=== PATIENT | male | born 1950 | race Caucasian/White ===

== ENCOUNTER → 2016-11-07 | Outpatient (CLI) | payer MEDICARE ==
[2016-11-07 10:52] LABS: Basophils # (A) 0.1 k/uL (0-0.2); Basophils % (A) 1 %; CH 29.2; CHCM 32.5; Eosinophils # (A) 0.1 k/uL (0-0.7); Eosinophils % (A) 2 %; HDW 2.43; HGB 15.1 gm/dL (13.0-17.5); Luc # (Auto) 0.11; Luc % (Auto) 2; Lymphocytes % (A) 15 %; MCH 28.4 pg (25.0-35.0); MCHC 31.5 g/dL (31.0-37.0); MCV 90.2 fL (80.0-100.0); Mean Platelet Volume 6.8; Monocytes # (A) 0.4 k/uL (0-1.0); Monocytes % (A) 6 %; Neutrophils # (A) 4.9 k/uL (1.3-7.7); Neutrophils % (A) 75 %; RBC 5.32 m/uL (4.30-5.90); RDW 13.5 % (11.5-15.5); WBC 6.6 k/uL (3.8-10.6); WBC (Perox) 7.06
[2016-11-07 12:11] LABS: ALT 22 U/L (21-72); AST 13 U/L (17-59); Alkaline Phosphatase 113 U/L (38-126); Anion Gap 7 mmol/L; Blood Urea Nitrogen 14 mg/dL (9-20); Calcium 9.1 mg/dL (8.4-10.2); Carbon Dioxide 30 mmol/L (22-30); Chloride 107 mmol/L (98-107); Cholesterol 197 mg/dL (<200); Glucose 104 mg/dL (74-99); HDL Cholesterol 28 mg/dL (40-60); Non-African American GFR(MDRD) >60 (>60 ml/min/1.73 sqM); Potassium 4.3 mmol/L (3.5-5.1); Sodium 144 mmol/L (137-145); Total Bilirubin 0.5 mg/dL (0.2-1.3); Total Protein 6.1 g/dL (6.3-8.2); Triglycerides 176 mg/dL (<150)
[2016-11-07 12:39] LABS: Prostate Specific Antigen 1.22 ng/mL (0.00-4.00)
[2016-11-07 12:56] LABS: Vitamin B12 291 pg/mL
[2016-11-07 14:04] LABS: Hemoglobin A1C 5.7 % (4.2-6.1)
== END | disposition home or self-care (01) ==
LOC: LABWHC1 10:03
PROVIDERS: ATTEND Family Medicine
DX: E53.8 Deficiency of other specified B group vitamins (principal); N40.0 Benign prostatic hyperplasia without lower urinary tract symptoms; E78.5 Hyperlipidemia, unspecified; J44.9 Chronic obstructive pulmonary disease, unspecified; R73.01 Impaired fasting glucose
CPT/HCPCS: 36415; 80053; 80061; 82607; 82785; 83036; 84153; 84439; 84443; 85025

== ENCOUNTER → 2017-01-07 | Outpatient (CLI) | payer MEDICARE ==
--- NOTE | 2017-01-07 22:57 | CT ---
EXAMINATION TYPE: CT chest wo con DATE OF EXAM: 01/07/2017 7:15 PM COMPARISON: Prior chest CT April 11, 2016 HISTORY: Shortness of breath, chest pain and cough x [address] DLP: 368.60 mGycm. Automated Exposure Control for Dose Reduction was Utilized. TECHNIQUE: CT scan of the thorax is performed without IV contrast. FINDINGS: LUNGS: Advanced emphysematous change in lung apices and upper lungs is redemonstrated. There is some linear scarring or atelectasis towards the lingula on axial image 41 with additional linear scarring or atelectasis in the right lower lobe posterior aspect. No pleural effusion or pneumothorax is prese nt bilaterally. No concerning new parenchymal nodule or mass is identified. MEDIASTINUM: Lack of IV contrast is noted to limit evaluation for mediastinal and especially hilar ad enopathy. There are no definitive greater than 1 cm hilar or mediastinal lymph nodes. No cardiomega ly or pericardial effusion is seen. Coronary artery calcification is present. OTHER: Spurring and disc space narrowing L1-L2 level is noted. IMPRESSION: Advanced emphysematous change in the upper lungs with some mild linear atelectasis or sca rring in the lower lungs, no suspicious acute pulmonary process is seen.
== END | disposition home or self-care (01) ==
LOC: RADCTMAIN 18:56
PROVIDERS: ATTEND Family Medicine
DX: J67.9 Hypersensitivity pneumonitis due to unspecified organic dust (principal)
CPT/HCPCS: 71250

== ENCOUNTER → 2017-07-12 | Outpatient (CLI) | payer MEDICARE ==
[2017-07-12 11:32] LABS: Blood Urea Nitrogen 16 mg/dL (9-20); Non-African American GFR(MDRD) >60 (>60 ml/min/1.73 sqM)
== END | disposition home or self-care (01) ==
LOC: LABWHC1 10:41
PROVIDERS: ATTEND Physical Medicine & Rehabilitation
DX: M48.06 Spinal stenosis, lumbar region (principal); M77.11 Lateral epicondylitis, right elbow; M41.26 Other idiopathic scoliosis, lumbar region; M51.17 Intervertebral disc disorders with radiculopathy, lumbosacral region; M47.27 Other spondylosis with radiculopathy, lumbosacral region; Z79.01 Long term (current) use of anticoagulants
CPT/HCPCS: 36415; 82565; 84520

== ENCOUNTER → 2017-07-26 | Outpatient (CLI) | payer MEDICARE ==
--- NOTE | 2017-07-26 12:52 | FL ---
EXAMINATION TYPE: FL small bowel follow through DATE OF EXAM: 07/26/2017 COMPARISON: NONE HISTORY: Diarrhea for about 6 months TECHNIQUE: Overhead radiographs fluoroscopic spot imaging was performed. Real-time observation was pe rformed. FINDINGS: Pca view: Preliminary abdominal film was obtained and felt to be noncontributory. Follow-through: Following the oral administration of contrast multiple overhead radiographs were obta ined. Portion of the stomach visualized on this examination is unremarkable. Note is made of a small soft reducing sliding type hiatal hernia with minimal reflux. Tiny diverticulum may be on the fundus of the body visualized on the right lateral overhead radiograph. Small bowel follow-through: Transit time to the colon is 2 hours. There is a 5.4 cm diverticulum with in the distal third portion of the duodenum. Fluoroscopic spot imaging is performed over the terminal ileum. Terminal ileum appears somewhat narro wed and has some nodular appearance. Clinical correlation is recommended for Crohn's disease. Ileal a nd jejunal fold pattern appears normal. Real-time observation was performed. These loops of bowel trang ear freely mobile. IMPRESSION: 1. There is some nodularity within the terminal ileum. Correlate for Crohn's disease. 2. Transit time of 2 hours through the small bowel.
== END | disposition home or self-care (01) ==
LOC: RADFLMAIN 08:51
DX: K63.89 Other specified diseases of intestine (principal); R19.7 Diarrhea, unspecified
CPT/HCPCS: 74250

== ENCOUNTER → 2017-09-06 | Outpatient (CLI) | payer MEDICARE ==
--- NOTE | 2017-09-06 16:49 | US ---
EXAMINATION TYPE: US abdomen complete DATE OF EXAM: 09/06/2017 COMPARISON: CLINICAL HISTORY: R14.0 Abd distension. Gassy, unable to burp, NPO EXAM MEASUREMENTS: Liver Length: 18.0 cm Gallbladder Wall: 0.2 cm CHD: 0.5 cm Spleen: 10.6 cm Right Kidney: 12.0 x 5.7 x 4.6 cm Left Kidney: 10.9 x 4.4 x 5.1 cm Pancreas: Obscured by bowel gas Liver: Upper limits in size. Heterogeneous. Two echogenic lesions seen, nonvascular. 1- right lobe = 1.6 x 1.3 x 1.6 cm. 2- Left lobe = 2.4 x 1.8 x 1.9 cm. Gallbladder: wnl Evidence for sonographic Odell's sign: neg CHD: wnl Spleen: wnl Right Kidney: wnl Left Kidney: Cortex appears lobular Upper IVC: wnl Abd Aorta: Portions obscured by overlying bowel gas IMPRESSION: 1. Hyperechoic lesions within the liver most likely on the basis of hemangiomas. This could be confir med with CT abdomen with contrast or MRI. 2. Remainder of the abdomen ultrasound is unremarkable.
== END | disposition home or self-care (01) ==
LOC: RADUSWWP 06:57
PROVIDERS: ATTEND Internal Medicine Gastroenterology
DX: K76.9 Liver disease, unspecified (principal)
CPT/HCPCS: 76700

== ENCOUNTER → 2017-11-18 | Outpatient (CLI) | payer MEDICARE ==
[2017-11-18 11:55] LABS: Basophils % (A) 0 %; Eosinophils # (A) 0.1 k/uL (0-0.7); Eosinophils % (A) 1 %; HCT 49.6 % (39.0-53.0); HGB 15.6 gm/dL (13.0-17.5); Lymphocytes # (A) 1.5 k/uL (1.0-4.8); Lymphocytes % (A) 17 %; MCH 29.1 pg (25.0-35.0); MCHC 31.5 g/dL (31.0-37.0); MCV 92.5 fL (80.0-100.0); Mean Platelet Volume 6.9; Monocytes # (A) 0.5 k/uL (0-1.0); Monocytes % (A) 5 %; Neutrophils # (A) 6.7 k/uL (1.3-7.7); Neutrophils % (A) 76 %; Platelet Count 334 k/uL (150-450); RBC 5.36 m/uL (4.30-5.90); RDW 14.7 % (11.5-15.5); WBC 8.9 k/uL (3.8-10.6)
[2017-11-18 12:10] LABS: ALT 28 U/L (21-72); AST 14 U/L (17-59); Albumin 3.7 g/dL (3.5-5.0); Alkaline Phosphatase 99 U/L (38-126); Anion Gap 8 mmol/L; Blood Urea Nitrogen 25 mg/dL (9-20); Calcium 9.3 mg/dL (8.4-10.2); Carbon Dioxide 30 mmol/L (22-30); Chloride 105 mmol/L (98-107); Cholesterol 199 mg/dL (<200); Glucose 106 mg/dL (74-99); HDL Cholesterol 25 mg/dL (40-60); LDL Cholesterol,Calculated 141 mg/dL (0-99); Sodium 143 mmol/L (137-145); Total Bilirubin 0.6 mg/dL (0.2-1.3); Total Protein 6.5 g/dL (6.3-8.2); Triglycerides 165 mg/dL (<150)
[2017-11-18 12:40] LABS: Prostate Specific Antigen 0.95 ng/mL (0.00-4.00)
== END | disposition home or self-care (01) ==
LOC: LABWHC1 11:34
PROVIDERS: ATTEND Nurse Practitioner Acute Care
DX: Z00.00 Encounter for general adult medical examination without abnormal findings (principal); N40.0 Benign prostatic hyperplasia without lower urinary tract symptoms; E78.5 Hyperlipidemia, unspecified; E55.9 Vitamin D deficiency, unspecified
CPT/HCPCS: 36415; 80053; 80061; 82306; 84153; 84439; 84443; 85025

== ENCOUNTER → 2018-04-17 | Outpatient (CLI) | payer MEDICARE ==
[2018-04-17 07:26] LABS: Basophils % (A) 0 %; Eosinophils # (A) 0.1 k/uL (0-0.7); Eosinophils % (A) 2 %; HCT 43.4 % (39.0-53.0); HGB 14.4 gm/dL (13.0-17.5); Lymphocytes # (A) 1.7 k/uL (1.0-4.8); Lymphocytes % (A) 23 %; MCH 29.4 pg (25.0-35.0); MCHC 33.1 g/dL (31.0-37.0); MCV 88.8 fL (80.0-100.0); Mean Platelet Volume 6.5; Monocytes # (A) 0.6 k/uL (0-1.0); Monocytes % (A) 8 %; Neutrophils # (A) 4.8 k/uL (1.3-7.7); Neutrophils % (A) 64 %; Platelet Count 227 k/uL (150-450); RBC 4.89 m/uL (4.30-5.90); RDW 13.8 % (11.5-15.5); WBC 7.4 k/uL (3.8-10.6)
[2018-04-17 11:43] LABS: Albumin 3.3 g/dL (3.5-5.0); Calcium 8.9 mg/dL (8.4-10.2); Total Bilirubin 0.2 mg/dL (0.2-1.3); Total Protein 5.7 g/dL (6.3-8.2)
[2018-04-17 11:59] LABS: T4, Free (Free Thyroxine) 0.92 ng/dL (0.78-2.19)
[2018-04-17 12:13] LABS: Prostate Specific Antigen 0.68 ng/mL (0.00-4.00)
== END | disposition home or self-care (01) ==
LOC: LABWHC1 06:34
PROVIDERS: ATTEND Family Medicine
DX: E78.5 Hyperlipidemia, unspecified (principal); F41.9 Anxiety disorder, unspecified; I10 Essential (primary) hypertension; R97.20 Elevated prostate specific antigen [PSA]
CPT/HCPCS: 36415; 80053; 80061; 82550; 82607; 84153; 84439; 84443; 85025

== ENCOUNTER → 2018-06-13 | Outpatient (CLI) | payer MEDICARE ==
[2018-06-13 19:11] LABS: Hemoglobin A1C 6.2 % (4.0-6.0)
== END | disposition home or self-care (01) ==
LOC: LABWHC1 11:16
PROVIDERS: ATTEND Family Medicine
DX: R73.09 Other abnormal glucose (principal)
CPT/HCPCS: 36415; 83036

== ENCOUNTER → 2019-05-13 | Outpatient (CLI) | payer MEDICARE ==
--- NOTE | 2019-05-13 16:17 | US ---
EXAMINATION TYPE: US venous doppler duplex LE BI DATE OF EXAM: 05/13/2019 11:24 AM COMPARISON: NONE CLINICAL HISTORY: R79.1 ABN COAGULATION PROFILE. Elevated ddimer. No hx of blood clots. Not on bloo d thinners. SIDE PERFORMED: Bilateral TECHNIQUE: The lower extremity deep venous system is examined utilizing real time linear array sonog blake with graded compression, doppler sonography and color-flow sonography. VESSELS IMAGED: External Iliac Vein (EIV) Common Femoral Vein Deep Femoral Vein Greater Saphenous Vein * Femoral Vein Popliteal Vein Small Saphenous Vein * Proximal Calf Veins (* superficial vessels) Right Leg: Negative for DVT Left Leg: Negative for DVT IMPRESSION: 1. Bilateral lower extremity ultrasound negative for deep venous thrombosis.
== END | disposition home or self-care (01) ==
LOC: RADUSWWP 10:58
PROVIDERS: ATTEND Family Medicine
DX: R79.1 Abnormal coagulation profile (principal)
CPT/HCPCS: 93970

== ENCOUNTER 2019-06-12 14:54 | Inpatient (IN) | payer MEDICARE ==
[2019-06-12] MEDS ORDERED: HEPARIN SODIUM,PORCINE 10,000 UNIT/ML 1 ML VIAL IV ONE (15:03)
[2019-06-12] MEDS ORDERED: HEPARIN SODIUM,PORCINE 5,000 UNIT/ML 1 ML VIAL IV PRN (15:03)
[2019-06-12] MEDS ORDERED: NITROGLYCERIN SL TABS 0.4 MG TAB SUBLINGUAL PRN (15:03)
[2019-06-12] MEDS ORDERED: SODIUM CHLORIDE 0.9% 1,000 ML IV STA (15:03)
[2019-06-12] MEDS ORDERED: ASPIRIN 81 MG PO STA (15:14)
--- NOTE | 2019-06-12 15:22 | ED ---
SOB HPI - General Chief Complaint: Shortness of Breath Stated Complaint: Abnormal CT results Source: patient, RN notes reviewed, old records reviewed Mode of arrival: ambulatory Limitations: no limitations - History of Present Illness Initial Comments: This is a 68-year-old male the ER for evaluation. Patient has history of COPD coming in with what he fell is pneumonia but was sent to CT by primary care for evaluation. Patient does have positive pneumonia also has positive PE. Patient denies any pain currently. No recent travel history no sick contacts no prior history of PE. No fevers cough or congestion. MD Complaint: shortness of breath, chest pain -: days(s) Radiation: back Severity: mild Severity scale (1-10): 2 Quality: aching Consistency: constant Improves With: oxygen Worsens With: exertion, movement Known History Of: COPD Associated Symptoms: chest pain, pain with inspiration, cough Treatments Prior to Arrival: none - Related Data Home Medications Medication Instructions Recorded Confirmed Finasteride [Proscar] 5 mg PO DAILY 10/21/14 06/12/19 Gabapentin [Neurontin] 600 mg PO QA 10/21/14 06/12/19 HYDROcodone/APAP 7.5-325MG [[place] 1 tab PO Q12HR PRN 10/21/14 06/12/19 7.5-325] Lansoprazole 30 mg PO DAILY 10/21/14 06/12/19 Tamsulosin HCl [Flomax] 0.4 mg PO BID 10/21/14 06/12/19 ALPRAZolam [Xanax] 0.25 mg PO HS 04/08/16 06/12/19 Albuterol Inhaler [Ventolin Hfa 2 puff INHALATION RT-Q6H PRN 04/08/16 06/12/19 Inhaler] Losartan/Hydrochlorothiazide 1 tab PO DAILY 04/08/16 06/12/19 [Losartan-Hctz 100-25 mg Tab] Gabapentin 1,200 mg PO HS 04/09/16 06/12/19 traZODone HCL 75 mg PO 04/09/16 06/12/19 ARIPiprazole [Abilify] 5 mg PO DAILY 06/12/19 06/12/19 Albuterol Nebulized [Ventolin 2.5 mg INHALATION RT-Q6H PRN 06/12/19 06/12/19 Nebulized] Furosemide [Lasix] 40 mg PO DAILY 06/12/19 06/12/19 Previous Rx's Medication Instructions Recorded Butalb/APAP/Caff 50-325-40Mg 1 tab PO Q4H PRN #30 tablet 04/14/16 [Fioricet 50-325-40] Allergies Allergy/AdvReac Type Severity Reaction Status Date / Time No Known Allergies Allergy Verified 06/12/19 15:16 Review of Systems ROS Statement: Those systems with pertinent positive or pertinent negative responses have been documented in the HPI. ROS Other: All systems not noted in ROS Statement are negative. Past Medical History Past Medical History: COPD, CVA/TIA, GERD/Reflux, Hyperlipidemia, Hypertension, Osteoarthritis (OA), Prostate Disorder Additional Past Medical History / Comment(s): back pain; restless leg syndrome; stroke about two years ago, TIA, hard of hearing swish and the right side, colonic polyps, diverticulosis. History of Any Multi-Drug Resistant Organisms: None Reported Past Surgical History: Hernia Repair, Orthopedic Surgery Additional Past Surgical History / Comment(s): sinus surgery, colonoscopy and EGD this year that showed a colonic polyps and diverticulosis. Past Anesthesia/Blood Transfusion Reactions: No Reported Reaction Past Psychological History: No Psychological Hx Reported Smoking Status: Former smoker Past Alcohol Use History: None Reported, Occasional Past Drug Use History: None Reported - Past Family History Father History Unknown: Yes Family Medical History: No Reported History, Unable to Obtain (Patient is adopted and does not know much about his family) Mother History Unknown: Yes General Exam Limitations: no limitations General appearance: alert, in no apparent distress Head exam: Present: atraumatic, normocephalic, normal inspection Eye exam: Present: normal appearance, PERRL, EOMI. Absent: scleral icterus, conjunctival injection, periorbital swelling ENT exam: Present: normal exam, mucous membranes moist Neck exam: Present: normal inspection. Absent: tenderness, meningismus, lymp hadenopathy Respiratory exam: Present: normal lung sounds bilaterally. Absent: respiratory distress, wheezes, rales, rhonchi, stridor Cardiovascular Exam: Present: regular rate, normal rhythm, normal heart sounds. Absent: systolic murmur, diastolic murmur, rubs, gallop, clicks GI/Abdominal exam: Present: soft, normal bowel sounds. Absent: distended, tenderness, guarding, rebound, rigid Extremities exam: Present: normal inspection, full ROM, normal capillary refill. Absent: tenderness, pedal edema, joint swelling, calf tenderness Back exam: Present: normal inspection Neurological exam: Present: alert, oriented X3, CN II-XII intact Psychiatric exam: Present: normal affect, normal mood Skin exam: Present: warm, dry, intact, normal color. Absent: rash Course Vital Signs 06/12/19 14:56 Temperature 97.4 F L Pulse Rate 87 Respiratory 18 Rate Blood Pressure 124/79 O2 Sat by Pulse 91 L Oximetry - Reevaluation(s) Reevaluation #1: 06/12/19 15:20 Medical record is reviewed as well as outpatient computed tomography scan Reevaluation #2: 06/12/19 15:[address] Giordano regarding symptoms Reevaluation #3: 06/12/19 16:15 Patient spoke with at length made aware of symptoms Medical Decision Making - Medical Decision Making 18 male the ER for evaluation sent in from outpatient CAT scan for evaluation of PE patient does have positive PE with possible underlying pneumonia - EKG Data -: EKG Interpreted by Me (EKG shows sinus tachycardia rate 103, ID 134, QRS 76, QTc 420) - Radiology Data Radiology results: report reviewed (CT is positive for PE and pneumonia), image reviewed Critical Care Time Critical Care Time: Yes Total Critical Care Time: 31 Disposition Clinical Impression: Acute exacerbation of chronic obstructive airways disease, Acute pulmonary embolism, Community acquired pneumonia Disposition: ADMITTED IP TO THIS HOSP Condition: Serious Is patient prescribed a controlled substance at d/c from ED?: No
[2019-06-12] MEDS ORDERED: AZITHROMYCIN 500 MG in SODIUM CHLORIDE 0.9% 250 ML IVPB STA (16:16)
[2019-06-12] MEDS ORDERED: ALBUTEROL NEBULIZED 2.5 MG/3 ML INHALATION PRN (16:16)
[2019-06-12] MEDS ORDERED: PNEUMONIA PROTOCOL UTILIZED 1 EACH MISC PO PRN (16:16)
[2019-06-12] MEDS ORDERED: IPRATROPIUM-ALBUTEROL 3 ML NEB INHALATION STA (16:16)
[2019-06-12 16:26] LABS: Basophils % (A) 0 %; Eosinophils # (A) 0.1 k/uL (0-0.7); Eosinophils % (A) 2 %; HCT 46.3 % (39.0-53.0); Lymphocytes # (A) 0.6 k/uL (1.0-4.8); Lymphocytes % (A) 7 %; MCH 29.2 pg (25.0-35.0); MCHC 32.5 g/dL (31.0-37.0); MCV 89.8 fL (80.0-100.0); Mean Platelet Volume 6.4; Monocytes # (A) 0.2 k/uL (0-1.0); Monocytes % (A) 2 %; Neutrophils # (A) 8.1 k/uL (1.3-7.7); Neutrophils % (A) 89 %; Platelet Count 246 k/uL (150-450); RBC 5.16 m/uL (4.30-5.90); RDW 13.4 % (11.5-15.5)
[2019-06-12] MEDS: HEPARIN SOD,PORK IN 0.45% NACL 25,000 UNIT in 0.45% NACL 1 250ML.BAG IV SCH (16:31)
[2019-06-12 16:34] LABS: ALT 9 U/L (21-72); AST 13 U/L (17-59); African American GFR (CKD) >90 (>60 ml/min/1.73 sqM); Albumin 3.5 g/dL (3.5-5.0); Alkaline Phosphatase 101 U/L (38-126); Anion Gap 6 mmol/L; Blood Urea Nitrogen 25 mg/dL (9-20); Calcium 8.7 mg/dL (8.4-10.2); Carbon Dioxide 26 mmol/L (22-30); Chloride 107 mmol/L (98-107); Glucose 146 mg/dL (74-99); Non-African American GFR(CKD) 88 (>60 ml/min/1.73 sqM); Potassium 4.2 mmol/L (3.5-5.1); Sodium 139 mmol/L (137-145); Total Bilirubin 0.3 mg/dL (0.2-1.3); Total Protein 6.3 g/dL (6.3-8.2)
[2019-06-12 16:48] LABS: D-Dimer 1.33 mg/L FEU (<0.60); INR 0.9 (<1.2); Partial Thromboplastin Time 22.6 sec (22.0-30.0); Prothrombin Time 9.6 sec (9.0-12.0)
[2019-06-12] MEDS ORDERED: methylPREDNISolone SOD SUCCI 125 MG/2 ML VIAL IV STA (17:12)
[2019-06-12 18:11] VITALS: BMI 55.3
[2019-06-12] MEDS: SODIUM CHLORIDE 0.9% 1,000 ML IV SCH (18:23)
--- NOTE | 2019-06-12 18:47 | P.CNPUL ---
History of Present Illness Consult date: 06/12/19 Reason for consult: pneumonia, pulmonary embolism History of present illness: This 68-year-old male patient known to me due to his advanced COPD with also previous history of pneumothorax back in 2016 requiring a Thoravent insertion. The patient came in thinking that he may be having a pneumonia as the patient was having increased shortness of breath. A CT angiogram was done in the emergency department and the patient was found to have a right lower lobe segmental and subsegmental pulmonary artery embolism. There is also concern of a pneumonia involving in the medial segment of the right lower lobe. The patient was started on a, which Rocephin and Zithromax. The patient was started on IV heparin. The white cell count is at 9.0. The rest of the blood work and electrodes are all within normal limits. The patient has had no fever and pulse oxing 94% liter of oxygen nasal cannula. Review of Systems Constitutional Constitutional: no fever, no night sweats, no significant weight gain, no significant weight loss, exercise intolerance Eyes Eyes: no dry eyes, no vision change, no irritation ENMT Ears: no difficulty hearing, no ear pain Nose: no frequent nosebleeds, no nose problems, no sinus problems Mouth/Throat: no sore throat, no bleeding gums, no snoring, no dry mouth, no mouth ulcers, no oral abnormalities, no teeth problems Cardiovascular Cardiovascular: no chest pain, no arm pain on exertion, no shortness of breath when lying down, no palpitations, no known heart murmur, shortness of breath when walking Respiratory Respiratory: no cough, no wheezing, no coughing up blood, no sleep apnea, shortness of breath Gastrointestinal Gastrointestinal: no abdominal pain, no nausea, no vomiting, no constipation, normal appetite, no diarrhea, not vomiting blood, no dyspepsia, no GERD Genitourinary Genitourinary: no incontinence, no difficulty urinating, no hematuria, no increased frequency Musculoskeletal Musculoskeletal: no muscle aches, no muscle weakness, no arthralgias/joint pain, no back pain, no swelling in the extremities Integumentary Skin: no abnormal mole, no jaundice, no rashes, no laceration Neurologic Neurologic: no loss of consciousness, no weakness, no numbness, no seizures, no dizziness, no migraines, no headaches, no tremor Psychiatric Psych: no depression, no sleep disturbances, feeling safe in a relationship, no alcohol abuse, no anxiety, no hallucinations, no suicidal thoughts Endocrine Endocrine: fatigue Hematologic/Lymphatic Hematologic/Lymphatic no swollen glands, no bruising, no excessive bleeding Allergic/Immunologic Allergy/Immunologic: no runny nose, no sinus pressure, no itching, no hives, no frequent sneezing Past Medical History Past Medical History: COPD, CVA/TIA, GERD/Reflux, Hyperlipidemia, Hypertension, Osteoarthritis (OA), Prostate Disorder Additional Past Medical History / Comment(s): Previous history of a pneumothorax requiring a Thoravent insertion back in 2016, COPD back pain; restless leg syndrome; stroke about two years ago, TIA, hard of hearing right side, colonic polyps, diverticulosis. History of Any Multi-Drug Resistant Organisms: None Reported Past Surgical History: Hernia Repair, Orthopedic Surgery Additional Past Surgical History / Comment(s): sinus surgery, colonoscopy and EGD this year that showed a colonic polyps and diverticulosis. Past Anesthesia/Blood Transfusion Reactions: No Reported Reaction Past Psychological History: No Psychological Hx Reported Smoking Status: Former smoker ([id number] smoking history) Past Alcohol Use History: None Reported, Occasional Past Drug Use History: None Reported - Past Family History Father History Unknown: Yes Family Medical History: No Reported History, Unable to Obtain (Patient is adopted and does not know much about his family) Mother History Unknown: Yes Medications and Allergies Home Medications Medication Instructions Recorded Confirmed Type Finasteride [Proscar] 5 mg PO DAILY 10/21/14 06/12/19 History Gabapentin [Neurontin] 600 mg PO QAM 10/21/14 06/12/19 History HYDROcodone/APAP 7.5-325MG [[place] 1 tab PO Q12HR PRN 10/21/14 06/12/19 History 7.5-325] Lansoprazole 30 mg PO DAILY 10/21/14 06/12/19 History Tamsulosin HCl [Flomax] 0.4 mg PO BID 10/21/14 06/12/19 History ALPRAZolam [Xanax] 0.25 mg PO HS 04/08/16 06/12/19 History Albuterol Inhaler [Ventolin Hfa 2 puff INHALATION RT-Q6H PRN 04/08/16 06/12/19 History Inhaler] Losartan/Hydrochlorothiazide 1 tab PO DAILY 04/08/16 06/12/19 History [Losartan-Hctz 100-25 mg Tab] Gabapentin 1,200 mg PO HS 04/09/16 06/12/19 History traZODone HCL 75 mg PO HS 04/09/16 06/12/19 History Butalb/APAP/Caff 50-325-40Mg 1 tab PO Q4H PRN #30 tablet 04/14/16 06/12/19 Rx [Fioricet 50-325-40] ARIPiprazole [Abilify] 5 mg PO DAILY 06/12/19 06/12/19 History Albuterol Nebulized [Ventolin 2.5 mg INHALATION RT-Q6H PRN 06/12/19 06/12/19 History Nebulized] Furosemide [Lasix] 40 mg PO DAILY 06/12/19 06/12/19 History Allergies Allergy/AdvReac Type Severity Reaction Status Date / Time No Known Allergies Allergy Verified 06/12/19 15:16 Physical Exam Vitals: Vital Signs Temp Pulse Resp BP Pulse Ox 06/12/19 16:25 83 16 134/86 94 L 06/12/19 14:56 97.4 F L 87 18 124/79 91 L Intake and Output 06/12/19 06/12/19 06/12/19 06:59 14:59 22:59 Other: Weight 81.647 kg General Appearance no diaphoresis, no respiratory distress, speech not interrupted by breaths, no dyspnea, no pallor, not cachectic, well nourished, appears well Head exam was generally normal. There was no scleral icterus or corneal arcus. Mucous membranes were moist. HEENT no pursed lip breathing, no jugular venous distention, no mucous membrane cyanosis, no perioral cyanosis, mallampati classification: class 1 Chest no barrel chest, no retractions, no sternocleidomastoid muscle contractions, no supraclavicular retractions, no intercostal retractions, no decreased air movement, no rhonchi, no hyperinflation, prolonged expiratory wheezing, decreased air movement Heart no right ventricular heave, no distant heart sounds, no s3 gallop GI bowel sounds: hyperactive (borborygmi), bowel sounds: diminished or absent Extremities no cyanosis, no clubbing, no edema, my normal extremities Neurologic no decreased mental status, no somnolence, no confusion Examination of the skin revealed no evidence of significant rashes, suspicious appearing nevi or other concerning lesions. Results - Laboratory Findings CBC and BMP: 06/12/19 16:13 06/12/19 16:13 Abnormal lab findings: Abnormal Labs 06/12/19 06/12/19 16:13 16:13 Neutrophils # 8.1 H Lymphocytes # 0.6 L BUN 25 H Glucose 146 H AST 13 L ALT 9 L - Diagnostic Findings CT scan - chest: image reviewed Assessment and Plan Plan: 1 right lower lobe pneumonia medial basilar segment of the right lower lobe. Doubt malignancy 2 questionable pulmonary embolism involving segmental and subsegmental branches of the right lower lobe pulmonary artery 3 advanced COPD with bullous changes involving the upper lobes with an FEV1 of 64% of predicted 4 previous history of right-sided pneumothorax requiring a Thoravent insertion and subsequent removal 5 hypertension 6 hyperlipidemia 7 BPH 8 TIA/stroke approximately 2 years ago 9 diverticulosis and history of colonic polyps Plan Obtain Doppler of the lower extremities. Obtain d-dimer is. Continued IV heparin. Continue antibiotic coverage. We'll continue to follow.
[2019-06-12] MEDS: IPRATROPIUM-ALBUTEROL 3 ML NEB INHALATION SCH (19:25)
[2019-06-12] MEDS ORDERED: traZODone HCL 50 MG TAB PO SCH (22:30)
[2019-06-12] MEDS ORDERED: LOSARTAN-HCTZ 50-12.5 MG 1 EACH TAB PO SCH (22:30)
[2019-06-12] MEDS: HYDROcodone/APAP 7.5-325MG 1 EACH TAB PO PRN (22:45)
[2019-06-12] MEDS: TAMSULOSIN 0.4 MG CAP.ER.24H PO SCH (22:45)
[2019-06-12] MEDS: ALPRAZolam 0.25 MG TAB PO SCH (22:46)
[2019-06-12] MEDS: FINASTERIDE 5 MG TAB PO SCH (22:49)
[2019-06-13] MEDS: methylPREDNISolone SOD SUCCI 125 MG/2 ML VIAL IV SCH ×5 (00:25→23:31)
[2019-06-13] MEDS: GABAPENTIN 400 MG CAP PO SCH ×2 (00:25→21:16)
[2019-06-13] MEDS: BUTALB/APAP/CAFF 50-325-40MG TAB PO PRN (04:18)
[2019-06-13 06:22] LABS: Glucose,Whole Blood 168 mg/dL (75-99)
[2019-06-13] MEDS: INSULIN ASPART (NovoLOG) 100 UNIT/ML VIAL SQ SCH ×4 (06:23→21:15)
[2019-06-13 06:40] LABS: Basophils % (A) 0 %; Eosinophils # (A) 0.1 k/uL (0-0.7); Eosinophils % (A) 1 %; HCT 45.9 % (39.0-53.0); HGB 15.1 gm/dL (13.0-17.5); Lymphocytes # (A) 0.9 k/uL (1.0-4.8); Lymphocytes % (A) 5 %; MCH 29.5 pg (25.0-35.0); MCHC 32.9 g/dL (31.0-37.0); MCV 89.4 fL (80.0-100.0); Mean Platelet Volume 6.7; Monocytes # (A) 0.2 k/uL (0-1.0); Monocytes % (A) 1 %; Neutrophils # (A) 16.4 k/uL (1.3-7.7); Neutrophils % (A) 93 %; Platelet Count 256 k/uL (150-450); RBC 5.13 m/uL (4.30-5.90); WBC 17.6 k/uL (3.8-10.6)
[2019-06-13 06:44] LABS: INR 0.9 (<1.2); Partial Thromboplastin Time 49.4 sec (22.0-30.0); Prothrombin Time 10.2 sec (9.0-12.0)
[2019-06-13 07:01] LABS: African American GFR (CKD) >90 (>60 ml/min/1.73 sqM); Anion Gap 6 mmol/L; Blood Urea Nitrogen 23 mg/dL (9-20); Calcium 9.2 mg/dL (8.4-10.2); Carbon Dioxide 25 mmol/L (22-30); Chloride 109 mmol/L (98-107); Cholesterol 229 mg/dL (<200); Glucose 178 mg/dL (74-99); HDL Cholesterol 35 mg/dL (40-60); LDL Cholesterol,Calculated 169 mg/dL (0-99); Non-African American GFR(CKD) >90 (>60 ml/min/1.73 sqM); Sodium 140 mmol/L (137-145); Triglycerides 124 mg/dL (<150)
--- NOTE | 2019-06-13 07:09 | XR ---
EXAMINATION TYPE: XR chest 2V DATE OF EXAM: 06/13/2019 HISTORY: pneumonia. REFERENCE: Previous study dated 04/14/2016. FINDINGS: Lung volumes are prominent. There is bullous change present in the right lung. There is bib asilar atelectasis. The heart is not enlarged. There is chronic blunting of the right CP angle. IMPRESSION: 1. COPD WITH BULLOUS CHANGE IN THE RIGHT LUNG. 2. BIBASILAR ATELECTASIS.
[2019-06-13] MEDS: IPRATROPIUM-ALBUTEROL 3 ML NEB INHALATION SCH ×4 (07:58→19:19)
[2019-06-13] MEDS: TAMSULOSIN 0.4 MG CAP.ER.24H PO SCH ×2 (08:16→21:16)
[2019-06-13] MEDS: ARIPiprazole 5 MG TAB PO SCH ×2 (08:16→10:00)
[2019-06-13] MEDS: FUROSEMIDE 40 MG TAB PO SCH (08:16)
[2019-06-13] MEDS: ASPIRIN 325 MG TAB PO SCH (08:16)
[2019-06-13] MEDS: GABAPENTIN 300 MG CAP PO SCH (08:16)
[2019-06-13] MEDS: HYDROcodone/APAP 7.5-325MG 1 EACH TAB PO PRN (08:17)
[2019-06-13] MEDS: HEPARIN SOD,PORK IN 0.45% NACL 25,000 UNIT in 0.45% NACL 1 250ML.BAG IV SCH (08:20)
[2019-06-13] MEDS ORDERED: FINASTERIDE 5 MG TAB PO SCH (09:00)
--- NOTE | 2019-06-13 09:27 | US ---
EXAMINATION TYPE: US venous doppler duplex LE DATE OF EXAM: 06/13/2019 8:30 AM COMPARISON: Previous study dated 05/13/2019. CLINICAL HISTORY: PE. No swelling or h/o dvt, leg always hurt, possible PE SIDE PERFORMED: Bilateral TECHNIQUE: The lower extremity deep venous system is examined utilizing real time linear array sonog blake with graded compression, doppler sonography and color-flow sonography. VESSELS IMAGED: External Iliac Vein (EIV) Common Femoral Vein Deep Femoral Vein Greater Saphenous Vein * Femoral Vein Popliteal Vein Small Saphenous Vein * Proximal Calf Veins (* superficial vessels) Right Leg: Appears negative for DVT Left Leg: Appears negative for DVT, filling defect noted at left CFV valve No popliteal fossa lesion is seen. IMPRESSION: THIS EXAMINATION IS NEGATIVE FOR DVT IN BOTH LEGS.
--- NOTE | 2019-06-13 11:17 | P.HPIM ---
History of Present Illness H&P Date: 06/13/19 Chief Complaint: Shortness of breath This is 68 years old male who presented to the emergency department with worsening shortness breath. Patient is home oxygen dependent was diagnosed with portal bullous emphysema long time ago and has been followed by pulmonary outpatient who noticed worsening shortness of breath so slowly and gradually patient was having fatigue and weakness and productive cough for yellow sputum and decided to come into the emergency department where computed tomography scan was done and showed possible pulmonary embolism and right lower lobe pneumonia. Patient was started on antibiotics, heparin drip and placed on the medical floor for further evaluation. Patient is denying tobacco alcohol or drug abuse stated that he is at least 50% improved since yesterday. Patient tried all the conservative management at home with breathing treatment R increasing oxygen without improvement in his shortness breath and decided to come into the emergen cy department. Patient stated that he's compliment with his medication and doctors follow-up Review of Systems All 14 systems reviewed and negative except as above Past Medical History Past Medical History: COPD, CVA/TIA, GERD/Reflux, Hyperlipidemia, Hypertension, Osteoarthritis (OA), Prostate Disorder Additional Past Medical History / Comment(s): Previous history of a pneumothorax requiring a Thoravent insertion back in 2016, COPD back pain; restless leg syndrome; stroke about two years ago, TIA, hard of hearing right side, colonic polyps, diverticulosis. History of Any Multi-Drug Resistant Organisms: None Reported Past Surgical History: Hernia Repair, Orthopedic Surgery Additional Past Surgical History / Comment(s): sinus surgery, colonoscopy and EGD this year that showed a colonic polyps and diverticulosis. Past Anesthesia/Blood Transfusion Reactions: No Reported Reaction Past Psychological History: No Psychological Hx Reported Smoking Status: Former smoker (94-pzqb-pore smoking history) Past Alcohol Use History: None Reported, Occasional Past Drug Use History: None Reported - Past Family History Father History Unknown: Yes Family Medical History: No Reported History, Unable to Obtain (Patient is adopt ed and does not know much about his family) Mother History Unknown: Yes Medications and Allergies Home Medications Medication Instructions Recorded Confirmed Type Finasteride [Proscar] 5 mg PO DAILY 10/21/14 06/12/19 History Gabapentin [Neurontin] 600 mg PO QAM 10/21/14 06/12/19 History HYDROcodone/APAP 7.5-325MG [Wyckoff 1 tab PO Q12HR PRN 10/21/14 06/12/19 History 7.5-325] Lansoprazole 30 mg PO DAILY 10/21/14 06/12/19 History Tamsulosin HCl [Flomax] 0.4 mg PO BID 10/21/14 06/12/19 History ALPRAZolam [Xanax] 0.25 mg PO HS 04/08/16 06/12/19 History Albuterol Inhaler [Ventolin Hfa 2 puff INHALATION RT-Q6H PRN 04/08/16 06/12/19 History Inhaler] Losartan/Hydrochlorothiazide 1 tab PO DAILY 04/08/16 06/12/19 History [Losartan-Hctz 100-25 mg Tab] Gabapentin 1,200 mg PO HS 04/09/16 06/12/19 History traZODone HCL 75 mg PO HS 04/09/16 06/12/19 History Butalb/APAP/Caff 50-325-40Mg 1 tab PO Q4H PRN #30 tablet 04/14/16 06/12/19 Rx [Fioricet 50-325-40] ARIPiprazole [Abilify] 5 mg PO DAILY 06/12/19 06/12/19 History Albuterol Nebulized [Ventolin 2.5 mg INHALATION RT-Q6H PRN 06/12/19 06/12/19 History Nebulized] Furosemide [Lasix] 40 mg PO DAILY 06/12/19 06/12/19 History Allergies Allergy/AdvReac Type Severity Reaction Status Date / Time No Known Allergies Allergy Verified 06/12/19 15:16 Physical Exam Vitals: Vital Signs Temp Pulse Pulse Resp BP BP Pulse Ox 06/13/19 08:13 100 06/13/19 08:00 97.5 F L 100 102 H 18 142/96 90 L 06/13/19 04:00 97.9 F 101 H 18 129/86 06/13/19 00:00 97.9 F 105 H 18 148/100 06/12/19 20:00 97.9 F 106 H 18 162/107 06/12/19 19:33 96 06/12/19 19:27 95 06/12/19 16:34 97.6 F 82 18 131/94 06/12/19 16:25 83 16 134/86 94 L 06/12/19 14:56 97.4 F L 87 18 124/79 91 L Intake and Output 06/12/19 06/13/19 06/13/19 22:59 06:59 14:59 Intake Total 240 472.442 Output Total 950 240 Balance 240 -950 232.442 Intake: Intake, IV Titration 232.442 Amount Heparin Sod,Pork in 0.45% 232.442 NaCl 25,000 unit In 0.45 % NaCl 1 250ml.bag @ 18 UNITS/KG/HR 14.696 mls/hr IV .Q17H1M [facility] Rx#: [id number] Oral 240 240 Output: Urine 950 240 Other: Voiding Method Urinal Toilet Urinal # Voids 2 Weight 83 kg Gen.: in stated age, no acute distress Heart: Normal S1-S2 Lungs: Diminished bilaterally with decreased air entry Abdomen: Soft, no tenderness, positive bowel sounds in all 4 quadrant no guarding or rebound Skin: No new rash Psych: Alert and oriented 3 Neuro: No focal deficit Results CBC & Chem 7: 06/13/19 06:19 06/13/19 06:19 Labs: Abnormal Lab Results - Last 24 Hours (Table) 06/12/19 06/12/19 06/12/19 Range/Units 16:13 16:13 16:13 WBC (3.8-10.6) k/uL Neutrophils # 8.1 H (1.3-7.7) k/uL Lymphocytes # 0.6 L (1.0-4.8) k/uL APTT (22.0-30.0) sec D-Dimer 1.33 H (<0.60) mg/L FEU Chloride (98-107) mmol/L BUN 25 H (9-20) mg/dL Glucose 146 H (74-99) mg/dL POC Glucose (mg/dL) (75-99) mg/dL AST 13 L (17-59) U/L ALT 9 L (21-72) U/L Cholesterol (<200) mg/dL LDL Cholesterol, Calc (0-99) mg/dL HDL Cholesterol (40-60) mg/dL 06/12/19 06/13/19 06/13/19 Range/Units 21:20 06:19 06:19 WBC 17.6 H (3.8-10.6) k/uL Neutrophils # 16.4 H (1.3-7.7) k/uL Lymphocytes # 0.9 L (1.0-4.8) k/uL APTT 60.3 H 49.4 H (22.0-30.0) sec D-Dimer (<0.60) mg/L FEU Chloride (98-107) mmol/L BUN (9-20) mg/dL Glucose (74-99) mg/dL POC Glucose (mg/dL) (75-99) mg/dL AST (17-59) U/L ALT (21-72) U/L Cholesterol (<200) mg/dL LDL Cholesterol, Calc (0-99) mg/dL HDL Cholesterol (40-60) mg/dL 06/13/19 06/13/19 Range/Units 06:19 06:21 WBC (3.8-10.6) k/uL Neutrophils # (1.3-7.7) k/uL Lymphocytes # (1.0-4.8) k/uL APTT (22.0-30.0) sec D-Dimer (<0.60) mg/L FEU Chloride 109 H (98-107) mmol/L BUN 23 H (9-20) mg/dL Glucose 178 H (74-99) mg/dL POC Glucose (mg/dL) 168 H (75-99) mg/dL AST (17-59) U/L ALT (21-72) U/L Cholesterol 229 H (<200) mg/dL LDL Cholesterol, Calc 169 H (0-99) mg/dL HDL Cholesterol 35 L (40-60) mg/dL Thrombosis Risk Factor Assmnt - Choose All That Apply Any of the Below Risk Factors Present?: Yes Each Factor Represents 1 point: Abnormal pulmonary function (COPD) Each Risk Factor Represents 2 Points: Age 61-74 years Thrombosis Risk Factor Assessment Total Risk Factor Score: 3 Thrombosis Risk Factor Assessment Level: Moderate Risk Assessment and Plan Assessment: 1. Acute pulmonary embolism area 2. Community-acquired pneumonia. 3. Leukocytosis. 4. Acute on chronic respiratory failure with hypoxia he had 5. Hypertension. 6. Hyperlipidemia. 7. Benign prostatic hypertrophy. 8. Advanced COPD. Plan discussed with the pulmonary and patient at the bedside where we would like to continue with IV antibiotics for 24 hours if patient's continued to improve in the morning we can switch him to Levaquin and consider discharging based on clinical progress. Patient is hemodynamically stable without hypoxia tolerating heparin drip that I would like to continue for 24 hours consider switching patient's to liquids 5 mg twice daily recommended by pulmonary without bolus to be done outpatient and followed in the office. Patient understood risk and benefit from current treatment and specially from blood thinner and he is agreeable to the current treatment plan. We'll resume his home medication with holding parameters. Continue aggressive pulmonary hygiene. Would continue with supplemental oxygen. We'll consider discharge based on clinical progress
[2019-06-13 12:10] LABS: Glucose,Whole Blood 160 mg/dL (75-99)
--- NOTE | 2019-06-13 12:22 | P.PN ---
Subjective Progress Note Date: 06/13/19 This 68-year-old male patient known to me due to his advanced COPD with also previous history of pneumothorax back in 2016 requiring a Thoravent insertion. The patient came in thinking that he may be having a pneumonia as the patient was having increased shortness of breath. A CT angiogram was done in the emergency department and the patient was found to have a right lower lobe segmental and subsegmental pulmonary artery embolism. There is also concern of a pneumonia involving in the medial segment of the right lower lobe. The patient was started on a, which Rocephin and Zithromax. The patient was started on IV heparin. The white cell count is at 9.0. The rest of the blood work and electrodes are all within normal limits. The patient has had no fever and pulse oxing 94% liter of oxygen nasal cannula. On 06/13/2019 clinically the patient is feeling better. Is less short of breath is on IV heparin. He is also on antibiotics. He is being treated for questionable pulmonary embolism and limited right lower lobe pneumonia. Doppler of the lower extremities was negative. D-dimer was slightly elevated. No chest pain. No fever. No chills. White cell count is up to 17. Objective - Vital Signs Vital signs: Vital Signs Temp 97.4 F L 06/13/19 11:50 Pulse 96 06/13/19 12:20 Resp 20 06/13/19 11:50 BP 144/98 06/13/19 11:50 Pulse Ox 90 L 06/13/19 11:50 Intake & Output 06/12/19 06/13/19 06/13/19 18:59 06:59 18:59 Intake Total 240 472.442 Output Total 950 240 Balance -710 232.442 Weight 81.647 kg 83 kg Intake: Intake, IV Titration 232.442 Amount Heparin Sod,Pork in 0.45% 232.442 NaCl 25,000 unit In 0.45 % NaCl 1 250ml.bag @ 18 UNITS/KG/HR 14.696 mls/hr IV .Q17H1M [facility] Rx#: [id number] Oral 240 240 Output: Urine 950 240 Other: Voiding Method Urinal Toilet Urinal # Voids 2 - Exam General Appearance no diaphoresis, no respiratory distress, speech not interrupted by breaths, no dyspnea, no pallor, not cachectic, well nourished, appears well Head exam was generally normal. There was no scleral icterus or corneal arcus. Mucous membranes were moist. HEENT no pursed lip breathing, no jugular venous distention, no mucous membrane cyanosis, no perioral cyanosis, mallampati classification: class 1 Chest no barrel chest, no retractions, no sternocleidomastoid muscle contractions, no supraclavicular retractions, no intercostal retractions, no decreased air movement, no rhonchi, no hyperinflation, prolonged expiratory wheezing, decreased air movement Heart no right ventricular heave, no distant heart sounds, no s3 gallop GI bowel sounds: hyperactive (borborygmi), bowel sounds: diminished or absent Extremities no cyanosis, no clubbing, no edema, my normal extremities Neurologic no decreased mental status, no somnolence, no confusion Examination of the skin revealed no evidence of significant rashes, suspicious appearing nevi or other concerning lesions. - Labs CBC & Chem 7: 06/13/19 06:06/13/19:19 Labs: Abnormal Lab Results - Last 24 Hours (Table) 06/12/19 06/12/19 06/12/19 Range/Units 16:13 16:13 16:13 WBC (3.8-10.6) k/uL Neutrophils # 8.1 H (1.3-7.7) k/uL Lymphocytes # 0.6 L (1.0-4.8) k/uL APTT (22.0-30.0) sec D-Dimer 1.33 H (<0.60) mg/L FEU Chloride (98-107) mmol/L BUN 25 H (9-20) mg/dL Glucose 146 H (74-99) mg/dL POC Glucose (mg/dL) (75-99) mg/dL AST 13 L (17-59) U/L ALT 9 L (21-72) U/L Cholesterol (<200) mg/dL LDL Cholesterol, Calc (0-99) mg/dL HDL Cholesterol (40-60) mg/dL 06/12/19 06/13/19 06/13/19 Range/Units 21:20 06:19 06:19 WBC 17.6 H (3.8-10.6) k/uL Neutrophils # 16.4 H (1.3-7.7) k/uL Lymphocytes # 0.9 L (1.0-4.8) k/uL APTT 60.3 H 49.4 H (22.0-30.0) sec D-Dimer (<0.60) mg/L FEU Chloride (98-107) mmol/L BUN (9-20) mg/dL Glucose (74-99) mg/dL POC Glucose (mg/dL) (75-99) mg/dL AST (17-59) U/L ALT (21-72) U/L Cholesterol (<200) mg/dL LDL Cholesterol, Calc (0-99) mg/dL HDL Cholesterol (40-60) mg/dL 06/13/19 06/13/19 06/13/19 Range/Units 06:19 06:21 11:47 WBC (3.8-10.6) k/uL Neutrophils # (1.3-7.7) k/uL Lymphocytes # (1.0-4.8) k/uL APTT (22.0-30.0) sec D-Dimer (<0.60) mg/L FEU Chloride 109 H (98-107) mmol/L BUN 23 H (9-20) mg/dL Glucose 178 H (74-99) mg/dL POC Glucose (mg/dL) 168 H 160 H (75-99) mg/dL AST (17-59) U/L ALT (21-72) U/L Cholesterol 229 H (<200) mg/dL LDL Cholesterol, Calc 169 H (0-99) mg/dL HDL Cholesterol 35 L (40-60) mg/dL Assessment and Plan Plan: 1 right lower lobe pneumonia medial basilar segment of the right lower lobe. Doubt malignancy 2 questionable pulmonary embolism involving segmental and subsegmental branches of the right lower lobe pulmonary artery 3 advanced COPD with bullous changes involving the upper lobes with an FEV1 of 64% of predicted 4 previous history of right-sided pneumothorax requiring a Thoravent insertion and subsequent removal 5 hypertension 6 hyperlipidemia 7 BPH 8 TIA/stroke approximately 2 years ago 9 diverticulosis and history of colonic polyps Plan We'll treat this patient with a short course of antibiotic ventilation with Eliquis for the next 3 months. Antibiotics will be continued IV for another 24 hours. Doppler of the lower extremities negative. Clinically improving. C ontinue bronchodilators. We'll start tapering steroids and switch him to oral antibiotics in a.m. We'll continue to follow.
[2019-06-13] MEDS ORDERED: HYDROcodone/APAP 7.5-325MG 1 EACH TAB PO PRN (12:29)
[2019-06-13] MEDS: HYDROcodone/APAP 5-325MG 1 EACH TAB PO PRN ×2 (13:22→21:16)
--- NOTE | 2019-06-13 14:13 | ECHOF ---
Referral Reason:pul embolism MEASUREMENTS -------- HEIGHT: 180.3 cm WEIGHT: 82.6 kg BP: IVSd: 1.1 cm (0.6 - 1.1) LVIDd: 4.3 cm (3.9 - 5.3) LVPWd: 1.3 cm (0.6 - 1.1) IVSs: 1.8 cm LVIDs: 2.5 cm LVPWs: 1.7 cm RVIDd: 3.2 cm (< 3.3) LAESV Index (A-L): 12.15 ml/m Ao Diam: 3.2 cm (2.0 - 3.7) LA Diam: 3.8 cm (2.7 - 3.8) AV Cusp: 2.2 cm (1.5 - 2.6) EPSS: 0.5 cm MV E Tay: 0.56 m/s MV DecT: 128 ms MV A Tay: 1.09 m/s MV E/A Ratio: 0.51 RAP: 5.00 mmHg RVSP: 26.52 mmHg MV EF SLOPE: 79.41 mm/s (70 - 150) MV EXCURSION: 17.70 mm (> 18.000) FINDINGS -------- Sinus rhythm. This was a technically good study. The left ventricular size is normal. There is mild concentric left ventricular hypertrophy. Overa ll left ventricular systolic function is normal with, an EF between 55 - 60 %. The right ventricle is normal in size. The left atrial size is normal. The right atrial size is normal. Interatrial and interventricular septum intact. The aortic valve is trileaflet and appears structurally normal. The mitral valve is normal. There is trace mitral regurgitation. Trace tricuspid regurgitation present. Right ventricular systolic pressure is normal at < 35 mmHg. There is no pulmonic regurgitation present. The aortic root size is normal. IVC Not well visulized. There is no pericardial effusion. CONCLUSIONS -------- 1. Sinus rhythm. 2. This was a technically good study. 3. The left ventricular size is normal. 4. There is mild concentric left ventricular hypertrophy. 5. Overall left ventricular systolic function is normal with, an EF between 55 - 60 %. 6. The right ventricle is normal in size. 7. The left atrial size is normal. 8. The right atrial size is normal. 9. Interatrial and interventricular septum intact. 10. The aortic valve is trileaflet and appears structurally normal. 11. The mitral valve is normal. 12. There is trace mitral regurgitation. 13. Trace tricuspid regurgitation present. 14. Right ventricular systolic pressure is normal at < 35 mmHg. 15. There is no pulmonic regurgitation present. 16. The aortic root size is normal. 17. IVC Not well visulized. 18. There is no pericardial effusion. MATHEMATICS TEACHER: Tere Paiz RDCS
--- NOTE | 2019-06-13 15:51 | P.CRDCN ---
History of Present Illness Consult date: 06/13/19 Reason for Consult (text): Pulmonary emboli History of present illness: The patient is a 68-year-old male with past medical history of COPD, CVA, GERD, hyperlipidemia, and hypertension, who presented to the hospital with worsening shortness of breath. He states over the past week shortness of breath had worsened with productive cough. Computed tomography scan showed possible pulmonary emboli and right lower lobe pneumonia. He was started on antibiotics and heparin drip. Doppler of lower extremities was negative for DVT. D-dimer was slightly elevated and his white count continues to rise. On exam today he states he is significantly improved. He continues to have mild shortness of breath. He denies any chest pain, chest pressure, palpitations, dizziness, or vertigo. PAST MEDICAL HISTORY: Bullous emphysema with home oxygen, CVA, GERD, hyperlipidemia, and hypertension REVIEW OF SYSTEMS: No fever or chills. No cough or expectoration. No diaphoresis. Patient denies headache, dizziness, blurred vision, double vision. Patient denies any stomach discomfort. No nausea, vomiting. No hematochezia. No hematemesis. Denies any black stools or blood in his stools. Denies dysuria or hematuria. No muscle weakness or numbness. PHYSICAL EXAMINATION: This is a []-year-old [] in no apparent distress at the time of my examination. HEENT: Head is atraumatic, normocephalic. Pupils are equal, round. Sclerae anict santos. Conjunctivae are clear. Mucous membranes of the mouth are moist. Neck is supple. There is no jugular venous distention. No carotid bruit is heard. CHEST EXAMINATION: Right lower lobe diminished. No chest wall tenderness is noted on palpation or with deep breathing. HEART EXAMINATION: Heart regular rate and rhythm. S1, S2 heard. No murmurs, gallops or rub. ABDOMEN: Soft, nontender. Bowel sounds are heard. No organomegaly noted. EXTREMITIES: 2+ peripheral pulses with no evidence of peripheral edema and no calf tenderness noted. NEUROLOGIC EXAMINATION: Patient is awake, alert and oriented x3. EKG shows sinus rhythm with a heart rate of 103 Echocardiogram shows normal LV function without significant valvular abnormalities LABORATORY DATA: WBC 17.6, hemoglobin 15.1, hematocrit 45.9, platelet 256, d-dimer 1.33, sodium 140, potassium 4.0, BUN 23, creatinine 0.72, triglycerides 124, LDL 169 FINAL ASSESSMENT AND PLAN: #1 shortness of breath, possible pulmonary emboli, management per pulmonology #2 hypertension, well controlled #3 dyslipidemia, currently noncompliant with statin PLAN: Continue current medication regimen. Patient states he will resume his statin medication. Pulmonary emboli management per pulmonology recommendations. No further recommendations from the cardiac standpoint. Past Medical History Past Medical History: COPD, CVA/TIA, GERD/Reflux, Hyperlipidemia, Hypertension, Osteoarthritis (OA), Prostate Disorder Additional Past Medical History / Comment(s): Previous history of a pneumothorax requiring a Thoravent insertion back in 2016, COPD back pain; restless leg syndrome; stroke about two years ago, TIA, hard of hearing right side, colonic polyps, diverticulosis. History of Any Multi-Drug Resistant Organisms: None Reported Past Surgical History: Hernia Repair, Orthopedic Surgery Additional Past Surgical History / Comment(s): sinus surgery, colonoscopy and EGD this year that showed a colonic polyps and diverticulosis. Past Anesthesia/Blood Transfusion Reactions: No Reported Reaction Past Psychological History: No Psychological Hx Reported Smoking Status: Former smoker ([id number] smoking history) Past Alcohol Use History: None Reported, Occasional Past Drug Use History: None Reported - Past Family History Father History Unknown: Yes Family Medical History: No Reported History, Unable to Obtain (Patient is adopted and does not know much about his family) Mother History Unknown: Yes Medications and Allergies Home Medications Medication Instructions Recorded Confirmed Type Finasteride [Proscar] 5 mg PO DAILY 10/21/14 06/12/19 History Gabapentin [Neurontin] 600 mg PO QAM 10/21/14 06/12/19 History HYDROcodone/APAP 7.5-325MG [[place] 1 tab PO Q12HR PRN 10/21/14 06/12/19 History 7.5-325] Lansoprazole 30 mg PO DAILY 10/21/14 06/12/19 History Tamsulosin HCl [Flomax] 0.4 mg PO BID 10/21/14 06/12/19 History ALPRAZolam [Xanax] 0.25 mg PO HS 04/08/16 06/12/19 History Albuterol Inhaler [Ventolin Hfa 2 puff INHALATION RT-Q6H PRN 04/08/16 06/12/19 History Inhaler] Losartan/Hydrochlorothiazide 1 tab PO DAILY 04/08/16 06/12/19 History [Losartan-Hctz 100-25 mg Tab] Gabapentin 1,200 mg PO HS 04/09/16 06/12/19 History traZODone HCL 75 mg PO HS 04/09/16 06/12/19 History Butalb/APAP/Caff 50-325-40Mg 1 tab PO Q4H PRN #30 tablet 04/14/16 06/12/19 Rx [Fioricet 50-325-40] ARIPiprazole [Abilify] 5 mg PO DAILY 06/12/19 06/12/19 History Albuterol Nebulized [Ventolin 2.5 mg INHALATION RT-Q6H PRN 06/12/19 06/12/19 History Nebulized] Furosemide [Lasix] 40 mg PO DAILY 06/12/19 06/12/19 History Allergies Allergy/AdvReac Type Severity Reaction Status Date / Time No Known Allergies Allergy Verified 06/12/19 15:16 Physical Exam Vitals: Vital Signs Temp Pulse Pulse Resp BP BP Pulse Ox 06/13/19 15:38 90 06/13/19 15:31 92 L 06/13/19 15:29 92 06/13/19 12:20 96 06/13/19 12:11 96 06/13/19 11:50 97.4 F L 99 20 144/98 90 L 06/13/19 08:13 100 06/13/19 08:00 97.5 F L 100 102 H 18 142/96 90 L 06/13/19 04:00 97.9 F 101 H 18 129/86 06/13/19 00:00 97.9 F 105 H 18 148/100 06/12/19 20:00 97.9 F 106 H 18 162/107 06/12/19 19:33 96 06/12/19 19:27 95 06/12/19 16:34 97.6 F 82 18 131/94 06/12/19 16:25 83 16 134/86 94 L Intake and Output 06/13/19 06/13/19 06/13/19 06:59 14:59 22:59 Intake Total 472.442 Output Total 950 240 Balance -950 232.442 Intake: Intake, IV Titration 232.442 Amount Heparin Sod,Pork in 0.45% 232.442 NaCl 25,000 unit In 0.45 % NaCl 1 250ml.bag @ 18 UNITS/KG/HR 14.696 mls/hr IV .Q17H1M [facility] Rx#: [id number] Oral 240 Output: Urine 950 240 Other: Voiding Method Toilet Urinal # Voids 2 Weight 83 kg Results 06/13/19 06:06/13/19 06: Cardiac Enzymes 06/12/19 06/12/19 06/12/19 Range/Units 16:13 16: 21: AST 13 L (17-59) U/L Troponin I <0.012 <0.012 (0.000-0.034) ng/mL Coagulation 06/12/19 06/12/19 06/13/19 Range/Units 16: 21:20 06: PT 9.6 10.2 (9.0-12.0) sec APTT 22.6 60.3 H 49.4 H (22.0-30.0) sec Lipids 06/13/19 Range/Units 06: Triglycerides 124 (<150) mg/dL Cholesterol 229 H (<200) mg/dL HDL Cholesterol 35 L (40-60) mg/dL CBC 06/12/19 06/13/19 Range/Units 16:13 : WBC 9.0 17.6 H (3.8-10.6) k/uL RBC 5.16 5.13 (4.30-5.90) m/uL Hgb 15.0 15.1 (13.0-17.5) gm/dL Hct 46.3 45.9 (39.0-53.0) % Plt Count 246 256 (150-450) k/uL Comprehensive Metabolic Panel 06/12/19 06/13/19 Range/Units 16:13 06:19 Sodium 139 140 (137-145) mmol/L Potassium 4.2 4.0 (3.5-5.1) mmol/L Chloride 107 109 H (98-107) mmol/L Carbon Dioxide 26 25 (22-30) mmol/L BUN 25 H 23 H (9-20) mg/dL Creatinine 0.86 0.72 (0.66-1.25) mg/dL Glucose 146 H 178 H (74-99) mg/dL Calcium 8.7 9.2 (8.4-10.2) mg/dL AST 13 L (17-59) U/L ALT 9 L (21-72) U/L Alkaline Phosphatase 101 (38-126) U/L Total Protein 6.3 (6.3-8.2) g/dL Albumin 3.5 (3.5-5.0) g/dL Current Medications Generic Name Dose Route Start Last Admin Trade Name Freq PRN Reason Stop Dose Admin Acetaminophen/Butalbital/Caffeine 1 each 06/12/19 22:28 06/13/19 04:18 Fioricet 50-325-40 PO 1 each Q4H PRN Administration pain Hydrocodone Bitart/Acetaminophen 1 each 06/13/19 13:10 06/13/19 13:22 [place] 5-325 PO 1 each TID PRN Administration Pain Albuterol Sulfate 2.5 mg 06/12/19 16:16 Ventolin Nebulized INHALATION RT-Q4H PRN Shortness Of Breath Or Wheezing Albuterol/Ipratropium 3 ml 06/12/19 20:00 06/13/19 15:41 Duoneb 0.5 Mg-3 Mg/3 Ml Soln INHALATION 3 ml RT-QID [facility] Administration Alprazolam 0.25 mg 06/12/19 22:30 06/12/19 22:46 Xanax PO 0.25 mg HS [facility] Administration Aripiprazole 5 mg 06/13/19 09:00 06/13/19 10:00 Abilify PO Not Given DAILY [facility] Aspirin 325 mg 06/13/19 09:00 06/13/19 08:16 Aspirin PO 325 mg DAILY [facility] Administration Azithromycin 500 mg 06/13/19 17:00 Zithromax PO DAILY@1700 [facility] Finasteride 5 mg 06/12/19 22:45 06/12/19 22:49 Proscar PO 5 mg HS [facility] Administration Furosemide 40 mg 06/13/19 09:00 06/13/19 08:16 Lasix PO 40 mg DAILY [facility] Administration Gabapentin 1,200 mg 06/12/19 22:30 06/13/19 00:25 Neurontin PO 1,200 mg HS [facility] Administration Gabapentin 600 mg 06/13/19 09:00 06/13/19 08:16 Neurontin PO 600 mg QAM [facility] Administration Heparin Sodium (Porcine) 0 unit 06/12/19 15:03 Heparin IV PER PROTOCOL PRN Low PTT Protocol Heparin Sodium/Sodium Chloride 250 mls @ 14.696 mls/hr 06/12/19 15:15 06/13/19 08:20 25,000 unit/ Sodium Chloride IV 18 units/kg/hr .Q17H1M [facility] 14.696 mls/hr Administration Protocol 18 UNITS/KG/HR Sodium Chloride 1,000 mls @ 20 mls/hr 06/12/19 15:15 06/12/19 18:23 Saline 0.9% IV Not Given .Q24H [facility] Ceftriaxone Sodium 1 gm/ 50 mls @ 100 mls/hr 06/13/19 09:00 06/13/19 08:16 Sodium Chloride IVPB 06/16/19 09:01 100 mls/hr Q24HR [facility] Administration Insulin Aspart 0 unit 06/13/19 07:30 06/13/19 12:06 Novolog SQ 3 unit ACHS [facility] Administration Protocol Methylprednisolone Sodium Succinate 60 mg 06/13/19 00:00 06/13/19 12:05 Solu-Medrol IV 60 mg Q6HR [facility] Administration Miscellaneous Information 1 each 06/12/19 16:16 Pneumonia Protocol Utilized PO ONCE PRN Per Protocol Nitroglycerin 0.4 mg 06/12/19 15:03 Nitrostat SUBLINGUAL Q5M PRN Chest Pain Tamsulosin HCl 0.4 mg 06/12/19 22:30 06/13/19 08:16 Flomax PO 0.4 mg BID [facility] Administration Trazodone HCl 150 mg 06/13/19 21:00 Desyrel PO HS [facility] Intake and Output 06/13/19 06/13/19 06/13/19 06:59 14:59 22:59 Intake Total 472.442 Output Total 950 240 Balance -950 232.442 Intake: Intake, IV Titration 232.442 Amount Heparin Sod,Pork in 0.45% 232.442 NaCl 25,000 unit In 0.45 % NaCl 1 250ml.bag @ 18 UNITS/KG/HR 14.696 mls/hr IV .Q17H1M [facility] Rx#: [id number] Oral 240 Output: Urine 950 240 Other: Voiding Method Toilet Urinal # Voids 2 Weight 83 kg 06/13/19 06:19 06/13/19 06:19
[2019-06-13 17:02] LABS: Glucose,Whole Blood 163 mg/dL (75-99)
[2019-06-13] MEDS: AZITHROMYCIN 500 MG TAB PO SCH (17:09)
[2019-06-13] MEDS: SODIUM CHLORIDE 0.9% 1,000 ML IV SCH (17:10)
[2019-06-13 20:42] LABS: Glucose,Whole Blood 219 mg/dL (75-99)
[2019-06-13] MEDS: FINASTERIDE 5 MG TAB PO SCH (21:16)
[2019-06-13] MEDS: traZODone HCL 50 MG TAB PO SCH (21:16)
[2019-06-13] MEDS: ALPRAZolam 0.25 MG TAB PO SCH (21:16)
[2019-06-14] MEDS: HEPARIN SOD,PORK IN 0.45% NACL 25,000 UNIT in 0.45% NACL 1 250ML.BAG IV SCH (06:14)
[2019-06-14] MEDS: methylPREDNISolone SOD SUCCI 125 MG/2 ML VIAL IV SCH (06:14)
[2019-06-14 06:26] LABS: Basophils % (A) 0 %; Eosinophils % (A) 0 %; HCT 44.2 % (39.0-53.0); HGB 14.3 gm/dL (13.0-17.5); Lymphocytes # (A) 0.9 k/uL (1.0-4.8); Lymphocytes % (A) 4 %; MCH 28.6 pg (25.0-35.0); MCHC 32.4 g/dL (31.0-37.0); MCV 88.3 fL (80.0-100.0); Mean Platelet Volume 6.6; Monocytes # (A) 0.5 k/uL (0-1.0); Monocytes % (A) 2 %; Neutrophils % (A) 94 %; Platelet Count 262 k/uL (150-450); RBC 5.01 m/uL (4.30-5.90); RDW 14.4 % (11.5-15.5); WBC 24.6 k/uL (3.8-10.6)
[2019-06-14 06:32] LABS: Glucose,Whole Blood 171 mg/dL (75-99)
[2019-06-14 06:33] LABS: Prothrombin Time 10.4 sec (9.0-12.0)
[2019-06-14 06:34] LABS: Partial Thromboplastin Time 47.7 sec (22.0-30.0)
[2019-06-14] MEDS: INSULIN ASPART (NovoLOG) 100 UNIT/ML VIAL SQ SCH ×4 (06:40→20:41)
[2019-06-14] MEDS: IPRATROPIUM-ALBUTEROL 3 ML NEB INHALATION SCH ×4 (07:40→20:05)
[2019-06-14] MEDS: ASPIRIN 325 MG TAB PO SCH (08:04)
[2019-06-14] MEDS: TAMSULOSIN 0.4 MG CAP.ER.24H PO SCH ×2 (08:04→20:40)
[2019-06-14] MEDS: FUROSEMIDE 40 MG TAB PO SCH (08:04)
[2019-06-14] MEDS: ARIPiprazole 5 MG TAB PO SCH (08:04)
[2019-06-14] MEDS: GABAPENTIN 300 MG CAP PO SCH (08:04)
[2019-06-14] MEDS: HYDROcodone/APAP 5-325MG 1 EACH TAB PO PRN ×2 (08:05→13:15)
[2019-06-14] MEDS: APIXABAN 5 MG TAB PO SCH ×2 (10:47→20:41)
--- NOTE | 2019-06-14 11:18 | P.PN ---
Subjective Progress Note Date: 06/14/19 Principal diagnosis: Pulmonary emboli The patient is a 68-year-old male with past medical history of COPD, CVA, GERD, hyperlipidemia, and hypertension, who presented to the hospital with worsening shortness of breath. He states over the past week shortness of breath had worsened with productive cough. Computed tomography scan showed possible pulmonary emboli and right lower lobe pneumonia. He was started on antibiotics and heparin drip. Doppler of lower extremities was negative for DVT. D-dimer was slightly elevated and his white count continues to rise. 06/13/19 On exam today he states he is significantly improved. He continues to have mild shortness of breath. He denies any chest pain, chest pressure, palpitations, dizziness, or vertigo. 06/14/19 he states he continues to do well today. He denies any shortness of breath or chest discomfort. GENERAL: Well-appearing, well-nourished and in no acute distress. NECK: Supple without JVD or thyromegaly. LUNGS: Breath sounds diminished, however improved from yesterday. Respiration equal and unlabored. No wheezes, rales or rhonchi. HEART: Regular rate and rhythm without murmurs, rubs or gallops. S1 and S2 heard. EXTREMITIES: Normal range of motion, no edema. No clubbing or cyanosis. Liliana pheral pulses intact and strong. EKG shows sinus rhythm with a heart rate of 103 Telemetry monitoring overnight unremarkable Echocardiogram shows normal LV function without significant valvular abno rmalities FINAL ASSESSMENT AND PLAN: #1 shortness of breath, possible pulmonary emboli, management per pulmonology #2 hypertension, well controlled #3 dyslipidemia, currently noncompliant with statin PLAN: Continue current medication regimen. No further recommendations from the cardiac standpoint. Objective - Vital Signs Vital signs: Vital Signs Temp 97.6 F 06/14/19 08:00 Pulse 94 06/14/19 08:00 Resp 18 06/14/19 08:00 BP 132/81 06/14/19 08:00 Pulse Ox 90 L 06/14/19 08:00 Intake & Output 06/13/19 06/14/19 06/14/19 18:59 06:59 18:59 Intake Total 712.442 350 582 Output Total 240 Balance 472.442 350 582 Weight 83 kg Intake: IV 100 Sodium Chloride 0.9% 1, 100 000 ml @ 20 mls/hr IV . Q24H [facility] Rx#:[id number] Intake, IV Titration 232.442 250 210 Amount Heparin Sod,Pork in 0.45% 232.442 250 NaCl 25,000 unit In 0.45 % NaCl 1 250ml.bag @ 18 UNITS/KG/HR 14.696 mls/hr IV .Q17H1M [facility] Rx#: [id number] Sodium Chloride 0.9% 1, 160 000 ml @ 20 mls/hr IV . Q24H [facility] Rx#:[id number] cefTRIAXone 1 gm In 50 Sodium Chloride 0.9% 50 ml @ 100 mls/hr IVPB Q24HR [facility] Rx#:[id number] Oral 480 372 Output: Urine 240 Other: Voiding Method Toilet Toilet Urinal Urinal # Voids 1 1 - Labs CBC & Chem 7: 06/14/19 06:04 06/13/19 06:19 Labs: Abnormal Lab Results - Last 24 Hours (Table) 06/13/19 06/13/19 06/13/19 Range/Units 11:47 17:00 20:40 WBC (3.8-10.6) k/uL Neutrophils # (1.3-7.7) k/uL Lymphocytes # (1.0-4.8) k/uL APTT (22.0-30.0) sec POC Glucose (mg/dL) 160 H 163 H 219 H (75-99) mg/dL 06/14/19 06/14/19 06/14/19 Range/Units 06:04 06:04 06:31 WBC 24.6 H (3.8-10.6) k/uL Neutrophils # 23.0 H (1.3-7.7) k/uL Lymphocytes # 0.9 L (1.0-4.8) k/uL APTT 47.7 H (22.0-30.0) sec POC Glucose (mg/dL) 171 H (75-99) mg/dL Microbiology - Last 24 Hours (Table) 06/12/19 16:50 Blood Culture - Preliminary Blood No Growth after 24 hours
--- NOTE | 2019-06-14 11:45 | P.PN ---
Subjective Progress Note Date: 06/14/19 Principal diagnosis: Pneumonia and pulmonary embolism Patient continued to be hemodynamically stable no major events reported by nursing staff patient feels at least 50% improved since yesterday. No fever or chills. No chest pain or shortness breath. Objective - Vital Signs Vital signs: Vital Signs Temp 97.6 F 06/14/19 08:00 Pulse 94 06/14/19 08:00 Resp 18 06/14/19 08:00 BP 132/81 06/14/19 08:00 Pulse Ox 90 L 06/14/19 08:00 Intake & Output 06/13/19 06/14/19 06/14/19 18:59 06:59 18:59 Intake Total 712.442 350 582 Output Total 240 Balance 472.442 350 582 Weight 83 kg Intake: IV 100 Sodium Chloride 0.9% 1, 100 000 ml @ 20 mls/hr IV . Q24H [facility] Rx#:[id number] Intake, IV Titration 232.442 250 210 Amount Heparin Sod,Pork in 0.45% 232.442 250 NaCl 25,000 unit In 0.45 % NaCl 1 250ml.bag @ 18 UNITS/KG/HR 14.696 mls/hr IV .Q17H1M [facility] Rx#: [id number] Sodium Chloride 0.9% 1, 160 000 ml @ 20 mls/hr IV . Q24H [facility] Rx#:[id number] cefTRIAXone 1 gm In 50 Sodium Chloride 0.9% 50 ml @ 100 mls/hr IVPB Q24HR [facility] Rx#:[id number] Oral 480 372 Output: Urine 240 Other: Voiding Method Toilet Toilet Urinal Urinal # Voids 1 1 - Exam Gen.: in stated age, no acute distress Heart: Normal S1-S2 Lungs: Diminished bilaterally Abdomen: Soft, no tenderness, positive bowel sounds in all 4 quadrant no guarding or rebound Skin: No new rash Psych: Alert and oriented 3 Neuro: No focal deficit - Labs CBC & Chem 7: 06/14/19 06:04 06/13/19 06:19 Labs: Abnormal Lab Results - Last 24 Hours (Table) 06/13/19 06/13/19 06/13/19 Range/Units 11:47 17:00 20:40 WBC (3.8-10.6) k/uL Neutrophils # (1.3-7.7) k/uL Lymphocytes # (1.0-4.8) k/uL APTT (22.0-30.0) sec POC Glucose (mg/dL) 160 H 163 H 219 H (75-99) mg/dL 06/14/19 06/14/19 06/14/19 Range/Units 06:04 06:04 06:31 WBC 24.6 H (3.8-10.6) k/uL Neutrophils # 23.0 H (1.3-7.7) k/uL Lymphocytes # 0.9 L (1.0-4.8) k/uL APTT 47.7 H (22.0-30.0) sec POC Glucose (mg/dL) 171 H (75-99) mg/dL Microbiology - Last 24 Hours (Table) 06/12/19 16:50 Blood Culture - Preliminary Blood No Growth after 24 hours Assessment and Plan Assessment: 1. Acute pulmonary embolism 2. Community-acquired pneumonia. 3. Leukocytosis. Worsening likely related to steroids 4. Acute on chronic respiratory failure with hypoxia he had 5. Hypertension. 6. Hyperlipidemia. 7. Benign prostatic hypertrophy. 8. Advanced COPD with mild exacerbation Patient is clinically improved, I discussed with pulmonary to decrease steroid dose, and tinea aggressive pulmonary hygiene, wean off oxygen as tolerated, continue antibiotics intravenously and consider switching to oral antibiotics in the morning if patient is continued to improve, plan to discharge patient's on liquids 5 mg twice daily for 3 month to be followed by pulmonary outpatient for his newly diagnosed pulmonary embolism. Patient may benefit from therapy computed tomography scan of the chest in 6 weeks outpatient with pulmonology to ensure resolution of current pneumonia and other finding on the CAT scan. Plan is discussed with patient and director of physical education and we'll follow-up on patient's vital signs closely and repeat his blood work in the morning
[2019-06-14 11:51] LABS: Glucose,Whole Blood 116 mg/dL (75-99)
--- NOTE | 2019-06-14 13:07 | P.PN ---
Subjective Progress Note Date: 06/14/19 This 68-year-old male patient known to me due to his advanced COPD with also previous history of pneumothorax back in 2016 requiring a Thoravent insertion. The patient came in thinking that he may be having a pneumonia as the patient was having increased shortness of breath. A CT angiogram was done in the emergency department and the patient was found to have a right lower lobe segmental and subsegmental pulmonary artery embolism. There is also concern of a pneumonia involving in the medial segment of the right lower lobe. The patient was started on a, which Rocephin and Zithromax. The patient was started on IV heparin. The white cell count is at 9.0. The rest of the blood work and electrodes are all within normal limits. The patient has had no fever and pulse oxing 94% liter of oxygen nasal cannula. On 06/13/2019 clinically the patient is feeling better. Is less short of breath is on IV heparin. He is also on antibiotics. He is being treated for questionable pulmonary embolism and limited right lower lobe pneumonia. Doppler of the lower extremities was negative. D-dimer was slightly elevated. No chest pain. No fever. No chills. White cell count is up to 17. On 06/14/2019, clinically the patient is improved. Nevertheless he developed some leukocytosis and this can be potentially steroid-induced. The patient IV Solu-Medrol. The patient on Rocephin and Zithromax combination. The patient is on IV heparin and this will be transitioned to Eliquis 5 mg by mouth twice a day maintenance dose. Overall concern for pulmonary embolism is low. I would also discontinue the IV Solu-Medrol. He is afebrile. No significant sputum production. He is ambulating. Objective - Vital Signs Vital signs: Vital Signs Temp 97.6 F 06/14/19 08:00 Pulse 97 06/14/19 12:08 Resp 18 06/14/19 08:00 BP 132/81 06/14/19 08:00 Pulse Ox 90 L 06/14/19 08:00 Intake & Output 06/13/19 06/14/19 06/14/19 18:59 06:59 18:59 Intake Total 712.442 350 582 Output Total 240 Balance 472.442 350 582 Weight 83 kg Intake: IV 100 Sodium Chloride 0.9% 1, 100 000 ml @ 20 mls/hr IV . Q24H [facility] Rx#:[id number] Intake, IV Titration 232.442 250 210 Amount Heparin Sod,Pork in 0.45% 232.442 250 NaCl 25,000 unit In 0.45 % NaCl 1 250ml.bag @ 18 UNITS/KG/HR 14.696 mls/hr IV .Q17H1M [facility] Rx#: [id number] Sodium Chloride 0.9% 1, 160 000 ml @ 20 mls/hr IV . Q24H [facility] Rx#:[id number] cefTRIAXone 1 gm In 50 Sodium Chloride 0.9% 50 ml @ 100 mls/hr IVPB Q24HR [facility] Rx#:[id number] Oral 480 372 Output: Urine 240 Other: Voiding Method Toilet Toilet Urinal Urinal # Voids 1 1 - Exam General Appearance no diaphoresis, no respiratory distress, speech not interrupted by breaths, no dyspnea, no pallor, not cachectic, well nourished, appears well Head exam was generally normal. There was no scleral icterus or corneal arcus. Mucous membranes were moist. HEENT no pursed lip breathing, no jugular venous distention, no mucous membrane cyanosis, no perioral cyanosis, mallampati classification: class 1 Chest no barrel chest, no retractions, no sternocleidomastoid muscle contractions, no supraclavicular retractions, no intercostal retractions, no decreased air movement, no rhonchi, no hyperinflation, prolonged expiratory wheezing, decreased air movement Heart no right ventricular heave, no distant heart sounds, no s3 gallop GI bowel sounds: hyperactive (borborygmi), bowel sounds: diminished or absent Extremities no cyanosis, no clubbing, no edema, my normal extremities Neurologic no decreased mental status, no somnolence, no confusion Examination of the skin revealed no evidence of significant rashes, suspicious appearing nevi or other concerning lesions. - Labs CBC & Chem 7: 06/14/19 06:04 06/13/19 06:19 Labs: Abnormal Lab Results - Last 24 Hours (Table) 06/13/19 06/13/19 06/14/19 Range/Units 17:00 20:40 06:04 WBC 24.6 H (3.8-10.6) k/uL Neutrophils # 23.0 H (1.3-7.7) k/uL Lymphocytes # 0.9 L (1.0-4.8) k/uL APTT (22.0-30.0) sec POC Glucose (mg/dL) 163 H 219 H (75-99) mg/dL 06/14/19 06/14/19 06/14/19 Range/Units 06:04 06:31 11:49 WBC (3.8-10.6) k/uL Neutrophils # (1.3-7.7) k/uL Lymphocytes # (1.0-4.8) k/uL APTT 47.7 H (22.0-30.0) sec POC Glucose (mg/dL) 171 H 116 H (75-99) mg/dL Microbiology - Last 24 Hours (Table) 06/12/19 16:50 Blood Culture - Preliminary Blood No Growth after 24 hours Assessment and Plan Plan: 1 right lower lobe pneumonia medial basilar segment of the right lower lobe. Doubt malignancy, and the patient is currently being treated with antibiotics and accommodation Rocephin and Zithromax. Clinically improved. White cell count is higher probably steroid effect. 2 questionable pulmonary embolism involving segmental and subsegmental branches of the right lower lobe pulmonary artery 3 advanced COPD with bullous changes involving the upper lobes with an FEV1 of 64% of predicted 4 previous history of right-sided pneumothorax requiring a Thoravent insertion and subsequent removal 5 hypertension 6 hyperlipidemia 7 BPH 8 TIA/stroke approximately 2 years ago 9 diverticulosis and history of colonic polyps 10 acute leukocytosis, likely steroid related Plan We'll treat this patient with a short course of antibiotic ventilation with Eliquis for the next 3 months. Antibiotics will be continued IV for another 24 hours. Doppler of the lower extremities negative. Clinically improving. Continue bronchodilators. is continued IV Solu-Medrol and put the patient prednisone burst taper starting with 30 mg. Monitor white cell count. Possible discharge in the next 24 hours. we'll continue to follow.
[2019-06-14] MEDS: PANTOPRAZOLE 40 MG TABLET PO SCH (13:37)
[2019-06-14] MEDS: SODIUM CHLORIDE 0.9% 1,000 ML IV SCH (14:16)
[2019-06-14 16:57] LABS: Glucose,Whole Blood 165 mg/dL (75-99)
[2019-06-14] MEDS: AZITHROMYCIN 500 MG TAB PO SCH (17:24)
[2019-06-14] MEDS: BUTALB/APAP/CAFF 50-325-40MG TAB PO PRN (17:25)
[2019-06-14 20:17] LABS: Glucose,Whole Blood 157 mg/dL (75-99)
[2019-06-14] MEDS: traZODone HCL 50 MG TAB PO SCH (20:40)
[2019-06-14] MEDS: ALPRAZolam 0.25 MG TAB PO SCH (20:41)
[2019-06-14] MEDS: GABAPENTIN 400 MG CAP PO SCH (20:41)
[2019-06-14] MEDS: FINASTERIDE 5 MG TAB PO SCH (20:41)
[2019-06-15] MEDS: PANTOPRAZOLE 40 MG TABLET PO SCH (06:02)
[2019-06-15 06:22] LABS: Glucose,Whole Blood 116 mg/dL (75-99)
[2019-06-15] MEDS: INSULIN ASPART (NovoLOG) 100 UNIT/ML VIAL SQ SCH ×2 (06:58→15:22)
[2019-06-15 07:19] LABS: Basophils % (A) 0 %; Eosinophils % (A) 0 %; HCT 43.4 % (39.0-53.0); HGB 14.1 gm/dL (13.0-17.5); Lymphocytes # (A) 1.2 k/uL (1.0-4.8); Lymphocytes % (A) 7 %; MCHC 32.5 g/dL (31.0-37.0); MCV 89.2 fL (80.0-100.0); Mean Platelet Volume 6.6; Monocytes # (A) 0.9 k/uL (0-1.0); Monocytes % (A) 6 %; Neutrophils # (A) 13.7 k/uL (1.3-7.7); Neutrophils % (A) 86 %; Platelet Count 268 k/uL (150-450); RBC 4.86 m/uL (4.30-5.90)
[2019-06-15 07:27] LABS: Prothrombin Time 10.4 sec (9.0-12.0)
[2019-06-15] MEDS: IPRATROPIUM-ALBUTEROL 3 ML NEB INHALATION SCH ×2 (08:05→11:21)
[2019-06-15] MEDS: ASPIRIN 325 MG TAB PO SCH (08:57)
[2019-06-15] MEDS: APIXABAN 5 MG TAB PO SCH (08:58)
[2019-06-15] MEDS: GABAPENTIN 300 MG CAP PO SCH (08:58)
[2019-06-15] MEDS: TAMSULOSIN 0.4 MG CAP.ER.24H PO SCH (08:58)
[2019-06-15] MEDS: ARIPiprazole 5 MG TAB PO SCH (08:58)
[2019-06-15] MEDS: FUROSEMIDE 40 MG TAB PO SCH (08:58)
[2019-06-15] MEDS ORDERED: predniSONE 10 MG TAB PO SCH (09:00)
[2019-06-15] MEDS ORDERED: LOSARTAN 50 MG TAB PO SCH (09:00)
[2019-06-15 10:14] VITALS: RESP 16
[2019-06-15] MEDS ORDERED: ATORVASTATIN 40 MG TAB PO SCH (10:45)
--- NOTE | 2019-06-15 11:09 | PN ---
PROGRESS NOTE Mr. Duong is a 68-year-old male who presented with symptoms of progressive dyspnea and cough. He had a possible pulmonary embolism. He has been seen in the past by Dr. Erasmo Ochoa. He is feeling well this morning. His breathing has been stable. He denies any dizziness or palpitation. He denies any nausea. He continues to have cough, although nonproductive. He was diagnosed with right lower lobe pneumonia. He has a history of chronic obstructive lung disease, but no history of obstructive coronary artery disease. He had an echocardiogram that revealed a preserved left ventricular size and systolic function. He continues to be at this time on Eliquis 5 mg twice a day, aspirin once a day, furosemide 40 mg daily. PHYSICAL EXAMINATION: Blood pressure in the 130s to 140s with the heart rate in the 80s. LUNGS: Clear. No wheezes. HEART: Regular rate and rhythm. S1, S2. No S3. No rub. ABDOMEN: Soft, nontender. EXTREMITIES: No edema. His cholesterol 229, LDL of 169. IMPRESSION: 1. Pneumonia, being treated. 2. Possible pulmonary embolism, anticoagulation initiated. 3. Hypertension. 4. Hyperlipidemia. 5. History of chronic obstructive lung disease. 6. History of cerebrovascular accident. RECOMMENDATION: I will recommend to initiate treatment with a statin. I will re-initiate the treatment with his ARB. Continue the rest of his medical regimen. Increase his level of activity. I would expect he should be able to be discharged home soon and follow up as an outpatient with Dr. Erasmo Ochoa. MMODL / KANCHANN: [id number] /
[2019-06-15 11:43] LABS: Glucose,Whole Blood 122 mg/dL (75-99)
--- NOTE | 2019-06-15 13:19 | P.PN ---
Subjective Progress Note Date: 06/15/19 Principal diagnosis: Right lower lobe pneumonia, at the medial basilar segment of the right lower lobe, questionable pulmonary embolism This 68-year-old male patient known to me due to his advanced COPD with also previous history of pneumothorax back in 2016 requiring a Thoravent insertion. The patient came in thinking that he may be having a pneumonia as the patient was having increased shortness of breath. A CT angiogram was done in the emergency department and the patient was found to have a right lower lobe segmental and subsegmental pulmonary artery embolism. There is also concern of a pneumonia involving in the medial segment of the right lower lobe. The patien t was started on a, which Rocephin and Zithromax. The patient was started on IV heparin. The white cell count is at 9.0. The rest of the blood work and electrodes are all within normal limits. The patient has had no fever and pulse oxing 94% liter of oxygen nasal cannula. On 06/13/2019 clinically the patient is feeling better. Is less short of breath is on IV heparin. He is also on antibiotics. He is being treated for questionable pulmonary embolism and limited right lower lobe pneumonia. Doppler of the lower extremities was negative. D-dimer was slightly elevated. No chest pain. No fever. No chills. White cell count is up to 17. On 06/14/2019, clinically the patient is improved. Nevertheless he developed some leukocytosis and this can be potentially steroid-induced. The patient IV Solu-Medrol. The patient on Rocephin and Zithromax combination. The patient is on IV heparin and this will be transitioned to Eliquis 5 mg by mouth twice a day maintenance dose. Overall concern for pulmonary embolism is low. I would also discontinue the IV Solu-Medrol. He is afebrile. No significant sputum production. He is ambulating. On 06/15/2019 patient seen in follow-up, on selective care unit. Awake and alert, in no acute distress, currently on 2 L of oxygen his pulse ox is 93%, no fever or chills, hemodynamically patient is stable, lung sounds are clear. Blood culture showed no growth at the 48 hour irvin. Patient is on Omnicef and Zithromax, and Eliquis has been started for anticoagulation for possibility of a pulmonary embolism. No acute complaints this morning, he is feeling well his breathing is stable, no complaints of chest pain, no dizziness or palpitations, still has a nonproductive cough. Vital signs are stable, no fever or chills. No wheezing, no rhonchi. He is on breathing treatments and oral prednisone Objective - Vital Signs Vital signs: Vital Signs Temp 97.4 F L 06/15/19 08:00 Pulse 80 06/15/19 11:32 Resp 16 06/15/19 08:00 BP 131/78 06/15/19 08:00 Pulse Ox 93 L 06/15/19 08:07 Intake & Output 06/14/19 06/15/19 06/15/19 18:59 06:59 18:59 Intake Total 1248 200 444 Balance 1248 200 444 Weight 83 kg Intake: Intake, IV Titration 210 Amount Sodium Chloride 0.9% 1, 160 000 ml @ 20 mls/hr IV . Q24H NELDA Rx#:[id number] cefTRIAXone 1 gm In 50 Sodium Chloride 0.9% 50 ml @ 100 mls/hr IVPB Q24HR NELDA Rx#:[id number] Oral 1038 200 444 Other: Voiding Method Toilet Toilet Urinal Urinal # Voids 3 1 2 - Exam GENERAL EXAM: Alert, pleasant, 68-year-old tall white male comfortable in no apparent distress. HEAD: Normocephalic/atraumatic. EYES: Normal reaction of pupils, equal size. Conjunctiva pink, sclera white. NOSE: Clear with pink turbinates. THROAT: No erythema or exudates. NECK: No masses, no JVD, no thyroid enlargement, no adenopathy. CHEST: No chest wall deformity. Symmetrical expansion. LUNGS: Equal air entry with no crackles, wheeze, rhonchi or dullness. CVS: Regular rate and rhythm, normal S1 and S2, no gallops, no murmurs, no rubs ABDOMEN: Soft, nontender. No hepatosplenomegaly, normal bowel sounds, no guarding or rigidity. EXTREMITIES: No clubbing, no edema, no cyanosis, 2+ pulses and upper and lower extremities. MUSCULOSKELETAL: Muscle strength and tone normal. SPINE: No scoliosis or deformity SKIN: No rashes CENTRAL NERVOUS SYSTEM: Alert and oriented -3. No focal deficits, tone is n ormal in all 4 extremities. PSYCHIATRIC: Alert and oriented -3. Appropriate affect. Intact judgment and insight. - Labs CBC & Chem 7: 06/15/19 06:37 06/13/19 06:19 Labs: Abnormal Lab Results - Last 24 Hours (Table) 06/14/19 06/14/19 06/15/19 Range/Units 16:54 20:15 06:21 WBC (3.8-10.6) k/uL Neutrophils # (1.3-7.7) k/uL POC Glucose (mg/dL) 165 H 157 H 116 H (75-99) mg/dL 06/15/19 06/15/19 Range/Units 06:37 11:41 WBC 16.0 H (3.8-10.6) k/uL Neutrophils # 13.7 H (1.3-7.7) k/uL POC Glucose (mg/dL) 122 H (75-99) mg/dL Microbiology - Last 24 Hours (Table) 06/12/19 16:50 Blood Culture - Preliminary Blood No Growth after 48 hours Assessment and Plan Plan: Assessment: 1 right lower lobe pneumonia medial basilar segment of the right lower lobe. Doubt malignancy, and the patient is currently being treated with antibiotics and accommodation Rocephin and Zithromax. Clinically improved. White cell count is higher probably steroid effect. 2 questionable pulmonary embolism involving segmental and subsegmental branches of the right lower lobe pulmonary artery 3 advanced COPD with bullous changes involving the upper lobes with an FEV1 of 64% of predicted 4 previous history of right-sided pneumothorax requiring a Thoravent insertion and subsequent removal 5 hypertension 6 hyperlipidemia 7 BPH 8 TIA/stroke approximately 2 years ago 9 diverticulosis and history of colonic polyps 10 acute leukocytosis, likely steroid related Plan: From pulmonary perspective patient is stable, no acute events overnight, though has the occasional nonproductive cough, but no worsening dyspnea, no fever or chills, no complaint of chest pain, no significant cough or congestion. Has bee n started on Eliquis for possibility of pulmonary embolus. He is on empiric antibiotics, oral prednisone and breathing treatments, echocardiogram results have been noted. Lower extremity Dopplers are negative. Patient is tolerating ambulation, weaning FiO2. Patient is being considered for discharge home today, and a stable for discharge home today from pulmonary perspective. He will need follow-up with Dr. Rascon in the office in 7-10 days I performed a history & physical examination of the patient and discussed their management with my nurse practitioner, Teetee Mathew. I reviewed the nurse practitioner's note and agree with the documented findings and plan of care. Lung sounds are positive for clear breath sounds. The findings and the impression was discussed with the patient. I attest to the documentation by the nurse practitioner. Time with Patient: Less than 30
[2019-06-15] MEDS: HYDROcodone/APAP 5-325MG 1 EACH TAB PO PRN (13:22)
[2019-06-15 13:48] VITALS: BP 135/78; PULSE 94; TEMP 97.5
[2019-06-15] MEDS ORDERED: CEFDINIR 300 MG CAP PO SCH (21:00)
[2019-06-16] MEDS ORDERED: ASPIRIN 81 MG PO SCH (09:00)
--- NOTE | 2019-06-16 15:51 | P.DS ---
Providers Date of admission: 06/12/19 16:45 Expected date of discharge: 06/15/19 Attending physician: Dyana Giordano Consults: 06/12/19 15:03 Consult Physician Routine Consulting Provider: Maximo Rascon Consult Reason/Comments: PE Do you want consulting provider notified?: Yes Consult Physician Urgent Consulting Provider: Judith Gresham Consult Reason/Comments: PE Do you want consulting provider notified?: Yes Primary care physician: Dyana Giordano Hospital Course: This is 68 years old male who presented to the emergency department with worsening shortness breath. Patient is home oxygen dependent was diagnosed with portal bullous emphysema long time ago and has been followed by pulmonary outpatient who noticed worsening shortness of breath so slowly and gradually p atient was having fatigue and weakness and productive cough for yellow sputum and decided to come into the emergency department where computed tomography scan was done and showed possible pulmonary embolism and right lower lobe pneumonia. Patient was started on antibiotics, heparin drip and placed on the medical floor for further evaluation. Patient is denying tobacco alcohol or drug abuse stated that he is at least 50% improved since yesterday. Patient tried all the conservative management at home with breathing treatment R increasing oxygen without improvement in his shortness breath and decided to come into the emergency department. Patient stated that he's compliment with his medication and doctors follow-up 06/15: Patient states his breathing is stable. His pulse ox E 93% on 2 L. He denies any cough, chest pain. Blood culture no growth at 48 hours. Patient has been on Omnicef and Zithromax. Dr. Rascon is started patient on eliquis 5 mg twice daily on lower dose as home embolism has not been completely ruled in and he will plan to follow with the patient in the office for further evaluation. The patient will be discharged home on antibiotics, prednisone tapering dose. Patient has been seen by cardiology with recommendations for statin, resume losartan and plan for follow-up with Dr. LEDY Ochoa. Patient also relates that he has not been taking Abilify as Dr. Giordano is planning to transition him to Lexapro. A prescription for Lexapro will be provided. The patient is anxious to be discharged home. Patient will be discharged home today in stable condition. Discharge diagnoses: 1. Possible acute pulmonary embolism has not been entirely ruled out 2. Right lower lobe pneumonia. 3. Leukocytosis. Worsening likely related to steroids 4. Acute hypoxic respiratory failure 5. Hypertension. 6. Hyperlipidemia. 7. Benign prostatic hypertrophy. 8. Advanced COPD with mild exacerbation Discharge plan: Home Impression and plan of care have been directed as dictated by the signing physician. Cierra Lazo nurse practitioner acting as scribe for signing physician. Patient Condition at Discharge: Good Plan - Discharge Summary Discharge Rx Participant: Yes New Discharge Prescriptions: New Aspirin 81 mg PO DAILY chew Losartan [Cozaar] 50 mg PO DAILY #30 tab Apixaban [Eliquis] 5 mg PO BID #60 tab Escitalopram [Lexapro] 5 mg PO DAILY #30 tablet Atorvastatin [Lipitor] 40 mg PO DAILY #30 tab Cefdinir [Omnicef] 300 mg PO BID #14 cap predniSONE 0 mg PO DIRECTED #30 tab Azithromycin [Zithromax] 500 mg PO DAILY@1700 #7 tab Continue HYDROcodone/APAP 7.5-325MG [[place] 7.5-325] 1 tab PO Q12HR PRN PRN Reason: Pain Lansoprazole 30 mg PO DAILY Gabapentin [Neurontin] 600 mg PO QAM Finasteride [Proscar] 5 mg PO DAILY Tamsulosin HCl [Flomax] 0.4 mg PO BID Albuterol Inhaler [Ventolin Hfa Inhaler] 2 puff INHALATION RT-Q6H PRN PRN Reason: Shortness Of Breath ALPRAZolam [Xanax] 0.25 mg PO HS traZODone HCL 75 mg PO HS Gabapentin 1,200 mg PO HS Butalb/APAP/Caff 50-325-40Mg [Fioricet 50-325-40] 1 tab PO Q4H PRN #30 tablet PRN Reason: pain Furosemide [Lasix] 40 mg PO DAILY Albuterol Nebulized [Ventolin Nebulized] 2.5 mg INHALATION RT-Q6H PRN PRN Reason: Shortness Of Breath Discontinued Losartan/Hydrochlorothiazide [Losartan-Hctz 100-25 mg Tab] 1 tab PO DAILY ARIPiprazole [Abilify] 5 mg PO DAILY Discharge Medication List Finasteride [Proscar] 5 mg PO DAILY 10/21/14 [History] Gabapentin [Neurontin] 600 mg PO QAM 10/21/14 [History] HYDROcodone/APAP 7.5-325MG [[place] 7.5-325] 1 tab PO Q12HR PRN 10/21/14 [History] Lansoprazole 30 mg PO DAILY 10/21/14 [History] Tamsulosin HCl [Flomax] 0.4 mg PO BID 10/21/14 [History] ALPRAZolam [Xanax] 0.25 mg PO HS 04/08/16 [History] Albuterol Inhaler [Ventolin Hfa Inhaler] 2 puff INHALATION RT-Q6H PRN 04/08/16 [History] Gabapentin 1,200 mg PO HS 04/09/16 [History] traZODone HCL 75 mg PO HS 04/09/16 [History] Butalb/APAP/Caff 50-325-40Mg [Fioricet 50-325-40] 1 tab PO Q4H PRN #30 tablet 04/14/16 [Rx] Albuterol Nebulized [Ventolin Nebulized] 2.5 mg INHALATION RT-Q6H PRN 06/12/19 [History] Furosemide [Lasix] 40 mg PO DAILY 06/12/19 [History] Apixaban [Eliquis] 5 mg PO BID #60 tab 06/15/19 [Rx] Aspirin 81 mg PO DAILY chew 06/15/19 [Rx] Atorvastatin [Lipitor] 40 mg PO DAILY #30 tab 06/15/19 [Rx] Azithromycin [Zithromax] 500 mg PO DAILY@1700 #7 tab 06/15/19 [Rx] Cefdinir [Omnicef] 300 mg PO BID #14 cap 06/15/19 [Rx] Escitalopram [Lexapro] 5 mg PO DAILY #30 tablet 06/15/19 [Rx] Losartan [Cozaar] 50 mg PO DAILY #30 tab 06/15/19 [Rx] predniSONE 0 mg PO DIRECTED #30 tab 06/15/19 [Rx] Follow up Appointment(s)/Referral(s): Dolores Ochoa MD [STAFF PHYSICIAN] - 07/09/19 8:45 am Dyana Giordano MD [Primary Care Provider] - 1-2 days (Appointment already made for tomorrow 06/16/2019) Maximo Rascon MD [STAFF PHYSICIAN] - 06/17/19 3:45 pm Discharge Disposition: HOME SELF-CARE
== END 2019-06-15 15:27 | disposition home or self-care (01) | DRG 175 ==
LOC: EC 14:54 → 3SCARD 15:39 → OBSVTOIN 16:45 → 3SCARD 16:49
PROVIDERS: ADMIT Family Medicine; ATTEND Family Medicine
DX: I26.99 Other pulmonary embolism without acute cor pulmonale (principal); J18.9 Pneumonia, unspecified organism; J96.21 Acute and chronic respiratory failure with hypoxia; J44.0 Chronic obstructive pulmonary disease with (acute) lower respiratory infection; J44.1 Chronic obstructive pulmonary disease with (acute) exacerbation; D72.829 Elevated white blood cell count, unspecified; T38.0X5A Adverse effect of glucocorticoids and synthetic analogues, initial encounter; K57.90 Diverticulosis of intestine, part unspecified, without perforation or abscess without bleeding; K21.9 Gastro-esophageal reflux disease without esophagitis; I10 Essential (primary) hypertension; E78.5 Hyperlipidemia, unspecified; M54.9 Dorsalgia, unspecified; N40.0 Benign prostatic hyperplasia without lower urinary tract symptoms; H91.91 Unspecified hearing loss, right ear; G25.81 Restless legs syndrome; M19.90 Unspecified osteoarthritis, unspecified site; Z99.81 Dependence on supplemental oxygen; Z91.14 Patient's other noncompliance with medication regimen; Z79.899 Other long term (current) drug therapy; Z79.51 Long term (current) use of inhaled steroids; Z86.73 Personal history of transient ischemic attack (TIA), and cerebral infarction without residual deficits; Z86.010 Personal history of colon polyps; Z87.891 Personal history of nicotine dependence; Z98.890 Other specified postprocedural states; Z79.01 Long term (current) use of anticoagulants
CPT/HCPCS: 36415; 71046; 71275; 80048; 80053; 80061; 82565; 83690; 83735; 83880; 84484; 84520; 85025; 85379; 85610; 85730; 87040; 93005; 93306; 93970; 94640; 94760; 96365; 96376; 99214; 99291

== ENCOUNTER → 2019-06-12 | Outpatient (CLI) | payer MEDICARE ==
[2019-06-12 13:49] LABS: African American GFR (CKD) >90 (>60 ml/min/1.73 sqM); Blood Urea Nitrogen 26 mg/dL (9-20)
--- NOTE | 2019-06-12 14:50 | CT ---
EXAMINATION TYPE: CT angio chest DATE OF EXAM: 06/12/2019 2:21 PM COMPARISON: 09/10/2018 CT of the chest without contrast HISTORY: Shortness of breath. CT DLP: 527 mGycm Automated exposure control for dose reduction was used. CONTRAST: CTA scan of the thorax is performed with IV Contrast, patient injected with 75ml mL of Isovue 370, pu lmonary embolism protocol. . FINDINGS: LUNGS: Extensive emphysematous changes are seen throughout the lungs with large bolus emphysematous c hange in the right upper lobe. Medial right lower lobe consolidation with medial right costophrenic a ngle and hemidiaphragm. There are air-fluid levels seen within the distal right mainstem bronchus ext ending into the anterior and posterior medial right lower lobe segmental and subsegmental bronchi. MEDIASTINUM: Adjacent to the findings above, there is a filling defect seen within the posterior medi al left lower lobe subsegmental branch on axial images 99-102. Otherwise, there is satisfactory enhan cement of the pulmonary artery and its branches, there is no CT evidence for pulmonary embolism. The re are no greater than 1 cm hilar or mediastinal lymph nodes. No pericardial effusion is seen. OTHER: No additional significant abnormality is seen. IMPRESSION: POSTERIOR MEDIAL RIGHT LOWER LOBE SEGMENTAL AND SUBSEGMENTAL PULMONARY EMBOLUS. FINDINGS SUGGESTIVE OF RIGHT LOWER LOBE ASPIRATION PNEUMONIA. SMALL PULMONARY MASS IN THE MEDIAL RIGH T LOWER LOBE IS NOT EXCLUDED. FOLLOW-UP CONSOLIDATION UNTIL RESOLUTION. THESE FINDINGS WERE DISCUSSED WITH DR. DELUCA BY DR. KAMARA AT 1440 5:00 PM ON 06/12/2019.
== END | disposition home or self-care (01) ==
LOC: RADCTMAIN 13:06
PROVIDERS: ATTEND Family Medicine
DX: I26.99 Other pulmonary embolism without acute cor pulmonale (principal)
CPT/HCPCS: 82565; 84520; 71275; 36415; Q9967

== ENCOUNTER 2019-07-08 12:34 | Emergency (ER) | payer MEDICARE ==
[2019-07-08 12:52] VITALS: TEMP 98.2
--- NOTE | 2019-07-08 13:33 | ED ---
SOB HPI - General Chief Complaint: Shortness of Breath Stated Complaint: SOB, Swelling Time Seen by Provider: 07/08/19 13:13 Source: patient, RN notes reviewed, old records reviewed Mode of arrival: wheelchair Limitations: no limitations - History of Present Illness Initial Comments: This is a 69-year-old male to ER for evaluation patient presents today for evaluation regarding bilateral lower extremity edema. Significant edema. Patient recently taken off Lasix as well as recent on long plane flight and [place]. Patient has history of recent PE was placed on anticoagulation, [place]. But at the same time was taken off of his Lasix. The patient states he's had increasing weight gain occasional shortness breath nothing significant currently. No chest pain. No other changes in medications no fever cough or congestion MD Complaint: shortness of breath -: days(s) Severity: moderate Severity scale (1-10): 6 (Swelling of lower extremities) Consistency: constant Improves With: rest, other (Placing legs up and there) Worsens With: exertion Known History Of: congestive heart failure Context: medication noncompliance (Patient recently taken off of Lasix) Associated Symptoms: denies other symptoms - Related Data Home Medications Medication Instructions Recorded Confirmed Finasteride [Proscar] 5 mg PO DAILY 10/21/14 07/08/19 Gabapentin [Neurontin] 600 mg PO QAM 10/21/14 07/08/19 HYDROcodone/APAP 7.5-325MG [[place] 1 tab PO TID 10/21/14 07/08/19 7.5-325] Lansoprazole 30 mg PO DAILY 10/21/14 07/08/19 Tamsulosin HCl [Flomax] 0.4 mg PO BID 10/21/14 07/08/19 ALPRAZolam [Xanax] 0.25 mg PO HS 04/08/16 07/08/19 Albuterol Inhaler [Ventolin Hfa 2 puff INHALATION RT-Q6H PRN 04/08/16 07/08/19 Inhaler] Gabapentin 1,200 mg PO HS 04/09/16 07/08/19 traZODone HCL 75 mg PO HS 04/09/16 07/08/19 Albuterol Nebulized [Ventolin 2.5 mg INHALATION RT-Q6H PRN 06/12/19 07/08/19 Nebulized] Previous Rx's Medication Instructions Recorded Butalb/APAP/Caff 50-325-40Mg 1 tab PO Q4H PRN #30 tablet 04/14/16 [Fioricet 50-325-40] Apixaban [Eliquis] 5 mg PO BID #60 tab 06/15/19 Aspirin 81 mg PO DAILY chew 06/15/19 Atorvastatin [Lipitor] 40 mg PO DAILY #30 tab 06/15/19 Escitalopram [Lexapro] 5 mg PO DAILY #30 tablet 06/15/19 Losartan [Cozaar] 50 mg PO DAILY #30 tab 06/15/19 Furosemide [Lasix] 40 mg PO DAILY #10 tab 07/08/19 Allergies Allergy/AdvReac Type Severity Reaction Status Date / Time No Known Allergies Allergy Verified 07/08/19 13:05 Review of Systems ROS Statement: Those systems with pertinent positive or pertinent negative responses have been documented in the HPI. ROS Other: All systems not noted in ROS Statement are negative. Past Medical History Past Medical History: COPD, CVA/TIA, GERD/Reflux, Hyperlipidemia, Hypertension, Osteoarthritis (OA), Prostate Disorder Additional Past Medical History / Comment(s): Previous history of a pneumothorax requiring a Thoravent insertion back in 2016, COPD back pain; restless leg syndrome; stroke about two years ago, TIA, hard of hearing right side, colonic polyps, diverticulosis. History of Any Multi-Drug Resistant Organisms: None Reported Past Surgical History: Hernia Repair, Orthopedic Surgery Additional Past Surgical History / Comment(s): sinus surgery, colonoscopy and EGD this year that showed a colonic polyps and diverticulosis. Past Anesthesia/Blood Transfusion Reactions: No Reported Reaction Past Psychological History: No Psychological Hx Reported Smoking Status: Former smoker Past Alcohol Use History: None Reported, Occasional Past Drug Use History: None Reported - Past Family History Father History Unknown: Yes Family Medical History: No Reported History, Unable to Obtain (Patient is adopted and does not know much about his family) Mother History Unknown: Yes General Exam Limitations: no limitations General appearance: alert, in no apparent distress Head exam: Present: atraumatic, normocephalic, normal inspection Eye exam: Present: normal appearance, PERRL, EOMI. Absent: scleral icterus, conjunctival injection, periorbital swelling ENT exam: Present: normal exam, mucous membranes moist Neck exam: Present: normal inspection. Absent: tenderness, meningismus, lymphadenopathy Respiratory exam: Present: normal lung sounds bilaterally. Absent: respiratory distress, wheezes, rales, rhonchi, stridor Cardiovascular Exam: Present: regular rate, normal rhythm, normal heart sounds. Absent: systolic murmur, diastolic murmur, rubs, gallop, clicks GI/Abdominal exam: Present: soft, normal bowel sounds. Absent: distended, tenderness, guarding, rebound, rigid Extremities exam: Present: normal inspection, full ROM, normal capillary refill, pedal edema, calf tenderness (Bilateral lower extremity edema, 2+ pitting). Absent: tenderness, joint swelling Back exam: Present: normal inspection Neurological exam: Present: alert, oriented X3, CN II-XII intact Psychiatric exam: Present: normal affect, normal mood Skin exam: Present: warm, dry, intact, normal color. Absent: rash Course Vital Signs 07/08/19 12:48 Temperature 98.2 F Pulse Rate 84 Respiratory 18 Rate Blood Pressure 111/80 O2 Sat by Pulse 94 L Oximetry - Reevaluation(s) Reevaluation #1: 07/08/19 14:12 Medical record and prior hospitalization or reviewed Reevaluation #2: 07/08/19 14:12 states patient is of about 30 pounds from his baseline 07/08/19 14:12 states he also follow up with primary care encouraged to come to admit patient to emergency room Reevaluation #3: 07/08/19 15:06 Patient without significant complaint Medical Decision Making - Medical Decision Making 69-year-old male the ER for evaluation. Patient does say for evaluation regards to lower extremity edema. No significant shortness of breath. Patient replace back on his Lasix and follow-up with primary care later this week - Lab Data Result diagrams: 07/08/19 13:25 07/08/19 13:25 Lab Results 07/08/19 07/08/19 07/08/19 Range/Units 13:25 13:25 13:25 WBC 8.2 (3.8-10.6) k/uL RBC 4.62 (4.30-5.90) m/uL Hgb 13.6 (13.0-17.5) gm/dL Hct 41.3 (39.0-53.0) % MCV 89.4 (80.0-100.0) fL MCH 29.3 (25.0-35.0) pg MCHC 32.8 (31.0-37.0) g/dL RDW 14.2 (11.5-15.5) % Plt Count 197 (150-450) k/uL Neutrophils % 68 % Lymphocytes % 19 % Monocytes % 6 % Eosinophils % 3 % Basophils % 2 % Neutrophils # 5.6 (1.3-7.7) k/uL Lymphocytes # 1.6 (1.0-4.8) k/uL Monocytes # 0.5 (0-1.0) k/uL Eosinophils # 0.2 (0-0.7) k/uL Basophils # 0.1 (0-0.2) k/uL Sodium 139 (137-145) mmol/L Potassium 3.9 (3.5-5.1) mmol/L Chloride 103 (98-107) mmol/L Carbon Dioxide 32 H (22-30) mmol/L Anion Gap 4 mmol/L BUN 16 (9-20) mg/dL Creatinine 0.86 (0.66-1.25) mg/dL Est GFR (CKD-EPI)AfAm >90 (>60 ml/min/1.73 sqM) Est GFR (CKD-EPI)NonAf 87 (>60 ml/min/1.73 sqM) Glucose 98 (74-99) mg/dL Calcium 8.3 L (8.4-10.2) mg/dL Magnesium 2.0 (1.6-2.3) mg/dL Total Bilirubin 0.5 (0.2-1.3) mg/dL AST 17 (17-59) U/L ALT 23 (21-72) U/L Alkaline Phosphatase 84 (38-126) U/L Creatine Kinase 75 (55-170) U/L Troponin I (0.000-0.034) ng/mL NT-Pro-B Natriuret Pep 53 pg/mL Total Protein 5.3 L (6.3-8.2) g/dL Albumin 3.0 L (3.5-5.0) g/dL 07/08/19 Range/Units 13:25 WBC (3.8-10.6) k/uL RBC (4.30-5.90) m/uL Hgb (13.0-17.5) gm/dL Hct (39.0-53.0) % MCV (80.0-100.0) fL MCH (25.0-35.0) pg MCHC (31.0-37.0) g/dL RDW (11.5-15.5) % Plt Count (150-450) k/uL Neutrophils % % Lymphocytes % % Monocytes % % Eosinophils % % Basophils % % Neutrophils # (1.3-7.7) k/uL Lymphocytes # (1.0-4.8) k/uL Monocytes # (0-1.0) k/uL Eosinophils # (0-0.7) k/uL Basophils # (0-0.2) k/uL Sodium (137-145) mmol/L Potassium (3.5-5.1) mmol/L Chloride (98-107) mmol/L Carbon Dioxide (22-30) mmol/L Anion Gap mmol/L BUN (9-20) mg/dL Creatinine (0.66-1.25) mg/dL Est GFR (CKD-EPI)AfAm (>60 ml/min/1.73 sqM) Est GFR (CKD-EPI)NonAf (>60 ml/min/1.73 sqM) Glucose (74-99) mg/dL Calcium (8.4-10.2) mg/dL Magnesium (1.6-2.3) mg/dL Total Bilirubin (0.2-1.3) mg/dL AST (17-59) U/L ALT (21-72) U/L Alkaline Phosphatase (38-126) U/L Creatine Kinase (55-170) U/L Troponin I <0.012 (0.000-0.034) ng/mL NT-Pro-B Natriuret Pep pg/mL Total Protein (6.3-8.2) g/dL Albumin (3.5-5.0) g/dL - EKG Data -: EKG Interpreted by Me (EKG shows sinus rhythm rate of 77, GA 180, QRS 72, QTc 441) - Radiology Data Radiology results: report reviewed (Chest x-rays negative for acute disease), image reviewed Disposition Clinical Impression: Bilateral leg edema Disposition: HOME SELF-CARE Condition: Good Instructions (If sedation given, give patient instructions): Leg Edema (ED) Prescriptions: Furosemide [Lasix] 40 mg PO DAILY #10 tab Is patient prescribed a controlled substance at d/c from ED?: No Referrals: Dyana Giordano MD [Primary Care Provider] - 1-2 days
[2019-07-08] MEDS ORDERED: FUROSEMIDE 10 MG/ML 4 ML VIAL IV STA (13:44)
[2019-07-08 14:02] LABS: Basophils # (A) 0.1 k/uL (0-0.2); Basophils % (A) 2 %; Eosinophils # (A) 0.2 k/uL (0-0.7); Eosinophils % (A) 3 %; HCT 41.3 % (39.0-53.0); HGB 13.6 gm/dL (13.0-17.5); Lymphocytes # (A) 1.6 k/uL (1.0-4.8); Lymphocytes % (A) 19 %; MCH 29.3 pg (25.0-35.0); MCHC 32.8 g/dL (31.0-37.0); MCV 89.4 fL (80.0-100.0); Mean Platelet Volume 6.9; Monocytes # (A) 0.5 k/uL (0-1.0); Monocytes % (A) 6 %; Neutrophils # (A) 5.6 k/uL (1.3-7.7); Neutrophils % (A) 68 %; Platelet Count 197 k/uL (150-450); RBC 4.62 m/uL (4.30-5.90); RDW 14.2 % (11.5-15.5); WBC 8.2 k/uL (3.8-10.6)
[2019-07-08 14:42] LABS: ALT 23 U/L (21-72); AST 17 U/L (17-59); African American GFR (CKD) >90 (>60 ml/min/1.73 sqM); Alkaline Phosphatase 84 U/L (38-126); Anion Gap 4 mmol/L; Blood Urea Nitrogen 16 mg/dL (9-20); Calcium 8.3 mg/dL (8.4-10.2); Carbon Dioxide 32 mmol/L (22-30); Chloride 103 mmol/L (98-107); Creatine Kinase 75 U/L (55-170); Glucose 98 mg/dL (74-99); Potassium 3.9 mmol/L (3.5-5.1); Sodium 139 mmol/L (137-145); Total Bilirubin 0.5 mg/dL (0.2-1.3); Total Protein 5.3 g/dL (6.3-8.2)
--- NOTE | 2019-07-08 14:47 | XR ---
EXAMINATION TYPE: XR chest 2V DATE OF EXAM: 07/08/2019 COMPARISON: 06/13/2019 HISTORY: Shortness of breath and edema TECHNIQUE: Frontal and lateral views of the chest are obtained. FINDINGS: Emphysematous changes are seen of the lungs with bullous emphysematous change of the right upper lobe. New right midlung linear opacity is seen. Stable left basilar atelectasis. Small hiatal hernia. Eventration of the right hemidiaphragm. Cardia mediastinal silhouette is stable. No acute oss eous pathology. IMPRESSION: Extensive bullous emphysematous changes of the right upper lobe. New right midlung opaci ty appears linear and is favored to represent atelectasis although pneumonia is possible in the appro priate clinical setting.
[2019-07-08] MEDS ORDERED: BUTALB/APAP/CAFF 50-325-40MG TAB PO STA (15:08)
[2019-07-08 15:14] VITALS: BP 120/94; PULSE 88; RESP 16
== END 2019-07-08 15:21 | disposition home or self-care (01) ==
LOC: EC 12:34
DX: R60.0 Localized edema (principal); I11.0 Hypertensive heart disease with heart failure; I50.9 Heart failure, unspecified; J44.9 Chronic obstructive pulmonary disease, unspecified; K21.9 Gastro-esophageal reflux disease without esophagitis; N42.9 Disorder of prostate, unspecified; M19.90 Unspecified osteoarthritis, unspecified site; Z79.01 Long term (current) use of anticoagulants; Z79.899 Other long term (current) drug therapy; Z79.51 Long term (current) use of inhaled steroids; Z86.711 Personal history of pulmonary embolism; Z87.891 Personal history of nicotine dependence; Z86.73 Personal history of transient ischemic attack (TIA), and cerebral infarction without residual deficits; Z53.9 Procedure and treatment not carried out, unspecified reason
CPT/HCPCS: 36415; 93005; 83880; 80053; 82550; 83735; 84484; 85025; 71046; 99285; 96374; J1940

== ENCOUNTER 2019-07-13 11:32 | Inpatient (IN) | payer MEDICARE ==
[2019-07-13] MEDS ORDERED: IPRATROPIUM-ALBUTEROL 3 ML NEB INHALATION PRN (12:50)
[2019-07-13] MEDS ORDERED: BUTALB/APAP/CAFF 50-325-40MG TAB PO PRN (12:53)
[2019-07-13 13:14] LABS: HGB 14.2 gm/dL (13.0-17.5); MCH 29.7 pg (25.0-35.0); MCHC 33.1 g/dL (31.0-37.0); MCV 89.5 fL (80.0-100.0); Platelet Count 172 k/uL (150-450); RDW 14.1 % (11.5-15.5); WBC 5.3 k/uL (3.8-10.6)
[2019-07-13 13:30] LABS: ALT 33 U/L (21-72); AST 25 U/L (17-59); African American GFR (CKD) >90 (>60 ml/min/1.73 sqM); Albumin 3.3 g/dL (3.5-5.0); Alkaline Phosphatase 80 U/L (38-126); Anion Gap 6 mmol/L; Blood Urea Nitrogen 11 mg/dL (9-20); Calcium 8.4 mg/dL (8.4-10.2); Carbon Dioxide 32 mmol/L (22-30); Chloride 101 mmol/L (98-107); Glucose 93 mg/dL (74-99); Potassium 4.2 mmol/L (3.5-5.1); Sodium 139 mmol/L (137-145); Total Bilirubin 0.4 mg/dL (0.2-1.3)
[2019-07-13] MEDS: methylPREDNISolone SOD SUCCI 125 MG/2 ML VIAL IV SCH ×2 (13:59→18:21)
[2019-07-13] MEDS: ACETAMINOPHEN TAB 325 MG TAB PO PRN (14:01)
[2019-07-13] MEDS: SODIUM CHLORIDE 0.9% 1,000 ML IV SCH (14:03)
[2019-07-13 14:13] LABS: Glucose,Whole Blood 86 mg/dL (75-99)
--- NOTE | 2019-07-13 16:06 | XR ---
EXAMINATION TYPE: XR chest 2V DATE OF EXAM: 07/13/2019 COMPARISON: 07/08/2019 HISTORY: 69-year-old male COPD exacerbation TECHNIQUE: Frontal and lateral views FINDINGS: Heart normal size. Upper lung lucencies. Patchy bibasilar densities, increased at the right base and improved at the right mid to lower lung. No pleural effusion. IMPRESSION: COPD with bullous emphysema. Patchy bibasilar areas of atelectasis versus infiltrates, particularly o n the right.
[2019-07-13 17:19] LABS: Glucose,Whole Blood 149 mg/dL (75-99)
[2019-07-13] MEDS: IPRATROPIUM-ALBUTEROL 3 ML NEB INHALATION SCH ×2 (17:23→22:10)
[2019-07-13] MEDS: INSULIN ASPART (NovoLOG) 100 UNIT/ML VIAL SQ SCH ×2 (17:55→20:55)
--- NOTE | 2019-07-13 18:26 | P.HPIM ---
History of Present Illness H&P Date: 07/14/19 Chief Complaint: Shortness of breath wheezing This is a 68-year-old pleasant gentleman known to my practice, recently admitted with pulmonary emboli, has long-standing bullous emphysema, follows with Dr. Gastelum. She also has prior TIA, GERD hyperlipidemia, hypertension, ost eoarthritis. He presents to the clinic for follow-up today, and was seen in the emergency room approximately one week ago for shortness of last July 08 2019, for which chest x-ray shows atelectasis against pneumonia, and was prescribed Lasix for discharge. He presents with increasing shortness of breath, increasing purulent cough, and low-grade fever. Patient came back from a recent trip on a cruise him a no sick contacts. He currently is on anticoagulation for pulmonary emboli, diagnosed 06/12/2019, he now has O2 at nighttime 2-3 L nasal cannula, none during the day, and nebulized treatments has gotten him no relief. He was directly admitted, for suspected purulent bronchitis, pneumonitis, COPD exacerbation Review of Systems Constitutional: Reports as per HPI, Reports chills, Denies anorexia, Denies chronic headaches, Denies chronic pain, Denies daytime sleepiness, Denies fatigue, Denies fever, Denies lethargy, Denies malaise, Denies night sweats, Denies poor appetite, Denies sweats, Denies weakness, Denies weight gain, Denies weight loss Ears, nose, mouth and throat: Reports as per HPI, Denies ant. neck pain, Denies bleeding gums, Denies dental pain, Denies dysphagia, Denies epistaxis, Denies headache, Denies hoarseness, Denies mouth pain, Denies nasal congestion, Denies nasal discharge, Denies neck fullness/pressure, Denies neck lump, Denies nose pain, Denies odynophagia, Denies post-nasal drip, Denies sinus pain, Denies sinus pressure, Denies swelling in mouth, Denies swelling in throat, Denies sore throat, Denies vertigo, Denies voice changes Cardiovascular: Reports as per HPI, Denies chest pain, Denies claudication, Denies decreased exercise tolerance, Denies dyspnea on exertion, Denies edema, Denies high blood pressure, Denies irregular heart beat, Denies leg edema, Denies lightheadedness, Denies orthopnea, Denies palpitations, Denies paroxysmal nocturnal dyspnea, Denies phlebitis, Denies rapid heart beat, Denies shortness of breath, Denies syncope Respiratory: Reports as per HPI, Reports cough, Reports cough with sputum, Reports dyspnea, Reports home oxygen, Reports respiratory infections, Reports wheezing, Denies congestion, Denies excessive sputum, Denies hemoptysis, Denies pain, Denies pain on inspiration, Denies pleurisy, Denies sleep apnea, Denies snoring Gastrointestinal: Reports as per HPI, Denies abdominal pain, Denies belching, Denies bloating, Denies BRBPR, Denies change in bowel habits, Denies coffee ground emesis, Denies constipation, Denies diarrhea, Denies dyspepsia, Denies early satiety, Denies excessive gas, Denies heartburn, Denies hematemesis, Denies hematochezia, Denies indigestion, Denies jaundice, Denies lactose intolerance, Denies loss of appetite, Denies melena, Denies nausea, Denies vomiting Genitourinary: Reports as per HPI, Denies decreased libido, Denies difficulties fathering child, Denies discharge, Denies dysuria, Denies erectile dysfunction, Denies flank pain, Denies genital pain, Denies genital sores, Denies hematuria, Denies impotence, Denies incontinence, Denies kidney stones, Denies nocturia, Denies polyuria, Denies testicular lump, Denies testicular pain, Denies urinary frequency, Denies urinary hesitancy, Denies urinary retention Musculoskeletal: Reports as per HPI Integumentary: Reports as per HPI, Denies acne, Denies boils, Denies brittle nails, Denies change in hair/nails, Denies color changes, Denies darkening of skin, Denies depigmentation, Denies dryness, Denies foot/leg ulcers, Denies growths, Denies hirsutism, Denies lesions, Denies onychomycosis, Denies pru ritus, Denies rash, Denies sores, Denies striae, Denies unusual bruising, Denies wounds Neurological: Reports as per HPI, Denies aphasia, Denies ataxia, Denies balance difficulties, Denies burning pain, Denies change in mentation, Denies change in smell/taste, Denies change in speech, Denies confusion, Denies convulsions, Denies double vision, Denies gait dysfunction, Denies head injury, Denies headaches, Denies hearing difficulties, Denies lack of coordination, Denies loss of vision, Denies memory loss, Denies migraines, Denies motor disturbance, Denies numbness, Denies paralysis, Denies paresthesias, Denies seizures, Denies sensory deficit, Denies spasticity, Denies syncope, Denies tic, Denies tingling, Denies transient paralysis, Denies tremors, Denies vertigo, Denies weakness, Denies visual changes Psychiatric: Reports as per HPI, Reports insomnia, Denies anhedonia, Denies anxiety, Denies anxiety attacks, Denies change in appetite, Denies change in libido, Denies change in sleep habits, Denies confusion, Denies depression, Denies difficulty concentrating, Denies disorientation, Denies hallucinations, Denies hopelessness, Denies irritability, Denies memory loss, Denies mood swings, Denies paranoia, Denies sadness/tearfulness, Denies sleep disturbances, Denies suicidal ideation Endocrine: Reports as per HPI, Denies cold intolerance, Denies deepening of the voice, Denies excessive sweating, Denies excessive thirst, Denies fatigue, Denies flushing, Denies heat intolerance, Denies high blood sugars, Denies increase in ring/shoe/hat size, Denies low blood sugars, Denies nocturia, Denies palpitations, Denies polydipsia, Denies polyphagia, Denies polyuria, Denies proptosis, Denies recent glucocorticoid use, Denies thyroid mass, Denies weight change Hematologic/Lymphatic: Reports as per HPI Allergic/Immunologic: Reports as per HPI Past Medical History Past Medical History: COPD, CVA/TIA, GERD/Reflux, Hyperlipidemia, Hypertension, Osteoarthritis (OA), Pneumonia, Prostate Disorder, Respiratory Disorder Additional Past Medical History / Comment(s): Pt recently admitted to [facility] on with possible pulmonary embolism/R lower lobe pneumonia/acute hypoxic failure.portal bollous emphysema. Other hx: Recent fluid retention for which pt takes lasix, previous history of a pneumothorax requiring a Thoravent insertion back in 2016, home oxygen at 2L/NC prn, "borderline" diabetes, low back pain with bilateral sciatica; restless leg syndrome; migraines, TIA about two years ago, BPH, hard of hearing bilaterally, benign colonic polyps, diverticulosis. History of Any Multi-Drug Resistant Organisms: None Reported Past Surgical History: Hernia Repair, Orthopedic Surgery, Tonsillectomy Additional Past Surgical History / Comment(s): Septoplasty/ESSS, EGD, colonoscopy with benign polyp, R inguinal hernia, umbilical hernia, pain clinic procedures for back pain, atilio fundloplication Past Anesthesia/Blood Transfusion Reactions: No Reported Reaction Smoking Status: Former smoker - Past Family History Father History Unknown: Yes Family Medical History: No Reported History, Unable to Obtain (Patient is adopted and does not know much about his family) Additional Family Medical History / Comment(s): Pt was adopted. Mother History Unknown: Yes Additional Family Medical History / Comment(s): Pt was adopted. Medications and Allergies Home Medications Medication Instructions Recorded Confirmed Type Finasteride [Proscar] 5 mg PO HS 10/21/14 07/13/19 History Gabapentin [Neurontin] 600 mg PO QAM 10/21/14 07/13/19 History HYDROcodone/APAP 7.5-325MG [[place] 1 tab PO TID 10/21/14 07/13/19 History 7.5-325] Lansoprazole 30 mg PO DAILY 10/21/14 07/13/19 History Tamsulosin HCl [Flomax] 0.4 mg PO BID 10/21/14 07/13/19 History Albuterol Inhaler [Ventolin Hfa 2 puff INHALATION RT-Q6H PRN 04/08/16 07/13/19 History Inhaler] Gabapentin 1,200 mg PO HS 04/09/16 07/13/19 History traZODone HCL 150 mg PO HS 04/09/16 07/13/19 History Butalb/APAP/Caff 50-325-40Mg 1 tab PO Q4H PRN #30 tablet 04/14/16 07/13/19 Rx [Fioricet 50-325-40] Albuterol Nebulized [Ventolin 2.5 mg INHALATION RT-QID PRN 06/12/19 07/13/19 History Nebulized] Apixaban [Eliquis] 5 mg PO BID #60 tab 06/15/19 07/13/19 Rx Aspirin 81 mg PO DAILY chew 06/15/19 07/13/19 Rx Atorvastatin [Lipitor] 40 mg PO DAILY #30 tab 06/15/19 07/13/19 Rx Escitalopram [Lexapro] 5 mg PO DAILY #30 tablet 06/15/19 07/13/19 Rx Losartan [Cozaar] 50 mg PO DAILY #30 tab 06/15/19 07/13/19 Rx Furosemide [Lasix] 40 mg PO DAILY #10 tab 07/08/19 07/13/19 Rx ALPRAZolam [Xanax] 0.5 mg PO HS 07/13/19 07/13/19 History Allergies Allergy/AdvReac Type Severity Reaction Status Date / Time No Known Allergies Allergy Verified 07/13/19 13:24 Physical Exam Vitals: Vital Signs Temp Pulse Pulse Pulse Resp BP Pulse Ox 07/13/19 17:35 82 07/13/19 17:23 80 07/13/19 16:00 81 18 07/13/19 15:00 98.1 F 106 H 18 120/68 96 07/13/19 14:36 18 07/13/19 12:15 98.0 F 81 15 119/66 91 L Intake and Output 07/13/19 07/13/19 07/13/19 06:59 14:59 22:59 Intake Total 325 Balance 325 Intake: Intake, IV Titration 75 Amount Sodium Chloride 0.9% 1, 75 000 ml @ 75 mls/hr IV . [id number] [facility] Rx#:[id number] Oral 250 Other: Weight 85.275 kg - Constitutional General appearance: cooperative, mild distress - EENT Eyes: anicteric sclerae, EOMI, dentition normal, normal appearance ENT: NA/AT, normal oropharynx - Neck Neck: normal ROM - Respiratory Respiratory: bilateral: CTA, negative: diminished, dullness, rales - Cardiovascular Rhythm: regular Heart sounds: normal: S1, S2 Abnormal Heart Sounds: no systolic murmur, no diastolic murmur, no rub, no S3 Gallop, no S4 Gallop, no click, no other - Gastrointestinal General gastrointestinal: normal bowel sounds, soft - Integumentary Integumentary: normal, normal turgor - Neurologic Neurologic: CNII-XII intact - Musculoskeletal Musculoskeletal: gait normal - Psychiatric Psychiatric: A&O x's 3, appropriate affect, intact judgment & insight Results CBC & Chem 7: 07/13/19 13:02 07/13/19 13:02 Labs: Abnormal Lab Results - Last 24 Hours (Table) 07/13/19 07/13/19 Range/Units 13:02 17:18 Carbon Dioxide 32 H (22-30) mmol/L POC Glucose (mg/dL) 149 H (75-99) mg/dL Total Protein 6.0 L (6.3-8.2) g/dL Albumin 3.3 L (3.5-5.0) g/dL Laboratory Results WBC 5.3 k/uL (3.8-10.6) 07/13/19 13:02 RBC 4.80 m/uL (4.30-5.90) 07/13/19 13:02 Hgb 14.2 gm/dL (13.0-17.5) 07/13/19 13:02 Hct 43.0 % (39.0-53.0) 07/13/19 13:02 MCV 89.5 fL (80.0-100.0) 07/13/19 13:02 MCH 29.7 pg (25.0-35.0) 07/13/19 13:02 MCHC 33.1 g/dL (31.0-37.0) 07/13/19 13:02 RDW 14.1 % (11.5-15.5) 07/13/19 13:02 Plt Count 172 k/uL (150-450) 07/13/19 13:02 Sodium 139 mmol/L (137-145) 07/13/19 13:02 Potassium 4.2 mmol/L (3.5-5.1) 07/13/19 13:02 Chloride 101 mmol/L (98-107) 07/13/19 13:02 Carbon Dioxide 32 mmol/L (22-30) H 07/13/19 13:02 Anion Gap 6 mmol/L 07/13/19 13:02 BUN 11 mg/dL (9-20) 07/13/19 13:02 Creatinine 0.97 mg/dL (0.66-1.25) 07/13/19 13:02 Est GFR (CKD-EPI)AfAm >90 (>60 ml/min/1.73 sqM) 07/13/19 13:02 Est GFR (CKD-EPI)NonAf 79 (>60 ml/min/1.73 sqM) 07/13/19 13:02 Glucose 93 mg/dL (74-99) 07/13/19 13:02 POC Glucose (mg/dL) 149 mg/dL (75-99) H 07/13/19 17:18 POC Glu [employer] 07/13/19 17:18 Calcium 8.4 mg/dL (8.4-10.2) 07/13/19 13:02 Total Bilirubin 0.4 mg/dL (0.2-1.3) 07/13/19 13:02 AST 25 U/L (17-59) 07/13/19 13:02 ALT 33 U/L (21-72) 07/13/19 13:02 Alkaline Phosphatase 80 U/L (38-126) 07/13/19 13:02 Total Protein 6.0 g/dL (6.3-8.2) L 07/13/19 13:02 Albumin 3.3 g/dL (3.5-5.0) L 07/13/19 13:02 Thrombosis Risk Factor Assmnt - DVT/VTE Prophylaxis DVT/VTE Prophylaxis: Pharmacologic Prophylaxis ordered - Choose All That Apply Any of the Below Risk Factors Present?: Yes Each Factor Represents 1 point: Abnormal pulmonary function (COPD), Obesity (BMI >25), Serious lung disease incl. pneumonia (< 1month) Other Risk Factors: Yes Each Risk Factor Represents 2 Points: Age 61-74 years Each Risk Factor Represents 3 Points: History of DVT/PE Other congenital or acquired thrombophilia - If yes, enter type in comment: No Thrombosis Risk Factor Assessment Total Risk Factor Score: 8 Thrombosis Risk Factor Assessment Level: High Risk Assessment and Plan Plan: 1. COPD exacerbation, patient to be started started on IV Solu-Medrol, nebulized albuterol Atrovent, budesonide consult with Dr. Rascon/ dr Gastelum chest x-ray, sputum cultures Pro-calcitonin level to be done, gram-negative pneumonia suspected can't rule out facility acquired pneumonia, Zosyn to be started 2. Recent pulmonary embolism patient to continue on eliquis for 6 month treatment till November 2019 3 Acute on chronic respiratory failure with hypoxia provide O2 continuous, home O2 requirements are at nighttime 2-3 L 4. Hypertension. Lasix 40 mg daily, Cozaar 50 mg daily aspirin 81 mg daily 5. Hyperlipidemia. Lipitor 40 mg daily 6 Benign prostatic hypertrophy. Proscar 5 mg at bedtime Flomax 0.4 mg twice a day no changes made 7. Chronic pain on gabapentin [place] 7.5-25 8. Anxiety disorder, with history of PTSD, with insomnia stable on trazodone 150 mg at bedtime Xanax 0.5 mg at bedtime GI prophylaxis DVT prophylaxis
[2019-07-13] MEDS: HYDROcodone/APAP 7.5-325MG 1 EACH TAB PO PRN (19:20)
[2019-07-13] MEDS: PIPERACILLIN-TAZOBACTAM 3.375 GM in SODIUM CHLORIDE 0.9% 100 ML IVPB SCH (19:55)
[2019-07-13] MEDS: TAMSULOSIN 0.4 MG CAP.ER.24H PO SCH (19:56)
[2019-07-13] MEDS: APIXABAN 5 MG TAB PO SCH (19:56)
[2019-07-13] MEDS: FAMOTIDINE 20 MG TAB PO SCH (19:56)
[2019-07-13] MEDS: traZODone HCL 50 MG TAB PO SCH (19:56)
[2019-07-13] MEDS: GABAPENTIN 400 MG CAP PO SCH (19:56)
[2019-07-13] MEDS: ALPRAZolam 0.5 MG TAB PO SCH (19:56)
[2019-07-13] MEDS: FINASTERIDE 5 MG TAB PO SCH (19:57)
[2019-07-13 20:54] LABS: Glucose,Whole Blood 250 mg/dL (75-99)
[2019-07-13] MEDS: BUDESONIDE 1 MG/2 ML NEBU INHALATION SCH (22:10)
[2019-07-14] MEDS: methylPREDNISolone SOD SUCCI 125 MG/2 ML VIAL IV SCH ×5 (00:28→23:19)
[2019-07-14] MEDS: PIPERACILLIN-TAZOBACTAM 3.375 GM in SODIUM CHLORIDE 0.9% 100 ML IVPB SCH ×4 (00:28→23:19)
[2019-07-14] MEDS: SODIUM CHLORIDE 0.9% 1,000 ML IV SCH (04:06)
[2019-07-14 07:13] LABS: Glucose,Whole Blood 145 mg/dL (75-99)
[2019-07-14 07:45] LABS: Basophils % (A) 0 %; Eosinophils % (A) 0 %; HCT 42.9 % (39.0-53.0); Lymphocytes # (A) 0.6 k/uL (1.0-4.8); Lymphocytes % (A) 9 %; MCH 28.7 pg (25.0-35.0); MCHC 32.6 g/dL (31.0-37.0); MCV 88.1 fL (80.0-100.0); Mean Platelet Volume 6.2; Monocytes # (A) 0.2 k/uL (0-1.0); Monocytes % (A) 4 %; Neutrophils # (A) 5.6 k/uL (1.3-7.7); Neutrophils % (A) 87 %; Platelet Count 186 k/uL (150-450); RBC 4.87 m/uL (4.30-5.90); RDW 13.8 % (11.5-15.5); WBC 6.4 k/uL (3.8-10.6)
[2019-07-14 07:46] LABS: ALT 28 U/L (21-72); AST 16 U/L (17-59); African American GFR (CKD) >90 (>60 ml/min/1.73 sqM); Albumin 3.3 g/dL (3.5-5.0); Alkaline Phosphatase 81 U/L (38-126); Anion Gap 7 mmol/L; Blood Urea Nitrogen 14 mg/dL (9-20); Calcium 8.7 mg/dL (8.4-10.2); Carbon Dioxide 28 mmol/L (22-30); Chloride 105 mmol/L (98-107); Glucose 153 mg/dL (74-99); Sodium 140 mmol/L (137-145); Total Bilirubin 0.4 mg/dL (0.2-1.3)
[2019-07-14] MEDS: IPRATROPIUM-ALBUTEROL 3 ML NEB INHALATION SCH ×4 (07:50→21:31)
[2019-07-14] MEDS: BUDESONIDE 1 MG/2 ML NEBU INHALATION SCH ×2 (07:50→21:31)
[2019-07-14] MEDS: INSULIN ASPART (NovoLOG) 100 UNIT/ML VIAL SQ SCH ×4 (08:35→22:02)
[2019-07-14] MEDS: FAMOTIDINE 20 MG TAB PO SCH ×2 (08:36→22:00)
[2019-07-14] MEDS: ATORVASTATIN 40 MG TAB PO SCH (08:36)
[2019-07-14] MEDS: ASPIRIN 81 MG PO SCH (08:36)
[2019-07-14] MEDS: TAMSULOSIN 0.4 MG CAP.ER.24H PO SCH ×2 (08:36→22:02)
[2019-07-14] MEDS: ESCITALOPRAM 5 MG TAB PO SCH (08:36)
[2019-07-14] MEDS: APIXABAN 5 MG TAB PO SCH ×2 (08:36→22:00)
[2019-07-14] MEDS: FUROSEMIDE 40 MG TAB PO SCH (08:36)
[2019-07-14] MEDS: GABAPENTIN 300 MG CAP PO SCH (08:37)
[2019-07-14] MEDS: LOSARTAN 50 MG TAB PO SCH (08:37)
[2019-07-14] MEDS: PANTOPRAZOLE 40 MG TABLET PO SCH (08:37)
[2019-07-14] MEDS: HYDROcodone/APAP 7.5-325MG 1 EACH TAB PO PRN ×2 (08:41→17:33)
[2019-07-14 13:28] LABS: Glucose,Whole Blood 130 mg/dL (75-99)
--- NOTE | 2019-07-14 14:06 | P.PN ---
Subjective Progress Note Date: 07/14/19 This is a 69-year-old male patient of Dr. Giordano, recently admitted with pulmonary emboli, has long-standing bullous emphysema, follows with Dr. Gastelum. He also has past mental history of TIA, GERD hyperlipidemia, hypertension, osteoarthritis. He presents to the clinic for follow-up today, and was seen in the emergency room approximately one week ago for shortness of breath July 08 2019, for which chest x-ray shows atelectasis against pneumonia, and was prescribed Lasix for discharge. He presents with increasing shortness of breath, increasing purulent cough, and low-grade fever. Patient came back from a recent trip on a cruise him a no sick contacts. He currently is on anticoagulation for pulmonary emboli, diagnosed 06/12/2019, he now has O2 at nighttime 2-3 L nasal cannula, none during the day, and nebulized treatments has gotten him no relief. He was directly admitted, for suspected purulent bronchitis, pneumonitis, COPD exacerbation 07/14: Patient has been afebrile, heart rate 70 to 80s, blood pressure 127/66, pulse ox 93-95% on 2 L nasal cannula. CBC is unremarkable, electrolytes and renal function within normal limits, liver function tests within normal limits. Blood sugars running between 145 and 250. Albumin 3.3. Sputum culture is in progress. Pro-calcitonin is pending. Chest x-ray reveals COPD with bullous emphysema. Patchy bibasilar areas of atelectasis versus infiltrates particularly on the right. Dr. Villagomez has ordered CAT scan of the chest. Reviewed echocardiogram with the patient from last admission. Patient states his breathing is better today. He slept well last night. He continues to have cough. He denies having a bowel movement. Objective - Vital Signs Vital signs: Vital Signs Temp 97.5 F L 07/14/19 05:00 Pulse 80 07/14/19 08:05 Resp 18 07/14/19 07:50 BP 127/66 07/14/19 05:00 Pulse Ox 93 L 07/14/19 07:58 Intake & Output 07/13/19 07/14/19 07/14/19 18:59 06:59 18:59 Intake Total 325 1295 Balance 325 1295 Weight 85.275 kg Intake: Intake, IV Titration 75 575 Amount Piperacillin-Tazobactam 3 200 .375 gm In Sodium Chloride 0.9% 100 ml @ 25 mls/hr IVPB Q8HR [facility] Rx# :[id number] Sodium Chloride 0.9% 1, 75 375 000 ml @ 75 mls/hr IV . [id number] [facility] Rx#:[id number] Oral 250 720 Other: # Voids 1 - Exam Review Of Systems: Constitutional: No fever, no chills, no night sweats. No weight change. No weakness, fatigue or lethargy. No daytime sleepiness. EENT: No headache. No blurred vision or double vision, no loss of vision. no dizziness. No nasal drainage or congestion. No epistaxis. No sore throat. Lungs: Reports shortness of breath, reports cough, no sputum production. Reports wheezing. Cardiovascular: No chest pain, no lower extremity edema. No palpitations. No paroxysmal nocturnal dyspnea. No orthopnea. No lightheadedness or dizziness. No syncopal episodes. Abdominal: No abdominal pain. No nausea, vomiting. No diarrhea. No constipation. No bloody or tarry stools. Genitourinary: No dysuria, increased frequency, urgency. No urinary retention. Musculoskeletal: No myalgias. No muscle weakness, no gait dysfunction, no frequent falls. No back pain. No neck pain. Integumentary: No wounds, no lesions. No rash or pruritus. No unusual bruising. No change in hair or nails. Neurologic: No aphasia. No facial droop. No change in mentation. No head injury. No headache. No paralysis. No paresthesia. Psychiatric: No depression. No anxiety. No mood swings. Endocrine: No abnormal blood sugars. No weight change. No excessive sweating or thirst. No cold intolerance. - Constitutional General appearance: cooperative, no distress - EENT Eyes: anicteric sclerae, EOMI, dentition normal, normal appearance ENT: NA/AT, normal oropharynx - Neck Neck: normal ROM - Respiratory Respiratory: bilateral: mild expiratory wheeze, diminished, negative: dullness, rales - Cardiovascular Rhythm: regular Heart sounds: normal: S1, S2 Abnormal Heart Sounds: no systolic murmur, no diastolic murmur, no rub, no S3 Gallop, no S4 Gallop, no click, no other - Gastrointestinal General gastrointestinal: normal bowel sounds, soft - Integumentary Integumentary: normal, normal turgor - Neurologic Neurologic: CNII-XII intact - Musculoskeletal Musculoskeletal: gait normal - Psychiatric Psychiatric: A&O x's 3, appropriate affect, intact judgment & insight - Labs CBC & Chem 7: 07/14/19 07:08 07/14/19 07:08 Labs: Abnormal Lab Results - Last 24 Hours (Table) 07/13/19 07/13/19 07/13/19 Range/Units 13:02 17:18 20:53 Lymphocytes # (1.0-4.8) k/uL Carbon Dioxide 32 H (22-30) mmol/L Glucose (74-99) mg/dL POC Glucose (mg/dL) 149 H 250 H (75-99) mg/dL AST (17-59) U/L Total Protein 6.0 L (6.3-8.2) g/dL Albumin 3.3 L (3.5-5.0) g/dL 07/14/19 07/14/19 07/14/19 Range/Units 07:00 07:08 07:08 Lymphocytes # 0.6 L (1.0-4.8) k/uL Carbon Dioxide (22-30) mmol/L Glucose 153 H (74-99) mg/dL POC Glucose (mg/dL) 145 H (75-99) mg/dL AST 16 L (17-59) U/L Total Protein 6.0 L (6.3-8.2) g/dL Albumin 3.3 L (3.5-5.0) g/dL Microbiology - Last 24 Hours (Table) 07/13/19 22:30 Gram Stain - Preliminary Sputum Assessment and Plan Plan: 1. COPD exacerbation, patient to be started started on IV Solu-Medrol, nebulized albuterol Atrovent, budesonide. Pulmonary consult appreciated. Chest x-ray as above. Sputum culture, pro-calcitonin and process. gram-negative pneumonia suspected can't rule out facility acquired pneumonia, Zosyn to be started--will review with pulmonary medicine. CAT scan ordered. 2. Recent pulmonary embolism patient to continue on eliquis for 6 month toro tment till November 2019 3. Acute on chronic hypoxic respiratory failure with hypoxia provide O2 continuous, home O2 requirements are at nighttime 2-3 L 4. Hypertension. Lasix 40 mg daily, Cozaar 50 mg daily aspirin 81 mg daily 5. Hyperlipidemia. Lipitor 40 mg daily 6 Benign prostatic hypertrophy. Proscar 5 mg at bedtime Flomax 0.4 mg twice a day no changes made 7. Chronic pain on gabapentin [place] 7.5-25 8. Generalized anxiety disorder, with history of PTSD, with insomnia stable on trazodone 150 mg at bedtime Xanax 0.5 mg at bedtime GI prophylaxis. Pepcid. DVT prophylaxis. Eliquis. Discharge plan: Home Impression and plan of care have been directed as dictated by the signing physician. Cierra Lazo nurse practitioner acting as scribe for signing physician.
--- NOTE | 2019-07-14 15:44 | CT ---
EXAMINATION TYPE: CT chest angio for PE DATE OF EXAM: 07/14/2019 COMPARISON: 06/12/2019 HISTORY: 69-year-old male SOB TECHNIQUE: Contiguous axial scanning of the chest performed with IV Contrast, patient injected with 1 00 mL of Isovue 370. Coronal/sagittal MIP reconstructions performed. CT DLP: 363.60 mGycm Automated exposure control for dose reduction was used. FINDINGS: Heart normal size without pericardial effusion. No flattening of the interventricular septum or reflu x of contrast into the hepatic veins. Scattered mild coronary vessel calcifications. Aorta normal caliber with mild discogenic changes of the arch with conventional large vessel branchin g anatomy. Large caliber to the main right and left pulmonary arteries at 2.9 and 2.6 cm, respectively, suggesti ng underlying pulmonary arterial hypertension. Previously seen medial right lower lobe segmental and subsegmental branch emboli have cleared. No new pulmonary embolus seen. Stable scattered fluid in the pericardial recesses. No axillary or mediastinal lymphadenopathy by CT size criteria. However, there are right hilar and br onchial lymph nodes measuring up to 1.1 and 1.3 cm, respectively. Scattered endobronchial opacification within the right lower lobe with improvement in aeration within the medial right base as compared to prior exam. Continued volume loss and consolidation within the right middle lobe. Advanced bullous emphysema in the right greater than left upper lungs. Visualized upper abdomen shows a small to moderate-sized hiatal hernia. Bones: No osseous destructive process. IMPRESSION: 1. NO EVIDENCE FOR PULMONARY EMBOLUS. THE PREVIOUSLY SEEN SEGMENTAL AND SUBSEGMENTAL MEDIAL RIGHT LOW ER LOBE BRANCH EMBOLI HAVE RESOLVED. 2. THERE HAS ALSO BEEN IMPROVEMENT IN AERATION AT THE MEDIAL RIGHT BASE BUT WITH PERSISTENT PROMINENT ENDOBRONCHIAL OPACIFICATION, SUSPECTED MUCOUS PLUGGING OR INFLAMMATORY DEBRIS. 3. RIGHT HILAR AND BRONCHIAL LYMPH NODES MEASURING UP TO 1.3 CM ARE PROBABLY REACTIVE. ONE TO [address] MON[address] FOLLOW-UP CT RECOMMENDED TO ENSURE STABILITY/RESOLUTION AND EXCLUDE UNDERLYING NEOPLASM. 4. STABLE VOLUME LOSS AND CONSOLIDATION RIGHT MIDDLE LOBE. THIS MAY REPRESENT AN AREA OF PNEUMONIA. T HIS SHOULD ALSO BE REASSESSED ON THE FOLLOW-UP AFTER TREATMENT. 5. MODERATE TO ADVANCED BULLOUS EMPHYSEMA WITH PULMONARY CHILL HYPERTENSION. 6. SMALL TO MODERATE SIZE HIATAL HERNIA.
[2019-07-14 17:13] LABS: Glucose,Whole Blood 262 mg/dL (75-99)
[2019-07-14 20:22] LABS: Glucose,Whole Blood 199 mg/dL (75-99)
--- NOTE | 2019-07-14 20:33 | CONS ---
CONSULTATION DATE OF CONSULTATION: Consultation dated July 14, 2019 REASON FOR CONSULTATION: COPD exacerbation, pulmonary embolism, and possible lung mass. This is a 69-year-old gentleman who was recently in the hospital. He was in here about a month ago and saw my partner, Dr. Rascon. His primary doctor is Dr. Giordano. Anyway, the patient apparently was not feeling well. He was very short of breath. He had lower extremity edema. He was coughing and wheezing. He had chest tightness and chest congestion. He saw Dr. Giordano and Dr. Giordano sent him over to the hospital to be admitted. The patient appears not to have stopped in the emergency room. He is feeling better today. He states his breathing is improved. He is still congested. Still wheezing. When my partner Dr. Rascon saw him a month ago, the question was that he had a pulmonary embolism. A CT angiogram was positive for PE in the right lower lobe pulmonary artery. In addition, the radiologist could not exclude a mass. Dr. Rascon recommended blood thinners for at least 3 months and a followup CT scan in 3 months. The patient is nervous about this "possible mass" and would like a CT angiogram reordered. We went ahead and did that. His chest x-ray does not look too dissimilar from his previous x-rays. There is some basilar atelectasis. On today's x- ray, the basilar atelectasis seems to be more right-sided than left. He is feeling better. As I mentioned, the edema has really improved dramatically. HOME MEDICATIONS: Include trazodone, Flomax, Cozaar, lansoprazole, Priddy, Neurontin, Lasix, Proscar, Lexapro, Fioricet, Lipitor, aspirin, Eliquis, albuterol updrafts, albuterol inhaler, and Xanax. ALLERGIES: No known drug allergies. MEDICAL HISTORY: Pulmonary embolism, COPD, hyperlipidemia, BPH, hypertension, gastroesophageal reflux disease, among other things. SURGICAL HISTORY: Primarily remote. FAMILY HISTORY: Noncontributory. Family members especially mother and father do not have any major medical problems. The rest of the family history is unremarkable. OCCUPATION HISTORY: Unremarkable. The patient is currently retired. REVIEW OF SYSTEMS: CONSTITUTIONAL: Negative. NEUROLOGICAL: Negative. HEENT negative. CARDIOVASCULAR negative. PULMONARY: Shortness of breath, cough wheezing, chest congestion, chest tightness and occasional phlegm production. GI negative. negative. RHEUMATOLOGIC negative. IMMUNOLOGIC negative. ENDOCRINOLOGIC negative. DERMATOLOGIC negative. PHYSICAL EXAMINATION: VITAL SIGNS: Vital signs are reviewed. Temperature 97.5. Heart rate 78. Respiratory rate 18, blood pressure 128/82. Mean 97. Room-air saturation 90%. 2 L saturation 95%. GENERAL: Patient appears in no acute distress. HEENT examination is grossly unremarkable. Mucous membranes are moist. No oral lesions. Nasal O2 noted. NECK: Supple. Full range of motion. No adenopathy or thyromegaly. Neck veins are flat. CARDIOVASCULAR examination reveals regular rhythm and rate. S1, S2 normal. No S3, S4, or murmur. LUNGS: A few scattered inspiratory and expiratory rhonchi and wheezes. There is slight prolongation on forced maneuver. Adventitious lung sounds are more prominent on forced maneuver. No crackles. Breath sounds equal bilaterally. ABDOMEN: Soft. Bowel sounds are heard. EXTREMITIES are intact. No edema whatsoever. No cyanosis or clubbing. SKIN: Without rash. NEUROLOGIC examination is brief but nonfocal. LABS: Reviewed. White count 6.4, hemoglobin 14, hematocrit 42.9, platelet count 186,000. Sodium 140, potassium 4, chloride 105. CO2 28. Anion gap is 7, BUN and creatinine were 14 and 0.69. Albumin 3.3, total protein 6. Microbiologic studies are pending or negative thus far. X-RAY: Chest x-ray shows some bibasilar atelectasis and/or infiltrate. I do not see a distinct mass. Going back, his previous x-rays have shown some basilar atelectasis both the right and left at various times. Repeat CT angiogram is ordered. The prior CT angiogram did show a right lower lobe pulmonary embolism. ASSESSMENT: 1. Chronic obstructive pulmonary disease exacerbation complicated by purulent tracheobronchitis and/or bronchopneumonia, though I doubt tiarra pneumonia. 2. Possible mass right lower lobe. 3. Recent diagnosis of pulmonary embolism, currently on a factor XA inhibitor. 4. History of hyperlipidemia. 5. History of chronic obstructive pulmonary disease. 6. Multiple other medical problems and comorbidities as listed above. PLAN: The patient is on antibiotics and updrafts. No additional recommendations are made. We will continue to follow. Will await the results of repeat CT scan. I did explain to the patient that the CT scan being done so early still may show the clot in the right lower lobe pulmonary artery. He understands. We will make sure he is being treated properly for COPD exacerbation, and make sure he has follow up with Dr. Rascon in the future. No additional recommendations are made. MMBRENDA / KANCHANN: [id number] / MTDD
[2019-07-14] MEDS: FORMOTEROL FUMARATE 20 MCG/2 ML NEBU INHALATION SCH (21:31)
[2019-07-14] MEDS: ALPRAZolam 0.5 MG TAB PO SCH (22:01)
[2019-07-14] MEDS: GABAPENTIN 400 MG CAP PO SCH (22:01)
[2019-07-14] MEDS: traZODone HCL 50 MG TAB PO SCH (22:02)
[2019-07-14] MEDS: FINASTERIDE 5 MG TAB PO SCH (22:02)
[2019-07-15] MEDS: ACETAMINOPHEN TAB 325 MG TAB PO PRN ×2 (05:23→21:39)
[2019-07-15] MEDS: methylPREDNISolone SOD SUCCI 125 MG/2 ML VIAL IV SCH ×2 (05:24→13:26)
[2019-07-15 07:26] LABS: Glucose,Whole Blood 222 mg/dL (75-99)
[2019-07-15] MEDS: FORMOTEROL FUMARATE 20 MCG/2 ML NEBU INHALATION SCH ×2 (07:38→19:39)
[2019-07-15] MEDS: IPRATROPIUM-ALBUTEROL 3 ML NEB INHALATION SCH ×4 (07:38→19:38)
[2019-07-15] MEDS: BUDESONIDE 1 MG/2 ML NEBU INHALATION SCH ×2 (07:38→19:39)
[2019-07-15] MEDS: HYDROcodone/APAP 7.5-325MG 1 EACH TAB PO PRN ×2 (08:57→19:17)
[2019-07-15] MEDS: APIXABAN 5 MG TAB PO SCH ×2 (08:57→21:30)
[2019-07-15] MEDS: GABAPENTIN 300 MG CAP PO SCH (08:58)
[2019-07-15] MEDS: ASPIRIN 81 MG PO SCH (08:58)
[2019-07-15] MEDS: FAMOTIDINE 20 MG TAB PO SCH ×2 (08:58→21:30)
[2019-07-15] MEDS: FUROSEMIDE 40 MG TAB PO SCH (08:58)
[2019-07-15] MEDS: TAMSULOSIN 0.4 MG CAP.ER.24H PO SCH ×2 (08:58→21:30)
[2019-07-15] MEDS: LOSARTAN 50 MG TAB PO SCH (08:58)
[2019-07-15] MEDS: PANTOPRAZOLE 40 MG TABLET PO SCH (08:58)
[2019-07-15] MEDS: ATORVASTATIN 40 MG TAB PO SCH (08:58)
[2019-07-15] MEDS: ESCITALOPRAM 5 MG TAB PO SCH (09:00)
[2019-07-15] MEDS: PIPERACILLIN-TAZOBACTAM 3.375 GM in SODIUM CHLORIDE 0.9% 100 ML IVPB SCH ×3 (09:02→23:51)
[2019-07-15] MEDS: INSULIN ASPART (NovoLOG) 100 UNIT/ML VIAL SQ SCH ×4 (09:02→21:31)
[2019-07-15 11:37] LABS: Glucose,Whole Blood 150 mg/dL (75-99)
[2019-07-15] MEDS: TRIAMCINOLONE 0.1% CREAM 80 GM TUBE TOPICAL SCH ×2 (13:56→21:42)
--- NOTE | 2019-07-15 13:58 | P.PN ---
Subjective Progress Note Date: 07/15/19 Principal diagnosis: COPD exacerbation. The patient is seen today 07/15/2018 in follow-up on the regular medical floor. He is awake and alert in no acute distress. Up ambulating in his room. He did have a CT angiogram repeated yesterday which revealed no evidence of pulmonary embolus with previous segmental and subsegmental right lower lobe branch emboli resolved. There is also been improvement in aeration of the medial right base but persistent prominent endobronchial opacification, suspect mucous plugging or inflammatory debris. There is right hilar bronchial lymph nodes measuring up to 1.3 cm suspected of being reactive. Stable volume loss and consolidation in the right middle lobe. Moderate to advanced bullous emphysema with pulmonary hypertension. Small to moderate hiatal hernia. Sputum reveals no growth thus far. He remains on Zosyn, IV Solu-Medrol, DuoNeb inhalations, Perforomist and Pulmicort inhalations. Anti coagulated with Eliquis. Objective - Vital Signs Vital signs: Vital Signs Temp 97.9 F 07/15/19 13:50 Pulse 95 07/15/19 13:50 Resp 20 07/15/19 13:50 BP 130/87 07/15/19 13:50 Pulse Ox 90 L 07/15/19 13:50 Intake & Output 07/14/19 07/15/19 07/15/19 18:59 06:59 18:59 Intake Total 930 Balance 930 Intake: Intake, IV Titration 100 Amount Piperacillin-Tazobactam 3 100 .375 gm In Sodium Chloride 0.9% 100 ml @ 25 mls/hr IVPB Q8HR [facility] [place] Rx# :[id number] Oral 830 Other: Voiding Method Toilet Toilet # Voids 2 2 - Exam GENERAL EXAM: Alert, pleasant 69-year-old gentleman, active, comfortable in no apparent distress. On room air. HEAD: Normocephalic. EYES: Normal reaction of pupils, equal size. NOSE: Clear with pink turbinates. THROAT: No erythema or exudates. NECK: No masses, no JVD. CHEST: No chest wall deformity. LUNGS: Equal air entry with bilateral end expiratory wheeze, scattered rhonchi in the right lung. CVS: S1 and S2 normal with no audible murmur, regular rhythm. ABDOMEN: No hepatosplenomegaly, normal bowel sounds, no guarding or rigidity. SPINE: No scoliosis or deformity SKIN: No rashes CENTRAL NERVOUS SYSTEM: No focal deficits, tone is normal in all 4 extremities. EXTREMITIES: There is no peripheral edema. No clubbing, no cyanosis. Peripheral pulses are intact. - Labs CBC & Chem 7: 07/14/19 07:08 07/14/19 07:08 Labs: Abnormal Lab Results - Last 24 Hours (Table) 07/14/19 07/14/19 07/14/19 Range/Units 07:08 17:01 20:20 POC Glucose (mg/dL) 262 H 199 H (75-99) mg/dL Procalcitonin 0.11 H (0.02-0.09) ng/mL 07/15/19 07/15/19 Range/Units 07:25 11:36 POC Glucose (mg/dL) 222 H 150 H (75-99) mg/dL Procalcitonin (0.02-0.09) ng/mL Assessment and Plan Assessment: Impression: #1 Acute exacerbation of chronic obstructive pulmonary disease, complicated by purulent tracheobronchitis versus bronchopneumonia. #2 Possible mass in the right lower lobe. #3 Recent diagnosis of pulmonary embolism in the right lower lobe, follow-up CT angiogram yesterday revealed no evidence of PE. Anticoagulated with Eliquis. #4 Hyperlipidemia. #5 Benign prostatic hyperplasia. #6 Gastroesophageal reflux disease. Plan: The patient was seen and evaluated by Dr. Villagomez. CAT scan results were discussed with the patient. We'll continue the current treatment plan. Probable discharge in the a.m. I, the cosigning physician, performed a history & physical examination of the patient. Lungs sounds bilateral end expiratory wheeze, scattered rhonchi in the right . Maintaining good O2 saturations in the 90s on room air. I discussed the assessment and plan of care with my nurse practitioner, Autumn Kim. I attest to the above note as dictated by her.
--- NOTE | 2019-07-15 14:18 | P.PN ---
Subjective Progress Note Date: 07/15/19 This is a 69-year-old male patient of Dr. Giordano, recently admitted with pulmonary emboli, has long-standing bullous emphysema, follows with Dr. Gastelum. He also has past mental history of TIA, GERD hyperlipidemia, hypertension, osteoarthritis. He presents to the clinic for follow-up today, and was seen in the emergency room approximately one week ago for shortness of breath July 08 2019, for which chest x-ray shows atelectasis against pneumonia, and was prescribed Lasix for discharge. He presents with increasing shortness of breath, increasing purulent cough, and low-grade fever. Patient came back from a recent trip on a cruise him a no sick contacts. He currently is on anticoagulation for pulmonary emboli, diagnosed 06/12/2019, he now has O2 at nighttime 2-3 L nasal cannula, none during the day, and nebulized treatments has gotten him no relief. He was directly admitted, for suspected purulent bronchitis, pneumonitis, COPD exacerbation 07/14: Patient has been afebrile, heart rate 70 to 80s, blood pressure 127/66, pulse ox 93-95% on 2 L nasal cannula. CBC is unremarkable, electrolytes and renal function within normal limits, liver function tests within normal limits. Blood sugars running between 145 and 250. Albumin 3.3. Sputum culture is in progress. Pro-calcitonin is pending. Chest x-ray reveals COPD with bullous emphysema. Patchy bibasilar areas of atelectasis versus infiltrates particularly on the right. Dr. Villagomez has ordered CAT scan of the chest. Reviewed echocardiogram with the patient from last admission. Patient states his breathing is better today. He slept well last night. He continues to have cough. He denies having a bowel movement. 07/15: CTA of the chest showed no evidence of pulmonary embolism. The previously seen segmental and subsegmental medial right lower lobe branch emboli have resolved. Improvement in aeration at the medial right base but with persistent prominent endobronchial opacities occasional, suspected mucus plugging or inflammatory debris. Right hilar and bronchial lymph nodes measuring up to 1.3 cm probably reactive. Stable volume loss and consolidation right middle lobe. This may represent area of pneumonia. Moderate to advanced was emphysema with pulmonary hypertension. Small to moderate sized hiatal hernia. Patient states that his breathing is much improved from yesterday. He continues to have a cou gh that is more productive today. He does continue to have a cough. Telemetry will be discontinued as patient has been in a normal sinus rhythm. He is complaining of a rash to the dorsal left foot and hydrocortisone cream ordered. Discuss results of CAT scan with the patient and plan to complete his 6 month course of anticoagulation. And follow-up CAT scan to reassess bronchial lymph nodes. Patient states he did have a bowel movement. Anticipate discharge home tomorrow. Solu-Medrol will be decreased to 40 mg every 8 hours. Objective - Vital Signs Vital signs: Vital Signs Temp 97.9 F 07/15/19 13:50 Pulse 95 07/15/19 13:50 Resp 20 07/15/19 13:50 BP 130/87 07/15/19 13:50 Pulse Ox 90 L 07/15/19 13:50 Intake & Output 07/14/19 07/15/19 07/15/19 18:59 06:59 18:59 Intake Total 930 Balance 930 Intake: Intake, IV Titration 100 Amount Piperacillin-Tazobactam 3 100 .375 gm In Sodium Chloride 0.9% 100 ml @ 25 mls/hr IVPB Q8HR [facility] Rx# :[id number] Oral 830 Other: Voiding Method Toilet Toilet # Voids 2 2 - Exam Review Of Systems: Constitutional: No fever, no chills, no night sweats. No weight change. No weakness, fatigue or lethargy. No daytime sleepiness. EENT: No headache. No blurred vision or double vision, no loss of vision. no dizziness. No nasal drainage or congestion. No epistaxis. No sore throat. Lungs: Reports shortness of breath, reports cough, reports sputum production. Reports wheezing. Cardiovascular: No chest pain, no lower extremity edema. No palpitations. No paroxysmal nocturnal dyspnea. No orthopnea. No lightheadedness or dizziness. No syncopal episodes. Abdominal: No abdominal pain. No nausea, vomiting. No diarrhea. No constip ation. No bloody or tarry stools. Genitourinary: No dysuria, increased frequency, urgency. No urinary retention. Musculoskeletal: No myalgias. No muscle weakness, no gait dysfunction, no frequent falls. No back pain. No neck pain. Integumentary: No wounds, no lesions. No rash or pruritus. No unusual bruising. No change in hair or nails. Neurologic: No aphasia. No facial droop. No change in mentation. No head injury. No headache. No paralysis. No paresthesia. Psychiatric: No depression. No anxiety. No mood swings. Endocrine: No abnormal blood sugars. No weight change. No excessive sweating or thirst. No cold intolerance. - Constitutional General appearance: cooperative, no distress - EENT Eyes: anicteric sclerae, EOMI, dentition normal, normal appearance ENT: NA/AT, normal oropharynx - Neck Neck: normal ROM - Respiratory Respiratory: bilateral: mild expiratory wheeze, few scattered rhonchi, diminished, negative: dullness, rales - Cardiovascular Rhythm: regular Heart sounds: normal: S1, S2 Abnormal Heart Sounds: no systolic murmur, no diastolic murmur, no rub, no S3 Gallop, no S4 Gallop, no click, no other - Gastrointestinal General gastrointestinal: normal bowel sounds, soft - Integumentary Integumentary: normal, normal turgor - Neurologic Neurologic: CNII-XII intact - Musculoskeletal Musculoskeletal: gait normal - Psychiatric Psychiatric: A&O x's 3, appropriate affect, intact judgment & insight - Labs CBC & Chem 7: 07/14/19 07:08 07/14/19 07:08 Labs: Abnormal Lab Results - Last 24 Hours (Table) 07/14/19 07/14/19 07/14/19 Range/Units 07:08 17:01 20:20 POC Glucose (mg/dL) 262 H 199 H (75-99) mg/dL Procalcitonin 0.11 H (0.02-0.09) ng/mL 07/15/19 07/15/19 Range/Units 07:25 11:36 POC Glucose (mg/dL) 222 H 150 H (75-99) mg/dL Procalcitonin (0.02-0.09) ng/mL Assessment and Plan Plan: 1. COPD exacerbation and gram-negative pneumonia right middle lobe. We'll reconsult appreciated. IV Solu-Medrol decreased to 40 mg every 8 hours. Continue DuoNeb treatments, budesonide, perform a list. CAT scan results as above. Continue Zosyn., 2. Recent pulmonary embolism patient to continue on eliquis for 6 month treatment till November 2019 3. Acute on chronic hypoxic respiratory failure with hypoxia provide O2 continuous, home O2 requirements are at nighttime 2-3 L 4. Hypertension. Lasix 40 mg daily, Cozaar 50 mg daily aspirin 81 mg daily 5. Hyperlipidemia. Lipitor 40 mg daily 6 Benign prostatic hypertrophy. Proscar 5 mg at bedtime Flomax 0.4 mg twice a day no changes made 7. Chronic pain on gabapentin Sawyer 7.5-25 8. Generalized anxiety disorder, with history of PTSD, with insomnia stable on trazodone 150 mg at bedtime Xanax 0.5 mg at bedtime GI prophylaxis. Pepcid. DVT prophylaxis. Eliquis. Discharge plan: Home on Impression and plan of care have been directed as dictated by the signing physician. Cierra Lazo nurse practitioner acting as scribe for signing physician.
[2019-07-15] MEDS: methylPREDNISolone SOD SUCCI 40 MG/ML 1 ML VIAL IV SCH ×2 (16:23→23:58)
[2019-07-15 17:39] LABS: Glucose,Whole Blood 146 mg/dL (75-99)
[2019-07-15 20:29] LABS: Glucose,Whole Blood 193 mg/dL (75-99)
[2019-07-15] MEDS: traZODone HCL 50 MG TAB PO SCH (21:29)
[2019-07-15] MEDS: FINASTERIDE 5 MG TAB PO SCH (21:30)
[2019-07-15] MEDS: GABAPENTIN 400 MG CAP PO SCH (21:30)
[2019-07-15] MEDS: ALPRAZolam 0.5 MG TAB PO SCH (21:30)
[2019-07-16 05:44] VITALS: BP 158/84; RESP 16; TEMP 97.8
[2019-07-16 07:47] LABS: Glucose,Whole Blood 162 mg/dL (75-99)
[2019-07-16] MEDS: INSULIN ASPART (NovoLOG) 100 UNIT/ML VIAL SQ SCH (08:10)
[2019-07-16] MEDS: PANTOPRAZOLE 40 MG TABLET PO SCH (08:10)
[2019-07-16] MEDS: PIPERACILLIN-TAZOBACTAM 3.375 GM in SODIUM CHLORIDE 0.9% 100 ML IVPB SCH (08:10)
[2019-07-16] MEDS: ASPIRIN 81 MG PO SCH (08:10)
[2019-07-16] MEDS: methylPREDNISolone SOD SUCCI 40 MG/ML 1 ML VIAL IV SCH (08:10)
[2019-07-16] MEDS: APIXABAN 5 MG TAB PO SCH (08:10)
[2019-07-16] MEDS: ATORVASTATIN 40 MG TAB PO SCH (08:11)
[2019-07-16] MEDS: FAMOTIDINE 20 MG TAB PO SCH (08:11)
[2019-07-16] MEDS: HYDROcodone/APAP 7.5-325MG 1 EACH TAB PO PRN (08:11)
[2019-07-16] MEDS: ESCITALOPRAM 5 MG TAB PO SCH (08:11)
[2019-07-16] MEDS: TAMSULOSIN 0.4 MG CAP.ER.24H PO SCH (08:12)
[2019-07-16] MEDS: LOSARTAN 50 MG TAB PO SCH (08:12)
[2019-07-16] MEDS: FUROSEMIDE 40 MG TAB PO SCH (08:12)
[2019-07-16] MEDS: GABAPENTIN 300 MG CAP PO SCH (08:12)
[2019-07-16] MEDS: TRIAMCINOLONE 0.1% CREAM 80 GM TUBE TOPICAL SCH (08:13)
[2019-07-16] MEDS: BUDESONIDE 1 MG/2 ML NEBU INHALATION SCH (08:26)
[2019-07-16] MEDS: FORMOTEROL FUMARATE 20 MCG/2 ML NEBU INHALATION SCH (08:26)
[2019-07-16] MEDS: IPRATROPIUM-ALBUTEROL 3 ML NEB INHALATION SCH ×2 (08:26→11:55)
--- NOTE | 2019-07-16 11:47 | P.DS ---
Providers Date of admission: 07/13/19 11:48 Expected date of discharge: 07/16/19 Attending physician: Dyana Giordano Consults: 07/13/19 12:53 Consult Physician Routine Consulting Provider: Willy Villagomez Reason/Comments: COPD exac Do you want consulting provider notified?: Yes Placement Type Exists?: Yes Primary care physician: Dyana Giordano Hospital Course: This is a 69-year-old male patient of Dr. Giordano, recently admitted with pulmonary emboli, has long-standing bullous emphysema, follows with Dr. Gastelum. He also has past mental history of TIA, GERD hyperlipidemia, hypertension, osteoarthritis. He presents to the clinic for follow-up today, and was seen in the emergency room approximately one week ago for shortness of breath July 08 2019, for which chest x-ray shows atelectasis against pneumonia, and was prescribed Lasix for discharge. He presents with increasing shortness of breath, increasing purulent cough, and low-grade fever. Patient came back from a recent trip on a cruise him a no sick contacts. He currently is on anticoagulation for pulmonary emboli, diagnosed 06/12/2019, he now has O2 at nighttime 2-3 L nasal cannula, none during the day, and nebulized treatments has gotten him no relief. He was directly admitted, for suspected purulent bronchitis, pneumonitis, COPD exacerbation 07/14: Patient has been afebrile, heart rate 70 to 80s, blood pressure 127/66, pulse ox 93-95% on 2 L nasal cannula. CBC is unremarkable, electrolytes and renal function within normal limits, liver function tests within normal limits. Blood sugars running between 145 and 250. Albumin 3.3. Sputum culture is in progress. Pro-calcitonin is pending. Chest x-ray reveals COPD with bullous emphysema. Patchy bibasilar areas of atelectasis versus infiltrates particularly on the right. Dr. Villagomez has ordered CAT scan of the chest. Reviewed echocardiogram with the patient from last admission. Patient states his breathing is better today. He slept well last night. He continues to have cough. He denies having a bowel movement. 07/15: CTA of the chest showed no evidence of pulmonary embolism. The previously seen segmental and subsegmental medial right lower lobe branch emboli have resolved. Improvement in aeration at the medial right base but with persistent prominent endobronchial opacities occasional, suspected mucus plugging or inf lammatory debris. Right hilar and bronchial lymph nodes measuring up to 1.3 cm probably reactive. Stable volume loss and consolidation right middle lobe. This may represent area of pneumonia. Moderate to advanced was emphysema with pulmonary hypertension. Small to moderate sized hiatal hernia. Patient states that his breathing is much improved from yesterday. He continues to have a cough that is more productive today. He does continue to have a cough. Telemetry will be discontinued as patient has been in a normal sinus rhythm. He is complaining of a rash to the dorsal left foot and hydrocortisone cream ordered. Discuss results of CAT scan with the patient and plan to complete his 6 month course of anticoagulation. And follow-up CAT scan to reassess bronchial lymph nodes. Patient states he did have a bowel movement. Anticipate discharge home tomorrow. Solu-Medrol will be decreased to 40 mg every 8 hours. 07/16: Patient has been afebrile, heart rate in the 70s, blood pressure 158/84, pulse ox 90-92% on 2 L nasal cannula. Sputum culture is positive for Haemophilus influenza. The patient will be prescribed azithromycin for home and has been instructed to hold Lexapro while taking antibiotic. Patient will be discharged home on a prednisone taper. Patient states that his breathing continues to improve daily. He is come instructed to continue a steroid cream. All questions have been answered. Patient will be discharged home in stable condition. Discharge diagnoses: 1. COPD exacerbation and gram-negative pneumonia right middle lobe. 2. Recent pulmonary embolism patient to continue on eliquis for 6 month treatment till November 2019 3. Acute on chronic hypoxic respiratory failure 4. Hypertension. 5. Hyperlipidemia. 6 Benign prostatic hypertrophy. 7. Chronic pain 8. Generalized anxiety disorder, with history of PTSD, with insomnia Discharge plan: Home on Impression and plan of care have been directed as dictated by the signing physician. Cierra Lazo nurse practitioner acting as scribe for signing physician. Patient Condition at Discharge: Good Plan - Discharge Summary Discharge Rx Participant: No New Discharge Prescriptions: New Triamcinolone 0.1% Cream [Kenalog 0.1% Cream] 1 applic TOPICAL BID #0 applic Azithromycin [Zithromax Tri-Damaso] 500 mg PO DAILY 7 Days #7 tab Continue HYDROcodone/APAP 7.5-325MG [[place] 7.5-325] 1 tab PO TID Lansoprazole 30 mg PO DAILY Gabapentin [Neurontin] 600 mg PO QAM Finasteride [Proscar] 5 mg PO HS Tamsulosin HCl [Flomax] 0.4 mg PO BID Albuterol Inhaler [Ventolin Hfa Inhaler] 2 puff INHALATION RT-Q6H PRN PRN Reason: Shortness Of Breath traZODone HCL 150 mg PO HS Gabapentin 1,200 mg PO HS Butalb/APAP/Caff 50-325-40Mg [Fioricet 50-325-40] 1 tab PO Q4H PRN #30 tablet PRN Reason: pain Albuterol Nebulized [Ventolin Nebulized] 2.5 mg INHALATION RT-QID PRN PRN Reason: Shortness Of Breath Aspirin 81 mg PO DAILY chew Losartan [Cozaar] 50 mg PO DAILY #30 tab Apixaban [Eliquis] 5 mg PO BID #60 tab Escitalopram [Lexapro] 5 mg PO DAILY #30 tablet Atorvastatin [Lipitor] 40 mg PO DAILY #30 tab Furosemide [Lasix] 40 mg PO DAILY #10 tab ALPRAZolam [Xanax] 0.5 mg PO HS Discharge Medication List Finasteride [Proscar] 5 mg PO HS 10/21/14 [History] Gabapentin [Neurontin] 600 mg PO QAM 10/21/14 [History] HYDROcodone/APAP 7.5-325MG [[place] 7.5-325] 1 tab PO TID 10/21/14 [History] Lansoprazole 30 mg PO DAILY 10/21/14 [History] Tamsulosin HCl [Flomax] 0.4 mg PO BID 10/21/14 [History] Albuterol Inhaler [Ventolin Hfa Inhaler] 2 puff INHALATION RT-Q6H PRN 04/08/16 [History] Gabapentin 1,200 mg PO HS 04/09/16 [History] traZODone HCL 150 mg PO HS 04/09/16 [History] Butalb/APAP/Caff 50-325-40Mg [Fioricet 50-325-40] 1 tab PO Q4H PRN #30 tablet 04/14/16 [Rx] Albuterol Nebulized [Ventolin Nebulized] 2.5 mg INHALATION RT-QID PRN 06/12/19 [History] Apixaban [Eliquis] 5 mg PO BID #60 tab 06/15/19 [Rx] Aspirin 81 mg PO DAILY chew 06/15/19 [Rx] Atorvastatin [Lipitor] 40 mg PO DAILY #30 tab 06/15/19 [Rx] Escitalopram [Lexapro] 5 mg PO DAILY #30 tablet 06/15/19 [Rx] Losartan [Cozaar] 50 mg PO DAILY #30 tab 06/15/19 [Rx] Furosemide [Lasix] 40 mg PO DAILY #10 tab 07/08/19 [Rx] ALPRAZolam [Xanax] 0.5 mg PO HS 07/13/19 [History] Azithromycin [Zithromax Tri-Damaso] 500 mg PO DAILY 7 Days #7 tab 07/16/19 [Rx] Triamcinolone 0.1% Cream [Kenalog 0.1% Cream] 1 applic TOPICAL BID #0 applic 07/16/19 [Rx] Follow up Appointment(s)/Referral(s): Dyana Giordano MD [Primary Care Provider] - 1 Week Maximo Rascon MD [STAFF PHYSICIAN] - 1 Week Activity/Diet/Wound Care/Special Instructions: Hold Lexapro while taking Azithromycin. Discharge Disposition: HOME SELF-CARE
[2019-07-16 12:00] VITALS: PULSE 76
--- NOTE | 2019-07-16 14:01 | P.PN ---
Subjective Progress Note Date: 07/16/19 Principal diagnosis: COPD exacerbation. The patient is seen today 07/15/2018 in follow-up on the regular medical floor. He is awake and alert in no acute distress. Up ambulating in his room. He did have a CT angiogram repeated yesterday which revealed no evidence of pulmonary embolus with previous segmental and subsegmental right lower lobe branch emboli resolved. There is also been improvement in aeration of the medial right base but persistent prominent endobronchial opacification, suspect mucous plugging or inflammatory debris. There is right hilar bronchial lymph nodes measuring up to 1.3 cm suspected of being reactive. Stable volume loss and consolidation in the right middle lobe. Moderate to advanced bullous emphysema with pulmonary hypertension. Small to moderate hiatal hernia. Sputum reveals no growth thus far. He remains on Zosyn, IV Solu-Medrol, DuoNeb inhalations, Perforomist and Pulmicort inhalations. Anti coagulated with Eliquis. Patient is seen today 07/16/2019 in follow-up on the regular medical floor. He remains awake and alert in no acute distress. Up ambulating in the hallway with "any worsening shortness of breath, cough or congestion. Continue O2 saturations in the 90s on 2 L/m per nasal cannula. He is afebrile. Hemodynamic stable. Sputum culture positive for Haemophilus influenzae. He is currently on Zosyn. Objective - Vital Signs Vital signs: Vital Signs Temp 97.8 F 07/16/19 05:00 Pulse 76 07/16/19 12:05 Resp 16 07/16/19 05:00 BP 158/84 07/16/19 05:00 Pulse Ox 90 L 07/16/19 05:00 Intake & Output 07/15/19 07/16/19 07/16/19 18:59 06:59 18:59 Intake Total 360 1030 Balance 360 1030 Intake: Intake, IV Titration 200 Amount Piperacillin-Tazobactam 3 200 .375 gm In Sodium Chloride 0.9% 100 ml @ 25 mls/hr IVPB Q8HR [facility] Rx# :[id number] Oral 360 830 Other: Voiding Method Toilet Toilet # Voids 2 1 - Exam GENERAL EXAM: Alert, pleasant 69-year-old gentleman, active, comfortable in no apparent distress. On 2 L/m per nasal cannula. HEAD: Normocephalic. EYES: Normal reaction of pupils, equal size. NOSE: Clear with pink turbinates. THROAT: No erythema or exudates. NECK: No masses, no JVD. CHEST: No chest wall deformity. LUNGS: Equal air entry with bilateral end expiratory wheeze, scattered rhonchi in the right lung. CVS: S1 and S2 normal with no audible murmur, regular rhythm. ABDOMEN: No hepatosplenomegaly, normal bowel sounds, no guarding or rigidity. SPINE: No scoliosis or deformity SKIN: No rashes CENTRAL NERVOUS SYSTEM: No focal deficits, tone is normal in all 4 extremities. EXTREMITIES: There is no peripheral edema. No clubbing, no cyanosis. Peripheral pulses are intact. - Labs CBC & Chem 7: 07/14/19 07:08 07/14/19 07:08 Labs: Abnormal Lab Results - Last 24 Hours (Table) 07/15/19 07/15/19 07/16/19 Range/Units 17:27 20:27 07:39 POC Glucose (mg/dL) 146 H 193 H 162 H (75-99) mg/dL Microbiology - Last 24 Hours (Table) 07/13/19 22:30 Gram Stain - Final Sputum Sputum Culture - Final Haemophilus influenzae Assessment and Plan Assessment: Impression: #1 Acute exacerbation of chronic obstructive pulmonary disease, complicated by Haemophilus influenzae #2 Possible mass in the right lower lobe. #3 Recent diagnosis of pulmonary embolism in the right lower lobe, follow-up CT angiogram yesterday revealed no evidence of PE. Anticoagulated with Eliquis. #4 Hyperlipidemia. #5 Benign prostatic hyperplasia. #6 Gastroesophageal reflux disease. Plan: The patient was seen and evaluated by Dr. Villagomez. He is cleared for discharge from the pulmonary standpoint. He'll complete course of antibiotics in the form of azithromycin. Continue his home pulmonary medications. Follow-up in our office in 1-2 weeks' time. He is encouraged to call sooner with any recurrence of symptoms or other questions or concerns. I, the cosigning physician, performed a history & physical examination of the patient. Lungs sounds bilateral end expiratory wheeze, scattered rhonchi in the right . Maintaining good O2 saturations in the 90s on 2 L/m per nasal cannula. I discussed the assessment and plan of care with my nurse practitioner, Autumn Kim. I attest to the above note as dictated by her.
--- NOTE | 2019-07-20 03:21 | CDI ---
Documentation Clarification Form Date: 07/20/19 From: Darrin Ochoa Phone: call [phone] Admit Date: 07/13/2019 11:48:00 AM Patient Name: Deandre Duong Visit Number: [id number] Discharge Date: 07/16/2019 12:45:00 PM ATTENTION: The Clinical Documentation Specialists (CDI) and [facility] Coding Staff appreciate your assistance in clarifying documentation. Please respond to the clarification below the line at the bottom and electronically sign. The CDI & [facility] Coding staff will review the response and follow-up if needed. Please note: Queries are made part of the Legal Health Record. If you have any questions, please contact the author of this message via ITS. Dr. Derik Chau, Pneumonia was documented as Gram-Negative pneumonia in discharge diagnosis but sputum culture positive for Haemophilus influenza. History/Risk Factors: Pulmonary embolism, pulmonary mass. Clinical Indicators: WBC/Left shift: 5.3k X-ray:COPD with bullous emphysema.Patchy bibasilar areas of atelectasis versus infiltrates, particularly on the right. Treatment: Antibiotics Vital signs: Antibiotics Azithromycin, Sputum culture : positive for hemophilus influenza. In your professional opinion, can you please clarify Pneumonia due to ? Gram- Negative Haemophilus influenza Both(gram-negative and haemophilus influenza) Other, please specify Unable to determine __Haemophilus Influenza pneumonia. ___ MTDD
== END 2019-07-16 12:45 | disposition home or self-care (01) | DRG 193 ==
LOC: 3NMEDONC 11:48
PROVIDERS: ADMIT Family Medicine; ATTEND Family Medicine
DX: J14 Pneumonia due to Hemophilus influenzae (principal); J96.21 Acute and chronic respiratory failure with hypoxia; I26.99 Other pulmonary embolism without acute cor pulmonale; J44.0 Chronic obstructive pulmonary disease with (acute) lower respiratory infection; J44.1 Chronic obstructive pulmonary disease with (acute) exacerbation; I10 Essential (primary) hypertension; E78.5 Hyperlipidemia, unspecified; F41.1 Generalized anxiety disorder; F43.10 Post-traumatic stress disorder, unspecified; G25.81 Restless legs syndrome; G89.29 Other chronic pain; H91.93 Unspecified hearing loss, bilateral; I27.20 Pulmonary hypertension, unspecified; K21.9 Gastro-esophageal reflux disease without esophagitis; K44.9 Diaphragmatic hernia without obstruction or gangrene; N40.0 Benign prostatic hyperplasia without lower urinary tract symptoms; G47.00 Insomnia, unspecified; Z79.01 Long term (current) use of anticoagulants; Z79.82 Long term (current) use of aspirin; Z79.899 Other long term (current) drug therapy; Z86.010 Personal history of colon polyps; Z86.711 Personal history of pulmonary embolism; Z86.73 Personal history of transient ischemic attack (TIA), and cerebral infarction without residual deficits; Z87.891 Personal history of nicotine dependence; Z87.01 Personal history of pneumonia (recurrent); Z90.89 Acquired absence of other organs
CPT/HCPCS: 71046; 71275; 80053; 84145; 85025; 85027; 87070; 87205; 94640; 94760

== ENCOUNTER → 2019-08-06 | Outpatient (CLI) | payer MEDICARE ==
[2019-08-06 12:05] LABS: HCT 42.1 % (39.0-53.0); HGB 13.4 gm/dL (13.0-17.5); MCH 29.7 pg (25.0-35.0); MCHC 31.9 g/dL (31.0-37.0); Mean Platelet Volume 5.6; Platelet Count 208 k/uL (150-450); RBC 4.53 m/uL (4.30-5.90); WBC 8.1 k/uL (3.8-10.6)
[2019-08-06 17:47] LABS: African American GFR (CKD) 87.4 (60.0-200.0); Anion Gap 7.2 mmol/L (4.00-12.00); Calcium 8.4 mg/dL (8.7-10.3); Carbon Dioxide 32.8 mmol/L (21.6-31.8)
== END | disposition home or self-care (01) ==
LOC: LABWHC1 10:50
PROVIDERS: ATTEND Internal Medicine Interventional Cardiology
DX: R60.0 Localized edema (principal)
CPT/HCPCS: 36415; 80048; 85027

== ENCOUNTER → 2019-08-12 | Outpatient (CLI) | payer MEDICARE ==
--- NOTE | 2019-08-13 07:51 | XR ---
EXAMINATION TYPE: XR chest 2V DATE OF EXAM: 08/12/2019 COMPARISON: 07/13/2019 HISTORY: Cough, congestion, shortness of breath. Recent pneumonia. TECHNIQUE: Frontal and lateral views of the chest are obtained. FINDINGS: There is somewhat improved aeration of the lateral right lung base however new patchy opac ity in the right midlung and lingula are seen. Lung apices are well aerated. Cardia mediastinal silho uette is within normal limits. Pulmonary hyperinflation and flattening of the diaphragms of underlyin g COPD. No acute osseous pathology. IMPRESSION: Shifting airspace disease with improved right basilar airspace disease but new right mid lung and lingular opacities. Given the findings on the prior CT atelectasis secondary to endobronchia l mucous plugging is a possibility. New areas of multifocal pneumonia are possible in the appropriate clinical setting.
== END | disposition home or self-care (01) ==
LOC: RADXRMAIN 16:57
PROVIDERS: ATTEND Family Medicine
DX: J98.4 Other disorders of lung (principal)
CPT/HCPCS: 71046

== ENCOUNTER 2019-09-03 16:05 | Emergency (ER) | payer MEDICARE ==
[2019-09-03 16:30] VITALS: PULSE 89
[2019-09-03] MEDS ORDERED: SODIUM CHLORIDE 0.9% 1,000 ML IV STA (17:02)
--- NOTE | 2019-09-03 17:02 | ED ---
URI HPI - General Chief Complaint: Upper Respiratory Infection Stated Complaint: Coughing up blood Time Seen by Provider: 09/03/19 16:38 Source: patient, RN notes reviewed, old records reviewed Mode of arrival: ambulatory Limitations: no limitations - History of Present Illness Initial Comments: This is a 69-year-old male the ER for evaluation. Patient resents today for evaluation regards to hemoptysis coughing up blood. Patient is on blood thinners secondary to recent history of PE. Multiple vault of pneumonia the last few months. Patient was seen by his primary care and sent to ER for evaluation. Per patient they were suggesting computed tomography scan to look for progression of PE or any worsening of symptoms or recurrence of pneumonia. Patient denying any shortness of breath or fevers. No chest pain currently. - Related Data Home Medications Medication Instructions Recorded Confirmed Finasteride [Proscar] 5 mg PO HS 10/21/14 08/26/19 Gabapentin [Neurontin] 600 mg PO QAM 10/21/14 08/26/19 Albuterol Inhaler [Ventolin Hfa 2 puff INHALATION RT-Q6H PRN 04/08/16 08/26/19 Inhaler] Gabapentin 1,200 mg PO HS 04/09/16 08/26/19 traZODone HCL 150 mg PO HS 04/09/16 08/26/19 Albuterol Nebulized [Ventolin 2.5 mg INHALATION RT-QID PRN 06/12/19 08/26/19 Nebulized] ALPRAZolam [Xanax] 0.5 mg PO HS 07/13/19 08/26/19 metFORMIN HCL [Glucophage] 500 mg PO BID 08/26/19 08/26/19 Previous Rx's Medication Instructions Recorded Butalb/APAP/Caff 50-325-40Mg 1 tab PO Q4H PRN #30 tablet 04/14/16 [Fioricet 50-325-40] Apixaban [Eliquis] 5 mg PO BID #60 tab 06/15/19 Aspirin 81 mg PO DAILY chew 06/15/19 Atorvastatin [Lipitor] 40 mg PO DAILY #30 tab 06/15/19 Escitalopram [Lexapro] 5 mg PO DAILY #30 tablet 06/15/19 Furosemide [Lasix] 40 mg PO DAILY #10 tab 07/08/19 Allergies Allergy/AdvReac Type Severity Reaction Status Date / Time No Known Allergies Allergy Verified 09/03/19 16:30 Review of Systems ROS Statement: Those systems with pertinent positive or pertinent negative responses have been documented in the HPI. ROS Other: All systems not noted in ROS Statement are negative. Past Medical History Past Medical History: COPD, CVA/TIA, Diabetes Mellitus, GERD/Reflux, Hyperlipidemia, Hypertension, Osteoarthritis (OA), Pneumonia, Prostate Disorder, Respiratory Disorder Additional Past Medical History / Comment(s): Pt recently admitted to [facility] on 06/12/19 with possible pulmonary embolism/R lower lobe pneumonia/acute hypoxic failure.portal bollous emphysema. Other hx: Recent fluid retention for which pt takes lasix, previous history of a pneumothorax requiring a Thoravent insertion back in 2016, home oxygen at 2L/NC prn, "borderline" diabetes, low back pain with bilateral sciatica; restless leg syndrome; migraines, TIA about two years ago, BPH, hard of hearing bilaterally, benign colonic polyps, diverticulosis. New onset diabetes 08/11/19 History of Any Multi-Drug Resistant Organisms: None Reported Past Surgical History: Hernia Repair, Orthopedic Surgery, Tonsillectomy Additional Past Surgical History / Comment(s): Septoplasty/ESSS, EGD, colonoscopy with benign polyp, R inguinal hernia, umbilical hernia, pain clinic procedures for back pain, atilio fundloplication Past Anesthesia/Blood Transfusion Reactions: No Reported Reaction Past Psychological History: No Psychological Hx Reported Smoking Status: Former smoker Past Alcohol Use History: None Reported Past Drug Use History: None Reported - Past Family History Father History Unknown: Yes Family Medical History: No Reported History, Unable to Obtain Additional Family Medical History / Comment(s): Pt was adopted. Mother History Unknown: Yes Additional Family Medical History / Comment(s): Pt was adopted. General Exam Limitations: no limitations Course Vital Signs 09/03/19 09/03/19 16:27 18:46 Temperature 98.3 F 97.1 F L Pulse Rate 89 89 Respiratory 20 18 Rate Blood Pressure 126/72 126/96 O2 Sat by Pulse 94 L 95 Oximetry - Reevaluation(s) Reevaluation #1: 09/03/19 18:53 Medical records reviewed as well as prior computed tomography scan Reevaluation #2: 09/03/19 18:53 Patient's results are discussed with patient he has no complaints Medical Decision Making - Medical Decision Making 69 male with no hemoptysis here in the ER. Patient is no distress and can be discharged home - Lab Data Result diagrams: 09/03/19 16:45 09/03/19 16:45 Lab Results 09/03/19 09/03/19 09/03/19 Range/Units 16:45 16:45 16:45 WBC 8.4 (3.8-10.6) k/uL RBC 4.99 (4.30-5.90) m/uL Hgb 14.9 (13.0-17.5) gm/dL Hct 45.9 (39.0-53.0) % MCV 92.1 (80.0-100.0) fL MCH 29.8 (25.0-35.0) pg MCHC 32.4 (31.0-37.0) g/dL RDW 14.4 (11.5-15.5) % Plt Count 212 (150-450) k/uL Neutrophils % 71 % Lymphocytes % 15 % Monocytes % 8 % Eosinophils % 2 % Basophils % 1 % Neutrophils # 6.0 (1.3-7.7) k/uL Lymphocytes # 1.3 (1.0-4.8) k/uL Monocytes # 0.6 (0-1.0) k/uL Eosinophils # 0.2 (0-0.7) k/uL Basophils # 0.1 (0-0.2) k/uL PT (9.0-12.0) sec INR (<1.2) APTT (22.0-30.0) sec Sodium 138 (137-145) mmol/L Potassium 4.3 (3.5-5.1) mmol/L Chloride 104 (98-107) mmol/L Carbon Dioxide 27 (22-30) mmol/L Anion Gap 7 mmol/L BUN 17 (9-20) mg/dL Creatinine 0.85 (0.66-1.25) mg/dL Est GFR (CKD-EPI)AfAm >90 (>60 ml/min/1.73 sqM) Est GFR (CKD-EPI)NonAf 88 (>60 ml/min/1.73 sqM) Glucose 99 (74-99) mg/dL Calcium 9.0 (8.4-10.2) mg/dL Magnesium 1.9 (1.6-2.3) mg/dL Total Bilirubin 0.3 (0.2-1.3) mg/dL AST 19 (17-59) U/L ALT 22 (21-72) U/L Alkaline Phosphatase 79 (38-126) U/L Creatine Kinase 59 (55-170) U/L Troponin I (0.000-0.034) ng/mL NT-Pro-B Natriuret Pep 39 pg/mL Total Protein 6.2 L (6.3-8.2) g/dL Albumin 3.6 (3.5-5.0) g/dL 09/03/19 09/03/19 Range/Units 16:45 16:45 WBC (3.8-10.6) k/uL RBC (4.30-5.90) m/uL Hgb (13.0-17.5) gm/dL Hct (39.0-53.0) % MCV (80.0-100.0) fL MCH (25.0-35.0) pg MCHC (31.0-37.0) g/dL RDW (11.5-15.5) % Plt Count (150-450) k/uL Neutrophils % % Lymphocytes % % Monocytes % % Eosinophils % % Basophils % % Neutrophils # (1.3-7.7) k/uL Lymphocytes # (1.0-4.8) k/uL Monocytes # (0-1.0) k/uL Eosinophils # (0-0.7) k/uL Basophils # (0-0.2) k/uL PT 9.4 (9.0-12.0) sec INR 0.9 (<1.2) APTT 24.8 (22.0-30.0) sec Sodium (137-145) mmol/L Potassium (3.5-5.1) mmol/L Chloride (98-107) mmol/L Carbon Dioxide (22-30) mmol/L Anion Gap mmol/L BUN (9-20) mg/dL Creatinine (0.66-1.25) mg/dL Est GFR (CKD-EPI)AfAm (>60 ml/min/1.73 sqM) Est GFR (CKD-EPI)NonAf (>60 ml/min/1.73 sqM) Glucose (74-99) mg/dL Calcium (8.4-10.2) mg/dL Magnesium (1.6-2.3) mg/dL Total Bilirubin (0.2-1.3) mg/dL AST (17-59) U/L ALT (21-72) U/L Alkaline Phosphatase (38-126) U/L Creatine Kinase (55-170) U/L Troponin I <0.012 (0.000-0.034) ng/mL NT-Pro-B Natriuret Pep pg/mL Total Protein (6.3-8.2) g/dL Albumin (3.5-5.0) g/dL - EKG Data -: EKG Interpreted by Me (EKG shows sinus rhythm rate of 89, FL 190, QRS 86, QTc 447) Disposition Clinical Impression: Hemoptysis Disposition: HOME SELF-CARE Condition: Good Instructions (If sedation given, give patient instructions): Hemoptysis (ED) Is patient prescribed a controlled substance at d/c from ED?: No Referrals: Dyana Giordano MD [Primary Care Provider] - 1-2 days
[2019-09-03 17:15] LABS: Basophils # (A) 0.1 k/uL (0-0.2); Basophils % (A) 1 %; Eosinophils # (A) 0.2 k/uL (0-0.7); Eosinophils % (A) 2 %; HCT 45.9 % (39.0-53.0); HGB 14.9 gm/dL (13.0-17.5); Lymphocytes # (A) 1.3 k/uL (1.0-4.8); Lymphocytes % (A) 15 %; MCH 29.8 pg (25.0-35.0); MCHC 32.4 g/dL (31.0-37.0); MCV 92.1 fL (80.0-100.0); Mean Platelet Volume 5.8; Monocytes # (A) 0.6 k/uL (0-1.0); Monocytes % (A) 8 %; Neutrophils % (A) 71 %; Platelet Count 212 k/uL (150-450); RBC 4.99 m/uL (4.30-5.90); RDW 14.4 % (11.5-15.5); WBC 8.4 k/uL (3.8-10.6)
[2019-09-03 17:23] LABS: ALT 22 U/L (21-72); AST 19 U/L (17-59); African American GFR (CKD) >90 (>60 ml/min/1.73 sqM); Albumin 3.6 g/dL (3.5-5.0); Alkaline Phosphatase 79 U/L (38-126); Anion Gap 7 mmol/L; Blood Urea Nitrogen 17 mg/dL (9-20); Carbon Dioxide 27 mmol/L (22-30); Chloride 104 mmol/L (98-107); Creatine Kinase 59 U/L (55-170); Glucose 99 mg/dL (74-99); INR 0.9 (<1.2); Magnesium 1.9 mg/dL (1.6-2.3); Partial Thromboplastin Time 24.8 sec (22.0-30.0); Potassium 4.3 mmol/L (3.5-5.1); Prothrombin Time 9.4 sec (9.0-12.0); Sodium 138 mmol/L (137-145); Total Bilirubin 0.3 mg/dL (0.2-1.3); Total Protein 6.2 g/dL (6.3-8.2)
--- NOTE | 2019-09-03 18:30 | CT ---
EXAMINATION TYPE: CT angio chest DATE OF EXAM: 09/03/2019 6:15 PM COMPARISON: 07/14/2019 HISTORY: Hemoptysis today. CT DLP: 510.7 mGycm Automated exposure control for dose reduction was used. CONTRAST: CTA scan of the thorax is performed with IV Contrast, patient injected with 100 mL of Isovue 370, pul monary embolism protocol. . There are 3-D post processed images. FINDINGS: There is severe bullous emphysema with very large air-filled spaces in the upper lung astudillo. I see n o pneumothorax. There is no mediastinal adenopathy. Thoracic aorta is intact without evidence of aneu rysm or dissection. I see no filling defects in the pulmonary arteries. There are no hilar masses. Th ere are a few bronchial lymph nodes that measure up to 1 cm. There is some airspace linear infiltrate and atelectasis right lower lobe with rounded consolidation at the right posterior lung base that me asures 2 cm. There are no hilar masses. The bony thorax is intact. IMPRESSION: NO EVIDENCE OF PULMONARY EMBOLISM. SEVERE BULLOUS EMPHYSEMA UNCHANGED. COARSE INFILTRATE AND ATELECTA SIS IN THE RIGHT LOWER LOBE OVERALL NOT SIGNIFICANTLY DIFFERENT THAN LAST EXAM.
--- NOTE | 2019-09-03 18:39 | XR ---
EXAMINATION TYPE: XR chest 2V DATE OF EXAM: 09/03/2019 COMPARISON: 08/25/2019 HISTORY: Coughing blood TECHNIQUE: Frontal and lateral views of the chest are obtained. FINDINGS: there is some patchy atelectasis in the mid and lower lung astudillo. There is emphysematous change in t he right upper lobe. Heart size is normal. There is no pleural effusion. There is some mild scarring in the left lower lobe at the lung base. Bony thorax is intact. IMPRESSION: Pulmonary emphysema. There is bilateral scarring and atelectasis not significantly different than las t exam.
[2019-09-03 18:46] VITALS: BP 126/96; RESP 18; TEMP 97.1
== END 2019-09-03 18:57 | disposition home or self-care (01) ==
LOC: EC 16:05
DX: R04.2 Hemoptysis (principal); N40.0 Benign prostatic hyperplasia without lower urinary tract symptoms; J44.9 Chronic obstructive pulmonary disease, unspecified; E11.9 Type 2 diabetes mellitus without complications; M19.90 Unspecified osteoarthritis, unspecified site; Z79.01 Long term (current) use of anticoagulants; Z79.82 Long term (current) use of aspirin; Z79.51 Long term (current) use of inhaled steroids; Z79.84 Long term (current) use of oral hypoglycemic drugs; Z86.73 Personal history of transient ischemic attack (TIA), and cerebral infarction without residual deficits; Z86.711 Personal history of pulmonary embolism; Z87.891 Personal history of nicotine dependence
CPT/HCPCS: 36415; 93005; 83880; 80053; 82550; 83735; 84484; 85025; 85610; 85730; 71046; 71275; 99284; 96360; Q9967

== ENCOUNTER → 2019-11-09 | Outpatient (CLI) | payer MEDICARE ==
[2019-11-10 11:55] LABS: Immunoglobulin M 89.2 mg/dL (40.0-280.0)
== END | disposition home or self-care (01) ==
LOC: LABWHC1 17:27
PROVIDERS: ATTEND Family Medicine
DX: J18.9 Pneumonia, unspecified organism (principal); J40 Bronchitis, not specified as acute or chronic
CPT/HCPCS: 36415; 82784

== ENCOUNTER → 2019-11-18 | Outpatient (CLI) | payer MEDICARE ==
--- NOTE | 2019-11-18 12:08 | FL ---
EXAMINATION TYPE: FL barium swallow w video DATE OF EXAM: 11/18/2019 MODIFIED SWALLOW / DEGLUTITION STUDY CLINICAL HISTORY: Dysphagia. TECHNIQUE: Deglutition study is performed utilizing thin liquid barium, honey and nectar thick liqui d barium, barium thick applesauce, and barium coated cracker. Total of 57 seconds fluoroscopic time u tilized. 0 spot images to the PACS. COMPARISON: Upper GI study February 29, 2012. FINDINGS: The oral and pharyngeal phases show satisfactory initiation and propagation with all modali ties tested. Satisfactory mastication is seen with solid modalities tested. There is no evidence of penetration or aspiration with any modality tested. No significant pharyngeal residue was appreciate d. Incidental slight grade 1 spondylolisthesis C4 on C5. IMPRESSION: No penetration or aspiration observed. Please refer to speech therapist notes for furthe r details if necessary.
== END | disposition home or self-care (01) ==
LOC: RADFLMAIN 11:36
PROVIDERS: ATTEND Internal Medicine Pulmonary Disease
DX: J18.9 Pneumonia, unspecified organism (principal)
CPT/HCPCS: 74230

== ENCOUNTER → 2019-12-03 | Outpatient (CLI) | payer MEDICARE ==
[2019-12-03 08:18] LABS: African American GFR (CKD) >90 (>60 ml/min/1.73 sqM); Blood Urea Nitrogen 18 mg/dL (9-20); Non-African American GFR(CKD) 83 (>60 ml/min/1.73 sqM)
--- NOTE | 2019-12-03 11:27 | CT ---
EXAMINATION TYPE: CT chest w con DATE OF EXAM: 12/03/2019 COMPARISON: Prior CT chest 09/03/2019 HISTORY: recurrent pneumonia CT DLP: 468.1 mGycm Automated exposure control for dose reduction was used. CONTRAST: CT scan of the chest is performed with IV Contrast, patient injected with 100 mL of Isovue 300. FINDINGS: There is a small hiatal hernia. LUNGS: There is extensive emphysematous change within the lungs, apical bullous change is noted. Subs egmental basilar atelectatic change is again seen, there is some associated bronchial wall thickening along the right hemidiaphragm, right lower lobe MEDIASTINUM: There are no greater than 1 cm hilar or mediastinal lymph nodes. No pericardial effusi on is seen. Coronary artery calcifications are present. AORTA: No additional significant abnormality is seen. OTHER: Low dense nodular density associated with the right adrenal gland subcentimeter in size in st able. Lobular contour to the left kidney is again seen, there may be scarring with areas of cortical thinning. Diverticular changes associated with the colon. Focus of low density is present at the ante rior margin of the inferior aspect of the left lobe of the liver with some associated calcifications similar to prior exam measuring 3.5 cm x 3 and is indeterminate. Focus on axial image #55 within the left lobe shows low attenuation within the left lobe liver and measures 3.8 cm IMPRESSION: Emphysema, correlate for bronchitis. Probable basilar scarring or atelectasis. Indetermi dylan liver masses, liver MRI may be of benefit. Small hiatal hernia. Coronary artery disease. Additio nal findings above.
== END | disposition home or self-care (01) ==
LOC: RADCTMAIN 07:35
PROVIDERS: ATTEND Family Medicine
DX: J43.9 Emphysema, unspecified (principal); I25.10 Atherosclerotic heart disease of native coronary artery without angina pectoris; R93.89 Abnormal findings on diagnostic imaging of other specified body structures
CPT/HCPCS: 82565; 84520; 71260; Q9967

== ENCOUNTER → 2019-12-16 | Outpatient (CLI) | payer MEDICARE ==
--- NOTE | 2019-12-17 05:12 | MR ---
EXAMINATION TYPE: MR abdomen wo/w con DATE OF EXAM: 12/16/2019 COMPARISON: None HISTORY: Liver disease CONTRAST: Standard multiplanar, multisequence MRI departmental protocol utilizing 9 mL intravenous Gadavist hanane olinium contrast. Heart size is fairly normal. There is no sign of pericardial effusion. There is probably some atelect asis at the lung bases. Gallbladder appears normal. There is 2.5 cm irregular cyst in the left lobe of the liver. There is 2 cm cyst posterior right lobe of the liver. The bile ducts are not dilated. Spleen is intact. Stomach is intact. There is 1 cm cyst lateral right lower liver. Pancreas has normal contour. Pancreatic duct is not dilated. There is no evidence of pancreatic mass. There is no adrenal mass. Kidneys show no hydronephrosis. There is irregular cortical thinning latera l left kidney. There is no evidence of retroperitoneal adenopathy. There is normal enhancement of the portal venous system. Abdominal aorta is intact. There is no pathologic enhancement. Lumbar spine is intact. There is no sign of ascites. There is no sign of a bowel obstruction. IMPRESSION: Multiple simple hepatic cysts. No dilated ducts. No evidence of pancreatic mass. Cortical thinning in the left kidney consistent with scarring and chronic pyelonephritis. This appear s unchanged compared to CT scan of 02/16/2016.
== END | disposition home or self-care (01) ==
LOC: RADMRIMAIN 17:44
PROVIDERS: ATTEND Internal Medicine Critical Care Medicine
DX: K76.89 Other specified diseases of liver (principal)
CPT/HCPCS: 74183; A9585

== ENCOUNTER → 2019-12-17 | Day surgery (SDC) | payer MEDICARE ==
[2019-12-15 15:55] VITALS: BMI 25.7
[~2019-12-17] MED LIST: ALPRAZolam 0.25 MG TAB PO PRN; ALPRAZolam 0.5 MG TAB PO PRN; ASPIRIN 325 MG TAB PO ONE; LIDOCAINE 1% INJ 10MG/ML (20 ML MDV) ONE; NITROGLYCERIN SL TABS 0.4 MG TAB SUBLINGUAL PRN; SODIUM CHLORIDE 0.9% 1,000 ML in EMPTY BAG 1 BAG IV ONE
[2019-12-17 07:04] LABS: Glucose,Whole Blood 106 mg/dL (75-99)
[2019-12-17 07:07] VITALS: BP 133/85; PULSE 100; RESP 6; TEMP 98.2
[2019-12-17 07:10] LABS: Basophils % (A) 0 %; Eosinophils # (A) 0.1 k/uL (0-0.7); Eosinophils % (A) 1 %; HCT 46.2 % (39.0-53.0); HGB 14.8 gm/dL (13.0-17.5); Lymphocytes # (A) 0.5 k/uL (1.0-4.8); Lymphocytes % (A) 6 %; MCH 28.5 pg (25.0-35.0); MCHC 32.2 g/dL (31.0-37.0); MCV 88.6 fL (80.0-100.0); Mean Platelet Volume 6.5; Monocytes # (A) 0.5 k/uL (0-1.0); Monocytes % (A) 5 %; Neutrophils # (A) 8.4 k/uL (1.3-7.7); Neutrophils % (A) 87 %; Platelet Count 245 k/uL (150-450); RBC 5.21 m/uL (4.30-5.90); RDW 13.7 % (11.5-15.5); WBC 9.6 k/uL (3.8-10.6)
[2019-12-17 07:21] LABS: African American GFR (CKD) >90 (>60 ml/min/1.73 sqM); Anion Gap 5 mmol/L; Blood Urea Nitrogen 19 mg/dL (9-20); Calcium 8.6 mg/dL (8.4-10.2); Carbon Dioxide 27 mmol/L (22-30); Chloride 104 mmol/L (98-107); Glucose 110 mg/dL (74-99); Non-African American GFR(CKD) 87 (>60 ml/min/1.73 sqM); Potassium 4.1 mmol/L (3.5-5.1); Sodium 136 mmol/L (137-145)
== END ==
LOC: CATHCVL 06:03
PROVIDERS: ATTEND Internal Medicine Interventional Cardiology
DX: R06.02 Shortness of breath (principal); Z53.29 Procedure and treatment not carried out because of patient's decision for other reasons
CPT/HCPCS: 80048; 85025

== ENCOUNTER 2019-12-30 09:13 | Day surgery (SDC) | payer MEDICARE ==
[2019-12-29 12:57] VITALS: BMI 25.7
[~2019-12-30 09:13] MED LIST changes: -ASPIRIN 325 MG TAB PO ONE; +ASPIRIN 325 MG TAB PO STA; +ATORVASTATIN 80 MG TAB PO STA; -LIDOCAINE 1% INJ 10MG/ML (20 ML MDV) ONE
[2019-12-30 09:37] LABS: Glucose,Whole Blood 111 mg/dL (75-99)
[2019-12-30] MEDS ORDERED: LIDOCAINE 1% INJ 10MG/ML (20 ML MDV) ONE (10:29)
[2019-12-30] MEDS ORDERED: MIDAZOLAM 2 MG/2 ML VIAL IV ONE (10:43)
[2019-12-30] MEDS: MIDAZOLAM 2 MG/2 ML VIAL IV ONE ×3 (10:43→11:29)
[2019-12-30] MEDS ORDERED: LIDOCAINE 1% INJ 10MG/ML (20 ML MDV) SQ ONE (10:46)
[2019-12-30] MEDS ORDERED: BIVALIRUDIN BOLUS 250 MG/50 ML IV ONE (11:05)
[2019-12-30] MEDS ORDERED: BIVALIRUDIN 250 MG in SODIUM CHLORIDE 0.9% 50 ML IV ONE (11:06)
[2019-12-30] MEDS ORDERED: IOPAMIDOL-370 100ML BTL INJ ONE ×3 (11:15→12:07)
[2019-12-30] MEDS ORDERED: HYDROmorphone 1 MG/ML 1 ML SYRINGE ONE ×2 (11:16→12:32)
[2019-12-30] MEDS: HYDROmorphone 1 MG/ML 1 ML SYRINGE IVP ONE ×3 (11:18→12:54)
[2019-12-30] MEDS: NITROGLYCERIN 1000MCG/10ML SYRINGE INTRACORON ONE ×3 (11:20→12:02)
[2019-12-30] MEDS ORDERED: TICAGRELOR 90 MG TAB ONE (11:48)
[2019-12-30] MEDS ORDERED: TICAGRELOR 90 MG TAB PO ONE (11:50)
[2019-12-30] MEDS ORDERED: ALBUTEROL NEBULIZED 2.5 MG/3 ML INHALATION PRN (12:19)
[2019-12-30] MEDS ORDERED: MAG HYDROX/AL HYDROX/SIMETH 30 ML CUP PO PRN (12:21)
[2019-12-30] MEDS ORDERED: RX INFO: IV CONTRAST WAS GIVEN 1 EACH MISC MISCELLANE PRN (12:21)
[2019-12-30] MEDS ORDERED: ATROPINE SULFATE 0.1 MG/ML 10ML SYRINGE IV PRN (12:21)
[2019-12-30] MEDS ORDERED: ONDANSETRON 4 MG/2 ML VIAL ONE (12:34)
[2019-12-30] MEDS ORDERED: HYDROmorphone 0.5 MG/0.5 ML SYRINGE IVP STA (12:53)
[2019-12-30] MEDS ORDERED: ONDANSETRON 4 MG/2 ML VIAL IVP STA (12:53)
--- NOTE | 2019-12-30 13:06 | CC ---
CARDIAC CATHETERIZATION REPORT CARDIAC CATH AND PCI REPORT: DATE OF SERVICE: 12/30/2019. PROCEDURE: 1. Left heart catheterization and coronary angiography. 2. PTCA and stenting of a nondominant mid circumflex coronary artery with a drug- eluting stent. 3. PTCA and stenting of a totally occluded proximal dominant RCA with 2 drug-eluting stents. PERFORMED BY: Dr. Erasmo Ochoa. Moderate conscious sedation time was 86 minutes. Patient was administered Versed, Dilaudid. Oxygen saturation, hemodynamics and EKG were monitored closely. CLINICAL INFORMATION: Mr. Duong is a 69-year-old gentleman with a past history of smoking, severe COPD, bolus emphysema who was scheduled for elective surgery for his excision of bullae at [facility]. However, because of exertional shortness of breath and chest tightness, I recommended coronary angiography prior to the elective procedure. Risks, benefits, options and rationale were explained in great detail to the patient and . PROCEDURE NOTE: Under local anesthesia and strict aseptic precautions, a 6-St Helenian introducer was placed in the right femoral artery. Using standard Shannan catheters I performed coronary angiography and the same right Shannan catheter was used to check LV pressures but LV gram was not performed. Following this, I proceeded to perform PCI of circumflex and RCA. The following the procedure, I used a Perclose device to secure hemostasis and patient was sent to the room in a stable condition. CARDIAC CATHETERIZATION FINDINGS: The left ventricular end-diastolic pressure was 12 mmHg without any gradient across aortic valve. CORONARY ANGIOGRAPHY FINDINGS: RIGHT CORONARY ARTERY: This vessel is totally occluded in the proximal portion after a conus branch and there are bridging collaterals and distally it again reconstitutes through bridging collaterals and gives off a PDA and PLV. PLV is larger. PDA is smaller. Both of them have diffuse disease. Just before bifurcation, there is a 40% to 45% narrowing of the RCA. However, the RCA is totally occluded at the proximal portion with bridging collaterals and a conus branch is free of significant disease. RCA is dominant. LEFT MAIN CORONARY ARTERY: Short patent disease-free vessel that immediately bifurcates into LAD and circumflex. LEFT ANTERIOR DESCENDING CORONARY ARTERY: Fair caliber vessel extends along the anterior wall. In the midportion, there is a 40% narrowing and this is a large LAD that curves over the apex to supply the inferoapical portion of left ventricle and also opacifies the distal branches of RCA. LEFT POSTERIOR CIRCUMFLEX CORONARY ARTERY: Technically a nondominant vessel, gives off a single large obtuse marginal that runs laterally. In the midportion, there is an eccentric 80% stenosis and distally bifurcates into 2 additional branches supplies a fair amount of myocardium. The continuation of the circumflex in the AV groove before the obtuse marginal branch has minor diffuse disease. LEFT VENTRICULOGRAM: Left ventriculogram was not performed. FINAL IMPRESSION: This patient has a right dominant system, totally occluded RCA with bridging collaterals and collaterals coming from the LAD as well. Left main is free of significant disease. LAD has a 30% to 35% mid lesion. Circumflex has an 80% obtuse marginal lesion. Left ventricular end-diastolic pressure is about 12 mmHg without any gradient across the aortic valve. RECOMMENDATIONS: I recommended PCI of circumflex and also RCA and proceeded to perform this in the same setting. PCI PROCEDURE DETAILS: A standard left Shannan guide catheter was used to cannulate the left coronary artery and a run-through wire was used to cross the lesion. A 2.5 caliber Trek balloon was used to pre-dilate the lesion. I then deployed a 15 mm long 3.0 caliber Xience stent in the mid circumflex. The patient had chest pain and inferior ST elevation. Excellent angiographic result was achieved without complication. Subsequently I turned my attention to the right coronary artery. I used a standard right Shannan guide catheter to cannulate the right coronary artery. Using a SuperCross straight catheter with a Whisper wire that was a straight long Whisper wire, I was able to cross the total occlusion and the wire was kept distally. A 2.0 caliber 15 mm NC Trek balloon was used to pre-dilate the lesion. I then used a 20 mm long 2.5 caliber NC Trek balloon and predilatation was performed. At the proximal end of the lesion, there was a small flap noted. I then deployed 2 stents of 2.5 caliber and these were the Xience stents. Distal was a 28 mm and proximal a 23 mm stent. Excellent angiographic result was achieved. Distal to the stented segment just before bifurcation, there is an eccentric 40% to 45% narrowing which I did not perform intervention on. The branches of the RCA had diffuse disease. However, excellent angiographic result without complication was achieved. Results were discussed with the patient and his . The patient received Brilinta 180 mg. He also received Angiomax bolus and infusion as per protocol. Excellent angiographic result was achieved and patient was sent to the room in stable condition. Results were discussed with the patient and his . I expect he will be discharged tomorrow on dual antiplatelet therapy. His elective lung surgery has to wait for a minimum of 6 months. This was explained to the patient and . MICHELLE / AVINASH: [id number] /
[2019-12-30 14:08] LABS: Glucose,Whole Blood 149 mg/dL (75-99)
[2019-12-30] MEDS: LOSARTAN 50 MG TAB PO SCH (14:30)
[2019-12-30] MEDS: SODIUM CHLORIDE 0.9% 1,000 ML IV SCH (14:35)
[2019-12-30 17:03] LABS: Glucose,Whole Blood 98 mg/dL (75-99)
[2019-12-30] MEDS: HYDROcodone/APAP 5-325MG 1 EACH TAB PO SCH ×2 (17:05→22:42)
[2019-12-30] MEDS: PANTOPRAZOLE 40 MG TABLET PO SCH (17:05)
[2019-12-30] MEDS: METOPROLOL TARTRATE 12.5 MG TAB PO SCH (20:28)
[2019-12-30] MEDS: TICAGRELOR 90 MG TAB PO SCH (20:28)
[2019-12-30 20:34] LABS: Glucose,Whole Blood 175 mg/dL (75-99)
[2019-12-30] MEDS ORDERED: FINASTERIDE 5 MG TAB PO SCH (21:00)
[2019-12-30] MEDS ORDERED: GABAPENTIN 400 MG CAP PO SCH (21:00)
[2019-12-30] MEDS ORDERED: ATORVASTATIN 80 MG TAB PO SCH (21:00)
[2019-12-30] MEDS ORDERED: traZODone HCL 50 MG TAB PO SCH (21:00)
[2019-12-30] MEDS: SYMBICORT 160-4.5 MCG INHALER INHALATION SCH (22:19)
[2019-12-30] MEDS: IPRATROPIUM 0.5 MG/2.5 ML NEBU INHALATION SCH ×3 (22:19→22:25)
[2019-12-31] MEDS: SODIUM CHLORIDE 0.9% 1,000 ML IV SCH
[2019-12-31 06:00] LABS: Glucose,Whole Blood 93 mg/dL (75-99)
[2019-12-31] MEDS: PANTOPRAZOLE 40 MG TABLET PO SCH (06:33)
[2019-12-31 06:49] LABS: Basophils % (A) 0 %; Eosinophils # (A) 0.1 k/uL (0-0.7); Eosinophils % (A) 1 %; HCT 40.1 % (39.0-53.0); HGB 12.6 gm/dL (13.0-17.5); Lymphocytes # (A) 1.7 k/uL (1.0-4.8); Lymphocytes % (A) 19 %; MCH 28.5 pg (25.0-35.0); MCHC 31.5 g/dL (31.0-37.0); MCV 90.6 fL (80.0-100.0); Mean Platelet Volume 6.6; Monocytes # (A) 0.6 k/uL (0-1.0); Monocytes % (A) 6 %; Neutrophils # (A) 6.4 k/uL (1.3-7.7); Neutrophils % (A) 72 %; Platelet Count 244 k/uL (150-450); RBC 4.43 m/uL (4.30-5.90); RDW 14.3 % (11.5-15.5); WBC 8.8 k/uL (3.8-10.6)
[2019-12-31 07:08] LABS: African American GFR (CKD) >90 (>60 ml/min/1.73 sqM); Anion Gap 4 mmol/L; Blood Urea Nitrogen 18 mg/dL (9-20); Calcium 8.3 mg/dL (8.4-10.2); Carbon Dioxide 25 mmol/L (22-30); Chloride 110 mmol/L (98-107); Glucose 91 mg/dL (74-99); Non-African American GFR(CKD) >90 (>60 ml/min/1.73 sqM); Potassium 4.3 mmol/L (3.5-5.1); Sodium 139 mmol/L (137-145)
[2019-12-31] MEDS: TICAGRELOR 90 MG TAB PO SCH (08:48)
[2019-12-31] MEDS: METOPROLOL TARTRATE 12.5 MG TAB PO SCH (08:48)
[2019-12-31] MEDS: HYDROcodone/APAP 5-325MG 1 EACH TAB PO SCH (08:48)
[2019-12-31] MEDS: LOSARTAN 50 MG TAB PO SCH (08:49)
[2019-12-31] MEDS: IPRATROPIUM 0.5 MG/2.5 ML NEBU INHALATION SCH ×2 (08:57→12:05)
[2019-12-31] MEDS: SYMBICORT 160-4.5 MCG INHALER INHALATION SCH (08:58)
[2019-12-31] MEDS ORDERED: ESCITALOPRAM 5 MG TAB PO SCH (09:00)
[2019-12-31] MEDS ORDERED: FUROSEMIDE 20 MG TAB PO SCH (09:00)
[2019-12-31] MEDS ORDERED: GABAPENTIN 300 MG CAP PO SCH (09:00)
[2019-12-31] MEDS ORDERED: LOSARTAN 50 MG TAB PO SCH (09:00)
[2019-12-31] MEDS ORDERED: ASPIRIN 81 MG PO SCH (09:00)
--- NOTE | 2019-12-31 09:53 | DS ---
DISCHARGE SUMMARY DATE OF ADMISSION: 12/30/2019 DATE OF DISCHARGE: 12/31/2019 DIAGNOSES: 1. Unstable angina. 2. Type 2 diabetes. 3. Hypertension. 4. 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 Mr. Duong was brought in for elective cardiac cath given his symptoms of exertional chest tightness and shortness of breath prior to elective lung surgery. Cath revealed a total occlusion of dominant RCA and 80% lesion in the mid circumflex. These were addressed with the drug-eluting stents. Both vessels were stented. Excellent angiographic result was achieved. Postprocedure course was uneventful. His right groin is clean and dry with a good pulse. His EKG and labs are unremarkable. Vitals are stable, 120/80, pulse rate is 70 per minute. S1, S2 heard normally. Lungs reveal diminished air entry. Abdomen and lower extremity exam unchanged. Right groin is clean and dry with a good pulse. Discharge instructions regarding activity, diet and medications were given. Patient will be on aspirin, Brilinta, losartan, metformin will be resumed after another 24 hours. He will be on 80 mg of atorvastatin. He will be on 12.5 mg b.i.d. of metoprolol. All discharge instructions regarding activity, diet and medications were given and I will see him in the office in one week. MMODL / IJN: [id number] /
[2019-12-31 11:23] VITALS: BP 130/62; PULSE 82; RESP 14; TEMP 98.6
--- NOTE | 2019-12-31 11:24 | ECHOF ---
Referral Reason:LVEF MEASUREMENTS -------- HEIGHT: 180.3 cm WEIGHT: 83.9 kg BP: 120/79 RVIDd: 2.6 cm (< 3.3) IVSd: 1.2 cm (0.6 - 1.1) LVIDd: 4.1 cm (3.9 - 5.3) LVPWd: 1.4 cm (0.6 - 1.1) IVSs: 1.3 cm LVIDs: 2.7 cm LVPWs: 1.5 cm LAESV Index (A-L): 21.59 ml/m Ao Diam: 3.0 cm (2.0 - 3.7) AV Cusp: 2.1 cm (1.5 - 2.6) LA Diam: 3.7 cm (2.7 - 3.8) MV EXCURSION: 14.577 mm (> 18.000) MV EF SLOPE: 86 mm/s (70 - 150) EPSS: 0.5 cm MV E Tay: 0.74 m/s MV DecT: 186 ms MV A Tay: 0.93 m/s MV E/A Ratio: 0.79 RAP: 5.00 mmHg RVSP: 20.60 mmHg TAPSE: 22.13 mm FINDINGS -------- Sinus rhythm. This was a technically good study. The left ventricular size is normal. There is mild concentric left ventricular hypertrophy. Overa ll left ventricular systolic function is low-normal with, an EF between 50 - 55 %. The diastolic fi lling pattern is normal for the age of the patient 10.05. The right ventricle is normal in size. The right ventricular systolic function is normal. The left atrial size is normal. Normal LA size by volume 22+/-6 ml/m2. The right atrial size is normal. The aortic valve is trileaflet and appears structurally normal. Trace amount of aortic regurgitatio n. The mitral valve is normal. There is trace mitral regurgitation. The tricuspid valve appears structurally normal. Trace tricuspid regurgitation present. Right benito tricular systolic pressure is normal at < 35 mmHg. There is no pulmonic regurgitation present. The aortic root size is normal. Normal inferior vena cava with normal inspiratory collapse consistent with estimated right atrial pre ssure of 5 mmHg. There is no pericardial effusion. CONCLUSIONS -------- 1. Sinus rhythm. 2. This was a technically good study. 3. The left ventricular size is normal. 4. There is mild concentric left ventricular hypertrophy. 5. Overall left ventricular systolic function is low-normal with, an EF between 50 - 55 %. 6. The diastolic filling pattern is normal for the age of the patient 10.05 7. The right ventricle is normal in size. 8. The right ventricular systolic function is normal. 9. The left atrial size is normal. 10. Normal LA size by volume 22+/-6 ml/m2. 11. The right atrial size is normal. 12. The aortic valve is trileaflet and appears structurally normal. 13. Trace amount of aortic regurgitation. 14. The mitral valve is normal. 15. There is trace mitral regurgitation. 16. The tricuspid valve appears structurally normal. 17. Trace tricuspid regurgitation present. 18. Right ventricular systolic pressure is normal at < 35 mmHg. 19. There is no pulmonic regurgitation present. 20. The aortic root size is normal. 21. Normal inferior vena cava with normal inspiratory collapse consistent with estimated right atrial pressure of 5 mmHg. 22. There is no pericardial effusion. PLC TECHNICIAN: Tere Paiz RDCS
== END 2019-12-31 12:17 | disposition home or self-care (01) ==
LOC: CATHCVL 09:13 → 3SCARD 13:55 → CATHCVL 12-31 12:17
PROVIDERS: ATTEND Internal Medicine Interventional Cardiology
DX: I25.110 Atherosclerotic heart disease of native coronary artery with unstable angina pectoris (principal); I10 Essential (primary) hypertension; Z87.891 Personal history of nicotine dependence; J43.8 Other emphysema; E78.5 Hyperlipidemia, unspecified; E78.00 Pure hypercholesterolemia, unspecified; Z86.73 Personal history of transient ischemic attack (TIA), and cerebral infarction without residual deficits; Z87.09 Personal history of other diseases of the respiratory system; Z77.098 Contact with and (suspected) exposure to other hazardous, chiefly nonmedicinal, chemicals; Z79.51 Long term (current) use of inhaled steroids; Z79.899 Other long term (current) drug therapy
CPT/HCPCS: 94640 ×4; 93306; 93458; 80048; 85025; C9600; C9607; C1769 ×5; C1887 ×2; C1725 ×3; C1894; C1760; C1874; S0138; J2250; J2405; J2001; J1170; J0583; Q9967

== ENCOUNTER 2020-01-11 13:20 | Inpatient (IN) | payer MEDICARE ==
[2020-01-11] MEDS ORDERED: NITROGLYCERIN OINT 1 INCH/GM PACKET TOPICAL STA (13:35)
[2020-01-11] MEDS ORDERED: SODIUM CHLORIDE 0.9% 500 ML 500 ML IV STA (13:35)
[2020-01-11 14:00] LABS: Basophils % (A) 0 %; Eosinophils # (A) 0.3 k/uL (0-0.7); Eosinophils % (A) 2 %; Lymphocytes # (A) 1.4 k/uL (1.0-4.8); Lymphocytes % (A) 11 %; MCH 28.4 pg (25.0-35.0); MCHC 31.9 g/dL (31.0-37.0); MCV 89.3 fL (80.0-100.0); Mean Platelet Volume 6.4; Monocytes # (A) 0.7 k/uL (0-1.0); Monocytes % (A) 6 %; Neutrophils # (A) 10.2 k/uL (1.3-7.7); Neutrophils % (A) 79 %; Platelet Count 312 k/uL (150-450); RBC 4.93 m/uL (4.30-5.90); RDW 13.9 % (11.5-15.5); WBC 12.9 k/uL (3.8-10.6)
--- NOTE | 2020-01-11 14:07 | XR ---
EXAMINATION TYPE: XR chest 2V DATE OF EXAM: 01/11/2020 COMPARISON: 09/03/2019 HISTORY: Chest pain and low blood pressure TECHNIQUE: Frontal and lateral views of the chest are obtained. FINDINGS: Resolved right midlung atelectasis with new linear right basilar probable atelectasis. Per sistent minimal left basilar linear probable subsegmental atelectasis. Bullous emphysematous changes of the right upper lobe. Enlarged cardiac mediastinal silhouette, slightly more pronounced than the p rior. IMPRESSION: 1. Resolved right midlung atelectasis with new linear probable right basilar atelectasis and stable p robable left subsegmental atelectasis. 2. Bullous emphysematous changes of the right upper lobe. 3. Enlarged cardiomediastinal silhouette, slightly more pronounced than the prior of 09/13/2019.
[2020-01-11 14:10] LABS: INR 0.9 (<1.2); Partial Thromboplastin Time 22.1 sec (22.0-30.0); Prothrombin Time 9.7 sec (9.0-12.0)
[2020-01-11] MEDS ORDERED: MORPHINE SULFATE 4 MG/ML SYRINGE IVP STA (14:16)
[2020-01-11 14:17] LABS: ALT 10 U/L (4-49); AST 18 U/L (17-59); African American GFR (CKD) >90 (>60 ml/min/1.73 sqM); Albumin 3.1 g/dL (3.5-5.0); Alkaline Phosphatase 73 U/L (38-126); Anion Gap 6 mmol/L; Blood Urea Nitrogen 20 mg/dL (9-20); Calcium 8.3 mg/dL (8.4-10.2); Carbon Dioxide 26 mmol/L (22-30); Chloride 105 mmol/L (98-107); Creatine Kinase 26 U/L (55-170); Glucose 114 mg/dL (74-99); Magnesium 1.8 mg/dL (1.6-2.3); Non-African American GFR(CKD) >90 (>60 ml/min/1.73 sqM); Potassium 4.3 mmol/L (3.5-5.1); Sodium 137 mmol/L (137-145); Total Bilirubin 0.4 mg/dL (0.2-1.3); Total Protein 5.7 g/dL (6.3-8.2)
--- NOTE | 2020-01-11 14:28 | ED ---
Chest Pain HPI - General Chief Complaint: Chest Pain Stated Complaint: chest pain Time Seen by Provider: 01/11/20 13:22 Source: patient, family, EMS, RN notes reviewed, old records reviewed Mode of arrival: EMS Limitations: no limitations - History of Present Illness Initial Comments: This is a 69-year-old male with a history of recent cardiac stenting and PTCA and stenting of the nondominant mid circumflex coronary artery also PT and stenting of a totally occluded proximal dominant RCA and 12/29/21 presents with the onset of chest pain that started about 1 hour prior to arrival midsternal radiating down his left arm he states it was very severe she states it was 8- 9/10 in severity currently 5-6/10 he did get nitroglycerin in the ambulance he did have a drop his blood pressure. No fevers chills and some shortness of breath some sweats with it. The initial catheterization was secondary to findings of coronary artery disease which were asymptomatic prior to a scheduled lung reduction surgery. MD Complaint: chest pain - Related Data Home Medications Medication Instructions Recorded Confirmed Finasteride [Proscar] 5 mg PO HS 10/21/14 01/11/20 Gabapentin [Neurontin] 600 mg PO QAM 10/21/14 01/11/20 Gabapentin 1,200 mg PO HS 04/09/16 01/11/20 traZODone HCL 150 mg PO HS 04/09/16 01/11/20 Albuterol Nebulized [Ventolin 2.5 mg INHALATION RT-QID PRN 06/12/19 01/11/20 Nebulized] ALPRAZolam [Xanax] 0.5 mg PO HS 07/13/19 01/11/20 Budesonide-Formot 160-4.5 Mcg 2 puff INHALATION RT-BID 12/29/19 01/11/20 [Symbicort 160-4.5 Mcg Inhaler] HYDROcodone/APAP 5-325MG [[place] 2 tab PO TID 12/29/19 01/11/20 5-325] Omeprazole Magnesium [PriLOSEC OTC] 20 mg PO BID 12/29/19 01/11/20 Tiotropium 18 Mcg/Puff [Spiriva] 1 puff INHALATION RT-BID 12/29/19 01/11/20 Previous Rx's Medication Instructions Recorded Escitalopram [Lexapro] 5 mg PO DAILY #30 tablet 08/19/19 Aspirin 81 mg PO DAILY #90 chew 12/31/19 Atorvastatin [Lipitor] 80 mg PO HS #90 tab 12/31/19 Furosemide [Lasix] 20 mg PO DAILY #90 tab 12/31/19 Losartan [Cozaar] 50 mg PO DAILY #90 tab 12/31/19 Metoprolol Tartrate [Lopressor] 12.5 mg PO BID #90 tab 12/31/19 Nitroglycerin Sl Tabs [Nitrostat] 0.4 mg SUBLINGUAL Q5M PRN #25 tab 12/31/19 Ticagrelor [Brilinta] 90 mg PO BID #60 tab 12/31/19 metFORMIN HCL [Glucophage] 500 mg PO BID #0 12/31/19 Allergies Allergy/AdvReac Type Severity Reaction Status Date / Time No Known Allergies Allergy Verified 01/11/20 14:36 Review of Systems ROS Statement: Those systems with pertinent positive or pertinent negative responses have been documented in the HPI. ROS Other: All systems not noted in ROS Statement are negative. EKG Findings - EKG Results: EKG: interpreted by CHICA KILLIAN (EKG is compared with that of 12/30/19 2 changes), sinus rhythm, normal axis, normal QRS, normal ST/T, no acute changes Past Medical History Past Medical History: COPD, CVA/TIA, Diabetes Mellitus, GERD/Reflux, Hearing Disorder / Deafness, Hyperlipidemia, Osteoarthritis (OA), Pneumonia, Prostate Disorder, Pulmonary Embolus (PE), Respiratory Disorder Additional Past Medical History / Comment(s): pulmonary embolism/R lower lobe pneumonia/acute hypoxic failure. Portal bollous emphysema. Other hx: fluid retention f, previous history of a pneumothorax requiring a Thoravent insertion back in 2016, home oxygen at 2L/NC prn, diabetes, low back pain with bilateral sciatica; restless leg syndrome; migraines, TIA , BPH, hard of hearing bilaterally, , diverticulosis. New onset diabetes 08/11/19 History of Any Multi-Drug Resistant Organisms: None Reported Past Surgical History: Hernia Repair, Orthopedic Surgery, Tonsillectomy Additional Past Surgical History / Comment(s): Septoplasty/ESSS, EGD, colonoscopy with benign polyp, R inguinal hernia, umbilical hernia, pain clinic procedures for back pain, atilio fundloplication. Past Anesthesia/Blood Transfusion Reactions: No Reported Reaction Past Psychological History: No Psychological Hx Reported Smoking Status: Former smoker Past Alcohol Use History: None Reported Past Drug Use History: None Reported - Past Family History Father History Unknown: Yes Family Medical History: No Reported History, Unable to Obtain Additional Family Medical History / Comment(s): Pt was adopted. Mother History Unknown: Yes Additional Family Medical History / Comment(s): Pt was adopted. General Exam - General Exam Comments Initial Comments: This is a well-developed well-nourished awake alert oriented 3 male Limitations: no limitations General appearance: alert, anxious, in distress Head exam: Present: atraumatic, normocephalic, normal inspection Eye exam: Present: normal appearance, PERRL, EOMI. Absent: scleral icterus, conjunctival injection, periorbital swelling ENT exam: Present: normal exam, mucous membranes moist Neck exam: Present: normal inspection, full ROM, other (No stridor JVD or bruits). Absent: tenderness, meningismus, lymphadenopathy Respiratory exam: Present: normal lung sounds bilaterally. Absent: respiratory distress, wheezes, rales, rhonchi, stridor Cardiovascular Exam: Present: regular rate, normal rhythm, normal heart sounds. Absent: systolic murmur, diastolic murmur, rubs, gallop, clicks GI/Abdominal exam: Present: soft, normal bowel sounds. Absent: distended, tenderness, guarding, rebound, rigid Extremities exam: Present: normal inspection, full ROM, normal capillary refill. Absent: tenderness, pedal edema, joint swelling, calf tenderness Back exam: Present: normal inspection Neurological exam: Present: alert, oriented X3, CN II-XII intact Psychiatric exam: Present: normal affect, normal mood Skin exam: Present: warm, dry, intact, normal color. Absent: rash Course Vital Signs 01/11/20 01/11/20 13:24 15:36 Temperature 97.8 F Pulse Rate 74 74 Respiratory 18 18 Rate Blood Pressure 117/78 104/66 O2 Sat by Pulse 96 96 Oximetry - Reevaluation(s) Reevaluation #1: 01/11/20 15:45 I did reevaluate patient several occasions he still persists in having chest pain which did improve after some IV medication. Initial EKG was negative for acute findings initial troponin was within normal limits. Reevaluation #2: 01/11/20 15:45 I did discuss case with Dr. Rodgers initially and Dr. Ochoa was informed. Patient be admitted for inpatient evaluation. Reevaluation #3: 01/11/20 15:45 Patient does have evidence of a right lower lobe pulmonary embolism and did discuss this with the radiologist. Chest Pain MDM - MDM I did review the imaging and report x-ray was unremarkable for acute findings CT however did show evidence of right lower lobe pulmonary emboli did discuss case Dr. Alexander. I had previously discuss case with Dr. Rashid Critical Care Time Critical Care Time: Yes Critical Care Time: 35 minutes critical care time which includes initial presentation with history physical labs x-rays multiple reevaluation the patient is discussed with patient family regarding the findings review of old charting available discussion with the admitting physician as well as cardiology. Admission orders documentation of the above Disposition Clinical Impression: Pulmonary embolism, Chest pain, Unstable angina pectoris Disposition: ADMITTED IP TO THIS HOSP Condition: Fair Referrals: Dyana Giordano MD [Primary Care Provider] - 1-2 days
[2020-01-11] MEDS ORDERED: HEPARIN SODIUM,PORCINE 5,000 UNIT/ML 1 ML VIAL IV ONE (14:31)
[2020-01-11] MEDS ORDERED: HEPARIN SODIUM,PORCINE 5,000 UNIT/ML 1 ML VIAL IV PRN ×2 (14:31→16:44)
[2020-01-11] MEDS ORDERED: HEPARIN SOD,PORK IN 0.45% NACL 25,000 UNIT in 0.45% NACL 1 250ML.BAG IV SCH (14:45)
--- NOTE | 2020-01-11 15:47 | CT ---
EXAMINATION TYPE: CT angio chest DATE OF EXAM: 01/11/2020 COMPARISON: NONE HISTORY: Post OP 2 weeks cardiac stent placement. Left sided arm and chest pain with shortness of br eath. CT DLP: 524.3 mGycm. Automated Exposure Control for Dose Reduction was Utilized. CONTRAST: CTA scan of the thorax is performed with IV Contrast, patient injected with 100 mL of Isovue 370, pul monary embolism protocol. MIP Images are created on CT scanner and reviewed. FINDINGS: LUNGS: Marked bullous emphysematous changes of the lung apices as seen on the prior with extensive em physematous changes throughout the remainder the lungs. New right middle lobe and bibasilar linear at electasis. Extensive motion artifact of the lungs limits evaluation for subcentimeter pulmonary nodul e. MEDIASTINUM: Filling defects are seen to the segmental and subsegmental pulmonary arteries to the rig ht lower lobe beginning on axial image 96 through images 104. No left-sided pulmonary artery filling defects are seen. The main pulmonary artery is upper limits of normal size measuring 2.9 cm. Mild cor onary artery calcifications. History of recently placed RCA cardiac stent. Right ventricular to left ventricular ratio is abnormal. No reflux of contrast into the inferior vena cava or hepatic veins. Th ere are no greater than 1 cm hilar or mediastinal lymph nodes. No cardiomegaly or pericardial effus ion is seen. OTHER: Small hiatal hernia seen. There are 2 masslike areas of hypoattenuation in the left hepatic lo be the first on image 121 measuring 3.2 cm and the second on image 131 measuring 1.0 cm. There is als o lobular contour and exophytic mass of the inferior hepatic margin anteriorly on image 153 measuring 3.0 cm. Lobulated contour is seen of the left kidney that may represent prior scarring. Small Bochda lek hernia seen. Median sternotomy wires are present. Minimal degenerative change of the spine. IMPRESSION: 1. Acute segmental and subsegmental pulmonary emboli to the right lower lobe. Equivocal findings of r ight heart strain as there is an abnormal right ventricular to left ventricular ratio and upper limit s of normal size of the main pulmonary artery however clot burden is small and there is no reflux of contrast into the inferior vena cava and hepatic veins. Findings communicated with the ordering ER ph ysician Dr. Remy at 1540 on 01/11/2020. 2. Multiple indeterminate hepatic lesions again enhanced liver MRI is recommended on a nonemergent ba sis for further characterization. 3. Extensive emphysematous changes of the lungs and multifocal atelectasis. 4. Small hiatal hernia.
[2020-01-11] MEDS ORDERED: NITROGLYCERIN SL TABS 0.4 MG TAB SUBLINGUAL PRN (15:48)
[2020-01-11] MEDS: SODIUM CHLORIDE 0.9% 1,000 ML IV SCH (16:30)
[2020-01-11 17:12] LABS: Glucose,Whole Blood 127 mg/dL (75-99)
[2020-01-11] MEDS: HEPARIN SOD,PORK IN 0.45% NACL 25,000 UNIT in 0.45% NACL 1 250ML.BAG IV SCH ×2 (17:55→22:27)
[2020-01-11] MEDS: INSULIN ASPART (NovoLOG) 100 UNIT/ML VIAL SQ SCH ×2 (17:56→22:26)
[2020-01-11] MEDS: NITROGLYCERIN OINT 1 INCH/GM PACKET TOPICAL SCH (17:57)
[2020-01-11] MEDS: HYDROcodone/APAP 5-325MG 1 EACH TAB PO SCH (17:58)
[2020-01-11] MEDS: METOPROLOL TARTRATE 12.5 MG TAB PO SCH (20:24)
[2020-01-11] MEDS: ATORVASTATIN 80 MG TAB PO SCH (20:24)
[2020-01-11] MEDS: traZODone HCL 50 MG TAB PO SCH (20:25)
[2020-01-11] MEDS: PANTOPRAZOLE 40 MG TABLET PO SCH (20:25)
[2020-01-11] MEDS: GABAPENTIN 400 MG CAP PO SCH (20:26)
[2020-01-11] MEDS: SYMBICORT 160-4.5 MCG INHALER INHALATION SCH (20:36)
[2020-01-11 20:46] LABS: Glucose,Whole Blood 141 mg/dL (75-99)
[2020-01-11] MEDS ORDERED: ALPRAZolam 0.5 MG TAB PO SCH (21:00)
[2020-01-11] MEDS ORDERED: FINASTERIDE 5 MG TAB PO SCH (21:00)
[2020-01-11] MEDS: TICAGRELOR 90 MG TAB PO SCH (22:26)
[2020-01-12 05:33] LABS: Basophils % (A) 0 %; Eosinophils # (A) 0.4 k/uL (0-0.7); Eosinophils % (A) 4 %; HCT 39.7 % (39.0-53.0); HGB 12.6 gm/dL (13.0-17.5); Hypochromasia Slight; Lymphocytes # (A) 1.7 k/uL (1.0-4.8); Lymphocytes % (A) 19 %; MCH 28.3 pg (25.0-35.0); MCHC 31.7 g/dL (31.0-37.0); MCV 89.1 fL (80.0-100.0); Mean Platelet Volume 7.2; Monocytes # (A) 0.5 k/uL (0-1.0); Monocytes % (A) 5 %; Neutrophils # (A) 6.4 k/uL (1.3-7.7); Neutrophils % (A) 70 %; Platelet Count 310 k/uL (150-450); RBC 4.45 m/uL (4.30-5.90); WBC 9.1 k/uL (3.8-10.6)
[2020-01-12 06:11] LABS: Cholesterol 106 mg/dL (<200); HDL Cholesterol 24 mg/dL (40-60); LDL Cholesterol,Calculated 54 mg/dL (0-99); Triglycerides 141 mg/dL (<150)
[2020-01-12] MEDS: NITROGLYCERIN OINT 1 INCH/GM PACKET TOPICAL SCH ×3 (06:12→13:11)
[2020-01-12 06:18] LABS: Glucose,Whole Blood 115 mg/dL (75-99)
[2020-01-12 06:45] LABS: HCT 39.8 % (39.0-53.0); HGB 12.6 gm/dL (13.0-17.5); MCH 28.4 pg (25.0-35.0); MCHC 31.7 g/dL (31.0-37.0); MCV 89.7 fL (80.0-100.0); Mean Platelet Volume 6.6; Platelet Count 297 k/uL (150-450); RBC 4.44 m/uL (4.30-5.90); WBC 11.1 k/uL (3.8-10.6)
[2020-01-12] MEDS: HYDROcodone/APAP 5-325MG 1 EACH TAB PO SCH ×3 (07:00→17:01)
[2020-01-12 07:31] LABS: African American GFR (CKD) >90 (>60 ml/min/1.73 sqM); Anion Gap 3 mmol/L; Blood Urea Nitrogen 19 mg/dL (9-20); Calcium 8.2 mg/dL (8.4-10.2); Carbon Dioxide 27 mmol/L (22-30); Chloride 108 mmol/L (98-107); Glucose 105 mg/dL (74-99); Non-African American GFR(CKD) >90 (>60 ml/min/1.73 sqM); Potassium 3.9 mmol/L (3.5-5.1); Sodium 138 mmol/L (137-145)
[2020-01-12] MEDS: SYMBICORT 160-4.5 MCG INHALER INHALATION SCH ×2 (08:21→19:28)
[2020-01-12] MEDS: IPRATROPIUM 0.5 MG/2.5 ML NEBU INHALATION SCH ×4 (08:23→19:33)
[2020-01-12] MEDS: INSULIN ASPART (NovoLOG) 100 UNIT/ML VIAL SQ SCH ×4 (08:34→21:06)
[2020-01-12] MEDS ORDERED: LOSARTAN 50 MG TAB PO SCH (09:00)
[2020-01-12] MEDS ORDERED: ASPIRIN 325 MG TAB PO SCH (09:00)
[2020-01-12] MEDS: FUROSEMIDE 20 MG TAB PO SCH (09:19)
[2020-01-12] MEDS: ESCITALOPRAM 5 MG TAB PO SCH (09:19)
[2020-01-12] MEDS: TICAGRELOR 90 MG TAB PO SCH (09:20)
[2020-01-12] MEDS: GABAPENTIN 300 MG CAP PO SCH (09:21)
[2020-01-12] MEDS: METOPROLOL TARTRATE 12.5 MG TAB PO SCH ×2 (09:21→21:04)
[2020-01-12] MEDS: ASPIRIN 81 MG PO SCH (09:21)
[2020-01-12] MEDS: PANTOPRAZOLE 40 MG TABLET PO SCH ×2 (09:21→21:04)
[2020-01-12] MEDS ORDERED: ASPIRIN 325 MG TAB PO STA (09:29)
[2020-01-12] MEDS ORDERED: ATORVASTATIN 80 MG TAB PO STA (09:29)
[2020-01-12] MEDS ORDERED: NITROGLYCERIN SL TABS 0.4 MG TAB SUBLINGUAL PRN ×2 (09:29→12:14)
[2020-01-12] MEDS ORDERED: SODIUM CHLORIDE 0.9% 1,000 ML in EMPTY BAG 1 BAG IV ONE (09:29)
[2020-01-12] MEDS ORDERED: ALPRAZolam 0.5 MG TAB PO PRN (09:29)
--- NOTE | 2020-01-12 09:47 | ECHOF ---
Referral Reason:Chest pain MEASUREMENTS -------- HEIGHT: 180.3 cm WEIGHT: 81.7 kg BP: 117/78 RVIDd: 5.1 cm (< 3.3) IVSd: 1.5 cm (0.6 - 1.1) LVIDd: 4.6 cm (3.9 - 5.3) LVPWd: 1.6 cm (0.6 - 1.1) IVSs: 1.9 cm LVIDs: 2.5 cm LVPWs: 2.0 cm FINDINGS -------- Sinus rhythm. Limited Study There is moderate concentric left ventricular hypertrophy. Overall left ventricular systolic functi on is low-normal with, an EF between 50 - 55 %. The right ventricle is moderate to severely enlarged. There is no pericardial effusion. CONCLUSIONS -------- 1. Sinus rhythm. 2. Limited Study 3. There is moderate concentric left ventricular hypertrophy. 4. Overall left ventricular systolic function is low-normal with, an EF between 50 - 55 %. 5. The right ventricle is moderate to severely enlarged. 6. There is no pericardial effusion. AUTOMATION AND CONTROLS MANAGER: Tonie Crandall, [facility]
[2020-01-12] MEDS: TAMSULOSIN 0.4 MG CAP.ER.24H PO SCH ×2 (10:00→21:05)
[2020-01-12] MEDS: MORPHINE SULFATE 2 MG/ML SYRINGE IVP PRN ×3 (10:00→21:05)
--- NOTE | 2020-01-12 10:33 | CONS ---
CONSULTATION Mr Duong is a 69-year-old gentleman who is seen for cardiac evaluation. This patient's medical records reviewed. This patient has advanced COPD and emphysema and patient was supposed to have a lung reduction surgery. In the preop evaluation, patient had abnormal stress test, underwent cardiac catheterization and patient underwent stent to the mid circumflex artery as well as a totally occluded proximal dominant RCA. Patient was doing well. He presented yesterday with a sudden onset of pain on the retrosternal and the left side with radiating to the inside of the left arm. He was slightly short of breath, but did not have any nausea, vomiting, or sweating. His shortness of breath was unchanged as compared to his baseline. In the emergency room patient was evaluated. He had a mild elevation in the D-dimer. CT scan was done which showed a possible pulmonary embolism, but that was noticed on the right side. The patient's initial troponin was normal, but subsequent troponin is 2.5 and this morning the troponin is 4.5. At present, he has been having occasional mild discomfort. HOME MEDICATIONS: Include Neurontin, gabapentin, trazodone, Xanax, Symbicort, hydrocodone, omeprazole and Spiriva, Lexapro 5 mg daily, baby aspirin once a day, Lasix twice a day, Lasix once a day, Cozaar 50 mg daily, Lopressor 12.5 mg b.i.d. and Lipitor 80 mg daily, Brilinta 90 mg b.i.d., and metformin 500 mg b.i.d. PHYSICAL EXAMINATION: At present reveals a 69-year-old gentleman who does not appear to be in any acute distress. The patient's initial oxygen saturation was 96%. Patient was afebrile, heart rate was 74, blood pressure was 104/66 mmHg. At present, patient is comfortable without any significant chest pain or respiratory distress. Blood pressure is 110/80 mmHg. First and second heart sounds are normal. Lungs are clinically clear to auscultation and percussion. Abdomen is negative extremities there is no evidence of any leg edemas. Patient's EKG shows normal sinus rhythm without any acute ischemic changes. Maximum troponin of 4.06 is noted. EKG is normal. Echocardiogram does not show any significant wall motion abnormality. FINAL IMPRESSION: This patient presented with a left-sided chest discomfort with status post history of recent stent placement. The patient has the patient has a patient's troponin maximum troponin is 0.4 0.06 and his noted non ST-segment elevation myocardial infarction cannot be entirely excluded. The patient does have evidence of pulmonary embolism, but the pulmonary embolism was on the right side. I discussed with the patient as well as Dr. Erasmo Ochoa in view of the abnormal troponin and the symptoms on the patient's of pulmonary embolism, he is being on the right side. We will the patient is advised to undergo repeat cardiac catheterization to rule out any significant subacute thrombosis of the in the recent stent placement. MMODL / IJN: [id number] /
[2020-01-12] MEDS ORDERED: SODIUM CHLORIDE 0.9% 1,000 ML IV ONE (10:54)
[2020-01-12] MEDS ORDERED: LIDOCAINE 1% INJ 10MG/ML (20 ML MDV) ONE (10:55)
[2020-01-12] MEDS ORDERED: LIDOCAINE 1% INJ 10MG/ML (20 ML MDV) SQ ONE (11:10)
[2020-01-12] MEDS: MIDAZOLAM 2 MG/2 ML VIAL IVP ONE ×2 (11:11→11:21)
--- NOTE | 2020-01-12 11:12 | P.CNPUL ---
History of Present Illness Consult date: 01/12/20 Reason for consult: chest pain, COPD, pulmonary embolism Chief complaint: Left upper chest pain and left arm pain History of present illness: 69-year-old male patient who follows with Dr. Rascon in the pulmona ry clinic for history of chronic bullous emphysema, COPD stage III, with chronic hypoxemic respiratory failure, history of right-sided pneumothorax requiring Thoravent placement, and previous history of right lower lobe segmental and subsegmental branch emboli, and patient completed a course of Eliquis. Patient has advanced bullous emphysema with upper lobe predominance, right greater than left, and multiple exacerbations of COPD. Outpatient PFT showed FEV1 of 1.87 L or 56% of predicted, FVC of 3.72 L or 82% of predicted with total lung capacity of 409%, and RV/TLC of 136%, and moderately severe diffusion abnormality with DLVA of 56% of predicted. He has chronic bullous changes within the lungs with apical predominance and some limited amount of scarring in the lung bases, there was bronchial wall thickening no mediastinal lymphadenopathy. There was a liver lesion noted and MRI of the liver was suggested by the radiologist. Patient was referred to Dr. Calzada at the [facility] for lung reduction surgery and required preop cardiac clearance. 2 weeks ago patient had a heart ca theterization with PTCA and stenting of a totally occluded proximal dominant RCA with 2 drug-eluting stents and a stenting of a nondominant mid circumflex coronary artery. Patient was discharged home on Brilinta and aspirin. On the 01/11/2020 patient presents to the emergency department with complaints of left upper chest pain, with radiation to his left arm. Patient denies any worsening dyspnea, he is chronically dyspneic on regular basis. Describes the pain as severe, 9 out of 10, with relief after nitroglycerin. No fevers, no chills, no cough, no hemoptysis, no diaphoresis. Have a blood pressure drop after nitroglycerin was administered and an ambulance. Recovered, initially EKG was negative for acute findings and initial troponin was within normal limits, d- dimer was elevated at the 1.79, and CTA chest was obtained showing acute segmental and subsegmental pulmonary emboli in the right lower lobe with abnormal right ventricular to left ventricular ratio and upper limits of normal size of the main pulmonary artery. Echocardiogram showed EF of 50-55%, moderate to severely enlarged right ventricle, and patient has been started on high intensity heparin infusion. Troponins were 0.241, 2.570, and 4.060, this morning patient seen on selective care unit, still having left upper chest discomfort 3 out of 10, but no shortness of breath, he is on oxygen intermittently, he was able to get up and take a shower, he is getting ready to be taken down for heart catheterization today. Review of Systems All systems: negative Constitutional: Denies chills, Denies fever Eyes: denies blurred vision, denies pain Ears, nose, mouth and throat: Denies headache, Denies sore throat Cardiovascular: Reports chest pain, Denies shortness of breath Respiratory: Denies cough Gastrointestinal: Denies abdominal pain, Denies diarrhea, Denies nausea, Denies vomiting Musculoskeletal: Denies myalgias Integumentary: Denies pruritus, Denies rash Neurological: Denies numbness, Denies weakness Psychiatric: Denies anxiety, Denies depression Endocrine: Denies fatigue, Denies weight change Past Medical History Past Medical History: COPD, CVA/TIA, Diabetes Mellitus, GERD/Reflux, Hearing Disorder / Deafness, Hyperlipidemia, Osteoarthritis (OA), Pneumonia, Prostate Disorder, Pulmonary Embolus (PE), Respiratory Disorder Additional Past Medical History / Comment(s): pulmonary embolism/R lower lobe pneumonia/acute hypoxic failure. Portal bollous emphysema. Other hx: fluid retention f, previous history of a pneumothorax requiring a Thoravent insertion back in 2015, home oxygen at 2L/NC prn, diabetes, low back pain with bilateral sciatica; restless leg syndrome; migraines, TIA , BPH, hard of hearing juan carlos aterally, , diverticulosis. New onset diabetes 08/11/19 History of Any Multi-Drug Resistant Organisms: None Reported Past Surgical History: Heart Catheterization With Stent, Hernia Repair, Orthopedic Surgery, Tonsillectomy Additional Past Surgical History / Comment(s): Septoplasty/ESSS, EGD, colonoscopy with benign polyp, R inguinal hernia, umbilical hernia, pain clinic procedures for back pain, atilio fundloplication. Past Anesthesia/Blood Transfusion Reactions: No Reported Reaction Date of Last Stent Placement:: \2019 Past Psychological History: No Psychological Hx Reported Additional Psychological History / Comment(s): Pt resides with his spouse. He uses no assistive device. He drives. He has a nebulizer and home oxygen. Currently does not use his oxygen. Smoking Status: Former smoker Past Alcohol Use History: None Reported Additional Past Alcohol Use History / Comment(s): Pt started smoking in 1967 and quit in 2007. Past Drug Use History: None Reported - Past Family History Father History Unknown: Yes Family Medical History: No Reported History, Unable to Obtain Additional Family Medical History / Comment(s): Pt was adopted. Mother History Unknown: Yes Additional Family Medical History / Comment(s): Pt was adopted. Medications and Allergies Home Medications Medication Instructions Recorded Confirmed Type Finasteride [Proscar] 5 mg PO HS 10/21/14 01/11/20 History Gabapentin [Neurontin] 600 mg PO QAM 10/21/14 01/11/20 History Gabapentin 1,200 mg PO HS 04/09/16 01/11/20 History traZODone HCL 150 mg PO HS 04/09/16 01/11/20 History Albuterol Nebulized [Ventolin 2.5 mg INHALATION RT-QID PRN 06/12/19 01/11/20 History Nebulized] Escitalopram [Lexapro] 5 mg PO DAILY #30 tablet 06/15/19 01/11/20 Rx ALPRAZolam [Xanax] 0.5 mg PO HS 07/13/19 01/11/20 History Budesonide-Formot 160-4.5 Mcg 2 puff INHALATION RT-BID 12/29/19 01/11/20 History [Symbicort 160-4.5 Mcg Inhaler] HYDROcodone/APAP 5-325MG [[place] 2 tab PO TID 12/29/19 01/11/20 History 5-325] Omeprazole Magnesium [PriLOSEC OTC] 20 mg PO BID 12/29/19 01/11/20 History Tiotropium 18 Mcg/Puff [Spiriva] 1 puff INHALATION RT-BID 12/29/19 01/11/20 History Aspirin 81 mg PO DAILY #90 chew 12/31/19 01/11/20 Rx Atorvastatin [Lipitor] 80 mg PO HS #90 tab 12/31/19 01/11/20 Rx Furosemide [Lasix] 20 mg PO DAILY #90 tab 12/31/19 01/11/20 Rx Losartan [Cozaar] 50 mg PO DAILY #90 tab 12/31/19 01/11/20 Rx Metoprolol Tartrate [Lopressor] 12.5 mg PO BID #90 tab 12/31/19 01/11/20 Rx Nitroglycerin Sl Tabs [Nitrostat] 0.4 mg SUBLINGUAL Q5M PRN #25 tab 12/31/19 01/11/20 Rx Ticagrelor [Brilinta] 90 mg PO BID #60 tab 12/31/19 01/11/20 Rx metFORMIN HCL [Glucophage] 500 mg PO BID #0 12/31/19 01/11/20 Rx Tamsulosin HCl [Flomax] 0.4 mg PO BID 01/12/20 01/12/20 History Allergies Allergy/AdvReac Type Severity Reaction Status Date / Time No Known Allergies Allergy Verified 01/11/20 14:36 Physical Exam Vitals: Vital Signs Temp Pulse Pulse Resp BP BP Pulse Ox 01/12/20 04:00 97.8 F 66 18 92/56 93 L 01/12/20 00:00 97.7 F 75 18 76/47 91 L 01/11/20 20:00 97.7 F 83 18 111/65 96 01/11/20 17:11 98.2 F 75 16 81/55 95 01/11/20 16:30 82 18 91/63 96 01/11/20 15:36 74 18 104/66 96 01/11/20 13:24 97.8 F 74 18 117/78 96 Intake and Output 01/11/20 01/12/20 01/12/20 22:59 06:59 14:59 Intake Total 240 800 Balance 240 800 Intake: Oral 240 800 Other: Voiding Method Toilet Weight 81.647 kg 83.5 kg GENERAL EXAM: Alert, pleasant, 69-year-old white male, on room air, comfortable in no apparent distress. HEAD: Normocephalic/atraumatic. EYES: Normal reaction of pupils, equal size. Conjunctiva pink, sclera white. NOSE: Clear with pink turbinates. THROAT: No erythema or exudates. NECK: No masses, no JVD, no thyroid enlargement, no adenopathy. CHEST: No chest wall deformity. Symmetrical expansion. LUNGS: Equal air entry with no crackles, wheeze, rhonchi or dullness. CVS: Regular rate and rhythm, normal S1 and S2, no gallops, no murmurs, no rubs ABDOMEN: Soft, nontender. No hepatosplenomegaly, normal bowel sounds, no guarding or rigidity. EXTREMITIES: No clubbing, no edema, no cyanosis, 2+ pulses and upper and lower extremities. MUSCULOSKELETAL: Muscle strength and tone normal. SPINE: No scoliosis or deformity SKIN: No rashes CENTRAL NERVOUS SYSTEM: Alert and oriented -3. No focal deficits, tone is normal in all 4 extremities. PSYCHIATRIC: Alert and oriented -3. Appropriate affect. Intact judgment and insight. Results - Laboratory Findings CBC and BMP: 01/12/20 06:12 01/12/20 06:12 PT/INR, D-dimer PT 9.7 sec (9.0-12.0) 01/11/20 13:36 INR 0.9 (<1.2) 01/11/20 13:36 D-Dimer 1.79 mg/L FEU (<0.60) H 01/11/20 13:36 Abnormal lab findings: Abnormal Labs 01/11/20 01/11/20 01/11/20 13:36 13:36 13:36 WBC 12.9 H Hgb Neutrophils # 10.2 H APTT D-Dimer 1.79 H Chloride Glucose 114 H POC Glucose (mg/dL) Calcium 8.3 L Creatine Kinase 26 L Troponin I Total Protein 5.7 L Albumin 3.1 L HDL Cholesterol 01/11/20 01/11/20 01/11/20 17:10 18:28 20:45 WBC Hgb Neutrophils # APTT D-Dimer Chloride Glucose POC Glucose (mg/dL) 127 H 141 H Calcium Creatine Kinase Troponin I 0.241 H* Total Protein Albumin HDL Cholesterol 01/11/20 01/12/20 01/12/20 21:12 01:50 05:21 WBC Hgb 12.6 L Neutrophils # APTT 31.1 H D-Dimer Chloride Glucose POC Glucose (mg/dL) Calcium Creatine Kinase Troponin I 2.570 H* Total Protein Albumin HDL Cholesterol 01/12/20 01/12/20 01/12/20 05:21 05:21 06:12 WBC 11.1 H Hgb 12.6 L Neutrophils # APTT 61.6 H D-Dimer Chloride Glucose POC Glucose (mg/dL) Calcium Creatine Kinase Troponin I Total Protein Albumin HDL Cholesterol 24 L 01/12/20 01/12/20 01/12/20 06:12 06:12 06:17 WBC Hgb Neutrophils # APTT D-Dimer Chloride 108 H Glucose 105 H POC Glucose (mg/dL) 115 H Calcium 8.2 L Creatine Kinase Troponin I 4.060 H* Total Protein Albumin HDL Cholesterol - Diagnostic Findings Chest x-ray: report reviewed, image reviewed CT scan - chest: report reviewed, image reviewed Additional studies: Echocardiogram reviewed, EKG reviewed Assessment and Plan Plan: Assessment: #1. Acute chest pain in the left chest, with left arm radiation, rule out acute coronary syndrome #2. Right lower lobe segmental and subsegmental pulmonary emboli, acute. With echocardiogram showing moderate to severe enlargement of the right ventricle suggesting right ventricular strain. There was a positive troponin leak of 0.241, 2.570, and 4.060 #3. Recent PTCA and stenting of the circumflex and RCA 2 weeks ago, patient was on Brilinta and Aspirin #4. Advanced bullous emphysema, severe COPD, stage III, with FEV1 of 58% of predicted and patient was referred for lung reduction surgery at [facility] #5. Chronic hypoxic respiratory failure, wears oxygen as needed at home #6. Former smoker, carries a [id number] smoking history, currently in remission #7. Chronic scarring at the lung bases as seen on the CT of the chest #8. Previous history of pulmonary emboli in segmental and subsegmental branches of the right lower lobe and June 2019, and patient completed a course of Eliquis #9. Previous history of right pneumothorax in 2016 requiring Thoravent inser tion #10. Multiple COPD exacerbations #11. Hypertension #12. Hyperlipidemia #13. Osteoarthritis #14. History of CVA #15. Liver hemangiomas Plan: Continue high-intensity IV heparin, hemodynamically patient is stable, he still has some residual left upper chest discomfort, troponin peaked at 4.06, and patient is going for a heart catheterization today. His breathing seems to be stable, no worsening dyspnea, no cough or congestion. No pleuritic discomfort, no hemoptysis, CTA chest echocardiogram were reviewed. Continue to follow and make further recommendations, in view of recurrence of pulmonary emboli patient will need lifelong anticoagulation, and his lung reduction surgery has been postponed until at least June 2020 I performed a history & physical examination of the patient and discussed their management with my nurse practitioner, Teetee Mathew. I reviewed the nurse practitioner's note and agree with the documented findings and plan of care. Lung sounds are positive for diminished breath sounds. The findings and the impression was discussed with the patient. I attest to the documentation by the nurse practitioner. Time with Patient: Greater than 30
[2020-01-12] MEDS ORDERED: HYDROmorphone 1 MG/ML 1 ML SYRINGE ONE (11:13)
[2020-01-12] MEDS ORDERED: HYDROmorphone 1 MG/ML 1 ML SYRINGE IVP ONE (11:17)
[2020-01-12] MEDS ORDERED: BIVALIRUDIN BOLUS 250 MG/50 ML IV ONE (11:29)
[2020-01-12] MEDS ORDERED: BIVALIRUDIN 250 MG in SODIUM CHLORIDE 0.9% 50 ML IV ONE (11:30)
[2020-01-12] MEDS: NITROGLYCERIN 1000MCG/10ML SYRINGE INTRACORON ONE ×2 (11:43→11:57)
[2020-01-12] MEDS ORDERED: IOPAMIDOL-370 100ML BTL INJ ONE (11:43)
[2020-01-12] MEDS ORDERED: CLOPIDOGREL 75 MG TAB ONE (11:44)
[2020-01-12] MEDS ORDERED: CLOPIDOGREL 75 MG TAB PO ONE (11:48)
[2020-01-12] MEDS ORDERED: IOPAMIDOL-370 100ML BTL PO ONE (12:07)
[2020-01-12] MEDS ORDERED: SODIUM CHLORIDE 0.9% 500 ML 500 ML IV ONE (12:08)
[2020-01-12] MEDS ORDERED: ZOLPIDEM 5 MG TAB PO PRN (12:14)
[2020-01-12] MEDS ORDERED: MAG HYDROX/AL HYDROX/SIMETH 30 ML CUP PO PRN (12:14)
[2020-01-12] MEDS ORDERED: RX INFO: IV CONTRAST WAS GIVEN 1 EACH MISC MISCELLANE PRN (12:14)
[2020-01-12] MEDS ORDERED: ATROPINE SULFATE 0.1 MG/ML 10ML SYRINGE IV PRN (12:14)
[2020-01-12] MEDS: SODIUM CHLORIDE 0.9% 1,000 ML IV SCH ×3 (12:47→17:19)
[2020-01-12 12:50] LABS: Glucose,Whole Blood 105 mg/dL (75-99)
[2020-01-12] MEDS: APIXABAN 5 MG TAB PO SCH ×2 (12:55→21:05)
[2020-01-12 13:20] VITALS: BMI 25.7
--- NOTE | 2020-01-12 13:50 | P.HPIM ---
History of Present Illness H&P Date: 01/12/20 This is a 69-year-old male patient of Abiodun Matthews and when necessary he with past history of chronic bullous emphysema, COPD stage III, chronic hypoxic respiratory failure, right sided pneumothorax requiring Thora vent placement, history of large right lower lobe segmental and subsegmental branch emboli diagnosed last summer. Patient was on eliquis for several months but did not complete a full course. It was indeterminate whether this was truly a PE. Patient states he is scheduled for a lung reduction surgery at [facility] and required cardiac clearance. He underwent a heart catheterization, PTCA and stenting with Dr. LEDY Ochoa of a totally occluded proximal dominant RCA with 2 drug-eluting stents and a stenting of a nondominant mid circumflex coronary artery. Patient was started on Noel diet at that time. Patient states that as of yesterday he developed shortness of breath which she normally has some shortness of breath with this is more severe. He also had some pain in his left arm on the inside and left-sided chest pain. By the time he came to the ER the pain never went away with medication. He took one nitroglycerin at home and one by EMS had a drop in his blood pressure. Nitropaste was applied in the ER but this was later removed due to low blood pressure. Patient states he was a little lightheaded, no dizziness. He denies any abdominal pain, no nausea or vomiting, no blood or tarry stools. His EKG was negative for acute findings, troponin negative, d-dimer 1.79, CT of the chest showed acute segmental and subsegmental pulmonary emboli in the right lower lobe with abnormal right ventricular to left ventricular ray showing upper limits of normal size of the main pulmonary artery. Echocardiogram showed EF of 50-55%, moderate to severely enlarged right ventricle. Troponins were 0.241, 2.570, and 4.060 and patient started on heparin drip. Consults in place with cardiology and pulmonary medicine. Review of Systems Constitutional: Denies chills, Denies fatigue, Denies fever, Denies lethargy, Denies malaise, Denies poor appetite, Denies weight loss Eyes: denies blurred vision, denies pain Ears, nose, mouth and throat: Denies dysphagia, Denies nasal congestion, Denies nasal discharge, Denies sore throat, Denies vertigo Cardiovascular: Reports chest pain, Reports dyspnea on exertion, Reports lightheadedness, Reports shortness of breath, Denies palpitations, Denies syncope Respiratory: Reports dyspnea, Denies cough, Denies excessive sputum, Denies hemoptysis Gastrointestinal: Denies abdominal pain, Denies BRBPR, Denies coffee ground emesis, Denies diarrhea, Denies hematemesis, Denies hematochezia, Denies loss of appetite, Denies melena, Denies nausea, Denies vomiting Genitourinary: Denies dysuria, Denies urinary retention Musculoskeletal: Denies frequent falls, Denies gait dysfunction, Denies muscle weakness, Denies myalgias Integumentary: Denies pruritus, Denies rash, Denies wounds Neurological: Denies numbness, Denies weakness Psychiatric: Denies anxiety, Denies depression Endocrine: Denies fatigue, Denies weight change Past Medical History Past Medical History: COPD, CVA/TIA, Diabetes Mellitus, GERD/Reflux, Hearing Disorder / Deafness, Hyperlipidemia, Osteoarthritis (OA), Pneumonia, Prostate Disorder, Pulmonary Embolus (PE), Respiratory Disorder Additional Past Medical History / Comment(s): pulmonary embolism/R lower lobe pneumonia/acute hypoxic failure. Portal bollous emphysema. Other hx: fluid retention f, previous history of a pneumothorax requiring a Thoravent insertion back in 2015, home oxygen at 2L/NC prn, diabetes, low back pain with bilateral sciatica; restless leg syndrome; migraines, TIA , BPH, hard of hearing bilaterally, , diverticulosis. New onset diabetes 08/11/19 History of Any Multi-Drug Resistant Organisms: None Reported Past Surgical History: Heart Catheterization With Stent, Hernia Repair, Orthopedic Surgery, Tonsillectomy Additional Past Surgical History / Comment(s): Septoplasty/ESSS, EGD, colonosc opy with benign polyp, R inguinal hernia, umbilical hernia, pain clinic procedures for back pain, atilio fundloplication. Past Anesthesia/Blood Transfusion Reactions: No Reported Reaction Date of Last Stent Placement:: Past Psychological History: No Psychological Hx Reported Additional Psychological History / Comment(s): Pt resides with his spouse. He uses no assistive device. He drives. He has a nebulizer and home oxygen. Currently does not use his oxygen. Smoking Status: Former smoker Past Alcohol Use History: None Reported Additional Past Alcohol Use History / Comment(s): Pt started smoking in 1967 1-1 -1/2 packs per day and quit in 2007. Past Drug Use History: None Reported - Past Family History Father History Unknown: Yes Family Medical History: No Reported History, Unable to Obtain Additional Family Medical History / Comment(s): Pt was adopted. Mother History Unknown: Yes Additional Family Medical History / Comment(s): Pt was adopted. Daughter(s) Additional Family Medical History / Comment(s): Children do not have any major medical problems. No history of blood clots. Medications and Allergies Home Medications Medication Instructions Recorded Confirmed Type Finasteride [Proscar] 5 mg PO HS 10/21/14 01/11/20 History Gabapentin [Neurontin] 600 mg PO QAM 10/21/14 01/11/20 History Gabapentin 1,200 mg PO HS 04/09/16 01/11/20 History traZODone HCL 150 mg PO HS 04/09/16 01/11/20 History Albuterol Nebulized [Ventolin 2.5 mg INHALATION RT-QID PRN 06/12/19 01/11/20 History Nebulized] Escitalopram [Lexapro] 5 mg PO DAILY #30 tablet 06/15/19 01/11/20 Rx ALPRAZolam [Xanax] 0.5 mg PO HS 07/13/19 01/11/20 History Budesonide-Formot 160-4.5 Mcg 2 puff INHALATION RT-BID 12/29/19 01/11/20 History [Symbicort 160-4.5 Mcg Inhaler] HYDROcodone/APAP 5-325MG [Ethel 2 tab PO TID 12/29/19 01/11/20 History 5-325] Omeprazole Magnesium [PriLOSEC OTC] 20 mg PO BID 12/29/19 01/11/20 History Tiotropium 18 Mcg/Puff [Spiriva] 1 puff INHALATION RT-BID 12/29/19 01/11/20 History Aspirin 81 mg PO DAILY #90 chew 12/31/19 01/11/20 Rx Atorvastatin [Lipitor] 80 mg PO HS #90 tab 12/31/19 01/11/20 Rx Furosemide [Lasix] 20 mg PO DAILY #90 tab 12/31/19 01/11/20 Rx Losartan [Cozaar] 50 mg PO DAILY #90 tab 12/31/19 01/11/20 Rx Metoprolol Tartrate [Lopressor] 12.5 mg PO BID #90 tab 12/31/19 01/11/20 Rx Nitroglycerin Sl Tabs [Nitrostat] 0.4 mg SUBLINGUAL Q5M PRN #25 tab 12/31/19 01/11/20 Rx Ticagrelor [Brilinta] 90 mg PO BID #60 tab 12/31/19 01/11/20 Rx metFORMIN HCL [Glucophage] 500 mg PO BID #0 12/31/19 01/11/20 Rx Tamsulosin HCl [Flomax] 0.4 mg PO BID 01/12/20 01/12/20 History Allergies Allergy/AdvReac Type Severity Reaction Status Date / Time No Known Allergies Allergy Verified 01/11/20 14:36 Physical Exam Vitals: Vital Signs Temp Pulse Pulse Resp BP BP Pulse Ox 01/12/20 04:00 97.8 F 66 18 92/56 93 L 01/12/20 00:00 97.7 F 75 18 76/47 91 L 01/11/20 20:00 97.7 F 83 18 111/65 96 01/11/20 17:11 98.2 F 75 16 81/55 95 01/11/20 16:30 82 18 91/63 96 01/11/20 15:36 74 18 104/66 96 01/11/20 13:24 97.8 F 74 18 117/78 96 Intake and Output 01/11/20 01/12/20 01/12/20 22:59 06:59 14:59 Intake Total 240 800 Balance 240 800 Intake: Oral 240 800 Other: Voiding Method Toilet Weight 81.647 kg 83.5 kg Gen: This is a 69-year-old male. Patient is resting in bed and appears to be comfortable and in no acute distress. No respiratory distress is noted. HEENT: Head is atraumatic, normocephalic. Pupils equal, round. Sclerae is anicteric. NECK: Supple. No JVD. No lymphadenopathy. No thyromegaly. LUNGS: Few expiratory wheezes, diminished. No intercostal retractions. HEART: Regular rate and rhythm. no murmur. ABDOMEN: Soft. Bowel sounds are present. No masses. No tenderness. EXTREMITIES: No pedal edema. No calf tenderness. Dorsalis pedis +2 bilat erally. NEUROLOGICAL: Patient is awake, alert and oriented x3. Cranial nerves 2 through 12 are grossly intact. Results CBC & Chem 7: 01/12/20 06:12 01/12/20 06:12 Labs: Abnormal Lab Results - Last 24 Hours (Table) 01/11/20 01/11/20 01/11/20 Range/Units 13:36 13:36 13:36 WBC 12.9 H (3.8-10.6) k/uL Hgb (13.0-17.5) gm/dL Neutrophils # 10.2 H (1.3-7.7) k/uL APTT (22.0-30.0) sec D-Dimer 1.79 H (<0.60) mg/L FEU Chloride (98-107) mmol/L Glucose 114 H (74-99) mg/dL POC Glucose (mg/dL) (75-99) mg/dL Calcium 8.3 L (8.4-10.2) mg/dL Creatine Kinase 26 L (55-170) U/L Troponin I (0.000-0.034) ng/mL Total Protein 5.7 L (6.3-8.2) g/dL Albumin 3.1 L (3.5-5.0) g/dL HDL Cholesterol (40-60) mg/dL 01/11/20 01/11/20 01/11/20 Range/Units 17:10 18:28 20:45 WBC (3.8-10.6) k/uL Hgb (13.0-17.5) gm/dL Neutrophils # (1.3-7.7) k/uL APTT (22.0-30.0) sec D-Dimer (<0.60) mg/L FEU Chloride (98-107) mmol/L Glucose (74-99) mg/dL POC Glucose (mg/dL) 127 H 141 H (75-99) mg/dL Calcium (8.4-10.2) mg/dL Creatine Kinase (55-170) U/L Troponin I 0.241 H* (0.000-0.034) ng/mL Total Protein (6.3-8.2) g/dL Albumin (3.5-5.0) g/dL HDL Cholesterol (40-60) mg/dL 01/11/20 01/12/20 01/12/20 Range/Units 21:12 01:50 05:21 WBC (3.8-10.6) k/uL Hgb 12.6 L (13.0-17.5) gm/dL Neutrophils # (1.3-7.7) k/uL APTT 31.1 H (22.0-30.0) sec D-Dimer (<0.60) mg/L FEU Chloride (98-107) mmol/L Glucose (74-99) mg/dL POC Glucose (mg/dL) (75-99) mg/dL Calcium (8.4-10.2) mg/dL Creatine Kinase (55-170) U/L Troponin I 2.570 H* (0.000-0.034) ng/mL Total Protein (6.3-8.2) g/dL Albumin (3.5-5.0) g/dL HDL Cholesterol (40-60) mg/dL 01/12/20 01/12/20 01/12/20 Range/Units 05:21 05:21 06:12 WBC 11.1 H (3.8-10.6) k/uL Hgb 12.6 L (13.0-17.5) gm/dL Neutrophils # (1.3-7.7) k/uL APTT 61.6 H (22.0-30.0) sec D-Dimer (<0.60) mg/L FEU Chloride (98-107) mmol/L Glucose (74-99) mg/dL POC Glucose (mg/dL) (75-99) mg/dL Calcium (8.4-10.2) mg/dL Creatine Kinase (55-170) U/L Troponin I (0.000-0.034) ng/mL Total Protein (6.3-8.2) g/dL Albumin (3.5-5.0) g/dL HDL Cholesterol 24 L (40-60) mg/dL 01/12/20 01/12/20 01/12/20 Range/Units 06:12 06:12 06:17 WBC (3.8-10.6) k/uL Hgb (13.0-17.5) gm/dL Neutrophils # (1.3-7.7) k/uL APTT (22.0-30.0) sec D-Dimer (<0.60) mg/L FEU Chloride 108 H (98-107) mmol/L Glucose 105 H (74-99) mg/dL POC Glucose (mg/dL) 115 H (75-99) mg/dL Calcium 8.2 L (8.4-10.2) mg/dL Creatine Kinase (55-170) U/L Troponin I 4.060 H* (0.000-0.034) ng/mL Total Protein (6.3-8.2) g/dL Albumin (3.5-5.0) g/dL HDL Cholesterol (40-60) mg/dL Thrombosis Risk Factor Assmnt - DVT/VTE Prophylaxis DVT/VTE Prophylaxis: Pharmacologic Prophylaxis ordered - Choose All That Apply Each Risk Factor Represents 2 Points: Age 61-74 years Thrombosis Risk Factor Assessment Total Risk Factor Score: 2 Thrombosis Risk Factor Assessment Level: Low Risk Assessment and Plan Plan: 1. Pulmonary embolism. Requested radiology review new CAT scan with those performed in May and June 2019. Patient had previous treatment for possible pulmonary embolism for approximately 3 months. This pulmonary embolism was questionable between Dr. Rascon and Dr. LEDY Ochoa. He was taken off anticoagulation by Dr. LEDY Ochoa at approximately 3 months. 2. Non-ST elevated myocardial infarction. Cardiology consult, heparin drip. Continue aspirin 81 mg daily, atorvastatin 80 mg at bedtime, Plavix 75 mg daily. Cardiology consult requested. 3. Chronic bullous emphysema, COPD stage III. 4. Chronic hypoxic respiratory failure. Continue oxygen therapy. 5. Diabetes mellitus type 2. Continue to hold metformin 500 mg twice daily, NovoLog scale before meals and at bedtime, check hemoglobin A1c. 6. Hyperlipidemia. Continue Lipitor. 7. Benign prostatic hypertrophy. Continue Proscar and Flomax. 8. Diabetic neuropathy. Continue gabapentin 600 mg twice daily. 9. Hypertension. Continue losartan 50 mg daily, Lopressor. 10. Gastroesophageal reflux disease. Continue omeprazole. 11. DVT prophylaxis. Heparin drip. Patient will be admitted to the hospital for a minimum of 2 night stay. Discharge plan: Return home Impression and plan of care have been directed as dictated by the signing physician. Cierra Lazo nurse practitioner acting as scribe for signing physician.
--- NOTE | 2020-01-12 15:15 | PTCA ---
PERCUTANEOUSTRANS CORORONARY ANGIOGRAPHY DATE OF SERVICE: 01/12/2020 PROCEDURE: 1. Coronary angiography. 2. PTCA and stenting of a totally occluded proximal RCA probably in-stent thrombosis. Previous PCI was performed on 12/30/2019. A drug-eluting stent was deployed and the rest of the vessel dilated. PERFORMED BY: Dr. Erasmo Ochoa. Moderate conscious sedation time was 51 minutes. CLINICAL INFORMATION: Mr. Deandre Duong is a 69-year-old gentleman with a significant COPD, bullous emphysema, who also has a history of prior pulmonary embolism. On 12/30/2019, he underwent a cardiac cath followed by a stenting of a more than 80% stenosis, circumflex marginal and a total occlusion of RCA was stented with 2.5 caliber 28 mm distally and 23 mm proximal drug-eluting stents. The patient came into the hospital with chest pain, had mild troponin elevation and also had a positive CT angiogram for pulmonary embolism. He was treated with heparin and because of a rising troponin, I recommended coronary angiography after due discussion with the patient and his . Risks, benefits, options, rationale were explained. PROCEDURE NOTE: Under local anesthesia and strict aseptic precautions, a 6-Vietnamese introducer was placed in the right femoral artery. Using standard Shannan catheters, I performed coronary angiography and noted that there was a total occlusion of the RCA which is a probably in-stent thrombosis off a recent PCI and proceeded to perform intervention in the same setting. LV gram was not performed and LV pressures were not checked. 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 This probably represents an in-stent thrombosis with total occlusion in the proximal portion. Very limited flow is noted distally and there are some collaterals from the left system. LEFT MAIN CORONARY ARTERY: Short patent disease-free vessel that bifurcates into LAD and circumflex. LEFT ANTERIOR DESCENDING CORONARY ARTERY: Fair caliber vessel extends along the anterior wall, gives off septal and diagonal branches. Mid LAD has about a 40% narrowing. It runs all the way to the apex, curves over the apex to supply the inferoapical portion of left ventricle. LEFT POSTERIOR CIRCUMFLEX CORONARY ARTERY: Nondominant vessel gives off a large circumflex that was stented 2 weeks ago and the stented segment is widely patent with good flow. No other significant disease in the circumflex system. FINAL IMPRESSION: This patient has total occlusion of the RCA at the site of previous stenting. This was a [employer] SALES [employer]ER stenting performed on 12/30/2019 and now it is totally occluded with limited antegrade flow. Left system is unchanged with 40% mid LAD disease and widely patent circumflex marginal that was also stented on 12/30/2019. RECOMMENDATIONS: I recommended PCI of RCA and proceeded to perform this in the same setting. Moderate conscious sedation time was 51 minutes. Patient was administered Versed. Oxygen saturation and EKG were monitored closely. PCI PROCEDURE DETAILS: I used a standard right Shannan guide catheter to cannulate the right coronary artery. A combination of a Super cross straight catheter and a J-tip 300 cm whisper wire, I crossed the lesion wire was kept distally. A 3.0 caliber 30 mm Trek balloon was used to dilate the total occlusion. Significant improvement was noted. After the initial dilatation, I noted that at the site of total occlusion, there was still some haziness and also a flap was still evident. This may have been the culprit. I went ahead and deployed an 18 mm long 3.0 caliber Xience stent at 12 atmospheres. There still seemed to be an area of haziness in the distal half of the stent. I used a 3.0 caliber NC Trek balloon of 20 mm length and gave a high-pressure inflation. With this, the vessel improved remarkably. There was excellent angiographic appearance and flow noted. Distally before bifurcation, there is about a 40% narrowing and this was not addressed. After taking the wire out, I obtained final angiograms in multiple projections and noted that the stented area was widely patent with good flow. I then took the sheath out and deployed an Angio-Seal to secure good hemostasis. The patient received Angiomax bolus and infusion throughout the procedure. Since he has a pulmonary embolism. I am going to place him on a combination of Plavix and Eliquis. He will be on Eliquis 5 mg b.i.d. and Plavix 600 mg was given here and I will place on 75 mg daily from tomorrow. The patient was sent to the room in stable condition. Results were discussed with the patient and family. Excellent angiographic result was achieved. Importance of dual antiplatelet therapy was emphasized and also explained to them about the bleeding risk as well. I expect patient to be discharged the next 48 hours. MMODL / IJN: [id number] /
[2020-01-12 16:50] LABS: Glucose,Whole Blood 81 mg/dL (75-99)
[2020-01-12 20:23] LABS: Glucose,Whole Blood 132 mg/dL (75-99)
[2020-01-12] MEDS: GABAPENTIN 400 MG CAP PO SCH (21:04)
[2020-01-12] MEDS: traZODone HCL 50 MG TAB PO SCH (21:04)
[2020-01-12] MEDS: ATORVASTATIN 80 MG TAB PO SCH (21:04)
[2020-01-12] MEDS: ALPRAZolam 0.25 MG TAB PO PRN (21:04)
[2020-01-13 06:26] LABS: Basophils % (A) 0 %; Eosinophils # (A) 0.4 k/uL (0-0.7); Eosinophils % (A) 4 %; HCT 39.9 % (39.0-53.0); HGB 12.6 gm/dL (13.0-17.5); Hypochromasia Slight; Lymphocytes # (A) 1.4 k/uL (1.0-4.8); Lymphocytes % (A) 15 %; MCH 28.2 pg (25.0-35.0); MCHC 31.5 g/dL (31.0-37.0); MCV 89.6 fL (80.0-100.0); Mean Platelet Volume 6.5; Monocytes # (A) 0.5 k/uL (0-1.0); Monocytes % (A) 6 %; Neutrophils # (A) 6.4 k/uL (1.3-7.7); Neutrophils % (A) 73 %; Platelet Count 313 k/uL (150-450); RBC 4.46 m/uL (4.30-5.90); WBC 8.8 k/uL (3.8-10.6)
[2020-01-13 06:26] LABS: Glucose,Whole Blood 112 mg/dL (75-99)
[2020-01-13] MEDS: HYDROcodone/APAP 5-325MG 1 EACH TAB PO SCH ×4 (06:41→21:13)
[2020-01-13 06:49] LABS: African American GFR (CKD) >90 (>60 ml/min/1.73 sqM); Anion Gap 4 mmol/L; Blood Urea Nitrogen 13 mg/dL (9-20); Calcium 8.3 mg/dL (8.4-10.2); Carbon Dioxide 27 mmol/L (22-30); Chloride 107 mmol/L (98-107); Glucose 110 mg/dL (74-99); Non-African American GFR(CKD) >90 (>60 ml/min/1.73 sqM); Potassium 4.2 mmol/L (3.5-5.1); Sodium 138 mmol/L (137-145)
[2020-01-13] MEDS: SYMBICORT 160-4.5 MCG INHALER INHALATION SCH ×2 (08:32→20:01)
[2020-01-13] MEDS: IPRATROPIUM 0.5 MG/2.5 ML NEBU INHALATION SCH ×4 (08:49→20:04)
[2020-01-13] MEDS: METOPROLOL TARTRATE 12.5 MG TAB PO SCH ×2 (09:26→21:01)
[2020-01-13] MEDS: ASPIRIN 81 MG PO SCH (09:26)
[2020-01-13] MEDS: TAMSULOSIN 0.4 MG CAP.ER.24H PO SCH ×2 (09:26→21:02)
[2020-01-13] MEDS: CLOPIDOGREL 75 MG TAB PO SCH (09:26)
[2020-01-13] MEDS: FUROSEMIDE 20 MG TAB PO SCH (09:27)
[2020-01-13] MEDS: GABAPENTIN 300 MG CAP PO SCH (09:27)
[2020-01-13] MEDS: APIXABAN 5 MG TAB PO SCH ×2 (09:27→21:02)
[2020-01-13] MEDS: PANTOPRAZOLE 40 MG TABLET PO SCH ×2 (09:27→21:02)
[2020-01-13] MEDS: INSULIN ASPART (NovoLOG) 100 UNIT/ML VIAL SQ SCH ×3 (09:27→22:03)
[2020-01-13] MEDS: ESCITALOPRAM 5 MG TAB PO SCH (09:28)
--- NOTE | 2020-01-13 09:44 | P.PN ---
Subjective Progress Note Date: 01/13/20 69-year-old male patient who follows with Dr. Rascon in the pulmonary clinic for history of chronic bullous emphysema, COPD stage III, with chronic hypoxemic respiratory failure, history of right-sided pneumothorax requiring Thoravent placement, and previous history of right lower lobe segmenta l and subsegmental branch emboli, and patient completed a course of Eliquis. Patient has advanced bullous emphysema with upper lobe predominance, right greater than left, and multiple exacerbations of COPD. Outpatient PFT showed FEV1 of 1.87 L or 56% of predicted, FVC of 3.72 L or 82% of predicted with total lung capacity of 409%, and RV/TLC of 136%, and moderately severe diffusion abnormality with DLVA of 56% of predicted. He has chronic bullous changes within the lungs with apical predominance and some limited amount of scarring in the lung bases, there was bronchial wall thickening no mediastinal lymphadenopathy. There was a liver lesion noted and MRI of the liver was suggested by the radiologist. Patient was referred to Dr. Calzada at the [facility] for lung reduction surgery and required preop cardiac clearance. 2 weeks ago patient had a heart catheterization with PTCA and stenting of a totally occluded proximal dominant RCA with 2 drug-eluting stents and a stenting of a nondominant mid circumflex coronary artery. Patient was discharged home on Brilinta and aspirin. On the 01/11/2020 patient presents to the emergency department with complaints of left upper chest pain, with radiation to his left arm. Patient denies any worsening dyspnea, he is chronically dyspneic on regular basis. Describes the pain as severe, 9 out of 10, with relief after nitroglycerin. No fevers, no chills, no cough, no hemoptysis, no diaphoresis. Have a blood pressure drop after nitroglycerin was administered and an ambulance. Recovered, initially EKG was negative for acute findings and initial troponin was within normal limits, d-dimer was elevated at the 1.79, and CTA chest was obtained showing acute segmental and subsegmental pulmonary emboli in the right lower lobe with abnormal right ventricular to left ventricular ratio and upper limits of normal size of the main pulmonary artery. Echocardiogram showed EF of 50-55%, moderate to severely enlarged right ventricle, and patient has been started on high intensity heparin infusion. Troponins were 0.241, 2.570, and 4.060, this morning patient seen on selective care unit, still having left upper chest discomfort 3 out of 10, but no shortness of breath, he is on oxygen intermittently, he was able to get up and take a shower, he is getting ready to be taken down for heart catheterization today. On 01/13/2020 patient seen in follow-up on selective care unit, he status post heart catheterization and PTCA and stenting of a totally occluded proximal RCA with probable in-stent thrombosis. Patient is currently on combination of Plavix and aspirin for dual antiplatelet therapy, and he has been transitioned to oral Eliquis for acute pulmonary emboli. Hemodynamically stable, no complaints of chest pain, no worsening shortness of breath, room air pulse ox 93%, no fever or chills, lung sounds are clear, no rhonchi, no wheezing, today's labs have been reviewed showing white blood cell count of 8.8, hemoglobin of 12 .6, electrolytes and renal profile were unremarkable. Objective - Vital Signs Vital signs: Vital Signs Temp 97.9 F 01/13/20 04:00 Pulse 84 01/13/20 04:00 Resp 18 01/13/20 04:00 BP 116/76 01/13/20 04:00 Pulse Ox 93 L 01/13/20 04:00 Intake & Output 01/12/20 01/13/20 01/13/20 18:59 06:59 18:59 Intake Total 3165 Output Total 1450 450 Balance 1715 -450 Weight 83.5 kg 84.1 kg Intake: IV 1040 Sodium Chloride 0.9% 1, 450 000 ml In Empty Bag 1 bag @ 1 ML/KG/HR 83.5 mls/hr IV .[id number] ONE Rx#: [id number] Oral 2125 Output: Urine 1450 450 Straight 1000 Other: Voiding Method Toilet Toilet # Voids 2 2 - Exam GENERAL EXAM: Alert, pleasant, 69-year-old white male, on room air, comfortable in no apparent distress. HEAD: Normocephalic/atraumatic. EYES: Normal reaction of pupils, equal size. Conjunctiva pink, sclera white. NOSE: Clear with pink turbinates. THROAT: No erythema or exudates. NECK: No masses, no JVD, no thyroid enlargement, no adenopathy. CHEST: No chest wall deformity. Symmetrical expansion. LUNGS: Equal air entry with no crackles, wheeze, rhonchi or dullness. CVS: Regular rate and rhythm, normal S1 and S2, no gallops, no murmurs, no rubs ABDOMEN: Soft, nontender. No hepatosplenomegaly, normal bowel sounds, no guarding or rigidity. EXTREMITIES: No clubbing, no edema, no cyanosis, 2+ pulses and upper and lower extremities. MUSCULOSKELETAL: Muscle strength and tone normal. SPINE: No scoliosis or deformity SKIN: No rashes CENTRAL NERVOUS SYSTEM: Alert and oriented -3. No focal deficits, tone is normal in all 4 extremities. PSYCHIATRIC: Alert and oriented -3. Appropriate affect. Intact judgment and insight. - Labs CBC & Chem 7: 01/13/20 05:35 01/13/20 05:35 Labs: Abnormal Lab Results - Last 24 Hours (Table) 01/12/20 01/12/20 01/13/20 Range/Units 12:48 20:22 05:35 Hgb 12.6 L (13.0-17.5) gm/dL Glucose (74-99) mg/dL POC Glucose (mg/dL) 105 H 132 H (75-99) mg/dL Calcium (8.4-10.2) mg/dL 01/13/20 01/13/20 Range/Units 05:35 06:24 Hgb (13.0-17.5) gm/dL Glucose 110 H (74-99) mg/dL POC Glucose (mg/dL) 112 H (75-99) mg/dL Calcium 8.3 L (8.4-10.2) mg/dL Assessment and Plan Plan: Assessment: #1. Acute chest pain in the left chest, with left arm radiation, positive troponins, patient is status post PTCA and stenting of in-stent thrombosis of right coronary artery #2. Right lower lobe segmental and subsegmental pulmonary emboli, acute. With echocardiogram showing moderate to severe enlargement of the right ventricle suggesting right ventricular strain. There was a positive troponin leak of 0.241, 2.570, and 4.060 #3. Recent PTCA and stenting of the circumflex and RCA 2 weeks ago, patient was on Brilinta and Aspirin #4. Advanced bullous emphysema, severe COPD, stage III, with FEV1 of 58% of predicted and patient was referred for lung reduction surgery at [facility] #5. Chronic hypoxic respiratory failure, wears oxygen as needed at home #6. Former smoker, carries a [id number] smoking history, currently in remission #7. Chronic scarring at the lung bases as seen on the CT of the chest #8. Previous history of pulmonary emboli in segmental and subsegmental branches of the right lower lobe and June 2019, and patient completed a course of Eliquis #9. Previous history of right pneumothorax in 2016 requiring Thoravent insertion #10. Multiple COPD exacerbations #11. Hypertension #12. Hyperlipidemia #13. Osteoarthritis #14. History of CVA #15. Liver hemangiomas Plan: Hemodynamically patient stable, no complex of chest pain, no pleuritic discomfort, no shortness of breath, patient is on room air, vital signs are stable, patient underwent PTCA and stenting of in-stent thrombosis of right c oronary artery yesterday on 01/12/2020. He has been transitioned to oral Eliquis, no acute events overnight, from pulmonary perspective patient came considered for discharge home once he is cleared by cardiology I performed a history & physical examination of the patient and discussed their management with my nurse practitioner, Teetee Mathew. I reviewed the nurse practitioner's note and agree with the documented findings and plan of care. Lung sounds are positive for diminished breath sounds. The findings and the impression was discussed with the patient. I attest to the documentation by the nurse practitioner. Time with Patient: Less than 30
[2020-01-13 11:42] LABS: Glucose,Whole Blood 125 mg/dL (75-99)
--- NOTE | 2020-01-13 12:55 | P.PN ---
Subjective Progress Note Date: 01/13/20 This is a 69-year-old gentleman who has advanced COPD and emphysema and was supposed to have a lung reduction surgery, in the preoperative evaluation, patient was found to have an abnormal stress test and underwent a cardiac catheterization, underwent stenting of the mid circumflex as well as a totally occluded proximal dominant right coronary artery and overall was doing well. He presented to the hospital on this admission with symptoms of chest discomfort on the left side of his chest radiating to his arm with some mild associated shortness of breath. In the emergency room the patient had been seen and evaluated, he had mild elevation in d-dimer and for this reason a CAT scan was performed which revealed a possible pulmonary embolism that was noticed to be on the right side. Patient also had significant abnormality in troponin and for this reason was recommended to be taken back to the cardiac catheterization lab. Patient underwent PTCA and stenting of a totally occluded proximal RCA, p robably in-stent thrombosis. Patient was seen and examined this morning and is feeling quite well, he denies any chest discomfort and is breathing is stable, right groin is soft with no evidence of any hematoma. Blood pressure this morning 116/76 with a heart rate of 80, 93% on room air. White blood cell count 8.8, hemoglobin 12.6, platelet count 313. Sodium 138, potassium 4.2, BUN 13 and creatinine 0.7. Objective - Vital Signs Vital signs: Vital Signs Temp 97.9 F 01/13/20 04:00 Pulse 84 01/13/20 04:00 Resp 18 01/13/20 04:00 BP 116/76 01/13/20 04:00 Pulse Ox 93 L 01/13/20 04:00 Intake & Output 01/12/20 01/13/20 01/13/20 18:59 06:59 18:59 Intake Total 3165 240 Output Total 1450 450 Balance 1715 -450 240 Weight 83.5 kg 84.1 kg Intake: IV 1040 Sodium Chloride 0.9% 1, 450 000 ml In Empty Bag 1 bag @ 1 ML/KG/HR 83.5 mls/hr IV .[id number] ONE Rx#: [id number] Oral 2125 240 Output: Urine 1450 450 Straight 1000 Other: Voiding Method Toilet Toilet # Voids 2 2 - Exam GENERAL EXAM: Alert, pleasant, 69-year-old white male, on room air, comfortable in no apparent distress. HEAD: Normocephalic/atraumatic. EYES: Normal reaction of pupils, equal size. Conjunctiva pink, sclera white. NOSE: Clear with pink turbinates. THROAT: No erythema or exudates. NECK: No masses, no JVD, no thyroid enlargement, no adenopathy. CHEST: No chest wall deformity. Symmetrical expansion. LUNGS: Equal air entry with no crackles, wheeze, rhonchi or dullness. CVS: Regular rate and rhythm, normal S1 and S2, no gallops, no murmurs, no rubs ABDOMEN: Soft, nontender. No hepatosplenomegaly, normal bowel sounds, no guarding or rigidity. EXTREMITIES: No clubbing, no edema, no cyanosis, 2+ pulses and upper and lower extremities. Right groin soft, no evidence of any hematoma. MUSCULOSKELETAL: Muscle strength and tone normal. SPINE: No scoliosis or deformity SKIN: No rashes CENTRAL NERVOUS SYSTEM: Alert and oriented -3. No focal deficits, tone is normal in all 4 extremities. PSYCHIATRIC: Alert and oriented -3. Appropriate affect. Intact judgment and insight. - Labs CBC & Chem 7: 01/13/20 05:35 01/13/20 05:35 Labs: Abnormal Lab Results - Last 24 Hours (Table) 01/12/20 01/12/20 01/13/20 Range/Units 12:48 20:22 05:35 Hgb 12.6 L (13.0-17.5) gm/dL Glucose (74-99) mg/dL POC Glucose (mg/dL) 105 H 132 H (75-99) mg/dL Calcium (8.4-10.2) mg/dL 01/13/20 01/13/20 01/13/20 Range/Units 05:35 06:24 11:39 Hgb (13.0-17.5) gm/dL Glucose 110 H (74-99) mg/dL POC Glucose (mg/dL) 112 H 125 H (75-99) mg/dL Calcium 8.3 L (8.4-10.2) mg/dL Assessment and Plan Plan: Assessment and plan: #1. Acute coronary syndrome, status post angioplasty and stenting of a totally occluded proximal RCA, likely secondary to in-stent thrombosis #2. Right lower lobe segmental and subsegmental pulmonary emboli, acute. #3. Recent PTCA and stenting of the circumflex and RCA 2 weeks ago, patient was on Brilinta and Aspirin #4. Advanced bullous emphysema, severe COPD #5. Chronic hypoxic respiratory failure, wears oxygen as needed at home #6. Former smoker, carries a [id number] smoking history, currently in remission #7. Chronic scarring at the lung bases as seen on the CT of the chest #8. Previous history of pulmonary emboli in segmental and subsegmental branches of the right lower lobe and June 2019, and patient completed a course of Eliquis #9. Previous history of right pneumothorax in 2016 requiring Thoravent insertion #10. Multiple COPD exacerbations #11. Hypertension #12. Hyperlipidemia #13. Osteoarthritis #14. History of CVA #15. Liver hemangiomas Plan From cardiology's perspective, we will continue the patient on Eliquis 5 mg one tablet by mouth twice a day, aspirin 81 mg daily, and Plavix 75 mg daily, after 2 weeks the aspirin will be discontinued and patient will be continued on Eliquis and Plavix. Plan for discharge home in 24 hours. DNP note has been reviewed, I agree with a documented findings and plan of care. Patient was seen and examined.
--- NOTE | 2020-01-13 12:55 | P.PN ---
Subjective Progress Note Date: 01/13/20 This is a 69-year-old male patient of Abiodun Matthews and when necessary he with past history of chronic bullous emphysema, COPD stage III, chronic hypoxic respiratory failure, right sided pneumothorax requiring Thora vent placement, history of large right lower lobe segmental and subsegmental branch emboli diagnosed last summer. Patient was on eliquis for several months but did not complete a full course. It was indeterminate whether this was truly a PE. Patient states he is scheduled for a lung reduction surgery at [facility] and required cardiac clearance. He underwent a heart catheterization, PTCA and stenting with Dr. LEDY Ochoa of a totally occluded proximal dominant RCA with 2 drug-eluting stents and a stenting of a nondominant mid circumflex coronary artery. Patient was started on [place] diet at that time. Patient states that as of yesterday he developed shortness of breath which she normally has some shortness of breath with this is more severe. He also had some pain in his left arm on the inside and left-sided chest pain. By the time he came to the ER the pain never went away with medication. He took one nitroglycerin at home and one by EMS had a drop in his blood pressure. Nitropaste was applied in the ER but this was later removed due to low blood pressure. Patient states he was a little lightheaded, no dizziness. He denies any abdominal pain, no nausea or vomiting, no blood or tarry stools. His EKG was negative for acute findings, troponin negative, d-dimer 1.79, CT of the chest showed acute segmental and subsegmental pulmonary emboli in the right lower lobe with abnormal right ventricular to left ventricular ray showing upper limits of normal size of the main pulmonary artery. Echocardiogram showed EF of 50-55%, moderate to severely enlarged right ventricle. Troponins were 0.241, 2.570, and 4.060 and patient started on heparin drip. Consults in place with cardiology and pulmonary medicine. 01/12: Yesterday, patient underwent heart catheterization and PTCA and stenting of a totally occluded proximal RCA probable in-stent thrombosis. Patient states he is pain-free today. He denies any shortness of breath. Patient has been afebrile, pulse ox 93% on room air, blood pressure 116/76, heart rate 84. CBC is unremarkable, electrolytes and renal function normal, blood sugars running between 110 and 132. Anticipate possible discharge tomorrow. Objective - Vital Signs Vital signs: Vital Signs Temp 97.9 F 01/13/20 04:00 Pulse 84 01/13/20 04:00 Resp 18 01/13/20 04:00 BP 116/76 01/13/20 04:00 Pulse Ox 93 L 01/13/20 04:00 Intake & Output 01/12/20 01/13/20 01/13/20 18:59 06:59 18:59 Intake Total 3165 240 Output Total 1450 450 Balance 1715 -450 240 Weight 83.5 kg 84.1 kg Intake: IV 1040 Sodium Chloride 0.9% 1, 450 000 ml In Empty Bag 1 bag @ 1 ML/KG/HR 83.5 mls/hr IV .[id number] ONE Rx#: [id number] Oral 2125 240 Output: Urine 1450 450 Straight 1000 Other: Voiding Method Toilet Toilet # Voids 2 2 - Exam Review of Systems Constitutional: Denies chills, Denies fatigue, Denies fever, Denies lethargy, Denies malaise, Denies poor appetite, Denies weight loss Eyes: denies blurred vision, denies pain Ears, nose, mouth and throat: Denies dysphagia, Denies nasal congestion, Denies nasal discharge, Denies sore throat, Denies vertigo Cardiovascular: Denies chest pain, denies dyspnea on exertion, denies lightheadedness, denies shortness of breath, Denies palpitations, Denies syncope Respiratory: denies dyspnea, Denies cough, Denies excessive sputum, Denies hemoptysis Gastrointestinal: Denies abdominal pain, Denies BRBPR, Denies coffee ground emesis, Denies diarrhea, Denies hematemesis, Denies hematochezia, Denies loss of appetite, Denies melena, Denies nausea, Denies vomiting Genitourinary: Denies dysuria, Denies urinary retention Musculoskeletal: Denies frequent falls, Denies gait dysfunction, Denies muscle weakness, Denies myalgias Integumentary: Denies pruritus, Denies rash, Denies wounds Neurological: Denies numbness, Denies weakness Psychiatric: Denies anxiety, Denies depression Endocrine: Denies fatigue, Denies weight change Physical examination Gen: This is a 69-year-old male. Patient is resting on the edge of e bed and ambulating in his room. He appears to be comfortable and in no acute distress. No respiratory distress is noted. HEENT: Head is atraumatic, normocephalic. Pupils equal, round. Sclerae is a nicteric. NECK: Supple. No JVD. No lymphadenopathy. No thyromegaly. LUNGS: Few expiratory wheezes, diminished. No intercostal retractions. HEART: Regular rate and rhythm. no murmur. ABDOMEN: Soft. Bowel sounds are present. No masses. No tenderness. EXTREMITIES: No pedal edema. No calf tenderness. Dorsalis pedis +2 bilaterally. NEUROLOGICAL: Patient is awake, alert and oriented x3. Cranial nerves 2 through 12 are grossly intact. - Labs CBC & Chem 7: 01/13/20 05:35 01/13/20 05:35 Labs: Abnormal Lab Results - Last 24 Hours (Table) 01/12/20 01/12/20 01/13/20 Range/Units 12:48 20:22 05:35 Hgb 12.6 L (13.0-17.5) gm/dL Glucose (74-99) mg/dL POC Glucose (mg/dL) 105 H 132 H (75-99) mg/dL Calcium (8.4-10.2) mg/dL 01/13/20 01/13/20 Range/Units 05:35 06:24 Hgb (13.0-17.5) gm/dL Glucose 110 H (74-99) mg/dL POC Glucose (mg/dL) 112 H (75-99) mg/dL Calcium 8.3 L (8.4-10.2) mg/dL Assessment and Plan Plan: 1. Pulmonary embolism. Requested radiology review new CAT scan with those performed in May and June 2019. Patient had previous treatment for possible pulmonary embolism for approximately 3 months. This pulmonary embolism was questionable between Dr. Rascon and Dr. LEDY Ochoa. He was taken off anticoagulation by Dr. LEDY Ochoa at approximately 3 months. Continue eliquis 5 mg twice daily 2. Non-ST elevated myocardial infarction status post heart cath and PTCA. Cardiology consult appreciated. Continue aspirin 81 mg daily, atorvastatin 80 mg at bedtime, Plavix 75 mg daily, Lopressor 25 mg twice daily. 3. Chronic bullous emphysema, COPD stage III. 4. Chronic hypoxic respiratory failure. Continue oxygen therapy. 5. Diabetes mellitus type 2. Continue to hold metformin 500 mg twice daily, NovoLog scale before meals and at bedtime, check hemoglobin A1c. 6. Hyperlipidemia. Continue Lipitor. 7. Benign prostatic hypertrophy. Continue Proscar and Flomax. 8. Diabetic neuropathy. Continue gabapentin 600 mg twice daily. 9. Hypertension. Continue losartan 50 mg daily, Lopressor. 10. Gastroesophageal reflux disease. Continue omeprazole. 11. DVT prophylaxis. Eliquis. Discharge plan: Return home Impression and plan of care have been directed as dictated by the signing physician. Cierra Lazo nurse practitioner acting as scribe for signing physician.
[2020-01-13 16:53] LABS: Glucose,Whole Blood 123 mg/dL (75-99)
[2020-01-13] MEDS: ATORVASTATIN 80 MG TAB PO SCH (21:02)
[2020-01-13] MEDS: GABAPENTIN 400 MG CAP PO SCH (21:02)
[2020-01-13] MEDS: traZODone HCL 50 MG TAB PO SCH (21:02)
[2020-01-13] MEDS: ALPRAZolam 0.25 MG TAB PO PRN (21:16)
[2020-01-13 21:44] LABS: Glucose,Whole Blood 112 mg/dL (75-99)
[2020-01-14] MEDS: MORPHINE SULFATE 2 MG/ML SYRINGE IVP PRN (06:11)
[2020-01-14 06:37] LABS: Glucose,Whole Blood 126 mg/dL (75-99)
[2020-01-14] MEDS: INSULIN ASPART (NovoLOG) 100 UNIT/ML VIAL SQ SCH (06:46)
[2020-01-14] MEDS: SODIUM CHLORIDE 0.9% 1,000 ML IV SCH (07:11)
[2020-01-14 07:44] LABS: Basophils % (A) 1 %; Eosinophils # (A) 0.3 k/uL (0-0.7); Eosinophils % (A) 4 %; HGB 12.4 gm/dL (13.0-17.5); Lymphocytes # (A) 1.3 k/uL (1.0-4.8); Lymphocytes % (A) 17 %; MCH 27.9 pg (25.0-35.0); MCHC 30.9 g/dL (31.0-37.0); MCV 90.2 fL (80.0-100.0); Mean Platelet Volume 6.6; Monocytes # (A) 0.6 k/uL (0-1.0); Monocytes % (A) 8 %; Neutrophils # (A) 5.4 k/uL (1.3-7.7); Neutrophils % (A) 69 %; Platelet Count 285 k/uL (150-450); RBC 4.44 m/uL (4.30-5.90); RDW 14.1 % (11.5-15.5); WBC 7.8 k/uL (3.8-10.6)
[2020-01-14] MEDS: SYMBICORT 160-4.5 MCG INHALER INHALATION SCH (07:48)
[2020-01-14] MEDS: IPRATROPIUM 0.5 MG/2.5 ML NEBU INHALATION SCH ×2 (07:49→11:31)
[2020-01-14] MEDS: HYDROcodone/APAP 5-325MG 1 EACH TAB PO SCH (08:19)
[2020-01-14] MEDS: FUROSEMIDE 20 MG TAB PO SCH (08:19)
[2020-01-14] MEDS: CLOPIDOGREL 75 MG TAB PO SCH (08:19)
[2020-01-14] MEDS: GABAPENTIN 300 MG CAP PO SCH (08:19)
[2020-01-14] MEDS: METOPROLOL TARTRATE 12.5 MG TAB PO SCH (08:19)
[2020-01-14] MEDS: PANTOPRAZOLE 40 MG TABLET PO SCH (08:19)
[2020-01-14] MEDS: TAMSULOSIN 0.4 MG CAP.ER.24H PO SCH (08:19)
[2020-01-14] MEDS: ASPIRIN 81 MG PO SCH (08:19)
[2020-01-14] MEDS: APIXABAN 5 MG TAB PO SCH (08:20)
[2020-01-14 08:24] VITALS: PULSE 71; RESP 16; TEMP 97.9
--- NOTE | 2020-01-14 11:29 | P.PN ---
Subjective Progress Note Date: 01/14/20 This is a 69-year-old gentleman who has advanced COPD and emphysema and was supposed to have a lung reduction surgery, in the preoperative evaluation, patient was found to have an abnormal stress test and underwent a cardiac catheterization, underwent stenting of the mid circumflex as well as a totally occluded proximal dominant right coronary artery and overall was doing well. He presented to the hospital on this admission with symptoms of chest discomfort on the left side of his chest radiating to his arm with some mild associated shortness of breath. In the emergency room the patient had been seen and evaluated, he had mild elevation in d-dimer and for this reason a CAT scan was performed which revealed a possible pulmonary embolism that was noticed to be on the right side. Patient also had significant abnormality in troponin and for this reason was recommended to be taken back to the cardiac catheterization lab. Patient underwent PTCA and stenting of a totally occluded proximal RCA, p robably in-stent thrombosis. Patient was seen and examined this morning and is feeling quite well, he denies any chest discomfort and is breathing is stable, right groin is soft with no evidence of any hematoma. Blood pressure this morning 116/76 with a heart rate of 80, 93% on room air. White blood cell count 8.8, hemoglobin 12.6, platelet count 313. Sodium 138, potassium 4.2, BUN 13 and creatinine 0.7. 01/14/2020 Patient seen and examined this morning, doing well, denies any chest pain or difficulty in breathing. Hemodynamically stable. Objective - Vital Signs Vital signs: Vital Signs Temp 97.9 F 01/14/20 08:00 Pulse 71 01/14/20 08:00 Resp 16 01/14/20 08:00 BP 132/79 01/14/20 08:00 Pulse Ox 92 L 01/14/20 08:00 Intake & Output 01/13/20 01/14/20 01/14/20 18:59 06:59 18:59 Intake Total 1200 1020 480 Output Total 375 Balance 1200 645 480 Weight 81.5 kg Intake: Oral 1200 1020 480 Output: Urine 375 Other: Voiding Method Toilet Toilet # Voids 2 - Exam GENERAL EXAM: Alert, pleasant, 69-year-old white male, on room air, comfortable in no apparent distress. HEAD: Normocephalic/atraumatic. EYES: Normal reaction of pupils, equal size. Conjunctiva pink, sclera white. NOSE: Clear with pink turbinates. THROAT: No erythema or exudates. NECK: No masses, no JVD, no thyroid enlargement, no adenopathy. CHEST: No chest wall deformity. Symmetrical expansion. LUNGS: Equal air entry with no crackles, wheeze, rhonchi or dullness. CVS: Regular rate and rhythm, normal S1 and S2, no gallops, no murmurs, no rubs ABDOMEN: Soft, nontender. No hepatosplenomegaly, normal bowel sounds, no guarding or rigidity. EXTREMITIES: No clubbing, no edema, no cyanosis, 2+ pulses and upper and lower extremities. Right groin soft, no evidence of any hematoma. MUSCULOSKELETAL: Muscle strength and tone normal. SPINE: No scoliosis or deformity SKIN: No rashes CENTRAL NERVOUS SYSTEM: Alert and oriented -3. No focal deficits, tone is normal in all 4 extremities. PSYCHIATRIC: Alert and oriented -3. Appropriate affect. Intact judgment and insight. - Labs CBC & Chem 7: 01/14/20 06:32 01/13/20 05:35 Labs: Abnormal Lab Results - Last 24 Hours (Table) 01/13/20 01/13/20 01/13/20 Range/Units 11:39 16:28 21:43 Hgb (13.0-17.5) gm/dL MCHC (31.0-37.0) g/dL POC Glucose (mg/dL) 125 H 123 H 112 H (75-99) mg/dL 01/14/20 01/14/20 Range/Units 06:32 06:36 Hgb 12.4 L (13.0-17.5) gm/dL MCHC 30.9 L (31.0-37.0) g/dL POC Glucose (mg/dL) 126 H (75-99) mg/dL Assessment and Plan Plan: Assessment and plan: #1. Acute coronary syndrome, status post angioplasty and stenting of a totally occluded proximal RCA, likely secondary to in-stent thrombosis #2. Right lower lobe segmental and subsegmental pulmonary emboli, acute. #3. Recent PTCA and stenting of the circumflex and RCA 2 weeks ago, patient was on Brilinta and Aspirin #4. Advanced bullous emphysema, severe COPD #5. Chronic hypoxic respiratory failure, wears oxygen as needed at home #6. Former smoker, carries a [id number] smoking history, currently in remission #7. Chronic scarring at the lung bases as seen on the CT of the chest #8. Previous history of pulmonary emboli in segmental and subsegmental branches of the right lower lobe and June 2019, and patient completed a course of Eliquis #9. Previous history of right pneumothorax in 2016 requiring Thoravent insertion #10. Multiple COPD exacerbations #11. Hypertension #12. Hyperlipidemia #13. Osteoarthritis #14. History of CVA #15. Liver hemangiomas Plan From cardiology's perspective, we will continue the patient on Eliquis 5 mg one tablet by mouth twice a day, aspirin 81 mg daily, and Plavix 75 mg daily, after 2 weeks the aspirin will be discontinued and patient will be continued on Eliquis and Plavix. He may be able to be discharged home from our perspective, follow-up appointment in the office post discharge. DNP note has been reviewed, I agree with a documented findings and plan of care. Patient was seen and examined.
--- NOTE | 2020-01-14 12:04 | P.DS ---
Providers Date of admission: 01/12/20 11:26 Expected date of discharge: 01/14/20 Attending physician: Kenny Rashid MD Consults: 01/11/20 15:48 Consult Physician Urgent Consulting Provider: Dolores Ochoa Consult Reason/Comments: Chest pain Do you want consulting provider notified?: Already Contacted 01/11/20 16:40 Consult Physician Urgent Consulting Provider: Maximo Rascon Consult Reason/Comments: Pulmonary embolism Do you want consulting provider notified?: Yes 01/12/20 12:14 Consult Physician Routine Consulting Provider: [facility] Consult Reason/Comments: Post Interventional patient Do you want consulting provider notified?: Already Contacted Primary care physician: [facility] Course: This is a 69-year-old male patient of Abiodun Matthews and when necessary he with past history of chronic bullous emphysema, COPD stage III, chronic hypoxic respiratory failure, right sided pneumothorax requiring Thora vent placement, history of large right lower lobe segmental and subsegmental branch emboli diagnosed last summer. Patient was on eliquis for several months but did not complete a full course. It was indeterminate whether this was truly a PE. Patient states he is scheduled for a lung reduction surgery at [facility] and required cardiac clearance. He underwent a heart catheterization, PTCA and stenting with Dr. LEDY Ochoa of a totally occluded proximal dominant RCA with 2 drug-eluting stents and a stenting of a nondominant mid circumflex coronary artery. Patient was started on [place] diet at that time. Patient states that as of yesterday he developed shortness of breath which she normally has some shortness of breath with this is more severe. He also had some pain in his left arm on the inside and left-sided chest pain. By the time he came to the ER the pain never went away with medication. He took one nitroglycerin at home and one by EMS had a drop in his blood pressure. Nitropaste was applied in the ER but this was later removed due to low blood pressure. Patient states he was a little lightheaded, no dizziness. He denies any abdominal pain, no nausea or vomiting, no blood or tarry stools. His EKG was negative for acute findings, troponin negative, d-dimer 1.79, CT of the chest showed acute segmental and subsegmental pulmonary emboli in the right lower lobe with abnormal right ventricular to left ventricular ray showing upper limits of normal size of the main pulmonary artery. Echocardiogram showed EF of 50-55%, moderate to severely enlarged right ventricle. Troponins were 0.241, 2.570, and 4.060 and patient started on heparin drip. Consults in place with cardiology and pulmonary medicine. 01/12: Yesterday, patient underwent heart catheterization and PTCA and stenting of a totally occluded proximal RCA probable in-stent thrombosis. Patient states he is pain-free today. He denies any shortness of breath. Patient has been afebrile, pulse ox 93% on room air, blood pressure 116/76, heart rate 84. CBC is unremarkable, electrolytes and renal function normal, blood sugars running between 110 and 132. Anticipate possible discharge tomorrow. 01/13: Patient denies having any chest pain, shortness of breath, lightheadedness or dizziness. He has been ambulatory without any difficulties. Cardiology has evaluated the patient cleared him for discharge with recommendations for triple therapy with eliquis, baby aspirin for 2 weeks and Plavix. Patient will be discharged home today in stable condition. Discharge diagnoses: 1. Pulmonary embolism. 2. Non-ST elevated myocardial infarction status post heart cath and PTCA. 3. Chronic bullous emphysema, COPD stage III. 4. Chronic hypoxic respiratory failure. 5. Diabetes mellitus type 2. 6. Hyperlipidemia. 7. Benign prostatic hypertrophy. 8. Diabetic neuropathy. 9. Hypertension. 10. Gastroesophageal reflux disease. Discharge plan: Return home Impression and plan of care have been directed as dictated by the signing physician. Cierra Lazo nurse practitioner acting as scribe for signing physician. Patient Condition at Discharge: Good Plan - Discharge Summary Discharge Rx Participant: No New Discharge Prescriptions: New Apixaban [Eliquis] 5 mg PO BID #60 tab Clopidogrel [Plavix] 75 mg PO DAILY #30 tab Continue Gabapentin [Neurontin] 600 mg PO QAM Finasteride [Proscar] 5 mg PO HS traZODone HCL 150 mg PO HS Gabapentin 1,200 mg PO HS Albuterol Nebulized [Ventolin Nebulized] 2.5 mg INHALATION RT-QID PRN PRN Reason: Shortness Of Breath Escitalopram [Lexapro] 5 mg PO DAILY #30 tablet ALPRAZolam [Xanax] 0.5 mg PO HS Tiotropium 18 Mcg/Puff [Spiriva] 1 puff INHALATION RT-BID Budesonide-Formot 160-4.5 Mcg [Symbicort 160-4.5 Mcg Inhaler] 2 puff INHALATION RT-BID Omeprazole Magnesium [PriLOSEC OTC] 20 mg PO BID HYDROcodone/APAP 5-325MG [Seward 5-325] 2 tab PO TID Furosemide [Lasix] 20 mg PO DAILY #90 tab Atorvastatin [Lipitor] 80 mg PO HS #90 tab Metoprolol Tartrate [Lopressor] 12.5 mg PO BID #90 tab Nitroglycerin Sl Tabs [Nitrostat] 0.4 mg SUBLINGUAL Q5M PRN #25 tab PRN Reason: Chest Pain Tamsulosin HCl [Flomax] 0.4 mg PO BID Aspirin 81 mg PO DAILY #90 chew metFORMIN HCL [Glucophage] 500 mg PO BID #0 Discontinued Ticagrelor [Brilinta] 90 mg PO BID #60 tab Losartan [Cozaar] 50 mg PO DAILY #90 tab Discharge Medication List Finasteride [Proscar] 5 mg PO HS 10/21/14 [History] Gabapentin [Neurontin] 600 mg PO QAM 10/21/14 [History] Gabapentin 1,200 mg PO HS 04/09/16 [History] traZODone HCL 150 mg PO HS 04/09/16 [History] Albuterol Nebulized [Ventolin Nebulized] 2.5 mg INHALATION RT-QID PRN 06/12/19 [History] Escitalopram [Lexapro] 5 mg PO DAILY #30 tablet 06/15/19 [Rx] ALPRAZolam [Xanax] 0.5 mg PO HS 07/13/19 [History] Budesonide-Formot 160-4.5 Mcg [Symbicort 160-4.5 Mcg Inhaler] 2 puff INHALATION RT-BID 12/29/19 [History] HYDROcodone/APAP 5-325MG [Seward 5-325] 2 tab PO TID 12/29/19 [History] Omeprazole Magnesium [PriLOSEC OTC] 20 mg PO BID 12/29/19 [History] Tiotropium 18 Mcg/Puff [Spiriva] 1 puff INHALATION RT-BID 12/29/19 [History] Atorvastatin [Lipitor] 80 mg PO HS #90 tab 03/05/20 [Rx] Furosemide [Lasix] 20 mg PO DAILY #90 tab 12/31/19 [Rx] Metoprolol Tartrate [Lopressor] 12.5 mg PO BID #90 tab 12/31/19 [Rx] Nitroglycerin Sl Tabs [Nitrostat] 0.4 mg SUBLINGUAL Q5M PRN #25 tab 12/31/19 [Rx] Tamsulosin HCl [Flomax] 0.4 mg PO BID 01/12/20 [History] Apixaban [Eliquis] 5 mg PO BID #60 tab 01/14/20 [Rx] Aspirin 81 mg PO DAILY #90 chew 01/14/20 [Rx] Clopidogrel [Plavix] 75 mg PO DAILY #30 tab 01/14/20 [Rx] metFORMIN HCL [Glucophage] 500 mg PO BID #0 01/14/20 [Rx] Follow up Appointment(s)/Referral(s): Dolores Ochoa MD [STAFF PHYSICIAN] - 01/19/20 2:15 pm Rehab [facility],Cardiac [NON-STAFF] - (After discharge, you will follow-up with your military science teacher. Once you have obtained a prescription for cardiac rehab, please call [phone] to set up an evaluation.) Dyana Giordano MD [Primary Care Provider] - 1 Week (Office will call with a follow up appointment. ) Maximo Rascon MD [STAFF PHYSICIAN] - 01/22/20 2:15 pm Patient Instructions/Handouts: *Surgery [facility] - After Heart Catheterization - [employer] Instructions, Pulmonary Embolism (DC), Heart Healthy Diet (DC), Safe Use of Anticoagulants (DC) Activity/Diet/Wound Care/Special Instructions: Tiajuliokev copay is $45 CARDIAC CATH 1. Support your puncture site by applying firm, steady pressure whenever you cough, laugh, sneeze or bear down to have a bowel movement (2-day restriction). 2. Watch for any excessive bruising, active bleeding, a firm knot forming under your skin, extreme tenderness and signs of infection (redness, swelling, fever). 3. Shower daily, do not soak puncture in a tub bath, jacuzzi, pool, morataya etc. for 1 week. This is to prevent risk of infection. 4. Drink plenty of fluids the day of and day after your procedure to flush contrast dye out of your kidneys. 5. Take all medications as directed. Never stop any new medication without your physicians OK. 6. No driving for 2 days after procedure. 7. 10- pound weight lifting restriction for 1 week. 8. Low sodium/low fat diet. 9. Activity limited until follow up appointment with your military science teacher. In case of any problems, please call [facility] [place] @ [phone]. Discharge Disposition: HOME SELF-CARE
[2020-01-14 12:15] LABS: Glucose,Whole Blood 133 mg/dL (75-99)
--- NOTE | 2020-01-14 13:57 | CDI ---
Documentation Clarification Form Date: 01/14/2020 01:17:13 PM From: Diane Tyler RN CCDS Admit Date: 01/12/2020 11:26:00 AM Patient Name: Deandre Duong Visit Number: [id number] Discharge Date: 01/14/2020 01:15:00 PM ATTENTION: The Clinical Documentation Specialists (CDI) and [facility] Coding Staff appreciate your assistance in clarifying documentation. Please respond to the clarification below the line at the bottom and electronically sign. The CDI & [facility] Coding staff will review the response and follow-up if needed. Please note: Queries are made part of the Legal Health Record. If you have any questions, please contact the author of this message via ITS. Dr. Clark Gastelum, With echocardiogram showing moderate to severe enlargement of the right ventricle suggesting right ventricular strain. Is documented in the pulmonary Consult and in Progress note 01/12 History/Risk Factors: 69-year-old male presents to the ED via EMS with chest pain midsternal that radiates down his left arm for an hour prior to arrival. Medical History recent cardiac stenting and PTCA, Pulmonary Embolus right lower lobe May and June 2019, HTN and CHF Clinical Indicators: Labs: 331/6 D dimer 1.79, Troponin <0.012, 0.241, 2.570, 4.060 Echo results: 01/10 There is moderate concentric left ventricular hypertrophy. Overall left ventricular systolic function is low normal with, an EF between 50-55% The right ventricle is moderate to severely enlarged. There is no pericardial effusion CTA 01/10 Acute segmental and subsegmental pulmonary emboli to the right lower lobe. Equivocal findings of right heart strain as there is an abnormal right ventricular to left ventricular ratio and upper limits of normal size of the main pulmonary artery however clot burden is small and there is no reflux of contrast into the inferior vena cava and hepatic veins. Treatment: 01/10 Heparin Ivpb d/c 01/10, PTCA and stenting of proximal RCA of in stent thrombosis, 01/11 Plavix po daily, Lasix po daily Clinical significance of diagnostic testing and treatment CANNOT be assumed or coded without physician documentation of significance if any. Please clarify moderate to severe enlargement of the right ventricle suggesting right ventricular strain. Acute Cor pulmonale due to please specify Other, please specify Unable to determine (Last Revision: July 2017) MTDD
[2020-01-14 14:05] VITALS: BP 113/82
--- NOTE | 2020-01-15 09:28 | CDI ---
Documentation Clarification Form Date: 01/14/2020 01:17:13 PM From: Diane Tyler RN CCDS Admit Date: 01/12/2020 11:26:00 AM Patient Name: Deandre Duong Visit Number: [id number] Discharge Date: 01/14/2020 01:15:00 PM ATTENTION: The Clinical Documentation Specialists (CDI) and [facility] Coding Staff appreciate your assistance in clarifying documentation. Please respond to the clarification below the line at the bottom and electronically sign. The CDI & [facility] Coding staff will review the response and follow-up if needed. Please note: Queries are made part of the Legal Health Record. If you have any questions, please contact the author of this message via ITS. Dr. Clark Gastelum, With echocardiogram showing moderate to severe enlargement of the right ventricle suggesting right ventricular strain. Is documented in the pulmonary Consult and in Progress note 01/12 History/Risk Factors: 69-year-old male presents to the ED via EMS with chest pain midsternal that radiates down his left arm for an hour prior to arrival. Medical History recent cardiac stenting and PTCA, Pulmonary Embolus right lower lobe May and June 2019, HTN and CHF Clinical Indicators: Labs: 331/6 D dimer 1.79, Troponin <0.012, 0.241, 2.570, 4.060 Echo results: 01/10 There is moderate concentric left ventricular hypertrophy. Overall left ventricular systolic function is low normal with, an EF between 50-55% The right ventricle is moderate to severely enlarged. There is no pericardial effusion CTA 01/10 Acute segmental and subsegmental pulmonary emboli to the right lower lobe. Equivocal findings of right heart strain as there is an abnormal right ventricular to left ventricular ratio and upper limits of normal size of the main pulmonary artery however clot burden is small and there is no reflux of contrast into the inferior vena cava and hepatic veins. Treatment: 01/10 Heparin Ivpb d/c 01/10, PTCA and stenting of proximal RCA of in stent thrombosis, 01/11 Plavix po daily, Lasix po daily Clinical significance of diagnostic testing and treatment CANNOT be assumed or coded without physician documentation of significance if any. Please clarify moderate to severe enlargement of the right ventricle suggesting right ventricular strain. Acute Cor pulmonale due to please specify Other, please specify Unable to determine (Last Revision: July 2017) MTDD
--- NOTE | 2020-01-18 12:28 | CDI ---
Documentation Clarification Form Date: 01/18/20 From: Jessica Park Phone: If you have a question about this query, please contact Pretty Weber, [place] at [phone] between 8am and 5pm. Admit Date: 01/12/20 Discharge Date:01/14/20 Patient Name: Deandre Duong Visit Number: [id number] ATTENTION: The Clinical Documentation Specialists (CDI) and [facility] Coding Staff appreciate your assistance in clarifying documentation. Please respond to the clarification below the line at the bottom and electronically sign. The CDI & [facility] Coding staff will review the response and follow-up if needed. Please note: Queries are made part of the Legal Health Record. If you have any questions, please contact the author of this message via ITS. Dear Dr. Rashid Conflicting documentation has been found in the medical record: Cardiology documented acute coronary syndrome likely secondary to in-stent thrombosis. Documentation of non-ST elevated myocardial infarction is in your 01/12 progress note, H&P and discharge summary. History/Risk Factors: CAD, previous stent placement Clinical Indicators: Chest pain midsternal radiating down his left arm, some shortness of breath, sweats Troponin: <0.012, 0.241, 2.570, 4.060 EKG: EKG was negative for acute findings Angiography: Total occlusion of the RCA at the site of the previous stenting Treatment: Xience stent at the site of the total occlusion In your opinion, what is the most clinically appropriate diagnosis for this patient? Acute coronary syndrome NSTEMI Type II IA Other explanation of clinical findings Unable to determine (no explanation for clinical findings) ACS MTDD
== END 2020-01-14 13:15 | disposition home or self-care (01) | DRG 246 ==
LOC: EC 13:20 → 3SCARD 16:00 → OBSVTOIN 01-12 11:26
PROVIDERS: ADMIT Internal Medicine; ATTEND Internal Medicine
PROC: B2111ZZ Fluoroscopy of Multiple Coronary Arteries using Low Osmolar Contrast (ICD-10-PCS; principal; 2020-01-12 10:50)
PROC: 027034Z Dilation of Coronary Artery, One Artery with Drug-eluting Intraluminal Device, Percutaneous Approach (ICD-10-PCS; principal; 2020-01-12 10:50)
DX: I24.9 Acute ischemic heart disease, unspecified (principal); I26.09 Other pulmonary embolism with acute cor pulmonale; J96.11 Chronic respiratory failure with hypoxia; T82.867A Thrombosis due to cardiac prosthetic devices, implants and grafts, initial encounter; E11.40 Type 2 diabetes mellitus with diabetic neuropathy, unspecified; I27.20 Pulmonary hypertension, unspecified; I95.9 Hypotension, unspecified; D18.03 Hemangioma of intra-abdominal structures; E78.5 Hyperlipidemia, unspecified; G25.81 Restless legs syndrome; H91.93 Unspecified hearing loss, bilateral; I10 Essential (primary) hypertension; I25.10 Atherosclerotic heart disease of native coronary artery without angina pectoris; J43.9 Emphysema, unspecified; K21.9 Gastro-esophageal reflux disease without esophagitis; M19.90 Unspecified osteoarthritis, unspecified site; N40.0 Benign prostatic hyperplasia without lower urinary tract symptoms; G43.909 Migraine, unspecified, not intractable, without status migrainosus; K57.90 Diverticulosis of intestine, part unspecified, without perforation or abscess without bleeding; M54.41 Lumbago with sciatica, right side; M54.42 Lumbago with sciatica, left side; Z79.02 Long term (current) use of antithrombotics/antiplatelets; Z79.51 Long term (current) use of inhaled steroids; Z79.82 Long term (current) use of aspirin; Z79.84 Long term (current) use of oral hypoglycemic drugs; Z79.899 Other long term (current) drug therapy; Z86.711 Personal history of pulmonary embolism; Z86.73 Personal history of transient ischemic attack (TIA), and cerebral infarction without residual deficits; Z87.891 Personal history of nicotine dependence; Z87.01 Personal history of pneumonia (recurrent); Z99.81 Dependence on supplemental oxygen; Y84.0 Cardiac catheterization as the cause of abnormal reaction of the patient, or of later complication, without mention of misadventure at the time of the procedure; Y71.2 Prosthetic and other implants, materials and accessory cardiovascular devices associated with adverse incidents
CPT/HCPCS: 36415; 71046; 71275; 80048; 80053; 80061; 82550; 83690; 83735; 83880; 84484; 85025; 85027; 85379; 85610; 85730; 93005; 93308; 93454; 94640; 96361; 96365; 96375; 96376; 99291

== ENCOUNTER 2020-02-09 04:44 | Inpatient (IN) | payer MEDICARE ==
[2020-02-09] MEDS ORDERED: IPRATROPIUM-ALBUTEROL 3 ML NEB INHALATION STA (05:03)
--- NOTE | 2020-02-09 05:06 | ED ---
Chest Pain HPI <Allan Alanis - Last Filed: 02/09/20 07:44> - General Source: patient, EMS, RN notes reviewed, old records reviewed Mode of arrival: EMS Limitations: no limitations - History of Present Illness MD Complaint: chest pain -: days(s) Onset: during rest Pain Location: substernal, left chest Pain Radiation: none Severity: mild Severity scale (1-10): 4 Quality: tightness, heaviness Consistency: constant Improves With: nothing Worsens With: nothing Context: recent illness Anginal Symptoms: nausea Other Symptoms: cough Treatments Prior to Arrival: none <Dewey Romeo - Last Filed: 02/12/20 04:24> - General Chief Complaint: Chest Pain Stated Complaint: Chest pain, ANNETTA Time Seen by Provider: 02/09/20 05:02 - History of Present Illness Initial Comments: This is a 69-year-old male with complex recent medical history and surgeries coming in for evaluation of shortness of breath and chest pain left-sided chest pain. Nausea no vomiting no fevers. He shouldn't does have recent history of stent placement and treatment for pneumonia. Patient denying again current fevers, no chills. No recent travel history or sick contacts that he knows of otherwise but did have recent prolonged hospitalization (Dewey Romeo) - Related Data Home Medications Medication Instructions Recorded Confirmed Finasteride [Proscar] 5 mg PO HS 10/21/14 02/09/20 Gabapentin [Neurontin] 600 mg PO QAM 10/21/14 02/09/20 Gabapentin 1,200 mg PO HS 04/09/16 02/09/20 traZODone HCL 150 mg PO HS 04/09/16 02/09/20 Albuterol Nebulized [Ventolin 2.5 mg INHALATION RT-QID PRN 06/12/19 02/09/20 Nebulized] ALPRAZolam [Xanax] 0.5 mg PO HS 07/13/19 02/09/20 Budesonide-Formot 160-4.5 Mcg 2 puff INHALATION RT-BID 12/29/19 02/09/20 [Symbicort 160-4.5 Mcg Inhaler] HYDROcodone/APAP 5-325MG [[place] 1 tab PO TID 12/29/19 02/09/20 5-325] Omeprazole Magnesium [PriLOSEC OTC] 20 mg PO BID 12/29/19 02/09/20 Tiotropium 18 Mcg/Puff [Spiriva] 1 puff INHALATION RT-BID 12/29/19 02/09/20 Tamsulosin HCl [Flomax] 0.4 mg PO BID 01/12/20 02/09/20 Escitalopram Oxalate [Lexapro] 10 mg PO DAILY 02/09/20 02/09/20 Previous Rx's Medication Instructions Recorded Atorvastatin [Lipitor] 80 mg PO HS #90 tab 12/31/19 Furosemide [Lasix] 20 mg PO DAILY #90 tab 12/31/19 Metoprolol Tartrate [Lopressor] 12.5 mg PO BID #90 tab 12/31/19 Nitroglycerin Sl Tabs [Nitrostat] 0.4 mg SUBLINGUAL Q5M PRN #25 tab 12/31/19 Apixaban [Eliquis] 5 mg PO BID #60 tab 01/14/20 Clopidogrel [Plavix] 75 mg PO DAILY #30 tab 01/14/20 metFORMIN HCL [Glucophage] 500 mg PO BID #0 01/14/20 Allergies Allergy/AdvReac Type Severity Reaction Status Date / Time No Known Allergies Allergy Verified 02/09/20 08:14 Review of Systems ROS Other: All systems not noted in ROS Statement are negative. <Allan Alanis - Last Filed: 02/09/20 07:44> ROS Other: All systems not noted in ROS Statement are negative. <Dewey Romeo - Last Filed: 02/12/20 04:24> ROS Statement: Those systems with pertinent positive or pertinent negative responses have been documented in the HPI. EKG Findings - EKG Comments: EKG Findings:: EKG shows sinus tach 115 SC 176 QRS 86 QTc 442 <Dewye Romeo - Last Filed: 02/12/20 04:24> Past Medical History Past Medical History: COPD, CVA/TIA, Diabetes Mellitus, GERD/Reflux, Hearing Disorder / Deafness, Hyperlipidemia, Osteoarthritis (OA), Pneumonia, Prostate Disorder, Pulmonary Embolus (PE), Respiratory Disorder Additional Past Medical History / Comment(s): pulmonary embolism/R lower lobe pneumonia/acute hypoxic failure. Portal bollous emphysema. Other hx: fluid retention f, previous history of a pneumothorax requiring a Thoravent insertion back in 2016, home oxygen at 2L/NC prn, diabetes, low back pain with bilateral sciatica; restless leg syndrome; migraines, TIA , BPH, hard of hearing bilaterally, , diverticulosis. New onset diabetes 08/11/19 History of Any Multi-Drug Resistant Organisms: None Reported Past Surgical History: Heart Catheterization With Stent, Hernia Repair, Orthopedic Surgery, Tonsillectomy Additional Past Surgical History / Comment(s): Septoplasty/ESSS, EGD, colonoscopy with benign polyp, R inguinal hernia, umbilical hernia, pain clinic procedures for back pain, atilio fundloplication. Past Anesthesia/Blood Transfusion Reactions: No Reported Reaction Date of Last Stent Placement:: Past Psychological History: No Psychological Hx Reported Smoking Status: Former smoker Past Alcohol Use History: None Reported Past Drug Use History: None Reported - Past Family History Father History Unknown: Yes Family Medical History: No Reported History, Unable to Obtain Additional Family Medical History / Comment(s): Pt was adopted. Mother History Unknown: Yes Additional Family Medical History / Comment(s): Pt was adopted. Daughter(s) Additional Family Medical History / Comment(s): Children do not have any major medical problems. No history of blood clots. <Dewey Romeo - Last Filed: 02/12/20 04:24> General Exam Limitations: no limitations General appearance: alert, in no apparent distress Head exam: Present: atraumatic, normocephalic, normal inspection Eye exam: Present: normal appearance, PERRL, EOMI. Absent: scleral icterus, conjunctival injection, periorbital swelling ENT exam: Present: normal exam, mucous membranes moist Neck exam: Present: normal inspection. Absent: tenderness, meningismus, lymphadenopathy Respiratory exam: Present: respiratory distress, wheezes, decreased breath sounds, prolonged expiratory. Absent: rales, rhonchi, stridor Cardiovascular Exam: Present: normal rhythm, tachycardia, normal heart sounds. Absent: systolic murmur, diastolic murmur, rubs, gallop, clicks GI/Abdominal exam: Present: soft, normal bowel sounds. Absent: distended, tenderness, guarding, rebound, rigid Extremities exam: Present: normal inspection, full ROM, normal capillary refill. Absent: tenderness, pedal edema, joint swelling, calf tenderness Back exam: Present: normal inspection Neurological exam: Present: alert, oriented X3, CN II-XII intact Psychiatric exam: Present: normal affect, normal mood Skin exam: Present: warm, dry, intact, normal color. Absent: rash <Dewey Romeo - Last Filed: 02/12/20 04:24> Course <Allan Alanis - Last Filed: 02/09/20 07:44> <Dewey Romeo - Last Filed: 02/12/20 04:24> Vital Signs 02/09/20 02/09/20 02/09/20 04:46 05:20 05:33 Temperature 97.4 F L Pulse Rate 117 H 104 H 104 H Respiratory 20 Rate Blood Pressure 131/99 O2 Sat by Pulse 93 L Oximetry 02/09/20 02/09/20 02/09/20 05:37 06:00 06:30 Temperature 97.8 F Pulse Rate 112 H 109 H 111 H Respiratory 20 19 20 Rate Blood Pressure 138/97 138/97 117/89 O2 Sat by Pulse 91 L 90 L 92 L Oximetry 02/09/20 07:43 Temperature Pulse Rate 98 Respiratory 18 Rate Blood Pressure 129/84 O2 Sat by Pulse 94 L Oximetry - Reevaluation(s) Reevaluation #1: 02/09/20 07:44 Patient significant family improved following chest tube placement. Chest x-ray reviewed with significant improvement of pneumothorax. (Allan Alanis) 02/09/20 06:18 medical record and prior ED visit and Inpatient hospitilization is reviewed Patient symptoms are improved (Dewey Romeo) Procedures - Chest Tube Insertion Consent Obtained: verbal consent Side of Procedure: left Indication: Pneumothorax Placed on monitor/pulse oximetry: Yes Site Prep: Chloroprep Local Anesthesia: Lidocaine 1% Insertion Site: 5th Intercostal Space, Midaxillary Scalpel: #10 Open into Pleural Space Using: Trocar Tube Size (Spanish): 28 Returns: Air Sutured in Place: Yes Type of Suture: Nylon Attached to Suction: Yes Type of Suction: Pleuravac Patient Tolerated Procedure: well, no complications <Allan Alanis - Last Filed: 02/09/20 07:44> Chest Pain MDM <Dewey Romeo - Last Filed: 02/12/20 04:24> - MDM 69 male DF for evaluation patient with shortness of breath coming in with left- sided pneumothorax severe chest tube is placed symptoms are improved (Dewey Romeo) Critical Care Time Critical Care Time: Yes Total Critical Care Time: 31 <Dewey Romeo - Last Filed: 02/12/20 04:24> Disposition <Allan Alanis - Last Filed: 02/09/20 07:44> Is patient prescribed a controlled substance at d/c from ED?: No <Dewey Romeo - Last Filed: 02/12/20 04:24> Clinical Impression: Chest pain, Acute exacerbation of chronic obstructive airways disease, Pneumothorax, left, Tension pneumothorax Disposition: ADMITTED IP TO THIS HOSP Condition: Fair
[2020-02-09 05:14] LABS: Basophils % (A) 0 %; Eosinophils # (A) 0.1 k/uL (0-0.7); Eosinophils % (A) 1 %; HCT 42.9 % (39.0-53.0); HGB 13.5 gm/dL (13.0-17.5); Hypochromasia Slight; Lymphocytes # (A) 1.1 k/uL (1.0-4.8); Lymphocytes % (A) 7 %; MCH 28.2 pg (25.0-35.0); MCHC 31.5 g/dL (31.0-37.0); MCV 89.4 fL (80.0-100.0); Mean Platelet Volume 6.7; Monocytes # (A) 0.8 k/uL (0-1.0); Monocytes % (A) 5 %; Neutrophils # (A) 13.4 k/uL (1.3-7.7); Neutrophils % (A) 85 %; Platelet Count 298 k/uL (150-450); RDW 14.3 % (11.5-15.5); WBC 15.8 k/uL (3.8-10.6)
[2020-02-09 05:22] LABS: ALT 12 U/L (4-49); AST 14 U/L (17-59); African American GFR (CKD) >90 (>60 ml/min/1.73 sqM); Albumin 3.6 g/dL (3.5-5.0); Alkaline Phosphatase 126 U/L (38-126); Anion Gap 5 mmol/L; Blood Urea Nitrogen 19 mg/dL (9-20); Calcium 9.3 mg/dL (8.4-10.2); Carbon Dioxide 26 mmol/L (22-30); Chloride 109 mmol/L (98-107); Creatine Kinase 33 U/L (55-170); Glucose 96 mg/dL (74-99); Non-African American GFR(CKD) >90 (>60 ml/min/1.73 sqM); Potassium 3.8 mmol/L (3.5-5.1); Sodium 140 mmol/L (137-145); Total Bilirubin 0.2 mg/dL (0.2-1.3); Total Protein 6.3 g/dL (6.3-8.2)
[2020-02-09 05:31] LABS: INR 0.9 (<1.2)
[2020-02-09 05:32] LABS: Partial Thromboplastin Time 21.9 sec (22.0-30.0); Prothrombin Time 9.5 sec (9.0-12.0)
[2020-02-09 05:46] LABS: Creatine Kinase MB 0.7 ng/mL (0.0-2.4); Troponin I <0.012 ng/mL (0.000-0.034)
[2020-02-09] MEDS ORDERED: MORPHINE SULFATE 4 MG/ML SYRINGE IVP STA (06:16)
[2020-02-09] MEDS ORDERED: NITROGLYCERIN SL TABS 0.4 MG TAB SUBLINGUAL PRN ×2 (06:19→08:35)
[2020-02-09] MEDS: SODIUM CHLORIDE 0.9% 1,000 ML IV SCH ×2 (06:29→17:59)
[2020-02-09] MEDS ORDERED: LIDOCAINE 1%-EPI 1:100,000 20 ML VIAL SQ STA (07:00)
--- NOTE | 2020-02-09 07:02 | XR ---
EXAMINATION TYPE: XR chest 2V DATE OF EXAM: 02/09/2020 COMPARISON: 01/11/2020 HISTORY: Chest pain TECHNIQUE: 2 views FINDINGS: There is a large left side pneumothorax. Trachea is shifted slightly to the right side. The re is significant atelectasis in the left lung. The right lung shows some patchy infiltrate in the mi d and lower lung field. There is emphysema in the right upper lobe. There is no heart failure. Heart size is normal. IMPRESSION: There is left side large pneumothorax with mild tension. Emphysema. This was discussed wi Dr. Romeo at 7:00 AM.
[2020-02-09] MEDS ORDERED: LORazepam 2 MG/ML INJ IV STA (07:12)
[2020-02-09] MEDS ORDERED: HYDROmorphone 1 MG/ML 1 ML SYRINGE IVP PRN (07:13)
[2020-02-09] MEDS ORDERED: LIDOCAINE 1% INJ 10MG/ML (20 ML MDV) SQ ONE (07:48)
[2020-02-09] MEDS ORDERED: HYDROmorphone 1 MG/ML 1 ML SYRINGE IVP STA (07:49)
--- NOTE | 2020-02-09 07:51 | XR ---
EXAMINATION TYPE: XR chest 1V portable DATE OF EXAM: 02/09/2020 COMPARISON: 02/09/2020 HISTORY: Pneumothorax follow-up TECHNIQUE: Single frontal view of the chest is obtained. FINDINGS: Chest tube is seen and there is improved aeration with approximately 20% residual thorax. Soft tissue emphysema and lower lobe subsegmental consolidation are noted. Large bulla and emphysemat ous changes involving the right upper lobe stable. IMPRESSION: 1. Improving left-sided pneumothorax with chest tube placement estimated at 20%. 2. Lower lobe infiltrate 3. COPD
[2020-02-09] MEDS ORDERED: ALBUTEROL NEBULIZED 2.5 MG/3 ML INHALATION PRN (08:35)
[2020-02-09] MEDS ORDERED: APIXABAN 5 MG TAB PO SCH (09:00)
[2020-02-09] MEDS ORDERED: CLOPIDOGREL 75 MG TAB PO SCH (09:00)
[2020-02-09] MEDS ORDERED: METOPROLOL TARTRATE 12.5 MG TAB PO SCH ×2 (09:00)
[2020-02-09] MEDS: HYDROcodone/APAP 5-325MG 1 EACH TAB PO SCH ×3 (09:24→22:55)
[2020-02-09] MEDS: FUROSEMIDE 20 MG TAB PO SCH (09:24)
[2020-02-09] MEDS: GABAPENTIN 300 MG CAP PO SCH (09:24)
[2020-02-09] MEDS: APIXABAN 5 MG TAB PO SCH ×2 (09:24→20:38)
[2020-02-09] MEDS: ESCITALOPRAM 10 MG TAB PO SCH (09:25)
[2020-02-09] MEDS: TAMSULOSIN 0.4 MG CAP.ER.24H PO SCH ×2 (09:25→20:39)
[2020-02-09] MEDS: CLOPIDOGREL 75 MG TAB PO SCH (09:25)
[2020-02-09] MEDS: PANTOPRAZOLE 40 MG TABLET PO SCH ×2 (09:27→17:58)
[2020-02-09] MEDS: MORPHINE SULFATE 4 MG/ML SYRINGE IVP PRN ×3 (10:11→20:39)
--- NOTE | 2020-02-09 10:35 | CONS ---
CONSULTATION This is a 69-year-old gentleman who has been admitted to the hospital because of shortness of breath and discomfort in his left chest. He was found to have a spontaneous pneumothorax and now has a chest tube. He has history of smoking, COPD, bullous emphysema for which he was considering surgery in the past. He also has CAD with a chronic total occlusion of RCA that was stented twice recently and also a circumflex PCI. He does not have chest pain. His EKG and troponins are unremarkable. He has a chest tube in. He is more comfortable, but does have pain at the site of chest tube insertion. PAST MEDICAL HISTORY: 1. CAD with stenting of RCA that was initially performed on 12/30/19. He also had a circumflex stenting performed. Subsequently on 01/12/2020, he came back with occlusion of RCA which was restented with a larger stent. 2. Past history of smoking and emphysema. 3. Hypertension. 4. Paroxysmal atrial fibrillation, maintaining sinus rhythm. PHYSICAL EXAMINATION: On examination, blood pressure is 130/70, pulse rate is 110, sinus tachycardia with pain in the chest tube site. HEENT: Unremarkable. Fundus was not examined. Neck is supple. JVD 1 cm. No carotid bruit. S1, S2 heard normally. No significant murmurs. Lungs reveal diminished air entry left side. Right side normal breath sounds. Abdomen and lower extremity exam is unchanged. Central nervous system grossly no focal deficits. EKG revealed sinus tachycardia. No acute changes. IMPRESSION: 1. Spontaneous left pneumothorax, status post chest tube. 2. Coronary artery disease with 2 vessel PCI in the past. 3. Paroxysmal atrial fibrillation. 4. Chronic obstructive pulmonary disease with past history of smoking. RECOMMENDATIONS: I am recommending that we resume Eliquis and Plavix. Continue his other medications as before. Increase beta yoselyn to 25 mg Lopressor b.i.d. Based on clinical course, I will make further recommendations. MMODL / IJN: [id number] /
[2020-02-09 11:47] LABS: Glucose,Whole Blood 126 mg/dL (75-99)
[2020-02-09] MEDS: IPRATROPIUM-ALBUTEROL 3 ML NEB INHALATION SCH ×4 (11:51→19:00)
--- NOTE | 2020-02-09 11:59 | CONS ---
CONSULTATION PULMONARY/CRITICAL CARE CONSULTATION: DATE OF CONSULTATION: February 09, 2020 REASON FOR CONSULTATION: Left pneumothorax. This is a 69-year-old patient who typically sees my partner in the office. That is Dr. Rascon. He apparently was scheduled to have a lung volume reduction surgery done by Dr. Hou at [facility] in the near future. The patient complains of chest pain and shortness of breath. It came on suddenly when he was sleeping. He thought he was having a heart attack. He does have a history of underlying cardiac disease. For that reason, he went to the emergency room where he was evaluated on chest x-ray, was found to have a complete collapse of the left lung. A chest tube was placed by the ER physician. Currently, he has got a left chest tube in place. There is a leak. The patient should be seen by Cardiothoracic Surgery for management of the chest tube. HOME MEDICATIONS: His home medications are reviewed. He is on Proscar, Neurontin, trazodone, albuterol updrafts, Xanax, Symbicort, [place], Prilosec, Spiriva, Flomax, Lexapro, Lipitor, Lasix, Lopressor, nitroglycerin tablets, Eliquis, aspirin, Plavix, and metformin. ALLERGIES: Allergies are denied. MEDICAL HISTORY: His medical history includes moderately severe to severe COPD. He has bullous disease in both lungs, which is why he is being evaluated for lung volume reduction surgery at [facility]. In addition, he suffers from CVA, diabetes mellitus, GERD, deafness, hyperlipidemia, DJD, pneumonia, pulmonary embolism, CAD, and chronic hypoxemic respiratory failure. The patient has also had a previous right-sided pneumothorax treated with a Thoravent back in 2016. He does suffer from BPH as well as diverticular disease. He also suffers from chronic back pain. As mentioned, the patient does have a history of underlying coronary disease and has had stent placements done. In addition to a stent placement, he has had hernia repair, multiple orthopedic procedures, tonsillectomy, EGD, colonoscopy, and procedures for his chronic back pain. He also had a Thomas fundoplication done laparoscopically. SOCIAL HISTORY: Positive for previous heavy tobacco use. Does not smoke currently. Denies any alcohol or illicit drug use. FAMILY HISTORY: Family history is unremarkable. The patient was adopted. Mother history is also unknown as he was adopted. No other important history noted. REVIEW OF SYSTEMS: CONSTITUTIONAL: Negative. NEUROLOGIC: Negative. HEENT: Negative. CARDIOVASCULAR: Left-sided chest pain. PULMONARY: Shortness of breath. GI: Negative. : Negative. RHEUMATOLOGIC: Negative. IMMUNOLOGIC: Negative. ENDOCRINOLOGIC: Negative. DERMATOLOGIC: Negative. PHYSICAL EXAMINATION: VITAL SIGNS: Current vital signs are reviewed. His temperature is 97.8, heart rate 98, respiratory rate 18, blood pressure 129/84, mean 99 and 3 L saturation 94%. GENERAL: Appears in no acute distress. HEENT: Examination is grossly unremarkable. Nasal O2 noted. NECK: Supple. Full range of motion. No adenopathy or thyromegaly. Neck veins are flat. CARDIOVASCULAR: Examination reveals regular rhythm and rate. Heart rate about 90 beats per minute. S1, S2 normal. There is no murmur. LUNGS: Reveal diminished breath sounds throughout. A few scattered mild rhonchi noted. Some mild expiratory wheezes are appreciated. No crackles. Left chest tube is noted. ABDOMEN: Soft. Bowel sounds are heard. EXTREMITIES: Are intact. No cyanosis, clubbing, or edema. SKIN: Without rash. NEUROLOGIC: Examination is brief but nonfocal. Chest x-ray shows initially a completely collapsed left lung and re-expansion of the left lung, status post chest tube placement. LABS: Labs are reviewed. White count 15.8. Hemoglobin, hematocrit and platelet count all normal. PT, INR and PTT normal. Sodium 140, potassium 3.8, chloride 109, CO2 of 26. Anion gap is 5. BUN and creatinine were 19 and 0.75. AST 14. CK 33. The rest of the comprehensive metabolic profile is normal. Microbiology is currently pending. MEDICATIONS: Medications are reviewed. ASSESSMENT: 1. Spontaneous left-sided pneumothorax, status post chest tube placement. 2. Ongoing air leak secondary to pneumothorax. 3. Bullous emphysema. 4. Mildly severe to severe chronic obstructive pulmonary disease. 5. Anticipated lung volume reduction surgery at [facility]. 6. History of cerebrovascular accident. 7. Diabetes mellitus. 8. Coronary artery disease with stent placement. 9. Gastroesophageal reflux disease. 10.Deafness. 11.Hyperlipidemia. 12.Degenerative joint disease. 13.Chronic back pain. 14.Benign prostatic hypertrophy. 15.History of pulmonary embolism. 16.History of diverticular disease. 17.Restless legs syndrome. 18.Migraine cephalgia. 19.Multiple other medical problems and comorbidities. PLAN: The patient is doing okay. He does have a leak. We should have Cardiothoracic see him just in case he has a persistent leak. The patient was to have a lung volume reduction surgery done at [facility] by Dr. Hou. That is obviously on hold now. We will continue to follow. Prognosis is guarded. Medications are reviewed. MMODL / IJN: [id number] /
[2020-02-09] MEDS: LEVOFLOXACIN 750 MG TAB PO SCH (12:49)
[2020-02-09] MEDS: KETOROLAC 30 MG/ML 1 ML VIAL IVP SCH ×3 (12:49→22:55)
[2020-02-09] MEDS: INSULIN ASPART (NovoLOG) 100 UNIT/ML VIAL SQ SCH ×3 (12:50→20:47)
[2020-02-09] MEDS ORDERED: METOPROLOL TARTRATE 12.5 MG TAB PO STA (12:51)
--- NOTE | 2020-02-09 12:53 | P.HPIM ---
History of Present Illness H&P Date: 02/09/20 This is a 69-year-old male patient of Abiodun Matthews and LEDY Ochoa with past history of chronic bullous emphysema, COPD stage III, chronic hypoxic respiratory failure, right sided pneumothorax requiring Thora vent placement, history of large right lower lobe segmental and subsegmental branch emboli diagnosed last summer. He is scheduled for a lung volume reduction surgery at [facility] in the near future. Patient was recently hospitalized in December for pulmonary embolism right side along with non-ST elevated myocardial infarction status post heart catheterization and PTCA and stenting of a totally occluded proximal RCA probable in-stent thrombosis. Patient was discharged at that time on eliquis, Plavix and aspirin. He states he has been doing well until this morning he woke up approximately 2 AM with chest pain similar to that when he had a blood clot in his stent in December. He took aspirin and [place] without any relief and then called an ambulance. He was also complaining of shortness of breath at the time and pain in his left shoulder and neck. Patient came into [facility] emergency center for evaluation. Pulse ox 93% on room air, afebrile, heart rate 117, blood pressure 131/99. Initial chest x-ray revealed large left-sided pneumothorax with mild tension. Emphysema. Patient underwent left-sided chest tube insertion and repeat chest x- ray revealed improving left-sided pneumothorax with chest tube placement estimated at 20%. Lower lobe infiltrate. COPD. Patient was admitted to the cardiac stepdown unit and consult in place with pulmonary medicine and cardiology. Review of Systems Constitutional: Denies chills, Denies fatigue, Denies fever, Denies lethargy, Denies malaise, Denies poor appetite, Denies weight loss Eyes: denies blurred vision, denies pain Ears, nose, mouth and throat: Denies dysphagia, Denies nasal congestion, Denies nasal discharge, Denies sore throat, Denies vertigo Cardiovascular: Reports chest pain, Reports dyspnea on exertion, Reports lightheadedness, Reports shortness of breath, Denies palpitations, Denies syncope Respiratory: Reports dyspnea, Denies cough, Denies excessive sputum, Denies hemoptysis Gastrointestinal: Denies abdominal pain, Denies BRBPR, Denies coffee ground emesis, Denies diarrhea, Denies hematemesis, Denies hematochezia, Denies loss of appetite, Denies melena, Denies nausea, Denies vomiting Genitourinary: Denies dysuria, Denies urinary retention Musculoskeletal: Denies frequent falls, Denies gait dysfunction, Denies muscle weakness, Denies myalgias Integumentary: Denies pruritus, Denies rash, Denies wounds Neurological: Denies numbness, Denies weakness Psychiatric: Denies anxiety, Denies depression Endocrine: Denies fatigue, Denies weight change Past Medical History Past Medical History: COPD, CVA/TIA, Diabetes Mellitus, GERD/Reflux, Hearing Disorder / Deafness, Hyperlipidemia, Osteoarthritis (OA), Pneumonia, Prostate Disorder, Pulmonary Embolus (PE), Respiratory Disorder Additional Past Medical History / Comment(s): pulmonary embolism/R lower lobe pneumonia/acute hypoxic failure. Portal bollous emphysema. Other hx: fluid retention f, previous history of a pneumothorax requiring a Thoravent insertion back in 2015, home oxygen at 2L/NC prn, diabetes, low back pain with bilateral sciatica; restless leg syndrome; migraines, TIA , BPH, hard of hearing bilaterally, , diverticulosis. New onset diabetes 08/11/19 History of Any Multi-Drug Resistant Organisms: None Reported Past Surgical History: Heart Catheterization With Stent, Hernia Repair, Orthopedic Surgery, Tonsillectomy Additional Past Surgical History / Comment(s): Septoplasty/ESSS, EGD, colonoscopy with benign polyp, R inguinal hernia, umbilical hernia, pain clinic procedures for back pain, atilio fundloplication. Past Anesthesia/Blood Transfusion Reactions: No Reported Reaction Date of Last Stent Placement:: Past Psychological History: No Psychological Hx Reported Smoking Status: Former smoker Past Alcohol Use History: None Reported Additional Past Alcohol Use History / Comment(s): Pt started smoking in 1967 1-1-1/2 packs per day and quit in 2007. Past Drug Use History: None Reported - Past Family History Father History Unknown: Yes Family Medical History: No Reported History, Unable to Obtain Additional Family Medical History / Comment(s): Pt was adopted. Mother History Unknown: Yes Additional Family Medical History / Comment(s): Pt was adopted. Daughter(s) Additional Family Medical History / Comment(s): Children do not have any major medical problems. No history of blood clots. Medications and Allergies Home Medications Medication Instructions Recorded Confirmed Type Finasteride [Proscar] 5 mg PO HS 10/21/14 02/09/20 History Gabapentin [Neurontin] 600 mg PO QAM 10/21/14 02/09/20 History Gabapentin 1,200 mg PO HS 04/09/16 02/09/20 History traZODone HCL 150 mg PO HS 04/09/16 02/09/20 History Albuterol Nebulized [Ventolin 2.5 mg INHALATION RT-QID PRN 06/12/19 02/09/20 History Nebulized] ALPRAZolam [Xanax] 0.5 mg PO HS 07/13/19 02/09/20 History Budesonide-Formot 160-4.5 Mcg 2 puff INHALATION RT-BID 12/29/19 02/09/20 History [Symbicort 160-4.5 Mcg Inhaler] HYDROcodone/APAP 5-325MG [[place] 1 tab PO TID 12/29/19 02/09/20 History 5-325] Omeprazole Magnesium [PriLOSEC OTC] 20 mg PO BID 12/29/19 02/09/20 History Tiotropium 18 Mcg/Puff [Spiriva] 1 puff INHALATION RT-BID 12/29/19 02/09/20 History Atorvastatin [Lipitor] 80 mg PO HS #90 tab 12/31/19 02/09/20 Rx Furosemide [Lasix] 20 mg PO DAILY #90 tab 12/31/19 02/09/20 Rx Metoprolol Tartrate [Lopressor] 12.5 mg PO BID #90 tab 12/31/19 02/09/20 Rx Nitroglycerin Sl Tabs [Nitrostat] 0.4 mg SUBLINGUAL Q5M PRN #25 tab 12/31/19 02/09/20 Rx Tamsulosin HCl [Flomax] 0.4 mg PO BID 01/12/20 02/09/20 History Apixaban [Eliquis] 5 mg PO BID #60 tab 01/14/20 02/09/20 Rx Clopidogrel [Plavix] 75 mg PO DAILY #30 tab 01/14/20 02/09/20 Rx metFORMIN HCL [Glucophage] 500 mg PO BID #0 01/14/20 02/09/20 Rx Escitalopram Oxalate [Lexapro] 10 mg PO DAILY 02/09/20 02/09/20 History Allergies Allergy/AdvReac Type Severity Reaction Status Date / Time No Known Allergies Allergy Verified 02/09/20 08:14 Physical Exam Vitals: Vital Signs Temp Pulse Resp BP Pulse Ox 02/09/20 07:43 98 18 129/84 94 L 02/09/20 06:30 97.8 F 111 H 20 117/89 92 L 02/09/20 06:00 109 H 19 138/97 90 L 02/09/20 05:37 112 H 20 138/97 91 L 02/09/20 05:33 104 H 02/09/20 05:20 104 H 02/09/20 04:46 97.4 F L 117 H 20 131/99 93 L Intake and Output 02/08/20 02/09/20 02/09/20 22:59 06:59 14:59 Other: Weight 79.379 kg Gen: This is a 69-year-old male. Patient is resting in bed and appears to be comfortable and in no acute distress. No respiratory distress is noted. HEENT: Head is atraumatic, normocephalic. Pupils equal, round. Sclerae is anicteric. NECK: Supple. No JVD. No lymphadenopathy. No thyromegaly. LUNGS: Few expiratory wheezes, diminished. No intercostal retractions. HEART: Regular rate and rhythm. no murmur. ABDOMEN: Soft. Bowel sounds are present. No masses. No tenderness. EXTREMITIES: No pedal edema. No calf tenderness. Dorsalis pedis +2 bilaterally. NEUROLOGICAL: Patient is awake, alert and oriented x3. Cranial nerves 2 through 12 are grossly intact. Results CBC & Chem 7: 02/09/20 04:56 02/09/20 04:56 Labs: Abnormal Lab Results - Last 24 Hours (Table) 02/09/20 02/09/20 02/09/20 Range/Units 04:56 04:56 04:56 WBC 15.8 H (3.8-10.6) k/uL Neutrophils # 13.4 H (1.3-7.7) k/uL APTT 21.9 L (22.0-30.0) sec Chloride 109 H (98-107) mmol/L AST 14 L (17-59) U/L Creatine Kinase 33 L (55-170) U/L Thrombosis Risk Factor Assmnt - DVT/VTE Prophylaxis DVT/VTE Prophylaxis: Pharmacologic Prophylaxis ordered Assessment and Plan Plan: 1. Spontaneous left-sided pneumothorax status post chest tube placement with air leak. Patient admitted to the cardiac stepdown unit. Consults with cardiology and pulmonary medicine appreciated. Consult added for cardiothoracic surgery. 2. History of Pulmonary embolism. Continue eliquis. 3. Recent hospitalization for non-ST elevated myocardial infarction status post stenting of a totally occluded RCA possibly secondary to in-stent thrombosis and previous mid circumflex stenting. Cardiology consult appreciated. Continue eliquis 5 mg twice daily, Plavix 75 mg daily, Lopressor increased to 25 mg twice daily. Continue atorvastatin 80 mg at bedtime. 3. Chronic bullous emphysema, COPD stage III. 4. Chronic hypoxic respiratory failure. Continue oxygen therapy. 5. Diabetes mellitus type 2. Continue to hold metformin 500 mg twice daily, NovoLog scale before meals and at bedtime. 6. Hyperlipidemia. Continue Lipitor. 7. Benign prostatic hypertrophy. Continue Proscar and Flomax. 8. Diabetic neuropathy. Continue gabapentin 600 mg in the morning and 1200 at bedtime. 9. Hypertension. Continue Lopressor. 10. Gastroesophageal reflux disease. Continue Protonix. 11. DVT prophylaxis. Eliquis. Patient will be admitted to the hospital for a minimum of 2 night stay. Discharge plan: Return home Impression and plan of care have been directed as dictated by the signing physician. Cierra Lazo nurse practitioner acting as scribe for signing physician.
[2020-02-09 17:31] LABS: Glucose,Whole Blood 107 mg/dL (75-99)
[2020-02-09] MEDS: SYMBICORT 160-4.5 MCG INHALER INHALATION SCH (19:00)
[2020-02-09] MEDS: ATORVASTATIN 80 MG TAB PO SCH (20:38)
[2020-02-09] MEDS: GABAPENTIN 400 MG CAP PO SCH (20:38)
[2020-02-09] MEDS: ALPRAZolam 0.5 MG TAB PO SCH (20:38)
[2020-02-09] MEDS: FINASTERIDE 5 MG TAB PO SCH (20:38)
[2020-02-09] MEDS: traZODone HCL 50 MG TAB PO SCH (20:39)
[2020-02-09] MEDS: METOPROLOL TARTRATE 25 MG TAB PO SCH (20:39)
[2020-02-09 20:41] LABS: Glucose,Whole Blood 113 mg/dL (75-99)
[2020-02-10] MEDS: MORPHINE SULFATE 4 MG/ML SYRINGE IVP PRN ×4 (01:43→20:58)
[2020-02-10] MEDS: SODIUM CHLORIDE 0.9% 1,000 ML IV SCH ×3 (01:47→21:34)
[2020-02-10 06:14] LABS: Glucose,Whole Blood 96 mg/dL (75-99)
[2020-02-10 06:19] LABS: Cholesterol 87 mg/dL (<200); HDL Cholesterol 25 mg/dL (40-60); LDL Cholesterol,Calculated 31 mg/dL (0-99); Triglycerides 155 mg/dL (<150)
[2020-02-10] MEDS: INSULIN ASPART (NovoLOG) 100 UNIT/ML VIAL SQ SCH ×4 (06:30→22:37)
[2020-02-10] MEDS: PANTOPRAZOLE 40 MG TABLET PO SCH ×2 (06:44→17:40)
[2020-02-10] MEDS: KETOROLAC 30 MG/ML 1 ML VIAL IVP SCH (06:45)
[2020-02-10] MEDS: SYMBICORT 160-4.5 MCG INHALER INHALATION SCH ×2 (07:38→19:05)
[2020-02-10] MEDS: IPRATROPIUM-ALBUTEROL 3 ML NEB INHALATION SCH ×4 (07:38→19:05)
[2020-02-10] MEDS: LEVOFLOXACIN 750 MG TAB PO SCH (08:57)
[2020-02-10] MEDS: CLOPIDOGREL 75 MG TAB PO SCH (08:57)
[2020-02-10] MEDS: HYDROcodone/APAP 5-325MG 1 EACH TAB PO SCH ×3 (08:57→22:35)
[2020-02-10] MEDS: METOPROLOL TARTRATE 25 MG TAB PO SCH ×2 (08:58→22:34)
[2020-02-10] MEDS: GABAPENTIN 300 MG CAP PO SCH (08:58)
[2020-02-10] MEDS: ESCITALOPRAM 10 MG TAB PO SCH (08:58)
[2020-02-10] MEDS: FUROSEMIDE 20 MG TAB PO SCH (08:58)
[2020-02-10] MEDS: TAMSULOSIN 0.4 MG CAP.ER.24H PO SCH ×2 (08:58→22:37)
[2020-02-10] MEDS: APIXABAN 5 MG TAB PO SCH ×2 (08:58→22:36)
[2020-02-10] MEDS ORDERED: ASPIRIN 325 MG TAB PO SCH (09:00)
--- NOTE | 2020-02-10 11:07 | P.PN ---
Subjective Progress Note Date: 02/10/20 This is a 69-year-old male patient of Abiodun Matthews and LEDY Ochoa with past history of chronic bullous emphysema, COPD stage III, chronic hypoxic respiratory failure, right sided pneumothorax requiring Thora vent placement, history of large right lower lobe segmental and subsegmental branch emboli diagnosed last summer. He is scheduled for a lung volume reduction surgery at [facility] in the near future. Patient was recently hospitalized in December for pulmonary embolism right side along with non-ST elevated myocardial infarction status post heart catheterization and PTCA and stenting of a totally occluded proximal RCA probable in-stent thrombosis. Patient was discharged at that time on eliquis, Plavix and aspirin. He states he has been doing well until this morning he woke up approximately 2 AM with chest pain similar to that when he had a blood clot in his stent in December. He took aspirin and [place] without any relief and then called an ambulance. He was also complaining of shortness of breath at the time and pain in his left shoulder and neck. Patient came into [facility] emergency center for evaluation. Pulse ox 93% on room air, afebrile, heart rate 117, blood pressure 131/99. Initial chest x-ray revealed large left-sided pneumothorax with mild tension. Emphysema. Patient underwent left-sided chest tube insertion and repeat chest x- ray revealed improving left-sided pneumothorax with chest tube placement estimated at 20%. Lower lobe infiltrate. COPD. Patient was admitted to the cardiac stepdown unit and consult in place with [facility] medicine and cardiology. 02/09: Pulse ox is 92% on 3 L, patient's been afebrile, heart rate 80s to 90s, blood pressure 104/57. family preservation officer is sinus rhythm. Blood sugars are running between 96 and 113, triglycerides 155, cholesterol 87, LDL 31, HDL 25. Patient found to have no air leak today. No cardiothoracic surgery consult was placed. Possible removal of chest tube tomorrow. Anticipate possible discharge by Saturday. Objective - Vital Signs Vital signs: Vital Signs Temp 97.9 F 02/10/20 04:00 Pulse 92 02/10/20 07:51 Resp 16 02/10/20 04:00 BP 104/57 02/10/20 04:00 Pulse Ox 92 L 02/10/20 04:00 Intake & Output 02/09/20 02/10/20 02/10/20 18:59 06:59 18:59 Intake Total 1110 1930 Output Total 168 Balance 1110 1762 Weight 79.379 kg 82.9 kg Intake: IV 20 Invasive Line 1 20 Intake, IV Titration 750 1300 Amount Sodium Chloride 0.9% 1, 750 1300 000 ml @ 100 mls/hr IV . Q10H [facility] Rx#:[id number] Oral 360 610 Output: Chest Tube Drainage 168 Chest Tube Left Lateral 168 Chest Other: Voiding Method Toilet # Voids 1 1 # Bowel Movements 0 - Exam Review of Systems Constitutional: Denies chills, Denies fatigue, Denies fever, Denies lethargy, Denies malaise, Denies poor appetite, Denies weight loss Ears, nose, mouth and throat: Denies dysphagia, Denies nasal congestion, Denies nasal discharge, Denies sore throat, Denies vertigo Cardiovascular: Reports chest pain, Reports dyspnea on exertion, Reports lightheadedness, Reports shortness of breath, Denies palpitations, Denies syncope Respiratory: Reports dyspnea, Denies cough, Denies excessive sputum, Denies hemoptysis Gastrointestinal: Denies abdominal pain, Denies BRBPR, Denies coffee ground emesis, Denies diarrhea, Denies hematemesis, Denies hematochezia, Denies loss of appetite, Denies melena, Denies nausea, Denies vomiting Genitourinary: Denies dysuria, Denies urinary retention Musculoskeletal: Denies frequent falls, Denies gait dysfunction, Denies muscle weakness, Denies myalgias Integumentary: Denies pruritus, Denies rash, Denies wounds Neurological: Denies numbness, Denies weakness Psychiatric: Denies anxiety, Denies depression Endocrine: Denies fatigue, Denies weight change Physical examination Gen: This is a 69-year-old male. Patient is resting in bed and appears to be comfortable and in no acute distress. No respiratory distress is noted. HEENT: Head is atraumatic, normocephalic. Pupils equal, round. Sclerae is anicteric. NECK: Supple. No JVD. No lymphadenopathy. No thyromegaly. LUNGS: Few expiratory wheezes, diminished. No intercostal retractions. Left- sided chest tube in place. HEART: Regular rate and rhythm. no murmur. ABDOMEN: Soft. Bowel sounds are present. No masses. No tenderness. EXTREMITIES: No pedal edema. No calf tenderness. Dorsalis pedis +2 bilaterally. NEUROLOGICAL: Patient is awake, alert and oriented x3. Cranial nerves 2 through 12 are grossly intact. - Labs CBC & Chem 7: 02/09/20 04:56 02/09/20 04:56 Labs: Abnormal Lab Results - Last 24 Hours (Table) 02/09/20 02/09/20 02/09/20 Range/Units 11:34 17:30 20:40 POC Glucose (mg/dL) 126 H 107 H 113 H (75-99) mg/dL Triglycerides (<150) mg/dL HDL Cholesterol (40-60) mg/dL 02/10/20 Range/Units 04:42 POC Glucose (mg/dL) (75-99) mg/dL Triglycerides 155 H (<150) mg/dL HDL Cholesterol 25 L (40-60) mg/dL Assessment and Plan Plan: 1. Spontaneous left-sided pneumothorax status post chest tube placement with air leak-resolved. Patient admitted to the cardiac stepdown unit. Consults with cardiology and pulmonary medicine appreciated. 2. History of Pulmonary embolism. Continue eliquis. 3. Recent hospitalization for non-ST elevated myocardial infarction status post stenting of a totally occluded RCA possibly secondary to in-stent thrombosis and previous mid circumflex stenting. Cardiology consult appreciated. Continue eliquis 5 mg twice daily, Plavix 75 mg daily, Lopressor increased to 25 mg twice daily. Continue atorvastatin 80 mg at bedtime. 3. Chronic bullous emphysema, COPD stage III. 4. Chronic hypoxic respiratory failure. Continue oxygen therapy. 5. Diabetes mellitus type 2. Continue to hold metformin 500 mg twice daily, NovoLog scale before meals and at bedtime. 6. Hyperlipidemia. Continue Lipitor. 7. Benign prostatic hypertrophy. Continue Proscar and Flomax. 8. Diabetic neuropathy. Continue gabapentin 600 mg in the morning and 1200 at bedtime. 9. Hypertension. Continue Lopressor. 10. Gastroesophageal reflux disease. Continue Protonix. 11. DVT prophylaxis. Eliquis. Discharge plan: Return home on Saturday most likely. Impression and plan of care have been directed as dictated by the signing physician. Cierra Lazo nurse practitioner acting as scribe for signing physician.
[2020-02-10] MEDS ORDERED: HYDROCORTISONE 1% CREAM 30 GM TUBE TOPICAL PRN (11:28)
[2020-02-10] MEDS ORDERED: diphenhydrAMINE 25 MG CAP PO PRN (11:29)
[2020-02-10] MEDS: HYDROcodone/APAP 5-325MG 1 EACH TAB PO PRN ×2 (11:30→16:25)
[2020-02-10 11:34] LABS: Glucose,Whole Blood 99 mg/dL (75-99)
--- NOTE | 2020-02-10 12:56 | PN ---
PROGRESS NOTE This is a gentleman with CAD, multivessel PCI, came in with a spontaneous pneumothorax, has a chest tube, doing well. No angina. EKG looks good. His heart rate has come down nicely. His pain is less. Vitals are stable, no JVD. S1, S2 heard normally. Diminished breath sounds on the left side. Abdomen and lower extremity exam unchanged. He has CAD. Advised to continue dual antiplatelet therapy. He is stable from a cardiac standpoint. We will see him as needed. MMODL / IJN: [id number] /
--- NOTE | 2020-02-10 14:38 | P.PN ---
Subjective Progress Note Date: 02/10/20 Principal diagnosis: This is a 69-year-old patient who typically sees Dr. Rascon in the office. He is scheduled to have a lung volume reduction surgery done by Dr. Hou at [facility] in the near future. He complained of chest pain and shortness of breath which came on suddenly when sleeping. He thought he was having a heart attack as he does have underlying cardiac disease. For that reason he came to [facility] emergency room for evaluation and treatment. On chest x-ray he was found to have a complete collapse of the left lung. A chest tube was placed by the ER physicians with almost complete reexpansion of the lung. Left chest tube remains in place with positive air leak. The patient was admitted with consultation placed to Dr. Villagomez for hypoxia and Dr. Gresham for chest pain. The patient was seen and examined today 02/10/2020 on the cardiac stepdown unit with Dr. Villagomez. He is sitting up in bed and appears comfortable. Denies significant pain or increased shortness of breath. Currently on 3 L nasal cannula with oxygen saturation 93%. Remains afebrile. Hemodynamically stable. Lipid profile drawn with elevated triglycerides, otherwise no new labs or chest x-rays completed today. Left pleural chest tube remains in place to continuous wall suction, no air leak present with minimal drainage. No new concerns. Objective - Vital Signs Vital signs: Vital Signs Temp 98.6 F 02/10/20 11:42 Pulse 80 02/10/20 11:42 Resp 18 02/10/20 11:42 BP 105/52 02/10/20 11:42 Pulse Ox 93 L 02/10/20 11:42 Intake & Output 02/09/20 02/10/20 02/10/20 18:59 06:59 18:59 Intake Total 1110 1930 240 Output Total 168 Balance 1110 1762 240 Weight 79.379 kg 82.9 kg Intake: IV 20 Invasive Line 1 20 Intake, IV Titration 750 1300 Amount Sodium Chloride 0.9% 1, 750 1300 000 ml @ 100 mls/hr IV . Q10H [facility] Rx#:[id number] Oral 360 610 240 Output: Chest Tube Drainage 168 Chest Tube Left Lateral 168 Chest Other: Voiding Method Toilet Toilet # Voids 1 1 1 # Bowel Movements 0 - Constitutional Constitutional Comment(s): Sitting up in bed, appears comfortable General appearance: Present: cooperative, no acute distress - Respiratory Details: Lungs sounds diminished bilaterally, left greater than right, few scattered rhonchi present. Respirations even, nonlabored. Currently on 3 L nasal cannula with oxygen saturation 93%. Left pleural chest tube present continuous wall suction, 170 mL serosanguineous drainage since chest tube placement, no air leak present. - Cardiovascular Details: S1, S2 present. Regular rate and rhythm, sinus rhythm on telemetry. Palpable peripheral pulses bilaterally. No edema present. No calf pain or tenderness noted. - Gastrointestinal Gastrointestinal Comment(s): Abdomen soft, nontender, nondistended. No organomegaly. Active bowel sounds present 4 quadrants. Tolerating diet. - Integumentary Integumentary Comment(s): Skin is warm and dry - Neurologic Neurologic: Present: CNII-XII intact - Musculoskeletal Musculoskeletal: Present: gait normal, strength equal bilaterally - Psychiatric Psychiatric: Present: A&O x's 3, appropriate affect, intact judgment & insight - Allied health notes Allied health notes reviewed: nursing - Labs CBC & Chem 7: 02/09/20 04:56 02/09/20 04:56 Labs: Abnormal Lab Results - Last 24 Hours (Table) 02/09/20 02/09/20 02/10/20 Range/Units 17:30 20:40 04:42 POC Glucose (mg/dL) 107 H 113 H (75-99) mg/dL Triglycerides 155 H (<150) mg/dL HDL Cholesterol 25 L (40-60) mg/dL Assessment and Plan Assessment: 1. Spontaneous left-sided pneumothorax, status post chest tube placement 2. Ongoing air leak secondary to pneumothorax 3. Bullous emphysema 4. Mildly severe to severe chronic obstructive pulmonary disease 5. Anticipated lung volume reduction surgery at [facility] 6. History of cerebrovascular accident 7. Diabetes mellitus 8. Coronary artery disease with stent placement 9. Hyperlipidemia 10. Chronic back pain 11. History of pulmonary embolism 12. Multiple other medical problems and comorbidities Plan: Chest tube placed to waterseal. If no air leak tomorrow and resolution of pneumothorax will discontinue left pleural chest tube Wean O2 as tolerated Continue DuoNeb didierrafts, Symbicort Repeat chest x-ray the morning Increase activity, ambulate as tolerated Medical management of other comorbidities per primary care service, cardiology We'll continue to monitor while hospitalized I, the cosigning physician, performed a history & physical examination of the patient. Lungs sounds are diminished bilaterally, left greater than right with a few scattered rhonchi present. Maintaining good O2 saturations in the 90s on 3 L nasal cannula. I discussed the assessment and plan of care with my nurse practitioner, Tere Teixeira. I attest to the above note as dictated by her. Time with Patient: Greater than 30
[2020-02-10 15:24] VITALS: BMI 25.4
[2020-02-10 16:38] LABS: Glucose,Whole Blood 143 mg/dL (75-99)
[2020-02-10 20:44] LABS: Glucose,Whole Blood 126 mg/dL (75-99)
[2020-02-10] MEDS: traZODone HCL 50 MG TAB PO SCH (22:34)
[2020-02-10] MEDS: ALPRAZolam 0.5 MG TAB PO SCH (22:34)
[2020-02-10] MEDS: ATORVASTATIN 80 MG TAB PO SCH (22:35)
[2020-02-10] MEDS: GABAPENTIN 400 MG CAP PO SCH (22:35)
[2020-02-10] MEDS: FINASTERIDE 5 MG TAB PO SCH (22:35)
[2020-02-11] MEDS: MORPHINE SULFATE 4 MG/ML SYRINGE IVP PRN ×4 (01:14→20:10)
[2020-02-11] MEDS: HYDROcodone/APAP 5-325MG 1 EACH TAB PO SCH ×2 (05:09→16:39)
[2020-02-11 06:03] LABS: Glucose,Whole Blood 102 mg/dL (75-99)
[2020-02-11] MEDS: PANTOPRAZOLE 40 MG TABLET PO SCH ×2 (07:07→16:46)
--- NOTE | 2020-02-11 07:29 | XR ---
EXAMINATION TYPE: XR chest 1V portable DATE OF EXAM: 02/11/2020 HISTORY: Shortness of breath. COMPARISON: None. TECHNIQUE: Single view of the chest is submitted. FINDINGS: Left-sided chest tube redemonstrated and is now visualized over the periphery of the left lung. Thora x has improved with tiny left apical component. Increasing subcutaneous emphysema along the left ches t wall. Basilar infiltrates left greater than right are redemonstrated. The heart is stable. Hilar and mediastinal structures are within normal limits. Degenerative changes are seen of the dorsal spine. IMPRESSION: 1. Left-sided chest tube redemonstrated and is now visualized over the periphery of the left lung. T horax has improved with tiny left apical component.
[2020-02-11] MEDS: IPRATROPIUM-ALBUTEROL 3 ML NEB INHALATION SCH ×4 (08:36→20:44)
[2020-02-11] MEDS: SYMBICORT 160-4.5 MCG INHALER INHALATION SCH ×2 (08:36→20:44)
[2020-02-11] MEDS: INSULIN ASPART (NovoLOG) 100 UNIT/ML VIAL SQ SCH (09:06)
[2020-02-11] MEDS: SODIUM CHLORIDE 0.9% 1,000 ML IV SCH (09:27)
[2020-02-11] MEDS: GABAPENTIN 300 MG CAP PO SCH (09:35)
[2020-02-11] MEDS: TAMSULOSIN 0.4 MG CAP.ER.24H PO SCH ×2 (09:35→20:09)
[2020-02-11] MEDS: FUROSEMIDE 20 MG TAB PO SCH (09:35)
[2020-02-11] MEDS: METOPROLOL TARTRATE 25 MG TAB PO SCH ×2 (09:35→20:09)
[2020-02-11] MEDS: LEVOFLOXACIN 750 MG TAB PO SCH (09:35)
[2020-02-11] MEDS: CLOPIDOGREL 75 MG TAB PO SCH (09:35)
[2020-02-11] MEDS: APIXABAN 5 MG TAB PO SCH ×2 (09:35→20:09)
[2020-02-11] MEDS: ESCITALOPRAM 10 MG TAB PO SCH (09:35)
--- NOTE | 2020-02-11 11:13 | P.PN ---
Subjective Progress Note Date: 02/11/20 Principal diagnosis: This is a 69-year-old patient who typically sees Dr. Rascon in the office. He is scheduled to have a lung volume reduction surgery done by Dr. Hou at [facility] in the near future. He complained of chest pain and shortness of breath which came on suddenly when sleeping. He thought he was having a heart attack as he does have underlying cardiac disease. For that reason he came to [facility] emergency room for evaluation and treatment. On chest x-ray he was found to have a complete collapse of the left lung. A chest tube was placed by the ER physicians with almost complete reexpansion of the lung. Left chest tube remains in place with positive air leak. The patient was admitted with consultation placed to Dr. Villagomez for hypoxia and Dr. Gresham for chest pain. The patient was seen and examined today 02/10/2020 on the cardiac stepdown unit with Dr. Villagomez. He is sitting up in bed and appears comfortable. Denies significant pain or increased shortness of breath. Currently on 3 L nasal cannula with oxygen saturation 93%. Remains afebrile. Hemodynamically stable. Lipid profile drawn with elevated triglycerides, otherwise no new labs or chest x-rays completed today. Left pleural chest tube remains in place to continuous wall suction, no air leak present with minimal drainage. No new concerns. The patient was seen and examined today 02/11/2020 and the cardiac stepdown unit with Dr. Villagomez. He is sitting up in the bed and appears comfortable, denies any significant pain or increased shortness of breath. Currently on 2 L nasal cannula with oxygen saturation 92%. Remains afebrile, hemodynamically stable. Chest x-ray reviewed, excellent reexpansion of the left lung with tiny left apical pneumothorax versus bulla present. Left pleural chest tube remains to waterseal, no air leak present. No new concerns. Objective - Vital Signs Vital signs: Vital Signs Temp 98.8 F 02/11/20 07:50 Pulse 80 02/11/20 08:46 Resp 20 02/11/20 07:50 BP 124/77 02/11/20 07:50 Pulse Ox 92 L 02/11/20 07:50 Intake & Output 02/10/20 02/11/20 02/11/20 18:59 06:59 18:59 Intake Total 240 477 890 Output Total 0 Balance 240 477 890 Weight 82.9 kg 84.1 kg Intake: IV 800 Sodium Chloride 0.9% 1, 800 000 ml @ 100 mls/hr IV . Q10H [facility] Rx#:[id number] Oral 240 477 90 Output: Chest Tube Drainage 0 Chest Tube Left Lateral 0 Chest Other: Voiding Method Toilet Toilet # Voids 1 1 # Bowel Movements 0 - Constitutional Constitutional Comment(s): Sitting up in bed, appears comfortable General appearance: Present: cooperative, no acute distress - Respiratory Details: Lungs sounds diminished bilaterally, left greater than right. Respirations even, nonlabored. Currently on 2 L nasal cannula with oxygen saturation 92%. Left pleural chest tube present continuous wall suction, minimal drainage, no air leak present. - Cardiovascular Details: S1, S2 present. Regular rate and rhythm, sinus rhythm on telemetry. Palpable peripheral pulses bilaterally. No edema present. No calf pain or tenderness noted. - Gastrointestinal Gastrointestinal Comment(s): Abdomen soft, nontender, nondistended. No organomegaly. Active bowel sounds present 4 quadrants. Tolerating diet. - Integumentary Integumentary Comment(s): Skin is warm and dry - Neurologic Neurologic: Present: CNII-XII intact - Musculoskeletal Musculoskeletal: Present: gait normal, strength equal bilaterally - Psychiatric Psychiatric: Present: A&O x's 3, appropriate affect, intact judgment & insight - Allied health notes Allied health notes reviewed: nursing - Labs CBC & Chem 7: 02/09/20 04:56 02/09/20 04:56 Labs: Abnormal Lab Results - Last 24 Hours (Table) 02/10/20 02/10/20 02/11/20 Range/Units 16:36 20:42 06:02 POC Glucose (mg/dL) 143 H 126 H 102 H (75-99) mg/dL - Imaging and Cardiology Chest x-ray: report reviewed, image reviewed Assessment and Plan Assessment: 1. Spontaneous left-sided pneumothorax, status post chest tube placement 2. Ongoing air leak secondary to pneumothorax, currently resolved 3. Bullous emphysema 4. Mildly severe to severe chronic obstructive pulmonary disease 5. Anticipated lung volume reduction surgery at [facility] 6. History of cerebrovascular accident 7. Diabetes mellitus 8. Coronary artery disease with stent placement 9. Hyperlipidemia 10. Chronic back pain 11. History of pulmonary embolism 12. Multiple other medical problems and comorbidities Plan: Left pleural chest tube discontinued without incident. Patient tolerated well. Will repeat chest x-ray in the morning Wean O2 as tolerated Continue DuoNeb updrafts, Symbicort Increase activity, ambulate as tolerated Medical management of other comorbidities per primary care service, cardiology If repeat chest x-ray is stable, may discharged home from pulmonology standpoint. Discharge instructions regarding care of chest tube insertion site/dressings placed on discharge plan I, the cosigning physician, performed a history & physical examination of the patient. Lungs sounds are diminished bilaterally, left greater than right. Maintaining good O2 saturations in the 90s on 2 L nasal cannula. I discussed the assessment and plan of care with my nurse practitioner, Tere Teixeira. I attest to the above note as dictated by her. Time with Patient: Greater than 30
--- NOTE | 2020-02-11 13:11 | P.PN ---
Subjective Progress Note Date: 02/11/20 This is a 69-year-old male patient of Abiodun Matthews and LEDY Ochoa with past history of chronic bullous emphysema, COPD stage III, chronic hypoxic respiratory failure, right sided pneumothorax requiring Thora vent placement, history of large right lower lobe segmental and subsegmental branch emboli diagnosed last summer. He is scheduled for a lung volume reduction surgery at [facility] in the near future. Patient was recently hospitalized in December for pulmonary embolism right side along with non-ST elevated myocardial infarction status post heart catheterization and PTCA and stenting of a totally occluded proximal RCA probable in-stent thrombosis. Patient was discharged at that time on eliquis, Plavix and aspirin. He states he has been doing well until this morning he woke up approximately 2 AM with chest pain similar to that when he had a blood clot in his stent in December. He took aspirin and [place] without any relief and then called an ambulance. He was also complaining of shortness of breath at the time and pain in his left shoulder and neck. Patient came into [facility] emergency center for evaluation. Pulse ox 93% on room air, afebrile, heart rate 117, blood pressure 131/99. Initial chest x-ray revealed large left-sided pneumothorax with mild tension. Emphysema. Patient underwent left-sided chest tube insertion and repeat chest x- ray revealed improving left-sided pneumothorax with chest tube placement estimated at 20%. Lower lobe infiltrate. COPD. Patient was admitted to the cardiac stepdown unit and consult in place with [facility] medicine and cardiology. 02/09: Pulse ox is 92% on 3 L, patient's been afebrile, heart rate 80s to 90s, blood pressure 104/57. 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 Blood sugars are running between 96 and 113, triglycerides 155, cholesterol 87, LDL 31, HDL 25. Patient found to have no air leak today. No cardiothoracic surgery consult was placed. Possible removal of chest tube tomorrow. Anticipate possible discharge by Saturday. 02/10: Yesterday, adjustments were made to his pain medications to decrease use the morphine or Dilaudid. The patient has had ongoing difficulties with pain co ntrol. Fortunately, chest tube has been removed this morning which should help his pain control significantly. Patient is afebrile, heart rate 86, blood pressure 124/77, pulse ox 92% on 2 L nasal cannula. Blood sugars running in the low 100s 102-143. Repeat chest x-ray reveals left-sided chest tube redemonstrated is now visualized over the periphery of the left lung. Thorax has improved with tiny left apical component. IV fluids discontinued. Repeat chest x-ray in the morning. Anticipate discharge home tomorrow. Objective - Vital Signs Vital signs: Vital Signs Temp 98.8 F 02/11/20 07:50 Pulse 80 02/11/20 08:46 Resp 20 02/11/20 07:50 BP 124/77 02/11/20 07:50 Pulse Ox 92 L 02/11/20 07:50 Intake & Output 02/10/20 02/11/20 02/11/20 18:59 06:59 18:59 Intake Total 240 477 890 Output Total 0 Balance 240 477 890 Weight 82.9 kg 84.1 kg Intake: IV 800 Sodium Chloride 0.9% 1, 800 000 ml @ 100 mls/hr IV . Q10H [facility] Rx#:[id number] Oral 240 477 90 Output: Chest Tube Drainage 0 Chest Tube Left Lateral 0 Chest Other: Voiding Method Toilet Toilet # Voids 1 1 # Bowel Movements 0 - Exam Review of Systems Constitutional: Denies chills, Denies fatigue, Denies fever, Denies lethargy, Denies malaise, Denies poor appetite, Denies weight loss Ears, nose, mouth and throat: Denies dysphagia, Denies nasal congestion, Denies nasal discharge, Denies sore throat, Denies vertigo Cardiovascular: Denies chest pain, Reports dyspnea on exertion, Reports lightheadedness, Reports shortness of breath, Denies palpitations, Denies syncope Respiratory: Denies dyspnea, Denies cough, Denies excessive sputum, Denies hemoptysis Gastrointestinal: Denies abdominal pain, Denies BRBPR, Denies coffee ground emesis, Denies diarrhea, Denies hematemesis, Denies hematochezia, Denies loss of appetite, Denies melena, Denies nausea, Denies vomiting Genitourinary: Denies dysuria, Denies urinary retention Musculoskeletal: Denies frequent falls, Denies gait dysfunction, Denies muscle weakness, Denies myalgias Integumentary: Denies pruritus, Denies rash, Denies wounds Neurological: Denies numbness, Denies weakness Psychiatric: Denies anxiety, Denies depression Endocrine: Denies fatigue, Denies weight change Physical examination Gen: This is a 69-year-old male. Patient is resting in bed and appears to be comfortable and in no acute distress. No respiratory distress is noted. HEENT: Head is atraumatic, normocephalic. Pupils equal, round. Sclerae is an icteric. NECK: Supple. No JVD. No lymphadenopathy. No thyromegaly. LUNGS: Few expiratory wheezes, diminished. No intercostal retractions. Left- sided chest tube removed. HEART: Regular rate and rhythm. no murmur. ABDOMEN: Soft. Bowel sounds are present. No masses. No tenderness. EXTREMITIES: No pedal edema. No calf tenderness. Dorsalis pedis +2 bilaterally. NEUROLOGICAL: Patient is awake, alert and oriented x3. Cranial nerves 2 through 12 are grossly intact. - Labs CBC & Chem 7: 02/09/20 04:56 02/09/20 04:56 Labs: Abnormal Lab Results - Last 24 Hours (Table) 02/10/20 02/10/20 02/11/20 Range/Units 16:36 20:42 06:02 POC Glucose (mg/dL) 143 H 126 H 102 H (75-99) mg/dL Assessment and Plan Plan: 1. Spontaneous left-sided pneumothorax status post chest tube placement and removal. Patient admitted to the cardiac stepdown unit. Consults with cardiology and pulmonary medicine appreciated. 2. History of Pulmonary embolism. Continue eliquis. 3. Recent hospitalization for non-ST elevated myocardial infarction status post stenting of a totally occluded RCA possibly secondary to in-stent thrombosis and previous mid circumflex stenting. Cardiology consult appreciated. Continue eliquis 5 mg twice daily, Plavix 75 mg daily, Lopressor increased to 25 mg twice daily. Continue atorvastatin 80 mg at bedtime. 3. Chronic bullous emphysema, COPD stage III. 4. Chronic hypoxic respiratory failure. Continue oxygen therapy. 5. Diabetes mellitus type 2. Resume metformin 500 mg twice daily. 6. Hyperlipidemia. Continue Lipitor. 7. Benign prostatic hypertrophy. Continue Proscar and Flomax. 8. Diabetic neuropathy. Continue gabapentin 600 mg in the morning and 1200 at bedtime. 9. Hypertension. Continue Lopressor. 10. Gastroesophageal reflux disease. Continue Protonix. 11. DVT prophylaxis. Eliquis. Discharge plan: Return home on Saturday most likely. Impression and plan of care have been directed as dictated by the signing physician. Cierra Lazo nurse practitioner acting as scribe for signing physician.
[2020-02-11] MEDS: FINASTERIDE 5 MG TAB PO SCH (20:09)
[2020-02-11] MEDS: GABAPENTIN 400 MG CAP PO SCH (20:09)
[2020-02-11] MEDS: ALPRAZolam 0.5 MG TAB PO SCH (20:09)
[2020-02-11] MEDS: ATORVASTATIN 80 MG TAB PO SCH (20:09)
[2020-02-11] MEDS: traZODone HCL 50 MG TAB PO SCH (20:09)
[2020-02-11] MEDS: metFORMIN 500 MG TAB PO SCH (20:13)
[2020-02-11 20:40] LABS: Glucose,Whole Blood 97 mg/dL (75-99)
[2020-02-11] MEDS: HYDROcodone/APAP 5-325MG 1 EACH TAB PO PRN (22:28)
[2020-02-12] MEDS: HYDROcodone/APAP 5-325MG 1 EACH TAB PO SCH ×2 (01:50→09:47)
[2020-02-12] MEDS: MORPHINE SULFATE 4 MG/ML SYRINGE IVP PRN (05:59)
[2020-02-12] MEDS: PANTOPRAZOLE 40 MG TABLET PO SCH (05:59)
[2020-02-12 06:06] LABS: Glucose,Whole Blood 101 mg/dL (75-99)
[2020-02-12] MEDS: IPRATROPIUM-ALBUTEROL 3 ML NEB INHALATION SCH ×2 (07:56→11:03)
[2020-02-12] MEDS: SYMBICORT 160-4.5 MCG INHALER INHALATION SCH (07:56)
--- NOTE | 2020-02-12 08:46 | XR ---
EXAMINATION TYPE: XR chest 2V DATE OF EXAM: 02/12/2020 COMPARISON: Prior chest x-ray 02/11/2020 HISTORY: Pneumothorax, chest tube removal TECHNIQUE: Frontal and lateral views of the chest are obtained. FINDINGS: There is been interval removal of the left-sided chest tube. Subcutaneous emphysema persis ts. Minimal left apical pneumothorax is again noted. Pleural parenchymal changes are unchanged, persi stent apical bullous emphysematous changes are present. Heart size is stable. There are overlying car diac leads. IMPRESSION: No evident complication status post chest tube removal.
[2020-02-12 08:56] VITALS: RESP 16
[2020-02-12] MEDS: GABAPENTIN 300 MG CAP PO SCH (09:47)
[2020-02-12] MEDS: TAMSULOSIN 0.4 MG CAP.ER.24H PO SCH (09:47)
[2020-02-12] MEDS: APIXABAN 5 MG TAB PO SCH (09:48)
[2020-02-12] MEDS: METOPROLOL TARTRATE 25 MG TAB PO SCH (09:48)
[2020-02-12] MEDS: FUROSEMIDE 20 MG TAB PO SCH (09:48)
[2020-02-12] MEDS: LEVOFLOXACIN 750 MG TAB PO SCH (09:48)
[2020-02-12] MEDS: CLOPIDOGREL 75 MG TAB PO SCH (09:48)
[2020-02-12] MEDS: metFORMIN 500 MG TAB PO SCH (09:48)
[2020-02-12] MEDS: ESCITALOPRAM 10 MG TAB PO SCH (09:48)
--- NOTE | 2020-02-12 11:40 | P.PN ---
Subjective Progress Note Date: 02/12/20 Principal diagnosis: This is a 69-year-old patient who typically sees Dr. Rascon in the office. He is scheduled to have a lung volume reduction surgery done by Dr. Hou at [facility] in the near future. He complained of chest pain and shortness of breath which came on suddenly when sleeping. He thought he was having a heart attack as he does have underlying cardiac disease. For that reason he came to [facility] emergency room for evaluation and treatment. On chest x-ray he was found to have a complete collapse of the left lung. A chest tube was placed by the ER physicians with almost complete reexpansion of the lung. Left chest tube remains in place with positive air leak. The patient was admitted with consultation placed to Dr. Villagomez for hypoxia and Dr. Gresham for chest pain. The patient was seen and examined today 02/10/2020 on the cardiac stepdown unit with Dr. Villagomez. He is sitting up in bed and appears comfortable. Denies significant pain or increased shortness of breath. Currently on 3 L nasal cannula with oxygen saturation 93%. Remains afebrile. Hemodynamically stable. Lipid profile drawn with elevated triglycerides, otherwise no new labs or chest x-rays completed today. Left pleural chest tube remains in place to continuous wall suction, no air leak present with minimal drainage. No new concerns. The patient was seen and examined today 02/11/2020 and the cardiac stepdown unit with Dr. Villagomez. He is sitting up in the bed and appears comfortable, denies any significant pain or increased shortness of breath. Currently on 2 L nasal cannula with oxygen saturation 92%. Remains afebrile, hemodynamically stable. Chest x-ray reviewed, excellent reexpansion of the left lung with tiny left apical pneumothorax versus bulla present. Left pleural chest tube remains to waterseal, no air leak present. No new concerns. The patient was seen and examined today 02/12/2020 on the cardiac stepdown unit with Dr. Villagomez. He denies significant shortness of breath, does complain of some generalized pain to the left chest wall where his chest tube was. Chest tube was discontinued yesterday without incident. He is currently on 3 L nasal cannula with oxygen saturation 91%. Remains afebrile, hemodynamically stable. Chest x-ray from this morning reviewed, minimal left apical pneumothorax demonstrated, stable. No new labs this morning. Remains on DuoNeb updrafts, Symbicort. No new concerns. Objective - Vital Signs Vital signs: Vital Signs Temp 98.3 F 02/12/20 08:00 Pulse 72 02/12/20 11:10 Resp 16 02/12/20 08:00 BP 113/63 02/12/20 08:00 Pulse Ox 91 L 02/12/20 08:00 Intake & Output 02/11/20 02/12/20 02/12/20 18:59 06:59 18:59 Intake Total 1130 540 Output Total 0 Balance 1130 540 Weight 82 kg Intake: IV 800 Sodium Chloride 0.9% 1, 800 000 ml @ 100 mls/hr IV . Q10H [facility] Rx#:[id number] Oral 330 540 Output: Chest Tube Drainage 0 Chest Tube Left Lateral 0 Chest Other: Voiding Method Toilet Toilet Toilet # Voids 1 2 1 - Constitutional Constitutional Comment(s): Sitting up in bed in no acute distress, appears very comfortable. General appearance: Present: cooperative, no acute distress - Respiratory Details: Lungs sounds diminished bilaterally, left greater than right. Respirations even, nonlabored. Currently on 2 L nasal cannula with oxygen saturation 91%. - Cardiovascular Details: S1, S2 present. Regular rate and rhythm, sinus rhythm on telemetry. Palpable peripheral pulses bilaterally. No edema present. No calf pain or tenderness noted. - Gastrointestinal Gastrointestinal Comment(s): Abdomen soft, nontender, nondistended. No organomegaly. Active bowel sounds present 4 quadrants. Tolerating diet. - Integumentary Integumentary Comment(s): Skin is warm and dry. Left chest wall chest tube site covered with dry intact dressing. - Neurologic Neurologic: Present: CNII-XII intact - Musculoskeletal Musculoskeletal: Present: gait normal, strength equal bilaterally - Psychiatric Psychiatric: Present: A&O x's 3, appropriate affect, intact judgment & insight - Allied health notes Allied health notes reviewed: nursing - Labs CBC & Chem 7: 02/09/20 04:56 02/09/20 04:56 Labs: Abnormal Lab Results - Last 24 Hours (Table) 02/12/20 Range/Units 06:05 POC Glucose (mg/dL) 101 H (75-99) mg/dL - Imaging and Cardiology Chest x-ray: report reviewed, image reviewed Assessment and Plan Assessment: 1. Spontaneous left-sided pneumothorax, status post chest tube placement. Chest tube removed 02/11/2020 2. Ongoing air leak secondary to pneumothorax, currently resolved 3. Bullous emphysema 4. Mildly severe to severe chronic obstructive pulmonary disease 5. Anticipated lung volume reduction surgery at [facility] 6. History of cerebrovascular accident 7. Diabetes mellitus 8. Coronary artery disease with stent placement 9. Hyperlipidemia 10. Chronic back pain 11. History of pulmonary embolism 12. Multiple other medical problems and comorbidities Plan: Repeat chest x-ray reviewed, stable Wean O2 as tolerated Continue DuoNeb updrafts, Symbicort Recommend discontinuing IV narcotics Increase activity, ambulate as tolerated Medical management of other comorbidities per primary care service, cardiology May discharged home from pulmonology standpoint. Discharge instructions regarding care of chest tube insertion site/dressings placed on discharge plan I, the cosigning physician, performed a history & physical examination of the patient. Lungs sounds are diminished bilaterally, left greater than right. Maintaining good O2 saturations in the 90s on 3 L nasal cannula. I discussed the assessment and plan of care with my nurse practitioner, Tere Teixeira. I attest to the above note as dictated by her. Time with Patient: Greater than 30
[2020-02-12 11:51] VITALS: BP 97/66; PULSE 80; TEMP 98.2
[2020-02-12] MEDS: HYDROcodone/APAP 5-325MG 1 EACH TAB PO PRN (11:53)
[2020-02-12 12:00] LABS: Glucose,Whole Blood 101 mg/dL (75-99)
--- NOTE | 2020-02-12 12:02 | P.DS ---
Providers Date of admission: 02/09/20 06:19 Expected date of discharge: 02/12/20 Attending physician: Kevin Dennison Consults: 02/09/20 06:19 Consult Physician Routine Consulting Provider: Willy Villagomez Consult Reason/Comments: hypoxia Do you want consulting provider notified?: Yes Consult Physician Urgent Consulting Provider: Judith Gresham Consult Reason/Comments: cp Do you want consulting provider notified?: Yes Primary care physician: Dyana Giordano [facility] Course: This is a 69-year-old male patient of Abiodun Matthews and LEDY Ochoa with past history of chronic bullous emphysema, COPD stage III, chronic hypoxic respiratory failure, right sided pneumothorax requiring Thora vent placement, history of large right lower lobe segmental and subsegmental branch emboli diagnosed last summer. He is scheduled for a lung volume reduction surgery at [facility] in the near future. Patient was recently hospitalized in December for pulmonary embolism right side along with non-ST elevated myocardial infarction status post heart catheterization and PTCA and stenting of a totally occluded proximal RCA probable in-stent thrombosis. Patient was discharged at that time on eliquis, Plavix and aspirin. He states he has been doing well until this morning he woke up approximately 2 AM with chest pain similar to that when he had a blood clot in his stent in December. He took aspirin and [place] without any relief and then called an ambulance. He was also complaining of shortness of breath at the time and pain in his left shoulder and neck. Patient came into [facility] emergency center for evaluation. Pulse ox 93% on room air, afebrile, heart rate 117, blood pressure 131/99. Initial chest x-ray revealed large left-sided pneumothorax with mild tension. Emphysema. Patient underwent left-sided chest tube insertion and repeat chest x- ray revealed improving left-sided pneumothorax with chest tube placement estimated at 20%. Lower lobe infiltrate. COPD. Patient was admitted to the cardiac stepdown unit and consult in place with pulmonary medicine and cardiology. 02/09: Pulse ox is 92% on 3 L, patient's been afebrile, heart rate 80s to 90s, blood pressure 104/57. playground monitor is sinus rhythm. Blood sugars are running between 96 and 113, triglycerides 155, cholesterol 87, LDL 31, HDL 25. Patient found to have no air leak today. No cardiothoracic surgery consult was placed. Possible removal of chest tube tomorrow. Anticipate possible discharge by Saturday. 02/10: Yesterday, adjustments were made to his pain medications to decrease use the morphine or Dilaudid. The patient has had ongoing difficulties with pain control. Fortunately, chest tube has been removed this morning which should help his pain control significantly. Patient is afebrile, heart rate 86, blood pressure 124/77, pulse ox 92% on 2 L nasal cannula. Blood sugars running in the low 100s 102-143. Repeat chest x-ray reveals left-sided chest tube redemonstrated is now visualized over the periphery of the left lung. Thorax has improved with tiny left apical component. IV fluids discontinued. Repeat chest x-ray in the morning. Anticipate discharge home tomorrow. 02/11: Patient has been afebrile, heart rate 76, blood pressure 107/65, pulse ox 97% on 2 L nasal cannula. Blood sugars are running between 97 and 126. Repeat chest x-ray reveals no consultations status post chest tube removal. There is minimal left apical pneumothorax. Patient has been seen bipolar medicine cleared for discharge. Patient is complaining of pain in his hips and legs possibly related to statin. Patient to discuss with Dr. LEDY Ochoa regarding reducing statin dose. Patient will be discharged home today in stable condition. Discharge diagnoses: 1. Spontaneous left-sided pneumothorax status post chest tube placement and removal. 2. History of Pulmonary embolism. 3. Recent hospitalization for non-ST elevated myocardial infarction status post stenting of a totally occluded RCA possibly secondary to in-stent thrombosis and previous mid circumflex stenting. 3. Chronic bullous emphysema, COPD stage III. 4. Chronic hypoxic respiratory failure. 5. Diabetes mellitus type 2. 6. Hyperlipidemia. 7. Benign prostatic hypertrophy. 8. Diabetic neuropathy. 9. Hypertension. Discharge plan: home Impression and plan of care have been directed as dictated by the signing physician. Cierra Lazo nurse practitioner acting as scribe for signing physician. Patient Condition at Discharge: Good Plan - Discharge Summary Discharge Rx Participant: No New Discharge Prescriptions: Continue Gabapentin [Neurontin] 600 mg PO QAM Finasteride [Proscar] 5 mg PO HS traZODone HCL 150 mg PO HS Gabapentin 1,200 mg PO HS Albuterol Nebulized [Ventolin Nebulized] 2.5 mg INHALATION RT-QID PRN PRN Reason: Shortness Of Breath ALPRAZolam [Xanax] 0.5 mg PO HS Tiotropium 18 Mcg/Puff [Spiriva] 1 puff INHALATION RT-BID Budesonide-Formot 160-4.5 Mcg [Symbicort 160-4.5 Mcg Inhaler] 2 puff INHALATION RT-BID Omeprazole Magnesium [PriLOSEC OTC] 20 mg PO BID HYDROcodone/APAP 5-325MG [[place] 5-325] 1 tab PO TID Furosemide [Lasix] 20 mg PO DAILY #90 tab Atorvastatin [Lipitor] 80 mg PO HS #90 tab Metoprolol Tartrate [Lopressor] 12.5 mg PO BID #90 tab Nitroglycerin Sl Tabs [Nitrostat] 0.4 mg SUBLINGUAL Q5M PRN #25 tab PRN Reason: Chest Pain Tamsulosin HCl [Flomax] 0.4 mg PO BID Apixaban [Eliquis] 5 mg PO BID #60 tab Clopidogrel [Plavix] 75 mg PO DAILY #30 tab metFORMIN HCL [Glucophage] 500 mg PO BID #0 Escitalopram Oxalate [Lexapro] 10 mg PO DAILY Discharge Medication List Finasteride [Proscar] 5 mg PO HS 10/21/14 [History] Gabapentin [Neurontin] 600 mg PO QAM 10/21/14 [History] Gabapentin 1,200 mg PO HS 04/09/16 [History] traZODone HCL 150 mg PO HS 04/09/16 [History] Albuterol Nebulized [Ventolin Nebulized] 2.5 mg INHALATION RT-QID PRN 06/12/19 [History] ALPRAZolam [Xanax] 0.5 mg PO HS 07/13/19 [History] Budesonide-Formot 160-4.5 Mcg [Symbicort 160-4.5 Mcg Inhaler] 2 puff INHALATION RT-BID 12/29/19 [History] HYDROcodone/APAP 5-325MG [[place] 5-325] 1 tab PO TID 12/29/19 [History] Omeprazole Magnesium [PriLOSEC OTC] 20 mg PO BID 12/29/19 [History] Tiotropium 18 Mcg/Puff [Spiriva] 1 puff INHALATION RT-BID 12/29/19 [History] Atorvastatin [Lipitor] 80 mg PO HS #90 tab 12/31/19 [Rx] Furosemide [Lasix] 20 mg PO DAILY #90 tab 12/31/19 [Rx] Metoprolol Tartrate [Lopressor] 12.5 mg PO BID #90 tab 12/31/19 [Rx] Nitroglycerin Sl Tabs [Nitrostat] 0.4 mg SUBLINGUAL Q5M PRN #25 tab 12/31/19 [Rx] Tamsulosin HCl [Flomax] 0.4 mg PO BID 01/12/20 [History] Apixaban [Eliquis] 5 mg PO BID #60 tab 01/14/20 [Rx] Clopidogrel [Plavix] 75 mg PO DAILY #30 tab 01/14/20 [Rx] metFORMIN HCL [Glucophage] 500 mg PO BID #0 01/14/20 [Rx] Escitalopram Oxalate [Lexapro] 10 mg PO DAILY 02/09/20 [History] Follow up Appointment(s)/Referral(s): Dyana Giordano MD [Primary Care Provider] - 1 Week Maximo Rascon MD [STAFF PHYSICIAN] - 1 Week Activity/Diet/Wound Care/Special Instructions: DISCHARGE INSTRUCTIONS: 1. No driving for 2 weeks, or until physician gives their ok. 2. No lifting, pushing, or pulling more than 10 pounds for 2 weeks. The physician will advise of any restriction changes. 3. Continue pain control per as needed orders. Alternate acetaminophen (Tylenol) and ibuprofen (Motrin/Advil) for pain. 4. Continue with incentive spirometry and splinting until otherwise directed by the physician. 5. Leave chest tube dressing for 48 hours. After that, remove all dressings and shower daily. 6. Routine incision care. No powders, lotions, ointments on incisions. Discharge Disposition: HOME SELF-CARE
--- NOTE | 2020-02-15 14:31 | CDI ---
Documentation Clarification Form Date: 02/15/20 From: Jessica Park Phone: If you have a question about this query, please contact Pretty Weber, [employer] at [phone] between 8am and 5pm. Admit Date: 02/09/20 Discharge Date:02/12/20 Patient Name: Deandre Duong Visit Number: [id number] ATTENTION: The Clinical Documentation Specialists (CDI) and [facility] Coding Staff appreciate your assistance in clarifying documentation. Please respond to the clarification below the line at the bottom and electronically sign. The CDI & [facility] Coding staff will review the response and follow-up if needed. Please note: Queries are made part of the Legal Health Record. If you have any questions, please contact the author of this message via ITS. Dear Dr. Dennison Patient was recently hospitalized in December for non-ST elevated myocardial infarction status post heart catheterization and PTCA and stenting of totally occluded proximal RCA probable in-stent stenosis is documented in the H&P, discharge summary and Michela's 02/09 - 02/10 progress notes. Patient admitted with pneumothorax Patient History/Risk Factors: CAD, hypertension, Emphysema, a-fib Clinical Indicators: Shortness of breath and left-sided chest pain Troponin: <0.012, <0.012 EKG Results: Sinus tachycardia Treatment: Chest tube In order to capture the severity of condition and necessary documentation specificity, please clarify: Age of infarction if known XX Acute VA (within the last 4 weeks) Old VA (VA more than 4 weeks old) Specific date if known: Unable to determine MTDD
== END 2020-02-12 15:15 | disposition home or self-care (01) | DRG 199 ==
LOC: EC 04:44 → 3SCARD 06:19
PROVIDERS: ADMIT Internal Medicine Geriatric Medicine; ATTEND Internal Medicine Geriatric Medicine
PROC: 0W9B30Z Drainage of Left Pleural Cavity with Drainage Device, Percutaneous Approach (ICD-10-PCS; principal; 2020-02-09)
DX: J93.0 Spontaneous tension pneumothorax (principal); I21.4 Non-ST elevation (NSTEMI) myocardial infarction; J96.11 Chronic respiratory failure with hypoxia; J93.82 Other air leak; E11.40 Type 2 diabetes mellitus with diabetic neuropathy, unspecified; E78.5 Hyperlipidemia, unspecified; G25.81 Restless legs syndrome; G43.909 Migraine, unspecified, not intractable, without status migrainosus; G89.29 Other chronic pain; H91.93 Unspecified hearing loss, bilateral; I10 Essential (primary) hypertension; I25.10 Atherosclerotic heart disease of native coronary artery without angina pectoris; I48.0 Paroxysmal atrial fibrillation; J43.9 Emphysema, unspecified; K21.9 Gastro-esophageal reflux disease without esophagitis; M19.90 Unspecified osteoarthritis, unspecified site; N40.0 Benign prostatic hyperplasia without lower urinary tract symptoms; K57.90 Diverticulosis of intestine, part unspecified, without perforation or abscess without bleeding; M54.41 Lumbago with sciatica, right side; M54.42 Lumbago with sciatica, left side; M25.551 Pain in right hip; M25.552 Pain in left hip; M79.605 Pain in left leg; M79.604 Pain in right leg; T50.995A Adverse effect of other drugs, medicaments and biological substances, initial encounter; Z79.01 Long term (current) use of anticoagulants; Z79.02 Long term (current) use of antithrombotics/antiplatelets; Z79.51 Long term (current) use of inhaled steroids; Z79.84 Long term (current) use of oral hypoglycemic drugs; Z79.899 Other long term (current) drug therapy; Z86.711 Personal history of pulmonary embolism; Z86.73 Personal history of transient ischemic attack (TIA), and cerebral infarction without residual deficits; Z87.891 Personal history of nicotine dependence; Z95.5 Presence of coronary angioplasty implant and graft; Z87.01 Personal history of pneumonia (recurrent)
CPT/HCPCS: 31500; 36415; 71045; 71046; 80053; 80061; 82550; 82553; 83690; 83735; 83880; 84484; 85025; 85610; 85730; 93005; 94640; 96374; 96375; 96376; 99291

== ENCOUNTER → 2020-02-22 | Outpatient (CLI) | payer MEDICARE ==
--- NOTE | 2020-02-22 10:38 | XR ---
EXAMINATION TYPE: XR chest 2V DATE OF EXAM: 02/22/2020 COMPARISON: 02/12/2020 HISTORY: Recent left-sided pneumothorax. History of emphysema. TECHNIQUE: Frontal and lateral views of the chest are obtained. FINDINGS: There is improvement of the previously seen trace apical left pneumothorax. Bullous emphys ematous changes are seen of the lung apices. Slightly worsening linear right basilar airspace disease is likely on the basis of atelectasis with more confluent left basilar airspace disease obscuring th e left heart border. No sizable pleural effusion. Stable cardiomediastinal silhouette. No acute osseo us pathology. IMPRESSION: 1. Improving left apical pneumothorax, trace. 2. Worsening bibasilar airspace disease, possibly atelectasis.
== END | disposition home or self-care (01) ==
LOC: RADXRMAIN 09:55
PROVIDERS: ATTEND Family Medicine
DX: J98.4 Other disorders of lung (principal); J93.9 Pneumothorax, unspecified
CPT/HCPCS: 71046

== ENCOUNTER → 2020-02-24 | Outpatient (CLI) | payer MEDICARE ==
--- NOTE | 2020-02-24 12:03 | XR ---
EXAMINATION TYPE: XR chest 2V DATE OF EXAM: 02/24/2020 COMPARISON: 02/22/2020 INDICATION: Previous spontaneous pneumothorax TECHNIQUE: Frontal and lateral views of the chest are obtained. FINDINGS: The heart size is normal. The pulmonary vasculature is normal. Emphysematous changes are present especially noted in the right upper lung field. Increased lung irvin ings are in the left lung base and lingula and along the right diaphragm. These findings appear stabl e. Attention is paid to the left apex. No pneumothorax is evident this time.. IMPRESSION: 1. No pneumothorax is evident. 2. COPD. 3. Lingular, left basilar, and right lower lobe infiltrates. Correlate for atelectasis and pneumonia. Consider atypical pneumonia within the differential. Findings are similar to 02/22/2020.
== END | disposition home or self-care (01) ==
LOC: RADXRMAIN 11:36
PROVIDERS: ATTEND Family Medicine
DX: J44.9 Chronic obstructive pulmonary disease, unspecified (principal); R91.8 Other nonspecific abnormal finding of lung field
CPT/HCPCS: 71046

== ENCOUNTER 2020-03-24 12:06 | Inpatient (IN) | payer MEDICARE ==
--- NOTE | 2020-03-24 12:48 | ED ---
General Adult HPI - General Chief complaint: Shortness of Breath Stated complaint: Pneumothorax Time Seen by Provider: 03/24/20 12:21 Source: patient, RN notes reviewed, old records reviewed Mode of arrival: ambulatory Limitations: no limitations - History of Present Illness Initial comments: 69-year-old male presenting with right-sided chest pain. Patient had developed chest pain yesterday evening, he had an x-ray performed by his primary care physician earlier today and was noted to have a pneumothorax on the right. He has a history of recurrent pneumothorax on both the right and the left status post multiple chest tubes. He has severe emphysema and follows regularly with pulmonology. He denies central chest pain. He reports mild cough. No abdominal pain nausea or vomiting. No fever. - Related Data Home Medications Medication Instructions Recorded Confirmed Finasteride [Proscar] 5 mg PO HS 10/21/14 02/09/20 Gabapentin [Neurontin] 600 mg PO QAM 10/21/14 02/09/20 Gabapentin 1,200 mg PO HS 04/09/16 02/09/20 traZODone HCL 150 mg PO HS 04/09/16 02/09/20 Albuterol Nebulized [Ventolin 2.5 mg INHALATION RT-QID PRN 06/12/19 02/09/20 Nebulized] ALPRAZolam [Xanax] 0.5 mg PO HS 07/13/19 02/09/20 Budesonide-Formot 160-4.5 Mcg 2 puff INHALATION RT-BID 12/29/19 02/09/20 [Symbicort 160-4.5 Mcg Inhaler] HYDROcodone/APAP 5-325MG [[place] 1 tab PO TID 12/29/19 02/09/20 5-325] Omeprazole Magnesium [PriLOSEC OTC] 20 mg PO BID 12/29/19 02/09/20 Tiotropium 18 Mcg/Puff [Spiriva] 1 puff INHALATION RT-BID 12/29/19 02/09/20 Tamsulosin HCl [Flomax] 0.4 mg PO BID 01/12/20 02/09/20 Escitalopram Oxalate [Lexapro] 10 mg PO DAILY 02/09/20 02/09/20 Previous Rx's Medication Instructions Recorded Atorvastatin [Lipitor] 80 mg PO HS #90 tab 12/31/19 Furosemide [Lasix] 20 mg PO DAILY #90 tab 12/31/19 Metoprolol Tartrate [Lopressor] 12.5 mg PO BID #90 tab 12/31/19 Nitroglycerin Sl Tabs [Nitrostat] 0.4 mg SUBLINGUAL Q5M PRN #25 tab 12/31/19 Apixaban [Eliquis] 5 mg PO BID #60 tab 01/14/20 Clopidogrel [Plavix] 75 mg PO DAILY #30 tab 01/14/20 metFORMIN HCL [Glucophage] 500 mg PO BID #0 01/14/20 Allergies Allergy/AdvReac Type Severity Reaction Status Date / Time No Known Allergies Allergy Verified 03/24/20 12:24 Review of Systems ROS Statement: Those systems with pertinent positive or pertinent negative responses have been documented in the HPI. ROS Other: All systems not noted in ROS Statement are negative. Past Medical History Past Medical History: COPD, CVA/TIA, Diabetes Mellitus, GERD/Reflux, Hearing Disorder / Deafness, Hyperlipidemia, Myocardial Infarction (IN), Osteoarthritis (OA), Pneumonia, Prostate Disorder, Pulmonary Embolus (PE), Respiratory Disorder Additional Past Medical History / Comment(s): pulmonary embolism/R lower lobe pneumonia/acute hypoxic failure. Portal bollous emphysema. diabetes, low back pain with bilateral sciatica; restless leg syndrome; migraines, TIA , BPH, hard of hearing bilaterally, , diverticulosis. New onset diabetes 08/11/19, multiple pneumothorax History of Any Multi-Drug Resistant Organisms: None Reported Past Surgical History: Heart Catheterization With Stent, Hernia Repair, Orthopedic Surgery, Tonsillectomy Additional Past Surgical History / Comment(s): Septoplasty/ESSS, EGD, colonoscopy with benign polyp, R inguinal hernia, umbilical hernia, pain clinic procedures for back pain, atilio fundloplication. Past Anesthesia/Blood Transfusion Reactions: No Reported Reaction Date of Last Stent Placement:: Past Psychological History: No Psychological Hx Reported Smoking Status: Former smoker Past Alcohol Use History: None Reported Past Drug Use History: None Reported - Past Family History Father History Unknown: Yes Family Medical History: No Reported History, Unable to Obtain Additional Family Medical History / Comment(s): Pt was adopted. Mother History Unknown: Yes Additional Family Medical History / Comment(s): Pt was adopted. Daughter(s) Additional Family Medical History / Comment(s): Children do not have any major medical problems. No history of blood clots. General Exam Limitations: no limitations General appearance: alert, in no apparent distress Head exam: Present: atraumatic, normocephalic Eye exam: Present: normal appearance, PERRL ENT exam: Present: normal exam Neck exam: Present: normal inspection. Absent: tenderness, meningismus Respiratory exam: Present: normal lung sounds bilaterally. Absent: respiratory distress, wheezes Cardiovascular Exam: Present: regular rate, normal rhythm GI/Abdominal exam: Present: soft. Absent: distended, tenderness, guarding Extremities exam: Present: normal inspection, full ROM. Absent: pedal edema Neurological exam: Present: alert, oriented X3, CN II-XII intact. Absent: motor sensory deficit Psychiatric exam: Present: normal affect, normal mood Course Vital Signs 03/24/20 03/24/20 12:20 12:58 Temperature 98.6 F Pulse Rate 87 Respiratory 18 16 Rate Blood Pressure 109/71 O2 Sat by Pulse 91 L Oximetry - Reevaluation(s) Reevaluation #1: 03/24/[address] Villagomez, he is familiar with this patient, recommends conservative treatment with supplemental oxygen, no chest tube at this time. EKG Findings - EKG Comments: EKG Findings:: EKG: Normal sinus rhythm, rate of 74, NM interval 182, QRS duration 86, QTC 446, no ST segment elevation. Medical Decision Making - Medical Decision Making 69-year-old male with recurrent pneumothorax presenting with pneumothorax on outpatient x-ray. X-rays reviewed, there is a 10-15% pneumothorax on the right. Patient's symptoms have been present for close to 24 hours. I did discuss case with pulmonology Dr. Villagomez was familiar with this patient. At this time we will hold off on chest tube, conservative measures including supple no oxygen and repeat chest x-ray. Patient is agreeable with plan, no respiratory distress, very comfortable. Admitted to internal medicine with pulmonology on consult. Laboratory testing has been performed, these results are pending. Disposition Clinical Impression: Pneumothorax, right Disposition: ADMITTED IP TO THIS [facility] Condition: Stable Is patient prescribed a controlled substance at d/c from ED?: No Referrals: Dyana Giordano MD [Primary Care Provider] - 1-2 days Decision to Admit Reason: Admit from EC Decision Date: 03/24/20 Decision Time: 13:25
[2020-03-24 13:00] VITALS: RESP 16
[2020-03-24] MEDS ORDERED: NALOXONE 0.4 MG/ML 1 ML VIAL IV PRN (13:20)
[2020-03-24] MEDS ORDERED: ACETAMINOPHEN TAB 325 MG TAB PO PRN (13:20)
[2020-03-24 13:25] LABS: Partial Thromboplastin Time 26.2 sec (22.0-30.0)
[2020-03-24 13:34] LABS: ALT 14 U/L (4-49); AST 25 U/L (17-59); African American GFR (CKD) >90 (>60 ml/min/1.73 sqM); Albumin 3.4 g/dL (3.5-5.0); Alkaline Phosphatase 103 U/L (38-126); Anion Gap 5 mmol/L; Blood Urea Nitrogen 17 mg/dL (9-20); Calcium 8.7 mg/dL (8.4-10.2); Carbon Dioxide 28 mmol/L (22-30); Chloride 103 mmol/L (98-107); Glucose 102 mg/dL (74-99); Non-African American GFR(CKD) 89 (>60 ml/min/1.73 sqM); Potassium 4.6 mmol/L (3.5-5.1); Sodium 136 mmol/L (137-145); Total Bilirubin 0.5 mg/dL (0.2-1.3); Total Protein 6.3 g/dL (6.3-8.2)
[2020-03-24 13:41] LABS: Basophils # (A) 0.1 k/uL (0-0.2); Basophils % (A) 1 %; Eosinophils # (A) 0.1 k/uL (0-0.7); Eosinophils % (A) 1 %; HCT 41.3 % (39.0-53.0); HGB 12.7 gm/dL (13.0-17.5); Hypochromasia Moderate; Lymphocytes % (A) 10 %; MCH 26.3 pg (25.0-35.0); MCHC 30.7 g/dL (31.0-37.0); MCV 85.7 fL (80.0-100.0); Mean Platelet Volume 7.2; Monocytes # (A) 0.8 k/uL (0-1.0); Monocytes % (A) 8 %; Neutrophils # (A) 7.9 k/uL (1.3-7.7); Neutrophils % (A) 79 %; Platelet Count 265 k/uL (150-450); RBC 4.82 m/uL (4.30-5.90); RDW 13.7 % (11.5-15.5)
[2020-03-24] MEDS: HYDROmorphone 0.5 MG/0.5 ML SYRINGE IVP PRN ×4 (14:02→23:49)
[2020-03-24 22:21] LABS: Glucose,Whole Blood 119 mg/dL (75-99)
--- NOTE | 2020-03-24 23:15 | P.HPIM ---
History of Present Illness H&P Date: 03/24/20 Chief Complaint: Severe right-sided chest pain, spontaneous pneumothorax, ad vanced COPD, rec 69-year-old male one of Dr. Silverman's patient who was the hospital last in January for another pneumothorax patient is known to have advanced COPD with multiple bullous on the surface part of the lung with multiple recurrent pneumothorax patient is scheduled at [facility] to go for partial lung reduction part of the improvement for his COPD and to reduce the are of pneumothorax. Patient presented to the emergency department at [facility] today because he developed to have right-sided chest pain since yesterday become severely worse and ended up having worsening hypoxia and worsening symptoms with mild cough and worsening wheezes. Was seen and evaluated chest x-ray of his pulmonary doctor today showed right sided pneumothorax with suspicion of the left side as well anayeli wright ended up coming to the emergency department and his pneumothorax was less than 15% decided not to do chest tube was evaluated by pulmonary and decided to keep him in the hospital repeat chest x-ray if pneumothorax become larger would require chest tube. Since he left the hospital last time no change no rehospitalization his appointment at [facility] was delay because of the COVID 19. Review of Systems CONSTITUTIONAL: Well-developed no acute respiratory distress. EYES: No icterus sclerae, no conjunctivitis. EARS, NOSE, MOUTH, THROAT, and FACE: No sore throat, lymphadenopathy, carotid bruits or deformity. RESPIRATORY: Severe shortness of breath with chest pain cough and wheezes. CARDIOVASCULAR: Positive PND orthopnea and palpitation GASTROINTESTINAL: No Abd pain, Nausea or vomiting, no Diarrhea or constipation, No GI Bleed, no distention or masses. GENITOURINARY: Negative for Hematuria or UTI, no kidney stones. INTEGUMENT/BREAST: Negative for any muscular injury with mild osteoarthritis.. HEMATOLOGIC/LYMPHATIC: Negative for bleed or purpura. MUSCULOSKELTAL: Negative for Myalgia or arthralgia. NEURLOGICAL: No LOC, Sz or syncope, blurred vision dizziness or abnormality.. BEHAVIORAL/PSYCH: Negative. ENDOCRINE: Negative. Past Medical History Past Medical History: COPD, CVA/TIA, Diabetes Mellitus, GERD/Reflux, Hearing Disorder / Deafness, Hyperlipidemia, Myocardial Infarction (HI), Osteoarthritis (OA), Pneumonia, Prostate Disorder, Pulmonary Embolus (PE), Respiratory Disorder Additional Past Medical History / Comment(s): pulmonary embolism/R lower lobe pneumonia/acute hypoxic failure. Portal bollous emphysema. diabetes, low back pain with bilateral sciatica; restless leg syndrome; migraines, TIA , BPH, hard of hearing bilaterally, , diverticulosis. New onset diabetes 08/11/19, multiple pneumothorax Last Myocardial Infarction Date:: 12/30/2019 History of Any Multi-Drug Resistant Organisms: None Reported Past Surgical History: Heart Catheterization With Stent, Hernia Repair, Orthope dic Surgery, Tonsillectomy Additional Past Surgical History / Comment(s): Septoplasty/ESSS, EGD, colonoscopy with benign polyp, R inguinal hernia, umbilical hernia, pain clinic procedures for back pain, atilio fundloplication. Past Anesthesia/Blood Transfusion Reactions: No Reported Reaction Date of Last Stent Placement:: Smoking Status: Former smoker - Past Family History Father History Unknown: Yes Family Medical History: No Reported History, Unable to Obtain Additional Family Medical History / Comment(s): Pt was adopted. Mother History Unknown: Yes Additional Family Medical History / Comment(s): Pt was adopted. Daughter(s) Additional Family Medical History / Comment(s): Children do not have any major medical problems. No history of blood clots. Medications and Allergies Home Medications Medication Instructions Recorded Confirmed Type Finasteride [Proscar] 5 mg PO HS 10/21/14 03/24/20 History Gabapentin [Neurontin] 600 mg PO QAM 10/21/14 03/24/20 History Gabapentin 1,200 mg PO HS 04/09/16 03/24/20 History traZODone HCL 150 mg PO HS 04/09/16 03/24/20 History Albuterol Nebulized [Ventolin 2.5 mg INHALATION RT-QID PRN 06/12/19 03/24/20 History Nebulized] ALPRAZolam [Xanax] 0.5 mg PO HS 07/13/19 03/24/20 History Budesonide-Formot 160-4.5 Mcg 2 puff INHALATION RT-BID 12/29/19 03/24/20 History [Symbicort 160-4.5 Mcg Inhaler] HYDROcodone/APAP 5-325MG [Haskell 1 tab PO TID 12/29/19 03/24/20 History 5-325] Omeprazole Magnesium [PriLOSEC OTC] 20 mg PO BID 12/29/19 03/24/20 History Tiotropium 18 Mcg/Puff [Spiriva] 1 puff INHALATION RT-BID 12/29/19 02/09/20 History Nitroglycerin Sl Tabs [Nitrostat] 0.4 mg SUBLINGUAL Q5M PRN #25 tab 12/31/19 03/24/20 Rx Tamsulosin HCl [Flomax] 0.4 mg PO BID 01/12/20 03/24/20 History Apixaban [Eliquis] 5 mg PO BID #60 tab 01/14/20 03/24/20 Rx Clopidogrel [Plavix] 75 mg PO DAILY #30 tab 01/14/20 03/24/20 Rx Escitalopram Oxalate [Lexapro] 10 mg PO DAILY 02/09/20 03/24/20 History Butalbital/Acetaminophen 1 PO QID PRN 03/24/20 History [Butalbital/Acetaminophen 50-300 Tab] Cyclobenzaprine [Flexeril] 10 mg PO HS 03/24/20 03/24/20 History Furosemide [Lasix] 40 mg PO DAILY 03/24/20 03/24/20 History Metoprolol Tartrate [Lopressor] 25 mg PO BID 03/24/20 03/24/20 History Pravastatin Sodium 80 mg PO HS 03/24/20 03/24/20 History Verapamil [Isoptin] 40 mg PO DAILY 03/24/20 03/24/20 History metFORMIN HCL [Glucophage] 500 mg PO DAILY 03/24/20 03/24/20 History Allergies Allergy/AdvReac Type Severity Reaction Status Date / Time No Known Allergies Allergy Verified 03/24/20 12:24 Physical Exam Vitals: Vital Signs Temp Pulse Resp BP Pulse Ox 03/24/20 18:44 98.6 F 80 16 110/68 97 03/24/20 17:00 80 16 110/78 93 L 03/24/20 16:30 76 19 108/65 96 03/24/20 16:00 73 23 106/61 99 03/24/20 15:30 71 13 111/87 97 03/24/20 15:00 64 14 126/79 98 03/24/20 14:30 80 31 H 114/79 95 03/24/20 14:00 75 12 117/83 97 03/24/20 13:59 80 16 117/83 98 03/24/20 13:30 70 18 116/80 99 03/24/20 13:00 73 10 L 126/84 92 L 03/24/20 12:58 16 03/24/20 12:30 30 H 03/24/20 12:29 79 25 H 03/24/20 12:20 98.6 F 87 18 109/71 91 L Intake and Output 03/24/20 03/24/20 03/25/20 14:59 22:59 06:59 Other: # Voids 0 Weight 81.647 kg 81.647 kg General Appearance: Alert, cooperative, no distress, appears stated age. Neck HEENT: Supple, no lymphadenopathy, no thyroid enlargement, no carotid bruits. Lungs: Decreased breath sound bilaterally with worsening of the right side left side with fine rhonchi positive mild expiratory wheezes with slight decrease air exchange. Chest Wall: Decrease expansion with deep inspiration positive tenderness and no deformity was found on exam, no costochondral pain or discomfort. Heart: Irregular rate and rhythm, S1, S2 positive is 3 positive JVD. Back: Symmetric, no curvature, ROM normal, no CVA tenderness. Abdomen: Soft, non-tender, bowel sounds active all four quadrants, no masses, no organomegaly. Extremities: Extremities normal, atraumatic, no cyanosis or edema. Pulses: 2+ and symmetric. Skin: Skin color, texture, tugor normal, no rashes or lesions. Neurologic: Alert oriented x3 cranial nerves II through XII intact, no motor deficit, no abnormal balance or gait. Results CBC & Chem 7: 03/24/20 12:49 03/24/20 12:49 Labs: Abnormal Lab Results - Last 24 Hours (Table) 03/24/20 03/24/20 03/24/20 Range/Units 12:49 12:49 22:19 Hgb 12.7 L (13.0-17.5) gm/dL MCHC 30.7 L (31.0-37.0) g/dL Neutrophils # 7.9 H (1.3-7.7) k/uL Sodium 136 L (137-145) mmol/L Glucose 102 H (74-99) mg/dL POC Glucose (mg/dL) 119 H (75-99) mg/dL Albumin 3.4 L (3.5-5.0) g/dL Thrombosis Risk Factor Assmnt - DVT/VTE Prophylaxis DVT/VTE Prophylaxis: Pharmacologic Prophylaxis ordered, Mechanical Prophylaxis ordered - Choose All That Apply Any of the Below Risk Factors Present?: Yes Each Factor Represents 1 point: Abnormal pulmonary function (COPD), Obesity (BMI >25), Serious lung disease incl. pneumonia (< 1month) Other Risk Factors: Yes Each Risk Factor Represents 2 Points: Age 61-74 years Each Risk Factor Represents 3 Points: History of DVT/PE Other congenital or acquired thrombophilia - If yes, enter type in comment: No Thrombosis Risk Factor Assessment Total Risk Factor Score: 8 Thrombosis Risk Factor Assessment Level: High Risk Assessment and Plan Assessment: 1 recurrent spontaneous pneumothorax: Secondary to advanced COPD and advance bullous on the lung. Patient was admitted to the hospital will consult pulmonary if worsening pneumothorax patient will have chest tube. 2 severe chest pain: Because by the pneumothorax no cardiac complaint here. 3 advanced COPD: Patient to be continue on oxygen, continue budesonide spit leave a and DuoNeb. 4 Chronic bullous emphysema with advance COPD: Patient is scheduled to go for partial resection and reduction. 5 type 2 diabetes: Continue NovoLog with sliding scales coverage hold off on metformin. 6 BPH: Continue patient on Proscar and Flomax watch for any urinary retention. 7 advance chronic diabetic neuropathy: Remain on gabapentin 6 in the milligram in the morning and 1200 at night. 8 hypertension: Continue Lopressor. 9 Recent history of PE: Remain on anticoagulation and tolerate medication very well so far. 10 recent history of non-ST myocardial infarction: Patient seen cardiology still on Plavix Lopressor and atorvastatin. No chest pain or recurrent angina. 11 DVT prophylaxis: Still on Eliquis twice a day. 12 GI prophylaxis: Patient will be on pantoprazole. CODE STATUS: DO NOT RESUSCITATE. Admit patient to inpatient for more than 2 night stay.
[2020-03-24] MEDS ORDERED: ALBUTEROL NEBULIZED 2.5 MG/3 ML INHALATION PRN (23:17)
[2020-03-24] MEDS ORDERED: NITROGLYCERIN SL TABS 0.4 MG TAB SUBLINGUAL PRN (23:17)
[2020-03-24] MEDS ORDERED: GABAPENTIN 400 MG CAP PO SCH (23:30)
[2020-03-24] MEDS ORDERED: BUTALBITAL PO PRN (23:45)
[2020-03-24] MEDS ORDERED: traZODone HCL 50 MG TAB PO SCH (23:45)
[2020-03-24] MEDS ORDERED: ACETAMINOPHEN PO PRN (23:45)
[2020-03-24] MEDS: TAMSULOSIN 0.4 MG CAP.ER.24H PO SCH (23:48)
[2020-03-25] MEDS: HYDROmorphone 0.5 MG/0.5 ML SYRINGE IVP PRN ×3 (03:51→12:40)
[2020-03-25 07:10] LABS: Glucose,Whole Blood 117 mg/dL (75-99)
[2020-03-25] MEDS ORDERED: SYMBICORT 160-4.5 MCG INHALER INHALATION SCH (08:00)
--- NOTE | 2020-03-25 08:21 | XR ---
EXAMINATION TYPE: XR chest 2V DATE OF EXAM: 03/25/2020 COMPARISON: 03/24/2020 HISTORY: 69-year-old male follow-up pneumothorax TECHNIQUE: Frontal and lateral views FINDINGS: Heart is normal size. Aorta and pulmonary vasculature within normal limits. There may be some underly ing bullous change in the right upper lobe. Patchy bibasilar opacities slightly increased on the righ t. Trace right apical pneumothorax measuring 9 mm versus 1.6 cm, previously. IMPRESSION: 1. Trace right apical pneumothorax measuring 9 mm versus 1.6 cm, previously. 2. Some possible underlying bullous change at the right upper lobe. 3. Increasing patchy atelectasis or infiltrate at the right base.
[2020-03-25] MEDS: IPRATROPIUM 0.5 MG/2.5 ML NEBU INHALATION SCH ×3 (08:41→16:22)
[2020-03-25] MEDS ORDERED: APIXABAN 5 MG TAB PO SCH (09:00)
[2020-03-25] MEDS ORDERED: VERAPAMIL 40 MG TAB PO SCH (09:00)
[2020-03-25] MEDS ORDERED: FUROSEMIDE 40 MG TAB PO SCH (09:00)
[2020-03-25] MEDS ORDERED: metFORMIN 500 MG TAB PO SCH (09:00)
[2020-03-25] MEDS ORDERED: TAMSULOSIN 0.4 MG CAP.ER.24H PO SCH (09:00)
[2020-03-25] MEDS ORDERED: ESCITALOPRAM 10 MG TAB PO SCH (09:00)
[2020-03-25] MEDS ORDERED: HYDROcodone/APAP 5-325MG 1 EACH TAB PO SCH (09:00)
[2020-03-25] MEDS ORDERED: METOPROLOL TARTRATE 25 MG TAB PO SCH (09:00)
[2020-03-25] MEDS ORDERED: CLOPIDOGREL 75 MG TAB PO SCH (09:00)
[2020-03-25] MEDS ORDERED: PANTOPRAZOLE 40 MG TABLET PO SCH (09:00)
[2020-03-25] MEDS ORDERED: GABAPENTIN 300 MG CAP PO SCH (09:00)
[2020-03-25] MEDS: TAMSULOSIN 0.4 MG CAP.ER.24H PO SCH (09:09)
--- NOTE | 2020-03-25 11:24 | P.PN ---
Subjective Progress Note Date: 03/25/20 69-year-old male one of Dr. Giordano's patient who was the hospital last in January for another pneumothorax patient is known to have advanced COPD with multiple bullous on the surface part of the lung with multiple recurrent pneumothorax patient is scheduled at [facility] to go for partial lung reduction part of the improvement for his COPD and to reduce the are of pneumothorax. Patient presented to the emergency department at [facility] today because he developed to have right-sided chest pain since yesterday become severely worse and ended up having worsening hypoxia and worsening symptoms with mild cough and worsening wheezes. Was seen and evaluated chest x-ray of his pulmonary doctor today showed right sided pneumothorax with suspicion of the left side as well patient ended up coming to the emergency department and his pneumothorax was less than 15% decided not to do chest tube was evaluated by pulmonary and decided to keep him in the hospital repeat chest x-ray if pneumothorax become larger would require chest tube. Since he left the hospital last time no change no rehospitalization his appointment at [facility] was delay because of the COVID 19. 03/25: Patient is seen today in follow-up on the [facility] floor. He states he is feeling good and breathing seems to be stable at the time. Repeat chest x-ray reveals trace right apical pneumothorax measuring 9 mm versus 1.[address] Villagomez is on consult. Pulse ox at that had a 95% on nonrebreather at 15 L but patient has removed oxygen during evaluation. His respiratory status appears to be stable. He has been afebrile, heart rate 88 blood pressure 100/64. front desk monitor is sinus rhythm. Objective - Vital Signs Vital signs: Vital Signs Temp 98.1 F 03/25/20 04:54 Pulse 86 03/25/20 04:54 Resp 16 03/25/20 04:54 BP 100/64 03/25/20 04:54 Pulse Ox 95 03/25/20 04:54 Intake & Output 03/24/20 03/25/20 03/25/20 18:59 06:59 18:59 Weight 81.647 kg 81.647 kg Other: Voiding Method Toilet # Voids 2 - Exam Review of Systems CONSTITUTIONAL: Well-developed no acute respiratory distress. Denies fever, denies chills. EYES: No icterus sclerae, no conjunctivitis. EARS, NOSE, MOUTH, THROAT, and FACE: No sore throat, lymphadenopathy, carotid bruits or deformity. RESPIRATORY: Severe shortness of breath with chest pain cough and wheezes. CARDIOVASCULAR: Positive PND orthopnea and palpitation GASTROINTESTINAL: No Abd pain, Nausea or vomiting, no Diarrhea or constipation, No GI Bleed, no distention or masses. GENITOURINARY: Negative for Hematuria or UTI, no kidney stones. INTEGUMENT/BREAST: Negative for any muscular injury with mild osteoarthritis.. HEMATOLOGIC/LYMPHATIC: Negative for bleed or purpura. MUSCULOSKELTAL: Negative for Myalgia or arthralgia. NEURLOGICAL: No LOC, Sz or syncope, blurred vision dizziness or abnormality.. BEHAVIORAL/PSYCH: Negative. ENDOCRINE: Negative. Physical examination General Appearance: Alert, cooperative, no distress, appears stated age. Neck HEENT: Supple, no lymphadenopathy, no thyroid enlargement, no carotid bruits. Lungs: Decreased breath sound bilaterally, no accessory muscle usage. Chest Wall: Decrease expansion with deep inspiration positive tenderness and no deformity was found on exam, no costochondral pain or discomfort. Heart: Irregular rate and rhythm, S1, S2 positive is 3 positive JVD. Back: Symmetric, no curvature, ROM normal, no CVA tenderness. Abdomen: Soft, non-tender, bowel sounds active all four quadrants, no masses, no organomegaly. Extremities: Extremities normal, atraumatic, no cyanosis or edema. Pulses: 2+ and symmetric. Skin: Skin color, texture, tugor normal, no rashes or lesions. Neurologic: Alert oriented x3 cranial nerves II through XII intact, no motor deficit, no abnormal balance or gait. - Labs CBC & Chem 7: 03/24/20 12:49 03/24/20 12:49 Labs: Abnormal Lab Results - Last 24 Hours (Table) 03/24/20 03/24/20 03/24/20 Range/Units 12:49 12:49 22:19 Hgb 12.7 L (13.0-17.5) gm/dL MCHC 30.7 L (31.0-37.0) g/dL Neutrophils # 7.9 H (1.3-7.7) k/uL Sodium 136 L (137-145) mmol/L Glucose 102 H (74-99) mg/dL POC Glucose (mg/dL) 119 H (75-99) mg/dL Albumin 3.4 L (3.5-5.0) g/dL 03/25/20 Range/Units 06:55 Hgb (13.0-17.5) gm/dL MCHC (31.0-37.0) g/dL Neutrophils # (1.3-7.7) k/uL Sodium (137-145) mmol/L Glucose (74-99) mg/dL POC Glucose (mg/dL) 117 H (75-99) mg/dL Albumin (3.5-5.0) g/dL Assessment and Plan Plan: 1 recurrent spontaneous pneumothorax: Secondary to advanced COPD and advance bullous on the lung. Patient was admitted to the hospital will consult pulmonary if worsening pneumothorax. 2 severe chest pain: Because by the pneumothorax no cardiac complaint here. 3 advanced COPD: Patient to be continue on oxygen, continue budesonide spit leave a and DuoNeb. 4 Chronic bullous emphysema with advance COPD: Patient is scheduled to go for partial resection and reduction. 5 type 2 diabetes: Continue NovoLog with sliding scales coverage hold off on metformin. 6 BPH: Continue patient on Proscar and Flomax watch for any urinary retention. 7 advance chronic diabetic neuropathy: Remain on gabapentin 600 milligram in the morning and 1200 at night. 8 hypertension: Continue Lopressor. 9 Recent history of PE: Remain on anticoagulation and tolerate medication very well so far. 10 recent history of non-ST myocardial infarction: Patient seen cardiology still on Plavix Lopressor and atorvastatin. No chest pain or recurrent angina. 11 DVT prophylaxis: Still on Eliquis twice a day. 12 GI prophylaxis: Patient will be on pantoprazole. CODE STATUS: DO NOT RESUSCITATE. Discharge plan: Home Impression and plan of care have been directed as dictated by the signing physician. Cierra Lazo nurse practitioner acting as scribe for signing physician.
[2020-03-25 11:41] LABS: Glucose,Whole Blood 104 mg/dL (75-99)
[2020-03-25 11:52] VITALS: BP 123/78; TEMP 97.3
[2020-03-25 12:23] VITALS: PULSE 84
[2020-03-25] MEDS ORDERED: INSULIN ASPART (NovoLOG) 100 UNIT/ML VIAL SQ SCH (12:30)
--- NOTE | 2020-03-25 13:49 | P.DS ---
Providers Date of admission: 03/24/20 13:20 Expected date of discharge: 03/25/20 Attending physician: Kevin Dennison Consults: 03/24/20 13:21 Consult Physician Urgent Consulting Provider: Willy Villagomez Reason/Comments: Pneumothorax Do you want consulting provider notified?: Already Contacted Primary care physician: Dyana Giordano [facility] Course: 69-year-old male one of Dr. Giordano's patient who was the hospital last in January for another pneumothorax patient is known to have advanced COPD with multiple bullous on the surface part of the lung with multiple recurrent pneumothorax patient is scheduled at [facility] to go for partial lung reduction part of the improvement for his COPD and to reduce the are of pneumothorax. Patient presented to the emergency department at [facility] today because he developed to have right-sided chest pain since yesterday become severely worse and ended up having worsening hypoxia and worsening symptoms with mild cough and worsening wheezes. Was seen and evaluated chest x-ray of his pulmonary doctor today showed right sided pneumothorax with suspicion of the left side as well patient ended up coming to the emergency department and his pneumothorax was less than 15% decided not to do chest tube was evaluated by pulmonary and decided to keep him in the hospital repeat chest x-ray if pneumothorax become larger would require chest tube. Since he left the hospital last time no change no rehospitalization his appointment at [facility] was delay because of the COVID 19. 03/25: Patient is seen today in follow-up on the [facility] floor. He states he is feeling good and breathing seems to be stable at the time. Repeat chest x-ray reveals trace right apical pneumothorax measuring 9 mm versus 1.[address] Villagomez is on consult. Pulse ox at that had a 95% on nonrebreather at 15 L but patient has removed oxygen during evaluation. His respiratory status appears to be stable. He has been afebrile, heart rate 88 blood pressure 100/64. naturopath is sinus rhythm. Patient has been evaluated by Dr. Villagomez and cleared for discharge home. Plan is for repeat chest x-ray as an outpatient on Saturday. Discharge diagnoses: 1 recurrent spontaneous pneumothorax: Secondary to advanced COPD and advance bullous on the lung. 2 severe chest pain: Because by the pneumothorax 3 advanced COPD 4 Chronic bullous emphysema with advance COPD 5 type 2 diabetes 6 BPH 7 advance chronic diabetic neuropathy 8 hypertension 9 Recent history of PE 10 recent history of non-ST myocardial infarction Discharge plan: Home Impression and plan of care have been directed as dictated by the signing physician. Cierra Lazo nurse practitioner acting as scribe for signing physician. Patient Condition at Discharge: Stable Plan - Discharge Summary Discharge Rx Participant: No New Discharge Prescriptions: Continue Gabapentin [Neurontin] 600 mg PO QAM Finasteride [Proscar] 5 mg PO HS traZODone HCL 150 mg PO HS Gabapentin 1,200 mg PO HS Albuterol Nebulized [Ventolin Nebulized] 2.5 mg INHALATION RT-QID PRN PRN Reason: Shortness Of Breath ALPRAZolam [Xanax] 0.5 mg PO HS Tiotropium 18 Mcg/Puff [Spiriva] 1 puff INHALATION RT-BID Budesonide-Formot 160-4.5 Mcg [Symbicort 160-4.5 Mcg Inhaler] 2 puff INHALATION RT-BID Omeprazole Magnesium [PriLOSEC OTC] 20 mg PO BID HYDROcodone/APAP 5-325MG [Kanorado 5-325] 1 tab PO TID Nitroglycerin Sl Tabs [Nitrostat] 0.4 mg SUBLINGUAL Q5M PRN #25 tab PRN Reason: Chest Pain Tamsulosin HCl [Flomax] 0.4 mg PO BID Apixaban [Eliquis] 5 mg PO BID #60 tab Clopidogrel [Plavix] 75 mg PO DAILY #30 tab Escitalopram Oxalate [Lexapro] 10 mg PO DAILY Pravastatin Sodium 80 mg PO HS Verapamil [Isoptin] 40 mg PO DAILY Cyclobenzaprine [Flexeril] 10 mg PO HS Furosemide [Lasix] 40 mg PO DAILY Metoprolol Tartrate [Lopressor] 25 mg PO BID metFORMIN HCL [Glucophage] 500 mg PO DAILY Butalbital/Acetaminophen [Butalbital/Acetaminophen 50-300 Tab] 1 PO QID PRN PRN Reason: Headache Discharge Medication List Finasteride [Proscar] 5 mg PO HS 10/21/14 [History] Gabapentin [Neurontin] 600 mg PO QAM 10/21/14 [History] Gabapentin 1,200 mg PO HS 04/09/16 [History] traZODone HCL 150 mg PO HS 04/09/16 [History] Albuterol Nebulized [Ventolin Nebulized] 2.5 mg INHALATION RT-QID PRN 06/12/19 [History] ALPRAZolam [Xanax] 0.5 mg PO HS 07/13/19 [History] Budesonide-Formot 160-4.5 Mcg [Symbicort 160-4.5 Mcg Inhaler] 2 puff INHALATION RT-BID 12/29/19 [History] HYDROcodone/APAP 5-325MG [Kanorado 5-325] 1 tab PO TID 12/29/19 [History] Omeprazole Magnesium [PriLOSEC OTC] 20 mg PO BID 12/29/19 [History] Tiotropium 18 Mcg/Puff [Spiriva] 1 puff INHALATION RT-BID 12/29/19 [History] Nitroglycerin Sl Tabs [Nitrostat] 0.4 mg SUBLINGUAL Q5M PRN #25 tab 12/31/19 [Rx] Tamsulosin HCl [Flomax] 0.4 mg PO BID 01/12/20 [History] Apixaban [Eliquis] 5 mg PO BID #60 tab 01/14/20 [Rx] Clopidogrel [Plavix] 75 mg PO DAILY #30 tab 01/14/20 [Rx] Escitalopram Oxalate [Lexapro] 10 mg PO DAILY 02/09/20 [History] Butalbital/Acetaminophen [Butalbital/Acetaminophen 50-300 Tab] 1 PO QID PRN 03/24/20 [History] Cyclobenzaprine [Flexeril] 10 mg PO HS 03/24/20 [History] Furosemide [Lasix] 40 mg PO DAILY 03/24/20 [History] Metoprolol Tartrate [Lopressor] 25 mg PO BID 03/24/20 [History] Pravastatin Sodium 80 mg PO HS 03/24/20 [History] Verapamil [Isoptin] 40 mg PO DAILY 03/24/20 [History] metFORMIN HCL [Glucophage] 500 mg PO DAILY 03/24/20 [History] Follow up Appointment(s)/Referral(s): Dyana Giordano MD [Primary Care Provider] - 1 Week Discharge Disposition: HOME SELF-CARE
--- NOTE | 2020-03-25 16:26 | CONS ---
CONSULTATION PULMONARY/CRITICAL CARE CONSULTATION: DATE OF SERVICE: 03/25/2020 This is a 69-year-old male, well known to our service. He comes into the emergency room on March 24 complaining of shortness of breath. There he saw Dr. Mckeon. He apparently presented with right-sided chest pain and shortness of breath. It began the night before. He apparently had a chest x-ray done by his primary care provider and pneumothorax was noted. He was sent to the emergency room. The patient has a previous history of recurrent pneumothoraces both on the right and left lung. He has had multiple devices placed, including chest tubes and Thoravents. He is apparently scheduled to have a lung volume reduction procedure in the near future. Anyway, I was called by the ER physician. His pneumothorax was relatively small, maybe 10% or 15%. The patient was completely asymptomatic by the time he got to the emergency room. Today he is feeling completely back to normal. The pneumothorax has decreased in size from yesterday to today, according to the radiologist looked at the x-rays. Again, the patient is feeling well, not having any major complaints other than some baseline shortness of breath, which is his usual complaint. He was placed on oxygen therapy overnight. He denies any fever or chills. There is no chest pain or chest discomfort. There is no nausea, vomiting or diarrhea. There are no abdominal complaints. His home medications are reviewed. He is on Proscar, Neurontin, trazodone, albuterol updrafts, Xanax, Symbicort, [place], omeprazole, Spiriva, Flomax and Lexapro. Other medications include Lipitor, Lasix, metoprolol, sublingual nitroglycerin, Eliquis, Plavix and metformin. ALLERGIES: DENIED. MEDICAL HISTORY: Medical history includes COPD, recurrent pneumothoraces, status post chest tube placement, CVA, diabetes mellitus, GERD, deafness, hyperlipidemia, myocardial infarction, osteoarthritis, pneumonia, BPH, pulmonary embolism and chronic hypoxemic respiratory failure. In addition, the patient suffers from chronic low back pain and sciatic neuralgia as well as restless legs syndrome, migraine cephalgia and diverticular disease. SURGICAL HISTORY: His surgical history includes heart catheterization with stent, hernia repair, septoplasty, EGD, colonoscopy, right inguinal hernia repair, umbilical hernia repair, pain shots for chronic back pain, Thomas fundoplication, and multiple chest tube placements for pneumothorax. SOCIAL HISTORY: Positive for previous tobacco use. Denies any alcohol or illicit drug use. FAMILY HISTORY: Not known. He was adopted. Mother's history is not known, either. He does have a couple of daughters, neither of which have any health issues. REVIEW OF SYSTEMS: CONSTITUTIONAL: Negative. NEUROLOGIC: Negative. HEENT: Negative. CARDIOVASCULAR: Chest pain. PULMONARY: Shortness of breath. GI: Negative. : Negative. RHEUMATOLOGIC: Negative. IMMUNOLOGIC: Negative. ENDOCRINOLOGIC: Negative. DERMATOLOGIC: Negative. PHYSICAL EXAMINATION: VITAL SIGNS: Current vital signs are reviewed. Temperature is 97.3, heart rate 80, respiratory rate 16, blood pressure 123/78, mean 93. Saturations are 96% on a non- rebreather. He usually uses 2 L at home. GENERAL APPEARANCE: Appears in no acute distress. There is no conversational dyspnea. There is no audible wheezing or use of accessory muscles. HEENT: Examination is grossly unremarkable. At the time of the evaluation, the patient had the non-rebreather mask hanging basically around his neck. NECK: Supple. Full range of motion. No adenopathy. Neck veins are flat. CARDIOVASCULAR: Examination reveals regular rhythm and rate. S1, S2 normal. No S3, S4 or murmur. Heart sounds are distant. LUNGS: Lungs reveal a few scattered expiratory wheezes and rhonchi. Breath sounds are diminished throughout. Slight prolongation on forced maneuver. ABDOMEN: Soft. Bowel sounds are heard. EXTREMITIES: Intact. No cyanosis, clubbing or edema. SKIN: Without rash. NEUROLOGIC: Neurologic examination is brief but nonfocal. LABS: Reviewed. White count 10, hemoglobin 12.7, hematocrit 41.3, platelet count 265,000. PT, INR, PTT normal. Sodium 136, potassium 4.6, chloride 103, CO2 28. Anion gap is 5. BUN and creatinine were 17 and 0.81. Albumin 3.4. Microbiology is negative. Chest x-rays from March 24 and March 25 are compared. On the March 25 chest x-ray, the pneumothorax is much smaller, only measuring about 9 mm versus 1.6 cm previously. Bullous changes are noted in both upper lobes. Medications are reviewed. Everything seems to be appropriate. ASSESSMENT: 1. Recurrent pneumothoraces in both lungs, right and left. Currently, the patient's right-sided pneumothorax is relatively small and currently he is asymptomatic. I thought he could be discharged home and he will have a chest x-ray in my office on Saturday. 2. Previous history of tobacco use with a history of bullous emphysema. 3. Cerebrovascular accident. 4. Diabetes mellitus. 5. Gastroesophageal reflux disease. 6. Deafness. 7. Hyperlipidemia. 8. Previous myocardial infarction. 9. Osteoarthritis. 10.Pneumonia. 11.Benign prostatic hypertrophy. 12.Pulmonary embolism. 13.Chronic hypoxemic respiratory failure. 14.Multiple other medical problems and comorbidities. PLAN: The patient has apparently been scheduled for a lung volume reduction procedure at [facility]. Apparently that was scheduled initially for early December and was canceled with the COVID-19 pandemic. The patient needs to get back on the schedule for that. From my perspective, the patient could go home. He does have his usual breathing medications at home and oxygen. I did tell him to wear his oxygen 24/. That will help the pneumothorax improve. He will stop in the office on Saturday if he is doing well and get a follow-up chest x-ray. Should his shortness of breath or chest pain get worse, on either side of the chest, he needs to come back into the hospital immediately. I did pass on this information to the nurse. MMDIONL / KANCHANN: [id number] /
[2020-03-25] MEDS ORDERED: FINASTERIDE 5 MG TAB PO SCH (21:00)
[2020-03-25] MEDS ORDERED: ALPRAZolam 0.5 MG TAB PO SCH (21:00)
[2020-03-25] MEDS ORDERED: GABAPENTIN 400 MG CAP PO SCH (21:00)
[2020-03-25] MEDS ORDERED: traZODone HCL 50 MG TAB PO SCH (21:00)
[2020-03-25] MEDS ORDERED: CYCLOBENZAPRINE 10 MG TAB PO SCH (21:00)
[2020-03-25] MEDS ORDERED: PRAVASTATIN SODIUM 80 MG TAB PO SCH (21:00)
== END 2020-03-25 16:43 | disposition home or self-care (01) | DRG 200 ==
LOC: EC 12:06 → 4SSUR 13:20 → 5NMEDONC 18:26
PROVIDERS: ADMIT Internal Medicine Geriatric Medicine; ATTEND Internal Medicine Geriatric Medicine
DX: J93.83 Other pneumothorax (principal); J96.11 Chronic respiratory failure with hypoxia; J43.9 Emphysema, unspecified; Z87.891 Personal history of nicotine dependence; Z86.73 Personal history of transient ischemic attack (TIA), and cerebral infarction without residual deficits; K21.9 Gastro-esophageal reflux disease without esophagitis; M19.90 Unspecified osteoarthritis, unspecified site; N40.0 Benign prostatic hyperplasia without lower urinary tract symptoms; Z66 Do not resuscitate; Z79.01 Long term (current) use of anticoagulants; Z79.02 Long term (current) use of antithrombotics/antiplatelets; Z79.51 Long term (current) use of inhaled steroids; Z79.84 Long term (current) use of oral hypoglycemic drugs; Z79.899 Other long term (current) drug therapy; Z86.711 Personal history of pulmonary embolism; E11.40 Type 2 diabetes mellitus with diabetic neuropathy, unspecified; E78.5 Hyperlipidemia, unspecified; G25.81 Restless legs syndrome; H91.93 Unspecified hearing loss, bilateral; I10 Essential (primary) hypertension; I25.2 Old myocardial infarction; G43.909 Migraine, unspecified, not intractable, without status migrainosus; G89.29 Other chronic pain; M54.30 Sciatica, unspecified side
CPT/HCPCS: 36415; 71046; 80053; 85025; 85610; 85730; 93005; 94640

== ENCOUNTER → 2020-03-24 | Outpatient (CLI) | payer MEDICARE ==
--- NOTE | 2020-03-24 11:49 | XR ---
EXAMINATION TYPE: XR chest 2V DATE OF EXAM: 03/24/2020 COMPARISON: 02/24/20 HISTORY: Right-sided lung pain. TECHNIQUE: Frontal and lateral views of the chest are obtained. FINDINGS: Right apical pneumothorax seen with maximum pleural separation at the right lung apex valentino uring 1.6 cm. Volume estimated to be 10-15%. The cardiac silhouette size is within normal limits. No current mediastinal shift. Chronic pleural-parenchymal scarring is seen multifocally with bullous em physematous changes of the right lung. The osseous structures are grossly intact. IMPRESSION: 1. Right apical pneumothorax with volume estimated to be 10-15%. No current mediastinal shift. Findin gs discussed with nurse Itzel at the ordering physician's office by Dr. Alexander at 11:45 AM on 03/24/20. 2. Bullous emphysematous changes on the right with multifocal pleural parenchymal scarring. A [place] level critical message alert has been initiated for Dyana Giordano MD via the [employer] Critical Results System on 03/24/2020 11:47 AM. This message alert has been sent to Dyana Giordano MD via the preferences provided by the clinician for the receipt of Radiology Critical Findings. Mess age ID [id number].
== END | disposition home or self-care (01) ==
LOC: RADXRMAIN 11:18
PROVIDERS: ATTEND Family Medicine
DX: J93.9 Pneumothorax, unspecified (principal); J43.9 Emphysema, unspecified
CPT/HCPCS: 71046

== ENCOUNTER → 2020-03-30 | Outpatient (CLI) | payer MEDICARE ==
--- NOTE | 2020-03-31 15:27 | ECHOF ---
Referral Reason:Pulm ebollism w accute cor pulmonale I26.09 MEASUREMENTS -------- HEIGHT: 180.3 cm WEIGHT: 83.9 kg BP: IVSd: 1.1 cm (0.6 - 1.1) LVIDd: 4.4 cm (3.9 - 5.3) LVPWd: 1.4 cm (0.6 - 1.1) IVSs: 1.9 cm LVIDs: 2.6 cm LVPWs: 1.9 cm RVIDd: 3.1 cm (< 3.3) LAESV Index (A-L): 27.21 ml/m Ao Diam: 2.7 cm (2.0 - 3.7) LA Diam: 3.7 cm (2.7 - 3.8) AV Cusp: 1.8 cm (1.5 - 2.6) EPSS: 0.5 cm MV E Tay: 0.71 m/s MV DecT: 309 ms MV A Tay: 0.89 m/s MV E/A Ratio: 0.79 RAP: 5.00 mmHg RVSP: 30.60 mmHg MV EF SLOPE: 113.62 mm/s (70 - 150) MV EXCURSION: 21.91 mm (> 18.000) TAPSE: 23.93 mm FINDINGS -------- Sinus rhythm. This was a technically good study. The left ventricular size is normal. There is mild concentric left ventricular hypertrophy. Overa ll left ventricular systolic function is normal with, an EF between 55 - 60 %. Normal LAP Grade 1 D iastolic Dysfunction The right ventricle is normal in size. The left atrial size is normal. Normal LA size by volume 22+/-6 ml/m2. The right atrial size is normal. Interatrial and interventricular septum intact. The aortic valve is trileaflet and appears structurally normal. Trace amount of aortic regurgitatio n. The mitral valve is normal. Mild mitral regurgitation is present. The tricuspid valve appears structurally normal. Mild tricuspid regurgitation present. Right vent ricular systolic pressure is normal at < 35 mmHg. There is no pulmonic regurgitation present. The aortic root size is normal. Normal inferior vena cava with normal inspiratory collapse consistent with estimated right atrial pre ssure of 5 mmHg. There is no pericardial effusion. CONCLUSIONS -------- 1. Sinus rhythm. 2. This was a technically good study. 3. The left ventricular size is normal. 4. There is mild concentric left ventricular hypertrophy. 5. Overall left ventricular systolic function is normal with, an EF between 55 - 60 %. 6. Normal LAP Grade 1 Diastolic Dysfunction 7. The right ventricle is normal in size. 8. The left atrial size is normal. 9. Normal LA size by volume 22+/-6 ml/m2. 10. The right atrial size is normal. 11. Interatrial and interventricular septum intact. 12. The aortic valve is trileaflet and appears structurally normal. 13. Trace amount of aortic regurgitation. 14. The mitral valve is normal. 15. Mild mitral regurgitation is present. 16. The tricuspid valve appears structurally normal. 17. Mild tricuspid regurgitation present. 18. Right ventricular systolic pressure is normal at < 35 mmHg. 19. There is no pulmonic regurgitation present. 20. The aortic root size is normal. 21. Normal inferior vena cava with normal inspiratory collapse consistent with estimated right atrial pressure of 5 mmHg. 22. There is no pericardial effusion. WIRE PULLER: Tere Paiz RDCS
== END | disposition home or self-care (01) ==
LOC: RADECHMAIN 14:25
PROVIDERS: ATTEND Family Medicine
DX: I08.1 Rheumatic disorders of both mitral and tricuspid valves (principal); I50.30 Unspecified diastolic (congestive) heart failure
CPT/HCPCS: 93306

== ENCOUNTER → 2020-04-27 | Outpatient (CLI) | payer MEDICARE ==
[~2020-04-27] MED LIST changes: -ALPRAZolam 0.25 MG TAB PO PRN; -ALPRAZolam 0.5 MG TAB PO PRN; -ASPIRIN 325 MG TAB PO STA; -ATORVASTATIN 80 MG TAB PO STA; +COSYNTROPIN 0.25 MG VIAL IVP NR; -NITROGLYCERIN SL TABS 0.4 MG TAB SUBLINGUAL PRN; -SODIUM CHLORIDE 0.9% 1,000 ML in EMPTY BAG 1 BAG IV ONE; +SODIUM CHLORIDE 0.9% 500 ML 500 ML in EMPTY BAG 1 BAG IV PRN
[2020-04-27 07:53] VITALS: BP 115/78; PULSE 73; RESP 16; TEMP 98
== END | disposition home or self-care (01) ==
LOC: PROCWHC3 07:28
PROVIDERS: ATTEND Family Medicine
DX: E27.1 Primary adrenocortical insufficiency (principal)
CPT/HCPCS: 82533; 82024; 96374; J0834

== ENCOUNTER → 2020-05-04 | Outpatient (CLI) | payer MEDICARE ==
[2020-05-04 15:37] LABS: Basophils # (A) 0.1 k/uL (0-0.2); Basophils % (A) 1 %; Eosinophils # (A) 0.6 k/uL (0-0.7); Eosinophils % (A) 6 %; HCT 38.7 % (39.0-53.0); HGB 11.8 gm/dL (13.0-17.5); Hypochromasia Marked; Lymphocytes # (A) 1.3 k/uL (1.0-4.8); Lymphocytes % (A) 14 %; MCHC 30.4 g/dL (31.0-37.0); MCV 82.1 fL (80.0-100.0); Mean Platelet Volume 6.6; Monocytes # (A) 0.6 k/uL (0-1.0); Monocytes % (A) 6 %; Neutrophils # (A) 6.5 k/uL (1.3-7.7); Neutrophils % (A) 71 %; Platelet Count 272 k/uL (150-450); RBC 4.71 m/uL (4.30-5.90); RDW 14.3 % (11.5-15.5); WBC 9.2 k/uL (3.8-10.6)
[2020-05-04 22:55] LABS: INR <0.90 (0.90-1.11); Partial Thromboplastin Time 26.2 sec (24.7-29.9); Prothrombin Time <9.9 sec (9.9-11.9)
[2020-05-04 23:52] LABS: African American GFR (CKD) 77.9 (60.0-200.0); Albumin 3.4 g/dL (3.80-4.90); Albumin/Globulin Ratio 1.7 (1.60-3.17); Anion Gap 5.3 mmol/L (4.00-12.00); BUN/Creat Ratio 13.64 Ratio (12.00-20.00); Calcium 8.7 mg/dL (8.7-10.3); Carbon Dioxide 27.7 mmol/L (21.6-31.8); Non-African American GFR(CKD) 67.2 (60.0-200.0); Potassium 4.5 mmol/L (3.5-5.5); Total Bilirubin 0.1 mg/dL (0.2-1.2); Total Protein 5.4 g/dL (6.2-8.2)
== END | disposition home or self-care (01) ==
LOC: LABWHC1 13:03
PROVIDERS: ATTEND Thoracic Surgery (Cardiothoracic Vascular Surgery)
DX: J43.9 Emphysema, unspecified (principal)
CPT/HCPCS: 36415; 80053; 85025; 85610; 85730

== ENCOUNTER → 2020-12-05 | Outpatient (CLI) | payer MEDICARE ==
[2020-12-05 20:26] LABS: Basophils # (A) 0.06 X 10*3/uL (0.00-0.10); Basophils % (A) 0.6 %; Eosinophils # (A) 0.12 X 10*3/uL (0.04-0.35); Eosinophils % (A) 1.1 %; Lymphocytes # (A) 1.74 X 10*3/uL (0.90-5.00); Lymphocytes % (A) 16.6 %; MCH 22.7 pg (27.0-32.0); MCHC 29.3 g/dL (32.0-37.0); MCV 77.5 fL (80.0-97.0); Mean Platelet Volume 10.5 fL (9.5-12.2); Monocytes # (A) 0.76 X 10*3/uL (0.20-1.00); Monocytes % (A) 7.3 %; Neutrophils # (A) 7.73 X 10*3/uL (1.80-7.70); Neutrophils % (A) 73.8 %; Platelet Count 317 X 10*3/uL (140-440); RBC 5.29 X 10*6/uL (4.40-5.60); RDW 18.5 % (11.5-14.5); WBC 10.47 X 10*3/uL (4.50-10.00)
[2020-12-05 21:46] LABS: Erythrocyte Sedimentation Rate 6 mm/Hr (0-20)
[2020-12-05 21:50] LABS: Hemoglobin A1C 7.1 % (4.0-6.0)
[2020-12-05 22:06] LABS: ALT 24 U/L (10-49); AST 20 U/L (14-35); African American GFR (CKD) 86.8 (60.0-200.0); Albumin/Globulin Ratio 2.11 (1.60-3.17); Alkaline Phosphatase 113 U/L (41-126); C Reactive Protein <0.4 mg/dL (0.0-0.8); Calcium 9.1 mg/dL (8.7-10.3); Carbon Dioxide 26.7 mmol/L (21.6-31.8); Chloride 106 mmol/L (96-109); Creatine Kinase 40 U/L (35-257); Globulin 1.9 g/dL (1.6-3.3); Glucose 122 mg/dL (70-110); Non-African American GFR(CKD) 74.9 (60.0-200.0); Potassium 4.5 mmol/L (3.5-5.5); Sodium 140 mmol/L (135-145); Total Bilirubin 0.3 mg/dL (0.2-1.2); Total Protein 5.9 g/dL (6.2-8.2)
== END | disposition home or self-care (01) ==
LOC: LABWHC1 13:38
PROVIDERS: ATTEND Family Medicine
DX: E11.65 Type 2 diabetes mellitus with hyperglycemia (principal); K58.0 Irritable bowel syndrome with diarrhea; R19.7 Diarrhea, unspecified
CPT/HCPCS: 36415; 80053; 82550; 83036; 84439; 84443; 85025; 85652; 86140; 87045; 87046; 87324; 87328; 87329; 87338

== ENCOUNTER → 2021-02-24 | Outpatient (CLI) | payer MEDICARE ==
[2021-02-24 23:37] LABS: Basophils # (A) 0.06 X 10*3/uL (0.00-0.10); Basophils % (A) 0.6 %; Eosinophils # (A) 0.27 X 10*3/uL (0.04-0.35); Eosinophils % (A) 2.7 %; HCT 41.6 % (39.6-50.0); HGB 12.1 g/dL (13.0-17.0); Lymphocytes # (A) 1.24 X 10*3/uL (0.90-5.00); Lymphocytes % (A) 12.3 %; MCH 23.4 pg (27.0-32.0); MCHC 29.1 g/dL (32.0-37.0); MCV 80.3 fL (80.0-97.0); Mean Platelet Volume 10.3 fL (9.5-12.2); Neutrophils # (A) 7.76 X 10*3/uL (1.80-7.70); Platelet Count 327 X 10*3/uL (140-440); RBC 5.18 X 10*6/uL (4.40-5.60); WBC 10.07 X 10*3/uL (4.50-10.00)
[2021-02-25 00:32] LABS: Hemoglobin A1C 6.9 % (4.0-6.0)
[2021-02-25 02:36] LABS: T4, Free (Free Thyroxine) 0.9 ng/dL (0.80-1.80)
[2021-02-25 02:40] LABS: % Iron Saturation 6.24 (15.00-50.00); African American GFR (CKD) 103.4 (60.0-200.0); Albumin 3.8 g/dL (3.80-4.90); Albumin/Globulin Ratio 1.9 (1.60-3.17); Anion Gap 6.2 mmol/L (4.00-12.00); BUN/Creat Ratio 18.75 Ratio (12.00-20.00); Calcium 8.8 mg/dL (8.7-10.3); Carbon Dioxide 26.8 mmol/L (21.6-31.8); Chol/HDL Ratio 3.77; Magnesium 1.7 mg/dL (1.5-2.4); Non-African American GFR(CKD) 89.2 (60.0-200.0); Total Bilirubin 0.4 mg/dL (0.2-1.2); Total Protein 5.8 g/dL (6.2-8.2)
== END | disposition home or self-care (01) ==
LOC: LABWHC1 11:04
PROVIDERS: ATTEND Family Medicine
DX: E11.65 Type 2 diabetes mellitus with hyperglycemia (principal); I10 Essential (primary) hypertension; E27.40 Unspecified adrenocortical insufficiency; E78.5 Hyperlipidemia, unspecified; D64.9 Anemia, unspecified
CPT/HCPCS: 36415; 80053; 80061; 82306; 82550; 82607; 83036; 83540; 83550; 83735; 84439; 84443; 85025

== ENCOUNTER → 2021-06-12 | Outpatient (CLI) | payer MEDICARE ==
[2021-06-12 14:33] LABS: Basophils # (A) 0.04 X 10*3/uL (0.00-0.10); Basophils % (A) 0.7 %; Eosinophils # (A) 0.22 X 10*3/uL (0.04-0.35); Eosinophils % (A) 3.6 %; HCT 42.2 % (39.6-50.0); HGB 13.2 g/dL (13.0-17.0); Lymphocytes # (A) 1.35 X 10*3/uL (0.90-5.00); Lymphocytes % (A) 22.1 %; MCH 27.5 pg (27.0-32.0); MCHC 31.3 g/dL (32.0-37.0); MCV 87.9 fL (80.0-97.0); Mean Platelet Volume 9.6 fL (9.5-12.2); Monocytes # (A) 0.53 X 10*3/uL (0.20-1.00); Monocytes % (A) 8.7 %; Neutrophils # (A) 3.95 X 10*3/uL (1.80-7.70); Neutrophils % (A) 64.6 %; Platelet Count 299 X 10*3/uL (140-440); RDW 18.6 % (11.5-14.5); WBC 6.11 X 10*3/uL (4.50-10.00)
[2021-06-12 14:49] LABS: African American GFR (CKD) 103.4 (60.0-200.0); Albumin 3.5 g/dL (3.80-4.90); Albumin/Globulin Ratio 1.67 (1.60-3.17); Anion Gap 6.4 mmol/L (4.00-12.00); Calcium 8.6 mg/dL (8.7-10.3); Carbon Dioxide 26.6 mmol/L (21.6-31.8); Chol/HDL Ratio 6.11; Globulin 2.1 g/dL (1.6-3.3); LDL Cholesterol,Calculated 106.6 mg/dL (0.0-131.0); Non-African American GFR(CKD) 89.2 (60.0-200.0); Total Bilirubin 0.2 mg/dL (0.2-1.2); Total Protein 5.6 g/dL (6.2-8.2); VLDL Calculation 36.4 mg/dL (5.00-40.00)
[2021-06-12 14:50] LABS: % Iron Saturation 10.41 (15.00-50.00)
[2021-06-12 14:58] LABS: T4, Free (Free Thyroxine) 1.1 ng/dL (0.80-1.80)
[2021-06-12 17:07] LABS: Hemoglobin A1C 6.4 % (4.0-6.0)
== END | disposition home or self-care (01) ==
LOC: LABWHC1 08:40
PROVIDERS: ATTEND Internal Medicine
DX: E11.65 Type 2 diabetes mellitus with hyperglycemia (principal); E27.40 Unspecified adrenocortical insufficiency; E78.5 Hyperlipidemia, unspecified; D64.9 Anemia, unspecified; M54.30 Sciatica, unspecified side
CPT/HCPCS: 36415; 80053; 80061; 82024; 82533; 82550; 82607; 83036; 83540; 83550; 84439; 84443; 85025

== ENCOUNTER → 2021-10-06 | Outpatient (CLI) | payer MEDICARE ==
--- NOTE | 2021-10-06 16:10 | BD ---
EXAMINATION TYPE: Axial Bone Density DATE OF EXAM: 10/06/2021 COMPARISON: NONE CLINICAL HISTORY: Height: 68.5 IN Weight: 194 LBS FRAX RISK QUESTIONS: Family History (Parent hip fracture): UNKNOWN Glucocorticoids (More than 3mos): CORTISOL 30MG/DAY (Ex: prednisone, prednisolone, methylprednisolone, dexamethasone, and hydrocortisone). RISK FACTORS HISTORY OF: Family History of Osteoporosis: UNKNOWN Active: YES Adrenal Insufficiency: YES MEDICATIONS: Prednisone or other steroids: CORTISOL 30/MG PER DAY FOR 6 MONTHS Additional Medications: CALCIUM, VIT D, CORTISOL 30 MG/DAY,DIABETES MEDS, FLOMAX, FINASTERIDE, NEURON TIN, NORCO, TRAZODONE, LANSOPRAZOLE, XANAX, ELIQUIS, PLAVIX, FLEXERIL,HYDROCORTISONE, EXAM MEASUREMENTS: Bone mineral densitometry was performed using the EGT System. Bone mineral density as measured about the Lumbar spine is: ----- L1-L4(G/cm2): 1.197 T Score Values are as follows: ----- L2: -0.6 ----- L3: -0.4 ----- L4: 0.9 ----- L1-L4: 0.1 Bone mineral density BASELINE Bone mineral density about the R hip (g/cm2): 0.960 Bone mineral density about the L hip (g/cm2): 0.926 T Score values are as follows: -----R Neck: -0.6 -----L Neck: -0.8 -----R Total: 0.7 -----L Total: 0.9 Bone mineral density BASELINE IMPRESSION: Normal (Values between +1 and -1 indicate normal bone mass). Consider repeating this study in 5 year s or sooner if there is some new clinical indication. NOTE: T-SCORE=SD OF THE YOUNG ADULT MEAN.
== END | disposition home or self-care (01) ==
LOC: RADBDWWP 13:19
PROVIDERS: ATTEND Family Medicine
DX: M89.9 Disorder of bone, unspecified (principal)
CPT/HCPCS: 77080

== ENCOUNTER 2021-10-25 11:28 | Inpatient (IN) | payer MEDICARE ==
[2021-10-25] MEDS ORDERED: SODIUM CHLORIDE 0.9% 1,000 ML IV STA (12:34)
[2021-10-25] MEDS ORDERED: ACETAMINOPHEN TAB 500 MG TAB PO STA (12:34)
[2021-10-25] MEDS ORDERED: KETOROLAC 30 MG/ML 1 ML VIAL IVP STA (12:34)
--- NOTE | 2021-10-25 12:41 | ED ---
General Adult HPI - General Chief complaint: Urogenital Stated complaint: UTI Time Seen by Provider: 10/25/21 12:03 Source: patient Mode of arrival: ambulatory Limitations: no limitations - History of Present Illness Initial comments: Dictation was produced using MOG dictation software. please excuse any grammatical, word or spelling errors. Chief Complaint: 71-year-old male sent in from urology office for concerns of prostatitis. History of Present Illness: Patient 71-year-old male for the past 7 days he has been having symptoms of fevers, chills, constipation and dysuria. He was at his urologists office being evaluated and sent to the emergency department for concerns of infected prostate versus septic UTI. Patient states that last week he went in for a routine appointment with the urologist. He had his prostate evaluated rectally. Since then patient has been having these symptoms. He also complains of mild shortness of breath and fever. Her bowel movement over 5 days. States that he does have trouble urinating as well. Patient is vaccinated for COVID-19. He also got his boosters. No obvious sick contacts. The ROS documented in this emergency department record has been reviewed and confirmed by me. Those systems with pertinent positive or negative responses have been documented in the HPI. All other systems are other negative and/or noncontributory. PHYSICAL EXAM: General Impression: Alert and oriented x3, not in acute distress HEENT: Normocephalic atraumatic, extra-ocular movements intact, pupils equal and reactive to light bilaterally, mucous membranes moist. Cardiovascular: Heart regular rate and rhythm Chest: Able to complete full sentences, no retractions, no tachypnea Abdomen: abdomen soft, mild diffuse tenderness, mild tympany to percussion, non- distended, no organomegaly Musculoskeletal: Pulses present and equal in all extremities, no peripheral edema Motor: no focal deficits noted Neurological: CN II-XII grossly intact, no focal motor or sensory deficits noted Skin: Intact with no visualized rashes Psych: Normal affect and mood ED course: 71-year-old male sent in by urologist for concerns of prosthetic infection. Vital signs upon arrival shows temperature 100.6, heart rate of 123, 88% on room air Laboratory evaluation obtained. CBC unremarkable. Metabolic panel is negative. Urinalysis shows 10 white blood cells. Coronal virus is negative. Chest x-ray shows patchy perihilar infiltrates concerning for COVID-19. Computed tomography scan of the abdomen shows no acute processes. Patient reevaluated at the bedside so hypoxic requiring oxygen therapy. There is concern of bacterial pneumonia versus COVID-19. Patient given Decadron started on antibiotics. Patient case discussed Dr. Rashid who is willing to patient's care. Pulmonology on consult. EKG interpretation: Ventricular rate 101, sinus tachycardia,. Interval 174, QRS 82, QTC 425. No ID prolongation, no QTC prolongation, no ST or T-wave changes noted. Overall, this EKG is unremarkable - Related Data Home Medications Medication Instructions Recorded Confirmed Finasteride [Proscar] 5 mg PO HS 10/21/14 04/27/20 Gabapentin [Neurontin] 600 mg PO QAM 10/21/14 04/27/20 Gabapentin 1,200 mg PO HS 04/09/16 04/27/20 traZODone HCL 150 mg PO HS 04/09/16 04/27/20 Albuterol Nebulized [Ventolin 2.5 mg INHALATION RT-QID PRN 06/12/19 04/27/20 Nebulized] Budesonide-Formot 160-4.5 Mcg 2 puff INHALATION RT-BID 12/29/19 04/27/20 [Symbicort 160-4.5 Mcg Inhaler] HYDROcodone/APAP 5-325MG [Palmer 1 tab PO TID PRN 12/29/19 04/27/20 5-325] Omeprazole Magnesium [PriLOSEC OTC] 20 mg PO BID 12/29/19 04/27/20 Tiotropium 18 Mcg/Puff [Spiriva] 1 puff INHALATION RT-BID 12/29/19 04/27/20 Tamsulosin HCl [Flomax] 0.4 mg PO BID 01/12/20 04/27/20 Butalbital/Acetaminophen 1 tab PO Q4H PRN 03/24/20 04/27/20 [Butalbital/Acetaminophen 50-300 Tab] Cyclobenzaprine [Flexeril] 10 mg PO HS 03/24/20 04/27/20 Furosemide [Lasix] 40 mg PO DAILY 03/24/20 04/27/20 Metoprolol Tartrate [Lopressor] 25 mg PO BID 03/24/20 04/27/20 Pravastatin Sodium 80 mg PO HS 03/24/20 04/27/20 Verapamil [Isoptin] 40 mg PO DAILY 03/24/20 04/27/20 metFORMIN HCL [Glucophage] 500 mg PO DAILY 03/24/20 04/27/20 ALPRAZolam [Xanax] 1 mg PO DAILY PRN 03/25/20 04/27/20 Escitalopram [Lexapro] 20 mg PO DAILY 03/25/20 04/27/20 Previous Rx's Medication Instructions Recorded Nitroglycerin Sl Tabs [Nitrostat] 0.4 mg SUBLINGUAL Q5M PRN #25 tab 12/31/19 Apixaban [Eliquis] 5 mg PO BID #60 tab 01/14/20 Clopidogrel [Plavix] 75 mg PO DAILY #30 tab 01/14/20 Allergies Allergy/AdvReac Type Severity Reaction Status Date / Time No Known Allergies Allergy Verified 10/25/21 11:37 Review of Systems ROS Statement: Those systems with pertinent positive or pertinent negative responses have been documented in the HPI. ROS Other: All systems not noted in ROS Statement are negative. Past Medical History Past Medical History: COPD, CVA/TIA, Diabetes Mellitus, GERD/Reflux, Hearing Disorder / Deafness, Hyperlipidemia, Myocardial Infarction ([place]), Osteoarthritis (OA), Pneumonia, Prostate Disorder, Pulmonary Embolus (PE), Respiratory Disorder Additional Past Medical History / Comment(s): pulmonary embolism/R lower lobe pneumonia/acute hypoxic failure. Portal bollous emphysema. diabetes, low back pain with bilateral sciatica; restless leg syndrome; migraines, TIA , BPH, hard of hearing bilaterally, , diverticulosis. New onset diabetes 08/11/19, multiple pneumothorax Last Myocardial Infarction Date:: 12/30/2019 History of Any Multi-Drug Resistant Organisms: None Reported Past Surgical History: Heart Catheterization With Stent, Hernia Repair, Orthopedic Surgery, Tonsillectomy Additional Past Surgical History / Comment(s): Septoplasty/ESSS, EGD, colonoscopy with benign polyp, R inguinal hernia, umbilical hernia, pain clinic procedures for back pain, atilio fundloplication. Past Anesthesia/Blood Transfusion Reactions: No Reported Reaction Date of Last Stent Placement:: Past Psychological History: PTSD Smoking Status: Never smoker Past Alcohol Use History: None Reported Past Drug Use History: None Reported - Past Family History Father History Unknown: Yes Family Medical History: No Reported History, Unable to Obtain Additional Family Medical History / Comment(s): Pt was adopted. Mother History Unknown: Yes Additional Family Medical History / Comment(s): Pt was adopted. Daughter(s) Additional Family Medical History / Comment(s): Children do not have any major medical problems. No history of blood clots. General Exam Limitations: no limitations Course Vital Signs 10/25/21 10/25/21 11:37 13:23 Temperature 100.6 F H Pulse Rate 123 H 98 Respiratory 18 18 Rate Blood Pressure 121/82 119/77 O2 Sat by Pulse 88 L 91 L Oximetry Medical Decision Making - Lab Data Result diagrams: 10/25/21 14:31 10/25/21 12:42 Lab Results 10/25/21 10/25/21 10/25/21 Range/Units 12:42 12:42 12:42 WBC (3.8-10.6) k/uL RBC OPERATIONS FORESTER Hgb OPERATIONS FORESTER Hct OPERATIONS FORESTER MCV OPERATIONS FORESTER MCH OPERATIONS FORESTER MCHC OPERATIONS FORESTER RDW OPERATIONS FORESTER Plt Count OPERATIONS FORESTER MPV OPERATIONS FORESTER Neutrophils % OPERATIONS FORESTER Lymphocytes % OPERATIONS FORESTER Monocytes % OPERATIONS FORESTER Eosinophils % OPERATIONS FORESTER Basophils % OPERATIONS FORESTER Neutrophils # OPERATIONS FORESTER Lymphocytes # OPERATIONS FORESTER Monocytes # OPERATIONS FORESTER Eosinophils # OPERATIONS FORESTER Basophils # OPERATIONS FORESTER Hypochromasia OPERATIONS FORESTER Sodium 135 L (137-145) mmol/L Potassium 4.0 (3.5-5.1) mmol/L Chloride 105 (98-107) mmol/L Carbon Dioxide 22 (22-30) mmol/L Anion Gap 8 mmol/L BUN 11 (9-20) mg/dL Creatinine 0.98 (0.66-1.25) mg/dL Est GFR (CKD-EPI)AfAm 89 (>60 ml/min/1.73 sqM) Est GFR (CKD-EPI)NonAf 77 (>60 ml/min/1.73 sqM) Glucose 128 H (74-99) mg/dL Plasma Lactic Acid Leon (0.7-2.0) mmol/L Calcium 8.5 (8.4-10.2) mg/dL Urine Color Yellow Urine Appearance Clear (Clear) Urine pH 7.0 (5.0-8.0) Ur Specific [place] 1.027 (1.001-1.035) Urine Protein Trace H (Negative) Urine Glucose (UA) Negative (Negative) Urine Ketones Negative (Negative) Urine Blood Negative (Negative) Urine Nitrite Negative (Negative) Urine Bilirubin Negative (Negative) Urine Urobilinogen 6.0 (<2.0) mg/dL Ur Leukocyte Esterase Small H (Negative) Urine RBC 4 (0-5) /hpf Urine WBC 10 H (0-5) /hpf Urine Mucus Rare H (None) /hpf Coronavirus (PCR) (Not Detectd) 10/25/21 10/25/21 10/25/21 Range/Units 12:42 13:38 14:31 WBC 8.7 (3.8-10.6) k/uL RBC 4.40 Hgb 13.3 Hct 40.9 MCV 93.0 MCH 30.3 MCHC 32.5 RDW 13.8 Plt Count 149 L MPV 7.0 Neutrophils % 80 Lymphocytes % 11 Monocytes % 5 Eosinophils % 1 Basophils % 0 Neutrophils # 7.0 Lymphocytes # 0.9 L Monocytes # 0.5 Eosinophils # 0.1 Basophils # 0.0 Hypochromasia Sodium (137-145) mmol/L Potassium (3.5-5.1) mmol/L Chloride (98-107) mmol/L Carbon Dioxide (22-30) mmol/L Anion Gap mmol/L BUN (9-20) mg/dL Creatinine (0.66-1.25) mg/dL Est GFR (CKD-EPI)AfAm (>60 ml/min/1.73 sqM) Est GFR (CKD-EPI)NonAf (>60 ml/min/1.73 sqM) Glucose (74-99) mg/dL Plasma Lactic Acid Leon 0.9 (0.7-2.0) mmol/L Calcium (8.4-10.2) mg/dL Urine Color Urine Appearance (Clear) Urine pH (5.0-8.0) Ur Specific [place] (1.001-1.035) Urine Protein (Negative) Urine Glucose (UA) (Negative) Urine Ketones (Negative) Urine Blood (Negative) Urine Nitrite (Negative) Urine Bilirubin (Negative) Urine Urobilinogen (<2.0) mg/dL Ur Leukocyte Esterase (Negative) Urine RBC (0-5) /hpf Urine WBC (0-5) /hpf Urine Mucus (None) /hpf Coronavirus (PCR) Not Detected (Not Detectd) Critical Care Time Critical Care Time: Yes Total Critical Care Time: 33 Disposition Clinical Impression: Hypoxia Disposition: ADMITTED IP TO THIS HOSP Condition: Fair Referrals: Giuliana,Dyana, MD [Primary Care Provider] - 1-2 days
[2021-10-25 13:12] LABS: Calcium 8.5 mg/dL (8.4-10.2)
[2021-10-25] MEDS ORDERED: ONDANSETRON 4 MG/2 ML VIAL IVP STA (13:17)
--- NOTE | 2021-10-25 13:31 | XR ---
EXAMINATION TYPE: XR chest 1V portable DATE OF EXAM: 10/25/2021 HISTORY: Shortness of breath. COMPARISON: 03/25/2020 TECHNIQUE: Single view of the chest is submitted. FINDINGS: Demonstrated are scattered senescent parenchymal change. Patchy perihilar and basilar infiltrates noted suspicious for Covid 19 pneumonia. The heart is stable . Hilar and mediastinal structures are within normal limits. Degenerative changes are seen of the dorsal spine. IMPRESSION: 1. Patchy perihilar and basilar infiltrates noted suspicious for Covid 19 pneumonia.
--- NOTE | 2021-10-25 13:32 | XR ---
EXAMINATION TYPE: XR abdomen 1V DATE OF EXAM: 10/25/2021 COMPARISON: NONE HISTORY: Pain TECHNIQUE: Single supine KUB image of the abdomen is obtained FINDINGS: Small bowel demonstrates no evidence for dilatation or air fluid levels. Gas and fecal material is seen in non-distended colon. No convincing evidence for pneumoperitoneum. No unusual calcifications. The lung bases are clear. The osseous structures are intact. IMPRESSION: 1. Overall nonobstructive bowel gas pattern. Mild fecal stasis noted.
[2021-10-25 13:48] LABS: Appearance,Urine Clear (Clear); Bilirubin,Urine Negative (Negative); Blood,Urine Negative (Negative); Color,Urine Yellow; Glucose,Urine (UA) Negative (Negative); Ketones,Urine Negative (Negative); Leukocyte Esterase,Urine Small (Negative); Mucus,Urine Rare /hpf; Nitrite,Urine Negative (Negative); Protein,Urine Trace (Negative); RBC,Urine 4 /hpf (0-5); Specific Gravity,Urine 1.027 (1.001-1.035); WBC,Urine 10 /hpf (0-5)
[2021-10-25 14:41] LABS: Basophils % (A) 0 %; Eosinophils # (A) 0.1 k/uL (0-0.7); Eosinophils % (A) 1 %; HCT 40.9 % (39.0-53.0); HGB 13.3 gm/dL (13.0-17.5); Lymphocytes # (A) 0.9 k/uL (1.0-4.8); Lymphocytes % (A) 11 %; MCH 30.3 pg (25.0-35.0); MCHC 32.5 g/dL (31.0-37.0); Monocytes # (A) 0.5 k/uL (0-1.0); Monocytes % (A) 5 %; Neutrophils % (A) 80 %; Platelet Count 149 k/uL (150-450); RDW 13.8 % (11.5-15.5); WBC 8.7 k/uL (3.8-10.6)
--- NOTE | 2021-10-25 14:58 | CT ---
EXAMINATION TYPE: CT abdomen pelvis w con DATE OF EXAM: 10/25/2021 COMPARISON: 02/16/2016 HISTORY: Anemia, abdominal pain. CT DLP: 1398.8 mGycm CONTRAST: CT scan of the abdomen and pelvis is performed without Oral Contrast and with IV Contrast, patient in jected with 100 mL of Isovue 300. FINDINGS: LUNG BASES-: Basilar infiltrates noted correlate for pneumonia. Small sliding-type hernia. LIVER/GB: No calcified gallstones. Small hypoattenuating lesions within the left hepatic lobe measu ring 1.3 cm and 1.2 cm respectively may reflect cysts. Ultrasound correlation is advised. Biliary martha e is of normal caliber. PANCREAS: No inflammation. No distinct mass. SPLEEN: No splenic enlargement. No lesion seen. ADRENALS: No nodule. No thickening. KIDNEYS/BLADDER: Remote parenchymal insults left kidney. No hydronephrosis. No nephrolithiasis. No distinct renal mass. Urinary bladder grossly unremarkable. BOWEL: Normal appendix. Normal bowel caliber. No inflammation. GENITAL ORGANS: No gross abnormality. LYMPH NODES: No greater than 1cm abdominal or pelvic lymph nodes are appreciated. AORTA: No significant abnormality. OSSEOUS STRUCTURES: No significant abnormality is seen. OTHER: No significant additional abnormality is seen. IMPRESSION: 1. No acute process to account for the patient's symptoms.
[2021-10-25] MEDS ORDERED: DEXAMETHASONE SOD PHOSPHATE 10 MG/ML 1 ML VIAL IV STA (15:01)
[2021-10-25] MEDS ORDERED: LEVOFLOXACIN 750MG-D5W PMX 750 MG in DEXTROSE/WATER 1 150ML.BAG IVPB STA (15:33)
[2021-10-25] MEDS ORDERED: HYDROmorphone 0.5 MG/0.5 ML SYRINGE IVP STA (15:43)
[2021-10-25] MEDS ORDERED: NALOXONE 0.4 MG/ML 1 ML VIAL IV PRN (15:47)
[2021-10-25] MEDS ORDERED: ACETAMINOPHEN TAB 325 MG TAB PO PRN (15:47)
[2021-10-25] MEDS: SODIUM CHLORIDE 0.9% 1,000 ML IV SCH (18:34)
[2021-10-26] MEDS: traZODone HCL 50 MG TAB PO SCH ×2 (01:15→20:34)
[2021-10-26] MEDS: ALPRAZolam 1 MG TAB PO PRN (01:16)
[2021-10-26] MEDS: GABAPENTIN 400 MG CAP PO SCH (01:16)
[2021-10-26] MEDS: TAMSULOSIN 0.4 MG CAP.ER.24H PO SCH ×3 (01:16→20:34)
[2021-10-26] MEDS: HYDROcodone/APAP 7.5-325MG 1 EACH TAB PO PRN ×2 (01:16→20:39)
[2021-10-26] MEDS: PANTOPRAZOLE 40 MG TABLET PO SCH ×3 (01:16→20:34)
[2021-10-26] MEDS: ATORVASTATIN 40 MG TAB PO SCH ×2 (01:16→20:34)
[2021-10-26] MEDS: APIXABAN 5 MG TAB PO SCH ×3 (01:18→20:34)
--- NOTE | 2021-10-26 02:12 | P.HPIM ---
History of Present Illness H&P Date: 10/25/21 Chief Complaint: Difficulty urinating 71-year-old male with advanced COPD, recurrent pneumothorax, coronary artery disease, diabetes mellitus Patient has been having difficulty urinating for about 20 weeks now. He described dysuria, hesitancy requiring 2 bear down to be able to urinate, urinary retention. This has been going on for 1 week he is known to have BPH he had prostate exam about a week ago and he is planning on having TURP next year, however his symptoms started worsening over the past couple days associated with fevers chills and lower abdominal pain for which his urologist recommended that he comes for evaluation. He denies any hematuria denies any nausea vomiting denies any chest pain or trouble breathing Upon presentation to the ED he was found to be hypoxic on room air. Patient admits to using supplemental oxygen as needed at home when he feels short of breath he had multiple pneumothoraxes in the past with advanced COPD he had surgically removed the upper portions of bilateral lungs and he normally notices that his oxygen with dip to the high 80s however rebounds quickly back to the mid 90s without intervention and he rarely uses his home oxygen Patient tested negative for Covid, chest x-rays showed some nonspecific infiltrates CT of the abdomen was negative Initial vital signs in the ED showed tachycardia hypoxemia on room air and mild fever Review of Systems Pertinent positives as noted in HPI. All other systems were reviewed and are negative Past Medical History Past Medical History: COPD, CVA/TIA, Diabetes Mellitus, GERD/Reflux, Hearing Disorder / Deafness, Hyperlipidemia, Myocardial Infarction (NH), Osteoarthritis (OA), Pneumonia, Prostate Disorder, Pulmonary Embolus (PE), Respiratory Disorder Additional Past Medical History / Comment(s): pulmonary embolism/R lower lobe pneumonia/acute hypoxic failure. Portal bollous emphysema. diabetes, low back pain with bilateral sciatica; restless leg syndrome; migraines, TIA , BPH, hard of hearing bilaterally, , diverticulosis. New onset diabetes 08/11/19, multiple pneumothorax Last Myocardial Infarction Date:: 12/30/2019 History of Any Multi-Drug Resistant Organisms: None Reported Past Surgical History: Heart Catheterization With Stent, Hernia Repair, Orthopedic Surgery, Tonsillectomy Additional Past Surgical History / Comment(s): Septoplasty/ESSS, EGD, colonos copy with benign polyp, R inguinal hernia, umbilical hernia, pain clinic procedures for back pain, atilio fundloplication. Past Anesthesia/Blood Transfusion Reactions: No Reported Reaction Date of Last Stent Placement:: Past Psychological History: PTSD Additional Psychological History / Comment(s): Pt resides with his spouse. He uses no assistive device. He drives. He has a nebulizer and home oxygen as needed. Smoking Status: Never smoker Past Alcohol Use History: None Reported Additional Past Alcohol Use History / Comment(s): Pt started smoking in 1967 1-1-1/2 packs per day and quit in 1999 Past Drug Use History: None Reported - Past Family History Father History Unknown: Yes Family Medical History: No Reported History, Unable to Obtain Additional Family Medical History / Comment(s): Pt was adopted. Mother History Unknown: Yes Additional Family Medical History / Comment(s): Pt was adopted. Daughter(s) Additional Family Medical History / Comment(s): Children do not have any major medical problems. No history of blood clots. Medications and Allergies Home Medications Medication Instructions Recorded Confirmed Type Finasteride [Proscar] 5 mg PO HS 10/21/14 10/25/21 History Gabapentin [Neurontin] 600 mg PO DAILY 10/21/14 10/25/21 History Gabapentin 1,200 mg PO HS 04/09/16 10/25/21 History traZODone HCL 150 mg PO HS 04/09/16 10/25/21 History Omeprazole Magnesium [PriLOSEC OTC] 20 mg PO HS 12/29/19 10/25/21 History Tamsulosin HCl [Flomax] 0.4 mg PO BID 01/12/20 10/25/21 History Apixaban [Eliquis] 5 mg PO BID #60 tab 01/14/20 10/25/21 Rx Clopidogrel [Plavix] 75 mg PO DAILY #30 tab 01/14/20 10/25/21 Rx Butalbital/Acetaminophen 1 tab PO Q4H PRN 03/24/20 10/25/21 History [Butalbital/Acetaminophen 50-300 Tab] ALPRAZolam [Xanax] 1 mg PO HS PRN 03/25/20 10/25/21 History Albuterol Sulfate [Ventolin HFA] 2 puff INHALATION RT-HS 10/25/21 10/25/21 History Amoxicillin 500 mg PO Q8H 10/25/21 10/25/21 History Atorvastatin [Lipitor] 40 mg PO HS 10/25/21 10/25/21 History Ciprofloxacin HCl [Cipro] 250 mg PO BID 10/25/21 10/25/21 History Fluticasone/Umeclidin/Vilanter 1 puff INHALATION RT-DAILY 10/25/21 10/25/21 History [Trelegy Ellipta 100-62.5-25] HYDROcodone/APAP 7.5-325MG [[place] 1 tab PO Q4H PRN 10/25/21 10/25/21 History 7.5-325] Hydrocortisone 20 mg PO DAILY 10/25/21 10/25/21 History Lansoprazole [Prevacid] 30 mg PO DAILY 10/25/21 10/25/21 History Allergies Allergy/AdvReac Type Severity Reaction Status Date / Time No Known Allergies Allergy Verified 10/25/21 17:34 Physical Exam Vitals: Vital Signs Temp Pulse Pulse Resp BP BP Pulse Ox 10/25/21 23:38 97.6 F 66 16 148/98 94 L 10/25/21 22:29 81 16 141/95 93 L 10/25/21 20:00 66 16 127/91 97 10/25/21 17:00 98.1 F 90 18 126/78 95 10/25/21 13:23 98 18 119/77 91 L 10/25/21 11:37 100.6 F H 123 H 18 121/82 88 L Intake and Output 10/25/21 10/25/21 10/26/21 14:59 22:59 06:59 Other: Voiding Method Toilet Weight 90.718 kg 90.718 kg Constitutional: No acute distress, conversant, pleasant Eyes: Anicteric sclerae, moist conjunctiva, Pupils equal round reactive to light ENMT: NC/AT Oropharynx clear, no erythema, or exudates Neck: Supple, FROM, no masses, or JVD No carotid bruits No thyromegaly Lungs: Good breath sounds bilaterally, scattered and expiratory rhonchi Clear to percussion Normal respiratory effort, no accessory muscle use Cardiovascular: Heart regular in rate and rhythm, No murmurs, gallops, or rubs No peripheral edema Abdominal: Soft Nontender, no guarding, rebound or rigidity Abdomen moving with respiration Normoactive bowel sounds No hepatomegaly, No splenomegaly No palpable mass No abdominal wall hernia noted Skin: Normal temperature, tone, texture, turgor No induration No subcutaneous nodules No rash, lesions No ulcers Extremities: No digital cyanosis No clubbing Pedal pulses intact and symmetrical Radial pulses intact and symmetrical No calf tenderness Psychiatric: Alert and oriented to person, place and time Appropriate affect fair judgement Neuro Muscles Strength 5/5 in all 4 extremities Sensation to light touch grossly present throughout Cranial nerves II-XII grossly intact No focal sensory deficits Lymphatics: no palpable cervical or supraclavicular , or inguinal lymph nodes Results CBC & Chem 7: 10/25/21 14:31 10/25/21 12:42 Labs: Abnormal Lab Results - Last 24 Hours (Table) 10/25/21 10/25/21 10/25/21 Range/Units 12:42 12:42 14:31 Plt Count 149 L (150-450) k/uL Lymphocytes # 0.9 L (1.0-4.8) k/uL D-Dimer (<0.60) mg/L FEU Sodium 135 L (137-145) mmol/L Glucose 128 H (74-99) mg/dL Urine Protein Trace H (Negative) Ur Leukocyte Esterase Small H (Negative) Urine WBC 10 H (0-5) /hpf Urine Mucus Rare H (None) /hpf 10/25/21 Range/Units 15:02 Plt Count (150-450) k/uL Lymphocytes # (1.0-4.8) k/uL D-Dimer 1.25 H (<0.60) mg/L FEU Sodium (137-145) mmol/L Glucose (74-99) mg/dL Urine Protein (Negative) Ur Leukocyte Esterase (Negative) Urine WBC (0-5) /hpf Urine Mucus (None) /hpf Thrombosis Risk Factor Assmnt - Choose All That Apply Any of the Below Risk Factors Present?: Yes Each Factor Represents 1 point: Acute NH Other Risk Factors: Yes Each Risk Factor Represents 2 Points: Age 61-74 years Thrombosis Risk Factor Assessment Total Risk Factor Score: 3 Thrombosis Risk Factor Assessment Level: Moderate Risk Assessment and Plan Assessment: Sepsis with possible underlying prostatitis History of severe advanced BPH Plan Patient started on levofloxacin Urology consult Monitor urine output Continue with home meds finasteride and Flomax Urinalysis unremarkable IV fluid hydration with normal saline Acute on chronic hypoxic respiratory failure This has resolved spontaneously currently patient on room air with oxygen sats in the mid 90s Supplemental oxygen as needed Advanced COPD, resume home inhalers Incidental finding of elevated d-dimer Patient has history of blood clots venous thromboembolism and PE Continue with Eliquis twice a day Consider CTA of the chest if patient becomes significantly hypoxic Chronic conditions CAD status post stents resume home meds Diabetes mellitus hold oral hypoglycemic agents, insulin sliding scale DVT prophylaxis patient on Eliquis twice a day Patient is full code Anticipated length of stay less than 2 midnights
[2021-10-26 07:19] LABS: Glucose,Whole Blood 199 mg/dL (75-99)
[2021-10-26] MEDS ORDERED: INSULIN ASPART (NovoLOG) 100 UNIT/ML VIAL SQ SCH (07:30)
[2021-10-26] MEDS: INSULIN ASPART (NovoLOG) 100 UNIT/ML VIAL SQ SCH ×4 (07:31→22:23)
[2021-10-26] MEDS: GABAPENTIN 300 MG CAP PO SCH (07:32)
[2021-10-26] MEDS: CLOPIDOGREL 75 MG TAB PO SCH (07:32)
[2021-10-26] MEDS: HYDROCORTISONE 10 MG TAB PO SCH (07:32)
[2021-10-26] MEDS: SYMBICORT 80-4.5 MCG INHALER INHALATION SCH ×2 (10:47→21:29)
[2021-10-26] MEDS: IPRATROPIUM 0.5 MG/2.5 ML NEBU INHALATION SCH ×4 (10:48→21:29)
--- NOTE | 2021-10-26 11:45 | P.PN ---
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 Patient presented to the emergency department with a chief complaint of urinary retention and dysuria. Patient reports he has been undergoing difficulties with urination for approximately 5-6 months and undergoing her of urologist outpatient with plans for surgical intervention in October. Patient reports he last underwent a prostate examination by urologist one week ago and shortly after began experiencing fever, chills, suprapubic pain and dysuria. Patient reports he was started on antibiotic ciprofloxacin by his urologist and received no improvement. Patient reports he called his urologist and was instructed to come to the emergency department due to concerns of prostatitis. In the emergency department patient underwent full evaluation. CBC was unremarkable with the exception of thrombocytopenia with platelet count of 149. BMP unremarkable. Urinalysis negative for blood, protein, or infection. D-dimer elevated at 1.25. Patient underwent evaluation chest x-ray revealing patchy perihilar and basilar infiltrates noted. CT abdomen and pelvis with IV contrast revealing basilar infiltrates noted correlating with pneumonia and a small sliding-type hernia abdominal and pelvic CT negative for acute process. CT PE to be completed secondary to elevated d-dimer. EKG showing sinus tachycardia at 101 bpm with no noted T-wave or ST abnormalities. Covid PCR negative, influenza a and B PCR negative, and RSV negative. Patient currently denies respiratory complaints Physical exam: Vital signs reviewed and stable. General: Nontoxic, no distress and appears stated age. Derm: Skin warm and dry, normal coloration for ethnicity. Head: Atraumatic, normocephalic and symmetric. Eyes: EOMs intact, no lid lag, and anicteric sclera Mouth: no lip lesions, mucus membranes moist Cardiovascular: regular rate and rhythm with normal S1S2, no murmur, positive posterior tibial pulses bilaterally, and cap refill < 2 seconds. Lungs: Respirations even, regular, and unlabored on room air. Lungs with diffuse expiratory wheezes and no rhonchi, rales, or crackles. Abdominal: soft, nontender to palpation, no guarding, no appreciable organomegaly Ext: ROM intact. No gross muscle atrophy, no edema, no contractures Neuro: Speech clear, face symmetrical and CN II-XII grossly intact with no noted focal neuro deficits Psych: Alert and oriented to person, place, time, and situation. Appropriate and pleasant affect. Assessment and Plan of Care: Dysuria, fever, chills, and abdominal pain concerns for prostatitis History of advanced BPH -Continue Levaquin -Urology consulted, appreciate further recommendations -Bladder management, monitor for postvoid residuals -Continue finasteride and Flomax -Gentle hydration with IV fluids. Acute on chronic hypoxic respiratory failure in patient with advanced COPD home oxygen dependent, resolved -Chest x-ray revealing patchy perihilar and basilar infiltrates noted -Covid, influenza, and RSV negative -Continue oxygenation use as needed to maintain SpO2 equal to or greater than 92%. Currently on room air. -Patient on Levaquin secondary to concerns of prostatitis Elevated d-dimer -Patient on Eliquis twice daily -CT PE was ordered to be completed this morning [id number] diabetes mellitus -Hold oral hypoglycemic medication, the patient on glycemic protocol with NovoLog sliding scale. CODE STATUS: Full code DVT prophylaxis: Eliquis Discussed with: Patient and RN Anticipated discharge date: Clinical course to determine Anticipated discharge place: Home A total of 40 minutes was spent on the care of this complex patient more than 50% of the time was spent in counseling and care coordination. Objective - Vital Signs Vital signs: Vital Signs Temp 97.5 F L 10/26/21 08:00 Pulse 75 10/26/21 08:00 Resp 18 10/26/21 08:55 BP 126/86 10/26/21 08:00 Pulse Ox 91 L 10/26/21 08:00 Intake & Output 10/25/21 10/26/21 10/26/21 18:59 06:59 18:59 Weight 90.718 kg Other: Voiding Method Toilet Toilet Toilet - Labs CBC & Chem 7: 10/25/21 14:31 10/25/21 12:42 Labs: Abnormal Lab Results - Last 24 Hours (Table) 10/25/21 10/25/21 10/25/21 Range/Units 12:42 12:42 14:31 Plt Count 149 L (150-450) k/uL Lymphocytes # 0.9 L (1.0-4.8) k/uL D-Dimer (<0.60) mg/L FEU Sodium 135 L (137-145) mmol/L Glucose 128 H (74-99) mg/dL POC Glucose (mg/dL) (75-99) mg/dL Urine Protein Trace H (Negative) Ur Leukocyte Esterase Small H (Negative) Urine WBC 10 H (0-5) /hpf Urine Mucus Rare H (None) /hpf 10/25/21 10/26/21 Range/Units 15:02 07:18 Plt Count (150-450) k/uL Lymphocytes # (1.0-4.8) k/uL D-Dimer 1.25 H (<0.60) mg/L FEU Sodium (137-145) mmol/L Glucose (74-99) mg/dL POC Glucose (mg/dL) 199 H (75-99) mg/dL Urine Protein (Negative) Ur Leukocyte Esterase (Negative) Urine WBC (0-5) /hpf Urine Mucus (None) /hpf <Miya Qureshi A - Last Filed: 10/26/21 20:45> Subjective Sterling Valentin NP rendered care for this patient independently, reviewed the findings and plan as documented in the note above. Objective - Vital Signs Vital signs: Vital Signs Temp 97.7 F 10/26/21 14:00 Pulse 80 10/26/21 17:15 Resp 17 10/26/21 14:00 BP 128/81 10/26/21 14:00 Pulse Ox 94 L 10/26/21 14:00 Intake & Output 10/26/21 10/26/21 10/27/21 06:59 18:59 06:59 Other: Voiding Method Toilet Toilet # Voids 8 - Labs CBC & Chem 7: 10/25/21 14:31 10/25/21 12:42 Labs: Abnormal Lab Results - Last 24 Hours (Table) 10/26/21 10/26/21 10/26/21 Range/Units 07:18 12:12 16:39 POC Glucose (mg/dL) 199 H 187 H 219 H (75-99) mg/dL Microbiology - Last 24 Hours (Table) 10/25/21 12:45 Blood Culture - Preliminary Blood No Growth after 24 hours 10/25/21 12:30 Blood Culture - Preliminary Blood No Growth after 24 hours
[2021-10-26] MEDS ORDERED: RX INFO: IV CONTRAST WAS GIVEN 1 EACH MISC MISCELLANE PRN (12:03)
[2021-10-26 12:16] LABS: Glucose,Whole Blood 187 mg/dL (75-99)
--- NOTE | 2021-10-26 14:40 | P.GSCN ---
History of Present Illness Consult date: 10/26/21 History of present illness: 71-year-old male admitted to the hospital with fever possible prostatitis. He indicated for the past week he's been having difficulty urinating, complaining of hesitancy and dysuria. He does have history of UTIs and prostatitis in the past. Patient started taking Cipro at home, but did not notice any symptoms improvement with that. Urine analysis on presentation was not consistent with an infection. On presentation patient was febrile in the 100.6, and tachycardic at 123. He underwent a CT abdomen and pelvis that showed no abnormality within the bladder or prostate. He does have a long history of BPH, currently on Flomax and Proscar, he follows up with Dr. Osuna This morning on evaluation he indicated he's noticed significant symptoms improvement since starting IV Levaquin Review of Systems - Constitutional Reports chills, Reports fatigue - EENT Ears, nose, mouth and throat: Denies dysphagia - Cardiovascular Denies chest pain, Denies shortness of breath - Respiratory Reports cough, Reports dyspnea - Gastrointestinal Reports as per HPI - Genitourinary Reports dysuria, Denies hematuria - Integumentary Denies rash, Denies unusual bruising - Neurological Denies headaches, Denies syncope Past Medical History Past Medical History: COPD, CVA/TIA, Diabetes Mellitus, GERD/Reflux, Hearing Disorder / Deafness, Hyperlipidemia, Myocardial Infarction (PR), Osteoarthritis (OA), Pneumonia, Prostate Disorder, Pulmonary Embolus (PE), Respiratory Disorder Additional Past Medical History / Comment(s): pulmonary embolism/R lower lobe pneumonia/acute hypoxic failure. Portal bollous emphysema. diabetes, low back pain with bilateral sciatica; restless leg syndrome; migraines, TIA , BPH, hard of hearing bilaterally, , diverticulosis. New onset diabetes 08/11/19, multiple pneumothorax Last Myocardial Infarction Date:: 12/30/2019 History of Any Multi-Drug Resistant Organisms: None Reported Past Surgical History: Heart Catheterization With Stent, Hernia Repair, Orthopedic Surgery, Tonsillectomy Additional Past Surgical History / Comment(s): Septoplasty/ESSS, EGD, colonoscopy with benign polyp, R inguinal hernia, umbilical hernia, pain clinic procedures for back pain, atilio fundloplication. Past Anesthesia/Blood Transfusion Reactions: No Reported Reaction Date of Last Stent Placement:: Past Psychological History: PTSD Additional Psychological History / Comment(s): Pt resides with his spouse. He uses no assistive device. He drives. He has a nebulizer and home oxygen as needed. Smoking Status: Never smoker Past Alcohol Use History: None Reported Additional Past Alcohol Use History / Comment(s): Pt started smoking in 1967 1-1-1/2 packs per day and quit in 1999 Past Drug Use History: None Reported - Past Family History Father History Unknown: Yes Family Medical History: No Reported History, Unable to Obtain Additional Family Medical History / Comment(s): Pt was adopted. Mother History Unknown: Yes Additional Family Medical History / Comment(s): Pt was adopted. Daughter(s) Additional Family Medical History / Comment(s): Children do not have any major medical problems. No history of blood clots. Medications and Allergies Home Medications Medication Instructions Recorded Confirmed Type RX: Finasteride [Proscar] 5 mg PO HS 10/21/14 10/25/21 History RX: Gabapentin [Neurontin] 600 mg PO DAILY 10/21/14 10/25/21 History RX: Gabapentin 1,200 mg PO HS 04/09/16 10/25/21 History RX: traZODone HCL 150 mg PO HS 04/09/16 10/25/21 History RX: Omeprazole Magnesium [PriLOSEC 20 mg PO HS 12/29/19 10/25/21 History OTC] RX: Tamsulosin HCl [Flomax] 0.4 mg PO BID 01/12/20 10/25/21 History RX: Apixaban [Eliquis] 5 mg PO BID #60 tab 01/14/20 10/25/21 Rx RX: Clopidogrel [Plavix] 75 mg PO DAILY #30 tab 01/14/20 10/25/21 Rx RX: Butalbital/Acetaminophen 1 tab PO Q4H PRN 03/24/20 10/25/21 History [Butalbital/Acetaminophen 50-300 Tab] ALPRAZolam [Xanax] 1 mg PO HS PRN 03/25/20 10/25/21 History Albuterol Sulfate [Ventolin HFA] 2 puff INHALATION RT-HS 10/25/21 10/25/21 History Atorvastatin [Lipitor] 40 mg PO HS 10/25/21 10/25/21 History Ciprofloxacin HCl [Cipro] 250 mg PO BID 10/25/21 10/25/21 History Fluticasone/Umeclidin/Vilanter 1 puff INHALATION RT-DAILY 10/25/21 10/25/21 History [Trelegy Ellipta 100-62.5-25] HYDROcodone/APAP 7.5-325MG [[place] 1 tab PO Q4H PRN 10/25/21 10/25/21 History 7.5-325] Lansoprazole [Prevacid] 30 mg PO DAILY 10/25/21 10/25/21 History RX: Amoxicillin 500 mg PO Q8H 10/25/21 10/25/21 History RX: Hydrocortisone 20 mg PO DAILY 10/25/21 10/25/21 History Allergies Allergy/AdvReac Type Severity Reaction Status Date / Time No Known Allergies Allergy Verified 10/25/21 17:34 Surgical - Exam Vital Signs Temp Pulse Resp BP Pulse Ox 100.6 F H 123 H 18 121/82 88 L 10/25/21 11:37 10/25/21 11:37 10/25/21 11:37 10/25/21 11:37 10/25/21 11:37 - General no distress, no pain - Eyes normal ocular movement, no pale - ENT normal nares, normal mucosa - Respiratory normal expansion, normal respiratory effort - Abdomen Abdomen: soft, non tender - Psychiatric oriented to time, oriented to person, oriented to place Results - Labs 10/25/21 14:31 10/25/21 12:42 Abnormal Lab Results - Last 24 Hours (Table) 10/25/21 10/25/21 10/26/21 Range/Units 14:31 15:02 07:18 Plt Count 149 L (150-450) k/uL Lymphocytes # 0.9 L (1.0-4.8) k/uL D-Dimer 1.25 H (<0.60) mg/L FEU POC Glucose (mg/dL) 199 H (75-99) mg/dL 10/26/21 Range/Units 12:12 Plt Count (150-450) k/uL Lymphocytes # (1.0-4.8) k/uL D-Dimer (<0.60) mg/L FEU POC Glucose (mg/dL) 187 H (75-99) mg/dL - Imaging CT scan - pelvis: image reviewed (No abnormality within the prostate or bladder) Assessment and Plan Assessment: 71-year-old male noted to the hospital for possible prostatitis. Patient was febrile and tachycardic on presentation. Significant symptoms improvement following [address] showed no evidence of prostatic abscess or any bladder or prostate pathology. Urinalysis is not completely consistent with prostatitis, but of note he was on Cipro at home. At this time recommend belen nuing the Levaquin, if patient remains afebrile tomorrow then can be discharged home on PO Levaquin
[2021-10-26] MEDS: LEVOFLOXACIN 750MG-D5W PMX 750 MG in DEXTROSE/WATER 1 150ML.BAG IVPB SCH (15:09)
[2021-10-26 16:41] LABS: Glucose,Whole Blood 219 mg/dL (75-99)
--- NOTE | 2021-10-26 17:51 | P.CNPUL ---
History of Present Illness Consult date: 10/26/21 Reason for consult: dyspnea, cough History of present illness: 71-year-old male patient is very well-known to me. The patient COPD, bullous emphysema with a previous bullectomy that was performed at [facility] due to recurrent pneumothoraces. The patient is also known to have previous history of CVA/TIA, CAD with insertion of coronary stent, diabetes mellitus, impaired hearing, hyperlipidemia, previous history of pulmonary embolism and BPH. He came into the hospital for questionable prostatitis. He had fever and he was having difficulties with urination. He was complaining of hesitancy and dysuria. He does have history of UTIs in the past and prostatitis in the past. He was started on ciprofloxacin at home. His symptoms did not improve. He had a UA on presentation that was not consistent with infection. He had a fever of 100.6 and he was also tachycardic. CAT scan of the abdomen and pelvis showed no acute abnormalities. Chest x-ray showed patchy bilateral pulmonary infiltrates and the patient was started on Levaquin. Based on that, I was suspicious for underlying pneumonia and I proceeded with a CAT scan of the chest which confirmed presence of bilateral consolidation consistent with pneumonia. Note that his COVID 19 testing was negative and the patient was vaccinated for COVID 19 3. He is not producing much sputum at this point in time. On his blood work, has a white cell count of 8.7 with a hemoglobin of 13.3, his d-dimer is at 1.25, his influenza A and B screen was negative and RSV was also negative. UA is negative for infection and blood cultures of been sent and the results of the pending for now. Lactic acid level is at 0.9. The patient is in room air oxygen. He has a congested cough. Unable to bring up much of sputum. Review of Systems CONSTITUTIONAL: Well-developed no acute respiratory distress. EYES: No icterus sclerae, no conjunctivitis. EARS, NOSE, MOUTH, THROAT, and FACE: No sore throat, lymphadenopathy, carotid bruits or deformity. RESPIRATORY: Severe shortness of breath with chest pain cough and wheezes. CARDIOVASCULAR: Positive PND orthopnea and palpitation GASTROINTESTINAL: No Abd pain, Nausea or vomiting, no Diarrhea or constipation, No GI Bleed, no distention or masses. GENITOURINARY: Negative for Hematuria or UTI, no kidney stones. The patient has been having difficulty with urination INTEGUMENT/BREAST: Negative for any muscular injury with mild osteoarthritis.. HEMATOLOGIC/LYMPHATIC: Negative for bleed or purpura. MUSCULOSKELTAL: Negative for Myalgia or arthralgia. NEURLOGICAL: No LOC, Sz or syncope, blurred vision dizziness or abnormality.. BEHAVIORAL/PSYCH: Negative. ENDOCRINE: Negative. Past Medical History Past Medical History: COPD, CVA/TIA, Diabetes Mellitus, GERD/Reflux, Hearing Disorder / Deafness, Hyperlipidemia, Myocardial Infarction ([place]), Osteoarthritis (OA), Pneumonia, Prostate Disorder, Pulmonary Embolus ([place]), Respiratory Disorder Additional Past Medical History / Comment(s): pulmonary embolism/R lower lobe pneumonia/acute hypoxic failure. Portal bollous emphysema. diabetes, low back pain with bilateral sciatica; restless leg syndrome; migraines, TIA , BPH, hard of hearing bilaterally, , diverticulosis. New onset diabetes 08/11/19, multiple pneumothorax Last Myocardial Infarction Date:: 12/30/2019 History of Any Multi-Drug Resistant Organisms: None Reported Past Surgical History: Heart Catheterization With Stent, Hernia Repair, Orthopedic Surgery, Tonsillectomy Additional Past Surgical History / Comment(s): Septoplasty/ESSS, EGD, colonoscopy with benign polyp, R inguinal hernia, umbilical hernia, pain clinic procedures for back pain, atilio fundloplication. Past Anesthesia/Blood Transfusion Reactions: No Reported Reaction Date of Last Stent Placement:: Past Psychological History: PTSD Additional Psychological History / Comment(s): Pt resides with his spouse. He uses no assistive device. He drives. He has a nebulizer and home oxygen as needed. Smoking Status: Never smoker Past Alcohol Use History: None Reported Additional Past Alcohol Use History / Comment(s): Pt started smoking in 1967 1-1-1/2 packs per day and quit in 1999 Past Drug Use History: None Reported - Past Family History Father History Unknown: Yes Family Medical History: No Reported History, Unable to Obtain Additional Family Medical History / Comment(s): Pt was adopted. Mother History Unknown: Yes Additional Family Medical History / Comment(s): Pt was adopted. Daughter(s) Additional Family Medical History / Comment(s): Children do not have any major medical problems. No history of blood clots. Medications and Allergies Home Medications Medication Instructions Recorded Confirmed Type Finasteride [Proscar] 5 mg PO HS 10/21/14 10/25/21 History Gabapentin [Neurontin] 600 mg PO DAILY 10/21/14 10/25/21 History Gabapentin 1,200 mg PO HS 04/09/16 10/25/21 History traZODone HCL 150 mg PO HS 04/09/16 10/25/21 History Omeprazole Magnesium [PriLOSEC OTC] 20 mg PO HS 12/29/19 10/25/21 History Tamsulosin HCl [Flomax] 0.4 mg PO BID 01/12/20 10/25/21 History Apixaban [Eliquis] 5 mg PO BID #60 tab 01/14/20 10/25/21 Rx Clopidogrel [Plavix] 75 mg PO DAILY #30 tab 01/14/20 10/25/21 Rx Butalbital/Acetaminophen 1 tab PO Q4H PRN 03/24/20 10/25/21 History [Butalbital/Acetaminophen 50-300 Tab] ALPRAZolam [Xanax] 1 mg PO HS PRN 03/25/20 10/25/21 History Albuterol Sulfate [Ventolin HFA] 2 puff INHALATION RT-HS 10/25/21 10/25/21 History Amoxicillin 500 mg PO Q8H 10/25/21 10/25/21 History Atorvastatin [Lipitor] 40 mg PO HS 10/25/21 10/25/21 History Ciprofloxacin HCl [Cipro] 250 mg PO BID 10/25/21 10/25/21 History Fluticasone/Umeclidin/Vilanter 1 puff INHALATION RT-DAILY 10/25/21 10/25/21 History [Trelegy Ellipta 100-62.5-25] HYDROcodone/APAP 7.5-325MG [[place] 1 tab PO Q4H PRN 10/25/21 10/25/21 History 7.5-325] Hydrocortisone 20 mg PO DAILY 10/25/21 10/25/21 History Lansoprazole [Prevacid] 30 mg PO DAILY 10/25/21 10/25/21 History Allergies Allergy/AdvReac Type Severity Reaction Status Date / Time No Known Allergies Allergy Verified 10/25/21 17:34 Physical Exam Vitals: Vital Signs Temp Pulse Pulse Resp BP BP Pulse Ox 10/26/21 17:15 80 10/26/21 17:04 74 10/26/21 14:00 97.7 F 75 17 128/81 94 L 10/26/21 08:55 18 10/26/21 08:00 97.5 F L 75 18 126/86 91 L 10/25/21 23:41 66 16 10/25/21 23:38 97.6 F 66 16 148/98 94 L 10/25/21 22:29 81 16 141/95 93 L 10/25/21 20:00 66 16 127/91 97 Intake and Output 10/26/21 10/26/21 10/26/21 06:59 14:59 22:59 Other: Voiding Method Toilet Toilet General Appearance: Alert, cooperative, no distress, appears stated age. The breathing is nonlabored and the patient is currently on room in oxygen Neck HEENT: Supple, no lymphadenopathy, no thyroid enlargement, no carotid bruits. Lungs: Decreased breath sound bilaterally with worsening of the right side left side with fine rhonchi positive mild expiratory wheezes with slight decrease air exchange. Chest Wall: Decrease expansion with deep inspiration positive tenderness and no deformity was found on exam, no costochondral pain or discomfort. Heart: Irregular rate and rhythm, S1, S2 positive is 3 positive JVD. Back: Symmetric, no curvature, ROM normal, no CVA tenderness. Abdomen: Soft, non-tender, bowel sounds active all four quadrants, no masses, no organomegaly. Extremities: Extremities normal, atraumatic, no cyanosis or edema. Pulses: 2+ and symmetric. Skin: Skin color, texture, tugor normal, no rashes or lesions. Neurologic: Alert oriented x3 cranial nerves II through XII intact, no motor deficit, no abnormal balance or gait. Results - Laboratory Findings CBC and BMP: 10/25/21 14:31 10/25/21 12:42 PT/INR, D-dimer D-Dimer 1.25 mg/L FEU (<0.60) H 10/25/21 15:02 Abnormal lab findings: Abnormal Labs 10/25/21 10/25/21 10/25/21 12:42 12:42 14:31 Plt Count 149 L Lymphocytes # 0.9 L D-Dimer Sodium 135 L Glucose 128 H POC Glucose (mg/dL) Urine Protein Trace H Ur Leukocyte Esterase Small H Urine WBC 10 H Urine Mucus Rare H 10/25/21 10/26/21 10/26/21 15:02 07:18 12:12 Plt Count Lymphocytes # D-Dimer 1.25 H Sodium Glucose POC Glucose (mg/dL) 199 H 187 H Urine Protein Ur Leukocyte Esterase Urine WBC Urine Mucus 10/26/21 16:39 Plt Count Lymphocytes # D-Dimer Sodium Glucose POC Glucose (mg/dL) 219 H Urine Protein Ur Leukocyte Esterase Urine WBC Urine Mucus - Diagnostic Findings Chest x-ray: image reviewed CT scan - chest: image reviewed Assessment and Plan Plan: 1 bilateral pneumonia, likely bacterial rods and bilateral. The patient has some patchy consolidation bilaterally in the perihilar area more consistent with bacterial pneumonia. Currently on Levaquin. Note that the COVID 19 testing was negative and the patient has been vaccinated for COVID 19 3 including a booster shot. 2 COPD exacerbation secondary to above currently on bronchodilators. The patient limited on Trelegy Ellipta an outpatient basis in addition to albuterol nebulized treatments when necessary. 3 history of recurrent point is pneumothoraces and the patient undergone previous bullectomy 4 history of bullous emphysema 5 diabetes mellitus type 2 6 BPH 7 chronic diabetic neuropathy 8 hypertension 9 previous history of pulmonary embolism 10 coronary artery disease with previous non-STEMI and the patient has a coronary stent in place Plan Obtain blood cultures Obtain pro-calcitonin level Continue Levaquin for now Continue long-term and to coagulation with Eliquis 5 mg by mouth twice a day Past the patient to bring in his own Trelegy Ellipta from home. This can be is in the hospital. Meanwhile, the patient is receiving prednisone about treatments 4 times a day [id number] determination with ipratropium nebulized treatments Resume all medications Neurology consultation regarding his BPH We'll continue to follow
[2021-10-26] MEDS: SODIUM CHLORIDE 0.9% 1,000 ML IV SCH (18:48)
[2021-10-26] MEDS: FINASTERIDE 5 MG TAB PO SCH (20:34)
[2021-10-26] MEDS ORDERED: GABAPENTIN 400 MG CAP PO SCH (21:00)
[2021-10-26 21:04] LABS: Glucose,Whole Blood 219 mg/dL (75-99)
[2021-10-26] MEDS: ALBUTEROL NEBULIZED 2.5 MG/3 ML INHALATION SCH (21:29)
--- NOTE | 2021-10-26 22:53 | CT ---
EXAMINATION TYPE: CT chest w con DATE OF EXAM: 10/26/2021 COMPARISON: 01/11/2020 HISTORY: Hypoxic respiratory failure CT DLP: 495.5 mGycm Automated exposure control for dose reduction was used. CONTRAST: Performed with IV Contrast, patient injected with 100 mL of Isovue 300. Images obtained from the thoracic inlet to the diaphragm without IV contrast. There is bullous pulmonary emphysema. There is patchy reticular and nodular infiltrate in the left up per lobe and to a lesser extent the anterior aspect of the right upper lobe. There is no mediastinal adenopathy. Thoracic aorta is atheromatous. There is no evidence of filling defect in the pulmonary a rteries. There is small hiatal hernia. There is no pleural effusion. The lower lobes are fairly clear. There is some minimal reticular densi ty at the right posterior lung base. The thoracic spine is intact. Sternum is intact. Upper abdominal soft tissues are intact. IMPRESSION: Bullous pulmonary emphysema. Bilateral upper lobe pulmonary infiltrates are increased compared to old exam. This is likely inflammatory. There is clearing of the atelectasis to a large extent at the yeimy g bases compared to old exam.
[2021-10-27 07:51] LABS: Glucose,Whole Blood 132 mg/dL (75-99)
--- NOTE | 2021-10-27 08:04 | US ---
EXAMINATION TYPE: US liver DATE OF EXAM: 10/27/2021 COMPARISON: 09/06/2017 CLINICAL HISTORY: 71-year-old male liver lesions TECHNIQUE: Multiple sonographic images of the right upper quadrant are obtained. FINDINGS: EXAM MEASUREMENTS: Liver Length: 17.6 cm Gallbladder Wall: 0.3 cm CBD: 0.6 cm Right Kidney: 11.5 x 6.0 x 5.0 cm Pancreas: Obscured by bowel gas Liver: Slightly increased echogenicity. 2 echogenic lesions noted measuring 2.7 x 2.4 x 2.3 cm and th e left lobe and 2.7 x 2.5 x 2.1 cm in the inferior mid liver. This is in comparison to 2.4 and 1.6 cm , respectively, on the patient's 2017 exam. Gallbladder: wnl Evidence for sonographic Odell's sign: no CBD: wnl Right Kidney: no evidence of hydronephrosis IMPRESSION: 1. Borderline size liver (17.6 cm). Suspect mild fatty infiltration of the liver. 2. Echogenic lesions within the liver measuring 2.7 cm each (versus 2.4 and 1.6 cm back on the 2017 e xam). Enlarging hemangiomas are suspected. A benign etiology is favored given the indolent behavior. Recommend 6 month follow-up ultrasound to reassess. 2. No gallstones or biliary ductal dilatation.
--- NOTE | 2021-10-27 08:06 | P.PN ---
Subjective Progress Note Date: 10/27/21 No acute overnight events, has been afebrile, indicated that his dysuria is completely resolved at this time. No voiding issues Objective - Vital Signs Vital signs: Vital Signs Temp 97.8 F 10/27/21 06:00 Pulse 59 L 10/27/21 06:00 Resp 18 10/27/21 06:00 BP 118/81 10/27/21 06:00 Pulse Ox 95 10/27/21 06:00 Intake & Output 10/26/21 10/27/21 10/27/21 18:59 06:59 18:59 Other: Voiding Method Toilet Toilet # Voids 8 3 # Bowel Movements 0 - Constitutional General appearance: Present: no acute distress - Gastrointestinal General gastrointestinal: Present: soft. Absent: distended - Labs CBC & Chem 7: 10/25/21 14:31 10/25/21 12:42 Labs: Abnormal Lab Results - Last 24 Hours (Table) 10/26/21 10/26/21 10/26/21 Range/Units 12:12 12:13 16:39 POC Glucose (mg/dL) 187 H 219 H (75-99) mg/dL Procalcitonin 4.10 H (0.02-0.09) ng/mL 10/26/21 10/27/21 Range/Units 20:47 07:49 POC Glucose (mg/dL) 219 H 132 H (75-99) mg/dL Procalcitonin (0.02-0.09) ng/mL Microbiology - Last 24 Hours (Table) 10/25/21 12:45 Blood Culture - Preliminary Blood No Growth after 24 hours 10/25/21 12:30 Blood Culture - Preliminary Blood No Growth after 24 hours Assessment and Plan Assessment: 71-year-old male noted to the hospital for possible prostatitis. Patient was febrile and tachycardic on presentation. Significant symptoms improvement following [address] showed no evidence of prostatic abscess or any bladder or prostate pathology. Urinalysis is not completely consistent with prostatitis, but of note he was on Cipro at home. Patient afebrile overnight, urinary symptoms completely resolved -Okay for discharge from urology standpoint, we'll need 14 days of Levaquin -Can follow-up as an outpatient with Dr. Osuna in 2 weeks
[2021-10-27] MEDS: INSULIN ASPART (NovoLOG) 100 UNIT/ML VIAL SQ SCH ×4 (08:15→21:39)
[2021-10-27] MEDS: SYMBICORT 80-4.5 MCG INHALER INHALATION SCH ×2 (08:58→21:18)
[2021-10-27] MEDS: IPRATROPIUM 0.5 MG/2.5 ML NEBU INHALATION SCH ×5 (08:58→21:17)
[2021-10-27] MEDS: APIXABAN 5 MG TAB PO SCH ×2 (09:22→21:39)
[2021-10-27] MEDS: CLOPIDOGREL 75 MG TAB PO SCH (09:22)
[2021-10-27] MEDS: TAMSULOSIN 0.4 MG CAP.ER.24H PO SCH ×2 (09:22→21:39)
[2021-10-27] MEDS: PANTOPRAZOLE 40 MG TABLET PO SCH ×2 (09:22→21:38)
[2021-10-27] MEDS: HYDROCORTISONE 10 MG TAB PO SCH (09:22)
[2021-10-27] MEDS: HYDROcodone/APAP 7.5-325MG 1 EACH TAB PO PRN ×2 (09:36→21:38)
[2021-10-27] MEDS: GABAPENTIN 300 MG CAP PO SCH (09:37)
[2021-10-27 12:10] LABS: Glucose,Whole Blood 166 mg/dL (75-99)
--- NOTE | 2021-10-27 13:41 | P.DS ---
Providers Date of admission: 10/25/21 15:50 Expected date of discharge: 10/27/21 Attending physician: Kenny Rashid MD Consults: 10/25/21 15:49 Consult Physician Routine Consulting Provider: Clark Gastelum Consult Reason/Comments: hypoxic respiratory failure Do you want consulting provider notified?: Yes 10/26/21 02:14 Consult Physician Routine Consulting Provider: Chirs Osuna Consult Reason/Comments: BPH, urinary changes Do you want consulting provider notified?: Yes, Notify in am Primary care physician: Dyana Giordano Hospital Course: Discharge Diagnosis: Dysuria, fever, chills, and abdominal pain concerns for prostatitis History of advanced BPH Acute on chronic hypoxic respiratory failure in patient with bullous emphysema home oxygen dependent Elevated d-dimer [id number] diabetes mellitus -Hold oral hypoglycemic medication, the patient on glycemic protocol with NovoLog sliding scale. 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 Patient presented to the emergency department with a chief complaint of urinary retention and dysuria. Patient reports he has been undergoing difficulties with urination for approximately 5-6 months and undergoing her of urologist outpatient with plans for surgical intervention in October. Patient reports he last underwent a prostate examination by urologist one week ago and shortly after began experiencing fever, chills, suprapubic pain and dysuria. Patient reports he was started on antibiotic ciprofloxacin by his urologist and received no improvement. Patient reports he called his urologist and was instructed to come to the emergency department due to concerns of prostatitis. In the emergency department patient underwent full evaluation. CBC was unremarkable with the exception of thrombocytopenia with platelet count of 149. BMP unremarkable. Urinalysis negative for blood, protein, or infection. D-dimer elevated at 1.25. Patient underwent evaluation chest x-ray revealing patchy perihilar and basilar infiltrates noted. CT abdomen and pelvis with IV contrast revealing basilar infiltrates noted correlating with pneumonia and a small sliding-type hernia abdominal and pelvic CT negative for acute process. CT PE negative for pulmonary embolism revealing bullous emphysema with bilateral upper lobe consolidation concerning for possible pneumonia. EKG showing sinus tachycardia at 101 bpm with no noted T-wave or ST abnormalities. Covid PCR negative, influenza a and B PCR negative, and RSV negative. Liver ultrasound revealing mild fatty infiltration of the liver within the liver measuring 2.7 cm each slightly enlarged from previous exam in 2017, enlarging benign hemangiomas are suspected. Physical exam: Vital signs reviewed and stable. General: Nontoxic, no distress and appears stated age. Derm: Skin warm and dry, normal coloration for ethnicity. Head: Atraumatic, normocephalic and symmetric. Eyes: EOMs intact, no lid lag, and anicteric sclera Mouth: no lip lesions, mucus membranes moist Cardiovascular: regular rate and rhythm with normal S1S2, no murmur, positive posterior tibial pulses bilaterally, and cap refill < 2 seconds. Lungs: Respirations even, regular, and unlabored on room air. Lungs with diffuse expiratory wheezes and no rhonchi, rales, or crackles. Abdominal: soft, nontender to palpation, no guarding, no appreciable organomegaly Ext: ROM intact. No gross muscle atrophy, no edema, no contractures Neuro: Speech clear, face symmetrical and CN II-XII grossly intact with no noted focal neuro deficits Psych: Alert and oriented to person, place, time, and situation. Appropriate and pleasant affect. A total of 45 minutes of time were spent preparing this complex discharge summary. Patient Condition at Discharge: Fair Plan - Discharge Summary Discharge Rx Participant: No New Discharge Prescriptions: New Levofloxacin [Levaquin] 750 mg PO DAILY 13 Days #13 tab Continue Gabapentin [Neurontin] 600 mg PO DAILY Finasteride [Proscar] 5 mg PO HS traZODone HCL 150 mg PO HS Gabapentin 1,200 mg PO HS Omeprazole Magnesium [PriLOSEC OTC] 20 mg PO HS Tamsulosin HCl [Flomax] 0.4 mg PO BID Apixaban [Eliquis] 5 mg PO BID #60 tab Clopidogrel [Plavix] 75 mg PO DAILY #30 tab Butalbital/Acetaminophen [Butalbital/Acetaminophen 50-300 Tab] 1 tab PO Q4H PRN PRN Reason: Headache ALPRAZolam [Xanax] 1 mg PO HS PRN PRN Reason: Anxiety Fluticasone/Umeclidin/Vilanter [Trelegy Ellipta 100-62.5-25] 1 puff INHALATION RT-DAILY HYDROcodone/APAP 7.5-325MG [[place] 7.5-325] 1 tab PO Q4H PRN PRN Reason: Pain Albuterol Sulfate [Ventolin HFA] 2 puff INHALATION RT-HS Hydrocortisone 20 mg PO DAILY Atorvastatin [Lipitor] 40 mg PO HS Lansoprazole [Prevacid] 30 mg PO DAILY Discontinued Ciprofloxacin HCl [Cipro] 250 mg PO BID Amoxicillin 500 mg PO Q8H Discharge Medication List Finasteride [Proscar] 5 mg PO HS 10/21/14 [History] Gabapentin [Neurontin] 600 mg PO DAILY 10/21/14 [History] Gabapentin 1,200 mg PO HS 04/09/16 [History] traZODone HCL 150 mg PO HS 04/09/16 [History] Omeprazole Magnesium [PriLOSEC OTC] 20 mg PO HS 12/29/19 [History] Tamsulosin HCl [Flomax] 0.4 mg PO BID 01/12/20 [History] Apixaban [Eliquis] 5 mg PO BID #60 tab 01/14/20 [Rx] Clopidogrel [Plavix] 75 mg PO DAILY #30 tab 01/14/20 [Rx] Butalbital/Acetaminophen [Butalbital/Acetaminophen 50-300 Tab] 1 tab PO Q4H PRN 03/24/20 [History] ALPRAZolam [Xanax] 1 mg PO HS PRN 03/25/20 [History] Albuterol Sulfate [Ventolin HFA] 2 puff INHALATION RT-HS 10/25/21 [History] Atorvastatin [Lipitor] 40 mg PO HS 10/25/21 [History] Fluticasone/Umeclidin/Vilanter [Trelegy Ellipta 100-62.5-25] 1 puff INHALATION RT-DAILY 10/25/21 [History] HYDROcodone/APAP 7.5-325MG [[place] 7.5-325] 1 tab PO Q4H PRN 10/25/21 [History] Hydrocortisone 20 mg PO DAILY 10/25/21 [History] Lansoprazole [Prevacid] 30 mg PO DAILY 10/25/21 [History] Levofloxacin [Levaquin] 750 mg PO DAILY 13 Days #13 tab 10/27/21 [Rx] Follow up Appointment(s)/Referral(s): Dyana Giordano MD [Primary Care Provider] - 1-2 days Chris Osuna MD [STAFF PHYSICIAN] - 2 Weeks Activity/Diet/Wound Care/Special Instructions: Activity: As tolerated. Take breaks as needed. Diet: Heart healthy and carb consistent diet. Avoid salts, or foods with hidden salts such as canned or boxed foods and frozen dinners. Extra salt makes your heart work harder and traps the fluid in your body for longer. Special Instructions: Take all of your medications as directed and remember to keep all of your doctor's appointments and follow-up as needed. Thank you for allowing us to participate in your care, it was truly a pleasure having you for our patient!!! Wishing you a truly blessed, happy, and healthy New Year!!! Discharge Disposition: HOME SELF-CARE
[2021-10-27] MEDS: LEVOFLOXACIN 750MG-D5W PMX 750 MG in DEXTROSE/WATER 1 150ML.BAG IVPB SCH (14:58)
[2021-10-27] MEDS: SODIUM CHLORIDE 0.9% 1,000 ML IV SCH (14:59)
--- NOTE | 2021-10-27 15:04 | P.PN ---
Subjective Progress Note Date: 10/27/21 71-year-old male patient is very well-known to me. The patient COPD, bullous emphysema with a previous bullectomy that was performed at [facility] due to recurrent pneumothoraces. The patient is also known to have previous history of CVA/TIA, CAD with insertion of coronary stent, diabetes mellitus, impaired hearing, hyperlipidemia, previous history of pulmonary embolism and BPH. He came into the hospital for questionable prostatitis. He had fever and he was having difficulties with urination. He was complaining of hesitancy and dysuria. He does have history of UTIs in the past and prostatitis in the past. He was started on ciprofloxacin at home. His symptoms did not improve. He had a UA on presentation that was not consistent with infection. He had a fever of 100.6 and he was also tachycardic. CAT scan of the abdomen and pelvis showed no acute abnormalities. Chest x-ray showed patchy bilateral pulmonary infiltrates and the patient was started on Levaquin. Based on that, I was suspicious for underlying pneumonia and I proceeded with a CAT scan of the chest which confi rmed presence of bilateral consolidation consistent with pneumonia. Note that his COVID 19 testing was negative and the patient was vaccinated for COVID 19 3. He is not producing much sputum at this point in time. On his blood work, has a white cell count of 8.7 with a hemoglobin of 13.3, his d-dimer is at 1.25, his influenza A and B screen was negative and RSV was also negative. UA is negative for infection and blood cultures of been sent and the results of the pending for now. Lactic acid level is at 0.9. The patient is in room air oxygen. He has a congested cough. Unable to bring up much of sputum. On today's evaluation of 10/27/2021, seeing the patient for follow-up. He belen nues to have some cough and congestion and the CAT scan of the chest was completed yesterday and showed evidence of bilateral consolidation consistent with pneumonia and the patient is currently on Levaquin. No new labs available from today. The patient's COVID 19 testing is negative. Influenza A and B and RSV were all negative. His pro-calcitonin level was at 4.1 consistent with bacterial pneumonia. Note that his urine cultures were negative and the patient was cleared from the prostatitis and UTI standpoint. He is able to urinate. Blood cultures been negative. Objective - Vital Signs Vital signs: Vital Signs Temp 97.7 F 10/27/21 10:23 Pulse 62 10/27/21 10:23 Resp 16 10/27/21 10:23 BP 161/96 10/27/21 10:23 Pulse Ox 91 L 10/27/21 10:23 Intake & Output 10/26/21 10/27/21 10/27/21 18:59 06:59 18:59 Intake Total 200 Balance 200 Intake: Oral 200 Other: Voiding Method Toilet Toilet Toilet # Voids 8 3 # Bowel Movements 0 - Exam General Appearance: Alert, cooperative, no distress, appears stated age. The breathing is nonlabored and the patient is currently on room in oxygen Neck HEENT: Supple, no lymphadenopathy, no thyroid enlargement, no carotid bruits. Lungs: Decreased breath sound bilaterally with worsening of the right side left side with fine rhonchi positive mild expiratory wheezes with slight decrease air exchange. Chest Wall: Decrease expansion with deep inspiration positive tenderness and no deformity was found on exam, no costochondral pain or discomfort. Heart: Irregular rate and rhythm, S1, S2 positive is 3 positive JVD. Back: Symmetric, no curvature, ROM normal, no CVA tenderness. Abdomen: Soft, non-tender, bowel sounds active all four quadrants, no masses, no organomegaly. Extremities: Extremities normal, atraumatic, no cyanosis or edema. Pulses: 2+ and symmetric. Skin: Skin color, texture, tugor normal, no rashes or lesions. Neurologic: Alert oriented x3 cranial nerves II through XII intact, no motor deficit, no abnormal balance or gait. - Labs CBC & Chem 7: 10/25/21 14:31 10/25/21 12:42 Labs: Abnormal Lab Results - Last 24 Hours (Table) 10/26/21 10/26/21 10/26/21 Range/Units 12:13 16:39 20:47 POC Glucose (mg/dL) 219 H 219 H (75-99) mg/dL Procalcitonin 4.10 H (0.02-0.09) ng/mL 10/27/21 10/27/21 Range/Units 07:49 12:07 POC Glucose (mg/dL) 132 H 166 H (75-99) mg/dL Procalcitonin (0.02-0.09) ng/mL Microbiology - Last 24 Hours (Table) 10/25/21 12:45 Blood Culture - Preliminary Blood No Growth after 48 hours 10/25/21 12:30 Blood Culture - Preliminary Blood No Growth after 48 hours Assessment and Plan Plan: 1 bilateral pneumonia, likely bacterial rods and bilateral. The patient has some patchy consolidation bilaterally in the perihilar area more consistent with bacterial pneumonia. Currently on Levaquin. Note that the COVID 19 testing was negative and the patient has been vaccinated for COVID 19 3 including a booster shot. For now, the patient is a bacterial pneumonia. Pro-calcitonin level is elevated. The patient is doing well. The patient on room air oxygen. 2 COPD exacerbation secondary to above currently on bronchodilators. The patient limited on Trelegy Ellipta an outpatient basis in addition to albuterol nebulized treatments when necessary. 3 history of recurrent point is pneumothoraces and the patient undergone previous bullectomy 4 history of bullous emphysema 5 diabetes mellitus type 2 6 BPH 7 chronic diabetic neuropathy 8 hypertension 9 previous history of pulmonary embolism 10 coronary artery disease with previous non-STEMI and the patient has a coronary stent in place Plan Obtain blood cultures, results are negative for now Obtain pro-calcitonin level, levels are elevated consistent with bacterial pneumonia Continue Levaquin for now and the patient is responding to the treatment Continue long-term and to coagulation with Eliquis 5 mg by mouth twice a day Past the patient to bring in his own Trelegy Ellipta from home. This can be is in the hospital. Meanwhile, the patient is receiving prednisone about toro tments 4 times a day [id number] determination with ipratropium nebulized treatments Resume all medications Urology input is appreciated We'll continue to follownow, possible discharge in the next 24 hours. Repeat chest x-ray in a.m.
[2021-10-27 17:03] LABS: Glucose,Whole Blood 159 mg/dL (75-99)
--- NOTE | 2021-10-27 18:36 | P.PN ---
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 Patient presented to the emergency department with a chief complaint of urinary retention and dysuria. Patient reports he has been undergoing difficulties with urination for approximately 5-6 months and undergoing her of urologist outpatient with plans for surgical intervention in October. Patient reports he last underwent a prostate examination by urologist one week ago and shortly after began experiencing fever, chills, suprapubic pain and dysuria. Patient reports he was started on antibiotic ciprofloxacin by his urologist and received no improvement. Patient reports he called his urologist and was instructed to come to the emergency department due to concerns of prostatitis. In the emergency department patient underwent full evaluation. CBC was unremarkable with the exception of thrombocytopenia with platelet count of 149. BMP unremarkable. Urinalysis negative for blood, protein, or infection. D-dimer elevated at 1.25. Patient underwent evaluation chest x-ray revealing patchy perihilar and basilar infiltrates noted. CT abdomen and pelvis with IV contrast revealing basilar infiltrates noted correlating with pneumonia and a small sliding-type hernia abdominal and pelvic CT negative for acute process revealing small hypotension awaiting recommendations within the left hepatic lobe. CT PE negative for p ulmonary emboli revealing bullous pulmonary emphysema with bilateral upper lobe pulmonary infiltrates concerning for inflammatory process.. EKG showing sinus tachycardia at 101 bpm with no noted T-wave or ST abnormalities. Covid PCR negative, influenza a and B PCR negative, and RSV negative. Liver ultrasound revealing echogenic lesions within the liver measuring 2.7 cm slightly enlarged from previous examination in 2017 suspect enlarging hemangioma, likely benign. Patient has been seen and evaluated by urology recommending discharge home on 14 day course of Levaquin and to follow up in their office in 2 weeks. Pulmonology recommending patient be monitored again overnight for repeat x-ray tomorrow morning. Physical exam: Patient seen and evaluated at the bedside this morning. He reports feeling well and denies having any complaints or concerns at this time reports urinary retent ion and dysuria have improved. Patient continues to deny having increased shortness of breath or cough at this time. Vital signs reviewed and stable. General: Nontoxic, no distress and appears stated age. Derm: Skin warm and dry, normal coloration for ethnicity. Head: Atraumatic, normocephalic and symmetric. Eyes: EOMs intact, no lid lag, and anicteric sclera Mouth: no lip lesions, mucus membranes moist Cardiovascular: regular rate and rhythm with normal S1S2, no murmur, positive posterior tibial pulses bilaterally, and cap refill < 2 seconds. Lungs: Respirations even, regular, and unlabored on room air. Lungs with diffuse expiratory wheezes and no rhonchi, rales, or crackles. Abdominal: soft, nontender to palpation, no guarding, no appreciable organomegaly Ext: ROM intact. No gross muscle atrophy, no edema, no contractures Neuro: Speech clear, face symmetrical and CN II-XII grossly intact with no noted focal neuro deficits Psych: Alert and oriented to person, place, time, and situation. Appropriate and pleasant affect. Assessment and Plan of Care: Dysuria, fever, chills, and abdominal pain concerns for prostatitis History of advanced BPH -Continue Levaquin -Urology consulted, recommending discharge home on 14 day course of Levaquin and to follow up in their office in 2 weeks -Bladder management, monitor for postvoid residuals -Continue finasteride and Flomax -Received hydration with IV fluids Acute on chronic hypoxic respiratory failure in patient with advanced COPD and bullous emphysema home oxygen dependent -Chest x-ray revealing patchy perihilar and basilar infiltrates noted -Covid, influenza, and RSV negative -Continue oxygenation use as needed to maintain SpO2 equal to or greater than 92%. Currently on room air. -Patient currently on Levaquin -CT PE negative for pulmonary emboli revealing bullous pulmonary emphysema with bilateral upper lobe pulmonary infiltrates concerning for inflammatory process. -Pulmonology following, recommending monitoring overnight with repeat chest x- ray tomorrow morning. Elevated d-dimer -Patient on Eliquis twice daily -CT PE negative for pulmonary emboli revealing bullous pulmonary emphysema with bilateral upper lobe pulmonary infiltrates concerning for inflammatory process [id number]-[id number] diabetes mellitus -Hold oral hypoglycemic medication, the patient on glycemic protocol with NovoLog sliding scale. CODE STATUS: Full code DVT prophylaxis: Eliquis Discussed with: Patient and RN Anticipated discharge date: Tomorrow morning Anticipated discharge place: Home A total of 40 minutes was spent on the care of this complex patient more than 50% of the time was spent in counseling and care coordination. Objective - Vital Signs Vital signs: Vital Signs Temp 98.3 F 10/27/21 17:38 Pulse 63 10/27/21 17:38 Resp 16 10/27/21 17:38 BP 151/94 10/27/21 17:38 Pulse Ox 91 L 10/27/21 17:38 Intake & Output 10/26/21 10/27/21 10/27/21 18:59 06:59 18:59 Intake Total 400 Balance 400 Intake: Oral 400 Other: Voiding Method Toilet Toilet Toilet # Voids 8 3 2 # Bowel Movements 0 0 - Labs CBC & Chem 7: 10/25/21 14:31 10/25/21 12:42 Labs: Abnormal Lab Results - Last 24 Hours (Table) 10/26/21 10/26/21 10/27/21 Range/Units 12:13 20:47 07:49 POC Glucose (mg/dL) 219 H 132 H (75-99) mg/dL Procalcitonin 4.10 H (0.02-0.09) ng/mL 10/27/21 10/27/21 Range/Units 12:07 16:59 POC Glucose (mg/dL) 166 H 159 H (75-99) mg/dL Procalcitonin (0.02-0.09) ng/mL Microbiology - Last 24 Hours (Table) 10/25/21 12:45 Blood Culture - Preliminary Blood No Growth after 48 hours 10/25/21 12:30 Blood Culture - Preliminary Blood No Growth after 48 hours <Miya Qureshi - Last Filed: 10/27/21 20:20> Subjective Patient seen and examined independently. Patient was also seen by Sterling Valentin NP and case was discussed. I am in agreement with subjective, physical exam, assessment and plan as written above and amended below. Seen with present. Denies any pain. His urination is significantly better. States his breathing as well. Has no other complaints currently. Wants to go home in the morning. General: non toxic, no distress, appears at stated age Derm: warm, dry Head: atraumatic, normocephalic, symmetric Eyes: EOMI, no lid lag, anicteric sclera Mouth: no lip lesion, mucus membranes moist Cardiovascular: S1S2 reg, no murmur, positive posterior tibial pulse bilateral, Lungs: Coarse breath sounds bilateral, no rhonchi, no rales , no accessory muscle use Psych: Alert, oriented, appropriate affect Objective - Vital Signs Vital signs: Vital Signs Temp 98.3 F 10/27/21 17:38 Pulse 63 10/27/21 17:38 Resp 16 10/27/21 17:38 BP 151/94 10/27/21 17:38 Pulse Ox 91 L 10/27/21 17:38 Intake & Output 10/27/21 10/27/21 10/28/21 06:59 18:59 06:59 Intake Total 400 Balance 400 Intake: Oral 400 Other: Voiding Method Toilet Toilet # Voids 3 2 # Bowel Movements 0 0 - Labs CBC & Chem 7: 10/25/21 14:31 10/25/21 12:42 Labs: Abnormal Lab Results - Last 24 Hours (Table) 10/26/21 10/26/21 10/27/21 Range/Units 12:13 20:47 07:49 POC Glucose (mg/dL) 219 H 132 H (75-99) mg/dL Procalcitonin 4.10 H (0.02-0.09) ng/mL 10/27/21 10/27/21 Range/Units 12:07 16:59 POC Glucose (mg/dL) 166 H 159 H (75-99) mg/dL Procalcitonin (0.02-0.09) ng/mL Microbiology - Last 24 Hours (Table) 10/25/21 12:45 Blood Culture - Preliminary Blood No Growth after 48 hours 10/25/21 12:30 Blood Culture - Preliminary Blood No Growth after 48 hours
[2021-10-27 20:50] LABS: Glucose,Whole Blood 133 mg/dL (75-99)
[2021-10-27 21:05] VITALS: RESP 15
[2021-10-27] MEDS: ALBUTEROL NEBULIZED 2.5 MG/3 ML INHALATION SCH (21:17)
[2021-10-27] MEDS: GABAPENTIN 400 MG CAP PO SCH (21:37)
[2021-10-27] MEDS: ATORVASTATIN 40 MG TAB PO SCH (21:38)
[2021-10-27] MEDS: FINASTERIDE 5 MG TAB PO SCH (21:39)
[2021-10-27] MEDS: traZODone HCL 50 MG TAB PO SCH (21:39)
[2021-10-27] MEDS: ALPRAZolam 1 MG TAB PO PRN (21:43)
--- NOTE | 2021-10-28 07:14 | XR ---
EXAMINATION TYPE: XR chest 1V DATE OF EXAM: 10/28/2021 6:53 AM COMPARISON:Chest radiograph from 10/25/2021, CT 10/26/2021 CLINICAL INDICATION:Male, 71 years old with history of Follow-up pneumonia; TECHNIQUE: Frontal view of the chest. FINDINGS: Lungs/Pleura: Persistent airspace opacities predominantly within the lower lungs. Lucencies within th e upper lungs consistent with prior CT of bullous emphysema. Pulmonary vascularity: Unremarkable. Heart/mediastinum: Cardiomediastinal silhouette is unremarkable. Musculoskeletal: No acute osseous pathology. IMPRESSION: Persistent basilar airspace opacities superimposed on bullous emphysema.
[2021-10-28 07:17] LABS: Glucose,Whole Blood 124 mg/dL (75-99)
[2021-10-28] MEDS: INSULIN ASPART (NovoLOG) 100 UNIT/ML VIAL SQ SCH (07:49)
[2021-10-28] MEDS: HYDROCORTISONE 10 MG TAB PO SCH (07:55)
[2021-10-28] MEDS: PANTOPRAZOLE 40 MG TABLET PO SCH (07:55)
[2021-10-28] MEDS: APIXABAN 5 MG TAB PO SCH (07:55)
[2021-10-28] MEDS: GABAPENTIN 300 MG CAP PO SCH (07:55)
[2021-10-28] MEDS: CLOPIDOGREL 75 MG TAB PO SCH (07:56)
[2021-10-28] MEDS: HYDROcodone/APAP 7.5-325MG 1 EACH TAB PO PRN (07:58)
[2021-10-28] MEDS: TAMSULOSIN 0.4 MG CAP.ER.24H PO SCH (08:01)
[2021-10-28] MEDS: SYMBICORT 80-4.5 MCG INHALER INHALATION SCH (08:14)
[2021-10-28] MEDS: IPRATROPIUM 0.5 MG/2.5 ML NEBU INHALATION SCH (08:14)
--- NOTE | 2021-10-28 10:23 | P.DS ---
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 Currently on room air. -Patient currently on Levaquin -CT PE negative for pulmonary emboli revealing bullous pulmonary emphysema with bilateral upper lobe pulmonary infiltrates concerning for inflammatory process. -Pulmonology following, recommending monitoring overnight with repeat chest x- ray tomorrow morning. Elevated d-dimer -Patient on Eliquis twice daily -CT PE negative for pulmonary emboli revealing bullous pulmonary emphysema with bilateral upper lobe pulmonary infiltrates concerning for inflammatory process Dsx-Tqojlko-[id number] diabetes mellitus -Hold oral hypoglycemic medication, the patient on glycemic protocol with NovoLog sliding scale. 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 Patient presented to the emergency department with a chief complaint of urinary retention and dysuria. Patient reports he has been undergoing difficulties with urination for approximately 5-6 months and undergoing her of urologist outpatient with plans for surgical intervention in October. Patient reports he last underwent a prostate examination by urologist one week ago and shortly after began experiencing fever, chills, suprapubic pain and dysuria. Patient reports he was started on antibiotic ciprofloxacin by his urologist and received no improvement. Patient reports he called his urologist and was instructed to come to the emergency department due to concerns of prostatitis. In the emergency department patient underwent full evaluation. CBC was unremarkable with the exception of thrombocytopenia with platelet count of 149. BMP unremarkable. Urinalysis negative for blood, protein, or infection. D-dimer elevated at 1.25. Patient underwent evaluation chest x-ray revealing patchy perihilar and basilar infiltrates noted. CT abdomen and pelvis with IV contrast revealing basilar infiltrates noted correlating with pneumonia and a small sliding-type hernia abdominal and pelvic CT negative for acute process revealing small hypotension awaiting recommendations within the left hepatic lobe. CT PE negative for pulmonary emboli revealing bullous pulmonary emphysema with bilateral upper lobe pulmonary infiltrates concerning for inflammatory process.. EKG showing sinus tachycardia at 101 bpm with no noted T-wave or ST abnormalities. Covid PCR ne gative, influenza a and B PCR negative, and RSV negative. Liver ultrasound revealing echogenic lesions within the liver measuring 2.7 cm slightly enlarged from previous examination in 2017 suspect enlarging hemangioma, likely benign. Patient has been seen and evaluated by urology recommending discharge home on 14 day course of Levaquin and to follow up in their office in 2 weeks. Pulmonology also in agreement with a total of 14 day course of Levaquin for treatment of pneumonia. Repeat chest x-ray revealing persistent basilar airspace opacities superimposed on bullous emphysema. Patient's condition is stable for discharge at this time. Patient being discharged home on remaining 14 days of antibiotic therapy with Levaquin. Patient to follow-up with PCP in the next 2-3 days, pulmonology in two weeks and with urology in 2 weeks. Physical exam: Vital signs reviewed and stable. General: Nontoxic, no distress and appears stated age. Derm: Skin warm and dry, normal coloration for ethnicity. Head: Atraumatic, normocephalic and symmetric. Eyes: EOMs intact, no lid lag, and anicteric sclera Mouth: no lip lesions, mucus membranes moist Cardiovascular: regular rate and rhythm with normal S1S2, no murmur, positive posterior tibial pulses bilaterally, and cap refill < 2 seconds. Lungs: Respirations even, regular, and unlabored on room air. Lungs with diffuse expiratory wheezes and no rhonchi, rales, or crackles. Abdominal: soft, nontender to palpation, no guarding, no appreciable organomegaly Ext: ROM intact. No gross muscle atrophy, no edema, no contractures Neuro: Speech clear, face symmetrical and CN II-XII grossly intact with no noted focal neuro deficits Psych: Alert and oriented to person, place, time, and situation. Appropriate and pleasant affect. A total of 45 minutes of time were spent preparing this complex discharge summary. Patient Condition at Discharge: Stable Plan - Discharge Summary Discharge Rx Participant: No New Discharge Prescriptions: New Levofloxacin [Levaquin] 750 mg PO DAILY 13 Days #13 tab Nystatin [Nystatin Oral Susp] 6 ml PO QID 10 Days #240 ml Continue Gabapentin [Neurontin] 600 mg PO DAILY Finasteride [Proscar] 5 mg PO HS traZODone HCL 150 mg PO HS Gabapentin 1,200 mg PO HS Omeprazole Magnesium [PriLOSEC OTC] 20 mg PO HS Tamsulosin HCl [Flomax] 0.4 mg PO BID Apixaban [Eliquis] 5 mg PO BID #60 tab Clopidogrel [Plavix] 75 mg PO DAILY #30 tab Butalbital/Acetaminophen [Butalbital/Acetaminophen 50-300 Tab] 1 tab PO Q4H PRN PRN Reason: Headache ALPRAZolam [Xanax] 1 mg PO HS PRN PRN Reason: Anxiety Fluticasone/Umeclidin/Vilanter [Trelegy Ellipta 100-62.5-25] 1 puff INHALATION RT-DAILY HYDROcodone/APAP 7.5-325MG [Drift 7.5-325] 1 tab PO Q4H PRN PRN Reason: Pain Albuterol Sulfate [Ventolin HFA] 2 puff INHALATION RT-HS Hydrocortisone 20 mg PO DAILY Atorvastatin [Lipitor] 40 mg PO HS Lansoprazole [Prevacid] 30 mg PO DAILY Discontinued Ciprofloxacin HCl [Cipro] 250 mg PO BID Amoxicillin 500 mg PO Q8H Discharge Medication List Finasteride [Proscar] 5 mg PO HS 10/21/14 [History] Gabapentin [Neurontin] 600 mg PO DAILY 10/21/14 [History] Gabapentin 1,200 mg PO HS 04/09/16 [History] traZODone HCL 150 mg PO HS 04/09/16 [History] Omeprazole Magnesium [PriLOSEC OTC] 20 mg PO HS 12/29/19 [History] Tamsulosin HCl [Flomax] 0.4 mg PO BID 01/12/20 [History] Apixaban [Eliquis] 5 mg PO BID #60 tab 01/14/20 [Rx] Clopidogrel [Plavix] 75 mg PO DAILY #30 tab 01/14/20 [Rx] Butalbital/Acetaminophen [Butalbital/Acetaminophen 50-300 Tab] 1 tab PO Q4H PRN 03/24/20 [History] ALPRAZolam [Xanax] 1 mg PO HS PRN 03/25/20 [History] Albuterol Sulfate [Ventolin HFA] 2 puff INHALATION RT-HS 10/25/21 [History] Atorvastatin [Lipitor] 40 mg PO HS 10/25/21 [History] Fluticasone/Umeclidin/Vilanter [Trelegy Ellipta 100-62.5-25] 1 puff INHALATION RT-DAILY 10/25/21 [History] HYDROcodone/APAP 7.5-325MG [Drift 7.5-325] 1 tab PO Q4H PRN 10/25/21 [History] Hydrocortisone 20 mg PO DAILY 10/25/21 [History] Lansoprazole [Prevacid] 30 mg PO DAILY 10/25/21 [History] Levofloxacin [Levaquin] 750 mg PO DAILY 13 Days #13 tab 10/27/21 [Rx] Nystatin [Nystatin Oral Susp] 6 ml PO QID 10 Days #240 ml 10/28/21 [Rx] Follow up Appointment(s)/Referral(s): Dyana Giordano MD [Primary Care Provider] - 1-2 days (office closed at time of discharge. Please call to schedule appointment) Chris Osuna MD [STAFF PHYSICIAN] - 2 Weeks (office closed at time of discharge. Please call to schedule appointment ) Whitney Velarde MD [STAFF PHYSICIAN] - 1 Week (office closed at time of discharge. Please call to schedule appointment) Maximo Rascon MD [STAFF PHYSICIAN] - 1 Week (office closed at time of discharge Please call to schedule appointment ) Activity/Diet/Wound Care/Special Instructions: Activity: As tolerated. Take breaks as needed. Diet: Heart healthy and carb consistent diet. Avoid salts, or foods with hidden salts such as canned or boxed foods and frozen dinners. Extra salt makes your heart work harder and traps the fluid in your body for longer. Special Instructions: Take all of your medications as directed and remember to keep all of your doctor's appointments and follow-up as needed. As we discussed a liver ultrasound revealed what is believed to be an enlarging benign hemangioma, slightly enlarged from previous exam you had completed in 2017. It is recommended that you continue to follow up with repeat ultrasound in 6 months, this can be done through your primary care provider, Dr. Grace or with GI specialist, Dr. Velarde. Wishing you a truly blessed, happy, and healthy New Year!!! Thank you for allowing us to participate in your care, it was truly a pleasure having you for our patient!!! Discharge Disposition: HOME SELF-CARE <Narayan,Albina - Last Filed: 10/28/21 13:41> Providers Date of admission: 10/25/21 15:50 Attending physician: Kenny Rashid MD Consults: 10/25/21 15:49 Consult Physician Routine Consulting Provider: Clark Gastelum Consult Reason/Comments: hypoxic respiratory failure Do you want consulting provider notified?: Yes 10/26/21 02:14 Consult Physician Routine Consulting Provider: Chris Osuna Consult Reason/Comments: BPH, urinary changes Do you want consulting provider notified?: Yes, Notify in am Primary care physician: Dyana Giordano Hospital Course: Patient was also seen by Sterling Valentin NP and case was discussed. I am in agreement with discharge diagnosis, hospital course, as written above and amended below.
[2021-10-28 10:56] VITALS: BP 131/76; PULSE 67; TEMP 97.8
--- NOTE | 2021-10-28 12:30 | P.PN ---
Subjective Progress Note Date: 10/28/21 71-year-old male patient is very well-known to me. The patient COPD, bullous emphysema with a previous bullectomy that was performed at [facility] due to recurrent pneumothoraces. The patient is also known to have previous history of CVA/TIA, CAD with insertion of coronary stent, diabetes mellitus, impaired hearing, hyperlipidemia, previous history of pulmonary embolism and BPH. He came into the hospital for questionable prostatitis. He had fever and he was having difficulties with urination. He was complaining of hesitancy and dysuria. He does have history of UTIs in the past and prostatitis in the past. He was started on ciprofloxacin at home. His symptoms did not improve. He had a UA on presentation that was not consistent with infection. He had a fever of 100.6 and he was also tachycardic. CAT scan of the abdomen and pelvis showed no acute abnormalities. Chest x-ray showed patchy bilateral pulmonary infiltrates and the patient was started on Levaquin. Based on that, I was suspicious for underlying pneumonia and I proceeded with a CAT scan of the chest which confi rmed presence of bilateral consolidation consistent with pneumonia. Note that his COVID 19 testing was negative and the patient was vaccinated for COVID 19 3. He is not producing much sputum at this point in time. On his blood work, has a white cell count of 8.7 with a hemoglobin of 13.3, his d-dimer is at 1.25, his influenza A and B screen was negative and RSV was also negative. UA is negative for infection and blood cultures of been sent and the results of the pending for now. Lactic acid level is at 0.9. The patient is in room air oxygen. He has a congested cough. Unable to bring up much of sputum. On today's evaluation of 10/27/2021, seeing the patient for follow-up. He belen nues to have some cough and congestion and the CAT scan of the chest was completed yesterday and showed evidence of bilateral consolidation consistent with pneumonia and the patient is currently on Levaquin. No new labs available from today. The patient's COVID 19 testing is negative. Influenza A and B and RSV were all negative. His pro-calcitonin level was at 4.1 consistent with bacterial pneumonia. Note that his urine cultures were negative and the patient was cleared from the prostatitis and UTI standpoint. He is able to urinate. Blood cultures been negative. 10/28/2021, the patient is doing well. No specific complaints. Patient remains on Levaquin. There is minimal cough sputum production and there is no significant rest of the cyst at this point in time.. In fact his symptoms improved significantly. Noted the patient was given Levaquin. He is focused on level was at 4.1. He was also offered bronchodilators. He was offered steroids. His blood sugar today is up 124. Zonegran oxygen. No evidence of any underlying UTI. Objective - Vital Signs Vital signs: Vital Signs Temp 97.8 F 10/28/21 10:55 Pulse 67 10/28/21 10:55 Resp 15 10/28/21 10:55 BP 131/76 10/28/21 10:55 Pulse Ox 91 L 10/28/21 10:55 Intake & Output 10/27/21 10/28/21 10/28/21 18:59 06:59 18:59 Intake Total 400 500 Balance 400 500 Intake: Oral 400 500 Other: Voiding Method Toilet Toilet Toilet # Voids 2 2 # Bowel Movements 0 - Exam General Appearance: Alert, cooperative, no distress, appears stated age. The breathing is nonlabored and the patient is currently on room in oxygen Neck HEENT: Supple, no lymphadenopathy, no thyroid enlargement, no carotid bruits. Lungs: Decreased breath sound bilaterally with worsening of the right side left side with fine rhonchi positive mild expiratory wheezes with slight decrease air exchange. Chest Wall: Decrease expansion with deep inspiration positive tenderness and no deformity was found on exam, no costochondral pain or discomfort. Heart: Irregular rate and rhythm, S1, S2 positive is 3 positive JVD. Back: Symmetric, no curvature, ROM normal, no CVA tenderness. Abdomen: Soft, non-tender, bowel sounds active all four quadrants, no masses, no organomegaly. Extremities: Extremities normal, atraumatic, no cyanosis or edema. Pulses: 2+ and symmetric. Skin: Skin color, texture, tugor normal, no rashes or lesions. Neurologic: Alert oriented x3 cranial nerves II through XII intact, no motor deficit, no abnormal balance or gait. - Labs CBC & Chem 7: 10/25/21 14:31 10/25/21 12:42 Labs: Abnormal Lab Results - Last 24 Hours (Table) 12/31/21 12/31/21 01/01/22 Range/Units 16:59 20:45 07:15 POC Glucose (mg/dL) 159 H 133 H 124 H (75-99) mg/dL Microbiology - Last 24 Hours (Table) 10/25/21 12:45 Blood Culture - Preliminary Blood No Growth after 48 hours 10/25/21 12:30 Blood Culture - Preliminary Blood No Growth after 48 hours Assessment and Plan Plan: 1 bilateral pneumonia, likely bacterial rods and bilateral. The patient has some patchy consolidation bilaterally in the perihilar area more consistent with bacterial pneumonia. Currently on Levaquin. Note that the COVID 19 testing was negative and the patient has been vaccinated for COVID 19 3 including a booster shot. For now, the patient is a bacterial pneumonia. Pro-calcitonin level is elevated. The patient is doing well. The patient on room air oxygen. 2 COPD exacerbation secondary to above currently on bronchodilators. The patient limited on Trelegy Ellipta an outpatient basis in addition to albuterol nebulized treatments when necessary. 3 history of recurrent point is pneumothoraces and the patient undergone previous bullectomy 4 history of bullous emphysema 5 diabetes mellitus type 2 6 BPH 7 chronic diabetic neuropathy 8 hypertension 9 previous history of pulmonary embolism 10 coronary artery disease with previous non-STEMI and the patient has a coronary stent in place Plan Repeat chest x-ray shows stable or improved pulmonary filtrates Discharge the patient home on a course of Levaquin for the next 10 days Outpatient follow-up in 2 weeks time for repeat chest x-ray Continue Trelegy Ellipta an outpatient basis regarding his COPD Prednisone about treatments as needed on outpatient basis Therefore the chest from a pulmonary standpoint
[2021-10-28 13:33] LABS: HCT 44.3 % (39.6-50.0); HGB 13.9 g/dL (13.0-17.0); MCH 28.6 pg (27.0-32.0); MCHC 31.4 g/dL (32.0-37.0); MCV 91.2 fL (80.0-97.0); Mean Platelet Volume 9.1 fL (9.5-12.2); Platelet Count 212 X 10*3/uL (140-440); RBC 4.86 X 10*6/uL (4.40-5.60); RDW 14.5 % (11.5-14.5)
[2021-10-28 14:19] LABS: African American GFR (CKD) 86.2 (60.0-200.0); Albumin 3.1 g/dL (3.8-4.9); Albumin/Globulin Ratio 1.48 (1.60-3.17); Anion Gap 13.3 mmol/L (10.00-18.00); BUN/Creat Ratio 15.2 Ratio (12.00-20.00); Blood Urea Nitrogen 15.2 mg/dL (9.0-27.0); Calcium 8.6 mg/dL (8.7-10.3); Carbon Dioxide 21.7 mmol/L (20.0-27.5); Globulin 2.1 g/dL (1.6-3.3); Non-African American GFR(CKD) 74.3 (60.0-200.0); Potassium 3.6 mmol/L (3.5-5.5); Total Bilirubin 0.4 mg/dL (0.30-1.20); Total Protein 5.2 g/dL (6.2-8.2)
[2021-10-28] MEDS ORDERED: LEVOFLOXACIN 750 MG TAB PO SCH (15:00)
--- NOTE | 2021-11-01 12:14 | CDI ---
Documentation Clarification Form Date: 11/01/2021 11:59:00 AM From: Yadira Ybarra Admit Date: 10/25/2021 03:50:00 PM Patient Name: Deandre Duong Visit Number: [id number] Discharge Date: 10/28/2021 11:36:00 AM ATTENTION: The Clinical Documentation Specialists (CDI) and [facility] Coding Staff appreciate your assistance in clarifying documentation. Please respond to the clarification below the line at the bottom and electronically sign. The CDI & [facility] Coding staff will review the response and follow-up if needed. Please note: Queries are made part of the Legal Health Record. If you have any questions, please contact the author of this message via ITS. Dr. Lebron Rodriguez Per H and P assessment "Sepsis with possible underlying prostatitis." Documentation of sepsis not carried through chart. Per surgical consult patient was febrile and tachycardic on presentation. Please clarify if patient had sepsis or was it ruled out. History/Risk Factors: Prostatitis, pneumonia, emphysema, Acute hypoxic respiratory failure Clinical Indicators: WBC: 11.1 Vitals signs: 97.6 F, 103 bpm, 120/84, 99 RA down to 81% on RA Treatment: Levaquin Antibiotics: Levaquin with improvement of symtoms In your professional opinion, please clarify if these findings signify one of the following conditions: [ ] Sepsis POA [ ] Sepsis, Not POA [ ] Sepsis ruled out [ ] Other, please specify [ ] Unable to determine SIRS Criteria: 2 or more of the following may indicate SIRS -Temperature < 96.8F (36C) or > 101.0F (38.3C) -Heart Rate > 90 bpm -Respiratory Rate > 20 breaths/min or PaCO2 < 32 mmHg -White Blood Cell Count > 12,000 or < 4,000 cells/mm3 or > 10% bands unable to determine this question will be better answered by the provider who carried on the care until discharge Sterling GUNN
--- NOTE | 2021-11-07 11:29 | CDI ---
Documentation Clarification Form Date: 11/07/2021 11:16:00 AM From: Yadira Mcleod Admit Date: 10/25/2021 03:50:00 PM Patient Name: Deandre Duong Visit Number: [id number] Discharge Date: 10/28/2021 11:36:00 AM ATTENTION: The Clinical Documentation Specialists (CDI) and [facility] Coding Staff appreciate your assistance in clarifying documentation. Please respond to the clarification below the line at the bottom and electronically sign. The CDI & [facility] Coding staff will review the response and follow-up if needed. Please note: Queries are made part of the Legal Health Record. If you have any questions, please contact the author of this message via ITS. Dr. Albian Narayan Per H and P assessment "Sepsis with possible underlying prostatitis." Documentation of sepsis not carried through chart. Per surgical consult patient was febrile and tachycardic on presentation. Please clarify if patient had sepsis or was it ruled out. History/Risk Factors: Prostatitis, pneumonia, emphysema, Acute hypoxic respiratory failure Clinical Indicators: WBC: 11.1 Vitals signs: 97.6 F, 103 bpm, 120/84, 99 RA down to 81% on RA Treatment: Levaquin Antibiotics: Levaquin with improvement of symtoms In your professional opinion, please clarify if these findings signify one of the following conditions: [ ] Sepsis POA [ ] Sepsis, Not POA [ ] Sepsis ruled out [X ] Other, please specify __Did not meet sepsis criteria [ ] Unable to determine SIRS Criteria: 2 or more of the following may indicate SIRS -Temperature < 96.8F (36C) or > 101.0F (38.3C) -Heart Rate > 90 bpm -Respiratory Rate > 20 breaths/min or PaCO2 < 32 mmHg -White Blood Cell Count > 12,000 or < 4,000 cells/mm3 or > 10% bands MTDD
== END 2021-10-28 11:36 | disposition home or self-care (01) | DRG 727 ==
LOC: EC 11:28 → 4SSUR 15:50
PROVIDERS: ADMIT Internal Medicine; ATTEND Internal Medicine
DX: N41.9 Inflammatory disease of prostate, unspecified (principal); J15.9 Unspecified bacterial pneumonia; J96.21 Acute and chronic respiratory failure with hypoxia; D69.6 Thrombocytopenia, unspecified; E11.9 Type 2 diabetes mellitus without complications; E78.5 Hyperlipidemia, unspecified; F43.10 Post-traumatic stress disorder, unspecified; G25.81 Restless legs syndrome; H91.93 Unspecified hearing loss, bilateral; I25.10 Atherosclerotic heart disease of native coronary artery without angina pectoris; R79.1 Abnormal coagulation profile; I25.2 Old myocardial infarction; J43.9 Emphysema, unspecified; Z87.09 Personal history of other diseases of the respiratory system; N40.1 Benign prostatic hyperplasia with lower urinary tract symptoms; M54.31 Sciatica, right side; R33.8 Other retention of urine; R39.11 Hesitancy of micturition; G43.909 Migraine, unspecified, not intractable, without status migrainosus; Z99.81 Dependence on supplemental oxygen; M54.32 Sciatica, left side; Z20.822 Contact with and (suspected) exposure to COVID-19; Z79.01 Long term (current) use of anticoagulants; Z79.02 Long term (current) use of antithrombotics/antiplatelets; Z79.51 Long term (current) use of inhaled steroids; Z79.84 Long term (current) use of oral hypoglycemic drugs; Z79.899 Other long term (current) drug therapy; Z86.711 Personal history of pulmonary embolism; Z86.718 Personal history of other venous thrombosis and embolism; Z86.73 Personal history of transient ischemic attack (TIA), and cerebral infarction without residual deficits; Z87.440 Personal history of urinary (tract) infections; Z87.891 Personal history of nicotine dependence; Z95.5 Presence of coronary angioplasty implant and graft; Z97.4 Presence of external hearing-aid; Z98.890 Other specified postprocedural states; Z90.89 Acquired absence of other organs
CPT/HCPCS: 36415; 51798; 71045; 71260; 74018; 74177; 76705; 80048; 80053; 81001; 83605; 84145; 85025; 85027; 85379; 87040; 87502; 87634; 87635; 93005; 94640; 96361; 96365; 96366; 96375; 99285

== ENCOUNTER → 2021-12-26 | Outpatient (CLI) | payer MEDICARE ==
--- NOTE | 2021-12-27 07:50 | XR ---
EXAMINATION TYPE: XR chest 2V DATE OF EXAM: 12/26/2021 COMPARISON: 11/03/2021 HISTORY: Shortness of breath TECHNIQUE: Frontal and lateral views of the chest are obtained. FINDINGS: Scattered senescent parenchymal changes noted. Hyperinflation compatible with COPD. No evidence for infiltrate. No evidence for atelectasis. Heart size is stable. Mediastinal structures are stable and grossly unremarkable. No evidence for hilar prominence. Degenerative changes dorsal spine. IMPRESSION: 1. No evidence for acute pulmonary disease.
== END | disposition home or self-care (01) ==
LOC: RADXRMAIN 16:16
PROVIDERS: ATTEND Family Medicine
DX: J18.9 Pneumonia, unspecified organism (principal)
CPT/HCPCS: 71046

== ENCOUNTER 2022-02-23 09:52 | Day surgery (SDC) | payer MEDICARE ==
[2022-02-22 11:47] VITALS: BMI 27.9
[~2022-02-23 09:52] MED LIST changes: -COSYNTROPIN 0.25 MG VIAL IVP NR; +LACTATED RINGERS 1,000 ML IV SCH; -SODIUM CHLORIDE 0.9% 500 ML 500 ML in EMPTY BAG 1 BAG IV PRN
[2022-02-23 10:41] VITALS: TEMP 97.8
[2022-02-23 10:44] LABS: Glucose,Whole Blood 110 mg/dL (75-99)
[2022-02-23] MEDS ORDERED: LACTATED RINGERS 1,000 ML IV ONE (10:44)
[2022-02-23] MEDS ORDERED: HYDROCORTISONE SUCCINATE 100 MG/2 ML VIAL IVP ONE (10:46)
[2022-02-23] MEDS ORDERED: PROPOFOL 10 MG/ML 20 ML VIAL IV ONE (11:11)
--- NOTE | 2022-02-23 11:37 | P.PCN ---
Date of Procedure: 02/23/22 Procedure(s) Performed: BRIEF HISTORY: Patient is a 71-year-old pleasant male scheduled for an elective colonoscopy as a part of evaluation of prior history of colon polyps. Last colonoscopy was 5 years ago. PROCEDURE PERFORMED: Colonoscopy with biopsy and snare polypectomy. PREOPERATIVE DIAGNOSIS: history of colon polyps. IV sedation per Anesthesia. PROCEDURE: After informed consent was obtained, the patient, was brought into the endoscopy unit. IV sedation was administered by Anesthesia under continuous monitoring. Digital rectal examination was normal. Initially the Olympus CF-160 flexible video colonoscope was then inserted in the rectum, gradually advanced into the cecum without any difficulty. Careful examination was performed as the scope was gradually being withdrawn. Ileocecal valve and the appendiceal orifice were visualized and appeared normal. Prep was excellent. Mucosa of the cecum,3 mm polyp that was removed by cold biopsy. In the transverse colon there was a 5 mm and 7 mm 2 polyps removed by snare polypectomy. Rest of the ascending colon, transverse colon, descending colon, sigmoid colon, and rectum appeared normal.scattered sigmoid diverticulosis. Retroflexion was performed in the rectum and small internal hemorrhoids were seen. The patient tolerated the proc edure well. IMPRESSION: 3 mm cecal polyp status post cold biopsy 5 mm 2 and 7 mm transverse colon polyp status post polypectomy Scattered sigmoid diverticulosis Small internal hemorrhoids RECOMMENDATIONS: Findings of this examination were discussed with the patient as well as his family. He was advised to follow with the biopsy results if the biopsy reveals adenoma, he can have a repeat colonoscopy in 3 years..
[2022-02-23 11:43] VITALS: RESP 16
[2022-02-23 11:58] VITALS: BP 133/77; PULSE 61
== END 2022-02-23 12:40 | disposition home or self-care (01) ==
LOC: ORWHC2ENDO 09:52
PROVIDERS: ATTEND Internal Medicine Gastroenterology
DX: Z12.11 Encounter for screening for malignant neoplasm of colon (principal); D12.3 Benign neoplasm of transverse colon; K63.5 Polyp of colon; Z86.010 Personal history of colon polyps; K57.30 Diverticulosis of large intestine without perforation or abscess without bleeding; K64.8 Other hemorrhoids; I25.10 Atherosclerotic heart disease of native coronary artery without angina pectoris; I25.2 Old myocardial infarction; Z95.5 Presence of coronary angioplasty implant and graft; J44.9 Chronic obstructive pulmonary disease, unspecified; Z86.711 Personal history of pulmonary embolism; N40.0 Benign prostatic hyperplasia without lower urinary tract symptoms; E27.40 Unspecified adrenocortical insufficiency; Z86.73 Personal history of transient ischemic attack (TIA), and cerebral infarction without residual deficits; K21.9 Gastro-esophageal reflux disease without esophagitis; Z79.899 Other long term (current) drug therapy; Z79.01 Long term (current) use of anticoagulants; Z79.02 Long term (current) use of antithrombotics/antiplatelets; Z79.891 Long term (current) use of opiate analgesic
CPT/HCPCS: 88305; 45380; 45385; J1720; J2704

== ENCOUNTER → 2022-03-28 | Outpatient (CLI) | payer MEDICARE ==
[2022-03-28 18:16] LABS: Basophils # (A) 0.05 X 10*3/uL (0.00-0.10); Basophils % (A) 0.4 %; Eosinophils # (A) 0.08 X 10*3/uL (0.04-0.35); Eosinophils % (A) 0.7 %; HGB 15.7 g/dL (13.0-17.0); Immature Grans, Automated 1.1 %; Lymphocytes # (A) 1.18 X 10*3/uL (0.90-5.00); Lymphocytes % (A) 10.1 %; MCV 90.4 fL (80.0-97.0); Mean Platelet Volume 8.9 fL (9.5-12.2); Monocytes # (A) 0.63 X 10*3/uL (0.20-1.00); Monocytes % (A) 5.4 %; NRBC Per 100 WBC 0 /100 WBCS (0.0-0.0); Neutrophils # (A) 9.58 X 10*3/uL (1.80-7.70); Neutrophils % (A) 82.3 %; Platelet Count 239 X 10*3/uL (140-440); RBC 5.42 X 10*6/uL (4.40-5.60); RDW 14.4 % (11.5-14.5); WBC 11.65 X 10*3/uL (4.50-10.00)
[2022-03-28 18:19] LABS: % Iron Saturation 29.88 (15.00-50.00); ALT 19 U/L (10-49); AST 14 U/L (14-35); African American GFR (CKD) 76.8 (60.0-200.0); Albumin 3.9 g/dL (3.8-4.9); Albumin/Globulin Ratio 1.44 (1.60-3.17); Alkaline Phosphatase 83 U/L (41-126); BUN/Creat Ratio 19.09 Ratio (12.00-20.00); Calcium 9.1 mg/dL (8.7-10.3); Carbon Dioxide 25.2 mmol/L (20.0-27.5); Chloride 104 mmol/L (96-109); Chol/HDL Ratio 6.16 Ratio; Creatine Kinase 78 U/L (35-257); Globulin 2.7 g/dL (1.6-3.3); Glucose 183 mg/dL (70-110); Iron 110 ug/dL (65-175); LDL Cholesterol,Calculated 145.8 mg/dL (0.0-131.0); Magnesium 2.2 mg/dL (1.5-2.4); Non-African American GFR(CKD) 66.2 (60.0-200.0); Potassium 3.9 mmol/L (3.5-5.5); Sodium 140 mmol/L (135-145); Total Iron Binding Capacity 368 ug/dL (228-460); Total Protein 6.6 g/dL (6.2-8.2)
[2022-03-28 18:28] LABS: Lipase 17 U/L (14-60)
== END | disposition home or self-care (01) ==
LOC: LABWHC1 10:44
PROVIDERS: ATTEND Family Medicine
DX: Z01.812 Encounter for preprocedural laboratory examination (principal); E11.65 Type 2 diabetes mellitus with hyperglycemia; E61.1 Iron deficiency; E27.40 Unspecified adrenocortical insufficiency; J44.9 Chronic obstructive pulmonary disease, unspecified; G25.81 Restless legs syndrome; E55.9 Vitamin D deficiency, unspecified; E53.9 Vitamin B deficiency, unspecified; N40.1 Benign prostatic hyperplasia with lower urinary tract symptoms
CPT/HCPCS: 36415; 80053; 80061; 82533; 82550; 82607; 83036; 83540; 83550; 83690; 83735; 84153; 85025

== ENCOUNTER 2022-04-19 13:35 | Inpatient (IN) | payer MEDICARE ==
--- NOTE | 2022-04-19 19:02 | ED ---
SOB HPI - General Chief Complaint: Shortness of Breath Stated Complaint: pneumonia Time Seen by Provider: 04/19/22 19:00 Source: patient, RN notes reviewed Mode of arrival: ambulatory Limitations: no limitations - History of Present Illness Initial Comments: This is a pleasant 71-year-old male with a history of COPD, emphysema, diabetes, pulmonary embolism, cardiovascular disease, recent prostate surgery current pneumonia. He presents to the emergency department today complaining of ongoing fatigue, cough, minimal hemoptysis, and some chills. No known fever. Patient went to 10 days of [facility] and then saw his filenet admin the day before yesterday and was started on Augmentin. He was instructed to go to the ER if his symptoms had not improved after 2 days of Augmentin. Patient does take anticoagulant medication for previous pulmonary embolism. Patient has had multiple pneumothoraces in the past. History of adrenal insufficiency. No headache, no changes in vision or hearing, no sore throat or difficulty with speech, no neck pain, no chest pain, no abdominal pain, no nausea or vomiting, no changes in urination or bowel movements, no numbness or tingling, no extremity pain, no skin rashes or lesions. Patient states the cough is productive. Note that the patient took her home COVID-19 test which was negative. Patient received his second booster about one month ago. - Related Data Home Medications Medication Instructions Recorded Confirmed Finasteride [Proscar] 5 mg PO HS 10/21/14 02/22/22 Gabapentin [Neurontin] 600 mg PO DAILY 10/21/14 02/22/22 Gabapentin 1,200 mg PO HS 04/09/16 02/22/22 traZODone HCL 150 mg PO HS 04/09/16 02/22/22 Omeprazole Magnesium [PriLOSEC OTC] 20 mg PO BID 12/29/19 02/22/22 Tamsulosin HCl [Flomax] 0.4 mg PO BID 01/12/20 02/22/22 Butalbital/Acetaminophen 1 tab PO Q4H PRN 03/24/20 02/22/22 [Butalbital/Acetaminophen 50-300 Tab] ALPRAZolam [Xanax] 1 mg PO HS PRN 03/25/20 02/22/22 Albuterol Sulfate [Ventolin HFA] 2 puff INHALATION DIRECTED PRN 10/25/21 02/22/22 Atorvastatin [Lipitor] 40 mg PO HS 10/25/21 02/22/22 Fluticasone/Umeclidin/Vilanter 1 puff INHALATION RT-DAILY 10/25/21 02/22/22 [Trelegy Ellipta 100-62.5-25] HYDROcodone/APAP 7.5-325MG [[place] 1 tab PO TID PRN 10/25/21 02/22/22 7.5-325] Hydrocortisone 30 mg PO DAILY 10/25/21 02/22/22 Lansoprazole [Prevacid] 30 mg PO DAILY 10/25/21 02/22/22 Previous Rx's Medication Instructions Recorded Apixaban [Eliquis] 5 mg PO BID #60 tab 01/14/20 Clopidogrel [Plavix] 75 mg PO DAILY #30 tab 01/14/20 Allergies Allergy/AdvReac Type Severity Reaction Status Date / Time No Known Allergies Allergy Verified 04/19/22 14:09 Review of Systems ROS Statement: Those systems with pertinent positive or pertinent negative responses have been documented in the HPI. ROS Other: All systems not noted in ROS Statement are negative. Past Medical History Past Medical History: COPD, CVA/TIA, Diabetes Mellitus, GERD/Reflux, Hearing Disorder / Deafness, Hyperlipidemia, Myocardial Infarction (SD), Musculoskeletal Disorder, Osteoarthritis (OA), Pneumonia, Prostate Disorder, Pulmonary Embolus (PE), Respiratory Disorder Additional Past Medical History / Comment(s): PE/RLL pneumonia/acute hypoxic failure. Portal bollous emphysema. low back pain, bilat sciatica; RLS; migraines, TIA , BPH, hearing aids, , diverticulosis. onset diabetes 08/11/19, multiple pneumothorax, O2 @2-4L [place] prn. Adrenal insufficiency Last Myocardial Infarction Date:: 12/30/2019 History of Any Multi-Drug Resistant Organisms: None Reported Past Surgical History: Heart Catheterization With Stent, Hernia Repair, Orthopedic Surgery, Prostate Surgery, Tonsillectomy Additional Past Surgical History / Comment(s): Septoplasty/ESSS, EGD, colonoscopy with benign polyp, R inguinal hernia, umbilical hernia, pain clinic procedures, atilio fundloplication. upper bilat lung lobes removed 05/2021. Past Anesthesia/Blood Transfusion Reactions: No Reported Reaction Additional Past Anesthesia/Blood Transfusion Reaction / Comment(s): no known family hx Date of Last Stent Placement:: Past Psychological History: PTSD Smoking Status: Former smoker Past Alcohol Use History: None Reported Past Drug Use History: None Reported - Past Family History Father History Unknown: Yes Family Medical History: No Reported History, Unable to Obtain Additional Family Medical History / Comment(s): Pt was adopted. Mother History Unknown: Yes Additional Family Medical History / Comment(s): Pt was adopted. Daughter(s) Additional Family Medical History / Comment(s): Children do not have any major medical problems. No history of blood clots. General Exam - General Exam Comments Initial Comments: Nontoxic appearing male in minimal distress. Vital signs reviewed. SpO2 is 93% on room air. No significant tachypnea. Adequate peripheral perfusion. Capillary refill less than 2 seconds Limitations: no limitations General appearance: alert, in no apparent distress, in distress (Mild) Head exam: Present: atraumatic, normocephalic, normal inspection Eye exam: Present: normal appearance, PERRL, EOMI. Absent: scleral icterus, co njunctival injection, periorbital swelling ENT exam: Present: normal exam, normal oropharynx, mucous membranes dry, mucous membranes moist, normal external ear exam Neck exam: Present: normal inspection, full ROM. Absent: tenderness, meningismus, lymphadenopathy Respiratory exam: Present: wheezes, rhonchi, prolonged expiratory. Absent: respiratory distress, rales, stridor, chest wall tenderness, accessory muscle use, decreased breath sounds Cardiovascular Exam: Present: regular rate, normal rhythm, normal heart sounds. Absent: systolic murmur, diastolic murmur, rubs, gallop, clicks GI/Abdominal exam: Present: soft, normal bowel sounds. Absent: distended, tenderness, guarding, rebound, rigid Extremities exam: Present: normal inspection, full ROM, normal capillary refill. Absent: tenderness, pedal edema, joint swelling, calf tenderness Back exam: Present: normal inspection Neurological exam: Present: alert, oriented X3, CN II-XII intact Psychiatric exam: Present: normal affect, normal mood Skin exam: Present: warm, dry, intact, normal color. Absent: rash Course Vital Signs 04/19/22 04/19/22 04/19/22 14:03 20:05 20:15 Temperature 97.7 F Pulse Rate 84 65 67 Respiratory 18 Rate Blood Pressure 157/74 O2 Sat by Pulse 93 L Oximetry 04/19/22 21:04 Temperature Pulse Rate 75 Respiratory 18 Rate Blood Pressure 167/99 O2 Sat by Pulse 93 L Oximetry - Reevaluation(s) Reevaluation #1: 04/19/22 21:13 Medical record is reviewed Symptoms are improved here in the emergency department Patient is informed of results and questions answered Patient in no distress Medical Decision Making - Medical Decision Making Outpatient treatment failure on multiple antibiotics including 10 days of Levaquin and 2 days of Augmentin. Given the patient's history, likely will require admission. We'll add on COVID-19 testing and influenza testing. There is a possibility of atypical pneumonia or fungal pneumonia given the patient's history. Patient has had previous lung surgery from multiple bouts of pneumonia with emphysema. His unlikely to be cardiac in nature given the presentation. Patient's already anticoagulated, this unlikely to be vascular in origin. - Lab Data Result diagrams: 04/19/22 19:36 Lab Results 04/19/22 04/19/22 04/19/22 Range/Units 19:36 19:36 19:36 WBC 11.4 H (3.8-10.6) k/uL RBC 4.99 (4.30-5.90) m/uL Hgb 14.8 (13.0-17.5) gm/dL Hct 46.4 (39.0-53.0) % MCV 93.1 (80.0-100.0) fL MCH 29.6 (25.0-35.0) pg MCHC 31.8 (31.0-37.0) g/dL RDW 13.9 (11.5-15.5) % Plt Count 317 (150-450) k/uL MPV 6.6 Neutrophils % 91 % Lymphocytes % 5 % Monocytes % 4 % Eosinophils % 0 % Basophils % 0 % Neutrophils # 10.3 H (1.3-7.7) k/uL Lymphocytes # 0.6 L (1.0-4.8) k/uL Monocytes # 0.4 (0-1.0) k/uL Eosinophils # 0.0 (0-0.7) k/uL Basophils # 0.0 (0-0.2) k/uL Hypochromasia Slight PT 9.5 (9.0-12.0) sec INR 0.8 (<1.2) APTT 24.6 (22.0-30.0) sec Plasma Lactic Acid Leon 1.4 (0.7-2.0) mmol/L Troponin I (0.000-0.034) ng/mL NT-Pro-B Natriuret Pep pg/mL Coronavirus (PCR) (Not Detectd) Influenza Type A RNA (Not Detectd) Influenza Type B (PCR) (Not Detectd) 04/19/22 04/19/22 04/19/22 Range/Units 19:36 19:36 19:36 WBC (3.8-10.6) k/uL RBC (4.30-5.90) m/uL Hgb (13.0-17.5) gm/dL Hct (39.0-53.0) % MCV (80.0-100.0) fL MCH (25.0-35.0) pg MCHC (31.0-37.0) g/dL RDW (11.5-15.5) % Plt Count (150-450) k/uL MPV Neutrophils % % Lymphocytes % % Monocytes % % Eosinophils % % Basophils % % Neutrophils # (1.3-7.7) k/uL Lymphocytes # (1.0-4.8) k/uL Monocytes # (0-1.0) k/uL Eosinophils # (0-0.7) k/uL Basophils # (0-0.2) k/uL Hypochromasia PT (9.0-12.0) sec INR (<1.2) APTT (22.0-30.0) sec Plasma Lactic Acid Leon (0.7-2.0) mmol/L Troponin I <0.012 (0.000-0.034) ng/mL NT-Pro-B Natriuret Pep 100 pg/mL Coronavirus (PCR) (Not Detectd) Influenza Type A RNA Not Detected (Not Detectd) Influenza Type B (PCR) Not Detected (Not Detectd) 04/19/22 Range/Units 19:36 WBC (3.8-10.6) k/uL RBC (4.30-5.90) m/uL Hgb (13.0-17.5) gm/dL Hct (39.0-53.0) % MCV (80.0-100.0) fL MCH (25.0-35.0) pg MCHC (31.0-37.0) g/dL RDW (11.5-15.5) % Plt Count (150-450) k/uL MPV Neutrophils % % Lymphocytes % % Monocytes % % Eosinophils % % Basophils % % Neutrophils # (1.3-7.7) k/uL Lymphocytes # (1.0-4.8) k/uL Monocytes # (0-1.0) k/uL Eosinophils # (0-0.7) k/uL Basophils # (0-0.2) k/uL Hypochromasia PT (9.0-12.0) sec INR (<1.2) APTT (22.0-30.0) sec Plasma Lactic Acid Leon (0.7-2.0) mmol/L Troponin I (0.000-0.034) ng/mL NT-Pro-B Natriuret Pep pg/mL Coronavirus (PCR) Not Detected (Not Detectd) Influenza Type A RNA (Not Detectd) Influenza Type B (PCR) (Not Detectd) - Radiology Data Radiology results: report reviewed, image reviewed (Patient's chest x-ray shows evidence of worsening infiltrate or chronic changes in the bilateral lower lung astudillo. I did compare this to previous study from 11/14/2021. Changes also seen on lateral view. Consistent with bilateral lower lobe pneumonia) Disposition Clinical Impression: Pneumonia, Hypoxemia Disposition: ADMITTED IP TO THIS [facility] Condition: Fair Referrals: Maximo Rascon MD [Primary Care Provider] - 1-2 days Time of Disposition: 21:13 Decision to Admit Reason: Admit from EC Decision Time: 21:13
[2022-04-19] MEDS ORDERED: PNEUMONIA PROTOCOL UTILIZED 1 EACH MISC PO PRN (19:10)
[2022-04-19] MEDS ORDERED: IPRATROPIUM-ALBUTEROL 3 ML NEB INHALATION STA (19:11)
[2022-04-19 19:57] LABS: Basophils % (A) 0 %; Eosinophils % (A) 0 %; HCT 46.4 % (39.0-53.0); HGB 14.8 gm/dL (13.0-17.5); Hypochromasia Slight; Lymphocytes # (A) 0.6 k/uL (1.0-4.8); Lymphocytes % (A) 5 %; MCH 29.6 pg (25.0-35.0); MCHC 31.8 g/dL (31.0-37.0); MCV 93.1 fL (80.0-100.0); Mean Platelet Volume 6.6; Monocytes # (A) 0.4 k/uL (0-1.0); Monocytes % (A) 4 %; Neutrophils # (A) 10.3 k/uL (1.3-7.7); Neutrophils % (A) 91 %; Platelet Count 317 k/uL (150-450); RBC 4.99 m/uL (4.30-5.90); RDW 13.9 % (11.5-15.5); WBC 11.4 k/uL (3.8-10.6)
[2022-04-19 20:09] LABS: INR 0.8 (<1.2); Partial Thromboplastin Time 24.6 sec (22.0-30.0); Prothrombin Time 9.5 sec (9.0-12.0)
--- NOTE | 2022-04-19 20:59 | XR ---
EXAMINATION TYPE: XR chest 2V DATE OF EXAM: 04/19/2022 8:32 PM COMPARISON: Chest radiographs from 12/26/2021 TECHNIQUE: XR chest 2V Frontal and lateral views of the chest. CLINICAL INDICATION:Male, 71 years old with history of difficulty breathing; Right FINDINGS: Lungs/Pleura: Similar basilar streaky atelectasis/scarring changes. There is no evidence of pleural effusion, focal consolidation, or pneumothorax. Pulmonary vascularity: Unremarkable. Heart/mediastinum: Cardiomediastinal silhouette is unremarkable. Musculoskeletal: No acute osseous pathology. IMPRESSION: Chronic changes without acute pulmonary process. No significant change from prior.
[2022-04-19] MEDS ORDERED: ALBUTEROL NEBULIZED 2.5 MG/3 ML INHALATION PRN ×2 (21:43)
[2022-04-19] MEDS ORDERED: IPRATROPIUM-ALBUTEROL 3 ML NEB INHALATION PRN (21:43)
[2022-04-19 23:34] LABS: ALT 17 U/L (4-49); AST 17 U/L (17-59); African American GFR (CKD) >90 (>60 ml/min/1.73 sqM); Albumin 3.8 g/dL (3.5-5.0); Alkaline Phosphatase 86 U/L (38-126); Anion Gap 6 mmol/L; Blood Urea Nitrogen 15 mg/dL (9-20); Calcium 8.9 mg/dL (8.4-10.2); Carbon Dioxide 26 mmol/L (22-30); Chloride 104 mmol/L (98-107); Glucose 211 mg/dL (74-99); Magnesium 2.3 mg/dL (1.6-2.3); Non-African American GFR(CKD) >90 (>60 ml/min/1.73 sqM); Potassium 4.2 mmol/L (3.5-5.1); Sodium 136 mmol/L (137-145); Total Bilirubin 0.3 mg/dL (0.2-1.3); Total Protein 6.6 g/dL (6.3-8.2)
[2022-04-20] MEDS: SODIUM CHLORIDE 0.9% 1,000 ML IV SCH (00:44)
[2022-04-20] MEDS: HYDROcodone/APAP 7.5-325MG 1 EACH TAB PO PRN ×3 (00:46→20:43)
[2022-04-20] MEDS: ALPRAZolam 1 MG TAB PO PRN ×2 (00:46→20:43)
[2022-04-20 02:35] LABS: Glucose,Whole Blood 147 mg/dL (70-110)
[2022-04-20 07:14] LABS: Glucose,Whole Blood 128 mg/dL (70-110)
[2022-04-20] MEDS: INSULIN ASPART (NovoLOG) 100 UNIT/ML VIAL SQ SCH ×4 (07:17→20:43)
[2022-04-20] MEDS ORDERED: NON FORMULARY DRUG (Fluticasone/Umeclidin/Vilanter [Trelegy Ellipta 100-62.5-25] 1 EACH Ea INHALATION SCH (08:00)
[2022-04-20] MEDS ORDERED: AZITHROMYCIN 500 MG TAB PO SCH ×2 (09:00→21:00)
[2022-04-20] MEDS: methylPREDNISolone SOD SUCCI 125 MG/2 ML VIAL IV SCH ×2 (09:16→18:28)
[2022-04-20] MEDS: PIPERACILLIN-TAZOBACTAM 3.375 GM in SODIUM CHLORIDE 0.9% 100 ML IVPB SCH ×2 (09:17→15:54)
[2022-04-20] MEDS: GABAPENTIN 300 MG CAP PO SCH (09:20)
[2022-04-20] MEDS: APIXABAN 5 MG TAB PO SCH ×2 (09:20→20:43)
--- NOTE | 2022-04-20 11:37 | P.HPIM ---
History of Present Illness This is a pleasant 71 years old male with past medical history of COPD, CVA/TIA, Diabetes Mellitus, GERD/Reflux, Hearing Disorder / Deafness, Hyperlipidemia, Osteoarthritis (OA),Pulmonary Embolus,, Portal bollous emphysema. low back pain, bilat sciatica; RLS; migraines, TIA , BPH, diverticulosis. multiple pneumothorax, O2 @2-4L NC prn. Adrenal insufficiency Patient states that he start follow-up with Dr. Crowley in about 10 days ago when he had shortness of breath and coughing with little phlegm, he was diagnosed with right lower lobe pneumonia and was treated with Levaquin however after few days he was still complaining of from symptoms and when he went to see Dr. Andrew and again he start him on Augmentin with resection of this fails to come to emergency room He denies chest pain No diarrhea or vomiting. No urinary complaints. No headache or dizziness. He denies smoking, alcohol or illicit drugs On admission patient is afebrile. Rest of Vitas looks stable Patient is saturating 90% at room air at 96% on 2 L oxygen via nasal cannula. He has mild leukocytosis of 11.4, INR, BMP and liver enzymes were unremarkable. Troponin is negative. gordillo varus not detected Chest x-ray: At changes without acute process. In the emergency room patient was started on ceftriaxone and Zithromax Review of Systems Review of systems CONSTITUTIONAL: No fever, no malaise, no fatigue. HEENT: No recent visual problems or hearing problems. Denied any sore throat. CARDIOVASCULAR: No orthopnea, PND, no palpitations, no syncope. PULMONARY: No chest wall tenderness, no hemoptysis. GASTROINTESTINAL: No diarrhea, no nausea, no vomiting, no abdominal pain. Normoactive bowel sounds. NEUROLOGICAL: No headaches, no weakness, no numbness. HEMATOLOGICAL: Denies any bleeding or petechiae. GENITOURINARY: Denies any burning micturition, frequency, or urgency. MUSCULOSKELETAL/RHEUMATOLOGICAL: Denies any joint pain, swelling, or any muscle pain. ENDOCRINE: Denies any polyuria or polydipsia. Past Medical History Past Medical History: COPD, CVA/TIA, Diabetes Mellitus, GERD/Reflux, Hearing Disorder / Deafness, Hyperlipidemia, Myocardial Infarction (CO), Musculoskeletal Disorder, Osteoarthritis (OA), Pneumonia, Prostate Disorder, Pulmonary Embolus (PE), Respiratory Disorder Additional Past Medical History / Comment(s): PE/RLL pneumonia/acute hypoxic failure. Portal bollous emphysema. low back pain, bilat sciatica; RLS; migraines, TIA , BPH, hearing aids, , diverticulosis. onset diabetes 08/11/19, multiple pneumothorax, O2 @2-4L [place] prn. Adrenal insufficiency Last Myocardial Infarction Date:: 12/30/2019 History of Any Multi-Drug Resistant Organisms: None Reported Past Surgical History: Heart Catheterization With Stent, Hernia Repair, O rthopedic Surgery, Prostate Surgery, Tonsillectomy Additional Past Surgical History / Comment(s): Septoplasty/ESSS, EGD, colonoscopy with benign polyp, R inguinal hernia, umbilical hernia, pain clinic procedures, atilio fundloplication. upper bilat lung lobes removed 05/2021, prostate surgery 3 weeks ago. Past Anesthesia/Blood Transfusion Reactions: No Reported Reaction Additional Past Anesthesia/Blood Transfusion Reaction / Comment(s): no known family hx Date of Last Stent Placement:: Past Psychological History: PTSD Additional Psychological History / Comment(s): Pt resides with his spouse. He uses no assistive device. He drives. He has a nebulizer and home oxygen as needed. Smoking Status: Former smoker Past Alcohol Use History: None Reported Additional Past Alcohol Use History / Comment(s): Pt started smoking in 1967, 1-1-1/2 packs per day, quit in 1999 Past Drug Use History: None Reported - Past Family History Father History Unknown: Yes Family Medical History: No Reported History, Unable to Obtain Additional Family Medical History / Comment(s): Pt was adopted. Mother History Unknown: Yes Additional Family Medical History / Comment(s): Pt was adopted. Daughter(s) Additional Family Medical History / Comment(s): Children do not have any major medical problems. No history of blood clots. Medications and Allergies Home Medications Medication Instructions Recorded Confirmed Type Gabapentin [Neurontin] 600 mg PO DAILY 10/21/14 04/19/22 History Gabapentin 1,200 mg PO HS 04/09/16 04/19/22 History traZODone HCL 150 mg PO HS 04/09/16 04/19/22 History Tamsulosin HCl [Flomax] 0.4 mg PO BID 01/12/20 04/19/22 History Apixaban [Eliquis] 5 mg PO BID #60 tab 01/14/20 04/19/22 Rx Butalbital/Acetaminophen 1 tab PO Q4H PRN 03/24/20 04/19/22 History [Butalbital/Acetaminophen 50-300 Tab] ALPRAZolam [Xanax] 1 mg PO HS PRN 03/25/20 04/19/22 History Albuterol Sulfate [Ventolin HFA] 2 puff INHALATION RT-Q6H PRN 10/25/21 04/19/22 History Atorvastatin [Lipitor] 40 mg PO HS 10/25/21 04/19/22 History Fluticasone/Umeclidin/Vilanter 1 puff INHALATION RT-DAILY 10/25/21 04/19/22 History [Trelegy Ellipta 100-62.5-25] HYDROcodone/APAP 7.5-325MG [[place] 1 tab PO TID PRN 10/25/21 04/19/22 History 7.5-325] Hydrocortisone 5 mg PO DAILY 10/25/21 04/19/22 History Amoxic-Pot Clav 875-125Mg 1 tab PO BID 04/19/22 04/19/22 History [Augmentin 875-125] Clopidogrel [Plavix] 75 mg PO HS 04/19/22 04/19/22 History Hydrocortisone [Cortef] 20 mg PO DAILY 04/19/22 04/19/22 History predniSONE See Taper PO DIRECTED 04/19/22 04/19/22 History methocarbamoL [Robaxin-750] 750 mg PO BID PRN 04/20/22 04/20/22 History Allergies Allergy/AdvReac Type Severity Reaction Status Date / Time No Known Allergies Allergy Verified 04/19/22 22:34 Physical Exam Vitals: Vital Signs Temp Pulse Pulse Resp BP BP Pulse Ox 04/20/22 04:55 97.8 F 58 L 18 126/92 94 L 04/20/22 00:29 18 96 04/19/22 23:30 97.7 F 80 18 163/93 90 L 04/19/22 21:04 75 18 167/99 93 L 04/19/22 20:15 67 04/19/22 20:05 65 04/19/22 14:03 97.7 F 84 18 157/74 93 L Intake and Output 06/04/20/22 04/20/22 22:59 06:59 14:59 Intake Total 240 Balance 240 Intake: Oral 240 Other: # Voids 2 Weight 88.451 kg GENERAL: The patient is alert and oriented x3, not in any acute distress. Well developed, well nourished. HEENT: Pupils are round and equally reacting to light. EOMI. No scleral icterus. No conjunctival pallor. Normocephalic, atraumatic. No pharyngeal erythema. No thyromegaly. CARDIOVASCULAR: S1 and S2 present. No murmurs, rubs, or gallops. PULMONARY: Chest is clear to auscultation, no wheezing or crackles. ABDOMEN: Soft, nontender, nondistended, normoactive bowel sounds. No palpable organomegaly. MUSCULOSKELETAL: No joint swelling or deformity. EXTREMITIES: No cyanosis, clubbing, or pedal edema. NEUROLOGICAL: Gross neurological examination did not reveal any focal deficits. SKIN: No rashes. no petechiae. Results CBC & Chem 7: 04/19/22 19:36 04/19/22 19:36 Labs: Abnormal Lab Results - Last 24 Hours (Table) 04/19/22 04/19/22 04/20/22 Range/Units 19:36 19:36 02:30 WBC 11.4 H (3.8-10.6) k/uL Neutrophils # 10.3 H (1.3-7.7) k/uL Lymphocytes # 0.6 L (1.0-4.8) k/uL Sodium 136 L (137-145) mmol/L Glucose 211 H (74-99) mg/dL POC Glucose (mg/dL) 147 H (70-110) mg/dL C-Reactive Protein 4.0 H (<1.0) mg/dL Thrombosis Risk Factor Assmnt - Choose All That Apply Any of the Below Risk Factors Present?: Yes Each Factor Represents 1 point: Serious lung disease incl. pneumonia (< 1month) Each Risk Factor Represents 2 Points: Age 61-74 years Each Risk Factor Represents 3 Points: History of DVT/PE Thrombosis Risk Factor Assessment Total Risk Factor Score: 6 Thrombosis Risk Factor Assessment Level: High Risk Assessment and Plan Assessment: Acute tracheobronchitis COPD with acute exacerbation Diabetes mellitus History of GERD Hearing difficulty Hyperlipidemia History of osteoarthritis History of pulmonary embolism, on Eliquis History of multiple pneumothorax and history of bullous emphysema Chronic low back pain History of BPH History of diverticulosis Plan: This is a pleasant 71 years old male who presents because of acute COPD exacerbation and respiratory infection Continue with Zithromax and ceftriaxone Continue with the bronchodilator Labs and medication were reviewed.. Continue same treatment. Continue with symptomatic treatment. Resume home medication. Monitor lytes and vitals. DVT and GI prophylaxis. Further recommendations as per clinical course of the patient DVT prophylaxis: Eliquis GI Prophylaxis: Pepcid PT/OT: Pending Prognosis is guarded
[2022-04-20] MEDS: IPRATROPIUM-ALBUTEROL 3 ML NEB INHALATION SCH ×4 (11:39→19:39)
[2022-04-20] MEDS: BUDESONIDE 1 MG/2 ML NEBU INHALATION SCH ×2 (11:39→19:39)
[2022-04-20] MEDS: FORMOTEROL FUMARATE 20 MCG/2 ML NEBU INHALATION SCH ×2 (11:39→19:39)
[2022-04-20 11:52] LABS: Glucose,Whole Blood 168 mg/dL (70-110)
--- NOTE | 2022-04-20 12:15 | P.CNPUL ---
History of Present Illness Consult date: 04/20/22 Requesting physician: Mak Ferrera Reason for consult: dyspnea, COPD Chief complaint: Shortness of breath, cough, congestion History of present illness: This is a 71-year-old male patient with a known history of chronic obstructive airway disease maintained on Trelegy and albuterol, chronic bullous emphysema, adrenal cortical hypofunction, previous left-sided pneumothorax, pulmonary embolism, myocardial infarction, gastric esophageal reflux disease, BPH. He appeared recently been having issues with increasing shortness of breath cough congestion phlegm production. He was initially treated with Levaquin over a week ago without much improvement. He was subsequently given Augmentin for some right lower lobe consolidation. He again had no significant improvement within 48 hours and was referred to the emergency room where he presented yesterday. He is seen today in consultation. He is awake and alert in no acute distress. Sitting up in a chair at the bedside. He has a congested cough. He has some weakness. Previous fever and chills. Currently he is afebrile. Maintaining O2 saturations in the 90s on room air. Hemodynamically stable. Chest x-ray revealed chronic changes but no acute pulmonary process. White count 11.4. Hemoglobin 14.8. Sodium 136. Potassium 4.2. BUN 15. Creatinine 0.77. Pro- calcitonin 0.02. He is continued on bronchodilators, IV Solu-Medrol, empiric antibiotics in the form of Zosyn. Anticoagulated with Eliquis. Review of Systems REVIEW OF SYSTEMS: CONSTITUTIONAL: Denies any recent significant weight loss or weight gain. EYES: Denies change in vision. EARS, NOSE, MOUTH, THROAT: Denies headaches, denies sore throat. CARDIOVASCULAR: Denies chest pain, palpitations or syncopal episodes. RESPIRATORY: Positive for shortness of breath, cough, congestion no hemoptysis. GASTROINTESTINAL: Denies change in appetite, denies abdominal pain GENITOURINARY: Denies hematuria, denies infections. MUSKULOSKELETAL: Denies pain, denies swelling. INTEGUMENTARY: Denies rash, denies eczema. NEUROLOGICAL: Denies recent memory loss, no recent seizure activity. PSYCHIATRIC: Denies anxiety, denies depression. HEMATOLOGIC/LYMPHATIC: Denies anemia, denies enlarged lymph nodes. Past Medical History Past Medical History: COPD, CVA/TIA, Diabetes Mellitus, GERD/Reflux, Hearing Disorder / Deafness, Hyperlipidemia, Myocardial Infarction ([place]), Musculoskeletal Disorder, Osteoarthritis (OA), Pneumonia, Prostate Disorder, Pulmonary Embolus (PE), Respiratory Disorder Additional Past Medical History / Comment(s): PE/RLL pneumonia/acute hypoxic failure. Portal bollous emphysema. low back pain, bilat sciatica; RLS; migraines, TIA , BPH, hearing aids, , diverticulosis. onset diabetes 08/11/19, multiple pneumothorax, O2 @2-4L [place] prn. Adrenal insufficiency Last Myocardial Infarction Date:: 12/30/2019 History of Any Multi-Drug Resistant Organisms: None Reported Past Surgical History: Heart Catheterization With Stent, Hernia Repair, Orthopedic Surgery, Prostate Surgery, Tonsillectomy Additional Past Surgical History / Comment(s): Septoplasty/ESSS, EGD, co lonoscopy with benign polyp, R inguinal hernia, umbilical hernia, pain clinic procedures, atilio fundloplication. upper bilat lung lobes removed 05/2021, prostate surgery 3 weeks ago. Past Anesthesia/Blood Transfusion Reactions: No Reported Reaction Additional Past Anesthesia/Blood Transfusion Reaction / Comment(s): no known family hx Date of Last Stent Placement:: Past Psychological History: PTSD Additional Psychological History / Comment(s): Pt resides with his spouse. He uses no assistive device. He drives. He has a nebulizer and home oxygen as needed. Smoking Status: Former smoker Past Alcohol Use History: None Reported Additional Past Alcohol Use History / Comment(s): Pt started smoking in 1967, 1-1-1/2 packs per day, quit in 1999 Past Drug Use History: None Reported - Past Family History Father History Unknown: Yes Family Medical History: No Reported History, Unable to Obtain Additional Family Medical History / Comment(s): Pt was adopted. Mother History Unknown: Yes Additional Family Medical History / Comment(s): Pt was adopted. Daughter(s) Additional Family Medical History / Comment(s): Children do not have any major medical problems. No history of blood clots. Medications and Allergies Home Medications Medication Instructions Recorded Confirmed Type Gabapentin [Neurontin] 600 mg PO DAILY 10/21/14 04/19/22 History Gabapentin 1,200 mg PO HS 04/09/16 04/19/22 History traZODone HCL 150 mg PO HS 04/09/16 04/19/22 History Tamsulosin HCl [Flomax] 0.4 mg PO BID 01/12/20 04/19/22 History Apixaban [Eliquis] 5 mg PO BID #60 tab 01/14/20 04/19/22 Rx Butalbital/Acetaminophen 1 tab PO Q4H PRN 03/24/20 04/19/22 History [Butalbital/Acetaminophen 50-300 Tab] ALPRAZolam [Xanax] 1 mg PO HS PRN 03/25/20 04/19/22 History Albuterol Sulfate [Ventolin HFA] 2 puff INHALATION RT-Q6H PRN 10/25/21 04/19/22 History Atorvastatin [Lipitor] 40 mg PO HS 10/25/21 04/19/22 History Fluticasone/Umeclidin/Vilanter 1 puff INHALATION RT-DAILY 10/25/21 04/19/22 History [Trelegy Ellipta 100-62.5-25] HYDROcodone/APAP 7.5-325MG [[place] 1 tab PO TID PRN 10/25/21 04/19/22 History 7.5-325] Hydrocortisone 5 mg PO DAILY 10/25/21 04/19/22 History Amoxic-Pot Clav 875-125Mg 1 tab PO BID 04/19/22 04/19/22 History [Augmentin 875-125] Clopidogrel [Plavix] 75 mg PO HS 04/19/22 04/19/22 History Hydrocortisone [Cortef] 20 mg PO DAILY 04/19/22 04/19/22 History predniSONE See Taper PO DIRECTED 04/19/22 04/19/22 History methocarbamoL [Robaxin-750] 750 mg PO BID PRN 04/20/22 04/20/22 History Allergies Allergy/AdvReac Type Severity Reaction Status Date / Time No Known Allergies Allergy Verified 04/19/22 22:34 Physical Exam Vitals: Vital Signs Temp Pulse Pulse Resp BP BP Pulse Ox 04/20/22 11:55 71 04/20/22 11:44 64 04/20/22 04:55 97.8 F 58 L 18 126/92 94 L 04/20/22 00:29 18 96 04/19/22 23:30 97.7 F 80 18 163/93 90 L 04/19/22 21:04 75 18 167/99 93 L 04/19/22 20:15 67 04/19/22 20:05 65 04/19/22 14:03 97.7 F 84 18 157/74 93 L Intake and Output 04/19/22 04/20/22 04/20/22 22:59 06:59 14:59 Intake Total 240 Balance 240 Intake: Oral 240 Other: # Voids 2 Weight 88.451 kg GENERAL EXAM: Alert, NAD 1-year-old male patient, on room air, comfortable in no apparent distress. HEAD: Normocephalic. EYES: Normal reaction of pupils, equal size. NOSE: Clear with pink turbinates. THROAT: No erythema or exudates. NECK: No masses, no JVD. CHEST: No chest wall deformity. LUNGS: Equal air entry with bilateral scattered rhonchi, diminished. CVS: S1 and S2 normal with no audible murmur, regular rhythm. ABDOMEN: No hepatosplenomegaly, normal bowel sounds, no guarding or rigidity. SPINE: No scoliosis or deformity SKIN: No rashes CENTRAL NERVOUS SYSTEM: No focal deficits, tone is normal in all 4 extremities. EXTREMITIES: There is no peripheral edema. No clubbing, no cyanosis. Peripheral pulses are intact. Results - Laboratory Findings CBC and BMP: 04/19/22 19:36 04/19/22 19:36 PT/INR, D-dimer PT 9.5 sec (9.0-12.0) 04/19/22 19:36 INR 0.8 (<1.2) 04/19/22 19:36 Abnormal lab findings: Abnormal Labs 04/19/22 04/19/22 04/20/22 19:36 19:36 02:30 WBC 11.4 H Neutrophils # 10.3 H Lymphocytes # 0.6 L Sodium 136 L Glucose 211 H POC Glucose (mg/dL) 147 H C-Reactive Protein 4.0 H 04/20/22 04/20/22 07:12 11:50 WBC Neutrophils # Lymphocytes # Sodium Glucose POC Glucose (mg/dL) 128 H 168 H C-Reactive Protein - Diagnostic Findings Chest x-ray: image reviewed Assessment and Plan Assessment: Acute exacerbation of chronic obstructive pulmonary disease, complicated by purulent tracheobronchitis. No clear evidence of pneumonia. Pro-calcitonin 0.02. Failed outpatient therapy. History of pulmonary embolism, anticoagulated with Eliquis Previous history of left-sided pneumothorax, Chronic bullous emphysema Coronary artery disease with previous myocardial infarction and stenting to the RCA Adrenal cortical hypofunction Benign prostatic hyperplasia Plan: The patient was seen and evaluated Chest x-ray, medications and labs reviewed Add Solu medrol 60 mg every 6 hours Add Pulmicort and Perforomist inhalations twice a day Continue DuoNeb inhalations Continue Zosyn We'll continue to follow and make further recommendations based on his clinical status I have personally seen and examined the patient, performed the documentation and the assessment and plan as written. Number of minutes spent on the visit: 20.
--- NOTE | 2022-04-20 12:21 | CDI ---
Documentation Clarification Form Date: 04/20/2022 12:02:42 PM From: Diane Tyler RN CCDS Admit Date: 04/19/2022 09:23:00 PM Patient Name: Deandre Duong Visit Number: [id number] Discharge Date: ATTENTION: The Clinical Documentation Specialists (CDI) and [facility] Staff appreciate your assistance in clarifying documentation. Please respond to the clarification below the line at the bottom and electronically sign. The CDI & [facility] staff will review the response and follow-up if needed. Please note: Queries are made part of the Legal Health Record. If you have any questions, please contact the author of this message via ITS. Dr. Mak Ferrera Pneumonia is documented ED note, 04/20, but is not noted in subsequent documentation. Clarification is requested. History/Risk Factors: 71-year-old male presents to the ED with ongoing fatigue, cough and hemoptysis. Recent diagnosis of right lower lobe pneumonia treated with Augmentin was told to come to ED if symptoms did not improve. Medical History: COPD and Portal bullous emphysema. 04/20, H&P. Clinical Indicators: VSS B/P 157/74; HR 84; Temperature 97.7 F Tympanic; RR 18; SpO2 93% room air CXR: 04/19 Similar basilar streaky atelectasis/scarring changes Treatment: 04/19 Ceftriaxone 2gm IVPB x 1; 04/19 Albuterol/ipratropium 0.5mg- 3mg/3ml Inhalation x 1; 04/20 current Zosyn 3.375mg IVPB Q8HR; 04/20 Solumedrol 60mg IV Q6HR; 04/20 current Perforomist 20mcg Inhalation BID; 04/20 - current Albuterol/Ipratropium 0.5mg-3mg/3ml Inhalation QID Please clarify if the [insert diagnosis] is: [ ] Pneumonia confirmed, remains under treatment [ ] Pneumonia confirmed, resolved [ ] Pneumonia ruled out [ ] Other condition, please specify [ ] Unable to determine (Template Last Revised: December 2020) unlikely pneumonia with negative chest xray MTDD
[2022-04-20 17:44] LABS: Glucose,Whole Blood 278 mg/dL (70-110)
[2022-04-20 20:34] LABS: Glucose,Whole Blood 245 mg/dL (70-110)
[2022-04-20] MEDS: GABAPENTIN 400 MG CAP PO SCH (20:43)
[2022-04-21] MEDS: SODIUM CHLORIDE 0.9% 1,000 ML IV SCH ×2 (00:38→23:39)
[2022-04-21] MEDS: PIPERACILLIN-TAZOBACTAM 3.375 GM in SODIUM CHLORIDE 0.9% 100 ML IVPB SCH ×3 (00:52→17:25)
[2022-04-21] MEDS: methylPREDNISolone SOD SUCCI 125 MG/2 ML VIAL IV SCH ×4 (00:52→18:20)
[2022-04-21 02:04] LABS: Glucose,Whole Blood 249 mg/dL (70-110)
[2022-04-21 07:23] LABS: Glucose,Whole Blood 223 mg/dL (70-110)
[2022-04-21] MEDS: APIXABAN 5 MG TAB PO SCH ×2 (07:33→20:48)
[2022-04-21] MEDS: GABAPENTIN 300 MG CAP PO SCH (07:33)
[2022-04-21] MEDS: INSULIN ASPART (NovoLOG) 100 UNIT/ML VIAL SQ SCH ×4 (07:34→20:48)
[2022-04-21] MEDS: HYDROcodone/APAP 7.5-325MG 1 EACH TAB PO PRN ×2 (07:39→20:49)
[2022-04-21] MEDS: FORMOTEROL FUMARATE 20 MCG/2 ML NEBU INHALATION SCH ×2 (07:43→19:37)
[2022-04-21] MEDS: BUDESONIDE 1 MG/2 ML NEBU INHALATION SCH ×2 (07:44→19:37)
[2022-04-21] MEDS: IPRATROPIUM-ALBUTEROL 3 ML NEB INHALATION SCH ×4 (07:44→19:37)
[2022-04-21 12:02] LABS: Glucose,Whole Blood 310 mg/dL (70-110)
--- NOTE | 2022-04-21 12:35 | P.PN ---
Subjective Progress Note Date: 04/21/22 This is a 71-year-old male patient with a known history of chronic obstructive airway disease maintained on Trelegy and albuterol, chronic bullous emphysema, adrenal cortical hypofunction, previous left-sided pneumothorax, pulmonary embolism, myocardial infarction, gastric esophageal reflux disease, BPH. He appeared recently been having issues with increasing shortness of breath cough congestion phlegm production. He was initially treated with Levaquin over a week ago without much improvement. He was subsequently given Augmentin for some right lower lobe consolidation. He again had no significant improvement within 48 hours and was referred to the emergency room where he presented yesterday. He is seen today in consultation. He is awake and alert in no acute distress. Sitting up in a chair at the bedside. He has a congested cough. He has some weakness. Previous fever and chills. Currently he is afebrile. Maintaining O2 saturations in the 90s on room air. Hemodynamically stable. Chest x-ray revealed chronic changes but no acute pulmonary process. White count 11.4. Hemoglobin 14.8. Sodium 136. Potassium 4.2. BUN 15. Creatinine 0.77. Pro- calcitonin 0.02. He is continued on bronchodilators, IV Solu-Medrol, empiric antibiotics in the form of Zosyn. Anticoagulated with Eliquis. The patient is seen today 04/21/2022 in follow-up on the regular medical floor. He is currently sitting in the bedside. Awake and alert in no acute distress. Breathing better easier today compared to yesterday. Not quite back to his baseline. He is maintaining good O2 saturations in the 90s on 2 L/m per nasal cannula. He's been afebrile. Hemodynamically stable. Blood cultures reveal no growth. Sputum culture pending. Blood sugar 310. He is continued on DuoNeb inhalations, Pulmicort and Perforomist inhalations, IV Solu-Medrol. Empiric antibiotics in the form of Zosyn. Anticoagulated with Eliquis. Objective - Vital Signs Vital signs: Vital Signs Temp 97.9 F 04/21/22 05:00 Pulse 86 04/21/22 11:21 Resp 16 04/21/22 05:00 BP 145/93 04/21/22 05:00 Pulse Ox 93 L 04/21/22 07:46 FiO2 Intake & Output 04/20/22 04/21/22 04/21/22 18:59 06:59 18:59 Intake Total 880 Balance 880 Intake: Oral 880 Other: Voiding Method Toilet # Voids 4 2 - Exam GENERAL EXAM: Alert, pleasant 71-year-old male patient, on 2 L nasal cannula, comfortable in no apparent distress. HEAD: Normocephalic. EYES: Normal reaction of pupils, equal size. NOSE: Clear with pink turbinates. THROAT: No erythema or exudates. NECK: No masses, no JVD. CHEST: No chest wall deformity. LUNGS: Equal air entry with bilateral scattered wheeze, diminished. CVS: S1 and S2 normal with no audible murmur, regular rhythm. ABDOMEN: No hepatosplenomegaly, normal bowel sounds, no guarding or rigidity. SPINE: No scoliosis or deformity SKIN: No rashes CENTRAL NERVOUS SYSTEM: No focal deficits, tone is normal in all 4 extremities. EXTREMITIES: There is no peripheral edema. No clubbing, no cyanosis. Peripheral pulses are intact. - Labs CBC & Chem 7: 04/19/22 19:36 04/19/22 19:36 Labs: Abnormal Lab Results - Last 24 Hours (Table) 04/20/22 04/20/22 04/21/22 Range/Units 17:42 20:32 02:01 POC Glucose (mg/dL) 278 H 245 H 249 H (70-110) mg/dL 04/21/22 04/21/22 Range/Units 07:21 11:59 POC Glucose (mg/dL) 223 H 310 H (70-110) mg/dL Microbiology - Last 24 Hours (Table) 04/19/22 15:35 Gram Stain - Preliminary Sputum Sputum Culture - Preliminary 04/19/22 19:36 Blood Culture - Preliminary Blood No Growth after 24 hours 04/19/22 19:36 Blood Culture - Preliminary Blood No Growth after 24 hours Assessment and Plan Assessment: Acute exacerbation of chronic obstructive pulmonary disease, complicated by purulent tracheobronchitis. No clear evidence of pneumonia. Pro-calcitonin 0.02. Failed outpatient therapy. History of pulmonary embolism, anticoagulated with Eliquis Previous history of left-sided pneumothorax, Chronic bullous emphysema Coronary artery disease with previous myocardial infarction and stenting to the RCA Adrenal cortical hypofunction Benign prostatic hyperplasia Plan: The patient was seen and evaluated Medications reviewed Continue the current treatment plan Probable discharge in a.m. We'll continue to follow I have personally seen and examined the patient, performed the documentation and the assessment and plan as written. Number of minutes spent on the visit: 10.
[2022-04-21] MEDS ORDERED: methocarbamoL 500 MG TAB PO PRN (12:38)
[2022-04-21] MEDS: metFORMIN 500 MG TAB PO SCH (12:45)
[2022-04-21] MEDS: PANTOPRAZOLE 40 MG TABLET PO SCH (17:26)
[2022-04-21 17:40] LABS: Glucose,Whole Blood 261 mg/dL (70-110)
[2022-04-21 20:37] LABS: Glucose,Whole Blood 273 mg/dL (70-110)
[2022-04-21] MEDS: traZODone HCL 50 MG TAB PO SCH (20:48)
[2022-04-21] MEDS: GABAPENTIN 400 MG CAP PO SCH (20:48)
[2022-04-21] MEDS: ALPRAZolam 1 MG TAB PO PRN (20:49)
--- NOTE | 2022-04-21 23:32 | P.PN ---
Subjective This is a pleasant 71 years old male with past medical history of COPD, CVA/TIA, Diabetes Mellitus, GERD/Reflux, Hearing Disorder / Deafness, Hyperlipidemia, Osteoarthritis (OA),Pulmonary Embolus,, Portal bollous emphysema. low back pain, bilat sciatica; RLS; migraines, TIA , BPH, diverticulosis. multiple pneumothorax, O2 @2-4L [place] prn. Adrenal insufficiency Patient states that he start follow-up with Dr. Crowley in about 10 days ago when he had shortness of breath and coughing with little phlegm, he was diagnosed with right lower lobe pneumonia and was treated with Levaquin however after few days he was still complaining of from symptoms and when he went to see Dr. Andrew and again he start him on Augmentin with resection of this fails to come to emergency room He denies chest pain No diarrhea or vomiting. No urinary complaints. No headache or dizziness. He denies smoking, alcohol or illicit drugs On admission patient is afebrile. Rest of Vitas looks stable Patient is saturating 90% at room air at 96% on 2 L oxygen via nasal cannula. He has mild leukocytosis of 11.4, INR, BMP and liver enzymes were unremarkable. Troponin is negative. gordillo varus not detected Chest x-ray: At changes without acute process. In the emergency room patient was started on ceftriaxone and Zithromax 04/21/2022 Patient today feels better, he was seen walking in the hallway and talking to staff and joking with them. No significant dyspnea at rest or exertion. No significant coughing or chest pain. We resumed his home medications. He remains on Zosyn and Solu-Medrol Possible discharge in 24-48 hours if he keeps improving Objective - Vital Signs Vital signs: Vital Signs Temp 98.5 F 04/21/22 12:35 Pulse 96 04/21/22 12:35 Resp 18 04/21/22 12:35 BP 150/81 04/21/22 12:35 Pulse Ox 92 L 04/21/22 12:35 FiO2 Intake & Output 04/20/22 04/21/22 04/21/22 18:59 06:59 18:59 Intake Total 880 Balance 880 Intake: Oral 880 Other: Voiding Method Toilet # Voids 4 2 - Labs CBC & Chem 7: 04/19/22 19:36 04/19/22 19:36 Labs: Abnormal Lab Results - Last 24 Hours (Table) 04/20/22 04/20/22 04/21/22 Range/Units 17:42 20:32 02:01 POC Glucose (mg/dL) 278 H 245 H 249 H (70-110) mg/dL 04/21/22 04/21/22 Range/Units 07:21 11:59 POC Glucose (mg/dL) 223 H 310 H (70-110) mg/dL Microbiology - Last 24 Hours (Table) 04/19/22 15:35 Gram Stain - Preliminary Sputum Sputum Culture - Preliminary 04/19/22 19:36 Blood Culture - Preliminary Blood No Growth after 24 hours 04/19/22 19:36 Blood Culture - Preliminary Blood No Growth after 24 hours Assessment and Plan Assessment: Acute tracheobronchitis COPD with acute exacerbation Diabetes mellitus History of GERD Hearing difficulty Hyperlipidemia History of osteoarthritis History of pulmonary embolism, on Eliquis History of multiple pneumothorax and history of bullous emphysema Chronic low back pain History of BPH History of diverticulosis Plan: This is a pleasant 71 years old male who presents because of acute COPD exacerbation and respiratory infection Continue with Zithromax and ceftriaxone Continue with the bronchodilator Labs and medication were reviewed.. Continue same treatment. Continue with symptomatic treatment. Resume home medication. Monitor lytes and vitals. DVT and GI prophylaxis. Further recommendations as per clinical course of the patient DVT prophylaxis: Eliquis GI Prophylaxis: Pepcid PT/OT: Pending Prognosis is guarded
[2022-04-22] MEDS: methylPREDNISolone SOD SUCCI 125 MG/2 ML VIAL IV SCH ×2 (00:04→05:23)
[2022-04-22] MEDS: PIPERACILLIN-TAZOBACTAM 3.375 GM in SODIUM CHLORIDE 0.9% 100 ML IVPB SCH ×2 (00:06→07:24)
[2022-04-22 02:03] LABS: Glucose,Whole Blood 273 mg/dL (70-110)
[2022-04-22 07:22] LABS: Glucose,Whole Blood 301 mg/dL (70-110)
[2022-04-22] MEDS: PANTOPRAZOLE 40 MG TABLET PO SCH ×2 (07:23→16:58)
[2022-04-22] MEDS: APIXABAN 5 MG TAB PO SCH ×2 (07:23→20:40)
[2022-04-22] MEDS: GABAPENTIN 300 MG CAP PO SCH (07:23)
[2022-04-22] MEDS: BUDESONIDE 1 MG/2 ML NEBU INHALATION SCH ×2 (07:24→19:34)
[2022-04-22] MEDS: FORMOTEROL FUMARATE 20 MCG/2 ML NEBU INHALATION SCH ×2 (07:24→19:34)
[2022-04-22] MEDS: IPRATROPIUM-ALBUTEROL 3 ML NEB INHALATION SCH ×4 (07:24→19:34)
[2022-04-22] MEDS: metFORMIN 500 MG TAB PO SCH (07:24)
[2022-04-22] MEDS: INSULIN ASPART (NovoLOG) 100 UNIT/ML VIAL SQ SCH ×4 (07:27→20:41)
[2022-04-22] MEDS: CEFDINIR 300 MG CAP PO SCH ×2 (10:49→20:41)
[2022-04-22] MEDS: predniSONE 20 MG TAB PO SCH (10:50)
--- NOTE | 2022-04-22 11:07 | P.PN ---
Subjective Progress Note Date: 04/22/22 This is a 71-year-old male patient with a known history of chronic obstructive airway disease maintained on Trelegy and albuterol, chronic bullous emphysema, adrenal cortical hypofunction, previous left-sided pneumothorax, pulmonary embolism, myocardial infarction, gastric esophageal reflux disease, BPH. He appeared recently been having issues with increasing shortness of breath cough congestion phlegm production. He was initially treated with Levaquin over a week ago without much improvement. He was subsequently given Augmentin for some right lower lobe consolidation. He again had no significant improvement within 48 hours and was referred to the emergency room where he presented yesterday. He is seen today in consultation. He is awake and alert in no acute distress. Sitting up in a chair at the bedside. He has a congested cough. He has some weakness. Previous fever and chills. Currently he is afebrile. Maintaining O2 saturations in the 90s on room air. Hemodynamically stable. Chest x-ray revealed chronic changes but no acute pulmonary process. White count 11.4. Hemoglobin 14.8. Sodium 136. Potassium 4.2. BUN 15. Creatinine 0.77. Pro- calcitonin 0.02. He is continued on bronchodilators, IV Solu-Medrol, empiric antibiotics in the form of Zosyn. Anticoagulated with Eliquis. The patient is seen today 04/21/2022 in follow-up on the regular medical floor. He is currently sitting in the bedside. Awake and alert in no acute distress. Breathing better easier today compared to yesterday. Not quite back to his baseline. He is maintaining good O2 saturations in the 90s on 2 L/m per nasal cannula. He's been afebrile. Hemodynamically stable. Blood cultures reveal no growth. Sputum culture pending. Blood sugar 310. He is continued on DuoNeb inhalations, Pulmicort and Perforomist inhalations, IV Solu-Medrol. Empiric antibiotics in the form of Zosyn. Anticoagulated with Eliquis. Patient is seen today 04/22/2022 in follow-up. He is currently resting comfortably in bed. No acute distress. Maintaining O2 saturations in the 90s on 2 L/m per nasal cannula. The cultures reveal no growth. Sputum culture revealed no growth. Calcitonin was 0.02. Blood glucose 301. He is continued on DuoNeb inhalations, Pulmicort and Perforomist inhalations, IV Solu-Medrol. Antibiotics in the form of Zosyn. Anticoagulated with Eliquis. Objective - Vital Signs Vital signs: Vital Signs Temp 97.1 F L 04/22/22 04:36 Pulse 92 04/22/22 07:46 Resp 16 04/22/22 04:36 BP 149/91 04/22/22 04:36 Pulse Ox 90 L 04/22/22 07:27 FiO2 Intake & Output 04/21/22 04/22/22 04/22/22 18:59 06:59 18:59 Intake Total 200 340 Balance 200 340 Intake: Intake, IV Titration 200 340 Amount Piperacillin-Tazobactam 3 200 100 .375 gm In Sodium Chloride 0.9% 100 ml @ 25 mls/hr IVPB Q8HR [facility] Rx# :[id number] Sodium Chloride 0.9% 1, 240 000 ml @ 20 mls/hr IV . Q24H [facility] Rx#:[id number] Other: Voiding Method Toilet - Exam GENERAL EXAM: 71-year-old male patient, sitting comfortably in bed, on 2 L nasal cannula, no apparent distress. HEAD: Normocephalic. EYES: Normal reaction of pupils, equal size. NOSE: Clear with pink turbinates. THROAT: No erythema or exudates. NECK: No masses, no JVD. CHEST: No chest wall deformity. LUNGS: Equal air entry with bilateral scattered wheeze, diminished. CVS: S1 and S2 normal with no audible murmur, regular rhythm. ABDOMEN: No hepatosplenomegaly, normal bowel sounds, no guarding or rigidity. SPINE: No scoliosis or deformity SKIN: No rashes CENTRAL NERVOUS SYSTEM: No focal deficits, tone is normal in all 4 extremities. EXTREMITIES: There is no peripheral edema. No clubbing, no cyanosis. Peripheral pulses are intact. - Labs CBC & Chem 7: 04/19/22 19:36 04/19/22 19:36 Labs: Abnormal Lab Results - Last 24 Hours (Table) 04/21/22 04/21/22 04/21/22 Range/Units 11:59 17:38 20:35 POC Glucose (mg/dL) 310 H 261 H 273 H (70-110) mg/dL 06/26/22 06/26/22 Range/Units 02:02 07:21 POC Glucose (mg/dL) 273 H 301 H (70-110) mg/dL Microbiology - Last 24 Hours (Table) 04/19/22 15:35 Gram Stain - Final Sputum Sputum Culture - Final 04/19/22 19:36 Blood Culture - Preliminary Blood No Growth after 48 hours 04/19/22 19:36 Blood Culture - Preliminary Blood No Growth after 48 hours Assessment and Plan Assessment: Acute exacerbation of chronic obstructive pulmonary disease, complicated by purulent tracheobronchitis. No clear evidence of pneumonia. Pro-calcitonin 0.02. Failed outpatient therapy. History of pulmonary embolism, anticoagulated with Eliquis Previous history of left-sided pneumothorax, Chronic bullous emphysema Coronary artery disease with previous myocardial infarction and stenting to the RCA Adrenal cortical hypofunction Benign prostatic hyperplasia Plan: The patient was seen and evaluated Medications reviewed Discontinue IV Solu-Medrol Initiate prednisone taper starting at 40 mg daily for 4 days Discontinue Zosyn Complete a course of antibiotics in the form of Omnicef Cleared for discharge from the pulmonary standpoint Follow up with Dr. Rascon in 1 week I have personally seen and examined the patient, performed the documentation and the assessment and plan as written. Number of minutes spent on the visit: 10.
[2022-04-22 11:29] LABS: Glucose,Whole Blood 302 mg/dL (70-110)
[2022-04-22 17:30] LABS: Glucose,Whole Blood 251 mg/dL (70-110)
[2022-04-22] MEDS: FLUCONAZOLE 100 MG TAB PO SCH (19:07)
[2022-04-22 20:30] LABS: Glucose,Whole Blood 281 mg/dL (70-110)
[2022-04-22] MEDS: HYDROcodone/APAP 7.5-325MG 1 EACH TAB PO PRN (20:41)
[2022-04-22] MEDS: GABAPENTIN 400 MG CAP PO SCH (20:41)
[2022-04-22] MEDS: traZODone HCL 50 MG TAB PO SCH (20:41)
[2022-04-22] MEDS: SODIUM CHLORIDE 0.9% 1,000 ML IV SCH (20:41)
[2022-04-22] MEDS: ALPRAZolam 1 MG TAB PO PRN (20:41)
--- NOTE | 2022-04-23 00:33 | P.PN ---
Subjective This is a pleasant 71 years old male with past medical history of COPD, CVA/TIA, Diabetes Mellitus, GERD/Reflux, Hearing Disorder / Deafness, Hyperlipidemia, Osteoarthritis (OA),Pulmonary Embolus,, Portal bollous emphysema. low back pain, bilat sciatica; RLS; migraines, TIA , BPH, diverticulosis. multiple pneumothorax, O2 @2-4L NC prn. Adrenal insufficiency Patient states that he start follow-up with Dr. Crowley in about 10 days ago when he had shortness of breath and coughing with little phlegm, he was diagnosed with right lower lobe pneumonia and was treated with Levaquin however after few days he was still complaining of from symptoms and when he went to see Dr. Andrew and again he start him on Augmentin with resection of this fails to come to emergency room He denies chest pain No diarrhea or vomiting. No urinary complaints. No headache or dizziness. He denies smoking, alcohol or illicit drugs On admission patient is afebrile. Rest of Vitas looks stable Patient is saturating 90% at room air at 96% on 2 L oxygen via nasal cannula. He has mild leukocytosis of 11.4, INR, BMP and liver enzymes were unremarkable. Troponin is negative. gordillo varus not detected Chest x-ray: At changes without acute process. In the emergency room patient was started on ceftriaxone and Zithromax 04/21/2022 Patient today feels better, he was seen walking in the hallway and talking to staff and joking with them. No significant dyspnea at rest or exertion. No significant coughing or chest pain. We resumed his home medications. He remains on Zosyn and Solu-Medrol Possible discharge in 24-48 hours if he keeps improving 04/22/2022 Patient still shortness of breath, and still has wheezing. His sugar is elevated that he was started on metformin he states that his PCP Dr. Giordano has stopped on metformin several months ago, however we started while he is on IV steroids. Patient continue with Eliquis, Plavix, steroids and antibiotic Objective - Vital Signs Vital signs: Vital Signs Temp 97.7 F 04/22/22 13:26 Pulse 93 04/22/22 15:48 Resp 16 04/22/22 15:48 BP 133/70 04/22/22 13:26 Pulse Ox 94 L 04/22/22 13:26 FiO2 Intake & Output 04/22/22 04/22/22 04/23/22 06:59 18:59 06:59 Intake Total 340 100 Balance 340 100 Intake: Intake, IV Titration 340 100 Amount Piperacillin-Tazobactam 3 100 100 .375 gm In Sodium Chloride 0.9% 100 ml @ 25 mls/hr IVPB Q8HR [facility] Rx# :[id number] Sodium Chloride 0.9% 1, 240 000 ml @ 20 mls/hr IV . Q24H [facility] Rx#:[id number] Other: Voiding Method Toilet - Exam GENERAL: The patient is alert and oriented x3, not in any acute distress. Well developed, well nourished. HEENT: Pupils are round and equally reacting to light. EOMI. No scleral icterus. No conjunctival pallor. Normocephalic, atraumatic. No pharyngeal erythema. No thyromegaly. CARDIOVASCULAR: S1 and S2 present. No murmurs, rubs, or gallops. -PULMONARY: Chest is clear to auscultation, still has wheezing ABDOMEN: Soft, nontender, nondistended, normoactive bowel sounds. No palpable organomegaly. MUSCULOSKELETAL: No joint swelling or deformity. EXTREMITIES: No cyanosis, clubbing, or pedal edema. NEUROLOGICAL: Gross neurological examination did not reveal any focal deficits. SKIN: No rashes. no petechiae. - Labs CBC & Chem 7: 04/19/22 19:36 04/19/22 19:36 Labs: Abnormal Lab Results - Last 24 Hours (Table) 04/21/22 04/22/22 04/22/22 Range/Units 20:35 02:02 07:21 POC Glucose (mg/dL) 273 H 273 H 301 H (70-110) mg/dL 04/22/22 04/22/22 Range/Units 11:28 17:24 POC Glucose (mg/dL) 302 H 251 H (70-110) mg/dL Microbiology - Last 24 Hours (Table) 04/19/22 15:35 Gram Stain - Final Sputum Sputum Culture - Final 04/19/22 19:36 Blood Culture - Preliminary Blood No Growth after 48 hours 04/19/22 19:36 Blood Culture - Preliminary Blood No Growth after 48 hours Assessment and Plan Assessment: Acute tracheobronchitis COPD with acute exacerbation Diabetes mellitus History of GERD Hearing difficulty Hyperlipidemia History of osteoarthritis History of pulmonary embolism, on Eliquis History of multiple pneumothorax and history of bullous emphysema Chronic low back pain History of BPH History of diverticulosis Plan: This is a pleasant 71 years old male who presents because of acute COPD exacerbation and respiratory infection Continue with Zithromax and ceftriaxone Continue with the bronchodilator Labs and medication were reviewed.. Continue same treatment. Continue with s ymptomatic treatment. Resume home medication. Monitor lytes and vitals. DVT and GI prophylaxis. Further recommendations as per clinical course of the patient DVT prophylaxis: Eliquis GI Prophylaxis: Pepcid PT/OT: Pending Prognosis is guarded
[2022-04-23 01:41] LABS: Glucose,Whole Blood 229 mg/dL (70-110)
[2022-04-23 07:10] LABS: Glucose,Whole Blood 167 mg/dL (70-110)
[2022-04-23] MEDS: BUDESONIDE 1 MG/2 ML NEBU INHALATION SCH ×2 (07:20→20:36)
[2022-04-23] MEDS: IPRATROPIUM-ALBUTEROL 3 ML NEB INHALATION SCH ×4 (07:20→20:36)
[2022-04-23] MEDS: FORMOTEROL FUMARATE 20 MCG/2 ML NEBU INHALATION SCH ×2 (07:20→20:36)
--- NOTE | 2022-04-23 07:57 | XR ---
EXAMINATION TYPE: XR chest 2V DATE OF EXAM: 04/23/2022 COMPARISON: 04/19/2022 INDICATION: Pneumonia TECHNIQUE: Frontal and lateral views of the chest are obtained. FINDINGS: The heart size is normal. The pulmonary vasculature is normal. There is an increase in infiltrate along the right base. Correlate for atelectasis and pneumonia. Fin dings have worsened over the interval.. IMPRESSION: 1. Worsening infiltrate along the right base. Correlate for atelectasis and pneumonia.
[2022-04-23] MEDS: PANTOPRAZOLE 40 MG TABLET PO SCH ×2 (08:52→17:36)
[2022-04-23] MEDS: INSULIN ASPART (NovoLOG) 100 UNIT/ML VIAL SQ SCH ×4 (08:52→21:21)
[2022-04-23] MEDS: GABAPENTIN 300 MG CAP PO SCH (08:52)
[2022-04-23] MEDS: APIXABAN 5 MG TAB PO SCH ×2 (08:52→21:21)
[2022-04-23] MEDS: FLUCONAZOLE 100 MG TAB PO SCH (08:52)
[2022-04-23] MEDS: CEFDINIR 300 MG CAP PO SCH ×2 (08:53→21:21)
[2022-04-23] MEDS: predniSONE 20 MG TAB PO SCH (08:53)
[2022-04-23] MEDS: metFORMIN 500 MG TAB PO SCH (08:53)
[2022-04-23 09:22] LABS: Basophils # (A) 0.03 X 10*3/uL (0.00-0.10); Basophils % (A) 0.2 %; Eosinophils # (A) 0 X 10*3/uL (0.04-0.35); Eosinophils % (A) 0 %; HCT 42.8 % (39.6-50.0); HGB 13.4 g/dL (13.0-17.0); Immature Grans, Automated 1.7 %; Lymphocytes # (A) 1.14 X 10*3/uL (0.90-5.00); Lymphocytes % (A) 6.9 %; MCH 28.3 pg (27.0-32.0); MCHC 31.3 g/dL (32.0-37.0); MCV 90.3 fL (80.0-97.0); Mean Platelet Volume 8.9 fL (9.5-12.2); Monocytes # (A) 1.07 X 10*3/uL (0.20-1.00); Monocytes % (A) 6.4 %; NRBC Per 100 WBC 0 /100 WBCS (0.0-0.0); Neutrophils # (A) 14.06 X 10*3/uL (1.80-7.70); Neutrophils % (A) 84.8 %; Platelet Count 255 X 10*3/uL (140-440); RBC 4.74 X 10*6/uL (4.40-5.60); RDW 14.4 % (11.5-14.5); WBC 16.59 X 10*3/uL (4.50-10.00)
[2022-04-23 09:29] LABS: African American GFR (CKD) 86.2 (60.0-200.0); Anion Gap 10.2 mmol/L (10.00-18.00); BUN/Creat Ratio 22.3 Ratio (12.00-20.00); Blood Urea Nitrogen 22.3 mg/dL (9.0-27.0); Calcium 9.2 mg/dL (8.7-10.3); Carbon Dioxide 24.8 mmol/L (20.0-27.5); Non-African American GFR(CKD) 74.3 (60.0-200.0); Potassium 3.9 mmol/L (3.5-5.5)
[2022-04-23 11:53] LABS: Glucose,Whole Blood 279 mg/dL (70-110)
[2022-04-23] MEDS ORDERED: RX INFO: IV CONTRAST WAS GIVEN 1 EACH MISC MISCELLANE PRN (12:49)
--- NOTE | 2022-04-23 16:02 | P.PN ---
Subjective Progress Note Date: 04/23/22 This is a 71-year-old male patient with a known history of chronic obstructive airway disease maintained on Trelegy and albuterol, chronic bullous emphysema, adrenal cortical hypofunction, previous left-sided pneumothorax, pulmonary embolism, myocardial infarction, gastric esophageal reflux disease, BPH. He appeared recently been having issues with increasing shortness of breath cough congestion phlegm production. He was initially treated with Levaquin over a week ago without much improvement. He was subsequently given Augmentin for some right lower lobe consolidation. He again had no significant improvement within 48 hours and was referred to the emergency room where he presented yesterday. He is seen today in consultation. He is awake and alert in no acute distress. Sitting up in a chair at the bedside. He has a congested cough. He has some weakness. Previous fever and chills. Currently he is afebrile. Maintaining O2 saturations in the 90s on room air. Hemodynamically stable. Chest x-ray revealed chronic changes but no acute pulmonary process. White count 11.4. Hemoglobin 14.8. Sodium 136. Potassium 4.2. BUN 15. Creatinine 0.77. Pro- calcitonin 0.02. He is continued on bronchodilators, IV Solu-Medrol, empiric antibiotics in the form of Zosyn. Anticoagulated with Eliquis. The patient is seen today 04/21/2022 in follow-up on the regular medical floor. He is currently sitting in the bedside. Awake and alert in no acute distress. Breathing better easier today compared to yesterday. Not quite back to his baseline. He is maintaining good O2 saturations in the 90s on 2 L/m per nasal cannula. He's been afebrile. Hemodynamically stable. Blood cultures reveal no growth. Sputum culture pending. Blood sugar 310. He is continued on DuoNeb inhalations, Pulmicort and Perforomist inhalations, IV Solu-Medrol. Empiric antibiotics in the form of Zosyn. Anticoagulated with Eliquis. Patient is seen today 04/22/2022 in follow-up. He is currently resting comfortably in bed. No acute distress. Maintaining O2 saturations in the 90s on 2 L/m per nasal cannula. The cultures reveal no growth. Sputum culture revealed no growth. Calcitonin was 0.02. Blood glucose 301. He is continued on DuoNeb inhalations, Pulmicort and Perforomist inhalations, IV Solu-Medrol. Antibiotics in the form of Zosyn. Anticoagulated with Eliquis. 04/23/2022, I'm seeing the patient for a follow-up. The patient was Hospital as because of ongoing respiratory distress and abnormal findings on lung bases bilaterally. During this current admission, the patient was started on IV Zosyn. The pro-calcitonin level came back low. Furthermore, I proceeded with a CAT scan of the chest this morning and the patient was found to have some atelectatic change the lung bases. No airspace disease. The patient has obvious hallucinations edema is noted on the CAT scan of the chest. The patient otherwise is doing well. No specific complaints. He is ambulating. He is on room air oxygen.the white cell count is at 16.5 with hemoglobin 13.4. Creatinine is at 1.0. Sodium is at 139. Objective - Vital Signs Vital signs: Vital Signs Temp 97.4 F L 04/23/22 11:17 Pulse 73 04/23/22 15:57 Resp 16 04/23/22 11:17 BP 145/87 04/23/22 11:17 Pulse Ox 93 L 04/23/22 11:17 FiO2 21 04/22/22 19:34 Intake & Output 04/22/22 04/23/22 04/23/22 18:59 06:59 18:59 Intake Total 100 Balance 100 Intake: Intake, IV Titration 100 Amount Piperacillin-Tazobactam 3 100 .375 gm In Sodium Chloride 0.9% 100 ml @ 25 mls/hr IVPB Q8HR [facility] Rx# :[id number] Other: Voiding Method Toilet Toilet # Voids 3 - Exam GENERAL EXAM: 71-year-old male patient, sitting comfortably in bed, on room air oxygen HEAD: Normocephalic. EYES: Normal reaction of pupils, equal size. NOSE: Clear with pink turbinates. THROAT: No erythema or exudates. NECK: No masses, no JVD. CHEST: No chest wall deformity. LUNGS: Equal air entry with bilateral scattered wheeze, diminished. CVS: S1 and S2 normal with no audible murmur, regular rhythm. ABDOMEN: No hepatosplenomegaly, normal bowel sounds, no guarding or rigidity. SPINE: No scoliosis or deformity SKIN: No rashes CENTRAL NERVOUS SYSTEM: No focal deficits, tone is normal in all 4 extremities. EXTREMITIES: There is no peripheral edema. No clubbing, no cyanosis. Peripheral pulses are intact. - Labs CBC & Chem 7: 04/23/22 05:50 04/23/22 05:50 Labs: Abnormal Lab Results - Last 24 Hours (Table) 04/22/22 04/22/22 04/23/22 Range/Units 17:24 20:28 01:39 WBC (4.50-10.00) X 10*3/uL MCHC (32.0-37.0) g/dL MPV (9.5-12.2) fL Immature Gran # (0.00-0.04) X 10*3/uL Neutrophils # (1.80-7.70) X 10*3/uL Monocytes # (0.20-1.00) X 10*3/uL Eosinophils # (0.04-0.35) X 10*3/uL BUN/Creatinine Ratio (12.00-20.00) Ratio Glucose (70-110) mg/dL POC Glucose (mg/dL) 251 H 281 H 229 H (70-110) mg/dL 04/23/22 04/23/22 04/23/22 Range/Units 05:50 05:50 07:00 WBC 16.59 H (4.50-10.00) X 10*3/uL MCHC 31.3 L (32.0-37.0) g/dL MPV 8.9 L (9.5-12.2) fL Immature Gran # 0.29 H (0.00-0.04) X 10*3/uL Neutrophils # 14.06 H (1.80-7.70) X 10*3/uL Monocytes # 1.07 H (0.20-1.00) X 10*3/uL Eosinophils # 0 L (0.04-0.35) X 10*3/uL BUN/Creatinine Ratio 22.30 H (12.00-20.00) Ratio Glucose 197 H (70-110) mg/dL POC Glucose (mg/dL) 167 H (70-110) mg/dL 04/23/22 Range/Units 11:52 WBC (4.50-10.00) X 10*3/uL MCHC (32.0-37.0) g/dL MPV (9.5-12.2) fL Immature Gran # (0.00-0.04) X 10*3/uL Neutrophils # (1.80-7.70) X 10*3/uL Monocytes # (0.20-1.00) X 10*3/uL Eosinophils # (0.04-0.35) X 10*3/uL BUN/Creatinine Ratio (12.00-20.00) Ratio Glucose (70-110) mg/dL POC Glucose (mg/dL) 279 H (70-110) mg/dL Microbiology - Last 24 Hours (Table) 04/19/22 19:36 Blood Culture - Preliminary Blood No Growth after 72 hours 04/19/22 19:36 Blood Culture - Preliminary Blood No Growth after 72 hours Assessment and Plan Plan: Acute exacerbation of chronic obstructive pulmonary disease, complicated by p urulent tracheobronchitis. No clear evidence of pneumonia. Pro-calcitonin 0.02. Failed outpatient therapy.the patient had a follow-up CAT scan of the chest today that showed some atelectatic changes in lung bases. No other acute abnormality is are seen. He has obvious emphysematous changes bilaterally with some bullous transformation. History of pulmonary embolism, anticoagulated with Eliquis Previous history of left-sided pneumothorax, Chronic bullous emphysema Coronary artery disease with previous myocardial infarction and stenting to the RCA Adrenal cortical hypofunction Benign prostatic hyperplasia Plan: the patient can be discharged home on prednisone taper starting at 40 mg daily for 4 days Complete a course of antibiotics in the form of Omnicef Cleared for discharge from the pulmonary standpoint continue Trelegy Ellipta at home regarding maintenance Follow up in the office. Reassured on the results of the CAT scan of the chest.
[2022-04-23 16:58] LABS: Glucose,Whole Blood 257 mg/dL (70-110)
--- NOTE | 2022-04-23 19:17 | CT ---
EXAMINATION TYPE: CT chest w con DATE OF EXAM: 04/23/2022 COMPARISON: 10/26/2021 HISTORY: persistant pneumonia CT DLP: 680 mGycm Automated exposure control for dose reduction was used. CONTRAST: Performed with IV Contrast, patient injected with 100 mL of Isovue 300. Images obtained from the thoracic inlet to the diaphragm with IV contrast. There is bullous pulmonary emphysema. Heart size is normal. No pericardial effusion. There is small h iatal hernia. No pleural effusion. There is some mild reticular interstitial density in the right mid dle lobe. There is no mediastinal adenopathy. There are no hilar masses. No pneumothorax. Thoracic aorta is intact. No aneurysm or dissection. The thoracic spine is intact. No compression fracture. Sternum is intact. No evidence of rib fracture . The upper abdominal soft tissues are intact. There is some cortical thinning lateral left kidney th at could be scarring and chronic pyelonephritis. IMPRESSION: Bullous pulmonary emphysema similar to old exam. Right middle lobe scarring and atelectasis slightly increased compared to old exam. There is significant clearing of the bilateral lower lobe pulmonary i nfiltrates and atelectasis compared to old exam. No suspicious pulmonary mass.
[2022-04-23 19:45] LABS: Glucose,Whole Blood 256 mg/dL (70-110)
[2022-04-23 20:36] VITALS: BP 143/77; PULSE 69; RESP 18; TEMP 97.8
[2022-04-23] MEDS: traZODone HCL 50 MG TAB PO SCH (21:21)
[2022-04-23] MEDS: GABAPENTIN 400 MG CAP PO SCH (21:22)
[2022-04-23] MEDS: SODIUM CHLORIDE 0.9% 1,000 ML IV SCH (23:14)
== END 2022-04-24 | disposition home or self-care (01) | DRG 191 ==
LOC: EC 13:35 → 5NMEDONC 21:23
PROVIDERS: ADMIT Internal Medicine; ATTEND Internal Medicine
DX: J43.9 Emphysema, unspecified (principal); E27.40 Unspecified adrenocortical insufficiency; J20.9 Acute bronchitis, unspecified; E11.9 Type 2 diabetes mellitus without complications; Z20.822 Contact with and (suspected) exposure to COVID-19; K21.9 Gastro-esophageal reflux disease without esophagitis; H91.90 Unspecified hearing loss, unspecified ear; E78.5 Hyperlipidemia, unspecified; G43.909 Migraine, unspecified, not intractable, without status migrainosus; G25.81 Restless legs syndrome; I25.10 Atherosclerotic heart disease of native coronary artery without angina pectoris; N40.0 Benign prostatic hyperplasia without lower urinary tract symptoms; K57.90 Diverticulosis of intestine, part unspecified, without perforation or abscess without bleeding; G89.29 Other chronic pain; M54.42 Lumbago with sciatica, left side; M54.41 Lumbago with sciatica, right side; I25.2 Old myocardial infarction; F43.10 Post-traumatic stress disorder, unspecified; M19.90 Unspecified osteoarthritis, unspecified site; Z79.01 Long term (current) use of anticoagulants; Z79.51 Long term (current) use of inhaled steroids; Z79.02 Long term (current) use of antithrombotics/antiplatelets; Z79.52 Long term (current) use of systemic steroids; Z79.899 Other long term (current) drug therapy; Z87.01 Personal history of pneumonia (recurrent); Z86.73 Personal history of transient ischemic attack (TIA), and cerebral infarction without residual deficits; Z86.711 Personal history of pulmonary embolism; Z95.5 Presence of coronary angioplasty implant and graft; Z87.19 Personal history of other diseases of the digestive system; Z86.010 Personal history of colon polyps; Z90.89 Acquired absence of other organs; Z87.891 Personal history of nicotine dependence; Z98.890 Other specified postprocedural states
CPT/HCPCS: 36415; 71046; 71260; 80048; 80053; 83605; 83735; 83880; 84145; 84484; 85025; 85610; 85730; 86140; 87040; 87070; 87205; 87502; 87635; 93005; 94640; 94760; 96365; 99285

== ENCOUNTER → 2022-05-01 | Outpatient (CLI) | payer MEDICARE ==
--- NOTE | 2022-05-01 19:05 | XR ---
EXAMINATION TYPE: XR chest 2V DATE OF EXAM: 05/01/2022 COMPARISON: Chest x-ray and CT chest April 23, 2022 HISTORY: History of recent pneumonia with cough and congestion. TECHNIQUE: Frontal and lateral views of the chest are obtained. FINDINGS: Background upper lungs chronic emphysematous change redemonstrated with persistent right b asilar opacity favoring scarring and/or atelectasis. Left lung remains clear. No pleural effusion or pneumothorax seen bilaterally. The cardiac silhouette size remains within normal limits. The osseo us structures are intact. IMPRESSION: Stable right basilar opacity favoring scarring and/or atelectasis. No new acute focal in filtrate seen.
== END | disposition home or self-care (01) ==
LOC: RADXRMAIN 16:06
PROVIDERS: ATTEND Nurse Practitioner Family
DX: R91.8 Other nonspecific abnormal finding of lung field (principal)
CPT/HCPCS: 71046

== ENCOUNTER → 2022-05-30 | Outpatient (CLI) | payer MEDICARE ==
--- NOTE | 2022-05-30 17:36 | NM ---
EXAMINATION TYPE: NM gastric emptying static DATE OF EXAM: 05/30/2022 COMPARISON: Correlation CT 04/23/2022 HISTORY: 71-year-old male J69.0, aspiration pneumonia Following administration of 2.1 mCi Tc 99m Sulfur Colloid with 4 ounces egg beaters, 2 pieces toast w /butter & jelly, 6 ounces water, projection images of the abdomen were obtained 10 minutes post inges tion. Patient Emptying Values 1 Hour 34 % (70-10%) 2 Hours 67 % (> 40%) 3 Hours 79 % (> 70%) 4 Hours 81 % (> 90%) Gastroesophagel reflux: There appears to be possible gastroesophageal reflux. T 1/2: 92 minutes (normal 60-105 minutes) IMPRESSION: 1. Normal gastric emptying up to 3 hours. However, at 4 hours, the percentage emptying slows down to 81% (normal> 90%). The T 1/2 value is normal and argues against gastroparesis. 2. There may be some faint gastroesophageal reflux. Correlate with patient's symptoms. We note possib le slipped Thomas fundoplication wrap on the patient's 04/23/2022 CT.
== END | disposition home or self-care (01) ==
LOC: RADNMMAIN 06:49
PROVIDERS: ATTEND Family Medicine
DX: J69.0 Pneumonitis due to inhalation of food and vomit (principal)
CPT/HCPCS: 78264; A9541

== ENCOUNTER 2022-06-01 06:58 | Day surgery (SDC) | payer MEDICARE ==
[2022-05-31 09:34] VITALS: BMI 26.5
[2022-06-01 07:47] VITALS: RESP 16; TEMP 98
[2022-06-01 07:51] LABS: Glucose,Whole Blood 156 mg/dL (70-110)
[2022-06-01] MEDS ORDERED: LIDOCAINE 2% INJ 20 MG/ML (2 ML VIAL) ONE (08:21)
[2022-06-01] MEDS ORDERED: PROPOFOL 10 MG/ML 20 ML VIAL IV ONE (08:21)
--- NOTE | 2022-06-01 08:35 | P.PCN ---
Date of Procedure: 06/01/22 Procedure(s) Performed: BRIEF HISTORY: Patient is a 68-year-old, pleasant, male scheduled for an upper endoscopy as a part of evaluation of GERD of several years duration. History of Thomas fundoplication more than 15 years ago. No help with [employer] As well as the past. Recently was started on Protonix 40 mg twice daily. Recently had a gastric empty scan that showed mild delay of gastric emptying at 4 hours. PROCEDURE PERFORMED: Esophagogastroduodenoscopy with biopsy. PREOPERATIVE DIAGNOSIS: Long-standing history of GERD. IV sedation per anesthesia. PROCEDURE: After informed consent was obtained, the patient was brought into the endoscopy unit. IV sedation was administered by Anesthesia under continuous monitoring. Initially the Olympus GIF-140 video endoscope was inserted into the mouth. Esophagus intubated without any difficulty. It was gradually advanced into the stomach and duodenum and carefully examined. The bulb and the second part of the duodenum appeared normal. The scope at this time was withdrawn to the stomach, adequately insufflated with air, and upon careful examination, mucosa of the antrum, had mild gastritis and biopsies were done from this area. The body, cardia and the fundus appeared normal. There was small amount of retained food noted in the stomach. The scope was then withdrawn into the esophagus. The GE junction was located at 36 cm from the incisors. There were 2 superficial erosions of the distal esophagus consistent with LA grade B reflux esophagitis. Rest of esophagus appeared normal and the patient tolerated the procedure well. IMPRESSION: 1. Small hiatal hernia. 2. LA grade B reflux esophagitis 3. Mild antral gastritis. 4. Small amount of retained food in the stomach RECOMMENDATIONS: The findings of this examination were discussed with the patient as well as his family. He was advised to continue with Protonix 40 mg twice daily and follow antireflux measures. Encourage small frequent meals. He will be seen in office in 3-4 weeks..
[2022-06-01 09:02] VITALS: BP 146/89; PULSE 66
== END 2022-06-01 09:27 | disposition home or self-care (01) ==
LOC: ORWHC2ENDO 06:58
PROVIDERS: ATTEND Internal Medicine Gastroenterology
DX: K21.00 Gastro-esophageal reflux disease with esophagitis, without bleeding (principal); K29.70 Gastritis, unspecified, without bleeding; K44.9 Diaphragmatic hernia without obstruction or gangrene; I25.10 Atherosclerotic heart disease of native coronary artery without angina pectoris; E11.69 Type 2 diabetes mellitus with other specified complication; E78.5 Hyperlipidemia, unspecified; I25.2 Old myocardial infarction; Z86.711 Personal history of pulmonary embolism; J43.9 Emphysema, unspecified; N40.0 Benign prostatic hyperplasia without lower urinary tract symptoms; Z86.73 Personal history of transient ischemic attack (TIA), and cerebral infarction without residual deficits; Z79.899 Other long term (current) drug therapy; Z79.01 Long term (current) use of anticoagulants; Z79.84 Long term (current) use of oral hypoglycemic drugs; Z79.51 Long term (current) use of inhaled steroids
CPT/HCPCS: 88305; 43239; J2704; J2001

== ENCOUNTER → 2022-07-20 | Outpatient (CLI) | payer MEDICARE ==
--- NOTE | 2022-07-20 13:09 | XR ---
EXAMINATION TYPE: XR chest 2V DATE OF EXAM: 07/20/2022 1:04 PM COMPARISON: Chest radiographs from 05/01/2022. TECHNIQUE: XR chest 2V Frontal and lateral views of the chest. CLINICAL INDICATION:Male, 72 years old with history of J18.9 pneumonia; FINDINGS: Lungs/Pleura: No pleural effusion or pneumothorax. Similar bibasilar airspace opacities. No new focal consolidation. Flattening of the hemidiaphragms with hyperaeration. Pulmonary vascularity: Unremarkable. Heart/mediastinum: Cardiomediastinal silhouette is unremarkable. Musculoskeletal: No acute osseous pathology. IMPRESSION: Stable bibasilar opacities favoring scarring and/or atelectasis. No new focal consolidation.
== END | disposition home or self-care (01) ==
LOC: RADXRMAIN 12:47
PROVIDERS: ATTEND Internal Medicine Geriatric Medicine
DX: R91.8 Other nonspecific abnormal finding of lung field (principal)
CPT/HCPCS: 71046

== ENCOUNTER → 2022-09-07 | Outpatient (CLI) | payer MEDICARE | END | disposition home or self-care (01) | LOC: LABWHC1 15:40 | PROVIDERS: ATTEND Internal Medicine Critical Care Medicine | DX: J44.1 Chronic obstructive pulmonary disease with (acute) exacerbation (principal) | CPT/HCPCS: 36415; 82787 ==

== ENCOUNTER 2022-09-16 23:40 | Observation (INO) | payer MEDICARE ==
[2022-09-17 00:12] LABS: Basophils # (A) 0.1 k/uL (0-0.2); Basophils % (A) 1 %; Eosinophils # (A) 0.2 k/uL (0-0.7); Eosinophils % (A) 1 %; HCT 40.9 % (39.0-53.0); HGB 13.2 gm/dL (13.0-17.5); Hypochromasia Slight; Lymphocytes % (A) 8 %; MCH 28.7 pg (25.0-35.0); MCHC 32.2 g/dL (31.0-37.0); Mean Platelet Volume 7.2; Monocytes # (A) 0.7 k/uL (0-1.0); Monocytes % (A) 6 %; Neutrophils # (A) 9.5 k/uL (1.3-7.7); Neutrophils % (A) 82 %; Platelet Count 263 k/uL (150-450); RDW 13.9 % (11.5-15.5); WBC 11.6 k/uL (3.8-10.6)
--- NOTE | 2022-09-17 00:21 | ED ---
General Adult HPI - General Stated complaint: chest pain Time Seen by Provider: 09/16/22 23:43 - History of Present Illness Initial comments: This is a 72-year-old male with a past medical history including diabetes, hypertension and previous coronary artery disease status post 2 stents presents emergency department for chest pain. The patient did state that he had chest pain that started around 2 PM this afternoon he did take 2 sublingual nitroglycerin tabs and his chest pain did improve. The patient did not come to the emergency department at this time. The patient did state that around 6 PM he had recurrence of the chest pain on the left side without radiation and took 2 more sublingual nitroglycerin tablets with relief of his chest pain. The patient did however state that a third episode of chest pain began this evening approximately 30 minutes prior to arrival and he did now [employer] [facility] for evaluation. The patient received 2 tablets of subungual nitroglycerin by EMS and stated the chest pain did improve. The patient did state that he has had burning in his chest for last 2 weeks but did not have any chest pain until today. The patient denied any nausea or vomiting as well as any diaphoresis with this chest pain. The patient however stated that he was concerned of the 3 episodes where he finally came to the emergency department. The patient was resting in bed comfortably without any further acute pain or distress. - Related Data Home Medications Medication Instructions Recorded Confirmed Gabapentin [Neurontin] 600 mg PO DAILY 10/21/14 05/31/22 Gabapentin 1,200 mg PO HS 04/09/16 05/31/22 traZODone HCL 150 mg PO HS 04/09/16 05/31/22 Butalbital/Acetaminophen 1 tab PO Q4H PRN 03/24/20 05/31/22 [Butalbital/Acetaminophen 50-300 Tab] ALPRAZolam [Xanax] 1 mg PO HS PRN 03/25/20 05/31/22 Albuterol Sulfate [Ventolin HFA] 2 puff INHALATION RT-Q6H PRN 10/25/21 06/01/22 Atorvastatin [Lipitor] 40 mg PO HS 10/25/21 05/31/22 Fluticasone/Umeclidin/Vilanter 1 puff INHALATION RT-DAILY 10/25/21 05/31/22 [Trelegy Ellipta 100-62.5-25] HYDROcodone/APAP 7.5-325MG [[place] 1 tab PO TID PRN 10/25/21 05/31/22 7.5-325] Clopidogrel [Plavix] 75 mg PO HS 04/19/22 05/31/22 Hydrocortisone [Cortef] 30 mg PO DAILY 04/19/22 05/31/22 methocarbamoL [Robaxin-750] 750 mg PO BID PRN 04/20/22 05/31/22 metFORMIN HCL [Glucophage] 500 mg PO QAM 05/31/22 05/31/22 Previous Rx's Medication Instructions Recorded Apixaban [Eliquis] 5 mg PO BID #60 tab 01/14/20 Allergies Allergy/AdvReac Type Severity Reaction Status Date / Time No Known Allergies Allergy Verified 09/17/22 00:14 Review of Systems ROS Statement: Those systems with pertinent positive or pertinent negative responses have been documented in the HPI. ROS Other: All systems not noted in ROS Statement are negative. Past Medical History Past Medical History: COPD, CVA/TIA, Diabetes Mellitus, GERD/Reflux, Hearing Disorder / Deafness, Hyperlipidemia, Myocardial Infarction ([place]), Musculoskeletal Disorder, Osteoarthritis (OA), Pneumonia, Prostate Disorder, Pulmonary Embolus ([place]), Respiratory Disorder Additional Past Medical History / Comment(s): PE/RLL pneumonia/acute hypoxic failure. Portal bollous emphysema. low back pain, bilat sciatica; RLS; migraines, TIA , BPH, hearing aids, , diverticulosis. onset diabetes 08/11/19, multiple pneumothorax, O2 @2-4L [place] prn. Adrenal insufficiency Last Myocardial Infarction Date:: 12/30/2019 History of Any Multi-Drug Resistant Organisms: None Reported Past Surgical History: Heart Catheterization With Stent, Hernia Repair, Orthopedic Surgery, Prostate Surgery, Tonsillectomy Additional Past Surgical History / Comment(s): Septoplasty/ESSS, EGD, colonoscop y with benign polyp, R inguinal hernia, umbilical hernia, pain clinic procedures, atilio fundloplication. upper bilat lung lobes removed 05/2021, prostate surgery 3 weeks ago. Past Anesthesia/Blood Transfusion Reactions: No Reported Reaction Additional Past Anesthesia/Blood Transfusion Reaction / Comment(s): no known family hx Date of Last Stent Placement:: Smoking Status: Former smoker - Past Family History Father History Unknown: Yes Family Medical History: No Reported History, Unable to Obtain Additional Family Medical History / Comment(s): Pt was adopted. Mother History Unknown: Yes Additional Family Medical History / Comment(s): Pt was adopted. Daughter(s) Additional Family Medical History / Comment(s): Children do not have any major medical problems. No history of blood clots. General Exam Limitations: no limitations General appearance: alert, in no apparent distress Head exam: Present: atraumatic, normocephalic Eye exam: Present: normal appearance, PERRL Pupils: Present: normal accommodation ENT exam: Present: normal exam, normal oropharynx, mucous membranes moist Neck exam: Present: normal inspection, full ROM Respiratory exam: Present: normal lung sounds bilaterally Cardiovascular Exam: Present: regular rate, normal rhythm, normal heart sounds GI/Abdominal exam: Present: soft, normal bowel sounds Extremities exam: Present: normal inspection, full ROM Back exam: Present: normal inspection, full ROM Neurological exam: Present: alert, oriented X3, CN II-XII intact Psychiatric exam: Present: normal affect, normal mood Skin exam: Present: warm, dry Course Vital Signs 09/17/22 00:14 Temperature 98.1 F Pulse Rate 68 Respiratory 15 Rate Blood Pressure 135/95 O2 Sat by Pulse 97 Oximetry EKG Findings - EKG Comments: EKG Findings:: An EKG was obtained and read by myself. EKG showed a rate of 69, OH interval of 182, QRS duration of 84 and QTC of 393. This EKG showed sinus bradycardia with no ST segment elevations or depressions noted. Medical Decision Making - Medical Decision Making The patient was seen and evaluated in the emergency department. Physical exam, the patient was resting in bed without any acute distress. Vital signs admission were stable and within normal limits. Due to the nature the patient's complaints, laboratory workup was obtained, chest x-ray was obtained as was an EKG. Left workup was largely within normal limits and chest x-ray was negative. The patient continued to remain stable however due to the patient's continued intermittent chest pain requiring multiple doses of nitroglycerin, in the setting of previous coronary artery disease with 2 stents, the patient did require observation to be seen and evaluated by cardiology in the morning. The patient was told of this plan and was agreeable. Cardiology will be placed on consult. His PCP, Dr. Giordano, was being covered by [facility] and [facility] was contacted and accepted the patient for observation. The patient will be placed in observation and will be followed up in the morning with cardiology for further workup and evaluation. The patient was agreeable to this and was placed observation in stable condition. - Lab Data Result diagrams: 09/16/22 23:49 09/16/22 23:49 Lab Results 09/16/22 09/16/22 09/16/22 Range/Units 23:49 23:49 23:49 WBC 11.6 H (3.8-10.6) k/uL RBC 4.60 (4.30-5.90) m/uL Hgb 13.2 (13.0-17.5) gm/dL Hct 40.9 (39.0-53.0) % MCV 89.0 (80.0-100.0) fL MCH 28.7 (25.0-35.0) pg MCHC 32.2 (31.0-37.0) g/dL RDW 13.9 (11.5-15.5) % Plt Count 263 (150-450) k/uL MPV 7.2 Neutrophils % 82 % Lymphocytes % 8 % Monocytes % 6 % Eosinophils % 1 % Basophils % 1 % Neutrophils # 9.5 H (1.3-7.7) k/uL Lymphocytes # 1.0 (1.0-4.8) k/uL Monocytes # 0.7 (0-1.0) k/uL Eosinophils # 0.2 (0-0.7) k/uL Basophils # 0.1 (0-0.2) k/uL Hypochromasia Slight Sodium 138 (137-145) mmol/L Potassium 4.0 (3.5-5.1) mmol/L Chloride 107 (98-107) mmol/L Carbon Dioxide 25 (22-30) mmol/L Anion Gap 6 mmol/L BUN 15 (9-20) mg/dL Creatinine 0.65 L (0.66-1.25) mg/dL Est GFR (CKD-EPI)AfAm >90 (>60 ml/min/1.73 sqM) Est GFR (CKD-EPI)NonAf >90 (>60 ml/min/1.73 sqM) Glucose 92 (74-99) mg/dL Calcium 8.3 L (8.4-10.2) mg/dL Magnesium 1.8 (1.6-2.3) mg/dL Total Bilirubin 0.1 L (0.2-1.3) mg/dL AST 13 L (17-59) U/L ALT 15 (4-49) U/L Alkaline Phosphatase 53 (38-126) U/L Troponin I 0.024 (0.000-0.034) ng/mL Total Protein 5.0 L (6.3-8.2) g/dL Albumin 2.9 L (3.5-5.0) g/dL Disposition Clinical Impression: Chest pain Disposition: ADMITTED IP TO THIS HOSP Condition: Stable Is patient prescribed a controlled substance at d/c from ED?: No Referrals: None,Stated [REFERRING] - 1-2 days Time of Disposition: 00:45 Decision Date: 09/17/22 Decision Time: 00:45
[2022-09-17 00:25] LABS: ALT 15 U/L (4-49); AST 13 U/L (17-59); African American GFR (CKD) >90 (>60 ml/min/1.73 sqM); Albumin 2.9 g/dL (3.5-5.0); Alkaline Phosphatase 53 U/L (38-126); Anion Gap 6 mmol/L; Blood Urea Nitrogen 15 mg/dL (9-20); Calcium 8.3 mg/dL (8.4-10.2); Carbon Dioxide 25 mmol/L (22-30); Chloride 107 mmol/L (98-107); Glucose 92 mg/dL (74-99); Magnesium 1.8 mg/dL (1.6-2.3); Non-African American GFR(CKD) >90 (>60 ml/min/1.73 sqM); Sodium 138 mmol/L (137-145); Total Bilirubin 0.1 mg/dL (0.2-1.3)
--- NOTE | 2022-09-17 00:32 | XR ---
EXAMINATION TYPE: XR chest 2V DATE OF EXAM: 09/17/2022 COMPARISON: 07/20/2022 HISTORY: Chest pain TECHNIQUE: 2 views FINDINGS: Heart is normal. There is some mild coarse density at the lung bases. There are no hilar ma sses. There are chest leads. Bony thorax is intact. IMPRESSION: There are some fibrotic changes and subsegmental atelectasis at the lung bases. No signif icant change compared to old exam. Normal heart.
[2022-09-17] MEDS ORDERED: NALOXONE 0.4 MG/ML 1 ML VIAL IV PRN (00:39)
[2022-09-17] MEDS ORDERED: ACETAMINOPHEN TAB 325 MG TAB PO STA (00:41)
[2022-09-17] MEDS ORDERED: IV FLUID CONTINUATION 950 ML IV ONE (07:39)
[2022-09-17] MEDS ORDERED: ATORVASTATIN 80 MG TAB PO STA (08:24)
[2022-09-17] MEDS ORDERED: ALPRAZolam 0.5 MG TAB PO PRN (08:24)
[2022-09-17] MEDS ORDERED: NITROGLYCERIN SL TABS 0.4 MG TAB SUBLINGUAL PRN (08:24)
[2022-09-17] MEDS ORDERED: ASPIRIN 325 MG TAB PO STA (08:24)
[2022-09-17] MEDS ORDERED: ALPRAZolam 0.25 MG TAB PO PRN (08:24)
[2022-09-17] MEDS ORDERED: HEPARIN SODIUM 1,000 UN/ML (10ML VL) IV ONE (08:25)
[2022-09-17] MEDS ORDERED: HEPARIN SODIUM 1,000 UN/ML (10ML VL) IV PRN (08:25)
[2022-09-17] MEDS ORDERED: HEPARIN SOD,PORK IN 0.45% NACL 25,000 UNIT in 0.45% NACL 1 250ML.BAG IV SCH (08:30)
[2022-09-17 09:12] LABS: Basophils # (A) 0.1 k/uL (0-0.2); Basophils % (A) 0 %; Eosinophils # (A) 0.3 k/uL (0-0.7); Eosinophils % (A) 2 %; HCT 43.6 % (39.0-53.0); HGB 13.9 gm/dL (13.0-17.5); Hypochromasia Moderate; Lymphocytes # (A) 2.5 k/uL (1.0-4.8); Lymphocytes % (A) 21 %; MCH 28.5 pg (25.0-35.0); MCHC 31.9 g/dL (31.0-37.0); MCV 89.3 fL (80.0-100.0); Mean Platelet Volume 7.3; Monocytes # (A) 0.6 k/uL (0-1.0); Monocytes % (A) 5 %; Neutrophils # (A) 8.2 k/uL (1.3-7.7); Neutrophils % (A) 69 %; Platelet Count 245 k/uL (150-450); RBC 4.88 m/uL (4.30-5.90); RDW 14.1 % (11.5-15.5); WBC 11.9 k/uL (3.8-10.6)
[2022-09-17] MEDS: SODIUM CHLORIDE 0.9% 1,000 ML in EMPTY BAG 1 BAG IV SCH ×2 (09:12→20:47)
[2022-09-17 09:22] LABS: INR 0.9 (<1.2); Partial Thromboplastin Time 22.7 sec (22.0-30.0); Prothrombin Time 10.4 sec (9.0-12.0)
[2022-09-17] MEDS: ASPIRIN 81 MG PO SCH (09:23)
--- NOTE | 2022-09-17 10:34 | P.CRDCN ---
History of Present Illness History of present illness: HISTORY OF PRESENT ILLNESS: This is a 72-year-old male with a past medical history significant for coronary artery disease with previous stenting, bullous emphysema with lung surgery, COPD, hypertension, and hyperlipidemia. Patient follows in the office with Dr. Ochoa. We have been asked to see the patient in consultation for chest pain. Patient examined at the bedside. Patient reports he began having chest pain yesterday. He describes the pain as a burning type sensation that he rated 10/10. He took 2 nitro and had resolution of his pain within a few minutes. Patient states his pain came back later on in the day and he took 2 more nitro which again helped relieve his pain. He states at night his pain increased and was on the left side of his chest and went into his armpit and left arm. He states that his symptoms feel similar to his previous stenting. He does report that he was on Eliquis for stent thrombosis in which Dr. Ochoa stopped his Eliquis his last office visit. * EKG reveals sinus bradycardia with no signs of acute ischemia * Chest xray there are some fibrotic changes and subsegmental atelectasis at the lung bases. No significant change compared to old exam. Normal heart. * Laboratory data: WBC 11.9. Hemoglobin 13.9. Platelet count 245. Sodium 138. Potassium 4.0. BUN 15. Creatinine 0.65. Magnesium 1.8. Troponin 2. * Current home cardiac medications include Lipitor 40 mg at night, Plavix 75 mg at night * Echocardiogram completed in April 2021 revealed ejection fraction 55%, mild to moderate tricuspid regurgitation * Cardiac catheterization history: December 2019. Patient presented with a non- STEMI. Underwent cardiac catheterization that revealed RCA was totally occluded probable in-stent thrombosis underwent repeat stenting with a larger drug-eluting stent. Circumflex marginal was widely patent. REVIEW OF SYSTEMS: At the time of my exam: CONSTITUTIONAL: Denies fever or chills. HEENT: Denies blurred vision, vision changes, or eye pain. Denies hemoptysis CARDIOVASCULAR: Denies chest pain. Denies orthopnea. Denies PND. Denies palpitations RESPIRATORY: Denies shortness of breath. GASTROINTESTINAL: Denies abdominal pain. Denies nausea or vomiting. HEMATOLOGIC: Denies bleeding disorders. GENITOURINARY: Denies any blood in urine. SKIN: Denies pruitis. Denies rash. PHYSICAL EXAM: VITAL SIGNS: Reviewed. GENERAL: Well-developed in no acute distress. HEENT: Head is normocephalic. Pupils are equal, round. Sclerae anicteric. Mucous membranes of the mouth are moist. Neck supple. No JVD or thyromegaly LUNGS: Respirations even and unlabored. Lungs essentially clear to auscultation bilaterally. HEART: Regular rate and rhythm. S1 and S2 heard. ABDOMEN: Soft. Nondistended. Nontender. EXTREMITIES: Normal range of motion. No clubbing or cyanosis. Peripheral pulses intact. No lower extremity edema NEUROLOGIC: Awake and alert. Oriented x 3. ASSESSMENT: Unstable angina Coronary artery disease with previous PCI History of stent thrombosis History of bullous emphysema with lung surgery COPD Hypertension Hyperlipidemia Former nicotine dependence PLAN: Resume home cardiac medications Add aspirin 81 mg daily Begin IV heparin Hold off on beta yoselyn at this time as patient has sinus bradycardia at [facility] Check lipid panel Patient to undergo cardiac catheterization today with Dr. Ochoa Further recommendations pending patient's course Nurse practitioner note has been reviewed by physician. Signing provider agrees with the documented findings, assessment, and plan of care. Past Medical History Past Medical History: COPD, CVA/TIA, Diabetes Mellitus, GERD/Reflux, Hearing Disorder / Deafness, Hyperlipidemia, Myocardial Infarction ([place]), Musculoskeletal Disorder, Osteoarthritis ([place]), Pneumonia, Prostate Disorder, Pulmonary Embolus ( [place]), Respiratory Disorder Additional Past Medical History / Comment(s): PE/RLL pneumonia/acute hypoxic failure. Portal bollous emphysema. low back pain, bilat sciatica; RLS; migraines, TIA , BPH, hearing aids, , diverticulosis. onset diabetes 08/11/19, multiple pneumothorax, O2 @2-4L [place] prn. Adrenal insufficiency Last Myocardial Infarction Date:: 12/30/2019 History of Any Multi-Drug Resistant Organisms: None Reported Past Surgical History: Heart Catheterization With Stent, Hernia Repair, Ort hopedic Surgery, Prostate Surgery, Tonsillectomy Additional Past Surgical History / Comment(s): Septoplasty/ESSS, EGD, colonoscopy with benign polyp, R inguinal hernia, umbilical hernia, pain clinic procedures, atilio fundloplication. upper bilat lung lobes removed 05/2021, p rostate surgery 3 weeks ago. Past Anesthesia/Blood Transfusion Reactions: No Reported Reaction Additional Past Anesthesia/Blood Transfusion Reaction / Comment(s): no known family hx Date of Last Stent Placement:: Smoking Status: Former smoker - Past Family History Father History Unknown: Yes Family Medical History: No Reported History, Unable to Obtain Additional Family Medical History / Comment(s): Pt was adopted. Mother History Unknown: Yes Additional Family Medical History / Comment(s): Pt was adopted. Daughter(s) Additional Family Medical History / Comment(s): Children do not have any major medical problems. No history of blood clots. Medications and Allergies Home Medications Medication Instructions Recorded Confirmed Type Gabapentin 1,200 mg PO HS 04/09/16 09/17/22 History traZODone HCL 150 mg PO HS 04/09/16 09/17/22 History ALPRAZolam [Xanax] 1 mg PO HS PRN 03/25/20 09/17/22 History Albuterol Sulfate [Ventolin HFA] 2 puff INHALATION RT-Q6H PRN 10/25/21 09/17/22 History Atorvastatin [Lipitor] 40 mg PO HS 10/25/21 09/17/22 History Fluticasone/Umeclidin/Vilanter 1 puff INHALATION RT-DAILY 10/25/21 09/17/22 History [Trelegy Ellipta 100-62.5-25] HYDROcodone/APAP 7.5-325MG [[place] 1 tab PO TID PRN 10/25/21 09/17/22 History 7.5-325] Clopidogrel [Plavix] 75 mg PO HS 04/19/22 09/17/22 History Hydrocortisone [Cortef] 30 mg PO DAILY 04/19/22 09/17/22 History methocarbamoL [Robaxin-750] 750 mg PO BID PRN 04/20/22 09/17/22 History metFORMIN HCL [Glucophage] 500 mg PO QAM 05/31/22 09/17/22 History Gabapentin 600 mg PO DAILY 09/17/22 09/17/22 History Pantoprazole Sodium [Protonix] 40 mg PO BID 09/17/22 09/17/22 History Allergies Allergy/AdvReac Type Severity Reaction Status Date / Time No Known Allergies Allergy Verified 09/17/22 07:11 Physical Exam Vitals: Vital Signs Temp Pulse Resp BP Pulse Ox 09/17/22 05:11 63 15 129/74 100 09/17/22 00:14 98.1 F 68 15 135/95 97 Intake and Output 09/16/22 09/17/22 09/17/22 22:59 06:59 14:59 Other: Weight 83.915 kg Results 09/17/22 08:53 09/16/22 23:49 Cardiac Enzymes 09/16/22 09/16/22 09/17/22 Range/Units 23:49 23:49 06:25 AST 13 L (17-59) U/L Troponin I 0.024 0.019 (0.000-0.034) ng/mL CBC 09/16/22 Range/Units 23:49 WBC 11.6 H (3.8-10.6) k/uL RBC 4.60 (4.30-5.90) m/uL Hgb 13.2 (13.0-17.5) gm/dL Hct 40.9 (39.0-53.0) % Plt Count 263 (150-450) k/uL Comprehensive Metabolic Panel 09/16/22 Range/Units 23:49 Sodium 138 (137-145) mmol/L Potassium 4.0 (3.5-5.1) mmol/L Chloride 107 (98-107) mmol/L Carbon Dioxide 25 (22-30) mmol/L BUN 15 (9-20) mg/dL Creatinine 0.65 L (0.66-1.25) mg/dL Glucose 92 (74-99) mg/dL Calcium 8.3 L (8.4-10.2) mg/dL AST 13 L (17-59) U/L ALT 15 (4-49) U/L Alkaline Phosphatase 53 (38-126) U/L Total Protein 5.0 L (6.3-8.2) g/dL Albumin 2.9 L (3.5-5.0) g/dL Current Medications Generic Name Dose Route Start Last Admin Trade Name Freq PRN Reason Stop Dose Admin Naloxone HCl 0.2 mg 09/17/22 00:39 Naloxone 0.4 Mg/Ml 1 Ml Vial IV Q2M PRN Opioid Reversal Intake and Output 09/16/22 09/17/22 09/17/22 22:59 06:59 14:59 Other: Weight 83.915 kg 09/16/22 23:49 09/16/22 23:49
[2022-09-17] MEDS: MIDAZOLAM 2 MG/2 ML VIAL IV ONE ×2 (10:53→10:55)
[2022-09-17] MEDS ORDERED: LIDOCAINE 1% INJ 10MG/ML (30 ML VIAL-PF) SQ ONE (10:55)
[2022-09-17] MEDS ORDERED: fentaNYL (PF) 50 MCG/ML 2 ML AMP ONE (10:58)
[2022-09-17] MEDS: fentaNYL (PF) 50 MCG/ML 2 ML AMP IV ONE ×2 (11:00→11:29)
[2022-09-17] MEDS ORDERED: HEPARIN SODIUM 1,000 UN/ML (10ML VL) ONE (11:11)
[2022-09-17] MEDS ORDERED: IOPAMIDOL-370 100ML BTL INJ ONE ×3 (11:20→11:42)
[2022-09-17] MEDS ORDERED: NITROGLYCERIN 1000MCG/10ML SYRINGE INTRACORON ONE (11:33)
[2022-09-17] MEDS ORDERED: TICAGRELOR 90 MG TAB ONE (11:43)
[2022-09-17] MEDS ORDERED: TICAGRELOR 90 MG TAB PO ONE (11:44)
[2022-09-17] MEDS ORDERED: RX INFO: IV CONTRAST WAS GIVEN 1 EACH MISC MISCELLANE PRN (11:59)
[2022-09-17] MEDS: LIDOCAINE 2% URO-JET JELLY 5 ML KIT ONE ×2 (12:09→12:14)
--- NOTE | 2022-09-17 13:17 | P.HPIM ---
History of Present Illness H&P Date: 09/17/22 Patient is a 72-year-old male with a past medical history including diabetes, hypertension and previous coronary artery disease status post 2 stents who presented to the ER for chest pain. Patient chest pain started around 2 PM yesterday afternoon while he was putting tarp over the hot tub, chest pain was central in location, burning in nature and was 10/10 intensity. Patient denies any radiation of this chest pain. Patient did take 2 sublingual nitroglycerin tabs and his chest pain did improve. Patient stated that around 6 PM he had recurrence of the chest pain on the left side without radiation and took 2 more sublingual nitroglycerin tablets with relief of his chest pain. The patient did however state that a third episode of chest pain began last evening forcing him to come to the hospital . Patient was worked up in the ER, all lab work was normal, troponin was normal. Patient was admitted to hospitalist service for evaluation of this chest pain. REVIEW OF SYSTEMS: CONSTITUTIONAL: No fever, no malaise, no fatigue. HEENT: No recent visual problems or hearing problems. Denied any sore throat. CARDIOVASCULAR: No orthopnea, PND, no palpitations, no syncope. PULMONARY: No shortness of breath, no cough, no hemoptysis. GASTROINTESTINAL: No diarrhea, no nausea, no vomiting, no abdominal pain. NEUROLOGICAL: No headaches, no weakness, no numbness. HEMATOLOGICAL: Denies any bleeding or petechiae. GENITOURINARY: Denies any burning micturition, frequency, or urgency. MUSCULOSKELETAL/RHEUMATOLOGICAL: Denies any joint pain, swelling, or any muscle pain. ENDOCRINE: Denies any polyuria or polydipsia. The rest of the 14-point review of systems is negative. PHYSICAL EXAMINATION: GENERAL: The patient is alert and oriented x3, not in any acute distress. Well developed, well nourished. HEENT: Pupils are round and equally reacting to light. EOMI. No scleral icterus. No conjunctival pallor. Normocephalic, atraumatic. No pharyngeal erythema. No thyromegaly. CARDIOVASCULAR: S1 and S2 present. No murmurs, rubs, or gallops. PULMONARY: Chest is clear to auscultation, no wheezing or crackles. ABDOMEN: Soft, nontender, nondistended, normoactive bowel sounds. No palpable organomegaly. MUSCULOSKELETAL: No joint swelling or deformity. EXTREMITIES: No cyanosis, clubbing, or pedal edema. NEUROLOGICAL: Gross neurological examination did not reveal any focal deficits. SKIN: No rashes. Assessment and plan Chest pain Unstable angina Coronary artery disease with previous PCI History of stent thrombosis History of bullous emphysema with lung surgery COPD Hypertension Hyperlipidemia Plan; Continue telemetry monitoring. Monitor electrolytes. Monitor renal functions. Patient started on IV heparin. Cardiology consulted, they plan to take the patient for cardiac cath D-dimer was elevated, will hold off CT angio chest at this time. CODE STATUS discussed with patient he wants to be full code DVT prophylaxis: Heparin Past Medical History Past Medical History: COPD, CVA/TIA, Diabetes Mellitus, GERD/Reflux, Hearing Disorder / Deafness, Hyperlipidemia, Myocardial Infarction ([place]), Musculoskeletal Disorder, Osteoarthritis (OA), Pneumonia, Prostate Disorder, Pulmonary Embolus ([place]), Respiratory Disorder Additional Past Medical History / Comment(s): PE/RLL pneumonia/acute hypoxic failure. Portal bollous emphysema. low back pain, bilat sciatica; RLS; migraines, TIA , BPH, hearing aids, , diverticulosis. onset diabetes 08/11/19, multiple pneumothorax, O2 @2-4L [place] prn. Adrenal insufficiency Last Myocardial Infarction Date:: 12/30/2019 History of Any Multi-Drug Resistant Organisms: None Reported Past Surgical History: Heart Catheterization With Stent, Hernia Repair, Orthopedic Surgery, Prostate Surgery, Tonsillectomy Additional Past Surgical History / Comment(s): Septoplasty/ESSS, EGD, colonoscopy with benign polyp, R inguinal hernia, umbilical hernia, pain clinic procedures, atilio fundloplication. upper bilat lung lobes removed 05/2021, prostate surgery 3 weeks ago. Past Anesthesia/Blood Transfusion Reactions: No Reported Reaction Additional Past Anesthesia/Blood Transfusion Reaction / Comment(s): no known family hx Date of Last Stent Placement:: Smoking Status: Former smoker - Past Family History Father History Unknown: Yes Family Medical History: No Reported History, Unable to Obtain Additional Family Medical History / Comment(s): Pt was adopted. Mother History Unknown: Yes Additional Family Medical History / Comment(s): Pt was adopted. Daughter(s) Additional Family Medical History / Comment(s): Children do not have any major medical problems. No history of blood clots. Medications and Allergies Home Medications Medication Instructions Recorded Confirmed Type Gabapentin 1,200 mg PO HS 04/09/16 09/17/22 History traZODone HCL 150 mg PO HS 04/09/16 09/17/22 History ALPRAZolam [Xanax] 1 mg PO HS PRN 03/25/20 09/17/22 History Albuterol Sulfate [Ventolin HFA] 2 puff INHALATION RT-Q6H PRN 10/25/21 09/17/22 History Atorvastatin [Lipitor] 40 mg PO HS 10/25/21 09/17/22 History Fluticasone/Umeclidin/Vilanter 1 puff INHALATION RT-DAILY 10/25/21 09/17/22 History [Trelegy Ellipta 100-62.5-25] HYDROcodone/APAP 7.5-325MG [[place] 1 tab PO TID PRN 10/25/21 09/17/22 History 7.5-325] Clopidogrel [Plavix] 75 mg PO HS 04/19/22 09/17/22 History Hydrocortisone [Cortef] 30 mg PO DAILY 04/19/22 09/17/22 History methocarbamoL [Robaxin-750] 750 mg PO BID PRN 04/20/22 09/17/22 History metFORMIN HCL [Glucophage] 500 mg PO QAM 05/31/22 09/17/22 History Gabapentin 600 mg PO DAILY 09/17/22 09/17/22 History Pantoprazole Sodium [Protonix] 40 mg PO BID 09/17/22 09/17/22 History Allergies Allergy/AdvReac Type Severity Reaction Status Date / Time No Known Allergies Allergy Verified 09/17/22 07:11 Physical Exam Vitals: Vital Signs Temp Pulse Pulse Resp BP BP Pulse Ox 09/17/22 07:00 98.2 F 57 L 22 150/89 94 L 09/17/22 05:11 63 15 129/74 100 09/17/22 00:14 98.1 F 68 15 135/95 97 Intake and Output 09/16/22 09/17/22 09/17/22 22:59 06:59 14:59 Intake Total 250 Output Total 850 Balance -600 Intake: IV 250 Output: Urine 850 Other: Weight 83.915 kg Results CBC & Chem 7: 09/17/22 08:53 11/20/22 23:49 Labs: Abnormal Lab Results - Last 24 Hours (Table) 09/16/22 09/16/22 09/17/22 Range/Units 23:49 23:49 08:53 WBC 11.6 H 11.9 H (3.8-10.6) k/uL Neutrophils # 9.5 H 8.2 H (1.3-7.7) k/uL D-Dimer (<0.60) mg/L FEU Creatinine 0.65 L (0.66-1.25) mg/dL Calcium 8.3 L (8.4-10.2) mg/dL Total Bilirubin 0.1 L (0.2-1.3) mg/dL AST 13 L (17-59) U/L Total Protein 5.0 L (6.3-8.2) g/dL Albumin 2.9 L (3.5-5.0) g/dL 09/17/22 Range/Units 08:53 WBC (3.8-10.6) k/uL Neutrophils # (1.3-7.7) k/uL D-Dimer 0.97 H (<0.60) mg/L FEU Creatinine (0.66-1.25) mg/dL Calcium (8.4-10.2) mg/dL Total Bilirubin (0.2-1.3) mg/dL AST (17-59) U/L Total Protein (6.3-8.2) g/dL Albumin (3.5-5.0) g/dL
--- NOTE | 2022-09-17 14:36 | CC ---
CARDIAC CATHETERIZATION REPORT DATE OF SERVICE: 09/17/2022. PROCEDURES PERFORMED: 1. Left heart catheterization and coronary angiography. 2. Percutaneous transluminal coronary angioplasty and stenting of mid left anterior descending with a drug-eluting stent. 3. Intravascular ultrasound of left anterior descending. PERFORMED BY: Dr. Erasmo Ochoa Moderate conscious sedation time was 55 minutes. The patient was administered Versed. Oxygen saturation, hemodynamics, and EKG were monitored closely. CLINICAL INFORMATION: Mr. Duong is a 72-year-old gentleman with a known history of CAD, multivessel PCI, hypertension, hyperlipidemia, and also bullous emphysema, status post bilateral bullous resection at [facility]. He has COPD, past history of smoking, hypertension, and hyperlipidemia. He also has a sick sinus syndrome, and I have not used beta- blockers. However, he has no symptoms of dizziness or lightheadedness. He came into the hospital with episode of chest pain raising the possibility of angina. Since his last visit, he stopped taking Eliquis, which was given to him for pulmonary embolism in 2019. He also stopped 5 days ago Plavix in preparation for some epidural injections that were to be scheduled in 48 hours from today. However, his anginal symptoms were of concern. Troponin was negative. Echo was pending. He was advised cardiac catheterization after due discussion regarding risks, benefits, and options. PROCEDURE NOTE: Under local anesthesia and strict aseptic precautions, a 6-Albanian introducer was placed in the right femoral artery. Using standard Shannan catheters, I performed coronary angiography, and a pigtail catheter was used to check LV pressure, but LV gram was not performed. Following the procedure, I performed PCI of LAD. I noted that RCA was totally occluded with a chronic total occlusion. Following the PCI, I performed intravascular ultrasound. The sheath was taken out, and Angio-Seal device was used to secure hemostasis, and he was sent to the room in a stable condition. Results were discussed with the patient and his . CARDIAC CATHETERIZATION FINDINGS: The left ventricular end-diastolic pressure was about 10 to 11 mmHg without any gradient across aortic valve. CORONARY ANGIOGRAPHY FINDINGS: RIGHT CORONARY ARTERY: Dominant vessel, totally occluded in the proximal portion within the previous stent and suggestive of a chronic total occlusion. Ipsilateral collateralization and reconstitution of the distal vessel with PDA and PLV filling up. Distal RCA has about a 50% lesion. There is a long gap suggestive of chronic total occlusion. This patient had the stenting of this vessel performed on December 29 and January 12, 2020. At both times, it was like a chronic total occlusion. LEFT MAIN CORONARY ARTERY: Short, patent, disease-free vessel that bifurcates into LAD and circumflex. LEFT ANTERIOR DESCENDING CORONARY ARTERY: Good-caliber vessel. In the midportion, there is a long area of disease, where focal narrowing of 95%. There are haziness and calcification, beyond which the caliber improves and the vessel runs all the way to the apex. This is a significant progression of disease compared to the cardiac catheterization from December 2019. Mid LAD lesion is long and has a focal 95% and other areas of 60% to 70%. Proximal to this area of disease, there is about a 30% narrowing in the LAD. LEFT POSTERIOR CIRCUMFLEX CORONARY ARTERY: This vessel is widely patent. The first obtuse marginal that was stented is widely patent with brisk flow. Continuation of circumflex in the AV groove has mild diffuse disease, but obtuse marginal is widely patent with good flow. Some branches of obtuse marginal have some disease, unchanged from 2019. Left ventriculogram was not performed. FINAL IMPRESSION: This patient has a right-dominant system, total occlusion of the right coronary artery, which is a chronic total occlusion within the stent in the proximal portion, later distal reconstitution noted with some ipsilateral collaterals. Left main is unremarkable. Circumflex is widely patent. First obtuse marginal stent is widely patent with good flow. Mid left anterior descending has a new 95% lesion, long area of disease with calcification. This is progression of disease. No gradient across aortic valve. Normal filling pressures. RECOMMENDATIONS: I recommended PCI of LAD and performed in the same setting. I suggested that we will work with a BUSINESS RELATIONSHIP MANAGER of RCA at a later date. PCI PROCEDURE DETAILS: I used a standard left Shannan guide catheter and a Runthrough wire. Lesion was crossed. Wire was kept distally. The patient received intravenous heparin. His ACT initially was 314. Repeat one was 249, and he received a total of about 6000 units of heparin. He also received 180 mg of Brilinta. He will be on dual-antiplatelet therapy Aspirin and Brilinta without interruption for 1 year. I used a Runthrough wire to cross the lesion. I used a 3.0-caliber, 15-mm NC Trek balloon and pre-dilated the lesion at 14 atmospheres. I then deployed a 15-mm long, 4.0-caliber Xience stent at 14 atmospheres. I performed IVUS, and IVUS revealed that the minimal luminal diameter was about 3.2 with remarkably good expansion and good apposition of the stent struts. The sheath was then taken out, and Angio-Seal device was used to secure hemostasis, and the patient was sent to the room in a stable condition. Results were discussed with the patient and family. Excellent angiographic result without complication was achieved. The patient will be discharged tomorrow, and I will bring him back for the BUSINESS RELATIONSHIP MANAGER intervention after due discussion in the office. Return office visit was made for September 25, at 02:45 p.m. MICHELLE / AVINASH: [id number] / LUIS A
[2022-09-17] MEDS ORDERED: methocarbamoL 750 MG TAB PO PRN (14:48)
[2022-09-17] MEDS ORDERED: ALBUTEROL NEBULIZED 2.5 MG/3 ML INHALATION PRN (14:48)
[2022-09-17] MEDS ORDERED: HYDROcodone/APAP 7.5-325MG 1 EACH TAB PO PRN (14:48)
[2022-09-17] MEDS ORDERED: ALPRAZolam 1 MG TAB PO PRN (14:48)
[2022-09-17] MEDS ORDERED: DEXTROSE 50% SYRINGE 50 ML IVP PRN ×2 (14:49)
[2022-09-17 16:09] LABS: Chol/HDL Ratio 3.93 Ratio; LDL Cholesterol,Calculated 79.7 mg/dL (0.0-131.0)
[2022-09-17] MEDS ORDERED: LOSARTAN 50 MG TAB PO STA (16:37)
--- NOTE | 2022-09-17 17:18 | CA ---
Transthoracic Echo Report Name: Deandre Duong Age: 72 Gender: M : 1950 Exam Date: 09/17/2022 15:57 Exam Location: [facility] Ht (in): 70 Wt (lb): 185 Ordering Physician: Shae Rubin Attending/Referring Phys: [id number], Caryn Case Fitter Jayla Odom, WHITNEY Procedure CPT: Indications: LV function Cardiac Hx: Technical Quality: Good Contrast 1: Total Dose (mL): Contrast 2: Total Dose (mL): MEASUREMENTS (Male / Female) Normal Values 2D ECHO LV Diastolic Diameter PLAX 4.7 cm 4.2 - 5.9 / 3.9 - 5.3 cm LV Systolic Diameter PLAX 3.1 cm IVS Diastolic Thickness 1.1 cm 0.6 - 1.0 / 0.6 - 0.9 cm LVPW Diastolic Thickness 1.2 cm 0.6 - 1.0 / 0.6 - 0.9 cm LV Relative Wall Thickness 0.5 RV Internal Dim ED PLAX 3.3 cm LA Systolic Diameter LX 4.0 cm 3.0 - 4.0 / 2.7 - 3.8 cm LA Volume 57.5 cm??? 18 - 58 / 22 - 52 cm??? M-MODE Aortic Root Diameter MM 3.6 cm MV E Point Septal Separation 0.5 cm AV Cusp Separation MM 2.2 cm DOPPLER AV Peak Velocity 190.3 cm/s AV Peak Gradient 14.5 mmHg MV Area PHT 3.1 cm??? Mitral E Point Velocity 78.4 cm/s Mitral A Point Velocity 105.7 cm/s Mitral E to A Ratio 0.7 MV Deceleration Time 244.5 ms MV E' Velocity 6.3 cm/s Mitral E to MV E' Ratio 12.5 FINDINGS Left Ventricle Left ventricular ejection fraction is estimated at 55-60 %. Left ventricular cavity size normal. Mildly increased septal wall thickness. Right Ventricle Mild right ventricular dilatation. Unable to estimate the right ventricular systolic pressure. Right Atrium Normal right atrial size. Left Atrium Mildly increased left atrial area. No evidence for an atrial septal defect. Mitral Valve Mitral valve thickened. Mitral annular calcification. Aortic Valve Trileaflet aortic valve. No aortic valve stenosis or regurgitation. Tricuspid Valve Structurally normal tricuspid valve. No tricuspid stenosis, regurgitation or prolapse. Pulmonic Valve Trace pulmonic regurgitation. Pericardium Normal pericardium. No pericardial effusion. Aorta Normal size aortic root and proximal ascending aorta. CONCLUSIONS Left ventricular ejection fraction 55-60% Mildly increased left ventricular wall thickness Mild mitral annular calcification No pericardial effusion Previewed by: Dr. Mario Collins DO (Electronically Signed) Final Date: 17 September 2022 17:17
[2022-09-17 17:54] LABS: Glucose,Whole Blood 113 mg/dL (70-110)
[2022-09-17] MEDS: INSULIN ASPART (NovoLOG) 100 UNIT/ML VIAL SQ SCH ×2 (17:55→20:16)
[2022-09-17] MEDS: PANTOPRAZOLE 40 MG TABLET PO SCH (20:15)
[2022-09-17 20:19] LABS: Glucose,Whole Blood 146 mg/dL (70-110)
[2022-09-17] MEDS ORDERED: traZODone HCL 50 MG TAB PO SCH (21:00)
[2022-09-17] MEDS ORDERED: ATORVASTATIN 40 MG TAB PO SCH (21:00)
[2022-09-17] MEDS ORDERED: GABAPENTIN 400 MG CAP PO SCH (21:00)
[2022-09-17] MEDS ORDERED: ATORVASTATIN 80 MG TAB PO SCH (21:00)
[2022-09-17] MEDS ORDERED: CLOPIDOGREL 75 MG TAB PO SCH (21:00)
[2022-09-18 06:22] LABS: Glucose,Whole Blood 97 mg/dL (70-110)
[2022-09-18] MEDS: INSULIN ASPART (NovoLOG) 100 UNIT/ML VIAL SQ SCH ×2 (06:23→12:58)
[2022-09-18] MEDS ORDERED: HEPARIN SODIUM,PORCINE 2,500 UNIT in SODIUM CHLORIDE 0.9% 250 ML IRRIGATION PRN (07:00)
[2022-09-18] MEDS ORDERED: HEPARIN SODIUM,PORCINE 10,000 UNIT in SODIUM CHLORIDE 0.9% 1,000 ML IRRIGATION PRN (07:00)
[2022-09-18 07:27] VITALS: BP 119/75; RESP 18; TEMP 97.5
[2022-09-18] MEDS ORDERED: NON FORMULARY DRUG (Fluticasone/Umeclidin/Vilanter [Trelegy Ellipta 100-62.5-25] 1 EACH Ea INHALATION SCH (08:00)
[2022-09-18] MEDS ORDERED: SYMBICORT 80-4.5 MCG INHALER INHALATION SCH (08:00)
[2022-09-18] MEDS: PANTOPRAZOLE 40 MG TABLET PO SCH (08:52)
[2022-09-18] MEDS: ASPIRIN 81 MG PO SCH (08:52)
[2022-09-18] MEDS ORDERED: GABAPENTIN 300 MG CAP PO SCH (09:00)
[2022-09-18] MEDS ORDERED: LOSARTAN 50 MG TAB PO SCH (09:00)
[2022-09-18] MEDS ORDERED: TICAGRELOR 90 MG TAB PO SCH (09:00)
[2022-09-18] MEDS ORDERED: METOPROLOL TARTRATE 12.5 MG TAB PO SCH (09:00)
[2022-09-18] MEDS ORDERED: HYDROCORTISONE 10 MG TAB PO SCH (09:00)
[2022-09-18] MEDS: IPRATROPIUM 0.5 MG/2.5 ML NEBU INHALATION SCH ×2 (09:20→12:42)
[2022-09-18 09:41] LABS: Basophils # (A) 0.06 X 10*3/uL (0.00-0.10); Basophils % (A) 0.5 %; Eosinophils # (A) 0.58 X 10*3/uL (0.04-0.35); HCT 40.9 % (39.6-50.0); HGB 12.8 g/dL (13.0-17.0); Lymphocytes # (A) 1.83 X 10*3/uL (0.90-5.00); Lymphocytes % (A) 15.7 %; MCH 27.9 pg (27.0-32.0); MCHC 31.3 g/dL (32.0-37.0); MCV 89.3 fL (80.0-97.0); Mean Platelet Volume 9.1 fL (9.5-12.2); Monocytes # (A) 0.94 X 10*3/uL (0.20-1.00); Monocytes % (A) 8.1 %; NRBC Per 100 WBC 0 /100 WBCS (0.0-0.0); Neutrophils # (A) 8.14 X 10*3/uL (1.80-7.70); Neutrophils % (A) 69.7 %; Platelet Count 240 X 10*3/uL (140-440); RBC 4.58 X 10*6/uL (4.40-5.60); RDW 14.8 % (11.5-14.5); WBC 11.67 X 10*3/uL (4.50-10.00)
[2022-09-18] MEDS: SODIUM CHLORIDE 0.9% 1,000 ML in EMPTY BAG 1 BAG IV SCH (10:07)
--- NOTE | 2022-09-18 10:08 | P.PN ---
Subjective HISTORY OF PRESENT ILLNESS: This is a 72-year-old male with a past medical history significant for coronary artery disease with previous stenting, bullous emphysema with lung surgery, COPD, hypertension, and hyperlipidemia. Patient follows in the office with Dr. Ochoa. We have been asked to see the patient in consultation for chest pain. Patient examined at the bedside. Patient reports he began having chest pain yesterday. He describes the pain as a burning type sensation that he rated 10/10. He took 2 nitro and had resolution of his pain within a few minutes. Patient states his pain came back later on in the day and he took 2 more nitro which again helped relieve his pain. He states at night his pain increased and was on the left side of his chest and went into his armpit and left arm. He states that his symptoms feel similar to his previous stenting. He does report that he was on Eliquis for stent thrombosis in which Dr. Ochoa stopped his Eliquis his last office visit. * EKG reveals sinus bradycardia with no signs of acute ischemia * Chest xray there are some fibrotic changes and subsegmental atelectasis at the lung bases. No significant change compared to old exam. Normal heart. * Laboratory data: WBC 11.9. Hemoglobin 13.9. Platelet count 245. Sodium 138. Potassium 4.0. BUN 15. Creatinine 0.65. Magnesium 1.8. Troponin 2. * Current home cardiac medications include Lipitor 40 mg at night, Plavix 75 mg at night * Echocardiogram completed in April 2021 revealed ejection fraction 55%, mild to moderate tricuspid regurgitation * Cardiac catheterization history: December 2019. Patient presented with a non- STEMI. Underwent cardiac catheterization that revealed RCA was totally occluded probable in-stent thrombosis underwent repeat stenting with a larger drug-eluting stent. Circumflex marginal was widely patent. 09/18/2022 Patient is status post cardiac catheterization. Patient underwent PCI of the LAD. Patient was also found to have a chronic total occlusion of the RCA. Patient examined this morning at the bedside. He denies chest pain or pressure. Denies shortness of breath. Vital signs are stable. Groin soft with no hematoma. PHYSICAL EXAM: VITAL SIGNS: Reviewed. GENERAL: Well-developed in no acute distress. HEENT: Head is normocephalic. Pupils are equal, round. Sclerae anicteric. Mucous membranes of the mouth are moist. Neck supple. No JVD or thyromegaly LUNGS: Respirations even and unlabored. Lungs essentially clear to auscultation bilaterally. HEART: Regular rate and rhythm. S1 and S2 heard. ABDOMEN: Soft. Nondistended. Nontender. EXTREMITIES: Normal range of motion. No clubbing or cyanosis. Peripheral pulses intact. No lower extremity edema NEUROLOGIC: Awake and alert. Oriented x 3. ASSESSMENT: Unstable angina, status post PCI of LAD Coronary artery disease with previous PCI of the RCA, status post PCI of the LAD Chronic total occlusion of RCA History of stent thrombosis History of bullous emphysema with lung surgery COPD Hypertension Hyperlipidemia Former nicotine dependence PLAN: Continue current cardiac medications Continue dual antiplatelet therapy with aspirin and brilinta Patient may be discharged home today from a cardiac standpoint Patient is to follow up on an outpatient basis with Dr. Ochoa Possible intervention of CNA PCT of RCA at a later date Further recommendations pending patient's course Nurse practitioner note has been reviewed by physician. Signing provider agrees with the documented findings, assessment, and plan of care. Objective - Vital Signs Vital signs: Vital Signs Temp 97.5 F L 09/18/22 07:00 Pulse 82 09/18/22 09:32 Resp 18 09/18/22 07:00 BP 119/75 09/18/22 07:00 Pulse Ox 91 L 09/18/22 09:22 FiO2 Intake & Output 09/17/22 09/18/22 09/18/22 18:59 06:59 18:59 Intake Total 754 300 240 Output Total 2100 600 Balance -1346 -300 240 Weight 83.915 kg Intake: IV 250 Intake, IV Titration 504 Amount Heparin Sod,Pork in 0.45% 504 NaCl 25,000 unit In 0.45 % NaCl 1 250ml.bag @ 11. 917 UNITS/KG/HR 10 mls/hr IV .Q24H NELDA Rx#: [id number] Oral 300 240 Output: Urine 850 600 Stool 1250 Other: Voiding Method Indwelling Catheter Indwelling Catheter # Voids 2 - Labs CBC & Chem 7: 09/18/22 05:34 09/16/22 23:49 Labs: Abnormal Lab Results - Last 24 Hours (Table) 09/17/22 09/17/22 09/17/22 Range/Units 08:53 14:25 17:52 WBC (4.50-10.00) X 10*3/uL Hgb (13.0-17.0) g/dL MCHC (32.0-37.0) g/dL RDW (11.5-14.5) % MPV (9.5-12.2) fL Immature Gran # (0.00-0.04) X 10*3/uL Neutrophils # (1.80-7.70) X 10*3/uL Eosinophils # (0.04-0.35) X 10*3/uL APTT 33.3 H (22.0-30.0) sec POC Glucose (mg/dL) 113 H (70-110) mg/dL Triglycerides 153.00 H (0.00-149.00) mg/dL HDL Cholesterol 37.70 L (40.00-60.00) mg/dL 09/17/22 09/18/22 Range/Units 20:11 05:34 WBC 11.67 H (4.50-10.00) X 10*3/uL Hgb 12.8 L (13.0-17.0) g/dL MCHC 31.3 L (32.0-37.0) g/dL RDW 14.8 H (11.5-14.5) % MPV 9.1 L (9.5-12.2) fL Immature Gran # 0.12 H (0.00-0.04) X 10*3/uL Neutrophils # 8.14 H (1.80-7.70) X 10*3/uL Eosinophils # 0.58 H (0.04-0.35) X 10*3/uL APTT (22.0-30.0) sec POC Glucose (mg/dL) 146 H (70-110) mg/dL Triglycerides (0.00-149.00) mg/dL HDL Cholesterol (40.00-60.00) mg/dL
[2022-09-18 10:17] LABS: Anion Gap 7.3 mmol/L (10.00-18.00); BUN/Creat Ratio 16.88 Ratio (12.00-20.00); Blood Urea Nitrogen 13.5 mg/dL (9.0-27.0); Calcium 8.2 mg/dL (8.7-10.3); Carbon Dioxide 27.7 mmol/L (20.0-27.5); Potassium 3.7 mmol/L (3.5-5.5)
[2022-09-18 10:43] LABS: INR 0.91 (0.90-1.11); Prothrombin Time 10.3 sec (9.9-11.9)
--- NOTE | 2022-09-18 11:03 | CT ---
EXAMINATION TYPE: CT chest angio for PE CT DLP: 415 mGycm, Automated exposure control for dose reduction was used. DATE OF EXAM: 09/18/2022 10:50 AM COMPARISON: CT chest 04/23/2022. CLINICAL INDICATION:Male, 72 years old with history of Chest pain; TECHNIQUE/CONTRAST: CTA scan of the thorax is performed with IV Contrast, patient injected with 79 mL of Isovue 370, pulm onary embolism protocol. MIP images are created and reviewed. FINDINGS: Pulmonary Artery: There is no evidence for a filling defect within the pulmonary vasculature to sugge st acute pulmonary embolism. The pulmonary artery is of normal size. Pulmonary valve identified. Lungs/Pleura: Marked bullous emphysematous changes are redemonstrated. Right middle lobe scarring and atelectasis similar. No hydronephrosis, focal consolidation, or pleural effusion. No pulmonary mass. Airway: Trace mucous debris demonstrated within the trachea. Heart: Heart is within normal limits for size.. No pericardial effusion. Coronary artery calcificatio ns and/or stents. Vasculature: No evidence of aortic aneurysm. Mild atherosclerotic calcification of the aorta and its branches. Mediastinum: No evidence of adenopathy. Musculoskeletal: No acute osseous abnormalities Soft Tissues: Unremarkable. Lower neck: No significant findings. Upper Abdomen: Small hiatal hernia. There is again cortical thinning of the lateral left kidney likel y related to relate to scarring. IMPRESSION: 1. No evidence of pulmonary embolism or acute thoracic process. 2. Similar appearance of marked bullous emphysematous changes. 3. Small hiatal hernia.
[2022-09-18 12:07] LABS: Glucose,Whole Blood 156 mg/dL (70-110)
[2022-09-18 12:53] VITALS: PULSE 68
--- NOTE | 2022-09-18 13:52 | P.DS ---
Providers Date of admission: 09/17/22 00:39 Expected date of discharge: 09/18/22 Attending physician: Dyana Giordano Consults: 09/17/22 00:39 Consult Physician Routine Consulting Provider: [facility] Consult Reason/Comments: Chest pain Do you want consulting provider notified?: Yes, Notify in am 09/18/22 10:22 Consult Physician Routine Consulting Provider: Willy Villagomez Consult Reason/Comments: chest pain , elevated d dimer, patient wants dr arora to see Do you want consulting provider notified?: Yes Primary care physician: Dyana Giordano Hospital Course: Discharge diagnoses; Chest pain Unstable angina Coronary artery disease with previous PCI History of stent thrombosis History of bullous emphysema with lung surgery COPD Hypertension Hyperlipidem Hospital course; Patient is a 72-year-old male with a past medical history including diabetes, hypertension and previous coronary artery disease status post 2 stents who presented to the ER for chest pain. Patient chest pain started around 2 PM yesterday afternoon while he was putting tarp over the hot tub, chest pain was central in location, burning in nature and was 10/10 intensity. Patient denies any radiation of this chest pain. Patient did take 2 sublingual nitroglycerin tabs and his chest pain did improve. Patient stated that around 6 PM he had recurrence of the chest pain on the left side without radiation and took 2 more sublingual nitroglycerin tablets with relief of his chest pain. The patient did however state that a third episode of chest pain began last evening forcing him to come to the hospital . Patient was worked up in the ER, all lab work was normal, troponin was normal. Patient was admitted to hospitalist service for evaluation of this chest pain. Cardiology evaluated the patient and recommended doing cardiac cath 09/18/2022 Patient is status post cardiac catheterization. Patient underwent PCI of the LAD. Patient was also found to have a chronic total occlusion of the RCA. Plan is for patient to follow up outpatient cardiology at which time they will decide about repeat cardiac cath for total occlusion of the RCA. Patient had CTA chest done is negative for PE. Patient cleared by cardiology for discharge PHYSICAL EXAMINATION: GENERAL: The patient is alert and oriented x3, not in any acute distress. Well developed, well nourished. HEENT: Pupils are round and equally reacting to light. EOMI. No scleral icterus. No conjunctival pallor. Normocephalic, atraumatic. No pharyngeal erythema. No thyromegaly. CARDIOVASCULAR: S1 and S2 present. No murmurs, rubs, or gallops. PULMONARY: Chest is clear to auscultation, no wheezing or crackles. ABDOMEN: Soft, nontender, nondistended, normoactive bowel sounds. No palpable organomegaly. MUSCULOSKELETAL: No joint swelling or deformity. EXTREMITIES: No cyanosis, clubbing, or pedal edema. NEUROLOGICAL: Gross neurological examination did not reveal any focal deficits. SKIN: No rashes. Patient Condition at Discharge: Stable Plan - Discharge Summary Discharge Rx Participant: No New Discharge Prescriptions: New Aspirin 81 mg PO DAILY #90 tab Losartan [Cozaar] 50 mg PO DAILY #90 tab Metoprolol Tartrate [Lopressor] 12.5 mg PO DAILY #90 tab Ticagrelor [Brilinta] 90 mg PO BID #60 tab Atorvastatin [Lipitor] 80 mg PO HS #90 tab Nitroglycerin Sl Tabs [Nitrostat] 0.4 mg SUBLINGUAL Q5M PRN #100 tab PRN Reason: Chest Pain Continue traZODone HCL 150 mg PO HS Gabapentin 1,200 mg PO HS ALPRAZolam [Xanax] 1 mg PO HS PRN PRN Reason: Anxiety Fluticasone/Umeclidin/Vilanter [Trelegy Ellipta 100-62.5-25] 1 puff INHALATION RT-DAILY HYDROcodone/APAP 7.5-325MG [[place] 7.5-325] 1 tab PO TID PRN PRN Reason: Pain methocarbamoL [Robaxin-750] 750 mg PO BID PRN PRN Reason: Pain Albuterol Sulfate [Ventolin HFA] 2 puff INHALATION RT-Q6H PRN PRN Reason: Shortness Of Breath Hydrocortisone [Cortef] 30 mg PO DAILY Gabapentin 600 mg PO DAILY Pantoprazole Sodium [Protonix] 40 mg PO BID Discontinued Clopidogrel [Plavix] 75 mg PO HS Atorvastatin [Lipitor] 40 mg PO HS No Action metFORMIN HCL [Glucophage] 500 mg PO QAM Discharge Medication List Gabapentin 1,200 mg PO HS 04/09/16 [History] traZODone HCL 150 mg PO HS 04/09/16 [History] ALPRAZolam [Xanax] 1 mg PO HS PRN 03/25/20 [History] Albuterol Sulfate [Ventolin HFA] 2 puff INHALATION RT-Q6H PRN 10/25/21 [History] Fluticasone/Umeclidin/Vilanter [Trelegy Ellipta 100-62.5-25] 1 puff INHALATION RT-DAILY 10/25/21 [History] HYDROcodone/APAP 7.5-325MG [[place] 7.5-325] 1 tab PO TID PRN 10/25/21 [History] Hydrocortisone [Cortef] 30 mg PO DAILY 04/19/22 [History] methocarbamoL [Robaxin-750] 750 mg PO BID PRN 04/20/22 [History] metFORMIN HCL [Glucophage] 500 mg PO QAM 05/31/22 [History] Gabapentin 600 mg PO DAILY 09/17/22 [History] Pantoprazole Sodium [Protonix] 40 mg PO BID 09/17/22 [History] Aspirin 81 mg PO DAILY #90 tab 09/18/22 [Rx] Atorvastatin [Lipitor] 80 mg PO HS #90 tab 09/18/22 [Rx] Losartan [Cozaar] 50 mg PO DAILY #90 tab 09/18/22 [Rx] Metoprolol Tartrate [Lopressor] 12.5 mg PO DAILY #90 tab 09/18/22 [Rx] Nitroglycerin Sl Tabs [Nitrostat] 0.4 mg SUBLINGUAL Q5M PRN #100 tab 09/18/22 [Rx] Ticagrelor [Brilinta] 90 mg PO BID #60 tab 09/18/22 [Rx] Follow up Appointment(s)/Referral(s): Dolores Ochoa MD [STAFF PHYSICIAN] - 09/25/22 2:45 pm None,Stated [REFERRING] - 1-2 days Activity/Diet/Wound Care/Special Instructions: Brilinta coupon given to patient for 30 day free supply. Subsequent refills will be approximately $137 through [facility]. Pamphlet also given to patient from medication prop attendant to inquire if he is eligible for any furthe r savings. Discharge Disposition: HOME SELF-CARE
--- NOTE | 2022-09-18 15:09 | P.CNPUL ---
History of Present Illness Consult date: 09/18/22 Requesting physician: Shane Rodas Reason for consult: COPD Chief complaint: Chest pain History of present illness: This is a 72-year-old male patient with a known history of chronic obstructive airway disease maintained on Trelegy and albuterol, chronic bullous emphysema, adrenal cortical hypofunction, previous left-sided pneumothorax, pulmonary embolism, myocardial infarction with 2 previous stents, gastric esophageal reflux disease, BPH. He had presented here to the emergency room early ye sterday morning with complaints of chest discomfort. He had taken 2 nitro glycerin sublingual which did improve the discomfort. The same discomfort recurred a second and then third time in which brought into the hospital. He was found to have unstable angina. Yesterday they did take him to the [facility] and he had undergone stenting to the mid LAD with a 95% lesion and the plan was for PCI/stenting of the RCA at a later date and the RCA was totally occluded as well as a chronic total occlusion of the stent in the proximal portion. Noted ipsilateral collaterals. Echocardiogram revealed preserved left ventricular systolic function with ejection fraction of 55-60%. White count 11.6. Hemo globin 12.8. Sodium 141. Potassium 3.7. BUN 13.5. Creatinine 0.8. D-dimer 0.97. Troponins negative. Total cholesterol 148. Triglycerides 153. LDL 80. HDL 30. He is in vision. On aspirin and Edwards along with statins and beta blockers. Continued his home COPD medications Trelegy and albuterol. He is seen today in consultation. He sitting up in bed. Awake and alert in no acute distress. No shortness of breath, cough or congestion. No chest pain. CT angiogram ruled out pulmonary embolism. Similar marketed bullous emphysematous changes noted. Small hiatal hernia. Review of Systems REVIEW OF SYSTEMS: CONSTITUTIONAL: Denies any recent significant weight loss or weight gain. EYES: Denies change in vision. EARS, NOSE, MOUTH, THROAT: Denies headaches, denies sore throat. CARDIOVASCULAR: Positive for chest pain, no palpitations or syncopal episodes. RESPIRATORY: Denies shortness of breath, cough, congestion or hemoptysis. GASTROINTESTINAL: Denies change in appetite, denies abdominal pain GENITOURINARY: Denies hematuria, denies infections. MUSKULOSKELETAL: Denies pain, denies swelling. INTEGUMENTARY: Denies rash, denies eczema. NEUROLOGICAL: Denies recent memory loss, no recent seizure activity. PSYCHIATRIC: Denies anxiety, denies depression. HEMATOLOGIC/LYMPHATIC: Denies anemia, denies enlarged lymph nodes. Past Medical History Past Medical History: COPD, CVA/TIA, Diabetes Mellitus, GERD/Reflux, Hearing Disorder / Deafness, Hyperlipidemia, Myocardial Infarction (MD), Musculoskeletal Disorder, Osteoarthritis (OA), Pneumonia, Prostate Disorder, Pulmonary Embolus (PE), Respiratory Disorder Additional Past Medical History / Comment(s): PE/RLL pneumonia/acute hypoxic failure. Portal bollous emphysema. low back pain, bilat sciatica; RLS; migraines, TIA , BPH, hearing aids, , diverticulosis. onset diabetes 08/11/19, multiple pneumothorax, O2 @2-4L [place] prn. Adrenal insufficiency Last Myocardial Infarction Date:: 12/30/2019 History of Any Multi-Drug Resistant Organisms: None Reported Past Surgical History: Heart Catheterization With Stent, Hernia Repair, Orthopedic Surgery, Prostate Surgery, Tonsillectomy Additional Past Surgical History / Comment(s): Septoplasty/ESSS, EGD, colonoscopy with benign polyp, R inguinal hernia, umbilical hernia, pain clinic procedures, atilio fundloplication. upper bilat lung lobes removed 05/2021, prostate surgery 3 weeks ago. Past Anesthesia/Blood Transfusion Reactions: No Reported Reaction Additional Past Anesthesia/Blood Transfusion Reaction / Comment(s): no known family hx Date of Last Stent Placement:: Past Psychological History: PTSD Additional Psychological History / Comment(s): Pt resides with his spouse. He uses no assistive device. He drives. He has a nebulizer and home oxygen as needed. Smoking Status: Former smoker Past Alcohol Use History: None Reported Additional Past Alcohol Use History / Comment(s): Pt started smoking in 1967, 1-1-1/2 packs per day, quit in 1999 Past Drug Use History: None Reported - Past Family History Father History Unknown: Yes Family Medical History: No Reported History, Unable to Obtain Additional Family Medical History / Comment(s): Pt was adopted. Mother History Unknown: Yes Additional Family Medical History / Comment(s): Pt was adopted. Daughter(s) Additional Family Medical History / Comment(s): Children do not have any major medical problems. No history of blood clots. Medications and Allergies Home Medications Medication Instructions Recorded Confirmed Type Gabapentin 1,200 mg PO HS 04/09/16 09/17/22 History traZODone HCL 150 mg PO HS 04/09/16 09/17/22 History ALPRAZolam [Xanax] 1 mg PO HS PRN 03/25/20 09/17/22 History Albuterol Sulfate [Ventolin HFA] 2 puff INHALATION RT-Q6H PRN 10/25/21 09/17/22 History Fluticasone/Umeclidin/Vilanter 1 puff INHALATION RT-DAILY 10/25/21 09/17/22 History [Trelegy Ellipta 100-62.5-25] HYDROcodone/APAP 7.5-325MG [Lorain 1 tab PO TID PRN 10/25/21 09/17/22 History 7.5-325] Hydrocortisone [Cortef] 30 mg PO DAILY 04/19/22 09/17/22 History methocarbamoL [Robaxin-750] 750 mg PO BID PRN 04/20/22 09/17/22 History metFORMIN HCL [Glucophage] 500 mg PO QAM 05/31/22 09/17/22 History Gabapentin 600 mg PO DAILY 09/17/22 09/17/22 History Pantoprazole Sodium [Protonix] 40 mg PO BID 09/17/22 09/17/22 History Aspirin 81 mg PO DAILY #90 tab 09/18/22 Rx Atorvastatin [Lipitor] 80 mg PO HS #90 tab 09/18/22 Rx Losartan [Cozaar] 50 mg PO DAILY #90 tab 09/18/22 Rx Metoprolol Tartrate [Lopressor] 12.5 mg PO DAILY #90 tab 09/18/22 Rx Nitroglycerin Sl Tabs [Nitrostat] 0.4 mg SUBLINGUAL Q5M PRN #100 tab 09/18/22 Rx Ticagrelor [Brilinta] 90 mg PO BID #60 tab 09/18/22 Rx Allergies Allergy/AdvReac Type Severity Reaction Status Date / Time No Known Allergies Allergy Verified 09/17/22 07:11 Physical Exam Vitals: Vital Signs Temp Pulse Pulse Resp BP Pulse Ox 09/18/22 12:52 68 09/18/22 12:42 76 09/18/22 09:32 82 09/18/22 09:22 77 91 L 09/18/22 07:00 97.5 F L 68 18 119/75 93 L 09/18/22 02:00 97.4 F L 52 L 16 97/64 91 L 09/17/22 19:43 97.6 F 75 16 129/86 94 L 09/17/22 16:25 82 16 154/93 94 L 09/17/22 15:25 94 16 155/76 Intake and Output 09/17/22 09/18/22 09/18/22 22:59 06:59 14:59 Intake Total 300 0 480 Output Total 1250 600 Balance -950 -600 480 Intake: Oral 300 0 480 Output: Urine 600 Stool 1250 Other: Voiding Method Indwelling Catheter Indwelling Catheter # Voids 2 GENERAL EXAM: Alert, pleasant 72-year-old male patient, on room air, comfortable in no apparent distress. HEAD: Normocephalic. EYES: Normal reaction of pupils, equal size. NOSE: Clear with pink turbinates. THROAT: No erythema or exudates. NECK: No masses, no JVD. CHEST: No chest wall deformity. LUNGS: Equal air entry with no crackles, wheeze, rhonchi or dullness. CVS: S1 and S2 normal with no audible murmur, regular rhythm. ABDOMEN: No hepatosplenomegaly, normal bowel sounds, no guarding or rigidity. SPINE: No scoliosis or deformity SKIN: No rashes CENTRAL NERVOUS SYSTEM: No focal deficits, tone is normal in all 4 extremities. EXTREMITIES: There is no peripheral edema. No clubbing, no cyanosis. Peripheral pulses are intact. Results - Laboratory Findings CBC and BMP: 09/18/22 05:34 09/18/22 05:34 PT/INR, D-dimer PT 10.3 sec (9.9-11.9) 09/18/22 05:34 INR 0.91 (0.90-1.11) 09/18/22 05:34 D-Dimer 0.97 mg/L FEU (<0.60) H 09/17/22 08:53 Abnormal lab findings: Abnormal Labs 09/16/22 09/16/22 09/17/22 23:49 23:49 08:53 WBC 11.6 H Hgb MCHC RDW MPV Immature Gran # Neutrophils # 9.5 H Eosinophils # APTT D-Dimer Carbon Dioxide Anion Gap Creatinine 0.65 L Glucose POC Glucose (mg/dL) Calcium 8.3 L Total Bilirubin 0.1 L AST 13 L Total Protein 5.0 L Albumin 2.9 L Triglycerides 153.00 H HDL Cholesterol 37.70 L 09/17/22 09/17/22 09/17/22 08:53 08:53 14:25 WBC 11.9 H Hgb MCHC RDW MPV Immature Gran # Neutrophils # 8.2 H Eosinophils # APTT 33.3 H D-Dimer 0.97 H Carbon Dioxide Anion Gap Creatinine Glucose POC Glucose (mg/dL) Calcium Total Bilirubin AST Total Protein Albumin Triglycerides HDL Cholesterol 09/17/22 09/17/22 09/18/22 17:52 20:11 05:34 WBC 11.67 H Hgb 12.8 L MCHC 31.3 L RDW 14.8 H MPV 9.1 L Immature Gran # 0.12 H Neutrophils # 8.14 H Eosinophils # 0.58 H APTT D-Dimer Carbon Dioxide Anion Gap Creatinine Glucose POC Glucose (mg/dL) 113 H 146 H Calcium Total Bilirubin AST Total Protein Albumin Triglycerides HDL Cholesterol 09/18/22 09/18/22 05:34 12:01 WBC Hgb MCHC RDW MPV Immature Gran # Neutrophils # Eosinophils # APTT D-Dimer Carbon Dioxide 27.7 H Anion Gap 7.30 L Creatinine Glucose 116 H POC Glucose (mg/dL) 156 H Calcium 8.2 L Total Bilirubin AST Total Protein Albumin Triglycerides HDL Cholesterol - Diagnostic Findings Chest x-ray: image reviewed CT scan - chest: image reviewed Assessment and Plan Assessment: Unstable angina patient with a known history of coronary disease and previous stenting to the RCA, obtuse marginal. Cardiac catheterization revealed a totally occluded right coronary artery with a chronic total occlusion within the stented the proximal portion with collateral circulation. Left main was unremarkable. Circumflex artery patent. First obtuse marginal stent widely patent good flow. Noted 95% lesion of the mid LAD. Stent placement on 09/17/2022. The plan is to return at a later date for stenting of the RCA. Pulmonary embolism ruled out by CTA. Prior history of coronary disease Chronic obstructive pulmonary disease and previous tobacco dependence History of pulmonary embolism, anticoagulated with Eliquis Previous history of left-sided pneumothorax, Chronic bullous emphysema Adrenal cortical hypofunction Benign prostatic hyperplasia Plan: The patient was seen and evaluated Chest x-ray, CAT scan, labs and medications reviewed Status post stenting to the LAD, plans for future stenting of the RCA Discharge from the pulmonary standpoint Continue his home pulmonary treatment Keep his appointment as scheduled I have personally seen and examined the patient, performed the documentation and the assessment and plan as written. Number of minutes spent on the visit: 10. This is a joint evaluation that is being done along with the nurse practitioner. The patient underwent successful stenting of the LAD and the patient is going to be brought back to the hospital a few weeks time to undergo stenting of the RCA. The patient is otherwise doing well. As part of further investigation, he underwent a CT angiogram that showed no evidence of any pulmonary embolism. No evidence of pneumonia. There is evidence of bullous emphysema and the patient has limited on Trelegy Ellipta and of his own about treatments [id number].. The patient will be cleared for discharge from the pulmonary standpoint.
== END 2022-09-18 14:29 | disposition home or self-care (01) ==
LOC: EC 23:40 → 6NMEDSUR 09-17 00:39
PROVIDERS: ADMIT Family Medicine; ATTEND Family Medicine
DX: R07.89 Other chest pain (principal); I25.110 Atherosclerotic heart disease of native coronary artery with unstable angina pectoris; I25.82 Chronic total occlusion of coronary artery; E11.9 Type 2 diabetes mellitus without complications; I10 Essential (primary) hypertension; K21.9 Gastro-esophageal reflux disease without esophagitis; E78.5 Hyperlipidemia, unspecified; I25.2 Old myocardial infarction; N40.0 Benign prostatic hyperplasia without lower urinary tract symptoms; E27.40 Unspecified adrenocortical insufficiency; R00.1 Bradycardia, unspecified; J98.11 Atelectasis; F43.10 Post-traumatic stress disorder, unspecified; I34.81 Nonrheumatic mitral (valve) annulus calcification; J43.8 Other emphysema; I70.0 Atherosclerosis of aorta; I37.1 Nonrheumatic pulmonary valve insufficiency; K44.9 Diaphragmatic hernia without obstruction or gangrene; Z95.5 Presence of coronary angioplasty implant and graft; Z79.899 Other long term (current) drug therapy; Z86.73 Personal history of transient ischemic attack (TIA), and cerebral infarction without residual deficits; Z79.84 Long term (current) use of oral hypoglycemic drugs; Z79.01 Long term (current) use of anticoagulants; Z87.891 Personal history of nicotine dependence; Z79.82 Long term (current) use of aspirin; Z79.02 Long term (current) use of antithrombotics/antiplatelets
CPT/HCPCS: 96374; 99285; 36415; 94640 ×2; 94760; 93005; 93306; 92978; 93458; 85379; 80061; 80053; 80048; 83735; 84484; 85025 ×2; 85610 ×2; 85730; 71046; 71275; G0378 ×2; C9600; C1769 ×4; C1760; C1887; C1894 ×2; C1753; C1874 ×2; J2250; J2001; J3010; J1644 ×3; Q9967 ×2

== ENCOUNTER → 2022-10-31 | Outpatient (CLI) | payer MEDICARE ==
[2022-10-31 19:24] LABS: African American GFR (CKD) 103.9 (60.0-200.0); Albumin 3.6 g/dL (3.8-4.9); Albumin/Globulin Ratio 1.81 (1.60-3.17); BUN/Creat Ratio 20.03 Ratio (12.00-20.00); Blood Urea Nitrogen 15.3 mg/dL (9.0-27.0); C Reactive Protein 0.8 mg/dL (0.00-0.80); Calcium 8.8 mg/dL (8.7-10.3); Non-African American GFR(CKD) 89.7 (60.0-200.0); Potassium 4.2 mmol/L (3.5-5.5); T4, Free (Free Thyroxine) 1.34 ng/dL (0.800-1.800); Total Bilirubin 0.4 mg/dL (0.30-1.20); Total Protein 5.6 g/dL (6.2-8.2)
[2022-10-31 20:17] LABS: Basophils # (A) 0.05 X 10*3/uL (0.00-0.10); Basophils % (A) 0.4 %; Eosinophils # (A) 0.03 X 10*3/uL (0.04-0.35); Eosinophils % (A) 0.2 %; HCT 41.6 % (39.6-50.0); HGB 13.1 g/dL (13.0-17.0); Immature Grans, Automated 0.6 %; Lymphocytes # (A) 0.87 X 10*3/uL (0.90-5.00); MCH 26.7 pg (27.0-32.0); MCHC 31.5 g/dL (32.0-37.0); MCV 84.7 fL (80.0-97.0); Mean Platelet Volume 8.6 fL (9.5-12.2); Monocytes # (A) 0.38 X 10*3/uL (0.20-1.00); Monocytes % (A) 3.1 %; NRBC Per 100 WBC 0 /100 WBCS (0.0-0.0); Neutrophils # (A) 10.98 X 10*3/uL (1.80-7.70); Neutrophils % (A) 88.7 %; Platelet Count 313 X 10*3/uL (140-440); RBC 4.91 X 10*6/uL (4.40-5.60); RDW 14.4 % (11.5-14.5); WBC 12.39 X 10*3/uL (4.50-10.00)
[2022-10-31 21:36] LABS: Erythrocyte Sedimentation Rate 24 mm/Hr (0-20)
== END | disposition home or self-care (01) ==
LOC: LABWHC1 11:32
PROVIDERS: ATTEND Family Medicine
DX: I25.119 Atherosclerotic heart disease of native coronary artery with unspecified angina pectoris (principal); G44.201 Tension-type headache, unspecified, intractable; E11.65 Type 2 diabetes mellitus with hyperglycemia; R97.20 Elevated prostate specific antigen [PSA]
CPT/HCPCS: 36415; 80053; 83036; 84153; 84439; 84443; 85025; 85652; 86140

== ENCOUNTER → 2023-01-01 | Outpatient (CLI) | payer MEDICARE | END | disposition home or self-care (01) | LOC: LABWHC1 14:27 | PROVIDERS: ATTEND Family Medicine | DX: Z53.9 Procedure and treatment not carried out, unspecified reason (principal) ==

== ENCOUNTER → 2023-03-06 | Outpatient (CLI) | payer MEDICARE ==
[2023-03-06 16:56] LABS: African American GFR (CKD) >90 (>60 ml/min/1.73 sqM); Blood Urea Nitrogen 12 mg/dL (9-20); Non-African American GFR(CKD) >90 (>60 ml/min/1.73 sqM)
--- NOTE | 2023-03-07 08:08 | CT ---
EXAMINATION TYPE: CT chest w con DATE OF EXAM: 03/06/2023 COMPARISON: 04/23/2022, 09/18/2022 HISTORY: recent pneumothorax. CT DLP: 408.40 mGycm, Automated exposure control for dose reduction was used. CONTRAST: Performed injected with 100 mL of Isovue 300. TECHNIQUE: Axial images were obtained at 5 mm thick sections. Reconstructed images are reviewed on MMIS computer in the coronal plane. FINDINGS: Portion of the thyroid visualized is normal. There is a very large left apical bulla. This is stable from comparison. This can cause the appearanc e of pneumothorax on chest x-ray. Large bulla are present within the right lung. There is an irregular density within the periphery of the mid to lower left lung field measuring 1.3 x 3.0 cm. Series 4 image 46. This is new. Correlate for mass. Differential diagnosis includes atelect asis and pneumonia. There is a 0.9 cm pretracheal lymph node. Additional smaller lymphadenopathy is present within the me diastinum. The Ascending aorta diameter at the level of the main pulmonary artery is 3.7 cm. The zeb n pulmonary artery diameter at the bifurcation is 3.1 cm. There is a small hiatal hernia present. Limited CT sections are obtained through the upper abdomen. Abdomen is essentially unremarkable. IMPRESSIONS: 1. Advanced emphysematous changes with a large left apical bulla. No current pneumothorax evident. 2. Irregular masslike density periphery of the left lung. Additional workup is recommended. Different ial should include neoplasm, pneumonia, atelectasis.
== END | disposition home or self-care (01) ==
LOC: RADCTMAIN 15:47
PROVIDERS: ATTEND Internal Medicine Critical Care Medicine
DX: J93.9 Pneumothorax, unspecified (principal); J43.9 Emphysema, unspecified; R91.8 Other nonspecific abnormal finding of lung field
CPT/HCPCS: 82565; 84520; 71260; 36415; Q9967

== ENCOUNTER 2023-05-17 03:28 | Inpatient (IN) | payer MEDICARE ==
[2023-05-17] MEDS ORDERED: ACETAMINOPHEN TAB 500 MG TAB PO STA (03:49)
[2023-05-17] MEDS ORDERED: SODIUM CHLORIDE 0.9% 1,000 ML IV STA (03:49)
--- NOTE | 2023-05-17 03:51 | ED ---
General Adult HPI - General Chief complaint: Urogenital Stated complaint: Possible UTI Time Seen by Provider: 05/17/23 03:36 Source: patient, EMS Mode of arrival: EMS Limitations: no limitations - History of Present Illness Initial comments: Dictation was produced using [employer] dictation software. please excuse any grammatical, word or spelling errors. 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 He states that her last one was a days he has developed fever and urinary symptoms. He's been admitted to the hospital for pneumonia and UTIs in the past. Denies any chest pain or shortness of breath. No abdominal pain. No nausea. Does report fever and chills and burning in urination. Denies any rash. No neck pain/stiffness or headache. Denies any testicular pain or penile pain The ROS documented in this emergency department record has been reviewed and confirmed by me. Those systems with pertinent positive or negative responses have been documented in the HPI. All other systems are other negative and/or noncontributory. - Related Data Home Medications Medication Instructions Recorded Confirmed Gabapentin 1,200 mg PO HS 04/09/16 09/17/22 traZODone HCL 150 mg PO HS 04/09/16 09/17/22 ALPRAZolam [Xanax] 1 mg PO HS PRN 03/25/20 09/17/22 Albuterol Sulfate [Ventolin HFA] 2 puff INHALATION RT-Q6H PRN 10/25/21 09/17/22 Fluticasone/Umeclidin/Vilanter 1 puff INHALATION RT-DAILY 10/25/21 09/17/22 [Trelegy Ellipta 100-62.5-25] HYDROcodone/APAP 7.5-325MG [[place] 1 tab PO TID PRN 10/25/21 09/17/22 7.5-325] Hydrocortisone [Cortef] 30 mg PO DAILY 04/19/22 09/17/22 methocarbamoL [Robaxin-750] 750 mg PO BID PRN 04/20/22 09/17/22 metFORMIN HCL [Glucophage] 500 mg PO QAM 05/31/22 09/17/22 Gabapentin 600 mg PO DAILY 09/17/22 09/17/22 Pantoprazole Sodium [Protonix] 40 mg PO BID 09/17/22 09/17/22 Previous Rx's Medication Instructions Recorded Aspirin 81 mg PO DAILY #90 tab 09/18/22 Atorvastatin [Lipitor] 80 mg PO HS #90 tab 09/18/22 Losartan [Cozaar] 50 mg PO DAILY #90 tab 09/18/22 Metoprolol Tartrate [Lopressor] 12.5 mg PO DAILY #90 tab 09/18/22 Nitroglycerin Sl Tabs [Nitrostat] 0.4 mg SUBLINGUAL Q5M PRN #100 tab 09/18/22 Ticagrelor [Brilinta] 90 mg PO BID #60 tab 09/18/22 Allergies Allergy/AdvReac Type Severity Reaction Status Date / Time No Known Allergies Allergy Verified 05/17/23 03:43 Review of Systems ROS Statement: Those systems with pertinent positive or pertinent negative responses have been documented in the HPI. ROS Other: All systems not noted in ROS Statement are negative. Past Medical History Past Medical History: COPD, CVA/TIA, Diabetes Mellitus, GERD/Reflux, Hearing Disorder / Deafness, Hyperlipidemia, Myocardial Infarction ([place]), Musculoskeletal Disorder, Osteoarthritis (OA), Pneumonia, Prostate Disorder, Pulmonary Embolus (PE), Respiratory Disorder Additional Past Medical History / Comment(s): PE/RLL pneumonia/acute hypoxic failure. Portal bollous emphysema. low back pain, bilat sciatica; RLS; migraines, TIA , BPH, hearing aids, , diverticulosis. onset diabetes 08/11/19, multiple pneumothorax, O2 @2-4L [place] prn. Adrenal insufficiency Last Myocardial Infarction Date:: 12/30/2019 History of Any Multi-Drug Resistant Organisms: None Reported Past Surgical History: Heart Catheterization With Stent, Hernia Repair, Orthopedic Surgery, Prostate Surgery, Tonsillectomy Additional Past Surgical History / Comment(s): Septoplasty/ESSS, EGD, colonoscopy with benign polyp, R inguinal hernia, umbilical hernia, pain clinic procedures, atilio fundloplication. upper bilat lung lobes removed 05/2021, prostate surgery 3 weeks ago. Past Anesthesia/Blood Transfusion Reactions: No Reported Reaction Additional Past Anesthesia/Blood Transfusion Reaction / Comment(s): no known family hx Date of Last Stent Placement:: Past Psychological History: PTSD Smoking Status: Former smoker Past Alcohol Use History: None Reported Past Drug Use History: None Reported - Past Family History Father History Unknown: Yes Family Medical History: No Reported History, Unable to Obtain Additional Family Medical History / Comment(s): Pt was adopted. Mother History Unknown: Yes Additional Family Medical History / Comment(s): Pt was adopted. Daughter(s) Additional Family Medical History / Comment(s): Children do not have any major medical problems. No history of blood clots. General Exam - General Exam Comments Initial Comments: PHYSICAL EXAM: General Impression: Alert and oriented x3, not in acute distress HEENT: Normocephalic atraumatic, extra-ocular movements intact, pupils equal and reactive to light bilaterally, mucous membranes moist. Cardiovascular: Heart regular rate and rhythm Chest: Able to complete full sentences, no retractions, no tachypnea Abdomen: abdomen soft, non-tender, non-distended, no organomegaly Musculoskeletal: Pulses present and equal in all extremities, no peripheral edema Motor: no focal deficits noted Neurological: CN II-XII grossly intact, no focal motor or sensory deficits noted Skin: Intact with no visualized rashes Psych: Normal affect and mood : No pain to the testicle, no perineal rash Limitations: no limitations Course Vital Signs 05/17/23 03:33 Temperature 100.1 F H Pulse Rate 118 H Respiratory 16 Rate Blood Pressure 119/76 O2 Sat by Pulse 94 L Oximetry EKG Findings - EKG Comments: EKG Findings:: My EKG interpretation: Ventricular rate 116, sinus tachycardia,. 175, QRS 88, QTC 46. No ID prolongation, no QTC prolongation, no ST or T-wave changes noted. Overall, this EKG is unremarkable Procedures - Sepsis Sepsis Focused Exam #1 Time Sepsis Criteria Met: 04:30 Sepsis Focused Exam Date: 05/17/23 Sepsis Focused Exam Time: 04:30 Sepsis Focused Exam Complete: Yes Vital Signs & RN Notes Reviewed: Yes Capillary Refill: < 2 Seconds: Fingers, Toes Peripheral Pulses: Normal: Radial (R), Radial (L), Posterior Tibialis (R), Posterior Tibialis (L), Dorsalis Pedis (R), Dorsalis Pedis (L) Skin Color: Normal for Patient Respiratory Exam: normal lung sounds Cardiovascular Exam: tachycardia Medical Decision Making - Medical Decision Making Was pt. sent in by a medical professional or institution ([facility], RETAIL LEADER, urgent care, hospital, or skilled nursing...) When possible be specific @ -No Did you speak to anyone other than the patient for history (EMS, parent, family, police, friend...)? What history was obtained from this source @ - states the patient had fever at home Did you review nursing and triage notes (agree or disagree)? Why? @ -I reviewed and agree with nursing and triage notes Were old charts reviewed (outside hosp., previous admission, EMS record, old EKG, old radiological studies, urgent care reports/EKG's, skilled nursing records)? Report findings @ -No old charts were reviewed Differential Diagnosis (chest pain, altered mental status, abdominal pain women, abdominal pain men, vaginal bleeding, musculoskeletal, weakness, fever, dyspnea, syncope, headache, dizziness, GI bleed, back pain, seizure, CVA, palpatations, mental health)? @ -Differential Fever: Pneumonia, viral URI, endocarditis, myocarditis, pericarditis, otitis, sinusitis, peritonsillar Abscess, retropharyngeal Abscess, epiglottitis, peritonitis, appendicitis, Aundrea cystitis, diverticulitis, hepatitis, colitis, UTI, PID, TOA, pyelonephritis, prostatitis, epididymitis, meningitis, encephalitis, pulmonary embolism, CVA, thyroid storm, pancreatitis, adrenal crisis, cavernous sinus thrombosis, this is not meant to be an all-inclusive list. EKG interpreted by me (3pts min.). @ -As above X-rays interpreted by me (1pt min.). @ -Atelectasis versus infiltrate to the bilateral inferior lung astudillo CT interpreted by me (1pt min.). @ -None done U/S interpreted by me (1pt. min.). @ -None done What testing was considered but not performed or refused? (CT, X-rays, U/S, labs)? Why? @ -None What meds were considered but not given or refused? Why? @ -None Did you discuss the management of the patient with other professionals (professionals i.e. [facility], RETAIL LEADER, lab, RT, psych nurse, social scientist, acting instructor, teacher, administrative hearing officer, nurse case management)? Give summary @ - discussed with Dr. Wagner for admission Was smoking cessation discussed for >3mins.? @ -No Was critical care preformed (if so, how long)? @ -yes 33 minutes Were there social determinants of health that impacted care today? How? (Homelessness, low income, unemployed, alcoholism, drug addiction, transportation, low edu. Level, literacy, decrease access to med. care, detention, rehab)? @ -No Was there de-escalation of care discussed even if they declined (Discuss DNR or withdrawal of care, Hospice)? DNR status @ -No What co-morbidities impacted this encounter? (DM, HTN, Smoking, COPD, CAD, Cancer, CVA, ARF, Chemo, Hep., AIDS, mental health diagnosis, sleep apnea, morbid obesity)? @ -None Was patient admitted / discharged? Hospital course, mention meds given and route, prescriptions, significant lab abnormalities, going to OR and other pertinent info. @ -2-year-old male presents to the ER for fever and UTI symptoms. Vital signs upon arrival shows temperature 100.1. Heart rate of 118. Rest of vitals within acceptable limits. White count of 18.0. Lactic acidosis 2.6. Urinalysis positive for urinary tract infection. Patient started antibiotics. Pending blood cultures. Clinical presentation consistent with sepsis secondary to UTI. Will be admitted with consultation to infectious disease Undiagnosed new problem with uncertain prognosis? @ -No Drug Therapy requiring intensive monitoring for toxicity (Heparin, Nitro, Insulin, Cardizem)? @ -No Were any procedures done? @ -No Diagnosis/symptom? Acute, or Chronic, or Acute on Chronic? Uncomplicated (without systemic symptoms) or Complicated (systemic symptoms)? @ -1. UTI sepsis Side effects of treatment? @ -No Exacerbation, Progression, or Severe Exacerbation? @ -No Poses a threat to life or bodily function? How? (Chest pain, [place], [place], pneumonia, PE, COPD, DKA, ARF, appy, cholecystitis, CVA, Diverticulitis, Homicidal, Suic idal, threat to staff... and all critical care pts) @ -yes - Lab Data Result diagrams: 05/17/23 03:52 05/17/23 03:52 Lab Results 05/17/23 05/17/23 05/17/23 Range/Units 03:30 03:38 03:52 WBC 18.0 H (3.8-10.6) k/uL RBC 5.05 (4.30-5.90) m/uL Hgb 13.9 (13.0-17.5) gm/dL Hct 41.8 (39.0-53.0) % MCV 82.8 (80.0-100.0) fL MCH 27.5 (25.0-35.0) pg MCHC 33.2 (31.0-37.0) g/dL RDW 14.4 (11.5-15.5) % Plt Count 255 (150-450) k/uL MPV 7.2 Neutrophils % 93 % Lymphocytes % 5 % Monocytes % 1 % Eosinophils % 0 % Basophils % 0 % Neutrophils # 16.8 H (1.3-7.7) k/uL Lymphocytes # 0.9 L (1.0-4.8) k/uL Monocytes # 0.3 (0-1.0) k/uL Eosinophils # 0.1 (0-0.7) k/uL Basophils # 0.0 (0-0.2) k/uL Hypochromasia Slight Sodium (137-145) mmol/L Potassium (3.5-5.1) mmol/L Chloride (98-107) mmol/L Carbon Dioxide (22-30) mmol/L Anion Gap mmol/L BUN (9-20) mg/dL Creatinine (0.66-1.25) mg/dL Est GFR (CKD-EPI)AfAm (>60 ml/min/1.73 sqM) Est GFR (CKD-EPI)NonAf (>60 ml/min/1.73 sqM) Glucose (74-99) mg/dL Plasma Lactic Acid Leon 2.6 H* (0.7-2.0) mmol/L Calcium (8.4-10.2) mg/dL Magnesium (1.6-2.3) mg/dL Total Bilirubin (0.2-1.3) mg/dL AST (17-59) U/L ALT (4-49) U/L Alkaline Phosphatase (38-126) U/L Total Protein (6.3-8.2) g/dL Albumin (3.5-5.0) g/dL Urine Color Yellow Urine Appearance Clear (Clear) Urine pH 7.0 (5.0-8.0) Ur Specific [place] 1.023 (1.001-1.035) Urine Protein Trace H (Negative) Urine Glucose (UA) Negative (Negative) Urine Ketones 1+ H (Negative) Urine Blood Negative (Negative) Urine Nitrite Negative (Negative) Urine Bilirubin Negative (Negative) Urine Urobilinogen <2.0 (<2.0) mg/dL Ur Leukocyte Esterase Large H (Negative) Urine RBC 2 (0-5) /hpf Urine WBC 106 H (0-5) /hpf Ur Squamous Epith Cells <1 (0-4) /hpf Urine Bacteria Rare H (None) /hpf Urine Mucus Rare H (None) /hpf 05/17/23 Range/Units 03:52 WBC (3.8-10.6) k/uL RBC (4.30-5.90) m/uL Hgb (13.0-17.5) gm/dL Hct (39.0-53.0) % MCV (80.0-100.0) fL MCH (25.0-35.0) pg MCHC (31.0-37.0) g/dL RDW (11.5-15.5) % Plt Count (150-450) k/uL MPV Neutrophils % % Lymphocytes % % Monocytes % % Eosinophils % % Basophils % % Neutrophils # (1.3-7.7) k/uL Lymphocytes # (1.0-4.8) k/uL Monocytes # (0-1.0) k/uL Eosinophils # (0-0.7) k/uL Basophils # (0-0.2) k/uL Hypochromasia Sodium 136 L (137-145) mmol/L Potassium 3.8 (3.5-5.1) mmol/L Chloride 104 (98-107) mmol/L Carbon Dioxide 24 (22-30) mmol/L Anion Gap 8 mmol/L BUN 24 H (9-20) mg/dL Creatinine 0.75 (0.66-1.25) mg/dL Est GFR (CKD-EPI)AfAm >90 (>60 ml/min/1.73 sqM) Est GFR (CKD-EPI)NonAf >90 (>60 ml/min/1.73 sqM) Glucose 163 H (74-99) mg/dL Plasma Lactic Acid Leon (0.7-2.0) mmol/L Calcium 9.3 (8.4-10.2) mg/dL Magnesium 1.3 L (1.6-2.3) mg/dL Total Bilirubin 1.1 (0.2-1.3) mg/dL AST 36 (17-59) U/L ALT 23 (4-49) U/L Alkaline Phosphatase 76 (38-126) U/L Total Protein 6.1 L (6.3-8.2) g/dL Albumin 3.4 L (3.5-5.0) g/dL Urine Color Urine Appearance (Clear) Urine pH (5.0-8.0) Ur Specific [place] (1.001-1.035) Urine Protein (Negative) Urine Glucose (UA) (Negative) Urine Ketones (Negative) Urine Blood (Negative) Urine Nitrite (Negative) Urine Bilirubin (Negative) Urine Urobilinogen (<2.0) mg/dL Ur Leukocyte Esterase (Negative) Urine RBC (0-5) /hpf Urine WBC (0-5) /hpf Ur Squamous Epith Cells (0-4) /hpf Urine Bacteria (None) /hpf Urine Mucus (None) /hpf Disposition Clinical Impression: Sepsis secondary to UTI Disposition: ADMITTED IP TO THIS HOSP Condition: Serious Referrals: Dyana Giordano MD [Primary Care Provider] - 1-2 days Decision Time: 04:51
[2023-05-17 04:05] LABS: Basophils % (A) 0 %; Eosinophils # (A) 0.1 k/uL (0-0.7); Eosinophils % (A) 0 %; HCT 41.8 % (39.0-53.0); HGB 13.9 gm/dL (13.0-17.5); Hypochromasia Slight; Lymphocytes # (A) 0.9 k/uL (1.0-4.8); Lymphocytes % (A) 5 %; MCH 27.5 pg (25.0-35.0); MCHC 33.2 g/dL (31.0-37.0); MCV 82.8 fL (80.0-100.0); Mean Platelet Volume 7.2; Monocytes # (A) 0.3 k/uL (0-1.0); Monocytes % (A) 1 %; Neutrophils # (A) 16.8 k/uL (1.3-7.7); Neutrophils % (A) 93 %; Platelet Count 255 k/uL (150-450); RBC 5.05 m/uL (4.30-5.90); RDW 14.4 % (11.5-15.5)
[2023-05-17 04:08] LABS: ALT 23 U/L (4-49); AST 36 U/L (17-59); African American GFR (CKD) >90 (>60 ml/min/1.73 sqM); Albumin 3.4 g/dL (3.5-5.0); Alkaline Phosphatase 76 U/L (38-126); Anion Gap 8 mmol/L; Blood Urea Nitrogen 24 mg/dL (9-20); Calcium 9.3 mg/dL (8.4-10.2); Carbon Dioxide 24 mmol/L (22-30); Chloride 104 mmol/L (98-107); Glucose 163 mg/dL (74-99); Magnesium 1.3 mg/dL (1.6-2.3); Non-African American GFR(CKD) >90 (>60 ml/min/1.73 sqM); Sodium 136 mmol/L (137-145); Total Bilirubin 1.1 mg/dL (0.2-1.3); Total Protein 6.1 g/dL (6.3-8.2)
[2023-05-17 04:13] LABS: Appearance,Urine Clear (Clear); Bacteria,Urine Rare /hpf; Bilirubin,Urine Negative (Negative); Blood,Urine Negative (Negative); Color,Urine Yellow; Glucose,Urine (UA) Negative (Negative); Ketones,Urine 1+ (Negative); Leukocyte Esterase,Urine Large (Negative); Mucus,Urine Rare /hpf; Nitrite,Urine Negative (Negative); Protein,Urine Trace (Negative); RBC,Urine 2 /hpf (0-5); Specific Gravity,Urine 1.023 (1.001-1.035); Squamous Epithelial Cell,Urine <1 /hpf (0-4); Urobilinogen,Urine <2.0 mg/dL (<2.0); WBC,Urine 106 /hpf (0-5)
[2023-05-17 04:17] LABS: Potassium 3.8 mmol/L (3.5-5.1)
[2023-05-17] MEDS ORDERED: SODIUM CHLORIDE 0.9% 2,400 ML IV STA (04:29)
[2023-05-17] MEDS ORDERED: ACETAMINOPHEN TAB 325 MG TAB PO PRN (04:47)
[2023-05-17] MEDS ORDERED: NALOXONE 0.4 MG/ML 1 ML VIAL IV PRN (04:47)
[2023-05-17] MEDS ORDERED: MAGNESIUM OXIDE 400 MG TAB PO STA (04:51)
[2023-05-17] MEDS: PIPERACILLIN-TAZOBACTAM 3.375 GM in SODIUM CHLORIDE 0.9% 100 ML IVPB SCH ×3 (05:53→23:04)
[2023-05-17] MEDS: SODIUM CHLORIDE 0.9% 1,000 ML IV SCH ×3 (05:54→23:38)
[2023-05-17 06:17] LABS: Glucose,Whole Blood 150 mg/dL (70-110)
--- NOTE | 2023-05-17 06:45 | XR ---
EXAMINATION TYPE: XR chest 1V portable DATE OF EXAM: 05/17/2023 HISTORY: Shortness of breath. COMPARISON: 09/17/2022 TECHNIQUE: Single view of the chest is submitted. FINDINGS: Demonstrated are scattered senescent parenchymal change. Basilar increased density may reflect developing pneumonia. Correlate clinically. The heart is stable. Hilar and mediastinal structures are within normal limits. Degenerative changes are seen of the dorsal spine. IMPRESSION: 1. Basilar increased density may reflect developing pneumonia. Correlate clinically.
--- NOTE | 2023-05-17 07:48 | P.HPIM ---
History of Present Illness This is a pleasant 72 years old male with multiple medical problems as below. Presents because of fever and chills and patient thinks he had UTI Patient has been complaining of from dysuria and urgency, axis is pending at the end of urination. He follow-up with urologist Dr. Osuna , last seen him about 2 months ago for regular follow-up. He denies chest pain dyspnea. No new GI or neurological complaints. He denies smoking alcohol or illicit drugs. On admission he had a fever of 100.1. Blood pressure 93/50 Patient has leukocytosis was 18,000, recent CBC, BMP, liver enzymes are unremarkable Urine analysis suspicious of infection EKG showed sinus tachycardia at 116 Chest x-ray: No acute process when I reviewed by myself Review of Systems Review of systems CONSTITUTIONAL: No fever, no malaise, no fatigue. HEENT: No recent visual problems or hearing problems. Denied any sore throat. CARDIOVASCULAR: No orthopnea, PND, no palpitations, no syncope. PULMONARY: No shortness of breath, no cough, no hemoptysis. GASTROINTESTINAL: No diarrhea, no nausea, no vomiting, no abdominal pain. Normoactive bowel sounds. NEUROLOGICAL: No headaches, no weakness, no numbness. HEMATOLOGICAL: Denies any bleeding or petechiae. -GENITOURINARY:as above MUSCULOSKELETAL/RHEUMATOLOGICAL: Denies any joint pain, swelling, or any muscle pain. ENDOCRINE: Denies any polyuria or polydipsia. Past Medical History Past Medical History: COPD, CVA/TIA, Diabetes Mellitus, GERD/Reflux, Hearing Disorder / Deafness, Hyperlipidemia, Myocardial Infarction ([place]), Musculoskeletal Disorder, Osteoarthritis ([place]), Pneumonia, Prostate Disorder, Pulmonary Embolus (PE), Respiratory Disorder Additional Past Medical History / Comment(s): PE/RLL pneumonia/acute hypoxic failure. Portal bollous emphysema. low back pain, bilat sciatica; RLS; migraines, TIA , BPH, hearing aids, , diverticulosis. onset diabetes 08/11/19, multiple pneumothorax, O2 @2-4L [place] prn. Adrenal insufficiency Last Myocardial Infarction Date:: 12/30/2019 History of Any Multi-Drug Resistant Organisms: None Reported Past Surgical History: Heart Catheterization With Stent, Hernia Repair, Orthopedic Surgery, Prostate Surgery, Tonsillectomy Additional Past Surgical History / Comment(s): Septoplasty/ESSS, EGD, colonoscopy with benign polyp, R inguinal hernia, umbilical hernia, pain clinic procedures, atilio fundloplication. upper bilat lung lobes removed 05/2021, prostate surgery 3 weeks ago. Past Anesthesia/Blood Transfusion Reactions: No Reported Reaction Additional Past Anesthesia/Blood Transfusion Reaction / Comment(s): no known family hx Date of Last Stent Placement:: \2019 Past Psychological History: PTSD Additional Psychological History / Comment(s): Pt resides with his spouse. He uses no assistive device. He drives. He has a nebulizer and home oxygen as needed. Smoking Status: Former smoker Past Alcohol Use History: None Reported Additional Past Alcohol Use History / Comment(s): Pt started smoking in 1967, 1-1-1/2 packs per day, quit in 1999 Past Drug Use History: None Reported - Past Family History Father History Unknown: Yes Family Medical History: No Reported History, Unable to Obtain Additional Family Medical History / Comment(s): Pt was adopted. Mother History Unknown: Yes Additional Family Medical History / Comment(s): Pt was adopted. Daughter(s) Additional Family Medical History / Comment(s): Children do not have any major medical problems. No history of blood clots. Medications and Allergies Home Medications Medication Instructions Recorded Confirmed Type Gabapentin 1,200 mg PO HS 04/09/16 09/17/22 History traZODone HCL 150 mg PO HS 04/09/16 09/17/22 History ALPRAZolam [Xanax] 1 mg PO HS PRN 03/25/20 09/17/22 History Albuterol Sulfate [Ventolin HFA] 2 puff INHALATION RT-Q6H PRN 10/25/21 09/17/22 History Fluticasone/Umeclidin/Vilanter 1 puff INHALATION RT-DAILY 10/25/21 09/17/22 History [Trelegy Ellipta 100-62.5-25] HYDROcodone/APAP 7.5-325MG [[place] 1 tab PO TID PRN 10/25/21 09/17/22 History 7.5-325] Hydrocortisone [Cortef] 30 mg PO DAILY 04/19/22 09/17/22 History methocarbamoL [Robaxin-750] 750 mg PO BID PRN 04/20/22 09/17/22 History metFORMIN HCL [Glucophage] 500 mg PO QAM 05/31/22 09/17/22 History Gabapentin 600 mg PO DAILY 09/17/22 09/17/22 History Pantoprazole Sodium [Protonix] 40 mg PO BID 09/17/22 09/17/22 History Aspirin 81 mg PO DAILY #90 tab 09/18/22 Rx Atorvastatin [Lipitor] 80 mg PO HS #90 tab 09/18/22 Rx Losartan [Cozaar] 50 mg PO DAILY #90 tab 09/18/22 Rx Metoprolol Tartrate [Lopressor] 12.5 mg PO DAILY #90 tab 09/18/22 Rx Nitroglycerin Sl Tabs [Nitrostat] 0.4 mg SUBLINGUAL Q5M PRN #100 tab 09/18/22 Rx Ticagrelor [Brilinta] 90 mg PO BID #60 tab 09/18/22 Rx Apixaban [Eliquis] 5 mg PO DAILY 05/17/23 History Allergies Allergy/AdvReac Type Severity Reaction Status Date / Time No Known Allergies Allergy Verified 05/17/23 03:43 Physical Exam Vitals: Vital Signs Temp Pulse Pulse Resp BP BP Pulse Ox 05/17/23 05:40 98.8 F 99 20 93/51 93 L 05/17/23 05:25 99.3 F 98 16 96/64 94 L 05/17/23 03:33 100.1 F H 118 H 16 119/76 94 L Intake and Output 05/16/23 05/16/23 05/17/23 14:59 22:59 06:59 Other: Weight 83.915 kg GENERAL: The patient is alert and oriented x3, not in any acute distress. Well developed, well nourished. HEENT: Pupils are round and equally reacting to light. EOMI. No scleral icterus. No conjunctival pallor. Normocephalic, atraumatic. No pharyngeal erythema. No thyromegaly. CARDIOVASCULAR: S1 and S2 present. No murmurs, rubs, or gallops. PULMONARY: Chest is clear to auscultation, no wheezing , no crackles. ABDOMEN: Soft, nontender, nondistended, normoactive bowel sounds. No palpable organomegaly. MUSCULOSKELETAL: No joint swelling or deformity. EXTREMITIES: No cyanosis, clubbing, or pedal edema. NEUROLOGICAL: Gross neurological examination did not reveal any focal deficits. SKIN: No rashes. no petechiae. Results CBC & Chem 7: 05/17/23 03:52 05/17/23 03:52 Labs: Abnormal Lab Results - Last 24 Hours (Table) 05/17/23 05/17/23 05/17/23 Range/Units 03:30 03:38 03:52 WBC 18.0 H (3.8-10.6) k/uL Neutrophils # 16.8 H (1.3-7.7) k/uL Lymphocytes # 0.9 L (1.0-4.8) k/uL Sodium (137-145) mmol/L BUN (9-20) mg/dL Glucose (74-99) mg/dL POC Glucose (mg/dL) (70-110) mg/dL Plasma Lactic Acid Leon 2.6 H* (0.7-2.0) mmol/L Magnesium (1.6-2.3) mg/dL Total Protein (6.3-8.2) g/dL Albumin (3.5-5.0) g/dL Urine Protein Trace H (Negative) Urine Ketones 1+ H (Negative) Ur Leukocyte Esterase Large H (Negative) Urine WBC 106 H (0-5) /hpf Urine Bacteria Rare H (None) /hpf Urine Mucus Rare H (None) /hpf 05/17/23 05/17/23 Range/Units 03:52 06:15 WBC (3.8-10.6) k/uL Neutrophils # (1.3-7.7) k/uL Lymphocytes # (1.0-4.8) k/uL Sodium 136 L (137-145) mmol/L BUN 24 H (9-20) mg/dL Glucose 163 H (74-99) mg/dL POC Glucose (mg/dL) 150 H (70-110) mg/dL Plasma Lactic Acid Leon (0.7-2.0) mmol/L Magnesium 1.3 L (1.6-2.3) mg/dL Total Protein 6.1 L (6.3-8.2) g/dL Albumin 3.4 L (3.5-5.0) g/dL Urine Protein (Negative) Urine Ketones (Negative) Ur Leukocyte Esterase (Negative) Urine WBC (0-5) /hpf Urine Bacteria (None) /hpf Urine Mucus (None) /hpf Thrombosis Risk Factor Assmnt - Choose All That Apply Any of the Below Risk Factors Present?: Yes Each Factor Represents 1 point: Abnormal pulmonary function (COPD), Medical pt on bed rest, Sepsis (< 1month) Each Risk Factor Represents 2 Points: Age 61-74 years Each Risk Factor Represents 3 Points: History of DVT/PE Thrombosis Risk Factor Assessment Total Risk Factor Score: 8 Thrombosis Risk Factor Assessment Level: High Risk Assessment and Plan Assessment: Acute coronary tract infection Sepsis with fever and leukocytosis Hypertension, currently patient hypotensive COPD, With no acute exacerbation history of CVA/TIA Hearing difficulty History of pulmonary embolism on anticoagulation at home Diabetes mellitus Hyperlipidemia History of osteoarthritis Plan: continue with ceftriaxone Follow-up urine culture Hold losartan and continue with aggressive hydration ID team consulted Labs and medication were reviewed.. Continue same treatment. Continue with symptomatic treatment. Resume home medication. Monitor lytes and vitals. DVT and GI prophylaxis. Further recommendations depends on the clinical course of the patient DVT prophylaxis: eliquis GI Prophylaxis: Pepcid PT/OT: Pending Prognosis is guarded
[2023-05-17] MEDS ORDERED: SODIUM CHLORIDE 0.9% 1,000 ML IV ONE (10:20)
[2023-05-17] MEDS: MIDODRINE 5 MG TAB PO SCH ×2 (10:36→16:43)
[2023-05-17 11:14] LABS: Glucose,Whole Blood 168 mg/dL (70-110)
[2023-05-17] MEDS ORDERED: SYMBICORT 80-4.5 MCG INHALER INHALATION PRN ×2 (11:45→15:46)
[2023-05-17] MEDS ORDERED: NITROGLYCERIN SL TABS 0.4 MG TAB SUBLINGUAL PRN (11:45)
[2023-05-17] MEDS ORDERED: APIXABAN 5 MG TAB PO SCH (12:30)
[2023-05-17] MEDS: HYDROCORTISONE 10 MG TAB PO SCH (12:33)
[2023-05-17] MEDS: APIXABAN 5 MG TAB PO SCH ×2 (12:33→19:58)
--- NOTE | 2023-05-17 15:01 | US ---
EXAMINATION TYPE: US kidneys/renal and bladder DATE OF EXAM: 05/17/2023 COMPARISON: NONE CLINICAL INDICATION: Male, 72 years old with history of uti and bacteremia; UTI EXAM MEASUREMENTS: Right Kidney: 12.1x6.4x5.2 cm Left Kidney: 10.6x5.8x5.4 cm Right Kidney: No hydronephrosis or masses seen, calcified vessels exhibit dirty posterior shadowing f rom renal sinus Left Kidney: No hydronephrosis or masses seen, junctional parenchymal defects Bladder: not very distended, pt. states need to use bathroom after scan Bilateral Jets seen: Not visualized due to poor distension and artifact from adjacent bowel movemen t There is no evidence for hydronephrosis at this point in time. No nephrolithiasis is seen. No gladys s are identified. The urinary bladder is anechoic. IMPRESSION: 1. Probable remote insults of the left kidney. Otherwise unremarkable study.
[2023-05-17] MEDS ORDERED: HYDROcodone/APAP 5-325MG 1 EACH TAB PO STA (15:06)
[2023-05-17] MEDS ORDERED: HYDROcodone/APAP 7.5-325MG 1 EACH TAB PO PRN ×2 (15:46→16:52)
[2023-05-17 16:17] LABS: Glucose,Whole Blood 221 mg/dL (70-110)
[2023-05-17] MEDS ORDERED: PANTOPRAZOLE 40 MG TABLET PO SCH (17:30)
[2023-05-17 19:50] LABS: Glucose,Whole Blood 170 mg/dL (70-110)
[2023-05-17] MEDS: metFORMIN 500 MG TAB PO SCH (19:58)
[2023-05-17] MEDS: GABAPENTIN 400 MG CAP PO SCH (19:58)
[2023-05-17] MEDS: ATORVASTATIN 40 MG TAB PO SCH (19:58)
[2023-05-17] MEDS: traZODone HCL 100 MG TAB PO PRN (20:54)
[2023-05-17] MEDS: ALPRAZolam 1 MG TAB PO PRN (20:54)
[2023-05-17] MEDS ORDERED: ALPRAZolam 1 MG TAB PO SCH (21:00)
[2023-05-17] MEDS ORDERED: GABAPENTIN 400 MG CAP PO SCH (21:00)
[2023-05-17] MEDS ORDERED: METOPROLOL TARTRATE 25 MG TAB PO SCH (21:00)
--- NOTE | 2023-05-17 22:27 | P.CONS ---
History of Present Illness - Reason for Consult Consult date: 05/17/23 UTI, sepsis Requesting physician: Que Hernández - Chief Complaint Chills and dysuria x few days - History of Present Illness Patient is a 72-year-old male with a past medical history significant for diabetes mellitus hypertension hyperlipidemia history of prostate disorder pneumonia and PE presenting to the hospital for evaluation of chills and he has complaining of dysuria and urgency symptom has been going on for about a day before presentation to the hospital has been complaining of more significant urination unable to empty his bladder completely with some burning some suprapubic discomfort more of a dull aching pain with 5-10 no radiation patient denies any flank pain did have some nausea but no vomiting patient denies having any chest pain complaining of some shortness of breath he also have a cough moderate intensity with more sputum production however he is unable to cough it up with the symptoms the patient was evaluated on presentation to the hospital patient did have a low-grade fever 100.1 F patient was tachycardic however not hypotensive mildly hypoxic requiring supplemental oxygen vital of 18,000 with a left shift creatinine was normal lactic acid was elevated liver enzymes are normal patient did have a positive UA cultures are pending patient did have a chest x-ray basilar increased density midflight developing pneumonia patient was started on Zosyn has been admitted to hospital infectious disease was consulted for further management of antibiotic therapy Review of Systems Positive point and negatives has been mentioned in the HPI, complete review of systems was performed and all other systems are negative Past Medical History Past Medical History: COPD, CVA/TIA, Diabetes Mellitus, GERD/Reflux, Hearing Disorder / Deafness, Hyperlipidemia, Myocardial Infarction ([place]), Musculoskeletal Disorder, Osteoarthritis (OA), Pneumonia, Prostate Disorder, Pulmonary Embolus (PE), Respiratory Disorder Additional Past Medical History / Comment(s): PE/RLL pneumonia/acute hypoxic failure. Portal bollous emphysema. low back pain, bilat sciatica; RLS; migraines, TIA , BPH, hearing aids, , diverticulosis. onset diabetes 08/11/19, multiple pneumothorax, O2 @2-4L [place] prn. Adrenal insufficiency Last Myocardial Infarction Date:: 12/30/2019 History of Any Multi-Drug Resistant Organisms: None Reported Past Surgical History: Heart Catheterization With Stent, Hernia Repair, Orthopedic Surgery, Prostate Surgery, Tonsillectomy Additional Past Surgical History / Comment(s): Septoplasty/ESSS, EGD, colonoscopy with benign polyp, R inguinal hernia, umbilical hernia, pain clinic procedures, atilio fundloplication. upper bilat lung lobes removed 05/2021, prostate surgery 3 weeks ago. Past Anesthesia/Blood Transfusion Reactions: No Reported Reaction Additional Past Anesthesia/Blood Transfusion Reaction / Comm: no known family hx Date of Last Stent Placement:: Past Psychological History: PTSD Additional Psychological History / Comment(s): Pt resides with his spouse. He uses no assistive device. He drives. He has a nebulizer and home oxygen as needed. Smoking Status: Former smoker Past Alcohol Use History: None Reported Additional Past Alcohol Use History / Comment(s): Pt started smoking in 1967, 1-1-1/2 packs per day, quit in 1999 Past Drug Use History: None Reported - Past Family History Father History Unknown: Yes Family Medical History: No Reported History, Unable to Obtain Additional Family Medical History / Comment(s): Pt was adopted. Mother History Unknown: Yes Additional Family Medical History / Comment(s): Pt was adopted. Daughter(s) Additional Family Medical History / Comment(s): Children do not have any major medical problems. No history of blood clots. Medications and Allergies Home Medications Medication Instructions Recorded Confirmed Type Gabapentin 1,200 mg PO HS 04/09/16 05/17/23 History ALPRAZolam [Xanax] 1 mg PO HS 03/25/20 05/17/23 History Fluticasone/Umeclidin/Vilanter 1 puff INHALATION RT-DAILY 10/25/21 05/17/23 History [Trelegy Ellipta 100-62.5-25] HYDROcodone/APAP 7.5-325MG [[place] 1 tab PO TID PRN 10/25/21 05/17/23 History 7.5-325] Hydrocortisone [Cortef] 30 mg PO DAILY 04/19/22 05/17/23 History Gabapentin 600 mg PO DAILY 09/17/22 05/17/23 History Pantoprazole Sodium [Protonix] 40 mg PO BID 09/17/22 05/17/23 History Losartan [Cozaar] 50 mg PO DAILY #90 tab 09/18/22 05/17/23 Rx Nitroglycerin Sl Tabs [Nitrostat] 0.4 mg SUBLINGUAL Q5M PRN #100 tab 09/18/22 05/17/23 Rx Apixaban [Eliquis] 5 mg PO DAILY 05/17/23 05/17/23 History Atorvastatin [Lipitor] 40 mg PO HS 05/17/23 05/17/23 History Budesonide/Formoterol Fumarate 2 puff INHALATION RT-BID PRN 05/17/23 05/17/23 History [Symbicort 80-4.5 Mcg Inhaler] Butalb/APAP/Caff 50-325-40Mg 1 tab PO Q4H PRN 05/17/23 05/17/23 History [Fioricet 50-325-40] Clopidogrel Bisulfate [Clopidogrel] 75 mg PO DAILY 05/17/23 05/17/23 History Empagliflozin [Jardiance] 10 mg PO DAILY 05/17/23 05/17/23 History Ezetimibe [Zetia] 10 mg PO DAILY 05/17/23 05/17/23 History Fluticasone Propion/Salmeterol 1 puff INHALATION RT-BID PRN 05/17/23 05/17/23 History [Wixela 250-50 Inhub] Metoprolol Tartrate [Lopressor] 25 mg PO BID 05/17/23 05/17/23 History metFORMIN HCL 1,000 mg PO BID 05/17/23 05/17/23 History rOPINIRole HCL [Requip] 0.5 mg PO BID 05/17/23 05/17/23 History traZODone HCL [Desyrel] 200 mg PO HS 05/17/23 05/17/23 History Allergies Allergy/AdvReac Type Severity Reaction Status Date / Time No Known Allergies Allergy Verified 05/17/23 08:02 Physical Exam Vitals: Vital Signs Temp Pulse Pulse Resp BP BP Pulse Ox 05/17/23 10:19 97.9 F 82/54 05/17/23 09:58 81/52 05/17/23 08:28 98.4 F 88 20 85/56 91 L 05/17/23 05:40 98.8 F 99 20 93/51 93 L 05/17/23 05:25 99.3 F 98 16 96/64 94 L 05/17/23 03:33 100.1 F H 118 H 16 119/76 94 L Intake and Output 05/16/23 05/17/23 05/17/23 22:59 06:59 14:59 Other: Voiding Method Toilet Urinal Weight 83.915 kg GENERAL DESCRIPTION: Elderly male lying in bed, no distress. No tachypnea or accessory muscle of respiration use. HEENT: Shows Pallor , no scleral icterus. Oral mucous membrane is dry. No pharyngeal erythema or thrush NECK: Trachea central, no thyromegaly. LUNGS: Unlabored breathing. Decreased breath sound at the base HEART: S1, S2, regular rate and rhythm. No loud murmur ABDOMEN: Soft, no tenderness , guarding or rigidity, no organomegaly EXTREMITIES: No edema of feet. SKIN: No rash, no masses palpable. NEUROLOGICAL: The patient is awake, alert, oriented x3, mood and affect normal. Results CBC & Chem 7: 05/21/23 09:05 05/21/23 09:05 Labs: Abnormal Lab Results - Last 24 Hours (Table) 05/17/23 05/17/23 05/17/23 Range/Units 03:30 03:38 03:52 WBC 18.0 H (3.8-10.6) k/uL Neutrophils # 16.8 H (1.3-7.7) k/uL Lymphocytes # 0.9 L (1.0-4.8) k/uL Sodium (137-145) mmol/L BUN (9-20) mg/dL Glucose (74-99) mg/dL POC Glucose (mg/dL) (70-110) mg/dL Plasma Lactic Acid Leon 2.6 H* (0.7-2.0) mmol/L Magnesium (1.6-2.3) mg/dL Total Protein (6.3-8.2) g/dL Albumin (3.5-5.0) g/dL Urine Protein Trace H (Negative) Urine Ketones 1+ H (Negative) Ur Leukocyte Esterase Large H (Negative) Urine WBC 106 H (0-5) /hpf Urine Bacteria Rare H (None) /hpf Urine Mucus Rare H (None) /hpf 05/17/23 05/17/23 05/17/23 Range/Units 03:52 06:15 11:12 WBC (3.8-10.6) k/uL Neutrophils # (1.3-7.7) k/uL Lymphocytes # (1.0-4.8) k/uL Sodium 136 L (137-145) mmol/L BUN 24 H (9-20) mg/dL Glucose 163 H (74-99) mg/dL POC Glucose (mg/dL) 150 H 168 H (70-110) mg/dL Plasma Lactic Acid Leon (0.7-2.0) mmol/L Magnesium 1.3 L (1.6-2.3) mg/dL Total Protein 6.1 L (6.3-8.2) g/dL Albumin 3.4 L (3.5-5.0) g/dL Urine Protein (Negative) Urine Ketones (Negative) Ur Leukocyte Esterase (Negative) Urine WBC (0-5) /hpf Urine Bacteria (None) /hpf Urine Mucus (None) /hpf Assessment and Plan (1) Sepsis secondary to UTI Current Visit: Yes Status: Acute Code(s): A41.9 - SEPSIS, UNSPECIFIED ORGANISM; N39.0 - URINARY TRACT INFECTION, SITE NOT SPECIFIED SNOMED Code(s): 437099855 Plan: 1patient presented to the hospital with sepsis in this patient who did have a fever tachycardia elevated white count patient did have predominantly urinary symptoms source is likely complicated UTI patient did have a history of possible urinary outflow obstruction from prostate enlargement, patient also have some respiratory symptoms with evidence of basilar infiltrate underlying pneumonia less likely but not entirely excluded 2-we will obtain ultrasound of the bladder and kidney admission evidence of any hydronephrosis, nursing staff to check postvoid residual if elevated may need urinary catheter 3-we will check a CRP procalcitonin 4-we will continue patient on Zosyn while waiting for the work-up to be completed Daughter at the bedside who is a RN all questions and concerns were answered We will follow on clinical condition and cultures to further adjust medication if needed Thank you for this consultation we will follow the patient along with you Dictation was produced using [employer] dictation software. please excuse any grammatical, word or spelling errors. Time with Patient: Greater than 30
[2023-05-17] MEDS: ACETAMINOPHEN TAB 325 MG TAB PO PRN (23:06)
[2023-05-18] MEDS: ACETAMINOPHEN TAB 325 MG TAB PO PRN (04:08)
[2023-05-18] MEDS ORDERED: IBUPROFEN 400 MG TAB PO STA (04:39)
[2023-05-18] MEDS ORDERED: VANCOMYCIN IV PER PHARMACY 1 EACH MISC MISCELLANE PRN (04:41)
[2023-05-18] MEDS: MEROPENEM 1 GM in SODIUM CHLORIDE 0.9% 100 ML IVPB SCH ×2 (05:03→13:12)
[2023-05-18] MEDS: SODIUM CHLORIDE 0.9% 1,000 ML IV SCH ×3 (05:33→20:49)
[2023-05-18 05:54] LABS: Glucose,Whole Blood 115 mg/dL (70-110)
[2023-05-18] MEDS: PANTOPRAZOLE 40 MG TABLET PO SCH ×3 (05:55→16:26)
[2023-05-18] MEDS ORDERED: VANCOMYCIN 1,500 MG in SODIUM CHLORIDE 0.9% 500 ML 500 ML IVPB ONE (06:00)
[2023-05-18] MEDS ORDERED: SYMBICORT 80-4.5 MCG INHALER INHALATION SCH (08:00)
[2023-05-18] MEDS ORDERED: IPRATROPIUM 0.5 MG/2.5 ML NEBU INHALATION SCH (08:00)
[2023-05-18 08:02] LABS: Basophils % (A) 0 %; Eosinophils # (A) 0.1 k/uL (0-0.7); Eosinophils % (A) 0 %; HCT 35.5 % (39.0-53.0); HGB 11.4 gm/dL (13.0-17.5); Hypochromasia Moderate; Lymphocytes # (A) 1.2 k/uL (1.0-4.8); Lymphocytes % (A) 7 %; MCHC 32.1 g/dL (31.0-37.0); MCV 84.3 fL (80.0-100.0); Monocytes # (A) 0.6 k/uL (0-1.0); Monocytes % (A) 3 %; Neutrophils # (A) 15.6 k/uL (1.3-7.7); Neutrophils % (A) 89 %; Platelet Count 169 k/uL (150-450); RBC 4.21 m/uL (4.30-5.90); RDW 14.6 % (11.5-15.5); WBC 17.5 k/uL (3.8-10.6)
[2023-05-18 08:15] LABS: ALT 16 U/L (4-49); AST 15 U/L (17-59); African American GFR (CKD) >90 (>60 ml/min/1.73 sqM); Albumin 2.1 g/dL (3.5-5.0); Alkaline Phosphatase 79 U/L (38-126); Anion Gap 2 mmol/L; Blood Urea Nitrogen 22 mg/dL (9-20); Carbon Dioxide 26 mmol/L (22-30); Chloride 112 mmol/L (98-107); Glucose 111 mg/dL (74-99); Non-African American GFR(CKD) 87 (>60 ml/min/1.73 sqM); Potassium 3.5 mmol/L (3.5-5.1); Sodium 140 mmol/L (137-145); Total Bilirubin 0.4 mg/dL (0.2-1.3); Total Protein 4.1 g/dL (6.3-8.2)
[2023-05-18] MEDS ORDERED: IPRATROPIUM-ALBUTEROL 3 ML NEB INHALATION PRN (08:48)
[2023-05-18 08:58] LABS: C Reactive Protein 21.6 mg/dL (<1.0)
[2023-05-18] MEDS ORDERED: GABAPENTIN 300 MG CAP PO SCH (09:00)
[2023-05-18] MEDS ORDERED: DAPAGLIFLOZIN PROPANEDIOL 5 MG TABLET PO SCH (09:00)
[2023-05-18] MEDS ORDERED: LOSARTAN 50 MG TAB PO SCH (09:00)
[2023-05-18] MEDS: metFORMIN 500 MG TAB PO SCH (09:55)
[2023-05-18] MEDS: GABAPENTIN 300 MG CAP PO SCH (09:55)
[2023-05-18] MEDS: CLOPIDOGREL 75 MG TAB PO SCH (09:55)
[2023-05-18] MEDS: EZETIMIBE 10 MG TAB PO SCH (09:55)
[2023-05-18] MEDS: APIXABAN 5 MG TAB PO SCH ×2 (09:56→20:23)
[2023-05-18] MEDS: HYDROCORTISONE 10 MG TAB PO SCH (09:59)
--- NOTE | 2023-05-18 11:22 | P.CNPUL ---
History of Present Illness Consult date: 05/18/23 Requesting physician: Mak E Sheet Reason for consult: COPD, other (UTI/sepsis) Chief complaint: difficulty urinating and burning sensation on urination. fever/ chills History of present illness: this is a 72-year-old white male with history of multiple medical problems including COPD, bullous emphysema, recurrent pneumothoraces in the past, history of pulmonary embolism, normally follows up with Dr. Rascon.patient came into the hospital yesterday with mostly one-day history of difficulty urinating, burning sensation on urination, suprapubic discomfort, but no flank pain, no nausea, no vomiting, patient was having intermittent episodes of chills and low- grade fever with a temp of 100.1. This was noted upon his initial presentation to the ER. Patient was also noted to be tachycardic, slightly hypoxic requiring supplemental O2, he had leukocytosis with left shift, and he had normal lactic acid, normal liver enzymes, urine cultures are pending, patient was admitted with the impression of urinary tract infection and sepsis. Patient did not require any pressors, he was given IV fluids, and he was also placed on antibiotics empirically for urinary tract infection/sepsis. Considering his pulmonary history, this consult was initiated. Patient had no cough, no wheezing, no shortness of breath, and no chest pain.chest x-ray on this admission showed mostly by basilaratelectasis, doubt pneumonia.although pneumonia is not entirely ruled out but clinically felt to be less likely. Review of Systems CONSTITUTIONAL: as noted in HPI HEENT: No recent visual problems or hearing problems. Denied any sore throat. CARDIOVASCULAR: negative. PULMONARY: No shortness of breath, no cough, no hemoptysis. GASTROINTESTINAL: negative. NEUROLOGICAL: No headaches, no weakness, no numbness. HEMATOLOGICAL: Denies any bleeding or petechiae. -GENITOURINARY:as noted in HPI MUSCULOSKELETAL/RHEUMATOLOGICAL: negative. ENDOCRINE: Denies any polyuria or polydipsia. Past Medical History Past Medical History: COPD, CVA/TIA, Diabetes Mellitus, GERD/Reflux, Hearing Disorder / Deafness, Hyperlipidemia, Myocardial Infarction ([place]), Musculoskeletal Disorder, Osteoarthritis (OA), Pneumonia, Prostate Disorder, Pulmonary Embolus (PE), Respiratory Disorder Additional Past Medical History / Comment(s): PE/RLL pneumonia/acute hypoxic failure. Portal bollous emphysema. low back pain, bilat sciatica; RLS; migraines, TIA , BPH, hearing aids, , diverticulosis. onset diabetes 08/11/19, multiple pneumothorax, O2 @2-4L [place] prn. Adrenal insufficiency Last Myocardial Infarction Date:: 12/30/2019 History of Any Multi-Drug Resistant Organisms: None Reported Past Surgical History: Heart Catheterization With Stent, Hernia Repair, Orthopedic Surgery, Prostate Surgery, Tonsillectomy Additional Past Surgical History / Comment(s): Septoplasty/ESSS, EGD, colonoscopy with benign polyp, R inguinal hernia, umbilical hernia, pain clinic procedures, atilio fundloplication. upper bilat lung lobes removed 05/2021, prostate surgery 3 weeks ago. Past Anesthesia/Blood Transfusion Reactions: No Reported Reaction Additional Past Anesthesia/Blood Transfusion Reaction / Comment(s): no known family hx Date of Last Stent Placement:: Past Psychological History: PTSD Additional Psychological History / Comment(s): Pt resides with his spouse. He uses no assistive device. He drives. He has a nebulizer and home oxygen as needed. Smoking Status: Former smoker Past Alcohol Use History: None Reported Additional Past Alcohol Use History / Comment(s): Pt started smoking in 1967, 1-1-1/2 packs per day, quit in 1999 Past Drug Use History: None Reported - Past Family History Father History Unknown: Yes Family Medical History: No Reported History, Unable to Obtain Additional Family Medical History / Comment(s): Pt was adopted. Mother History Unknown: Yes Additional Family Medical History / Comment(s): Pt was adopted. Daughter(s) Additional Family Medical History / Comment(s): Children do not have any major medical problems. No history of blood clots. Medications and Allergies Home Medications Medication Instructions Recorded Confirmed Type Gabapentin 1,200 mg PO HS 04/09/16 05/17/23 History ALPRAZolam [Xanax] 1 mg PO HS 03/25/20 05/17/23 History Fluticasone/Umeclidin/Vilanter 1 puff INHALATION RT-DAILY 10/25/21 05/17/23 History [Trelegy Ellipta 100-62.5-25] HYDROcodone/APAP 7.5-325MG [[place] 1 tab PO TID PRN 10/25/21 05/17/23 History 7.5-325] Hydrocortisone [Cortef] 30 mg PO DAILY 04/19/22 05/17/23 History Gabapentin 600 mg PO DAILY 09/17/22 05/17/23 History Pantoprazole Sodium [Protonix] 40 mg PO BID 09/17/22 05/17/23 History Losartan [Cozaar] 50 mg PO DAILY #90 tab 09/18/22 05/17/23 Rx Nitroglycerin Sl Tabs [Nitrostat] 0.4 mg SUBLINGUAL Q5M PRN #100 tab 09/18/22 05/17/23 Rx Apixaban [Eliquis] 5 mg PO DAILY 05/17/23 05/17/23 History Atorvastatin [Lipitor] 40 mg PO HS 05/17/23 05/17/23 History Budesonide/Formoterol Fumarate 2 puff INHALATION RT-BID PRN 05/17/23 05/17/23 History [Symbicort 80-4.5 Mcg Inhaler] Butalb/APAP/Caff 50-325-40Mg 1 tab PO Q4H PRN 05/17/23 05/17/23 History [Fioricet 50-325-40] Clopidogrel Bisulfate [Clopidogrel] 75 mg PO DAILY 05/17/23 05/17/23 History Empagliflozin [Jardiance] 10 mg PO DAILY 05/17/23 05/17/23 History Ezetimibe [Zetia] 10 mg PO DAILY 05/17/23 05/17/23 History Fluticasone Propion/Salmeterol 1 puff INHALATION RT-BID PRN 05/17/23 05/17/23 History [Wixela 250-50 Inhub] Metoprolol Tartrate [Lopressor] 25 mg PO BID 05/17/23 05/17/23 History metFORMIN HCL 1,000 mg PO BID 05/17/23 05/17/23 History rOPINIRole HCL [Requip] 0.5 mg PO BID 05/17/23 05/17/23 History traZODone HCL [Desyrel] 200 mg PO HS 05/17/23 05/17/23 History Allergies Allergy/AdvReac Type Severity Reaction Status Date / Time No Known Allergies Allergy Verified 05/17/23 08:02 Physical Exam Vitals: Vital Signs Temp Pulse Resp BP Pulse Ox 05/18/23 08:00 98.1 F 76 16 98/62 91 L 05/18/23 06:03 98.8 F 05/18/23 04:07 101.7 F H 05/18/23 03:15 101 F H 97 22 103/63 91 L 05/18/23 00:11 100.4 F H 05/17/23 23:00 100.2 F H 91 20 138/81 90 L 05/17/23 19:37 98.1 F 78 18 100/66 100 05/17/23 16:39 99.0 F 70 20 107/65 95 05/17/23 15:07 85 20 100/63 94 L 05/17/23 14:23 90 05/17/23 12:13 99.4 F 104/74 05/17/23 11:53 122/77 05/17/23 11:44 127/67 05/17/23 11:36 99.0 F 90 22 123/80 97 05/17/23 11:11 98.7 F 92 24 100/63 93 L 05/17/23 11:08 24 87 L Intake and Output 05/17/23 05/18/23 05/18/23 22:59 06:59 14:59 Intake Total 180 Output Total 200 600 Balance -20 -600 Intake: Oral 180 Output: Urine 200 600 Other: Voiding Method Toilet Toilet Urinal Urinal Physical Exam: Revealed 72-year-old white male in no distress.on room air, O2 saturations 91%. Head: Atraumatic, normocephalic. HEENT:[Neck is supple.] [No neck masses.] [No thyromegaly.] [No JVD.] Chest: [diminished breath sound bilaterally no rhonchi or wheezes Cardiac Exam: [Normal S1 and S2, no S3 gallop, no murmur.] Abdomen: [Soft, nontender, no megaly, no rebound, no guarding, normal bowel sounds.] Extremities: [No clubbing, no edema, no cyanosis.] Neurological Exam: [No focal neurologic deficit.]alert oriented 3. Psychiatric: Normal mood, affect and angela mental status examination. skin: No rashes Results - Laboratory Findings CBC and BMP: 05/18/23 07:25 05/18/23 07:25 Abnormal lab findings: Abnormal Labs 05/17/23 05/17/23 05/17/23 03:30 03:38 03:52 WBC 18.0 H RBC Hgb Hct Neutrophils # 16.8 H Lymphocytes # 0.9 L Sodium Chloride BUN Glucose POC Glucose (mg/dL) Plasma Lactic Acid Leon 2.6 H* Calcium Magnesium AST C-Reactive Protein Total Protein Albumin Urine Protein Trace H Urine Ketones 1+ H Ur Leukocyte Esterase Large H Urine WBC 106 H Urine Bacteria Rare H Urine Mucus Rare H 05/17/23 05/17/23 05/17/23 03:52 06:15 11:12 WBC RBC Hgb Hct Neutrophils # Lymphocytes # Sodium 136 L Chloride BUN 24 H Glucose 163 H POC Glucose (mg/dL) 150 H 168 H Plasma Lactic Acid Leon Calcium Magnesium 1.3 L AST C-Reactive Protein Total Protein 6.1 L Albumin 3.4 L Urine Protein Urine Ketones Ur Leukocyte Esterase Urine WBC Urine Bacteria Urine Mucus 05/17/23 05/17/23 05/18/23 16:15 19:48 05:52 WBC RBC Hgb Hct Neutrophils # Lymphocytes # Sodium Chloride BUN Glucose POC Glucose (mg/dL) 221 H 170 H 115 H Plasma Lactic Acid Leon Calcium Magnesium AST C-Reactive Protein Total Protein Albumin Urine Protein Urine Ketones Ur Leukocyte Esterase Urine WBC Urine Bacteria Urine Mucus 05/18/23 05/18/23 07:25 07:25 WBC 17.5 H RBC 4.21 L Hgb 11.4 L Hct 35.5 L Neutrophils # 15.6 H Lymphocytes # Sodium Chloride 112 H BUN 22 H Glucose 111 H POC Glucose (mg/dL) Plasma Lactic Acid Leon Calcium 7.0 L Magnesium AST 15 L C-Reactive Protein 21.6 H Total Protein 4.1 L Albumin 2.1 L Urine Protein Urine Ketones Ur Leukocyte Esterase Urine WBC Urine Bacteria Urine Mucus - Diagnostic Findings Chest x-ray: image reviewed (as noted in HPI) Assessment and Plan Assessment: impression: sepsis secondary to acute urinary tract infection Acute urinary tract infection, patient had previous history of urinary tract infection secondary to Enterococcus faecalis Severe COPD but stable at present. Remote history of pulmonary embolism History of CVA/TIA Degenerative joint disease History of volume reduction surgery for bullous emphysema Type 2 diabetes without complications Recommendation: Fully agree with the present treatment plan including his present antibiotics, patient is now empirically on vancomycin and Merrem Resume home meds including his bronchodilators. Continue IV fluids, and continue to monitor electrolytes and renal profile. Awaiting ulcers of urine and blood, and we'll adjust antibiotics accordingly. We will continue to follow Time with Patient: Greater than 30
[2023-05-18 11:36] LABS: Glucose,Whole Blood 178 mg/dL (70-110)
[2023-05-18] MEDS ORDERED: DEXTROSE 50% SYRINGE 50 ML IVP PRN ×2 (12:25)
--- NOTE | 2023-05-18 12:30 | P.PN ---
Subjective Progress Note Date: 05/18/23 I assumed care for this patient on 05/18/2023. Patient is a 72-year-old male with PMH of COPD, chronic respiratory failure, history of CVA, diabetes mellitus, chronic leg pain, adrenaline sufficiency, history of pulmonary embolus, hypertension, restless leg syndrome that presents to the ED for fever as high as 104 Fahrenheit, chills and difficulty urinating over the past 1 day. Patient underwent extensive evaluation in the ED. In the ED, he was noted to be febrile with T-max of 100.1 Fahrenheit, tachycardic with heart rate of 118, hypotensive with BP as low as 81/52 saturating 87 % on room air. CBC showed a leukocytosis of 18. CMP showed sodium of 136, BUN of 24, glucose 163, albumin of 3.4. Magnesium was 1.3. Lactic acid was 2.6. Urinalysis showed large leukocyte esterase. EKG showed sinus tachycardia. Chest x-ray showed basilar increased density. He was subsequently started on vancomycin and Zosyn and admitted for sepsis likely related to UTI. 05/18 Patient was seen and examined this morning with his at bedside. He reports considerable improvement in his symptoms. Overnight, he had a T-max of 101.7 Fahrenheit. Zosyn was discontinued and he was started on meropenem 1 g IV every 8 hours. This morning, CBC shows RBC count of 17.5 and hemoglobin of 11.4. CMP shows chloride of 112, BUN of 22, glucose of 111, calcium of 7, AST of 15, albumin of 2.1. CRP is 21.6. His blood culture and urine culture is positive for gram negatives bacilli. General: non toxic, no distress, appears at stated age Derm: warm, dry Head: atraumatic, normocephalic, symmetric Eyes: EOMI, no lid lag, anicteric sclera Cardiovascular: S1S2 reg, no murmur Lungs: Decreased breath sounds bilateral, no rhonchi, no rales , no accessory muscle use Abdominal: soft, nontender to palpation, no guarding, no appreciable organomegaly Ext: no gross muscle atrophy, no edema, no contractures Neuro: no focal neuro deficits Psych: Alert, oriented, appropriate affect Sepsis likely related to UTI: Gram-negative bacteremia Hypomagnesemia Chronic conditions: COPD, chronic respiratory failure, history of CVA, diabetes mellitus, chronic leg pain, adrenaline sufficiency, history of pulmonary embolus , hypertension, restless leg syndrome Based on my assessment of this patient, this patient meets a high complexity level of care. Patient has an acute diagnosis of sepsis related to UTI with gram-negative bacteremia that poses a threat to life or bodily function. Sepsis likely related to UTI: Discontinue Vancomycin IV discontinued and patient continued on Meropenem 1g IV Q8H. BCx 05/17 + for gram negative bacilli. UCx + gram negative bacilli. Telemetry monitoring. Continue NS at 130 cc/hr. Tylenol PRN for fever. Repeat BCx. Infectious disease on board. Gram-negative bacteremia: Management as above. Hypomagnesemia: Received Mag ox 400 mg PO in the ED. Repeat Mag level tomorrow morning. Resolved: Lactic acidosis Chronic conditions: COPD: Not in acute exacerbation. DuoNeb scheduled and as needed for SOB/wheezing. Chronic respiratory failure: Supplemental O2 as needed to maintain O2 saturation > 92%. History of CVA: Continue Lipitor 40 mg PO QHS, Plavix 75 mg PO QD, Zetia 10 mg PO QD. Diabetes mellitus: Insulin sliding scale. Accuchecks ACHS. Hypoglycemic precautions. Chronic leg pain: [place] 7.5 mg PO TID scheduled. Gabapentin 600 mg PO QD, 1200 mg PO QHS. Adrenaline sufficiency: Hydrocortisone 30 mg PO QD. History of pulmonary embolus: Eliquis 5 mg PO BID. Hypertension: Losartan and Metoprolol on hold. Restless leg syndrome: Ropinirole 0.5 mg PO BID. I have reviewed the following cost consultant notes: Pulmonology note reviewed. I have reviewed the results of the following tests: CBC, CMP, BCx, UCx, CRP ordered. I have ordered the following tests: CBC, BMP, Mag. I have discussed the care of this patient with the following independent historian: I have independently interpreted the following test below: I have discussed the management of this patient with the following physician: Objective - Vital Signs Vital signs: Vital Signs Temp 98.1 F 05/18/23 08:00 Pulse 76 05/18/23 08:00 Resp 16 05/18/23 08:00 BP 98/62 05/18/23 08:00 Pulse Ox 91 L 05/18/23 08:00 FiO2 Intake & Output 05/17/23 05/18/23 05/18/23 18:59 06:59 18:59 Intake Total 538 Output Total 200 700 Balance 338 -700 Intake: Oral 538 Output: Urine 200 700 Other: Voiding Method Toilet Toilet Toilet Urinal Urinal Urinal - Labs CBC & Chem 7: 05/18/23 07:25 05/18/23 07:25 Labs: Abnormal Lab Results - Last 24 Hours (Table) 05/17/23 05/17/23 05/18/23 Range/Units 16:15 19:48 05:52 WBC (3.8-10.6) k/uL RBC (4.30-5.90) m/uL Hgb (13.0-17.5) gm/dL Hct (39.0-53.0) % Neutrophils # (1.3-7.7) k/uL Chloride (98-107) mmol/L BUN (9-20) mg/dL Glucose (74-99) mg/dL POC Glucose (mg/dL) 221 H 170 H 115 H (70-110) mg/dL Calcium (8.4-10.2) mg/dL AST (17-59) U/L C-Reactive Protein (<1.0) mg/dL Total Protein (6.3-8.2) g/dL Albumin (3.5-5.0) g/dL 05/18/23 05/18/23 05/18/23 Range/Units 07:25 07:25 11:35 WBC 17.5 H (3.8-10.6) k/uL RBC 4.21 L (4.30-5.90) m/uL Hgb 11.4 L (13.0-17.5) gm/dL Hct 35.5 L (39.0-53.0) % Neutrophils # 15.6 H (1.3-7.7) k/uL Chloride 112 H (98-107) mmol/L BUN 22 H (9-20) mg/dL Glucose 111 H (74-99) mg/dL POC Glucose (mg/dL) 178 H (70-110) mg/dL Calcium 7.0 L (8.4-10.2) mg/dL AST 15 L (17-59) U/L C-Reactive Protein 21.6 H (<1.0) mg/dL Total Protein 4.1 L (6.3-8.2) g/dL Albumin 2.1 L (3.5-5.0) g/dL Microbiology - Last 24 Hours (Table) 05/17/23 03:30 Urine Culture - Preliminary Urine,Voided Gram Neg Bacilli 05/17/23 05:00 Blood Culture Gram Stain - Preliminary Blood Blood Culture - Preliminary Gram Neg Bacilli
[2023-05-18] MEDS: INSULIN ASPART (NovoLOG) 100 UNIT/ML VIAL SQ SCH ×3 (13:13→20:23)
--- NOTE | 2023-05-18 15:57 | P.PN ---
Subjective Progress Note Date: 05/18/23 Principal diagnosis: E. coli urinary tract infection and bacteremia Patient is a 72-year-old male with a past medical history significant for diabetes mellitus hypertension hyperlipidemia history of prostate disorder pneumonia and PE presenting to the hospital for evaluation of chills and he has complaining of dysuria and urgency , patient did have features of sepsis on admission positive UA concerning for UTI that subsequently came back positive ultrasound has been negative for any hydronephrosis. On today's evaluation that is 05/18/2023, patient did spike a fever earlier this morning of 101.7F the patient is afebrile since then, patient is breathing comfortably on room air denies any chest pain or shortness of occasional cough no nausea no vomiting no abdominal pain and urinary symptoms have improved Objective - Vital Signs Vital signs: Vital Signs Temp 98.2 F 05/18/23 12:00 Pulse 78 05/18/23 12:00 Resp 16 05/18/23 12:00 BP 102/61 05/18/23 12:00 Pulse Ox 94 L 05/18/23 12:00 FiO2 Intake & Output 05/17/23 05/18/23 05/18/23 18:59 06:59 18:59 Intake Total 538 Output Total 200 700 Balance 338 -700 Intake: Oral 538 Output: Urine 200 700 Other: Voiding Method Toilet Toilet Toilet Urinal Urinal Urinal - Exam GENERAL DESCRIPTION: An elderly male lying in bed in no distress RESPIRATORY SYSTEM: Unlabored breathing , decreased breath sounds at bases HEART: S1 S2 regular rate and rhythm , ABDOMEN: Soft , no tenderness EXTREMITIES: No edema feet - Labs CBC & Chem 7: 05/18/23 07:25 05/18/23 07:25 Labs: Abnormal Lab Results - Last 24 Hours (Table) 05/17/23 05/17/23 05/18/23 Range/Units 16:15 19:48 05:52 WBC (3.8-10.6) k/uL RBC (4.30-5.90) m/uL Hgb (13.0-17.5) gm/dL Hct (39.0-53.0) % Neutrophils # (1.3-7.7) k/uL Chloride (98-107) mmol/L BUN (9-20) mg/dL Glucose (74-99) mg/dL POC Glucose (mg/dL) 221 H 170 H 115 H (70-110) mg/dL Calcium (8.4-10.2) mg/dL AST (17-59) U/L C-Reactive Protein (<1.0) mg/dL Total Protein (6.3-8.2) g/dL Albumin (3.5-5.0) g/dL 05/18/23 05/18/23 05/18/23 Range/Units 07:25 07:25 11:35 WBC 17.5 H (3.8-10.6) k/uL RBC 4.21 L (4.30-5.90) m/uL Hgb 11.4 L (13.0-17.5) gm/dL Hct 35.5 L (39.0-53.0) % Neutrophils # 15.6 H (1.3-7.7) k/uL Chloride 112 H (98-107) mmol/L BUN 22 H (9-20) mg/dL Glucose 111 H (74-99) mg/dL POC Glucose (mg/dL) 178 H (70-110) mg/dL Calcium 7.0 L (8.4-10.2) mg/dL AST 15 L (17-59) U/L C-Reactive Protein 21.6 H (<1.0) mg/dL Total Protein 4.1 L (6.3-8.2) g/dL Albumin 2.1 L (3.5-5.0) g/dL Microbiology - Last 24 Hours (Table) 05/17/23 05:15 Blood Culture - Preliminary Blood 05/17/23 03:30 Urine Culture - Preliminary Urine,Voided Gram Neg Bacilli 05/17/23 05:00 Blood Culture Gram Stain - Preliminary Blood Blood Culture - Preliminary Gram Neg Bacilli Assessment and Plan (1) E coli bacteremia Current Visit: Yes Status: Acute Code(s): R78.81 - BACTEREMIA; B96.20 - UNSP ESCHERICHIA COLI THE CAUSE OF DISEASES CLASSD [facility] SNOMED Code(s): 5010 [id number] (2) Sepsis secondary to UTI Current Visit: Yes Status: Acute Code(s): A41.9 - SEPSIS, UNSPECIFIED ORGANISM; N39.0 - URINARY TRACT INFECTION, SITE NOT SPECIFIED SNOMED Code(s): 069638131 Plan: 1patient presented to the hospital with sepsis in this patient who did have a fever tachycardia elevated white count patient did have predominantly urinary symptoms source is likely complicated UTI patient did have a history of possible urinary outflow obstruction from prostate enlargement, patient also have some respiratory symptoms with evidence of basilar infiltrate underlying pneumonia less likely but not entirely excluded 2-patient did have ultrasound of the bladder and kidney that was negative for hydronephrosis, 3-patient did have a positive blood culture with an E. coli that is sensitive pathogen we will discontinue Merrem and start the patient Rocephin 2 g daily and monitor clinical course closely Dictation was produced using [place] dictation software. please excuse any grammatical, word or spelling errors. Time with Patient: Less than 30
[2023-05-18 16:10] LABS: Glucose,Whole Blood 178 mg/dL (70-110)
[2023-05-18] MEDS: HYDROcodone/APAP 7.5-325MG 1 EACH TAB PO SCH ×2 (16:26→20:23)
[2023-05-18] MEDS ORDERED: VANCOMYCIN 1,500 MG in SODIUM CHLORIDE 0.9% 500 ML 500 ML IVPB SCH (17:00)
[2023-05-18] MEDS ORDERED: VANCOMYCIN 1,250 MG in SODIUM CHLORIDE 0.9% 250 ML IVPB SCH (17:00)
[2023-05-18] MEDS: IPRATROPIUM-ALBUTEROL 3 ML NEB INHALATION SCH ×2 (19:46→20:24)
[2023-05-18 20:08] LABS: Glucose,Whole Blood 152 mg/dL (70-110)
[2023-05-18] MEDS: ALPRAZolam 1 MG TAB PO PRN (20:24)
[2023-05-18] MEDS: ATORVASTATIN 40 MG TAB PO SCH (20:24)
[2023-05-18] MEDS: traZODone HCL 100 MG TAB PO PRN (20:24)
[2023-05-18] MEDS: GABAPENTIN 400 MG CAP PO SCH (20:24)
[2023-05-19 06:00] LABS: Glucose,Whole Blood 134 mg/dL (70-110)
[2023-05-19] MEDS: INSULIN ASPART (NovoLOG) 100 UNIT/ML VIAL SQ SCH ×4 (06:05→21:00)
[2023-05-19] MEDS: SODIUM CHLORIDE 0.9% 1,000 ML IV SCH ×3 (06:23→14:18)
[2023-05-19] MEDS: PANTOPRAZOLE 40 MG TABLET PO SCH ×2 (06:23→19:29)
[2023-05-19] MEDS: HYDROcodone/APAP 7.5-325MG 1 EACH TAB PO SCH ×3 (06:24→20:58)
[2023-05-19] MEDS: IPRATROPIUM-ALBUTEROL 3 ML NEB INHALATION SCH ×5 (07:43→20:38)
[2023-05-19] MEDS: HYDROCORTISONE 10 MG TAB PO SCH (08:17)
[2023-05-19] MEDS: EZETIMIBE 10 MG TAB PO SCH (08:18)
[2023-05-19] MEDS: BUTALB/APAP/CAFF 50-325-40MG TAB PO PRN (08:18)
[2023-05-19] MEDS: GABAPENTIN 300 MG CAP PO SCH (08:18)
[2023-05-19] MEDS: APIXABAN 5 MG TAB PO SCH ×2 (08:18→21:00)
[2023-05-19] MEDS: CLOPIDOGREL 75 MG TAB PO SCH (08:19)
[2023-05-19] MEDS: MORPHINE SULFATE 2 MG/ML SYRINGE IVP PRN (11:03)
[2023-05-19 11:50] LABS: Glucose,Whole Blood 210 mg/dL (70-110)
--- NOTE | 2023-05-19 11:53 | P.PN ---
Subjective Progress Note Date: 05/19/23 Principal diagnosis: Acute urinary tract infection with sepsis and bacteremia this is a 72-year-old white male with history of multiple medical problems including COPD, bullous emphysema, recurrent pneumothoraces in the past, history of pulmonary embolism, normally follows up with Dr. Rascon.patient came into the hospital yesterday with mostly one-day history of difficulty urinating, burning sensation on urination, suprapubic discomfort, but no flank pain, no nausea, no vomiting, patient was having intermittent episodes of chills and low- grade fever with a temp of 100.1. This was noted upon his initial presentation to the ER. Patient was also noted to be tachycardic, slightly hypoxic requiring supplemental O2, he had leukocytosis with left shift, and he had normal lactic acid, normal liver enzymes, urine cultures are pending, patient was admitted with the impression of urinary tract infection and sepsis. Patient did not require any pressors, he was given IV fluids, and he was also placed on antibiotics empirically for urinary tract infection/sepsis. Considering his pulmonary history, this consult was initiated. Patient had no cough, no wheezing, no shortness of breath, and no chest pain.chest x-ray on this admission showed mostly by basilaratelectasis, doubt pneumonia.although pneumonia is not entirely ruled out but clinically felt to be less likely. Patient was reevaluated today on 05/19/23, continues to have intermittent fever and chills, remains on antibiotics as per infectious disease he is now on Rocephin and vancomycin his urine cultures are showing gram-negative bacilli his blood cultures are also showing gram-negative bacilli. Final identification and sensitivity is pending. Pulmonary status seems to be relatively stable no cough no wheezing no shortness of breath. WBC count is improving down to 17.5 hemoglobin is 11.4 electrolytes are normal renal profile is normal Objective - Vital Signs Vital signs: Vital Signs Temp 97.7 F 05/19/23 10:49 Pulse 85 05/19/23 11:31 Resp 18 05/19/23 10:49 BP 185/102 05/19/23 10:49 Pulse Ox 91 L 05/19/23 10:49 FiO2 Intake & Output 05/18/23 05/19/23 05/19/23 18:59 06:59 18:59 Intake Total 180 Balance 180 Intake: Oral 180 Other: Voiding Method Toilet Toilet Urinal Urinal - Exam Physical Exam: Revealed 72-year-old white male in no distress.on room air, O2 saturations 91%. Head: Atraumatic, normocephalic. HEENT:[Neck is supple.] [No neck masses.] [No thyromegaly.] [No JVD.] Chest: [diminished breath sound bilaterally no rhonchi or wheezes Cardiac Exam: [Normal S1 and S2, no S3 gallop, no murmur.] Abdomen: [Soft, nontender, no megaly, no rebound, no guarding, normal bowel sounds.] Extremities: [No clubbing, no edema, no cyanosis.] Neurological Exam: [No focal neurologic deficit.]alert oriented 3. Psychiatric: Normal mood, affect and angela mental status examination. skin: No rashes - Labs CBC & Chem 7: 05/18/23 07:25 05/18/23 07:25 Labs: Abnormal Lab Results - Last 24 Hours (Table) 05/18/23 05/18/23 05/18/23 Range/Units 07:26 16:09 20:06 POC Glucose (mg/dL) 178 H 152 H (70-110) mg/dL Procalcitonin 28.00 H (0.02-0.09) ng/mL 05/19/23 Range/Units 05:58 POC Glucose (mg/dL) 134 H (70-110) mg/dL Procalcitonin (0.02-0.09) ng/mL Microbiology - Last 24 Hours (Table) 05/17/23 05:15 Blood Culture - Preliminary Blood 05/17/23 03:30 Urine Culture - Preliminary Urine,Voided Gram Neg Bacilli 05/17/23 05:00 Blood Culture Gram Stain - Preliminary Blood Blood Culture - Preliminary Gram Neg Bacilli Assessment and Plan Assessment: impression: sepsis secondary to acute urinary tract infection, and bacteremia with gram- negative infection, final identification and sensitivities pending Acute urinary tract infection Severe COPD but stable at present. Remote history of pulmonary embolism History of CVA/TIA Degenerative joint disease History of volume reduction surgery for bullous emphysema Type 2 diabetes without complications Recommendation: Continue antibiotics as per infectious disease on the case. Continue home meds including his bronchodilators. Continue IV fluids, and continue to monitor electrolytes and renal profile. Awaiting final report on the cultures from the blood and urine We will continue to follow Time with Patient: Less than 30
--- NOTE | 2023-05-19 11:54 | P.PN ---
Subjective Progress Note Date: 05/19/23 I assumed care for this patient on 05/18/2023. Patient is a 72-year-old male with PMH of COPD, chronic respiratory failure, history of CVA, diabetes mellitus, chronic leg pain, adrenaline sufficiency, history of pulmonary embolus, hypertension, restless leg syndrome that presents to the ED for fever as high as 104 Fahrenheit, chills and difficulty urinating over the past 1 day. Patient underwent extensive evaluation in the ED. In the ED, he was noted to be febrile with T-max of 100.1 Fahrenheit, tachycardic with heart rate of 118, hypotensive with BP as low as 81/52 saturating 87 % on room air. CBC showed a leukocytosis of 18. CMP showed sodium of 136, BUN of 24, glucose 163, albumin of 3.4. Magnesium was 1.3. Lactic acid was 2.6. Urinalysis showed large leukocyte esterase. EKG showed sinus tachycardia. Chest x-ray showed basilar increased density. He was subsequently started on vancomycin and Zosyn and admitted for sepsis likely related to UTI. 05/18 Patient was seen and examined this morning with his at bedside. He reports considerable improvement in his symptoms. Overnight, he had a T-max of 101.7 Fahrenheit. Zosyn was discontinued and he was started on meropenem 1 g IV every 8 hours. This morning, CBC shows RBC count of 17.5 and hemoglobin of 11.4. CMP shows chloride of 112, BUN of 22, glucose of 111, calcium of 7, AST of 15, albumin of 2.1. CRP is 21.6. His blood culture and urine culture is positive for gram negatives bacilli. 05/19 Patient was seen and examined. He reports headache and pain in both of his legs, which is chronic in nature. Tmax 101.6F over the past 24H. BP elevated at 185/102, P 95, 91% on RA. Lab work is pending from today. General: non toxic, no distress, appears at stated age Derm: warm, dry Head: atraumatic, normocephalic, symmetric Eyes: EOMI, no lid lag, anicteric sclera Cardiovascular: S1S2 reg, no murmur Lungs: Decreased breath sounds bilateral, no rhonchi, no rales , no accessory muscle use Ext: no gross muscle atrophy, no edema, no contractures Neuro: no focal neuro deficits Psych: Alert, oriented, appropriate affect Sepsis likely related to UTI Gram-negative bacteremia Hypomagnesemia Chronic conditions: COPD, chronic respiratory failure, history of CVA, diabetes mellitus, chronic leg pain, adrenaline sufficiency, history of pulmonary embolus, hypertension, restless leg syndrome Based on my assessment of this patient, this patient meets a high complexity level of care. Patient has an acute diagnosis of sepsis related to UTI with gram-negative bacteremia that poses a threat to life or bodily function. Sepsis likely related to UTI: Started on Rocephin 2g IV QD for presumed E.coli bacteremia. BCx 05/17 + for gram negative bacilli. UCx + gram negative bacilli. Telemetry monitoring. Decrease NS to 75 cc/hr. Tylenol PRN for fever. Repeat BCx pending. Infectious disease on board. Gram-negative bacteremia: Management as above. Hypomagnesemia: Repeat Mag level pending. Resolved: Lactic acidosis Chronic conditions: COPD: Not in acute exacerbation. DuoNeb scheduled and as needed for SOB/wheezing . Chronic respiratory failure: Supplemental O2 as needed to maintain O2 saturation > 92%. History of CVA: Continue Lipitor 40 mg PO QHS, Plavix 75 mg PO QD, Zetia 10 mg PO QD. Diabetes mellitus: Insulin sliding scale. Accuchecks ACHS. Hypoglycemic precautions. Chronic leg pain: [place] 7.5 mg PO TID scheduled. Gabapentin 600 mg PO QD, 1200 mg PO QHS. Adrenaline sufficiency: Hydrocortisone 30 mg PO QD. History of pulmonary embolus: Eliquis 5 mg PO BID. Hypertension: Restart Losartan 50 mg PO QD and Metoprolol 25 mg PO BID since BP is on the high side today. Restless leg syndrome: Ropinirole 0.5 mg PO BID. I have reviewed the following school plant consultant notes: ID note reviewed. I have reviewed the results of the following tests: I have ordered the following tests: Pending: CBC, BMP, Mag. I have discussed the care of this patient with the following independent historian: I have independently interpreted the following test below: I have discussed the management of this patient with the following physician: Objective - Vital Signs Vital signs: Vital Signs Temp 97.7 F 05/19/23 10:49 Pulse 85 05/19/23 11:31 Resp 18 05/19/23 10:49 BP 185/102 05/19/23 10:49 Pulse Ox 91 L 05/19/23 10:49 FiO2 Intake & Output 05/18/23 05/19/23 05/19/23 18:59 06:59 18:59 Intake Total 180 Balance 180 Intake: Oral 180 Other: Voiding Method Toilet Toilet Urinal Urinal - Labs CBC & Chem 7: 05/18/23 07:25 05/18/23 07:25 Labs: Abnormal Lab Results - Last 24 Hours (Table) 05/18/23 05/18/23 05/18/23 Range/Units 07:26 16:09 20:06 POC Glucose (mg/dL) 178 H 152 H (70-110) mg/dL Procalcitonin 28.00 H (0.02-0.09) ng/mL 05/19/23 Range/Units 05:58 POC Glucose (mg/dL) 134 H (70-110) mg/dL Procalcitonin (0.02-0.09) ng/mL Microbiology - Last 24 Hours (Table) 05/17/23 05:15 Blood Culture - Preliminary Blood 05/17/23 03:30 Urine Culture - Preliminary Urine,Voided Gram Neg Bacilli 05/17/23 05:00 Blood Culture Gram Stain - Preliminary Blood Blood Culture - Preliminary Gram Neg Bacilli
[2023-05-19] MEDS: METOPROLOL TARTRATE 50 MG TAB PO SCH (12:25)
[2023-05-19] MEDS: LOSARTAN 25 MG TAB PO SCH ×2 (12:25→21:00)
[2023-05-19 13:39] LABS: HCT 37.1 % (39.0-53.0); HGB 11.4 gm/dL (13.0-17.5); Hypochromasia Marked; MCH 26.6 pg (25.0-35.0); MCHC 30.8 g/dL (31.0-37.0); MCV 86.3 fL (80.0-100.0); Mean Platelet Volume 7.6; Platelet Count 135 k/uL (150-450); RDW 14.6 % (11.5-15.5); WBC 6.2 k/uL (3.8-10.6)
[2023-05-19 13:43] LABS: African American GFR (CKD) >90 (>60 ml/min/1.73 sqM); Non-African American GFR(CKD) 89 (>60 ml/min/1.73 sqM)
[2023-05-19 13:44] LABS: African American GFR (CKD) >90 (>60 ml/min/1.73 sqM); Anion Gap 8 mmol/L; Blood Urea Nitrogen 13 mg/dL (9-20); Calcium 7.5 mg/dL (8.4-10.2); Carbon Dioxide 24 mmol/L (22-30); Chloride 108 mmol/L (98-107); Glucose 243 mg/dL (74-99); Magnesium 1.7 mg/dL (1.6-2.3); Non-African American GFR(CKD) 89 (>60 ml/min/1.73 sqM); Potassium 3.6 mmol/L (3.5-5.1); Sodium 140 mmol/L (137-145)
--- NOTE | 2023-05-19 16:07 | P.PN ---
Subjective Progress Note Date: 05/19/23 Principal diagnosis: E. coli urinary tract infection and bacteremia Patient is a 72-year-old male with a past medical history significant for diabetes mellitus hypertension hyperlipidemia history of prostate disorder pneumonia and PE presenting to the hospital for evaluation of chills and he has complaining of dysuria and urgency , patient did have features of sepsis on admission positive UA concerning for UTI that subsequently came back positive ultrasound has been negative for any hydronephrosis. On today's evaluation that is 05/19/2023, patient did spike a fever earlier this morning of 101.F the patient is afebrile since then, patient is breathing comfortably on room air, the patient denies any chest pain or shortness of breath he did have some cough bringing up some sputum and no hemoptysis patient denies any nausea no vomiting no abdominal pain or any urinary symptoms have improved Objective - Vital Signs Vital signs: Vital Signs Temp 97.5 F L 05/19/23 15:17 Pulse 96 05/19/23 15:17 Resp 16 05/19/23 15:17 BP 124/94 05/19/23 15:17 Pulse Ox 98 05/19/23 15:17 FiO2 Intake & Output 05/18/23 05/19/23 05/19/23 18:59 06:59 18:59 Intake Total 180 240 Balance 180 240 Intake: Oral 180 240 Other: Voiding Method Toilet Toilet Toilet Urinal Urinal Urinal - Exam GENERAL DESCRIPTION: An elderly male lying in bed in no distress RESPIRATORY SYSTEM: Unlabored breathing , decreased breath sounds at bases HEART: S1 S2 regular rate and rhythm , ABDOMEN: Soft , no tenderness EXTREMITIES: No edema feet - Labs CBC & Chem 7: 05/19/23 12:54 05/19/23 12:54 Labs: Abnormal Lab Results - Last 24 Hours (Table) 05/18/23 05/18/23 05/19/23 Range/Units 16:09 20:06 05:58 Hgb (13.0-17.5) gm/dL Hct (39.0-53.0) % MCHC (31.0-37.0) g/dL Plt Count (150-450) k/uL Chloride (98-107) mmol/L Glucose (74-99) mg/dL POC Glucose (mg/dL) 178 H 152 H 134 H (70-110) mg/dL Calcium (8.4-10.2) mg/dL 05/19/23 05/19/23 05/19/23 Range/Units 11:47 12:54 12:54 Hgb 11.4 L (13.0-17.5) gm/dL Hct 37.1 L (39.0-53.0) % MCHC 30.8 L (31.0-37.0) g/dL Plt Count 135 L (150-450) k/uL Chloride 108 H (98-107) mmol/L Glucose 243 H (74-99) mg/dL POC Glucose (mg/dL) 210 H (70-110) mg/dL Calcium 7.5 L (8.4-10.2) mg/dL Microbiology - Last 24 Hours (Table) 05/17/23 05:00 Blood Culture Gram Stain - Final Blood Blood Culture - Final Escherichia coli 05/17/23 03:30 Urine Culture - Final Urine,Voided Escherichia coli 05/17/23 05:15 Blood Culture - Preliminary Blood Assessment and Plan (1) E coli bacteremia Current Visit: Yes Status: Acute Code(s): R78.81 - BACTEREMIA; B96.20 - UNSP ESCHERICHIA COLI THE CAUSE OF DISEASES CLASSD [facility] SNOMED Code(s): 333621333048 (2) Sepsis secondary to UTI Current Visit: Yes Status: Acute Code(s): A41.9 - SEPSIS, UNSPECIFIED ORGANISM; N39.0 - URINARY TRACT INFECTION, SITE NOT SPECIFIED SNOMED Code(s): 519471553 Plan: 1patient presented to the hospital with sepsis in this patient who did have a fever tachycardia elevated white count patient did have predominantly urinary symptoms source is likely complicated UTI patient did have a history of possible urinary outflow obstruction from prostate enlargement, patient also have some respiratory symptoms with evidence of basilar infiltrate underlying pneumonia less likely but not entirely excluded 2-patient did have ultrasound of the bladder and kidney that was negative for hydronephrosis, 3-patient did have a positive blood culture with an E. coli that is sensitive pathogen, patient did spike a fever this morning which is sometimes, with pyelonephritis patient white count has normalized and has shown clinical improvement we will continue the patient Rocephin 2 g daily and monitor clinical course closely, questions Answered Dictation was produced using [employer] software. please excuse any grammatical, word or spelling errors. Time with Patient: Less than 30
[2023-05-19 16:25] LABS: Glucose,Whole Blood 226 mg/dL (70-110)
[2023-05-19 19:54] LABS: Glucose,Whole Blood 175 mg/dL (70-110)
[2023-05-19] MEDS: GABAPENTIN 400 MG CAP PO SCH (20:58)
[2023-05-19] MEDS: ALPRAZolam 1 MG TAB PO PRN (20:58)
[2023-05-19] MEDS: ATORVASTATIN 40 MG TAB PO SCH (21:00)
[2023-05-20] MEDS: MORPHINE SULFATE 2 MG/ML SYRINGE IVP PRN (03:29)
[2023-05-20] MEDS: ACETAMINOPHEN TAB 325 MG TAB PO PRN (05:42)
[2023-05-20 05:48] LABS: Glucose,Whole Blood 100 mg/dL (70-110)
[2023-05-20] MEDS: cloNIDine HCL 0.2 MG TAB PO PRN (05:50)
[2023-05-20] MEDS: INSULIN ASPART (NovoLOG) 100 UNIT/ML VIAL SQ SCH ×4 (06:00→20:24)
--- NOTE | 2023-05-20 06:37 | CT ---
EXAM: CT Head Without Intravenous Contrast CLINICAL HISTORY: ITS.REASON CT Reason: new severe headache, with uncontrolled BP TECHNIQUE: Axial computed tomography images of the head/brain without intravenous contrast. CTDI is 49.27 mGy and DLP is 1173.4 mGy-cm. This CT exam was performed using one or more of the following dose reduction techniques: automated exposure control, adjustment of the mA and/or kV according to patient size, and/or use of iterative reconstruction technique. COMPARISON: CT head on 10/21/2014 FINDINGS: Brain: No acute infarct or hemorrhage. No extra-axial fluid collection. No mass effect or midline shift. Ventricles and sulci: Normal. No ventriculomegaly or intraventricular hemorrhage. Bones: Normal. No bony lesion or acute fracture. Subcutaneous tissues: Normal. Sinuses: Mild mucosal thickening in the maxillary sinuses and polyps versus mucous retention cyst in the right maxillary sinus. Mild mucosal thickening in the sphenoid sinuses and ethmoid air cells and the frontal sinus. Mastoid air cells: Normal. Orbits: Grossly unremarkable. Other: Mild atherosclerotic changes in the intracranial vasculature. Motion artifact at the foramen magnum more probable than severe stenosis. IMPRESSION: No acute intracranial abnormality.
[2023-05-20] MEDS: PANTOPRAZOLE 40 MG TABLET PO SCH ×2 (06:38→17:14)
[2023-05-20] MEDS: IPRATROPIUM-ALBUTEROL 3 ML NEB INHALATION SCH ×4 (08:25→21:25)
[2023-05-20 08:35] LABS: African American GFR (CKD) >90 (>60 ml/min/1.73 sqM); Non-African American GFR(CKD) >90 (>60 ml/min/1.73 sqM)
[2023-05-20] MEDS: HYDROcodone/APAP 7.5-325MG 1 EACH TAB PO SCH ×3 (09:13→20:25)
[2023-05-20] MEDS: EZETIMIBE 10 MG TAB PO SCH (09:13)
[2023-05-20] MEDS: LOSARTAN 25 MG TAB PO SCH ×2 (09:14→20:27)
[2023-05-20] MEDS: GABAPENTIN 300 MG CAP PO SCH (09:14)
[2023-05-20] MEDS: APIXABAN 5 MG TAB PO SCH ×2 (09:14→20:27)
[2023-05-20] MEDS: HYDROCORTISONE 10 MG TAB PO SCH (09:15)
[2023-05-20] MEDS: CLOPIDOGREL 75 MG TAB PO SCH (09:17)
[2023-05-20] MEDS: METOPROLOL TARTRATE 50 MG TAB PO SCH (09:17)
--- NOTE | 2023-05-20 11:12 | P.PN ---
Subjective Progress Note Date: 05/20/23 Principal diagnosis: Sepsis. Acute urinary tract infection with sepsis and bacteremia this is a 72-year-old white male with history of multiple medical problems including COPD, bullous emphysema, recurrent pneumothoraces in the past, history of pulmonary embolism, normally follows up with Dr. Rascon.patient came into the hospital yesterday with mostly one-day history of difficulty urinating, burning sensation on urination, suprapubic discomfort, but no flank pain, no nausea, no vomiting, patient was having intermittent episodes of chills and low- grade fever with a temp of 100.1. This was noted upon his initial presentation to the ER. Patient was also noted to be tachycardic, slightly hypoxic requiring supplemental O2, he had leukocytosis with left shift, and he had normal lactic acid, normal liver enzymes, urine cultures are pending, patient was admitted with the impression of urinary tract infection and sepsis. Patient did not require any pressors, he was given IV fluids, and he was also placed on antibiotics empirically for urinary tract infection/sepsis. Considering his pulmonary history, this consult was initiated. Patient had no cough, no wheezing, no shortness of breath, and no chest pain.chest x-ray on this admission showed mostly by basilaratelectasis, doubt pneumonia.although pneumonia is not entirely ruled out but clinically felt to be less likely. Patient was reevaluated today on 05/19/23, continues to have intermittent fever and chills, remains on antibiotics as per infectious disease he is now on Rocephin and vancomycin his urine cultures are showing gram-negative bacilli his blood cultures are also showing gram-negative bacilli. Final identification and sensitivity is pending. Pulmonary status seems to be relatively stable no cough no wheezing no shortness of breath. WBC count is improving down to 17.5 hemoglobin is 11.4 electrolytes are normal renal profile is normal Progress note dated 05/20/2023. 72-year-old male admitted a few days ago, with suspected sepsis. The patient has evidence of Escherichia coli urinary tract infection, and Escherichia coli bacteremia. He remains on Rocephin. He's on room air. He's not receiving any IV fluids. He was sitting upright in bed. No new labs today other than a creatinine 0.68, down from 0.79. His glucose was 100. Objective - Vital Signs Vital signs: Vital Signs Temp 98.9 F 05/20/23 08:00 Pulse 70 05/20/23 08:00 Resp 16 05/20/23 08:00 BP 111/64 05/20/23 08:00 Pulse Ox 91 L 05/20/23 08:00 FiO2 Intake & Output 05/19/23 05/20/23 05/20/23 18:59 06:59 18:59 Intake Total 420 700 0 Balance 420 700 0 Intake: Intake, IV Titration 600 Amount Sodium Chloride 0.9% 1, 600 000 ml @ 75 mls/hr IV . [id number] [facility] Rx#:[id number] Oral 420 100 0 Other: Voiding Method Toilet Toilet Urinal Urinal # Voids 1 - Exam No acute distress, oriented 3. Currently on room air. Saturations are 96%. HEENT examination is grossly unremarkable. Neck supple. Full range of motion. No adenopathy thyromegaly or neck vein distention. Cardiovascular examination reveals regular rhythm rate. S1-S2 normal. No S3 or S4. No discernible murmur noted. Heart rate 70 bpm. Blood pressure is 111/64. Lungs reveal clear breath sounds. Breath sounds are equal bilaterally. No adventitious lung sounds including wheezes rhonchi or crackles. Abdomen soft bowel sounds are heard. No masses or tenderness. Extremities are intact. No cyanosis clubbing or edema. Skin is without rash or lesion. Neurologic examination is brief but nonfocal. - Labs CBC & Chem 7: 05/19/23 12:54 05/20/23 08:11 Labs: Abnormal Lab Results - Last 24 Hours (Table) 05/19/23 05/19/23 05/19/23 Range/Units 11:47 12:54 12:54 Hgb 11.4 L (13.0-17.5) gm/dL Hct 37.1 L (39.0-53.0) % MCHC 30.8 L (31.0-37.0) g/dL Plt Count 135 L (150-450) k/uL Chloride 108 H (98-107) mmol/L Glucose 243 H (74-99) mg/dL POC Glucose (mg/dL) 210 H (70-110) mg/dL Calcium 7.5 L (8.4-10.2) mg/dL 05/19/23 05/19/23 Range/Units 16:23 19:53 Hgb (13.0-17.5) gm/dL Hct (39.0-53.0) % MCHC (31.0-37.0) g/dL Plt Count (150-450) k/uL Chloride (98-107) mmol/L Glucose (74-99) mg/dL POC Glucose (mg/dL) 226 H 175 H (70-110) mg/dL Calcium (8.4-10.2) mg/dL Microbiology - Last 24 Hours (Table) 05/18/23 07:25 Blood Culture - Preliminary Blood 05/17/23 05:00 Blood Culture Gram Stain - Final Blood Blood Culture - Final Escherichia coli 05/17/23 03:30 Urine Culture - Final Urine,Voided Escherichia coli 05/17/23 05:15 Blood Culture - Preliminary Blood Assessment and Plan Assessment: Escherichia coli urinary tract infection as well as bacteremia. Severe COPD, which is currently stable. Remote history of pulmonary embolism. History of CVA. Degenerative joint disease. Status post volume reduction surgery, for bullous emphysema. Type 2 diabetes mellitus. Plan: Plan dated 05/20/2023. The patient appears to be doing relatively well. Apparently last night, he had elevated blood pressure with headache. A computed tomography scan of the brain was showing no acute abnormality. Clinically, his blood pressure is now stable. He continues on Rocephin for Escherichia coli urinary tract infection and bacteremia. The patient typically sees and will ask him to see him in consultation. Additional recommendations and suggestions are forthcoming. Prognosis is guarded. Time with Patient: Less than 30
[2023-05-20 11:27] LABS: Glucose,Whole Blood 179 mg/dL (70-110)
--- NOTE | 2023-05-20 13:06 | P.PN ---
Subjective Progress Note Date: 05/20/23 I assumed care for this patient on 05/18/2023. Patient is a 72-year-old male with PMH of COPD, chronic respiratory failure, history of CVA, diabetes mellitus, chronic leg pain, adrenaline sufficiency, history of pulmonary embolus, hypertension, restless leg syndrome that presents to the ED for fever as high as 104 Fahrenheit, chills and difficulty urinating over the past 1 day. Patient underwent extensive evaluation in the ED. In the ED, he was noted to be febrile with T-max of 100.1 Fahrenheit, tachycardic with heart rate of 118, hypotensive with BP as low as 81/52 saturating 87 % on room air. CBC showed a leukocytosis of 18. CMP showed sodium of 136, BUN of 24, glucose 163, albumin of 3.4. Magnesium was 1.3. Lactic acid was 2.6. Urinalysis showed large leukocyte esterase. EKG showed sinus tachycardia. Chest x-ray showed basilar increased density. He was subsequently started on vancomycin and Zosyn and admitted for sepsis likely related to UTI. 05/18 Patient was seen and examined this morning with his at bedside. He reports considerable improvement in his symptoms. Overnight, he had a T-max of 101.7 Fahrenheit. Zosyn was discontinued and he was started on meropenem 1 g IV every 8 hours. This morning, CBC shows RBC count of 17.5 and hemoglobin of 11.4. CMP shows chloride of 112, BUN of 22, glucose of 111, calcium of 7, AST of 15, albumin of 2.1. CRP is 21.6. His blood culture and urine culture is positive for gram negatives bacilli. 05/19 Patient was seen and examined. He reports headache and pain in both of his legs, which is chronic in nature. Tmax 101.6F over the past 24H. BP elevated at 185/102, P 95, 91% on RA. CBC showed Hg 11.4. BMP showed Cl 108, glucose 243, Ca 7.5. Mag 1.7. Procalcitonin 28. 05/20 Patient was seen and examined. A-team called overnight for elevated BP (222/115), fever of 103F and severe headache which has now resolved. He was gi benito clonidine 0.2 mg PO x 1. CT head showed no acute intracranial abnormalities. His SBP now is in the 160s. Renal function test within normal limits. BCx and UCx + E. coli. Currently on Rocephin 2g IV QD. General: non toxic, no distress, appears at stated age Derm: warm, dry Head: atraumatic, normocephalic, symmetric Eyes: EOMI, no lid lag, anicteric sclera Cardiovascular: S1S2 reg, no murmur Lungs: Decreased breath sounds bilateral, no rhonchi, no rales , no accessory muscle use Ext: no gross muscle atrophy, no edema, no contractures Neuro: no focal neuro deficits Psych: Alert, oriented, appropriate affect Sepsis likely related to UTI Gram-negative bacteremia Chronic conditions: COPD, chronic respiratory failure, history of CVA, diabetes mellitus, chronic leg pain, adrenaline sufficiency, history of pulmonary embolus, hypertension, restless leg syndrome Based on my assessment of this patient, this patient meets a high complexity level of care. Patient has an acute diagnosis of sepsis related to UTI with gram-negative bacteremia that poses a threat to life or bodily function. Sepsis likely related to UTI: Started on Rocephin 2g IV QD for presumed E.coli bacteremia. BCx 05/17 + for gram negative bacilli. UCx + gram negative bacilli. Telemetry monitoring. Decrease NS to 75 cc/hr. Tylenol PRN for fever. Repeat BCx pending. Infectious disease on board. Gram-negative bacteremia: Management as above. Resolved: Lactic acidosis, HypoMag Chronic conditions: COPD: Not in acute exacerbation. DuoNeb scheduled and as needed for SOB/wheezing. Chronic respiratory failure: Supplemental O2 as needed to maintain O2 saturation > 92%. History of CVA: Continue Lipitor 40 mg PO QHS, Plavix 75 mg PO QD, Zetia 10 mg PO QD. Diabetes mellitus: Insulin sliding scale. Accuchecks ACHS. Hypoglycemic precautions. Chronic leg pain: [place] 7.5 mg PO TID scheduled. Gabapentin 600 mg PO QD, 1200 mg PO QHS. Adrenaline sufficiency: Hydrocortisone 30 mg PO QD. History of pulmonary embolus: Eliquis 5 mg PO BID. Hypertension: Continue Losartan 50 mg PO QD and Metoprolol 25 mg PO BID. Clon idine 0.2 mg PO TID PRN for hypertension. Restless leg syndrome: Ropinirole 0.5 mg PO BID. I have reviewed the following toy consultant notes: Pulmonology note reviewed. I have reviewed the results of the following tests: Renal function, CT head, BCx, UCx, Mag level. I have ordered the following tests: I have discussed the care of this patient with the following independent historian: I have independently interpreted the following test below: I have discussed the management of this patient with the following physician: Objective - Vital Signs Vital signs: Vital Signs Temp 97.9 F 05/20/23 11:43 Pulse 64 05/20/23 11:43 Resp 16 05/20/23 11:43 BP 138/85 05/20/23 11:43 Pulse Ox 94 L 05/20/23 11:43 FiO2 Intake & Output 05/19/23 05/20/23 05/20/23 18:59 06:59 18:59 Intake Total 420 700 0 Balance 420 700 0 Intake: Intake, IV Titration 600 Amount Sodium Chloride 0.9% 1, 600 000 ml @ 75 mls/hr IV . [id number] [facility] Rx#:[id number] Oral 420 100 0 Other: Voiding Method Toilet Toilet Urinal Urinal # Voids 1 - Labs CBC & Chem 7: 05/19/23 12:54 05/20/23 08:11 Labs: Abnormal Lab Results - Last 24 Hours (Table) 05/19/23 05/19/23 05/19/23 Range/Units 12:54 12:54 16:23 Hgb 11.4 L (13.0-17.5) gm/dL Hct 37.1 L (39.0-53.0) % MCHC 30.8 L (31.0-37.0) g/dL Plt Count 135 L (150-450) k/uL Chloride 108 H (98-107) mmol/L Glucose 243 H (74-99) mg/dL POC Glucose (mg/dL) 226 H (70-110) mg/dL Calcium 7.5 L (8.4-10.2) mg/dL 05/19/23 05/20/23 Range/Units 19:53 11:25 Hgb (13.0-17.5) gm/dL Hct (39.0-53.0) % MCHC (31.0-37.0) g/dL Plt Count (150-450) k/uL Chloride (98-107) mmol/L Glucose (74-99) mg/dL POC Glucose (mg/dL) 175 H 179 H (70-110) mg/dL Calcium (8.4-10.2) mg/dL Microbiology - Last 24 Hours (Table) 05/18/23 07:25 Blood Culture - Preliminary Blood 05/17/23 05:00 Blood Culture Gram Stain - Final Blood Blood Culture - Final Escherichia coli 05/17/23 03:30 Urine Culture - Final Urine,Voided Escherichia coli 05/17/23 05:15 Blood Culture - Preliminary Blood
[2023-05-20] MEDS: IOPAMIDOL CONTRAST (ORAL USE) VIAL PO PRN ×2 (14:07→15:00)
[2023-05-20 16:52] LABS: Glucose,Whole Blood 167 mg/dL (70-110)
--- NOTE | 2023-05-20 16:59 | CT ---
EXAMINATION TYPE: CT abdomen pelvis w con CT DLP: 1443.4 mGycm, Automated exposure control for dose reduction was used. DATE OF EXAM: 05/20/2023 4:48 PM COMPARISON: CT CLINICAL INDICATION:Male, 72 years old with history of sepsis/uti; sepsis TECHNIQUE: Axial CT of the abdomen and pelvis. Sagittal and coronal reformats were created on a [employer] workstation. Contrast used:100 mL of Isovue 300 with IV Contrast, (none if empty) Oral contrast used: with Oral Contrast (none if empty) FINDINGS: LOWER CHEST: Fat-containing left Bochdalek hernia. Heart is mildly enlarged for size. Nodular like ch anges within the left lower lung measuring 15 x 10 mm. Dilation of the pulmonary artery up to 3.4 cm. Bullous emphysema changes partially visualized as seen on priors. Trace bilateral pleural effusions. ABDOMEN LIVER: Unremarkable GALLBLADDER AND BILE DUCTS: Decompressed grossly unremarkable. PANCREAS: Unremarkable. SPLEEN: Unremarkable. ADRENAL GLANDS: Unremarkable. KIDNEYS AND URETERS: No evidence of hydronephrosis or renal calculus. Multiple areas of cortical thin johana most pronounced on the left suggesting prior injury. PELVIS BLADDER: Grossly unremarkable. REPRODUCTIVE: Prostate is enlarged in size measuring 5.0 cm in transverse dimension. ABDOMEN & PELVIS STOMACH AND BOWEL: No evidence of bowel obstruction. Scattered colonic diverticula are present. PERITONEUM/RETROPERITONEUM: No evidence of pneumoperitoneum or free fluid. VASCULATURE: Infrarenal abdominal fusiform aortic aneurysm measuring up to 4.2 x 4.0 cm with mural th rombus. MUSCULOSKELETAL: No acute osseous abnormalities LYMPH NODES: No gross evidence for lymphadenopathy. SOFT TISSUE/ABDOMINAL WALL: Bilateral fat-containing inguinal hernias. IMPRESSION: 1. Urinary bladder is not definitively demonstrate wall thickening correlate with urinalysis for cys titis/urinary tract infection.. 2. Infrarenal abdominal fusiform aortic aneurysm measuring up to 4.2 x 4.0 cm with mural thrombus. 3. Pulmonary hypertension. 4. Moderate to severe Coronary atherosclerotic disease. 5. Small hiatal hernia. 6. Bullous emphysema partially visualized. 7. Trace bilateral pleural effusions. 8. Colonic diverticulosis. 9. Prostatomegaly correlate serum PSA. 10. Multiple areas of cortical thinning within left kidney compatible with remote injury.
[2023-05-20 20:02] LABS: Glucose,Whole Blood 178 mg/dL (70-110)
[2023-05-20] MEDS: ALPRAZolam 1 MG TAB PO PRN (20:25)
[2023-05-20] MEDS: traZODone HCL 100 MG TAB PO PRN (20:27)
[2023-05-20] MEDS: ATORVASTATIN 40 MG TAB PO SCH (20:27)
[2023-05-20] MEDS: GABAPENTIN 400 MG CAP PO SCH (20:27)
[2023-05-20] MEDS: BUTALB/APAP/CAFF 50-325-40MG TAB PO PRN (23:18)
[2023-05-21] LABS: Appearance,Urine Clear (Clear); Bilirubin,Urine Negative (Negative); Blood,Urine Negative (Negative); Color,Urine Light Yellow; Glucose,Urine (UA) Negative (Negative); Ketones,Urine Negative (Negative); Leukocyte Esterase,Urine Moderate (Negative); Mucus,Urine Rare /hpf; Nitrite,Urine Negative (Negative); PH, Urine 7.5 (5.0-8.0); Protein,Urine Negative (Negative); RBC,Urine 1 /hpf (0-5); Specific Gravity,Urine 1.011 (1.001-1.035); Urobilinogen,Urine <2.0 mg/dL (<2.0); WBC,Urine 3 /hpf (0-5)
[2023-05-21] MEDS: cloNIDine HCL 0.2 MG TAB PO PRN (00:59)
[2023-05-21 06:00] LABS: Glucose,Whole Blood 132 mg/dL (70-110)
[2023-05-21] MEDS: INSULIN ASPART (NovoLOG) 100 UNIT/ML VIAL SQ SCH ×4 (06:08→21:02)
[2023-05-21] MEDS: PANTOPRAZOLE 40 MG TABLET PO SCH ×2 (06:12→17:11)
--- NOTE | 2023-05-21 06:13 | P.GSCN ---
History of Present Illness Consult date: 05/20/23 Reason for Consult: UTI with Sepsis Requesting physician: Autumn Kim History of present illness: The patient is a 72-year-old white male with a long history of BPH. He was treated for an enterococcus UTI in May 2021. In September 2021, he was hospitalized with a fever presumed to be due to prostatitis. Blood cultures were negative at that time. Urinalysis was unremarkable, and urine cultures were not performed at that time. He had a pulmonary embolus to in May 2019, for which he takes anticoagulants. He underwent holmium laser ablation of the prostate in March 2022. He was last seen in the office in October 2022. Urinalysis at that time was negative, and he was verified to be emptying his bladder. However, he was experiencing voiding symptoms and flank pain and was empirically placed on Levaquin. His symptoms improved. He now presents with dysuria and fever. Urine and blood cultures have both shown E. coli. Review of Systems - Constitutional Reports chills, Reports fever - Genitourinary Reports dysuria, Denies hematuria Past Medical History Past Medical History: COPD, CVA/TIA, Diabetes Mellitus, GERD/Reflux, Hearing Disorder / Deafness, Hyperlipidemia, Myocardial Infarction ([place]), Musculoskeletal Disorder, Osteoarthritis (OA), Pneumonia, Prostate Disorder, Pulmonary Embolus (PE), Respiratory Disorder Additional Past Medical History / Comment(s): PE/RLL pneumonia/acute hypoxic failure. Portal bollous emphysema. low back pain, bilat sciatica; RLS; migraines, TIA , BPH, hearing aids, , diverticulosis. onset diabetes 08/11/19, multiple pneumothorax, O2 @2-4L [place] prn. Adrenal insufficiency Last Myocardial Infarction Date:: 12/30/2019 History of Any Multi-Drug Resistant Organisms: None Reported Past Surgical History: Heart Catheterization With Stent, Hernia Repair, Orthopedic Surgery, Prostate Surgery, Tonsillectomy Additional Past Surgical History / Comment(s): Septoplasty/ESSS, EGD, colonoscopy with benign polyp, R inguinal hernia, umbilical hernia, pain clinic procedures, atilio fundloplication. upper bilat lung lobes removed 05/2021, prostate surgery 3 weeks ago. Past Anesthesia/Blood Transfusion Reactions: No Reported Reaction Additional Past Anesthesia/Blood Transfusion Reaction / Comm: no known family hx Date of Last Stent Placement:: Past Psychological History: PTSD Additional Psychological History / Comment(s): Pt resides with his spouse. He uses no assistive device. He drives. He has a nebulizer and home oxygen as needed. Smoking Status: Former smoker Past Alcohol Use History: None Reported Additional Past Alcohol Use History / Comment(s): Pt started smoking in 1967, 1-1-1/2 packs per day, quit in 1999 Past Drug Use History: None Reported - Past Family History Father History Unknown: Yes Family Medical History: No Reported History, Unable to Obtain Additional Family Medical History / Comment(s): Pt was adopted. Mother History Unknown: Yes Additional Family Medical History / Comment(s): Pt was adopted. Daughter(s) Additional Family Medical History / Comment(s): Children do not have any major medical problems. No history of blood clots. Medications and Allergies Home Medications Medication Instructions Recorded Confirmed Type Gabapentin 1,200 mg PO HS 04/09/16 05/17/23 History ALPRAZolam [Xanax] 1 mg PO HS 03/25/20 05/17/23 History Fluticasone/Umeclidin/Vilanter 1 puff INHALATION RT-DAILY 10/25/21 05/17/23 Hi story [Trelegy Ellipta 100-62.5-25] HYDROcodone/APAP 7.5-325MG [[place] 1 tab PO TID PRN 10/25/21 05/17/23 History 7.5-325] Hydrocortisone [Cortef] 30 mg PO DAILY 04/19/22 05/17/23 History Gabapentin 600 mg PO DAILY 09/17/22 05/17/23 History Pantoprazole Sodium [Protonix] 40 mg PO BID 09/17/22 05/17/23 History Losartan [Cozaar] 50 mg PO DAILY #90 tab 09/18/22 05/17/23 Rx Nitroglycerin Sl Tabs [Nitrostat] 0.4 mg SUBLINGUAL Q5M PRN #100 tab 09/18/22 05/17/23 Rx Apixaban [Eliquis] 5 mg PO DAILY 05/17/23 05/17/23 History Atorvastatin [Lipitor] 40 mg PO HS 05/17/23 05/17/23 History Budesonide/Formoterol Fumarate 2 puff INHALATION RT-BID PRN 05/17/23 05/17/23 History [Symbicort 80-4.5 Mcg Inhaler] Butalb/APAP/Caff 50-325-40Mg 1 tab PO Q4H PRN 05/17/23 05/17/23 History [Fioricet 50-325-40] Clopidogrel Bisulfate [Clopidogrel] 75 mg PO DAILY 05/17/23 05/17/23 History Empagliflozin [Jardiance] 10 mg PO DAILY 05/17/23 05/17/23 History Ezetimibe [Zetia] 10 mg PO DAILY 05/17/23 05/17/23 History Fluticasone Propion/Salmeterol 1 puff INHALATION RT-BID PRN 05/17/23 05/17/23 History [[place] 250-50 Inhub] Metoprolol Tartrate [Lopressor] 25 mg PO BID 05/17/23 05/17/23 History metFORMIN HCL 1,000 mg PO BID 05/17/23 05/17/23 History rOPINIRole HCL [Requip] 0.5 mg PO BID 05/17/23 05/17/23 History traZODone HCL [Desyrel] 200 mg PO HS 05/17/23 05/17/23 History Allergies Allergy/AdvReac Type Severity Reaction Status Date / Time No Known Allergies Allergy Verified 05/17/23 08:02 Surgical - Exam Vital Signs Temp Pulse Resp BP Pulse Ox 100.1 F H 118 H 16 119/76 94 L 05/17/23 03:33 05/17/23 03:33 05/17/23 03:33 05/17/23 03:33 05/17/23 03:33 - General well developed, well nourished, no distress - Respiratory normal respiratory effort - Abdomen Abdomen: soft, non tender, no guarding, no rigid, no rebound - Genitourinary normal penis with no external lesions, testicles non-tender - Psychiatric oriented to time, oriented to person, oriented to place, speech is normal, memory intact Results - Labs 05/19/23 12:54 05/20/23 08:11 Abnormal Lab Results - Last 24 Hours (Table) 05/19/23 05/20/23 05/20/23 Range/Units 19:53 11:25 16:50 POC Glucose (mg/dL) 175 H 179 H 167 H (70-110) mg/dL Microbiology - Last 24 Hours (Table) 05/18/23 07:25 Blood Culture - Preliminary Blood 05/17/23 05:15 Blood Culture - Preliminary Blood 05/17/23 05:00 Blood Culture Gram Stain - Final Blood Blood Culture - Final Escherichia coli 05/17/23 03:30 Urine Culture - Final Urine,Voided Escherichia coli Diabetes panel 05/20/23 Range/Units 08:11 Creatinine 0.68 (0.66-1.25) mg/dL Pituitary panel 05/20/23 Range/Units 08:11 Creatinine 0.68 (0.66-1.25) mg/dL Adrenal panel 05/20/23 Range/Units 08:11 Creatinine 0.68 (0.66-1.25) mg/dL - Imaging CT scan - abdomen: report reviewed, image reviewed Assessment and Plan Assessment: Laboratory studies are consistent with a diagnosis of E. coli UTI with sepsis. Clinical picture is suggestive of acute prostatitis. CT Scan shows left renal scarring and prostatic enlargement. Postvoid residual of less than 100 mL is consistent with adequate bladder emptying. Plan: Continue ceftriaxone until the patient is afebrile and symptomatically improved. I would then suggest he be discharged home on culture appropriate antibiotics for 21 days. Time with Patient: Greater than 30
--- NOTE | 2023-05-21 07:14 | P.PN ---
Subjective Progress Note Date: 05/20/23 Principal diagnosis: E. coli urinary tract infection and bacteremia Patient is a 72-year-old male with a past medical history significant for diabetes mellitus hypertension hyperlipidemia history of prostate disorder pneumonia and PE presenting to the hospital for evaluation of chills and he has complaining of dysuria and urgency , patient did have features of sepsis on admission positive UA concerning for UTI that subsequently came back positive ultrasound has been negative for any hydronephrosis. On today's evaluation that is 05/20/2023, patient did spike a fever earlier this morning of 103.F the patient is afebrile since then, patient is breathing comfortably on room air, the patient denies any chest pain or shortness of breath , the patient did have a mild dry cough, patient denies any nausea no vomiting no abdominal pain or any urinary symptoms have improved Objective - Vital Signs Vital signs: Vital Signs Temp 98.9 F 05/20/23 08:00 Pulse 70 05/20/23 08:00 Resp 16 05/20/23 08:00 BP 111/64 05/20/23 08:00 Pulse Ox 91 L 05/20/23 08:00 FiO2 Intake & Output 05/19/23 05/20/23 05/20/23 18:59 06:59 18:59 Intake Total 420 700 0 Balance 420 700 0 Intake: Intake, IV Titration 600 Amount Sodium Chloride 0.9% 1, 600 000 ml @ 75 mls/hr IV . [id number] [facility] Rx#:[id number] Oral 420 100 0 Other: Voiding Method Toilet Toilet Urinal Urinal # Voids 1 - Exam GENERAL DESCRIPTION: An elderly male lying in bed in no distress RESPIRATORY SYSTEM: Unlabored breathing , decreased breath sounds at bases HEART: S1 S2 regular rate and rhythm , ABDOMEN: Soft , no tenderness EXTREMITIES: No edema feet - Labs CBC & Chem 7: 05/19/23 12:54 05/20/23 08:11 Labs: Abnormal Lab Results - Last 24 Hours (Table) 05/19/23 05/19/23 05/19/23 Range/Units 11:47 12:54 12:54 Hgb 11.4 L (13.0-17.5) gm/dL Hct 37.1 L (39.0-53.0) % MCHC 30.8 L (31.0-37.0) g/dL Plt Count 135 L (150-450) k/uL Chloride 108 H (98-107) mmol/L Glucose 243 H (74-99) mg/dL POC Glucose (mg/dL) 210 H (70-110) mg/dL Calcium 7.5 L (8.4-10.2) mg/dL 05/19/23 05/19/23 Range/Units 16:23 19:53 Hgb (13.0-17.5) gm/dL Hct (39.0-53.0) % MCHC (31.0-37.0) g/dL Plt Count (150-450) k/uL Chloride (98-107) mmol/L Glucose (74-99) mg/dL POC Glucose (mg/dL) 226 H 175 H (70-110) mg/dL Calcium (8.4-10.2) mg/dL Microbiology - Last 24 Hours (Table) 05/18/23 07:25 Blood Culture - Preliminary Blood 05/17/23 05:00 Blood Culture Gram Stain - Final Blood Blood Culture - Final Escherichia coli 05/17/23 03:30 Urine Culture - Final Urine,Voided Escherichia coli 05/17/23 05:15 Blood Culture - Preliminary Blood Assessment and Plan (1) E coli bacteremia Current Visit: Yes Status: Acute Code(s): R78.81 - BACTEREMIA; B96.20 - UNSP ESCHERICHIA COLI THE CAUSE OF DISEASES [facility]SD [facility] SNOMED Code(s): 259862077784 (2) Sepsis secondary to UTI Current Visit: Yes Status: Acute Code(s): A41.9 - SEPSIS, UNSPECIFIED ORGANISM; N39.0 - URINARY TRACT INFECTION, SITE NOT SPECIFIED SNOMED Code(s): 867462270 Plan: 1patient presented to the hospital with sepsis in this patient who did have a fever tachycardia elevated white count patient did have predominantly urinary symptoms source is likely complicated UTI patient did have a history of possible urinary outflow obstruction from prostate enlargement, patient also have some respiratory symptoms with evidence of basilar infiltrate underlying pneumonia less likely but not entirely excluded 2-patient did have ultrasound of the bladder and kidney that was negative for hydronephrosis, 3-patient did have a positive blood culture with an E. coli that is sensitive pathogen, however the patient is still spiking a fever yesterday slightly concerning the concern for possible abscess/prostatitis he will go ahead and check a CT of abdominal pelvis with contrast repeat a UA continue with the Rocephin also check influenza and gordillo PCR at the bedside. Multiple questions and concerns were answered Dictation was produced using [employer] dictation software. please excuse any grammatical, word or spelling errors. Time with Patient: Greater than 30
[2023-05-21] MEDS: IPRATROPIUM-ALBUTEROL 3 ML NEB INHALATION SCH ×4 (07:58→21:19)
[2023-05-21] MEDS: APIXABAN 5 MG TAB PO SCH ×2 (08:47→21:00)
[2023-05-21] MEDS: CLOPIDOGREL 75 MG TAB PO SCH (08:47)
[2023-05-21] MEDS: GABAPENTIN 300 MG CAP PO SCH (08:47)
[2023-05-21] MEDS: HYDROcodone/APAP 7.5-325MG 1 EACH TAB PO SCH ×3 (08:48→21:02)
[2023-05-21] MEDS: METOPROLOL TARTRATE 50 MG TAB PO SCH (08:48)
[2023-05-21] MEDS: EZETIMIBE 10 MG TAB PO SCH (08:48)
[2023-05-21] MEDS: HYDROCORTISONE 10 MG TAB PO SCH (08:48)
[2023-05-21] MEDS: LOSARTAN 25 MG TAB PO SCH ×2 (08:49→21:03)
--- NOTE | 2023-05-21 09:44 | P.PN ---
Subjective Progress Note Date: 05/21/23 Principal diagnosis: Sepsis. Acute urinary tract infection with sepsis and bacteremia this is a 72-year-old white male with history of multiple medical problems including COPD, bullous emphysema, recurrent pneumothoraces in the past, history of pulmonary embolism, normally follows up with Dr. Rascon.patient came into the hospital yesterday with mostly one-day history of difficulty urinating, burning sensation on urination, suprapubic discomfort, but no flank pain, no nausea, no vomiting, patient was having intermittent episodes of chills and low- grade fever with a temp of 100.1. This was noted upon his initial presentation to the ER. Patient was also noted to be tachycardic, slightly hypoxic requiring supplemental O2, he had leukocytosis with left shift, and he had normal lactic acid, normal liver enzymes, urine cultures are pending, patient was admitted with the impression of urinary tract infection and sepsis. Patient did not require any pressors, he was given IV fluids, and he was also placed on antibiotics empirically for urinary tract infection/sepsis. Considering his pulmonary history, this consult was initiated. Patient had no cough, no wheezing, no shortness of breath, and no chest pain.chest x-ray on this admission showed mostly by basilaratelectasis, doubt pneumonia.although pneumonia is not entirely ruled out but clinically felt to be less likely. Patient was reevaluated today on 05/19/23, continues to have intermittent fever and chills, remains on antibiotics as per infectious disease he is now on Rocephin and vancomycin his urine cultures are showing gram-negative bacilli his blood cultures are also showing gram-negative bacilli. Final identification and sensitivity is pending. Pulmonary status seems to be relatively stable no cough no wheezing no shortness of breath. WBC count is improving down to 17.5 hemoglobin is 11.4 electrolytes are normal renal profile is normal Progress note dated 05/20/2023. 72-year-old male admitted a few days ago, with suspected sepsis. The patient has evidence of Escherichia coli urinary tract infection, and Escherichia coli bacteremia. He remains on Rocephin. He's on room air. He's not receiving any IV fluids. He was sitting upright in bed. No new labs today other than a creatinine 0.68, down from 0.79. His glucose was 100. Progress note dated 05/21/2023. 72-year-old male seen today in room 365. He is being treated for E. coli bacteremia, and E. coli urinary tract infection. He remains on Rocephin. He is on room air. He's not requiring any IV fluids. No new labs today as yet, other than a glucose of 132. Objective - Vital Signs Vital signs: Vital Signs Temp 97.8 F 05/21/23 04:00 Pulse 67 05/21/23 04:00 Resp 18 05/21/23 04:00 BP 139/86 05/21/23 04:00 Pulse Ox 98 05/21/23 04:00 FiO2 Intake & Output 05/20/23 05/21/23 05/21/23 18:59 06:59 18:59 Intake Total 0 Output Total 2 Balance 0 -2 Intake: Oral 0 Output: Stool 2 Other: Voiding Method Toilet Urinal - Exam No acute distress, oriented 3. Currently on room air. Saturations are 98 %. HEENT examination is grossly unremarkable. Neck supple. Full range of motion. No adenopathy thyromegaly or neck vein distention. Cardiovascular examination reveals regular rhythm rate. S1-S2 normal. No S3 or S4. No discernible murmur noted. Heart rate 67 bpm. Blood pressure is 139/86. Lungs reveal clear breath sounds. Breath sounds are equal bilaterally. No adventitious lung sounds including wheezes rhonchi or crackles. Abdomen soft bowel sounds are heard. No masses or tenderness. Extremities are intact. No cyanosis clubbing or edema. Skin is without rash or lesion. Neurologic examination is brief but nonfocal. - Labs CBC & Chem 7: 05/19/23 12:54 05/20/23 08:11 Labs: Abnormal Lab Results - Last 24 Hours (Table) 05/20/23 05/20/23 05/20/23 Range/Units 11:25 16:50 19:48 POC Glucose (mg/dL) 179 H 167 H 178 H (70-110) mg/dL Ur Leukocyte Esterase (Negative) Urine Mucus (None) /hpf 05/20/23 05/21/23 Range/Units 23:28 05:59 POC Glucose (mg/dL) 132 H (70-110) mg/dL Ur Leukocyte Esterase Moderate H (Negative) Urine Mucus Rare H (None) /hpf Microbiology - Last 24 Hours (Table) 05/18/23 07:25 Blood Culture - Preliminary Blood 05/17/23 05:15 Blood Culture - Preliminary Blood Assessment and Plan Assessment: Escherichia coli urinary tract infection as well as bacteremia. Severe COPD, which is currently stable. Remote history of pulmonary embolism. History of CVA. Degenerative joint disease. Status post volume reduction surgery, for bullous emphysema. Type 2 diabetes mellitus. Plan: Plan dated 05/20/2023. The patient appears to be doing relatively well. Apparently last night, he had elevated blood pressure with headache. A computed tomography scan of the brain was showing no acute abnormality. Clinically, his blood pressure is now stable. He continues on Rocephin for Escherichia coli urinary tract infection and bacteremia. The patient typically sees and will ask him to see him in consultation. Additional recommendations and suggestions are forthcoming. Prognosis is guarded. Plan dated 05/21/2023. The patient appears to be doing well. He had an uneventful night. Vital signs are stable. He's currently on room air, and not receiving any IV fluids. He remains on Rocephin for his Escherichia coli urinary tract infection, and Escherichia coli bacteremia. He has been seen by Dr. Osuna in urology. Labs, x-rays, and medications are reviewed. The patient's prognosis remains guarded. We will continue to follow make recommendations along the way. Time with Patient: Less than 30
[2023-05-21] MEDS: MORPHINE SULFATE 2 MG/ML SYRINGE IVP PRN (10:17)
[2023-05-21 10:21] LABS: HCT 35.4 % (39.0-53.0); HGB 11.7 gm/dL (13.0-17.5); Hypochromasia Slight; MCH 27.4 pg (25.0-35.0); MCHC 33.1 g/dL (31.0-37.0); MCV 82.6 fL (80.0-100.0); Mean Platelet Volume 7.8; Platelet Count 205 k/uL (150-450); RBC 4.28 m/uL (4.30-5.90); RDW 14.6 % (11.5-15.5); WBC 7.8 k/uL (3.8-10.6)
[2023-05-21 10:24] LABS: ALT 31 U/L (4-49); AST 25 U/L (17-59); African American GFR (CKD) >90 (>60 ml/min/1.73 sqM); Albumin 2.6 g/dL (3.5-5.0); Alkaline Phosphatase 200 U/L (38-126); Anion Gap 6 mmol/L; Blood Urea Nitrogen 8 mg/dL (9-20); C Reactive Protein 5.3 mg/dL (<1.0); Carbon Dioxide 25 mmol/L (22-30); Chloride 106 mmol/L (98-107); Glucose 133 mg/dL (74-99); Non-African American GFR(CKD) >90 (>60 ml/min/1.73 sqM); Potassium 3.6 mmol/L (3.5-5.1); Sodium 137 mmol/L (137-145); Total Bilirubin 0.4 mg/dL (0.2-1.3); Total Protein 5.1 g/dL (6.3-8.2)
--- NOTE | 2023-05-21 10:53 | P.PN ---
Subjective Progress Note Date: 05/21/23 Hospital Course: 72-year-old male with PMH of COPD, chronic respiratory failure, history of CVA, diabetes mellitus, chronic leg pain, adrenaline sufficiency, history of pulmonary embolus, hypertension, restless leg syndrome that presents to the ED for fever as high as 104 Fahrenheit, chills and difficulty urinating. In the ED, he was noted to be febrile with T-max of 100.1 Fahrenheit, tachycardic with heart rate of 118, hypotensive with BP as low as 81/52 saturating 87 % on room air. CBC showed a leukocytosis of 18. CMP showed sodium of 136, BUN of 24, glucose 163, albumin of 3.4. Magnesium was 1.3. Lactic acid was 2.6. Urinalysis showed large leukocyte esterase. EKG showed sinus tachycardia. Chest x-ray showed basilar increased density. He was subsequently started on vancomycin and Zosyn and admitted for sepsis likely related to UTI. Vancomycin and Zosyn was discontinued, patient was started on meropenem. Blood cultures came back positive for E. coli. ID was consulted. Patient is now on Rocephin. Urology also consulted. Patient has also been intermittently hypertensive. Subjective: Patient seen and examined at bedside. No acute events overnight. Still has intermittent hypertension overnight, without any significant symptoms. Does have dysuria and increased urinary frequency still. Pertinent positives and negatives as discussed above, a complete review of systems was performed and all other systems are negative. Vitals Signs Reviewed. General: nontoxic, no distress, appears at stated age Derm: warm, dry Head: atraumatic, normocephalic, symmetric Eyes: EOMI, no lid lag, anicteric sclera Mouth: no lip lesion, mucus membranes moist Cardiovascular: S1S2 reg, no murmur Lungs: CTA bilateral, no rhonchi, no rales , no accessory muscle use Abdominal: soft, nontender to palpation, no guarding, no appreciable organomegaly Ext: no gross muscle atrophy, trace peripheral edema, no contractures Neuro: CN II-XI grossly intact, no focal neuro deficits Psych: Alert, oriented, appropriate affect Data Reviewed Today: Pertinent Labs: WBC 7.8, Hemoglobin 11.7, potassium 3.6, creatinine 0.7, blood sugars range between 132-178, CRP 5.3, urinalysis repeat shows moderate leukocyte esterase Assessment and Plan: Active: Acute bacterial prostatitis E. coli bacteremia Uncontrolled hypertension -Urology note reviewed, will likely need for long-term antibiotics for 21 days -Continue IV ceftriaxone -ID following -Pulmonology note reviewed, continue antibiotics -For hypertension, patient already on losartan, hydrochlorothiazide started Resolved: Sepsis, hypomagnesemia, lactic acidosis Chronic: COPD status post lung reduction surgery Chronic hypoxic respiratory failure History of CVA Diabetes mellitus Restless leg syndrome Acute renal insufficiency History of PE DVT ppx: Eliquis Code status: Full code Anticipated discharge place: Pending clinical course Anticipated discharge time: Pending clinical course Objective - Vital Signs Vital signs: Vital Signs Temp 98.7 F 05/21/23 08:00 Pulse 69 05/21/23 08:00 Resp 18 05/21/23 08:00 BP 163/90 05/21/23 08:00 Pulse Ox 92 L 05/21/23 08:00 FiO2 Intake & Output 05/20/23 05/21/23 05/21/23 18:59 06:59 18:59 Intake Total 0 Output Total 2 Balance 0 -2 Intake: Oral 0 Output: Stool 2 Other: Voiding Method Toilet Urinal - Labs CBC & Chem 7: 05/21/23 09:05 05/21/23 09:05 Labs: Abnormal Lab Results - Last 24 Hours (Table) 05/20/23 05/20/23 05/20/23 Range/Units 11:25 16:50 19:48 RBC (4.30-5.90) m/uL Hgb (13.0-17.5) gm/dL Hct (39.0-53.0) % BUN (9-20) mg/dL Glucose (74-99) mg/dL POC Glucose (mg/dL) 179 H 167 H 178 H (70-110) mg/dL Calcium (8.4-10.2) mg/dL Alkaline Phosphatase (38-126) U/L C-Reactive Protein (<1.0) mg/dL Total Protein (6.3-8.2) g/dL Albumin (3.5-5.0) g/dL Ur Leukocyte Esterase (Negative) Urine Mucus (None) /hpf 05/20/23 05/21/23 05/21/23 Range/Units 23:28 05:59 09:05 RBC 4.28 L (4.30-5.90) m/uL Hgb 11.7 L (13.0-17.5) gm/dL Hct 35.4 L (39.0-53.0) % BUN (9-20) mg/dL Glucose (74-99) mg/dL POC Glucose (mg/dL) 132 H (70-110) mg/dL Calcium (8.4-10.2) mg/dL Alkaline Phosphatase (38-126) U/L C-Reactive Protein (<1.0) mg/dL Total Protein (6.3-8.2) g/dL Albumin (3.5-5.0) g/dL Ur Leukocyte Esterase Moderate H (Negative) Urine Mucus Rare H (None) /hpf 05/21/23 Range/Units 09:05 RBC (4.30-5.90) m/uL Hgb (13.0-17.5) gm/dL Hct (39.0-53.0) % BUN 8 L (9-20) mg/dL Glucose 133 H (74-99) mg/dL POC Glucose (mg/dL) (70-110) mg/dL Calcium 8.0 L (8.4-10.2) mg/dL Alkaline Phosphatase 200 H (38-126) U/L C-Reactive Protein 5.3 H (<1.0) mg/dL Total Protein 5.1 L (6.3-8.2) g/dL Albumin 2.6 L (3.5-5.0) g/dL Ur Leukocyte Esterase (Negative) Urine Mucus (None) /hpf Microbiology - Last 24 Hours (Table) 05/18/23 07:25 Blood Culture - Preliminary Blood 05/17/23 05:15 Blood Culture - Preliminary Blood
[2023-05-21 11:29] LABS: Lymphocytes # (M) 1.17 k/uL (1.0-4.8); Monocytes # (M) 1.01 k/uL (0-1.0); Neutrophils # (M) 5.62 k/uL (1.3-7.7); Neutrophils % (M) 72 %; Nucleated Red Blood Cells 0 /100 WBC (0-0); Total Cells Counted 100
[2023-05-21 11:30] LABS: Poikilocytosis (M) Present
[2023-05-21 11:54] LABS: Glucose,Whole Blood 241 mg/dL (70-110)
--- NOTE | 2023-05-21 12:39 | P.PN ---
Subjective Progress Note Date: 05/21/23 Principal diagnosis: E. coli urinary tract infection and bacteremia Patient is a 72-year-old male with a past medical history significant for diabetes mellitus hypertension hyperlipidemia history of prostate disorder pneumonia and PE presenting to the hospital for evaluation of chills and he has complaining of dysuria and urgency , patient did have features of sepsis on admission positive UA concerning for UTI that subsequently came back positive ultrasound has been negative for any hydronephrosis. On today's evaluation that is 05/21/2023, patient is afebrile today, patient is breathing comfortably on room air, the patient denies any chest pain or shortness of breath , the patient did have a mild cough with minimal sputum production, patient denies any nausea no vomiting no abdominal pain or any urinary symptoms have improved, no new symptoms , Objective - Vital Signs Vital signs: Vital Signs Temp 98.7 F 05/21/23 08:00 Pulse 69 05/21/23 08:00 Resp 18 05/21/23 08:00 BP 163/90 05/21/23 08:00 Pulse Ox 92 L 05/21/23 08:00 FiO2 Intake & Output 05/20/23 05/21/23 05/21/23 18:59 06:59 18:59 Intake Total 0 240 Output Total 2 Balance 0 -2 240 Intake: Oral 0 240 Output: Stool 2 Other: Voiding Method Toilet Urinal - Exam GENERAL DESCRIPTION: An elderly male lying in bed in no distress RESPIRATORY SYSTEM: Unlabored breathing , decreased breath sounds at bases HEART: S1 S2 regular rate and rhythm , ABDOMEN: Soft , no tenderness EXTREMITIES: No edema feet - Labs CBC & Chem 7: 05/21/23 09:05 05/21/23 09:05 Labs: Abnormal Lab Results - Last 24 Hours (Table) 05/20/23 05/20/23 05/20/23 Range/Units 11:25 16:50 19:48 RBC (4.30-5.90) m/uL Hgb (13.0-17.5) gm/dL Hct (39.0-53.0) % BUN (9-20) mg/dL Glucose (74-99) mg/dL POC Glucose (mg/dL) 179 H 167 H 178 H (70-110) mg/dL Calcium (8.4-10.2) mg/dL Alkaline Phosphatase (38-126) U/L C-Reactive Protein (<1.0) mg/dL Total Protein (6.3-8.2) g/dL Albumin (3.5-5.0) g/dL Ur Leukocyte Esterase (Negative) Urine Mucus (None) /hpf 05/20/23 05/21/23 05/21/23 Range/Units 23:28 05:59 09:05 RBC 4.28 L (4.30-5.90) m/uL Hgb 11.7 L (13.0-17.5) gm/dL Hct 35.4 L (39.0-53.0) % BUN (9-20) mg/dL Glucose (74-99) mg/dL POC Glucose (mg/dL) 132 H (70-110) mg/dL Calcium (8.4-10.2) mg/dL Alkaline Phosphatase (38-126) U/L C-Reactive Protein (<1.0) mg/dL Total Protein (6.3-8.2) g/dL Albumin (3.5-5.0) g/dL Ur Leukocyte Esterase Moderate H (Negative) Urine Mucus Rare H (None) /hpf 05/21/23 Range/Units 09:05 RBC (4.30-5.90) m/uL Hgb (13.0-17.5) gm/dL Hct (39.0-53.0) % BUN 8 L (9-20) mg/dL Glucose 133 H (74-99) mg/dL POC Glucose (mg/dL) (70-110) mg/dL Calcium 8.0 L (8.4-10.2) mg/dL Alkaline Phosphatase 200 H (38-126) U/L C-Reactive Protein 5.3 H (<1.0) mg/dL Total Protein 5.1 L (6.3-8.2) g/dL Albumin 2.6 L (3.5-5.0) g/dL Ur Leukocyte Esterase (Negative) Urine Mucus (None) /hpf Microbiology - Last 24 Hours (Table) 05/18/23 07:25 Blood Culture - Preliminary Blood 05/17/23 05:15 Blood Culture - Preliminary Blood Assessment and Plan (1) E coli bacteremia Current Visit: Yes Status: Acute Code(s): R78.81 - BACTEREMIA; B96.20 - UNSP ESCHERICHIA COLI THE CAUSE OF DISEASES CLASSD [id number] SNOMED Code(s): 332252909310 (2) Sepsis secondary to UTI Current Visit: Yes Status: Acute Code(s): A41.9 - SEPSIS, UNSPECIFIED ORGA NISM; N39.0 - URINARY TRACT INFECTION, SITE NOT SPECIFIED SNOMED Code(s): 299648180 Plan: 1patient presented to the hospital with sepsis in this patient who did have a fever tachycardia elevated white count patient did have predominantly urinary symptoms source is likely complicated UTI patient did have a history of possible urinary outflow obstruction from prostate enlargement, patient also have some respiratory symptoms with evidence of basilar infiltrate underlying pneumonia less likely but not entirely excluded 2-patient did have ultrasound of the bladder and kidney that was negative for hydronephrosis, 3-patient did have a positive blood culture with an E. coli that is sensitive pathogen, repeat blood culture have been negative so for 4patient did have CT of abdominal pelvis yesterday did not show any evidence of abscess 5we will continue patient on Rocephin 2 g daily while inpatient finishing therapy with oral Cipro 3 weeks Family the bedside questions were answered Dictation was produced using [employer] dictation software. please excuse any grammatical, word or spelling errors. Time with Patient: Less than 30
[2023-05-21] MEDS: hydroCHLOROthiazide 25 MG TAB PO SCH (12:42)
[2023-05-21 16:39] LABS: Glucose,Whole Blood 203 mg/dL (70-110)
[2023-05-21 19:54] LABS: Glucose,Whole Blood 210 mg/dL (70-110)
[2023-05-21] MEDS: ATORVASTATIN 40 MG TAB PO SCH (21:00)
[2023-05-21] MEDS: GABAPENTIN 400 MG CAP PO SCH (21:01)
[2023-05-21] MEDS: traZODone HCL 100 MG TAB PO PRN (21:05)
[2023-05-21] MEDS: ALPRAZolam 1 MG TAB PO PRN (21:05)
[2023-05-22 06:21] LABS: Glucose,Whole Blood 150 mg/dL (70-110)
[2023-05-22] MEDS: INSULIN ASPART (NovoLOG) 100 UNIT/ML VIAL SQ SCH ×2 (06:23→12:06)
[2023-05-22] MEDS: PANTOPRAZOLE 40 MG TABLET PO SCH (06:26)
[2023-05-22] MEDS: APIXABAN 5 MG TAB PO SCH (08:52)
[2023-05-22] MEDS: hydroCHLOROthiazide 25 MG TAB PO SCH (08:52)
[2023-05-22] MEDS: HYDROCORTISONE 10 MG TAB PO SCH (08:52)
[2023-05-22] MEDS: GABAPENTIN 300 MG CAP PO SCH (08:53)
[2023-05-22] MEDS: EZETIMIBE 10 MG TAB PO SCH (08:54)
[2023-05-22] MEDS: METOPROLOL TARTRATE 50 MG TAB PO SCH (08:54)
[2023-05-22] MEDS: CLOPIDOGREL 75 MG TAB PO SCH (08:54)
[2023-05-22] MEDS: LOSARTAN 25 MG TAB PO SCH (08:54)
[2023-05-22] MEDS: HYDROcodone/APAP 7.5-325MG 1 EACH TAB PO SCH (08:54)
[2023-05-22] MEDS: IPRATROPIUM-ALBUTEROL 3 ML NEB INHALATION SCH ×2 (09:08→11:28)
[2023-05-22 11:06] VITALS: TEMP 98
--- NOTE | 2023-05-22 11:16 | P.DS ---
Providers Date of admission: 05/17/23 04:48 Expected date of discharge: 05/22/23 Attending physician: Katrin Rose MD Consults: 05/17/23 04:47 Consult Physician Routine Consulting Provider: Toni Hoffman Consult Reason/Comments: uti sepsis Do you want consulting provider notified?: Yes 05/17/23 16:49 Consult Physician Routine Consulting Provider: Clark Gastelum Consult Reason/Comments: Pna, SOB, extensive pulmonary history. Do you want consulting provider notified?: Yes 05/20/23 09:29 Consult Physician Routine Consulting Provider: Chris Osuna Consult Reason/Comments: UTI, known to pt. Do you want consulting provider notified?: Yes Primary care physician: Dyana Giordano Hospital Course: Discharge Diagnosis: Acute bacterial prostatitis E. coli bacteremia Uncontrolled hypertension COPD, not in exacerbation, status post lung reduction surgery Chronic hypoxic respiratory failure History of CVA Diabetes mellitus Restless leg syndrome Adrenal insufficiency History of PE Hospital Course: 72-year-old male with PMH of COPD, chronic respiratory failure, history of CVA, diabetes mellitus, chronic leg pain, adrenaline sufficiency, history of pulmonar y embolus, hypertension, restless leg syndrome that presents to the ED for fever as high as 104 Fahrenheit, chills and difficulty urinating. In the ED, he was noted to be febrile with T-max of 100.1 Fahrenheit, tachycardic with heart rate of 118, hypotensive with BP as low as 81/52 saturating 87 % on room air. CBC showed a leukocytosis of 18. CMP showed sodium of 136, BUN of 24, glucose 163, albumin of 3.4. Magnesium was 1.3. Lactic acid was 2.6. Urinalysis showed large leukocyte esterase. EKG showed sinus tachycardia. Chest x-ray showed basilar increased density. He was subsequently started on vancomycin and Zosyn and admitted for sepsis likely related to UTI. Vancomycin and Zosyn was discontinued, patient was started on meropenem. Blood cultures came back positive for E. coli. ID was consulted. Patient then transition to Rocephin. Urology also consulted. No acute interventions. Patient will likely have prostatitis. Patient discharged on oral ciprofloxacin for 21 days. Patient has also been intermittently hypertensive. Hydrochlorothiazide also added. Patient seen and examined at bedside. Vital signs reviewed and stable. General: nontoxic, no distress, appears at stated age Derm: warm, dry Head: atraumatic, normocephalic, symmetric Eyes: EOMI, no lid lag, anicteric sclera Mouth: no lip lesion, mucus membranes moist Cardiovascular: S1S2 reg, no murmur Lungs: CTA bilateral, no rhonchi, no rales , no accessory muscle use Abdominal: soft, nontender to palpation, no guarding, no appreciable organomegaly Ext: no gross muscle atrophy, no edema, no contractures Neuro: CN II-XI grossly intact, no focal neuro deficits Psych: Alert, oriented, appropriate affect A total of 33 minutes of time were spent preparing this complex discharge summary. Patient was discharged on 05/22/23 at 9:54. Patient Condition at Discharge: Stable Plan - Discharge Summary Discharge Rx Participant: No New Discharge Prescriptions: New hydroCHLOROthiazide [Hydrodiuril] 25 mg PO DAILY #30 tab Ciprofloxacin HCl [Cipro] 500 mg PO Q12HR 21 Days #42 tab Continue Gabapentin 1,200 mg PO HS ALPRAZolam [Xanax] 1 mg PO HS Fluticasone/Umeclidin/Vilanter [Trelegy Ellipta 100-62.5-25] 1 puff INHALATION RT-DAILY HYDROcodone/APAP 7.5-325MG [[place] 7.5-325] 1 tab PO TID PRN PRN Reason: Pain Losartan [Cozaar] 50 mg PO DAILY #90 tab Apixaban [Eliquis] 5 mg PO DAILY Ezetimibe [Zetia] 10 mg PO DAILY Atorvastatin [Lipitor] 40 mg PO HS traZODone HCL [Desyrel] 200 mg PO HS Butalb/APAP/Caff 50-325-40Mg [Fioricet 50-325-40] 1 tab PO Q4H PRN PRN Reason: Headache Hydrocortisone [Cortef] 30 mg PO DAILY Gabapentin 600 mg PO DAILY Pantoprazole Sodium [Protonix] 40 mg PO BID Nitroglycerin Sl Tabs [Nitrostat] 0.4 mg SUBLINGUAL Q5M PRN #100 tab PRN Reason: Chest Pain rOPINIRole HCL [Requip] 0.5 mg PO BID Clopidogrel Bisulfate [Clopidogrel] 75 mg PO DAILY Metoprolol Tartrate [Lopressor] 25 mg PO BID metFORMIN HCL 1,000 mg PO BID Empagliflozin [Jardiance] 10 mg PO DAILY Fluticasone Propion/Salmeterol [[place] 250-50 Inhub] 1 puff INHALATION RT-BID PRN PRN Reason: Shortness Of Breath Budesonide/Formoterol Fumarate [Symbicort 80-4.5 Mcg Inhaler] 2 puff INHALATION RT-BID PRN PRN Reason: Shortness Of Breath Discharge Medication List Gabapentin 1,200 mg PO HS 04/09/16 [History] ALPRAZolam [Xanax] 1 mg PO HS 03/25/20 [History] Fluticasone/Umeclidin/Vilanter [Trelegy Ellipta 100-62.5-25] 1 puff INHALATION RT-DAILY 10/25/21 [History] HYDROcodone/APAP 7.5-325MG [[place] 7.5-325] 1 tab PO TID PRN 10/25/21 [History] Hydrocortisone [Cortef] 30 mg PO DAILY 04/19/22 [History] Gabapentin 600 mg PO DAILY 09/17/22 [History] Pantoprazole Sodium [Protonix] 40 mg PO BID 09/17/22 [History] Losartan [Cozaar] 50 mg PO DAILY #90 tab 09/18/22 [Rx] Nitroglycerin Sl Tabs [Nitrostat] 0.4 mg SUBLINGUAL Q5M PRN #100 tab 09/18/22 [Rx] Apixaban [Eliquis] 5 mg PO DAILY 05/17/23 [History] Atorvastatin [Lipitor] 40 mg PO HS 05/17/23 [History] Budesonide/Formoterol Fumarate [Symbicort 80-4.5 Mcg Inhaler] 2 puff INHALATION RT-BID PRN 05/17/23 [History] Butalb/APAP/Caff 50-325-40Mg [Fioricet 50-325-40] 1 tab PO Q4H PRN 05/17/23 [History] Clopidogrel Bisulfate [Clopidogrel] 75 mg PO DAILY 05/17/23 [History] Empagliflozin [Jardiance] 10 mg PO DAILY 05/17/23 [History] Ezetimibe [Zetia] 10 mg PO DAILY 05/17/23 [History] Fluticasone Propion/Salmeterol [[place] 250-50 Inhub] 1 puff INHALATION RT-BID PRN 05/17/23 [History] Metoprolol Tartrate [Lopressor] 25 mg PO BID 05/17/23 [History] metFORMIN HCL 1,000 mg PO BID 05/17/23 [History] rOPINIRole HCL [Requip] 0.5 mg PO BID 05/17/23 [History] traZODone HCL [Desyrel] 200 mg PO HS 05/17/23 [History] Ciprofloxacin HCl [Cipro] 500 mg PO Q12HR 21 Days #42 tab 05/22/23 [Rx] hydroCHLOROthiazide [Hydrodiuril] 25 mg PO DAILY #30 tab 05/22/23 [Rx] Follow up Appointment(s)/Referral(s): Clark Gastelum MD [STAFF PHYSICIAN] - 1 Week Dyana Giordano MD [Primary Care Provider] - 1-2 days Chris Osuna MD [STAFF PHYSICIAN] - 2 Weeks Toni Hoffman MD [STAFF PHYSICIAN] - 1 Week Patient Instructions/Handouts: Prostatitis (DC), Bacteremia (DC) Activity/Diet/Wound Care/Special Instructions: Please see your PCP and urologist. Discharge Disposition: HOME SELF-CARE
[2023-05-22 11:57] LABS: Glucose,Whole Blood 223 mg/dL (70-110)
[2023-05-22 12:19] VITALS: BP 135/89; PULSE 54; RESP 18
--- NOTE | 2023-05-22 12:36 | P.PN ---
Subjective Progress Note Date: 05/22/23 Principal diagnosis: UTI with sepsis The patient states that his dysuria is finally improving. He remains afebrile. Objective - Vital Signs Vital signs: Vital Signs Temp 98.0 F 05/22/23 08:00 Pulse 54 L 05/22/23 12:00 Resp 18 05/22/23 12:00 BP 135/89 05/22/23 12:00 Pulse Ox 93 L 05/22/23 12:00 FiO2 Intake & Output 05/21/23 05/22/23 05/22/23 18:59 06:59 18:59 Intake Total 720 240 Balance 720 240 Intake: Oral 720 240 Other: Voiding Method Toilet Toilet Urinal Urinal # Voids 4 1 - Constitutional General appearance: Present: average body habitus, cooperative - Psychiatric Psychiatric: Present: A&O x's 3 - Labs CBC & Chem 7: 05/21/23 09:05 05/21/23 09:05 Labs: Abnormal Lab Results - Last 24 Hours (Table) 05/21/23 05/21/23 05/22/23 Range/Units 16:35 19:53 06:19 POC Glucose (mg/dL) 203 H 210 H 150 H (70-110) mg/dL 05/22/23 Range/Units 11:40 POC Glucose (mg/dL) 223 H (70-110) mg/dL Microbiology - Last 24 Hours (Table) 05/21/23 15:34 Gram Stain - Preliminary Sputum 05/18/23 07:25 Blood Culture - Preliminary Blood Assessment and Plan Assessment: Laboratory studies are consistent with a diagnosis of E. coli UTI with sepsis. Clinical picture is suggestive of acute prostatitis. He has responded well to IV antibiotic therapy. Plan: Agree with discharge home with a 21 day course of ciprofloxacin. He will follow up with me in the office in 2 weeks.
--- NOTE | 2023-05-22 14:28 | PN ---
PROGRESS NOTE DATE OF SERVICE: 05/22/2023 SUBJECTIVE: A 72-year-old male seen today in room 365. The patient is currently not requiring any supplemental oxygen or IV fluids. Clinically, he is feeling much better. He is being treated for Escherichia coli bacteremia and Escherichia coli urinary tract infection. He remains on Rocephin. No new laboratory data other than a glucose of 150. Blood and urine cultures from 05/17, were positive for Escherichia coli. PHYSICAL EXAMINATION: VITAL SIGNS: Current vital signs include temperature 98 degrees, heart rate 54, respiratory rate 16, blood pressure 135/89 with mean of 104 and room air saturation of 93%. Appears in no acute distress. HEENT: Grossly unremarkable. NECK: Supple. Full range of motion. No adenopathy. Neck veins are flat. CARDIOVASCULAR: Reveals regular rhythm and rate. S1, S2 normal. There is no S3, S4, or murmur. LUNGS: Reveal clear breath sounds. No wheezes, rhonchi, or crackles. Room air saturation 93%. ABDOMEN: Soft. Bowel sounds are heard. No masses or tenderness. EXTREMITIES: Intact. No cyanosis, clubbing, or edema. SKIN: Without rash. NEUROLOGIC: Examination is brief but nonfocal. ASSESSMENT: 1. Escherichia coli urinary tract infection as well as Escherichia coli bacteremia. 2. Severe chronic obstructive pulmonary disease, currently stable. 3. Remote history of pulmonary embolism. 4. History of cerebrovascular accident. 5. Degenerative joint disease. 6. Status post volume reduction surgery for bullous emphysema. 7. Type 2 diabetes mellitus. PLAN: The patient is doing well. He is on room air. He is not requiring any IV fluids. Vital signs are very stable. Labs, x-rays, and medications are all reviewed. Prognosis is thought to be generally good. He will follow up with 1 of my partners in the office. MMODL / IJN: [id number] /
== END 2023-05-22 12:40 | disposition home or self-care (01) | DRG 872 ==
LOC: EC 03:28 → 3SCARD 04:48
PROVIDERS: ADMIT Family Medicine; ATTEND Family Medicine
DX: A41.51 Sepsis due to Escherichia coli [E. coli] (principal); E87.20 Acidosis, unspecified; J96.11 Chronic respiratory failure with hypoxia; E27.40 Unspecified adrenocortical insufficiency; N39.0 Urinary tract infection, site not specified; N41.0 Acute prostatitis; I95.9 Hypotension, unspecified; E11.9 Type 2 diabetes mellitus without complications; J43.9 Emphysema, unspecified; Z20.822 Contact with and (suspected) exposure to COVID-19; I10 Essential (primary) hypertension; G25.81 Restless legs syndrome; E83.42 Hypomagnesemia; E78.5 Hyperlipidemia, unspecified; N40.0 Benign prostatic hyperplasia without lower urinary tract symptoms; F43.10 Post-traumatic stress disorder, unspecified; G89.29 Other chronic pain; M54.42 Lumbago with sciatica, left side; M54.41 Lumbago with sciatica, right side; K21.9 Gastro-esophageal reflux disease without esophagitis; G43.909 Migraine, unspecified, not intractable, without status migrainosus; K57.90 Diverticulosis of intestine, part unspecified, without perforation or abscess without bleeding; N28.9 Disorder of kidney and ureter, unspecified; M19.90 Unspecified osteoarthritis, unspecified site; I25.2 Old myocardial infarction; H91.90 Unspecified hearing loss, unspecified ear; Z99.81 Dependence on supplemental oxygen; Z79.01 Long term (current) use of anticoagulants; Z79.51 Long term (current) use of inhaled steroids; Z79.02 Long term (current) use of antithrombotics/antiplatelets; Z79.84 Long term (current) use of oral hypoglycemic drugs; Z79.899 Other long term (current) drug therapy; Z87.440 Personal history of urinary (tract) infections; Z87.891 Personal history of nicotine dependence; Z86.711 Personal history of pulmonary embolism; Z86.73 Personal history of transient ischemic attack (TIA), and cerebral infarction without residual deficits; Z95.5 Presence of coronary angioplasty implant and graft
CPT/HCPCS: 36415; 70450; 71045; 74177; 76770; 80048; 80053; 81001; 82565; 83605; 83735; 84145; 85025; 85027; 86140; 87040; 87070; 87077; 87086; 87186; 87205; 87502; 87635; 93005; 94640; 94760; 96360; 99291

== ENCOUNTER → 2023-06-15 | Outpatient (CLI) | payer MEDICARE ==
[2023-06-15 23:15] LABS: Basophils # (A) 0.07 X 10*3/uL (0.00-0.10); Basophils % (A) 0.6 %; Eosinophils # (A) 0.14 X 10*3/uL (0.04-0.35); Eosinophils % (A) 1.2 %; HCT 42.2 % (39.6-50.0); HGB 12.7 d/dL (13.0-17.0); Lymphocytes # (A) 1.21 X 10*3/uL (0.90-5.00); Lymphocytes % (A) 10.4 %; MCHC 30.1 d/dL (32.0-37.0); MCV 83.2 FL (80.0-97.0); Mean Platelet Volume 9.8 FL (9.5-12.2); Monocytes # (A) 0.66 X 10*3/uL (0.20-1.00); Monocytes % (A) 5.7 %; NRBC Per 100 WBC 0 X 10*3/uL (0.00-0.01); Neutrophils # (A) 9.52 X 10*3/uL (1.80-7.70); Neutrophils % (A) 81.4 %; Platelet Count 254 X 10*3/uL (140-440); RBC 5.07 X 10*6/uL (4.40-5.60); RDW 16.4 % (11.5-14.5); WBC 11.68 X 10*3/uL (4.50-10.00)
[2023-06-15 23:38] LABS: % Iron Saturation 8.27 (15.00-50.00); ALT 15 U/L (10-49); AST 15 U/L (14-35); Albumin 3.7 d/dL (3.8-4.9); Albumin/Globulin Ratio 1.95 Ratio (1.60-3.17); Alkaline Phosphatase 75 U/L (41-126); Blood Urea Nitrogen 16.6 mg/dL (9.0-27.0); Calcium 9.4 mg/dL (8.7-10.3); Chloride 109 mmol/L (96-109); Globulin 1.9 d/dL (1.6-3.3); Glucose 131 mg/dL (70-110); Iron 31 UG/DL (65-175); Potassium 4.2 mmol/L (3.5-5.5); Sodium 145 mmol/L (135-145); Total Bilirubin 0.3 mg/dL (0.3-1.2); Total Iron Binding Capacity 375 UG/DL (228-460); Total Protein 5.6 d/dL (6.2-8.2)
[2023-06-15 23:39] LABS: Ferritin 19.6 ng/mL (22.0-322.0); T4, Free (Free Thyroxine) 1.32 ng/dL (0.80-1.80)
== END | disposition home or self-care (01) ==
LOC: LABWHC1 11:19
PROVIDERS: ATTEND Internal Medicine
DX: E55.9 Vitamin D deficiency, unspecified (principal); E27.40 Unspecified adrenocortical insufficiency; N39.0 Urinary tract infection, site not specified; E11.65 Type 2 diabetes mellitus with hyperglycemia; N40.1 Benign prostatic hyperplasia with lower urinary tract symptoms; R53.82 Chronic fatigue, unspecified
CPT/HCPCS: 36415; 80053; 82306; 82607; 82728; 83036; 83540; 83550; 84153; 84439; 84443; 85025

== ENCOUNTER 2023-06-29 19:29 | Emergency (ER) | payer MEDICARE ==
[2023-06-29 19:33] VITALS: RESP 16; TEMP 99
[2023-06-29 20:05] LABS: Anisocytosis Slight; Basophils % (A) 0 %; Eosinophils # (A) 0.2 k/uL (0-0.7); Eosinophils % (A) 2 %; HCT 43.7 % (39.0-53.0); HGB 13.7 gm/dL (13.0-17.5); Hypochromasia Slight; Lymphocytes # (A) 1.8 k/uL (1.0-4.8); Lymphocytes % (A) 13 %; MCH 25.9 pg (25.0-35.0); MCHC 31.4 g/dL (31.0-37.0); MCV 82.5 fL (80.0-100.0); Mean Platelet Volume 7.1; Monocytes # (A) 0.6 k/uL (0-1.0); Monocytes % (A) 4 %; Neutrophils # (A) 11.5 k/uL (1.3-7.7); Neutrophils % (A) 80 %; Platelet Count 280 k/uL (150-450); RDW 17.1 % (11.5-15.5); WBC 14.3 k/uL (3.8-10.6)
[2023-06-29 20:14] LABS: INR 0.9 (<1.2); Partial Thromboplastin Time 22.9 sec (22.0-30.0); Prothrombin Time 9.6 sec (9.0-12.0)
[2023-06-29 20:16] VITALS: PULSE 68
[2023-06-29 20:19] LABS: ALT 16 U/L (4-49); AST 21 U/L (17-59); African American GFR (CKD) >90 (>60 ml/min/1.73 sqM); Albumin 3.7 g/dL (3.5-5.0); Alkaline Phosphatase 66 U/L (38-126); Anion Gap 7 mmol/L; Blood Urea Nitrogen 19 mg/dL (9-20); Calcium 9.1 mg/dL (8.4-10.2); Carbon Dioxide 24 mmol/L (22-30); Chloride 108 mmol/L (98-107); Glucose 87 mg/dL (74-99); Non-African American GFR(CKD) 88 (>60 ml/min/1.73 sqM); Potassium 4.2 mmol/L (3.5-5.1); Sodium 139 mmol/L (137-145); Total Bilirubin 0.4 mg/dL (0.2-1.3); Total Protein 6.6 g/dL (6.3-8.2)
[2023-06-29 20:21] LABS: Bacteria,Urine Rare /hpf
[2023-06-29 20:28] LABS: Appearance,Urine Bloody (Clear); Color,Urine Dark Red; WBC,Urine >182 /hpf (0-5)
[2023-06-29 20:29] LABS: RBC,Urine >182 /hpf (0-5)
--- NOTE | 2023-06-29 20:38 | ED ---
General Adult HPI - General Chief complaint: Urogenital Stated complaint: blood in urine Time Seen by Provider: 06/29/23 19:32 Source: patient Mode of arrival: EMS Limitations: no limitations - History of Present Illness Initial comments: This is 73-year-old male with a past medical history including previous cardiac stents currently on Eliquis and Plavix presents emergency department for hematuria via EMS. It was reported that the patient had an episode hematuria today without any acute pain and therefore called EMS to be evaluated. The ab ent did not have any difficulties with urination. The patient swiped did state that previously, the patient had severe sepsis from a UTI and therefore treated at risk having an infection not being looked at. The patient denied any trauma and denied any recent sexual intercourse. The patient was resting in bed comfortably without any acute distress or abdominal pain. The patient denied any lightheadedness or dizziness. - Related Data Home Medications Medication Instructions Recorded Confirmed Gabapentin 1,200 mg PO HS 04/09/16 05/17/23 ALPRAZolam [Xanax] 1 mg PO HS 03/25/20 05/17/23 Fluticasone/Umeclidin/Vilanter 1 puff INHALATION RT-DAILY 10/25/21 05/17/23 [Trelegy Ellipta 100-62.5-25] HYDROcodone/APAP 7.5-325MG [[place] 1 tab PO TID PRN 10/25/21 05/17/23 7.5-325] Hydrocortisone [Cortef] 30 mg PO DAILY 04/19/22 05/17/23 Gabapentin 600 mg PO DAILY 09/17/22 05/17/23 Pantoprazole Sodium [Protonix] 40 mg PO BID 09/17/22 05/17/23 Apixaban [Eliquis] 5 mg PO DAILY 05/17/23 05/17/23 Atorvastatin [Lipitor] 40 mg PO HS 05/17/23 05/17/23 Budesonide/Formoterol Fumarate 2 puff INHALATION RT-BID PRN 05/17/23 05/17/23 [Symbicort 80-4.5 Mcg Inhaler] Butalb/APAP/Caff 50-325-40Mg 1 tab PO Q4H PRN 05/17/23 05/17/23 [Fioricet 50-325-40] Clopidogrel Bisulfate [Clopidogrel] 75 mg PO DAILY 05/17/23 05/17/23 Empagliflozin [Jardiance] 10 mg PO DAILY 05/17/23 05/17/23 Ezetimibe [Zetia] 10 mg PO DAILY 05/17/23 05/17/23 Fluticasone Propion/Salmeterol 1 puff INHALATION RT-BID PRN 05/17/23 05/17/23 [[place] 250-50 Inhub] Metoprolol Tartrate [Lopressor] 25 mg PO BID 05/17/23 05/17/23 metFORMIN HCL 1,000 mg PO BID 05/17/23 05/17/23 rOPINIRole HCL [Requip] 0.5 mg PO BID 05/17/23 05/17/23 traZODone HCL [Desyrel] 200 mg PO HS 05/17/23 05/17/23 Previous Rx's Medication Instructions Recorded Losartan [Cozaar] 50 mg PO DAILY #90 tab 09/18/22 Nitroglycerin Sl Tabs [Nitrostat] 0.4 mg SUBLINGUAL Q5M PRN #100 tab 09/18/22 Ciprofloxacin HCl [Cipro] 500 mg PO Q12HR 21 Days #42 tab 05/22/23 hydroCHLOROthiazide [Hydrodiuril] 25 mg PO DAILY #30 tab 05/22/23 Allergies Allergy/AdvReac Type Severity Reaction Status Date / Time No Known Allergies Allergy Verified 05/17/23 08:02 Review of Systems ROS Statement: Those systems with pertinent positive or pertinent negative responses have been documented in the HPI. ROS Other: All systems not noted in ROS Statement are negative. Past Medical History Past Medical History: COPD, CVA/TIA, Diabetes Mellitus, GERD/Reflux, Hearing Disorder / Deafness, Hyperlipidemia, Myocardial Infarction (DE), Musculoskeletal Disorder, Osteoarthritis (OA), Pneumonia, Prostate Disorder, Pulmonary Embolus (PE), Respiratory Disorder Additional Past Medical History / Comment(s): PE/RLL pneumonia/acute hypoxic failure. Portal bollous emphysema. low back pain, bilat sciatica; RLS; migraines, TIA , BPH, hearing aids, , diverticulosis. onset diabetes 08/11/19, multiple pneumothorax, O2 @2-4L [place] prn. Adrenal insufficiency Last Myocardial Infarction Date:: 12/30/2019 History of Any Multi-Drug Resistant Organisms: None Reported Past Surgical History: Heart Catheterization With Stent, Hernia Repair, Orthopedic Surgery, Prostate Surgery, Tonsillectomy Additional Past Surgical History / Comment(s): Septoplasty/ESSS, EGD, colonoscopy with benign polyp, R inguinal hernia, umbilical hernia, pain clinic procedures, atilio fundloplication. upper bilat lung lobes removed 05/2021, prostate surgery 3 weeks ago. Past Anesthesia/Blood Transfusion Reactions: No Reported Reaction Additional Past Anesthesia/Blood Transfusion Reaction / Comment(s): no known family hx Date of Last Stent Placement:: Past Psychological History: PTSD Smoking Status: Former smoker Past Alcohol Use History: None Reported Past Drug Use History: None Reported - Past Family History Father History Unknown: Yes Family Medical History: No Reported History, Unable to Obtain Additional Family Medical History / Comment(s): Pt was adopted. Mother History Unknown: Yes Additional Family Medical History / Comment(s): Pt was adopted. Daughter(s) Additional Family Medical History / Comment(s): Children do not have any major medical problems. No history of blood clots. General Exam Limitations: no limitations General appearance: alert, in no apparent distress Head exam: Present: atraumatic, normocephalic, normal inspection Eye exam: Present: normal appearance, PERRL Pupils: Present: normal accommodation ENT exam: Present: normal exam, normal oropharynx, mucous membranes moist Neck exam: Present: normal inspection, full ROM Respiratory exam: Present: normal lung sounds bilaterally Cardiovascular Exam: Present: regular rate, normal rhythm, normal heart sounds GI/Abdominal exam: Present: soft, normal bowel sounds Extremities exam: Present: normal inspection, full ROM Back exam: Present: normal inspection, full ROM Neurological exam: Present: alert, oriented X3, CN II-XII intact Psychiatric exam: Present: normal affect, normal mood Skin exam: Present: warm, dry Course Vital Signs 06/29/23 06/29/23 19:30 20:15 Temperature 99 F Pulse Rate 87 68 Respiratory 16 16 Rate Blood Pressure 168/114 152/100 O2 Sat by Pulse 95 98 Oximetry Medical Decision Making - Medical Decision Making Was pt. sent in by a medical professional or institution (, PA, DIPPER MACHINE OPERATOR, urgent care, hospital, or residential...) When possible be specific @ -No Did you speak to anyone other than the patient for history (EMS, parent, family, police, friend...)? What history was obtained from this source @ -Yes, patient's is at the bedside and stated that the patient was acting at baseline without any acute distress noted. Did you review nursing and triage notes (agree or disagree)? Why? @ -I reviewed and agree with nursing and triage notes Were old charts reviewed (outside hosp., previous admission, EMS record, old EKG, old radiological studies, urgent care reports/EKG's, residential records)? Report findings @ -No old charts were reviewed Differential Diagnosis (chest pain, altered mental status, abdominal pain women, abdominal pain men, vaginal bleeding, weakness, fever, dyspnea, syncope, headache, dizziness, GI bleed, back pain, seizure, CVA, palpatations, mental health)? @ -Painless hematuria, UTI, sepsis EKG interpreted by me (3pts min.). @ -None X-rays interpreted by me (1pt min.). @ -None done CT interpreted by me (1pt min.). @ -None done U/S interpreted by me (1pt. min.). @ -None done What testing was considered but not performed or refused? (CT, X-rays, U/S, labs)? Why? @ -None What meds were considered but not given or refused? Why? @ -None Did you discuss the management of the patient with other professionals (professionals i.e. , PA, DIPPER MACHINE OPERATOR, lab, RT, psych nurse, social human services assistants, pipeline operator, teacher, retirement officer, pillowcase cleaner)? Give summary @ -No Was smoking cessation discussed for >3mins.? @ -No Was critical care preformed (if so, how long)? @ -No Were there social determinants of health that impacted care today? How? (Homel essness, low income, unemployed, alcoholism, drug addiction, transportation, low edu. Level, literacy, decrease access to med. care, fdc, rehab)? @ -No Was there de-escalation of care discussed even if they declined (Discuss DNR or withdrawal of care, Hospice)? DNR status @ -No What co-morbidities impacted this encounter? (DM, HTN, Smoking, COPD, CAD, Cancer, CVA, ARF, Chemo, Hep., AIDS, mental health diagnosis, sleep apnea, morbid obesity)? @ -Previous cardiac stents on Eliquis and Plavix Was patient admitted / discharged? Hospital course, mention meds given and route, prescriptions, significant lab abnormalities, going to OR and other pertinent info. @ -The patient was seen and evaluated emergency department. Physical exam, the patient was resting in bed without any acute distress. Vital signs admission were stable. Laboratory workup was obtained and was consistent with hematuria. There was also mild elevation of white blood cell count of 14 however there were no other signs of sepsis at this time. The patient denied of any dysuria or increased urinary frequency. The patient was otherwise resting in bed comfortably and due to the patient's painless hematuria could be discharged safely to follow-up with his urologist as an outpatient. The patient was told of this and was agreeable to this. All of his questions were answered appropriately. The patient was discharged home in stable condition with his . Undiagnosed new problem with uncertain prognosis? @ -No Drug Therapy requiring intensive monitoring for toxicity (Heparin, Nitro, Insulin, Cardizem)? @ -No Were any procedures done? @ -No Diagnosis/symptom? @ -Painless hematuria Acute, or Chronic, or Acute on Chronic? @ -Acute Uncomplicated (without systemic symptoms) or Complicated (systemic symptoms)? @ -Uncomplicated Side effects of treatment? @ -No Exacerbation, Progression, or Severe Exacerbation? @ -No Poses a threat to life or bodily function? How? (Chest pain, [place], DE, pneumonia, PE, COPD, DKA, ARF, appy, cholecystitis, CVA, Diverticulitis, Homicidal, Suicidal, threat to staff... and all critical care pts) @ -No - Lab Data Result diagrams: 06/29/23 19:54 06/29/23 19:54 Lab Results 06/29/23 06/29/23 06/29/23 Range/Units 19:54 19:54 19:54 WBC 14.3 H (3.8-10.6) k/uL RBC 5.30 (4.30-5.90) m/uL Hgb 13.7 (13.0-17.5) gm/dL Hct 43.7 (39.0-53.0) % MCV 82.5 (80.0-100.0) fL MCH 25.9 (25.0-35.0) pg MCHC 31.4 (31.0-37.0) g/dL RDW 17.1 H (11.5-15.5) % Plt Count 280 (150-450) k/uL MPV 7.1 Neutrophils % 80 % Lymphocytes % 13 % Monocytes % 4 % Eosinophils % 2 % Basophils % 0 % Neutrophils # 11.5 H (1.3-7.7) k/uL Lymphocytes # 1.8 (1.0-4.8) k/uL Monocytes # 0.6 (0-1.0) k/uL Eosinophils # 0.2 (0-0.7) k/uL Basophils # 0.0 (0-0.2) k/uL Hypochromasia Slight Anisocytosis Slight PT 9.6 (9.0-12.0) sec INR 0.9 (<1.2) APTT 22.9 (22.0-30.0) sec Sodium (137-145) mmol/L Potassium (3.5-5.1) mmol/L Chloride (98-107) mmol/L Carbon Dioxide (22-30) mmol/L Anion Gap mmol/L BUN (9-20) mg/dL Creatinine (0.66-1.25) mg/dL Est GFR (CKD-EPI)AfAm (>60 ml/min/1.73 sqM) Est GFR (CKD-EPI)NonAf (>60 ml/min/1.73 sqM) Glucose (74-99) mg/dL Calcium (8.4-10.2) mg/dL Total Bilirubin (0.2-1.3) mg/dL AST (17-59) U/L ALT (4-49) U/L Alkaline Phosphatase (38-126) U/L Total Protein (6.3-8.2) g/dL Albumin (3.5-5.0) g/dL Urine Color Dark Red Urine Appearance Bloody (Clear) Urine RBC >182 H (0-5) /hpf Urine WBC >182 H (0-5) /hpf Urine Bacteria Rare H (None) /hpf 06/29/23 Range/Units 19:54 WBC (3.8-10.6) k/uL RBC (4.30-5.90) m/uL Hgb (13.0-17.5) gm/dL Hct (39.0-53.0) % MCV (80.0-100.0) fL MCH (25.0-35.0) pg MCHC (31.0-37.0) g/dL RDW (11.5-15.5) % Plt Count (150-450) k/uL MPV Neutrophils % % Lymphocytes % % Monocytes % % Eosinophils % % Basophils % % Neutrophils # (1.3-7.7) k/uL Lymphocytes # (1.0-4.8) k/uL Monocytes # (0-1.0) k/uL Eosinophils # (0-0.7) k/uL Basophils # (0-0.2) k/uL Hypochromasia Anisocytosis PT (9.0-12.0) sec INR (<1.2) APTT (22.0-30.0) sec Sodium 139 (137-145) mmol/L Potassium 4.2 (3.5-5.1) mmol/L Chloride 108 H (98-107) mmol/L Carbon Dioxide 24 (22-30) mmol/L Anion Gap 7 mmol/L BUN 19 (9-20) mg/dL Creatinine 0.80 (0.66-1.25) mg/dL Est GFR (CKD-EPI)AfAm >90 (>60 ml/min/1.73 sqM) Est GFR (CKD-EPI)NonAf 88 (>60 ml/min/1.73 sqM) Glucose 87 (74-99) mg/dL Calcium 9.1 (8.4-10.2) mg/dL Total Bilirubin 0.4 (0.2-1.3) mg/dL AST 21 (17-59) U/L ALT 16 (4-49) U/L Alkaline Phosphatase 66 (38-126) U/L Total Protein 6.6 (6.3-8.2) g/dL Albumin 3.7 (3.5-5.0) g/dL Urine Color Urine Appearance (Clear) Urine RBC (0-5) /hpf Urine WBC (0-5) /hpf Urine Bacteria (None) /hpf Disposition Clinical Impression: Painless hematuria Disposition: HOME SELF-CARE Condition: Stable Instructions (If sedation given, give patient instructions): Hematuria (ED) Is patient prescribed a controlled substance at d/c from ED?: No Referrals: Dyana Giordano MD [Primary Care Provider] - 1-2 days Chris Osuna MD [STAFF PHYSICIAN] - 1-2 days Time of Disposition: 20:30
[2023-06-29 20:58] VITALS: BP 150/100
== END 2023-06-29 20:58 | disposition home or self-care (01) ==
LOC: EC 19:29
DX: R31.9 Hematuria, unspecified (principal); E11.9 Type 2 diabetes mellitus without complications; E78.5 Hyperlipidemia, unspecified; I25.2 Old myocardial infarction; J44.9 Chronic obstructive pulmonary disease, unspecified; K21.9 Gastro-esophageal reflux disease without esophagitis; Z86.73 Personal history of transient ischemic attack (TIA), and cerebral infarction without residual deficits; M19.90 Unspecified osteoarthritis, unspecified site; Z79.84 Long term (current) use of oral hypoglycemic drugs; Z79.01 Long term (current) use of anticoagulants; Z79.51 Long term (current) use of inhaled steroids; Z79.899 Other long term (current) drug therapy; Z87.891 Personal history of nicotine dependence
CPT/HCPCS: 36415; 80053; 81001; 85025; 85610; 85730; 87077; 87086; 87186; 99283

== ENCOUNTER 2023-07-02 20:39 | Emergency (ER) | payer MEDICARE ==
[2023-07-02 20:47] VITALS: RESP 18
--- NOTE | 2023-07-02 21:03 | ED ---
General Adult HPI - General Source: patient, RN notes reviewed Mode of arrival: ambulatory Limitations: no limitations <Carissa Sheth - Last Filed: 07/02/23 21:02> - History of Present Illness -: days(s) Location: pelvis Radiation: non-radiation Severity scale (1-10): 7 Quality: sharp Consistency: constant Improves with: none Worsens with: none Associated Symptoms: loss of appetite Treatments Prior to Arrival: none <Dewey Romeo - Last Filed: 07/08/23 23:29> - General Chief complaint: Urogenital Stated complaint: ABD Pain Time Seen by Provider: 07/02/23 21:02 - History of Present Illness Initial comments: 73-year-old male presents the emergency department the chief complaint of. Patient reports that recently had blood in his urine. He reports anticoagulant use. (Carissa Sheth) This is a 73-year-old male to the emergency department today for evaluation of abdominal tenderness flank pain dysuria with significant blood in his urine recent severe urinary tract infection with sepsis. Patient was also bacteremic at the time. Denies recent fevers. Patient again does have blood in the urine with difficulty decreased urination. Patient is uncircumcised (Dewey Romeo) - Related Data Home Medications Medication Instructions Recorded Confirmed Gabapentin 1,200 mg PO HS 04/09/16 05/17/23 ALPRAZolam [Xanax] 1 mg PO HS 03/25/20 05/17/23 Fluticasone/Umeclidin/Vilanter 1 puff INHALATION RT-DAILY 10/25/21 05/17/23 [Trelegy Ellipta 100-62.5-25] HYDROcodone/APAP 7.5-325MG [Pierre Part 1 tab PO TID PRN 10/25/21 05/17/23 7.5-325] Hydrocortisone [Cortef] 30 mg PO DAILY 04/19/22 05/17/23 Gabapentin 600 mg PO DAILY 09/17/22 05/17/23 Pantoprazole Sodium [Protonix] 40 mg PO BID 09/17/22 05/17/23 Apixaban [Eliquis] 5 mg PO DAILY 05/17/23 05/17/23 Atorvastatin [Lipitor] 40 mg PO HS 05/17/23 05/17/23 Budesonide/Formoterol Fumarate 2 puff INHALATION RT-BID PRN 05/17/23 05/17/23 [Symbicort 80-4.5 Mcg Inhaler] Butalb/APAP/Caff 50-325-40Mg 1 tab PO Q4H PRN 05/17/23 05/17/23 [Fioricet 50-325-40] Clopidogrel Bisulfate [Clopidogrel] 75 mg PO DAILY 05/17/23 05/17/23 Empagliflozin [Jardiance] 10 mg PO DAILY 05/17/23 05/17/23 Ezetimibe [Zetia] 10 mg PO DAILY 05/17/23 05/17/23 Fluticasone Propion/Salmeterol 1 puff INHALATION RT-BID PRN 05/17/23 05/17/23 [Wixela 250-50 Inhub] Metoprolol Tartrate [Lopressor] 25 mg PO BID 05/17/23 05/17/23 metFORMIN HCL 1,000 mg PO BID 05/17/23 05/17/23 rOPINIRole HCL [Requip] 0.5 mg PO BID 05/17/23 05/17/23 traZODone HCL [Desyrel] 200 mg PO HS 05/17/23 05/17/23 Previous Rx's Medication Instructions Recorded Losartan [Cozaar] 50 mg PO DAILY #90 tab 09/18/22 Nitroglycerin Sl Tabs [Nitrostat] 0.4 mg SUBLINGUAL Q5M PRN #100 tab 09/18/22 Ciprofloxacin HCl [Cipro] 500 mg PO Q12HR 21 Days #42 tab 05/22/23 hydroCHLOROthiazide [Hydrodiuril] 25 mg PO DAILY #30 tab 05/22/23 Amoxic-Pot Clav 875-125Mg 1 tab PO Q12HR #20 tablet 07/03/23 [Augmentin 875-125] Allergies Allergy/AdvReac Type Severity Reaction Status Date / Time No Known Allergies Allergy Verified 07/02/23 20:47 Review of Systems ROS Other: All systems not noted in ROS Statement are negative. <Carissa Sheth - Last Filed: 07/02/23 21:02> ROS Other: All systems not noted in ROS Statement are negative. <Dewey Romeo - Last Filed: 09/11/23 23:29> ROS Statement: Those systems with pertinent positive or pertinent negative responses have been documented in the HPI. Past Medical History Past Medical History: COPD, CVA/TIA, Diabetes Mellitus, GERD/Reflux, Hearing Disorder / Deafness, Hyperlipidemia, Myocardial Infarction ([place]), Musculoskeletal Disorder, Osteoarthritis (OA), Pneumonia, Prostate Disorder, Pulmonary Embolus (PE), Respiratory Disorder Additional Past Medical History / Comment(s): PE/RLL pneumonia/acute hypoxic failure. Portal bollous emphysema. low back pain, bilat sciatica; RLS; migraines, TIA , BPH, hearing aids, , diverticulosis. onset diabetes 08/11/19, multiple pneumothorax, O2 @2-4L [place] prn. Adrenal insufficiency Last Myocardial Infarction Date:: 12/30/2019 History of Any Multi-Drug Resistant Organisms: None Reported Past Surgical History: Heart Catheterization With Stent, Hernia Repair, Orthopedic Surgery, Prostate Surgery, Tonsillectomy Additional Past Surgical History / Comment(s): Septoplasty/ESSS, EGD, colonoscopy with benign polyp, R inguinal hernia, umbilical hernia, pain clinic procedures, atilio fundloplication. upper bilat lung lobes removed 05/2021, prostate surgery 3 weeks ago. Past Anesthesia/Blood Transfusion Reactions: No Reported Reaction Additional Past Anesthesia/Blood Transfusion Reaction / Comment(s): no known family hx Date of Last Stent Placement:: Past Psychological History: PTSD Smoking Status: Former smoker Past Alcohol Use History: None Reported Past Drug Use History: None Reported - Past Family History Father History Unknown: Yes Family Medical History: No Reported History, Unable to Obtain Additional Family Medical History / Comment(s): Pt was adopted. Mother History Unknown: Yes Additional Family Medical History / Comment(s): Pt was adopted. Daughter(s) Additional Family Medical History / Comment(s): Children do not have any major medical problems. No history of blood clots. <Carissa Sheth - Last Filed: 07/02/23 21:02> General Exam Limitations: no limitations <Carissa Sheth - Last Filed: 07/02/23 21:02> General appearance: alert, in no apparent distress, anxious Head exam: Present: atraumatic, normocephalic, normal inspection Eye exam: Present: normal appearance, PERRL, EOMI. Absent: scleral icterus, conjunctival injection, periorbital swelling ENT exam: Present: normal exam, mucous membranes moist Neck exam: Present: normal inspection. Absent: tenderness, meningismus, lymphadenopathy Respiratory exam: Present: normal lung sounds bilaterally. Absent: respiratory distress, wheezes, rales, rhonchi, stridor Cardiovascular Exam: Present: regular rate, normal rhythm, normal heart sounds. Absent: systolic murmur, diastolic murmur, rubs, gallop, clicks GI/Abdominal exam: Present: soft, normal bowel sounds. Absent: distended, tenderness, guarding, rebound, rigid Extremities exam: Present: normal inspection, full ROM, normal capillary refill. Absent: tenderness, pedal edema, joint swelling, calf tenderness Back exam: Present: normal inspection Neurological exam: Present: alert, oriented X3, CN II-XII intact Psychiatric exam: Present: normal affect, normal mood Skin exam: Present: warm, dry, intact, normal color. Absent: rash <Dewey Romeo - Last Filed: 07/08/23 23:29> - General Exam Comments Initial Comments: Visual Physical Exam Vital signs reviewed General: Well-appearing, nontoxic, no acute distress. Head: Normocephalic, atraumatic Eyes: PERRLA, EOMI ENT: Airway patent Chest: Nonlabored breathing Skin: No visual rash, normal skin tone Neuro: Alert and oriented 3 Musculoskeletal: No gross abnormalities I performed the quick note portion of this exam, verbal signature Carissa Sheth PA-C (Carissa Sheth) Course <Dewey Romeo - Last Filed: 07/08/23 23:29> Vital Signs 07/02/23 07/03/23 20:43 01:32 Temperature 98.8 F 97.6 F Pulse Rate 79 57 L Respiratory 18 18 Rate Blood Pressure 152/92 166/89 O2 Sat by Pulse 94 L 95 Oximetry - Reevaluation(s) Reevaluation #1: 07/03/23 00:38 Medical record is reviewed (Dewey Romeo) Reevaluation #2: 07/03/23 00:38 Patient symptoms are improved (Dewey Romeo) Reevaluation #3: 07/03/23 00:38 Patient informed results questions answered (Dewey Romeo) Reevaluation #4: 07/03/23 00:38 Was pt. sent in by a medical professional or institution ([facility], RUG RENOVATOR, urgent care, hospital, or senior living...) When possible be specific @ -no Did you speak to anyone other than the patient for history (EMS, parent, family, police, friend...)? What history was obtained from this source @ -no Did you review nursing and triage notes (agree or disagree)? Why? @ -agree Are old charts reviewed (outside hosp., previous admission, EMS record, old EKG, old radiological studies, urgent care reports/EKG's, senior living records)? Report findings @ -yes Differential Diagnosis (chest pain, altered mental status, abdominal pain women, abdominal pain men, vaginal bleeding, weakness, fever, dyspnea, syncope, headache, dizziness, GI bleed, back pain, seizure, CVA, palpatations, mental health, musculoskeletal)? @ -prior EKG interpreted by me (3pts min.). @ -no X-rays interpreted by me (1pt min.). @ -no CT interpreted by me (1pt min.). @ -yes U/S interpreted by me (1pt. min.). @ -no What testing was considered but not performed or refused? (CT, X-rays, U/S, labs)? Why? @ -none What meds were considered but not given or refused? Why? @ -none Did you discuss the management of the patient with other professionals (professionals i.e. [facility], RUG RENOVATOR, lab, RT, psych nurse, medical social consultant, emergency medcl emt, teacher, co founder and chief strategy officer, case management coordinator)? Give summary @ -no Was smoking cessation discussed for >3mins.? @ -no Was critical care preformed (if so, how long)? @ -no Were there social determinants of health that impacted care today? How? (Homelessness, low income, unemployed, alcoholism, drug addiction, transportation, low edu. Level, literacy, decrease access to med. care, fpc, rehab)? @ -none Was there de-escalation of care discussed even if they declined (Discuss DNR or withdrawal of care, Hospice)? DNR status @ -no What co-morbidities impacted this encounter? (DM, HTN, Smoking, COPD, CAD, Cancer, CVA, ARF, Chemo, Hep., AIDS, mental health diagnosis, sleep apnea, morbid obesity)? @ -none Was patient admitted / discharged? Hospital course, mention meds given and route, prescriptions, significant lab abnormalities, going to OR and other pertinent info. @ - 73 male who is uncircumcised presents to the emergency department for evaluation of significant abdominal pain with dysuria and hematuria. Patient does have urinary tract infection will be placed on antibiotics and can be disch arged home Discharge Undiagnosed new problem with uncertain prognosis? @ -no Drug Therapy requiring intensive monitoring for toxicity (Heparin, Nitro, Insulin, Cardizem)? @ -no Were any procedures done? @ -no Diagnosis/symptom? @ -UTI men, hematuria Acute, or Chronic, or Acute on Chronic? @ -Acute Uncomplicated (without systemic symptoms) or Complicated (systemic symptoms)? @ -Complicated Side effects of treatment? @ -no Exacerbation, Progression, or Severe Exacerbation? @ -exacerbation Poses a threat to life or bodily function? How? (Chest pain, [place], [place], pneumonia, PE, COPD, DKA, ARF, appy, cholecystitis, CVA, Diverticulitis, Homicidal, Suicidal, threat to staff... and all critical care pts) @ -no (Dewey Romeo) Reevaluation #5: 07/03/23 00:38 Differential Abdominal Pain Men: Appendicitis, cholecystitis, diverticulosis, ischemic bowel, pancreatitis, hepatitis, UTI, gastroenteritis, AAA, incarcerated hernia, bowel obstruction, constipation, inflammatory bowel, hepatitis, peptic ulcer disease, splenic infarction, perforated viscus, testicular torsion, this is not meant to be an all-inclusive list (Dewey Romeo) Medical Decision Making - Lab Data Result diagrams: 07/02/23 21:18 07/02/23 21:18 - Radiology Data Radiology results: report reviewed (CT abdomen and pelvis is positive for cystitis), image reviewed <Dewey Romeo - Last Filed: 07/08/23 23:29> - Medical Decision Making 73 male who is uncircumcised presents to the emergency department for evaluation of significant abdominal pain with dysuria and hematuria. Patient does have urinary tract infection will be placed on antibiotics and can be discharged home (Dewey Romeo) - Lab Data Lab Results 0907/02/23 07/02/23 Range/Units 21:18 21:18 21:18 WBC 13.5 H (3.8-10.6) k/uL RBC 5.65 (4.30-5.90) m/uL Hgb 14.7 (13.0-17.5) gm/dL Hct 47.4 (39.0-53.0) % MCV 84.0 (80.0-100.0) fL MCH 26.0 (25.0-35.0) pg MCHC 31.0 (31.0-37.0) g/dL RDW 17.3 H (11.5-15.5) % Plt Count 252 (150-450) k/uL MPV 7.6 Neutrophils % 81 % Lymphocytes % 12 % Monocytes % 5 % Eosinophils % 1 % Basophils % 0 % Neutrophils # 10.9 H (1.3-7.7) k/uL Lymphocytes # 1.6 (1.0-4.8) k/uL Monocytes # 0.7 (0-1.0) k/uL Eosinophils # 0.2 (0-0.7) k/uL Basophils # 0.0 (0-0.2) k/uL Hypochromasia Moderate Anisocytosis Slight PT 9.7 (9.0-12.0) sec INR 0.9 (<1.2) APTT 24.9 (22.0-30.0) sec Sodium (137-145) mmol/L Potassium (3.5-5.1) mmol/L Chloride (98-107) mmol/L Carbon Dioxide (22-30) mmol/L Anion Gap mmol/L BUN (9-20) mg/dL Creatinine (0.66-1.25) mg/dL Est GFR (CKD-EPI)AfAm (>60 ml/min/1.73 sqM) Est GFR (CKD-EPI)NonAf (>60 ml/min/1.73 sqM) Glucose (74-99) mg/dL Calcium (8.4-10.2) mg/dL Total Bilirubin (0.2-1.3) mg/dL AST (17-59) U/L ALT (4-49) U/L Alkaline Phosphatase (38-126) U/L Total Protein (6.3-8.2) g/dL Albumin (3.5-5.0) g/dL Urine Color Yellow Urine Appearance Turbid (Clear) Urine pH 5.5 (5.0-8.0) Ur Specific [place] 1.029 (1.001-1.035) Urine Protein 1+ H (Negative) Urine Glucose (UA) 4+ H (Negative) Urine Ketones Negative (Negative) Urine Blood Large H (Negative) Urine Nitrite Positive (Negative) Urine Bilirubin Negative (Negative) Urine Urobilinogen <2.0 (<2.0) mg/dL Ur Leukocyte Esterase Large H (Negative) Urine RBC >182 H (0-5) /hpf Urine WBC >182 H (0-5) /hpf Urine WBC Clumps Few H (None) /hpf Urine Mucus Rare H (None) /hpf 07/02/23 Range/Units 21:18 WBC (3.8-10.6) k/uL RBC (4.30-5.90) m/uL Hgb (13.0-17.5) gm/dL Hct (39.0-53.0) % MCV (80.0-100.0) fL MCH (25.0-35.0) pg MCHC (31.0-37.0) g/dL RDW (11.5-15.5) % Plt Count (150-450) k/uL MPV Neutrophils % % Lymphocytes % % Monocytes % % Eosinophils % % Basophils % % Neutrophils # (1.3-7.7) k/uL Lymphocytes # (1.0-4.8) k/uL Monocytes # (0-1.0) k/uL Eosinophils # (0-0.7) k/uL Basophils # (0-0.2) k/uL Hypochromasia Anisocytosis PT (9.0-12.0) sec INR (<1.2) APTT (22.0-30.0) sec Sodium 140 (137-145) mmol/L Potassium 3.5 (3.5-5.1) mmol/L Chloride 108 H (98-107) mmol/L Carbon Dioxide 26 (22-30) mmol/L Anion Gap 6 mmol/L BUN 15 (9-20) mg/dL Creatinine 0.89 (0.66-1.25) mg/dL Est GFR (CKD-EPI)AfAm >90 (>60 ml/min/1.73 sqM) Est GFR (CKD-EPI)NonAf 84 (>60 ml/min/1.73 sqM) Glucose 138 H (74-99) mg/dL Calcium 9.0 (8.4-10.2) mg/dL Total Bilirubin 0.6 (0.2-1.3) mg/dL AST 20 (17-59) U/L ALT 16 (4-49) U/L Alkaline Phosphatase 84 (38-126) U/L Total Protein 6.4 (6.3-8.2) g/dL Albumin 3.7 (3.5-5.0) g/dL Urine Color Urine Appearance (Clear) Urine pH (5.0-8.0) Ur Specific [place] (1.001-1.035) Urine Protein (Negative) Urine Glucose (UA) (Negative) Urine Ketones (Negative) Urine Blood (Negative) Urine Nitrite (Negative) Urine Bilirubin (Negative) Urine Urobilinogen (<2.0) mg/dL Ur Leukocyte Esterase (Negative) Urine RBC (0-5) /hpf Urine WBC (0-5) /hpf Urine WBC Clumps (None) /hpf Urine Mucus (None) /hpf Disposition <Carissa Sheth - Last Filed: 07/02/23 21:02> Is patient prescribed a controlled substance at d/c from ED?: No Time of Disposition: 00:40 <Dewey Romeo - Last Filed: 07/08/23 23:29> Clinical Impression: UTI (urinary tract infection), Dysuria, Hematuria, Abdominal pain Disposition: HOME SELF-CARE Condition: Good Instructions (If sedation given, give patient instructions): Urinary Tract Infection in Men (ED) Prescriptions: Amoxic-Pot Clav 875-125Mg [Augmentin 875-125] 1 tab PO Q12HR #20 tablet Referrals: Dyana Giordano MD [Primary Care Provider] - 1-2 days
[2023-07-02 21:36] LABS: Appearance,Urine Turbid (Clear); Bilirubin,Urine Negative (Negative); Blood,Urine Large (Negative); Color,Urine Yellow; Glucose,Urine (UA) 4+ (Negative); Ketones,Urine Negative (Negative); Leukocyte Esterase,Urine Large (Negative); Mucus,Urine Rare /hpf; Nitrite,Urine Positive (Negative); PH, Urine 5.5 (5.0-8.0); Protein,Urine 1+ (Negative); RBC,Urine >182 /hpf (0-5); Specific Gravity,Urine 1.029 (1.001-1.035); Urobilinogen,Urine <2.0 mg/dL (<2.0); WBC,Urine >182 /hpf (0-5)
[2023-07-02 21:42] LABS: ALT 16 U/L (4-49); AST 20 U/L (17-59); African American GFR (CKD) >90 (>60 ml/min/1.73 sqM); Albumin 3.7 g/dL (3.5-5.0); Alkaline Phosphatase 84 U/L (38-126); Anion Gap 6 mmol/L; Blood Urea Nitrogen 15 mg/dL (9-20); Carbon Dioxide 26 mmol/L (22-30); Chloride 108 mmol/L (98-107); Glucose 138 mg/dL (74-99); Non-African American GFR(CKD) 84 (>60 ml/min/1.73 sqM); Potassium 3.5 mmol/L (3.5-5.1); Sodium 140 mmol/L (137-145); Total Bilirubin 0.6 mg/dL (0.2-1.3); Total Protein 6.4 g/dL (6.3-8.2)
[2023-07-02 22:01] LABS: INR 0.9 (<1.2); Partial Thromboplastin Time 24.9 sec (22.0-30.0); Prothrombin Time 9.7 sec (9.0-12.0)
[2023-07-02 22:18] LABS: Anisocytosis Slight; Basophils % (A) 0 %; Eosinophils # (A) 0.2 k/uL (0-0.7); Eosinophils % (A) 1 %; HCT 47.4 % (39.0-53.0); HGB 14.7 gm/dL (13.0-17.5); Hypochromasia Moderate; Lymphocytes # (A) 1.6 k/uL (1.0-4.8); Lymphocytes % (A) 12 %; Mean Platelet Volume 7.6; Monocytes # (A) 0.7 k/uL (0-1.0); Monocytes % (A) 5 %; Neutrophils # (A) 10.9 k/uL (1.3-7.7); Neutrophils % (A) 81 %; Platelet Count 252 k/uL (150-450); RBC 5.65 m/uL (4.30-5.90); RDW 17.3 % (11.5-15.5); WBC 13.5 k/uL (3.8-10.6)
[2023-07-02] MEDS ORDERED: SODIUM CHLORIDE 0.9% 1,000 ML IV STA (22:46)
--- NOTE | 2023-07-02 23:17 | CT ---
EXAM: CT Abdomen and Pelvis With Intravenous Contrast CLINICAL HISTORY: ITS.REASON CT Reason: urinary frequency TECHNIQUE: Axial computed tomography images of the abdomen and pelvis with intravenous contrast. CTDI is 24.1 mGy and DLP is 1263.3 mGy-cm. This CT exam was performed using one or more of the following dose reduction techniques: automated exposure control, adjustment of the mA and/or kV according to patient size, and/or use of iterative reconstruction technique. COMPARISON: CT abdomen pelvis 05/20/2023 FINDINGS: ABDOMEN: Liver: Incompletely characterized low attenuation lesion within hepatic segment 2/3 measuring 3.4 x 2.2 cm. Gallbladder and bile ducts: Unremarkable. Pancreas: Unremarkable. Spleen: Unremarkable. Adrenals: Unremarkable. Kidneys and ureters: Cortical scarring in the left kidney. Right kidney is unremarkable. No obstructing stone or hydronephrosis. Stomach and bowel: Colonic diverticulosis without diverticulitis. PELVIS: Appendix: No findings to suggest acute appendicitis. Bladder: Mild mucosal thickening within the bladder as can be seen in the setting of cystitis or related to trabeculation from chronic outlet obstruction. Punctate 2 mm stone within the bladder. Reproductive: Prostate measures 5 cm. ABDOMEN and PELVIS: Intraperitoneal space: Unremarkable. No free air. No significant fluid collection. Bones/joints: No acute fracture. Soft tissues: Unremarkable. Vasculature: Abdominal aortic aneurysm measuring 4.3 x 3.7 cm, unchanged. Lymph nodes: Unremarkable. IMPRESSION: 1. Mild mucosal thickening within the bladder as can be seen in the setting of cystitis or related to trabeculation from chronic outlet obstruction. Punctate 2 mm stone within the bladder. 2. Prostatomegaly. 3. Abdominal aortic aneurysm measuring 4.3 x 3.7 cm, unchanged. 4. Colonic diverticulosis without diverticulitis. 5. Incompletely characterized low attenuation lesion within hepatic segment 2/3 measuring 3.4 x 2.2 cm. Could be definitively characterized by MRI.
[2023-07-03] MEDS ORDERED: AMOXIC-POT CLAV 875MG STARTER PACK 2 TAB BTL PO STA (00:33)
[2023-07-03 01:36] VITALS: BP 166/89; PULSE 57; TEMP 97.6
== END 2023-07-03 01:40 | disposition home or self-care (01) ==
LOC: EC 20:39
DX: N39.0 Urinary tract infection, site not specified (principal); B96.20 Unspecified Escherichia coli [E. coli] as the cause of diseases classified elsewhere; E11.9 Type 2 diabetes mellitus without complications; E78.5 Hyperlipidemia, unspecified; I25.2 Old myocardial infarction; K21.9 Gastro-esophageal reflux disease without esophagitis; J44.9 Chronic obstructive pulmonary disease, unspecified; M19.90 Unspecified osteoarthritis, unspecified site; Z86.73 Personal history of transient ischemic attack (TIA), and cerebral infarction without residual deficits; Z87.891 Personal history of nicotine dependence; Z79.51 Long term (current) use of inhaled steroids; Z79.02 Long term (current) use of antithrombotics/antiplatelets; Z79.84 Long term (current) use of oral hypoglycemic drugs; Z79.01 Long term (current) use of anticoagulants; Z79.899 Other long term (current) drug therapy
CPT/HCPCS: 99284; 96374; 36415; 80053; 85025; 85610; 85730; 81001; 87086; 87077; 87186; 74177; J0696; Q9967

== ENCOUNTER → 2023-07-16 | Outpatient (CLI) | payer MEDICARE ==
[2023-07-17 02:24] LABS: Basophils # (A) 0.02 X 10*3/uL (0.00-0.10); Basophils % (A) 0.1 %; Eosinophils # (A) 0 X 10*3/uL (0.04-0.35); Eosinophils % (A) 0 %; HGB 14.6 d/dL (13.0-17.0); Lymphocytes # (A) 0.94 X 10*3/uL (0.90-5.00); Lymphocytes % (A) 6.7 %; MCH 26.4 pg (27.0-32.0); MCHC 31.7 d/dL (32.0-37.0); MCV 83.2 FL (80.0-97.0); Mean Platelet Volume 9.6 FL (9.5-12.2); Monocytes % (A) 7.1 %; NRBC Per 100 WBC 0 X 10*3/uL (0.00-0.01); Neutrophils # (A) 11.96 X 10*3/uL (1.80-7.70); Neutrophils % (A) 85.4 %; Platelet Count 316 X 10*3/uL (140-440); RBC 5.53 X 10*6/uL (4.40-5.60); RDW 19.6 % (11.5-14.5); WBC 14.02 X 10*3/uL (4.50-10.00)
[2023-07-17 07:33] LABS: % Iron Saturation 17.74 (15.00-50.00); ALT 10 U/L (10-49); AST 13 U/L (14-35); Alkaline Phosphatase 63 U/L (41-126); BUN/Creat Ratio 20.88 Ratio (12.00-20.00); Blood Urea Nitrogen 16.7 mg/dL (9.0-27.0); Calcium 9.5 mg/dL (8.7-10.3); Carbon Dioxide 20.4 mmol/L (21.6-31.8); Chloride 108 mmol/L (96-109); Globulin 2.1 d/dL (1.6-3.3); Glucose 124 mg/dL (70-110); Iron 69 UG/DL (65-175); Potassium 4.4 mmol/L (3.5-5.5); Sodium 143 mmol/L (135-145); Total Bilirubin 0.3 mg/dL (0.3-1.2); Total Iron Binding Capacity 389 UG/DL (228-460); Total Protein 6.1 d/dL (6.2-8.2)
== END | disposition home or self-care (01) ==
LOC: LABWHC1 15:53
PROVIDERS: ATTEND Family Medicine
DX: K21.00 Gastro-esophageal reflux disease with esophagitis, without bleeding (principal); E11.65 Type 2 diabetes mellitus with hyperglycemia; D50.9 Iron deficiency anemia, unspecified; E27.40 Unspecified adrenocortical insufficiency; R91.8 Other nonspecific abnormal finding of lung field
CPT/HCPCS: 36415; 80053; 83036; 83540; 83550; 84443; 85025

== ENCOUNTER → 2023-08-28 | Outpatient (CLI) | payer MEDICARE ==
--- NOTE | 2023-08-28 15:32 | XR ---
EXAMINATION TYPE: XR chest 2V DATE OF EXAM: 08/28/2023 3:28 PM COMPARISON: Chest radiographs from 05/17/2023 TECHNIQUE: XR chest 2V Frontal and lateral views of the chest. CLINICAL INDICATION:Male, 73 years old with history of Z87.01 PERSONAL HISTORY OF PNEUMONIA; FINDINGS: Lungs/Pleura: There is no evidence of pleural effusion, focal consolidation, or pneumothorax. Resolu tion of previously seen bibasilar airspace opacities. Pulmonary vascularity: Unremarkable. Heart/mediastinum: Cardiomediastinal silhouette is unremarkable. Musculoskeletal: No acute osseous pathology. IMPRESSION: No acute cardiopulmonary disease/process. Resolution of previously seen bibasilar airspace opacities.
== END | disposition home or self-care (01) ==
LOC: RADXRMAIN 15:15
PROVIDERS: ATTEND Family Medicine
DX: Z87.01 Personal history of pneumonia (recurrent) (principal)
CPT/HCPCS: 71046

== ENCOUNTER → 2023-09-30 | Outpatient (CLI) | payer MEDICARE | END | disposition home or self-care (01) | LOC: LABWHC1 11:18 | PROVIDERS: ATTEND Urology | DX: R97.20 Elevated prostate specific antigen [PSA] (principal) | CPT/HCPCS: 36415; 84153 ==

== ENCOUNTER 2023-10-07 10:52 | Observation (INO) | payer MEDICARE ==
--- NOTE | 2023-10-07 11:12 | ED ---
General Adult HPI - General Source: patient, RN notes reviewed Mode of arrival: ambulatory Limitations: no limitations <Funmilayo Garsia - Last Filed: 10/07/23 11:13> <Dewey Yang - Last Filed: 10/07/23 16:04> - General Chief complaint: Weakness Stated complaint: Weakness Time Seen by Provider: 10/07/23 11:10 - History of Present Illness Initial comments: 73 year old male presents to the emergency department for chief complaint of weakness x2-3 days. Positive for Covid one week ago today. He was started on Paxlovid. He states that Saturday he noticed feeling lightheaded and "drunk." He notes that at that time he was stumbling while walking. He notes that this happened again today. Patient admits to upper respiratory symptoms. He note that he feels he is having more difficulty breathing than usual. (Funmilayo Garsia) This is a 73-year-old male who presents emergency Department with a chief complaint of being off balance especially with walking. Patient states she's also noted some slurred speech since Saturday and it's been intermittent in nature. Patient states she was diagnosed with Covid 9 days ago and was started on Paxlovid. Patient denies any chest pain or shortness of breath or difficulty breathing. Patient denies any individual extremity pain. Patient states he never feels like he is passing out just like he needs to hold on when he is walking. Patient states symptoms have gotten better and worse and currently they're little bit better at this time his speech is slow according to his but not slurred this time and he does still feel slightly off balance. (Dewey Yang) - Related Data Home Medications Medication Instructions Recorded Confirmed Gabapentin 1,200 mg PO HS 04/09/16 10/07/23 ALPRAZolam [Xanax] 1 mg PO HS 03/25/20 10/07/23 Fluticasone/Umeclidin/Vilanter 1 puff INHALATION RT-DAILY 10/25/21 10/07/23 [Trelegy Ellipta 100-62.5-25] HYDROcodone/APAP 7.5-325MG [[place] 1 tab PO TID PRN 10/25/21 10/07/23 7.5-325] Hydrocortisone [Cortef] 30 mg PO DAILY 04/19/22 10/07/23 Gabapentin 600 mg PO DAILY 09/17/22 10/07/23 Pantoprazole Sodium [Protonix] 40 mg PO BID 09/17/22 10/07/23 Apixaban [Eliquis] 5 mg PO DAILY 05/17/23 10/07/23 Atorvastatin [Lipitor] 40 mg PO HS 05/17/23 10/07/23 Budesonide/Formoterol Fumarate 2 puff INHALATION RT-BID PRN 05/17/23 10/07/23 [Symbicort 80-4.5 Mcg Inhaler] Butalb/APAP/Caff 50-325-40Mg 1 tab PO Q4H PRN 05/17/23 10/07/23 [Fioricet 50-325-40] Clopidogrel Bisulfate [Clopidogrel] 75 mg PO DAILY 05/17/23 10/07/23 Empagliflozin [Jardiance] 10 mg PO DAILY 05/17/23 10/07/23 Ezetimibe [Zetia] 10 mg PO DAILY 05/17/23 10/07/23 Fluticasone Propion/Salmeterol 1 puff INHALATION RT-BID PRN 05/17/23 10/07/23 [Wixela 250-50 Inhub] Metoprolol Tartrate [Lopressor] 25 mg PO BID 05/17/23 10/07/23 metFORMIN HCL 1,000 mg PO BID 05/17/23 10/07/23 rOPINIRole HCL [Requip] 0.5 mg PO BID 05/17/23 10/07/23 traZODone HCL [Desyrel] 200 mg PO HS 05/17/23 10/07/23 Previous Rx's Medication Instructions Recorded Losartan [Cozaar] 50 mg PO DAILY #90 tab 09/18/22 Allergies Allergy/AdvReac Type Severity Reaction Status Date / Time No Known Allergies Allergy Verified 10/07/23 15:36 Review of Systems ROS Other: All systems not noted in ROS Statement are negative. <Funmilayo Garsia - Last Filed: 10/07/23 11:13> ROS Other: All systems not noted in ROS Statement are negative. <Dewey Yang - Last Filed: 10/07/23 16:04> ROS Statement: Those systems with pertinent positive or pertinent negative responses have been documented in the HPI. Past Medical History Past Medical History: COPD, CVA/TIA, Diabetes Mellitus, GERD/Reflux, Hearing Disorder / Deafness, Hyperlipidemia, Myocardial Infarction (CA), Musculoskeletal Disorder, Osteoarthritis (OA), Pneumonia, Prostate Disorder, Pulmonary Embolus (PE), Respiratory Disorder Additional Past Medical History / Comment(s): PE/RLL pneumonia/acute hypoxic failure. Portal bollous emphysema. low back pain, bilat sciatica; RLS; migraines, TIA , BPH, hearing aids, , diverticulosis. onset diabetes 08/11/19, multiple pneumothorax, O2 @2-4L NC prn. Adrenal insufficiency Last Myocardial Infarction Date:: 12/30/2019 History of Any Multi-Drug Resistant Organisms: None Reported Past Surgical History: Heart Catheterization With Stent, Hernia Repair, Orthopedic Surgery, Prostate Surgery, Tonsillectomy Additional Past Surgical History / Comment(s): Septoplasty/ESSS, EGD, colonoscopy with benign polyp, R inguinal hernia, umbilical hernia, pain clinic procedures, atilio fundloplication. upper bilat lung lobes removed 05/2021, prostate surgery 3 weeks ago. Past Anesthesia/Blood Transfusion Reactions: No Reported Reaction Additional Past Anesthesia/Blood Transfusion Reaction / Comment(s): no known family hx Date of Last Stent Placement:: Past Psychological History: PTSD Smoking Status: Former smoker Past Alcohol Use History: None Reported Past Drug Use History: None Reported - Past Family History Father History Unknown: Yes Family Medical History: No Reported History, Unable to Obtain Additional Family Medical History / Comment(s): Pt was adopted. Mother History Unknown: Yes Additional Family Medical History / Comment(s): Pt was adopted. Daughter(s) Additional Family Medical History / Comment(s): Children do not have any major medical problems. No history of blood clots. <Funmilayo Garsia - Last Filed: 10/07/23 11:13> General Exam Limitations: no limitations <Funmilayo Garsia - Last Filed: 10/07/23 11:13> <Dewey Yang - Last Filed: 10/07/23 16:04> - General Exam Comments Initial Comments: Visual Physical Exam Vital signs reviewed General: Well-appearing, nontoxic, no acute distress. Head: Normocephalic, atraumatic Eyes: PERRLA, EOMI ENT: Airway patent Chest: Nonlabored breathing Skin: No visual rash, normal skin tone Neuro: Alert and oriented 3 Musculoskeletal: No gross abnormalities (Funmilayo Garsia) GENERAL: Patient is well-developed and well-nourished. Patient is nontoxic and well- hydrated and is in mild distress. ENT: Neck is soft and supple. No significant lymphadenopathy is noted. Oropharynx is clear. Moist mucous membranes. Neck has full range of motion without eliciting any pain. EYES: The sclera were anicteric and conjunctiva were pink and moist. Extraocular movements were intact and pupils were equal round and reactive to light. Eyelids were unremarkable. PULMONARY: Unlabored respirations. Good breath sounds bilaterally. No audible rales rhonchi or wheezing was noted. CARDIOVASCULAR: There is a regular rate and rhythm without any murmurs gallops or rubs. ABDOMEN: Soft and nontender with normal bowel sounds. SKIN: Skin is clear with no lesions or rashes and otherwise unremarkable. NEUROLOGIC: Patient is alert and oriented x3. Cranial nerves II through XII are grossly intact. Motor and sensory are also intact. Normal speech, volume and content. Symmetrical smile. Cerebellar testing finger to nose is normal bilaterally. Currently NIH is 0 MUSCULOSKELETAL: Normal extremities with adequate strength and full range of motion. LYMPHATICS: No significant lymphadenopathy is noted PSYCHIATRIC: Normal psychiatric evaluation. (Dewey Yang) Course Vital Signs 10/07/23 10/07/23 10:56 11:37 Temperature 98.1 F Pulse Rate 66 Respiratory 20 18 Rate Blood Pressure 152/97 O2 Sat by Pulse 99 Oximetry Medical Decision Making <Funmilayo Garsia - Last Filed: 10/07/23 11:13> - Lab Data Result diagrams: 10/07/23 11:02 10/07/23 11:02 <Dewey Yang - Last Filed: 10/07/23 16:04> - Medical Decision Making Quick note preformed by Funmilayo Garsia PA-C (Funmilayo Garsia) Was pt. sent in by a medical professional or institution ([facility], TECHNICAL SUPPORT SPECIALIST, urgent care, hospital, or half-way...) When possible be specific @ -No Did you speak to anyone other than the patient for history (EMS, parent, family, police, friend...)? What history was obtained from this source @ - gave most of the history Did you review nursing and triage notes (agree or disagree)? Why? @ -I reviewed and agree with nursing and triage notes Were old charts reviewed (outside hosp., previous admission, EMS record, old EKG, old radiological studies, urgent care reports/EKG's, half-way records)? Report findings @ -I reviewed prior chart for lab Differential Diagnosis (chest pain, altered mental status, abdominal pain women, abdominal pain men, vaginal bleeding, weakness, fever, dyspnea, syncope, headache, dizziness, GI bleed, back pain, seizure, CVA, palpatations, mental health, musculoskeletal)? @ -Differential CVA Ischemic stroke, hemorrhagic stroke, brain tumor, atypical migraine, Wernicke's encephalopathy, seizure, multiple sclerosis, meningitis, encephalitis, hypoglycemia, Guillain-Tyler, electrolytes disturbance, myasthenia gravis.... This is not meant to be an all-inclusive list EKG interpreted by me (3pts min.). @ -As above X-rays interpreted by me (1pt min.). @ -Chest x-ray shows no acute abnormality CT interpreted by me (1pt min.). @ -CT angiogram shows a left carotid stenosis. CT of the brain shows no acute abnormality U/S interpreted by me (1pt. min.). @ -None done What testing was considered but not performed or refused? (CT, X-rays, U/S, labs)? Why? @ -None What meds were considered but not given or refused? Why? @ -None Did you discuss the management of the patient with other professionals (professionals i.e. , PA, TECHNICAL SUPPORT SPECIALIST, lab, RT, psych nurse, social studies teacher, case investigator, teacher, labor relations officer, case investigator)? Give summary @ -Spoke with Dr. ibarra agreed to admit the patient admitted the patient wrote admitting orders Was smoking cessation discussed for >3mins.? @ -No Was critical care preformed (if so, how long)? @ -No Were there social determinants of health that impacted care today? How? (Homelessness, low income, unemployed, alcoholism, drug addiction, transportation, low edu. Level, literacy, decrease access to med. care, fdc, rehab)? @ -No Was there de-escalation of care discussed even if they declined (Discuss DNR or withdrawal of care, Hospice)? DNR status @ -No What co-morbidities impacted this encounter? (DM, HTN, Smoking, COPD, CAD, Cancer, CVA, ARF, Chemo, Hep., AIDS, mental health diagnosis, sleep apnea, morbid obesity)? @ -None Was patient admitted / discharged? Hospital course, mention meds given and route, prescriptions, significant lab abnormalities, going to OR and other pertinent info. @ -Patient's CT angiogram and CT of the brain shows no acute abnormality. Dr. kay will admit the patient I admitted the patient wrote admitting orders and consult the neurology Undiagnosed new problem with uncertain prognosis? @ -No Drug Therapy requiring intensive monitoring for toxicity (Heparin, Nitro, Insulin, Cardizem)? @ -No Were any procedures done? @ -No Diagnosis/symptom? @ -TIA Acute, or Chronic, or Acute on Chronic? @ -Acute Uncomplicated (without systemic symptoms) or Complicated (systemic symptoms)? @ -default Side effects of treatment? @ -No Exacerbation, Progression, or Severe Exacerbation? @ -No Poses a threat to life or bodily function? How? (Chest pain, USA, CA, pneumonia, PE, COPD, DKA, ARF, appy, cholecystitis, CVA, Diverticulitis, Homicidal, Suicidal, threat to staff... and all critical care pts) @ -Yes this can lead to CVA with permanent morbidity (Dewey Yang) - Lab Data Lab Results 10/07/23 10/07/23 10/07/23 Range/Units 11:02 11:02 11:02 WBC 13.6 H (3.8-10.6) k/uL RBC 5.37 (4.30-5.90) m/uL Hgb 15.4 (13.0-17.5) gm/dL Hct 47.4 (39.0-53.0) % MCV 88.3 (80.0-100.0) fL MCH 28.7 (25.0-35.0) pg MCHC 32.5 (31.0-37.0) g/dL RDW 15.8 H (11.5-15.5) % Plt Count 229 (150-450) k/uL MPV 6.8 Neutrophils % 87 % Lymphocytes % 6 % Monocytes % 5 % Eosinophils % 1 % Basophils % 0 % Neutrophils # 11.8 H (1.3-7.7) k/uL Lymphocytes # 0.8 L (1.0-4.8) k/uL Monocytes # 0.7 (0-1.0) k/uL Eosinophils # 0.1 (0-0.7) k/uL Basophils # 0.0 (0-0.2) k/uL PT 10.4 (10.0-12.5) sec INR 0.9 (<1.2) APTT 22.1 (22.0-30.0) sec Sodium 135 L (137-145) mmol/L Potassium 4.3 (3.5-5.1) mmol/L Chloride 104 (98-107) mmol/L Carbon Dioxide 24 (22-30) mmol/L Anion Gap 7 mmol/L BUN 34 H (9-20) mg/dL Creatinine 0.64 L (0.66-1.25) mg/dL Est GFR (CKD-EPI)AfAm >90 (>60 ml/min/1.73 sqM) Est GFR (CKD-EPI)NonAf >90 (>60 ml/min/1.73 sqM) Glucose 283 H (74-99) mg/dL Calcium 8.5 (8.4-10.2) mg/dL Magnesium 1.9 (1.6-2.3) mg/dL Total Bilirubin 0.5 (0.2-1.3) mg/dL AST 15 L (17-59) U/L ALT 18 (4-49) U/L Alkaline Phosphatase 75 (38-126) U/L Creatine Kinase (55-170) U/L Troponin I (0.000-0.034) ng/mL Total Protein 5.1 L (6.3-8.2) g/dL Albumin 2.7 L (3.5-5.0) g/dL Urine Color Urine Appearance (Clear) Urine pH (5.0-8.0) Ur Specific [place] (1.001-1.035) Urine Protein (Negative) Urine Glucose (UA) (Negative) Urine Ketones (Negative) Urine Blood (Negative) Urine Nitrite (Negative) Urine Bilirubin (Negative) Urine Urobilinogen (<2.0) mg/dL Ur Leukocyte Esterase (Negative) Urine RBC (0-5) /hpf Urine WBC (0-5) /hpf Hyaline Casts (0-2) /lpf Urine Mucus (None) /hpf 10/07/23 10/07/23 10/07/23 Range/Units 11:02 11:02 12:19 WBC (3.8-10.6) k/uL RBC (4.30-5.90) m/uL Hgb (13.0-17.5) gm/dL Hct (39.0-53.0) % MCV (80.0-100.0) fL MCH (25.0-35.0) pg MCHC (31.0-37.0) g/dL RDW (11.5-15.5) % Plt Count (150-450) k/uL MPV Neutrophils % % Lymphocytes % % Monocytes % % Eosinophils % % Basophils % % Neutrophils # (1.3-7.7) k/uL Lymphocytes # (1.0-4.8) k/uL Monocytes # (0-1.0) k/uL Eosinophils # (0-0.7) k/uL Basophils # (0-0.2) k/uL PT (10.0-12.5) sec INR (<1.2) APTT (22.0-30.0) sec Sodium (137-145) mmol/L Potassium (3.5-5.1) mmol/L Chloride (98-107) mmol/L Carbon Dioxide (22-30) mmol/L Anion Gap mmol/L BUN (9-20) mg/dL Creatinine (0.66-1.25) mg/dL Est GFR (CKD-EPI)AfAm (>60 ml/min/1.73 sqM) Est GFR (CKD-EPI)NonAf (>60 ml/min/1.73 sqM) Glucose (74-99) mg/dL Calcium (8.4-10.2) mg/dL Magnesium (1.6-2.3) mg/dL Total Bilirubin (0.2-1.3) mg/dL AST (17-59) U/L ALT (4-49) U/L Alkaline Phosphatase (38-126) U/L Creatine Kinase 28 L (55-170) U/L Troponin I <0.012 (0.000-0.034) ng/mL Total Protein (6.3-8.2) g/dL Albumin (3.5-5.0) g/dL Urine Color [place] Urine Appearance Clear (Clear) Urine pH 6.0 (5.0-8.0) Ur Specific [place] 1.020 (1.001-1.035) Urine Protein Trace H (Negative) Urine Glucose (UA) 2+ H (Negative) Urine Ketones Negative (Negative) Urine Blood Negative (Negative) Urine Nitrite Negative (Negative) Urine Bilirubin Negative (Negative) Urine Urobilinogen 0.2 (<2.0) mg/dL Ur Leukocyte Esterase Negative (Negative) Urine RBC 1 (0-5) /hpf Urine WBC 3 (0-5) /hpf Hyaline Casts 1 (0-2) /lpf Urine Mucus Rare H (None) /hpf Disposition <Funmilayo Garsia - Last Filed: 10/07/23 11:13> Time of Disposition: 16:04 <Dewey Yang - Last Filed: 10/07/23 16:04> Clinical Impression: TIA (transient ischemic attack) Disposition: ADMITTED IP TO THIS HOSP Referrals: Dyana Giordano MD [Primary Care Provider] - 1-2 days
[2023-10-07 11:18] LABS: Basophils % (A) 0 %; Eosinophils # (A) 0.1 k/uL (0-0.7); Eosinophils % (A) 1 %; HCT 47.4 % (39.0-53.0); HGB 15.4 gm/dL (13.0-17.5); Lymphocytes # (A) 0.8 k/uL (1.0-4.8); Lymphocytes % (A) 6 %; MCH 28.7 pg (25.0-35.0); MCHC 32.5 g/dL (31.0-37.0); MCV 88.3 fL (80.0-100.0); Mean Platelet Volume 6.8; Monocytes # (A) 0.7 k/uL (0-1.0); Monocytes % (A) 5 %; Neutrophils # (A) 11.8 k/uL (1.3-7.7); Neutrophils % (A) 87 %; Platelet Count 229 k/uL (150-450); RBC 5.37 m/uL (4.30-5.90); RDW 15.8 % (11.5-15.5); WBC 13.6 k/uL (3.8-10.6)
[2023-10-07 11:36] LABS: INR 0.9 (<1.2); Partial Thromboplastin Time 22.1 sec (22.0-30.0); Prothrombin Time 10.4 sec (10.0-12.5)
[2023-10-07 11:50] LABS: ALT 18 U/L (4-49); AST 15 U/L (17-59); African American GFR (CKD) >90 (>60 ml/min/1.73 sqM); Albumin 2.7 g/dL (3.5-5.0); Alkaline Phosphatase 75 U/L (38-126); Anion Gap 7 mmol/L; Blood Urea Nitrogen 34 mg/dL (9-20); Calcium 8.5 mg/dL (8.4-10.2); Carbon Dioxide 24 mmol/L (22-30); Chloride 104 mmol/L (98-107); Glucose 283 mg/dL (74-99); Magnesium 1.9 mg/dL (1.6-2.3); Non-African American GFR(CKD) >90 (>60 ml/min/1.73 sqM); Potassium 4.3 mmol/L (3.5-5.1); Sodium 135 mmol/L (137-145); Total Bilirubin 0.5 mg/dL (0.2-1.3); Total Protein 5.1 g/dL (6.3-8.2)
[2023-10-07 12:26] LABS: Appearance,Urine Clear (Clear); Color,Urine Orange
[2023-10-07 12:27] LABS: Bilirubin,Urine Negative (Negative); Blood,Urine Negative (Negative); Glucose,Urine (UA) 2+ (Negative); Ketones,Urine Negative (Negative); Leukocyte Esterase,Urine Negative (Negative); Nitrite,Urine Negative (Negative); Protein,Urine Trace (Negative); Urobilinogen,Urine 0.2 mg/dL (<2.0)
[2023-10-07 12:28] LABS: Hyaline Casts,Urine 1 /lpf (0-2); Mucus,Urine Rare /hpf; RBC,Urine 1 /hpf (0-5); WBC,Urine 3 /hpf (0-5)
--- NOTE | 2023-10-07 13:21 | CT ---
EXAMINATION TYPE: CT angio head neck DATE OF EXAM: 10/07/2023 HISTORY: Slurred speech, difficulty walking, Covid +. COMPARISON: None0 CT DLP: 540.7 mGycm. Automated Exposure Control for Dose Reduction was Utilized. TECHNIQUE: CTA scan of the neck is performed with IV Contrast, patient injected with 65 mL of Isovue 370, axial images are obtained, coronal and sagittal reformatted images are reviewed. Three-D recons tructed images are created on an independent workstation and reviewed. Source images are reviewed. FINDINGS: Carotid/Vascular Structures: There is a 3 vessel arch. Common carotid arteries bifurcate into internal and external carotid arteries without significant yash w limiting stenosis in the axial plane. However, the right internal carotid artery origin appears naun notic on the reconstructed sagittal plane images. This appears greater than 70% on this image. Calcif ication is present at the carotid bifurcations. Significant stenosis of the left internal carotid art ramez on axial or reconstructed images is not identified. Vertebral arteries are codominant. Internal carotid arteries and vertebral arteries are patent to the skull base. Cervical of Rig[place]: Vertebral basilar system appears normal. Posterior cerebral vasculature is unrema rkable. Internal carotid arteries bifurcate normally into A1 and M1 segments. A2 segments are normal. The anterior communicating artery is patent. The right posterior communicating artery is absent. The left posterior communicating artery is absent. IMPRESSION: 1. There appears to be a stenosis greater than 70% at the origin of the left internal carotid artery on the sagittal reconstructed images, not identified on the additional images or source views. 2. Carotid and neck vessels otherwise appear within normal limits. 3. Normal E[place]chs of [place] NASCET criteria was used in interpretation of this exam?
--- NOTE | 2023-10-07 13:30 | CT ---
EXAMINATION TYPE: CT brain wo con DATE OF EXAM: 10/07/2023 COMPARISON: 05/20/2023 INDICATION: Slurred speech, difficulty walking, Covid +. DLP: 1142.6 mGycm, Automated exposure control for dose reduction was used. CONTRAST: None CT of the brain is performed utilizing 3 mm thick sections through the posterior fossa and 3 mm thick sections through the remaining calvarium. Study is performed within 24 hours of arrival to the hosp ital. No abnormal hyperdensity is present to suggest an acute intracranial hemorrhage. No mass lesion is evident. No acute infarcts are evident. Ventricles and sulci are appropriate for the patient age. Paranasal sinuses and mastoid air cells within the [id number] are clear. IMPRESSION: 1. No acute intracranial process. Follow-up MRI can be performed as clinically indicated.
--- NOTE | 2023-10-07 15:23 | P.HPIM ---
History of Present Illness This is a pleasant 73 years old male with multiple medical problems including COPD, CVA/TIA, Diabetes Mellitus, GERD/Reflux, Hearing Disorder / Deafness, Hyperlipidemia, Osteoarthritis (OA), Pulmonary Embolus (PE),,Portal bollous e mphysema. low back pain, bilat sciatica; RLS; migraines, TIA , BPH, diverticulosis. o multiple pneumothorax, O2 @2-4L [place] prn. Adrenal insufficiency, coronary artery disease status post stenting, prostate surgery 32 weeks ago Patient presents because of slurred speech and balance problem when he walks like ataxia since last Saturday. This is much improved now but not completely resolved He had blurred vision all night yesterday but now his vision is back to normal. No headache or dizziness currently no weakness or numbness. He denies chest pain or dyspnea or coughing currently. No urinary complaints. No vomiting or diarrhea 3 weeks ago he had severe prostatitis and his been treated with his urologist Dr. Montaño with oral antibiotic of Cipro. He doesn't have urgency but he is complaining of from right flank pain which is mild about it/10 associated with mild CVA tenderness on the right side He denies smoking alcohol or illicit drugs Vitals stable Labs are unremarkable except for chronic leukocytosis, currently 13,000. Chest x-ray: Negative for acute process. CT of the brain: Negative for acute process CTA shows 70% stenosis of the left ICA Chest x-ray: Negative for acute process. Review of Systems Review of systems CONSTITUTIONAL: No fever, no malaise, no fatigue. HEENT: No recent visual problems or hearing problems. Denied any sore throat. CARDIOVASCULAR: No orthopnea, PND, no palpitations, no syncope. PULMONARY: No shortness of breath, no cough, no hemoptysis. GASTROINTESTINAL: No diarrhea, no nausea, no vomiting, no abdominal pain. Normoactive bowel sounds. NEUROLOGICAL: No headaches, no weakness, no numbness. HEMATOLOGICAL: Denies any bleeding or petechiae. GENITOURINARY: Denies any burning micturition, frequency, or urgency. MUSCULOSKELETAL/RHEUMATOLOGICAL: Denies any joint pain, swelling, or any muscle pain. ENDOCRINE: Denies any polyuria or polydipsia. Past Medical History Past Medical History: COPD, CVA/TIA, Diabetes Mellitus, GERD/Reflux, Hearing Disorder / Deafness, Hyperlipidemia, Myocardial Infarction ([place]), Musculoskeletal Disorder, Osteoarthritis (OA), Pneumonia, Prostate Disorder, Pulmonary Embolus (PE), Respiratory Disorder Additional Past Medical History / Comment(s): PE/RLL pneumonia/acute hypoxic failure. Portal bollous emphysema. low back pain, bilat sciatica; RLS; migraines, TIA , BPH, hearing aids, , diverticulosis. onset diabetes 08/11/19, multiple pneumothorax, O2 @2-4L [place] prn. Adrenal insufficiency Last Myocardial Infarction Date:: 12/30/2019 History of Any Multi-Drug Resistant Organisms: None Reported Past Surgical History: Heart Catheterization With Stent, Hernia Repair, Orthopedic Surgery, Prostate Surgery, Tonsillectomy Additional Past Surgical History / Comment(s): Septoplasty/ESSS, EGD, colonoscopy with benign polyp, R inguinal hernia, umbilical hernia, pain clinic procedures, atilio fundloplication. upper bilat lung lobes removed 05/2021, prostate surgery 3 weeks ago. Past Anesthesia/Blood Transfusion Reactions: No Reported Reaction Additional Past Anesthesia/Blood Transfusion Reaction / Comment(s): no known family hx Date of Last Stent Placement:: Past Psychological History: PTSD Smoking Status: Former smoker Past Alcohol Use History: None Reported Past Drug Use History: None Reported - Past Family History Father History Unknown: Yes Family Medical History: No Reported History, Unable to Obtain Additional Family Medical History / Comment(s): Pt was adopted. Mother History Unknown: Yes Additional Family Medical History / Comment(s): Pt was adopted. Daughter(s) Additional Family Medical History / Comment(s): Children do not have any major medical problems. No history of blood clots. Medications and Allergies Home Medications Medication Instructions Recorded Confirmed Type Gabapentin 1,200 mg PO HS 04/09/16 05/17/23 History ALPRAZolam [Xanax] 1 mg PO HS 03/25/20 05/17/23 History Fluticasone/Umeclidin/Vilanter 1 puff INHALATION RT-DAILY 10/25/21 05/17/23 History [Trelegy Ellipta 100-62.5-25] HYDROcodone/APAP 7.5-325MG [[place] 1 tab PO TID PRN 10/25/21 05/17/23 History 7.5-325] Hydrocortisone [Cortef] 30 mg PO DAILY 04/19/22 05/17/23 History Gabapentin 600 mg PO DAILY 09/17/22 05/17/23 History Pantoprazole Sodium [Protonix] 40 mg PO BID 09/17/22 05/17/23 History Losartan [Cozaar] 50 mg PO DAILY #90 tab 09/18/22 05/17/23 Rx Nitroglycerin Sl Tabs [Nitrostat] 0.4 mg SUBLINGUAL Q5M PRN #100 tab 09/18/22 05/17/23 Rx Apixaban [Eliquis] 5 mg PO DAILY 05/17/23 05/17/23 History Atorvastatin [Lipitor] 40 mg PO HS 05/17/23 05/17/23 History Budesonide/Formoterol Fumarate 2 puff INHALATION RT-BID PRN 05/17/23 05/17/23 History [Symbicort 80-4.5 Mcg Inhaler] Butalb/APAP/Caff 50-325-40Mg 1 tab PO Q4H PRN 05/17/23 05/17/23 History [Fioricet 50-325-40] Clopidogrel Bisulfate [Clopidogrel] 75 mg PO DAILY 05/17/23 05/17/23 History Empagliflozin [Jardiance] 10 mg PO DAILY 05/17/23 05/17/23 History Ezetimibe [Zetia] 10 mg PO DAILY 05/17/23 05/17/23 History Fluticasone Propion/Salmeterol 1 puff INHALATION RT-BID PRN 05/17/23 05/17/23 History [Wixela 250-50 Inhub] Metoprolol Tartrate [Lopressor] 25 mg PO BID 05/17/23 05/17/23 History metFORMIN HCL 1,000 mg PO BID 05/17/23 05/17/23 History rOPINIRole HCL [Requip] 0.5 mg PO BID 05/17/23 05/17/23 History traZODone HCL [Desyrel] 200 mg PO HS 05/17/23 05/17/23 History Ciprofloxacin HCl [Cipro] 500 mg PO Q12HR 21 Days #42 tab 05/22/23 Rx hydroCHLOROthiazide [Hydrodiuril] 25 mg PO DAILY #30 tab 05/22/23 Rx Amoxic-Pot Clav 875-125Mg 1 tab PO Q12HR #20 tablet 07/03/23 Rx [Augmentin 875-217] Allergies Allergy/AdvReac Type Severity Reaction Status Date / Time No Known Allergies Allergy Verified 10/07/23 13:37 Physical Exam Vitals: Vital Signs Temp Pulse Resp BP Pulse Ox 10/07/23 11:37 18 10/07/23 10:56 98.1 F 66 20 152/97 99 Intake and Output 10/07/23 10/07/23 10/07/23 06:59 14:59 22:59 Other: Weight 81.647 kg GENERAL: The patient is alert and oriented x3, not in any acute distress. Well developed, well nourished. HEENT: Pupils are round and equally reacting to light. EOMI. No scleral icterus. No conjunctival pallor. Normocephalic, atraumatic. No pharyngeal erythema. No thyromegaly. CARDIOVASCULAR: S1 and S2 present. No murmurs, rubs, or gallops. PULMONARY: Chest is clear to auscultation, no wheezing , no crackles. -ABDOMEN: Soft, nontender, nondistended, normoactive bowel sounds. No palpable organomegaly. Mild right CVA tenderness MUSCULOSKELETAL: No joint swelling or deformity. EXTREMITIES: No cyanosis, clubbing, or pedal edema. NEUROLOGICAL: Gross neurological examination did not reveal any focal deficits. SKIN: No rashes. no petechiae. Results CBC & Chem 7: 10/07/23 11:02 10/07/23 11:02 Labs: Abnormal Lab Results - Last 24 Hours (Table) 10/07/23 10/07/23 10/07/23 Range/Units 11:02 11:02 11:02 WBC 13.6 H (3.8-10.6) k/uL RDW 15.8 H (11.5-15.5) % Neutrophils # 11.8 H (1.3-7.7) k/uL Lymphocytes # 0.8 L (1.0-4.8) k/uL Sodium 135 L (137-145) mmol/L BUN 34 H (9-20) mg/dL Creatinine 0.64 L (0.66-1.25) mg/dL Glucose 283 H (74-99) mg/dL AST 15 L (17-59) U/L Creatine Kinase 28 L (55-170) U/L Total Protein 5.1 L (6.3-8.2) g/dL Albumin 2.7 L (3.5-5.0) g/dL Urine Protein (Negative) Urine Glucose (UA) (Negative) Urine Mucus (None) /hpf 10/07/23 Range/Units 12:19 WBC (3.8-10.6) k/uL RDW (11.5-15.5) % Neutrophils # (1.3-7.7) k/uL Lymphocytes # (1.0-4.8) k/uL Sodium (137-145) mmol/L BUN (9-20) mg/dL Creatinine (0.66-1.25) mg/dL Glucose (74-99) mg/dL AST (17-59) U/L Creatine Kinase (55-170) U/L Total Protein (6.3-8.2) g/dL Albumin (3.5-5.0) g/dL Urine Protein Trace H (Negative) Urine Glucose (UA) 2+ H (Negative) Urine Mucus Rare H (None) /hpf Assessment and Plan Assessment: Periods with slurred speech and dizziness rule out TIA/CVA Left internal carotid artery stenosis 70% Right flank pain in view of recent prostatitis about 3 weeks ago COPD with history of lung reduction surgery, his compliance analyst is Dr. Rascon. Currently is not an active issue Diabetes mellitus Hypertension Hyperlipidemia History of osteoarthritis Hypothyroidism Plan: Continue with antiplatelet therapy Neuro check Neurology was consulted Check renal ultrasound but gentle hydration Labs and medication were reviewed.. Continue same treatment. Continue with symptomatic treatment. Resume home medication. Monitor lytes and vitals. DVT and GI prophylaxis. Further recommendations depends on the clinical course of the patient DVT prophylaxis: Subcutaneous heparin GI Prophylaxis: Pepcid PT/OT: Pending Prognosis is guarded
[2023-10-07] MEDS ORDERED: DEXTROSE 50% SYRINGE 50 ML IVP PRN ×2 (15:24)
--- NOTE | 2023-10-07 15:27 | XR ---
EXAMINATION TYPE: XR chest 2V DATE OF EXAM: 10/07/2023 COMPARISON: 08/28/2023 HISTORY: 73-year-old male with cough and difficulty in breathing TECHNIQUE: PA and lateral views FINDINGS: Heart normal size. Aorta and pulmonary vasculature within normal limits. Hyperinflation. Patchy right basilar opacity. Vertically oriented linear density at the right perihilar region compatible with po stsurgical change. IMPRESSION: COPD with advanced emphysema. Patchy right basilar atelectasis versus infiltrate/pneumonia. Clinicall y correlate.
[2023-10-07] MEDS ORDERED: ASPIRIN 325 MG TAB PO STA (16:04)
--- NOTE | 2023-10-07 16:57 | US ---
EXAMINATION TYPE: US renals and bladder DATE OF EXAM: 10/07/2023 COMPARISON: NONE CLINICAL INDICATION: Male, 73 years old with history of Rt flank pain; right flank pain x 2 days EXAM MEASUREMENTS: Right Kidney: 11.4x6.3x5.0 cm Left Kidney: 11.7x5.5x5.3 cm Right Kidney: No hydronephrosis or masses seen Left Kidney: No hydronephrosis or masses seen, scarring again seen Bladder: wnl Bilateral Jets seen: Yes IMPRESSION: 1. No acute renal ultrasound abnormality.
[2023-10-07 17:13] LABS: Glucose,Whole Blood 285 mg/dL (70-110)
[2023-10-07] MEDS: INSULIN ASPART (NovoLOG) 100 UNIT/ML VIAL SQ SCH ×2 (17:14→21:57)
[2023-10-07] MEDS ORDERED: HYDROcodone/APAP 7.5-325MG 1 EACH TAB PO PRN (21:17)
[2023-10-07] MEDS ORDERED: BUTALB/APAP/CAFF 50-325-40MG TAB PO PRN (21:17)
[2023-10-07] MEDS ORDERED: SYMBICORT 80-4.5 MCG INHALER INHALATION PRN ×2 (21:17)
[2023-10-07 21:45] LABS: Glucose,Whole Blood 165 mg/dL (70-110)
[2023-10-07] MEDS: ATORVASTATIN 40 MG TAB PO SCH (21:54)
[2023-10-07] MEDS: ALPRAZolam 1 MG TAB PO SCH (21:54)
[2023-10-07] MEDS: PANTOPRAZOLE 40 MG TABLET PO SCH (21:54)
[2023-10-07] MEDS: GABAPENTIN 400 MG CAP PO SCH (21:54)
[2023-10-07] MEDS: METOPROLOL TARTRATE 25 MG TAB PO SCH (21:54)
[2023-10-07] MEDS: traZODone HCL 100 MG TAB PO SCH (21:55)
[2023-10-08 08:04] LABS: Glucose,Whole Blood 160 mg/dL (70-110)
[2023-10-08] MEDS: IPRATROPIUM 0.5 MG/2.5 ML NEBU INHALATION SCH ×4 (08:20→20:26)
[2023-10-08] MEDS: SYMBICORT 80-4.5 MCG INHALER INHALATION SCH ×2 (08:20→20:26)
[2023-10-08] MEDS: INSULIN ASPART (NovoLOG) 100 UNIT/ML VIAL SQ SCH ×4 (08:38→21:00)
[2023-10-08] MEDS: CLOPIDOGREL 75 MG TAB PO SCH (08:39)
[2023-10-08] MEDS: EZETIMIBE 10 MG TAB PO SCH (08:39)
[2023-10-08] MEDS: PANTOPRAZOLE 40 MG TABLET PO SCH ×2 (08:39→17:51)
[2023-10-08] MEDS: metFORMIN 500 MG TAB PO SCH ×2 (08:39→20:20)
[2023-10-08] MEDS: DAPAGLIFLOZIN PROPANEDIOL 5 MG TABLET PO SCH (08:39)
[2023-10-08] MEDS: GABAPENTIN 300 MG CAP PO SCH (08:40)
[2023-10-08] MEDS: METOPROLOL TARTRATE 25 MG TAB PO SCH ×2 (08:40→20:21)
[2023-10-08] MEDS: LOSARTAN 50 MG TAB PO SCH (08:40)
[2023-10-08] MEDS: HYDROCORTISONE 10 MG TAB PO SCH (08:41)
[2023-10-08] MEDS ORDERED: ASPIRIN 325 MG TAB PO SCH (09:00)
[2023-10-08 09:47] LABS: African American GFR (CKD) >90 (>60 ml/min/1.73 sqM); Anion Gap 5 mmol/L; Blood Urea Nitrogen 31 mg/dL (9-20); Calcium 8.9 mg/dL (8.4-10.2); Carbon Dioxide 31 mmol/L (22-30); Chloride 102 mmol/L (98-107); Glucose 172 mg/dL (74-99); Non-African American GFR(CKD) >90 (>60 ml/min/1.73 sqM); Potassium 4.1 mmol/L (3.5-5.1); Sodium 138 mmol/L (137-145)
[2023-10-08 11:05] LABS: Basophils # (A) 0.1 k/uL (0-0.2); Basophils % (A) 0 %; Eosinophils # (A) 0.1 k/uL (0-0.7); Eosinophils % (A) 1 %; HCT 50.3 % (39.0-53.0); HGB 16.4 gm/dL (13.0-17.5); Lymphocytes # (A) 1.9 k/uL (1.0-4.8); Lymphocytes % (A) 13 %; MCH 29.2 pg (25.0-35.0); MCHC 32.6 g/dL (31.0-37.0); MCV 89.6 fL (80.0-100.0); Mean Platelet Volume 7.5; Monocytes # (A) 0.8 k/uL (0-1.0); Monocytes % (A) 6 %; Neutrophils # (A) 11.6 k/uL (1.3-7.7); Neutrophils % (A) 79 %; Platelet Count 254 k/uL (150-450); RBC 5.61 m/uL (4.30-5.90); RDW 15.8 % (11.5-15.5); WBC 14.7 k/uL (3.8-10.6)
[2023-10-08 12:13] LABS: Glucose,Whole Blood 177 mg/dL (70-110)
--- NOTE | 2023-10-08 15:02 | P.CNNES ---
History of Present Illness Consult date: 10/08/23 Requesting physician: Mak Ferrera Reason for Consult: slurred speech and ataxia History of Present Illness: Patient is a 73-year-old right-handed male came to the hospital by ambulance yesterday at 10:52 AM for slurred speech, and gait imbalance. He shouldn't states that he suffered from Covid infection 2 weeks ago, in which he had mild runny nose, nasal stuffiness and his home covid test was positive. Patient was otherwise fine. About 3 days ago on 10/05/2023 in the evening he noticed that he was not able to speak, speech was slurred as if his tongue was thick, and he started walking like a drunk was staggering, bouncing off the wall to wall.` He could not walk straight, and felt no stability. Also noticed hiccups that night. His condition stayed like that on Saturday, but as symptoms persisted, he came to the hospital on Saturday which is yesterday. Patient states that his speech difficulty has completely resolved as of today, although he is still not back 100% normal regarding his balance. Patient says that in the ER he could not remember name of the current president. He denies any vertigo. Patient denies any numbness or tingling or focal weakness. No previous history of CVA, although he had a TIA 10 years ago with exactly similar symptoms. EMS flow sheet not available in the chart, vitals on arrival blood pressure 152/97, pulse rate 66 temperature 98.1. Blood test shows WBC 13.6 hemoglobin 15.4, platelets 229. PT/PTT is normal, sodium 135 potassium 4.3, normal renal and hepatic panel. CK is normal, troponin negative. UA negative. CT head revealed no acute intracranial process. I personally reviewed CT and agree with the findings. On my review, there is involvement of bilateral maxillary sinuses As well as some ethmoid air cells. Chest x-ray showed COPD with advanced emphysema. Patchy right basilar atelectasis versus infiltrate/pneumonia, correlate clinically. Ultrasound of the renal and bladder is normal. Home medications include gabapentin 600 mg a.m. and 1200 mg at bedtime, Xanax 1 mg at bedtime, [place] 7.5 one tablet 3 times a day when necessary, hydrocortisone 30 mg orally daily, Protonix, losartan, Eliquis 5 mg twice a day, Zetia 10 mg, Lipitor 40 mg, trazodone 200 mg at bedtime, Fioricet, ropinirole 0.5 mg twice a day, Plavix 75 mg, metoprolol, metformin, Jardiance. Patient takes gabapentin for restless legs syndrome. Patient has smoked 1 pack per day for 10 years, quit 50 years ago. Denies any alcohol use. He has COPD. He has diabetes for 3 years, also has hypertension. Patient has chronic low back pain. Also has migraines. He has 4 cardiac stents, but no pacemaker. Patient states that about 6 weeks ago he suffered from prostatitis as well for which she treated with ciprofloxacin. Review of Systems Constitutional: Denies chills, Denies fever Eyes: denies blurred vision, denies diplopia, denies pain Ears: bilateral: decreased hearing (aids), deny: ear discharge Ears, nose, mouth and throat: Reports headache, Denies sore throat Cardiovascular: Denies chest pain, Denies shortness of breath Respiratory: Reports cough, Reports excessive sputum Gastrointestinal: Denies abdominal pain, Denies diarrhea, Denies nausea, Denies vomiting Genitourinary: Denies incontinence, Denies urinary frequency Musculoskeletal: Reports low back pain, Denies myalgias, Denies neck pain Integumentary: Denies pruritus, Denies rash Neurological: Reports as per HPI Psychiatric: Denies anxiety, Denies depression Hematologic/Lymphatic: Reports easy bruising, Denies easy bleeding Past Medical History Past Medical History: COPD, CVA/TIA, Diabetes Mellitus, GERD/Reflux, Hearing Disorder / Deafness, Hyperlipidemia, Myocardial Infarction ([place]), Musculoskeletal Disorder, Osteoarthritis (OA), Pneumonia, Prostate Disorder, Pulmonary Embolus (PE), Respiratory Disorder Additional Past Medical History / Comment(s): PE/RLL pneumonia/acute hypoxic failure. Portal bollous emphysema. low back pain, bilat sciatica; RLS; migraines, TIA , BPH, hearing aids, , diverticulosis. onset diabetes 08/11/19, multiple pneumothorax, O2 @2-4L [place] prn. Adrenal insufficiency Last Myocardial Infarction Date:: 12/30/2019 History of Any Multi-Drug Resistant Organisms: None Reported Past Surgical History: Heart Catheterization With Stent, Hernia Repair, Orthopedic Surgery, Prostate Surgery, Tonsillectomy Additional Past Surgical History / Comment(s): Septoplasty/ESSS, EGD, colonoscopy with benign polyp, R inguinal hernia, umbilical hernia, pain clinic procedures, atilio fundloplication. upper bilat lung lobes removed 05/2021, prostate surgery 3 weeks ago. Past Anesthesia/Blood Transfusion Reactions: No Reported Reaction Additional Past Anesthesia/Blood Transfusion Reaction / Comment(s): no known family hx Date of Last Stent Placement:: Past Psychological History: PTSD Smoking Status: Former smoker Past Alcohol Use History: None Reported Past Drug Use History: None Reported - Past Family History Father History Unknown: Yes Family Medical History: No Reported History, Unable to Obtain Additional Family Medical History / Comment(s): Pt was adopted. Mother History Unknown: Yes Additional Family Medical History / Comment(s): Pt was adopted. Daughter(s) Additional Family Medical History / Comment(s): Children do not have any major medical problems. No history of blood clots. Medications and Allergies Home Medications Medication Instructions Recorded Confirmed Type Gabapentin 1,200 mg PO HS 04/09/16 10/07/23 History ALPRAZolam [Xanax] 1 mg PO HS 03/25/20 10/07/23 History Fluticasone/Umeclidin/Vilanter 1 puff INHALATION RT-DAILY 10/25/21 10/07/23 History [Trelegy Ellipta 100-62.5-25] HYDROcodone/APAP 7.5-325MG [[place] 1 tab PO TID PRN 10/25/21 10/07/23 History 7.5-325] Hydrocortisone [Cortef] 30 mg PO DAILY 04/19/22 10/07/23 History Gabapentin 600 mg PO DAILY 09/17/22 10/07/23 History Pantoprazole Sodium [Protonix] 40 mg PO BID 09/17/22 10/07/23 History Losartan [Cozaar] 50 mg PO DAILY #90 tab 09/18/22 10/07/23 Rx Apixaban [Eliquis] 5 mg PO DAILY 05/17/23 10/07/23 History Atorvastatin [Lipitor] 40 mg PO HS 05/17/23 10/07/23 History Budesonide/Formoterol Fumarate 2 puff INHALATION RT-BID PRN 05/17/23 10/07/23 History [Symbicort 80-4.5 Mcg Inhaler] Butalb/APAP/Caff 50-325-40Mg 1 tab PO Q4H PRN 05/17/23 10/07/23 History [Fioricet 50-325-40] Clopidogrel Bisulfate [Clopidogrel] 75 mg PO DAILY 05/17/23 10/07/23 History Empagliflozin [Jardiance] 10 mg PO DAILY 05/17/23 10/07/23 History Ezetimibe [Zetia] 10 mg PO DAILY 05/17/23 10/07/23 History Fluticasone Propion/Salmeterol 1 puff INHALATION RT-BID PRN 05/17/23 10/07/23 History [[place]ela 250-50 Inhub] Metoprolol Tartrate [Lopressor] 25 mg PO BID 05/17/23 10/07/23 History metFORMIN HCL 1,000 mg PO BID 05/17/23 10/07/23 History rOPINIRole HCL [Requip] 0.5 mg PO BID 05/17/23 10/07/23 History traZODone HCL [Desyrel] 200 mg PO HS 05/17/23 10/07/23 History Allergies Allergy/AdvReac Type Severity Reaction Status Date / Time No Known Allergies Allergy Verified 10/07/23 15:36 Physical Examination - Vital Signs Vital Signs: Vital Signs Temp Pulse Resp BP Pulse Ox 10/08/23 10:00 56 L 18 116/67 93 L 10/08/23 08:30 62 10/08/23 08:20 60 93 L 10/08/23 06:28 98.0 F 58 L 17 128/81 93 L 10/08/23 05:11 58 L 17 122/79 94 L 10/08/23 03:17 54 L 17 145/93 96 10/08/23 02:38 52 L 18 131/86 95 10/08/23 00:19 64 17 111/66 91 L 10/07/23 19:57 74 17 136/106 92 L 10/07/23 18:28 78 18 115/82 98 10/07/23 17:17 71 18 148/75 98 10/07/23 15:00 70 18 150/78 98 10/07/23 13:00 64 18 144/76 98 10/07/23 12:00 68 18 148/88 98 10/07/23 11:37 18 Patient is an elderly male, very pleasant, in no acute distress. Patient is alert awake oriented to time place and person. Speech and language functions are normal. Patient can name and repeat very well. No aphasia or dysarthria. Attention, concentration and fund of knowledge is adequate. On cranial nerve examination, pupils are equal, round and reacting to light, visual astudillo are full on confrontation, with no neglect on double simultaneous stimulation. Extraocular muscles are intact with no nystagmus. Face is symmetric, tongue protrudes to the midline. Palatal elevation and sensation normal, hearing and shoulder shrug normal, facial sensation normal. On muscle strength testing, there is no pronator drift and the strength is normal in arms and legs distally and proximally. Deep tendon reflexes are symmetric 1+ in the upper limbs, trace at the knees, absent ankles and plantars are downgoing bilaterally. Sensory to touch is equal with no neglect on double simultaneous stimulation. Cerebellar function showed no ataxia for [id number] testing. No dysdiado chokinesia. No ataxia for [id number] testing on either side. Tone and bulk of muscles normal. Gait deferred.. On general examination, there is no carotid bruit or murmur, S1-S2 audible. Chest is clear on consultation. Abdomen is soft nontender. No organomegaly, bowel sounds present. Peripheral pulses are present. No peripheral edema. Results - Laboratory Findings CBC and BMP: 10/08/23 08:05 10/08/23 08:05 Abnormal Lab Findings: Abnormal Labs 10/07/23 10/07/23 10/07/23 11:02 11:02 11:02 WBC 13.6 H RDW 15.8 H Neutrophils # 11.8 H Lymphocytes # 0.8 L Sodium 135 L Carbon Dioxide BUN 34 H Creatinine 0.64 L Glucose 283 H POC Glucose (mg/dL) AST 15 L Creatine Kinase 28 L Total Protein 5.1 L Albumin 2.7 L Urine Protein Urine Glucose (UA) Urine Mucus 10/07/23 10/07/23 10/07/23 12:19 17:12 21:43 WBC RDW Neutrophils # Lymphocytes # Sodium Carbon Dioxide BUN Creatinine Glucose POC Glucose (mg/dL) 285 H 165 H AST Creatine Kinase Total Protein Albumin Urine Protein Trace H Urine Glucose (UA) 2+ H Urine Mucus Rare H 10/08/23 10/08/23 10/08/23 08:00 08:05 08:05 WBC 14.7 H RDW 15.8 H Neutrophils # 11.6 H Lymphocytes # Sodium Carbon Dioxide 31 H BUN 31 H Creatinine Glucose 172 H POC Glucose (mg/dL) 160 H AST Creatine Kinase Total Protein Albumin Urine Protein Urine Glucose (UA) Urine Mucus Assessment and Plan Assessment: * Possible TIA/CVA, now symptoms completely resolved. Current NIH stroke scale is 0. Patient's symptoms consisted of slurred speech, and gait imbalance. * Recent Covid infection 2 weeks ago. This may have resulted in hypercoagulable state leading to TIA. * Rule out left ICA stenosis * Diabetes * Hyperlipidemia * CAD * History of pulmonary embolism * COPD * Chronic low back pain * Adrenal insufficiency * Recent history of prostatitis 6 weeks ago Plan: * Patient probably had a transient hypercoagulable state from recent Covid infection, resulting in TIA. Patient is already on Plavix 75 mg, Eliquis 5 mg twice a day, statins, and he is compliant with medications. * No indication for MRI, as his symptoms have mostly resolved, current NIH stroke scale was 0. It will not change the management. * 2-D echo with bubble study to rule out PFO * CTA head and neck showed: There appears to be a stenosis greater than 70% at the origin of the left ICA on the sagittal reconstructed images, not doug ntified on the additional images or sores use. Carotid and neck vessels otherwise appear within normal limits. Normal campo of [place]. * Carotid Doppler, rule out stenosis * If the carotid Doppler abnormal, we will consult vascular surgery. * Fasting a.m. lipid panel * Hemoglobin A1c * Optimize control of blood pressure * Covid testing. * Neuro checks every 4 hours * Telemetry monitoring rule out any arrhythmia * PT, OT, speech therapy * DVT prophylaxis: Resume Eliquis * Neurology will continue to follow. Thank you for the consult. Addendum: Carotid Doppler revealed intimal thickening and scattered vascular blocks without significant flow-limiting stenosis based on velocities. Antegrade flow in both vertebral arteries.
[2023-10-08 15:50] LABS: Chol/HDL Ratio 7.34 Ratio; HDL Cholesterol 26.3 mg/dL (40.00-60.00); VLDL Calculation 106.6 mg/dL (5.00-40.00)
[2023-10-08 17:09] LABS: Glucose,Whole Blood 147 mg/dL (70-110)
[2023-10-08] MEDS: APIXABAN 5 MG TAB PO SCH (17:51)
[2023-10-08] MEDS: traZODone HCL 100 MG TAB PO SCH (20:20)
[2023-10-08] MEDS: ALPRAZolam 1 MG TAB PO SCH (20:20)
[2023-10-08] MEDS: GABAPENTIN 400 MG CAP PO SCH (20:20)
[2023-10-08] MEDS: ATORVASTATIN 40 MG TAB PO SCH (20:20)
[2023-10-08 21:02] LABS: Glucose,Whole Blood 129 mg/dL (70-110)
--- NOTE | 2023-10-09 01:18 | P.PN ---
Subjective This is a pleasant 73 years old male with multiple medical problems including COPD, CVA/TIA, Diabetes Mellitus, GERD/Reflux, Hearing Disorder / Deafness, Hyperlipidemia, Osteoarthritis (OA), Pulmonary Embolus (PE),,Portal bollous emphysema. low back pain, bilat sciatica; RLS; migraines, TIA , BPH, diverticulosis. o multiple pneumothorax, O2 @2-4L [place] prn. Adrenal insufficiency, coronary artery disease status post stenting, prostate surgery 32 weeks ago Patient presents because of slurred speech and balance problem when he walks like ataxia since last Saturday. This is much improved now but not completely resolved He had blurred vision all night yesterday but now his vision is back to normal. No headache or dizziness currently no weakness or numbness. He denies chest pain or dyspnea or coughing currently. No urinary complaints. No vomiting or diarrhea 3 weeks ago he had severe prostatitis and his been treated with his urologist Dr Juana Montaño with oral antibiotic of Cipro. He doesn't have urgency but he is complaining of from right flank pain which is mild about it/10 associated with mild CVA tenderness on the right side He denies smoking alcohol or illicit drugs Vitals stable Labs are unremarkable except for chronic leukocytosis, currently 13,000. Chest x-ray: Negative for acute process. CT of the brain: Negative for acute process CTA shows 70% stenosis of the left ICA Chest x-ray: Negative for acute process. 10/08/2023 , No other new symptoms. No headache weakness or numbness or dizziness patient denies chest pain or dyspnea. Vitals are stable, vitals are stable as well, patient has chronic leukocytosis she can follow-up as an outpatient I discussed Case with neurology service, they recommended echocardiogram with bubble study and carotid Doppler which is pending Patient conference has been using Eliquis at home however he was taking it once daily, currently his Eliquis was resumed twice daily Objective - Vital Signs Vital signs: Vital Signs Temp 98.0 F 10/08/23 06:28 Pulse 63 10/08/23 12:15 Resp 18 10/08/23 10:00 BP 116/67 10/08/23 10:00 Pulse Ox 93 L 10/08/23 10:00 FiO2 Intake & Output 10/07/23 10/08/23 10/08/23 18:59 06:59 18:59 Weight 81.647 kg - Labs CBC & Chem 7: 10/08/23 08:05 10/08/23 08:05 Labs: Abnormal Lab Results - Last 24 Hours (Table) 10/07/23 10/07/23 10/07/23 Range/Units 11:02 17:12 21:43 WBC (3.8-10.6) k/uL RDW (11.5-15.5) % Neutrophils # (1.3-7.7) k/uL Carbon Dioxide (22-30) mmol/L BUN (9-20) mg/dL Glucose (74-99) mg/dL POC Glucose (mg/dL) 285 H 165 H (70-110) mg/dL Creatine Kinase 28 L (55-170) U/L 10/08/23 10/08/23 10/08/23 Range/Units 08:00 08:05 08:05 WBC 14.7 H (3.8-10.6) k/uL RDW 15.8 H (11.5-15.5) % Neutrophils # 11.6 H (1.3-7.7) k/uL Carbon Dioxide 31 H (22-30) mmol/L BUN 31 H (9-20) mg/dL Glucose 172 H (74-99) mg/dL POC Glucose (mg/dL) 160 H (70-110) mg/dL Creatine Kinase (55-170) U/L 10/08/23 Range/Units 12:11 WBC (3.8-10.6) k/uL RDW (11.5-15.5) % Neutrophils # (1.3-7.7) k/uL Carbon Dioxide (22-30) mmol/L BUN (9-20) mg/dL Glucose (74-99) mg/dL POC Glucose (mg/dL) 177 H (70-110) mg/dL Creatine Kinase (55-170) U/L Assessment and Plan Assessment: Periods with slurred speech and dizziness, possibleTIA Left internal carotid artery stenosis 70% Right flank pain in view of recent prostatitis about 3 weeks ago, patient was instructed to follow up outpatient COPD with history of lung reduction surgery, his advanced analytics associate is Dr. Rascon. Currently is not an active issue Diabetes mellitus Hypertension Hyperlipidemia History of osteoarthritis Hypothyroidism Plan: Continue with antiplatelet therapy with Plavix Resume Eliquis twice daily instead of once stayed the patient was taken at home Follow up echocardiogram with bubble study and carotid duplex Neurology was consulted Check renal ultrasound but gentle hydration Labs and medication were reviewed.. Continue same treatment. Continue with symptomatic treatment. Resume home medication. Monitor lytes and vitals. DVT and GI prophylaxis. Further recommendations depends on the clinical course of the patient DVT prophylaxis: Subcutaneous heparin GI Prophylaxis: Pepcid PT/OT: Pending Prognosis is guarded
[2023-10-09 05:51] LABS: Glucose,Whole Blood 168 mg/dL (70-110)
[2023-10-09] MEDS: PANTOPRAZOLE 40 MG TABLET PO SCH (05:58)
[2023-10-09] MEDS: SODIUM CHLORIDE 0.9% 1,000 ML IV SCH ×2 (05:58→15:34)
[2023-10-09] MEDS: INSULIN ASPART (NovoLOG) 100 UNIT/ML VIAL SQ SCH ×2 (05:58→13:42)
--- NOTE | 2023-10-09 07:44 | US ---
EXAMINATION TYPE: US carotid duplex BILAT DATE OF EXAM: 10/08/2023 COMPARISON: NONE CLINICAL INDICATION: Male, 73 years old with history of Tia; TECHNIQUE: Carotid duplex ultrasound examination. Indirect Doppler criteria was utilized. FINDINGS: EXAM MEASUREMENTS: RIGHT: Peak Systolic Velocity (PSV) cm/sec ----- Right CCA: 53.7 ----- Right ICA: 63.0 ----- Right ECA: 87.7 ICA/CCA ratio: 1.2 RIGHT: End Diastole cm/sec ----- Right CCA: 14.5 ----- Right ICA: 24.5 ----- Right ECA: 10.3 LEFT: Peak Systolic Velocity (PSV) cm/sec ----- Left CCA: 49.6 ----- Left ICA: 52.0 ----- Left ECA: 66.2 ICA/CCA ratio: 1.0 LEFT: End Diastole cm/sec ----- Left CCA: 14.9 ----- Left ICA: 20.1 ----- Left ECA: 7.2 VERTEBRALS (direction of flow): Right Vertebral: Antegrade Left Vertebral: Antegrade Rhythm: Normal No significant stenosis. Bilateral intimal thickening is evident. There are some small plaques presen t IMPRESSION: 1. Intimal thickening and scattered vascular plaques without significant flow-limiting stenosis based on velocities. Criteria for Assigning % of Stenosis / Diameter reduction (Estimation based on the indirect measurements of the internal carotid artery velocities (ICA PSV). 1. Normal (no stenosis)=ICA PSV < 125 cm/s: ratio < 2.0: ICA EDV<40 cm/s. 2. Less than 50% stenosis=ICA PSV < 125 cm/s: ratio < 2.0: ICA EDV<40 cm/s. 3. 50 to 69% stenosis=ICA PSV of 125 to 230 cm/s: ration 2.0 ? 4.0: ICA EDV 40-100 cm/s. 4. Greater than 70% stenosis to near occlusion= ICA PSV > 230 cm/s: ratio > 4.0: ICA EDV > 100 cm/s. 5. Near occlusion= ICA PSV velocities may be low or undetectable: variable ratio and ICA EDV. 6. Total occlusion=unable to detect flow.
[2023-10-09] MEDS: SYMBICORT 80-4.5 MCG INHALER INHALATION SCH (08:55)
[2023-10-09] MEDS: IPRATROPIUM 0.5 MG/2.5 ML NEBU INHALATION SCH ×3 (08:56→16:22)
[2023-10-09] MEDS: HYDROCORTISONE 10 MG TAB PO SCH (09:29)
[2023-10-09] MEDS: LOSARTAN 50 MG TAB PO SCH (09:29)
[2023-10-09] MEDS: DAPAGLIFLOZIN PROPANEDIOL 5 MG TABLET PO SCH (09:29)
[2023-10-09] MEDS: metFORMIN 500 MG TAB PO SCH (09:29)
[2023-10-09] MEDS: APIXABAN 5 MG TAB PO SCH (09:30)
[2023-10-09] MEDS: METOPROLOL TARTRATE 25 MG TAB PO SCH (09:30)
[2023-10-09] MEDS: CLOPIDOGREL 75 MG TAB PO SCH (09:30)
[2023-10-09] MEDS: EZETIMIBE 10 MG TAB PO SCH (09:30)
[2023-10-09] MEDS: GABAPENTIN 300 MG CAP PO SCH (09:30)
--- NOTE | 2023-10-09 10:23 | CA ---
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 Distillery Worker Chris Aparicio Procedure CPT: Indications: tia Cardiac Hx: Technical Quality: Good Contrast 1: Total Dose (mL): Contrast 2: Total Dose (mL): MEASUREMENTS (Male / Female) Normal Values 2D ECHO LV Diastolic Diameter PLAX 4.8 cm 4.2 - 5.9 / 3.9 - 5.3 cm LV Systolic Diameter PLAX 2.9 cm IVS Diastolic Thickness 1.0 cm 0.6 - 1.0 / 0.6 - 0.9 cm LVPW Diastolic Thickness 1.2 cm 0.6 - 1.0 / 0.6 - 0.9 cm LV Relative Wall Thickness 0.5 RV Internal Dim ED PLAX 3.3 cm LVOT Diameter 2.1 cm Aortic Root Diameter 3.1 cm LA Systolic Diameter LX 3.1 cm 3.0 - 4.0 / 2.7 - 3.8 cm LV Diastolic Volume MOD BP 55.9 cm??? 67 - 155 / 56 - 104 cm??? LV Systolic Volume MOD BP 25.3 cm??? 22 - 58 / 19 - 49 cm??? LV Ejection Fraction MOD BP 54.8 % >= 55 % LV Diastolic Volume MOD 4C 65.1 cm??? LV Systolic Volume MOD 4C 31.3 cm??? LV Ejection Fraction MOD 4C 52.0 % LV Diastolic Length 4C 7.9 cm LV Systolic Length 4C 6.4 cm LV Diastolic Volume MOD 2C 44.3 cm??? LV Systolic Volume MOD 2C 19.8 cm??? LV Ejection Fraction MOD 2C 55.3 % LV Diastolic Length 2C 7.3 cm LV Systolic Length 2C 6.1 cm LA Volume 55.3 cm??? 18 - 58 / 22 - 52 cm??? LA Volume Index 27.4 cm???/m??? 16 - 28 cm???/m??? Ascending Aorta Diameter 3.1 cm DOPPLER AV Peak Velocity 135.9 cm/s AV Peak Gradient 7.4 mmHg LVOT Peak Velocity 108.7 cm/s LVOT Peak Gradient 4.7 mmHg LVOT Velocity Time Integral 22.9 cm LVOT Stroke Volume 78.1 cm??? LVOT Stroke Volume Index 39.1 ml/m??? AV Area Cont Eq pk 2.7 cm??? MV Peak Velocity 103.7 cm/s MV Peak Gradient 4.3 mmHg MV Mean Velocity 52.0 cm/s MV Mean Gradient 1.3 mmHg MV Velocity Time Integral 43.4 cm MR Peak Velocity 206.1 cm/s MR Peak Gradient 17.0 mmHg Mitral E Point Velocity 60.0 cm/s Mitral A Point Velocity 95.6 cm/s Mitral E to A Ratio 0.6 MV Deceleration Time 399.8 ms TR Peak Velocity 258.6 cm/s TR Peak Gradient 26.7 mmHg Right Ventricular Systolic Press 31.7 mmHg FINDINGS Left Ventricle Normal LV size and wall thickness. Left ventricular ejection fraction is estimated at 55-60 %. Right Ventricle Normal right ventricular size. Right Atrium Normal right atrial size. Left Atrium Normal left atrial size. LA volume index= 28ml/m2 Mitral Valve Structurally normal mitral valve. Mild MV annulus calcification. Trace MR. Aortic Valve Trileaflet aortic valve. Mild AV sclerosis. No aortic regurgitation. No aortic stenosis. Tricuspid Valve Structurally normal tricuspid valve. Pulmonic Valve Structurally normal pulmonic valve. No pulmonic regurgitation. Pericardium No pericardial effusion Aorta Normal size aortic root and proximal ascending aorta. CONCLUSIONS Normal LV size and wall thickness. Left ventricular ejection fraction is estimated at 55-60 %. No obvious regional wall motion abnormality No significant chamber size abnormality No significant valvular dysfunction IVC collapsible and Small Size Previewed by: Dr David Muniz (Electronically Signed) Final Date: 09 October 2023 10:22
[2023-10-09 13:14] VITALS: PULSE 75
[2023-10-09 13:30] LABS: Glucose,Whole Blood 309 mg/dL (70-110)
--- NOTE | 2023-10-09 14:56 | P.GSCN ---
History of Present Illness Consult date: 10/09/23 Reason for Consult: TIA, right ICA stenosis, discordant findings Requesting physician: Steffi Mckenzie History of present illness: Assessment 73-year-old male who deemed the hospital by EMS 2 days ago for slurred speech and gait imbalance. Patient recently positive for coag infection diagnosed about 2 weeks ago with symptoms of nasal congestion. Apparently on Saturday evening patient had noticed he was not able to speak, speech was slurred and states when he started walking he was staggering and bouncing off [place]. The symptoms persisted through Saturday and he came to the emergency department on Saturday for evaluation. Patient and say both slurred speech speech and gait imbalance resolved yesterday. His past medical history includes coronary artery disease status post stenting, COPD, TIA, diabetes mellitus, GERD, deafness, hyperlipidemia, myocardial infarction, prostate disorder, pulmonary embolism on Eliis. Patient also artery on Plavix 75 mg and statin. Patient states his last TIA was several years ago and he is unclear of cause. States he has not had any recent carotid imaging. He follows with Dr. Ochoa from cardiology. The patient was worked up for stroke had a CT angiogram head and neck impression reports stenosis greater than 70% at the origin of the left internal carotid artery. Carotid and neck vessels otherwise appear normal and normal [place]. However in the body of the report of the CT a head and neck report right internal carotid artery origin appears stenotic on the reconstructed sagittal plane images. This appears greater than 70% on this image. He had a CT of the brain that showed no acute intracranial process. Neurology was consulted for TIA/CVA. They ordered a carotid duplex which reported intimal thickening and scattered vascular plaques without significant flow-limiting stenosis based on velocities. Vascular surgery was consulted for TIA with discordant findings on CTA and carotid duplex. The patient is currently sitting up in his bed. Speech is fluent. He answers questions appropriately. He is alert and oriented 3. He denies any focal deficits. Denies any shortness of breath, chest pain, abdominal pain, nausea, vomiting, fevers or chills. Denies any weakness in the upper or lower extremities. Review of Systems A 14 point review systems was completed all pertinent positives and negatives as stated in the HPI. Past Medical History Past Medical History: COPD, CVA/TIA, Diabetes Mellitus, GERD/Reflux, Hearing Disorder / Deafness, Hyperlipidemia, Myocardial Infarction ([place]), Musculoskeletal Disorder, Osteoarthritis (OA), Pneumonia, Prostate Disorder, Pulmonary Embolus (PE), Respiratory Disorder Additional Past Medical History / Comment(s): PE/RLL pneumonia/acute hypoxic failure. Portal bollous emphysema. low back pain, bilat sciatica; RLS; migraines, TIA , BPH, hearing aids, , diverticulosis. onset diabetes 08/11/19, multiple pneumothorax, O2 @2-4L [place] prn. Adrenal insufficiency Last Myocardial Infarction Date:: 12/30/2019 History of Any Multi-Drug Resistant Organisms: None Reported Past Surgical History: Heart Catheterization With Stent, Hernia Repair, Orthopedic Surgery, Prostate Surgery, Tonsillectomy Additional Past Surgical History / Comment(s): Septoplasty/ESSS, EGD, colonoscop y with benign polyp, R inguinal hernia, umbilical hernia, pain clinic procedures, atilio fundloplication. upper bilat lung lobes removed 05/2021, prostate surgery 3 weeks ago. Past Anesthesia/Blood Transfusion Reactions: No Reported Reaction Additional Past Anesthesia/Blood Transfusion Reaction / Comm: no known family hx Date of Last Stent Placement:: Past Psychological History: PTSD Smoking Status: Former smoker Past Alcohol Use History: None Reported Past Drug Use History: None Reported - Past Family History Father History Unknown: Yes Family Medical History: No Reported History, Unable to Obtain Additional Family Medical History / Comment(s): Pt was adopted. Mother History Unknown: Yes Additional Family Medical History / Comment(s): Pt was adopted. Daughter(s) Additional Family Medical History / Comment(s): Children do not have any major medical problems. No history of blood clots. Medications and Allergies Home Medications Medication Instructions Recorded Confirmed Type Gabapentin 1,200 mg PO HS 04/09/16 10/07/23 History ALPRAZolam [Xanax] 1 mg PO HS 03/25/20 10/07/23 History Fluticasone/Umeclidin/Vilanter 1 puff INHALATION RT-DAILY 10/25/21 10/07/23 History [Trelegy Ellipta 100-62.5-25] HYDROcodone/APAP 7.5-325MG [[place] 1 tab PO TID PRN 10/25/21 10/07/23 History 7.5-325] Hydrocortisone [Cortef] 30 mg PO DAILY 04/19/22 10/07/23 History Gabapentin 600 mg PO DAILY 09/17/22 10/07/23 History Pantoprazole Sodium [Protonix] 40 mg PO BID 09/17/22 10/07/23 History Losartan [Cozaar] 50 mg PO DAILY #90 tab 09/18/22 10/07/23 Rx Apixaban [Eliquis] 5 mg PO DAILY 05/17/23 10/07/23 History Atorvastatin [Lipitor] 40 mg PO HS 05/17/23 10/07/23 History Budesonide/Formoterol Fumarate 2 puff INHALATION RT-BID PRN 05/17/23 10/07/23 History [Symbicort 80-4.5 Mcg Inhaler] Butalb/APAP/Caff 50-325-40Mg 1 tab PO Q4H PRN 05/17/23 10/07/23 History [Fioricet 50-325-40] Clopidogrel Bisulfate [Clopidogrel] 75 mg PO DAILY 05/17/23 10/07/23 History Empagliflozin [Jardiance] 10 mg PO DAILY 05/17/23 10/07/23 History Ezetimibe [Zetia] 10 mg PO DAILY 05/17/23 10/07/23 History Fluticasone Propion/Salmeterol 1 puff INHALATION RT-BID PRN 05/17/23 10/07/23 History [[place] 250-50 [place]] Metoprolol Tartrate [Lopressor] 25 mg PO BID 05/17/23 10/07/23 History metFORMIN HCL 1,000 mg PO BID 05/17/23 10/07/23 History rOPINIRole HCL [Requip] 0.5 mg PO BID 05/17/23 10/07/23 History traZODone HCL [Desyrel] 200 mg PO HS 05/17/23 10/07/23 History Allergies Allergy/AdvReac Type Severity Reaction Status Date / Time No Known Allergies Allergy Verified 10/07/23 15:36 Surgical - Exam Vital Signs Temp Pulse Resp BP Pulse Ox 98.1 F 66 20 152/97 99 10/07/23 10:56 10/07/23 10:56 10/07/23 10:56 10/07/23 10:56 10/07/23 10:56 General appearance: The patient is alert, oriented, appears in no acute distress. HET: Head is normocephalic and atraumatic. Pupils are equal and reactive. Neck: Supple. No audible bruit. Heart: Regular. Lungs: Equal expansion, normal respiratory effort. Abdomen: Soft, nontender, nondistended. Extremities: Normal skin color and turgor. Palpable bilateral radial and DP pulses. Neurological: No focal deficits. Strength and sensation are grossly intact. Results - Labs 10/08/23 08:05 10/08/23 08:05 Abnormal Lab Results - Last 24 Hours (Table) 10/08/23 10/08/23 10/08/23 Range/Units 08:05 08:24 17:08 POC Glucose (mg/dL) 147 H (70-110) mg/dL Hemoglobin A1c 7.5 H (<=6.0) % Triglycerides 533.00 H (0.00-149.00) mg/dL VLDL Cholesterol, Calc 106.60 H (5.00-40.00) mg/dL HDL Cholesterol 26.30 L (40.00-60.00) mg/dL 10/08/23 10/09/23 Range/Units 21:00 05:50 POC Glucose (mg/dL) 129 H 168 H (70-110) mg/dL Hemoglobin A1c (<=6.0) % Triglycerides (0.00-149.00) mg/dL VLDL Cholesterol, Calc (5.00-40.00) mg/dL HDL Cholesterol (40.00-60.00) mg/dL Diabetes panel 10/08/23 10/08/23 Range/Units 08:05 08:24 Hemoglobin A1c 7.5 H (<=6.0) % Triglycerides 533.00 H (0.00-149.00) mg/dL HDL Cholesterol 26.30 L (40.00-60.00) mg/dL - Imaging Comments: Echocardiogram: Normal LV size and wall thickness. Left ventricular EF is estimated at 55-60% no obvious regional wall motion abnormality. No significant chamber size abnormality. No significant valvular dysfunction. IVC collapsible and small size. See HPI for carotid duplex and CT angiogram report Assessment and Plan Assessment: 1. Discordant findings on CT angiogram and carotid duplex 2. Possible TIA, presented with slurred speech and gait imbalance 3. Recent COVID-19 infection 4. Diabetes 5. Hyperlipidemia 6. Coronary artery disease 7. History of pulmonary embolism 8. COPD 9. Adrenal insufficiency Plan: 1. Agree with increasing statin, continue Plavix and Eliquis 2. CT angiogram head and neck report and impression conflicting. Radiology notified to add addendum 3. Patient is cleared from vascular surgery for discharge. Recommend outpatient follow-up in the next 2 weeks and will repeat carotid duplex in the office. 4. Further recommendations forthcoming per vascular surgeon. Thank you for this consultation. The impression and plan of care has been dictated as directed. I performed a history and examination of this patient, discussed the same with the dictator. I agree with the dictator's note ,documented as a scribe. Any additional findings or plans will be noted.
--- NOTE | 2023-10-09 15:12 | P.PN ---
Subjective Progress Note Date: 10/09/23 Patient was seen for a follow-up. Offers no new complaints. Feels gait is back to normal. Speech is back to normal. Objective - Vital Signs Vital signs: Vital Signs Temp 98.1 F 10/09/23 07:05 Pulse 75 10/09/23 13:08 Resp 15 10/09/23 07:05 BP 127/82 10/09/23 07:05 Pulse Ox 96 10/09/23 08:57 FiO2 Intake & Output 10/08/23 10/09/23 10/09/23 18:59 06:59 18:59 Intake Total 118 236 Balance 118 236 Weight 81.647 kg Intake: Oral 118 236 Other: # Voids 2 - Exam Nonfocal - Labs CBC & Chem 7: 10/08/23 08:05 10/08/23 08:05 Labs: Abnormal Lab Results - Last 24 Hours (Table) 10/08/23 10/08/23 10/08/23 Range/Units 08:05 08:24 17:08 POC Glucose (mg/dL) 147 H (70-110) mg/dL Hemoglobin A1c 7.5 H (<=6.0) % Triglycerides 533.00 H (0.00-149.00) mg/dL VLDL Cholesterol, Calc 106.60 H (5.00-40.00) mg/dL HDL Cholesterol 26.30 L (40.00-60.00) mg/dL 10/08/23 10/09/23 10/09/23 Range/Units 21:00 05:50 13:29 POC Glucose (mg/dL) 129 H 168 H 309 H (70-110) mg/dL Hemoglobin A1c (<=6.0) % Triglycerides (0.00-149.00) mg/dL VLDL Cholesterol, Calc (5.00-40.00) mg/dL HDL Cholesterol (40.00-60.00) mg/dL Assessment and Plan Assessment: * Possible TIA/CVA, now symptoms completely resolved. Current NIH stroke scale is 0. Patient's symptoms consisted of slurred speech, and gait imbalance. * Recent Covid infection 2 weeks ago. This may have resulted in hypercoagulable state leading to TIA. * Rule out right ICA stenosis * Diabetes * Hyperlipidemia * CAD * History of pulmonary embolism * COPD * Chronic low back pain * Adrenal insufficiency * Recent history of prostatitis 6 weeks ago Plan: * Patient probably had a transient hypercoagulable state from recent Covid infection, resulting in TIA. Patient is already on Plavix 75 mg, Eliquis 5 mg twice a day, statins, and he is compliant with medications. * No indication for MRI, as his symptoms have mostly resolved, current NIH stroke scale was 0. It will not change the management. * 2-D echo with bubble study revealed normal left-ventricular size and wall thickness, with EF 55-60%. No obvious regional wall motion abnormality. No significant valvular dysfunction. The left atrial size and right atrial size are normal. * CTA head and neck showed: (Addended report) There appears to be a stenosis greater than 70% at the origin of the right ICA on the sagittal reconstructed images, not identified on the additional images or source views. Carotid and neck vessels otherwise appear within normal limits. Normal [place]. * Carotid Doppler revealed intimal thickening and scattered atherosclerotic plaques without significant flow-limiting stenosis based on velocities. Antegrade flow in both vertebral arteries. * Vascular surgery input appreciated. They did not notice any significant stenosis bilateral ICA and felt it was the cuts of the CT. * Fasting a.m. lipid panel with cholesterol 193, LDL 104, HDL 26, triglycerides 533. We will increase Lipitor from 40 to 80 mg to target LDL < 70. * Hemoglobin A1c 7.5. Recommend optimize control of diabetes to target A1c < 7.0. * Optimize control of blood pressure * Covid testing came negative. * Okay to discharge on same medications including Plavix 75 mg and Eliquis 5 mg twice a day. * DVT prophylaxis: Resume Eliquis * Neurologically clear for discharge with the above recommendations.
[2023-10-09 15:28] VITALS: BP 107/69; RESP 16; TEMP 97.8
[2023-10-09] MEDS ORDERED: ATORVASTATIN 80 MG TAB PO SCH (21:00)
--- NOTE | 2023-10-15 16:07 | P.DS ---
Providers Date of admission: 10/07/23 16:04 Attending physician: Mak Ferrera MD Consults: 10/07/23 15:23 Consult Physician Routine Consulting Provider: Steffi Mckenzie Consult Reason/Comments: slurred speech and ataxia Do you want consulting provider notified?: Yes 10/09/23 12:19 Consult Physician Urgent Consulting Provider: Codie German Consult Reason/Comments: TIA, Right ICA stenosis, disordant finding on CTA and US Do you want consulting provider notified?: Yes Primary care physician: [facility] Hospital Course: Diagnoses Periods with slurred speech and dizziness, possible TIA Left internal carotid artery stenosis 70% Right flank pain in view of recent prostatitis about 3 weeks ago, and improved , patient was instructed to follow up outpatient COPD with history of lung reduction surgery, his application manager is Dr. Rascon. Currently is not an active issue Diabetes mellitus Hypertension Hyperlipidemia History of osteoarthritis Hypothyroidism Hospital course: This is a pleasant 73 years old male with multiple medical problems including COPD, CVA/TIA, Diabetes Mellitus, GERD/Reflux, Hearing Disorder / Deafness, Hyperlipidemia, Osteoarthritis (OA), Pulmonary Embolus (PE),,Portal bollous emphysema. low back pain, bilat sciatica; RLS; migraines, TIA , BPH, diverticulosis. o multiple pneumothorax, O2 @2-4L NC prn. Adrenal insufficiency, coronary artery disease status post stenting, prostate surgery 32 weeks ago Patient presents because of slurred speech and balance problem when he walks like ataxia since last Saturday. Patient symptoms improved. His abdomen is noted by neurologist in, but CTA shows 70% stenosis of the left internal carotid artery, is also been evaluated by vascular surgery and recommended conservative management with antiplatelet therapy and follow-up as an outpatient. Vascular surgery upon their evaluation, They did not notice any significant stenosis bilateral ICA and felt it was the cuts of the CT. Eventually patient was cleared for discharge by neurology service and to continue with home dose of Eliquis 5 mg and Plavix 75 mg, patient confirms to me he has this medication at home and he does not need referral, he does not need any other home medications prescription. Risks and benefits of these blood thinners are explained for the patient and he verbalized understanding and acceptance. Problems and management plan were discussed with the patient and he verbalized understanding and acceptance Patient was found stable and can be discharged home in guarded prognosis however he needs follow-up as an outpatient. Patient was instructed to follow up with PCP Dr. Giordano within one week and patient agrees Patient was instructed to follow-up with neurologist and Dr. Narvaez or Dr. Bliss were suggested for him to follow-up in 2 weeks and he agrees. Was instructed to follow up with vascular surgeon Dr. Chowdary in 2 weeks and he agrees. And also instructed to follow up with emt basic Dr. Arthur in 2 weeks for uncontrolled diabetes with hemoglobin A1c 7.5% Occluded to follow-up with Dr. Braun education teacher for his chronic leukocytosis in 2-3 weeks and he is agreeable as well Also patient told me he would follow up with his urologist as scheduled before as an outpatient. Physical exam Gen: patient is a AAOx3, no distress CVS: S1-S2, RRR, no murmur Lungs: B/L CTA, no wheezing Abdomen: soft, no distention, no tenderness, positive bowel sounds Extremity: no leg edema or induration Time spent more than 35 minutes Plan - Discharge Summary New Discharge Prescriptions: New Atorvastatin [Lipitor] 80 mg PO HS #30 tab ALPRAZolam [Xanax] 0.5 mg PO HS tab Continue Gabapentin 1,200 mg PO HS ALPRAZolam [Xanax] 1 mg PO HS Fluticasone/Umeclidin/Vilanter [Trelegy Ellipta 100-62.5-25] 1 puff INHALATION RT-DAILY Losartan [Cozaar] 50 mg PO DAILY #90 tab Apixaban [Eliquis] 5 mg PO DAILY Ezetimibe [Zetia] 10 mg PO DAILY traZODone HCL [Desyrel] 200 mg PO HS Butalb/APAP/Caff 50-325-40Mg [Fioricet 50-325-40] 1 tab PO Q4H PRN PRN Reason: Headache Hydrocortisone [Cortef] 30 mg PO DAILY Gabapentin 600 mg PO DAILY Pantoprazole Sodium [Protonix] 40 mg PO BID rOPINIRole HCL [Requip] 0.5 mg PO BID Clopidogrel Bisulfate [Clopidogrel] 75 mg PO DAILY Metoprolol Tartrate [Lopressor] 25 mg PO BID metFORMIN HCL 1,000 mg PO BID Empagliflozin [Jardiance] 10 mg PO DAILY Fluticasone Propion/Salmeterol [Wixela 250-50 Inhub] 1 puff INHALATION RT-BID PRN PRN Reason: Shortness Of Breath Budesonide/Formoterol Fumarate [Symbicort 80-4.5 Mcg Inhaler] 2 puff INHALATION RT-BID PRN PRN Reason: Shortness Of Breath Changed HYDROcodone/APAP 7.5-325MG [Layland 7.5-325] 1 tab PO BID #0 Discontinued Atorvastatin [Lipitor] 40 mg PO HS Discharge Medication List Gabapentin 1,200 mg PO HS 04/09/16 [History] ALPRAZolam [Xanax] 1 mg PO HS 03/25/20 [History] Fluticasone/Umeclidin/Vilanter [Trelegy Ellipta 100-62.5-25] 1 puff INHALATION RT-DAILY 10/25/21 [History] Hydrocortisone [Cortef] 30 mg PO DAILY 04/19/22 [History] Gabapentin 600 mg PO DAILY 09/17/22 [History] Pantoprazole Sodium [Protonix] 40 mg PO BID 09/17/22 [History] Losartan [Cozaar] 50 mg PO DAILY #90 tab 09/18/22 [Rx] Apixaban [Eliquis] 5 mg PO DAILY 05/17/23 [History] Budesonide/Formoterol Fumarate [Symbicort 80-4.5 Mcg Inhaler] 2 puff INHALATION RT-BID PRN 05/17/23 [History] Butalb/APAP/Caff 50-325-40Mg [Fioricet 50-325-40] 1 tab PO Q4H PRN 05/17/23 [History] Clopidogrel Bisulfate [Clopidogrel] 75 mg PO DAILY 05/17/23 [History] Empagliflozin [Jardiance] 10 mg PO DAILY 05/17/23 [History] Ezetimibe [Zetia] 10 mg PO DAILY 05/17/23 [History] Fluticasone Propion/Salmeterol [Wixela 250-50 Inhub] 1 puff INHALATION RT-BID PRN 05/17/23 [History] Metoprolol Tartrate [Lopressor] 25 mg PO BID 05/17/23 [History] metFORMIN HCL 1,000 mg PO BID 05/17/23 [History] rOPINIRole HCL [Requip] 0.5 mg PO BID 05/17/23 [History] traZODone HCL [Desyrel] 200 mg PO HS 05/17/23 [History] ALPRAZolam [Xanax] 0.5 mg PO HS tab 10/09/23 [Rx] Atorvastatin [Lipitor] 80 mg PO HS #30 tab 10/09/23 [Rx] HYDROcodone/APAP 7.5-325MG [Layland 7.5-325] 1 tab PO BID #0 10/09/23 [Rx] Follow up Appointment(s)/Referral(s): Gonzalez Degroot [STAFF PHYSICIAN] - 2 Weeks (chronic leukocytosis) Dyana Giordano MD [Primary Care Provider] - 1-2 days Nessa Bliss MD [REFERRING] - 2 Weeks (neurologist ) Joao Rashid MD [REFERRING] - 2 Weeks (Gate Supervisor we recommend to optamize your sugar control ) Codie German DO [STAFF PHYSICIAN] - 10/23/23 11:30 am (we recommend to repeat carotid doppler in the office) Quinton Narvaez MD [Medical Doctor] - 2 Weeks (neurologist ) Patient Instructions/Handouts: Transient Ischemic Attack (DC) Activity/Diet/Wound Care/Special Instructions: heat healthy low carbohydrate diet 1800 kcal per day activity is restricted till you see your doctor we recommend to check your glucose 4 times a day before each meal and at bed time , keep the results in a log book and bring it to your doctor upon your appointment date if your glucose is less than 70 or more than 400 then call 911 and come to emergency room Hemoglobin A1c 7.5. Recommend optimize control of diabetes to target A1c < 7.0. Discharge Disposition: HOME SELF-CARE
== END 2023-10-09 16:52 | disposition home or self-care (01) ==
LOC: EC 10:52 → 6NMEDSUR 16:04
PROVIDERS: ADMIT Internal Medicine; ATTEND Internal Medicine
DX: R47.81 Slurred speech (principal); R26.9 Unspecified abnormalities of gait and mobility; R42 Dizziness and giddiness; R10.9 Unspecified abdominal pain; I65.22 Occlusion and stenosis of left carotid artery; J44.9 Chronic obstructive pulmonary disease, unspecified; E11.9 Type 2 diabetes mellitus without complications; K21.9 Gastro-esophageal reflux disease without esophagitis; E78.5 Hyperlipidemia, unspecified; N40.0 Benign prostatic hyperplasia without lower urinary tract symptoms; E27.40 Unspecified adrenocortical insufficiency; I25.10 Atherosclerotic heart disease of native coronary artery without angina pectoris; G25.81 Restless legs syndrome; I10 Essential (primary) hypertension; G89.29 Other chronic pain; M54.50 Low back pain, unspecified; E03.9 Hypothyroidism, unspecified; M19.90 Unspecified osteoarthritis, unspecified site; I25.2 Old myocardial infarction; Z20.822 Contact with and (suspected) exposure to COVID-19; Z86.16 Personal history of COVID-19; Z86.711 Personal history of pulmonary embolism; Z86.73 Personal history of transient ischemic attack (TIA), and cerebral infarction without residual deficits; Z87.891 Personal history of nicotine dependence; Z95.5 Presence of coronary angioplasty implant and graft; Z79.01 Long term (current) use of anticoagulants; Z79.51 Long term (current) use of inhaled steroids; Z79.02 Long term (current) use of antithrombotics/antiplatelets; Z79.84 Long term (current) use of oral hypoglycemic drugs; Z79.899 Other long term (current) drug therapy
CPT/HCPCS: 96372 ×3; 99285; 51798; 36415; 94640 ×4; 94760 ×2; 93005; 93306; 97161; 92522; 80061; 80053; 80048; 82550; 83735; 84484; 85025 ×2; 85610; 85730; 81003; 83721; 83036; 87635; 71046; 76770; 93880; 70496; 70450; 70498; G0378 ×3; Q9967

== ENCOUNTER → 2023-11-14 | Outpatient (CLI) | payer MEDICARE ==
--- NOTE | 2023-11-14 23:35 | US ---
EXAMINATION TYPE: US arterial LE single level DATE OF EXAM: 11/14/2023 10:37 AM CLINICAL INDICATION: Male, 73 years old with history of I73.9 PAD; PAD History of: Smoker: Previous Hypertension: Yes Diabetic: Yes Hyperlipidemia: Yes TIA/CVA: Yes Previous Vascular Surgery: No CAD: No NV: No Vascular Ulcers: No Claudication: No Gangrene: No Doppler Waveforms: Right: Multiphasic Left: Multiphasic Ankle-Brachial Indices: Right: 1.20 Left: 1.18 Toe Brachial Indices: Right: 0.76 Left: 0.83 IMPRESSION: Ankle-brachial indices within normal limits. Toe brachial indices with moderate peripheral vascular disease.
== END | disposition home or self-care (01) ==
LOC: RADUSWWP 10:07
PROVIDERS: ATTEND Family Medicine
DX: I73.9 Peripheral vascular disease, unspecified (principal)
CPT/HCPCS: 93922

== ENCOUNTER → 2023-11-28 | Outpatient (CLI) | payer MEDICARE ==
[2023-11-28 18:16] LABS: Basophils # (A) 0.06 X 10*3/uL (0.00-0.10); Basophils % (A) 0.5 %; Eosinophils # (A) 0.03 X 10*3/uL (0.04-0.35); Eosinophils % (A) 0.3 %; HGB 15.1 g/dL (13.0-17.0); Lymphocytes # (A) 0.74 X 10*3/uL (0.90-5.00); Lymphocytes % (A) 6.2 %; MCH 28.9 pg (27.0-32.0); MCHC 31.5 g/dL (32.0-37.0); MCV 91.8 FL (80.0-97.0); Mean Platelet Volume 9.2 FL (9.5-12.2); Monocytes % (A) 3.3 %; NRBC Per 100 WBC 0 X 10*3/uL (0.00-0.01); Neutrophils # (A) 10.68 X 10*3/uL (1.80-7.70); Platelet Count 260 X 10*3/uL (140-440); RBC 5.23 X 10*6/uL (4.40-5.60); RDW 14.8 % (11.5-14.5); WBC 11.99 X 10*3/uL (4.50-10.00)
[2023-11-28 20:58] LABS: Microalbumin Creatinine Ratio <9 mg/g Cr (0-30)
[2023-11-29 02:59] LABS: % Iron Saturation 30.93 (15.00-50.00); ALT 14 U/L (10-49); AST 11 U/L (14-35); Albumin 3.8 g/dL (3.8-4.9); Alkaline Phosphatase 65 U/L (41-126); Blood Urea Nitrogen 18.4 mg/dL (9.0-27.0); Calcium 9.4 mg/dL (8.7-10.3); Carbon Dioxide 24.5 mmol/L (21.6-31.8); Chloride 107 mmol/L (96-109); Chol/HDL Ratio 3.03 Ratio; Globulin 1.9 g/dL (1.6-3.3); Glucose 129 mg/dL (70-110); Iron 103 UG/DL (65-175); LDL Cholesterol,Calculated 29.6 mg/dL (0.0-131.0); Potassium 4.8 mmol/L (3.5-5.5); Prostate Specific Antigen 7.66 ng/mL (0.000-6.500); Sodium 142 mmol/L (135-145); Total Bilirubin 0.3 mg/dL (0.3-1.2); Total Iron Binding Capacity 333 UG/DL (228-460); Total Protein 5.7 g/dL (6.2-8.2)
== END | disposition home or self-care (01) ==
LOC: LABWHC1 14:06
PROVIDERS: ATTEND Urology
DX: Z00.01 Encounter for general adult medical examination with abnormal findings (principal); I25.119 Atherosclerotic heart disease of native coronary artery with unspecified angina pectoris; E11.65 Type 2 diabetes mellitus with hyperglycemia; D50.9 Iron deficiency anemia, unspecified; E78.5 Hyperlipidemia, unspecified; R97.20 Elevated prostate specific antigen [PSA]
CPT/HCPCS: 36415; 80053; 80061; 82043; 82570; 83036; 83540; 83550; 84153; 84443; 85025; 86141

== ENCOUNTER 2024-01-23 08:47 | Inpatient (IN) | payer MEDICARE ==
[2024-01-23] MEDS ORDERED: VANCOMYCIN IV PER PHARMACY 1 EACH MISC MISCELLANE PRN (08:57)
[2024-01-23] MEDS: ACETAMINOPHEN TAB 500 MG TAB PO STA (09:21)
[2024-01-23] MEDS: ONDANSETRON 4 MG/2 ML VIAL IVP STA (09:21)
--- NOTE | 2024-01-23 09:22 | ED ---
General Adult HPI - General Chief complaint: Fever Stated complaint: fever Time Seen by Provider: 01/23/24 08:50 Source: patient, EMS, RN notes reviewed, old records reviewed Mode of arrival: EMS Limitations: no limitations - History of Present Illness Initial comments: Patient is a 73-year-old male who presents emergency department for fever, mild confusion. Patient states he began having a productive cough yesterday. Also noticed chills yesterday. Patient states he awoke, felt febrile, as well as unsteady due to the fever. Was a little confused this morning when he woke up but had severe chills. Was found to be febrile. Has a history of sepsis. Is not normally on oxygen but does have a history of COPD. Recently also had a prostate biopsy with urology. That was earlier this week. Denies any dysuria or hematuria. Endorses some nausea. Endorses cough. Denies diarrhea. Denies any dysuria. Denies any emesis but does have some mild nausea. Has no other acute complaints at this time. Has no abdominal pain. Denies chest pain. Presents for further evaluation. - Related Data Home Medications Medication Instructions Recorded Confirmed Gabapentin 1,200 mg PO HS 04/09/16 01/23/24 ALPRAZolam [Xanax] 1 mg PO HS 03/25/20 01/23/24 Fluticasone/Umeclidin/Vilanter 1 puff INHALATION RT-DAILY 10/25/21 01/23/24 [Trelegy Ellipta 100-62.5-25] Hydrocortisone [Cortef] 30 mg PO DAILY 04/19/22 01/23/24 Gabapentin 600 mg PO DAILY 09/17/22 01/23/24 Pantoprazole Sodium [Protonix] 40 mg PO BID 09/17/22 01/23/24 Apixaban [Eliquis] 5 mg PO DAILY 05/17/23 01/23/24 Budesonide/Formoterol Fumarate 2 puff INHALATION RT-BID PRN 05/17/23 01/23/24 [Symbicort 80-4.5 Mcg Inhaler] Butalb/APAP/Caff 50-325-40Mg 1 tab PO Q4H PRN 05/17/23 01/23/24 [Fioricet 50-325-40] Clopidogrel Bisulfate [Clopidogrel] 75 mg PO DAILY 05/17/23 01/23/24 Empagliflozin [Jardiance] 10 mg PO DAILY 05/17/23 01/23/24 Ezetimibe [Zetia] 10 mg PO DAILY 05/17/23 01/23/24 Fluticasone Propion/Salmeterol 1 puff INHALATION RT-BID PRN 05/17/23 01/23/24 [Wixela 250-50 Inhub] metFORMIN HCL 1,000 mg PO BID 05/17/23 01/23/24 rOPINIRole HCL [Requip] 0.5 mg PO BID 05/17/23 01/23/24 traZODone HCL [Desyrel] 200 mg PO HS 05/17/23 01/23/24 Albuterol Inhaler [Ventolin Hfa 2 puff INHALATION RT-Q4H PRN 01/23/24 01/23/24 Inhaler] Atorvastatin [Lipitor] 40 mg PO HS 01/23/24 01/23/24 Clotrimazole/Betameth Cream 1 applic TOPICAL BID PRN 01/23/24 01/23/24 [Lotrisone] Famotidine 40 mg PO HS 01/23/24 01/23/24 HYDROcodone/APAP 7.5-325MG [[place] 1 tab PO TID 01/23/24 01/23/24 7.5-325] Isosorbide Mononitrate ER [Imdur] 30 mg PO DAILY 01/23/24 01/23/24 Metoprolol Tartrate [Lopressor] 12.5 mg PO DAILY 01/23/24 01/23/24 Tamsulosin [Flomax] 0.4 mg PO HS 01/23/24 01/23/24 Previous Rx's Medication Instructions Recorded Losartan [Cozaar] 50 mg PO DAILY #90 tab 09/18/22 Allergies Allergy/AdvReac Type Severity Reaction Status Date / Time No Known Allergies Allergy Verified 01/23/24 09:11 Review of Systems ROS Statement: Those systems with pertinent positive or pertinent negative responses have been documented in the HPI. Review of Systems: CONST: Endorses fever EYES: Denies blurry vision ENT: Endorses nasal congestion, cough C/V: Denies Chest pain RESP: Denies shortness of breath GI: Denies abdominal pain : Denies dysuria SKIN: Denies rash. MSK: Denies joint pain. NEURO: Denies headache ROS Other: All systems not noted in ROS Statement are negative. Past Medical History Past Medical History: COPD, CVA/TIA, Diabetes Mellitus, GERD/Reflux, Hearing Di sorder / Deafness, Hyperlipidemia, Myocardial Infarction ([place]), Musculoskeletal Disorder, Osteoarthritis (OA), Pneumonia, Prostate Disorder, Pulmonary Embolus (PE), Respiratory Disorder Additional Past Medical History / Comment(s): PE/RLL pneumonia/acute hypoxic failure. Portal bollous emphysema. low back pain, bilat sciatica; RLS; migraines, TIA , BPH, hearing aids, , diverticulosis. onset diabetes 08/11/19, multiple pneumothorax, O2 @2-4L [place] prn. Adrenal insufficiency Last Myocardial Infarction Date:: 12/30/2019 History of Any Multi-Drug Resistant Organisms: None Reported Past Surgical History: Heart Catheterization With Stent, Hernia Repair, Orthopedic Surgery, Prostate Surgery, Tonsillectomy Additional Past Surgical History / Comment(s): Septoplasty/ESSS, EGD, colonoscopy with benign polyp, R inguinal hernia, umbilical hernia, pain clinic procedures, atilio fundloplication. upper bilat lung lobes removed 05/2021, prostate surgery 3 weeks ago. Prostate biopsy 01/20/24. Past Anesthesia/Blood Transfusion Reactions: No Reported Reaction Additional Past Anesthesia/Blood Transfusion Reaction / Comment(s): no known family hx Date of Last Stent Placement:: Past Psychological History: No Psychological Hx Reported, PTSD Smoking Status: Former smoker Past Alcohol Use History: None Reported Past Drug Use History: None Reported - Past Family History Father History Unknown: Yes Family Medical History: No Reported History, Unable to Obtain Additional Family Medical History / Comment(s): Pt was adopted. Mother History Unknown: Yes Additional Family Medical History / Comment(s): Pt was adopted. Daughter(s) Additional Family Medical History / Comment(s): Children do not have any major medical problems. No history of blood clots. General Exam - General Exam Comments Initial Comments: General: Appears in no acute distress. Febrile. HEAD: Normal with no signs of head trauma. EYES: PERRLA, EOMI, conjunctiva normal, no discharge. ENT: Hearing grossly intact, normal oropharynx. RESPIRATORY: Coarse breath sounds bilaterally with mild wheezing. Increased work of breathing. No significant hypoxia on 2 L nasal cannula however patient typically is not on any oxygen. C/V: Regular rhythm. S1 and S2 auscultated. No peripheral edema. Tachycardic. ABD: Abdomen is soft, nondistended. No tenderness to palpation. EXT: Normal range of motion, no obvious deformity SKIN: No rashes or lesions observed on exposed skin. NEURO: Alert and oriented x 4. Cranial nerves II-XII intact. No focal sensory or strength deficits. Limitations: no limitations Course Vital Signs 01/23/24 01/23/24 01/23/24 08:49 09:36 09:51 Temperature 100.6 F H Pulse Rate 118 H 106 H 97 Respiratory 20 22 18 Rate Blood Pressure 102/71 97/55 103/70 O2 Sat by Pulse 94 L 94 L 95 Oximetry 01/23/24 01/23/24 01/23/24 10:22 11:31 11:44 Temperature 99.2 F Pulse Rate 97 85 82 Respiratory 16 20 Rate Blood Pressure 103/71 95/59 O2 Sat by Pulse 97 98 96 Oximetry 01/23/24 01/23/24 11:56 13:03 Temperature 98.7 F Pulse Rate 89 84 Respiratory 16 Rate Blood Pressure 94/68 O2 Sat by Pulse 97 Oximetry Medical Decision Making - Medical Decision Making Was pt. sent in by a medical professional or institution (, PA, WOUND CARE RN, urgent care, hospital, or snf...) When possible be specific @ -No Did you speak to anyone other than the patient for history (EMS, parent, family, police, friend...)? What history was obtained from this source @ -Spoke with EMS who provided history of fever. Did you review nursing and triage notes (agree or disagree)? Why? @ -I reviewed and agree with nursing and triage notes Were old charts reviewed (outside hosp., previous admission, EMS record, old EKG, old radiological studies, urgent care reports/EKG's, snf records)? Report findings @ -Old charts reviewed Differential Diagnosis (chest pain, altered mental status, abdominal pain women, abdominal pain men, vaginal bleeding, weakness, fever, dyspnea, syncope, headache, dizziness, GI bleed, back pain, seizure, CVA, palpatations, mental health, musculoskeletal)? @ -Differential Fever: Pneumonia, viral URI, endocarditis, myocarditis, pericarditis, otitis, sinusitis, peritonsillar Abscess, retropharyngeal Abscess, epiglottitis, peritonitis, appendicitis, Aundrea cystitis, diverticulitis, hepatitis, colitis, UTI, PID, TOA, pyelonephritis, prostatitis, epididymitis, meningitis, encephalitis, pulmonary embolism, CVA, thyroid storm, pancreatitis, adrenal crisis, cavernous sinus thrombosis, this is not meant to be an all-inclusive list. EKG interpreted by me (3pts min.). @ -As above X-rays interpreted by me (1pt min.). @ -Chest x-ray reveals a left lower lobe pneumonia. CT interpreted by me (1pt min.). @ -None done U/S interpreted by me (1pt. min.). @ -None done What testing was considered but not performed or refused? (CT, X-rays, U/S, labs)? Why? @ -None What meds were considered but not given or refused? Why? @ -None Did you discuss the management of the patient with other professionals (professionals i.e. , PA, WOUND CARE RN, lab, RT, psych nurse, social media analyst, drug safety specialist, teacher, us customs and border officer, high risk case manager)? Give summary @ -Discussed with Dr. Dennison after the admission. Was in agreement the plan and requested that I consult infectious disease. Was smoking cessation discussed for >3mins.? @ -No Was critical care preformed (if so, how long)? @ -Yes, 36 minutes. Were there social determinants of health that impacted care today? How? (Homelessness, low income, unemployed, alcoholism, drug addiction, transportation, low edu. Level, literacy, decrease access to med. care, custodial, rehab)? @ -No Was there de-escalation of care discussed even if they declined (Discuss DNR or withdrawal of care, Hospice)? DNR status @ -No What co-morbidities impacted this encounter? (DM, HTN, Smoking, COPD, CAD, Cancer, CVA, ARF, Chemo, Hep., AIDS, mental health diagnosis, sleep apnea, m orbid obesity)? @ -None Was patient admitted / discharged? Hospital course, mention meds given and route, prescriptions, significant lab abnormalities, going to OR and other pertinent info. @ -Patient presents emergency department with febrile illness. Does meet sepsis criteria upon arrival at 0855 with elevated heart rate, increased work of breathing, as well as being hypoxic requiring oxygen. Patient is also febrile. Multiple SIRS criteria. Patient empirically started on 30 cc. EKG fluids with 2 L fluid bolus and started on maintenance fluids. Patient also started empiric antibiotics vancomycin and Zosyn. Will be given a breathing treatment as well as a dose of Zofran and Tylenol for his fever. Pressure is within acceptable limits. Seems to be upper respiratory source for his current infection but we will obtain broad workup. He did have a recent prostate biopsy but has no abdominal symptoms at this time. Will continue to monitor. Patient may require CT imaging which we discussed but first we will obtain the rest of the workup. EKG shows sinus tachycardia.Chest x-ray reveals pneumonia. Laboratory studies remarkable for leukocytosis of 21. Lactic acid within normal limits. Urinalysis does show white blood cells as well as red blood cells but no bacteria that is significant. Urine culture will be sent. I do not suspect that patient has an acute UTI but this is all likely secondary to his recent procedure. However he is being covered by his empiric antibiotics. On reevaluation, patient remains unchanged. Vital signs remained stable. Patient will be admitted to the hospital at this time. He was in agreement this plan. I spoke with Dr. Dennison who accepted the admission. Requested consult to Dr. Hoffman of infectious disease. Pulmonary consult also placed to Dr. Gastelum. Undiagnosed new problem with uncertain prognosis? @ -No Drug Therapy requiring intensive monitoring for toxicity (Heparin, Nitro, Insulin, Cardizem)? @ -No Were any procedures done? @ -No Diagnosis/symptom? @ -COPD, hypoxic respiratory failure, sepsis, pneumonia Acute, or Chronic, or Acute on Chronic? @ -Acute Uncomplicated (without systemic symptoms) or Complicated (systemic symptoms)? @ -Complicated Side effects of treatment? @ -None Exacerbation, Progression, or Severe Exacerbation] @ -No Poses a threat to life or bodily function? @ -Yes - Lab Data Result diagrams: 01/23/24 09:17 01/23/24 09:17 Lab Results 01/23/24 01/23/24 01/23/24 Range/Units 09:17 09:17 09:17 WBC 21.7 H (3.8-10.6) k/uL RBC 5.43 (4.30-5.90) m/uL Hgb 15.3 (13.0-17.5) gm/dL Hct 49.4 (39.0-53.0) % MCV 90.9 (80.0-100.0) fL MCH 28.2 (25.0-35.0) pg MCHC 31.0 (31.0-37.0) g/dL RDW 13.5 (11.5-15.5) % Plt Count 210 (150-450) k/uL MPV 7.0 Neutrophils % 94 % Lymphocytes % 3 % Monocytes % 2 % Eosinophils % 0 % Basophils % 0 % Neutrophils # 20.4 H (1.3-7.7) k/uL Lymphocytes # 0.7 L (1.0-4.8) k/uL Monocytes # 0.4 (0-1.0) k/uL Eosinophils # 0.1 (0-0.7) k/uL Basophils # 0.1 (0-0.2) k/uL PT 10.6 (10.0-12.5) sec INR 1.0 (<1.2) APTT 23.9 (22.0-30.0) sec Sodium (137-145) mmol/L Potassium (3.5-5.1) mmol/L Chloride (98-107) mmol/L Carbon Dioxide (22-30) mmol/L Anion Gap mmol/L BUN (9-20) mg/dL Creatinine (0.66-1.25) mg/dL Est GFR (CKD-EPI)AfAm (>60 ml/min/1.73 sqM) Est GFR (CKD-EPI)NonAf (>60 ml/min/1.73 sqM) Glucose (74-99) mg/dL Plasma Lactic Acid Elon (0.7-2.0) mmol/L Calcium (8.4-10.2) mg/dL Magnesium (1.6-2.3) mg/dL Total Bilirubin (0.2-1.3) mg/dL AST (17-59) U/L ALT (4-49) U/L Alkaline Phosphatase (38-126) U/L Total Protein (6.3-8.2) g/dL Albumin (3.5-5.0) g/dL Urine Color Yellow Urine Appearance Cloudy (Clear) Urine pH 6.0 (5.0-8.0) Ur Specific Walker 1.037 H (1.001-1.035) Urine Protein 1+ H (Negative) Urine Glucose (UA) 4+ H (Negative) Urine Ketones 1+ H (Negative) Urine Blood Moderate H (Negative) Urine Nitrite Negative (Negative) Urine Bilirubin Negative (Negative) Urine Urobilinogen 3.0 (<2.0) mg/dL Ur Leukocyte Esterase Moderate H (Negative) Urine RBC >182 H (0-5) /hpf Urine WBC 181 H (0-5) /hpf Ur Squamous Epith Cells <1 (0-4) /hpf Urine Bacteria Rare H (None) /hpf Urine Mucus Rare H (None) /hpf Influenza Type A (PCR) (Not Detectd) Influenza Type B (PCR) (Not Detectd) RSV (PCR) (Not Detectd) SARS-CoV-2 (PCR) (Not Detectd) 01/23/24 01/23/24 01/23/24 Range/Units 09:17 09:17 09:17 WBC (3.8-10.6) k/uL RBC (4.30-5.90) m/uL Hgb (13.0-17.5) gm/dL Hct (39.0-53.0) % MCV (80.0-100.0) fL MCH (25.0-35.0) pg MCHC (31.0-37.0) g/dL RDW (11.5-15.5) % Plt Count (150-450) k/uL MPV Neutrophils % % Lymphocytes % % Monocytes % % Eosinophils % % Basophils % % Neutrophils # (1.3-7.7) k/uL Lymphocytes # (1.0-4.8) k/uL Monocytes # (0-1.0) k/uL Eosinophils # (0-0.7) k/uL Basophils # (0-0.2) k/uL PT (10.0-12.5) sec INR (<1.2) APTT (22.0-30.0) sec Sodium 138 (137-145) mmol/L Potassium 3.5 (3.5-5.1) mmol/L Chloride 108 H (98-107) mmol/L Carbon Dioxide 24 (22-30) mmol/L Anion Gap 6 mmol/L BUN 19 (9-20) mg/dL Creatinine 0.90 (0.66-1.25) mg/dL Est GFR (CKD-EPI)AfAm >90 (>60 ml/min/1.73 sqM) Est GFR (CKD-EPI)NonAf 83 (>60 ml/min/1.73 sqM) Glucose 156 H (74-99) mg/dL Plasma Lactic Acid Leon 1.1 (0.7-2.0) mmol/L Calcium 8.3 L (8.4-10.2) mg/dL Magnesium 1.9 (1.6-2.3) mg/dL Total Bilirubin 1.3 (0.2-1.3) mg/dL AST 17 (17-59) U/L ALT 15 (4-49) U/L Alkaline Phosphatase 92 (38-126) U/L Total Protein 5.3 L (6.3-8.2) g/dL Albumin 2.9 L (3.5-5.0) g/dL Urine Color Urine Appearance (Clear) Urine pH (5.0-8.0) Ur Specific Walker (1.001-1.035) Urine Protein (Negative) Urine Glucose (UA) (Negative) Urine Ketones (Negative) Urine Blood (Negative) Urine Nitrite (Negative) Urine Bilirubin (Negative) Urine Urobilinogen (<2.0) mg/dL Ur Leukocyte Esterase (Negative) Urine RBC (0-5) /hpf Urine WBC (0-5) /hpf Ur Squamous Epith Cells (0-4) /hpf Urine Bacteria (None) /hpf Urine Mucus (None) /hpf Influenza Type A (PCR) Not Detected (Not Detectd) Influenza Type B (PCR) Not Detected (Not Detectd) RSV (PCR) Not Detected (Not Detectd) SARS-CoV-2 (PCR) Not Detected (Not Detectd) - EKG Data -: EKG Interpreted by Me EKG Comments: 12-lead Electrocardiogram Interpretation Note EKG was reviewed and interpreted by myself. 12-lead ECG performed at 0911 is interpreted by me as revealing sinus tachycardia at a rate of 120 beats per minute. Left axis deviation. TX interval is 173 ms, QRS duration is 87 ms, QTc is 400 ms.. There were no ST or T wave abnormalities to suggest myocardial ischemia or injury. R wave progression across the precordium was satisfactory. By my interpretation this EKG is non-diagnostic for acute ischemia. Critical Care Time Critical Care Time: Yes Total Critical Care Time: 36 Disposition Clinical Impression: Pneumonia, Sepsis, COPD (chronic obstructive pulmonary disease), Hypoxic respiratory failure Disposition: ADMITTED IP TO THIS HOSP Condition: Serious Time of Disposition: 11:31
[2024-01-23] MEDS: SODIUM CHLORIDE 0.9% 1,000 ML IV STA ×4 (09:23→11:27)
[2024-01-23] MEDS: PIPERACILLIN-TAZOBACTAM 3.375 GM in SODIUM CHLORIDE 0.9% 100 ML IVPB STA (09:33)
[2024-01-23 09:48] LABS: Basophils # (A) 0.1 k/uL (0-0.2); Basophils % (A) 0 %; Eosinophils # (A) 0.1 k/uL (0-0.7); Eosinophils % (A) 0 %; HCT 49.4 % (39.0-53.0); HGB 15.3 gm/dL (13.0-17.5); Lymphocytes # (A) 0.7 k/uL (1.0-4.8); Lymphocytes % (A) 3 %; MCH 28.2 pg (25.0-35.0); MCV 90.9 fL (80.0-100.0); Monocytes # (A) 0.4 k/uL (0-1.0); Monocytes % (A) 2 %; Neutrophils # (A) 20.4 k/uL (1.3-7.7); Neutrophils % (A) 94 %; Platelet Count 210 k/uL (150-450); RBC 5.43 m/uL (4.30-5.90); RDW 13.5 % (11.5-15.5); WBC 21.7 k/uL (3.8-10.6)
[2024-01-23 09:58] LABS: Partial Thromboplastin Time 23.9 sec (22.0-30.0); Prothrombin Time 10.6 sec (10.0-12.5)
[2024-01-23 10:05] LABS: Appearance,Urine Cloudy (Clear); Bacteria,Urine Rare /hpf; Bilirubin,Urine Negative (Negative); Blood,Urine Moderate (Negative); Color,Urine Yellow; Glucose,Urine (UA) 4+ (Negative); Ketones,Urine 1+ (Negative); Leukocyte Esterase,Urine Moderate (Negative); Mucus,Urine Rare /hpf; Nitrite,Urine Negative (Negative); Protein,Urine 1+ (Negative); RBC,Urine >182 /hpf (0-5); Specific Gravity,Urine 1.037 (1.001-1.035); Squamous Epithelial Cell,Urine <1 /hpf (0-4); WBC,Urine 181 /hpf (0-5)
[2024-01-23 10:10] LABS: ALT 15 U/L (4-49); AST 17 U/L (17-59); African American GFR (CKD) >90 (>60 ml/min/1.73 sqM); Albumin 2.9 g/dL (3.5-5.0); Alkaline Phosphatase 92 U/L (38-126); Anion Gap 6 mmol/L; Blood Urea Nitrogen 19 mg/dL (9-20); Calcium 8.3 mg/dL (8.4-10.2); Carbon Dioxide 24 mmol/L (22-30); Chloride 108 mmol/L (98-107); Glucose 156 mg/dL (74-99); Magnesium 1.9 mg/dL (1.6-2.3); Non-African American GFR(CKD) 83 (>60 ml/min/1.73 sqM); Potassium 3.5 mmol/L (3.5-5.1); Sodium 138 mmol/L (137-145); Total Bilirubin 1.3 mg/dL (0.2-1.3); Total Protein 5.3 g/dL (6.3-8.2)
--- NOTE | 2024-01-23 10:33 | XR ---
EXAMINATION TYPE: XR chest 2V DATE OF EXAM: 01/23/2024 COMPARISON: 10/07/2023 INDICATION: Weakness history of sepsis TECHNIQUE: Frontal and lateral views of the chest are obtained. FINDINGS: The heart size is normal. The pulmonary vasculature is normal. Minimal patchy infiltrate is at the left base. Prior right lung base infiltrate has resolved.. IMPRESSION: 1. Mild left lower lobe infiltrate. Correlate for subsegmental atelectasis or early pneumonia.
[2024-01-23] MEDS: VANCOMYCIN 1,500 MG in SODIUM CHLORIDE 0.9% 500 ML 500 ML IVPB ONE (11:29)
[2024-01-23] MEDS ORDERED: ONDANSETRON 4 MG/2 ML VIAL IVP PRN (11:32)
[2024-01-23] MEDS ORDERED: ACETAMINOPHEN TAB 325 MG TAB PO PRN (11:32)
[2024-01-23] MEDS ORDERED: NALOXONE 0.4 MG/ML 1 ML VIAL IV PRN (11:32)
[2024-01-23] MEDS: IPRATROPIUM-ALBUTEROL 3 ML NEB INHALATION STA (11:42)
[2024-01-23] MEDS: IPRATROPIUM-ALBUTEROL 3 ML NEB INHALATION SCH (11:43)
[2024-01-23] MEDS ORDERED: SYMBICORT 80-4.5 MCG INHALER INHALATION PRN (13:55)
[2024-01-23] MEDS ORDERED: NON FORMULARY DRUG (Fluticasone Propion/Salmeterol [Wixela 250-50 Inhub] 1 EACH Blst.W.Dev INHALATION PRN (13:55)
[2024-01-23] MEDS: HYDROcodone/APAP 7.5-325MG 1 EACH TAB PO PRN (15:29)
[2024-01-23] MEDS ORDERED: HYDROcodone/APAP 7.5-325MG 1 EACH TAB PO SCH (16:00)
[2024-01-23] MEDS: PIPERACILLIN-TAZOBACTAM 3.375 GM in SODIUM CHLORIDE 0.9% 100 ML IVPB SCH (16:47)
--- NOTE | 2024-01-23 17:17 | P.CNPUL ---
History of Present Illness Consult date: 01/23/24 Requesting physician: Kevin Dennison Reason for consult: pneumonia Chief complaint: Fever and cough History of present illness: This is a 73-year-old white male with history of multiple medical problems including COPD, bullous emphysema, recurrent pneumothoraces in the past, history of pulmonary embolism, normally sees Dr. Rascon on outpatient basis. On 01/21/2024, patient underwent multiple prostate biopsies which came back negative for malignancy. Today the patient came into the ER with 1 day history of fever, cough, cough is productive with yellow phlegm, chills, and according to him he was probably a bit confused this morning. At that time he was having severe chills. Patient had no symptoms related to his prostate biopsy, no dysuria frequency or urgency. Did feel a bit nauseated earlier today. But no vomiting. At any rate workup in the ER included a CBC which showed leukocytosis with WBC count of 21.7. Normal electrolytes, normal basic metabolic profile, urine however showed evidence of pyuria and hematuria. With leukocyte Estrace positive screening for influenza A B RSV and COVID-19 were all negative chest x- ray showed left lower lobe infiltrate,/atelectasis hence the patient was admitted and this consult was initiated. Saw the patient in the ER, patient did not seem to be in distress, he is on 2 L nasal cannula with O2 sats of 95%, hemodynamically stable, blood pressure 96/69 with a mean of 78., Heart rate of 72. He had a temp of 98.7 Review of Systems CONSTITUTIONAL: as noted in HPI, low-grade fever, feels generally weak. HEENT: No recent visual problems or hearing problems. Denied any sore throat. CARDIOVASCULAR: negative. PULMONARY: No shortness of breath, no cough, no hemoptysis. GASTROINTESTINAL: negative. Except for minimal nausea NEUROLOGICAL: No headaches, no weakness, no numbness. HEMATOLOGICAL: Denies any bleeding or petechiae. -GENITOURINARY: Recent prostate biopsies done on 01/20 MUSCULOSKELETAL/RHEUMATOLOGICAL: negative. ENDOCRINE: Denies any polyuria or polydipsia. Past Medical History Past Medical History: COPD, CVA/TIA, Diabetes Mellitus, GERD/Reflux, Hearing Disorder / Deafness, Hyperlipidemia, Myocardial Infarction ([place]), Musculoskeletal Disorder, Osteoarthritis (OA), Pneumonia, Prostate Disorder, Pulmonary Embolus (PE), Respiratory Disorder Additional Past Medical History / Comment(s): PE/RLL pneumonia/acute hypoxic failure. Portal bollous emphysema. low back pain, bilat sciatica; RLS; migraines, TIA , BPH, hearing aids, , diverticulosis. onset diabetes 08/11/19, multiple pneumothorax, O2 @2-4L [place] prn. Adrenal insufficiency Last Myocardial Infarction Date:: 12/30/2019 History of Any Multi-Drug Resistant Organisms: None Reported Past Surgical History: Heart Catheterization With Stent, Hernia Repair, Orthopedic Surgery, Prostate Surgery, Tonsillectomy Additional Past Surgical History / Comment(s): Septoplasty/ESSS, EGD, colonoscopy with benign polyp, R inguinal hernia, umbilical hernia, pain clinic procedures, atilio fundloplication. upper bilat lung lobes removed 05/2021, prostate surgery 3 weeks ago. Prostate biopsy 01/20/24. Past Anesthesia/Blood Transfusion Reactions: No Reported Reaction Additional Past Anesthesia/Blood Transfusion Reaction / Comment(s): no known family hx Date of Last Stent Placement:: Past Psychological History: No Psychological Hx Reported, PTSD Smoking Status: Former smoker Past Alcohol Use History: None Reported Past Drug Use History: None Reported - Past Family History Father History Unknown: Yes Family Medical History: No Reported History, Unable to Obtain Additional Family Medical History / Comment(s): Pt was adopted. Mother History Unknown: Yes Additional Family Medical History / Comment(s): Pt was adopted. Daughter(s) Additional Family Medical History / Comment(s): Children do not have any major medical problems. No history of blood clots. Medications and Allergies Home Medications Medication Instructions Recorded Confirmed Type Gabapentin 1,200 mg PO HS 04/09/16 01/23/24 History ALPRAZolam [Xanax] 1 mg PO HS 03/25/20 01/23/24 History Fluticasone/Umeclidin/Vilanter 1 puff INHALATION RT-DAILY 10/25/21 01/23/24 History [Trelegy Ellipta 100-62.5-25] Hydrocortisone [Cortef] 30 mg PO DAILY 04/19/22 01/23/24 History Gabapentin 600 mg PO DAILY 09/17/22 01/23/24 History Pantoprazole Sodium [Protonix] 40 mg PO BID 09/17/22 01/23/24 History Losartan [Cozaar] 50 mg PO DAILY #90 tab 09/18/22 01/23/24 Rx Apixaban [Eliquis] 5 mg PO DAILY 05/17/23 01/23/24 History Budesonide/Formoterol Fumarate 2 puff INHALATION RT-BID PRN 05/17/23 01/23/24 History [Symbicort 80-4.5 Mcg Inhaler] Butalb/APAP/Caff 50-325-40Mg 1 tab PO Q4H PRN 05/17/23 01/23/24 History [Fioricet 50-325-40] Clopidogrel Bisulfate [Clopidogrel] 75 mg PO DAILY 05/17/23 01/23/24 History Empagliflozin [Jardiance] 10 mg PO DAILY 05/17/23 01/23/24 History Ezetimibe [Zetia] 10 mg PO DAILY 05/17/23 01/23/24 History Fluticasone Propion/Salmeterol 1 puff INHALATION RT-BID PRN 05/17/23 01/23/24 History [Wixela 250-50 Inhub] metFORMIN HCL 1,000 mg PO BID 05/17/23 01/23/24 History rOPINIRole HCL [Requip] 0.5 mg PO BID 05/17/23 01/23/24 History traZODone HCL [Desyrel] 200 mg PO HS 05/17/23 01/23/24 History Albuterol Inhaler [Ventolin Hfa 2 puff INHALATION RT-Q4H PRN 01/23/24 01/23/24 History Inhaler] Atorvastatin [Lipitor] 40 mg PO HS 01/23/24 01/23/24 History Clotrimazole/Betameth Cream 1 applic TOPICAL BID PRN 01/23/24 01/23/24 History [Lotrisone] Famotidine 40 mg PO HS 01/23/24 01/23/24 History HYDROcodone/APAP 7.5-325MG [[place] 1 tab PO TID 01/23/24 01/23/24 History 7.5-325] Isosorbide Mononitrate ER [Imdur] 30 mg PO DAILY 01/23/24 01/23/24 History Metoprolol Tartrate [Lopressor] 12.5 mg PO DAILY 01/23/24 01/23/24 History Tamsulosin [Flomax] 0.4 mg PO HS 01/23/24 01/23/24 History Allergies Allergy/AdvReac Type Severity Reaction Status Date / Time No Known Allergies Allergy Verified 01/23/24 09:11 Physical Exam Vitals: Vital Signs Temp Pulse Resp BP Pulse Ox 01/23/24 16:50 72 18 96/69 95 01/23/24 16:38 68 01/23/24 16:25 62 01/23/24 15:22 98.0 F 66 16 93/56 94 L 01/23/24 13:03 98.7 F 84 16 94/68 97 01/23/24 11:56 89 01/23/24 11:44 82 96 01/23/24 11:31 85 20 95/59 98 01/23/24 10:22 99.2 F 97 16 103/71 97 01/23/24 09:51 97 18 103/70 95 01/23/24 09:36 106 H 22 97/55 94 L 01/23/24 08:49 100.6 F H 118 H 20 102/71 94 L Intake and Output 01/23/24 01/23/24 01/23/24 06:59 14:59 22:59 Other: Voiding Method Toilet Urinal Weight 83.915 kg Physical Exam: Revealed 73-year-old white male in no distress.on 2 L nasal cannula Head: Atraumatic, normocephalic. HEENT:[Neck is supple.] [No neck masses.] [No thyromegaly.] [No JVD.] Chest: [diminished breath sound bilaterally no rhonchi or wheezes Cardiac Exam: [Normal S1 and S2, no S3 gallop, no murmur.] Abdomen: [Soft, nontender, no megaly, no rebound, no guarding, normal bowel sounds.] Extremities: [No clubbing, no edema, no cyanosis.] Neurological Exam: [No focal neurologic deficit.]alert oriented 3. Psychiatric: Normal mood, affect and angela mental status examination. skin: No rashes Results - Laboratory Findings CBC and BMP: 01/23/24 09:17 01/23/24 09:17 PT/INR, D-dimer PT 10.6 sec (10.0-12.5) 01/23/24 09:17 INR 1.0 (<1.2) 01/23/24 09:17 Abnormal lab findings: Abnormal Labs 01/23/24 01/23/24 01/23/24 09:17 09:17 09:17 WBC 21.7 H Neutrophils # 20.4 H Lymphocytes # 0.7 L Chloride 108 H Glucose 156 H Calcium 8.3 L Total Protein 5.3 L Albumin 2.9 L Ur Specific [place] 1.037 H Urine Protein 1+ H Urine Glucose (UA) 4+ H Urine Ketones 1+ H Urine Blood Moderate H Ur Leukocyte Esterase Moderate H Urine RBC >182 H Urine WBC 181 H Urine Bacteria Rare H Urine Mucus Rare H - Diagnostic Findings Chest x-ray: image reviewed (Chest x-ray as noted in HPI, atelectasis, possible infiltrate in the left lower lobe) Assessment and Plan Assessment: Impression: Acute sepsis, sources could be urinary or pulmonary in nature I believe is more urinary in nature. Acute urinary tract infection Possible left lower lobe pneumonia Underlying COPD presently inactive Leukocytosis secondary to above Remote history of pulmonary embolism History of CVA/TIA History of recent prostate biopsies Degenerative joint disease History of bullous emphysema and previous volume reduction History of pneumothoraces Type 2 diabetes without complications Recommendations: Resume home meds Continue bronchodilators Continue antibiotics, patient is receiving cefepime empirically Check blood cultures urine cultures and sputum cultures Continue Symbicort Will continue to follow Time with Patient: Greater than 30
[2024-01-23 17:56] LABS: Glucose,Whole Blood 188 mg/dL (70-110)
--- NOTE | 2024-01-23 20:38 | P.HPIM ---
History of Present Illness H&P Date: 01/23/24 HISTORY OF PRESENT ILLNESS: 73-year-old male one of our office patient who is known to have history of COPD, recurrent pneumothorax, history of pulmonary embolism, history of hypertension, hyperlipidemia, previous history of myocardial infarction with atherosclerotic heart disease who also has recurrent pneumonia and respiratory failure in the past who apparently had seen urology with elevated PSA schedule and had prostate biopsy 48 hours earlier. Patient presented to the emergency department at [facility] today because of fever chills slight sputum production with slight increase lower abdominal discomfort with slight change in urine his symptoms become quite with severe combined between urinary tract and upper respiratory. Was seen and evaluated Laboratory value showed white blood cell of 21,700 with left shift, electrolyte with normal creatinine blood sugar was 156, urine was very positive with 1+ ketones, 1+ protein, 4+ sugar, moderate leukocyte with WBC and RBC. His RSV COVID and influenza were all negative. Chest x-ray shows mild left lower lobe infiltrate with sign of COPD. Culture was done and starting patient off Zosyn and vancomycin initially, updraft treatment along with Solu-Medrol consult pulmonary and infectious disease patient be admitted to the hospital for combination of left lower lobe pneumonia along with sepsis with urinary tract infection. REVIEW OF SYSTEMS: CONSTITUTIONAL: Well-developed no acute respiratory distress. EYES: No icterus sclerae, no conjunctivitis. EARS, NOSE, MOUTH, THROAT, and FACE: No sore throat, lymphadenopathy, carotid bruits or deformity. RESPIRATORY: Slight shortness of breath mild cough and wheezes. CARDIOVASCULAR: Positive PND orthopnea palpitation. GASTROINTESTINAL: No Abd pain, Nausea or vomiting, no Diarrhea or constipation, No GI Bleed, no distention or masses. GENITOURINARY: Post prostate biopsy with slight hematuria and slight discomfort. INTEGUMENT/BREAST: Negative for any muscular injury with mild osteoarthritis.. HEMATOLOGIC/LYMPHATIC: Negative for bleed or purpura. MUSCULOSKELTAL: Generalized muscle and joint pain. NEURLOGICAL: No LOC, Sz or syncope, blurred vision dizziness or abnormality.. BEHAVIORAL/PSYCH: Negative. ENDOCRINE: Negative. PHYSICAL EXAMINATION: General Appearance: Alert, cooperative, no distress, appears stated age. Neck HEENT: Supple, no lymphadenopathy, no thyroid enlargement, no carotid bruits. Lungs: Decreased breath sound in the bases only specially left side with mild rhonchi with minimal expiratory wheezes slight crackles and very limited area on the lower part of the lung. Chest Wall: Decreased expansion with deep inspiration no tenderness and no deformity was found on exam, no costochondral pain or discomfort. Heart: Regular rate and rhythm, S1, S2 normal mild tachycardia with systolic murmur. Abdomen: Slight lower abdominal region discomfort with no rebound or rigidity. Extremities: Extremities normal, atraumatic, no cyanosis or edema. Pulses: 2+ and symmetric. Skin: Skin color, texture, tugor normal, no rashes or lesions. Neurologic: Alert oriented x3 cranial nerves II through XII intact, no motor deficit, no abnormal balance or gait. ASSESSMENT AND PLAN: _Sepsis: Most likely source of urinary tract infection versus left lower lobe pneumonia, patient was getting vancomycin and Zosyn and was switched to cefepime after seeing pulmonary. Awaiting for culture and infectious disease consultation. _Possible left lower lobe pneumonia: With elevated white blood cell and finding on x-ray patient was switched to cefepime will continue Solu-Medrol along with updraft treatment. _UTI with sepsis: Most likely underlying is a biopsy in the rotation from but he had 2 days ago, UA is very positive patient will benefit from better coverage for urinary tract infection or sepsis with UTI. Will continue Flomax as well. _Recent prostate biopsy still waiting for the result but was probably an underlying problem with the leukocytosis and UTI at this point. _History of CVA: No residual at this point still on anticoagulation with Plavix along with better control of blood sugar, cholesterol and blood pressure. _COPD with mild exacerbation: Solu-Medrol along with Symbicort and albuterol/ipratropium will be done. _ Atherosclerotic heart disease: No chest pain or angina continue metoprolol, isosorbide mononitrate, losartan, Zetia along with Jardiance. Still on Plavix as well. _Anticoagulation: With previous history of pulmonary embolism, still on Eliquis 5 mg twice a day. _Hyperlipidemia: Continue combination of atorvastatin 40 mg a day along with Zetia 10 mg a day. _Severe neuropathy: Continue gabapentin total of 600 mg in the morning and 1200 mg at night. _Type 2 diabetes: He is to remain on metformin 1000 mg twice a day, Jardiance 10 mg daily will continue Accu-Chek with sliding scale coverage. _Hypertension: Remain on metoprolol titrate 12.5 mg daily along with losartan 50 mg a day. _Severe GERD/GI prophylaxis: Remain on pantoprazole 40 mg a day DVT prophylaxis: He is on Eliquis. CODE STATUS: Full code. Admit patient to the inpatient service for more than 2 night stay. Past Medical History Past Medical History: COPD, CVA/TIA, Diabetes Mellitus, GERD/Reflux, Hearing Disorder / Deafness, Hyperlipidemia, Myocardial Infarction ([place]), Musculoskeletal Disorder, Osteoarthritis (OA), Pneumonia, Prostate Disorder, Pulmonary Embolus (PE), Respiratory Disorder Additional Past Medical History / Comment(s): PE/RLL pneumonia/acute hypoxic failure. Portal bollous emphysema. low back pain, bilat sciatica; RLS; migraines, TIA , BPH, hearing aids, , diverticulosis. onset diabetes 08/11/19, multiple pneumothorax, O2 @2-4L [place] prn. Adrenal insufficiency Last Myocardial Infarction Date:: 12/30/2019 History of Any Multi-Drug Resistant Organisms: None Reported Past Surgical History: Heart Catheterization With Stent, Hernia Repair, Orthopedic Surgery, Prostate Surgery, Tonsillectomy Additional Past Surgical History / Comment(s): Septoplasty/ESSS, EGD, colonoscopy with benign polyp, R inguinal hernia, umbilical hernia, pain clinic procedures, atilio fundloplication. upper bilat lung lobes removed 05/2021, prostate surgery 3 weeks ago. Prostate biopsy 01/20/24. Past Anesthesia/Blood Transfusion Reactions: No Reported Reaction Additional Past Anesthesia/Blood Transfusion Reaction / Comment(s): no known family hx Date of Last Stent Placement:: Smoking Status: Former smoker - Past Family History Father History Unknown: Yes Family Medical History: No Reported History, Unable to Obtain Additional Family Medical History / Comment(s): Pt was adopted. Mother History Unknown: Yes Additional Family Medical History / Comment(s): Pt was adopted. Daughter(s) Additional Family Medical History / Comment(s): Children do not have any major medical problems. No history of blood clots. Medications and Allergies Home Medications Medication Instructions Recorded Confirmed Type Gabapentin 1,200 mg PO HS 04/09/16 01/23/24 History ALPRAZolam [Xanax] 1 mg PO HS 03/25/20 01/23/24 History Fluticasone/Umeclidin/Vilanter 1 puff INHALATION RT-DAILY 10/25/21 01/23/24 History [[place] Ellipta 100-62.5-25] Hydrocortisone [Cortef] 30 mg PO DAILY 04/19/22 01/23/24 History Gabapentin 600 mg PO DAILY 09/17/22 01/23/24 History Pantoprazole Sodium [Protonix] 40 mg PO BID 09/17/22 01/23/24 History Losartan [Cozaar] 50 mg PO DAILY #90 tab 09/18/22 01/23/24 Rx Apixaban [Eliquis] 5 mg PO DAILY 05/17/23 01/23/24 History Budesonide/Formoterol Fumarate 2 puff INHALATION RT-BID PRN 05/17/23 01/23/24 History [Symbicort 80-4.5 Mcg Inhaler] Butalb/APAP/Caff 50-325-40Mg 1 tab PO Q4H PRN 05/17/23 01/23/24 History [Fioricet 50-325-40] Clopidogrel Bisulfate [Clopidogrel] 75 mg PO DAILY 05/17/23 01/23/24 History Empagliflozin [Jardiance] 10 mg PO DAILY 05/17/23 01/23/24 History Ezetimibe [Zetia] 10 mg PO DAILY 05/17/23 01/23/24 History Fluticasone Propion/Salmeterol 1 puff INHALATION RT-BID PRN 05/17/23 01/23/24 History [Wixela 250-50 Inhub] metFORMIN HCL 1,000 mg PO BID 05/17/23 01/23/24 History rOPINIRole HCL [Requip] 0.5 mg PO BID 05/17/23 01/23/24 History traZODone HCL [Desyrel] 200 mg PO HS 05/17/23 01/23/24 History Albuterol Inhaler [Ventolin Hfa 2 puff INHALATION RT-Q4H PRN 01/23/24 01/23/24 History Inhaler] Atorvastatin [Lipitor] 40 mg PO HS 01/23/24 01/23/24 History Clotrimazole/Betameth Cream 1 applic TOPICAL BID PRN 01/23/24 01/23/24 History [Lotrisone] Famotidine 40 mg PO HS 01/23/24 01/23/24 History HYDROcodone/APAP 7.5-325MG [[place] 1 tab PO TID 01/23/24 01/23/24 History 7.5-325] Isosorbide Mononitrate ER [Imdur] 30 mg PO DAILY 01/23/24 01/23/24 History Metoprolol Tartrate [Lopressor] 12.5 mg PO DAILY 01/23/24 01/23/24 History Tamsulosin [Flomax] 0.4 mg PO HS 01/23/24 01/23/24 History Allergies Allergy/AdvReac Type Severity Reaction Status Date / Time No Known Allergies Allergy Verified 01/23/24 09:11 Physical Exam Vitals: Vital Signs Temp Pulse Resp BP Pulse Ox 01/23/24 17:23 97.9 F 75 18 118/60 94 L 01/23/24 16:50 72 18 96/69 95 01/23/24 16:38 68 01/23/24 16:25 62 01/23/24 15:22 98.0 F 66 16 93/56 94 L 01/23/24 13:03 98.7 F 84 16 94/68 97 01/23/24 11:56 89 01/23/24 11:44 82 96 01/23/24 11:31 85 20 95/59 98 01/23/24 10:22 99.2 F 97 16 103/71 97 01/23/24 09:51 97 18 103/70 95 01/23/24 09:36 106 H 22 97/55 94 L 01/23/24 08:49 100.6 F H 118 H 20 102/71 94 L Intake and Output 01/23/24 01/23/24 01/23/24 06:59 14:59 22:59 Other: Voiding Method Toilet Urinal Weight 83.915 kg 83.915 kg Results CBC & Chem 7: 01/23/24 09:17 01/23/24 09:17 Labs: Abnormal Lab Results - Last 24 Hours (Table) 01/23/24 01/23/24 01/23/24 Range/Units 09:17 09:17 09:17 WBC 21.7 H (3.8-10.6) k/uL Neutrophils # 20.4 H (1.3-7.7) k/uL Lymphocytes # 0.7 L (1.0-4.8) k/uL Chloride 108 H (98-107) mmol/L Glucose 156 H (74-99) mg/dL POC Glucose (mg/dL) (70-110) mg/dL Calcium 8.3 L (8.4-10.2) mg/dL Total Protein 5.3 L (6.3-8.2) g/dL Albumin 2.9 L (3.5-5.0) g/dL Ur Specific [place] 1.037 H (1.001-1.035) Urine Protein 1+ H (Negative) Urine Glucose (UA) 4+ H (Negative) Urine Ketones 1+ H (Negative) Urine Blood Moderate H (Negative) Ur Leukocyte Esterase Moderate H (Negative) Urine RBC >182 H (0-5) /hpf Urine WBC 181 H (0-5) /hpf Urine Bacteria Rare H (None) /hpf Urine Mucus Rare H (None) /hpf 01/23/24 Range/Units 17:54 WBC (3.8-10.6) k/uL Neutrophils # (1.3-7.7) k/uL Lymphocytes # (1.0-4.8) k/uL Chloride (98-107) mmol/L Glucose (74-99) mg/dL POC Glucose (mg/dL) 188 H (70-110) mg/dL Calcium (8.4-10.2) mg/dL Total Protein (6.3-8.2) g/dL Albumin (3.5-5.0) g/dL Ur Specific [place] (1.001-1.035) Urine Protein (Negative) Urine Glucose (UA) (Negative) Urine Ketones (Negative) Urine Blood (Negative) Ur Leukocyte Esterase (Negative) Urine RBC (0-5) /hpf Urine WBC (0-5) /hpf Urine Bacteria (None) /hpf Urine Mucus (None) /hpf Thrombosis Risk Factor Assmnt - Choose All That Apply Each Risk Factor Represents 2 Points: Age 61-74 years Thrombosis Risk Factor Assessment Total Risk Factor Score: 2 Thrombosis Risk Factor Assessment Level: Low Risk
[2024-01-23] MEDS ORDERED: methylPREDNISolone SOD SUCCI 40 MG/ML 1 ML VIAL IV SCH (21:00)
[2024-01-23] MEDS ORDERED: ALPRAZolam 1 MG TAB PO SCH (21:00)
--- NOTE | 2024-01-23 21:03 | P.CONS ---
History of Present Illness - Reason for Consult Consult date: 01/23/24 Pneumonia, sepsis Requesting physician: Jc Gonzalez - Chief Complaint Fever with rigors and chills x 1 day - History of Present Illness Patient is a 73-year-old male past medical history significant for diabetes mellitus reflux hyperlipidemia pneumonia COPD CVA TIA patient recently did have a prostate biopsy done in the outpatient setting on 01/20/2024, patient now presenting the hospital with fever rigors and chills that started last night patient also complaining of having some difficulty urination and burning noticed to have some blood in the urine which he thought was normal for postbiopsy and did have some deep pelvic pain mostly mild to moderate intensity without any radiation patient denies having any significant headache or URI symptoms no chest pain or shortness of breath did have minimal cough no sputum production no abdominal pain or any diarrhea with the symptoms the patient presented to hospital on arrival to the ER the patient did have a fever of 100.6 F patient was not tachycardic or hypotensive no significant hypoxemia currently on a 2 L nasal cannula oxygen patient did have white count 21.7 creatinine 0.90 liver enzymes are normal urine has been positive influenza RSV COVID testing was negative patient chest x-ray concerning for left lower lobe infiltrate patient was started on vancomycin and Zosyn infectious was consulted for further management of antibiotic therapy Review of Systems Positive point and negatives has been mentioned in the HPI, complete review of systems was performed and all other systems are negative Past Medical History Past Medical History: COPD, CVA/TIA, Diabetes Mellitus, GERD/Reflux, Hearing Disorder / Deafness, Hyperlipidemia, Myocardial Infarction (VT), Musculoskeletal Disorder, Osteoarthritis (OA), Pneumonia, Prostate Disorder, Pulmonary Embolus (PE), Respiratory Disorder Additional Past Medical History / Comment(s): PE/RLL pneumonia/acute hypoxic failure. Portal bollous emphysema. low back pain, bilat sciatica; RLS; migraines, TIA , BPH, hearing aids, , diverticulosis. onset diabetes 08/11/19, multiple pneumothorax, O2 @2-4L NC prn. Adrenal insufficiency Last Myocardial Infarction Date:: 12/30/2019 History of Any Multi-Drug Resistant Organisms: None Reported Past Surgical History: Heart Catheterization With Stent, Hernia Repair, Orthopedic Surgery, Prostate Surgery, Tonsillectomy Additional Past Surgical History / Comment(s): Septoplasty/ESSS, EGD, colonoscopy with benign polyp, R inguinal hernia, umbilical hernia, pain clinic procedures, atilio fundloplication. upper bilat lung lobes removed 05/2021, prostate surgery 3 weeks ago. Prostate biopsy 01/20/24. Past Anesthesia/Blood Transfusion Reactions: No Reported Reaction Additional Past Anesthesia/Blood Transfusion Reaction / Comm: no known family hx Date of Last Stent Placement:: \2019 Past Psychological History: No Psychological Hx Reported, PTSD Smoking Status: Former smoker Past Alcohol Use History: None Reported Past Drug Use History: None Reported - Past Family History Father History Unknown: Yes Family Medical History: No Reported History, Unable to Obtain Additional Family Medical History / Comment(s): Pt was adopted. Mother History Unknown: Yes Additional Family Medical History / Comment(s): Pt was adopted. Daughter(s) Additional Family Medical History / Comment(s): Children do not have any major medical problems. No history of blood clots. Medications and Allergies Home Medications Medication Instructions Recorded Confirmed Type Gabapentin 1,200 mg PO HS 04/09/16 01/23/24 History ALPRAZolam [Xanax] 1 mg PO HS 03/25/20 01/23/24 History Fluticasone/Umeclidin/Vilanter 1 puff INHALATION RT-DAILY 10/25/21 01/23/24 History [Trelegy Ellipta 100-62.5-25] Hydrocortisone [Cortef] 30 mg PO DAILY 04/19/22 01/23/24 History Gabapentin 600 mg PO DAILY 09/17/22 01/23/24 History Pantoprazole Sodium [Protonix] 40 mg PO BID 09/17/22 01/23/24 History Losartan [Cozaar] 50 mg PO DAILY #90 tab 09/18/22 01/23/24 Rx Apixaban [Eliquis] 5 mg PO DAILY 05/17/23 01/23/24 History Budesonide/Formoterol Fumarate 2 puff INHALATION RT-BID PRN 05/17/23 01/23/24 History [Symbicort 80-4.5 Mcg Inhaler] Butalb/APAP/Caff 50-325-40Mg 1 tab PO Q4H PRN 05/17/23 01/23/24 History [Fioricet 50-325-40] Clopidogrel Bisulfate [Clopidogrel] 75 mg PO DAILY 05/17/23 01/23/24 History Empagliflozin [Jardiance] 10 mg PO DAILY 05/17/23 01/23/24 History Ezetimibe [Zetia] 10 mg PO DAILY 05/17/23 01/23/24 History Fluticasone Propion/Salmeterol 1 puff INHALATION RT-BID PRN 05/17/23 01/23/24 History [Wixela 250-50 Inhub] metFORMIN HCL 1,000 mg PO BID 05/17/23 01/23/24 History rOPINIRole HCL [Requip] 0.5 mg PO BID 05/17/23 01/23/24 History traZODone HCL [Desyrel] 200 mg PO HS 05/17/23 01/23/24 History Albuterol Inhaler [Ventolin Hfa 2 puff INHALATION RT-Q4H PRN 01/23/24 01/23/24 History Inhaler] Atorvastatin [Lipitor] 40 mg PO HS 01/23/24 01/23/24 History Clotrimazole/Betameth Cream 1 applic TOPICAL BID PRN 01/23/24 01/23/24 History [Lotrisone] Famotidine 40 mg PO HS 01/23/24 01/23/24 History HYDROcodone/APAP 7.5-325MG [[place] 1 tab PO TID 01/23/24 01/23/24 History 7.5-325] Isosorbide Mononitrate ER [Imdur] 30 mg PO DAILY 01/23/24 01/23/24 History Metoprolol Tartrate [Lopressor] 12.5 mg PO DAILY 01/23/24 01/23/24 History Tamsulosin [Flomax] 0.4 mg PO HS 01/23/24 01/23/24 History Cefuroxime [Ceftin] 500 mg PO BID 7 Days #14 tab 01/26/24 Rx Allergies Allergy/AdvReac Type Severity Reaction Status Date / Time No Known Allergies Allergy Verified 01/23/24 09:11 Physical Exam Vitals: Vital Signs Temp Pulse Resp BP Pulse Ox 01/23/24 15:22 98.0 F 66 16 93/56 94 L 01/23/24 13:03 98.7 F 84 16 94/68 97 01/23/24 11:56 89 01/23/24 11:44 82 96 01/23/24 11:31 85 20 95/59 98 01/23/24 10:22 99.2 F 97 16 103/71 97 01/23/24 09:51 97 18 103/70 95 01/23/24 09:36 106 H 22 97/55 94 L 01/23/24 08:49 100.6 F H 118 H 20 102/71 94 L Intake and Output 01/23/24 01/23/24 01/23/24 06:59 14:59 22:59 Other: Voiding Method Toilet Urinal Weight 83.915 kg GENERAL DESCRIPTION: Elderly male lying in bed, no distress. No tachypnea or accessory muscle of respiration use. HEENT: Shows Pallor , no scleral icterus. Oral mucous membrane is dry. No pharyngeal erythema or thrush NECK: Trachea central, no thyromegaly. LUNGS: Unlabored breathing. Clear to auscultation, no wheeze or crackle. HEART: S1, S2, regular rate and rhythm. No loud murmur ABDOMEN: Soft, no tenderness , guarding or rigidity, no organomegaly EXTREMITIES: No edema of feet. SKIN: No rash, no masses palpable. NEUROLOGICAL: The patient is awake, alert, oriented x3, mood and affect normal. Results CBC & Chem 7: 01/25/24 06:17 01/25/24 06:17 Labs: Abnormal Lab Results - Last 24 Hours (Table) 01/23/24 01/23/24 01/23/24 Range/Units 09:17 09:17 09:17 WBC 21.7 H (3.8-10.6) k/uL Neutrophils # 20.4 H (1.3-7.7) k/uL Lymphocytes # 0.7 L (1.0-4.8) k/uL Chloride 108 H (98-107) mmol/L Glucose 156 H (74-99) mg/dL Calcium 8.3 L (8.4-10.2) mg/dL Total Protein 5.3 L (6.3-8.2) g/dL Albumin 2.9 L (3.5-5.0) g/dL Ur Specific [place] 1.037 H (1.001-1.035) Urine Protein 1+ H (Negative) Urine Glucose (UA) 4+ H (Negative) Urine Ketones 1+ H (Negative) Urine Blood Moderate H (Negative) Ur Leukocyte Esterase Moderate H (Negative) Urine RBC >182 H (0-5) /hpf Urine WBC 181 H (0-5) /hpf Urine Bacteria Rare H (None) /hpf Urine Mucus Rare H (None) /hpf Assessment and Plan (1) Sepsis secondary to UTI Status: Acute Code(s): A41.9 - SEPSIS, UNSPECIFIED ORGANISM; N39.0 - URINARY TRACT INFECTION, SITE NOT SPECIFIED SNOMED Code(s): 366844964 Plan: 1patient presented hospital with sepsis in this patient who did have a fever elevated white count source is likely UTI questionably prostatitis in this patient who recently did have a prostate biopsy and did have significant rigors and chills along with urinary symptoms patient did have very minimal respiratory symptoms clinic suspicious low for pneumonia 2-Discontinue vancomycin and Zosyn to decrease risk of nephrotoxicity 3-we will check a CRP procalcitonin and try to obtain a sputum for culture if possible 4-start the patient cefepime 2 g every 8 hours while waiting for the workup to be completed We will follow on clinical condition and cultures to further adjust medication if needed Thank you for this consultation we will follow the patient along with you Dictation was produced using [employer] dictation software. please excuse any grammatical, word or spelling errors. Time with Patient: Greater than 30
[2024-01-23] MEDS: metFORMIN 500 MG TAB PO SCH (21:48)
[2024-01-23] MEDS: PANTOPRAZOLE 40 MG TABLET PO SCH (21:48)
[2024-01-23] MEDS: traZODone HCL 100 MG TAB PO SCH (21:48)
[2024-01-23] MEDS: ATORVASTATIN 80 MG TAB PO SCH (21:49)
[2024-01-23] MEDS: FAMOTIDINE 20 MG TAB PO SCH (21:50)
[2024-01-23] MEDS: TAMSULOSIN 0.4 MG CAP.ER.24H PO SCH (21:50)
[2024-01-23] MEDS: GABAPENTIN 300 MG CAP PO SCH (21:51)
[2024-01-23] MEDS ORDERED: VANCOMYCIN 1,500 MG in SODIUM CHLORIDE 0.9% 500 ML 500 ML IVPB SCH (22:00)
[2024-01-24] MEDS: CEFEPIME 2 GM in SODIUM CHLORIDE 0.9% 100 ML IVPB SCH (02:58)
[2024-01-24 07:26] LABS: Glucose,Whole Blood 114 mg/dL (70-110)
[2024-01-24] MEDS ORDERED: SYMBICORT 80-4.5 MCG INHALER INHALATION SCH (08:00)
[2024-01-24] MEDS: IPRATROPIUM-ALBUTEROL 3 ML NEB INHALATION SCH (08:09)
[2024-01-24] MEDS: BUTALB/APAP/CAFF 50-325-40MG TAB PO PRN (10:35)
[2024-01-24] MEDS: GABAPENTIN 300 MG CAP PO SCH (10:36)
[2024-01-24] MEDS: clonazePAM 0.5 MG TAB PO SCH (10:36)
[2024-01-24] MEDS: METOPROLOL TARTRATE 25 MG TAB PO SCH (10:36)
[2024-01-24] MEDS: EZETIMIBE 10 MG TAB PO SCH (10:36)
[2024-01-24] MEDS: CLOPIDOGREL 75 MG TAB PO SCH (10:36)
[2024-01-24] MEDS: LOSARTAN 50 MG TAB PO SCH (10:37)
[2024-01-24] MEDS: HYDROCORTISONE 10 MG TAB PO SCH (10:37)
[2024-01-24] MEDS: APIXABAN 5 MG TAB PO SCH (10:37)
[2024-01-24] MEDS: ISOSORBIDE MONONITRATE ER 30 MG TAB.ER.24H PO SCH (10:37)
[2024-01-24] MEDS: DAPAGLIFLOZIN PROPANEDIOL 10 MG TABLET PO SCH (10:37)
[2024-01-24 11:43] LABS: Glucose,Whole Blood 104 mg/dL (70-110)
[2024-01-24 12:43] LABS: Basophils % (A) 0 %; Eosinophils % (A) 0 %; HCT 43.2 % (39.0-53.0); HGB 13.4 gm/dL (13.0-17.5); Hypochromasia Slight; Lymphocytes # (A) 0.6 k/uL (1.0-4.8); Lymphocytes % (A) 5 %; MCH 29.1 pg (25.0-35.0); MCV 93.8 fL (80.0-100.0); Mean Platelet Volume 7.9; Monocytes # (A) 0.4 k/uL (0-1.0); Monocytes % (A) 4 %; Neutrophils % (A) 90 %; Platelet Count 172 k/uL (150-450); RBC 4.61 m/uL (4.30-5.90); RDW 13.5 % (11.5-15.5); WBC 11.1 k/uL (3.8-10.6)
[2024-01-24 13:02] LABS: ALT 12 U/L (4-49); AST 16 U/L (17-59); African American GFR (CKD) >90 (>60 ml/min/1.73 sqM); Albumin 2.4 g/dL (3.5-5.0); Alkaline Phosphatase 77 U/L (38-126); Anion Gap 2 mmol/L; Blood Urea Nitrogen 20 mg/dL (9-20); Calcium 7.9 mg/dL (8.4-10.2); Carbon Dioxide 25 mmol/L (22-30); Chloride 108 mmol/L (98-107); Glucose 122 mg/dL (74-99); Non-African American GFR(CKD) >90 (>60 ml/min/1.73 sqM); Potassium 3.9 mmol/L (3.5-5.1); Sodium 135 mmol/L (137-145); Total Bilirubin 0.8 mg/dL (0.2-1.3); Total Protein 4.7 g/dL (6.3-8.2)
[2024-01-24 13:35] LABS: C Reactive Protein 16.8 mg/dL (<1.0)
--- NOTE | 2024-01-24 15:29 | P.PN ---
Subjective Progress Note Date: 01/24/24 Principal diagnosis: Reason for follow-up is fever likely urinary source Patient is a 73-year-old male past medical history significant for diabetes mellitus reflux hyperlipidemia pneumonia COPD CVA TIA patient recently did have a prostate biopsy done in the outpatient setting on 01/20/2024, presented to hospital with fever rigors and chills and did have some burning and blood in the urine. On today's evaluation that is 01/24/2024, patient did have resolution of his fever and is afebrile today, patient is breathing comfortably and is currently on room air, patient denies having any significant cough no chest pain shortness of breath, patient denies nausea vomiting or diarrhea and no abdominal pain. Patient white count is down to 11.1, creatinine 0.66 cultures currently pending Objective - Vital Signs Vital signs: Vital Signs Temp 97.8 F 01/24/24 12:00 Pulse 75 01/24/24 12:02 Resp 18 01/24/24 12:00 BP 91/58 01/24/24 12:00 Pulse Ox 91 L 01/24/24 12:00 FiO2 Intake & Output 01/23/24 01/24/24 01/24/24 18:59 06:59 18:59 Intake Total 358 Balance 358 Weight 83.915 kg Intake: Oral 358 Other: Voiding Method Toilet Toilet Toilet Urinal Urinal Urinal # Voids 1 - Exam GENERAL DESCRIPTION: An elderly male lying in bed in no distress RESPIRATORY SYSTEM: Unlabored breathing , decreased breath sounds at bases HEART: S1 S2 regular rate and rhythm , ABDOMEN: Soft , no tenderness EXTREMITIES: No edema feet - Labs CBC & Chem 7: 01/25/24 06:17 01/25/24 06:17 Labs: Abnormal Lab Results - Last 24 Hours (Table) 01/23/24 01/24/24 01/24/24 Range/Units 17:54 07:24 10:50 WBC 11.1 H (3.8-10.6) k/uL Neutrophils # 10.0 H (1.3-7.7) k/uL Lymphocytes # 0.6 L (1.0-4.8) k/uL POC Glucose (mg/dL) 188 H 114 H (70-110) mg/dL Assessment and Plan (1) Sepsis secondary to UTI Status: Acute Code(s): A41.9 - SEPSIS, UNSPECIFIED ORGANISM; N39.0 - URINARY TRACT INFECTION, SITE NOT SPECIFIED SNOMED Code(s): 248975496 Plan: 1patient presented hospital with sepsis in this patient who did have a fever elevated white count source is likely UTI questionably prostatitis in this patient who recently did have a prostate biopsy and did have significant rigors and chills along with urinary symptoms patient did have very minimal respiratory symptoms clinical suspicious low for pneumonia 2-patient to continue with cefepime 2 g every 8 hours while waiting for the cultures to be finalized Dictation was produced using [employer] dictation software. please excuse any grammatical, word or spelling errors. Time with Patient: Less than 30
--- NOTE | 2024-01-24 15:31 | P.PN ---
Subjective Progress Note Date: 01/24/24 Principal diagnosis: Acute sepsis, acute urinary tract infection, possible left lower lobe pneumonia This is a 73-year-old white male with history of multiple medical problems in cluding COPD, bullous emphysema, recurrent pneumothoraces in the past, history of pulmonary embolism, normally sees Dr. Rascon on outpatient basis. On 01/21/2024, patient underwent multiple prostate biopsies which came back negative for malignancy. Today the patient came into the ER with 1 day history of fever, cough, cough is productive with yellow phlegm, chills, and according to him he was probably a bit confused this morning. At that time he was having severe chills. Patient had no symptoms related to his prostate biopsy, no dysuria frequency or urgency. Did feel a bit nauseated earlier today. But no vomiting. At any rate workup in the ER included a CBC which showed leukocytosis with WBC count of 21.7. Normal electrolytes, normal basic metabolic profile, urine however showed evidence of pyuria and hematuria. With leukocyte Estrace positive screening for influenza A B RSV and COVID-19 were all negative chest x- ray showed left lower lobe infiltrate,/atelectasis hence the patient was admitted and this consult was initiated. Saw the patient in the ER, patient did not seem to be in distress, he is on 2 L nasal cannula with O2 sats of 95%, hemodynamically stable, blood pressure 96/69 with a mean of 78., Heart rate of 72. He had a temp of 98.7 Was reevaluated today on 01/24/2024, patient is doing much better, he has no active pulmonary symptoms no cough no wheezing no shortness of breath, denies any dysuria frequency urgency. Patient is on room air, O2 sat is 91% his temp is 97 8 pulse 75 blood pressure 91/58. Mean of 69 WBC count is down to 11.1 hemoglobin is 13.4 basic metabolic profile is normal his WBC count on admission was 21.7. Cultures so far are all nondiagnostic. His urinalysis is suspicious for urinary tract infection. Chest x-ray questioned a left lower lobe infiltrate however on physical examination he sounded quite clear specially over the left lower lobe. Objective - Vital Signs Vital signs: Vital Signs Temp 97.8 F 01/24/24 12:00 Pulse 75 01/24/24 12:02 Resp 18 01/24/24 12:00 BP 91/58 01/24/24 12:00 Pulse Ox 91 L 01/24/24 12:00 FiO2 Intake & Output 01/23/24 01/24/24 01/24/24 18:59 06:59 18:59 Intake Total 716 Balance 716 Weight 83.915 kg Intake: Oral 716 Other: Voiding Method Toilet Toilet Toilet Urinal Urinal Urinal # Voids 1 - Exam Physical Exam: Revealed 73-year-old white male in no distress.on 2 L nasal cannula Head: Atraumatic, normocephalic. HEENT:[Neck is supple.] [No neck masses.] [No thyromegaly.] [No JVD.] Chest: [diminished breath sound bilaterally no rhonchi or wheezes Cardiac Exam: [Normal S1 and S2, no S3 gallop, no murmur.] Abdomen: [Soft, nontender, no megaly, no rebound, no guarding, normal bowel sounds.] Extremities: [No clubbing, no edema, no cyanosis.] Neurological Exam: [No focal neurologic deficit.]alert oriented 3. Psychiatric: Normal mood, affect and angela mental status examination. skin: No rashes - Labs CBC & Chem 7: 01/24/24 10:50 01/24/24 10:50 Labs: Abnormal Lab Results - Last 24 Hours (Table) 01/23/24 01/24/24 01/24/24 Range/Units 17:54 07:24 10:50 WBC 11.1 H (3.8-10.6) k/uL Neutrophils # 10.0 H (1.3-7.7) k/uL Lymphocytes # 0.6 L (1.0-4.8) k/uL Sodium (137-145) mmol/L Chloride (98-107) mmol/L Glucose (74-99) mg/dL POC Glucose (mg/dL) 188 H 114 H (70-110) mg/dL Calcium (8.4-10.2) mg/dL AST (17-59) U/L C-Reactive Protein (<1.0) mg/dL Total Protein (6.3-8.2) g/dL Albumin (3.5-5.0) g/dL 03/29/24 Range/Units 10:50 WBC (3.8-10.6) k/uL Neutrophils # (1.3-7.7) k/uL Lymphocytes # (1.0-4.8) k/uL Sodium 135 L (137-145) mmol/L Chloride 108 H (98-107) mmol/L Glucose 122 H (74-99) mg/dL POC Glucose (mg/dL) (70-110) mg/dL Calcium 7.9 L (8.4-10.2) mg/dL AST 16 L (17-59) U/L C-Reactive Protein 16.8 H (<1.0) mg/dL Total Protein 4.7 L (6.3-8.2) g/dL Albumin 2.4 L (3.5-5.0) g/dL Assessment and Plan Assessment: Impression: Acute sepsis, sources could be urinary or pulmonary in nature I believe is more urinary in nature. Acute urinary tract infection Possible left lower lobe pneumonia Underlying COPD presently inactive Leukocytosis secondary to above Remote history of pulmonary embolism History of CVA/TIA History of recent prostate biopsies Degenerative joint disease History of bullous emphysema and previous volume reduction History of pneumothoraces Type 2 diabetes without complications Recommendations: Continue antibiotics/cefepime Continue bronchodilators Check blood cultures urine cultures and sputum cultures Will continue to follow Time with Patient: Less than 30
--- NOTE | 2024-01-24 16:30 | P.GSCN ---
History of Present Illness Consult date: 01/24/24 Reason for Consult: UTI, fever Requesting physician: Kevin Dennison History of present illness: The patient is a 73-year-old white male with a long history of BPH. He was treated for an Enterococcus UTI in May 2021. In September 2021, he was hospitalized with a fever presumed to be due to prostatitis. Blood cultures were negative at that time. Urinalysis was unremarkable, and urine cultures were not performed at that time. He had a pulmonary embolus to in May 2019, for which he takes anticoagulants. He underwent Holmium laser enucleation of the prostate in March 2022 but continues to experience obstructive voiding symptoms. Cystoscopy has shown an open posterior urethral channel, but he still has mild lateral lobe enlargement. He was hospitalized in April 2023. Urine and blood cultures both showed E. coli, and he was treated with a 6-week course of ciprofloxacin. Because his PSA level remains elevated, he underwent a prostate ultrasound with biopsies on January 21, 2024. His prostate volume was 40.3 cc, and biopsies showed no evidence of malignancy. On January 21, he began to experience fever, chills, and a cough. He presented to the ER yesterday and was noted to have leukocytosis. Urinalysis is suggestive of a UTI. He was admitted and is currently receiving cefepime. Review of Systems - Constitutional Reports chills, Reports fever - Genitourinary Denies dysuria, Denies hematuria Past Medical History Past Medical History: COPD, CVA/TIA, Diabetes Mellitus, GERD/Reflux, Hearing Disorder / Deafness, Hyperlipidemia, Myocardial Infarction (CO), Musculoskeletal Disorder, Osteoarthritis (OA), Pneumonia, Prostate Disorder, Pulmonary Embolus (PE), Respiratory Disorder Additional Past Medical History / Comment(s): PE/RLL pneumonia/acute hypoxic failure. Portal bollous emphysema. low back pain, bilat sciatica; RLS; migraines, TIA , BPH, hearing aids, , diverticulosis. onset diabetes 08/11/19, multiple pneumothorax, O2 @2-4L [place] prn. Adrenal insufficiency Last Myocardial Infarction Date:: 12/30/2019 History of Any Multi-Drug Resistant Organisms: None Reported Past Surgical History: Heart Catheterization With Stent, Hernia Repair, Orthopedic Surgery, Prostate Surgery, Tonsillectomy Additional Past Surgical History / Comment(s): Septoplasty/ESSS, EGD, colonoscopy with benign polyp, R inguinal hernia, umbilical hernia, pain clinic procedures, atilio fundloplication. upper bilat lung lobes removed 05/2021, prostate surgery 3 weeks ago. Prostate biopsy 01/20/24. Past Anesthesia/Blood Transfusion Reactions: No Reported Reaction Additional Past Anesthesia/Blood Transfusion Reaction / Comm: no known family hx Date of Last Stent Placement:: \2019 Past Psychological History: No Psychological Hx Reported, PTSD Smoking Status: Former smoker Past Alcohol Use History: None Reported Past Drug Use History: None Reported - Past Family History Father History Unknown: Yes Family Medical History: No Reported History, Unable to Obtain Additional Family Medical History / Comment(s): Pt was adopted. Mother History Unknown: Yes Additional Family Medical History / Comment(s): Pt was adopted. Daughter(s) Additional Family Medical History / Comment(s): Children do not have any major medical problems. No history of blood clots. Medications and Allergies Home Medications Medication Instructions Recorded Confirmed Type Gabapentin 1,200 mg PO HS 04/09/16 01/23/24 History ALPRAZolam [Xanax] 1 mg PO HS 03/25/20 01/23/24 History Fluticasone/Umeclidin/Vilanter 1 puff INHALATION RT-DAILY 10/25/21 01/23/24 History [Trelegy Ellipta 100-62.5-25] Hydrocortisone [Cortef] 30 mg PO DAILY 04/19/22 01/23/24 History Gabapentin 600 mg PO DAILY 09/17/22 01/23/24 History Pantoprazole Sodium [Protonix] 40 mg PO BID 09/17/22 01/23/24 History Losartan [Cozaar] 50 mg PO DAILY #90 tab 09/18/22 01/23/24 Rx Apixaban [Eliquis] 5 mg PO DAILY 05/17/23 01/23/24 History Budesonide/Formoterol Fumarate 2 puff INHALATION RT-BID PRN 05/17/23 01/23/24 History [Symbicort 80-4.5 Mcg Inhaler] Butalb/APAP/Caff 50-325-40Mg 1 tab PO Q4H PRN 05/17/23 01/23/24 History [Fioricet 50-325-40] Clopidogrel Bisulfate [Clopidogrel] 75 mg PO DAILY 05/17/23 01/23/24 History Empagliflozin [Jardiance] 10 mg PO DAILY 05/17/23 01/23/24 History Ezetimibe [Zetia] 10 mg PO DAILY 05/17/23 01/23/24 History Fluticasone Propion/Salmeterol 1 puff INHALATION RT-BID PRN 05/17/23 01/23/24 History [[place]ela 250-50 Inhub] metFORMIN HCL 1,000 mg PO BID 05/17/23 01/23/24 History rOPINIRole HCL [Requip] 0.5 mg PO BID 05/17/23 01/23/24 History traZODone HCL [Desyrel] 200 mg PO HS 05/17/23 01/23/24 History Albuterol Inhaler [Ventolin Hfa 2 puff INHALATION RT-Q4H PRN 01/23/24 01/23/24 History Inhaler] Atorvastatin [Lipitor] 40 mg PO HS 01/23/24 01/23/24 History Clotrimazole/Betameth Cream 1 applic TOPICAL BID PRN 01/23/24 01/23/24 History [Lotrisone] Famotidine 40 mg PO HS 01/23/24 01/23/24 History HYDROcodone/APAP 7.5-325MG [[place] 1 tab PO TID 01/23/24 01/23/24 History 7.5-325] Isosorbide Mononitrate ER [Imdur] 30 mg PO DAILY 01/23/24 01/23/24 History Metoprolol Tartrate [Lopressor] 12.5 mg PO DAILY 01/23/24 01/23/24 History Tamsulosin [Flomax] 0.4 mg PO HS 01/23/24 01/23/24 History Allergies Allergy/AdvReac Type Severity Reaction Status Date / Time No Known Allergies Allergy Verified 01/23/24 09:11 Surgical - Exam Vital Signs Temp Pulse Resp BP Pulse Ox 100.6 F H 118 H 20 102/71 94 L 01/23/24 08:49 01/23/24 08:49 01/23/24 08:49 01/23/24 08:49 01/23/24 08:49 - General well developed, well nourished, no distress - Respiratory normal respiratory effort - Abdomen Abdomen: soft, non tender, no guarding, no rigid, no rebound - Psychiatric oriented to time, oriented to person, oriented to place, speech is normal, memory intact Results - Labs 01/24/24 10:50 01/24/24 10:50 Abnormal Lab Results - Last 24 Hours (Table) 01/23/24 01/23/24 01/23/24 Range/Units 09:17 09:17 09:17 WBC 21.7 H (3.8-10.6) k/uL Neutrophils # 20.4 H (1.3-7.7) k/uL Lymphocytes # 0.7 L (1.0-4.8) k/uL Chloride 108 H (98-107) mmol/L Glucose 156 H (74-99) mg/dL POC Glucose (mg/dL) (70-110) mg/dL Calcium 8.3 L (8.4-10.2) mg/dL Total Protein 5.3 L (6.3-8.2) g/dL Albumin 2.9 L (3.5-5.0) g/dL Ur Specific [place] 1.037 H (1.001-1.035) Urine Protein 1+ H (Negative) Urine Glucose (UA) 4+ H (Negative) Urine Ketones 1+ H (Negative) Urine Blood Moderate H (Negative) Ur Leukocyte Esterase Moderate H (Negative) Urine RBC >182 H (0-5) /hpf Urine WBC 181 H (0-5) /hpf Urine Bacteria Rare H (None) /hpf Urine Mucus Rare H (None) /hpf 01/23/24 Range/Units 17:54 WBC (3.8-10.6) k/uL Neutrophils # (1.3-7.7) k/uL Lymphocytes # (1.0-4.8) k/uL Chloride (98-107) mmol/L Glucose (74-99) mg/dL POC Glucose (mg/dL) 188 H (70-110) mg/dL Calcium (8.4-10.2) mg/dL Total Protein (6.3-8.2) g/dL Albumin (3.5-5.0) g/dL Ur Specific [place] (1.001-1.035) Urine Protein (Negative) Urine Glucose (UA) (Negative) Urine Ketones (Negative) Urine Blood (Negative) Ur Leukocyte Esterase (Negative) Urine RBC (0-5) /hpf Urine WBC (0-5) /hpf Urine Bacteria (None) /hpf Urine Mucus (None) /hpf Diabetes panel 01/23/24 Range/Units 09:17 Sodium 138 (137-145) mmol/L Potassium 3.5 (3.5-5.1) mmol/L Chloride 108 H (98-107) mmol/L Carbon Dioxide 24 (22-30) mmol/L BUN 19 (9-20) mg/dL Creatinine 0.90 (0.66-1.25) mg/dL Glucose 156 H (74-99) mg/dL Calcium 8.3 L (8.4-10.2) mg/dL AST 17 (17-59) U/L ALT 15 (4-49) U/L Alkaline Phosphatase 92 (38-126) U/L Total Protein 5.3 L (6.3-8.2) g/dL Albumin 2.9 L (3.5-5.0) g/dL Calcium panel 01/23/24 Range/Units 09:17 Calcium 8.3 L (8.4-10.2) mg/dL Albumin 2.9 L (3.5-5.0) g/dL Pituitary panel 01/23/24 Range/Units 09:17 Sodium 138 (137-145) mmol/L Potassium 3.5 (3.5-5.1) mmol/L Chloride 108 H (98-107) mmol/L Carbon Dioxide 24 (22-30) mmol/L BUN 19 (9-20) mg/dL Creatinine 0.90 (0.66-1.25) mg/dL Glucose 156 H (74-99) mg/dL Calcium 8.3 L (8.4-10.2) mg/dL Adrenal panel 01/23/24 Range/Units 09:17 Sodium 138 (137-145) mmol/L Potassium 3.5 (3.5-5.1) mmol/L Chloride 108 H (98-107) mmol/L Carbon Dioxide 24 (22-30) mmol/L BUN 19 (9-20) mg/dL Creatinine 0.90 (0.66-1.25) mg/dL Glucose 156 H (74-99) mg/dL Calcium 8.3 L (8.4-10.2) mg/dL Total Bilirubin 1.3 (0.2-1.3) mg/dL AST 17 (17-59) U/L ALT 15 (4-49) U/L Alkaline Phosphatase 92 (38-126) U/L Total Protein 5.3 L (6.3-8.2) g/dL Albumin 2.9 L (3.5-5.0) g/dL Assessment and Plan (1) Sepsis secondary to UTI Current Visit: No Status: Acute Code(s): A41.9 - SEPSIS, UNSPECIFIED ORGANISM; N39.0 - URINARY TRACT INFECTION, SITE NOT SPECIFIED SNOMED Code(s): 287943464 Plan: The patient likely has sepsis secondary to recent transrectal ultrasound-guided prostate biopsies. Urine and blood cultures have been sent. He is hemodynamically stable. Would continue cefepime, pending culture results.
--- NOTE | 2024-01-25 07:09 | P.PN ---
Subjective Progress Note Date: 01/24/24 HISTORY OF PRESENT ILLNESS: 73-year-old male one of our office patient who is known to have history of COPD, recurrent pneumothorax, history of pulmonary embolism, history of hypertension, hyperlipidemia, previous history of myocardial infarction with atherosclerotic heart disease who also has recurrent pneumonia and respiratory failure in the past who apparently had seen urology with elevated PSA schedule and had prostate biopsy 48 hours earlier. Patient presented to the emergency department at [facility] today because of fever chills slight sputum production with slight increase lower abdominal discomfort with slight change in urine his symptoms become quite with severe combined between urinary tract and upper respiratory. Was seen and evaluated Laboratory value showed white blood cell of 21,700 with left shift, electrolyte with normal creatinine blood sugar was 156, urine was very positive with 1+ ketones, 1+ protein, 4+ sugar, moderate leukocyte with WBC and RBC. His RSV COVID and influenza were all negative. Chest x-ray shows mild left lower lobe infiltrate with sign of COPD. Culture was done and starting patient off Zosyn and vancomycin initially, updraft treatment along with Solu-Medrol consult pulmonary and infectious disease patient be admitted to the hospital for combination of left lower lobe pneumonia along with sepsis with urinary tract infection. 01/24/2024: Urology consultation was done today and as expected they believe it is more sepsis and UTI after recent transrectal ultrasound-guided prostate biopsy. Urine culture starkly positive for gram negative bacilli most likely will be E. coli. The meanwhile he has been cover with antibiotics. Also from pulmonary standpoint agree this is most likely urinary tract but the left lower lobe has slight consolidation on x-ray specially with patient history of COPD and bullous emphysema make this conclusion little bit difficult. Continue cefepime continue bronchodilator patient will be on antibiotic coverage for the UTI so we will cover the lungs as well as a precaution. REVIEW OF SYSTEMS: CONSTITUTIONAL: Well-developed no acute respiratory distress. EYES: No icterus sclerae, no conjunctivitis. EARS, NOSE, MOUTH, THROAT, and FACE: No sore throat, lymphadenopathy, carotid bruits or deformity. RESPIRATORY: Slight shortness of breath mild cough and wheezes. CARDIOVASCULAR: Positive PND orthopnea palpitation. GASTROINTESTINAL: No Abd pain, Nausea or vomiting, no Diarrhea or constipation, No GI Bleed, no distention or masses. GENITOURINARY: Post prostate biopsy with slight hematuria and slight discomfort. INTEGUMENT/BREAST: Negative for any muscular injury with mild osteoarthritis.. HEMATOLOGIC/LYMPHATIC: Negative for bleed or purpura. MUSCULOSKELTAL: Generalized muscle and joint pain. NEURLOGICAL: No LOC, Sz or syncope, blurred vision dizziness or abnormality.. BEHAVIORAL/PSYCH: Negative. ENDOCRINE: Negative. PHYSICAL EXAMINATION: General Appearance: Alert, cooperative, no distress, appears stated age. Neck HEENT: Supple, no lymphadenopathy, no thyroid enlargement, no carotid bruits. Lungs: Decreased breath sound in the bases only specially left side with mild rhonchi with minimal expiratory wheezes slight crackles and very limited area on the lower part of the lung. Chest Wall: Decreased expansion with deep inspiration no tenderness and no deformity was found on exam, no costochondral pain or discomfort. Heart: Regular rate and rhythm, S1, S2 normal mild tachycardia with systolic murmur. Abdomen: Slight lower abdominal region discomfort with no rebound or rigidity. Extremities: Extremities normal, atraumatic, no cyanosis or edema. Pulses: 2+ and symmetric. Skin: Skin color, texture, tugor normal, no rashes or lesions. Neurologic: Alert oriented x3 cranial nerves II through XII intact, no motor deficit, no abnormal balance or gait. ASSESSMENT AND PLAN: _Sepsis: Most likely source of urinary tract infection versus left lower lobe pneumonia, patient was getting vancomycin and Zosyn and was switched to cefepime after seeing pulmonary. Culture is more positive for urinary tract infection with gram-negative bacilli. _Possible left lower lobe pneumonia: With elevated white blood cell and finding on x-ray patient was switched to cefepime will continue Solu-Medrol along with updraft treatment. Patient has bullous emphysema make the conclusion with a consultation difficult to assume was not an infection so will be covered with antibiotic anyway. _UTI with sepsis: Most likely underlying is a biopsy in the rotation from but he had 2 days ago, UA is very positive patient will benefit from better coverage for urinary tract infection or sepsis with UTI. Will continue Flomax as well. _Recent prostate biopsy still waiting for the result but was probably an underlying problem with the leukocytosis and UTI at this point. _History of CVA: No residual at this point still on anticoagulation with Plavix along with better control of blood sugar, cholesterol and blood pressure. _COPD with mild exacerbation: Solu-Medrol along with Symbicort and albuterol/ipratropium will be done. _ Atherosclerotic heart disease: No chest pain or angina continue metoprolol, isosorbide mononitrate, losartan, Zetia along with Jardiance. Still on Plavix as well. _Anticoagulation: With previous history of pulmonary embolism, still on Eliquis 5 mg twice a day. _Hyperlipidemia: Continue combination of atorvastatin 40 mg a day along with Zetia 10 mg a day. _Severe neuropathy: Continue gabapentin total of 600 mg in the morning and 1200 mg at night. _Type 2 diabetes: He is to remain on metformin 1000 mg twice a day, Jardiance 10 mg daily will continue Accu-Chek with sliding scale coverage. _Hypertension: Remain on metoprolol titrate 12.5 mg daily along with losartan 50 mg a day. _Severe GERD/GI prophylaxis: Remain on pantoprazole 40 mg a day Prognosis: Fair. Discussion: Patient was seen urology agree this is sepsis with UTI, culture is positive for gram-negative bacilli patient was switched to cefepime which will cover both gram-negative pneumonia and urinary tract infection patient continues see pulmonary. For at least another 24 hours of IV antibiotic will be quite helpful white blood cells down to 11,000 kidney function still holding well we can maintain patient for another day of IV antibiotic till the culture is finalized may be infectious disease can help to switch antibiotic to oral at that point. Objective - Vital Signs Vital signs: Vital Signs Temp 97.8 F 01/23/24 20:00 Pulse 61 01/23/24 20:00 Resp 16 01/23/24 20:00 BP 123/67 01/23/24 20:00 Pulse Ox 94 L 01/23/24 20:00 FiO2 Intake & Output 01/23/24 01/23/24 01/24/24 06:59 18:59 06:59 Weight 83.915 kg Other: Voiding Method Toilet Urinal # Voids 1 - Labs CBC & Chem 7: 01/24/24 10:50 01/24/24 10:50 Labs: Abnormal Lab Results - Last 24 Hours (Table) 01/23/24 01/23/24 01/23/24 Range/Units 09:17 09:17 09:17 WBC 21.7 H (3.8-10.6) k/uL Neutrophils # 20.4 H (1.3-7.7) k/uL Lymphocytes # 0.7 L (1.0-4.8) k/uL Chloride 108 H (98-107) mmol/L Glucose 156 H (74-99) mg/dL POC Glucose (mg/dL) (70-110) mg/dL Calcium 8.3 L (8.4-10.2) mg/dL Total Protein 5.3 L (6.3-8.2) g/dL Albumin 2.9 L (3.5-5.0) g/dL Ur Specific [place] 1.037 H (1.001-1.035) Urine Protein 1+ H (Negative) Urine Glucose (UA) 4+ H (Negative) Urine Ketones 1+ H (Negative) Urine Blood Moderate H (Negative) Ur Leukocyte Esterase Moderate H (Negative) Urine RBC >182 H (0-5) /hpf Urine WBC 181 H (0-5) /hpf Urine Bacteria Rare H (None) /hpf Urine Mucus Rare H (None) /hpf 01/23/24 Range/Units 17:54 WBC (3.8-10.6) k/uL Neutrophils # (1.3-7.7) k/uL Lymphocytes # (1.0-4.8) k/uL Chloride (98-107) mmol/L Glucose (74-99) mg/dL POC Glucose (mg/dL) 188 H (70-110) mg/dL Calcium (8.4-10.2) mg/dL Total Protein (6.3-8.2) g/dL Albumin (3.5-5.0) g/dL Ur Specific [place] (1.001-1.035) Urine Protein (Negative) Urine Glucose (UA) (Negative) Urine Ketones (Negative) Urine Blood (Negative) Ur Leukocyte Esterase (Negative) Urine RBC (0-5) /hpf Urine WBC (0-5) /hpf Urine Bacteria (None) /hpf Urine Mucus (None) /hpf
[2024-01-25 09:23] LABS: HCT 37.6 % (39.6-50.0); HGB 12.1 g/dL (13.0-17.0); MCH 28.5 pg (27.0-32.0); MCHC 32.2 g/dL (32.0-37.0); MCV 88.7 FL (80.0-97.0); Mean Platelet Volume 9.4 FL (9.5-12.2); NRBC Per 100 WBC 0 X 10*3/uL (0.00-0.01); Platelet Count 173 X 10*3/uL (140-440); RBC 4.24 X 10*6/uL (4.40-5.60); RDW 14.3 % (11.5-14.5); WBC 9.53 X 10*3/uL (4.50-10.00)
[2024-01-25 09:43] LABS: ALT 11 U/L (10-49); AST 8 U/L (14-35); Albumin 2.7 g/dL (3.8-4.9); Albumin/Globulin Ratio 1.59 Ratio (1.60-3.17); Alkaline Phosphatase 64 U/L (41-126); BUN/Creat Ratio 27.43 Ratio (12.00-20.00); Blood Urea Nitrogen 19.2 mg/dL (9.0-27.0); Calcium 8.2 mg/dL (8.7-10.3); Carbon Dioxide 23.1 mmol/L (21.6-31.8); Chloride 111 mmol/L (96-109); Globulin 1.7 g/dL (1.6-3.3); Glucose 132 mg/dL (70-110); Potassium 4.1 mmol/L (3.5-5.5); Sodium 141 mmol/L (135-145); Total Bilirubin 0.3 mg/dL (0.3-1.2); Total Protein 4.4 g/dL (6.2-8.2)
--- NOTE | 2024-01-25 11:22 | P.PN ---
Subjective Progress Note Date: 01/25/24 HISTORY OF PRESENT ILLNESS: 73-year-old male one of our office patient who is known to have history of COPD, recurrent pneumothorax, history of pulmonary embolism, history of hypertension, hyperlipidemia, previous history of myocardial infarction with atherosclerotic heart disease who also has recurrent pneumonia and respiratory failure in the past who apparently had seen urology with elevated PSA schedule and had prostate biopsy 48 hours earlier. Patient presented to the emergency department at [facility] today because of fever chills slight sputum production with slight increase lower abdominal discomfort with slight change in urine his symptoms become quite with severe combined between urinary tract and upper respiratory. Was seen and evaluated Laboratory value showed white blood cell of 21,700 with left shift, electrolyte with normal creatinine blood sugar was 156, urine was very positive with 1+ ketones, 1+ protein, 4+ sugar, moderate leukocyte with WBC and RBC. His RSV COVID and influenza were all negative. Chest x-ray shows mild left lower lobe infiltrate with sign of COPD. Culture was done and starting patient off Zosyn and vancomycin initially, updraft treatment along with Solu-Medrol consult pulmonary and infectious disease patient be admitted to the hospital for combination of left lower lobe pneumonia along with sepsis with urinary tract infection. 01/24/2024: Urology consultation was done today and as expected they believe it is more sepsis and UTI after recent transrectal ultrasound-guided prostate biopsy. Urine culture starkly positive for gram negative bacilli most likely will be E. coli. The meanwhile he has been cover with antibiotics. Also from pulmonary standpoint agree this is most likely urinary tract but the left lower lobe has slight consolidation on x-ray specially with patient history of COPD and bullous emphysema make this conclusion little bit difficult. Continue cefepime continue bronchodilator patient will be on antibiotic coverage for the UTI so we will cover the lungs as well as a precaution. 01/25/2024: Urine culture is positive for gram-negative bacilli most likely E. coli, final culture is not done yet, patient still on cefepime at this point. He is feeling much better we will continue current management/sepsis/UTI. As for his lung infection and a possible pneumonia he is a lot better clinically we will continue the management with updraft [id number] along with supportive oxygen, The patient was seen urology today hopefully with final culture done by tomorrow should be able to let him go home tomorrow with oral antibiotics. REVIEW OF SYSTEMS: CONSTITUTIONAL: Well-developed no acute respiratory distress. EYES: No icterus sclerae, no conjunctivitis. EARS, NOSE, MOUTH, THROAT, and FACE: No sore throat, lymphadenopathy, carotid bruits or deformity. RESPIRATORY: Slight shortness of breath mild cough and wheezes. CARDIOVASCULAR: Positive PND orthopnea palpitation. GASTROINTESTINAL: No Abd pain, Nausea or vomiting, no Diarrhea or constipation, No GI Bleed, no distention or masses. GENITOURINARY: Post prostate biopsy with slight hematuria and slight discomfort. INTEGUMENT/BREAST: Negative for any muscular injury with mild osteoarthritis.. HEMATOLOGIC/LYMPHATIC: Negative for bleed or purpura. MUSCULOSKELTAL: Generalized muscle and joint pain. NEURLOGICAL: No LOC, Sz or syncope, blurred vision dizziness or abnormality.. BEHAVIORAL/PSYCH: Negative. ENDOCRINE: Negative. PHYSICAL EXAMINATION: General Appearance: Alert, cooperative, no distress, appears stated age. Neck HEENT: Supple, no lymphadenopathy, no thyroid enlargement, no carotid bruits. Lungs: Decreased breath sound in the bases only specially left side with mild rhonchi with minimal expiratory wheezes slight crackles and very limited area on the lower part of the lung. Chest Wall: Decreased expansion with deep inspiration no tenderness and no deformity was found on exam, no costochondral pain or discomfort. Heart: Regular rate and rhythm, S1, S2 normal mild tachycardia with systolic murmur. Abdomen: Slight lower abdominal region discomfort with no rebound or rigidity. Extremities: Extremities normal, atraumatic, no cyanosis or edema. Pulses: 2+ and symmetric. Skin: Skin color, texture, tugor normal, no rashes or lesions. Neurologic: Alert oriented x3 cranial nerves II through XII intact, no motor deficit, no abnormal balance or gait. ASSESSMENT AND PLAN: _Sepsis: Most likely source of urinary tract infection versus left lower lobe pneumonia, patient was getting vancomycin and Zosyn and was switched to cefepime after seeing pulmonary. Culture is more positive for urinary tract infection with gram-negative bacilli. Most likely E. coli we will switch antibiotics as advanced tomorrow to oral have him go home on it. _Possible left lower lobe pneumonia: With elevated white blood cell and finding on x-ray patient was switched to cefepime will continue Solu-Medrol along with updraft treatment. Patient has bullous emphysema make the conclusion with a consultation difficult to assume was not an infection so will be covered with antibiotic anyway. _UTI with sepsis: Most likely underlying is a biopsy in the rotation from but he had 2 days ago, UA is very positive patient will benefit from better coverage for urinary tract infection or sepsis with UTI. Will continue Flomax as well. Will be on antibiotic for at least another week. _Recent prostate biopsy still waiting for the result but was probably an underlying problem with the leukocytosis and UTI at this point. _History of CVA: No residual at this point still on anticoagulation with Plavix along with better control of blood sugar, cholesterol and blood pressure. _COPD with mild exacerbation: Solu-Medrol along with Symbicort and albuterol/ipratropium will be done. _ Atherosclerotic heart disease: No chest pain or angina continue metoprolol, isosorbide mononitrate, losartan, Zetia along with Jardiance. Still on Plavix as well. _Anticoagulation: With previous history of pulmonary embolism, still on Eliquis 5 mg twice a day. _Hyperlipidemia: Continue combination of atorvastatin 40 mg a day along with Zetia 10 mg a day. _Severe neuropathy: Continue gabapentin total of 600 mg in the morning and 1200 mg at night. _Type 2 diabetes: He is to remain on metformin 1000 mg twice a day, Jardiance 10 mg daily will continue Accu-Chek with sliding scale coverage. _Hypertension: Remain on metoprolol titrate 12.5 mg daily along with losartan 50 mg a day. _Severe GERD/GI prophylaxis: Remain on pantoprazole 40 mg a day Prognosis: Fair. Discussion: White blood cell is down to 9000, his final culture is not complete yet, will continue cefepime till the final culture is back to send him home on oral antibiotic as admitted tomorrow. Objective - Vital Signs Vital signs: Vital Signs Temp 98 F 01/25/24 02:00 Pulse 79 01/25/24 02:00 Resp 16 01/25/24 02:00 BP 127/75 01/25/24 02:00 Pulse Ox 94 L 01/25/24 02:00 FiO2 Intake & Output 01/24/24 01/25/24 01/25/24 18:59 06:59 18:59 Intake Total 716 Balance 716 Intake: Oral 716 Other: Voiding Method Toilet Toilet Urinal Urinal # Voids 1 3 - Labs CBC & Chem 7: 01/25/24 06:17 01/25/24 06:17 Labs: Abnormal Lab Results - Last 24 Hours (Table) 01/24/24 01/24/24 01/24/24 Range/Units 07:24 10:50 10:50 WBC 11.1 H (3.8-10.6) k/uL Neutrophils # 10.0 H (1.3-7.7) k/uL Lymphocytes # 0.6 L (1.0-4.8) k/uL Sodium (137-145) mmol/L Chloride (98-107) mmol/L Glucose (74-99) mg/dL POC Glucose (mg/dL) 114 H (70-110) mg/dL Calcium (8.4-10.2) mg/dL AST (17-59) U/L C-Reactive Protein (<1.0) mg/dL Total Protein (6.3-8.2) g/dL Albumin (3.5-5.0) g/dL Procalcitonin 11.00 H (0.02-0.09) ng/mL 01/24/24 Range/Units 10:50 WBC (3.8-10.6) k/uL Neutrophils # (1.3-7.7) k/uL Lymphocytes # (1.0-4.8) k/uL Sodium 135 L (137-145) mmol/L Chloride 108 H (98-107) mmol/L Glucose 122 H (74-99) mg/dL POC Glucose (mg/dL) (70-110) mg/dL Calcium 7.9 L (8.4-10.2) mg/dL AST 16 L (17-59) U/L C-Reactive Protein 16.8 H (<1.0) mg/dL Total Protein 4.7 L (6.3-8.2) g/dL Albumin 2.4 L (3.5-5.0) g/dL Procalcitonin (0.02-0.09) ng/mL Microbiology - Last 24 Hours (Table) 01/23/24 14:55 Urine Culture - Preliminary Urine,Clean Catch Gram Neg Bacilli 01/23/24 09:25 Blood Culture - Preliminary Blood 01/23/24 09:40 Blood Culture - Preliminary Blood
--- NOTE | 2024-01-25 11:56 | P.PN ---
Subjective Progress Note Date: 01/25/24 Principal diagnosis: Febrile UTI The patient is a 73-year-old white male who underwent transrectal ultrasound- guided biopsies of the prostate January 20, 2024. He was admitted with fever and chills, and appears to have a UTI. Urine culture shows gram-negative bacilli. He is currently receiving cefepime. He states that he is feeling better, and that his dysuria has almost resolved. He denies hematuria. Objective - Vital Signs Vital signs: Vital Signs Temp 98.2 F 01/25/24 07:44 Pulse 67 01/25/24 11:30 Resp 18 01/25/24 07:44 BP 148/77 01/25/24 07:44 Pulse Ox 93 L 01/25/24 07:44 FiO2 Intake & Output 01/24/24 01/25/24 01/25/24 18:59 06:59 18:59 Intake Total 716 Balance 716 Intake: Oral 716 Other: Voiding Method Toilet Toilet Toilet Urinal Urinal Urinal # Voids 1 3 - Constitutional General appearance: Present: average body habitus, no acute distress - Psychiatric Psychiatric: Present: A&O x's 3 - Labs CBC & Chem 7: 01/25/24 06:17 01/25/24 06:17 Labs: Abnormal Lab Results - Last 24 Hours (Table) 01/24/24 01/24/24 01/24/24 Range/Units 10:50 10:50 10:50 WBC 11.1 H (3.8-10.6) k/uL RBC (4.40-5.60) X 10*6/uL Hgb (13.0-17.0) g/dL Hct (39.6-50.0) % MPV (9.5-12.2) FL Neutrophils # 10.0 H (1.3-7.7) k/uL Lymphocytes # 0.6 L (1.0-4.8) k/uL Sodium 135 L (137-145) mmol/L Chloride 108 H (98-107) mmol/L BUN/Creatinine Ratio (12.00-20.00) Ratio Glucose 122 H (74-99) mg/dL Calcium 7.9 L (8.4-10.2) mg/dL AST 16 L (17-59) U/L C-Reactive Protein 16.8 H (<1.0) mg/dL Total Protein 4.7 L (6.3-8.2) g/dL Albumin 2.4 L (3.5-5.0) g/dL Albumin/Globulin Ratio (1.60-3.17) Ratio Procalcitonin 11.00 H (0.02-0.09) ng/mL 01/25/24 01/25/24 Range/Units 06:17 06:17 WBC (3.8-10.6) k/uL RBC 4.24 L (4.40-5.60) X 10*6/uL Hgb 12.1 L (13.0-17.0) g/dL Hct 37.6 L (39.6-50.0) % MPV 9.4 L (9.5-12.2) FL Neutrophils # (1.3-7.7) k/uL Lymphocytes # (1.0-4.8) k/uL Sodium (137-145) mmol/L Chloride 111 H (98-107) mmol/L BUN/Creatinine Ratio 27.43 H (12.00-20.00) Ratio Glucose 132 H (74-99) mg/dL Calcium 8.2 L (8.4-10.2) mg/dL AST 8 L (17-59) U/L C-Reactive Protein (<1.0) mg/dL Total Protein 4.4 L (6.3-8.2) g/dL Albumin 2.7 L (3.5-5.0) g/dL Albumin/Globulin Ratio 1.59 L (1.60-3.17) Ratio Procalcitonin (0.02-0.09) ng/mL Microbiology - Last 24 Hours (Table) 01/24/24 15:45 Gram Stain - Preliminary Sputum 01/23/24 14:55 Urine Culture - Preliminary Urine,Clean Catch Gram Neg Bacilli 01/23/24 09:25 Blood Culture - Preliminary Blood 01/23/24 09:40 Blood Culture - Preliminary Blood Assessment and Plan (1) Sepsis secondary to UTI Current Visit: No Status: Acute Code(s): A41.9 - SEPSIS, UNSPECIFIED ORGANISM; N39.0 - URINARY TRACT INFECTION, SITE NOT SPECIFIED SNOMED Code(s): 481637597 Plan: The patient likely has UTI/sepsis secondary to recent transrectal ultrasound- guided prostate biopsies. Preliminary urine culture shows gram-negative bacilli. He is feeling better and is afebrile. His WBC count has normalized. Anticipate discharge home tomorrow on culture-appropriate antibiotics.
--- NOTE | 2024-01-25 13:42 | P.PN ---
Subjective Progress Note Date: 01/25/24 This is a 73-year-old white male with history of multiple medical problems including COPD, bullous emphysema, recurrent pneumothoraces in the past, history of pulmonary embolism, normally sees Dr. Rascon on outpatient basis. On 01/21/2024, patient underwent multiple prostate biopsies which came back negative for malignancy. Today the patient came into the ER with 1 day history of fever, cough, cough is productive with yellow phlegm, chills, and according to him he was probably a bit confused this morning. At that time he was having severe chills. Patient had no symptoms related to his prostate biopsy, no dysuria frequency or urgency. Did feel a bit nauseated earlier today. But no vomiting. At any rate workup in the ER included a CBC which showed leukocytosis with WBC count of 21.7. Normal electrolytes, normal basic metabolic profile, urine however showed evidence of pyuria and hematuria. With leukocyte Estrace positive screening for influenza A B RSV and COVID-19 were all negative chest x- ray showed left lower lobe infiltrate,/atelectasis hence the patient was admitted and this consult was initiated. Saw the patient in the ER, patient did not seem to be in distress, he is on 2 L nasal cannula with O2 sats of 95%, hemodynamically stable, blood pressure 96/69 with a mean of 78., Heart rate of 72. He had a temp of 98.7 Was reevaluated today on 01/24/2024, patient is doing much better, he has no active pulmonary symptoms no cough no wheezing no shortness of breath, denies any dysuria frequency urgency. Patient is on room air, O2 sat is 91% his temp is 97 8 pulse 75 blood pressure 91/58. Mean of 69 WBC count is down to 11.1 hemoglobin is 13.4 basic metabolic profile is normal his WBC count on admission was 21.7. Cultures so far are all nondiagnostic. His urinalysis is suspicious for urinary tract infection. Chest x-ray questioned a left lower lobe infiltrate however on physical examination he sounded quite clear specially over the left lower lobe. The patient is seen today January 25, 2024 in follow-up on the regular medical floor. He is currently sitting up at the bedside. Awake and alert in no acute distress. Denies any worsening shortness of breath, cough or congestion. He is maintaining good O2 saturations in the 90s on room air. He is afebrile. Hemodynamically stable. Urine culture is positive for gram-negative bacilli. Blood and sputum cultures revealing no growth. White count 9.5. Hemoglobin 12.1. Platelets 173. Sodium 141. Potassium 4.1. Bicarb 23. BUN 19. Creatinine 0.7. Glucose 132. Procalcitonin was 11. He is continued on cefepime. Continued on bronchodilators. Anticoagulated with Eliquis. Objective - Vital Signs Vital signs: Vital Signs Temp 98.2 F 01/25/24 07:44 Pulse 67 01/25/24 11:30 Resp 18 01/25/24 07:44 BP 148/77 01/25/24 07:44 Pulse Ox 93 L 01/25/24 07:44 FiO2 Intake & Output 01/24/24 01/25/24 01/25/24 18:59 06:59 18:59 Intake Total 716 Balance 716 Intake: Oral 716 Other: Voiding Method Toilet Toilet Toilet Urinal Urinal Urinal # Voids 1 3 - Exam GENERAL EXAM: Alert, active, pleasant 73-year-old male, on room air, comfortable in no apparent distress. HEAD: Normocephalic. EYES: Normal reaction of pupils, equal size. NOSE: Clear with pink turbinates. THROAT: No erythema or exudates. NECK: No masses, no JVD. CHEST: No chest wall deformity. LUNGS: Equal air entry with no crackles, wheeze, rhonchi or dullness. Diminished. CVS: S1 and S2 normal with no audible murmur, regular rhythm. ABDOMEN: No hepatosplenomegaly, normal bowel sounds, no guarding or rigidity. SPINE: No scoliosis or deformity SKIN: No rashes CENTRAL NERVOUS SYSTEM: No focal deficits, tone is normal in all 4 extremities. EXTREMITIES: There is no peripheral edema. No clubbing, no cyanosis. Peripheral pulses are intact. - Labs CBC & Chem 7: 01/25/24 06:17 01/25/24 06:17 Labs: Abnormal Lab Results - Last 24 Hours (Table) 01/24/24 01/25/24 01/25/24 Range/Units 10:50 06:17 06:17 RBC 4.24 L (4.40-5.60) X 10*6/uL Hgb 12.1 L (13.0-17.0) g/dL Hct 37.6 L (39.6-50.0) % MPV 9.4 L (9.5-12.2) FL Chloride 111 H (96-109) mmol/L BUN/Creatinine Ratio 27.43 H (12.00-20.00) Ratio Glucose 132 H (70-110) mg/dL Calcium 8.2 L (8.7-10.3) mg/dL AST 8 L (14-35) U/L Total Protein 4.4 L (6.2-8.2) g/dL Albumin 2.7 L (3.8-4.9) g/dL Albumin/Globulin Ratio 1.59 L (1.60-3.17) Ratio Procalcitonin 11.00 H (0.02-0.09) ng/mL Microbiology - Last 24 Hours (Table) 01/24/24 15:45 Gram Stain - Preliminary Sputum Sputum Culture - Preliminary 01/23/24 14:55 Urine Culture - Preliminary Urine,Clean Catch Gram Neg Bacilli 01/23/24 09:25 Blood Culture - Preliminary Blood 01/23/24 09:40 Blood Culture - Preliminary Blood Assessment and Plan Assessment: Acute sepsis secondary to urinary tract infection with gram-negative bacilli Leukocytosis secondary to above History of recent prostate biopsies Underlying COPD presently inactive Remote history of pulmonary embolism History of CVA/TIA Degenerative joint disease History of bullous emphysema and previous volume reduction History of pneumothoraces Type 2 diabetes without complications Plan: The patient was seen and evaluated Urine positive for gram-negative bacilli Continue cefepime Continue bronchodilators Increase his activity as tolerated Urology and ID services following We will continue to follow I have personally seen and examined the patient, performed the documentation and the assessment and plan as written. Number of minutes spent on the visit: 10.
--- NOTE | 2024-01-25 16:57 | P.PN ---
Subjective Progress Note Date: 01/25/24 Principal diagnosis: Reason for follow-up is fever likely urinary source Patient is a 73-year-old male past medical history significant for diabetes mellitus reflux hyperlipidemia pneumonia COPD CVA TIA patient recently did have a prostate biopsy done in the outpatient setting on 01/20/2024, presented to hospital with fever rigors and chills and did have some burning and blood in the urine. On today's evaluation that is 01/25/2024,the patient denies any fever or any chills, patient is breathing comfortably on room air, the patient denies chest pain shortness of breath and no significant cough, patient denies abdominal pain, no nausea vomiting or diarrhea. The patient urinary symptoms have improved. Patient white count normalized to 9.53, creatinine 0.7 urine is growing gram- negative blood cultures pending Objective - Vital Signs Vital signs: Vital Signs Temp 97.6 F 01/25/24 12:31 Pulse 68 01/25/24 16:17 Resp 20 01/25/24 12:31 BP 110/73 01/25/24 12:31 Pulse Ox 95 01/25/24 12:31 FiO2 Intake & Output 01/24/24 01/25/24 01/25/24 18:59 06:59 18:59 Intake Total 716 Balance 716 Intake: Oral 716 Other: Voiding Method Toilet Toilet Toilet Urinal Urinal Urinal # Voids 1 3 - Exam GENERAL DESCRIPTION: An elderly male lying in bed in no distress RESPIRATORY SYSTEM: Unlabored breathing , decreased breath sounds at bases HEART: S1 S2 regular rate and rhythm , ABDOMEN: Soft , no tenderness EXTREMITIES: No edema feet - Labs CBC & Chem 7: 01/25/24 06:17 01/25/24 06:17 Labs: Abnormal Lab Results - Last 24 Hours (Table) 01/25/24 01/25/24 Range/Units 06:17 06:17 RBC 4.24 L (4.40-5.60) X 10*6/uL Hgb 12.1 L (13.0-17.0) g/dL Hct 37.6 L (39.6-50.0) % MPV 9.4 L (9.5-12.2) FL Chloride 111 H (96-109) mmol/L BUN/Creatinine Ratio 27.43 H (12.00-20.00) Ratio Glucose 132 H (70-110) mg/dL Calcium 8.2 L (8.7-10.3) mg/dL AST 8 L (14-35) U/L Total Protein 4.4 L (6.2-8.2) g/dL Albumin 2.7 L (3.8-4.9) g/dL Albumin/Globulin Ratio 1.59 L (1.60-3.17) Ratio Microbiology - Last 24 Hours (Table) 01/24/24 15:45 Gram Stain - Preliminary Sputum Sputum Culture - Preliminary 01/23/24 14:55 Urine Culture - Preliminary Urine,Clean Catch Gram Neg Bacilli 01/23/24 09:25 Blood Culture - Preliminary Blood 01/23/24 09:40 Blood Culture - Preliminary Blood Assessment and Plan (1) Sepsis secondary to UTI Current Visit: No Status: Acute Code(s): A41.9 - SEPSIS, UNSPECIFIED ORGANISM; N39.0 - URINARY TRACT INFECTION, SITE NOT SPECIFIED SNOMED Code(s): 647116364 Plan: 1patient presented hospital with sepsis in this patient who did have a fever elevated white count source is likely UTI questionably prostatitis in this patient who recently did have a prostate biopsy and did have significant rigors and chills along with urinary symptoms patient did have very minimal respiratory symptoms clinical suspicious low for pneumonia 2-patient did have resolution of his fever white count normalized urine is growing gram-negative with ID sensitivities pending, to continue with cefepime 2 g every 8 hours while waiting for the cultures to be finalized Dictation was produced using [employer] dictation software. please excuse any grammatical, word or spelling errors. Time with Patient: Less than 30
[2024-01-26 08:05] LABS: Glucose,Whole Blood 118 mg/dL (70-110)
[2024-01-26 12:22] LABS: Glucose,Whole Blood 125 mg/dL (70-110)
--- NOTE | 2024-01-26 12:52 | P.PN ---
Subjective Progress Note Date: 01/26/24 This is a 73-year-old white male with history of multiple medical problems including COPD, bullous emphysema, recurrent pneumothoraces in the past, history of pulmonary embolism, normally sees Dr. Rascon on outpatient basis. On 01/21/2024, patient underwent multiple prostate biopsies which came back negative for malignancy. Today the patient came into the ER with 1 day history of fever, cough, cough is productive with yellow phlegm, chills, and according to him he was probably a bit confused this morning. At that time he was having severe chills. Patient had no symptoms related to his prostate biopsy, no dysuria frequency or urgency. Did feel a bit nauseated earlier today. But no vomiting. At any rate workup in the ER included a CBC which showed leukocytosis with WBC count of 21.7. Normal electrolytes, normal basic metabolic profile, urine however showed evidence of pyuria and hematuria. With leukocyte Estrace positive screening for influenza A B RSV and COVID-19 were all negative chest x- ray showed left lower lobe infiltrate,/atelectasis hence the patient was admitted and this consult was initiated. Saw the patient in the ER, patient did not seem to be in distress, he is on 2 L nasal cannula with O2 sats of 95%, hemodynamically stable, blood pressure 96/69 with a mean of 78., Heart rate of 72. He had a temp of 98.7 Was reevaluated today on 01/24/2024, patient is doing much better, he has no active pulmonary symptoms no cough no wheezing no shortness of breath, denies any dysuria frequency urgency. Patient is on room air, O2 sat is 91% his temp is 97 8 pulse 75 blood pressure 91/58. Mean of 69 WBC count is down to 11.1 hemoglobin is 13.4 basic metabolic profile is normal his WBC count on admission was 21.7. Cultures so far are all nondiagnostic. His urinalysis is suspicious for urinary tract infection. Chest x-ray questioned a left lower lobe infiltrate however on physical examination he sounded quite clear specially over the left lower lobe. The patient is seen today January 25, 2024 in follow-up on the regular medical floor. He is currently sitting up at the bedside. Awake and alert in no acute distress. Denies any worsening shortness of breath, cough or congestion. He is maintaining good O2 saturations in the 90s on room air. He is afebrile. Hemodynamically stable. Urine culture is positive for gram-negative bacilli. Blood and sputum cultures revealing no growth. White count 9.5. Hemoglobin 12.1. Platelets 173. Sodium 141. Potassium 4.1. Bicarb 23. BUN 19. Creatinine 0.7. Glucose 132. Procalcitonin was 11. He is continued on cefepime. Continued on bronchodilators. Anticoagulated with Eliquis. The patient is seen today January 26, 2024 in follow-up on the regular medical floor. He is awake and alert in no acute distress. He is maintaining good O2 saturations in the 90s on room air. He denies any worsening shortness of breath, cough or congestion. Sputum culture revealed no growth. Blood culture revealed no growth. His urine culture did come back with a resistant E. coli. He is currently on cefepime. Remains on bronchodilators. Anticoagulated with Eliquis. Objective - Vital Signs Vital signs: Vital Signs Temp 98.0 F 01/26/24 07:23 Pulse 74 01/26/24 10:10 Resp 16 01/26/24 10:10 BP 155/92 01/26/24 07:23 Pulse Ox 94 L 01/26/24 07:23 FiO2 Intake & Output 01/25/24 01/26/24 01/26/24 18:59 06:59 18:59 Intake Total 700 Balance 700 Intake: Intake, IV Titration 100 Amount Cefepime 2 gm In Sodium 100 Chloride 0.9% 100 ml @ 25 mls/hr IVPB Q8HR [facility] Rx# :[id number] Oral 600 Other: Voiding Method Toilet Toilet Toilet Urinal Urinal # Voids 3 # Bowel Movements 1 - Exam GENERAL EXAM: Alert, 73-year-old male, on room air, in no apparent distress. HEAD: Normocephalic. EYES: Normal reaction of pupils, equal size. NOSE: Clear with pink turbinates. THROAT: No erythema or exudates. NECK: No masses, no JVD. CHEST: No chest wall deformity. LUNGS: Equal air entry with no crackles, wheeze, rhonchi or dullness. Diminished. CVS: S1 and S2 normal with no audible murmur, regular rhythm. ABDOMEN: No hepatosplenomegaly, normal bowel sounds, no guarding or rigidity. SPINE: No scoliosis or deformity SKIN: No rashes CENTRAL NERVOUS SYSTEM: No focal deficits, tone is normal in all 4 extremities. EXTREMITIES: There is no peripheral edema. No clubbing, no cyanosis. Peripheral pulses are intact. - Labs CBC & Chem 7: 01/25/24 06:17 01/25/24 06:17 Labs: Abnormal Lab Results - Last 24 Hours (Table) 01/26/24 01/26/24 Range/Units 08:04 12:20 POC Glucose (mg/dL) 118 H 125 H (70-110) mg/dL Microbiology - Last 24 Hours (Table) 01/24/24 15:45 Gram Stain - Final Sputum Sputum Culture - Final 01/23/24 14:55 Urine Culture - Final Urine,Clean Catch Escherichia coli 01/23/24 09:25 Blood Culture - Preliminary Blood 01/23/24 09:40 Blood Culture - Preliminary Blood Assessment and Plan Assessment: Acute sepsis secondary to urinary tract infection with resistant E. coli currently on cefepime Leukocytosis secondary to above History of recent prostate biopsies Underlying COPD presently inactive Remote history of pulmonary embolism History of CVA/TIA Degenerative joint disease History of bullous emphysema and previous volume reduction History of pneumothoraces Type 2 diabetes without complications Plan: The patient was seen and evaluated Labs and medications reviewed Urine positive for resistant E. coli Continue cefepime Continue bronchodilators Stable and on room air We will continue to follow I have personally seen and examined the patient, performed the documentation and the assessment and plan as written. Number of minutes spent on the visit: 10.
[2024-01-26 13:04] VITALS: BP 114/70; PULSE 60; RESP 20; TEMP 97.7
--- NOTE | 2024-01-26 13:17 | P.DS ---
Providers Date of admission: 01/23/24 11:30 Attending physician: Kevin Dennison Consults: 01/23/24 11:32 Consult Physician Routine Consulting Provider: Clark Gastelum Consult Reason/Comments: pneumonia, copd, sepsis, hypoxic resp failure Do you want consulting provider notified?: Yes 01/23/24 13:51 Consult Physician Routine Consulting Provider: Toni Hoffman Consult Reason/Comments: pneumonia, sepssi Do you want consulting provider notified?: Yes 01/23/24 18:47 Consult Physician Routine Consulting Provider: Chris Osuna Consult Reason/Comments: sepsis with UTI Do you want consulting provider notified?: Yes Primary care physician: [facility] Course: HISTORY OF PRESENT ILLNESS: 73-year-old male one of our office patient who is known to have history of COPD, recurrent pneumothorax, history of pulmonary embolism, history of hypertension, hyperlipidemia, previous history of myocardial infarction with atherosclerotic heart disease who also has recurrent pneumonia and respiratory failure in the past who apparently had seen urology with elevated PSA schedule and had prostate biopsy 48 hours earlier. Patient presented to the emergency department at [facility] today because of fever chills slight sputum production with slight increase lower abdominal discomfort with slight change in urine his symptoms become quite with severe combined between urinary tract and upper respiratory. Was seen and evaluated Laboratory value showed white blood cell of 21,700 with left shift, electrolyte with normal creatinine blood sugar was 156, urine was very positive with 1+ ketones, 1+ protein, 4+ sugar, moderate leukocyte with WBC and RBC. His RSV COVID and influenza were all negative. Chest x-ray shows mild left lower lobe infiltrate with sign of COPD. Culture was done and starting patient off Zosyn and vancomycin initially, updraft treatment along with Solu-Medrol consult pulmonary and infectious disease patient be admitted to the hospital for combination of left lower lobe pneumonia along with sepsis with urinary tract infection. 01/24/2024: Urology consultation was done today and as expected they believe it is more sepsis and UTI after recent transrectal ultrasound-guided prostate biopsy. Urine culture starkly positive for gram negative bacilli most likely will be E. coli. The meanwhile he has been cover with antibiotics. Also from pulmonary standpoint agree this is most likely urinary tract but the left lower lobe has slight consolidation on x-ray specially with patient history of COPD and bullous emphysema make this conclusion little bit difficult. Continue cefepime continue bronchodilator patient will be on antibiotic coverage for the UTI so we will cover the lungs as well as a precaution. 01/25/2024: Urine culture is positive for gram-negative bacilli most likely E. coli, final culture is not done yet, patient still on cefepime at this point. He is feeling much better we will continue current management/sepsis/UTI. As for his lung infection and a possible pneumonia he is a lot better clinically we will continue the management with updraft [id number] along with supportive oxygen, The patient was seen urology today hopefully with final culture done by tomorrow should be able to let him go home tomorrow with oral antibiotics. 01/26/2024: Patient was seen today feeling much better his final urine culture came back as E. coli switch him to Ceftin orally pulmonary nguyen he is doing much better saturation in the 90 on room air does not require any oxygen no shortness of breath cough or congestion. Agreed with 2 service with urology and pulmonary service to treat this as sepsis with urinary tract infection even patient had low-grade pneumonia will be part of the treatment. Patient be discharged home today on oral antibiotic and to be seen in the office in the next 3 to 5 days and will be seeing urology in the next few days. REVIEW OF SYSTEMS: CONSTITUTIONAL: Well-developed no acute respiratory distress. EYES: No icterus sclerae, no conjunctivitis. EARS, NOSE, MOUTH, THROAT, and FACE: No sore throat, lymphadenopathy, carotid bruits or deformity. RESPIRATORY: Slight shortness of breath mild cough and wheezes. CARDIOVASCULAR: Positive PND orthopnea palpitation. GASTROINTESTINAL: No Abd pain, Nausea or vomiting, no Diarrhea or constipation, No GI Bleed, no distention or masses. GENITOURINARY: Post prostate biopsy with slight hematuria and slight discomfort. INTEGUMENT/BREAST: Negative for any muscular injury with mild osteoarthritis.. HEMATOLOGIC/LYMPHATIC: Negative for bleed or purpura. MUSCULOSKELTAL: Generalized muscle and joint pain. NEURLOGICAL: No LOC, Sz or syncope, blurred vision dizziness or abnormality.. BEHAVIORAL/PSYCH: Negative. ENDOCRINE: Negative. PHYSICAL EXAMINATION: General Appearance: Alert, cooperative, no distress, appears stated age. Neck HEENT: Supple, no lymphadenopathy, no thyroid enlargement, no carotid bruits. Lungs: Decreased breath sound in the bases only specially left side with mild rhonchi with minimal expiratory wheezes slight crackles and very limited area on the lower part of the lung. Chest Wall: Decreased expansion with deep inspiration no tenderness and no deformity was found on exam, no costochondral pain or discomfort. Heart: Regular rate and rhythm, S1, S2 normal mild tachycardia with systolic murmur. Abdomen: Slight lower abdominal region discomfort with no rebound or rigidity. Extremities: Extremities normal, atraumatic, no cyanosis or edema. Pulses: 2+ and symmetric. Skin: Skin color, texture, tugor normal, no rashes or lesions. Neurologic: Alert oriented x3 cranial nerves II through XII intact, no motor deficit, no abnormal balance or gait. ASSESSMENT AND PLAN: _Sepsis: Most likely source of urinary tract infection versus left lower lobe pneumonia, patient was getting vancomycin and Zosyn and was switched to cefepime after seeing pulmonary. Culture is more positive for urinary tract infection with gram-negative bacilli. Most likely E. coli we will switch antibiotics as advanced tomorrow to oral have him go home on it. _Possible left lower lobe pneumonia: With elevated white blood cell and finding on x-ray patient was switched to cefepime will continue Solu-Medrol along with updraft treatment. Patient has bullous emphysema make the conclusion with a consultation difficult to assume was not an infection so will be covered with antibiotic anyway. _UTI with sepsis: Most likely underlying is a biopsy in the rotation from but he had 2 days ago, UA is very positive patient will benefit from better coverage for urinary tract infection or sepsis with UTI. Will continue Flomax as well. Will be on antibiotic for at least another week. _Recent prostate biopsy still waiting for the result but was probably an underlying problem with the leukocytosis and UTI at this point. _History of CVA: No residual at this point still on anticoagulation with Plavix along with better control of blood sugar, cholesterol and blood pressure. _COPD with mild exacerbation: Solu-Medrol along with Symbicort and albuterol/ipratropium will be done. _ Atherosclerotic heart disease: No chest pain or angina continue metoprolol, isosorbide mononitrate, losartan, Zetia along with Jardiance. Still on Plavix as well. _Anticoagulation: With previous history of pulmonary embolism, still on Eliquis 5 mg twice a day. _Hyperlipidemia: Continue combination of atorvastatin 40 mg a day along with Zet ia 10 mg a day. _Severe neuropathy: Continue gabapentin total of 600 mg in the morning and 1200 mg at night. _Type 2 diabetes: He is to remain on metformin 1000 mg twice a day, Jardiance 10 mg daily will continue Accu-Chek with sliding scale coverage. _Hypertension: Remain on metoprolol titrate 12.5 mg daily along with losartan 50 mg a day. _Severe GERD/GI prophylaxis: Remain on pantoprazole 40 mg a day Prognosis: Fair. Discussion: White blood cell is down to 9000, his final culture is not complete yet, will continue cefepime till the final culture is back to send him home on oral antibiotic as admitted tomorrow. Hospital course: Patient was admitted with sign of sepsis found to have urinary tract infection and left lower lobe pneumonia, was treated on aggressive managem ent with vancomycin and Zosyn initially was switched to cefepime after seeing infectious disease, his white blood cell initially was over 20,000 and ended up coming down to 9000. Advance management his UA and urine culture came back positive for E. coli as a final culture. Patient was stable his pulse ox initially was slightly red down but after the first day pulse oximetry on room air was above 90 percentile. Patient initially was started on Solu-Medrol with Symbicort did not require to stay on steroid systemic anymore after third day. Patient is very stable agreed with both urology and pulmonary to treat this as sepsis with urinary tract infection and finished rest of the course as an outpatient with antibiotic Ceftin 500 mg twice a day for total of 1 week. Patient be seen back in the office in 3 to 5 days and will be seeing urology within the next few days. Time spent on discharging patient was over 35 minutes. Patient Condition at Discharge: Serious Plan - Discharge Summary Discharge Rx Participant: No New Discharge Prescriptions: New Cefuroxime [Ceftin] 500 mg PO BID 7 Days #14 tab Continue Gabapentin 1,200 mg PO HS ALPRAZolam [Xanax] 1 mg PO HS Fluticasone/Umeclidin/Vilanter [Trelegy Ellipta 100-62.5-25] 1 puff INHALATION RT-DAILY Losartan [Cozaar] 50 mg PO DAILY #90 tab Apixaban [Eliquis] 5 mg PO DAILY Ezetimibe [Zetia] 10 mg PO DAILY traZODone HCL [Desyrel] 200 mg PO HS Butalb/APAP/Caff 50-325-40Mg [Fioricet 50-325-40] 1 tab PO Q4H PRN PRN Reason: Headache Tamsulosin [Flomax] 0.4 mg PO HS Isosorbide Mononitrate ER [Imdur] 30 mg PO DAILY Albuterol Inhaler [Ventolin Hfa Inhaler] 2 puff INHALATION RT-Q4H PRN PRN Reason: Shortness Of Breath Hydrocortisone [Cortef] 30 mg PO DAILY Gabapentin 600 mg PO DAILY Pantoprazole Sodium [Protonix] 40 mg PO BID rOPINIRole HCL [Requip] 0.5 mg PO BID Clopidogrel Bisulfate [Clopidogrel] 75 mg PO DAILY metFORMIN HCL 1,000 mg PO BID Empagliflozin [Jardiance] 10 mg PO DAILY Fluticasone Propion/Salmeterol [Wixela 250-50 Inhub] 1 puff INHALATION RT-BID PRN PRN Reason: Shortness Of Breath Budesonide/Formoterol Fumarate [Symbicort 80-4.5 Mcg Inhaler] 2 puff INHALATION RT-BID PRN PRN Reason: Shortness Of Breath Atorvastatin [Lipitor] 40 mg PO HS HYDROcodone/APAP 7.5-325MG [[place] 7.5-325] 1 tab PO TID Metoprolol Tartrate [Lopressor] 12.5 mg PO DAILY Famotidine 40 mg PO HS Clotrimazole/Betameth Cream [Lotrisone] 1 applic TOPICAL BID PRN PRN Reason: Rash Discharge Medication List Gabapentin 1,200 mg PO HS 04/09/16 [History] ALPRAZolam [Xanax] 1 mg PO HS 03/25/20 [History] Fluticasone/Umeclidin/Vilanter [Trelegy Ellipta 100-62.5-25] 1 puff INHALATION RT-DAILY 10/25/21 [History] Hydrocortisone [Cortef] 30 mg PO DAILY 04/19/22 [History] Gabapentin 600 mg PO DAILY 09/17/22 [History] Pantoprazole Sodium [Protonix] 40 mg PO BID 09/17/22 [History] Losartan [Cozaar] 50 mg PO DAILY #90 tab 09/18/22 [Rx] Apixaban [Eliquis] 5 mg PO DAILY 05/17/23 [History] Budesonide/Formoterol Fumarate [Symbicort 80-4.5 Mcg Inhaler] 2 puff INHALATION RT-BID PRN 05/17/23 [History] Butalb/APAP/Caff 50-325-40Mg [Fioricet 50-325-40] 1 tab PO Q4H PRN 05/17/23 [History] Clopidogrel Bisulfate [Clopidogrel] 75 mg PO DAILY 05/17/23 [History] Empagliflozin [Jardiance] 10 mg PO DAILY 05/17/23 [History] Ezetimibe [Zetia] 10 mg PO DAILY 05/17/23 [History] Fluticasone Propion/Salmeterol [Wixela 250-50 Inhub] 1 puff INHALATION RT-BID PRN 05/17/23 [History] metFORMIN HCL 1,000 mg PO BID 05/17/23 [History] rOPINIRole HCL [Requip] 0.5 mg PO BID 05/17/23 [History] traZODone HCL [Desyrel] 200 mg PO HS 05/17/23 [History] Albuterol Inhaler [Ventolin Hfa Inhaler] 2 puff INHALATION RT-Q4H PRN 01/23/24 [History] Atorvastatin [Lipitor] 40 mg PO HS 01/23/24 [History] Clotrimazole/Betameth Cream [Lotrisone] 1 applic TOPICAL BID PRN 01/23/24 [History] Famotidine 40 mg PO HS 01/23/24 [History] HYDROcodone/APAP 7.5-325MG [[place] 7.5-325] 1 tab PO TID 01/23/24 [History] Isosorbide Mononitrate ER [Imdur] 30 mg PO DAILY 01/23/24 [History] Metoprolol Tartrate [Lopressor] 12.5 mg PO DAILY 01/23/24 [History] Tamsulosin [Flomax] 0.4 mg PO HS 01/23/24 [History] Cefuroxime [Ceftin] 500 mg PO BID 7 Days #14 tab 01/26/24 [Rx] Follow up Appointment(s)/Referral(s): Dyana Giordano MD [Primary Care Provider] - 1-2 days (please call office saturday to schedule your appointment.) Chris Osuna MD [STAFF PHYSICIAN] - 1 Week Patient Instructions/Handouts: Prostatitis (DC), Urinary Tract Infection in Men (DC), COPD (Chronic Obstructive Pulmonary Disease) (DC) Discharge Disposition: HOME SELF-CARE
--- NOTE | 2024-01-26 15:03 | P.PN ---
Subjective Progress Note Date: 01/26/24 Principal diagnosis: Febrile UTI The patient is a 73-year-old white male who underwent transrectal ultrasound- guided biopsies of the prostate January 20, 2024. He was admitted with fever and chills, and appears to have a UTI. Urine culture shows E. coli. Blood cultures are negative to date. He is currently receiving cefepime. He states that he is feeling better, and that his dysuria has almost resolved. He denies hematuria. Objective - Vital Signs Vital signs: Vital Signs Temp 98.0 F 01/26/24 07:23 Pulse 67 01/26/24 07:23 Resp 16 01/26/24 07:23 BP 155/92 01/26/24 07:23 Pulse Ox 94 L 01/26/24 07:23 FiO2 Intake & Output 01/25/24 01/26/24 01/26/24 18:59 06:59 18:59 Intake Total 700 Balance 700 Intake: Intake, IV Titration 100 Amount Cefepime 2 gm In Sodium 100 Chloride 0.9% 100 ml @ 25 mls/hr IVPB Q8HR [facility] Rx# :[id number] Oral 600 Other: Voiding Method Toilet Toilet Urinal Urinal # Voids 3 # Bowel Movements 1 - Constitutional General appearance: Present: average body habitus, no acute distress - Psychiatric Psychiatric: Present: A&O x's 3 - Labs CBC & Chem 7: 01/25/24 06:17 01/25/24 06:17 Labs: Abnormal Lab Results - Last 24 Hours (Table) 01/25/24 01/25/24 Range/Units 06:17 06:17 RBC 4.24 L (4.40-5.60) X 10*6/uL Hgb 12.1 L (13.0-17.0) g/dL Hct 37.6 L (39.6-50.0) % MPV 9.4 L (9.5-12.2) FL Chloride 111 H (96-109) mmol/L BUN/Creatinine Ratio 27.43 H (12.00-20.00) Ratio Glucose 132 H (70-110) mg/dL Calcium 8.2 L (8.7-10.3) mg/dL AST 8 L (14-35) U/L Total Protein 4.4 L (6.2-8.2) g/dL Albumin 2.7 L (3.8-4.9) g/dL Albumin/Globulin Ratio 1.59 L (1.60-3.17) Ratio Microbiology - Last 24 Hours (Table) 01/23/24 14:55 Urine Culture - Final Urine,Clean Catch Escherichia coli 01/23/24 09:25 Blood Culture - Preliminary Blood 01/23/24 09:40 Blood Culture - Preliminary Blood 01/24/24 15:45 Gram Stain - Preliminary Sputum Sputum Culture - Preliminary Assessment and Plan (1) Sepsis secondary to UTI Status: Acute Code(s): A41.9 - SEPSIS, UNSPECIFIED ORGANISM; N39.0 - URINARY TRACT INFECTION, SITE NOT SPECIFIED SNOMED Code(s): 853090752 Plan: The patient has a UTI, likely secondary to recent transrectal ultrasound-guided prostate biopsies. Urine culture shows E. coli. He is feeling better and is afebrile. His WBC count has normalized. He is being discharged home on Ceftin and will follow-up with me in 1 to 2 weeks.
== END 2024-01-26 13:18 | disposition home or self-care (01) | DRG 862 ==
LOC: EC 08:47 → 3SCARD 11:30 → 5NMEDONC 01-24 16:20
PROVIDERS: ADMIT Internal Medicine Geriatric Medicine; ATTEND Internal Medicine Geriatric Medicine
DX: T81.44XA Sepsis following a procedure, initial encounter (principal); A41.51 Sepsis due to Escherichia coli [E. coli]; J18.9 Pneumonia, unspecified organism; J96.91 Respiratory failure, unspecified with hypoxia; N39.0 Urinary tract infection, site not specified; N13.8 Other obstructive and reflux uropathy; J44.1 Chronic obstructive pulmonary disease with (acute) exacerbation; J44.0 Chronic obstructive pulmonary disease with (acute) lower respiratory infection; J43.9 Emphysema, unspecified; N40.1 Benign prostatic hyperplasia with lower urinary tract symptoms; E78.5 Hyperlipidemia, unspecified; H91.90 Unspecified hearing loss, unspecified ear; M19.90 Unspecified osteoarthritis, unspecified site; K57.90 Diverticulosis of intestine, part unspecified, without perforation or abscess without bleeding; I25.10 Atherosclerotic heart disease of native coronary artery without angina pectoris; I10 Essential (primary) hypertension; G25.81 Restless legs syndrome; R31.9 Hematuria, unspecified; E11.40 Type 2 diabetes mellitus with diabetic neuropathy, unspecified; K21.9 Gastro-esophageal reflux disease without esophagitis; M54.42 Lumbago with sciatica, left side; M54.41 Lumbago with sciatica, right side; Z86.73 Personal history of transient ischemic attack (TIA), and cerebral infarction without residual deficits; Z11.52 Encounter for screening for COVID-19; Z87.440 Personal history of urinary (tract) infections; Z86.711 Personal history of pulmonary embolism; Z87.01 Personal history of pneumonia (recurrent); Z79.899 Other long term (current) drug therapy; Z79.84 Long term (current) use of oral hypoglycemic drugs; Z79.51 Long term (current) use of inhaled steroids; Z79.02 Long term (current) use of antithrombotics/antiplatelets; Z79.01 Long term (current) use of anticoagulants; I25.2 Old myocardial infarction; Z87.891 Personal history of nicotine dependence
CPT/HCPCS: 36415; 71046; 80053; 81001; 83605; 83735; 84145; 85025; 85027; 85610; 85730; 86140; 87040; 87070; 87077; 87086; 87186; 87205; 87636; 93005; 94640; 94760; 96361; 96365; 96366; 96367; 96375; 99291

== ENCOUNTER 2024-02-23 12:13 | Emergency (ER) | payer MEDICARE ==
--- NOTE | 2024-02-23 13:10 | ED ---
General Adult HPI - General Chief complaint: Urogenital Stated complaint: Urogenital Time Seen by Provider: 02/23/24 12:49 Source: patient, RN notes reviewed, old records reviewed Mode of arrival: ambulatory Limitations: no limitations - History of Present Illness Initial comments: Patient is a 73-year-old male with a past medical history remarkable for COPD, diabetes, hypertension, PEs, recurrent UTIs who presents to the emergency department symptoms that remind him of his recurrent UTIs. Has a history of being septic which is why presents for further evaluation at this time. Endorses lower back pain as well. No confusion. Low-grade fever. No nausea or vomiting or anterior abdominal pain. Denies chest pain or shortness of breath. Patient is on blood thinners chronically. Has no other acute complaints at this time. Presents for further evaluation. Primary complaint is dysuria, as well as increased frequency both of which are reminiscent of recurrent UTIs. Denies any cough, diarrhea, nausea or vomiting. - Related Data Home Medications Medication Instructions Recorded Confirmed Gabapentin 1,200 mg PO HS 04/09/16 01/23/24 ALPRAZolam [Xanax] 1 mg PO HS 03/25/20 01/23/24 Fluticasone/Umeclidin/Vilanter 1 puff INHALATION RT-DAILY 10/25/21 01/23/24 [Trelegy Ellipta 100-62.5-25] Hydrocortisone [Cortef] 30 mg PO DAILY 04/19/22 01/23/24 Gabapentin 600 mg PO DAILY 09/17/22 01/23/24 Pantoprazole Sodium [Protonix] 40 mg PO BID 09/17/22 01/23/24 Apixaban [Eliquis] 5 mg PO DAILY 05/17/23 01/23/24 Budesonide/Formoterol Fumarate 2 puff INHALATION RT-BID PRN 05/17/23 01/23/24 [Symbicort 80-4.5 Mcg Inhaler] Butalb/APAP/Caff 50-325-40Mg 1 tab PO Q4H PRN 05/17/23 01/23/24 [Fioricet 50-325-40] Clopidogrel Bisulfate [Clopidogrel] 75 mg PO DAILY 05/17/23 01/23/24 Empagliflozin [Jardiance] 10 mg PO DAILY 05/17/23 01/23/24 Ezetimibe [Zetia] 10 mg PO DAILY 05/17/23 01/23/24 Fluticasone Propion/Salmeterol 1 puff INHALATION RT-BID PRN 05/17/23 01/23/24 [Wixela 250-50 Inhub] metFORMIN HCL 1,000 mg PO BID 05/17/23 01/23/24 rOPINIRole HCL [Requip] 0.5 mg PO BID 05/17/23 01/23/24 traZODone HCL [Desyrel] 200 mg PO HS 05/17/23 01/23/24 Albuterol Inhaler [Ventolin Hfa 2 puff INHALATION RT-Q4H PRN 01/23/24 01/23/24 Inhaler] Atorvastatin [Lipitor] 40 mg PO HS 01/23/24 01/23/24 Clotrimazole/Betameth Cream 1 applic TOPICAL BID PRN 01/23/24 01/23/24 [Lotrisone] Famotidine 40 mg PO HS 01/23/24 01/23/24 HYDROcodone/APAP 7.5-325MG [[place] 1 tab PO TID 01/23/24 01/23/24 7.5-325] Isosorbide Mononitrate ER [Imdur] 30 mg PO DAILY 01/23/24 01/23/24 Metoprolol Tartrate [Lopressor] 12.5 mg PO DAILY 01/23/24 01/23/24 Tamsulosin [Flomax] 0.4 mg PO HS 01/23/24 01/23/24 Previous Rx's Medication Instructions Recorded Losartan [Cozaar] 50 mg PO DAILY #90 tab 09/18/22 Cefuroxime [Ceftin] 500 mg PO BID 7 Days #14 tab 01/26/24 Ciprofloxacin HCl [Cipro] 500 mg PO Q12HR 7 Days #14 tab 02/23/24 Allergies Allergy/AdvReac Type Severity Reaction Status Date / Time No Known Allergies Allergy Verified 02/23/24 12:35 Review of Systems ROS Statement: Those systems with pertinent positive or pertinent negative responses have been documented in the HPI. Review of Systems: CONST: Endorses low-grade fever EYES: Denies blurry vision ENT: Denies nasal congestion C/V: Denies Chest pain RESP: Denies shortness of breath GI: Denies abdominal pain : Endorses dysuria SKIN: Denies rash. MSK: Endorses mild lower back pain NEURO: Denies headache ROS Other: All systems not noted in ROS Statement are negative. Past Medical History Past Medical History: COPD, CVA/TIA, Diabetes Mellitus, GERD/Reflux, Hearing Disorder / Deafness, Hyperlipidemia, Myocardial Infarction (AL), Musculoskeletal Disorder, Osteoarthritis (OA), Pneumonia, Prostate Disorder, Pulmonary Embolus (PE), Respiratory Disorder Additional Past Medical History / Comment(s): PE/RLL pneumonia/acute hypoxic failure. Portal bollous emphysema. low back pain, bilat sciatica; RLS; migraines, TIA , BPH, hearing aids, , diverticulosis. onset diabetes 08/11/19, multiple pneumothorax, O2 @2-4L NC prn. Adrenal insufficiency Last Myocardial Infarction Date:: 12/30/2019 History of Any Multi-Drug Resistant Organisms: None Reported Past Surgical History: Heart Catheterization With Stent, Hernia Repair, Orthopedic Surgery, Prostate Surgery, Tonsillectomy Additional Past Surgical History / Comment(s): Septoplasty/ESSS, EGD, colonoscopy with benign polyp, R inguinal hernia, umbilical hernia, pain clinic procedures, atilio fundloplication. upper bilat lung lobes removed 05/2021, prostate surgery 3 weeks ago. Prostate biopsy 01/20/24. Past Anesthesia/Blood Transfusion Reactions: No Reported Reaction Additional Past Anesthesia/Blood Transfusion Reaction / Comment(s): no known family hx Date of Last Stent Placement:: Past Psychological History: No Psychological Hx Reported, PTSD Smoking Status: Former smoker Past Alcohol Use History: None Reported Past Drug Use History: None Reported - Past Family History Father History Unknown: Yes Family Medical History: No Reported History, Unable to Obtain Additional Family Medical History / Comment(s): Pt was adopted. Mother History Unknown: Yes Additional Family Medical History / Comment(s): Pt was adopted. Daughter(s) Additional Family Medical History / Comment(s): Children do not have any major medical problems. No history of blood clots. General Exam - General Exam Comments Initial Comments: General: Appears in no acute distress. Low-grade fever. HEAD: Normal with no signs of head trauma. EYES: PERRLA, EOMI, conjunctiva normal, no discharge. ENT: Hearing grossly intact, normal oropharynx. RESPIRATORY: Clear breath sounds bilaterally. No wheezes, rales, or rhonchi. C/V: Regular rate and rhythm. S1 and S2 auscultated ABD: Abd is soft, nontender, nondistended EXT: Normal range of motion, no obvious deformity. Mild paraspinal muscle tenderness palpation of the lower lumbar spine. No flank pain. SKIN: No rashes or lesions observed on exposed skin. NEURO: Alert and oriented x 4. Limitations: no limitations Course Vital Signs 02/23/24 02/23/24 12:32 15:11 Temperature 100.7 F H 98.4 F Pulse Rate 104 H 79 Respiratory 18 18 Rate Blood Pressure 113/79 95/59 O2 Sat by Pulse 92 L 94 L Oximetry Medical Decision Making - Medical Decision Making Was pt. sent in by a medical professional or institution (, [facility], [employer], urgent care, hospital, or senior care...) When possible be specific @ -No Did you speak to anyone other than the patient for history (EMS, parent, family, police, friend...)? What history was obtained from this source @ -No Did you review nursing and triage notes (agree or disagree)? Why? @ -I reviewed and agree with nursing and triage notes Were old charts reviewed (outside hosp., previous admission, EMS record, old E KG, old radiological studies, urgent care reports/EKG's, senior care records)? Report findings @ -Old charts reviewed Differential Diagnosis (chest pain, altered mental status, abdominal pain women, abdominal pain men, vaginal bleeding, weakness, fever, dyspnea, syncope, headache, dizziness, GI bleed, back pain, seizure, CVA, palpatations, mental health, musculoskeletal)? @ -UTI, electrolyte abnormality, pyelonephritis. This list is not all inclusive. EKG interpreted by me (3pts min.). @ -None done X-rays interpreted by me (1pt min.). @ -None done CT interpreted by me (1pt min.). @ -None done U/S interpreted by me (1pt. min.). @ -None done What testing was considered but not performed or refused? (CT, X-rays, U/S, labs)? Why? @ -None What meds were considered but not given or refused? Why? @ -None Did you discuss the management of the patient with other professionals (chano chavez i.e. Dr., PA, [employer], lab, RT, psych nurse, social worker psychiatric, procedures rn, teacher, court security officer, watch case polisher)? Give summary @ -No Was smoking cessation discussed for >3mins.? @ -No Was critical care preformed (if so, how long)? @ -No Were there social determinants of health that impacted care today? How? (Homelessness, low income, unemployed, alcoholism, drug addiction, transportation, low edu. Level, literacy, decrease access to med. care, long-term, rehab)? @ -No Was there de-escalation of care discussed even if they declined (Discuss DNR or withdrawal of care, Hospice)? DNR status @ -No What co-morbidities impacted this encounter? (DM, HTN, Smoking, COPD, CAD, Cancer, CVA, ARF, Chemo, Hep., AIDS, mental health diagnosis, sleep apnea, morbid obesity)? @ -History of recurrent UTIs Was patient admitted / discharged? Hospital course, mention meds given and route, prescriptions, significant lab abnormalities, going to OR and other pertinent info. @ -Patient presents febrile with urinary complaints. Has a history of recurrent UTIs. Likely is experiencing UTI. We will obtain basic labs, urinalysis. Postvoid residual as the patient states he is uncertain if he is urinating enough is patient is a 40 cc. I did update the patient regarding this. He will be symptomatically treat with IV fluids, Zofran, Toradol as well as 1 g of Tylenol for his fever. He was in agreement this plan. Vital signs are within acceptable limits. Laboratory studies remarkable for leukocytosis of 16. Lactic acid is within acceptable limits. Urinalysis positive for UTI. On reevaluation, patient is feeling improved. I did discuss the results with him. He has UTI. We both agree he does not require imaging at this time. Renal function is within acceptable limits. He will be discharged home on ciprofloxacin. Urine culture sent. He will also receive a dose of Rocephin prior to discharge. Patient was in agreement this plan. I will provide the patient with a prescription for ciprofloxacin. I instructed the patient to follow up with their PCP in the next 1-3 days.. I explained that the patient should return to the emergency department if they experience any worsening symptoms. Strict return precautions were discussed with the patient. The patient expressed understanding of these instructions. I answered all questions that the patient had. The patient was discharged home in fair condition with their prescriptions and follow up information. Undiagnosed new problem with uncertain prognosis? @ -No Drug Therapy requiring intensive monitoring for toxicity (Heparin, Nitro, Insulin, Cardizem)? @ -No Were any procedures done? @ -No Diagnosis/symptom? @ -UTI Acute, or Chronic, or Acute on Chronic? @ -Acute Uncomplicated (without systemic symptoms) or Complicated (systemic symptoms)? @ -Complicated Side effects of treatment? @ -None Exacerbation, Progression, or Severe Exacerbation] @ -No Poses a threat to life or bodily function? @ -Unlikely - Lab Data Result diagrams: 02/23/24 13:13 02/23/24 13:13 Lab Results 02/23/24 02/23/24 02/23/24 Range/Units 13:13 13:13 13:13 WBC 16.2 H (3.8-10.6) k/uL RBC 5.27 (4.30-5.90) m/uL Hgb 14.7 (13.0-17.5) gm/dL Hct 47.6 (39.0-53.0) % MCV 90.4 (80.0-100.0) fL MCH 28.0 (25.0-35.0) pg MCHC 31.0 (31.0-37.0) g/dL RDW 14.2 (11.5-15.5) % Plt Count 228 (150-450) k/uL MPV 6.6 Neutrophils % 88 % Lymphocytes % 5 % Monocytes % 5 % Eosinophils % 1 % Basophils % 0 % Neutrophils # 14.2 H (1.3-7.7) k/uL Lymphocytes # 0.8 L (1.0-4.8) k/uL Monocytes # 0.8 (0-1.0) k/uL Eosinophils # 0.1 (0-0.7) k/uL Basophils # 0.0 (0-0.2) k/uL Sodium 137 (137-145) mmol/L Potassium 4.1 (3.5-5.1) mmol/L Chloride 109 H (98-107) mmol/L Carbon Dioxide 26 (22-30) mmol/L Anion Gap 2 mmol/L BUN 22 H (9-20) mg/dL Creatinine 0.71 (0.66-1.25) mg/dL Est GFR (CKD-EPI)AfAm >90 (>60 ml/min/1.73 sqM) Est GFR (CKD-EPI)NonAf >90 (>60 ml/min/1.73 sqM) Glucose 166 H (74-99) mg/dL Plasma Lactic Acid Leon (0.7-2.0) mmol/L Calcium 8.8 (8.4-10.2) mg/dL Total Bilirubin 0.6 (0.2-1.3) mg/dL AST 22 (17-59) U/L ALT 17 (4-49) U/L Alkaline Phosphatase 71 (38-126) U/L Total Protein 5.9 L (6.3-8.2) g/dL Albumin 3.3 L (3.5-5.0) g/dL Urine Color Light Yellow Urine Appearance Cloudy (Clear) Urine pH 5.5 (5.0-8.0) Ur Specific [place] 1.037 H (1.001-1.035) Urine Protein Trace H (Negative) Urine Glucose (UA) 4+ H (Negative) Urine Ketones Negative (Negative) Urine Blood Small H (Negative) Urine Nitrite Negative (Negative) Urine Bilirubin Negative (Negative) Urine Urobilinogen <2.0 (<2.0) mg/dL Ur Leukocyte Esterase Large H (Negative) Urine RBC 17 H (0-5) /hpf Urine WBC >182 H (0-5) /hpf Urine Bacteria Many H (None) /hpf Urine Mucus Rare H (None) /hpf 02/23/24 Range/Units 13:13 WBC (3.8-10.6) k/uL RBC (4.30-5.90) m/uL Hgb (13.0-17.5) gm/dL Hct (39.0-53.0) % MCV (80.0-100.0) fL MCH (25.0-35.0) pg MCHC (31.0-37.0) g/dL RDW (11.5-15.5) % Plt Count (150-450) k/uL MPV Neutrophils % % Lymphocytes % % Monocytes % % Eosinophils % % Basophils % % Neutrophils # (1.3-7.7) k/uL Lymphocytes # (1.0-4.8) k/uL Monocytes # (0-1.0) k/uL Eosinophils # (0-0.7) k/uL Basophils # (0-0.2) k/uL Sodium (137-145) mmol/L Potassium (3.5-5.1) mmol/L Chloride (98-107) mmol/L Carbon Dioxide (22-30) mmol/L Anion Gap mmol/L BUN (9-20) mg/dL Creatinine (0.66-1.25) mg/dL Est GFR (CKD-EPI)AfAm (>60 ml/min/1.73 sqM) Est GFR (CKD-EPI)NonAf (>60 ml/min/1.73 sqM) Glucose (74-99) mg/dL Plasma Lactic Acid Leon 1.2 (0.7-2.0) mmol/L Calcium (8.4-10.2) mg/dL Total Bilirubin (0.2-1.3) mg/dL AST (17-59) U/L ALT (4-49) U/L Alkaline Phosphatase (38-126) U/L Total Protein (6.3-8.2) g/dL Albumin (3.5-5.0) g/dL Urine Color Urine Appearance (Clear) Urine pH (5.0-8.0) Ur Specific [place] (1.001-1.035) Urine Protein (Negative) Urine Glucose (UA) (Negative) Urine Ketones (Negative) Urine Blood (Negative) Urine Nitrite (Negative) Urine Bilirubin (Negative) Urine Urobilinogen (<2.0) mg/dL Ur Leukocyte Esterase (Negative) Urine RBC (0-5) /hpf Urine WBC (0-5) /hpf Urine Bacteria (None) /hpf Urine Mucus (None) /hpf Disposition Clinical Impression: UTI (urinary tract infection) Disposition: HOME SELF-CARE Condition: Fair Instructions (If sedation given, give patient instructions): Urinary Tract Infection in Men (ED) Prescriptions: Ciprofloxacin HCl [Cipro] 500 mg PO Q12HR 7 Days #14 tab Is patient prescribed a controlled substance at d/c from ED?: No Referrals: Dyana Giordano MD [Primary Care Provider] - 1-2 days Time of Disposition: 15:25
[2024-02-23 13:11] VITALS: RESP 18
[2024-02-23] MEDS: KETOROLAC 15 MG/ML 1 ML VIAL IVP STA (13:28)
[2024-02-23] MEDS: ACETAMINOPHEN TAB 500 MG TAB PO STA (13:28)
[2024-02-23] MEDS: ONDANSETRON 4 MG/2 ML VIAL IVP STA (13:28)
[2024-02-23] MEDS: SODIUM CHLORIDE 0.9% 1,000 ML IV STA (13:29)
[2024-02-23 13:32] LABS: Basophils % (A) 0 %; Eosinophils # (A) 0.1 k/uL (0-0.7); Eosinophils % (A) 1 %; HCT 47.6 % (39.0-53.0); HGB 14.7 gm/dL (13.0-17.5); Lymphocytes # (A) 0.8 k/uL (1.0-4.8); Lymphocytes % (A) 5 %; MCV 90.4 fL (80.0-100.0); Mean Platelet Volume 6.6; Monocytes # (A) 0.8 k/uL (0-1.0); Monocytes % (A) 5 %; Neutrophils # (A) 14.2 k/uL (1.3-7.7); Neutrophils % (A) 88 %; Platelet Count 228 k/uL (150-450); RBC 5.27 m/uL (4.30-5.90); RDW 14.2 % (11.5-15.5); WBC 16.2 k/uL (3.8-10.6)
[2024-02-23 13:37] LABS: Appearance,Urine Cloudy (Clear); Bacteria,Urine Many /hpf; Bilirubin,Urine Negative (Negative); Blood,Urine Small (Negative); Color,Urine Light Yellow; Glucose,Urine (UA) 4+ (Negative); Ketones,Urine Negative (Negative); Leukocyte Esterase,Urine Large (Negative); Mucus,Urine Rare /hpf; Nitrite,Urine Negative (Negative); PH, Urine 5.5 (5.0-8.0); Protein,Urine Trace (Negative); RBC,Urine 17 /hpf (0-5); Specific Gravity,Urine 1.037 (1.001-1.035); Urobilinogen,Urine <2.0 mg/dL (<2.0); WBC,Urine >182 /hpf (0-5)
[2024-02-23 13:46] LABS: ALT 17 U/L (4-49); AST 22 U/L (17-59); African American GFR (CKD) >90 (>60 ml/min/1.73 sqM); Albumin 3.3 g/dL (3.5-5.0); Alkaline Phosphatase 71 U/L (38-126); Anion Gap 2 mmol/L; Blood Urea Nitrogen 22 mg/dL (9-20); Calcium 8.8 mg/dL (8.4-10.2); Carbon Dioxide 26 mmol/L (22-30); Chloride 109 mmol/L (98-107); Glucose 166 mg/dL (74-99); Non-African American GFR(CKD) >90 (>60 ml/min/1.73 sqM); Sodium 137 mmol/L (137-145); Total Bilirubin 0.6 mg/dL (0.2-1.3); Total Protein 5.9 g/dL (6.3-8.2)
[2024-02-23 13:49] LABS: Potassium 4.1 mmol/L (3.5-5.1)
[2024-02-23] MEDS: cefTRIAXone IN SWFI 1,000 MG/10 ML SYRINGE IVP STA (14:36)
[2024-02-23] MEDS: CIPROFLOXACIN HCL 500 MG TAB PO STA (14:36)
[2024-02-23 15:17] VITALS: BP 95/59; PULSE 79; TEMP 98.4
== END 2024-02-23 15:49 | disposition home or self-care (01) ==
LOC: EC 12:13
DX: N39.0 Urinary tract infection, site not specified (principal); E11.9 Type 2 diabetes mellitus without complications; E78.5 Hyperlipidemia, unspecified; I10 Essential (primary) hypertension; Z79.84 Long term (current) use of oral hypoglycemic drugs; Z79.899 Other long term (current) drug therapy; Z86.73 Personal history of transient ischemic attack (TIA), and cerebral infarction without residual deficits; Z87.891 Personal history of nicotine dependence
CPT/HCPCS: 51798; 36415; 80053; 83605; 85025; 81001; 87086; 87077; 87186; 99284; 96374; 96375 ×2; 96361; J2405; J0696; J1885

== ENCOUNTER 2024-04-10 08:37 | Emergency (ER) | payer MEDICARE ==
[2024-04-10 09:49] LABS: Appearance,Urine Clear (Clear); Bilirubin,Urine Negative (Negative); Blood,Urine Negative (Negative); Color,Urine Light Yellow; Glucose,Urine (UA) 4+ (Negative); Ketones,Urine Negative (Negative); Leukocyte Esterase,Urine Trace (Negative); Nitrite,Urine Negative (Negative); PH, Urine 6.5 (5.0-8.0); Protein,Urine Trace (Negative); RBC,Urine 3 /hpf (0-5); Specific Gravity,Urine 1.035 (1.001-1.035); WBC,Urine 39 /hpf (0-5)
--- NOTE | 2024-04-10 10:18 | ED ---
Fever HPI - General Source: patient, RN notes reviewed Mode of arrival: ambulatory Limitations: no limitations <Neha Morocho - Last Filed: 04/10/24 10:17> - General Source: patient, RN notes reviewed, old records reviewed <Jc Gonzalez - Last Filed: 04/10/24 13:35> - General Chief Complaint: Fever Stated Complaint: ANNETTA, Weakness, Chills Time Seen by Provider: 04/10/24 10:17 - History of Present Illness Initial Comments: Quick [id number] male with history of COPD presenting with fever x 2 days with fatigue and weakness. He also reports he is having dysuria and urinary urgency worsening over the past day. (Neha Morocho) Patient is a 73-year-old male who presents emergency department complaining of fevers, dysuria. He may have a UTI. Has a history of going septic from UTIs. He has a history of pneumonectomy, COPD, diabetes, CAD. Typically has oxygen ranging between 91 and 92%, occasionally improved. Has noticed symptoms for few days. Denies any significant cough. Denies any nausea or vomiting or diarrhea. Presents for further evaluation at this time. Originally seen as a quick note. I evaluated the patient when he was placed in a room. (Jc Gonzalez) - Related Data Home Medications Medication Instructions Recorded Confirmed Gabapentin 1,200 mg PO HS 04/09/16 01/23/24 ALPRAZolam [Xanax] 1 mg PO HS 03/25/20 01/23/24 Fluticasone/Umeclidin/Vilanter 1 puff INHALATION RT-DAILY 10/25/21 01/23/24 [Trelegy Ellipta 100-62.5-25] Hydrocortisone [Cortef] 30 mg PO DAILY 04/19/22 01/23/24 Gabapentin 600 mg PO DAILY 09/17/22 01/23/24 Pantoprazole Sodium [Protonix] 40 mg PO BID 09/17/22 01/23/24 Apixaban [Eliquis] 5 mg PO DAILY 05/17/23 01/23/24 Budesonide/Formoterol Fumarate 2 puff INHALATION RT-BID PRN 05/17/23 01/23/24 [Symbicort 80-4.5 Mcg Inhaler] Butalb/APAP/Caff 50-325-40Mg 1 tab PO Q4H PRN 05/17/23 01/23/24 [Fioricet 50-325-40] Clopidogrel Bisulfate [Clopidogrel] 75 mg PO DAILY 05/17/23 01/23/24 Empagliflozin [Jardiance] 10 mg PO DAILY 05/17/23 01/23/24 Ezetimibe [Zetia] 10 mg PO DAILY 05/17/23 01/23/24 Fluticasone Propion/Salmeterol 1 puff INHALATION RT-BID PRN 05/17/23 01/23/24 [Wixela 250-50 Inhub] metFORMIN HCL 1,000 mg PO BID 05/17/23 01/23/24 rOPINIRole HCL [Requip] 0.5 mg PO BID 05/17/23 01/23/24 traZODone HCL [Desyrel] 200 mg PO HS 05/17/23 01/23/24 Albuterol Inhaler [Ventolin Hfa 2 puff INHALATION RT-Q4H PRN 01/23/24 01/23/24 Inhaler] Atorvastatin [Lipitor] 40 mg PO HS 01/23/24 01/23/24 Clotrimazole/Betameth Cream 1 applic TOPICAL BID PRN 01/23/24 01/23/24 [Lotrisone] Famotidine 40 mg PO HS 01/23/24 01/23/24 HYDROcodone/APAP 7.5-325MG [[place] 1 tab PO TID 01/23/24 01/23/24 7.5-325] Isosorbide Mononitrate ER [Imdur] 30 mg PO DAILY 01/23/24 01/23/24 Metoprolol Tartrate [Lopressor] 12.5 mg PO DAILY 01/23/24 01/23/24 Tamsulosin [Flomax] 0.4 mg PO HS 01/23/24 01/23/24 Previous Rx's Medication Instructions Recorded Losartan [Cozaar] 50 mg PO DAILY #90 tab 09/18/22 Cefuroxime [Ceftin] 500 mg PO BID 7 Days #14 tab 01/26/24 Ciprofloxacin HCl [Cipro] 500 mg PO Q12HR 7 Days #14 tab 02/23/24 Nitrofurantoin Monohyd/M-Cryst 100 mg PO Q12HR 7 Days #14 cap 04/10/24 [Macrobid] Allergies Allergy/AdvReac Type Severity Reaction Status Date / Time No Known Allergies Allergy Verified 04/10/24 09:11 Review of Systems ROS Other: All systems not noted in ROS Statement are negative. <Neha Morocho - Last Filed: 04/10/24 10:17> ROS Other: All systems not noted in ROS Statement are negative. <Jc Gonzalez - Last Filed: 04/10/24 13:35> ROS Statement: Those systems with pertinent positive or pertinent negative responses have been documented in the HPI. Review of Systems: CONST: Endorses fever EYES: Denies blurry vision ENT: Denies nasal congestion C/V: Denies Chest pain RESP: Denies shortness of breath GI: Denies abdominal pain : Endorses dysuria SKIN: Denies rash. MSK: Denies joint pain. NEURO: Denies headache (Jc Gonzalez) Past Medical History Past Medical History: COPD, CVA/TIA, Diabetes Mellitus, GERD/Reflux, Hearing Disorder / Deafness, Hyperlipidemia, Myocardial Infarction ([place]), Musculoskeletal Disorder, Osteoarthritis (OA), Pneumonia, Prostate Disorder, Pulmonary Embolus (PE), Respiratory Disorder Additional Past Medical History / Comment(s): PE/RLL pneumonia/acute hypoxic failure. Portal bollous emphysema. low back pain, bilat sciatica; RLS; migraines, TIA , BPH, hearing aids, , diverticulosis. onset diabetes 08/11/19, multiple pneumothorax, O2 @2-4L NC prn. Adrenal insufficiency Last Myocardial Infarction Date:: 12/30/2019 History of Any Multi-Drug Resistant Organisms: None Reported Past Surgical History: Heart Catheterization With Stent, Hernia Repair, Orthopedic Surgery, Prostate Surgery, Tonsillectomy Additional Past Surgical History / Comment(s): Septoplasty/ESSS, EGD, colonoscopy with benign polyp, R inguinal hernia, umbilical hernia, pain clinic procedures, atilio fundloplication. upper bilat lung lobes removed 05/2021, prostate surgery 3 weeks ago. Prostate biopsy 01/20/24. Past Anesthesia/Blood Transfusion Reactions: No Reported Reaction Additional Past Anesthesia/Blood Transfusion Reaction / Comment(s): no known family hx Date of Last Stent Placement:: \\2019 Past Psychological History: No Psychological Hx Reported, PTSD Smoking Status: Former smoker Past Alcohol Use History: None Reported Past Drug Use History: None Reported - Past Family History Father History Unknown: Yes Family Medical History: No Reported History, Unable to Obtain Additional Family Medical History / Comment(s): Pt was adopted. Mother History Unknown: Yes Additional Family Medical History / Comment(s): Pt was adopted. Daughter(s) Additional Family Medical History / Comment(s): Children do not have any major medical problems. No history of blood clots. <MorochoNeha - Last Filed: 04/10/24 10:17> General Exam Limitations: no limitations <Neha Morocho - Last Filed: 04/10/24 10:17> <Jc Gonzalez - Last Filed: 04/10/24 13:35> - General Exam Comments Initial Comments: Visual Physical Exam Vital signs reviewed General: Well-appearing, nontoxic, no acute distress. Head: Normocephalic, atraumatic Eyes: PERRLA, EOMI ENT: Airway patent Chest: Nonlabored breathing Skin: No visual rash, normal skin tone Neuro: Alert and oriented 3 Musculoskeletal: No gross abnormalities (Neha Morocho) General: Appears in no acute distress. Febrile. HEAD: Normal with no signs of head trauma. EYES: PERRLA, EOMI, conjunctiva normal, no discharge. ENT: Hearing grossly intact, normal oropharynx. RESPIRATORY: Use breath sounds bilaterally likely secondary to history of p neumonectomy. No wheezes, rales, or rhonchi. C/V: Regular rate and rhythm. S1 and S2 auscultated, no edema, peripheral pulses 2+ and intact throughout ABD: Abd is soft, nontender, nondistended EXT: Normal range of motion, no obvious deformity SKIN: No rashes or lesions observed on exposed skin. NEURO: Alert and oriented x 4. (Jc Gonzalez) Course Vital Signs 04/10/24 04/10/24 09:07 12:46 Temperature 102.6 F H Pulse Rate 77 78 Respiratory 18 18 Rate Blood Pressure 108/69 O2 Sat by Pulse 91 L 95 Oximetry Medical Decision Making <Neha Moorcho - Last Filed: 04/10/24 10:17> - Lab Data Result diagrams: 04/10/24 12:20 04/10/24 12:20 - EKG Data -: EKG Interpreted by Me <Jc Gonzalez - Last Filed: 04/10/24 13:35> - Medical Decision Making I completed the quick note portion of this chart signed Neha Morocho PA-C (Neha Morocho) Was pt. sent in by a medical professional or institution (, QI, SUSTAINABILITY OFFICER, urgent care, hospital, or snf...) When possible be specific @ -No Did you speak to anyone other than the patient for history (EMS, parent, family, police, friend...)? What history was obtained from this source @ -No Did you review nursing and triage notes (agree or disagree)? Why? @ -I reviewed and agree with nursing and triage notes Were old charts reviewed (outside hosp., previous admission, EMS record, old EKG, old radiological studies, urgent care reports/EKG's, snf records)? Report findings @ -Old EKGs reviewed from earlier this year, showing the isolated T wave inversion is new but no reciprocal changes or patterns present. Differential Diagnosis (chest pain, altered mental status, abdominal pain women, abdominal pain men, vaginal bleeding, weakness, fever, dyspnea, syncope, headache, dizziness, GI bleed, back pain, seizure, CVA, palpatations, mental hea lth, musculoskeletal)? @ -Differential Fever: Pneumonia, viral URI, endocarditis, myocarditis, pericarditis, otitis, sinusitis, peritonsillar Abscess, retropharyngeal Abscess, epiglottitis, peritonitis, appendicitis, Aundrea cystitis, diverticulitis, hepatitis, colitis, UTI, PID, TOA, pyelonephritis, prostatitis, epididymitis, meningitis, encephalitis, pulmonary embolism, CVA, thyroid storm, pancreatitis, adrenal crisis, cavernous sinus thrombosis, this is not meant to be an all-inclusive list. EKG interpreted by me (3pts min.). @ -As above X-rays interpreted by me (1pt min.). @ -Chest x-ray shows no obvious acute cardiopulmonary process. CT interpreted by me (1pt min.). @ -None done U/S interpreted by me (1pt. min.). @ -None done What testing was considered but not performed or refused? (CT, X-rays, U/S, labs)? Why? @ -None What meds were considered but not given or refused? Why? @ -None Did you discuss the management of the patient with other professionals (professionals i.e. Dr., PA, SUSTAINABILITY OFFICER, lab, RT, psych nurse, social services aide, briquetter operator, teacher, radiation officer, case management assistant)? Give summary @ -No Was smoking cessation discussed for >3mins.? @ -No Was critical care preformed (if so, how long)? @ -No Were there social determinants of health that impacted care today? How? (Ho melessness, low income, unemployed, alcoholism, drug addiction, transportation, low edu. Level, literacy, decrease access to med. care, fdc, rehab)? @ -No Was there de-escalation of care discussed even if they declined (Discuss DNR or withdrawal of care, Hospice)? DNR status @ -No What co-morbidities impacted this encounter? (DM, HTN, Smoking, COPD, CAD, Cancer, CVA, ARF, Chemo, Hep., AIDS, mental health diagnosis, sleep apnea, morbid obesity)? @ -Pneumonectomy, history of UTIs Was patient admitted / discharged? Hospital course, mention meds given and route, prescriptions, significant lab abnormalities, going to OR and other pertinent info. @ -Based on patient's presentation and physical exam, presents emergency department complaining of fever and concern for UTI. No other significant findings. Started to work quick note. Patient is febrile. Remainder the signs are within acceptable limits for the patient as he typically runs low for his pulse ox due to his history of pneumonectomy. Patient will be given antipyretic medications, pain meds for chronic back pain, as well as IV fluids. We will obtain workup. Patient in agreement this plan. EKG shows no signs of acute ischemia. Chest x-ray unremarkable.Labs remarkable for mild leukocytosis 14. Remainder the workup unremarkable including a normal lactic acid. Urinalysis does show UTI with leukocyte esterase positive and positive white cells. Urine culture sent. Discussed with the patient. He is feeling improved. Symptomatically as well as based on blood work appears he has UTI. He will be started on Macrobid and given a dose of Rocephin. Instructed to follow-up with PCP and return if worsening symptoms. I do not believe he requires admission at this time. Patient in agreement this plan. I will provide the patient with a prescription for Macrobid. I instructed the patient to follow up with their PCP in the next 1-3 days.. I explained that the patient should return to the emergency department if they experience any worsening symptoms. Strict return precautions were discussed with the patient. The patient expressed understanding of these instructions. I answered all questions that the patient had. The patient was discharged home in good condition with their prescriptions and follow up information. Undiagnosed new problem with uncertain prognosis? @ -No Drug Therapy requiring intensive monitoring for toxicity (Heparin, Nitro, Insulin, Cardizem)? @ -No Were any procedures done? @ -No Diagnosis/symptom? @ -UTI Acute, or Chronic, or Acute on Chronic? @ -Acute Uncomplicated (without systemic symptoms) or Complicated (systemic symptoms)? @ -Complicated Side effects of treatment? @ -None Exacerbation, Progression, or Severe Exacerbation] @ -No Poses a threat to life or bodily function? @ -Potentially if untreated (Jc Gonzalez) - Lab Data Lab Results 04/10/24 04/10/24 04/10/24 Range/Units 09:35 10:41 10:41 WBC (3.8-10.6) k/uL RBC (4.30-5.90) m/uL Hgb (13.0-17.5) gm/dL Hct (39.0-53.0) % MCV (80.0-100.0) fL MCH (25.0-35.0) pg MCHC (31.0-37.0) g/dL RDW (11.5-15.5) % Plt Count (150-450) k/uL MPV Neutrophils % % Lymphocytes % % Monocytes % % Eosinophils % % Basophils % % Neutrophils # (1.3-7.7) k/uL Lymphocytes # (1.0-4.8) k/uL Monocytes # (0-1.0) k/uL Eosinophils # (0-0.7) k/uL Basophils # (0-0.2) k/uL Hypochromasia PT 10.9 (10.0-12.5) sec INR 1.0 (<1.2) APTT 26.1 (22.0-30.0) sec Sodium (137-145) mmol/L Potassium (3.5-5.1) mmol/L Chloride (98-107) mmol/L Carbon Dioxide (22-30) mmol/L Anion Gap mmol/L BUN (9-20) mg/dL Creatinine (0.66-1.25) mg/dL Est GFR (CKD-EPI)AfAm (>60 ml/min/1.73 sqM) Est GFR (CKD-EPI)NonAf (>60 ml/min/1.73 sqM) Glucose (74-99) mg/dL Plasma Lactic Acid Leon (0.7-2.0) mmol/L Calcium (8.4-10.2) mg/dL Magnesium 1.8 (1.6-2.3) mg/dL Total Bilirubin (0.2-1.3) mg/dL AST (17-59) U/L ALT (4-49) U/L Alkaline Phosphatase (38-126) U/L Total Protein (6.3-8.2) g/dL Albumin (3.5-5.0) g/dL Urine Color Light Yellow Urine Appearance Clear (Clear) Urine pH 6.5 (5.0-8.0) Ur Specific [place] 1.035 (1.001-1.035) Urine Protein Trace H (Negative) Urine Glucose (UA) 4+ H (Negative) Urine Ketones Negative (Negative) Urine Blood Negative (Negative) Urine Nitrite Negative (Negative) Urine Bilirubin Negative (Negative) Urine Urobilinogen 2.0 (<2.0) mg/dL Ur Leukocyte Esterase Trace H (Negative) Urine RBC 3 (0-5) /hpf Urine WBC 39 H (0-5) /hpf Influenza Type A (PCR) (Not Detectd) Influenza Type B (PCR) (Not Detectd) RSV (PCR) (Not Detectd) SARS-CoV-2 (PCR) (Not Detectd) 04/10/24 04/10/24 04/10/24 Range/Units 10:41 10:41 12:20 WBC 14.6 H (3.8-10.6) k/uL RBC 5.31 (4.30-5.90) m/uL Hgb 15.1 (13.0-17.5) gm/dL Hct 48.6 (39.0-53.0) % MCV 91.4 (80.0-100.0) fL MCH 28.4 (25.0-35.0) pg MCHC 31.0 (31.0-37.0) g/dL RDW 14.7 (11.5-15.5) % Plt Count 218 (150-450) k/uL MPV 8.0 Neutrophils % 88 % Lymphocytes % 6 % Monocytes % 5 % Eosinophils % 1 % Basophils % 0 % Neutrophils # 12.8 H (1.3-7.7) k/uL Lymphocytes # 0.8 L (1.0-4.8) k/uL Monocytes # 0.7 (0-1.0) k/uL Eosinophils # 0.1 (0-0.7) k/uL Basophils # 0.0 (0-0.2) k/uL Hypochromasia Slight PT (10.0-12.5) sec INR (<1.2) APTT (22.0-30.0) sec Sodium (137-145) mmol/L Potassium (3.5-5.1) mmol/L Chloride (98-107) mmol/L Carbon Dioxide (22-30) mmol/L Anion Gap mmol/L BUN (9-20) mg/dL Creatinine (0.66-1.25) mg/dL Est GFR (CKD-EPI)AfAm (>60 ml/min/1.73 sqM) Est GFR (CKD-EPI)NonAf (>60 ml/min/1.73 sqM) Glucose (74-99) mg/dL Plasma Lactic Acid Leon 1.1 (0.7-2.0) mmol/L Calcium (8.4-10.2) mg/dL Magnesium (1.6-2.3) mg/dL Total Bilirubin (0.2-1.3) mg/dL AST (17-59) U/L ALT (4-49) U/L Alkaline Phosphatase (38-126) U/L Total Protein (6.3-8.2) g/dL Albumin (3.5-5.0) g/dL Urine Color Urine Appearance (Clear) Urine pH (5.0-8.0) Ur Specific [place] (1.001-1.035) Urine Protein (Negative) Urine Glucose (UA) (Negative) Urine Ketones (Negative) Urine Blood (Negative) Urine Nitrite (Negative) Urine Bilirubin (Negative) Urine Urobilinogen (<2.0) mg/dL Ur Leukocyte Esterase (Negative) Urine RBC (0-5) /hpf Urine WBC (0-5) /hpf Influenza Type A (PCR) Not Detected (Not Detectd) Influenza Type B (PCR) Not Detected (Not Detectd) RSV (PCR) Not Detected (Not Detectd) SARS-CoV-2 (PCR) Not Detected (Not Detectd) 04/10/24 Range/Units 12:20 WBC (3.8-10.6) k/uL RBC (4.30-5.90) m/uL Hgb (13.0-17.5) gm/dL Hct (39.0-53.0) % MCV (80.0-100.0) fL MCH (25.0-35.0) pg MCHC (31.0-37.0) g/dL RDW (11.5-15.5) % Plt Count (150-450) k/uL MPV Neutrophils % % Lymphocytes % % Monocytes % % Eosinophils % % Basophils % % Neutrophils # (1.3-7.7) k/uL Lymphocytes # (1.0-4.8) k/uL Monocytes # (0-1.0) k/uL Eosinophils # (0-0.7) k/uL Basophils # (0-0.2) k/uL Hypochromasia PT (10.0-12.5) sec INR (<1.2) APTT (22.0-30.0) sec Sodium 138 (137-145) mmol/L Potassium 4.3 (3.5-5.1) mmol/L Chloride 108 H (98-107) mmol/L Carbon Dioxide 26 (22-30) mmol/L Anion Gap 4 mmol/L BUN 14 (9-20) mg/dL Creatinine 0.87 (0.66-1.25) mg/dL Est GFR (CKD-EPI)AfAm >90 (>60 ml/min/1.73 sqM) Est GFR (CKD-EPI)NonAf 85 (>60 ml/min/1.73 sqM) Glucose 107 H (74-99) mg/dL Plasma Lactic Acid Leon (0.7-2.0) mmol/L Calcium 8.1 L (8.4-10.2) mg/dL Magnesium (1.6-2.3) mg/dL Total Bilirubin 1.0 (0.2-1.3) mg/dL AST 16 L (17-59) U/L ALT 13 (4-49) U/L Alkaline Phosphatase 71 (38-126) U/L Total Protein 5.3 L (6.3-8.2) g/dL Albumin 3.1 L (3.5-5.0) g/dL Urine Color Urine Appearance (Clear) Urine pH (5.0-8.0) Ur Specific [place] (1.001-1.035) Urine Protein (Negative) Urine Glucose (UA) (Negative) Urine Ketones (Negative) Urine Blood (Negative) Urine Nitrite (Negative) Urine Bilirubin (Negative) Urine Urobilinogen (<2.0) mg/dL Ur Leukocyte Esterase (Negative) Urine RBC (0-5) /hpf Urine WBC (0-5) /hpf Influenza Type A (PCR) (Not Detectd) Influenza Type B (PCR) (Not Detectd) RSV (PCR) (Not Detectd) SARS-CoV-2 (PCR) (Not Detectd) - EKG Data EKG Comments: 12-lead Electrocardiogram Interpretation Note EKG was reviewed and interpreted by myself. 12-lead ECG performed at 0922 is interpreted by me as revealing normal sinus rhythm at a rate of 94 beats per minute. [place] is normal. NC interval is 175 ms, QRS durations 86 ms, QTc is 374 ms. Isolated T wave inversion in lead III.. There were no obvious acute ST or T wave abnormalities to suggest myocardial ischemia or injury. R wave progression across the precordium was satisfactory. By my interpretation this EKG is non-diagnostic for acute ischemia.Compared with prior EKG from January 18 which shows the T wave inversion is acute. (Jc Gonzalez) Disposition <Neha Morocho - Last Filed: 04/10/24 10:17> Is patient prescribed a controlled substance at d/c from ED?: No Time of Disposition: 13:30 <Jc Gonzalez - Last Filed: 04/10/24 13:35> Clinical Impression: UTI (urinary tract infection) Disposition: HOME SELF-CARE Condition: Fair Instructions (If sedation given, give patient instructions): Urinary Tract Infection in Men (ED) Additional Instructions: Return if worsening symptoms. Use tylenol/motrin for fever. complete full antibiotic. follow up with pcp in 2-3 days. Prescriptions: Nitrofurantoin Monohyd/M-Cryst [Macrobid] 100 mg PO Q12HR 7 Days #14 cap Referrals: Dyana Giordano MD [Primary Care Provider] - 1-2 days
[2024-04-10 10:55] LABS: Prothrombin Time 10.9 sec (10.0-12.5)
[2024-04-10 10:56] LABS: Partial Thromboplastin Time 26.1 sec (22.0-30.0)
--- NOTE | 2024-04-10 11:54 | XR ---
EXAMINATION TYPE: XR chest 2V DATE OF EXAM: 04/10/2024 COMPARISON: January 22 HISTORY: Shortness of breath TECHNIQUE: Frontal and lateral views of the chest are obtained. FINDINGS: Scattered senescent parenchymal changes noted. Hyperinflation compatible with COPD. Patchy perihilar and left basilar infiltrate. Correlate for pneumonia. Heart size is stable. Mediastinal structures are stable and grossly unremarkable. No evidence for hilar prominence. Degenerative changes dorsal spine. IMPRESSION: 1. No evidence for acute pulmonary disease.
[2024-04-10] MEDS: IBUPROFEN 800 MG TAB PO STA (12:05)
[2024-04-10] MEDS: ACETAMINOPHEN TAB 500 MG TAB PO STA (12:06)
[2024-04-10] MEDS: SODIUM CHLORIDE 0.9% 1,000 ML IV STA (12:16)
[2024-04-10] MEDS: MORPHINE SULFATE 2 MG/ML SYRINGE IVP STA (12:17)
[2024-04-10 13:06] LABS: Basophils % (A) 0 %; Eosinophils # (A) 0.1 k/uL (0-0.7); Eosinophils % (A) 1 %; HCT 48.6 % (39.0-53.0); HGB 15.1 gm/dL (13.0-17.5); Hypochromasia Slight; Lymphocytes # (A) 0.8 k/uL (1.0-4.8); Lymphocytes % (A) 6 %; MCH 28.4 pg (25.0-35.0); MCV 91.4 fL (80.0-100.0); Monocytes # (A) 0.7 k/uL (0-1.0); Monocytes % (A) 5 %; Neutrophils # (A) 12.8 k/uL (1.3-7.7); Neutrophils % (A) 88 %; Platelet Count 218 k/uL (150-450); RBC 5.31 m/uL (4.30-5.90); RDW 14.7 % (11.5-15.5); WBC 14.6 k/uL (3.8-10.6)
[2024-04-10 13:15] LABS: ALT 13 U/L (4-49); AST 16 U/L (17-59); African American GFR (CKD) >90 (>60 ml/min/1.73 sqM); Albumin 3.1 g/dL (3.5-5.0); Alkaline Phosphatase 71 U/L (38-126); Anion Gap 4 mmol/L; Blood Urea Nitrogen 14 mg/dL (9-20); Calcium 8.1 mg/dL (8.4-10.2); Carbon Dioxide 26 mmol/L (22-30); Chloride 108 mmol/L (98-107); Glucose 107 mg/dL (74-99); Non-African American GFR(CKD) 85 (>60 ml/min/1.73 sqM); Potassium 4.3 mmol/L (3.5-5.1); Sodium 138 mmol/L (137-145); Total Protein 5.3 g/dL (6.3-8.2)
[2024-04-10] MEDS ORDERED: NITROFURANTOIN MONOHYD/M-CRYST 100 MG CAP PO STA (13:31)
[2024-04-10] MEDS: cefTRIAXone IN SWFI 1,000 MG/10 ML SYRINGE IVP STA (15:51)
[2024-04-10 17:48] VITALS: BP 122/73; PULSE 62; RESP 16; TEMP 97.9
== END 2024-04-10 16:03 | disposition home or self-care (01) ==
LOC: EC 08:37
DX: N39.0 Urinary tract infection, site not specified (principal); Z87.891 Personal history of nicotine dependence
CPT/HCPCS: 36415; 93005; 80053; 83605; 83735; 85025; 85610; 85730; 81001; 87086; 87636; 71046; 99284; 96374; 96375; 96361; J0696; J2270

== ENCOUNTER → 2024-04-17 | Outpatient (CLI) | payer MEDICARE ==
[2024-04-17 09:40] LABS: African American GFR (CKD) >90 (>60 ml/min/1.73 sqM); Blood Urea Nitrogen 15 mg/dL (9-20); Non-African American GFR(CKD) 88 (>60 ml/min/1.73 sqM)
--- NOTE | 2024-04-17 14:48 | CT ---
EXAMINATION TYPE: CT chest w con DATE OF EXAM: 04/17/2024 COMPARISON: 06/26/2023 HISTORY: Unspecified respiratory infection, hemoptysis CT DLP: 398.60 mGycm Automated exposure control for dose reduction was used. CONTRAST: CT scan of the chest is performed with IV Contrast, patient injected with 100 mL of Isovue 300. FINDINGS: LUNGS: Severe upper lobe emphysematous changes. The lungs are grossly clear, there is no concerning p arenchymal mass or nodule identified. There is no pleural effusion or pneumothorax seen. The trach eobronchial tree is patent. MEDIASTINUM: There are no greater than 1 cm hilar or mediastinal lymph nodes. No pericardial effusi on is seen. Thoracic aorta is of normal caliber. The heart is not enlarged. Small fixed hiatal herni a. UPPER ABDOMEN: No significant abnormality appreciated. OTHER: No additional significant abnormality is seen. IMPRESSION: 1.Severe upper lobe emphysematous changes. No focal infiltrate identified.
== END | disposition home or self-care (01) ==
LOC: RADCTMAIN 08:40
PROVIDERS: ATTEND Family Medicine
DX: J06.9 Acute upper respiratory infection, unspecified (principal); J43.9 Emphysema, unspecified
CPT/HCPCS: 82565; 84520; 71260; 36415; Q9967

== ENCOUNTER → 2024-05-11 | Outpatient (CLI) | payer MEDICARE ==
[2024-05-11 09:26] LABS: Partial Thromboplastin Time 24.9 sec (22.0-30.0); Prothrombin Time 10.5 sec (10.0-12.5)
[2024-05-11 15:51] LABS: BUN/Creat Ratio 18.11 Ratio (12.00-20.00); Blood Urea Nitrogen 16.3 mg/dL (9.0-27.0); Calcium 9.2 mg/dL (8.7-10.3); Carbon Dioxide 26.8 mmol/L (21.6-31.8); Chloride 107 mmol/L (96-109); Glucose 136 mg/dL (70-110); Sodium 144 mmol/L (135-145)
[2024-05-11 17:06] LABS: Basophils # (A) 0.06 X 10*3/uL (0.00-0.10); Basophils % (A) 0.7 %; Eosinophils # (A) 0.19 X 10*3/uL (0.04-0.35); Eosinophils % (A) 2.3 %; HCT 49.1 % (39.6-50.0); HGB 15.3 g/dL (13.0-17.0); Lymphocytes # (A) 1.83 X 10*3/uL (0.90-5.00); Lymphocytes % (A) 21.8 %; MCH 28.6 pg (27.0-32.0); MCHC 31.2 g/dL (32.0-37.0); MCV 91.8 FL (80.0-97.0); Mean Platelet Volume 9.7 FL (9.5-12.2); Monocytes # (A) 0.74 X 10*3/uL (0.20-1.00); Monocytes % (A) 8.8 %; NRBC Per 100 WBC 0 X 10*3/uL (0.00-0.01); Neutrophils # (A) 5.55 X 10*3/uL (1.80-7.70); Platelet Count 256 X 10*3/uL (140-440); RBC 5.35 X 10*6/uL (4.40-5.60); RDW 14.7 % (11.5-14.5)
== END | disposition home or self-care (01) ==
LOC: LABWHC1 08:15
PROVIDERS: ATTEND Urology
DX: Z01.812 Encounter for preprocedural laboratory examination (principal)
CPT/HCPCS: 36415; 80048; 85025; 85610; 85730; 87086

== ENCOUNTER → 2024-05-12 | Outpatient (CLI) | payer MEDICARE | END | disposition home or self-care (01) | LOC: LABPAT 08:54 | PROVIDERS: ATTEND Urology | DX: Z01.818 Encounter for other preprocedural examination (principal) | CPT/HCPCS: 93005 ==

== ENCOUNTER 2024-09-11 11:44 | Inpatient (IN) | payer MEDICARE ==
--- NOTE | 2024-09-11 12:46 | XR ---
EXAMINATION TYPE: XR chest 2V DATE OF EXAM: 09/11/2024 12:22 PM COMPARISON: 04/10/2024 CLINICAL INDICATION: Male, 74 years old with history of difficulty breathing, TECHNIQUE: XR chest 2V view(s) obtained. FINDINGS: The heart size is normal. The pulmonary vasculature is normal. Prior lobectomy. Left lower lung consolidation is present. Correlate for pneumonia. Underlying mass s hould be considered. Previous left lower lobe consolidation is present. Hyperinflation findings diaphragms is present, compatible COPD IMPRESSION: 1. Left lower lung field infiltrate. Infectious etiology or mass should be considered. Follow-up is r ecommended [facility] [place], , 09/11/2024 12:44 PM
--- NOTE | 2024-09-11 12:46 | ED ---
SOB HPI - General Chief Complaint: Shortness of Breath Stated Complaint: ANNETTA Time Seen by Provider: 09/11/24 11:47 Source: patient, EMS, RN notes reviewed Mode of arrival: EMS Limitations: no limitations - History of Present Illness Initial Comments: This is a 74-year-old male who presents to the emergency department for shortness of breath. Patient reports worsening shortness of breath over the last week. He had an x-ray done yesterday demonstrating concerns for pneumonia. However, there were also some other irregularities and he is waiting to get a CT scan of his chest for further evaluation. He has some associated chest pressure. Patient has COPD and has oxygen to wear at home as needed. States that he typically wears 4 L at a time when necessary and his oxygen goal is about 92%. He was given 2 DuoNeb breathing treatments by EMS en route, however he did not find them particularly beneficial. States that he had COVID last month as well. MD Complaint: shortness of breath - Related Data Home Medications Medication Instructions Recorded Confirmed Gabapentin 1,200 mg PO HS 04/09/16 09/11/24 ALPRAZolam [Xanax] 1 mg PO HS 03/25/20 09/11/24 Fluticasone/Umeclidin/Vilanter 1 puff INHALATION RT-DAILY 10/25/21 09/11/24 [Trelekaitlin Ellipta 100-62.5-25] Hydrocortisone [Cortef] 30 mg PO DAILY 04/19/22 09/11/24 Gabapentin 600 mg PO DAILY 09/17/22 09/11/24 Pantoprazole Sodium [Protonix] 40 mg PO BID 09/17/22 09/11/24 Apixaban [Eliquis] 5 mg PO DAILY 05/17/23 09/11/24 Budesonide/Formoterol Fumarate 2 puff INHALATION RT-BID PRN 05/17/23 09/11/24 [Symbicort 80-4.5 Mcg Inhaler] Clopidogrel Bisulfate [Clopidogrel] 75 mg PO DAILY 05/17/23 09/11/24 Empagliflozin [Jardiance] 10 mg PO DAILY 05/17/23 09/11/24 Ezetimibe [Zetia] 10 mg PO DAILY 05/17/23 09/11/24 Fluticasone Propion/Salmeterol 1 puff INHALATION RT-BID PRN 05/17/23 09/11/24 [Wixela 250-50 Inhub] metFORMIN HCL 1,000 mg PO BID 05/17/23 09/11/24 rOPINIRole HCL [Requip] 0.5 mg PO BID 05/17/23 09/11/24 traZODone HCL [Desyrel] 200 mg PO HS 05/17/23 09/11/24 Albuterol Inhaler [Ventolin Hfa 2 puff INHALATION RT-Q4H PRN 01/23/24 09/11/24 Inhaler] Atorvastatin [Lipitor] 40 mg PO HS 01/23/24 09/11/24 Famotidine 40 mg PO HS 01/23/24 09/11/24 HYDROcodone/APAP 7.5-325MG [[place] 1 tab PO TID 01/23/24 09/11/24 7.5-325] Isosorbide Mononitrate ER [Imdur] 30 mg PO DAILY 01/23/24 09/11/24 Metoprolol Tartrate [Lopressor] 12.5 mg PO DAILY 01/23/24 09/11/24 Albuterol Nebulized [Ventolin 2.5 mg INHALATION DIRECTED 09/11/24 09/11/24 Nebulized] Butalbital/Acetaminophen 1 cap PO DIRECTED 09/11/24 09/11/24 [Butalbital/Acetaminophen 50-300 MG] Cephalexin [Keflex] 500 mg PO DAILY 09/11/24 09/11/24 Suvorexant [Belsomra] 10 mg PO HS 09/11/24 09/11/24 Previous Rx's Medication Instructions Recorded Losartan [Cozaar] 50 mg PO DAILY #90 tab 09/18/22 Allergies Allergy/AdvReac Type Severity Reaction Status Date / Time nitrofurantoin Allergy Unknown Verified 09/11/24 15:09 [From Macrobid] Childhood Review of Systems ROS Statement: Those systems with pertinent positive or pertinent negative responses have been documented in the HPI. ROS Other: All systems not noted in ROS Statement are negative. Past Medical History Past Medical History: COPD, CVA/TIA, Diabetes Mellitus, GERD/Reflux, Hearing Disorder / Deafness, Hyperlipidemia, Myocardial Infarction (MD), Musculoskeletal Disorder, Osteoarthritis (OA), Pneumonia, Prostate Disorder, Pulmonary Embolus (PE), Respiratory Disorder Additional Past Medical History / Comment(s): PE/RLL pneumonia/acute hypoxic failure. Portal bollous emphysema. low back pain, bilat sciatica; RLS; migrain es, TIA , BPH, hearing aids, , diverticulosis. onset diabetes 08/11/19, multiple pneumothorax, O2 @2-4L [place] prn. Adrenal insufficiency Last Myocardial Infarction Date:: 12/30/2019 History of Any Multi-Drug Resistant Organisms: None Reported Past Surgical History: Heart Catheterization With Stent, Hernia Repair, Orthopedic Surgery, Prostate Surgery, Tonsillectomy Additional Past Surgical History / Comment(s): Septoplasty/ESSS, EGD, colonoscopy with benign polyp, R inguinal hernia, umbilical hernia, pain clinic procedures, atilio fundloplication. upper bilat lung lobes removed 05/2021, prostate surgery 3 weeks ago. Prostate biopsy 01/20/24. Past Anesthesia/Blood Transfusion Reactions: No Reported Reaction Additional Past Anesthesia/Blood Transfusion Reaction / Comment(s): no known family hx Date of Last Stent Placement:: Past Psychological History: No Psychological Hx Reported, PTSD Smoking Status: Former smoker Past Alcohol Use History: None Reported Past Drug Use History: None Reported - Past Family History Father History Unknown: Yes Family Medical History: No Reported History, Unable to Obtain Additional Family Medical History / Comment(s): Pt was adopted. Mother History Unknown: Yes Additional Family Medical History / Comment(s): Pt was adopted. Daughter(s) Additional Family Medical History / Comment(s): Children do not have any major medical problems. No history of blood clots. General Exam Limitations: no limitations General appearance: alert, in no apparent distress Head exam: Present: atraumatic, normocephalic, normal inspection Respiratory exam: Present: decreased breath sounds, prolonged expiratory Cardiovascular Exam: Present: normal rhythm, tachycardia Neurological exam: Present: alert, oriented X3, CN II-XII intact Psychiatric exam: Present: normal affect, normal mood Skin exam: Present: warm, dry, intact, normal color. Absent: rash Course Vital Signs 09/11/24 09/11/24 11:45 12:52 Temperature 98.2 F Pulse Rate 129 H 122 H Respiratory 18 19 Rate Blood Pressure 113/70 92/75 O2 Sat by Pulse 90 L 90 L Oximetry Medical Decision Making - Medical Decision Making This is a 74 year old male who presents to the emergency department for shortn ess of breath. Was pt. sent in by a medical professional or institution? @ -No Did you speak to anyone other than the patient for history? @ -No Did you review nursing and triage notes? @ -Yes, and I agree, it is accurate with regards to the patient's symptoms. Were old charts reviewed? @ -No Differential Diagnosis? @ -Differential Dyspnea: Coronary syndrome, arrhythmia, tamponade, asthma, COPD, pulmonary embolism, pneumonia, pneumothorax, pulmonary effusion, anaphylaxis, diabetic ketoacidosis, flailed chest, pulmonary contusion, diaphragmatic rupture, anemia, neuromuscular, this is not meant to be an all-inclusive list. EKG interpreted by me (3pts min.)? @ -EKG interpreted by me demonstrating the following: Sinus tachycardia. Ventricular rate 126 bpm, PA interval 168 ms, QRS duration 83 ms, QTc 382 ms. X-rays interpreted by me (1pt min.)? @ -Chest x-ray obtained. My interpretation identifies a left lower lobe consolidation. CT interpreted by me (1pt min.)? @ -CTA of the chest obtained. My interpretation identifies no evidence of a pulmonary embolus. U/S interpreted by me (1pt. min.)? @ -Not obtained What testing was considered but not performed? (CT, X-rays, U/S, labs)? Why? @ -None What meds were considered but not given? Why? @ -None Did you discuss the management of the patient with other professionals? @ -Yes, Dr. Rodas, who accepts the patient for admission. Did you reconcile home meds? @ -Yes Was smoking cessation discussed for >3mins.? @ -No Was critical care preformed (if so, how long)? @ -No Were there social determinants of health that impacted care today? How? (Homelessness, low income, unemployed, alcoholism, drug addiction, transportation, low edu. Level, literacy, decrease access to med. care, group home, rehab)? @ -No Was there de-escalation of care discussed even if they declined? (Discuss DNR or withdrawal of care, Hospice)? @ -No What co-morbidities impacted this encounter? (DM, HTN, Smoking, COPD, CAD, Cancer, CVA, Hep., AIDS, mental health diagnosis, sleep apnea, morbid obesity)? @ -COPD, DM Was patient admitted / discharged? @ -Admitted. Lab work demonstrates substantial leukocytosis of 25.4. D-dimer elevated at 1.09. Lactic acid 2.3 and CRP is 3.7. Patient's COVID test returned positive. However, states that he was positive last month and this may be residual. Chest x-ray demonstrates a left lower lung infiltrate and advised correlation for infectious etiology or mass. CTA of the chest obtained revealing no evidence of a pulmonary embolus. He does have consolidative and groundglass opacities in the left lower lobe and left upper lobe consistent with multifocal pneumonia. He was also having trouble maintaining an adequate oxygen saturation and would drop into the 80s on 5 to 6 L nasal cannula. However, after resting his oxygen came back up to 90 to 92%. Patient admitted to medicine for pneumonia and hypoxia. Will treat patient for bacterial pneumonia even though he is positive for COVID, as he was positive for COVID last month and this could be a residual positive test. Blood and sputum cultures obtained. Procalcitonin ordered with results pending at the time of admission. He was started on the pneumonia protocol with ceftriaxone and azithromycin. Consult placed for pulmonology and infectious disease. Case discussed with ED attending Dr. Mckeon. Undiagnosed new problem with uncertain prognosis? @ -None Drug Therapy requiring intensive monitoring for toxicity (Heparin, Nitro, Insulin, Cardizem)? @ -None Were any procedures done? @ -None Diagnosis/symptom? @ -Pneumonia, hypoxia Acute, or Chronic, or Acute on Chronic? @ -Acute Uncomplicated (without systemic symptoms) or Complicated (systemic symptoms)? @ -Complicated Side effects of treatment? @ -None Exacerbation, Progression, or Severe Exacerbation] @ -Not applicable Poses a threat to life or bodily function? @ -Yes, can lead to respiratory failure and - Lab Data Result diagrams: 09/11/24 12:36 09/11/24 12:36 Lab Results 09/11/24 09/11/24 09/11/24 Range/Units 12:36 12:36 12:36 WBC 25.4 H (3.8-10.6) k/uL RBC 5.73 (4.30-5.90) m/uL Hgb 15.4 (13.0-17.5) gm/dL Hct 48.4 (39.0-53.0) % MCV 84.5 (80.0-100.0) fL MCH 26.9 (25.0-35.0) pg MCHC 31.8 (31.0-37.0) g/dL RDW 15.4 (11.5-15.5) % Plt Count 268 (150-450) k/uL MPV 6.7 Neutrophils % 93 % Lymphocytes % 3 % Monocytes % 3 % Eosinophils % 1 % Basophils % 0 % Neutrophils # 23.5 H (1.3-7.7) k/uL Lymphocytes # 0.8 L (1.0-4.8) k/uL Monocytes # 0.8 (0-1.0) k/uL Eosinophils # 0.1 (0-0.7) k/uL Basophils # 0.0 (0-0.2) k/uL Hypochromasia Slight Sodium 140 (137-145) mmol/L Potassium 3.9 (3.5-5.1) mmol/L Chloride 109 H (98-107) mmol/L Carbon Dioxide 25 (22-30) mmol/L Anion Gap 6 mmol/L BUN 21 H (9-20) mg/dL Creatinine 0.96 (0.66-1.25) mg/dL Est GFR (CKD-EPI)AfAm 89 (>60 ml/min/1.73 sqM) Est GFR (CKD-EPI)NonAf 77 (>60 ml/min/1.73 sqM) Glucose 197 H (74-99) mg/dL Lactic Ac Sepsis Rflx Plasma Lactic Acid Leon 2.3 H* (0.7-2.0) mmol/L Calcium 8.4 (8.4-10.2) mg/dL Magnesium 1.9 (1.6-2.3) mg/dL Total Bilirubin 0.7 (0.2-1.3) mg/dL AST 24 (17-59) U/L ALT 19 (4-49) U/L Alkaline Phosphatase 87 (38-126) U/L Troponin I (0.000-0.034) ng/mL C-Reactive Protein (<1.0) mg/dL NT-Pro-B Natriuret Pep 91 pg/mL Total Protein 6.3 (6.3-8.2) g/dL Albumin 3.6 (3.5-5.0) g/dL Urine Color Urine Appearance (Clear) Urine pH (5.0-8.0) Ur Specific [place] (1.001-1.035) Urine Protein (Negative) Urine Glucose (UA) (Negative) Urine Ketones (Negative) Urine Blood (Negative) Urine Nitrite (Negative) Urine Bilirubin (Negative) Urine Urobilinogen (<2.0) mg/dL Ur Leukocyte Esterase (Negative) Influenza Type A (PCR) (Not Detectd) Influenza Type B (PCR) (Not Detectd) RSV (PCR) (Not Detectd) SARS-CoV-2 (PCR) (Not Detectd) 09/11/24 09/11/24 09/11/24 Range/Units 12:36 12:36 12:47 WBC (3.8-10.6) k/uL RBC (4.30-5.90) m/uL Hgb (13.0-17.5) gm/dL Hct (39.0-53.0) % MCV (80.0-100.0) fL MCH (25.0-35.0) pg MCHC (31.0-37.0) g/dL RDW (11.5-15.5) % Plt Count (150-450) k/uL MPV Neutrophils % % Lymphocytes % % Monocytes % % Eosinophils % % Basophils % % Neutrophils # (1.3-7.7) k/uL Lymphocytes # (1.0-4.8) k/uL Monocytes # (0-1.0) k/uL Eosinophils # (0-0.7) k/uL Basophils # (0-0.2) k/uL Hypochromasia Sodium (137-145) mmol/L Potassium (3.5-5.1) mmol/L Chloride (98-107) mmol/L Carbon Dioxide (22-30) mmol/L Anion Gap mmol/L BUN (9-20) mg/dL Creatinine (0.66-1.25) mg/dL Est GFR (CKD-EPI)AfAm (>60 ml/min/1.73 sqM) Est GFR (CKD-EPI)NonAf (>60 ml/min/1.73 sqM) Glucose (74-99) mg/dL Lactic Ac Sepsis Rflx Plasma Lactic Acid Leon (0.7-2.0) mmol/L Calcium (8.4-10.2) mg/dL Magnesium (1.6-2.3) mg/dL Total Bilirubin (0.2-1.3) mg/dL AST (17-59) U/L ALT (4-49) U/L Alkaline Phosphatase (38-126) U/L Troponin I <0.012 (0.000-0.034) ng/mL C-Reactive Protein 3.7 H (<1.0) mg/dL NT-Pro-B Natriuret Pep pg/mL Total Protein (6.3-8.2) g/dL Albumin (3.5-5.0) g/dL Urine Color Urine Appearance (Clear) Urine pH (5.0-8.0) Ur Specific [place] (1.001-1.035) Urine Protein (Negative) Urine Glucose (UA) (Negative) Urine Ketones (Negative) Urine Blood (Negative) Urine Nitrite (Negative) Urine Bilirubin (Negative) Urine Urobilinogen (<2.0) mg/dL Ur Leukocyte Esterase (Negative) Influenza Type A (PCR) Not Detected (Not Detectd) Influenza Type B (PCR) Not Detected (Not Detectd) RSV (PCR) Not Detected (Not Detectd) SARS-CoV-2 (PCR) Detected A (Not Detectd) 09/11/24 09/11/24 Range/Units 13:26 14:00 WBC (3.8-10.6) k/uL RBC (4.30-5.90) m/uL Hgb (13.0-17.5) gm/dL Hct (39.0-53.0) % MCV (80.0-100.0) fL MCH (25.0-35.0) pg MCHC (31.0-37.0) g/dL RDW (11.5-15.5) % Plt Count (150-450) k/uL MPV Neutrophils % % Lymphocytes % % Monocytes % % Eosinophils % % Basophils % % Neutrophils # (1.3-7.7) k/uL Lymphocytes # (1.0-4.8) k/uL Monocytes # (0-1.0) k/uL Eosinophils # (0-0.7) k/uL Basophils # (0-0.2) k/uL Hypochromasia Sodium (137-145) mmol/L Potassium (3.5-5.1) mmol/L Chloride (98-107) mmol/L Carbon Dioxide (22-30) mmol/L Anion Gap mmol/L BUN (9-20) mg/dL Creatinine (0.66-1.25) mg/dL Est GFR (CKD-EPI)AfAm (>60 ml/min/1.73 sqM) Est GFR (CKD-EPI)NonAf (>60 ml/min/1.73 sqM) Glucose (74-99) mg/dL Lactic Ac Sepsis Rflx Y Plasma Lactic Acid Leon (0.7-2.0) mmol/L Calcium (8.4-10.2) mg/dL Magnesium (1.6-2.3) mg/dL Total Bilirubin (0.2-1.3) mg/dL AST (17-59) U/L ALT (4-49) U/L Alkaline Phosphatase (38-126) U/L Troponin I (0.000-0.034) ng/mL C-Reactive Protein (<1.0) mg/dL NT-Pro-B Natriuret Pep pg/mL Total Protein (6.3-8.2) g/dL Albumin (3.5-5.0) g/dL Urine Color Yellow Urine Appearance Clear (Clear) Urine pH 5.5 (5.0-8.0) Ur Specific [place] 1.042 H (1.001-1.035) Urine Protein Trace H (Negative) Urine Glucose (UA) 4+ H (Negative) Urine Ketones Negative (Negative) Urine Blood Negative (Negative) Urine Nitrite Negative (Negative) Urine Bilirubin Negative (Negative) Urine Urobilinogen 3.0 (<2.0) mg/dL Ur Leukocyte Esterase Negative (Negative) Influenza Type A (PCR) (Not Detectd) Influenza Type B (PCR) (Not Detectd) RSV (PCR) (Not Detectd) SARS-CoV-2 (PCR) (Not Detectd) - Radiology Data Radiology results: report reviewed, image reviewed Disposition Clinical Impression: Pneumonia, Hypoxia, History of COVID-19 Disposition: ADMITTED IP TO THIS HOSP
[2024-09-11] MEDS ORDERED: PNEUMONIA PROTOCOL UTILIZED 1 EACH MISC PO PRN (12:47)
[2024-09-11] MEDS: KETOROLAC 15 MG/ML 1 ML VIAL IVP STA (12:53)
[2024-09-11] MEDS: SODIUM CHLORIDE 0.9% 1,000 ML IV STA ×2 (12:53→15:55)
[2024-09-11] MEDS: MORPHINE SULFATE 4 MG/ML SYRINGE IVP STA (12:53)
[2024-09-11 12:59] LABS: Basophils % (A) 0 %; Eosinophils # (A) 0.1 k/uL (0-0.7); Eosinophils % (A) 1 %; HCT 48.4 % (39.0-53.0); HGB 15.4 gm/dL (13.0-17.5); Hypochromasia Slight; Lymphocytes # (A) 0.8 k/uL (1.0-4.8); Lymphocytes % (A) 3 %; MCH 26.9 pg (25.0-35.0); MCHC 31.8 g/dL (31.0-37.0); MCV 84.5 fL (80.0-100.0); Mean Platelet Volume 6.7; Monocytes # (A) 0.8 k/uL (0-1.0); Monocytes % (A) 3 %; Neutrophils # (A) 23.5 k/uL (1.3-7.7); Neutrophils % (A) 93 %; Platelet Count 268 k/uL (150-450); RBC 5.73 m/uL (4.30-5.90); RDW 15.4 % (11.5-15.5); WBC 25.4 k/uL (3.8-10.6)
[2024-09-11] MEDS ORDERED: IPRATROPIUM-ALBUTEROL 3 ML NEB INHALATION PRN (13:08)
[2024-09-11 13:31] LABS: NT-Pro-B-Type Natriuretic Pept 91 pg/mL
[2024-09-11 13:36] LABS: ALT 19 U/L (4-49); AST 24 U/L (17-59); African American GFR (CKD) 89 (>60 ml/min/1.73 sqM); Albumin 3.6 g/dL (3.5-5.0); Alkaline Phosphatase 87 U/L (38-126); Anion Gap 6 mmol/L; Blood Urea Nitrogen 21 mg/dL (9-20); Calcium 8.4 mg/dL (8.4-10.2); Carbon Dioxide 25 mmol/L (22-30); Chloride 109 mmol/L (98-107); Glucose 197 mg/dL (74-99); Magnesium 1.9 mg/dL (1.6-2.3); Non-African American GFR(CKD) 77 (>60 ml/min/1.73 sqM); Potassium 3.9 mmol/L (3.5-5.1); Sodium 140 mmol/L (137-145); Total Bilirubin 0.7 mg/dL (0.2-1.3); Total Protein 6.3 g/dL (6.3-8.2)
[2024-09-11] MEDS ORDERED: ALBUTEROL NEBULIZED 2.5 MG/3 ML INHALATION PRN (13:38)
--- NOTE | 2024-09-11 14:35 | CT ---
EXAMINATION TYPE: CT chest angio for PE CT DLP: 436.4 mGycm, Automated exposure control for dose reduction was used. DATE OF EXAM: 09/11/2024 2:26 PM COMPARISON: CT chest 04/17/2024, 03/06/2023, CTA chest 09/18/2022, 01/11/2020 CLINICAL INDICATION:Male, 74 years old with history of ANNETTA, tachycardia; TECHNIQUE/CONTRAST: CTA scan of the thorax is performed with IV Contrast, patient injected with total 170 mL of Isovue 37 0, pulmonary embolism protocol. MIP images are created and reviewed. Injected twice due to injector malfunction. FINDINGS: Pulmonary Artery: There is no evidence for a filling defect within the pulmonary vasculature to sugge st acute pulmonary embolism. The pulmonary artery is of normal size. Lungs/Pleura: No pneumothorax or pleural effusion. Development of left lower lobe patchy groundglass and consolidative opacities. Additional patchy groundglass opacities within the left upper lobe. Mode rate centrilobular and paraseptal emphysematous changes with large post changes within the bilateral upper lobes. Airway: Large airways are patent. Heart: Heart is within normal limits for size.. Pericardial effusion. Vasculature: No evidence of aortic aneurysm. Mild atherosclerotic calcification of the aorta and its branches. Mediastinum: Few mildly prominent nonenlarged mediastinal lymph nodes. Enlarged left hilar lymph node s measuring up to 1.6 cm. Musculoskeletal: No acute osseous abnormalities Soft Tissues: Unremarkable. Lower neck: No significant findings. Upper Abdomen: Small to moderate-sized hiatal hernia. Fluid identified within the mid to distal esoph davonte. Stable left lateral hepatic lobe hypodense lesions in back to at least 2019 and considered cornel gn due to stability. IMPRESSION: 1. No evidence of pulmonary embolism. 2. Consolidative and groundglass opacities primarily within the left lower lobe small regions within the left upper lobe consistent with multifocal pneumonia. 3. Reactive left hilar lymphadenopathy likely secondary to #2. 4. Moderate to severe emphysematous changes with bullous emphysematous changes within the bilateral u pper lobes. 5. Small to moderate-sized hiatal hernia. Fluid identified within the mid to distal esophagus likely due to reflux. [facility], , 09/11/2024 2:33 PM
[2024-09-11 15:02] LABS: Appearance,Urine Clear (Clear); Bilirubin,Urine Negative (Negative); Blood,Urine Negative (Negative); Color,Urine Yellow; Glucose,Urine (UA) 4+ (Negative); Ketones,Urine Negative (Negative); Leukocyte Esterase,Urine Negative (Negative); Nitrite,Urine Negative (Negative); PH, Urine 5.5 (5.0-8.0); Protein,Urine Trace (Negative); Specific Gravity,Urine 1.042 (1.001-1.035)
[2024-09-11] MEDS ORDERED: ACETAMINOPHEN TAB 325 MG TAB PO PRN (15:26)
[2024-09-11] MEDS ORDERED: NALOXONE 0.4 MG/ML 1 ML VIAL IV PRN (15:26)
[2024-09-11] MEDS ORDERED: HYDROcodone/APAP 5-325MG 1 EACH TAB PO PRN (15:26)
[2024-09-11] MEDS: SODIUM CHLORIDE 0.9% 500 ML 500 ML IV STA (15:55)
[2024-09-11] MEDS: AZITHROMYCIN 500 MG in SODIUM CHLORIDE 0.9% 250 ML IVPB STA (15:55)
[2024-09-11] MEDS ORDERED: IPRATROPIUM-ALBUTEROL 3 ML NEB INHALATION SCH (16:00)
[2024-09-11] MEDS ORDERED: VANCOMYCIN IV PER PHARMACY 1 EACH MISC MISCELLANE PRN (16:03)
[2024-09-11] MEDS: SODIUM CHLORIDE 0.9% 1,000 ML IV SCH (16:27)
[2024-09-11 16:38] LABS: INR 0.9 (<1.2); Prothrombin Time 10.4 sec (10.0-12.5)
[2024-09-11] MEDS ORDERED: ACETAMINOPHEN PO SCH (17:00)
[2024-09-11] MEDS ORDERED: NON FORMULARY DRUG (Albuterol Inhaler 90 MCG Puff) INHALATION PRN (17:00)
[2024-09-11] MEDS ORDERED: [UNRECOGNIZED DRUG - OTHER] PO SCH (17:00)
[2024-09-11] MEDS ORDERED: BUTALBITAL PO SCH (17:00)
[2024-09-11] MEDS ORDERED: NON FORMULARY DRUG (Fluticasone Propion/Salmeterol [Wixela 250-50 Inhub] 1 EACH Blst.W.Dev INHALATION PRN (17:00)
[2024-09-11] MEDS ORDERED: SYMBICORT 80-4.5 MCG INHALER INHALATION PRN (17:00)
[2024-09-11] MEDS ORDERED: ALBUTEROL NEBULIZED 2.5 MG/3 ML INHALATION SCH (17:00)
[2024-09-11] MEDS: MORPHINE SULFATE 4 MG/ML SYRINGE IV PRN (17:03)
[2024-09-11] MEDS ORDERED: DEXTROSE 50% SYRINGE 50 ML IVP PRN ×2 (17:13)
[2024-09-11] MEDS ORDERED: ALBUTEROL HFA INHALER INHALATION PRN (17:21)
[2024-09-11] MEDS: ALBUTEROL NEBULIZED 2.5 MG/3 ML INHALATION SCH (17:23)
[2024-09-11 18:11] LABS: Glucose,Whole Blood 170 mg/dL (70-110)
[2024-09-11] MEDS: INSULIN ASPART (NovoLOG) 100 UNIT/ML VIAL SQ SCH (18:11)
[2024-09-11] MEDS: methylPREDNISolone SOD SUCCI 125 MG/2 ML VIAL IV SCH (18:17)
[2024-09-11] MEDS: ZINC SULFATE 220 MG CAP PO SCH (18:17)
[2024-09-11] MEDS: VANCOMYCIN 1,500 MG in SODIUM CHLORIDE 0.9% 500 ML 500 ML IVPB SCH (18:18)
[2024-09-11] MEDS: ONDANSETRON 4 MG/2 ML VIAL IVP PRN (18:36)
[2024-09-11 19:55] LABS: Glucose,Whole Blood 166 mg/dL (70-110)
[2024-09-11] MEDS: TIOTROPIUM 2.5 MCG INHALER INHALATION SCH (20:05)
[2024-09-11] MEDS: FAMOTIDINE 20 MG TAB PO SCH (20:39)
[2024-09-11] MEDS: GABAPENTIN 400 MG CAP PO SCH (20:39)
[2024-09-11] MEDS: ALPRAZolam 1 MG TAB PO SCH (20:39)
[2024-09-11] MEDS: ATORVASTATIN 40 MG TAB PO SCH (20:39)
[2024-09-11] MEDS: metFORMIN 500 MG TAB PO SCH (20:40)
[2024-09-11] MEDS: PROCHLORPERAZINE INJ 10 MG/2 ML VIAL IVP PRN (20:40)
[2024-09-11] MEDS: traZODone HCL 100 MG TAB PO SCH (20:40)
[2024-09-11] MEDS: SUCRALFATE 1 GM TAB PO SCH (20:40)
[2024-09-11] MEDS: KETOROLAC 15 MG/ML 1 ML VIAL IVP PRN (20:40)
[2024-09-11] MEDS: PANTOPRAZOLE 40 MG/10 ML VIAL IVP SCH (20:41)
[2024-09-11] MEDS: ALBUTEROL HFA INHALER INHALATION SCH (20:48)
[2024-09-11] MEDS ORDERED: PANTOPRAZOLE 40 MG TABLET PO SCH (21:00)
[2024-09-11] MEDS: BELSOMRA 10 MG PO SCH (21:09)
[2024-09-11] MEDS: HYDROcodone/APAP 7.5-325MG 1 EACH TAB PO SCH (22:05)
[2024-09-11] MEDS: CEFEPIME 2 GM in SODIUM CHLORIDE 0.9% 100 ML IVPB SCH (23:36)
--- NOTE | 2024-09-12 03:24 | HP ---
HISTORY AND PHYSICAL CHIEF COMPLAINTS: Shortness of breath and cough. HISTORY OF PRESENT ILLNESS: This 74-year-old gentleman with a past medical history of multiple medical problems including COPD, hyperlipidemia, pulmonary embolism, being followed by Dr. Ospina as an outpatient, complaining of shortness of breath. The patient developed shortness of breath worsening over the past 1 week. The patient had an x-ray done, which showed evidence of pneumonia. Currently, the patient had features of left lobe pneumonia. The patient also was positive for COVID-19 last month. COVID-19 is still positive. The chest x-ray which I reviewed yesterday confirmed pneumonia and chronic scarring changes on the left side with multiple bullous lesions. The patient is being admitted for further evaluation and treatment. There is no history of fever, rigors, or chills at this time. PAST MEDICAL HISTORY: Reviewed include COPD, CVA, TIA, history of pulmonary embolism, and diabetes mellitus. Rest of the history is noted. HOME MEDICATIONS: Noted include Desyrel. Dose and rest of medications noted. ALLERGIES: Nitrofurantoin. FAMILY HISTORY: The patient is adopted. SOCIAL HISTORY: Previous history of smoker. REVIEW OF SYSTEMS: Fourteen-point review of systems is negative except as mentioned earlier. PHYSICAL EXAMINATION: VITAL SIGNS: Pulse is 122, blood pressure 90/75, respirations 19. HEENT: Conjunctivae normal. NECK: No JVD. CARDIOVASCULAR: S1, S2. RESPIRATIONS: Breath sounds diminished at the bases. A few scattered rhonchi. ABDOMEN: Soft, nontender. NERVOUS SYSTEM: Nonfocal. LABORATORY DATA: WBC 25.4. ASSESSMENT: 1. Acute left lower lobe pneumonia with extensive left-sided pneumonia with possible sepsis present on admission. 2. Elevated white blood count. 3. Elevated plasma lactic acid. 4. COVID-19 recently. 5. Chronic obstructive pulmonary disease. 6. Gastroesophageal reflux disease. 7. Hyperlipidemia. 8. History of pulmonary embolism. 9. History of coronary artery disease with stent. RECOMMENDATIONS: This 74-year-old gentleman presented with multiple complex medical issues. At this time, I recommend to continue current medications, continue symptomatic treatment, current management, and continue with bronchodilators, continue with empiric antibiotics. Pulmonary and ID consultations. The patient had COVID for several weeks. The patient is probably not a candidate for remdesivir; however, we will continue to monitor. Resume home medications once they are confirmed. Further recommendations to follow. MMODL / IJN: [id number] /
[2024-09-12] MEDS: NITROGLYCERIN SL TABS 0.4 MG TAB SUBLINGUAL STA (04:30)
--- NOTE | 2024-09-12 04:48 | P.CONS ---
History of Present Illness - Reason for Consult Consult date: 09/11/24 Pneumonia, sepsis Requesting physician: Amarilis Adams - Chief Complaint Shortness of breath and cough x 5 days - History of Present Illness Patient is a 74-year-old male with a past medical history significant for COPD, CVA/TIA, Diabetes Mellitus, GERD/Reflux, Hearing Disorder / Deafness, Hyperlipidemia, Myocardial Infarction (NV), Musculoskeletal Disorder, Osteoarthritis (OA), Pneumonia, Prostate Disorder, Pulmonary Embolus (PE), Respiratory Disorder and recently did have a COVID-19 about 6 weeks ago presenting to the hospital for evaluation of increasing shortness of breath and cough that has been getting worse over the last 1 week patient denies having any chest pain he did have a cough that is moderate intensity and is bringing up some purulent sputum no hemoptysis patient denies having any nausea no vomiting no choking on the food no abdominal pain or any diarrhea with the symptoms the patient has been evaluated on presentation the hospital patient was afebrile, patient was not tachycardic or hypotensive he was hypoxic with O2 sats of 90% on room air on initial presentation to the hospital patient did have white count of 25.4 with a left shift creatinine 0.96 liver enzymes has been normal urine has been negative he tested positive for COVID-19 he did have a CT angiogram of the chest that was negative for PE however did shows consolidation within the left lower lobe and small lesion within the left upper lobe consistent with a multi focal pneumonia patient was started on Rocephin and Zithromax infectious disease was consulted for further management of antibiotic therapy Review of Systems Positive point and negatives has been mentioned in the HPI, complete review of systems was performed and all other systems are negative Past Medical History Past Medical History: COPD, CVA/TIA, Diabetes Mellitus, GERD/Reflux, Hearing Disorder / Deafness, Hyperlipidemia, Myocardial Infarction (NV), Musculoskeletal Disorder, Osteoarthritis (OA), Pneumonia, Prostate Disorder, Pulmonary Embolus (PE), Respiratory Disorder Additional Past Medical History / Comment(s): PE/RLL pneumonia/acute hypoxic failure. Portal bollous emphysema. low back pain, bilat sciatica; RLS; migraines, TIA , BPH, hearing aids, , diverticulosis. onset diabetes 08/11/19, multiple pneumothorax, O2 @2-4L [place] prn. Adrenal insufficiency Last Myocardial Infarction Date:: 12/30/2019 History of Any Multi-Drug Resistant Organisms: None Reported Past Surgical History: Heart Catheterization With Stent, Hernia Repair, Orthopedic Surgery, Prostate Surgery, Tonsillectomy Additional Past Surgical History / Comment(s): Septoplasty/ESSS, EGD, colonoscopy with benign polyp, R inguinal hernia, umbilical hernia, pain clinic procedures, atilio fundloplication. upper bilat lung lobes removed 05/2021, prostate surgery 3 weeks ago. Prostate biopsy 01/20/24. Prostate laser surgery Past Anesthesia/Blood Transfusion Reactions: No Reported Reaction Additional Past Anesthesia/Blood Transfusion Reaction / Comm: no known family hx Date of Last Stent Placement:: Past Psychological History: No Psychological Hx Reported, PTSD Additional Psychological History / Comment(s): Pt resides with his spouse. He uses no assistive device. He drives. He has a nebulizer and home oxygen as needed. Smoking Status: Former smoker Past Alcohol Use History: None Reported Additional Past Alcohol Use History / Comment(s): Pt started smoking in 1967, 1-1-1/2 packs per day, quit in 1999 Past Drug Use History: None Reported - Past Family History Father History Unknown: Yes Family Medical History: No Reported History, Unable to Obtain Additional Family Medical History / Comment(s): Pt was adopted. Mother History Unknown: Yes Additional Family Medical History / Comment(s): Pt was adopted. Daughter(s) Additional Family Medical History / Comment(s): Children do not have any major medical problems. No history of blood clots. Medications and Allergies Home Medications Medication Instructions Recorded Confirmed Type Gabapentin 1,200 mg PO HS 04/09/16 09/11/24 History ALPRAZolam [Xanax] 1 mg PO HS 03/25/20 09/11/24 History Fluticasone/Umeclidin/Vilanter 1 puff INHALATION RT-DAILY 10/25/21 09/11/24 History [Trelegy Ellipta 100-62.5-25] Hydrocortisone [Cortef] 30 mg PO DAILY 04/19/22 09/11/24 History Gabapentin 600 mg PO DAILY 09/17/22 09/11/24 History Pantoprazole Sodium [Protonix] 40 mg PO BID 09/17/22 09/11/24 History Losartan [Cozaar] 50 mg PO DAILY #90 tab 09/18/22 09/11/24 Rx Apixaban [Eliquis] 5 mg PO DAILY 05/17/23 09/11/24 History Budesonide/Formoterol Fumarate 2 puff INHALATION RT-BID PRN 05/17/23 09/11/24 History [Symbicort 80-4.5 Mcg Inhaler] Clopidogrel Bisulfate [Clopidogrel] 75 mg PO DAILY 05/17/23 09/11/24 History Empagliflozin [Jardiance] 10 mg PO DAILY 05/17/23 09/11/24 History Ezetimibe [Zetia] 10 mg PO DAILY 05/17/23 09/11/24 History Fluticasone Propion/Salmeterol 1 puff INHALATION RT-BID PRN 05/17/23 09/11/24 History [Wixela 250-50 Inhub] metFORMIN HCL 1,000 mg PO BID 05/17/23 09/11/24 History rOPINIRole HCL [Requip] 0.5 mg PO BID 05/17/23 09/11/24 History traZODone HCL [Desyrel] 200 mg PO HS 05/17/23 09/11/24 History Albuterol Inhaler [Ventolin Hfa 2 puff INHALATION RT-Q4H PRN 01/23/24 09/11/24 History Inhaler] Atorvastatin [Lipitor] 40 mg PO HS 01/23/24 09/11/24 History Famotidine 40 mg PO HS 01/23/24 09/11/24 History HYDROcodone/APAP 7.5-325MG [[place] 1 tab PO TID 01/23/24 09/11/24 History 7.5-325] Isosorbide Mononitrate ER [Imdur] 30 mg PO DAILY 01/23/24 09/11/24 History Metoprolol Tartrate [Lopressor] 12.5 mg PO DAILY 01/23/24 09/11/24 History Albuterol Nebulized [Ventolin 2.5 mg INHALATION DIRECTED 09/11/24 09/11/24 History Nebulized] Butalbital/Acetaminophen 1 cap PO DIRECTED 09/11/24 09/11/24 History [Butalbital/Acetaminophen 50-300 MG] Cephalexin [Keflex] 500 mg PO DAILY 09/11/24 09/11/24 History Suvorexant [Belsomra] 10 mg PO HS 09/11/24 09/11/24 History Allergies Allergy/AdvReac Type Severity Reaction Status Date / Time nitrofurantoin Allergy Unknown Verified 09/11/24 15:09 [From Macrobid] Childhood Physical Exam Vitals: Vital Signs Temp Pulse Pulse Resp BP BP Pulse Ox 09/12/24 04:31 82 16 148/82 95 09/12/24 04:00 90 16 179/107 95 09/12/24 00:00 97.7 F 77 19 123/84 93 L 09/11/24 20:00 98.1 F 82 19 152/89 92 L 09/11/24 18:26 97.5 F L 89 20 115/77 91 L 09/11/24 12:52 122 H 19 92/75 90 L 09/11/24 11:45 98.2 F 129 H 18 113/70 90 L Intake and Output 09/11/24 09/11/24 09/12/24 14:59 22:59 06:59 Intake Total 240 Balance 240 Intake: Oral 240 Other: Voiding Method Toilet Toilet Diaper Diaper # Voids 2 Weight 84.368 kg 84.368 kg GENERAL DESCRIPTION: Elderly male lying in bed, no distress. No tachypnea or accessory muscle of respiration use. HEENT: Shows Pallor , no scleral icterus. Oral mucous membrane is dry. No pharyngeal erythema or thrush NECK: Trachea central, no thyromegaly. LUNGS: Unlabored breathing. Coarse breath sounds HEART: S1, S2, regular rate and rhythm. No loud murmur ABDOMEN: Soft, no tenderness , guarding or rigidity, no organomegaly EXTREMITIES: No edema of feet. SKIN: No rash, no masses palpable. NEUROLOGICAL: The patient is awake, alert, oriented x3, mood and affect normal. Results CBC & Chem 7: 09/11/24 12:36 09/11/24 12:36 Labs: Abnormal Lab Results - Last 24 Hours (Table) 09/11/24 09/11/24 09/11/24 Range/Units 12:36 12:36 12:36 WBC 25.4 H (3.8-10.6) k/uL Neutrophils # 23.5 H (1.3-7.7) k/uL Lymphocytes # 0.8 L (1.0-4.8) k/uL D-Dimer (<0.60) mg/L FEU Chloride 109 H (98-107) mmol/L BUN 21 H (9-20) mg/dL Glucose 197 H (74-99) mg/dL POC Glucose (mg/dL) (70-110) mg/dL Plasma Lactic Acid Leon 2.3 H* (0.7-2.0) mmol/L C-Reactive Protein (<1.0) mg/dL Procalcitonin (0.02-0.50) ng/mL Ur Specific [place] (1.001-1.035) Urine Protein (Negative) Urine Glucose (UA) (Negative) SARS-CoV-2 (PCR) (Not Detectd) 09/11/24 09/11/24 09/11/24 Range/Units 12:36 12:47 12:47 WBC (3.8-10.6) k/uL Neutrophils # (1.3-7.7) k/uL Lymphocytes # (1.0-4.8) k/uL D-Dimer (<0.60) mg/L FEU Chloride (98-107) mmol/L BUN (9-20) mg/dL Glucose (74-99) mg/dL POC Glucose (mg/dL) (70-110) mg/dL Plasma Lactic Acid Leon (0.7-2.0) mmol/L C-Reactive Protein 3.7 H (<1.0) mg/dL Procalcitonin 0.53 H (0.02-0.50) ng/mL Ur Specific [place] (1.001-1.035) Urine Protein (Negative) Urine Glucose (UA) (Negative) SARS-CoV-2 (PCR) Detected A (Not Detectd) 09/11/24 09/11/24 09/11/24 Range/Units 14:00 15:21 16:06 WBC (3.8-10.6) k/uL Neutrophils # (1.3-7.7) k/uL Lymphocytes # (1.0-4.8) k/uL D-Dimer 1.09 H (<0.60) mg/L FEU Chloride (98-107) mmol/L BUN (9-20) mg/dL Glucose (74-99) mg/dL POC Glucose (mg/dL) (70-110) mg/dL Plasma Lactic Acid Leon 2.2 H* (0.7-2.0) mmol/L C-Reactive Protein (<1.0) mg/dL Procalcitonin (0.02-0.50) ng/mL Ur Specific [place] 1.042 H (1.001-1.035) Urine Protein Trace H (Negative) Urine Glucose (UA) 4+ H (Negative) SARS-CoV-2 (PCR) (Not Detectd) 09/11/24 09/11/24 Range/Units 18:10 19:53 WBC (3.8-10.6) k/uL Neutrophils # (1.3-7.7) k/uL Lymphocytes # (1.0-4.8) k/uL D-Dimer (<0.60) mg/L FEU Chloride (98-107) mmol/L BUN (9-20) mg/dL Glucose (74-99) mg/dL POC Glucose (mg/dL) 170 H 166 H (70-110) mg/dL Plasma Lactic Acid Leon (0.7-2.0) mmol/L C-Reactive Protein (<1.0) mg/dL Procalcitonin (0.02-0.50) ng/mL Ur Specific [place] (1.001-1.035) Urine Protein (Negative) Urine Glucose (UA) (Negative) SARS-CoV-2 (PCR) (Not Detectd) Microbiology - Last 24 Hours (Table) 09/11/24 17:50 Gram Stain - Preliminary Sputum Assessment and Plan (1) Leukocytosis Current Visit: Yes Status: Acute Code(s): D72.829 - ELEVATED WHITE BLOOD CELL COUNT, UNSPECIFIED SNOMED Code(s): 484569124 (2) History of COVID-19 Current Visit: Yes Status: Acute Code(s): Z86.16 - PERSONAL HISTORY OF COVID-19 SNOMED Code(s): 898654544234231173 (3) Pneumonia Current Visit: Yes Status: Acute Code(s): J18.9 - PNEUMONIA, UNSPECIFIED ORGANISM SNOMED Code(s): 465482266 Plan: 1patient presented to hospital with increasing shortness of breath cough sputum production in this patient who did have evidence of multifocal pneumonia on the left lung patient did have a COVID-19 about 6 weeks ago and concerning for possible resistant gram-positive/gram-negative infection post COVID-19 pneumonia. 2obtain sputum for Gram stain and culture check procalcitonin level. 3discontinue Rocephin and Zithromax. 4start the patient on cefepime 2 g every 8 hours and vancomycin pharmacy to dose while waiting for the culture to finalize. We will follow on clinical condition and cultures to further adjust medication if needed Thank you for this consultation we will follow the patient along with you Dictation was produced using [employer] dictation software. please excuse any grammatical, word or spelling errors. Time with Patient: Greater than 30
[2024-09-12 04:53] LABS: Basophils % (A) 0 %; Eosinophils % (A) 0 %; HCT 44.7 % (39.0-53.0); HGB 13.7 gm/dL (13.0-17.5); Hypochromasia Slight; Lymphocytes # (A) 0.4 k/uL (1.0-4.8); Lymphocytes % (A) 2 %; MCH 26.6 pg (25.0-35.0); MCHC 30.8 g/dL (31.0-37.0); MCV 86.5 fL (80.0-100.0); Monocytes # (A) 0.2 k/uL (0-1.0); Monocytes % (A) 2 %; Neutrophils # (A) 14.8 k/uL (1.3-7.7); Neutrophils % (A) 96 %; Platelet Count 208 k/uL (150-450); RBC 5.16 m/uL (4.30-5.90); RDW 15.7 % (11.5-15.5); WBC 15.5 k/uL (3.8-10.6)
[2024-09-12 05:07] LABS: African American GFR (CKD) >90 (>60 ml/min/1.73 sqM); Anion Gap 4 mmol/L; Blood Urea Nitrogen 23 mg/dL (9-20); Calcium 8.3 mg/dL (8.4-10.2); Carbon Dioxide 20 mmol/L (22-30); Chloride 114 mmol/L (98-107); Glucose 191 mg/dL (74-99); Non-African American GFR(CKD) >90 (>60 ml/min/1.73 sqM); Potassium 4.4 mmol/L (3.5-5.1); Sodium 138 mmol/L (137-145)
[2024-09-12 05:53] LABS: Glucose,Whole Blood 165 mg/dL (70-110)
[2024-09-12] MEDS: LOSARTAN 50 MG TAB PO SCH (08:41)
[2024-09-12] MEDS: ISOSORBIDE MONONITRATE ER 60 MG TAB.ER.24H PO SCH (08:41)
[2024-09-12] MEDS: METOPROLOL TARTRATE 25 MG TAB PO SCH (08:41)
[2024-09-12] MEDS: CLOPIDOGREL 75 MG TAB PO SCH (08:41)
[2024-09-12] MEDS: DAPAGLIFLOZIN PROPANEDIOL 5 MG TABLET PO SCH (08:41)
[2024-09-12] MEDS: GABAPENTIN 300 MG CAP PO SCH (08:41)
[2024-09-12] MEDS: EZETIMIBE 10 MG TAB PO SCH (08:42)
[2024-09-12] MEDS: APIXABAN 5 MG TAB PO SCH (08:42)
[2024-09-12] MEDS: AZITHROMYCIN 500 MG TAB PO SCH (08:42)
[2024-09-12] MEDS ORDERED: ISOSORBIDE MONONITRATE ER 30 MG TAB.ER.24H PO SCH (09:00)
[2024-09-12] MEDS ORDERED: PANTOPRAZOLE 40 MG/10 ML VIAL IV SCH (09:00)
[2024-09-12] MEDS ORDERED: METOPROLOL TARTRATE 12.5 MG TAB PO SCH (09:00)
[2024-09-12] MEDS ORDERED: HYDROCORTISONE 10 MG TAB PO SCH (09:00)
--- NOTE | 2024-09-12 11:11 | P.CRDCN ---
History of Present Illness History of present illness: HISTORY OF PRESENT ILLNESS: This is a 74-year-old male with a past medical history significant for coronary artery disease with previous stenting, known OPTOMETRY DOCTOR of RCA, hypertension, hyperlip idemia, diabetes, lung resection, COPD, prostate surgery, and pulmonary embolism on Eliquis. Patient follows in the office with Dr. Ochoa. We have been asked to see the patient in consultation for chest pain. Patient examined at the bedside. Patient presented to the hospital with a chief complaint of shortness of breath. Patient states he has been feeling short of breath since Saturday. He reports that he had a cough with sputum production but now just has a dry cough. He reports a fever at home of 100.6 F. Patient was found to be positive for COVID. He states that he also had COVID about 6 weeks ago. He states that his has non-Hodgkin's lymphoma so they do not leave the house very often and he does not believe that this is a reoccurrence of COVID and has not been around anybody with COVID. Patient states yesterday he had an episode of chest pain and again this morning. He states the pain is worse with deep inspiration. He also states the pain is worse with chest wall palpation. He states the pain is better if he lays on his left side. Patient saw Dr. Ochoa in June and his Imdur was increased from 30 mg to 60 mg. The patient states he has been taking 60 mg on a daily basis. He states he is only had 2 episodes of chest discomfort since his Imdur was increased. The patient was found to have pneumonia and was started on IV antibiotics. DIAGNOSTICS: - EKG reveals sinus mechanism with no signs of acute ischemia - Chest xray left lower lung infiltrate -Chest CTA: No evidence for pulmonary embolism. Consolidative and groundglass opacities primarily within the left lower lobe small regions within the left upper lobe consistent with multifocal pneumonia, reactive left hilar lymphadenopathy, moderate to severe emphysematous changes with bullous changes w ithin the bilateral upper lobes, small to moderate-sized hiatal hernia. - Laboratory data: WBC 15.5. Hemoglobin 13.7. Platelet count 208. Sodium 138. Potassium 4.4. BUN 23. Creatinine 0.62. Hemoglobin A1c 7.4. Troponin negative x 2. - Current home cardiac medications include metoprolol tartrate 12.5 mg daily, losartan 50 mg daily, Imdur 30 mg daily, Zetia 10 mg daily, Jardiance 10 mg daily, Plavix 75 mg daily, Lipitor 40 mg daily, Eliquis 5 mg daily - Most recent echocardiogram obtained in September 2023 revealed ejection fraction 55 to 60%, trace MR -Patient underwent Lexiscan stress test in March 2024 revealing ejection fraction 45%, small area of partial reversibility suggestive of valerie-infarct ischemia with inferior basal hypokinesia with known RCA occlusion. No change from prev ious. - Cardiac catheterization history: August 2022 revealing left main with no significant disease, dominant RCA OPTOMETRY DOCTOR, 95% mid LAD lesion, circumflex with patent stent, patient underwent PCI of the LAD. REVIEW OF SYSTEMS: At the time of my exam: CONSTITUTIONAL: Denies fever or chills. HEENT: Denies blurred vision, vision changes, or eye pain. Denies hemoptysis CARDIOVASCULAR: Denies chest pain. Denies orthopnea. Denies PND. Denies palpitations RESPIRATORY: Denies shortness of breath. GASTROINTESTINAL: Denies abdominal pain. Denies nausea or vomiting. HEMATOLOGIC: Denies bleeding disorders. GENITOURINARY: Denies any blood in urine. SKIN: Denies pruitis. Denies rash. PHYSICAL EXAM: VITAL SIGNS: Reviewed. GENERAL: Well-developed in no acute distress. HEENT: Head is normocephalic. Pupils are equal, round. Sclerae anicteric. Mucous membranes of the mouth are moist. Neck supple. No JVD or thyromegaly LUNGS: Respirations even and unlabored. Lungs with bilateral rhonchi and a few s cattered crackles HEART: Regular rate and rhythm. S1 and S2 heard. ABDOMEN: Soft. Nondistended. Nontender. EXTREMITIES: Normal range of motion. No clubbing or cyanosis. Peripheral pulses intact. No lower extremity edema NEUROLOGIC: Awake and alert. Oriented x 3. ASSESSMENT: Shortness of breath Multifocal pneumonia of the left lung Acute hypoxic respiratory failure requiring supplemental oxygen + Covid 19, may be still testing positive as patient had Covid 6 weeks ago Chest pain, atypical, troponin negative x 2, reproducible upon examination, appears pleuritic Coronary artery disease with previous stenting, most recently to mid LAD, 08/2022 Known OPTOMETRY DOCTOR of RCA Hypertension Hyperlipidemia Diabetes History of COPD on home oxygen as needed History of pulmonary embolism, on Eliquis History of lung resection at [facility] History of prostate surgery at [facility], May 2024 PLAN: An acute coronary event has been ruled out. Patient's chest pain is reproducible upon examination and appears pleuritic likely secondary to his pneumonia. Obtain 1 additional troponin Increase Imdur to 60 mg daily which is patient's home dose Increase metoprolol to tartrate to 25 mg twice a day Continue Eliquis 5 mg twice a day Continue additional cardiac medications Obtain 2D echo to assess cardiac structure and function Further recommendations pending patient course Patient to follow-up postdischarge with Dr. Ochoa Nurse practitioner note has been reviewed by physician. Signing provider agrees with the documented findings, assessment, and plan of care documented by HEAD KNITTING MACHINE FIXER as a scribe. Past Medical History Past Medical History: COPD, CVA/TIA, Diabetes Mellitus, GERD/Reflux, Hearing Disorder / Deafness, Hyperlipidemia, Myocardial Infarction (ME), Musculoskeletal Disorder, Osteoarthritis (OA), Pneumonia, Prostate Disorder, Pulmonary Embolus (PE), Respiratory Disorder Additional Past Medical History / Comment(s): PE/RLL pneumonia/acute hypoxic failure. Portal bollous emphysema. low back pain, bilat sciatica; RLS; migraines, TIA , BPH, hearing aids, , diverticulosis. onset diabetes 08/11/19, multiple pneumothorax, O2 @2-4L [place] prn. Adrenal insufficiency Last Myocardial Infarction Date:: 12/30/2019 History of Any Multi-Drug Resistant Organisms: None Reported Past Surgical History: Heart Catheterization With Stent, Hernia Repair, Orthopedic Surgery, Prostate Surgery, Tonsillectomy Additional Past Surgical History / Comment(s): Septoplasty/ESSS, EGD, colonoscopy with benign polyp, R inguinal hernia, umbilical hernia, pain clinic procedures, atilio fundloplication. upper bilat lung lobes removed 05/2021, prostate surgery 3 weeks ago. Prostate biopsy 01/20/24. Prostate laser surgery Past Anesthesia/Blood Transfusion Reactions: No Reported Reaction Additional Past Anesthesia/Blood Transfusion Reaction / Comment(s): no known family hx Date of Last Stent Placement:: Past Psychological History: No Psychological Hx Reported, PTSD Additional Psychological History / Comment(s): Pt resides with his spouse. He uses no assistive device. He drives. He has a nebulizer and home oxygen as needed. Smoking Status: Former smoker Past Alcohol Use History: None Reported Additional Past Alcohol Use History / Comment(s): Pt started smoking in 1967, 1-1-1/2 packs per day, quit in 1999 Past Drug Use History: None Reported - Past Family History Father History Unknown: Yes Family Medical History: No Reported History, Unable to Obtain Additional Family Medical History / Comment(s): Pt was adopted. Mother History Unknown: Yes Additional Family Medical History / Comment(s): Pt was adopted. Daughter(s) Additional Family Medical History / Comment(s): Children do not have any major medical problems. No history of blood clots. Medications and Allergies Home Medications Medication Instructions Recorded Confirmed Type Gabapentin 1,200 mg PO HS 04/09/16 09/11/24 History ALPRAZolam [Xanax] 1 mg PO HS 03/25/20 09/11/24 History Fluticasone/Umeclidin/Vilanter 1 puff INHALATION RT-DAILY 10/25/21 09/11/24 History [Trelegy Ellipta 100-62.5-25] Hydrocortisone [Cortef] 30 mg PO DAILY 04/19/22 09/11/24 History Gabapentin 600 mg PO DAILY 09/17/22 09/11/24 History Pantoprazole Sodium [Protonix] 40 mg PO BID 09/17/22 09/11/24 History Losartan [Cozaar] 50 mg PO DAILY #90 tab 09/18/22 09/11/24 Rx Apixaban [Eliquis] 5 mg PO DAILY 05/17/23 09/11/24 History Budesonide/Formoterol Fumarate 2 puff INHALATION RT-BID PRN 05/17/23 09/11/24 History [Symbicort 80-4.5 Mcg Inhaler] Clopidogrel Bisulfate [Clopidogrel] 75 mg PO DAILY 05/17/23 09/11/24 History Empagliflozin [Jardiance] 10 mg PO DAILY 05/17/23 09/11/24 History Ezetimibe [Zetia] 10 mg PO DAILY 05/17/23 09/11/24 History Fluticasone Propion/Salmeterol 1 puff INHALATION RT-BID PRN 05/17/23 09/11/24 History [Wixela 250-50 Inhub] metFORMIN HCL 1,000 mg PO BID 05/17/23 09/11/24 History rOPINIRole HCL [Requip] 0.5 mg PO BID 05/17/23 09/11/24 History traZODone HCL [Desyrel] 200 mg PO HS 05/17/23 09/11/24 History Albuterol Inhaler [Ventolin Hfa 2 puff INHALATION RT-Q4H PRN 01/23/24 09/11/24 History Inhaler] Atorvastatin [Lipitor] 40 mg PO HS 01/23/24 09/11/24 History Famotidine 40 mg PO HS 01/23/24 09/11/24 History HYDROcodone/APAP 7.5-325MG [[place] 1 tab PO TID 01/23/24 09/11/24 History 7.5-325] Isosorbide Mononitrate ER [Imdur] 30 mg PO DAILY 01/23/24 09/11/24 History Metoprolol Tartrate [Lopressor] 12.5 mg PO DAILY 01/23/24 09/11/24 History Albuterol Nebulized [Ventolin 2.5 mg INHALATION DIRECTED 09/11/24 09/11/24 History Nebulized] Butalbital/Acetaminophen 1 cap PO DIRECTED 09/11/24 09/11/24 History [Butalbital/Acetaminophen 50-300 MG] Cephalexin [Keflex] 500 mg PO DAILY 09/11/24 09/11/24 History Suvorexant [Belsomra] 10 mg PO HS 09/11/24 09/11/24 History Allergies Allergy/AdvReac Type Severity Reaction Status Date / Time nitrofurantoin Allergy Unknown Verified 09/11/24 15:09 [From Macrobid] Childhood Physical Exam Vitals: Vital Signs Temp Pulse Pulse Resp BP BP Pulse Ox 09/12/24 04:40 98.1 F 90 19 101/59 95 09/12/24 04:31 82 16 148/82 95 09/12/24 04:20 90 16 179/107 95 09/12/24 00:00 97.7 F 77 19 123/84 93 L 09/11/24 20:00 98.1 F 82 19 152/89 92 L 09/11/24 18:26 97.5 F L 89 20 115/77 91 L 09/11/24 12:52 122 H 19 92/75 90 L 09/11/24 11:45 98.2 F 129 H 18 113/70 90 L Intake and Output 09/11/24 09/12/24 09/12/24 22:59 06:59 14:59 Intake Total 240 Balance 240 Intake: Oral 240 Other: Voiding Method Toilet Toilet Diaper Diaper # Voids 2 Weight 84.368 kg Results 09/12/24 04:37 09/12/24 04:37 Cardiac Enzymes 09/11/24 09/11/24 09/12/24 Range/Units 12:36 12:36 04:37 AST 24 (17-59) U/L Troponin I <0.012 <0.012 (0.000-0.034) ng/mL Coagulation 09/11/24 Range/Units 15:21 PT 10.4 (10.0-12.5) sec APTT 22.0 (22.0-30.0) sec CBC 09/11/24 09/12/24 Range/Units 12:36 04:37 WBC 25.4 H 15.5 H (3.8-10.6) k/uL RBC 5.73 5.16 (4.30-5.90) m/uL Hgb 15.4 13.7 (13.0-17.5) gm/dL Hct 48.4 44.7 (39.0-53.0) % Plt Count 268 208 (150-450) k/uL Comprehensive Metabolic Panel 09/11/24 09/12/24 Range/Units 12:36 04:37 Sodium 140 138 (137-145) mmol/L Potassium 3.9 4.4 (3.5-5.1) mmol/L Chloride 109 H 114 H (98-107) mmol/L Carbon Dioxide 25 20 L (22-30) mmol/L BUN 21 H 23 H (9-20) mg/dL Creatinine 0.96 0.62 L (0.66-1.25) mg/dL Glucose 197 H 191 H (74-99) mg/dL Calcium 8.4 8.3 L (8.4-10.2) mg/dL AST 24 (17-59) U/L ALT 19 (4-49) U/L Alkaline Phosphatase 87 (38-126) U/L Total Protein 6.3 (6.3-8.2) g/dL Albumin 3.6 (3.5-5.0) g/dL Current Medications Generic Name Dose Route Start Last Admin Trade Name Freq PRN Reason Stop Dose Admin Acetaminophen 650 mg 09/11/24 15:26 Acetaminophen Tab 325 Mg Tab PO Q6HR PRN Mild Pain or Fever > 100.5 Hydrocodone Bitart/Acetaminophen 1 each 09/11/24 15:26 Hydrocodone/Apap 5-325mg 1 Each Tab PO Q4HR PRN Moderate Pain (Scale 4 to 6) Hydrocodone Bitart/Acetaminophen 1 each 09/11/24 22:00 09/11/24 22:05 Hydrocodone/Apap 7.5-325mg 1 Each Tab PO Not Given TID NELDA Albuterol Sulfate 2 puff 09/11/24 20:00 09/11/24 20:48 Albuterol Hfa Inhaler INHALATION 2 puff RT-QID NELDA Administration Albuterol Sulfate 2 puff 09/11/24 17:21 Albuterol Hfa Inhaler INHALATION RT-Q4H PRN Shortness Of Breath Or Wheezing Alprazolam 1 mg 09/11/24 21:00 09/11/24 20:39 Alprazolam 1 Mg Tab PO 1 mg HS NELDA Administration Apixaban 5 mg 09/12/24 09:00 Apixaban 5 Mg Tab PO BID NELDA Protocol Atorvastatin Calcium 40 mg 09/11/24 21:00 09/11/24 20:39 Atorvastatin 40 Mg Tab PO 40 mg HS NELDA Administration Azithromycin 500 mg 09/12/24 09:00 Azithromycin 500 Mg Tab PO 09/13/24 09:01 DAILY [facility]1983 Protocol Budesonide/Formoterol Fumarate 2 puff 09/11/24 17:00 Symbicort 80-4.5 Mcg Inhaler INHALATION RT-BID PRN Shortness Of Breath Clopidogrel Bisulfate 75 mg 09/12/24 09:00 Clopidogrel 75 Mg Tab PO DAILY [facility], [facility]1983 Dapagliflozin 5 mg 09/12/24 09:00 Dapagliflozin Propanediol 5 Mg Tablet PO DAILY [facility] Dextrose/Water 50 ml 09/11/24 17:13 Dextrose 50% Syringe 50 Ml IVP PER PROTOCOL PRN Hypoglycemia Protocol Dextrose/Water 25 ml 09/11/24 17:13 Dextrose 50% Syringe 50 Ml IVP PER PROTOCOL PRN Hypoglycemia Protocol Ezetimibe 10 mg 09/12/24 09:00 Ezetimibe 10 Mg Tab PO DAILY [facility]1983 Famotidine 40 mg 09/11/24 21:00 09/11/24 20:39 Famotidine 20 Mg Tab PO 40 mg HS NELDA Administration Gabapentin 600 mg 09/12/24 09:00 Gabapentin 300 Mg Cap PO DAILY NELDA Gabapentin 1,200 mg 09/11/24 21:00 09/11/24 20:39 Gabapentin 400 Mg Cap PO 1,200 mg HS NELDA Administration Sodium Chloride 1,000 mls @ 50 mls/hr 09/11/24 15:30 09/11/24 16:27 Saline 0.9% IV 130 mls/hr .Q20H NELDA Administration Cefepime HCl 2 gm/ Sodium 100 mls @ 25 mls/hr 09/12/24 00:00 09/11/24 23:36 Chloride IVPB 25 mls/hr Q8HR NELDA Administration Protocol Vancomycin HCl 1,500 mg/ 500 mls @ 167 mls/hr 09/11/24 18:00 09/12/24 05:26 Sodium Chloride IVPB 167 mls/hr Q12H NELDA Administration Insulin Aspart 0 unit 09/11/24 17:30 09/12/24 06:19 Insulin Aspart (Novolog) 100 Unit/Ml Vial SQ 1 unit ACHS NELDA Administration Protocol Isosorbide Mononitrate 60 mg 09/12/24 09:00 Isosorbide Mononitrate Er 60 Mg Tab.Er.24h PO DAILY [facility]1983 Ketorolac Tromethamine 15 mg 09/11/24 20:25 09/11/24 20:40 Ketorolac 15 Mg/Ml 1 Ml Vial IVP 09/16/24 20:25 15 mg Q6HR PRN Administration Pain Scale 4 to 5 Losartan Potassium 50 mg 09/12/24 09:00 Losartan 50 Mg Tab PO DAILY [facility] Metformin HCl 1,000 mg 09/11/24 21:00 09/11/24 20:40 Metformin 500 Mg Tab PO 1,000 mg BID NELDA Administration Methylprednisolone Sodium Succinate 60 mg 09/11/24 18:00 09/12/24 05:25 Methylprednisolone Sod Succi 125 Mg/2 Ml Vial IV 60 mg Q6HR NELDA Administration Metoprolol Tartrate 12.5 mg 09/12/24 09:00 Metoprolol Tartrate 12.5 Mg Tab PO DAILY [facility] Miscellaneous Information 1 each 09/11/24 12:47 Pneumonia Protocol Utilized 1 Each Misc PO ONCE PRN Per Protocol Naloxone HCl 0.2 mg 09/11/24 15:26 Naloxone 0.4 Mg/Ml 1 Ml Vial IV Q2M PRN Opioid Reversal Belsomra (Suvorexant 10 mg 09/11/24 21:00 09/11/24 21:09 ) 10 Mg Tablet PO Not Given HS NELDA Ondansetron HCl 4 mg 09/11/24 15:26 09/11/24 18:36 Ondansetron 4 Mg/2 Ml Vial IVP 4 mg Q8HR PRN Administration Nausea And Vomiting Pantoprazole Sodium 40 mg 09/11/24 21:00 09/11/24 20:41 Pantoprazole 40 Mg/10 Ml Vial IVP 40 mg BID NELDA Administration Prochlorperazine Edisylate 10 mg 09/11/24 20:23 09/11/24 20:40 Prochlorperazine Inj 10 Mg/2 Ml Vial IVP 10 mg Q6HR PRN Administration Nausea And Vomiting Ropinirole HCl 0.5 mg 09/11/24 21:00 09/11/24 20:39 Ropinirole Hcl 0.25 Mg Tab PO 0.5 mg BID NELDA Administration Sucralfate 1 gm 09/11/24 20:30 09/12/24 06:19 Sucralfate 1 Gm Tab PO 1 gm AC-TID NELDA Administration Tiotropium [place] 2 puff 09/11/24 18:00 09/11/24 20:05 Tiotropium 2.5 Mcg Inhaler INHALATION Not Given RT-DAILY NELDA Trazodone HCl 200 mg 09/11/24 21:00 09/11/24 20:40 Trazodone Hcl 100 Mg Tab PO 200 mg HS NELDA Administration Zinc Sulfate 220 mg 09/11/24 17:15 09/11/24 18:17 Zinc Sulfate 220 Mg Cap PO 220 mg DAILY NELDA Administration Intake and Output 09/11/24 09/12/24 09/12/24 22:59 06:59 14:59 Intake Total 240 Balance 240 Intake: Oral 240 Other: Voiding Method Toilet Toilet Diaper Diaper # Voids 2 Weight 84.368 kg 09/12/24 04:37 09/12/24 04:37
[2024-09-12 12:00] LABS: Glucose,Whole Blood 204 mg/dL (70-110)
--- NOTE | 2024-09-12 13:05 | P.CNPUL ---
History of Present Illness Consult date: 09/12/24 Requesting physician: Leandra Miramontes Reason for consult: pneumonia Chief complaint: Cough and shortness of breath History of present illness: This is a 74-year-old white male familiar to my service, known history of multiple medical problems including severe COPD/emphysema, history of pneumothoraces, history of CVA, diabetes, GERD, hearing disorder, dyslipidemia, previous [place], degenerative joint disease, pneumonia, prostate disorder, patient had recent COVID-19 infection about 3 weeks ago, and since then the patient has not been doing well. He is to have intermittent cough, shortness of breath, wheezing, purulent sputum, but no hemoptysis, no chest pain, no nausea, no vomiting. Patient was brought into the ER yesterday, and his O2 saturation was 90% on room air, chest x-ray showed extensive left lower lobe infiltrate, patient had leukocytosis with WBC count of 25.4, there was also a left shift, repeat COVID test came back positive again, CT angiogram of the chest showed no evidence of pulmonary embolism but did show consolidation within the left lower lobe and small lesion within the left upper lobe consistent with multifocal pneumonia. Patient was initiated on Rocephin and Zithromax, and he was seen by infectious disease on consultation. We were also asked to see the patient in consultation, resume the patient on his usual bronchodilators, infectious disease has recommended broadening the spectrum of his antibiotics coverage, he is now on Rocephin and vancomycin empirically. This is mostly because of the patient recent courses of antibiotics that he received on outpatient basis by his primary care and his underlying illnesses/severe COPD labs revealed leukocytosis with WBC count of 15.5 hemoglobin is 13.7. Patient had relatively normal electrolytes, normal renal profile, troponin level is normal, procalcitonin level is pending Review of Systems CONSTITUTIONAL: Negative, no weight loss, no fever no chills HEENT: Negative CARDIOVASCULAR: Negative s RESPIRATORY: As noted in HPI GASTROINTESTINAL: Negative HEMATOLOGIC: Negative GENITOURINARY: Negative SKIN: Denies rash Past Medical History Past Medical History: COPD, CVA/TIA, Diabetes Mellitus, GERD/Reflux, Hearing Disorder / Deafness, Hyperlipidemia, Myocardial Infarction (MD), Musculoskeletal Disorder, Osteoarthritis (OA), Pneumonia, Prostate Disorder, Pulmonary Embolus (PE), Respiratory Disorder Additional Past Medical History / Comment(s): PE/RLL pneumonia/acute hypoxic failure. Portal bollous emphysema. low back pain, bilat sciatica; RLS; migraines, TIA , BPH, hearing aids, , diverticulosis. onset diabetes 08/11/19, multiple pneumothorax, O2 @2-4L [place] prn. Adrenal insufficiency Last Myocardial Infarction Date:: 12/30/2019 History of Any Multi-Drug Resistant Organisms: None Reported Past Surgical History: Heart Catheterization With Stent, Hernia Repair, Orthopedic Surgery, Prostate Surgery, Tonsillectomy Additional Past Surgical History / Comment(s): Septoplasty/ESSS, EGD, colonoscopy with benign polyp, R inguinal hernia, umbilical hernia, pain clinic procedures, atilio fundloplication. upper bilat lung lobes removed 05/2021, prostate surgery 3 weeks ago. Prostate biopsy 01/20/24. Prostate laser surgery Past Anesthesia/Blood Transfusion Reactions: No Reported Reaction Additional Past Anesthesia/Blood Transfusion Reaction / Comment(s): no known family hx Date of Last Stent Placement:: Past Psychological History: No Psychological Hx Reported, PTSD Additional Psychological History / Comment(s): Pt resides with his spouse. He uses no assistive device. He drives. He has a nebulizer and home oxygen as needed. Smoking Status: Former smoker Past Alcohol Use History: None Reported Additional Past Alcohol Use History / Comment(s): Pt started smoking in 1967, 1-1-1/2 packs per day, quit in 1999 Past Drug Use History: None Reported - Past Family History Father History Unknown: Yes Family Medical History: No Reported History, Unable to Obtain Additional Family Medical History / Comment(s): Pt was adopted. Mother History Unknown: Yes Additional Family Medical History / Comment(s): Pt was adopted. Daughter(s) Additional Family Medical History / Comment(s): Children do not have any major medical problems. No history of blood clots. Medications and Allergies Home Medications Medication Instructions Recorded Confirmed Type Gabapentin 1,200 mg PO HS 04/09/16 09/11/24 History ALPRAZolam [Xanax] 1 mg PO HS 03/25/20 09/11/24 History Fluticasone/Umeclidin/Vilanter 1 puff INHALATION RT-DAILY 10/25/21 09/11/24 History [Trelegy Ellipta 100-62.5-25] Hydrocortisone [Cortef] 30 mg PO DAILY 04/19/22 09/11/24 History Gabapentin 600 mg PO DAILY 09/17/22 09/11/24 History Pantoprazole Sodium [Protonix] 40 mg PO BID 09/17/22 09/11/24 History Losartan [Cozaar] 50 mg PO DAILY #90 tab 09/18/22 09/11/24 Rx Apixaban [Eliquis] 5 mg PO DAILY 05/17/23 09/11/24 History Budesonide/Formoterol Fumarate 2 puff INHALATION RT-BID PRN 05/17/23 09/11/24 History [Symbicort 80-4.5 Mcg Inhaler] Clopidogrel Bisulfate [Clopidogrel] 75 mg PO DAILY 05/17/23 09/11/24 History Empagliflozin [Jardiance] 10 mg PO DAILY 05/17/23 09/11/24 History Ezetimibe [Zetia] 10 mg PO DAILY 05/17/23 09/11/24 History Fluticasone Propion/Salmeterol 1 puff INHALATION RT-BID PRN 05/17/23 09/11/24 History [Wixela 250-50 Inhub] metFORMIN HCL 1,000 mg PO BID 05/17/23 09/11/24 History rOPINIRole HCL [Requip] 0.5 mg PO BID 05/17/23 09/11/24 History traZODone HCL [Desyrel] 200 mg PO HS 05/17/23 09/11/24 History Albuterol Inhaler [Ventolin Hfa 2 puff INHALATION RT-Q4H PRN 01/23/24 09/11/24 History Inhaler] Atorvastatin [Lipitor] 40 mg PO HS 01/23/24 09/11/24 History Famotidine 40 mg PO HS 01/23/24 09/11/24 History HYDROcodone/APAP 7.5-325MG [Bluford 1 tab PO TID 01/23/24 09/11/24 History 7.5-325] Isosorbide Mononitrate ER [Imdur] 30 mg PO DAILY 01/23/24 09/11/24 History Metoprolol Tartrate [Lopressor] 12.5 mg PO DAILY 01/23/24 09/11/24 History Albuterol Nebulized [Ventolin 2.5 mg INHALATION DIRECTED 09/11/24 09/11/24 History Nebulized] Butalbital/Acetaminophen 1 cap PO DIRECTED 09/11/24 09/11/24 History [Butalbital/Acetaminophen 50-300 MG] Cephalexin [Keflex] 500 mg PO DAILY 09/11/24 09/11/24 History Suvorexant [Belsomra] 10 mg PO HS 09/11/24 09/11/24 History Allergies Allergy/AdvReac Type Severity Reaction Status Date / Time nitrofurantoin Allergy Unknown Verified 09/11/24 15:09 [From Macrobid] Childhood Physical Exam Vitals: Vital Signs Temp Pulse Resp BP Pulse Ox 09/12/24 12:00 97 F L 78 18 107/68 09/12/24 08:00 98.2 F 86 18 141/80 96 09/12/24 04:40 98.1 F 90 19 101/59 95 09/12/24 04:31 82 16 148/82 95 09/12/24 04:20 90 16 179/107 95 09/12/24 00:00 97.7 F 77 19 123/84 93 L 09/11/24 20:00 98.1 F 82 19 152/89 92 L 09/11/24 18:26 97.5 F L 89 20 115/77 91 L Intake and Output 09/11/24 09/12/24 09/12/24 22:59 06:59 14:59 Intake Total 240 120 Balance 240 120 Intake: Oral 240 120 Other: Voiding Method Toilet Toilet Toilet Diaper Diaper Diaper # Voids 2 2 Weight 84.368 kg Physical Exam: Revealed 73-year-old white male in no distress.on 3 L nasal cannula Head: Atraumatic, normocephalic. HEENT:[Neck is supple.] [No neck masses.] [No thyromegaly.] [No JVD.] Chest: [diminished breath sound bilaterally no rhonchi or wheezes Cardiac Exam: [Normal S1 and S2, no S3 gallop, no murmur.] Abdomen: [Soft, nontender, no megaly, no rebound, no guarding, normal bowel sounds.] Extremities: [No clubbing, no edema, no cyanosis.] Neurological Exam: [No focal neurologic deficit.]alert oriented 3. Psychiatric: Normal mood, affect and angela mental status examination. skin: No rashes Results - Laboratory Findings CBC and BMP: 09/12/24 04:37 09/12/24 04:37 PT/INR, D-dimer PT 10.4 sec (10.0-12.5) 09/11/24 15:21 INR 0.9 (<1.2) 09/11/24 15:21 D-Dimer 1.09 mg/L FEU (<0.60) H 09/11/24 15:21 Abnormal lab findings: Abnormal Labs 09/11/24 09/11/24 09/11/24 12:36 12:36 12:36 WBC 25.4 H MCHC RDW Neutrophils # 23.5 H Lymphocytes # 0.8 L D-Dimer Chloride 109 H Carbon Dioxide BUN 21 H Creatinine Glucose 197 H POC Glucose (mg/dL) Hemoglobin A1c Plasma Lactic Acid Leon 2.3 H* Calcium C-Reactive Protein Procalcitonin Ur Specific [place] Urine Protein Urine Glucose (UA) SARS-CoV-2 (PCR) 09/11/24 09/11/24 09/11/24 12:36 12:47 12:47 WBC MCHC RDW Neutrophils # Lymphocytes # D-Dimer Chloride Carbon Dioxide BUN Creatinine Glucose POC Glucose (mg/dL) Hemoglobin A1c Plasma Lactic Acid Leon Calcium C-Reactive Protein 3.7 H Procalcitonin 0.53 H Ur Specific [place] Urine Protein Urine Glucose (UA) SARS-CoV-2 (PCR) Detected A 09/11/24 09/11/24 09/11/24 14:00 15:21 16:06 WBC MCHC RDW Neutrophils # Lymphocytes # D-Dimer 1.09 H Chloride Carbon Dioxide BUN Creatinine Glucose POC Glucose (mg/dL) Hemoglobin A1c Plasma Lactic Acid Leon 2.2 H* Calcium C-Reactive Protein Procalcitonin Ur Specific [place] 1.042 H Urine Protein Trace H Urine Glucose (UA) 4+ H SARS-CoV-2 (PCR) 09/11/24 09/11/24 09/12/24 18:10 19:53 04:37 WBC MCHC RDW Neutrophils # Lymphocytes # D-Dimer Chloride Carbon Dioxide BUN Creatinine Glucose POC Glucose (mg/dL) 170 H 166 H Hemoglobin A1c 7.4 H Plasma Lactic Acid Leon Calcium C-Reactive Protein Procalcitonin Ur Specific [place] Urine Protein Urine Glucose (UA) SARS-CoV-2 (PCR) 09/12/24 09/12/24 09/12/24 04:37 04:37 05:51 WBC 15.5 H MCHC 30.8 L RDW 15.7 H Neutrophils # 14.8 H Lymphocytes # 0.4 L D-Dimer Chloride 114 H Carbon Dioxide 20 L BUN 23 H Creatinine 0.62 L Glucose 191 H POC Glucose (mg/dL) 165 H Hemoglobin A1c Plasma Lactic Acid Leon Calcium 8.3 L C-Reactive Protein Procalcitonin Ur Specific [place] Urine Protein Urine Glucose (UA) SARS-CoV-2 (PCR) 09/12/24 11:59 WBC MCHC RDW Neutrophils # Lymphocytes # D-Dimer Chloride Carbon Dioxide BUN Creatinine Glucose POC Glucose (mg/dL) 204 H Hemoglobin A1c Plasma Lactic Acid Leon Calcium C-Reactive Protein Procalcitonin Ur Specific [place] Urine Protein Urine Glucose (UA) SARS-CoV-2 (PCR) - Diagnostic Findings Chest x-ray: image reviewed (Reviewed and as noted in HPI) CT scan - chest: image reviewed (Reviewed and as noted in HPI) Assessment and Plan Assessment: Impression: Acute left lower lobe pneumonia, likely community-acquired History of recent COVID-19 infection with persistent positive PCR Underlying COPD, severe but seems to be an active Leukocytosis secondary to above Remote history of pulmonary embolism History of CVA/TIA History prostate biopsies Degenerative joint disease History of bullous emphysema and previous volume reduction History of pneumothoraces Type 2 diabetes without complications Recommendation: Continue present broad-spectrum coverage with antibiotics, ID recommended cefepime and vancomycin until cultures of blood and sputum are available and procalcitonin level is pending Continue bronchodilators, resume home meds/bronchodilators Resume Eliquis as taken at home 5 mg twice daily Resume Plavix Resume farxiga no need for Solu-Medrol Patient to go on Symbicort We will continue to Time with Patient: Greater than 30
--- NOTE | 2024-09-12 16:07 | CA ---
Transthoracic Echo Report Name: Deandre Duong Age: 74 Gender: M : 1950 Exam Date: 09/12/2024 10:50 Exam Location: [facility] Ht (in): 71 Wt (lb): 186 Ordering Physician: Shae Rubin Attending/Referring Phys: [id number], Caryn Faa Certified Powerplant [employer]ic Jayla Odom RDCS Procedure CPT: Indications: CP, pneumonia, poss Covid Cardiac Hx: Technical Quality: Good Contrast 1: Total Dose (mL): Contrast 2: Total Dose (mL): MEASUREMENTS (Male / Female) Normal Values 2D ECHO LV Diastolic Diameter PLAX 4.7 cm 4.2 - 5.9 / 3.9 - 5.3 cm LV Systolic Diameter PLAX 2.9 cm IVS Diastolic Thickness 1.1 cm 0.6 - 1.0 / 0.6 - 0.9 cm LVPW Diastolic Thickness 1.2 cm 0.6 - 1.0 / 0.6 - 0.9 cm LV Relative Wall Thickness 0.5 RV Internal Dim ED PLAX 3.6 cm LA Systolic Diameter LX 4.0 cm 3.0 - 4.0 / 2.7 - 3.8 cm LV Diastolic Volume MOD 4C 96.9 cm??? LV Systolic Volume MOD 4C 34.5 cm??? LV Ejection Fraction MOD 4C 64.4 % LV Cardiac Index MOD 4C 2718.3 cm???/min???m??? LV Diastolic Length 4C 8.6 cm LV Systolic Length 4C 7.2 cm LV Diastolic Volume MOD 2C 107.3 cm??? LV Systolic Volume MOD 2C 46.8 cm??? LV Ejection Fraction MOD 2C 56.3 % LV Cardiac Index MOD 2C 2633.1 cm???/min???m??? LV Diastolic Length 2C 8.9 cm LV Systolic Length 2C 7.3 cm LA Volume 69.7 cm??? 18 - 58 / 22 - 52 cm??? LA Volume Index 33.7 cm???/m??? 16 - 28 cm???/m??? DOPPLER AV Peak Velocity 159.4 cm/s AV Peak Gradient 10.2 mmHg MV Area PHT 2.6 cm??? Mitral E Point Velocity 95.5 cm/s Mitral A Point Velocity 132.4 cm/s Mitral E to A Ratio 0.7 MV Deceleration Time 289.4 ms TR Peak Velocity 294.8 cm/s TR Peak Gradient 34.8 mmHg Right Ventricular Systolic Press 38.7 mmHg FINDINGS Left Ventricle Left ventricular ejection fraction is estimated at 55-60 %. Normal left ventricular wall motion. Left ventricular cavity size normal. Right Ventricle Mild right ventricular dilatation. Mild pulmonary hypertension. Right Atrium Normal right atrial size. No right atrial thrombus or mass seen. Left Atrium Mildly increased left atrial volume. Mildly increased left atrial area. No left atrial thrombus or mass present. Mitral Valve Structurally normal mitral valve.mild mitral regurgitation. Aortic Valve Trileaflet aortic valve. Thickened aortic valve without stenosis.mild aortic regurgitation. Tricuspid Valve Structurally normal tricuspid valve. Mild tricuspid regurgitation. Pulmonic Valve Structurally normal pulmonic valve. Trace pulmonic regurgitation. Pericardium No pericardial or pleural effusion. Aorta Normal size aortic root and proximal ascending aorta. CONCLUSIONS 1. Normal left ventricular size and systolic function 2. Mild mitral and aortic regurgitation 3. Mild tricuspid regurgitation and mild pulmonary hypertension Previewed by: Dr. Judith Gresham MD (Electronically Signed) Final Date: 12 September 2024 16:06
[2024-09-12 16:31] LABS: Glucose,Whole Blood 184 mg/dL (70-110)
[2024-09-12] MEDS: SYMBICORT 160-4.5 MCG INHALER INHALATION SCH (20:16)
[2024-09-12 21:19] LABS: Glucose,Whole Blood 239 mg/dL (70-110)
[2024-09-13 04:57] LABS: African American GFR (CKD) >90 (>60 ml/min/1.73 sqM); Non-African American GFR(CKD) >90 (>60 ml/min/1.73 sqM)
[2024-09-13 06:39] LABS: Glucose,Whole Blood 161 mg/dL (70-110)
--- NOTE | 2024-09-13 08:48 | PN ---
PROGRESS NOTE DATE OF SERVICE: 09/12/2024 SUBJECTIVE: This is a 74-year-old gentleman admitted with acute left lower lobe pneumonia with possible sepsis, also had COVID-19 recently. Multiple consultants are following the patient closely. The patient is short of breath. The patient is also complaining of cough also. Multifocal pneumonia was noted. Cultures are pending at this time. PAST MEDICAL HISTORY: Reviewed. REVIEW OF SYSTEMS: A 14-point review is negative except as mentioned earlier. CURRENT MEDICATIONS: The patient is on cefepime per ID recommendations. CURRENT MEDICATIONS: Reviewed. PHYSICAL EXAMINATION: VITAL SIGNS: Pulse is 78, blood pressure 107/60, respirations 18. HEENT: Conjunctivae normal. NECK: No JVD. CARDIOVASCULAR: S1, S2. RESPIRATIONS: Breath sounds diminished at the bases. Bilateral scattered rhonchi and crackles. ABDOMEN: Soft. NERVOUS SYSTEM: Nonfocal. LABORATORY DATA: Noted. ASSESSMENT: 1. Acute multifocal left lower lobe pneumonia with extensive left-sided pneumonia with possible sepsis present on admission, possibly gram-negative pneumonia. 2. Elevated WBC. 3. Elevated plasma lactic acid. 4. COVID-19 recently. 5. Chronic obstructive pulmonary disease exacerbation. 6. Gastroesophageal reflux disease. 7. Hyperlipidemia. 8. History of pulmonary embolism. 9. History of coronary artery disease stent. RECOMMENDATIONS AND DISCUSSION: Recommend to continue current management and continue symptomatic treatment. Otherwise, continue the broad-spectrum IV antibiotics. Continue with bronchodilators. Closely follow with multiple consultations. Await cultures. Guarded prognosis. Further recommendations to follow. MMODL / IJN: [id number] /
--- NOTE | 2024-09-13 11:31 | P.PN ---
Subjective Progress Note Date: 09/13/24 This is a 74-year-old white male familiar to my service, known history of multiple medical problems including severe COPD/emphysema, history of pneumothoraces, history of CVA, diabetes, GERD, hearing disorder, dyslipidemia, previous [place], degenerative joint disease, pneumonia, prostate disorder, patient had recent COVID-19 infection about 3 weeks ago, and since then the patient has not been doing well. He is to have intermittent cough, shortness of breath, wheezing, purulent sputum, but no hemoptysis, no chest pain, no nausea, no vomiting. Patient was brought into the ER yesterday, and his O2 saturation was 90% on room air, chest x-ray showed extensive left lower lobe infiltrate, patient had leukocytosis with WBC count of 25.4, there was also a left shift, repeat COVID test came back positive again, CT angiogram of the chest showed no evidence of pulmonary embolism but did show consolidation within the left lower lobe and small lesion within the left upper lobe consistent with multifocal pne umonia. Patient was initiated on Rocephin and Zithromax, and he was seen by infectious disease on consultation. We were also asked to see the patient in consultation, resume the patient on his usual bronchodilators, infectious disease has recommended broadening the spectrum of his antibiotics coverage, he is now on Rocephin and vancomycin empirically. This is mostly because of the patient recent courses of antibiotics that he received on outpatient basis by his primary care and his underlying illnesses/severe COPD labs revealed leukocytosis with WBC count of 15.5 hemoglobin is 13.7. Patient had relatively normal electrolytes, normal renal profile, troponin level is normal, procalcitonin level is pending The patient is seen today September 13, 2024 in follow-up on the regular medical floor. He is currently sitting up in a chair at the bedside. Awake and alert in no acute distress. Feeling better today compared to yesterday. He is maintaining good O2 saturations in the 90s on room air. Afebrile. Hemodynamically stable. Creatinine 0.71. GFR greater than 90. Glucose 161. P rocalcitonin 3.78. He remains on vancomycin and cefepime. Anticoagulated with Eliquis. Remains on Symbicort, albuterol, Spiriva. Objective - Vital Signs Vital signs: Vital Signs Temp 97.9 F 09/13/24 07:11 Pulse 58 L 09/13/24 09:24 Resp 18 09/13/24 09:24 BP 127/82 09/13/24 07:11 Pulse Ox 92 L 09/13/24 07:11 FiO2 Intake & Output 09/12/24 09/13/24 09/13/24 18:59 06:59 18:59 Intake Total 480 Balance 480 Weight 83.5 kg Intake: Oral 480 Other: Voiding Method Toilet Toilet Toilet Diaper Diaper Diaper # Voids 2 1 - Exam GENERAL EXAM: Alert, pleasant 74-year-old male, up in a chair, on room air, comfortable in no apparent distress. HEAD: Normocephalic. EYES: Normal reaction of pupils, equal size. NOSE: Clear with pink turbinates. THROAT: No erythema or exudates. NECK: No masses, no JVD. CHEST: No chest wall deformity. LUNGS: Equal air entry with few rhonchi over the left lung base. CVS: S1 and S2 normal with no audible murmur, regular rhythm. ABDOMEN: No hepatosplenomegaly, normal bowel sounds, no guarding or rigidity. SPINE: No scoliosis or deformity SKIN: No rashes CENTRAL NERVOUS SYSTEM: No focal deficits, tone is normal in all 4 extremities. EXTREMITIES: There is no peripheral edema. No clubbing, no cyanosis. Peripheral pulses are intact. - Labs CBC & Chem 7: 09/12/24 04:37 09/13/24 03:57 Labs: Abnormal Lab Results - Last 24 Hours (Table) 09/12/24 09/12/24 09/12/24 Range/Units 11:15 11:59 16:29 POC Glucose (mg/dL) 204 H 184 H (70-110) mg/dL Procalcitonin 3.78 H (0.02-0.50) ng/mL 09/12/24 09/13/24 Range/Units 21:17 06:38 POC Glucose (mg/dL) 239 H 161 H (70-110) mg/dL Procalcitonin (0.02-0.50) ng/mL Microbiology - Last 24 Hours (Table) 09/11/24 14:40 Blood Culture - Preliminary Blood Assessment and Plan Assessment: Acute left lower lobe pneumonia, likely community-acquired. Procalcitonin 3.78 History of recent COVID-19 infection with persistent positive PCR Underlying COPD, severe but seems to be an active Leukocytosis secondary to above Remote history of pulmonary embolism History of CVA/TIA History prostate biopsies Degenerative joint disease History of bullous emphysema and previous volume reduction History of pneumothoraces Type 2 diabetes without complications Plan: The patient was seen and evaluated Labs and medications reviewed Procalcitonin 3.78 Continued on vancomycin and cefepime Sputum culture pending Continue bronchodilators Anticoagulated with Eliquis Follow-up chest x-ray in a.m. We will continue to follow I have personally seen and examined the patient, performed the documentation and the assessment and plan as written. Number of minutes spent on the visit: 10 Dictation was produced using idio dictation software. Please excuse any grammatical, word or spelling errors.
[2024-09-13 11:35] LABS: Glucose,Whole Blood 143 mg/dL (70-110)
--- NOTE | 2024-09-13 11:42 | P.PN ---
Subjective Progress Note Date: 09/13/24 This is a 74-year-old male with a past medical history significant for coronary artery disease with previous stenting, known [employer]INE[employer] of RCA, hypertension, hyperlipidemia, diabetes, lung resection, COPD, prostate surgery, and pulmonary embolism on Eliquis. Patient follows in the office with Dr. Ochoa. We have been asked to see the patient in consultation for chest pain. Patient examined at the bedside. Patient presented to the hospital with a chief complaint of shortness of breath. Patient states he has been feeling short of breath since Saturday. He reports that he had a cough with sputum production but now just has a dry cough. He reports a fever at home of 100.6 F. Patient was found to be positive for COVID. He states that he also had COVID about 6 weeks ago. He states that his has non-Hodgkin's lymphoma so they do not leave the house very often and he does not believe that this is a reoccurrence of COVID and has not been around anybody with COVID. Patient states yesterday he had an episode of chest pain and again this morning. He states the pain is worse with deep inspiration. He also states the pain is worse with chest wall palpation. He states the pain is better if he lays on his left side. Patient saw Dr. Ochoa in June and his Imdur was increased from 30 mg to 60 mg. The patient states he has been taking 60 mg on a daily basis. He states he is only had 2 episodes of chest discomfort since his Imdur was increased. The patient was found to have pneumonia and was started on IV antibiotics. DIAGNOSTICS: - EKG reveals sinus mechanism with no signs of acute ischemia - Chest xray left lower lung infiltrate -Chest CTA: No evidence for pulmonary embolism. Consolidative and groundglass opacities primarily within the left lower lobe small regions within the left upper lobe consistent with multifocal pneumonia, reactive left hilar lymphadenopathy, moderate to severe emphysematous changes with bullous changes within the bilateral upper lobes, small to moderate-sized hiatal hernia. - Laboratory data: WBC 15.5. Hemoglobin 13.7. Platelet count 208. Sodium 138. Potassium 4.4. BUN 23. Creatinine 0.62. Hemoglobin A1c 7.4. Troponin negative x 2. - Current home cardiac medications include metoprolol tartrate 12.5 mg daily, losartan 50 mg daily, Imdur 30 mg daily, Zetia 10 mg daily, Jardiance 10 mg daily, Plavix 75 mg daily, Lipitor 40 mg daily, Eliquis 5 mg daily - Most recent echocardiogram obtained in September 2023 revealed ejection fraction 55 to 60%, trace MR -Patient underwent Lexiscan stress test in March 2024 revealing ejection fraction 45%, small area of partial reversibility suggestive of valerie-infarct ischemia with inferior basal hypokinesia with known RCA occlusion. No change from previous. - Cardiac catheterization history: August 2022 revealing left main with no significant disease, dominant RCA [employer], 95% mid LAD lesion, circumflex with patent stent, patient underwent PCI of the LAD. 09/13/2024 The patient was seen and examined sitting up in a chair. Continues on IV antibiotics and followed by pulmonary. He is feeling a bit better today. His chest is feeling better. Vital signs are stable. Echocardiogram with Doppler study showed a normal LV systolic function with mild MR, AI, TR and mild pulmonary hypertension. Objective - Vital Signs Vital signs: Vital Signs Temp 97.9 F 09/13/24 07:11 Pulse 58 L 09/13/24 09:24 Resp 18 09/13/24 09:24 BP 127/82 09/13/24 07:11 Pulse Ox 92 L 09/13/24 07:11 FiO2 Intake & Output 09/12/24 09/13/24 09/13/24 18:59 06:59 18:59 Intake Total 480 Balance 480 Weight 83.5 kg Intake: Oral 480 Other: Voiding Method Toilet Toilet Toilet Diaper Diaper Diaper # Voids 2 1 - Exam VITAL SIGNS: Reviewed. GENERAL: Well-developed in no acute distress. HEENT: Head is normocephalic. Pupils are equal, round. Sclerae anicteric. Mucous membranes of the mouth are moist. Neck supple. No JVD or thyromegaly LUNGS: Respirations even and unlabored. Lungs with bilateral scattered crackles HEART: Regular rate and rhythm. S1 and S2 heard. ABDOMEN: Soft. Nondistended. Nontender. EXTREMITIES: Normal range of motion. No clubbing or cyanosis. Peripheral pulses intact. No lower extremity edema NEUROLOGIC: Awake and alert. Oriented x 3. - Labs CBC & Chem 7: 09/12/24 04:37 09/13/24 03:57 Labs: Abnormal Lab Results - Last 24 Hours (Table) 09/12/24 09/12/24 09/12/24 Range/Units 11:15 11:59 16:29 POC Glucose (mg/dL) 204 H 184 H (70-110) mg/dL Procalcitonin 3.78 H (0.02-0.50) ng/mL 09/12/24 09/13/24 Range/Units 21:17 06:38 POC Glucose (mg/dL) 239 H 161 H (70-110) mg/dL Procalcitonin (0.02-0.50) ng/mL Microbiology - Last 24 Hours (Table) 09/11/24 14:40 Blood Culture - Preliminary Blood Assessment and Plan Assessment: Shortness of breath Multifocal pneumonia of the left lung Acute hypoxic respiratory failure requiring supplemental oxygen + Covid 19, may be still testing positive as patient had Covid 6 weeks ago Chest pain, atypical, troponin negative x 2, reproducible upon examination, appears pleuritic Coronary artery disease with previous stenting, most recently to mid LAD, 08/2022 Known [employer]ER of RCA Hypertension Hyperlipidemia Diabetes History of COPD on home oxygen as needed History of pulmonary embolism, on Eliquis History of lung resection at [facility] History of prostate surgery at [facility], May 2024 Plan: From cardiology's perspective medications were reviewed and we will continue the same. Patient to follow-up postdischarge with Dr. Ochoa. [employer]PATCH[employer] note has been reviewed, I agree with a documented findings and plan of care. Patient was seen and examined.
[2024-09-13 16:24] LABS: Glucose,Whole Blood 163 mg/dL (70-110)
--- NOTE | 2024-09-13 16:24 | P.PN ---
Subjective Progress Note Date: 09/12/24 Principal diagnosis: Reason for follow-up is pneumonia Patient is a 74-year-old male with a past medical history significant for COPD, CVA/TIA, Diabetes Mellitus, GERD/Reflux, Hearing Disorder / Deafness, Hyperlipidemia, Myocardial Infarction ([place]), Musculoskeletal Disorder, Osteoarthritis (OA), Pneumonia, Prostate Disorder, Pulmonary Embolus (PE), Respiratory Disorder and recently did have a COVID-19 about 6 weeks ago presenting to the hospital for evaluation of increasing shortness of breath and cough, patient be diagnosed with extensive pneumonia. On today's evaluation that is 09/12/2024, Patient is afebrile this morning patient denies having any chest pain shortness of breath and the cough is decreased in intensity, the patient is currently on room air, patient denies any abdominal pain no diarrhea no nausea no vomiting. Patient white count is down to 15.5 creatinine 0.62 procalcitonin is 3.78 sputum cultures pending Objective - Vital Signs Vital signs: Vital Signs Temp 97.3 F L 09/12/24 16:00 Pulse 77 09/12/24 16:00 Resp 16 09/12/24 16:00 BP 112/61 09/12/24 16:00 Pulse Ox 93 L 09/12/24 16:00 FiO2 Intake & Output 09/12/24 09/12/24 09/13/24 06:59 18:59 06:59 Intake Total 480 Balance 480 Intake: Oral 480 Other: Voiding Method Toilet Toilet Diaper Diaper # Voids 2 2 - Exam GENERAL DESCRIPTION: An elderly male lying in bed in no distress RESPIRATORY SYSTEM: Unlabored breathing , coarse breath sound left base HEART: S1 S2 regular rate and rhythm , ABDOMEN: Soft , no tenderness EXTREMITIES: No edema feet - Labs CBC & Chem 7: 09/12/24 04:37 09/13/24 03:57 Labs: Abnormal Lab Results - Last 24 Hours (Table) 09/11/24 09/11/24 09/12/24 Range/Units 12:47 19:53 04:37 WBC (3.8-10.6) k/uL MCHC (31.0-37.0) g/dL RDW (11.5-15.5) % Neutrophils # (1.3-7.7) k/uL Lymphocytes # (1.0-4.8) k/uL Chloride (98-107) mmol/L Carbon Dioxide (22-30) mmol/L BUN (9-20) mg/dL Creatinine (0.66-1.25) mg/dL Glucose (74-99) mg/dL POC Glucose (mg/dL) 166 H (70-110) mg/dL Hemoglobin A1c 7.4 H (<=6.0) % Calcium (8.4-10.2) mg/dL Procalcitonin 0.53 H (0.02-0.50) ng/mL 09/12/24 09/12/24 09/12/24 Range/Units 04:37 04:37 05:51 WBC 15.5 H (3.8-10.6) k/uL MCHC 30.8 L (31.0-37.0) g/dL RDW 15.7 H (11.5-15.5) % Neutrophils # 14.8 H (1.3-7.7) k/uL Lymphocytes # 0.4 L (1.0-4.8) k/uL Chloride 114 H (98-107) mmol/L Carbon Dioxide 20 L (22-30) mmol/L BUN 23 H (9-20) mg/dL Creatinine 0.62 L (0.66-1.25) mg/dL Glucose 191 H (74-99) mg/dL POC Glucose (mg/dL) 165 H (70-110) mg/dL Hemoglobin A1c (<=6.0) % Calcium 8.3 L (8.4-10.2) mg/dL Procalcitonin (0.02-0.50) ng/mL 09/12/24 09/12/24 Range/Units 11:59 16:29 WBC (3.8-10.6) k/uL MCHC (31.0-37.0) g/dL RDW (11.5-15.5) % Neutrophils # (1.3-7.7) k/uL Lymphocytes # (1.0-4.8) k/uL Chloride (98-107) mmol/L Carbon Dioxide (22-30) mmol/L BUN (9-20) mg/dL Creatinine (0.66-1.25) mg/dL Glucose (74-99) mg/dL POC Glucose (mg/dL) 204 H 184 H (70-110) mg/dL Hemoglobin A1c (<=6.0) % Calcium (8.4-10.2) mg/dL Procalcitonin (0.02-0.50) ng/mL Microbiology - Last 24 Hours (Table) 09/11/24 17:50 Gram Stain - Preliminary Sputum Assessment and Plan (1) Leukocytosis Current Visit: Yes Status: Acute Code(s): D72.829 - ELEVATED WHITE BLOOD CELL COUNT, UNSPECIFIED SNOMED Code(s): 960467350 (2) History of COVID-19 Current Visit: Yes Status: Acute Code(s): Z86.16 - PERSONAL HISTORY OF COVID-19 SNOMED Code(s): 731376830544347687 (3) Pneumonia Current Visit: Yes Status: Acute Code(s): J18.9 - PNEUMONIA, UNSPECIFIED ORGANISM SNOMED Code(s): 814751054 Plan: 1patient presented to hospital with increasing shortness of breath cough sputum production in this patient who did have evidence of multifocal pneumonia on the left lung patient did have a COVID-19 about 6 weeks ago and concerning for possible resistant gram-positive/gram-negative infection post COVID-19 pneumonia. 2patient did have elevated procalcitonin level and sputum culture currently pending. 3patient to continue with cefepime 2 g every 8 hours and vancomycin pharmacy to dose while waiting for the culture to finalize. Dictation was produced using [employer] dictation software. please excuse any grammatical, word or spelling errors. Time with Patient: Less than 30
--- NOTE | 2024-09-13 16:25 | P.PN ---
Subjective Progress Note Date: 09/13/24 Principal diagnosis: Reason for follow-up is pneumonia Patient is a 74-year-old male with a past medical history significant for COPD, CVA/TIA, Diabetes Mellitus, GERD/Reflux, Hearing Disorder / Deafness, Hyperlipidemia, Myocardial Infarction ([place]), Musculoskeletal Disorder, Osteoarthritis (OA), Pneumonia, Prostate Disorder, Pulmonary Embolus (PE), Respiratory Disorder and recently did have a COVID-19 about 6 weeks ago presenting to the hospital for evaluation of increasing shortness of breath and cough, patient be diagnosed with extensive pneumonia. On today's evaluation that is 09/13/2024,the patient denies any fever or any chills, patient is breathing comfortably on room air, the patient denies chest pain shortness of breath and and cough and decreased intensity less productive now, patient denies abdominal pain, no nausea vomiting or diarrhea. Patient did have a creatinine 0.71 sputum is growing gram-negative Objective - Vital Signs Vital signs: Vital Signs Temp 97.6 F 09/13/24 13:47 Pulse 68 09/13/24 13:47 Resp 17 09/13/24 13:47 BP 153/93 09/13/24 13:47 Pulse Ox 93 L 09/13/24 13:47 FiO2 Intake & Output 09/12/24 09/13/24 09/13/24 18:59 06:59 18:59 Intake Total 480 Balance 480 Weight 83.5 kg Intake: Oral 480 Other: Voiding Method Toilet Toilet Toilet Diaper Diaper Diaper # Voids 2 1 - Exam GENERAL DESCRIPTION: An elderly male lying in bed in no distress RESPIRATORY SYSTEM: Unlabored breathing , coarse breath sound left base, no wheeze HEART: S1 S2 regular rate and rhythm , ABDOMEN: Soft , no tenderness EXTREMITIES: No edema feet - Labs CBC & Chem 7: 09/12/24 04:37 09/13/24 03:57 Labs: Abnormal Lab Results - Last 24 Hours (Table) 09/12/24 09/12/24 09/12/24 Range/Units 11:15 16:29 21:17 POC Glucose (mg/dL) 184 H 239 H (70-110) mg/dL Procalcitonin 3.78 H (0.02-0.50) ng/mL 09/13/24 09/13/24 Range/Units 06:38 11:34 POC Glucose (mg/dL) 161 H 143 H (70-110) mg/dL Procalcitonin (0.02-0.50) ng/mL Microbiology - Last 24 Hours (Table) 09/11/24 18:47 Nasal Screen MRSA/MSSA - Final Nasal Swab 09/11/24 17:50 Gram Stain - Preliminary Sputum Sputum Culture - Preliminary Gram Neg Bacilli 09/11/24 14:40 Blood Culture - Preliminary Blood Assessment and Plan (1) Leukocytosis Current Visit: Yes Status: Acute Code(s): D72.829 - ELEVATED WHITE BLOOD CELL COUNT, UNSPECIFIED SNOMED Code(s): 579100923 (2) History of COVID-19 Current Visit: Yes Status: Acute Code(s): Z86.16 - PERSONAL HISTORY OF COVID-19 SNOMED Code(s): 849742915072308746 (3) Pneumonia Current Visit: Yes Status: Acute Code(s): J18.9 - PNEUMONIA, UNSPECIFIED ORGANISM SNOMED Code(s): 550174383 Plan: 1patient presented to hospital with increasing shortness of breath cough sputum production in this patient who did have evidence of multifocal pneumonia on the left lung patient did have a COVID-19 about 6 weeks ago and concerning for possible resistant gram-positive/gram-negative infection post COVID-19 pneumonia . 2patient did have elevated procalcitonin level and sputum culture currently growing gram-negative bacilli 3patient to continue with cefepime 2 g every 8 hours as a sputum is showing gram-negative only we will discontinue vancomycin Dictation was produced using [email or web address] dictation software. please excuse any grammatical, word or spelling errors. Time with Patient: Less than 30
[2024-09-13] MEDS ORDERED: VANCOMYCIN TROUGH DUE 1 EACH MISC MISCELLANE ONE (17:00)
[2024-09-13 22:25] LABS: Glucose,Whole Blood 148 mg/dL (70-110)
[2024-09-14 06:03] LABS: Glucose,Whole Blood 116 mg/dL (70-110)
--- NOTE | 2024-09-14 08:30 | XR ---
EXAMINATION TYPE: XR chest 1V portable DATE OF EXAM: 09/14/2024 COMPARISON: 09/11/2024 HISTORY: Left lower lobe pneumonia TECHNIQUE: Single frontal view of the chest is obtained. FINDINGS: Left lower lobe infiltrate is much improved. Linear atelectasis right medial lung base. Th e cardiac silhouette size is within normal limits. The osseous structures are intact. IMPRESSION: Left lower lobe infiltrate is much improved. Linear atelectasis right medial lung base. [facility], , 09/14/2024 8:27 AM
[2024-09-14 08:42] LABS: Basophils # (A) 0.01 X 10*3/uL (0.00-0.10); Basophils % (A) 0.1 %; Eosinophils # (A) 0.03 X 10*3/uL (0.04-0.35); Eosinophils % (A) 0.3 %; HCT 37.3 % (39.6-50.0); HGB 11.4 g/dL (13.0-17.0); Lymphocytes % (A) 11.6 %; MCH 26.8 pg (27.0-32.0); MCHC 30.6 g/dL (32.0-37.0); MCV 87.6 FL (80.0-97.0); Mean Platelet Volume 9.4 FL (9.5-12.2); Monocytes # (A) 0.66 X 10*3/uL (0.20-1.00); Monocytes % (A) 5.9 %; NRBC Per 100 WBC 0 X 10*3/uL (0.00-0.01); Neutrophils # (A) 9.16 X 10*3/uL (1.80-7.70); Neutrophils % (A) 81.4 %; Platelet Count 202 X 10*3/uL (140-440); RBC 4.26 X 10*6/uL (4.40-5.60); RDW 16.6 % (11.5-14.5); WBC 11.24 X 10*3/uL (4.50-10.00)
[2024-09-14 08:46] LABS: ALT 10 U/L (10-49); AST 9 U/L (14-35); Albumin 2.7 g/dL (3.8-4.9); Albumin/Globulin Ratio 1.69 Ratio (1.60-3.17); Alkaline Phosphatase 62 U/L (41-126); BUN/Creat Ratio 45.88 Ratio (12.00-20.00); Blood Urea Nitrogen 36.7 mg/dL (9.0-27.0); Carbon Dioxide 20.8 mmol/L (21.6-31.8); Chloride 111 mmol/L (96-109); Globulin 1.6 g/dL (1.6-3.3); Glucose 147 mg/dL (70-110); Sodium 140 mmol/L (135-145); Total Bilirubin 0.3 mg/dL (0.3-1.2); Total Protein 4.3 g/dL (6.2-8.2)
[2024-09-14] MEDS: CALCIUM CARBONATE 500 MG CHEWABLE PO STA (11:05)
[2024-09-14] MEDS: DOCUSATE 100 MG CAP PO SCH (11:06)
[2024-09-14 11:25] LABS: Glucose,Whole Blood 109 mg/dL (70-110)
--- NOTE | 2024-09-14 13:24 | P.PN ---
Subjective Progress Note Date: 09/14/24 This is a 74-year-old white male familiar to my service, known history of multiple medical problems including severe COPD/emphysema, history of pneumothoraces, history of CVA, diabetes, GERD, hearing disorder, dyslipidemia, previous NE, degenerative joint disease, pneumonia, prostate disorder, patient had recent COVID-19 infection about 3 weeks ago, and since then the patient has not been doing well. He is to have intermittent cough, shortness of breath, wheezing, purulent sputum, but no hemoptysis, no chest pain, no nausea, no vomiting. Patient was brought into the ER yesterday, and his O2 saturation was 90% on room air, chest x-ray showed extensive left lower lobe infiltrate, patient had leukocytosis with WBC count of 25.4, there was also a left shift, repeat COVID test came back positive again, CT angiogram of the chest showed no evidence of pulmonary embolism but did show consolidation within the left lower lobe and small lesion within the left upper lobe consistent with multifocal pne umonia. Patient was initiated on Rocephin and Zithromax, and he was seen by infectious disease on consultation. We were also asked to see the patient in consultation, resume the patient on his usual bronchodilators, infectious disease has recommended broadening the spectrum of his antibiotics coverage, he is now on Rocephin and vancomycin empirically. This is mostly because of the patient recent courses of antibiotics that he received on outpatient basis by his primary care and his underlying illnesses/severe COPD labs revealed leukocytosis with WBC count of 15.5 hemoglobin is 13.7. Patient had relatively normal electrolytes, normal renal profile, troponin level is normal, procalcitonin level is pending The patient is seen today September 13, 2024 in follow-up on the regular medical floor. He is currently sitting up in a chair at the bedside. Awake and alert in no acute distress. Feeling better today compared to yesterday. He is maintaining good O2 saturations in the 90s on room air. Afebrile. Hemodynamically stable. Creatinine 0.71. GFR greater than 90. Glucose 161. P rocalcitonin 3.78. He remains on vancomycin and cefepime. Anticoagulated with Eliquis. Remains on Symbicort, albuterol, Spiriva. The patient is seen today September 14, 2024 in follow-up on the regular medical floor. He is currently sitting up at the bedside. Awake and alert in no acute distress. Denies any worsening shortness of breath, cough or congestion. He is maintaining O2 saturations in the 90s on room air. Chest x-ray is showing improvement in the left lower lobe infiltrate. He remains on cefepime. Continued on bronchodilators and steroids. Anticoagulated with Eliquis. His sputum culture was positive for ESBL E. coli. Blood cultures showed no growth. White count 11.2. Hemoglobin 11.4. Platelets 202. Sodium 140. Potassium 4.0. Bicarb 21. BUN 37. Creatinine 0.8. Glucose 147. Objective - Vital Signs Vital signs: Vital Signs Temp 97.1 F L 09/14/24 07:51 Pulse 60 09/14/24 07:51 Resp 18 09/14/24 07:51 BP 167/95 09/14/24 07:51 Pulse Ox 93 L 09/14/24 10:49 FiO2 Intake & Output 09/13/24 09/14/24 09/14/24 18:59 06:59 18:59 Weight 83 kg Other: Voiding Method Toilet Toilet Toilet Diaper Diaper # Voids 3 - Exam GENERAL EXAM: Alert, pleasant 74-year-old male, on room air, in no apparent distress. HEAD: Normocephalic. EYES: Normal reaction of pupils, equal size. NOSE: Clear with pink turbinates. THROAT: No erythema or exudates. NECK: No masses, no JVD. CHEST: No chest wall deformity. LUNGS: Equal air entry with few rhonchi over the left lung base. CVS: S1 and S2 normal with no audible murmur, regular rhythm. ABDOMEN: No hepatosplenomegaly, normal bowel sounds, no guarding or rigidity. SPINE: No scoliosis or deformity SKIN: No rashes CENTRAL NERVOUS SYSTEM: No focal deficits, tone is normal in all 4 extremities. EXTREMITIES: There is no peripheral edema. No clubbing, no cyanosis. Peripheral pulses are intact. - Labs CBC & Chem 7: 09/14/24 03:34 09/14/24 03:34 Labs: Abnormal Lab Results - Last 24 Hours (Table) 09/13/24 09/13/24 09/14/24 Range/Units 16:23 22:24 03:34 WBC 11.24 H (4.50-10.00) X 10*3/uL RBC 4.26 L (4.40-5.60) X 10*6/uL Hgb 11.4 L (13.0-17.0) g/dL Hct 37.3 L (39.6-50.0) % MCH 26.8 L (27.0-32.0) pg MCHC 30.6 L (32.0-37.0) g/dL RDW 16.6 H (11.5-14.5) % MPV 9.4 L (9.5-12.2) FL Immature Gran # 0.08 H (0.00-0.04) X 10*3/uL Neutrophils # 9.16 H (1.80-7.70) X 10*3/uL Eosinophils # 0.03 L (0.04-0.35) X 10*3/uL Chloride (96-109) mmol/L Carbon Dioxide (21.6-31.8) mmol/L BUN (9.0-27.0) mg/dL BUN/Creatinine Ratio (12.00-20.00) Ratio Glucose (70-110) mg/dL POC Glucose (mg/dL) 163 H 148 H (70-110) mg/dL Calcium (8.7-10.3) mg/dL AST (14-35) U/L Total Protein (6.2-8.2) g/dL Albumin (3.8-4.9) g/dL 09/14/24 09/14/24 Range/Units 03:34 06:02 WBC (4.50-10.00) X 10*3/uL RBC (4.40-5.60) X 10*6/uL Hgb (13.0-17.0) g/dL Hct (39.6-50.0) % MCH (27.0-32.0) pg MCHC (32.0-37.0) g/dL RDW (11.5-14.5) % MPV (9.5-12.2) FL Immature Gran # (0.00-0.04) X 10*3/uL Neutrophils # (1.80-7.70) X 10*3/uL Eosinophils # (0.04-0.35) X 10*3/uL Chloride 111 H (96-109) mmol/L Carbon Dioxide 20.8 L (21.6-31.8) mmol/L BUN 36.7 H (9.0-27.0) mg/dL BUN/Creatinine Ratio 45.88 H (12.00-20.00) Ratio Glucose 147 H (70-110) mg/dL POC Glucose (mg/dL) 116 H (70-110) mg/dL Calcium 8.0 L (8.7-10.3) mg/dL AST 9 L (14-35) U/L Total Protein 4.3 L (6.2-8.2) g/dL Albumin 2.7 L (3.8-4.9) g/dL Microbiology - Last 24 Hours (Table) 09/11/24 17:50 Gram Stain - Final Sputum Sputum Culture - Final Escherichia coli 09/11/24 14:40 Blood Culture - Preliminary Blood 09/11/24 18:47 Nasal Screen MRSA/MSSA - Final Nasal Swab Assessment and Plan Assessment: Acute left lower lobe pneumonia, likely community-acquired. Procalcitonin 3.78. Sputum culture positive for ESBL E. coli History of recent COVID-19 infection with persistent positive PCR Underlying COPD, severe but seems to be an active Leukocytosis secondary to above Remote history of pulmonary embolism History of CVA/TIA History prostate biopsies Degenerative joint disease History of bullous emphysema and previous volume reduction History of pneumothoraces Type 2 diabetes without complications Plan: The patient was seen and evaluated Chest x-ray, microbiology, labs and medications reviewed Sputum culture positive for ESBL E. coli Antibiotics per ID service Continue bronchodilators, steroids Anticoagulated with Eliquis I have personally seen and examined the patient, performed the documentation and the assessment and plan as written. Number of minutes spent on the visit: 10 Dictation was produced using [employer] dictation software. Please excuse any grammatical, word or spelling errors.
--- NOTE | 2024-09-14 15:15 | PN ---
PROGRESS NOTE DATE OF SERVICE: 09/13/2024 SUBJECTIVE: This is a 74-year-old gentleman admitted with acute multifocal left lobe pneumonia with possible sepsis. He is being closely monitored at this time. The patient had COVID-19 recently. Multiple consultants are following the patient closely. PAST MEDICAL HISTORY: Reviewed. REVIEW OF SYSTEMS: Fourteen-point review is negative. CURRENT MEDICATIONS: Reviewed. PHYSICAL EXAMINATION: VITAL SIGNS: Pulse is 68, blood pressure n, and respirations 17. HEENT: Conjunctivae normal. NECK: No JVD. CARDIOVASCULAR: S1 and S2. RESPIRATIONS: Few scattered rhonchi. ABDOMEN: Soft. NERVOUS SYSTEM: Nonfocal. LABORATORY DATA: Reviewed. ASSESSMENT: 1. Acute multifocal left lower lobe pneumonia with extensive left-sided pneumonia with possible sepsis, present on admission with possibly gram-negative pneumonia. 2. Elevated WBC. 3. Elevated plasma lactic acid. 4. COVID-19 recently. 5. Chronic obstructive pulmonary disease acute exacerbation. 6. Gastroesophageal reflux disease. 7. Hyperlipidemia. 8. History of pulmonary embolus. 9. History of coronary artery disease, stent. RECOMMENDATIONS AND DISCUSSION: Recommend to continue current medications and symptomatic treatment. Otherwise, I would recommend repeat chest x-ray and closely follow up with multiple consultants. Guarded prognosis because of multiple complex medical issues. Continue with antibiotics. Closely follow with multiple consultants. Bronchodilators. Discussed with the patient. The patient is on cefepime and Vanco. Further recommendations to follow. MMODL / IJN: [id number] / MTDD
[2024-09-14] MEDS: ERTAPENEM 1 GM in SODIUM CHLORIDE 0.9% 50 ML IVPB SCH (15:34)
[2024-09-14 16:09] LABS: Glucose,Whole Blood 128 mg/dL (70-110)
[2024-09-14 20:59] LABS: Glucose,Whole Blood 147 mg/dL (70-110)
[2024-09-15 06:29] LABS: Glucose,Whole Blood 114 mg/dL (70-110)
--- NOTE | 2024-09-15 06:53 | PN ---
PROGRESS NOTE DATE OF SERVICE: 09/14/2024 SUBJECTIVE: This is a 74-year-old gentleman who was admitted with significant pneumonia of the left side, is improving significantly. No chest pain. No palpitations. No fever. OBJECTIVE: VITAL SIGNS: Pulse is 62, blood pressure is 130/53, respirations 18. CHEST: A few scattered rhonchi and crackles. ABDOMEN: Soft. NERVOUS SYSTEM: Nonfocal. LABORATORY DATA: Reviewed. ASSESSMENT: 1. Acute multifocal left lower lobe pneumonia, extensive with left-sided pneumonia with possible sepsis present on admission with possible gram-negative pneumonia. 2. Elevated WBC. 3. Elevated plasma lactic acid. 4. COVID-19 recently. 5. Chronic obstructive pulmonary disease exacerbation. 6. Gastroesophageal reflux disease. 7. Multiple complex medical issues. RECOMMENDATIONS AND DISCUSSION: Recommend to continue current management and continue symptomatic treatment. Otherwise, repeat labs. Continue with antibiotics. Possible discharge in the next 24 hours. Closely follow with Pulmonary. Guarded prognosis. Further recommendations to follow. MMODL / IJN: [id number] /
--- NOTE | 2024-09-15 08:32 | P.PN ---
Subjective Progress Note Date: 09/14/24 Principal diagnosis: Reason for follow-up is pneumonia Patient is a 74-year-old male with a past medical history significant for COPD, CVA/TIA, Diabetes Mellitus, GERD/Reflux, Hearing Disorder / Deafness, Hyperlipidemia, Myocardial Infarction ([place]), Musculoskeletal Disorder, Osteoarthritis (OA), Pneumonia, Prostate Disorder, Pulmonary Embolus (PE), Respiratory Disorder and recently did have a COVID-19 about 6 weeks ago presenting to the hospital for evaluation of increasing shortness of breath and cough, patient be diagnosed with extensive pneumonia. On today's evaluation that is 09/14/2024,the patient remains to be afebrile, patient is on room air not requiring supplemental oxygen and denies any shortness of breath no chest pain patient cough is decreased in intensity mostly dry in nature.Patient denies having any nausea or vomiting, no abdominal pain and no diarrhea has been reported. Patient white count is down to 11.24 creatinine is 0.8 sputum with blood growing ESBL E. coli Objective - Vital Signs Vital signs: Vital Signs Temp 97.1 F L 09/14/24 07:51 Pulse 60 09/14/24 07:51 Resp 18 09/14/24 07:51 BP 167/95 09/14/24 07:51 Pulse Ox 93 L 09/14/24 07:51 FiO2 Intake & Output 09/13/24 09/14/24 09/14/24 18:59 06:59 18:59 Weight 83 kg Other: Voiding Method Toilet Toilet Toilet Diaper Diaper # Voids 3 - Exam GENERAL DESCRIPTION: An elderly male lying in bed in no distress RESPIRATORY SYSTEM: Unlabored breathing , coarse breath sound left base, no wheeze HEART: S1 S2 regular rate and rhythm , ABDOMEN: Soft , no tenderness EXTREMITIES: No edema feet - Labs CBC & Chem 7: 09/14/24 03:34 09/14/24 03:34 Labs: Abnormal Lab Results - Last 24 Hours (Table) 09/13/24 09/13/24 09/13/24 Range/Units 11:34 16:23 22:24 WBC (4.50-10.00) X 10*3/uL RBC (4.40-5.60) X 10*6/uL Hgb (13.0-17.0) g/dL Hct (39.6-50.0) % MCH (27.0-32.0) pg MCHC (32.0-37.0) g/dL RDW (11.5-14.5) % MPV (9.5-12.2) FL Immature Gran # (0.00-0.04) X 10*3/uL Neutrophils # (1.80-7.70) X 10*3/uL Eosinophils # (0.04-0.35) X 10*3/uL Chloride (96-109) mmol/L Carbon Dioxide (21.6-31.8) mmol/L BUN (9.0-27.0) mg/dL BUN/Creatinine Ratio (12.00-20.00) Ratio Glucose (70-110) mg/dL POC Glucose (mg/dL) 143 H 163 H 148 H (70-110) mg/dL Calcium (8.7-10.3) mg/dL AST (14-35) U/L Total Protein (6.2-8.2) g/dL Albumin (3.8-4.9) g/dL 09/14/24 09/14/24 09/14/24 Range/Units 03:34 03:34 06:02 WBC 11.24 H (4.50-10.00) X 10*3/uL RBC 4.26 L (4.40-5.60) X 10*6/uL Hgb 11.4 L (13.0-17.0) g/dL Hct 37.3 L (39.6-50.0) % MCH 26.8 L (27.0-32.0) pg MCHC 30.6 L (32.0-37.0) g/dL RDW 16.6 H (11.5-14.5) % MPV 9.4 L (9.5-12.2) FL Immature Gran # 0.08 H (0.00-0.04) X 10*3/uL Neutrophils # 9.16 H (1.80-7.70) X 10*3/uL Eosinophils # 0.03 L (0.04-0.35) X 10*3/uL Chloride 111 H (96-109) mmol/L Carbon Dioxide 20.8 L (21.6-31.8) mmol/L BUN 36.7 H (9.0-27.0) mg/dL BUN/Creatinine Ratio 45.88 H (12.00-20.00) Ratio Glucose 147 H (70-110) mg/dL POC Glucose (mg/dL) 116 H (70-110) mg/dL Calcium 8.0 L (8.7-10.3) mg/dL AST 9 L (14-35) U/L Total Protein 4.3 L (6.2-8.2) g/dL Albumin 2.7 L (3.8-4.9) g/dL Microbiology - Last 24 Hours (Table) 09/11/24 14:40 Blood Culture - Preliminary Blood 09/11/24 18:47 Nasal Screen MRSA/MSSA - Final Nasal Swab 09/11/24 17:50 Gram Stain - Preliminary Sputum Sputum Culture - Preliminary Gram Neg Bacilli Assessment and Plan (1) Leukocytosis Current Visit: Yes Status: Acute Code(s): D72.829 - ELEVATED WHITE BLOOD CELL COUNT, UNSPECIFIED SNOMED Code(s): 948196124 (2) History of COVID-19 Current Visit: Yes Status: Acute Code(s): Z86.16 - PERSONAL HISTORY OF COVID-19 SNOMED Code(s): 037840018654660220 (3) Pneumonia Current Visit: Yes Status: Acute Code(s): J18.9 - PNEUMONIA, UNSPECIFIED ORGANISM SNOMED Code(s): 736819022 Plan: 1patient presented to hospital with increasing shortness of breath cough sputum production in this patient who did have evidence of multifocal pneumonia on the left lung patient did have a COVID-19 about 6 weeks ago and concerning for possible resistant gram-positive/gram-negative infection post COVID-19 pneumonia. 2patient did have elevated procalcitonin level and sputum culture currently growing ESBL E. coli 3we will discontinue the cefepime start the patient on Invanz 1 g daily with an additional course of IV Invanz on discharge Dictation was produced using [employer] software. please excuse any grammatical, word or spelling errors. Time with Patient: Less than 30
[2024-09-15] MEDS: predniSONE 20 MG TAB PO SCH (08:35)
[2024-09-15 09:01] LABS: Blood Urea Nitrogen 21.7 mg/dL (9.0-27.0); Calcium 8.3 mg/dL (8.7-10.3); Carbon Dioxide 23.1 mmol/L (21.6-31.8); Chloride 108 mmol/L (96-109); Glucose 116 mg/dL (70-110); Potassium 3.8 mmol/L (3.5-5.5); Sodium 139 mmol/L (135-145)
[2024-09-15 10:29] LABS: Basophils # (A) 0.02 X 10*3/uL (0.00-0.10); Basophils % (A) 0.3 %; Eosinophils # (A) 0.09 X 10*3/uL (0.04-0.35); Eosinophils % (A) 1.1 %; HCT 37.1 % (39.6-50.0); HGB 11.5 g/dL (13.0-17.0); Lymphocytes # (A) 1.13 X 10*3/uL (0.90-5.00); Lymphocytes % (A) 14.3 %; MCH 26.5 pg (27.0-32.0); MCV 85.5 FL (80.0-97.0); Mean Platelet Volume 10.1 FL (9.5-12.2); Monocytes # (A) 0.55 X 10*3/uL (0.20-1.00); NRBC Per 100 WBC 0 X 10*3/uL (0.00-0.01); Neutrophils # (A) 6.07 X 10*3/uL (1.80-7.70); Neutrophils % (A) 76.7 %; Platelet Count 191 X 10*3/uL (140-440); RBC 4.34 X 10*6/uL (4.40-5.60); WBC 7.91 X 10*3/uL (4.50-10.00)
[2024-09-15 11:59] LABS: Glucose,Whole Blood 137 mg/dL (70-110)
--- NOTE | 2024-09-15 12:45 | P.PN ---
Subjective Progress Note Date: 09/15/24 This is a 74-year-old white male familiar to my service, known history of multiple medical problems including severe COPD/emphysema, history of pneumothoraces, history of CVA, diabetes, GERD, hearing disorder, dyslipidemia, previous GA, degenerative joint disease, pneumonia, prostate disorder, patient had recent COVID-19 infection about 3 weeks ago, and since then the patient has not been doing well. He is to have intermittent cough, shortness of breath, wheezing, purulent sputum, but no hemoptysis, no chest pain, no nausea, no vomiting. Patient was brought into the ER yesterday, and his O2 saturation was 90% on room air, chest x-ray showed extensive left lower lobe infiltrate, patient had leukocytosis with WBC count of 25.4, there was also a left shift, repeat COVID test came back positive again, CT angiogram of the chest showed no evidence of pulmonary embolism but did show consolidation within the left lower lobe and small lesion within the left upper lobe consistent with multifocal pne umonia. Patient was initiated on Rocephin and Zithromax, and he was seen by infectious disease on consultation. We were also asked to see the patient in consultation, resume the patient on his usual bronchodilators, infectious disease has recommended broadening the spectrum of his antibiotics coverage, he is now on Rocephin and vancomycin empirically. This is mostly because of the patient recent courses of antibiotics that he received on outpatient basis by his primary care and his underlying illnesses/severe COPD labs revealed leukocytosis with WBC count of 15.5 hemoglobin is 13.7. Patient had relatively normal electrolytes, normal renal profile, troponin level is normal, procalcitonin level is pending The patient is seen today September 13, 2024 in follow-up on the regular medical floor. He is currently sitting up in a chair at the bedside. Awake and alert in no acute distress. Feeling better today compared to yesterday. He is maintaining good O2 saturations in the 90s on room air. Afebrile. Hemodynamically stable. Creatinine 0.71. GFR greater than 90. Glucose 161. P rocalcitonin 3.78. He remains on vancomycin and cefepime. Anticoagulated with Eliquis. Remains on Symbicort, albuterol, Spiriva. The patient is seen today September 14, 2024 in follow-up on the regular medical floor. He is currently sitting up at the bedside. Awake and alert in no acute distress. Denies any worsening shortness of breath, cough or congestion. He is maintaining O2 saturations in the 90s on room air. Chest x-ray is showing improvement in the left lower lobe infiltrate. He remains on cefepime. Continued on bronchodilators and steroids. Anticoagulated with Eliquis. His sputum culture was positive for ESBL E. coli. Blood cultures showed no growth. White count 11.2. Hemoglobin 11.4. Platelets 202. Sodium 140. Potassium 4.0. Bicarb 21. BUN 37. Creatinine 0.8. Glucose 147. The patient is seen today September 15, 2024 in follow-up on the regular medical floor. He is awake and alert in no acute distress. Continues to maintain good O2 saturations in the 90s on room air. He has been afebrile. Hemodynamically stable. Sputum cultures positive for ESBL E. coli. Blood culture revealed no growth. 1.9. Hemoglobin 11.5. Platelets 191. Sodium 139. Potassium 3.8. Bicarb 23. BUN 22. Creatinine 0.7. Glucose 116. He is currently on ertapenem per ID service. Objective - Vital Signs Vital signs: Vital Signs Temp 98.4 F 09/15/24 08:16 Pulse 67 09/15/24 08:16 Resp 17 09/15/24 08:16 BP 147/95 09/15/24 08:16 Pulse Ox 90 L 09/15/24 08:16 FiO2 Intake & Output 09/14/24 09/15/24 09/15/24 18:59 06:59 18:59 Weight 83 kg Other: Voiding Method Toilet Toilet # Voids 2 1 2 # Bowel Movements 1 1 - Exam GENERAL EXAM: Alert, 74-year-old male, resting comfortably in bed, on room air, in no apparent distress. HEAD: Normocephalic. EYES: Normal reaction of pupils, equal size. NOSE: Clear with pink turbinates. THROAT: No erythema or exudates. NECK: No masses, no JVD. CHEST: No chest wall deformity. LUNGS: Equal air entry with few rhonchi over the left lung base. CVS: S1 and S2 normal with no audible murmur, regular rhythm. ABDOMEN: No hepatosplenomegaly, normal bowel sounds, no guarding or rigidity. SPINE: No scoliosis or deformity SKIN: No rashes CENTRAL NERVOUS SYSTEM: No focal deficits, tone is normal in all 4 extremities. EXTREMITIES: There is no peripheral edema. No clubbing, no cyanosis. Peripheral pulses are intact. - Labs CBC & Chem 7: 09/15/24 03:38 09/15/24 03:38 Labs: Abnormal Lab Results - Last 24 Hours (Table) 09/14/24 09/14/24 09/15/24 Range/Units 16:07 20:58 03:38 RBC 4.34 L (4.40-5.60) X 10*6/uL Hgb 11.5 L (13.0-17.0) g/dL Hct 37.1 L (39.6-50.0) % MCH 26.5 L (27.0-32.0) pg MCHC 31.0 L (32.0-37.0) g/dL RDW 16.0 H (11.5-14.5) % Immature Gran # 0.05 H (0.00-0.04) X 10*3/uL BUN/Creatinine Ratio (12.00-20.00) Ratio Glucose (70-110) mg/dL POC Glucose (mg/dL) 128 H 147 H (70-110) mg/dL Calcium (8.7-10.3) mg/dL 09/15/24 09/15/24 09/15/24 Range/Units 03:38 06:27 11:55 RBC (4.40-5.60) X 10*6/uL Hgb (13.0-17.0) g/dL Hct (39.6-50.0) % MCH (27.0-32.0) pg MCHC (32.0-37.0) g/dL RDW (11.5-14.5) % Immature Gran # (0.00-0.04) X 10*3/uL BUN/Creatinine Ratio 31.00 H (12.00-20.00) Ratio Glucose 116 H (70-110) mg/dL POC Glucose (mg/dL) 114 H 137 H (70-110) mg/dL Calcium 8.3 L (8.7-10.3) mg/dL Microbiology - Last 24 Hours (Table) 09/11/24 14:40 Blood Culture - Preliminary Blood 09/11/24 17:50 Gram Stain - Final Sputum Sputum Culture - Final Escherichia coli Assessment and Plan Assessment: Acute left lower lobe pneumonia, likely community-acquired. Procalcitonin 3.78. Sputum culture positive for ESBL E. coli. Currently on ertapenem History of recent COVID-19 infection with persistent positive PCR Underlying COPD, severe but seems to be an active Leukocytosis secondary to above Remote history of pulmonary embolism History of CVA/TIA History prostate biopsies Degenerative joint disease History of bullous emphysema and previous volume reduction History of pneumothoraces Type 2 diabetes without complications Plan: The patient was seen and evaluated Labs and medications reviewed Currently on ertapenem Continue bronchodilators, steroids Will need PICC line placed Home once cleared by infectious disease I have personally seen and examined the patient, performed the documentation and the assessment and plan as written. Number of minutes spent on the visit: 10 Dictation was produced using [employer] dictation software. Please excuse any grammatical, word or spelling errors.
--- NOTE | 2024-09-15 14:24 | P.PN ---
Subjective Progress Note Date: 09/15/24 Principal diagnosis: Reason for follow-up is pneumonia Patient is a 74-year-old male with a past medical history significant for COPD, CVA/TIA, Diabetes Mellitus, GERD/Reflux, Hearing Disorder / Deafness, Hyperlipidemia, Myocardial Infarction ([place]), Musculoskeletal Disorder, Osteoarthritis ([place]), Pneumonia, Prostate Disorder, Pulmonary Embolus ([place]), Respiratory Disorder and recently did have a COVID-19 about 6 weeks ago presenting to the hospital for evaluation of increasing shortness of breath and cough, patient be diagnosed with extensive pneumonia. On today's evaluation that is 09/15/2024, the patient continues to be afebrile, the patient is on room air and breathing comfortably, the Pt denies having any chest pain cough decreased intensity mostly dry in nature no nausea vomiting no abdominal pain or diarrhea. Patient white count 7.91, creatinine 0.7 blood culture has been negative Objective - Vital Signs Vital signs: Vital Signs Temp 98.4 F 09/15/24 08:16 Pulse 67 09/15/24 08:16 Resp 17 09/15/24 08:16 BP 147/95 09/15/24 08:16 Pulse Ox 90 L 09/15/24 08:16 FiO2 Intake & Output 09/14/24 09/15/24 09/15/24 18:59 06:59 18:59 Weight 83 kg Other: Voiding Method Toilet Toilet # Voids 2 1 2 # Bowel Movements 1 1 - Exam GENERAL DESCRIPTION: An elderly male lying in bed in no distress RESPIRATORY SYSTEM: Unlabored breathing , coarse breath sound left base, no wheeze HEART: S1 S2 regular rate and rhythm , ABDOMEN: Soft , no tenderness EXTREMITIES: No edema feet - Labs CBC & Chem 7: 09/15/24 03:38 09/15/24 03:38 Labs: Abnormal Lab Results - Last 24 Hours (Table) 09/14/24 09/14/24 09/15/24 Range/Units 16:07 20:58 03:38 RBC 4.34 L (4.40-5.60) X 10*6/uL Hgb 11.5 L (13.0-17.0) g/dL Hct 37.1 L (39.6-50.0) % MCH 26.5 L (27.0-32.0) pg MCHC 31.0 L (32.0-37.0) g/dL RDW 16.0 H (11.5-14.5) % Immature Gran # 0.05 H (0.00-0.04) X 10*3/uL BUN/Creatinine Ratio (12.00-20.00) Ratio Glucose (70-110) mg/dL POC Glucose (mg/dL) 128 H 147 H (70-110) mg/dL Calcium (8.7-10.3) mg/dL 09/15/24 09/15/24 09/15/24 Range/Units 03:38 06:27 11:55 RBC (4.40-5.60) X 10*6/uL Hgb (13.0-17.0) g/dL Hct (39.6-50.0) % MCH (27.0-32.0) pg MCHC (32.0-37.0) g/dL RDW (11.5-14.5) % Immature Gran # (0.00-0.04) X 10*3/uL BUN/Creatinine Ratio 31.00 H (12.00-20.00) Ratio Glucose 116 H (70-110) mg/dL POC Glucose (mg/dL) 114 H 137 H (70-110) mg/dL Calcium 8.3 L (8.7-10.3) mg/dL Microbiology - Last 24 Hours (Table) 09/11/24 14:40 Blood Culture - Preliminary Blood 09/11/24 17:50 Gram Stain - Final Sputum Sputum Culture - Final Escherichia coli Assessment and Plan (1) Leukocytosis Current Visit: Yes Status: Acute Code(s): D72.829 - ELEVATED WHITE BLOOD CELL COUNT, UNSPECIFIED SNOMED Code(s): 216903582 (2) History of COVID-19 Current Visit: Yes Status: Acute Code(s): Z86.16 - PERSONAL HISTORY OF C OVID-19 SNOMED Code(s): 446979694977140112 (3) Pneumonia Current Visit: Yes Status: Acute Code(s): J18.9 - PNEUMONIA, UNSPECIFIED ORGANISM SNOMED Code(s): 174389330 Plan: 1patient presented to hospital with increasing shortness of breath cough sputum production in this patient who did have evidence of multifocal pneumonia on the left lung patient did have a COVID-19 about 6 weeks ago and concerning for possible resistant gram-positive/gram-negative infection post COVID-19 pneumonia. 2patient did have elevated procalcitonin level and sputum culture currently growing ESBL E. coli 3patient to continue with Invanz 1 g daily we will order a midline and a short course of IV Invanz on discharge discussed with the therapeutic case manager as well as IRRIGATION FOREMAN for admitting team Dictation was produced using [employer] dictation software. please excuse any grammatical, word or spelling errors. Time with Patient: Less than 30
[2024-09-15 16:57] LABS: Glucose,Whole Blood 198 mg/dL (70-110)
[2024-09-15 20:34] LABS: Glucose,Whole Blood 134 mg/dL (70-110)
[2024-09-16 01:23] VITALS: RESP 17
--- NOTE | 2024-09-16 06:40 | PN ---
PROGRESS NOTE DATE OF SERVICE: 09/15/2024 SUBJECTIVE: This is a 74-year-old gentleman admitted with significant pneumonia of the left side, has ESBL E coli from the sputum. No chest pain. No palpitation. OBJECTIVE: VITAL SIGNS: Pulse is 67, blood pressure 147/94, respirations 17. CHEST: A few scattered rhonchi and crackles. ABDOMEN: Soft. NERVOUS SYSTEM: Nonfocal. LABORATORY DATA: Reviewed. ASSESSMENT: 1. Acute multifocal left lower lobe pneumonia, extensive with left-sided pneumonia with possible sepsis present on admission with extended spectrum beta-lactamase Escherichia coli. 2. Elevated WBC. 3. Elevated plasma lactic acid. 4. COVID-19 recently. 5. Chronic obstructive pulmonary disease acute exacerbation. 6. Gastroesophageal reflux disease. 7. Multiple complex medical issues. RECOMMENDATIONS AND DISCUSSION: I recommend to continue current medications, continue symptomatic treatment. Otherwise, continue with antibiotics. Closely follow with Infectious Disease and Pulmonary. Guarded prognosis. Further recommendations to follow. MMODL / IJN: [id number] /
[2024-09-16 06:54] LABS: Glucose,Whole Blood 136 mg/dL (70-110)
[2024-09-16 08:25] VITALS: BP 150/90; PULSE 67; TEMP 98
[2024-09-16 11:32] LABS: Glucose,Whole Blood 132 mg/dL (70-110)
--- NOTE | 2024-09-16 12:02 | P.PN ---
Subjective Progress Note Date: 09/16/24 Principal diagnosis: Reason for follow-up is pneumonia Patient is a 74-year-old male with a past medical history significant for COPD, CVA/TIA, Diabetes Mellitus, GERD/Reflux, Hearing Disorder / Deafness, Hyperlipidemia, Myocardial Infarction ([place]), Musculoskeletal Disorder, Osteoarthritis ([place]), Pneumonia, Prostate Disorder, Pulmonary Embolus ([place]), Respiratory Disorder and recently did have a COVID-19 about 6 weeks ago presenting to the hospital for evaluation of increasing shortness of breath and cough, patient be diagnosed with extensive pneumonia. On today's evaluation that is 09/16/2024, patient has been afebrile, patient is breathing slightly comfortably and is currently on room air, patient denies having any worsening cough no chest pain, patient denies nausea vomiting or diarrhea and no abdominal pain. No new lab has been obtained today Objective - Vital Signs Vital signs: Vital Signs Temp 98.0 F 09/16/24 08:06 Pulse 67 09/16/24 08:06 Resp 17 09/16/24 08:06 BP 150/90 09/16/24 08:06 Pulse Ox 92 L 09/16/24 08:06 FiO2 Intake & Output 09/15/24 09/16/24 09/16/24 18:59 06:59 18:59 Other: Voiding Method Toilet Toilet Toilet # Voids 2 2 # Bowel Movements 1 - Exam GENERAL DESCRIPTION: An elderly male lying in bed in no distress RESPIRATORY SYSTEM: Unlabored breathing , coarse breath sound left base, no wheeze HEART: S1 S2 regular rate and rhythm , ABDOMEN: Soft , no tenderness EXTREMITIES: No edema feet - Labs CBC & Chem 7: 09/15/24 03:38 09/15/24 03:38 Labs: Abnormal Lab Results - Last 24 Hours (Table) 09/15/24 09/15/24 09/16/24 Range/Units 16:55 20:32 06:52 POC Glucose (mg/dL) 198 H 134 H 136 H (70-110) mg/dL 09/16/24 Range/Units 11:31 POC Glucose (mg/dL) 132 H (70-110) mg/dL Microbiology - Last 24 Hours (Table) 09/11/24 17:50 Legionella Culture - Preliminary Sputum Assessment and Plan (1) Leukocytosis Current Visit: Yes Status: Acute Code(s): D72.829 - ELEVATED WHITE BLOOD CELL COUNT, UNSPECIFIED SNOMED Code(s): 995267533 (2) History of COVID-19 Current Visit: Yes Status: Acute Code(s): Z86.16 - PERSONAL HISTORY OF COVID-19 SNOMED Code(s): 696491106567886944 (3) Pneumonia Current Visit: Yes Status: Acute Code(s): J18.9 - PNEUMONIA, UNSPECIFIED ORGANISM SNOMED Code(s): 104410001 Plan: 1patient presented to hospital with increasing shortness of breath cough sputum production in this patient who did have evidence of multifocal pneumonia on the left lung patient did have a COVID-19 about 6 weeks ago and concerning for possible resistant gram-positive/gram-negative infection post COVID-19 pneumonia. 2patient did have elevated procalcitonin level and sputum culture currently growing ESBL E. coli 3patient did get a midline we will continue with Invanz 1 g daily for 7 days on discharge and close out patient follow-up Dictation was produced using [employer] dictation software. please excuse any grammatical, word or spelling errors. Time with Patient: Less than 30
--- NOTE | 2024-09-16 12:56 | P.PN ---
Subjective Progress Note Date: 09/16/24 Principal diagnosis: Pneumonia. This is a 74-year-old white male familiar to my service, known history of multiple medical problems including severe COPD/emphysema, history of pne umothoraces, history of CVA, diabetes, GERD, hearing disorder, dyslipidemia, previous MA, degenerative joint disease, pneumonia, prostate disorder, patient had recent COVID-19 infection about 3 weeks ago, and since then the patient has not been doing well. He is to have intermittent cough, shortness of breath, wheezing, purulent sputum, but no hemoptysis, no chest pain, no nausea, no vomiting. Patient was brought into the ER yesterday, and his O2 saturation was 90% on room air, chest x-ray showed extensive left lower lobe infiltrate, patient had leukocytosis with WBC count of 25.4, there was also a left shift, repeat COVID test came back positive again, CT angiogram of the chest showed no evidence of pulmonary embolism but did show consolidation within the left lower lobe and small lesion within the left upper lobe consistent with multifocal pneumonia. Patient was initiated on Rocephin and Zithromax, and he was seen by infectious disease on consultation. We were also asked to see the patient in consultation, resume the patient on his usual bronchodilators, infectious disease has recommended broadening the spectrum of his antibiotics coverage, he is now on Rocephin and vancomycin empirically. This is mostly because of the patient recent courses of antibiotics that he received on outpatient basis by his primary care and his underlying illnesses/severe COPD labs revealed isidoro kocytosis with WBC count of 15.5 hemoglobin is 13.7. Patient had relatively normal electrolytes, normal renal profile, troponin level is normal, procalcitonin level is pending The patient is seen today September 13, 2024 in follow-up on the regular medical floor. He is currently sitting up in a chair at the bedside. Awake and alert in no acute distress. Feeling better today compared to yesterday. He is maintaining good O2 saturations in the 90s on room air. Afebrile. Hemodynamically stable. Creatinine 0.71. GFR greater than 90. Glucose 161. Procalcitonin 3.78. He remains on vancomycin and cefepime. Anticoagulated with Eliquis. Remains on Symbicort, albuterol, Spiriva. The patient is seen today September 14, 2024 in follow-up on the regular medical floor. He is currently sitting up at the bedside. Awake and alert in no acute distress. Denies any worsening shortness of breath, cough or congestion. He is maintaining O2 saturations in the 90s on room air. Chest x-ray is showing improvement in the left lower lobe infiltrate. He remains on cefepime. Continued on bronchodilators and steroids. Anticoagulated with Eliquis. His sputum culture was positive for ESBL E. coli. Blood cultures showed no growth. White count 11.2. Hemoglobin 11.4. Platelets 202. Sodium 140. Potassium 4.0. Bicarb 21. BUN 37. Creatinine 0.8. Glucose 147. The patient is seen today September 15, 2024 in follow-up on the regular medical floor. He is awake and alert in no acute distress. Continues to maintain good O2 saturations in the 90s on room air. He has been afebrile. Hemodynamically stable. Sputum cultures positive for ESBL E. coli. Blood culture revealed no growth. 1.9. Hemoglobin 11.5. Platelets 191. Sodium 139. Potassium 3.8. Bicarb 23. BUN 22. Creatinine 0.7. Glucose 116. He is currently on ertapenem per ID service. Progress note dated September 16, 2024. This is a 74-year-old male who was seen in room 462. The patient was discovered to have ESBL E. coli, and is currently on ertapenem. His cultures were positive in the sputum. Currently, he is on room air. He is not receiving any IV fluids. He did receive a PICC line, for home antibiotics. He is awake and alert. In no distress. Laboratory data includes a glucose of 132. Objective - Vital Signs Vital signs: Vital Signs Temp 98.0 F 09/16/24 08:06 Pulse 67 09/16/24 08:06 Resp 17 09/16/24 08:06 BP 150/90 09/16/24 08:06 Pulse Ox 92 L 09/16/24 08:06 FiO2 Intake & Output 09/15/24 09/16/24 09/16/24 18:59 06:59 18:59 Other: Voiding Method Toilet Toilet Toilet # Voids 2 2 # Bowel Movements 1 - Exam No acute distress, oriented 3. He on room air. No respiratory distress. HEENT examination is grossly unremarkable. Mucous membranes are moist. No oral lesions. Neck supple. Full range of motion. No adenopathy thyromegaly or neck vein distention. Cardiovascular examination reveals regular rhythm rate. S1-S2 normal. No S3 or S4. No discernible murmur noted. Heart sounds are distant. Lungs reveal scattered bilateral right greater than left rhonchi, without wheezes or crackles. Breath sounds are diminished throughout. Abdomen soft bowel sounds are heard. No masses or tenderness. Extremities are intact. No cyanosis clubbing or edema. Skin is without rash or lesion. Neurologic examination is brief but nonfocal. - Labs CBC & Chem 7: 09/15/24 03:38 09/15/24 03:38 Labs: Abnormal Lab Results - Last 24 Hours (Table) 09/15/24 09/15/24 09/16/24 Range/Units 16:55 20:32 06:52 POC Glucose (mg/dL) 198 H 134 H 136 H (70-110) mg/dL 09/16/24 Range/Units 11:31 POC Glucose (mg/dL) 132 H (70-110) mg/dL Microbiology - Last 24 Hours (Table) 09/11/24 17:50 Legionella Culture - Preliminary Sputum Assessment and Plan Assessment: Acute left lower lobe pneumonia, likely community-acquired. ESBL Escherichia coli pneumonia. History of recent COVID-19 infection with persistent positive PCR. Underlying COPD, severe. Leukocytosis secondary to above. Remote history of pulmonary embolism. History of CVA/TIA. History prostate biopsies. Degenerative joint disease. History of bullous emphysema and previous volume reduction. History of pneumothoraces. Type 2 diabetes without complications. Plan: Plan dated September 16, 2024. The patient is seen today in room 462. The patient will likely be discharged, with home IV antibiotics, that is, ertapenem. The patient sputum tested positive for ESBL Escherichia coli. Labs, x-rays, medications are reviewed. The patient will follow-up with my partner, in our office. No additional recommendations are made. Prognosis is guarded. Time with Patient: Less than 30
--- NOTE | 2024-09-18 08:39 | P.DS ---
Providers Date of admission: 09/11/24 15:15 Expected date of discharge: 09/16/24 Attending physician: Leandra Miramontes Consults: 09/11/24 15:26 Consult Physician Urgent Consulting Provider: Clark Gastelum Consult Reason/Comments: Pneumonia Do you want consulting provider notified?: Yes 09/11/24 15:33 Consult Physician Urgent Consulting Provider: Toni Hoffman Consult Reason/Comments: Pneumonia, sepsis Do you want consulting provider notified?: Yes Primary care physician: Dyana Giordano Hospital Course: Final diagnosis Acute multifocal left lower lobe pneumonia, extensive with left-sided pneumonia with sepsis, present on admission with extended spectrum beta-lactamase E. coli Leukocytosis, secondary to above Elevated lactic acid, improved Recent COVID-19 infection COPD, acute exacerbation GERD GI prophylaxis DVT prophylaxis Full code Discharge disposition Patient is being discharged in a stable condition with guarded prognosis to home. Patient will follow-up with Dr. Giordano in the outpatient setting upon discharge. Patient is to continue with IV antibiotics in the form of Invanz and close outpatient follow-up with pulmonary and infectious disease as scheduled. Total time taken is greater than 35 minutes. Hospital course This is a 74-year-old male who was recently admitted with increased shortness of breath found to have multifocal left lower lobe pneumonia with features of sepsis, present on admission. Patient's culture finalized showing ESBL with E. coli and maintained on IV antibiotics with infectious disease and pulmonary following. Patient showing some improvements and has as needed oxygen at home as needed and will be continued on breathing inhalational treatments. Patient will receive a PICC line and case management following arranging for IV Invanz for 1 week on discharge. Patient will follow-up with pulmonary along with primary care provider and infectious disease outpatient. Patient has been cleared by consultations and would like to go home. Please refer to other consultation notes for further HPI. Currently no reports of chest pain, shortness of breath, or palpitations. Patient is afebrile. No reports of nausea or vomiting and patient is tolerating diet. Patient will be discharged home today. Guarded prognosis Physical exam: Gen: This is a 74-year-old male who is awake, alert and oriented x 3, well- developed, elderly appearing HEENT: Head is atraumatic, normocephalic. Pupils equal, round. Sclerae is anicteric. NECK: Supple. No JVD. No lymphadenopathy. No thyromegaly. LUNGS: Diminished breath sounds bilaterally otherwise clear to auscultation. No wheezes or rhonchi. No intercostal retractions. HEART: Regular rate and rhythm. No murmur. ABDOMEN: Soft. Bowel sounds are present. No masses. No tenderness. EXTREMITIES: No pedal edema. No calf tenderness. NEUROLOGICAL: Patient is awake, alert and oriented x3. Cranial nerves 2 through 12 are grossly intact. Please refer to medication reconciliation sheet for a list of medications. The impression and plan of care has been dictated by Ying Purdy, Nurse Practitioner as directed. Dr. Kulwinder MD I have performed a history and examination and MDM of this patient, discussed the same with the dictator, and agree with the dictator's assessment and plan as written ,documented as a scribe. Based on total visit time, I have performed more than 50% of the visit. Patient Condition at Discharge: Fair Plan - Discharge Summary Discharge Rx Participant: No New Discharge Prescriptions: New Sucralfate [Carafate] 1 gm PO AC-TID #90 tab Docusate [Colace] 100 mg PO BID #60 cap Ertapenem [INVanz] 1 gm IVPB DAILY@1200 7 Days #7 each Metoprolol Tartrate [Lopressor] 25 mg PO BID 30 Days #60 tab predniSONE See Taper PO DIRECTED #30 tab Acetaminophen Tab [Tylenol] 650 mg PO Q6HR PRN tab PRN Reason: Mild Pain Or Fever > 100.5 Continue Gabapentin 1,200 mg PO HS ALPRAZolam [Xanax] 1 mg PO HS Fluticasone/Umeclidin/Vilanter [Trelegy Ellipta 100-62.5-25] 1 puff INHALATION RT-DAILY Losartan [Cozaar] 50 mg PO DAILY #90 tab Apixaban [Eliquis] 5 mg PO DAILY Ezetimibe [Zetia] 10 mg PO DAILY traZODone HCL [Desyrel] 200 mg PO HS Isosorbide Mononitrate ER [Imdur] 30 mg PO DAILY Albuterol Inhaler [Ventolin Hfa Inhaler] 2 puff INHALATION RT-Q4H PRN PRN Reason: Shortness Of Breath Albuterol Nebulized [Ventolin Nebulized] 2.5 mg INHALATION RT-QID PRN PRN Reason: Shortness Of Breath Butalbital/Acetaminophen 50-325mg 1 - 2 tab PO Q4H PRN PRN Reason: Migraine Headache Gabapentin 600 mg PO DAILY Pantoprazole Sodium [Protonix] 40 mg PO BID rOPINIRole HCL [Requip] 0.5 mg PO BID Clopidogrel Bisulfate [Clopidogrel] 75 mg PO DAILY metFORMIN HCL 1,000 mg PO BID Empagliflozin [Jardiance] 10 mg PO DAILY Fluticasone Propion/Salmeterol [Wixela 250-50 Inhub] 1 puff INHALATION RT-BID PRN PRN Reason: Shortness Of Breath Budesonide/Formoterol Fumarate [Symbicort 80-4.5 Mcg Inhaler] 2 puff INHALATION RT-BID PRN PRN Reason: Shortness Of Breath Atorvastatin [Lipitor] 40 mg PO HS HYDROcodone/APAP 7.5-325MG [[place] 7.5-325] 1 tab PO TID Famotidine 40 mg PO HS Suvorexant [Belsomra] 10 mg PO HS Discontinued Hydrocortisone [Cortef] 30 mg PO DAILY Metoprolol Tartrate [Lopressor] 12.5 mg PO DAILY Cephalexin [Keflex] 500 mg PO DAILY Discharge Medication List Gabapentin 1,200 mg PO HS 04/09/16 [History] ALPRAZolam [Xanax] 1 mg PO HS 03/25/20 [History] Fluticasone/Umeclidin/Vilanter [Trelegy Ellipta 100-62.5-25] 1 puff INHALATION RT-DAILY 10/25/21 [History] Gabapentin 600 mg PO DAILY 09/17/22 [History] Pantoprazole Sodium [Protonix] 40 mg PO BID 09/17/22 [History] Losartan [Cozaar] 50 mg PO DAILY #90 tab 09/18/22 [Rx] Apixaban [Eliquis] 5 mg PO DAILY 05/17/23 [History] Budesonide/Formoterol Fumarate [Symbicort 80-4.5 Mcg Inhaler] 2 puff INHALATION RT-BID PRN 05/17/23 [History] Clopidogrel Bisulfate [Clopidogrel] 75 mg PO DAILY 05/17/23 [History] Empagliflozin [Jardiance] 10 mg PO DAILY 05/17/23 [History] Ezetimibe [Zetia] 10 mg PO DAILY 05/17/23 [History] Fluticasone Propion/Salmeterol [[place] 250-50 Inhub] 1 puff INHALATION RT-BID PRN 05/17/23 [History] metFORMIN HCL 1,000 mg PO BID 05/17/23 [History] rOPINIRole HCL [Requip] 0.5 mg PO BID 05/17/23 [History] traZODone HCL [Desyrel] 200 mg PO HS 05/17/23 [History] Albuterol Inhaler [Ventolin Hfa Inhaler] 2 puff INHALATION RT-Q4H PRN 01/23/24 [History] Atorvastatin [Lipitor] 40 mg PO HS 01/23/24 [History] Famotidine 40 mg PO HS 01/23/24 [History] HYDROcodone/APAP 7.5-325MG [[place] 7.5-325] 1 tab PO TID 01/23/24 [History] Isosorbide Mononitrate ER [Imdur] 30 mg PO DAILY 01/23/24 [History] Albuterol Nebulized [Ventolin Nebulized] 2.5 mg INHALATION RT-QID PRN 09/11/24 [History] Suvorexant [Belsomra] 10 mg PO HS 09/11/24 [History] Butalbital/Acetaminophen 50-325mg 1 - 2 tab PO Q4H PRN 09/14/24 [History] Acetaminophen Tab [Tylenol] 650 mg PO Q6HR PRN tab 09/16/24 [Rx] Docusate [Colace] 100 mg PO BID #60 cap 09/16/24 [Rx] Ertapenem [INVanz] 1 gm IVPB DAILY@1200 7 Days #7 each 09/16/24 [Rx] Metoprolol Tartrate [Lopressor] 25 mg PO BID 30 Days #60 tab 09/16/24 [Rx] Sucralfate [Carafate] 1 gm PO AC-TID #90 tab 09/16/24 [Rx] predniSONE See Taper PO DIRECTED #30 tab 09/16/24 [Rx] Follow up Appointment(s)/Referral(s): Dyana Giordano MD [Primary Care Provider] - 09/22/24 11:00 am [facility] [NON-STAFF] - As Needed Toni Hoffman MD [STAFF PHYSICIAN] - 09/21/24 3:15 pm Maximo Rascon MD [STAFF PHYSICIAN] - 1 Week (Pt to make self appt. ) Patient Instructions/Handouts: Pneumonia (DC) Activity/Diet/Wound Care/Special Instructions: Activity limited until follow-up Follow-up with infectious disease outpatient Continue with IV antibiotics per ID recommendations for 1 week Follow-up with pulmonary outpatient Follow-up primary care provider on discharge continue prednisone taper Discharge Disposition: HOME SELF-CARE
== END 2024-09-16 14:00 | disposition home or self-care (01) | DRG 871 ==
LOC: EC 11:44 → 3SCARD 15:15 → 4SSUR 09-12 18:54
PROVIDERS: ADMIT Hospitalist; ATTEND Hospitalist
PROC: 05HF33Z Insertion of Infusion Device into Left Cephalic Vein, Percutaneous Approach (ICD-10-PCS; principal; 2024-09-15 12:00)
DX: A41.51 Sepsis due to Escherichia coli [E. coli] (principal); J15.5 Pneumonia due to Escherichia coli; E27.40 Unspecified adrenocortical insufficiency; J44.1 Chronic obstructive pulmonary disease with (acute) exacerbation; J44.0 Chronic obstructive pulmonary disease with (acute) lower respiratory infection; Z16.12 Extended spectrum beta lactamase (ESBL) resistance; E87.20 Acidosis, unspecified; E78.5 Hyperlipidemia, unspecified; I10 Essential (primary) hypertension; G25.81 Restless legs syndrome; I25.10 Atherosclerotic heart disease of native coronary artery without angina pectoris; Z86.16 Personal history of COVID-19; Z87.891 Personal history of nicotine dependence; K21.9 Gastro-esophageal reflux disease without esophagitis; E11.9 Type 2 diabetes mellitus without complications; H91.90 Unspecified hearing loss, unspecified ear; K44.9 Diaphragmatic hernia without obstruction or gangrene; I25.2 Old myocardial infarction; J43.9 Emphysema, unspecified; M19.90 Unspecified osteoarthritis, unspecified site; N40.0 Benign prostatic hyperplasia without lower urinary tract symptoms; Z79.01 Long term (current) use of anticoagulants; Z79.02 Long term (current) use of antithrombotics/antiplatelets; Z79.51 Long term (current) use of inhaled steroids; Z79.84 Long term (current) use of oral hypoglycemic drugs; Z79.899 Other long term (current) drug therapy; Z86.711 Personal history of pulmonary embolism; Z86.73 Personal history of transient ischemic attack (TIA), and cerebral infarction without residual deficits; Z95.5 Presence of coronary angioplasty implant and graft; Z99.81 Dependence on supplemental oxygen; Z90.2 Acquired absence of lung [part of]
CPT/HCPCS: 36410; 36415; 71045; 71046; 71275; 76937; 80048; 80053; 81003; 82565; 83036; 83605; 83735; 83880; 84145; 84484; 85025; 85379; 85610; 85730; 86140; 87040; 87070; 87077; 87186; 87205; 87449; 87636; 93005; 93306; 94640; 96361; 96374; 96375; 96376; 99285

== ENCOUNTER → 2024-09-28 | Outpatient (CLI) | payer MEDICARE, OTHER ==
[2024-09-28 09:20] LABS: African American GFR (CKD) >90 (>60 ml/min/1.73 sqM); Blood Urea Nitrogen 14 mg/dL (9-20); Non-African American GFR(CKD) 86 (>60 ml/min/1.73 sqM)
--- NOTE | 2024-09-28 10:55 | CT ---
EXAMINATION TYPE: CT chest wo/w con CT DLP: 1079 mGycm, Automated exposure control for dose reduction was used. DATE OF EXAM: 09/28/2024 10:43 AM COMPARISON: CTA chest 09/11/2024, CT chest 04/17/2024 CLINICAL INDICATION:Male, 74 years old with history of R91.8 OTHER NONSPECIFIC ABNORMAL FINDING OF KAITY NG F; PHH, Recent hx PNE, E-coli infection in lungs TECHNIQUE: Multiple axial images were obtained through the chest before and after the uneventful admi nistration of 100 mL of Isovue-370 intravenously . Coronal and sagittal reformats reviewed. FINDINGS: LUNGS/ PLEURA: No pneumothorax or pleural effusion. Near complete resolution of previously demonstrat ed left lower lobe airspace opacities with some residual subpleural reticular opacities. Resolution o f previously demonstrated opacities within the left upper lung. Moderate centrilobular and paraseptal emphysematous changes with large bullous emphysematous changes within the bilateral upper lobes. AIRWAY: Patent and unremarkable.. HEART: Size within normal limits.Trace pericardial effusion. Coronary artery calcifications. MEDIASTINUM: No enlarged mediastinal or hilar lymph nodes. VASCULATURE: No aortic aneurysm. Mild atherosclerotic calcification of the aorta and its branches. MUSCULOSKELETAL: No acute osseous abnormalities SOFT TISSUES/LYMPH NODES: Unremarkable. LOWER NECK: No significant findings. UPPER ABDOMEN: Small to moderate-sized hernia redemonstrated. Stable left lateral hepatic lobe hypode nse lesions dating back to at least 2019 consider benign due to stability. IMPRESSION: 1. Near complete resolution of previously demonstrated left lung pneumonia with some residual reticu lar subpleural opacities. 2. Moderate to severe emphysematous changes with bullous emphysematous changes within the bilateral upper lobes. 3. Small to moderate size hiatal hernia redemonstrated. [facility], , 09/28/2024 10:52 AM
== END | disposition home or self-care (01) ==
LOC: RADCTMAIN 08:02
PROVIDERS: ATTEND Family Medicine
DX: J43.9 Emphysema, unspecified (principal); K44.9 Diaphragmatic hernia without obstruction or gangrene; R91.8 Other nonspecific abnormal finding of lung field; J18.9 Pneumonia, unspecified organism; I70.0 Atherosclerosis of aorta; I31.39 Other pericardial effusion (noninflammatory); B96.29 Other Escherichia coli [E. coli] as the cause of diseases classified elsewhere
CPT/HCPCS: 82565; 84520; 71270; 36415; Q9967

== ENCOUNTER → 2024-10-15 | Outpatient (CLI) | payer OTHER ==
[2024-10-15 15:01] LABS: Basophils # (A) 0.07 X 10*3/uL (0.00-0.10); Basophils % (A) 0.6 %; Eosinophils # (A) 0.16 X 10*3/uL (0.04-0.35); Eosinophils % (A) 1.4 %; HCT 46.5 % (39.6-50.0); HGB 14.3 g/dL (13.0-17.0); Lymphocytes # (A) 1.58 X 10*3/uL (0.90-5.00); Lymphocytes % (A) 13.4 %; MCH 25.7 pg (27.0-32.0); MCHC 30.8 g/dL (32.0-37.0); MCV 83.6 FL (80.0-97.0); Mean Platelet Volume 9.1 FL (9.5-12.2); Monocytes # (A) 0.82 X 10*3/uL (0.20-1.00); Monocytes % (A) 6.9 %; NRBC Per 100 WBC 0 X 10*3/uL (0.00-0.01); Neutrophils % (A) 76.1 %; Platelet Count 269 X 10*3/uL (140-440); RBC 5.56 X 10*6/uL (4.40-5.60); RDW 17.1 % (11.5-14.5); WBC 11.82 X 10*3/uL (4.50-10.00)
[2024-10-15 15:52] LABS: % Iron Saturation 10.36 (15.00-50.00); Chol/HDL Ratio 3.63 Ratio; Iron 40 UG/DL (65-175); LDL Cholesterol,Calculated 79.1 mg/dL (0.0-131.0); Total Iron Binding Capacity 386 UG/DL (228-460)
[2024-10-15 16:00] LABS: BUN/Creat Ratio 17.38 Ratio (12.00-20.00); Blood Urea Nitrogen 13.9 mg/dL (9.0-27.0); Carbon Dioxide 25.2 mmol/L (21.6-31.8); Chloride 108 mmol/L (96-109); Glucose 164 mg/dL (70-110); Potassium 3.7 mmol/L (3.5-5.5); Sodium 144 mmol/L (135-145)
[2024-10-15 16:01] LABS: ALT 17 U/L (10-49); AST 10 U/L (14-35); Albumin 3.8 g/dL (3.8-4.9); Alkaline Phosphatase 80 U/L (41-126); Calcium 9.2 mg/dL (8.7-10.3); Total Bilirubin 0.5 mg/dL (0.3-1.2); Total Protein 5.8 g/dL (6.2-8.2)
== END | disposition home or self-care (01) ==
LOC: LABWHC1 09:59
PROVIDERS: ATTEND Family Medicine
DX: E11.65 Type 2 diabetes mellitus with hyperglycemia (principal); G47.01 Insomnia due to medical condition
CPT/HCPCS: 36415; 80053; 80061; 83036; 83540; 83550; 84443; 85025

== ENCOUNTER → 2024-11-16 | Outpatient (CLI) | payer MEDICARE ==
--- NOTE | 2024-11-16 15:41 | XR ---
EXAMINATION TYPE: XR chest 2V DATE OF EXAM: 11/16/2024 3:27 PM COMPARISON: Chest x-ray October 08, 2024. CT chest September 28, 2024 CLINICAL INDICATION: Male, 74 years old with history of J06.9 ACUTE UPPER RESPIRATORY INFECTION, UNSP ECIFIED, TECHNIQUE: Frontal and lateral views of the chest are obtained. FINDINGS: Chronic emphysematous changes bilaterally redemonstrated. Persistent bibasilar scarring. P ersistent scarring right suprahilar region. There is no suspicious focal air space opacity, pleural e ffusion, or pneumothorax seen. The cardiac silhouette size is stable and within normal limits. The osseous structures are intact. IMPRESSION: Chronic changes without acute pulmonary process. [facility], , 11/16/2024 3:39 PM
== END | disposition home or self-care (01) ==
LOC: RADXRMAIN 15:14
PROVIDERS: ATTEND Internal Medicine
DX: J06.9 Acute upper respiratory infection, unspecified (principal)
CPT/HCPCS: 71046

== ENCOUNTER → 2025-02-17 | Outpatient (CLI) | payer OTHER ==
--- NOTE | 2025-02-17 12:32 | CT ---
EXAMINATION TYPE: CT chest wo con CT DLP: 583 mGycm, Automated exposure control for dose reduction was used. DATE OF EXAM: 02/17/2025 9:52 AM COMPARISON: CT chest 09/28/2024, 04/17/2024, 06/26/2023, 03/06/2023, CTA chest 09/11/2024, 09/18/2022 CLINICAL INDICATION:Male, 74 years old with history of R06.02 SHORT OF BREATH; PHH, hx of bilateral l obectomy, chest pain x 3 weeks TECHNIQUE: Multiple axial images were obtained through the chest without IV contrast. Lack of IV or o ral contrast limits evaluation of solid and hollow organ viscera. . Coronal and sagittal reformats re viewed. FINDINGS: LUNGS/ PLEURA: No pneumothorax or pleural effusion. Moderate centrilobular and paraseptal emphysemato us changes with large bullous emphysematous changes within the bilateral upper lobes. Bilateral low er lobe dependent subsegmental atelectasis. Postsurgical changes of the bilateral upper lungs with izquierdo ture material identified. No new suspicious pulmonary nodule or mass. AIRWAY: Patent and unremarkable.. HEART: Size within normal limits. No pericardial effusion. [id number] coronary calcifications a nd/or stents. MEDIASTINUM: No enlarged mediastinal or hilar lymph nodes. VASCULATURE: No aortic aneurysm. Mild atherosclerotic calcification of the aorta and its branches. MUSCULOSKELETAL: No acute osseous abnormalities SOFT TISSUES/LYMPH NODES: Unremarkable. LOWER NECK: No significant findings. UPPER ABDOMEN: Small to moderate-sized hernia redemonstrated. Stable left lateral hepatic lobe hypode nse lesions dating back to at least 2019 consider benign due to stability. IMPRESSION: 1. Postsurgical changes bilateral lobectomy without evidence for acute thoracic process. 2. Moderate to severe emphysematous changes with bullous emphysematous changes within the bilateral upper lobes. 3. Small to moderate size hiatal hernia redemonstrated. [facility], , 02/17/2025 12:30 PM
== END | disposition home or self-care (01) ==
LOC: RADCTMAIN 09:23
PROVIDERS: ATTEND Family Medicine
DX: J43.9 Emphysema, unspecified (principal); K44.9 Diaphragmatic hernia without obstruction or gangrene; Z90.2 Acquired absence of lung [part of]
CPT/HCPCS: 71250

== ENCOUNTER → 2025-03-15 | Outpatient (CLI) | payer MEDICARE ==
[2025-03-15 18:07] LABS: Basophils # (A) 0.08 X 10*3/uL (0.00-0.10); Basophils % (A) 0.5 %; Eosinophils # (A) 0.01 X 10*3/uL (0.04-0.35); Eosinophils % (A) 0.1 %; HCT 48.7 % (39.6-50.0); HGB 15.2 g/dL (13.0-17.0); Lymphocytes % (A) 6.1 %; MCH 28.7 pg (27.0-32.0); MCHC 31.2 g/dL (32.0-37.0); MCV 91.9 FL (80.0-97.0); Mean Platelet Volume 9.2 FL (9.5-12.2); Monocytes # (A) 0.45 X 10*3/uL (0.20-1.00); Monocytes % (A) 3.1 %; NRBC Per 100 WBC 0 X 10*3/uL (0.00-0.01); Neutrophils # (A) 12.97 X 10*3/uL (1.80-7.70); Neutrophils % (A) 88.4 %; Platelet Count 242 X 10*3/uL (140-440); RDW 15.3 % (11.5-14.5); WBC 14.67 X 10*3/uL (4.50-10.00)
[2025-03-15 18:26] LABS: Carbon Dioxide 25.1 mmol/L (21.6-31.8); Chloride 106 mmol/L (96-109); Chol/HDL Ratio 4.23 Ratio; Glucose 200 mg/dL (70-110); LDL Cholesterol,Calculated 61.8 mg/dL (0.0-131.0); Potassium 4.3 mmol/L (3.5-5.5); Sodium 143 mmol/L (135-145)
[2025-03-15 18:27] LABS: ALT 13 U/L (10-49); AST 13 U/L (14-35); Albumin 3.7 g/dL (3.8-4.9); Albumin/Globulin Ratio 1.85 Ratio (1.60-3.17); Alkaline Phosphatase 70 U/L (41-126); Calcium 8.4 mg/dL (8.7-10.3); Total Bilirubin 0.4 mg/dL (0.3-1.2); Total Protein 5.7 g/dL (6.2-8.2)
[2025-03-15 20:43] LABS: Microalbumin Creatinine Ratio <16 mg/g Cr (0-30); Urine Creatinine 73.4 mg/dL (39.0-259.0)
== END | disposition home or self-care (01) ==
LOC: LABWHC1 14:48
PROVIDERS: ATTEND Physician Assistant
DX: I10 Essential (primary) hypertension (principal); E11.65 Type 2 diabetes mellitus with hyperglycemia; E78.5 Hyperlipidemia, unspecified
CPT/HCPCS: 36415; 80053; 80061; 82043; 82570; 83036; 84443; 85025

== ENCOUNTER 2025-04-05 18:41 | Inpatient (IN) | payer MEDICARE ==
--- NOTE | 2025-04-05 19:14 | ED ---
SOB HPI - General Chief Complaint: Shortness of Breath Stated Complaint: coughing up blood,dizzy Time Seen by Provider: 04/05/25 18:54 Source: patient, RN notes reviewed, old records reviewed Mode of arrival: ambulatory Limitations: no limitations - History of Present Illness Initial Comments: This is a 74-year-old male to the ER. This patient presents today for multiple complaints but hemoptysis cough congestion runny nose recent history of signific ant inpatient hospitalization with abnormal bacterial infection of the lung patient sent to the ER from primary care patient was sent in by primary care for low oxygen hemoptysis MD Complaint: shortness of breath, cough, chest pain, pain with inspiration, anxiety -: days(s) Severity: severe Severity scale (1-10): 10 Consistency: constant Worsens With: nothing Known History Of: COPD, congestive heart failure Context: recent URI, anxiety, recent illness Associated Symptoms: denies other symptoms - Related Data Home Medications Medication Instructions Recorded Confirmed Gabapentin 1,200 mg PO HS 04/09/16 04/06/25 Fluticasone/Umeclidin/Vilanter 1 puff INHALATION RT-DAILY 10/25/21 04/06/25 [Trelegy Ellipta 100-62.5-25] Gabapentin 600 mg PO DAILY 09/17/22 04/06/25 Pantoprazole Sodium [Protonix] 40 mg PO BID 09/17/22 04/06/25 Apixaban [Eliquis] 5 mg PO BID 05/17/23 04/06/25 Clopidogrel Bisulfate [Clopidogrel] 75 mg PO DAILY 05/17/23 04/06/25 Empagliflozin [Jardiance] 10 mg PO DAILY 05/17/23 04/06/25 Ezetimibe [Zetia] 10 mg PO DAILY 05/17/23 04/06/25 metFORMIN HCL 1,000 mg PO BID 05/17/23 04/06/25 traZODone HCL [Desyrel] 200 mg PO HS 05/17/23 04/06/25 Albuterol Inhaler [Ventolin Hfa 2 puff INHALATION RT-Q4H PRN 01/23/24 04/06/25 Inhaler] Famotidine 40 mg PO HS 01/23/24 04/06/25 HYDROcodone/APAP 7.5-325MG [[place] 1 tab PO TID 01/23/24 04/06/25 7.5-325] Isosorbide Mononitrate ER [Imdur] 30 mg PO DAILY 01/23/24 04/06/25 Hydrocortisone [Cortef] 30 mg PO DAILY 03/17/25 04/06/25 Lansoprazole 30 mg PO DAILY 03/17/25 04/06/25 Losartan [Cozaar] 50 mg PO HS 03/17/25 04/06/25 Metoprolol Tartrate [Lopressor] 12.5 mg PO DAILY 03/17/25 04/06/25 Rosuvastatin [Crestor] 10 mg PO BENNETT 03/17/25 04/06/25 SUMAtriptan succinate 100 mg PO DAILY PRN 03/17/25 04/06/25 Triamcinolone 0.1% Cream [Kenalog 1 applic TOPICAL BID PRN 03/17/25 04/06/25 0.1% Cream] Budesonide/Formoterol Fumarate 2 puff INHALATION RT-BID 04/06/25 04/06/25 [Breyna 160-4.5 Mcg Inhaler] Vonoprazan Fumarate [Voquezna] 10 mg PO HS 04/06/25 04/06/25 Previous Rx's Medication Instructions Recorded Ipratropium-Albuterol Nebulize 3 ml INHALATION RT-Q4H PRN each 04/08/25 [Duoneb 0.5 mg-3 mg/3 ml Soln] Ipratropium-Albuterol Nebulize 3 ml INHALATION RT-QID #100 each 04/08/25 [Duoneb 0.5 mg-3 mg/3 ml Soln] Levofloxacin [Levaquin] 750 mg PO DAILY 7 Days #7 tab 04/08/25 Tamsulosin [Flomax] 0.4 mg PO PC-BRKFST #30 cap 04/08/25 predniSONE See Taper PO DIRECTED #30 tab 04/08/25 Allergies Allergy/AdvReac Type Severity Reaction Status Date / Time nitrofurantoin Allergy Unknown Verified 04/06/25 07:52 [From Macrobid] Childhood Review of Systems ROS Statement: Those systems with pertinent positive or pertinent negative responses have been documented in the HPI. ROS Other: All systems not noted in ROS Statement are negative. Past Medical History Past Medical History: COPD, CVA/TIA, Diabetes Mellitus, GERD/Reflux, Hearing Disorder / Deafness, Hyperlipidemia, Myocardial Infarction (TX), Musculoskeletal Disorder, Osteoarthritis (OA), Pneumonia, Prostate Disorder, Pulmonary Embolus (PE), Respiratory Disorder Additional Past Medical History / Comment(s): PE/RLL pneumonia/acute hypoxic failure. Portal bollous emphysema. low back pain, bilat sciatica; RLS; migraines, TIA , BPH, hearing aids, , diverticulosis. onset diabetes 08/11/19, multiple pneumothorax, O2 @2-4L [place] prn. Adrenal insufficiency Last Myocardial Infarction Date:: 12/30/2019 History of Any Multi-Drug Resistant Organisms: None Reported Date of last positivie culture/infection: 09/11/24 MDRO Source:: sputum Past Surgical History: Heart Catheterization With Stent, Hernia Repair, Orth opedic Surgery, Prostate Surgery, Tonsillectomy Additional Past Surgical History / Comment(s): Septoplasty/ESSS, EGD, colonoscopy with benign polyp, R inguinal hernia, umbilical hernia, pain clinic procedures, atilio fundloplication. upper bilat lung lobes removed 05/2021, pr ostate surgery 3 weeks ago. Prostate biopsy 01/20/24. Prostate laser surgery Past Anesthesia/Blood Transfusion Reactions: No Reported Reaction Additional Past Anesthesia/Blood Transfusion Reaction / Comment(s): no known family hx Date of Last Stent Placement:: Past Psychological History: No Psychological Hx Reported, PTSD Smoking Status: Former smoker Past Alcohol Use History: None Reported Past Drug Use History: None Reported - Past Family History Father History Unknown: Yes Family Medical History: No Reported History, Unable to Obtain Additional Family Medical History / Comment(s): Pt was adopted. Mother History Unknown: Yes Additional Family Medical History / Comment(s): Pt was adopted. Daughter(s) Additional Family Medical History / Comment(s): Children do not have any major medical problems. No history of blood clots. General Exam Limitations: no limitations General appearance: anxious Head exam: Present: atraumatic, normocephalic, normal inspection Eye exam: Present: normal appearance, PERRL, EOMI. Absent: scleral icterus, conjunctival injection, periorbital swelling ENT exam: Present: normal exam, mucous membranes moist Neck exam: Present: normal inspection. Absent: tenderness, meningismus, lymphadenopathy Respiratory exam: Present: respiratory distress, wheezes, accessory muscle use, decreased breath sounds, prolonged expiratory. Absent: rales, rhonchi, stridor Cardiovascular Exam: Present: regular rate, normal rhythm, normal heart sounds. Absent: systolic murmur, diastolic murmur, rubs, gallop, clicks GI/Abdominal exam: Present: soft, normal bowel sounds. Absent: distended, tenderness, guarding, rebound, rigid Extremities exam: Present: normal inspection, full ROM, normal capillary refill. Absent: tenderness, pedal edema, joint swelling, calf tenderness Back exam: Present: normal inspection Neurological exam: Present: alert, oriented X3, CN II-XII intact Psychiatric exam: Present: normal affect, normal mood Skin exam: Present: warm, dry, intact, normal color. Absent: rash Course Vital Signs 04/05/25 04/05/25 04/05/25 18:41 19:27 19:32 Temperature 98.3 F Pulse Rate 75 71 75 Respiratory 17 16 16 Rate Blood Pressure 97/67 86/41 92/57 O2 Sat by Pulse 91 L 88 L 92 L Oximetry 04/05/25 04/05/25 04/05/25 20:02 20:03 20:13 Temperature Pulse Rate 85 67 84 Respiratory 16 Rate Blood Pressure 104/60 O2 Sat by Pulse 92 L Oximetry 04/05/25 04/05/25 04/06/25 20:33 23:27 02:15 Temperature Pulse Rate 71 70 77 Respiratory 16 16 18 Rate Blood Pressure 125/40 103/54 O2 Sat by Pulse 90 L 91 L 93 L Oximetry 04/06/25 04/06/25 04/06/25 04:15 05:30 07:29 Temperature Pulse Rate 79 51 L 71 Respiratory 18 18 18 Rate Blood Pressure 114/90 135/93 O2 Sat by Pulse 92 L 93 L 87 L Oximetry 04/06/25 04/06/25 04/06/25 08:47 08:49 08:54 Temperature Pulse Rate 66 58 L Respiratory 18 18 Rate Blood Pressure O2 Sat by Pulse 94 L Oximetry 04/06/25 04/06/25 04/06/25 10:00 11:47 12:00 Temperature Pulse Rate 85 79 85 Respiratory 18 18 18 Rate Blood Pressure 126/74 O2 Sat by Pulse 98 Oximetry 04/06/25 04/06/25 04/06/25 13:00 15:00 15:30 Temperature Pulse Rate 74 87 96 Respiratory 18 15 17 Rate Blood Pressure 122/70 125/100 115/82 O2 Sat by Pulse 99 93 L 93 L Oximetry 04/06/25 04/06/25 15:55 16:05 Temperature Pulse Rate 82 84 Respiratory 18 18 Rate Blood Pressure O2 Sat by Pulse Oximetry - Reevaluation(s) Reevaluation #1: 04/05/25 20:00 Medical records reviewed Reevaluation #2: 04/05/25 20:50 Patient oxygenation is improving here in the ER no significant coughing up blood Reevaluation #3: 04/05/25 20:50 Patient informed of results and questions answered Reevaluation #4: Was pt. sent in by a medical professional or institution (, QI, TYPECASTING MACHINE OPERATOR, urgent care, hospital, or skilled nursing...) When possible be specific @ -no Did you speak to anyone other than the patient for history (EMS, parent, family, police, friend...)? What history was obtained from this source @ -no Did you review nursing and triage notes (agree or disagree)? Why? @ -agree Are old charts reviewed (outside hosp., previous admission, EMS record, old EKG, old radiological studies, urgent care reports/EKG's, skilled nursing records)? Report findings @ -yes Differential Diagnosis (chest pain, altered mental status, abdominal pain women, abdominal pain men, vaginal bleeding, weakness, fever, dyspnea, syncope, headache, dizziness, GI bleed, back pain, seizure, CVA, palpatations, mental health, musculoskeletal)? @ -prior EKG interpreted by me (3pts min.). @ -yes X-rays interpreted by me (1pt min.). @ -yes positive for pneumonia CT interpreted by me (1pt min.). @ -no U/S interpreted by me (1pt. min.). @ -no What testing was considered but not performed or refused? (CT, X-rays, U/S, labs)? Why? @ -none What meds were considered but not given or refused? Why? @ -none Did you discuss the management of the patient with other professionals (professionals i.e. [facility]I Gomez, TYPECASTING MACHINE OPERATOR, lab, RT, psych nurse, social and political studies professor, electronic security technician, teacher, family preservation officer, case assembler)? Give summary @ -no Was smoking cessation discussed for >3mins.? @ -no Was critical care preformed (if so, how long)? @ -yes31 Were there social determinants of health that impacted care today? How? (Homelessness, low income, unemployed, alcoholism, drug addiction, transportation, low edu. Level, literacy, decrease access to med. care, shelter, rehab)? @ -none Was there de-escalation of care discussed even if they declined (Discuss DNR or withdrawal of care, Hospice)? DNR status @ -no What co-morbidities impacted this encounter? (DM, HTN, Smoking, COPD, CAD, Cancer, CVA, ARF, Chemo, Hep., AIDS, mental health diagnosis, sleep apnea, morbid obesity)? @ -none Was patient admitted / discharged? Hospital course, mention meds given and route, prescriptions, significant lab abnormalities, going to OR and other pertinent info. @ - 74 male to the ER for evaluation patient coming in for dyspnea hemoptysis cough congestion COPD with pneumonia. Will admit for IV antibiotics and pulmonary evaluation\ Admitted Undiagnosed new problem with uncertain prognosis? @ -no Drug Therapy requiring intensive monitoring for toxicity (Heparin, Nitro, Insulin, Cardizem)? @ -no Were any procedures done? @ -no Diagnosis/symptom? @ -Pneumonia hemoptysis hypoxia Acute, or Chronic, or Acute on Chronic? @ -Acute Uncomplicated (without systemic symptoms) or Complicated (systemic symptoms)? @ -Complicated Side effects of treatment? @ -no Exacerbation, Progression, or Severe Exacerbation? @ -exacerbation Poses a threat to life or bodily function? How? (Chest pain, [place], [place], pneumonia, PE, COPD, DKA, ARF, appy, cholecystitis, CVA, Diverticulitis, Homicidal, Suicidal, threat to staff... and all critical care pts) @ -yes with hypoxia Reevaluation #5: Differential Dyspnea: Coronary syndrome, arrhythmia, tamponade, asthma, COPD, pulmonary embolism, pneumonia, pneumothorax, pulmonary effusion, anaphylaxis, diabetic ketoacidosis, flailed chest, pulmonary contusion, diaphragmatic rupture, anemia, neuromuscular, this is not meant to be an all-inclusive list. - Consultations Consultation #1: Spoke with [facility] who agrees to admit this patient Medical Decision Making - Medical Decision Making 74 male to the ER for evaluation patient coming in for dyspnea hemoptysis cough congestion COPD with pneumonia. Will admit for IV antibiotics and pulmonary evaluation - Lab Data Result diagrams: 04/10/25 08:27 04/10/25 08:27 Lab Results 04/05/25 04/05/25 04/05/25 Range/Units 19:26 19:26 19:26 WBC 12.54 H (4.50-10.00) 10*3/uL RBC 5.08 (4.40-5.60) 10*6/uL Hgb 14.8 (13.0-17.0) g/dL Hct 46.0 (39.6-50.0) % MCV 90.6 (80.0-97.0) fL MCH 29.1 (27.0-32.0) pg MCHC 32.2 (32.0-37.0) g/dL Plt Count 224 (140-440) 10*3/uL MPV 8.8 L (9.5-12.2) fL Immature Gran % (Auto) 0.5 % Neutrophils % 85.1 % Lymphocytes % 9.1 % Monocytes % 4.8 % Eosinophils % 0.1 % Basophils % 0.4 % Immature Gran # 0.06 H (0.00-0.04) 10*3/uL Neutrophils # 10.68 H (1.80-7.70) 10*3/uL Lymphocytes # 1.14 (0.90-5.00) 10*3/uL Monocytes # 0.60 (0.20-1.00) 10*3/uL Eosinophils # 0.01 L (0.04-0.35) 10*3/uL Basophils # 0.05 (0.00-0.10) 10*3/uL PT 11.1 (10.0-12.5) sec INR 1.0 (<1.2) APTT 24.3 (22.0-30.0) sec Sodium 139 (137-145) mmol/L Potassium 4.4 (3.5-5.1) mmol/L Chloride 110 H (98-107) mmol/L Carbon Dioxide 24 (22-30) mmol/L Anion Gap 5 mmol/L BUN 16 (9-20) mg/dL Creatinine 0.77 (0.66-1.25) mg/dL Est GFR (CKD-EPI)AfAm >90 (>60 ml/min/1.73 sqM) Est GFR (CKD-EPI)NonAf 88 (>60 ml/min/1.73 sqM) Glucose 147 H (74-99) mg/dL Plasma Lactic Acid Leon (0.7-2.0) mmol/L Calcium 8.8 (8.4-10.2) mg/dL Magnesium 2.0 (1.6-2.3) mg/dL Total Bilirubin 1.2 (0.2-1.3) mg/dL AST 23 (17-59) U/L ALT 21 (4-49) U/L Alkaline Phosphatase 51 (38-126) U/L Troponin I (0.000-0.034) ng/mL NT-Pro-B Natriuret Pep 92 pg/mL Total Protein 5.8 L (6.3-8.2) g/dL Albumin 3.4 L (3.5-5.0) g/dL Urine Color Urine Appearance (Clear) Urine pH (5.0-8.0) Ur Specific [place] (1.001-1.035) Urine Protein (Negative) Urine Glucose (UA) (Negative) Urine Ketones (Negative) Urine Blood (Negative) Urine Nitrite (Negative) Urine Bilirubin (Negative) Urine Urobilinogen (<2.0) mg/dL Ur Leukocyte Esterase (Negative) Urine Legionella Ag (Negative) 04/05/25 04/05/25 04/05/25 Range/Units 19:26 19:26 20:27 WBC (4.50-10.00) 10*3/uL RBC (4.40-5.60) 10*6/uL Hgb (13.0-17.0) g/dL Hct (39.6-50.0) % MCV (80.0-97.0) fL MCH (27.0-32.0) pg MCHC (32.0-37.0) g/dL Plt Count (140-440) 10*3/uL MPV (9.5-12.2) fL Immature Gran % (Auto) % Neutrophils % % Lymphocytes % % Monocytes % % Eosinophils % % Basophils % % Immature Gran # (0.00-0.04) 10*3/uL Neutrophils # (1.80-7.70) 10*3/uL Lymphocytes # (0.90-5.00) 10*3/uL Monocytes # (0.20-1.00) 10*3/uL Eosinophils # (0.04-0.35) 10*3/uL Basophils # (0.00-0.10) 10*3/uL PT (10.0-12.5) sec INR (<1.2) APTT (22.0-30.0) sec Sodium (137-145) mmol/L Potassium (3.5-5.1) mmol/L Chloride (98-107) mmol/L Carbon Dioxide (22-30) mmol/L Anion Gap mmol/L BUN (9-20) mg/dL Creatinine (0.66-1.25) mg/dL Est GFR (CKD-EPI)AfAm (>60 ml/min/1.73 sqM) Est GFR (CKD-EPI)NonAf (>60 ml/min/1.73 sqM) Glucose (74-99) mg/dL Plasma Lactic Acid Leon 1.1 (0.7-2.0) mmol/L Calcium (8.4-10.2) mg/dL Magnesium (1.6-2.3) mg/dL Total Bilirubin (0.2-1.3) mg/dL AST (17-59) U/L ALT (4-49) U/L Alkaline Phosphatase (38-126) U/L Troponin I <0.012 (0.000-0.034) ng/mL NT-Pro-B Natriuret Pep pg/mL Total Protein (6.3-8.2) g/dL Albumin (3.5-5.0) g/dL Urine Color Yellow Urine Appearance Clear (Clear) Urine pH 6.0 (5.0-8.0) Ur Specific [place] 1.044 H (1.001-1.035) Urine Protein Negative (Negative) Urine Glucose (UA) 4+ H (Negative) Urine Ketones Negative (Negative) Urine Blood Negative (Negative) Urine Nitrite Negative (Negative) Urine Bilirubin Negative (Negative) Urine Urobilinogen 3.0 (<2.0) mg/dL Ur Leukocyte Esterase Negative (Negative) Urine Legionella Ag (Negative) 04/05/25 Range/Units 20:27 WBC (4.50-10.00) 10*3/uL RBC (4.40-5.60) 10*6/uL Hgb (13.0-17.0) g/dL Hct (39.6-50.0) % MCV (80.0-97.0) fL MCH (27.0-32.0) pg MCHC (32.0-37.0) g/dL Plt Count (140-440) 10*3/uL MPV (9.5-12.2) fL Immature Gran % (Auto) % Neutrophils % % Lymphocytes % % Monocytes % % Eosinophils % % Basophils % % Immature Gran # (0.00-0.04) 10*3/uL Neutrophils # (1.80-7.70) 10*3/uL Lymphocytes # (0.90-5.00) 10*3/uL Monocytes # (0.20-1.00) 10*3/uL Eosinophils # (0.04-0.35) 10*3/uL Basophils # (0.00-0.10) 10*3/uL PT (10.0-12.5) sec INR (<1.2) APTT (22.0-30.0) sec Sodium (137-145) mmol/L Potassium (3.5-5.1) mmol/L Chloride (98-107) mmol/L Carbon Dioxide (22-30) mmol/L Anion Gap mmol/L BUN (9-20) mg/dL Creatinine (0.66-1.25) mg/dL Est GFR (CKD-EPI)AfAm (>60 ml/min/1.73 sqM) Est GFR (CKD-EPI)NonAf (>60 ml/min/1.73 sqM) Glucose (74-99) mg/dL Plasma Lactic Acid Leon (0.7-2.0) mmol/L Calcium (8.4-10.2) mg/dL Magnesium (1.6-2.3) mg/dL Total Bilirubin (0.2-1.3) mg/dL AST (17-59) U/L ALT (4-49) U/L Alkaline Phosphatase (38-126) U/L Troponin I (0.000-0.034) ng/mL NT-Pro-B Natriuret Pep pg/mL Total Protein (6.3-8.2) g/dL Albumin (3.5-5.0) g/dL Urine Color Urine Appearance (Clear) Urine pH (5.0-8.0) Ur Specific [place] (1.001-1.035) Urine Protein (Negative) Urine Glucose (UA) (Negative) Urine Ketones (Negative) Urine Blood (Negative) Urine Nitrite (Negative) Urine Bilirubin (Negative) Urine Urobilinogen (<2.0) mg/dL Ur Leukocyte Esterase (Negative) Urine Legionella Ag Negative (Negative) - EKG Data -: EKG Interpreted by Me (EKG is sinus 68 [place] 180 QRS 86 QTc 423) - Radiology Data Radiology results: report reviewed (Chest x-ray is positive for pneumonia), image reviewed Critical Care Time Critical Care Time: Yes Total Critical Care Time: 31 Disposition Clinical Impression: COPD (chronic obstructive pulmonary disease), Hypoxic respiratory failure, History of COVID-19, Acute exacerbation of chronic obstructive airways disease, Pneumonia Disposition: ADMITTED IP TO THIS HOSP Condition: Fair Is patient prescribed a controlled substance at d/c from ED?: No Time of Disposition: 20:50
[2025-04-05] MEDS: LACTATED RINGERS 1,000 ML IV SCH (19:28)
[2025-04-05 19:51] LABS: Basophils # (A) 0.05 10*3/uL (0.00-0.10); Basophils % (A) 0.4 %; Eosinophils # (A) 0.01 10*3/uL (0.04-0.35); Eosinophils % (A) 0.1 %; HGB 14.8 g/dL (13.0-17.0); Lymphocytes # (A) 1.14 10*3/uL (0.90-5.00); Lymphocytes % (A) 9.1 %; MCH 29.1 pg (27.0-32.0); MCHC 32.2 g/dL (32.0-37.0); MCV 90.6 fL (80.0-97.0); Mean Platelet Volume 8.8 fL (9.5-12.2); Monocytes % (A) 4.8 %; Neutrophils # (A) 10.68 10*3/uL (1.80-7.70); Neutrophils % (A) 85.1 %; Platelet Count 224 10*3/uL (140-440); RBC 5.08 10*6/uL (4.40-5.60); RDW 15.7 % (11.5-14.5); WBC 12.54 10*3/uL (4.50-10.00)
[2025-04-05 20:01] LABS: Partial Thromboplastin Time 24.3 sec (22.0-30.0); Prothrombin Time 11.1 sec (10.0-12.5)
[2025-04-05] MEDS: HYDROmorphone 1 MG/ML 1 ML SYRINGE IVP STA (20:01)
[2025-04-05] MEDS: IPRATROPIUM-ALBUTEROL 3 ML NEB INHALATION STA (20:02)
[2025-04-05 20:08] LABS: ALT 21 U/L (4-49); African American GFR (CKD) >90 (>60 ml/min/1.73 sqM); Albumin 3.4 g/dL (3.5-5.0); Anion Gap 5 mmol/L; Blood Urea Nitrogen 16 mg/dL (9-20); Calcium 8.8 mg/dL (8.4-10.2); Carbon Dioxide 24 mmol/L (22-30); Chloride 110 mmol/L (98-107); Glucose 147 mg/dL (74-99); Non-African American GFR(CKD) 88 (>60 ml/min/1.73 sqM); Sodium 139 mmol/L (137-145); Total Bilirubin 1.2 mg/dL (0.2-1.3); Total Protein 5.8 g/dL (6.3-8.2)
--- NOTE | 2025-04-05 20:09 | XR ---
EXAMINATION TYPE: XR chest 2V DATE OF EXAM: 04/05/2025 7:51 PM COMPARISON: 03/18/2025 CLINICAL INDICATION: Male, 74 years old with history of difficulty breathing, TECHNIQUE: XR chest 2V view(s) obtained. FINDINGS: The heart size is normal. The pulmonary vasculature is normal. Right lower lobe infiltrate is present. Mild left lower lobe infiltrate is present. Findings are wors ening from comparison. IMPRESSION: 1. Bibasilar infiltrates. Correlate for atelectasis or pneumonia. [facility], , 04/05/2025 8:07 PM
[2025-04-05 20:13] LABS: NT-Pro-B-Type Natriuretic Pept 92 pg/mL
[2025-04-05 20:18] LABS: AST 23 U/L (17-59); Alkaline Phosphatase 51 U/L (38-126); Potassium 4.4 mmol/L (3.5-5.1)
[2025-04-05 20:35] LABS: Appearance,Urine Clear (Clear); Bilirubin,Urine Negative (Negative); Blood,Urine Negative (Negative); Color,Urine Yellow; Glucose,Urine (UA) 4+ (Negative); Ketones,Urine Negative (Negative); Leukocyte Esterase,Urine Negative (Negative); Nitrite,Urine Negative (Negative); Protein,Urine Negative (Negative); Specific Gravity,Urine 1.044 (1.001-1.035)
[2025-04-05] MEDS ORDERED: IPRATROPIUM-ALBUTEROL 3 ML NEB INHALATION PRN (20:46)
[2025-04-05] MEDS ORDERED: PNEUMONIA PROTOCOL UTILIZED 1 EACH MISC PO PRN (20:46)
[2025-04-05] MEDS: SODIUM CHLORIDE 0.9% 1,000 ML IV SCH (21:04)
[2025-04-05] MEDS: LEVOFLOXACIN 750MG-D5W PMX 750 MG in DEXTROSE/WATER 1 150ML.BAG IVPB SCH (21:05)
[2025-04-06] MEDS: HYDROmorphone 1 MG/ML 1 ML SYRINGE IVP PRN (00:07)
[2025-04-06] MEDS: ALPRAZolam 1 MG TAB PO PRN (01:57)
[2025-04-06] MEDS: FAMOTIDINE 20 MG TAB PO SCH (01:57)
[2025-04-06] MEDS: GABAPENTIN 400 MG CAP PO SCH (01:58)
[2025-04-06] MEDS: traZODone HCL 100 MG TAB PO SCH (01:58)
[2025-04-06] MEDS: PANTOPRAZOLE 40 MG TABLET PO SCH (01:58)
--- NOTE | 2025-04-06 05:02 | P.CNPUL ---
History of Present Illness Consult date: 04/06/25 Requesting physician: Dewey Romeo Reason for consult: pneumonia Chief complaint: Shortness of breath, cough, hemoptysis History of present illness: Patient is a 74-year-old male with past medical history significant for severe COPD/emphysema, previous pneumothoraces, bullectomy, PE, hypertension, hyperlipidemia, CAD, CVA/TIA, diabetes mellitus, GERD, hiatal hernia, frequent urinary tract infections with previous TURP, previous NC, PTSD, migraines. Does follow in the pulmonary office with Dr. Rascon. Of note, patient had a recent hospitalization in Feb, 2025 for urinary tract infection, as well as, possible left lower lung pneumonia. Urine positive Serratia marcescens. Ended up being discharged on 03/17/25 with a course of ciprofloxacin. Reportedly, did complete his antibiotics. At the last couple days developed increased cough with small hemoptysis mixed with sputum. Patient does take Eliquis on outpatient basis. Ended up going to his primary care provider, Dr. Giordano, for evaluation yesterday. She recommended that he come to the emergency department. Workup in the emergency department including chest x-ray showing bilateral lower lobe infiltrates, possible worse from comparison. CBC: WBC count 12.54, hemoglobin 14.8, platelets 224. CMP: Sodium 139, potassium 4.4, chloride 110, serum bicarb 24, BUN 16, creatinine 0.77, glucose 147. Lactic 1.1. LFTs not elevated. Troponin less than 0.012. NT proBNP low. EKG: Sinus rhythm, rate 68 bpm, no acute ischemic changes noted. UA unremarkable for infection. Patient currently being evaluated in the emergency department. Sitting comfortably at the edge of the bed. On room air. No acute respiratory distress. The last several days has developed increased weakness, dizziness, and headaches. Endorsing increased work of breathing with cough that is productive with occasional hemoptysis mixed with black sputum. Also, reporting associated low-grade fevers. Denies recent known sick contacts. Denies localized chest pain, heart palpitations, syncopal events, lower extremity edema, orthopnea. Denies dysuria, hematuria, flank pain. Afebrile. Current vital stable. Review of Systems Constitutional: Reports fatigue, Reports fever, Denies chills, Denies poor appetite, Denies weight gain, Denies weight loss Ears, nose, mouth and throat: Denies dysphagia, Denies headache, Denies nasal congestion, Denies nasal discharge, Denies post-nasal drip, Denies sinus pain, Denies sinus pressure, Denies sore throat Cardiovascular: Reports lightheadedness, Reports shortness of breath, Denies chest pain, Denies leg edema, Denies orthopnea, Denies palpitations, Denies paroxysmal nocturnal dyspnea, Denies syncope Respiratory: Reports congestion, Reports cough, Reports cough with sputum, Reports dyspnea, Reports hemoptysis Gastrointestinal: Reports heartburn, Denies abdominal pain, Denies diarrhea, Denies hematemesis, Denies loss of appetite, Denies nausea, Denies vomiting Genitourinary: Reports urinary hesitancy, Denies dysuria, Denies flank pain, Denies hematuria, Denies incontinence, Denies urinary retention Musculoskeletal: Denies limitation of motion Integumentary: Denies rash Neurological: Denies seizures, Denies syncope Psychiatric: Reports anxiety, Reports anxiety attacks, Reports insomnia, Denies depression Past Medical History Past Medical History: COPD, CVA/TIA, Diabetes Mellitus, GERD/Reflux, Hearing Disorder / Deafness, Hyperlipidemia, Myocardial Infarction (NC), Musculoskeletal Disorder, Osteoarthritis (OA), Pneumonia, Prostate Disorder, Pulmonary Embolus (PE), Respiratory Disorder Additional Past Medical History / Comment(s): PE/RLL pneumonia/acute hypoxic failure. Portal bollous emphysema. low back pain, bilat sciatica; RLS; migraines, TIA , BPH, hearing aids, , diverticulosis. onset diabetes 08/11/19, multiple pneumothorax, O2 @2-4L NC prn. Adrenal insufficiency Last Myocardial Infarction Date:: 12/30/2019 History of Any Multi-Drug Resistant Organisms: None Reported Date of last positivie culture/infection: 09/11/24 MDRO Source:: sputum Past Surgical History: Heart Catheterization With Stent, Hernia Repair, Orthopedic Surgery, Prostate Surgery, Tonsillectomy Additional Past Surgical History / Comment(s): Septoplasty/ESSS, EGD, colonoscopy with benign polyp, R inguinal hernia, umbilical hernia, pain clinic procedures, atilio fundloplication. upper bilat lung lobes removed 05/2021, prostate surgery 3 weeks ago. Prostate biopsy 01/20/24. Prostate laser surgery Past Anesthesia/Blood Transfusion Reactions: No Reported Reaction Additional Past Anesthesia/Blood Transfusion Reaction / Comment(s): no known family hx Date of Last Stent Placement:: Past Psychological History: No Psychological Hx Reported, PTSD Smoking Status: Former smoker Past Alcohol Use History: None Reported Past Drug Use History: None Reported - Past Family History Father History Unknown: Yes Family Medical History: No Reported History, Unable to Obtain Additional Family Medical History / Comment(s): Pt was adopted. Mother History Unknown: Yes Additional Family Medical History / Comment(s): Pt was adopted. Daughter(s) Additional Family Medical History / Comment(s): Children do not have any major medical problems. No history of blood clots. Medications and Allergies Home Medications Medication Instructions Recorded Confirmed Type Gabapentin 1,200 mg PO HS 04/09/16 03/17/25 History Fluticasone/Umeclidin/Vilanter 1 puff INHALATION RT-DAILY 10/25/21 03/17/25 His tory [Trelegy Ellipta 100-62.5-25] Gabapentin 600 mg PO DAILY 09/17/22 03/17/25 History Pantoprazole Sodium [Protonix] 40 mg PO BID 09/17/22 03/17/25 History Apixaban [Eliquis] 5 mg PO BID 05/17/23 03/17/25 History Clopidogrel Bisulfate [Clopidogrel] 75 mg PO DAILY 05/17/23 03/17/25 History Empagliflozin [Jardiance] 10 mg PO DAILY 05/17/23 03/17/25 History Ezetimibe [Zetia] 10 mg PO DAILY 05/17/23 03/17/25 History metFORMIN HCL 1,000 mg PO BID 05/17/23 03/17/25 History traZODone HCL [Desyrel] 200 mg PO HS 05/17/23 03/17/25 History Albuterol Inhaler [Ventolin Hfa 2 puff INHALATION RT-Q4H PRN 01/23/24 03/17/25 History Inhaler] Famotidine 40 mg PO HS 01/23/24 03/17/25 History HYDROcodone/APAP 7.5-325MG [[place] 1 tab PO TID 01/23/24 03/17/25 History 7.5-325] Isosorbide Mononitrate ER [Imdur] 30 mg PO DAILY 01/23/24 03/17/25 History Hydrocortisone [Cortef] 30 mg PO DAILY 03/17/25 03/17/25 History Lansoprazole 30 mg PO DAILY 03/17/25 03/17/25 History Losartan [Cozaar] 50 mg PO HS 03/17/25 03/17/25 History Metoprolol Tartrate [Lopressor] 12.5 mg PO DAILY 03/17/25 03/17/25 History Rosuvastatin [Crestor] 10 mg PO BENNETT 03/17/25 03/17/25 History SUMAtriptan succinate 100 mg PO DAILY PRN 03/17/25 03/17/25 History Triamcinolone 0.1% Cream [Kenalog 1 applicatio TOPICAL BID PRN 03/17/25 03/17/25 History 0.1% Cream] Budesonide-Formot 160-4.5 Mcg 2 puff INHALATION RT-BID #1 each 03/21/25 Rx [Symbicort 160-4.5 Mcg Inhaler] Ciprofloxacin HCl [Cipro] 500 mg PO BID 10 Days #20 tab 03/21/25 Rx Ciprofloxacin HCl [Cipro] 500 mg PO BID 10 Days #20 tab 03/21/25 Rx Ciprofloxacin HCl [Cipro] 500 mg PO BID 10 Days #20 tab 03/21/25 Rx Allergies Allergy/AdvReac Type Severity Reaction Status Date / Time nitrofurantoin Allergy Unknown Verified 04/05/25 18:46 [From Macrobid] Childhood Physical Exam Vitals: Vital Signs Temp Pulse Resp BP Pulse Ox 04/05/25 23:27 70 16 103/54 91 L 04/05/25 20:33 71 16 125/40 90 L 04/05/25 20:13 84 04/05/25 20:03 67 16 104/60 92 L 04/05/25 20:02 85 04/05/25 19:32 75 16 92/57 92 L 04/05/25 19:27 71 16 86/41 88 L 04/05/25 18:41 98.3 F 75 17 97/67 91 L Intake and Output 04/05/25 04/05/25 04/06/25 14:59 22:59 06:59 Other: Weight 83.915 kg GENERAL EXAM: Alert, 74-year-old male, sitting at the edge of bed, on room air, comfortable in no apparent distress. HEAD: Normocephalic and atraumatic EYES: Normal reaction of pupils, equal size. NOSE: Clear with pink turbinates. THROAT: No erythema or exudates. NECK: No masses, no JVD. CHEST: No chest wall deformity. LUNGS: Equal air entry with scattered rhonchi heard bilaterally throughout. No conversational dyspnea or accessory muscle use.. CVS: S1 and S2 normal with no audible murmur, regular rhythm. No extra heart sounds ABDOMEN: No hepatosplenomegaly, active bowel sounds, no guarding or rigidity. SPINE: No scoliosis or deformity SKIN: No rashes CENTRAL NERVOUS SYSTEM: No focal deficits, tone is normal in all 4 extremities. EXTREMITIES: There is no peripheral edema, clubbing, or cyanosis. Peripheral pulses are intact. Results - Laboratory Findings CBC and BMP: 04/05/25 19:04/05/25 19:26 PT/INR, D-dimer PT 11.1 sec (10.0-12.5) 04/05/25: INR 1.0 (<1.2) 04/05/25 19:26 Abnormal lab findings: Abnormal Labs 04/05/25 04/05/25 04/05/25 19:26 19:26 20:27 WBC 12.54 H MPV 8.8 L Immature Gran # 0.06 H Neutrophils # 10.68 H Eosinophils # 0.01 L Chloride 110 H Glucose 147 H Total Protein 5.8 L Albumin 3.4 L Ur Specific Warren 1.044 H Urine Glucose (UA) 4+ H - Diagnostic Findings Chest x-ray: image reviewed Assessment and Plan Assessment: Acute COPD exacerbation Acute dyspnea, secondary to above, chest x-ray showing bibasilar infiltrates, possibly slightly worse from comparison, consideration for bibasilar pneumonia or atelectasis. Recent urinary tract infection, urine positive for Serratia marcescens 03/17/2025, treated with course of ciprofloxacin History of bullous emphysema and previous bullectomy History of pneumothoraces History of previous TURP and frequent urinary tract infections History of E. coli sputum positive in August 2024 Remote history of pulmonary embolism, chronically anticoagulated on Eliquis Hypertension History of hyperlipidemia History of coronary disease with previous PCI/stents History of CVA/TIA Type 2 diabetes mellitus GERD History of hiatal hernia Chronic back pain Anxiety/PTSD History of migraines Plan: Currently on room air Patient's medications, labs, chest x-ray reviewed Continue empiric antibiotic coverage Blood culture pending Sputum cultures pending Urine Legionella antigen pending Check a procalcitonin Add DuoNeb inhalations Add Symbicort, may substitute for Trelegy inhaler if made available Add IV Solu-Medrol Home medications reconciled and continued We will continue to follow and make further recommendations based on his clinical status I have personally seen and examined the patient, performed the documentation and the assessment and plan as written. Number of minutes spent on the visit: 20 Time with Patient: Greater than 30
[2025-04-06 06:12] LABS: Influenza A Not Detected (Not Detectd); Influenza B Not Detected (Not Detectd); RSV Not Detected (Not Detectd)
[2025-04-06] MEDS: methylPREDNISolone SOD SUCCI 125 MG/2 ML VIAL IV SCH (06:23)
[2025-04-06] MEDS ORDERED: PANTOPRAZOLE 40 MG TABLET PO SCH (07:30)
[2025-04-06 07:33] LABS: Glucose,Whole Blood 113 mg/dL (70-110)
--- NOTE | 2025-04-06 07:44 | XR ---
EXAMINATION TYPE: XR chest 1V portable DATE OF EXAM: 04/06/2025 5:23 AM COMPARISON: Chest radiographs from 04/05/2025, CT chest 02/17/2025 TECHNIQUE: XR chest 1V portable Portable AP radiograph of the chest. CLINICAL INDICATION:Male, 74 years old with history of pneumonia; FINDINGS: Lungs/Pleura: Postsurgical changes from bilateral lobectomy redemonstrated. Right midlung and left ap ical bulla redemonstrated. No pleural effusion or pneumothorax. Similar bibasilar opacities. Pulmonary vascularity: Unremarkable. Heart/mediastinum: Cardiomediastinal silhouette is unremarkable. Musculoskeletal: No acute osseous pathology. IMPRESSION: Chronic changes with similar bibasilar opacities which may represent atelectasis versus infiltrates. [facility], , 04/06/2025 7:41 AM
[2025-04-06] MEDS: metFORMIN 500 MG TAB PO SCH (08:10)
[2025-04-06] MEDS: APIXABAN 5 MG TAB PO SCH (08:10)
[2025-04-06] MEDS: GABAPENTIN 300 MG CAP PO SCH (08:10)
[2025-04-06] MEDS: DAPAGLIFLOZIN PROPANEDIOL 5 MG TABLET PO SCH (08:10)
[2025-04-06] MEDS: ISOSORBIDE MONONITRATE ER 30 MG TAB.ER.24H PO SCH (08:11)
[2025-04-06] MEDS: METOPROLOL TARTRATE 12.5 MG TAB PO SCH (08:11)
[2025-04-06] MEDS: EZETIMIBE 10 MG TAB PO SCH (08:11)
[2025-04-06] MEDS: CLOPIDOGREL 75 MG TAB PO SCH (08:11)
[2025-04-06] MEDS: SYMBICORT 160-4.5 MCG INHALER INHALATION SCH (08:46)
[2025-04-06] MEDS: IPRATROPIUM-ALBUTEROL 3 ML NEB INHALATION SCH (08:46)
[2025-04-06] MEDS ORDERED: DEXTROSE 50% SYRINGE 50 ML IVP PRN ×2 (10:25)
[2025-04-06] MEDS: HYDROcodone/APAP 7.5-325MG 1 EACH TAB PO SCH (11:21)
[2025-04-06] MEDS: INSULIN LISPRO (HumaLOG) 100 UNIT/ML 10 mL VL SQ SCH (13:41)
[2025-04-06 16:43] LABS: Glucose,Whole Blood 230 mg/dL (70-110)
--- NOTE | 2025-04-06 17:56 | HP ---
HISTORY AND PHYSICAL CHIEF COMPLAINT: Shortness of breath. HISTORY OF PRESENT ILLNESS: This is a 74-year-old gentleman with a past medical history of COPD, multiple hospital admissions who was complaining of cough, congestion, and hemoptysis. The patient came to [facility]. The patient was hypoxic. The patient was found to have bibasilar infiltrate and pneumonia. The patient admitted for further evaluation and treatment. The patient did have a chest CT, a couple of months ago showed bullous emphysematous changes with bilateral lobectomy without any evidence of acute thoracic process. PAST MEDICAL HISTORY: Reviewed, include COPD, diabetes mellitus type 2. Rest of the history and rest of the chart is also reviewed. HOME MEDICATIONS: Reviewed, include Grannis. Dose and rest of medications reviewed. ALLERGIES: Macrobid. FAMILY HISTORY: The patient is adopted. SOCIAL HISTORY: Previous history of smoking. REVIEW OF SYSTEMS: A 14-point review of systems negative except as mentioned earlier. PHYSICAL EXAMINATION: VITAL SIGNS: Pulse is 71, blood pressure 135/90, respirations 18, and pulse ox 94% on 2 L. HEENT: Conjunctivae normal. NECK: No jugular venous distention. CARDIOVASCULAR: S1, S2. RESPIRATION: Breath sounds diminished at the bases. Bilateral scattered rhonchi and crackles. ABDOMEN: Soft, nontender. NERVOUS SYSTEM: Nonfocal. SKIN: No ulcers. LABORATORY DATA: Current labs are reviewed. Chest x-ray reviewed. ASSESSMENT: 1. Chronic obstructive pulmonary disease acute exacerbation with acute bilateral pneumonia possibly gram-negative. 2. Elevated WBC. 3. Diabetes mellitus, type 2. 4. History of myocardial infarction. 5. History of pulmonary embolism. 6. History of coronary artery disease stent. RECOMMENDATIONS AND DISCUSSION: This 74-year-old gentleman presented with multiple complex medical issues. We will monitor the patient closely. I would recommend intensive bronchodilator treatment, empiric antibiotics. Otherwise, I would recommend IV steroids. Closely monitor with Pulmonary. DVT prophylaxis. Resume the home medications. Monitor blood sugars closely. Prognosis guarded, because of multiple complex medical issues. Further recommendations to follow. MMODL / IJN: [id number] /
[2025-04-06 20:42] LABS: Glucose,Whole Blood 236 mg/dL (70-110)
[2025-04-06] MEDS: LOSARTAN 50 MG TAB PO SCH (20:54)
[2025-04-06] MEDS ORDERED: FAMOTIDINE 20 MG TAB PO SCH (21:00)
[2025-04-06] MEDS ORDERED: NON FORMULARY DRUG (Gabapentin [Gabapentin] 600 MG Tablet) PO SCH (21:00)
[2025-04-06] MEDS ORDERED: traZODone HCL 100 MG TAB PO SCH (21:00)
[2025-04-07] MEDS: SUMAtriptan succinate 50 MG TAB PO PRN (05:34)
[2025-04-07 06:14] LABS: Glucose,Whole Blood 187 mg/dL (70-110)
[2025-04-07 08:02] LABS: Basophils # (A) 0.01 X 10*3/uL (0.00-0.10); Basophils % (A) 0.1 %; Eosinophils # (A) 0 X 10*3/uL (0.04-0.35); Eosinophils % (A) 0 %; HCT 41.8 % (39.6-50.0); Lymphocytes # (A) 0.62 X 10*3/uL (0.90-5.00); MCH 28.6 pg (27.0-32.0); MCHC 31.1 g/dL (32.0-37.0); MCV 92.1 FL (80.0-97.0); Mean Platelet Volume 9.5 FL (9.5-12.2); Monocytes % (A) 1.6 %; NRBC Per 100 WBC 0 X 10*3/uL (0.00-0.01); Neutrophils # (A) 11.47 X 10*3/uL (1.80-7.70); Neutrophils % (A) 92.9 %; Platelet Count 183 X 10*3/uL (140-440); RBC 4.54 X 10*6/uL (4.40-5.60); RDW 15.9 % (11.5-14.5); WBC 12.35 X 10*3/uL (4.50-10.00)
[2025-04-07 09:03] LABS: Blood Urea Nitrogen 16.8 mg/dL (9.0-27.0); Calcium 8.8 mg/dL (8.7-10.3); Carbon Dioxide 20.7 mmol/L (21.6-31.8); Chloride 110 mmol/L (96-109); Glucose 162 mg/dL (70-110); Potassium 4.5 mmol/L (3.5-5.5); Sodium 144 mmol/L (135-145)
[2025-04-07 10:58] LABS: Glucose,Whole Blood 200 mg/dL (70-110)
--- NOTE | 2025-04-07 14:09 | P.PN ---
Subjective Progress Note Date: 04/07/25 Patient is a 74-year-old male with past medical history significant for severe COPD/emphysema, previous pneumothoraces, bullectomy, PE, hypertension, hyperlipidemia, CAD, CVA/TIA, diabetes mellitus, GERD, hiatal hernia, frequent urinary tract infections with previous TURP, previous CA, PTSD, migraines. Does follow in the pulmonary office with Dr. Rascon. Of note, patient had a recent hospitalization in Feb, 2025 for urinary tract infection, as well as, possible left lower lung pneumonia. Urine positive Serratia marcescens. Ended up being discharged on 03/17/25 with a course of ciprofloxacin. Reportedly, did complete his antibiotics. At the last couple days developed increased cough with small hemoptysis mixed with sputum. Patient does take Eliquis on outpatient basis. Ended up going to his primary care provider, Dr. Giordano, for evaluation yesterday. She recommended that he come to the emergency department. Workup in the emergency department including chest x-ray showing bilateral lower lobe infiltrates, possible worse from comparison. CBC: WBC count 12.54, hemoglobin 14.8, platelets 224. CMP: Sodium 139, potassium 4.4, chloride 110, serum bicarb 24, BUN 16, creatinine 0.77, glucose 147. Lactic 1.1. LFTs not elevated. Troponin less than 0.012. NT proBNP low. EKG: Sinus rhythm, rate 68 bpm, no acute ischemic changes noted. UA unremarkable for infection. Patient currently being evaluated in the emergency department. Sitting comfortably at the edge of the bed. On room air. No acute respiratory distress. The last several days has developed increased weakness, dizziness, and headaches. Endorsing increased work of breathing with cough that is productive with occasional hemoptysis mixed with black sputum. Also, reporting associated low-grade fevers. Denies recent known sick contacts. Denies localized chest pain, heart palpitations, syncopal events, lower extremity edema, orthopnea. Denies dysuria, hematuria, flank pain. Afebrile. Current vital stable. The patient is seen today April 07, 2025 in follow-up on the regular medical floor. He is currently sitting up at the bedside. Awake and alert in no acute distress. He is currently maintaining O2 saturations in the 90s on room air oxygen. He is afebrile. Hemodynamically stable. Blood culture revealed no growth. Sputum culture reveals no growth. White count 12.3. Hemoglobin 13.0. Platelets 183. Sodium 144. Potassium 4.4. Bicarb 21. BUN 17. Creatinine 0.7. Glucose 162. He remains on DuoNeb inhalations, Solu-Medrol. He remains on Levaquin. Anticoagulated with Eliquis. Objective - Vital Signs Vital signs: Vital Signs Temp 98.0 F 04/07/25 08:00 Pulse 75 04/07/25 09:07 Resp 15 04/07/25 08:00 BP 126/84 04/07/25 08:00 Pulse Ox 93 L 04/07/25 08:00 FiO2 Intake & Output 04/06/25 04/07/25 04/07/25 18:59 06:59 18:59 Weight 83.915 kg Other: # Voids 1 2 # Bowel Movements 0 - Exam GENERAL EXAM: Alert, pleasant 74-year-old male, up in a chair, on room air, comfortable in no apparent distress. HEAD: Normocephalic. EYES: Normal reaction of pupils, equal size. NOSE: Clear with pink turbinates. THROAT: No erythema or exudates. NECK: No masses, no JVD. CHEST: No chest wall deformity. LUNGS: Equal air entry with few scattered rhonchi. CVS: S1 and S2 normal with no audible murmur, regular rhythm. ABDOMEN: No hepatosplenomegaly, normal bowel sounds, no guarding or rigidity. SPINE: No scoliosis or deformity SKIN: No rashes CENTRAL NERVOUS SYSTEM: No focal deficits, tone is normal in all 4 extremities. EXTREMITIES: There is no peripheral edema. No clubbing, no cyanosis. Peripheral pulses are intact. - Labs CBC & Chem 7: 04/07/25 02:56 04/07/25 02:56 Labs: Abnormal Lab Results - Last 24 Hours (Table) 04/06/25 04/06/25 04/07/25 Range/Units 16:41 20:40 02:56 WBC (4.50-10.00) X 10*3/uL MCHC (32.0-37.0) g/dL RDW (11.5-14.5) % Immature Gran # (0.00-0.04) X 10*3/uL Neutrophils # (1.80-7.70) X 10*3/uL Lymphocytes # (0.90-5.00) X 10*3/uL Eosinophils # (0.04-0.35) X 10*3/uL Chloride (96-109) mmol/L Carbon Dioxide (21.6-31.8) mmol/L Anion Gap (4.00-12.00) mmol/L BUN/Creatinine Ratio (12.00-20.00) Ratio Glucose (70-110) mg/dL POC Glucose (mg/dL) 230 H 236 H (70-110) mg/dL Hemoglobin A1c 7.6 H (<=6.0) % 04/07/25 04/07/25 04/07/25 Range/Units 02:56 02:56 06:07 WBC 12.35 H (4.50-10.00) X 10*3/uL MCHC 31.1 L (32.0-37.0) g/dL RDW 15.9 H (11.5-14.5) % Immature Gran # 0.05 H (0.00-0.04) X 10*3/uL Neutrophils # 11.47 H (1.80-7.70) X 10*3/uL Lymphocytes # 0.62 L (0.90-5.00) X 10*3/uL Eosinophils # 0 L (0.04-0.35) X 10*3/uL Chloride 110 H (96-109) mmol/L Carbon Dioxide 20.7 L (21.6-31.8) mmol/L Anion Gap 13.30 H (4.00-12.00) mmol/L BUN/Creatinine Ratio 24.00 H (12.00-20.00) Ratio Glucose 162 H (70-110) mg/dL POC Glucose (mg/dL) 187 H (70-110) mg/dL Hemoglobin A1c (<=6.0) % 04/07/25 Range/Units 10:57 WBC (4.50-10.00) X 10*3/uL MCHC (32.0-37.0) g/dL RDW (11.5-14.5) % Immature Gran # (0.00-0.04) X 10*3/uL Neutrophils # (1.80-7.70) X 10*3/uL Lymphocytes # (0.90-5.00) X 10*3/uL Eosinophils # (0.04-0.35) X 10*3/uL Chloride (96-109) mmol/L Carbon Dioxide (21.6-31.8) mmol/L Anion Gap (4.00-12.00) mmol/L BUN/Creatinine Ratio (12.00-20.00) Ratio Glucose (70-110) mg/dL POC Glucose (mg/dL) 200 H (70-110) mg/dL Hemoglobin A1c (<=6.0) % Microbiology - Last 24 Hours (Table) 04/05/25 23:28 Gram Stain - Preliminary Sputum Sputum Culture - Preliminary 04/05/25 20:50 Blood Culture - Preliminary Blood Assessment and Plan Assessment: Acute COPD exacerbation Acute dyspnea, secondary to above, chest x-ray showing bibasilar infiltrates, possibly slightly worse from comparison, consideration for bibasilar pneumonia or atelectasis. Recent urinary tract infection, urine positive for Serratia marcescens 03/17/2025, treated with course of ciprofloxacin History of bullous emphysema and previous bullectomy History of pneumothoraces History of previous TURP and frequent urinary tract infections History of E. coli sputum positive in August 2024 Remote history of pulmonary embolism, chronically anticoagulated on Eliquis Hypertension History of hyperlipidemia History of coronary disease with previous PCI/stents History of CVA/TIA Type 2 diabetes mellitus GERD History of hiatal hernia Chronic back pain Anxiety/PTSD History of migraines Plan: The patient is seen and evaluated Labs and medications reviewed Sputum and blood cultures pending Revealing no growth thus far Stable on room air oxygen Continued on Levaquin Continued on bronchodilators, steroids We will continue to follow I have personally seen and examined the patient, performed the documentation and the assessment and plan as written. Number of minutes spent on the visit: 10 Dictation was produced using [employer] software. Please excuse any grammatical, word or spelling errors.
--- NOTE | 2025-04-07 14:13 | CT ---
EXAMINATION TYPE: CT brain wo con DATE OF EXAM: 04/07/2025 COMPARISON: 10/07/2023 CLINICAL INDICATION: Male, 74 years old with history of severe headache; PHH, Severe headache CT DLP: 1215.4 mGycm Automated exposure control for dose reduction was used. Findings: The ventricles, basal cisterns and sulci over the convexities are mildly enlarged. No abnormal densit y is seen throughout the brain parenchyma. There is no mass effect or shift of the midline structures. There is no acute intra or extra-axial hemorrhage. The posterior fossa including the brainstem, fourth ventricle and cerebellar pontine angles appear no rmal. Intraorbital contents appear normal and symmetric. There are mild chronic changes in the maxillary sinuses.. The calvarium is intact. IMPRESSION: 1. No acute bleed or mass effect. 2. Mild senescent changes. 3. Mild to moderate stable chronic changes in the maxillary sinuses.. [facility], , 04/07/2025 2:11 PM
[2025-04-07] MEDS: TAMSULOSIN 0.4 MG CAP.ER.24H PO STA (14:33)
[2025-04-07 16:04] LABS: Glucose,Whole Blood 249 mg/dL (70-110)
[2025-04-07 21:01] LABS: Glucose,Whole Blood 213 mg/dL (70-110)
--- NOTE | 2025-04-07 22:23 | P.CONS ---
History of Present Illness - Reason for Consult Consult date: 04/07/25 Patient known/pneumonia Requesting physician: Autumn Kim - Chief Complaint Weakness shortness of breath and cough x days - History of Present Illness Patient is a 74-year-old male with a past medical history significant for COPD CVA TIA diabetes mellitus reflux ND prostate disorder recently admitted at this facility and was treated for UTI secondary Serratia marcescens patient has been brought to the hospital 2 days ago for evaluation of feeling weak wobbly gait and also having increasing shortness of breath the patient did have a cough moderate intensity productive of sputum with some blood mixed. Denies any tiarra hemoptysis did have some stable denies high-grade fever or presentation to the hospital the patient was afebrile and no fever has been rec orded subsequently patient was mildly tachycardic but not hypotensive mildly hypoxic but no need for supplemental oxygen patient did have a white count of 12.54 with a left shift creatinine 0.7 electrolytes are normal liver enzymes are normal patient did have negative influenza RSV and COVID testing urine for Legionella antigen negative blood and sputum culture obtained which are currently pending patient did have a chest x-ray bibasilar infiltrate correlate for atelectasis or pneumonia patient is currently being treated with Levaquin infectious disease was consulted for further management of antibiotic therapy patient did mention some improvement in his symptoms since being in the hospital Review of Systems Positive point and negatives has been mentioned in the HPI, complete review of systems was performed and all other systems are negative Past Medical History Past Medical History: COPD, CVA/TIA, Diabetes Mellitus, GERD/Reflux, Hearing Disorder / Deafness, Hyperlipidemia, Myocardial Infarction (ND), Musculoskeletal Disorder, Osteoarthritis (OA), Pneumonia, Prostate Disorder, Pulmonary Embolus (PE), Respiratory Disorder Additional Past Medical History / Comment(s): PE/RLL pneumonia/acute hypoxic failure. Portal bollous emphysema. low back pain, bilat sciatica; RLS; migraines, TIA , BPH, hearing aids, , diverticulosis. onset diabetes 08/11/19, multiple pneumothorax, O2 @2-4L NC prn. Adrenal insufficiency Last Myocardial Infarction Date:: 12/30/2019 History of Any Multi-Drug Resistant Organisms: None Reported Year Discovered:: 09/11/24 MDRO Source:: sputum Past Surgical History: Heart Catheterization With Stent, Hernia Repair, Orthopedic Surgery, Prostate Surgery, Tonsillectomy Additional Past Surgical History / Comment(s): Septoplasty/ESSS, EGD, colonoscopy with benign polyp, R inguinal hernia, umbilical hernia, pain clinic procedures, atilio fundloplication. upper bilat lung lobes removed 05/2021, prostate surgery 3 weeks ago. Prostate biopsy 01/20/24. Prostate laser surgery Past Anesthesia/Blood Transfusion Reactions: No Reported Reaction Additional Past Anesthesia/Blood Transfusion Reaction / Comm: no known family hx Date of Last Stent Placement:: Past Psychological History: No Psychological Hx Reported, PTSD Additional Psychological History / Comment(s): Pt resides with his spouse. He uses no assistive device. He drives. He has a nebulizer and home oxygen as needed. Smoking Status: Former smoker Past Alcohol Use History: None Reported Additional Past Alcohol Use History / Comment(s): Pt started smoking in 1967, 1-1-1/2 packs per day, quit in 1999 Past Drug Use History: None Reported - Past Family History Father History Unknown: Yes Family Medical History: No Reported History, Unable to Obtain Additional Family Medical History / Comment(s): Pt was adopted. Mother History Unknown: Yes Additional Family Medical History / Comment(s): Pt was adopted. Daughter(s) Additional Family Medical History / Comment(s): Children do not have any major medical problems. No history of blood clots. Medications and Allergies Home Medications Medication Instructions Recorded Confirmed Type Gabapentin 1,200 mg PO HS 04/09/16 04/06/25 History Fluticasone/Umeclidin/Vilanter 1 puff INHALATION RT-DAILY 10/25/21 04/06/25 History [Trelegy Ellipta 100-62.5-25] Gabapentin 600 mg PO DAILY 09/17/22 04/06/25 History Pantoprazole Sodium [Protonix] 40 mg PO BID 09/17/22 04/06/25 History Apixaban [Eliquis] 5 mg PO BID 05/17/23 04/06/25 History Clopidogrel Bisulfate [Clopidogrel] 75 mg PO DAILY 05/17/23 04/06/25 History Empagliflozin [Jardiance] 10 mg PO DAILY 05/17/23 04/06/25 History Ezetimibe [Zetia] 10 mg PO DAILY 05/17/23 04/06/25 History metFORMIN HCL 1,000 mg PO BID 05/17/23 04/06/25 History traZODone HCL [Desyrel] 200 mg PO HS 05/17/23 04/06/25 History Albuterol Inhaler [Ventolin Hfa 2 puff INHALATION RT-Q4H PRN 01/23/24 04/06/25 History Inhaler] Famotidine 40 mg PO HS 01/23/24 04/06/25 History HYDROcodone/APAP 7.5-325MG [Flournoy 1 tab PO TID 01/23/24 04/06/25 History 7.5-325] Isosorbide Mononitrate ER [Imdur] 30 mg PO DAILY 01/23/24 04/06/25 History Hydrocortisone [Cortef] 30 mg PO DAILY 03/17/25 04/06/25 History Lansoprazole 30 mg PO DAILY 03/17/25 04/06/25 History Losartan [Cozaar] 50 mg PO HS 03/17/25 04/06/25 History Metoprolol Tartrate [Lopressor] 12.5 mg PO DAILY 03/17/25 04/06/25 History Rosuvastatin [Crestor] 10 mg PO BENNETT 03/17/25 04/06/25 History SUMAtriptan succinate 100 mg PO DAILY PRN 03/17/25 04/06/25 History Triamcinolone 0.1% Cream [Kenalog 1 applic TOPICAL BID PRN 03/17/25 04/06/25 History 0.1% Cream] Budesonide/Formoterol Fumarate 2 puff INHALATION RT-BID 04/06/25 04/06/25 History [Breyna 160-4.5 Mcg Inhaler] Vonoprazan Fumarate [Voquezna] 10 mg PO HS 04/06/25 04/06/25 History Allergies Allergy/AdvReac Type Severity Reaction Status Date / Time nitrofurantoin Allergy Unknown Verified 04/06/25 07:52 [From Macrobid] Childhood Physical Exam Vitals: Vital Signs Temp Pulse Pulse Resp BP BP Pulse Ox 04/07/25 09:07 75 04/07/25 08:57 74 04/07/25 08:00 98.0 F 90 15 126/84 93 L 04/07/25 02:05 98.8 F 93 16 108/71 95 04/06/25 20:21 75 04/06/25 20:11 93 04/06/25 19:55 97.5 F L 99 16 112/71 93 L 04/06/25 16:22 98 18 110/64 90 L 04/06/25 16:05 84 18 04/06/25 15:55 82 18 04/06/25 13:00 74 18 122/70 99 Intake and Output 04/06/25 04/07/25 04/07/25 22:59 06:59 14:59 Other: # Voids 1 2 # Bowel Movements 0 Weight 83.915 kg GENERAL DESCRIPTION: Elderly male lying in bed, no distress. No tachypnea or accessory muscle of respiration use. HEENT: Shows Pallor , no scleral icterus. Oral mucous membrane is dry. NECK: Trachea central, no thyromegaly. LUNGS: Unlabored breathing. Coarse breath sounds bilaterally HEART: S1, S2, regular rate and rhythm. No loud murmur ABDOMEN: Soft, no tenderness , guarding or rigidity, no organomegaly EXTREMITIES: No edema of feet. SKIN: No rash, no masses palpable. NEUROLOGICAL: The patient is awake, alert, oriented x3, mood and affect normal. Results CBC & Chem 7: 04/07/25 02:56 04/07/25 02:56 Labs: Abnormal Lab Results - Last 24 Hours (Table) 04/06/25 04/06/25 04/07/25 Range/Units 16:41 20:40 02:56 WBC (4.50-10.00) X 10*3/uL MCHC (32.0-37.0) g/dL RDW (11.5-14.5) % Immature Gran # (0.00-0.04) X 10*3/uL Neutrophils # (1.80-7.70) X 10*3/uL Lymphocytes # (0.90-5.00) X 10*3/uL Eosinophils # (0.04-0.35) X 10*3/uL Chloride (96-109) mmol/L Carbon Dioxide (21.6-31.8) mmol/L Anion Gap (4.00-12.00) mmol/L BUN/Creatinine Ratio (12.00-20.00) Ratio Glucose (70-110) mg/dL POC Glucose (mg/dL) 230 H 236 H (70-110) mg/dL Hemoglobin A1c 7.6 H (<=6.0) % 04/07/25 04/07/25 04/07/25 Range/Units 02:56 02:56 06:07 WBC 12.35 H (4.50-10.00) X 10*3/uL MCHC 31.1 L (32.0-37.0) g/dL RDW 15.9 H (11.5-14.5) % Immature Gran # 0.05 H (0.00-0.04) X 10*3/uL Neutrophils # 11.47 H (1.80-7.70) X 10*3/uL Lymphocytes # 0.62 L (0.90-5.00) X 10*3/uL Eosinophils # 0 L (0.04-0.35) X 10*3/uL Chloride 110 H (96-109) mmol/L Carbon Dioxide 20.7 L (21.6-31.8) mmol/L Anion Gap 13.30 H (4.00-12.00) mmol/L BUN/Creatinine Ratio 24.00 H (12.00-20.00) Ratio Glucose 162 H (70-110) mg/dL POC Glucose (mg/dL) 187 H (70-110) mg/dL Hemoglobin A1c (<=6.0) % 04/07/25 Range/Units 10:57 WBC (4.50-10.00) X 10*3/uL MCHC (32.0-37.0) g/dL RDW (11.5-14.5) % Immature Gran # (0.00-0.04) X 10*3/uL Neutrophils # (1.80-7.70) X 10*3/uL Lymphocytes # (0.90-5.00) X 10*3/uL Eosinophils # (0.04-0.35) X 10*3/uL Chloride (96-109) mmol/L Carbon Dioxide (21.6-31.8) mmol/L Anion Gap (4.00-12.00) mmol/L BUN/Creatinine Ratio (12.00-20.00) Ratio Glucose (70-110) mg/dL POC Glucose (mg/dL) 200 H (70-110) mg/dL Hemoglobin A1c (<=6.0) % Microbiology - Last 24 Hours (Table) 04/05/25 23:28 Gram Stain - Preliminary Sputum Sputum Culture - Preliminary 04/05/25 20:50 Blood Culture - Preliminary Blood Assessment and Plan (1) Pneumonia Current Visit: Yes Status: Acute Code(s): J18.9 - PNEUMONIA, UNSPECIFIED ORGANISM SNOMED Code(s): 298410313 Plan: 1patient presented to hospital with weakness wobbly gait did have a cough b ringing up purulent sputum with some blood mixed did have elevated white count with bibasilar infiltrate on the chest x-ray highly suspicious for pneumonia in this patient did have underlying history of COPD. 2blood and sputum culture have obtained results will be followed. 3we will check immunoglobulin levels, complement HIV test to complete the workup for any immunodeficiency may have responsible for these recurrent pneumonias 4patient empirically with Levaquin while waiting for the workup to be completed Question concern answered We will follow on clinical condition and cultures to further adjust medication if needed Thank you for this consultation we will follow the patient along with you Dictation was produced using [employer] dictation software. please excuse any grammatical, word or spelling errors. Time with Patient: Greater than 30
--- NOTE | 2025-04-07 22:36 | PN ---
PROGRESS NOTE DATE OF SERVICE: 04/07/2025 SUBJECTIVE: This is a 74-year-old gentleman who was admitted with COPD acute exacerbation as well as bilateral pneumonia, possibly gram-negative pneumonia. No chest pain. No palpitation. Multiple consultants are following the patient closely. The chest x-ray from yesterday was reviewed. PHYSICAL EXAMINATION: VITAL SIGNS: Pulse is 90, blood pressure 126/84, respirations 15. CHEST: Few scattered rhonchi and crackles. ABDOMEN: Soft. NERVOUS SYSTEM: Nonfocal. LABORATORY DATA: Reviewed. ASSESSMENT: 1. Chronic obstructive pulmonary disease acute exacerbation with acute bilateral pneumonia with possibly gram-negative. 2. Elevated WBC. 3. Diabetes mellitus type 2. 4. History of myocardial infarction. 5. History of pulmonary embolism. 6. History of coronary artery disease with stent. RECOMMENDATIONS: Recommend to continue current management and continue symptomatic treatment. Otherwise, continue with bronchodilators, empiric antibiotics. Continue with Eliquis. Continue with IV steroids. Monitor blood sugars closely. Further recommendations to follow. MMODL / IJN: [id number] /
[2025-04-08 06:15] LABS: Glucose,Whole Blood 165 mg/dL (70-110)
--- NOTE | 2025-04-08 07:57 | XR ---
EXAMINATION TYPE: XR chest 1V portable DATE OF EXAM: 04/08/2025 6:51 AM COMPARISON: Chest radiographs from 04/06/2025 CLINICAL INDICATION: Male, 74 years old with history of PNA; TECHNIQUE: XR chest 1V portable Frontal view of the chest. FINDINGS: Lungs/Pleura: Improved aeration of the right basilar airspace opacities. No evidence of pneumothorax or pleural effusion. Pulmonary vascularity: Unremarkable. Heart/mediastinum: Cardiomediastinal silhouette is unremarkable. Musculoskeletal: No acute osseous pathology. Other findings: None IMPRESSION: Improved aeration of the right basilar airspace opacities. [facility], , 04/08/2025 7:55 AM
[2025-04-08] MEDS: TAMSULOSIN 0.4 MG CAP.ER.24H PO SCH (08:36)
[2025-04-08 08:46] LABS: Immunoglobulin M 53.5 mg/dL (40.0-280.0)
[2025-04-08 11:56] LABS: Glucose,Whole Blood 205 mg/dL (70-110)
[2025-04-08] MEDS ORDERED: RX INFO: IV CONTRAST WAS GIVEN 1 EACH MISC MISCELLANE PRN (13:20)
[2025-04-08 13:33] LABS: HIV 2 AB Non-Reactive (Non-Reactive); HIV AB P24 Non-Reactive (Non-Reactive); HIV P24 AG Non-Reactive (Non-Reactive)
--- NOTE | 2025-04-08 13:44 | P.PN ---
Subjective Progress Note Date: 04/08/25 Patient is a 74-year-old male with past medical history significant for severe COPD/emphysema, previous pneumothoraces, bullectomy, PE, hypertension, hyperlipidemia, CAD, CVA/TIA, diabetes mellitus, GERD, hiatal hernia, frequent urinary tract infections with previous TURP, previous [place], PTSD, migraines. Does follow in the pulmonary office with Dr. Rascon. Of note, patient had a recent hospitalization in Feb, 2025 for urinary tract infection, as well as, possible left lower lung pneumonia. Urine positive Serratia marcescens. Ended up being discharged on 03/17/25 with a course of ciprofloxacin. Reportedly, did complete his antibiotics. At the last couple days developed increased cough with small hemoptysis mixed with sputum. Patient does take Eliquis on outpatient basis. Ended up going to his primary care provider, Dr. Giordano, for evaluation yesterday. She recommended that he come to the emergency department. Workup in the emergency department including chest x-ray showing bilateral lower lobe infiltrates, possible worse from comparison. CBC: WBC count 12.54, hemoglobin 14.8, platelets 224. CMP: Sodium 139, potassium 4.4, chloride 110, serum bicarb 24, BUN 16, creatinine 0.77, glucose 147. Lactic 1.1. LFTs not elevated. Troponin less than 0.012. NT proBNP low. EKG: Sinus rhythm, rate 68 bpm, no acute ischemic changes noted. UA unremarkable for infection. Patient currently being evaluated in the emergency department. Sitting comfortably at the edge of the bed. On room air. No acute respiratory distress. The last several days has developed increased weakness, dizziness, and headaches. Endorsing increased work of breathing with cough that is productive with occasional hemoptysis mixed with black sputum. Also, reporting associated low-grade fevers. Denies recent known sick contacts. Denies localized chest pain, heart palpitations, syncopal events, lower extremity edema, orthopnea. Denies dysuria, hematuria, flank pain. Afebrile. Current vital stable. The patient is seen today April 07, 2025 in follow-up on the regular medical floor. He is currently sitting up at the bedside. Awake and alert in no acute distress. He is currently maintaining O2 saturations in the 90s on room air oxygen. He is afebrile. Hemodynamically stable. Blood culture revealed no growth. Sputum culture reveals no growth. White count 12.3. Hemoglobin 13.0. Platelets 183. Sodium 144. Potassium 4.4. Bicarb 21. BUN 17. Creatinine 0.7. Glucose 162. He remains on DuoNeb inhalations, Solu-Medrol. He remains on Levaquin. Anticoagulated with Eliquis. The patient is seen today April 08, 2025 in follow-up on the regular medical floor. He is awake and alert in no acute distress. Sitting up in bed. Denies any worsening shortness of breath, cough or congestion. A bit better today compared to yesterday but not back to his baseline. He is maintaining good O2 saturations in the 90s on 2 L/min per nasal cannula. He is afebrile. Hemodynamically stable. Glucose 165. Total protein 5.0. IgG 615. IgE 134. IgM 53.5. IgA 243. HIV screen negative. He remains on DuoNeb inhalations, Solu-Medrol. Continued on Levaquin. Anticoagulated with Eliquis. Objective - Vital Signs Vital signs: Vital Signs Temp 97.7 F 04/08/25 07:40 Pulse 78 04/08/25 08:37 Resp 17 04/08/25 07:40 BP 112/73 04/08/25 07:40 Pulse Ox 93 L 04/08/25 08:28 FiO2 Intake & Output 04/07/25 04/08/25 04/08/25 18:59 06:59 18:59 Intake Total 150 Balance 150 Intake: Intake, IV Titration 150 Amount Levofloxacin 750Mg-D5w 150 Pmx 750 mg In Dextrose/ Water 1 150ml.bag @ 100 mls/hr IVPB Q24H [facility] Rx#: [id number] Other: Voiding Method Toilet Toilet # Voids 3 3 - Exam GENERAL EXAM: Alert, pleasant 74-year-old male, on 2 L/min per nasal cannula, comfortable in no apparent distress. HEAD: Normocephalic. EYES: Normal reaction of pupils, equal size. NOSE: Clear with pink turbinates. THROAT: No erythema or exudates. NECK: No masses, no JVD. CHEST: No chest wall deformity. LUNGS: Equal air entry with few scattered rhonchi. CVS: S1 and S2 normal with no audible murmur, regular rhythm. ABDOMEN: No hepatosplenomegaly, normal bowel sounds, no guarding or rigidity. SPINE: No scoliosis or deformity SKIN: No rashes CENTRAL NERVOUS SYSTEM: No focal deficits, tone is normal in all 4 extremities. EXTREMITIES: There is no peripheral edema. No clubbing, no cyanosis. Periphe ral pulses are intact. - Labs CBC & Chem 7: 04/07/25 02:56 04/07/25 02:56 Labs: Abnormal Lab Results - Last 24 Hours (Table) 04/07/25 04/07/25 04/08/25 Range/Units 16:02 21:00 02:54 POC Glucose (mg/dL) 249 H 213 H (70-110) mg/dL Total Protein (PEP) 5.0 L (6.2-8.2) g/dL IgG 615.0 L (700.0-1600.0) mg/dL IgE 134.00 H (0.00-114.00) IU/mL 04/08/25 04/08/25 Range/Units 06:14 11:55 POC Glucose (mg/dL) 165 H 205 H (70-110) mg/dL Total Protein (PEP) (6.2-8.2) g/dL IgG (700.0-1600.0) mg/dL IgE (0.00-114.00) IU/mL Microbiology - Last 24 Hours (Table) 04/05/25 20:50 Blood Culture - Preliminary Blood 04/05/25 23:28 Gram Stain - Preliminary Sputum Sputum Culture - Preliminary Assessment and Plan Assessment: Acute COPD exacerbation Acute dyspnea, secondary to above, chest x-ray showing bibasilar infiltrates, possibly slightly worse from comparison, consideration for bibasilar pneumonia or atelectasis Recent urinary tract infection, urine positive for Serratia marcescens , treated with course of ciprofloxacin History of bullous emphysema and previous bullectomy History of pneumothoraces History of previous TURP and frequent urinary tract infections History of E. coli sputum positive in August 2024 Remote history of pulmonary embolism, chronically anticoagulated on Eliquis Hypertension History of hyperlipidemia History of coronary disease with previous PCI/stents History of CVA/TIA Type 2 diabetes mellitus GERD History of hiatal hernia Chronic back pain Anxiety/PTSD History of migraines Plan: The patient is seen and evaluated Labs and medications reviewed Sputum and blood cultures pending Revealing no growth thus far Continued on Levaquin Continued on bronchodilators, steroids On 2 L/min per nasal cannula Titrate down/off the FiO2 as tolerated We will continue to follow I have personally seen and examined the patient, performed the documentation and the assessment and plan as written. Number of minutes spent on the visit: 10 Dictation was produced using [employer] dictation software. Please excuse any grammatical, word or spelling errors.
[2025-04-08 14:21] LABS: Glucose,Whole Blood 181 mg/dL (70-110)
--- NOTE | 2025-04-08 14:44 | XR ---
EXAMINATION TYPE: XR chest 1V portable DATE OF EXAM: 04/08/2025 2:19 PM COMPARISON: Chest radiographs from 04/08/2025 CLINICAL INDICATION: Male, 74 years old with history of shortness of breath; TECHNIQUE: XR chest 1V portable Frontal view of the chest. FINDINGS: Lungs/Pleura: Large right pneumothorax identified which is new. There is no evidence of pleural effus ion, focal consolidation, or left pneumothorax. Pulmonary vascularity: Unremarkable. Heart/mediastinum: Cardiomediastinal silhouette is unremarkable. Musculoskeletal: No acute osseous pathology. IMPRESSION: 1. Large right pneumothorax. 2. Left lower lobe airspace opacities. Findings communicated to [facility] on 04/08/2025 2:[address] Willy Kaba. [facility], , 04/08/2025 2:42 PM
[2025-04-08] MEDS: HYDROmorphone 1 MG/ML 1 ML SYRINGE IVP STA (15:13)
--- NOTE | 2025-04-08 15:23 | XR ---
EXAMINATION TYPE: XR chest 1V portable DATE OF EXAM: 04/08/2025 3:16 PM COMPARISON: Chest radiographs from same day CLINICAL INDICATION: Male, 74 years old with history of Pneumothorax; [facility] TECHNIQUE: XR chest 1V portable Frontal view of the chest. FINDINGS: FINDINGS: Lungs/Pleura: Large right pneumothorax identified. There is no evidence of pleural effusion, focal co nsolidation, or left pneumothorax. Pulmonary vascularity: Unremarkable. Heart/mediastinum: Cardiomediastinal silhouette is unremarkable. Musculoskeletal: No acute osseous pathology. IMPRESSION: 1. Large right pneumothorax. 2. Left lower lobe airspace opacities. Findings communicated to [facility] on 04/08/2025 2:[address] Willy Kaba. [facility], , 04/08/2025 3:21 PM
[2025-04-08] MEDS ORDERED: Magnesium Replacement Protocol 1 EACH MISC MISCELLANE PRN (15:34)
[2025-04-08] MEDS ORDERED: Phosphorus Replacement Protoco 1 EACH MISC MISCELLANE PRN (15:34)
[2025-04-08] MEDS ORDERED: Potassium Replacement Protocol 1 EACH MISC MISCELLANE PRN (15:34)
[2025-04-08] MEDS ORDERED: NALOXONE 0.4 MG/ML 1 ML VIAL IV PRN (15:34)
--- NOTE | 2025-04-08 15:55 | P.PN ---
Subjective Progress Note Date: 04/08/25 Principal diagnosis: Reason for follow-up is pneumonia Patient is a 74-year-old male with a past medical history significant for COPD CVA TIA diabetes mellitus reflux [place] prostate disorder presents to the hospital with shortness of breath cough has been diagnosed with pneumonia prompted this consultation. On today's evaluation that is 04/08/2025,the patient remains to be afebrile, patient was doing better this morning however while walking around he developed sudden pain has been diagnosed with bilateral pneumothorax and transferred to the ICU patient denies any worsening cough or sputum production no nausea vomiting or diarrhea. Patient did not have CBC done today IgG level was low HIV testing negative chest x-ray with large right pneumothorax left lower lobe airspace opacities sputum is growing fungus in addition to moderate gram-positive cocci in chains and negative gram-negative bacilli Objective - Vital Signs Vital signs: Vital Signs Temp 97.7 F 04/08/25 07:40 Pulse 78 04/08/25 08:37 Resp 17 04/08/25 07:40 BP 112/73 04/08/25 07:40 Pulse Ox 93 L 04/08/25 08:28 FiO2 Intake & Output 04/07/25 04/08/25 04/08/25 18:59 06:59 18:59 Intake Total 150 Balance 150 Intake: Intake, IV Titration 150 Amount Levofloxacin 750Mg-D5w 150 Pmx 750 mg In Dextrose/ Water 1 150ml.bag @ 100 mls/hr IVPB Q24H [facility] Rx#: [id number] Other: Voiding Method Toilet Toilet # Voids 3 3 - Exam GENERAL DESCRIPTION: An elderly male lying in bed in mild distress RESPIRATORY SYSTEM: Unlabored breathing , coarse breath sounds bilaterally HEART: S1 S2 regular rate and rhythm , ABDOMEN: Soft , no tenderness EXTREMITIES: No edema feet - Labs CBC & Chem 7: 04/07/25 02:56 04/07/25 02:56 Labs: Abnormal Lab Results - Last 24 Hours (Table) 04/07/25 04/07/25 04/07/25 Range/Units 10:57 16:02 21:00 POC Glucose (mg/dL) 200 H 249 H 213 H (70-110) mg/dL Total Protein (PEP) (6.2-8.2) g/dL IgG (700.0-1600.0) mg/dL IgE (0.00-114.00) IU/mL 04/08/25 04/08/25 Range/Units 02:54 06:14 POC Glucose (mg/dL) 165 H (70-110) mg/dL Total Protein (PEP) 5.0 L (6.2-8.2) g/dL IgG 615.0 L (700.0-1600.0) mg/dL IgE 134.00 H (0.00-114.00) IU/mL Microbiology - Last 24 Hours (Table) 04/05/25 20:50 Blood Culture - Preliminary Blood 04/05/25 23:28 Gram Stain - Preliminary Sputum Sputum Culture - Preliminary Assessment and Plan (1) Pneumonia Current Visit: Yes Status: Acute Code(s): J18.9 - PNEUMONIA, UNSPECIFIED ORGANISM SNOMED Code(s): 913475417 Plan: 1patient presented to hospital with weakness wobbly gait did have a cough bringing up purulent sputum with some blood mixed did have elevated white count with bibasilar infiltrate on the chest x-ray highly suspicious for pneumonia in this patient did have underlying history of COPD. 2blood cultures are pending and sputum culture currently growing fungus in addition to gram-negative and gram-positive 3patient did have significant worsening of his clinical condition develop large pneumothorax requiring chest tube placement and transferred to the ICU on the basis of the sputum cultures antibiotic will be broadened to cefepime 2 g every 8 hours and will also add voriconazole while waiting for the ID and sensitivity of the fungus prognosis is guarded Dictation was produced using [employer] dictation software. please excuse any grammatical, word or spelling errors. Time with Patient: Greater than 30
--- NOTE | 2025-04-08 16:10 | XR ---
EXAMINATION TYPE: XR chest 1V portable DATE OF EXAM: 04/08/2025 3:39 PM COMPARISON: Chest radiographs from 04/08/2025. CLINICAL INDICATION: Male, 74 years old with history of s/p thoravent; [facility] TECHNIQUE: XR chest 1V portable Frontal view of the chest. FINDINGS: Lungs/Pleura: There is no evidence of pleural effusion, focal consolidation, or pneumothorax. Pulmonary vascularity: Unremarkable. Heart/mediastinum: Cardiomediastinal silhouette is unremarkable. Musculoskeletal: No acute osseous pathology. Other findings: None Lines/Tubes:Right thoracotomy tube is present without evidence of pneumothorax. IMPRESSION: Right thoracotomy tube device now present, no persistent right pneumothorax definitively visualized. [facility], , 04/08/2025 4:08 PM
[2025-04-08] MEDS: CEFEPIME 2 GM in SODIUM CHLORIDE 0.9% 100 ML IVPB SCH (17:02)
[2025-04-08 17:13] LABS: Glucose,Whole Blood 171 mg/dL (70-110)
[2025-04-08] MEDS: HYDROmorphone 1 MG/ML 1 ML SYRINGE IVP PRN (17:51)
[2025-04-08 19:49] LABS: Glucose,Whole Blood 180 mg/dL (70-110)
--- NOTE | 2025-04-08 21:41 | OP ---
OPERATIVE REPORT DATE OF SERVICE : PROCEDURE PERFORMED: Placement of a right-sided chest tube/Thora-Vent. PREOPERATIVE DIAGNOSIS: Large right-sided pneumothorax/spontaneous. POSTOPERATIVE DIAGNOSIS: Large right-sided pneumothorax/spontaneous. ANESTHESIA USED: 10 mL of 1% lidocaine and the patient was given Dilaudid 2 mg IV push. PROCEDURE IN DETAILS: The patient was placed in a sitting upright position, the area below the right clavicle, not the scapula. The area below the right clavicle was prepared in a sterile fashion. Drapes were applied. The area at the level of the 3rd and 4th intercostal space was locally anesthetized, and using 10 mL of lidocaine and the pleural space was entered with noticing a bubble. Then, a small tiny incision was made at the level between the 3rd and 4th intercostal space, and I was able to insert a 13-Kazakh Thora- Vent with a trocar. The trocar and the catheter were advanced into the pleural space until the pleural space was entered. Then, the catheter was advanced over the trocar into the pleural space. The Thora-Vent was connected to Pleur-evac and connected to suction and was clearly evidence of air leak and chest x-ray showed adequate placement of the Thora-Vent and re-expansion of the right lung. Procedure was well tolerated, no complications. MMODL / IJN: [id number] /
[2025-04-09] MEDS: ONDANSETRON 4 MG/2 ML VIAL IVP PRN (02:47)
[2025-04-09 04:05] LABS: Basophils # (A) 0.02 10*3/uL (0.00-0.10); Basophils % (A) 0.1 %; HCT 45.3 % (39.6-50.0); HGB 14.4 g/dL (13.0-17.0); Lymphocytes # (A) 0.29 10*3/uL (0.90-5.00); Lymphocytes % (A) 1.5 %; MCH 28.9 pg (27.0-32.0); MCHC 31.8 g/dL (32.0-37.0); MCV 90.8 fL (80.0-97.0); Mean Platelet Volume 9.1 fL (9.5-12.2); Monocytes # (A) 0.35 10*3/uL (0.20-1.00); Monocytes % (A) 1.8 %; Neutrophils # (A) 18.46 10*3/uL (1.80-7.70); Neutrophils % (A) 95.8 %; Platelet Count 232 10*3/uL (140-440); RBC 4.99 10*6/uL (4.40-5.60); RDW 15.6 % (11.5-14.5); WBC 19.27 10*3/uL (4.50-10.00)
--- NOTE | 2025-04-09 05:04 | P.PN ---
Subjective Progress Note Date: 04/08/25 This is a pleasant 74-year-old male who was recently admitted with COPD exacerbation as well as bilateral pneumonia being closely monitored with infectious disease and pulmonary following. Preliminary sputum culture showing fungal isolation and will await finalized cultures. Discussed with micro lab ab out running sensitivities to ensure appropriate antibiotics. Patient reported to feeling much better and would like to go home and had been cleared by pulmonary and undergoing home oxygen testing with walking and started feeling short of breath like he had felt when he had a previous collapsed lung. Per nursing staff a team was called as they were absent lung sounds on the right with concerns of respiratory distress. Stat chest x-ray was performed revealing a right pneumothorax and patient was brought to the ICU per pulmonary for chest tube insertion and closer monitoring. Will follow-up with repeat chest x-ray in a.m. Review of systems: Constitutional: No reports of fatigue, fever, or chills Cardiovascular: No reports of chest pain or palpitations Respiratory: reports of shortness of breath, occasional cough GI: No reports of nausea, no reports of vomiting, occasional loose stools : No reports of dysuria or retention Neurovascular: No reports of generalized weakness All medications have been reviewed PHYSICAL EXAMINATION: GENERAL: The patient is alert and oriented x4, Well developed, thin built, elderly appearing HEENT: Pupils are round and equally reacting to light. EOMI. no scleral icterus. No conjunctival pallor. Normocephalic, atraumatic. No pharyngeal erythema. No thyromegaly. CARDIOVASCULAR: S1 and S2 muffled PULMONARY: diminished breath sounds bilaterally with faint expiratory wheezing with scattered rhonchi noted. ABDOMEN: soft. Nontender on exam. Thin. Non-distended, normoactive bowel sounds. No palpable organomegaly. MUSCULOSKELETAL: No joint swelling or deformity. EXTREMITIES: No cyanosis, clubbing, or pedal edema. NEUROLOGICAL: Gross neurological examination did not reveal any focal deficits. SKIN: No rashes. Assessment: Chronic obstructive pulmonary disease, acute exacerbation with acute bilateral pneumonia with possibly gram-negative, sputum cultures pending Spontaneous right pneumothorax, 04/08/2025 Acute hypoxic respiratory failure secondary to above Leukocytosis, multifactorial, likely secondary to acute bilateral pneumonia with a component of steroid effect Diabetes mellitus, type II History of pulmonary embolism history of coronary artery disease with stenting GI prophylaxis DVT prophylaxis Full code Plan: Recommend to continue with current medications and management with pulmonary and infectious disease following. Patient was initially wanting to go home had been cleared by pulmonary once cleared by other consultations and was being tested for home oxygen per nursing staff and started developing shortness of breath and reported to staff that he felt how he previously felt when he had a collapsed lung. Nursing assessment revealed absent lung sounds on the right and in a team was called. Stat chest x-ray revealed a right pneumothorax, spontaneous and patient was brought to the ICU for chest tube placement and closer monitoring Infectious disease following as well and sputum cultures are preliminary showing a fungal isolation and medications being adjusted Will follow-up on repeat labs and monitor electrolytes closely. Replace electrolytes per protocol Continue monitoring Accu-Cheks AC and at bedtime and will adjust insulins accordingly Repeat chest x-ray ordered for a.m. Recommend incentive spirometer use at least 10 times every hour while awake The impression and plan of care has been dictated by Ying Purdy, nurse practitioner as directed. Dr. Kulwinder MD I have performed a history and examination and MDM of this patient, discussed the same with the dictator, and agree with the dictator's assessment and plan as written ,documented as a scribe. Based on total visit time, I have performed more than 50% of the visit. Any additional findings or plans will be noted. Objective - Vital Signs Vital signs: Vital Signs Temp 97.7 F 04/08/25 07:40 Pulse 78 04/08/25 08:37 Resp 17 04/08/25 07:40 BP 112/73 04/08/25 07:40 Pulse Ox 93 L 04/08/25 08:28 FiO2 Intake & Output 04/07/25 04/08/25 04/08/25 18:59 06:59 18:59 Intake Total 150 Balance 150 Intake: Intake, IV Titration 150 Amount Levofloxacin 750Mg-D5w 150 Pmx 750 mg In Dextrose/ Water 1 150ml.bag @ 100 mls/hr IVPB Q24H [facility] Rx#: [id number] Other: Voiding Method Toilet Toilet # Voids 3 3 - Labs CBC & Chem 7: 04/09/25 03:13 04/07/25 02:56 Labs: Abnormal Lab Results - Last 24 Hours (Table) 04/07/25 04/07/25 04/08/25 Range/Units 16:02 21:00 02:54 POC Glucose (mg/dL) 249 H 213 H (70-110) mg/dL Total Protein (PEP) 5.0 L (6.2-8.2) g/dL IgG 615.0 L (700.0-1600.0) mg/dL IgE 134.00 H (0.00-114.00) IU/mL 04/08/25 04/08/25 Range/Units 06:14 11:55 POC Glucose (mg/dL) 165 H 205 H (70-110) mg/dL Total Protein (PEP) (6.2-8.2) g/dL IgG (700.0-1600.0) mg/dL IgE (0.00-114.00) IU/mL Microbiology - Last 24 Hours (Table) 04/05/25 20:50 Blood Culture - Preliminary Blood 04/05/25 23:28 Gram Stain - Preliminary Sputum Sputum Culture - Preliminary
[2025-04-09 06:34] LABS: Glucose,Whole Blood 194 mg/dL (70-110)
[2025-04-09 07:33] LABS: Basophils # (A) 0.02 10*3/uL (0.00-0.10); Basophils % (A) 0.1 %; HCT 42.9 % (39.6-50.0); HGB 13.9 g/dL (13.0-17.0); Lymphocytes # (A) 0.42 10*3/uL (0.90-5.00); Lymphocytes % (A) 2.2 %; MCHC 32.4 g/dL (32.0-37.0); MCV 89.4 fL (80.0-97.0); Mean Platelet Volume 8.8 fL (9.5-12.2); Monocytes # (A) 0.49 10*3/uL (0.20-1.00); Monocytes % (A) 2.6 %; Neutrophils # (A) 17.63 10*3/uL (1.80-7.70); Neutrophils % (A) 94.4 %; Platelet Count 233 10*3/uL (140-440); RDW 15.5 % (11.5-14.5)
[2025-04-09 07:59] LABS: African American GFR (CKD) >90 (>60 ml/min/1.73 sqM); Anion Gap 10 mmol/L; Blood Urea Nitrogen 45 mg/dL (9-20); Calcium 9.7 mg/dL (8.4-10.2); Carbon Dioxide 24 mmol/L (22-30); Chloride 106 mmol/L (98-107); Glucose 190 mg/dL (74-99); Non-African American GFR(CKD) >90 (>60 ml/min/1.73 sqM); Sodium 140 mmol/L (137-145)
--- NOTE | 2025-04-09 08:16 | XR ---
EXAMINATION TYPE: XR chest 1V DATE OF EXAM: 04/09/2025 5:57 AM COMPARISON: Chest radiographs from 04/08/2025. CLINICAL INDICATION: Male, 74 years old with history of thoravent right chest; [facility] TECHNIQUE: XR chest 1V Frontal view of the chest. FINDINGS: Lungs/Pleura: Prominent interstitial lung markings are seen scattered throughout the lungs. No eviden ce of focal consolidation, pneumothorax or pleural effusion. Pulmonary vascularity: Unremarkable. Heart/mediastinum: Cardiomediastinal silhouette is unremarkable. Musculoskeletal: No acute osseous pathology. Other findings: None Lines/Tubes: Right thoracotomy tube is present without pneumothorax visualized. IMPRESSION: Right thoracotomy tube without definitive pneumothorax. [facility], , 04/09/2025 8:14 AM
--- NOTE | 2025-04-09 10:36 | P.CONS ---
History of Present Illness - Reason for Consult Consult date: 04/09/25 Hematemesis Requesting physician: Clark Gastelum - Chief Complaint Shortness of breath - History of Present Illness Pleasant 74-year-old male with past medical history including severe COPD/emphysema, previous pneumo thoraces, cholectomy, pulmonary embolism, hypertension, hyperlipidemia, coronary artery disease, CVA/TIA, diabetes mellitus, GERD, hiatal hernia frequent UTIs previous CT iron migraines who presented to the emergency department with complaints of shortness of breath and hemoptysis. Patient was admitted to the ICU. He was found to have a pneumothorax yesterday and underwent chest tube with Thora vent. Patient states that he was having shortness of breath, dizziness and cough at home. Apparently yesterday evening after chest tube placement patient had couple emesis dark red blood. He had a positive gastric occult. Gastroenterology was consulted for hematemesis. Patient states he has not had any more vomiting. Denies any abdominal pain. He is on anticoagulation with Eliquis. Last upper endoscopy was in 2021 with findings of grade B reflux esophagitis and hiatal hernia. Hemoglobin stable at 14.4. Hemodynamically stable. Review of Systems REVIEW OF SYSTEMS: CARDIOPULMONARY: No chest pain. Positive shortness of breath, pneumothorax status post Thora vent. Hemoptysis, cough. Gastrointestinal: No abdominal pain. No nausea or vomiting. Hematemesis. No rectal bleeding, or melena. GENITOURINARY: No dysuria or hematuria. MUSCULOSKELETAL: Reports normal range of motion., Joint pain. SKIN: No rashes. No jaundice. ENDOCRINE: No chills, fevers. No excessive weight gain or loss. No polydipsia or polyuria. PSYCHIATRIC: Unremarkable. NEUROLOGY: No change in mental status. Denies dizziness, headache. ENT: Vision unremarkable. CONSTITUTIONAL: No recent weight loss. No fever, chills, night sweats. Past Medical History Past Medical History: COPD, CVA/TIA, Diabetes Mellitus, GERD/Reflux, Hearing Disorder / Deafness, Hyperlipidemia, Myocardial Infarction (CT), Musculoskeletal Disorder, Osteoarthritis (OA), Pneumonia, Prostate Disorder, Pulmonary Embolus (PE), Respiratory Disorder Additional Past Medical History / Comment(s): PE/RLL pneumonia/acute hypoxic failure. Portal bollous emphysema. low back pain, bilat sciatica; RLS; mi graines, TIA , BPH, hearing aids, , diverticulosis. onset diabetes 08/11/19, multiple pneumothorax, O2 @2-4L [place] prn. Adrenal insufficiency Last Myocardial Infarction Date:: 12/30/2019 History of Any Multi-Drug Resistant Organisms: None Reported Year Discovered:: 09/11/24 MDRO Source:: sputum Past Surgical History: Heart Catheterization With Stent, Hernia Repair, Orthope dic Surgery, Prostate Surgery, Tonsillectomy Additional Past Surgical History / Comment(s): Septoplasty/ESSS, EGD, colonoscopy with benign polyp, R inguinal hernia, umbilical hernia, pain clinic procedures, atilio fundloplication. upper bilat lung lobes removed 05/2021, prost ate surgery 3 weeks ago. Prostate biopsy 01/20/24. Prostate laser surgery Past Anesthesia/Blood Transfusion Reactions: No Reported Reaction Additional Past Anesthesia/Blood Transfusion Reaction / Comm: no known family hx Date of Last Stent Placement:: Past Psychological History: No Psychological Hx Reported, PTSD Additional Psychological History / Comment(s): Pt resides with his spouse. He uses no assistive device. He drives. He has a nebulizer and home oxygen as needed. Smoking Status: Former smoker Past Alcohol Use History: None Reported Additional Past Alcohol Use History / Comment(s): Pt started smoking in 1967, 1-1-1/2 packs per day, quit in 1999 Past Drug Use History: None Reported - Past Family History Father History Unknown: Yes Family Medical History: No Reported History, Unable to Obtain Additional Family Medical History / Comment(s): Pt was adopted. Mother History Unknown: Yes Additional Family Medical History / Comment(s): Pt was adopted. Daughter(s) Additional Family Medical History / Comment(s): Children do not have any major medical problems. No history of blood clots. Medications and Allergies Home Medications Medication Instructions Recorded Confirmed Type Gabapentin 1,200 mg PO HS 04/09/16 04/06/25 History Fluticasone/Umeclidin/Vilanter 1 puff INHALATION RT-DAILY 10/25/21 04/06/25 History [Trelegy Ellipta 100-62.5-25] Gabapentin 600 mg PO DAILY 09/17/22 04/06/25 History Pantoprazole Sodium [Protonix] 40 mg PO BID 09/17/22 04/06/25 History Apixaban [Eliquis] 5 mg PO BID 05/17/23 04/06/25 History Clopidogrel Bisulfate [Clopidogrel] 75 mg PO DAILY 05/17/23 04/06/25 History Empagliflozin [Jardiance] 10 mg PO DAILY 05/17/23 04/06/25 History Ezetimibe [Zetia] 10 mg PO DAILY 05/17/23 04/06/25 History metFORMIN HCL 1,000 mg PO BID 05/17/23 04/06/25 History traZODone HCL [Desyrel] 200 mg PO HS 05/17/23 04/06/25 History Albuterol Inhaler [Ventolin Hfa 2 puff INHALATION RT-Q4H PRN 01/23/24 04/06/25 History Inhaler] Famotidine 40 mg PO HS 01/23/24 04/06/25 History HYDROcodone/APAP 7.5-325MG [[place] 1 tab PO TID 01/23/24 04/06/25 History 7.5-325] Isosorbide Mononitrate ER [Imdur] 30 mg PO DAILY 01/23/24 04/06/25 History Hydrocortisone [Cortef] 30 mg PO DAILY 03/17/25 04/06/25 History Lansoprazole 30 mg PO DAILY 03/17/25 04/06/25 History Losartan [Cozaar] 50 mg PO HS 03/17/25 04/06/25 History Metoprolol Tartrate [Lopressor] 12.5 mg PO DAILY 03/17/25 04/06/25 History Rosuvastatin [Crestor] 10 mg PO BENNETT 03/17/25 04/06/25 History SUMAtriptan succinate 100 mg PO DAILY PRN 03/17/25 04/06/25 History Triamcinolone 0.1% Cream [Kenalog 1 applic TOPICAL BID PRN 03/17/25 04/06/25 History 0.1% Cream] Budesonide/Formoterol Fumarate 2 puff INHALATION RT-BID 04/06/25 04/06/25 History [Breyna 160-4.5 Mcg Inhaler] Vonoprazan Fumarate [Voquezna] 10 mg PO HS 04/06/25 04/06/25 History Ipratropium-Albuterol Nebulize 3 ml INHALATION RT-Q4H PRN each 04/08/25 Rx [Duoneb 0.5 mg-3 mg/3 ml Soln] Ipratropium-Albuterol Nebulize 3 ml INHALATION RT-QID #100 each 04/08/25 Rx [Duoneb 0.5 mg-3 mg/3 ml Soln] Levofloxacin [Levaquin] 750 mg PO DAILY 7 Days #7 tab 04/08/25 Rx Tamsulosin [Flomax] 0.4 mg PO PC-BRKFST #30 cap 04/08/25 Rx predniSONE See Taper PO DIRECTED #30 tab 04/08/25 Rx Allergies Allergy/AdvReac Type Severity Reaction Status Date / Time nitrofurantoin Allergy Unknown Verified 04/06/25 07:52 [From Macrobid] Childhood Physical Exam Vitals: Vital Signs Temp Pulse Pulse Pulse Pulse Pulse Resp 04/09/25 06:00 79 10 L 04/09/25 05:30 88 15 04/09/25 05:00 108 H 18 04/09/25 04:30 96 11 L 04/09/25 04:00 97.8 F 105 H 8 L 04/09/25 03:30 75 10 L 04/09/25 03:00 106 H 13 04/09/25 02:30 100 11 L 04/09/25 02:00 12 04/09/25 01:30 104 H 13 04/09/25 01:00 87 13 04/09/25 00:30 81 21 04/09/25 00:23 80 23 04/09/25 00:00 97.8 F 80 15 04/08/25 23:30 80 13 04/08/25 23:00 73 12 04/08/25 22:30 74 12 04/08/25 22:00 95 17 04/08/25 21:30 87 11 L 04/08/25 21:00 87 12 04/08/25 20:30 8 L 04/08/25 20:00 97.9 F 26 H 04/08/25 19:52 84 20 04/08/25 19:46 82 20 04/08/25 19:30 68 11 L 04/08/25 19:00 23 04/08/25 18:30 15 04/08/25 18:00 90 16 04/08/25 17:30 89 14 04/08/25 17:00 85 25 H 04/08/25 16:30 82 13 04/08/25 16:20 76 04/08/25 16:08 73 04/08/25 16:00 88 17 04/08/25 15:30 98 14 04/08/25 15:00 85 21 04/08/25 14:38 97.8 F 87 20 04/08/25 14:37 81 78 88 04/08/25 14:30 93 18 04/08/25 14:20 04/08/25 13:33 97.5 F L 78 16 04/08/25 08:37 78 04/08/25 08:28 84 04/08/25 07:40 97.7 F 76 17 BP BP Pulse Ox Pulse Ox Pulse Ox Pulse Ox 04/09/25 06:00 133/99 92 L 04/09/25 05:30 134/98 92 L 04/09/25 05:00 134/98 04/09/25 04:30 140/90 92 L 04/09/25 04:00 129/75 91 L 04/09/25 03:30 124/88 93 L 04/09/25 03:00 137/99 90 L 04/09/25 02:30 124/78 91 L 04/09/25 02:00 94 L 04/09/25 01:30 125/77 92 L 04/09/25 01:00 113/88 92 L 04/09/25 00:30 91 L 04/09/25 00:23 122/95 91 L 04/09/25 00:00 124/85 92 L 04/08/25 23:30 116/81 93 L 04/08/25 23:00 105/64 90 L 04/08/25 22:30 116/78 89 L 04/08/25 22:00 141/85 87 L 04/08/25 21:30 118/92 90 L 04/08/25 21:00 129/82 90 L 04/08/25 20:30 93 L 04/08/25 20:00 119/79 84 L 04/08/25 19:52 04/08/25 19:46 04/08/25 19:30 130/83 92 L 04/08/25 19:00 136/85 89 L 04/08/25 18:30 126/80 89 L 04/08/25 18:00 148/93 90 L 04/08/25 17:30 135/81 89 L 04/08/25 17:00 131/85 90 L 04/08/25 16:30 153/85 93 L 04/08/25 16:20 04/08/25 16:08 04/08/25 16:00 149/89 93 L 04/08/25 15:30 115/82 93 L 04/08/25 15:00 125/108 92 L 04/08/25 14:38 125/108 90 L 04/08/25 14:37 96 90 L 86 L 04/08/25 14:30 129/91 90 L 04/08/25 14:20 90 L 04/08/25 13:33 114/73 90 L 04/08/25 08:37 04/08/25 08:28 93 L 04/08/25 07:40 112/73 90 L Intake and Output 04/08/25 04/08/25 04/09/25 14:59 22:59 06:59 Intake Total 300 600 Output Total 200 680 Balance 100 -80 Intake: Intake, IV Titration 300 350 Amount Cefepime 2 gm In Sodium 100 Chloride 0.9% 100 ml @ 25 mls/hr IVPB Q8HR [facility] Rx# :[id number] Levofloxacin 750Mg-D5w 300 150 Pmx 750 mg In Dextrose/ Water 1 150ml.bag @ 100 mls/hr IVPB Q24H [facility] Rx#: [id number] Voriconazole 340 mg In 100 Sodium Chloride 0.9% 100 ml @ 50 mls/hr IVPB Q12H [facility] Rx#:[id number] Oral 250 Output: Urine 200 600 Oral Regurgitation 80 Other: Voiding Method Toilet # Voids 1 # Bowel Movements 1 Weight 84.1 kg General appearance: The patient is alert, oriented, appears in no acute distress. HET: Head is normocephalic and atraumatic. Conjunctiva pink. Sclera anicteric. Neck: Supple without lymphadenopathy. Trachea midline. Heart: Regular. Lungs: Equal expansion, normal respiratory effort. Chest: Right upper chest with Thora vent in place. Abdomen: Soft, nontender, nondistended. Skin: No rashes. No jaundice. Extremities: Normal skin color and turgor. No pedal edema. Neurological: No focal deficits. Alert and oriented x3. Results CBC & Chem 7: 04/09/25 06:51 04/09/25 06:51 Labs: Abnormal Lab Results - Last 24 Hours (Table) 04/08/25 04/08/25 04/08/25 Range/Units 02:54 11:55 14:19 WBC (4.50-10.00) 10*3/uL MCHC (32.0-37.0) g/dL MPV (9.5-12.2) fL Immature Gran # (0.00-0.04) 10*3/uL Neutrophils # (1.80-7.70) 10*3/uL Lymphocytes # (0.90-5.00) 10*3/uL Eosinophils # (0.04-0.35) 10*3/uL POC Glucose (mg/dL) 205 H 181 H (70-110) mg/dL Total Protein (PEP) 5.0 L (6.2-8.2) g/dL IgG 615.0 L (700.0-1600.0) mg/dL IgE 134.00 H (0.00-114.00) IU/mL 04/08/25 04/08/25 04/09/25 Range/Units 17:11 19:48 03:13 WBC 19.27 H (4.50-10.00) 10*3/uL MCHC 31.8 L (32.0-37.0) g/dL MPV 9.1 L (9.5-12.2) fL Immature Gran # 0.15 H (0.00-0.04) 10*3/uL Neutrophils # 18.46 H (1.80-7.70) 10*3/uL Lymphocytes # 0.29 L (0.90-5.00) 10*3/uL Eosinophils # 0.00 L (0.04-0.35) 10*3/uL POC Glucose (mg/dL) 171 H 180 H (70-110) mg/dL Total Protein (PEP) (6.2-8.2) g/dL IgG (700.0-1600.0) mg/dL IgE (0.00-114.00) IU/mL 04/09/25 Range/Units 06:34 WBC (4.50-10.00) 10*3/uL MCHC (32.0-37.0) g/dL MPV (9.5-12.2) fL Immature Gran # (0.00-0.04) 10*3/uL Neutrophils # (1.80-7.70) 10*3/uL Lymphocytes # (0.90-5.00) 10*3/uL Eosinophils # (0.04-0.35) 10*3/uL POC Glucose (mg/dL) 194 H (70-110) mg/dL Total Protein (PEP) (6.2-8.2) g/dL IgG (700.0-1600.0) mg/dL IgE (0.00-114.00) IU/mL Microbiology - Last 24 Hours (Table) 04/05/25 20:50 Blood Culture - Preliminary Blood Assessment and Plan (1) Hematemesis Narrative/Plan: 74-year-old with multiple comorbidities who is followed with gastroenterology in the past for GERD recent hospitalization for urinary tract infection and now COPD exacerbation shortness of breath with hemoptysis, pneumothorax status post chest tube placement with reported hematemesis. Patient states he had 2-3 episodes that were dark red. Hemoglobin stable at 14.4 currently on Eliquis. No abdominal pain. Will treat with Protonix 40 mg daily. No plans for upper endoscopy. Patient to follow-up with gastroenterology on discharge. If patient has further hematemesis or hemoptysis need to consider holding anticoagulation. Current Visit: Yes Status: Acute Code(s): K92.0 - HEMATEMESIS SNOMED Code(s): 7200388 (2) Hemoptysis Current Visit: Yes Status: Acute Code(s): R04.2 - HEMOPTYSIS SNOMED Code(s): 21566619 (3) COPD (chronic obstructive pulmonary disease) Current Visit: Yes Status: Acute Code(s): J44.9 - CHRONIC OBSTRUCTIVE PULM ONARY DISEASE, UNSPECIFIED SNOMED Code(s): 85844670 (4) Pneumothorax, right Current Visit: No Status: Acute Code(s): J93.9 - PNEUMOTHORAX, UNSPECIFIED SNOMED Code(s): 634793626 (5) Shortness of breath Current Visit: Yes Status: Acute Code(s): R06.02 - SHORTNESS OF BREATH SNOMED Code(s): 301154128 (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 Continue symptomatic and supportive care 2. Diet as tolerated 3. Protonix 40 mg twice daily 4. Patient currently on anticoagulation, no plans on endoscopic evaluation at this time as this was postprocedure and no further bleeding 5. If patient has further hematemesis or hemoptysis consider holding anticoagulation 6. No further workup from gastroenterology at this time 7. Rest of medical management per primary medical team and pulmonology Thank you for allowing us to participate in the care of the patient, the GI service will sign off, gastroenterology will not be available at the hospital this weekend and through next week. If further evaluation by gastroenterology is required the patient will need transfer as per the primary team's discretion. Dr. Travis Velarde I agree with the dictator's note, documented as a scribe by Perla Fulton.
[2025-04-09 11:11] LABS: Glucose,Whole Blood 204 mg/dL (70-110)
--- NOTE | 2025-04-09 12:58 | P.PN ---
Subjective Progress Note Date: 04/09/25 Principal diagnosis: Acute COPD exacerbation, recurrent pneumonia, and spontaneous right-sided pneumothorax Patient is a 74-year-old male with past medical history significant for severe COPD/emphysema, previous pneumothoraces, bullectomy, PE, hypertension, hyperlipidemia, CAD, CVA/TIA, diabetes mellitus, GERD, hiatal hernia, frequent urinary tract infections with previous TURP, previous [place], PTSD, migraines. Does follow in the pulmonary office with Dr. Rascon. Of note, patient had a recent hospitalization in Feb, 2025 for urinary tract infection, as well as, possible left lower lung pneumonia. Urine positive Serratia marcescens. Ended up being discharged on 03/17/25 with a course of ciprofloxacin. Reportedly, did complete his antibiotics. At the last couple days developed increased cough with small hemoptysis mixed with sputum. Patient does take Eliquis on outpatient basis. Ended up going to his primary care provider, Dr. Gioradno, for evaluation yesterday. She recommended that he come to the emergency department. Workup in the emergency department including chest x-ray showing bilateral lower lobe infiltrates, possible worse from comparison. CBC: WBC count 12.54, hemoglobin 14.8, platelets 224. CMP: Sodium 139, potassium 4.4, chloride 110, serum bicarb 24, BUN 16, creatinine 0.77, glucose 147. Lactic 1.1. LFTs not elevated. Troponin less than 0.012. NT proBNP low. EKG: Sinus rhythm, rate 68 bpm, no acute ischemic changes noted. UA unremarkable for infection. Patient currently being evaluated in the emergency department. Sitting comfortably at the edge of the bed. On room air. No acute respiratory distress. The last several days has developed increased weakness, dizziness, and headaches. Endorsing increased work of breathing with cough that is productive with occasional hemoptysis mixed with black sputum. Also, reporting associated low-grade fevers. Denies recent known sick contacts. Denies localized chest pain, heart palpitations, syncopal events, lower extremity edema, orthopnea. Denies dysuria, hematuria, flank pa in. Afebrile. Current vital stable. The patient is seen today April 07, 2025 in follow-up on the regular medical floor. He is currently sitting up at the bedside. Awake and alert in no acute distress. He is currently maintaining O2 saturations in the 90s on room air oxygen. He is afebrile. Hemodynamically stable. Blood culture revealed no growth. Sputum culture reveals no growth. White count 12.3. Hemoglobin 13.0. Platelets 183. Sodium 144. Potassium 4.4. Bicarb 21. BUN 17. Creatinine 0.7. Glucose 162. He remains on DuoNeb inhalations, Solu-Medrol. He remains on Levaquin. Anticoagulated with Eliquis. The patient is seen today April 08, 2025 in follow-up on the regular medical floor. He is awake and alert in no acute distress. Sitting up in bed. Denies any worsening shortness of breath, cough or congestion. A bit better today compared to yesterday but not back to his baseline. He is maintaining good O2 saturations in the 90s on 2 L/min per nasal cannula. He is afebrile. Hemodynamically stable. Glucose 165. Total protein 5.0. IgG 615. IgE 134. IgM 53.5. IgA 243. HIV screen negative. He remains on DuoNeb inhalations, Solu-Medrol. Continued on Levaquin. Anticoagulated with Eliquis. Patient was seen today on 04/09/2025, patient developed spontaneous right-sided pneumothorax yesterday, moved up to the ICU and a right-sided Thora vent 13 Guinean was placed and complete reexpansion of the right lung was noted. Patient was on wall suction overnight, today the lung remains fully expanded, no pneumothorax, no airleak, hence the patient be placed on waterseal. Patient is relatively asymptomatic except last night he had an episode of vomiting bright red blood had 1 episode after he was having lots of dry heaves. And episodes of nausea. I felt most like the patient had a Mary-Medina tear. GI was consulted, in the meantime his hemoglobin remained the same, patient did not drop much, continues to have episodes of nausea today, but no further episodes of vomiting or coughing up any blood. Chest x-ray is still showing expansion of the right lung, no evidence of acute process. Patient has been on Eliquis for many years for history of DVT and pulmonary embolism Eliquis is presently on hold, however the patient remains on Plavix and is also on Protonix. WBC count is 18.7 hemoglobin 13.9 electrolytes are normal renal profile is normal. Objective - Vital Signs Vital signs: Vital Signs Temp 98.5 F 04/09/25 12:00 Pulse 82 04/09/25 12:19 Resp 14 04/09/25 12:00 BP 121/86 04/09/25 12:00 Pulse Ox 94 L 04/09/25 12:12 FiO2 Intake & Output 04/08/25 04/09/25 04/09/25 18:59 06:59 18:59 Intake Total 300 600 100 Output Total 200 680 0 Balance 100 -80 100 Weight 84.1 kg Intake: Intake, IV Titration 300 350 100 Amount Cefepime 2 gm In Sodium 100 Chloride 0.9% 100 ml @ 25 mls/hr IVPB Q8HR [facility] Rx# :[id number] Levofloxacin 750Mg-D5w 300 150 Pmx 750 mg In Dextrose/ Water 1 150ml.bag @ 100 mls/hr IVPB Q24H NELDA Rx#: [id number] Voriconazole 340 mg In 100 Sodium Chloride 0.9% 100 ml @ 50 mls/hr IVPB Q12H N[facility] Rx#:[id number] Voriconazole 500 mg In 100 Sodium Chloride 0.9% 100 ml @ 50 mls/hr IVPB Q12H N[facility]DA Rx#:[id number] Oral 250 Output: Urine 200 600 0 Oral Regurgitation 80 Other: Voiding Method Toilet # Voids 1 # Bowel Movements 1 - Exam GENERAL EXAM: Alert, pleasant 74-year-old male, on 3 L nasal cannula, not in distress HEAD: Normocephalic. EYES: Normal reaction of pupils, equal size. NOSE: Clear with pink turbinates. THROAT: No erythema or exudates. NECK: No masses, no JVD. CHEST: No chest wall deformity. Right-sided Thora vent is noted, connected to Pleur-evac, off wall suction today. LUNGS: Good breath sound bilaterally no crackles rhonchi or wheezes CVS: S1 and S2 normal with no audible murmur, regular rhythm. ABDOMEN: No hepatosplenomegaly, normal bowel sounds, no guarding or rigidity. SKIN: No rashes CENTRAL NERVOUS SYSTEM: Alert and oriented x 3 no gross focal deficit EXTREMITIES: no clubbing edema or cyanosis. - Labs CBC & Chem 7: 04/09/25 06:51 04/09/25 06:51 Labs: Abnormal Lab Results - Last 24 Hours (Table) 06/10/2104/08/25 04/08/25 Range/Units 14:19 17:11 19:48 WBC (4.50-10.00) 10*3/uL MCHC (32.0-37.0) g/dL MPV (9.5-12.2) fL Immature Gran # (0.00-0.04) 10*3/uL Neutrophils # (1.80-7.70) 10*3/uL Lymphocytes # (0.90-5.00) 10*3/uL Eosinophils # (0.04-0.35) 10*3/uL BUN (9-20) mg/dL Glucose (74-99) mg/dL POC Glucose (mg/dL) 181 H 171 H 180 H (70-110) mg/dL 04/09/25 04/09/25 04/09/25 Range/Units 03:13 06:34 06:51 WBC 19.27 H 18.70 H (4.50-10.00) 10*3/uL MCHC 31.8 L (32.0-37.0) g/dL MPV 9.1 L 8.8 L (9.5-12.2) fL Immature Gran # 0.15 H 0.14 H (0.00-0.04) 10*3/uL Neutrophils # 18.46 H 17.63 H (1.80-7.70) 10*3/uL Lymphocytes # 0.29 L 0.42 L (0.90-5.00) 10*3/uL Eosinophils # 0.00 L 0.00 L (0.04-0.35) 10*3/uL BUN (9-20) mg/dL Glucose (74-99) mg/dL POC Glucose (mg/dL) 194 H (70-110) mg/dL 04/09/25 04/09/25 Range/Units 06:51 11:09 WBC (4.50-10.00) 10*3/uL MCHC (32.0-37.0) g/dL MPV (9.5-12.2) fL Immature Gran # (0.00-0.04) 10*3/uL Neutrophils # (1.80-7.70) 10*3/uL Lymphocytes # (0.90-5.00) 10*3/uL Eosinophils # (0.04-0.35) 10*3/uL BUN 45 H (9-20) mg/dL Glucose 190 H (74-99) mg/dL POC Glucose (mg/dL) 204 H (70-110) mg/dL Microbiology - Last 24 Hours (Table) 04/05/25 23:28 Gram Stain - Final Sputum Sputum Culture - Final Rhizomucor species 04/05/25 20:50 Blood Culture - Preliminary Blood Assessment and Plan Assessment: Impression: Acute spontaneous right-sided pneumothorax, developed while the patient was inpatient requiring Thora vent placement 13 [place], presently off wall suction and on waterseal. Acute COPD exacerbation, improved Acute dyspnea, secondary to above, chest x-ray showing bibasilar infiltrates, possibly slightly worse from comparison, consideration for bibasilar pneumonia or atelectasis Upper GI bleeding 1 episode, suspect Mary-Medina tear, seen by GI, no specific recommendation was made. Recent urinary tract infection, urine positive for Serratia marcescens 03/17/2025, treated with course of ciprofloxacin History of bullous emphysema and previous bullectomy History of pneumothoraces History of previous TURP and frequent urinary tract infections History of E. coli sputum positive in August 2024 Remote history of pulmonary embolism, chronically anticoagulated on Eliquis Hypertension History of hyperlipidemia History of coronary disease with previous PCI/stents History of CVA/TIA Type 2 diabetes mellitus GERD History of hiatal hernia Chronic back pain Anxiety/PTSD History of migraines Recommendation: Continue oxygen and titrate accordingly Continue thoravent in place, placed on waterseal Continue bronchodilators Continue antibiotics/Levaquin Continue Plavix but hold Eliquis for now, Increase Protonix to 40 mg twice daily Transfer patient to cardiac floor out of the ICU, and will continue to follow Continue to monitor daily x-rays of the chest and daily labs. Continue Zofran for nausea and vomiting Not ready for any discharge planning at this point. Time with Patient: Less than 30
[2025-04-09] MEDS ORDERED: RX INFO: IV CONTRAST WAS GIVEN 1 EACH MISC MISCELLANE PRN (14:51)
[2025-04-09] MEDS ORDERED: VORICONAZOLE IVPB SCH (16:00)
[2025-04-09] MEDS ORDERED: SODIUM CHLORIDE 0.9% IVPB SCH (16:00)
[2025-04-09 16:25] LABS: Glucose,Whole Blood 180 mg/dL (70-110)
--- NOTE | 2025-04-09 17:05 | CT ---
EXAMINATION TYPE: CT chest w con DATE OF EXAM: 04/09/2025 4:50 PM COMPARISON: 02/17/2025 CLINICAL INDICATION: Male, 74 years old with history of sputum rhizomucor ?fungal pneumonia; PHH, ptx /pneumonia TECHNIQUE: Multiple axial images were obtained through the chest. Sagittal and coronal reformats were created for review. MIP was performed on a separate workstation. Contrast used:100 mL of Isovue 300 with IV Contrast (None if empty) Oral contrast used: (None if empty) CT DLP: 535.1 mGycm, Automated exposure control for dose reduction was used. FINDINGS: LUNGS/ PLEURA: Right thoracotomy tube in place there is trace right pneumothorax. No airspace consoli dation. Severe centrilobular bullous emphysema changes. Atelectasis changes along the right diaphragm with bronchovascular crowding. AIRWAY: Opacified right lower lobe airways extension area of atelectasis within the anterior and post erior right lung base. HEART: Size within normal limits. Coronary artery atherosclerotic changes and stents present. MEDIASTINUM: No gross evidence of adenopathy. Moderate hiatal hernia with debris layering in the dist al esophagus. VASCULATURE: No aortic aneurysm. MUSCULOSKELETAL: No acute osseous abnormalities SOFT TISSUES/LYMPH NODES: Subcutaneous emphysema is seen along the anterior and lateral chest wall. LOWER NECK: No significant findings. UPPER ABDOMEN: Areas of cortical thinning of the left renal cortex suggestive of prior injuries. IMPRESSION: 1. No focal consolidation to suggest an infectious process. There is retained secretions in the righ t lower lung anterior and posterior bronchi suggestive of retained secretions versus aspiration. Ther e is postobstructive atelectasis within these regions. 2. Right there are thoracotomy tube with trace right pneumothorax. 3. Right chest wall subcutaneous emphysema likely secondary to chest tube insertion. 4. Severe bullous emphysema changes of the lungs predominantly in lung apices. 5. Moderate hiatal hernia debris in the distal esophagus correlate for esophageal dysmotility/reflux . 6. Moderate severe at this course of the arterial vasculature. [facility], , 04/09/2025 5:03 PM
[2025-04-09] MEDS: LACTOBACILLUS ACIDOPHILUS/PECT 1 EACH CAPSULE PO SCH (17:29)
[2025-04-09] MEDS: ACETAMINOPHEN TAB 325 MG TAB PO SCH (18:36)
[2025-04-09] MEDS: diphenhydrAMINE 25 MG CAP PO SCH (18:36)
[2025-04-09] MEDS: SODIUM CHLORIDE 0.9% 500 ML IV SCH ×2 (18:40→23:15)
[2025-04-09] MEDS: WATER IV SCH ×2 (19:20→19:26)
[2025-04-09] MEDS: DEXTROSE 5% IV SCH ×2 (19:20→19:26)
[2025-04-09] MEDS: AMPHOTERICIN B LIPOSOME IV SCH (19:26)
[2025-04-09 20:23] LABS: Glucose,Whole Blood 192 mg/dL (70-110)
--- NOTE | 2025-04-09 22:22 | P.PN ---
Subjective Progress Note Date: 04/09/25 Principal diagnosis: Reason for follow-up is pneumonia Patient is a 74-year-old male with a past medical history significant for COPD CVA TIA diabetes mellitus reflux NE prostate disorder presents to the hospital with shortness of breath cough has been diagnosed with pneumonia prompted this consultation. On today's evaluation that is 04/09/2025, the patient continues to be afebrile, the patient is on 3 L nasal oxygen and breathing slightly comfortably still complaining of pain to the right side of the chest moderate intensity denies any nausea vomiting no abdominal pain vomiting, did have some diarrhea Patient did have white count of 18.70, creatinine 0.68, stool for C. difficile is negative sputum is growing Rhizomucor species Objective - Vital Signs Vital signs: Vital Signs Temp 98.5 F 04/09/25 12:00 Pulse 82 04/09/25 12:19 Resp 14 04/09/25 12:00 BP 121/86 04/09/25 12:00 Pulse Ox 94 L 04/09/25 12:12 FiO2 Intake & Output 04/08/25 04/09/25 04/09/25 18:59 06:59 18:59 Intake Total 300 600 100 Output Total 200 680 0 Balance 100 -80 100 Weight 84.1 kg Intake: Intake, IV Titration 300 350 100 Amount Cefepime 2 gm In Sodium 100 Chloride 0.9% 100 ml @ 25 mls/hr IVPB Q8HR [facility] Rx# :[id number] Levofloxacin 750Mg-D5w 300 150 Pmx 750 mg In Dextrose/ Water 1 150ml.bag @ 100 mls/hr IVPB Q24H NELDA Rx#: [id number] Voriconazole 340 mg In 100 Sodium Chloride 0.9% 100 ml @ 50 mls/hr IVPB Q12H N[facility] Rx#:[id number] Voriconazole 500 mg In 100 Sodium Chloride 0.9% 100 ml @ 50 mls/hr IVPB Q12H NELDA Rx#:[id number] Oral 250 Output: Urine 200 600 0 Oral Regurgitation 80 Other: Voiding Method Toilet # Voids 1 # Bowel Movements 1 - Exam GENERAL DESCRIPTION: An elderly male lying in bed in mild distress RESPIRATORY SYSTEM: Unlabored breathing , coarse breath sounds bilaterally HEART: S1 S2 regular rate and rhythm , ABDOMEN: Soft , no tenderness EXTREMITIES: No edema feet - Labs CBC & Chem 7: 04/09/25 06:51 04/09/25 06:51 Labs: Abnormal Lab Results - Last 24 Hours (Table) 04/08/25 04/08/25 04/09/25 Range/Units 17:11 19:48 03:13 WBC 19.27 H (4.50-10.00) 10*3/uL MCHC 31.8 L (32.0-37.0) g/dL MPV 9.1 L (9.5-12.2) fL Immature Gran # 0.15 H (0.00-0.04) 10*3/uL Neutrophils # 18.46 H (1.80-7.70) 10*3/uL Lymphocytes # 0.29 L (0.90-5.00) 10*3/uL Eosinophils # 0.00 L (0.04-0.35) 10*3/uL BUN (9-20) mg/dL Glucose (74-99) mg/dL POC Glucose (mg/dL) 171 H 180 H (70-110) mg/dL 04/09/25 04/09/25 04/09/25 Range/Units 06:34 06:51 06:51 WBC 18.70 H (4.50-10.00) 10*3/uL MCHC (32.0-37.0) g/dL MPV 8.8 L (9.5-12.2) fL Immature Gran # 0.14 H (0.00-0.04) 10*3/uL Neutrophils # 17.63 H (1.80-7.70) 10*3/uL Lymphocytes # 0.42 L (0.90-5.00) 10*3/uL Eosinophils # 0.00 L (0.04-0.35) 10*3/uL BUN 45 H (9-20) mg/dL Glucose 190 H (74-99) mg/dL POC Glucose (mg/dL) 194 H (70-110) mg/dL 04/09/25 Range/Units 11:09 WBC (4.50-10.00) 10*3/uL MCHC (32.0-37.0) g/dL MPV (9.5-12.2) fL Immature Gran # (0.00-0.04) 10*3/uL Neutrophils # (1.80-7.70) 10*3/uL Lymphocytes # (0.90-5.00) 10*3/uL Eosinophils # (0.04-0.35) 10*3/uL BUN (9-20) mg/dL Glucose (74-99) mg/dL POC Glucose (mg/dL) 204 H (70-110) mg/dL Microbiology - Last 24 Hours (Table) 04/05/25 23:28 Gram Stain - Final Sputum Sputum Culture - Final Rhizomucor species 04/05/25 20:50 Blood Culture - Preliminary Blood Assessment and Plan (1) Pneumonia Current Visit: Yes Status: Acute Code(s): J18.9 - PNEUMONIA, UNSPECIFIED ORGANISM SNOMED Code(s): 842762345 (2) Mucormycosis Current Visit: Yes Status: Acute Code(s): B46.5 - MUCORMYCOSIS, UNSPECIFIED SNOMED Code(s): 97021961 Plan: 1patient presented to hospital with weakness wobbly gait did have a cough bringing up purulent sputum with some blood mixed did have elevated white count with bibasilar infiltrate on the chest x-ray highly suspicious for pneumonia in this patient did have underlying history of COPD. 2blood cultures are pending and sputum culture currently growing fungus which has been defined as Rhizomucar species 3with the growth of Rhizomucar species in the sputum which is the cause of severe fungal pneumonia I will go ahead and check a CT of the chest with contrast to see the extent of pneumonia we will discontinue voriconazole to which Mucor is resistant and will start the patient on liposomal amphotericin B this has been discussed in detail with the pharmacy to arrange for the liposomal amphotericin B while waiting for the workup to be completed. This has been discussed obtained with the patient as well as with the Dictation was produced using [employer] dictation software. please excuse any grammatical, word or spelling errors. Time with Patient: Greater than 30
[2025-04-10] MEDS: ALPRAZolam 1 MG TAB PO STA (00:42)
[2025-04-10 05:39] LABS: Glucose,Whole Blood 201 mg/dL (70-110)
[2025-04-10] MEDS: WATER IV SCH (07:04)
[2025-04-10] MEDS: DEXTROSE 5% IV SCH (07:04)
--- NOTE | 2025-04-10 07:22 | P.PN ---
Subjective Progress Note Date: 04/09/25 This is a pleasant 74-year-old male who was recently admitted with COPD exacerbation as well as bilateral pneumonia being closely monitored with infectious disease and pulmonary following. Preliminary sputum culture showing fungal isolation and will await finalized cultures. Discussed with micro lab ab out running sensitivities to ensure appropriate antibiotics. Patient reported to feeling much better and would like to go home and had been cleared by pulmonary and undergoing home oxygen testing with walking and started feeling short of breath like he had felt when he had a previous collapsed lung. Per nursing staff a team was called as they were absent lung sounds on the right with concerns of respiratory distress. Stat chest x-ray was performed revealing a right pneumothorax and patient was brought to the ICU per pulmonary for chest tube insertion and closer monitoring. Will follow-up with repeat chest x-ray in a.m. 04/09/2025 Patient is seen in follow-up status post right pneumothorax with Thora vent placement by pulmonary and remains in the ICU although is a downgrade to 3 S. once a bed becomes available. Patient reported per pulmonary will continue with for event for another 24 to 48 hours with serial x-rays. This morning's chest x-ray reveals right thoracotomy tube present without pneumothorax visualized. Infectious disease also following and patient is maintained on antibiotics in the form of cefepime and was maintained on Levaquin. Preliminary sputum culture showing a fungal isolate and discussed with micro lab regarding running this sensitivity which remains pending at this time. Patient continues on 3 L via nasal cannula and encouraged incentive spirometer use and is maintained on continued breathing treatments. Encouraged increased activity as tolerated. Patient will continue on IV steroids and [id number] DuoNeb treatments. Review of systems: Constitutional: No reports of fatigue, fever, or chills Cardiovascular: No reports of chest pain or palpitations Respiratory: reports of shortness of breath although improved status post thoracotomy, occasional cough GI: No reports of nausea, no reports of vomiting, occasional loose stools : No reports of dysuria or retention Neurovascular: No reports of generalized weakness All medications have been reviewed PHYSICAL EXAMINATION: GENERAL: The patient is alert and oriented x4, Well developed, thin built, elderly appearing HEENT: Pupils are round and equally reacting to light. EOMI. no scleral icterus. No conjunctival pallor. Normocephalic, atraumatic. No pharyngeal erythema. No thyromegaly. CARDIOVASCULAR: S1 and S2 muffled PULMONARY: diminished breath sounds bilaterally with faint expiratory wheezing with scattered rhonchi noted. Improved aeration on the right ABDOMEN: soft. Nontender on exam. Thin. Non-distended, normoactive bowel sounds. No palpable organomegaly. MUSCULOSKELETAL: No joint swelling or deformity. EXTREMITIES: No cyanosis, clubbing, or pedal edema. NEUROLOGICAL: Gross neurological examination did not reveal any focal deficits. SKIN: No rashes. Assessment: Chronic obstructive pulmonary disease, acute exacerbation with acute bilateral pneumonia with possibly gram-negative, sputum cultures pending, fungal isolate noted on sputum culture and pending for sensitivities per micro lab Spontaneous right pneumothorax, 04/08/2025 status post Thora vent placement Acute hypoxic respiratory failure secondary to above Leukocytosis, multifactorial, likely secondary to acute bilateral pneumonia with a component of steroid effect Diabetes mellitus, type II, uncontrolled with hyperglycemia, likely steroid effect as well History of pulmonary embolism history of coronary artery disease with previous stenting History of recent urinary tract infection with Serratia in February 2025, had completed Cipro on discharge History of bullous emphysema and previous bullectomy History of CVA/TIA History of anxiety with PTSD History of chronic back pain GI prophylaxis DVT prophylaxis Full code Plan: Recommend to continue with current medications and management with pulmonary and infectious disease following. Patient was initially wanting to go home had been cleared by pulmonary once cleared by other consultations and was being tested for home oxygen per nursing staff and started developing shortness of breath and reported to staff that he felt how he previously felt when he had a collapsed lung. Nursing assessment revealed absent lung sounds on the right and in a team was called. Stat chest x-ray revealed a right pneumothorax, spontaneous and p atient was brought to the ICU status post Thora vent placement and closer monitoring. Patient doing well at the [facility] and is a transfer out of the ICU once a bed on stepdown becomes available. Per patient pulmonary reports at least 1-2 more days removing and recommend serial x-rays Recommend incentive spirometer use/flutter device with respiratory following and will continue on breathing treatments Infectious disease following as well and sputum cultures are preliminary showing a fungal isolation and medications being adjusted. Patient is continued on cefepime although was receiving Levaquin. Micro lab contacted and running sensitivities on this fungal isolate which is pending at this time Will follow-up on repeat labs and monitor electrolytes closely. Replace electrolytes per protocol Continue monitoring Accu-Cheks AC and at bedtime and will adjust insulins accordingly Repeat chest x-ray ordered for a.m. Encouraged increase activity as tolerated with frequent walking The impression and plan of care has been dictated by Ying Purdy, Nurse Practitioner as directed. Dr. Mark MD I have performed a history and examination and MDM of this patient, discussed the same with the dictator, and agree with the dictator's assessment and plan as written ,documented as a scribe. Based on total visit time, I have performed more than 50% of the visit. Objective - Vital Signs Vital signs: Vital Signs Temp 97.8 F 04/09/25 04:00 Pulse 79 04/09/25 07:00 Resp 8 L 04/09/25 07:00 BP 126/84 04/09/25 07:00 Pulse Ox 93 L 04/09/25 07:00 FiO2 Intake & Output 04/08/25 04/09/25 04/09/25 18:59 06:59 18:59 Intake Total 300 600 100 Output Total 200 680 0 Balance 100 -80 100 Weight 84.1 kg Intake: Intake, IV Titration 300 350 100 Amount Cefepime 2 gm In Sodium 100 Chloride 0.9% 100 ml @ 25 mls/hr IVPB Q8HR [facility] Rx# :[id number] Levofloxacin 750Mg-D5w 300 150 Pmx 750 mg In Dextrose/ Water 1 150ml.bag @ 100 mls/hr IVPB Q24H [facility] Rx#: [id number] Voriconazole 340 mg In 100 Sodium Chloride 0.9% 100 ml @ 50 mls/hr IVPB Q12H [facility] Rx#:[id number] Voriconazole 500 mg In 100 Sodium Chloride 0.9% 100 ml @ 50 mls/hr IVPB Q12H [facility] Rx#:[id number] Oral 250 Output: Urine 200 600 0 Oral Regurgitation 80 Other: Voiding Method Toilet # Voids 1 # Bowel Movements 1 - Labs CBC & Chem 7: 04/09/25 06:51 04/09/25 06:51 Labs: Abnormal Lab Results - Last 24 Hours (Table) 04/08/25 04/08/25 04/08/25 Range/Units 11:55 14:19 17:11 WBC (4.50-10.00) 10*3/uL MCHC (32.0-37.0) g/dL MPV (9.5-12.2) fL Immature Gran # (0.00-0.04) 10*3/uL Neutrophils # (1.80-7.70) 10*3/uL Lymphocytes # (0.90-5.00) 10*3/uL Eosinophils # (0.04-0.35) 10*3/uL BUN (9-20) mg/dL Glucose (74-99) mg/dL POC Glucose (mg/dL) 205 H 181 H 171 H (70-110) mg/dL 04/08/25 04/09/25 04/09/25 Range/Units 19:48 03:13 06:34 WBC 19.27 H (4.50-10.00) 10*3/uL MCHC 31.8 L (32.0-37.0) g/dL MPV 9.1 L (9.5-12.2) fL Immature Gran # 0.15 H (0.00-0.04) 10*3/uL Neutrophils # 18.46 H (1.80-7.70) 10*3/uL Lymphocytes # 0.29 L (0.90-5.00) 10*3/uL Eosinophils # 0.00 L (0.04-0.35) 10*3/uL BUN (9-20) mg/dL Glucose (74-99) mg/dL POC Glucose (mg/dL) 180 H 194 H (70-110) mg/dL 04/09/25 04/09/25 Range/Units 06:51 06:51 WBC 18.70 H (4.50-10.00) 10*3/uL MCHC (32.0-37.0) g/dL MPV 8.8 L (9.5-12.2) fL Immature Gran # 0.14 H (0.00-0.04) 10*3/uL Neutrophils # 17.63 H (1.80-7.70) 10*3/uL Lymphocytes # 0.42 L (0.90-5.00) 10*3/uL Eosinophils # 0.00 L (0.04-0.35) 10*3/uL BUN 45 H (9-20) mg/dL Glucose 190 H (74-99) mg/dL POC Glucose (mg/dL) (70-110) mg/dL Microbiology - Last 24 Hours (Table) 04/05/25 20:50 Blood Culture - Preliminary Blood
--- NOTE | 2025-04-10 07:28 | XR ---
EXAMINATION TYPE: XR chest 1V DATE OF EXAM: 04/10/2025 5:52 AM COMPARISON: Chest radiographs from 04/09/2025. CLINICAL INDICATION: Male, 74 years old with history of thoravent right chest; [facility] TECHNIQUE: XR chest 1V Frontal view of the chest. FINDINGS: Lungs/Pleura: Right thoracotomy device is present. There is flattening of the diaphragm with increase d lucency of the lungs. No evidence of pneumothorax, pleural effusion or focal consolidation. Pulmonary vascularity: Unremarkable. Heart/mediastinum: Cardiomediastinal silhouette is unremarkable. Musculoskeletal: No acute osseous pathology. Other findings: None IMPRESSION: 1. Right thoracotomy device without appreciable pneumothorax. 2. COPD. [facility], , 04/10/2025 7:26 AM
[2025-04-10 10:34] LABS: Basophils # (A) 0.02 10*3/uL (0.00-0.10); Basophils % (A) 0.1 %; HCT 38.4 % (39.6-50.0); HGB 12.3 g/dL (13.0-17.0); Lymphocytes # (A) 0.42 10*3/uL (0.90-5.00); Lymphocytes % (A) 2.6 %; MCH 29.1 pg (27.0-32.0); MCV 90.8 fL (80.0-97.0); Mean Platelet Volume 9.3 fL (9.5-12.2); Monocytes # (A) 0.43 10*3/uL (0.20-1.00); Monocytes % (A) 2.6 %; Neutrophils # (A) 15.45 10*3/uL (1.80-7.70); Platelet Count 211 10*3/uL (140-440); RBC 4.23 10*6/uL (4.40-5.60); RDW 15.7 % (11.5-14.5); WBC 16.44 10*3/uL (4.50-10.00)
[2025-04-10 10:51] LABS: African American GFR (CKD) >90 (>60 ml/min/1.73 sqM); Anion Gap 8 mmol/L; Blood Urea Nitrogen 44 mg/dL (9-20); Calcium 9.3 mg/dL (8.4-10.2); Carbon Dioxide 24 mmol/L (22-30); Chloride 108 mmol/L (98-107); Glucose 177 mg/dL (74-99); Non-African American GFR(CKD) 85 (>60 ml/min/1.73 sqM); Potassium 3.9 mmol/L (3.5-5.1); Sodium 140 mmol/L (137-145)
[2025-04-10 11:33] LABS: Glucose,Whole Blood 174 mg/dL (70-110)
--- NOTE | 2025-04-10 14:34 | P.PN ---
Subjective Progress Note Date: 04/10/25 Principal diagnosis: Acute COPD exacerbation, recurrent pneumonia, and spontaneous right-sided pneumothorax Patient is a 74-year-old male with past medical history significant for severe COPD/emphysema, previous pneumothoraces, bullectomy, PE, hypertension, hyperlipidemia, CAD, CVA/TIA, diabetes mellitus, GERD, hiatal hernia, frequent urinary tract infections with previous TURP, previous MS, PTSD, migraines. Does follow in the pulmonary office with Dr. Rascon. Of note, patient had a recent hospitalization in Feb, 2025 for urinary tract infection, as well as, possible left lower lung pneumonia. Urine positive Serratia marcescens. Ended up being discharged on 03/17/25 with a course of ciprofloxacin. Reportedly, did complete his antibiotics. At the last couple days developed increased cough with small hemoptysis mixed with sputum. Patient does take Eliquis on outpatient basis. Ended up going to his primary care provider, Dr. Giordano, for evaluation yesterday. She recommended that he come to the emergency department. Workup in the emergency department including chest x-ray showing bilateral lower lobe infiltrates, possible worse from comparison. CBC: WBC count 12.54, hemoglobin 14.8, platelets 224. CMP: Sodium 139, potassium 4.4, chloride 110, serum bicarb 24, BUN 16, creatinine 0.77, glucose 147. Lactic 1.1. LFTs not elevated. Troponin less than 0.012. NT proBNP low. EKG: Sinus rhythm, rate 68 bpm, no acute ischemic changes noted. UA unremarkable for infection. Patient currently being evaluated in the emergency department. Sitting comfortably at the edge of the bed. On room air. No acute respiratory distress. The last several days has developed increased weakness, dizziness, and headaches. Endorsing increased work of breathing with cough that is productive with occasional hemoptysis mixed with black sputum. Also, reporting associated low-grade fevers. Denies recent known sick contacts. Denies localized chest pain, heart palpitations, syncopal events, lower extremity edema, orthopnea. Denies dysuria, hematuria, flank pa in. Afebrile. Current vital stable. The patient is seen today April 07, 2025 in follow-up on the regular medical floor. He is currently sitting up at the bedside. Awake and alert in no acute distress. He is currently maintaining O2 saturations in the 90s on room air oxygen. He is afebrile. Hemodynamically stable. Blood culture revealed no growth. Sputum culture reveals no growth. White count 12.3. Hemoglobin 13.0. Platelets 183. Sodium 144. Potassium 4.4. Bicarb 21. BUN 17. Creatinine 0.7. Glucose 162. He remains on DuoNeb inhalations, Solu-Medrol. He remains on Levaquin. Anticoagulated with Eliquis. The patient is seen today April 08, 2025 in follow-up on the regular medical floor. He is awake and alert in no acute distress. Sitting up in bed. Denies any worsening shortness of breath, cough or congestion. A bit better today compared to yesterday but not back to his baseline. He is maintaining good O2 saturations in the 90s on 2 L/min per nasal cannula. He is afebrile. Hemodynamically stable. Glucose 165. Total protein 5.0. IgG 615. IgE 134. IgM 53.5. IgA 243. HIV screen negative. He remains on DuoNeb inhalations, Solu-Medrol. Continued on Levaquin. Anticoagulated with Eliquis. Patient was seen today on 04/09/2025, patient developed spontaneous right-sided pneumothorax yesterday, moved up to the ICU and a right-sided Thora vent 13 [place] was placed and complete reexpansion of the right lung was noted. Patient was on wall suction overnight, today the lung remains fully expanded, no pneumothorax, no airleak, hence the patient be placed on waterseal. Patient is relatively asymptomatic except last night he had an episode of vomiting bright red blood had 1 episode after he was having lots of dry heaves. And episodes of nausea. I felt most like the patient had a Mary-Medina tear. GI was consulted, in the meantime his hemoglobin remained the same, patient did not drop much, continues to have episodes of nausea today, but no further episodes of vomiting or coughing up any blood. Chest x-ray is still showing expansion of the right lung, no evidence of acute process. Patient has been on Eliquis for many years for history of DVT and pulmonary embolism Eliquis is presently on hold, however the patient remains on Plavix and is also on Protonix. WBC count is 18.7 hemoglobin 13.9 electrolytes are normal renal profile is normal. Seen today on 04/10/2025, patient continues to do fairly well, he has no air leak, chest x-ray showed hardly any pneumothorax, patient did have a CT of the chest because of sputum cultures showing Rhizo Mucor species in the sputum, infectious disease was concerned about possible infected cavities in the lungs which was not seen on the CT of the chest. Patient did receive Amphotericin yesterday, however since the CT of the chest is not showing any cavitary lesions, the Amphotericin will be discontinued as per infectious disease. Clinically the patient is feeling better breathing easier. He continues to havethoravent in place. WBC 16.4 hemoglobin 12.3 electrolytes are normal renal profile is normal Objective - Vital Signs Vital signs: Vital Signs Temp 97.9 F 04/10/25 12:33 Pulse 83 04/10/25 12:33 Resp 18 04/10/25 12:33 BP 115/74 04/10/25 12:33 Pulse Ox 90 L 04/10/25 12:33 FiO2 Intake & Output 04/09/25 04/10/25 04/10/25 18:59 06:59 18:59 Intake Total 355 30 15 Output Total 0 Balance 355 30 15 Weight 84.2 kg Intake: IV 15 30 15 Invasive Line 1 10 20 10 Invasive Line 3 5 10 5 Intake, IV Titration 100 Amount Voriconazole 500 mg In 100 Sodium Chloride 0.9% 100 ml @ 50 mls/hr IVPB Q12H [facility] Rx#:[id number] Oral 240 Output: Urine 0 Other: Voiding Method Toilet Toilet Toilet # Voids 1 # Bowel Movements 1 - Exam GENERAL EXAM: Alert, pleasant 74-year-old male, on 3 L nasal cannula, not in distress HEAD: Normocephalic. EYES: Normal reaction of pupils, equal size. NOSE: Clear with pink turbinates. THROAT: No erythema or exudates. NECK: No masses, no JVD. CHEST: No chest wall deformity. Right-sided Thora vent is noted, connected to Pleur-evac, off wall suction today. LUNGS: Good breath sound bilaterally no crackles rhonchi or wheezes CVS: S1 and S2 normal with no audible murmur, regular rhythm. ABDOMEN: No hepatosplenomegaly, normal bowel sounds, no guarding or rigidity. SKIN: No rashes CENTRAL NERVOUS SYSTEM: Alert and oriented x 3 no gross focal deficit EXTREMITIES: no clubbing edema or cyanosis. - Labs CBC & Chem 7: 04/10/25 08:27 04/10/25 08:27 Labs: Abnormal Lab Results - Last 24 Hours (Table) 04/09/25 04/09/25 04/10/25 Range/Units 16:23 20:21 05:37 WBC (4.50-10.00) 10*3/uL RBC (4.40-5.60) 10*6/uL Hgb (13.0-17.0) g/dL Hct (39.6-50.0) % MPV (9.5-12.2) fL Immature Gran # (0.00-0.04) 10*3/uL Neutrophils # (1.80-7.70) 10*3/uL Lymphocytes # (0.90-5.00) 10*3/uL Eosinophils # (0.04-0.35) 10*3/uL Chloride (98-107) mmol/L BUN (9-20) mg/dL Glucose (74-99) mg/dL POC Glucose (mg/dL) 180 H 192 H 201 H (70-110) mg/dL 04/10/25 04/10/25 04/10/25 Range/Units 08:27 08:27 11:31 WBC 16.44 H (4.50-10.00) 10*3/uL RBC 4.23 L (4.40-5.60) 10*6/uL Hgb 12.3 L (13.0-17.0) g/dL Hct 38.4 L (39.6-50.0) % MPV 9.3 L (9.5-12.2) fL Immature Gran # 0.12 H (0.00-0.04) 10*3/uL Neutrophils # 15.45 H (1.80-7.70) 10*3/uL Lymphocytes # 0.42 L (0.90-5.00) 10*3/uL Eosinophils # 0.00 L (0.04-0.35) 10*3/uL Chloride 108 H (98-107) mmol/L BUN 44 H (9-20) mg/dL Glucose 177 H (74-99) mg/dL POC Glucose (mg/dL) 174 H (70-110) mg/dL Microbiology - Last 24 Hours (Table) 06/09/25 23:28 Gram Stain - Final Sputum Sputum Culture - Final Rhizomucor species Assessment and Plan Assessment: Impression: Acute spontaneous right-sided pneumothorax, developed while the patient was inpatient requiring Thora vent placement 13 [place], presently off wall suction and on waterseal. Acute COPD exacerbation, improved Acute dyspnea, secondary to above, chest x-ray showing bibasilar infiltrates, possibly slightly worse from comparison, consideration for bibasilar pneumonia or atelectasis Upper GI bleeding 1 episode, suspect Mary-Medina tear, seen by GI, no specific recommendation was made. Recent urinary tract infection, urine positive for Serratia marcescens 03/17/2025, treated with course of ciprofloxacin History of bullous emphysema and previous bullectomy History of pneumothoraces History of previous TURP and frequent urinary tract infections History of E. coli sputum positive in August 2024 Remote history of pulmonary embolism, chronically anticoagulated on Eliquis Hypertension History of hyperlipidemia History of coronary disease with previous PCI/stents History of CVA/TIA Type 2 diabetes mellitus GERD History of hiatal hernia Chronic back pain Anxiety/PTSD History of migraines Recommendation: Continue oxygen and titrate accordingly Continue thoravent likely remove Pleur-evac tomorrow and place a one-way valve in the Thora vent Continue bronchodilators Continue antibiotics/ceftriaxone, discontinue Amphotericin Continue Plavix but hold Eliquis for now, may restart Eliquis tomorrow if patient continues to have no episodes of GI bleeding Increase Protonix to 40 mg twice daily Continue to monitor daily x-rays of the chest and daily labs. His nausea and vomiting and hematemesis has resolved We will continue to follow Not ready for any discharge planning at this point. Time with Patient: Less than 30
--- NOTE | 2025-04-10 14:47 | P.PN ---
Subjective Progress Note Date: 04/10/25 Principal diagnosis: Reason for follow-up is pneumonia Patient is a 74-year-old male with a past medical history significant for COPD CVA TIA diabetes mellitus reflux OK prostate disorder presents to the hospital with shortness of breath cough has been diagnosed with pneumonia prompted this consultation. On today's evaluation that is 04/10/2024, patient did have a temperature of 98.1 F this morning patient seem to be more sleepy today as reported by the daughter at the bedside he is currently on 3 L nasal cannula oxygen no worsening cough vomiting or diarrhea has been reported. Patient white count 16.44, creatinine 0.[address] a [address] of the chest completed yesterday and did not mention any consolidation/infection Objective - Vital Signs Vital signs: Vital Signs Temp 97.9 F 04/10/25 12:33 Pulse 83 04/10/25 12:33 Resp 18 04/10/25 12:33 BP 115/74 04/10/25 12:33 Pulse Ox 90 L 04/10/25 12:33 FiO2 Intake & Output 04/09/25 04/10/25 04/10/25 18:59 06:59 18:59 Intake Total 355 30 15 Output Total 0 Balance 355 30 15 Weight 84.2 kg Intake: IV 15 30 15 Invasive Line 1 10 20 10 Invasive Line 3 5 10 5 Intake, IV Titration 100 Amount Voriconazole 500 mg In 100 Sodium Chloride 0.9% 100 ml @ 50 mls/hr IVPB Q12H [facility] Rx#:[id number] Oral 240 Output: Urine 0 Other: Voiding Method Toilet Toilet Toilet # Voids 1 # Bowel Movements 1 - Exam GENERAL DESCRIPTION: An elderly male lying in bed in mild distress RESPIRATORY SYSTEM: Unlabored breathing , coarse breath sounds bilaterally HEART: S1 S2 regular rate and rhythm , ABDOMEN: Soft , no tenderness EXTREMITIES: No edema feet - Labs CBC & Chem 7: 04/10/25 08:27 04/10/25 08:27 Labs: Abnormal Lab Results - Last 24 Hours (Table) 04/09/25 04/09/25 04/10/25 Range/Units 16:23 20:21 05:37 WBC (4.50-10.00) 10*3/uL RBC (4.40-5.60) 10*6/uL Hgb (13.0-17.0) g/dL Hct (39.6-50.0) % MPV (9.5-12.2) fL Immature Gran # (0.00-0.04) 10*3/uL Neutrophils # (1.80-7.70) 10*3/uL Lymphocytes # (0.90-5.00) 10*3/uL Eosinophils # (0.04-0.35) 10*3/uL Chloride (98-107) mmol/L BUN (9-20) mg/dL Glucose (74-99) mg/dL POC Glucose (mg/dL) 180 H 192 H 201 H (70-110) mg/dL 04/10/25 04/10/25 04/10/25 Range/Units 08:27 08:27 11:31 WBC 16.44 H (4.50-10.00) 10*3/uL RBC 4.23 L (4.40-5.60) 10*6/uL Hgb 12.3 L (13.0-17.0) g/dL Hct 38.4 L (39.6-50.0) % MPV 9.3 L (9.5-12.2) fL Immature Gran # 0.12 H (0.00-0.04) 10*3/uL Neutrophils # 15.45 H (1.80-7.70) 10*3/uL Lymphocytes # 0.42 L (0.90-5.00) 10*3/uL Eosinophils # 0.00 L (0.04-0.35) 10*3/uL Chloride 108 H (98-107) mmol/L BUN 44 H (9-20) mg/dL Glucose 177 H (74-99) mg/dL POC Glucose (mg/dL) 174 H (70-110) mg/dL Microbiology - Last 24 Hours (Table) 04/05/25 23:28 Gram Stain - Final Sputum Sputum Culture - Final Rhizomucor species Assessment and Plan (1) Pneumonia Current Visit: Yes Status: Acute Code(s): J18.9 - PNEUMONIA, UNSPECIFIED ORGANISM SNOMED Code(s): 729187808 (2) Mucormycosis Current Visit: Yes Status: Acute Code(s): B46.5 - MUCORMYCOSIS, UNSPECIFIED SNOMED Code(s): 88261117 Plan: 1patient presented to hospital with weakness wobbly gait did have a cough bringing up purulent sputum with some blood mixed did have elevated white count with bibasilar infiltrate on the chest x-ray highly suspicious for pneumonia in this patient did have underlying history of COPD. 2blood cultures are pending and sputum culture currently growing fungus which has been defined as Rhizomucar species 3with the growth of Rhizomucar species in the sputum which is the cause of severe fungal pneumonia patient was empirically started on liposomal amphotericin B while waiting for the CT of the chest to be completed. CT reported by radiologist as no consolidation/pneumonia and I have confirmed it with the avionics repair technician who did not see any evidence of any infected bullae or cavities more likely indicating positive sputum is possible contamination as we do not have any evidence of pneumonia on the CT of the chest that was done with contrast, I will go ahead and discontinue AmBisome to decrease risk of any toxicity associated with it 4patient is more sleepy today questionable related to cefepime which will be discontinued will start the patient on Rocephin, repeat sputum culture requested yesterday so far not collected Daughter at the bedside multiple question concern answered Dictation was produced using [employer] dictation software. please excuse any grammatical, word or spelling errors. Time with Patient: Greater than 30
[2025-04-10 16:16] LABS: Glucose,Whole Blood 254 mg/dL (70-110)
--- NOTE | 2025-04-10 19:02 | P.PN ---
Subjective Progress Note Date: 04/10/25 This is a pleasant 74-year-old male who was recently admitted with COPD exacerbation as well as bilateral pneumonia being closely monitored with infectious disease and pulmonary following. Preliminary sputum culture showing fungal isolation and will await finalized cultures. Discussed with micro lab about running sensitivities to ensure appropriate antibiotics. Patient reported to feeling much better and would like to go home and had been cleared by pulmonary and undergoing home oxygen testing with walking and started feeling short of breath like he had felt when he had a previous collapsed lung. Per nursing staff a team was called as they were absent lung sounds on the right with concerns of respiratory distress. Stat chest x-ray was performed revealing a right pneumothorax and patient was brought to the ICU per pulmonary for chest tube insertion and closer monitoring. Will follow-up with repeat chest x-ray in a.m. 04/09/2025 Patient is seen in follow-up status post right pneumothorax with Thora vent placement by pulmonary and remains in the ICU although is a downgrade to 3 S. once a bed becomes available. Patient reported per pulmonary will continue with for event for another 24 to 48 hours with serial x-rays. This morning's chest x-ray reveals right thoracotomy tube present without pneumothorax visualized. Infectious disease also following and patient is maintained on antibiotics in the form of cefepime and was maintained on Levaquin. Preliminary sputum culture showing a fungal isolate and discussed with micro lab regarding running this sensitivity which remains pending at this time. Patient continues on 3 L via nasal cannula and encouraged incentive spirometer use and is maintained on continued breathing treatments. Encouraged increased activity as tolerated. Patient will continue on IV steroids and [id number] DuoNeb treatments. 04/10/20[address] in place. Patient's cultures come back showing RhizoMucor species and patient was started on IV Amphotencin. [place] this may have been a contaminent species and repeat sputum was ordered by ID. Currently on IV ceftriaxone. White blood cell count 16.44. Chest xray shows right thoracotomy device without appreciable pneumothorax. COPD. Review of systems: Constitutional: No reports of fatigue, fever, or chills Cardiovascular: No reports of chest pain or palpitations Respiratory: reports of shortness of breath although improved status post thoracotomy, occasional cough GI: No reports of nausea, no reports of vomiting, occasional loose stools : No reports of dysuria or retention Neurovascular: No reports of generalized weakness All medications have been reviewed PHYSICAL EXAMINATION: GENERAL: The patient is alert and oriented x4, Well developed, thin built, elderly appearing HEENT: Pupils are round and equally reacting to light. EOMI. no scleral icterus. No conjunctival pallor. Normocephalic, atraumatic. No pharyngeal erythema. No thyromegaly. CARDIOVASCULAR: S1 and S2 muffled PULMONARY: diminished breath sounds bilaterally with faint expiratory wheezing with scattered rhonchi noted. Improved aeration on the right ABDOMEN: soft. Nontender on exam. Thin. Non-distended, normoactive bowel sounds. No palpable organomegaly. MUSCULOSKELETAL: No joint swelling or deformity. EXTREMITIES: No cyanosis, clubbing, or pedal edema. NEUROLOGICAL: Gross neurological examination did not reveal any focal deficits. SKIN: No rashes. Assessment: Chronic obstructive pulmonary disease, acute exacerbation with acute bilateral pneumonia with possibly gram-negative, sputum cultures pending, fungal isolate noted on sputum culture and pending for sensitivities per micro lab Spontaneous right pneumothorax, 04/08/2025 status post Thora vent placement Acute hypoxic respiratory failure secondary to above Leukocytosis, multifactorial, likely secondary to acute bilateral pneumonia with a component of steroid effect Diabetes mellitus, type II, uncontrolled with hyperglycemia, likely steroid effect as well History of pulmonary embolism history of coronary artery disease with previous stenting History of recent urinary tract infection with Serratia in February 2025, had co mpleted Cipro on discharge History of bullous emphysema and previous bullectomy History of CVA/TIA History of anxiety with PTSD History of chronic back pain GI prophylaxis DVT prophylaxis Full code Plan: Recommend to continue with current medications and management with pulmonary and infectious disease following. Patient was initially wanting to go home had been cleared by pulmonary once cleared by other consultations and was being tested for home oxygen per nursing staff and started developing shortness of breath and reported to staff that he felt how he previously felt when he had a collapsed lung. Nursing assessment revealed absent lung sounds on the right and in a team was called. Stat chest x-ray revealed a right pneumothorax, spontaneous and patient was brought to the ICU status post Thora vent placement and closer monitoring. Per patient pulmonary reports at least 1-2 more days removing and recommend serial x-rays Recommend incentive spirometer use/flutter device with respiratory following and will continue on breathing treatments Infectious disease following as well and sputum cultures are preliminary showing a fungal isolation and medications being adjusted. Patient is continued on ceftriaxone. Micro lab contacted and running sensitivities on this fungal isolate which is pending at this time. Patient as been started on IV Amphotericin which has since been discontinued and ID awaiting repeat sputum culture. Will follow-up on repeat labs and monitor electrolytes closely. Replace electrolytes per protocol Continue monitoring Accu-Cheks AC and at bedtime and will adjust insulins accordingly Repeat chest x-ray ordered for a.m. Encouraged increase activity as tolerated with frequent walking The impression and plan of care has been dictated by Ching Robles, Nurse Practitioner as directed. Dr. Mark MD I have performed a history and examination and MDM of this patient, discussed the same with the dictator, and agree with the dictator's assessment and plan as written ,documented as a scribe. Based on total visit time, I have performed more than 50% of the visit. Objective - Vital Signs Vital signs: Vital Signs Temp 98.1 F 04/10/25 08:52 Pulse 78 04/10/25 08:55 Resp 18 04/10/25 08:52 BP 129/74 04/10/25 08:52 Pulse Ox 92 L 04/10/25 08:52 FiO2 Intake & Output 04/09/25 04/10/25 04/10/25 18:59 06:59 18:59 Intake Total 355 30 15 Output Total 0 Balance 355 30 15 Weight 84.2 kg Intake: IV 15 30 15 Invasive Line 1 10 20 10 Invasive Line 3 5 10 5 Intake, IV Titration 100 Amount Voriconazole 500 mg In 100 Sodium Chloride 0.9% 100 ml @ 50 mls/hr IVPB Q12H [facility] Rx#:[id number] Oral 240 Output: Urine 0 Other: Voiding Method Toilet Toilet Toilet # Voids 1 # Bowel Movements 1 - Labs CBC & Chem 7: 04/10/25 08:27 04/10/25 08:27 Labs: Abnormal Lab Results - Last 24 Hours (Table) 04/09/25 04/09/25 04/09/25 Range/Units 11:09 16:23 20:21 POC Glucose (mg/dL) 204 H 180 H 192 H (70-110) mg/dL 04/10/25 Range/Units 05:37 POC Glucose (mg/dL) 201 H (70-110) mg/dL Microbiology - Last 24 Hours (Table) 06/09/25 23:28 Gram Stain - Final Sputum Sputum Culture - Final Rhizomucor species Assessment and Plan Time with Patient: Less than 30
[2025-04-10 20:24] LABS: Glucose,Whole Blood 206 mg/dL (70-110)
[2025-04-11 05:52] LABS: Glucose,Whole Blood 214 mg/dL (70-110)
--- NOTE | 2025-04-11 07:19 | XR ---
EXAMINATION TYPE: XR chest 1V DATE OF EXAM: 04/11/2025 4:26 AM COMPARISON: Chest radiograph from one day prior. CLINICAL INDICATION: Male, 74 years old with history of thoravent right chest; [facility] TECHNIQUE: XR chest 1V Frontal view of the chest. FINDINGS: Lungs/Pleura: Right thoracotomy device is present. There is flattening of the diaphragm with increase d lucency of the lungs. No evidence of pneumothorax, pleural effusion or focal consolidation. Pulmonary vascularity: Unremarkable. Heart/mediastinum: Cardiomediastinal silhouette is unremarkable. Musculoskeletal: No acute osseous pathology. Other findings: Subcutaneous emphysema scattered throughout the visualized right thorax. IMPRESSION: 1. Right thoracotomy device without appreciable pneumothorax. 2. COPD. 3. [facility], , 04/11/2025 7:17 AM
[2025-04-11] MEDS: ATORVASTATIN 20 MG TAB PO SCH (08:12)
[2025-04-11 11:49] LABS: Glucose,Whole Blood 170 mg/dL (70-110)
--- NOTE | 2025-04-11 13:59 | P.PN ---
Subjective Progress Note Date: 04/11/25 This is a pleasant 74-year-old male who was recently admitted with COPD exacerbation as well as bilateral pneumonia being closely monitored with infectious disease and pulmonary following. Preliminary sputum culture showing fungal isolation and will await finalized cultures. Discussed with micro lab about running sensitivities to ensure appropriate antibiotics. Patient reported to feeling much better and would like to go home and had been cleared by pulmonary and undergoing home oxygen testing with walking and started feeling short of breath like he had felt when he had a previous collapsed lung. Per nursing staff a team was called as they were absent lung sounds on the right with concerns of respiratory distress. Stat chest x-ray was performed revealing a right pneumothorax and patient was brought to the ICU per pulmonary for chest tube insertion and closer monitoring. Will follow-up with repeat chest x-ray in a.m. 04/09/2025 Patient is seen in follow-up status post right pneumothorax with Thora vent placement by pulmonary and remains in the ICU although is a downgrade to 3 S. once a bed becomes available. Patient reported per pulmonary will continue with for event for another 24 to 48 hours with serial x-rays. This morning's chest x-ray reveals right thoracotomy tube present without pneumothorax visualized. Infectious disease also following and patient is maintained on antibiotics in the form of cefepime and was maintained on Levaquin. Preliminary sputum culture showing a fungal isolate and discussed with micro lab regarding running this sensitivity which remains pending at this time. Patient continues on 3 L via nasal cannula and encouraged incentive spirometer use and is maintained on continued breathing treatments. Encouraged increased activity as tolerated. Patient will continue on IV steroids and [id number] DuoNeb treatments. 04/10/[address]. Patient's cultures come back showing RhizoMucor species and patient was started on IV Amphotencin. [place] this may have been a contaminent species and repeat sputum was ordered by ID. Currently on IV ceftriaxone. White blood cell count 16.44. Chest xray shows right thoracotomy device without appreciable pneumothorax. COPD. 04/11/2025 Patient is evaluated in follow-up in the medical floor. His repeat sputum culture has been collected and currently pending at this time. He is currently off the IV antifungal. Chest x-ray today reveals right thoracotomy device without appreciable pneumothorax. Findings of COPD. His thoravent was capped today. Review of systems: Constitutional: No reports of fatigue, fever, or chills Cardiovascular: No reports of chest pain or palpitations Respiratory: reports of shortness of breath although improved status post thoracotomy, occasional cough GI: No reports of nausea, no reports of vomiting, occasional loose stools : No reports of dysuria or retention Neurovascular: No reports of generalized weakness All medications have been reviewed PHYSICAL EXAMINATION: GENERAL: The patient is alert and oriented x4, Well developed, thin built, elderly appearing HEENT: Pupils are round and equally reacting to light. EOMI. no scleral icterus. No conjunctival pallor. Normocephalic, atraumatic. No pharyngeal erythema. No thyromegaly. CARDIOVASCULAR: S1 and S2 muffled PULMONARY: diminished breath sounds bilaterally with faint expiratory wheezing with scattered rhonchi noted. Improved aeration on the right ABDOMEN: soft. Nontender on exam. Thin. Non-distended, normoactive bowel sounds. No palpable organomegaly. MUSCULOSKELETAL: No joint swelling or deformity. EXTREMITIES: No cyanosis, clubbing, or pedal edema. NEUROLOGICAL: Gross neurological examination did not reveal any focal deficits. SKIN: No rashes. Assessment: Chronic obstructive pulmonary disease, acute exacerbation with acute bilateral pneumonia with possibly gram-negative, sputum cultures pending, fungal isolate noted on sputum culture and pending for sensitivities per micro lab Spontaneous right pneumothorax, 04/08/2025 status post Thora vent placement Acute hypoxic respiratory failure secondary to above Leukocytosis, multifactorial, likely secondary to acute bilateral pneumonia with a component of steroid effect Diabetes mellitus, type II, uncontrolled with hyperglycemia, likely steroid effect as well History of pulmonary embolism history of coronary artery disease with previous stenting History of recent urinary tract infection with Serratia in February 2025, had completed Cipro on discharge History of bullous emphysema and previous bullectomy History of CVA/TIA History of anxiety with PTSD History of chronic back pain GI prophylaxis DVT prophylaxis Full code Plan: Recommend to continue with current medications and management with pulmonary and infectious disease following. Patient was initially wanting to go home had been cleared by pulmonary once cleared by other consultations and was being tested for home oxygen per nursing staff and started developing shortness of breath and reported to staff that he felt how he previously felt when he had a collapsed lung. Nursing assessment revealed absent lung sounds on the right and in a team was called. Stat chest x-ray revealed a right pneumothorax, spontaneous and patient was brought to the ICU status post Thora vent placement and closer monitoring. Thoravent has been capped today will follow-up with a chest x-ray in the morning Recommend incentive spirometer use/flutter device with respiratory following and will continue on breathing treatments Infectious disease following as well and sputum cultures are preliminary showing a fungal isolation and medications being adjusted. Patient is continued on ceftriaxone. Micro lab contacted and running sensitivities on this fungal isolate which is pending at this time. Patient as been started on IV Amphotericin which has since been discontinued and ID awaiting repeat sputum culture. Will follow-up on repeat labs and monitor electrolytes closely. Replace electrolytes per protocol Continue monitoring Accu-Cheks AC and at bedtime and will adjust insulins accordingly Repeat chest x-ray ordered for a.m. Encouraged increase activity as tolerated with frequent walking The impression and plan of care has been dictated by Ching Robles, Nurse Practitioner as directed. Dr. Mark MD I have performed a history and examination and MDM of this patient, discussed the same with the dictator, and agree with the dictator's assessment and plan as written ,documented as a scribe. Based on total visit time, I have performed more than 50% of the visit. Objective - Vital Signs Vital signs: Vital Signs Temp 97.7 F 04/11/25 08:04 Pulse 77 04/11/25 08:04 Resp 18 04/11/25 08:04 BP 118/67 04/11/25 08:04 Pulse Ox 96 04/11/25 08:04 FiO2 Intake & Output 04/10/25 04/11/25 04/11/25 18:59 06:59 18:59 Intake Total 30 150 Balance 30 150 Weight 84.4 kg Intake: IV 30 10 Invasive Line 1 20 10 Invasive Line 3 10 Intake, IV Titration 100 Amount cefTRIAXone 2 gm In 100 Sodium Chloride 0.9% 50 ml @ 100 mls/hr IVPB Q24H [facility] Rx#:[id number] Oral 40 Other: Voiding Method Toilet Toilet Toilet # Voids 2 - Labs CBC & Chem 7: 04/10/25 08:27 04/10/25 08:27 Labs: Abnormal Lab Results - Last 24 Hours (Table) 04/10/25 04/10/25 04/10/25 Range/Units 08:27 08:27 11:31 WBC 16.44 H (4.50-10.00) 10*3/uL RBC 4.23 L (4.40-5.60) 10*6/uL Hgb 12.3 L (13.0-17.0) g/dL Hct 38.4 L (39.6-50.0) % MPV 9.3 L (9.5-12.2) fL Immature Gran # 0.12 H (0.00-0.04) 10*3/uL Neutrophils # 15.45 H (1.80-7.70) 10*3/uL Lymphocytes # 0.42 L (0.90-5.00) 10*3/uL Eosinophils # 0.00 L (0.04-0.35) 10*3/uL Chloride 108 H (98-107) mmol/L BUN 44 H (9-20) mg/dL Glucose 177 H (74-99) mg/dL POC Glucose (mg/dL) 174 H (70-110) mg/dL 04/10/25 04/10/25 04/11/25 Range/Units 16:13 20:19 05:50 WBC (4.50-10.00) 10*3/uL RBC (4.40-5.60) 10*6/uL Hgb (13.0-17.0) g/dL Hct (39.6-50.0) % MPV (9.5-12.2) fL Immature Gran # (0.00-0.04) 10*3/uL Neutrophils # (1.80-7.70) 10*3/uL Lymphocytes # (0.90-5.00) 10*3/uL Eosinophils # (0.04-0.35) 10*3/uL Chloride (98-107) mmol/L BUN (9-20) mg/dL Glucose (74-99) mg/dL POC Glucose (mg/dL) 254 H 206 H 214 H (70-110) mg/dL Microbiology - Last 24 Hours (Table) 04/10/25 16:15 Gram Stain - Preliminary Sputum 04/05/25 20:50 Blood Culture - Final Blood Assessment and Plan Time with Patient: Less than 30
--- NOTE | 2025-04-11 14:58 | P.PN ---
Subjective Progress Note Date: 04/11/25 Patient is a 74-year-old male with past medical history significant for severe COPD/emphysema, previous pneumothoraces, bullectomy, PE, hypertension, hyperlipidemia, CAD, CVA/TIA, diabetes mellitus, GERD, hiatal hernia, frequent urinary tract infections with previous TURP, previous [place], PTSD, migraines. Does follow in the pulmonary office with Dr. Rascon. Of note, patient had a recent hospitalization in Feb, 2025 for urinary tract infection, as well as, possible left lower lung pneumonia. Urine positive Serratia marcescens. Ended up being discharged on 03/17/25 with a course of ciprofloxacin. Reportedly, did complete his antibiotics. At the last couple days developed increased cough with small hemoptysis mixed with sputum. Patient does take Eliquis on outpatient basis. Ended up going to his primary care provider, Dr. Giordano, for evaluation yesterday. She recommended that he come to the emergency department. Workup in the emergency department including chest x-ray showing bilateral lower lobe infiltrates, possible worse from comparison. CBC: WBC count 12.54, hemoglobin 14.8, platelets 224. CMP: Sodium 139, potassium 4.4, chloride 110, serum bicarb 24, BUN 16, creatinine 0.77, glucose 147. Lactic 1.1. LFTs not elevated. Troponin less than 0.012. NT proBNP low. EKG: Sinus rhythm, rate 68 bpm, no acute ischemic changes noted. UA unremarkable for infection. Patient currently being evaluated in the emergency department. Sitting comfortably at the edge of the bed. On room air. No acute respiratory distress. The last several days has developed increased weakness, dizziness, and headaches. Endorsing increased work of breathing with cough that is productive with occasional hemoptysis mixed with black sputum. Also, reporting associated low-grade fevers. Denies recent known sick contacts. Denies localized chest pain, heart palpitations, syncopal events, lower extremity edema, orthopnea. Denies dysuria, hematuria, flank pain. Afebrile. Current vital stable. The patient is seen today April 07, 2025 in follow-up on the regular medical floor. He is currently sitting up at the bedside. Awake and alert in no acute distress. He is currently maintaining O2 saturations in the 90s on room air oxygen. He is afebrile. Hemodynamically stable. Blood culture revealed no growth. Sputum culture reveals no growth. White count 12.3. Hemoglobin 13.0. Platelets 183. Sodium 144. Potassium 4.4. Bicarb 21. BUN 17. Creatinine 0.7. Glucose 162. He remains on DuoNeb inhalations, Solu-Medrol. He remains on Levaquin. Anticoagulated with Eliquis. The patient is seen today April 08, 2025 in follow-up on the regular medical floor. He is awake and alert in no acute distress. Sitting up in bed. Denies any worsening shortness of breath, cough or congestion. A bit better today compared to yesterday but not back to his baseline. He is maintaining good O2 saturations in the 90s on 2 L/min per nasal cannula. He is afebrile. Hemodynamically stable. Glucose 165. Total protein 5.0. IgG 615. IgE 134. IgM 53.5. IgA 243. HIV screen negative. He remains on DuoNeb inhalations, Solu-Medrol. Continued on Levaquin. Anticoagulated with Eliquis. Patient was seen today on 04/09/2025, patient developed spontaneous right-sided pneumothorax yesterday, moved up to the ICU and a right-sided Thora vent 13 Micronesian was placed and complete reexpansion of the right lung was noted. Patient was on wall suction overnight, today the lung remains fully expanded, no pneumothorax, no airleak, hence the patient be placed on waterseal. Patient is relatively asymptomatic except last night he had an episode of vomiting bright red blood had 1 episode after he was having lots of dry heaves. And episodes of nausea. I felt most like the patient had a Mary-Med[place] tear. GI was consulted, in the meantime his hemoglobin remained the same, patient did not dr op much, continues to have episodes of nausea today, but no further episodes of vomiting or coughing up any blood. Chest x-ray is still showing expansion of the right lung, no evidence of acute process. Patient has been on Eliquis for many years for history of DVT and pulmonary embolism Eliquis is presently on hold, however the patient remains on Plavix and is also on Protonix. WBC count is 18.7 hemoglobin 13.9 electrolytes are normal renal profile is normal. Seen today on 04/10/2025, patient continues to do fairly well, he has no air leak, chest x-ray showed hardly any pneumothorax, patient did have a CT of the chest because of sputum cultures showing Rhizo Mucor species in the sputum, i nfectious disease was concerned about possible infected cavities in the lungs which was not seen on the CT of the chest. Patient did receive Amphotericin yesterday, however since the CT of the chest is not showing any cavitary lesions, the Amphotericin will be discontinued as per infectious disease. Clinically the patient is feeling better breathing easier. He continues to havethoravent in place. WBC 16.4 hemoglobin 12.3 electrolytes are normal renal profile is normal The patient is seen today April 11, 2025 in follow-up on the selective care unit. He is currently sitting up in bed. Awake and alert in no acute distress. He denies any worsening shortness of breath, cough or congestion. He is maintaining good O2 saturation in the mid 90s on 3 L/min per nasal cannula. Has been afebrile. Hemodynamically stable. Today's chest x-ray reveals no appreciable pneumothorax on the right. Right sided Thora vent remains in place. Evidence of COPD. Thora vent remains to Pleur-evac. No evidence of a leak. It was capped today. Follow-up chest x-ray in a.m. sputum culture was positive for right so Mucor species. Follow-up sputum culture pending. Glucose 170. He remains on ceftriaxone. He received only 1 dose of amphotericin B. Continued on DuoNeb inhalations, Solu-Medrol. Objective - Vital Signs Vital signs: Vital Signs Temp 98.4 F 04/11/25 11:55 Pulse 79 04/11/25 11:55 Resp 18 04/11/25 11:55 BP 142/81 04/11/25 11:55 Pulse Ox 95 04/11/25 11:55 FiO2 Intake & Output 04/10/25 04/11/25 04/11/25 18:59 06:59 18:59 Intake Total 30 150 237 Balance 30 150 237 Weight 84.4 kg Intake: IV 30 10 15 Invasive Line 1 20 10 15 Invasive Line 3 10 Intake, IV Titration 100 Amount cefTRIAXone 2 gm In 100 Sodium Chloride 0.9% 50 ml @ 100 mls/hr IVPB Q24H [facility] Rx#:[id number] Oral 40 222 Other: Voiding Method Toilet Toilet Toilet # Voids 2 - Exam GENERAL EXAM: Alert, pleasant 74-year-old male, on 3 L/min per nasal cannula, in no apparent distress. HEAD: Normocephalic. EYES: Normal reaction of pupils, equal size. NOSE: Clear with pink turbinates. THROAT: No erythema or exudates. NECK: No masses, no JVD. CHEST: No chest wall deformity. Right sided Thora vent catheter in place to Pleur-evac. No leak noted LUNGS: Equal air entry with few scattered rhonchi. CVS: S1 and S2 normal with no audible murmur, regular rhythm. ABDOMEN: No hepatosplenomegaly, normal bowel sounds, no guarding or rigidity. SPINE: No scoliosis or deformity SKIN: No rashes CENTRAL NERVOUS SYSTEM: No focal deficits, tone is normal in all 4 extremities. EXTREMITIES: There is no peripheral edema. No clubbing, no cyanosis. Peripheral pulses are intact. - Labs CBC & Chem 7: 04/10/25 08:27 04/10/25 08:27 Labs: Abnormal Lab Results - Last 24 Hours (Table) 04/10/25 04/10/25 04/11/25 Range/Units 16:13 20:19 05:50 POC Glucose (mg/dL) 254 H 206 H 214 H (70-110) mg/dL 04/11/25 Range/Units 11:48 POC Glucose (mg/dL) 170 H (70-110) mg/dL Microbiology - Last 24 Hours (Table) 04/10/25 16:15 Gram Stain - Preliminary Sputum 04/05/25 20:50 Blood Culture - Final Blood Assessment and Plan Assessment: Acute COPD exacerbation Acute right sided pneumothorax requiring Thora vent placement on 04/08/2025. Capped today Sputum culture positive for Rhizomucor species Acute hypoxic respiratory failure, secondary to above Recent urinary tract infection, urine positive for Serratia marcescens 02/26, treated with course of ciprofloxacin History of bullous emphysema and previous bullectomy History of pneumothoraces History of previous TURP and frequent urinary tract infections History of E. coli sputum positive in August 2024 Remote history of pulmonary embolism, chronically anticoagulated on Eliquis Hypertension History of hyperlipidemia History of coronary disease with previous PCI/stents History of CVA/TIA Type 2 diabetes mellitus GERD History of hiatal hernia Chronic back pain Anxiety/PTSD History of migraines Plan: The patient is seen and evaluated Chest x-ray, labs and medications reviewed Microbiology reviewed Currently on ceftriaxone Thora vent capped today Follow-up chest x-ray in a.m. Probably remove the Thora vent tomorrow Continued on bronchodilators, steroids Titrate down/off the FiO2 as tolerated We will continue to follow I have personally seen and examined the patient, performed the documentation and the assessment and plan as written. Number of minutes spent on the visit: 10 Dictation was produced using [employer] dictation software. Please excuse any grammatical, word or spelling errors.
--- NOTE | 2025-04-11 15:47 | P.PN ---
Subjective Progress Note Date: 04/11/25 Principal diagnosis: Reason for follow-up is pneumonia Patient is a 74-year-old male with a past medical history significant for COPD CVA TIA diabetes mellitus reflux VT prostate disorder presents to the hospital with shortness of breath cough has been diagnosed with pneumonia prompted this consultation. On today's evaluation that is 04/11/2025, Patient is afebrile patient is currently on 4 L nasal oxygen the patient is more awake and alert he is up in the bed and mention breathing comfortably the patient right-sided chest pain has decreased in intensity continue to have a cough no worsening no abdominal pain or diarrhea. Denies having any pain to the sinuses area or any postnasal drip. No new lab has been obtained today repeat sputum is pending Objective - Vital Signs Vital signs: Vital Signs Temp 98.4 F 04/11/25 11:55 Pulse 79 04/11/25 11:55 Resp 18 04/11/25 11:55 BP 142/81 04/11/25 11:55 Pulse Ox 95 04/11/25 11:55 FiO2 Intake & Output 04/10/25 04/11/25 04/11/25 18:59 06:59 18:59 Intake Total 30 150 237 Balance 30 150 237 Weight 84.4 kg Intake: IV 30 10 15 Invasive Line 1 20 10 15 Invasive Line 3 10 Intake, IV Titration 100 Amount cefTRIAXone 2 gm In 100 Sodium Chloride 0.9% 50 ml @ 100 mls/hr IVPB Q24H [facility] Rx#:[id number] Oral 40 222 Other: Voiding Method Toilet Toilet Toilet # Voids 2 - Exam GENERAL DESCRIPTION: An elderly male lying in bed in no distress. HEENT: No sinus tenderness was noticed and normal examination of the nasal cavity RESPIRATORY SYSTEM: Unlabored breathing , coarse breath sounds bilaterally HEART: S1 S2 regular rate and rhythm , ABDOMEN: Soft , no tenderness EXTREMITIES: No edema feet - Labs CBC & Chem 7: 04/10/25 08:27 04/10/25 08:27 Labs: Abnormal Lab Results - Last 24 Hours (Table) 04/10/25 04/10/25 04/11/25 Range/Units 16:13 20:19 05:50 POC Glucose (mg/dL) 254 H 206 H 214 H (70-110) mg/dL 04/11/25 Range/Units 11:48 POC Glucose (mg/dL) 170 H (70-110) mg/dL Microbiology - Last 24 Hours (Table) 04/10/25 16:15 Gram Stain - Preliminary Sputum 04/05/25 20:50 Blood Culture - Final Blood Assessment and Plan (1) Pneumonia Current Visit: Yes Status: Acute Code(s): J18.9 - PNEUMONIA, UNSPECIFIED ORGANISM SNOMED Code(s): 897457323 (2) Mucormycosis Current Visit: Yes Status: Acute Code(s): B46.5 - MUCORMYCOSIS, UNSPECIFIED SNOMED Code(s): 79532045 Plan: 1patient presented to hospital with weakness wobbly gait did have a cough bringing up purulent sputum with some blood mixed did have elevated white count with bibasilar infiltrate on the chest x-ray highly suspicious for pneumonia in this patient did have underlying history of COPD. 2blood cultures are pending and sputum culture currently growing fungus which has been defined as Rhizomucar species 3with the growth of Rhizomucar species in the sputum which is the cause of severe fungal pneumonia patient was empirically started on liposomal amphotericin B while waiting for the CT of the chest to be completed. CT reported by radiologist as no consolidation/pneumonia and I have confirmed it with the director of physical education who did not see any evidence of any infected bullae or cavities more likely indicating positive sputum is possible contamination as we do not have any evidence of pneumonia on the CT of the chest that was done with contrast, AmBisome was discontinued on 04/10/2025 4patient did have clinical improvement remains to be afebrile repeat sputum cultures currently pending continue with Delio Multiple family members at the bedside multiple questions and concerns were answered in layman term Dictation was produced using [employer] dictation software. please excuse any grammatical, word or spelling errors. Time with Patient: Less than 30
[2025-04-11 16:19] LABS: Glucose,Whole Blood 212 mg/dL (70-110)
[2025-04-11 20:21] LABS: Glucose,Whole Blood 147 mg/dL (70-110)
[2025-04-12 05:47] LABS: Glucose,Whole Blood 190 mg/dL (70-110)
[2025-04-12 06:35] LABS: Basophils # (A) 0.01 10*3/uL (0.00-0.10); Basophils % (A) 0.1 %; HGB 13.5 g/dL (13.0-17.0); Lymphocytes # (A) 0.32 10*3/uL (0.90-5.00); Lymphocytes % (A) 2.3 %; MCHC 32.9 g/dL (32.0-37.0); MCV 88.2 fL (80.0-97.0); Mean Platelet Volume 8.8 fL (9.5-12.2); Monocytes % (A) 2.1 %; Neutrophils # (A) 13.28 10*3/uL (1.80-7.70); Neutrophils % (A) 94.5 %; Platelet Count 192 10*3/uL (140-440); RBC 4.65 10*6/uL (4.40-5.60); RDW 14.9 % (11.5-14.5); WBC 14.05 10*3/uL (4.50-10.00)
[2025-04-12 07:07] LABS: African American GFR (CKD) >90 (>60 ml/min/1.73 sqM); Anion Gap 7 mmol/L; Blood Urea Nitrogen 42 mg/dL (9-20); Calcium 8.7 mg/dL (8.4-10.2); Carbon Dioxide 25 mmol/L (22-30); Chloride 108 mmol/L (98-107); Glucose 200 mg/dL (74-99); Non-African American GFR(CKD) >90 (>60 ml/min/1.73 sqM); Sodium 140 mmol/L (137-145)
--- NOTE | 2025-04-12 08:20 | XR ---
EXAMINATION TYPE: XR chest 1V portable DATE OF EXAM: 04/12/2025 6:38 AM COMPARISON: Chest radiograph from one day prior. CLINICAL INDICATION: Male, 74 years old with history of Pneumothorax; [facility] TECHNIQUE: XR chest 1V portable Frontal view of the chest. FINDINGS: Lungs/Pleura: Right thoracotomy device is present. There is flattening of the diaphragm with increase d lucency of the lungs. No evidence of pneumothorax, pleural effusion or focal consolidation. Pulmonary vascularity: Unremarkable. Heart/mediastinum: Cardiomediastinal silhouette is unremarkable. Musculoskeletal: No acute osseous pathology. Other findings: Subcutaneous emphysema scattered throughout the visualized right thorax. IMPRESSION: 1. Right thoracotomy device without appreciable pneumothorax. 2. COPD. [facility], , 04/12/2025 8:17 AM
[2025-04-12 10:07] LABS: Albumin 2.83 g/dL (3.80-4.90); Gamma Globulin 0.57 g/dL (0.70-1.50)
[2025-04-12 11:37] LABS: Glucose,Whole Blood 198 mg/dL (70-110)
--- NOTE | 2025-04-12 13:54 | XR ---
EXAMINATION TYPE: XR chest 1V portable DATE OF EXAM: 04/12/2025 1:38 PM COMPARISON: Chest radiographs from same day CLINICAL INDICATION: Male, 74 years old with history of chest tube removal; [facility] TECHNIQUE: XR chest 1V portable Frontal view of the chest. FINDINGS: Lungs/Pleura: There is no evidence of pleural effusion, focal consolidation, or pneumothorax. Pulmonary vascularity: Unremarkable. Heart/mediastinum: Cardiomediastinal silhouette is unremarkable. Musculoskeletal: No acute osseous pathology. Other findings: Subcutaneous emphysema scattered throughout the visualized right thorax. Lines/Tubes: Removal of thoracotomy device. No pneumothorax identified. IMPRESSION: Removal of thoracotomy device. No pneumothorax identified. [facility], Workstation: [id number], 04/12/2025 1:51 PM
[2025-04-12 14:09] VITALS: BMI 25.9
[2025-04-12 16:40] LABS: Glucose,Whole Blood 227 mg/dL (70-110)
--- NOTE | 2025-04-12 16:46 | P.PN ---
Subjective Progress Note Date: 04/12/25 Patient is a 74-year-old male with past medical history significant for severe COPD/emphysema, previous pneumothoraces, bullectomy, PE, hypertension, hyperlipidemia, CAD, CVA/TIA, diabetes mellitus, GERD, hiatal hernia, frequent urinary tract infections with previous TURP, previous DE, PTSD, migraines. Does follow in the pulmonary office with Dr. Rascon. Of note, patient had a recent hospitalization in Feb, 2025 for urinary tract infection, as well as, possible left lower lung pneumonia. Urine positive Serratia marcescens. Ended up being discharged on 03/17/25 with a course of ciprofloxacin. Reportedly, did complete his antibiotics. At the last couple days developed increased cough with small hemoptysis mixed with sputum. Patient does take Eliquis on outpatient basis. Ended up going to his primary care provider, Dr. Giordano, for evaluation yesterday. She recommended that he come to the emergency department. Workup in the emergency department including chest x-ray showing bilateral lower lobe infiltrates, possible worse from comparison. CBC: WBC count 12.54, hemoglobin 14.8, platelets 224. CMP: Sodium 139, potassium 4.4, chloride 110, serum bicarb 24, BUN 16, creatinine 0.77, glucose 147. Lactic 1.1. LFTs not elevated. Troponin less than 0.012. NT proBNP low. EKG: Sinus rhythm, rate 68 bpm, no acute ischemic changes noted. UA unremarkable for infection. Patient currently being evaluated in the emergency department. Sitting comfortably at the edge of the bed. On room air. No acute respiratory distress. The last several days has developed increased weakness, dizziness, and headaches. Endorsing increased work of breathing with cough that is productive with occasional hemoptysis mixed with black sputum. Also, reporting associated low-grade fevers. Denies recent known sick contacts. Denies localized chest pain, heart palpitations, syncopal events, lower extremity edema, orthopnea. Denies dysuria, hematuria, flank pain. Afebrile. Current vital stable. The patient is seen today April 07, 2025 in follow-up on the regular medical floor. He is currently sitting up at the bedside. Awake and alert in no acute distress. He is currently maintaining O2 saturations in the 90s on room air oxygen. He is afebrile. Hemodynamically stable. Blood culture revealed no growth. Sputum culture reveals no growth. White count 12.3. Hemoglobin 13.0. Platelets 183. Sodium 144. Potassium 4.4. Bicarb 21. BUN 17. Creatinine 0.7. Glucose 162. He remains on DuoNeb inhalations, Solu-Medrol. He remains on Levaquin. Anticoagulated with Eliquis. The patient is seen today April 08, 2025 in follow-up on the regular medical floor. He is awake and alert in no acute distress. Sitting up in bed. Denies any worsening shortness of breath, cough or congestion. A bit better today compared to yesterday but not back to his baseline. He is maintaining good O2 saturations in the 90s on 2 L/min per nasal cannula. He is afebrile. Hemodynamically stable. Glucose 165. Total protein 5.0. IgG 615. IgE 134. IgM 53.5. IgA 243. HIV screen negative. He remains on DuoNeb inhalations, Solu-Medrol. Continued on Levaquin. Anticoagulated with Eliquis. Patient was seen today on 04/09/2025, patient developed spontaneous right-sided pneumothorax yesterday, moved up to the ICU and a right-sided Thora vent 13 [place] was placed and complete reexpansion of the right lung was noted. Patient was on wall suction overnight, today the lung remains fully expanded, no pneumothorax, no airleak, hence the patient be placed on waterseal. Patient is relatively asymptomatic except last night he had an episode of vomiting bright red blood had 1 episode after he was having lots of dry heaves. And episodes of nausea. I felt most like the patient had a [place] tear. GI was consulted, in the meantime his hemoglobin remained the same, patient did not dr op much, continues to have episodes of nausea today, but no further episodes of vomiting or coughing up any blood. Chest x-ray is still showing expansion of the right lung, no evidence of acute process. Patient has been on Eliquis for many years for history of DVT and pulmonary embolism Eliquis is presently on hold, however the patient remains on Plavix and is also on Protonix. WBC count is 18.7 hemoglobin 13.9 electrolytes are normal renal profile is normal. Seen today on 04/10/2025, patient continues to do fairly well, he has no air leak, chest x-ray showed hardly any pneumothorax, patient did have a CT of the chest because of sputum cultures showing Rhizo Mucor species in the sputum, i nfectious disease was concerned about possible infected cavities in the lungs which was not seen on the CT of the chest. Patient did receive Amphotericin yesterday, however since the CT of the chest is not showing any cavitary lesions, the Amphotericin will be discontinued as per infectious disease. Clinically the patient is feeling better breathing easier. He continues to havethoravent in place. WBC 16.4 hemoglobin 12.3 electrolytes are normal renal profile is normal The patient is seen today April 11, 2025 in follow-up on the selective care unit. He is currently sitting up in bed. Awake and alert in no acute distress. He denies any worsening shortness of breath, cough or congestion. He is maintaining good O2 saturation in the mid 90s on 3 L/min per nasal cannula. Has been afebrile. Hemodynamically stable. Today's chest x-ray reveals no appreciable pneumothorax on the right. Right sided Thora vent remains in place. Evidence of COPD. Thora vent remains to Pleur-evac. No evidence of a leak. It was capped today. Follow-up chest x-ray in a.m. sputum culture was positive for right so Mucor species. Follow-up sputum culture pending. Glucose 170. He remains on ceftriaxone. He received only 1 dose of amphotericin B. Continued on DuoNeb inhalations, Solu-Medrol. The patient is seen today April 12, 2025 in follow-up on the selective care unit. He is awake and alert in no acute distress. No worsening shortness of breath, cough or congestion. No chest pain. Chest x-ray shows near complete resolution of the right pneumothorax. Thora vent remains in place. This was capped yesterday. White count 14.0. Hemoglobin 13.5. Platelets 192. Sodium 140. Potassium 4.0. Bicarb 25. BUN 42. Creatinine 0.7. Glucose 200. He is continued on DuoNeb inhalations, Solu-Medrol. He remains on ceftriaxone. Sputum culture was positive for Rhizomucor species. Follow-up culture revealing no growth. Objective - Vital Signs Vital signs: Vital Signs Temp 97.8 F 04/12/25 15:40 Pulse 83 04/12/25 15:40 Resp 16 04/12/25 15:40 BP 125/73 04/12/25 15:40 Pulse Ox 90 L 04/12/25 15:40 FiO2 21 04/12/25 08:04 Intake & Output 04/11/25 04/12/25 04/12/25 18:59 06:59 18:59 Intake Total 473 260 480 Balance 473 260 480 Weight 84.3 kg 84.3 kg Intake: IV 15 20 Invasive Line 1 15 20 Oral 458 240 480 Other: Voiding Method Toilet Toilet Toilet # Voids 1 # Bowel Movements 1 - Exam GENERAL EXAM: Alert, pleasant 74-year-old male, on room air oxygen, in no apparent distress. HEAD: Normocephalic. EYES: Normal reaction of pupils, equal size. NOSE: Clear with pink turbinates. THROAT: No erythema or exudates. NECK: No masses, no JVD. CHEST: No chest wall deformity. Right sided Thora vent catheter in place and capped. LUNGS: Equal air entry with few scattered rhonchi. CVS: S1 and S2 normal with no audible murmur, regular rhythm. ABDOMEN: No hepatosplenomegaly, normal bowel sounds, no guarding or rigidity. SPINE: No scoliosis or deformity SKIN: No rashes CENTRAL NERVOUS SYSTEM: No focal deficits, tone is normal in all 4 extremities. EXTREMITIES: There is no peripheral edema. No clubbing, no cyanosis. Peripheral pulses are intact. - Labs CBC & Chem 7: 04/12/25 06:04/12/25 06:25 Labs: Abnormal Lab Results - Last 24 Hours (Table) 04/08/25 04/11/25 04/12/25 Range/Units 02:54 20:19 05:45 WBC (4.50-10.00) 10*3/uL MPV (9.5-12.2) fL Immature Gran # (0.00-0.04) 10*3/uL Neutrophils # (1.80-7.70) 10*3/uL Lymphocytes # (0.90-5.00) 10*3/uL Eosinophils # (0.04-0.35) 10*3/uL Chloride (98-107) mmol/L BUN (9-20) mg/dL Glucose (74-99) mg/dL POC Glucose (mg/dL) 147 H 190 H (70-110) mg/dL Albumin (PEP) 2.83 L (3.80-4.90) g/dL Gamma Globulins 0.57 L (0.70-1.50) g/dL 04/12/25 04/12/25 04/12/25 Range/Units :25 06:25 11:27 WBC 14.05 H (4.50-10.00) 10*3/uL MPV 8.8 L (9.5-12.2) fL Immature Gran # 0.14 H (0.00-0.04) 10*3/uL Neutrophils # 13.28 H (1.80-7.70) 10*3/uL Lymphocytes # 0.32 L (0.90-5.00) 10*3/uL Eosinophils # 0.00 L (0.04-0.35) 10*3/uL Chloride 108 H (98-107) mmol/L BUN 42 H (9-20) mg/dL Glucose 200 H (74-99) mg/dL POC Glucose (mg/dL) 198 H (70-110) mg/dL Albumin (PEP) (3.80-4.90) g/dL Gamma Globulins (0.70-1.50) g/dL 04/12/25 Range/Units 16:30 WBC (4.50-10.00) 10*3/uL MPV (9.5-12.2) fL Immature Gran # (0.00-0.04) 10*3/uL Neutrophils # (1.80-7.70) 10*3/uL Lymphocytes # (0.90-5.00) 10*3/uL Eosinophils # (0.04-0.35) 10*3/uL Chloride (98-107) mmol/L BUN (9-20) mg/dL Glucose (74-99) mg/dL POC Glucose (mg/dL) 227 H (70-110) mg/dL Albumin (PEP) (3.80-4.90) g/dL Gamma Globulins (0.70-1.50) g/dL Microbiology - Last 24 Hours (Table) 04/10/25 16:15 Gram Stain - Preliminary Sputum Sputum Culture - Preliminary Assessment and Plan Assessment: Acute COPD exacerbation Acute right sided pneumothorax requiring Thora vent placement on 04/08/2025. Capped [id number] and removed today 04/12/2025 Sputum culture positive for Rhizomucor species Acute hypoxic respiratory failure, secondary to above Recent urinary tract infection, urine positive for Serratia marcescens 03/17/2025, treated with course of ciprofloxacin History of bullous emphysema and previous bullectomy History of pneumothoraces History of previous TURP and frequent urinary tract infections History of E. coli sputum positive in August 2024 Remote history of pulmonary embolism, chronically anticoagulated on Eliquis Hypertension History of hyperlipidemia History of coronary disease with previous PCI/stents History of CVA/TIA Type 2 diabetes mellitus GERD History of hiatal hernia Chronic back pain Anxiety/PTSD History of migraines Plan: The patient is seen and evaluated Chest x-ray, labs and medications reviewed Microbiology reviewed Currently on ceftriaxone Follow-up sputum culture showing no growth Thora vent removed this morning Follow-up chest x-ray reveals no pneumothorax Continued on bronchodilators Discontinue Solu-Medrol Initiated prednisone taper Antibiotics per ID service Stable and on room air oxygen Probable discharge in a.m. We will continue to follow I have personally seen and examined the patient, performed the documentation and the assessment and plan as written. Number of minutes spent on the visit: 10 Dictation was produced using [employer] dictation software. Please excuse any grammatical, word or spelling errors.
--- NOTE | 2025-04-12 16:59 | P.PN ---
Subjective Progress Note Date: 04/12/25 This is a pleasant 74-year-old male who was recently admitted with COPD exacerbation as well as bilateral pneumonia being closely monitored with infectious disease and pulmonary following. Preliminary sputum culture showing fungal isolation and will await finalized cultures. Discussed with micro lab about running sensitivities to ensure appropriate antibiotics. Patient reported to feeling much better and would like to go home and had been cleared by pulmonary and undergoing home oxygen testing with walking and started feeling short of breath like he had felt when he had a previous collapsed lung. Per nursing staff a team was called as they were absent lung sounds on the right with concerns of respiratory distress. Stat chest x-ray was performed revealing a right pneumothorax and patient was brought to the ICU per pulmonary for chest tube insertion and closer monitoring. Will follow-up with repeat chest x-ray in a.m. 04/09/2025 Patient is seen in follow-up status post right pneumothorax with Thora vent placement by pulmonary and remains in the ICU although is a downgrade to 3 S. once a bed becomes available. Patient reported per pulmonary will continue with for event for another 24 to 48 hours with serial x-rays. This morning's chest x-ray reveals right thoracotomy tube present without pneumothorax visualized. Infectious disease also following and patient is maintained on antibiotics in the form of cefepime and was maintained on Levaquin. Preliminary sputum culture showing a fungal isolate and discussed with micro lab regarding running this sensitivity which remains pending at this time. Patient continues on 3 L via nasal cannula and encouraged incentive spirometer use and is maintained on continued breathing treatments. Encouraged increased activity as tolerated. Patient will continue on IV steroids and ukibrf-ovb-swaul DuoNeb treatments. 04/10/[address]. Patient's cultures come back showing RhizoMucor species and patient was started on IV Amphotencin. [place] this may have been a contaminent species and repeat sputum was ordered by ID. Currently on IV ceftriaxone. White blood cell count 16.44. Chest xray shows right thoracotomy device without appreciable pneumothorax. COPD. 04/11/2025 Patient is evaluated in follow-up in the medical floor. His repeat sputum culture has been collected and currently pending at this time. He is currently off the IV antifungal. Chest x-ray today reveals right thoracotomy device without appreciable pneumothorax. Findings of COPD. His thoravent was capped today. \ 04/12/2025 Patient is eval today in follow-up in the medical floor. Repeat sputum culture is currently pending but negative so far. He continues on IV ceftriaxone. Chest x-ray this morning reveals the thoracotomy device without any sizable pneumothorax. He is currently saturating well on room air. Plan is for the thoravent to be discontinued today. Review of systems: Constitutional: No reports of fatigue, fever, or chills Cardiovascular: No reports of chest pain or palpitations Respiratory: reports of shortness of breath although improved status post thoracotomy, occasional cough GI: No reports of nausea, no reports of vomiting, occasional loose stools : No reports of dysuria or retention Neurovascular: No reports of generalized weakness All medications have been reviewed PHYSICAL EXAMINATION: GENERAL: The patient is alert and oriented x4, Well developed, thin built, elderly appearing HEENT: Pupils are round and equally reacting to light. EOMI. no scleral icterus. No conjunctival pallor. Normocephalic, atraumatic. No pharyngeal erythema. No thyromegaly. CARDIOVASCULAR: S1 and S2 muffled PULMONARY: diminished breath sounds bilaterally with faint expiratory wheezing with scattered rhonchi noted. Improved aeration on the right ABDOMEN: soft. Nontender on exam. Thin. Non-distended, normoactive bowel sounds. No palpable organomegaly. MUSCULOSKELETAL: No joint swelling or deformity. EXTREMITIES: No cyanosis, clubbing, or pedal edema. NEUROLOGICAL: Gross neurological examination did not reveal any focal deficits. SKIN: No rashes. Assessment: Chronic obstructive pulmonary disease, acute exacerbation with acute bilateral pneumonia with possibly gram-negative, sputum cultures pending, fungal isolate noted on sputum culture and pending for sensitivities per micro lab Spontaneous right pneumothorax, 04/08/2025 status post Thora vent placement Acute hypoxic respiratory failure secondary to above Leukocytosis, multifactorial, likely secondary to acute bilateral pneumonia with a component of steroid effect Diabetes mellitus, type II, uncontrolled with hyperglycemia, likely steroid effect as well History of pulmonary embolism history of coronary artery disease with previous stenting History of recent urinary tract infection with Serratia in February 2025, had completed Cipro on discharge History of bullous emphysema and previous bullectomy History of CVA/TIA History of anxiety with PTSD History of chronic back pain GI prophylaxis DVT prophylaxis Full code Plan: Recommend to continue with current medications and management with pulmonary and infectious disease following. Thoravent to be removed today. Recommend incentive spirometer use/flutter device with respiratory following and will continue on breathing treatments Infectious disease following as well and sputum cultures are preliminary showing a fungal isolation and medications being adjusted. Patient is continued on ceftriaxone. Micro lab contacted and running sensitivities on this fungal isolate which is pending at this time. Patient as been started on IV Amphotericin which has since been discontinued and ID awaiting repeat sputum culture. Will follow-up on repeat labs and monitor electrolytes closely. Replace electrolytes per protocol Continue monitoring Accu-Cheks AC and at bedtime and will adjust insulins accordingly Repeat chest x-ray ordered for a.m. Possible DC home in the next 24 hours awaiting final sputum culture results. Encouraged increase activity as tolerated with frequent walking The impression and plan of care has been dictated by Ching Robles, Nurse Practitioner as directed. Dr. Mark MD I have performed a history and examination and MDM of this patient, discussed the same with the dictator, and agree with the dictator's assessment and plan as written ,documented as a scribe. Based on total visit time, I have performed more than 50% of the visit. Objective - Vital Signs Vital signs: Vital Signs Temp 98.1 F 04/12/25 08:00 Pulse 71 04/12/25 08:00 Resp 18 04/12/25 08:00 BP 138/80 04/12/25 08:00 Pulse Ox 96 04/12/25 08:04 FiO2 21 04/12/25 08:04 Intake & Output 04/11/25 04/12/25 04/12/25 18:59 06:59 18:59 Intake Total 473 260 120 Balance 473 260 120 Weight 84.3 kg Intake: IV 15 20 Invasive Line 1 15 20 Oral 458 240 120 Other: Voiding Method Toilet Toilet # Voids 1 # Bowel Movements 1 - Labs CBC & Chem 7: 04/12/25 06:25 04/12/25 06:25 Labs: Abnormal Lab Results - Last 24 Hours (Table) 04/11/25 04/11/25 04/11/25 Range/Units 11:48 16:18 20:19 WBC (4.50-10.00) 10*3/uL MPV (9.5-12.2) fL Immature Gran # (0.00-0.04) 10*3/uL Neutrophils # (1.80-7.70) 10*3/uL Lymphocytes # (0.90-5.00) 10*3/uL Eosinophils # (0.04-0.35) 10*3/uL Chloride (98-107) mmol/L BUN (9-20) mg/dL Glucose (74-99) mg/dL POC Glucose (mg/dL) 170 H 212 H 147 H (70-110) mg/dL 04/12/25 04/12/25 04/12/25 Range/Units 05:45 06:25 06:25 WBC 14.05 H (4.50-10.00) 10*3/uL MPV 8.8 L (9.5-12.2) fL Immature Gran # 0.14 H (0.00-0.04) 10*3/uL Neutrophils # 13.28 H (1.80-7.70) 10*3/uL Lymphocytes # 0.32 L (0.90-5.00) 10*3/uL Eosinophils # 0.00 L (0.04-0.35) 10*3/uL Chloride 108 H (98-107) mmol/L BUN 42 H (9-20) mg/dL Glucose 200 H (74-99) mg/dL POC Glucose (mg/dL) 190 H (70-110) mg/dL Microbiology - Last 24 Hours (Table) 04/10/25 16:15 Gram Stain - Preliminary Sputum Assessment and Plan Time with Patient: Less than 30
[2025-04-12 20:27] LABS: Glucose,Whole Blood 192 mg/dL (70-110)
[2025-04-13 05:15] VITALS: TEMP 97.7
[2025-04-13 05:46] LABS: Glucose,Whole Blood 150 mg/dL (70-110)
[2025-04-13] MEDS: predniSONE 20 MG TAB PO SCH (08:23)
[2025-04-13 08:27] VITALS: RESP 16
[2025-04-13 11:44] VITALS: BP 122/79; PULSE 68
[2025-04-13 11:54] LABS: Glucose,Whole Blood 170 mg/dL (70-110)
--- NOTE | 2025-04-13 13:58 | P.PN ---
Subjective Progress Note Date: 04/13/25 Patient is a 74-year-old male with past medical history significant for severe COPD/emphysema, previous pneumothoraces, bullectomy, PE, hypertension, hyperlipidemia, CAD, CVA/TIA, diabetes mellitus, GERD, hiatal hernia, frequent urinary tract infections with previous TURP, previous ME, PTSD, migraines. Does follow in the pulmonary office with Dr. Rascon. Of note, patient had a recent hospitalization in Feb, 2025 for urinary tract infection, as well as, possible left lower lung pneumonia. Urine positive Serratia marcescens. Ended up being discharged on 03/17/25 with a course of ciprofloxacin. Reportedly, did complete his antibiotics. At the last couple days developed increased cough with small hemoptysis mixed with sputum. Patient does take Eliquis on outpatient basis. Ended up going to his primary care provider, Dr. Giordano, for evaluation yesterday. She recommended that he come to the emergency department. Workup in the emergency department including chest x-ray showing bilateral lower lobe infiltrates, possible worse from comparison. CBC: WBC count 12.54, hemoglobin 14.8, platelets 224. CMP: Sodium 139, potassium 4.4, chloride 110, serum bicarb 24, BUN 16, creatinine 0.77, glucose 147. Lactic 1.1. LFTs not elevated. Troponin less than 0.012. NT proBNP low. EKG: Sinus rhythm, rate 68 bpm, no acute ischemic changes noted. UA unremarkable for infection. Patient currently being evaluated in the emergency department. Sitting comfortably at the edge of the bed. On room air. No acute respiratory distress. The last several days has developed increased weakness, dizziness, and headaches. Endorsing increased work of breathing with cough that is productive with occasional hemoptysis mixed with black sputum. Also, reporting associated low-grade fevers. Denies recent known sick contacts. Denies localized chest pain, heart palpitations, syncopal events, lower extremity edema, orthopnea. Denies dysuria, hematuria, flank pain. Afebrile. Current vital stable. The patient is seen today April 07, 2025 in follow-up on the regular medical floor. He is currently sitting up at the bedside. Awake and alert in no acute distress. He is currently maintaining O2 saturations in the 90s on room air oxygen. He is afebrile. Hemodynamically stable. Blood culture revealed no growth. Sputum culture reveals no growth. White count 12.3. Hemoglobin 13.0. Platelets 183. Sodium 144. Potassium 4.4. Bicarb 21. BUN 17. Creatinine 0.7. Glucose 162. He remains on DuoNeb inhalations, Solu-Medrol. He remains on Levaquin. Anticoagulated with Eliquis. The patient is seen today April 08, 2025 in follow-up on the regular medical floor. He is awake and alert in no acute distress. Sitting up in bed. Denies any worsening shortness of breath, cough or congestion. A bit better today compared to yesterday but not back to his baseline. He is maintaining good O2 saturations in the 90s on 2 L/min per nasal cannula. He is afebrile. Hemodynamically stable. Glucose 165. Total protein 5.0. IgG 615. IgE 134. IgM 53.5. IgA 243. HIV screen negative. He remains on DuoNeb inhalations, Solu-Medrol. Continued on Levaquin. Anticoagulated with Eliquis. Patient was seen today on 04/09/2025, patient developed spontaneous right-sided pneumothorax yesterday, moved up to the ICU and a right-sided Thora vent 13 Chinese was placed and complete reexpansion of the right lung was noted. Patient was on wall suction overnight, today the lung remains fully expanded, no pneumothorax, no airleak, hence the patient be placed on waterseal. Patient is relatively asymptomatic except last night he had an episode of vomiting bright red blood had 1 episode after he was having lots of dry heaves. And episodes of nausea. I felt most like the patient had a Mary-[place] tear. GI was consulted, in the meantime his hemoglobin remained the same, patient did not dr op much, continues to have episodes of nausea today, but no further episodes of vomiting or coughing up any blood. Chest x-ray is still showing expansion of the right lung, no evidence of acute process. Patient has been on Eliquis for many years for history of DVT and pulmonary embolism Eliquis is presently on hold, however the patient remains on Plavix and is also on Protonix. WBC count is 18.7 hemoglobin 13.9 electrolytes are normal renal profile is normal. Seen today on 04/10/2025, patient continues to do fairly well, he has no air leak, chest x-ray showed hardly any pneumothorax, patient did have a CT of the chest because of sputum cultures showing Rhizo Mucor species in the sputum, i nfectious disease was concerned about possible infected cavities in the lungs which was not seen on the CT of the chest. Patient did receive Amphotericin yesterday, however since the CT of the chest is not showing any cavitary lesions, the Amphotericin will be discontinued as per infectious disease. Clinically the patient is feeling better breathing easier. He continues to havethoravent in place. WBC 16.4 hemoglobin 12.3 electrolytes are normal renal profile is normal The patient is seen today April 11, 2025 in follow-up on the selective care unit. He is currently sitting up in bed. Awake and alert in no acute distress. He denies any worsening shortness of breath, cough or congestion. He is maintaining good O2 saturation in the mid 90s on 3 L/min per nasal cannula. Has been afebrile. Hemodynamically stable. Today's chest x-ray reveals no appreciable pneumothorax on the right. Right sided Thora vent remains in place. Evidence of COPD. Thora vent remains to Pleur-evac. No evidence of a leak. It was capped today. Follow-up chest x-ray in a.m. sputum culture was positive for right so Mucor species. Follow-up sputum culture pending. Glucose 170. He remains on ceftriaxone. He received only 1 dose of amphotericin B. Continued on DuoNeb inhalations, Solu-Medrol. The patient is seen today April 12, 2025 in follow-up on the selective care unit. He is awake and alert in no acute distress. No worsening shortness of breath, cough or congestion. No chest pain. Chest x-ray shows near complete resolution of the right pneumothorax. Thora vent remains in place. This was capped yesterday. White count 14.0. Hemoglobin 13.5. Platelets 192. Sodium 140. Potassium 4.0. Bicarb 25. BUN 42. Creatinine 0.7. Glucose 200. He is continued on DuoNeb inhalations, Solu-Medrol. He remains on ceftriaxone. Sputum culture was positive for Rhizomucor species. Follow-up culture revealing no growth. The patient is seen today April 13, 2025 in follow-up on the selective care unit. He is sitting up in bed. Awake and alert in no acute distress. Denies any worsening shortness of breath, cough or congestion. Follow-up chest x-ray revealed no evidence of pneumothorax. He is continued on DuoNeb inhalations, prednisone taper. Remains on antibiotics in the form of ceftriaxone. Awaiting follow-up sputum culture results. Glucose 170. Objective - Vital Signs Vital signs: Vital Signs Temp 97.7 F 04/13/25 08:25 Pulse 68 04/13/25 11:43 Resp 16 04/13/25 11:43 BP 122/79 04/13/25 11:43 Pulse Ox 94 L 04/13/25 11:43 FiO2 21 04/12/25 08:04 Intake & Output 04/12/25 04/13/25 04/13/25 18:59 06:59 18:59 Intake Total 720 60 250 Balance 720 60 250 Weight 84.3 kg 84.4 kg Intake: IV 20 10 Invasive Line 4 20 10 Oral 720 40 240 Other: Voiding Method Toilet Toilet Toilet # Voids 1 2 # Bowel Movements 1 - Exam GENERAL EXAM: Alert, pleasant 74-year-old male, sitting up in bed, on room air oxygen, in no apparent distress. HEAD: Normocephalic. EYES: Normal reaction of pupils, equal size. NOSE: Clear with pink turbinates. THROAT: No erythema or exudates. NECK: No masses, no JVD. CHEST: No chest wall deformity. Right sided Thora vent catheter removed yesterday. LUNGS: Equal air entry with few scattered rhonchi. CVS: S1 and S2 normal with no audible murmur, regular rhythm. ABDOMEN: No hepatosplenomegaly, normal bowel sounds, no guarding or rigidity. SPINE: No scoliosis or deformity SKIN: No rashes CENTRAL NERVOUS SYSTEM: No focal deficits, tone is normal in all 4 extremities. EXTREMITIES: There is no peripheral edema. No clubbing, no cyanosis. Peripheral pulses are intact. - Labs CBC & Chem 7: 04/12/25 06:25 04/12/25 06:25 Labs: Abnormal Lab Results - Last 24 Hours (Table) 04/12/25 04/12/25 04/13/25 Range/Units 16:30 20:25 05:45 POC Glucose (mg/dL) 227 H 192 H 150 H (70-110) mg/dL 04/13/25 Range/Units 11:52 POC Glucose (mg/dL) 170 H (70-110) mg/dL Microbiology - Last 24 Hours (Table) 04/10/25 16:15 Gram Stain - Preliminary Sputum Sputum Culture - Preliminary Assessment and Plan Assessment: Acute COPD exacerbation Acute right sided pneumothorax requiring Thora vent placement on 04/08/2025. Capped and removed today 04/12/2025 Sputum culture positive for Rhizomucor species, follow-up culture pending, currently on ceftriaxone Acute hypoxic respiratory failure, secondary to above Recent urinary tract infection, urine positive for Serratia marcescens 03/17/2025, treated with course of ciprofloxacin History of bullous emphysema and previous bullectomy History of pneumothoraces History of previous TURP and frequent urinary tract infections History of E. coli sputum positive in August 2024 Remote history of pulmonary embolism, chronically anticoagulated on Eliquis Hypertension History of hyperlipidemia History of coronary disease with previous PCI/stents History of CVA/TIA Type 2 diabetes mellitus GERD History of hiatal hernia Chronic back pain Anxiety/PTSD History of migraines Plan: The patient is seen and evaluated Chest x-ray, labs and medications reviewed Microbiology reviewed Currently on ceftriaxone Follow-up sputum culture showing no growth Continued on bronchodilators Continue prednisone taper Stable and on room air oxygen Cleared for discharge from the pulmonary stand Follow-up in our office in 1 week I have personally seen and examined the patient, performed the documentation and the assessment and plan as written. Number of minutes spent on the visit: 10 Dictation was produced using [employer] dictation software. Please excuse any grammatical, word or spelling errors.
--- NOTE | 2025-04-13 16:44 | P.PN ---
Subjective Progress Note Date: 04/12/25 Principal diagnosis: Reason for follow-up is pneumonia Patient is a 74-year-old male with a past medical history significant for COPD CVA TIA diabetes mellitus reflux [place] prostate disorder presents to the hospital with shortness of breath cough has been diagnosed with pneumonia prompted this consultation. On today's evaluation that is 04/12/2025, patient has been afebrile, patient is breathing comfortably and is currently on room air, patient denies having any chest pain and cough has decreased intensity mostly dry in nature, patient denies nausea vomiting or diarrhea and no abdominal pain. Patient did have white count 14.05, creatinine 0.7 repeat sputum currently pending . Objective - Vital Signs Vital signs: Vital Signs Temp 98.1 F 04/12/25 08:00 Pulse 71 04/12/25 08:00 Resp 18 04/12/25 08:00 BP 138/80 04/12/25 08:00 Pulse Ox 96 04/12/25 08:04 FiO2 21 04/12/25 08:04 Intake & Output 04/11/25 04/12/25 04/12/25 18:59 06:59 18:59 Intake Total 473 260 120 Balance 473 260 120 Weight 84.3 kg Intake: IV 15 20 Invasive Line 1 15 20 Oral 458 240 120 Other: Voiding Method Toilet Toilet # Voids 1 # Bowel Movements 1 - Exam GENERAL DESCRIPTION: An elderly male lying in bed in no distress. HEENT: No sinus tenderness was noticed and normal examination of the nasal cav ity RESPIRATORY SYSTEM: Unlabored breathing , coarse breath sounds bilaterally HEART: S1 S2 regular rate and rhythm , ABDOMEN: Soft , no tenderness EXTREMITIES: No edema feet - Labs CBC & Chem 7: 04/12/25 06:25 04/12/25 06:25 Labs: Abnormal Lab Results - Last 24 Hours (Table) 04/08/25 04/11/25 04/11/25 Range/Units 02:54 11:48 16:18 WBC (4.50-10.00) 10*3/uL MPV (9.5-12.2) fL Immature Gran # (0.00-0.04) 10*3/uL Neutrophils # (1.80-7.70) 10*3/uL Lymphocytes # (0.90-5.00) 10*3/uL Eosinophils # (0.04-0.35) 10*3/uL Chloride (98-107) mmol/L BUN (9-20) mg/dL Glucose (74-99) mg/dL POC Glucose (mg/dL) 170 H 212 H (70-110) mg/dL Albumin (PEP) 2.83 L (3.80-4.90) g/dL Gamma Globulins 0.57 L (0.70-1.50) g/dL 04/11/25 04/12/25 04/12/25 Range/Units 20:19 05:45 06:25 WBC 14.05 H (4.50-10.00) 10*3/uL MPV 8.8 L (9.5-12.2) fL Immature Gran # 0.14 H (0.00-0.04) 10*3/uL Neutrophils # 13.28 H (1.80-7.70) 10*3/uL Lymphocytes # 0.32 L (0.90-5.00) 10*3/uL Eosinophils # 0.00 L (0.04-0.35) 10*3/uL Chloride (98-107) mmol/L BUN (9-20) mg/dL Glucose (74-99) mg/dL POC Glucose (mg/dL) 147 H 190 H (70-110) mg/dL Albumin (PEP) (3.80-4.90) g/dL Gamma Globulins (0.70-1.50) g/dL 04/12/25 Range/Units 06:25 WBC (4.50-10.00) 10*3/uL MPV (9.5-12.2) fL Immature Gran # (0.00-0.04) 10*3/uL Neutrophils # (1.80-7.70) 10*3/uL Lymphocytes # (0.90-5.00) 10*3/uL Eosinophils # (0.04-0.35) 10*3/uL Chloride 108 H (98-107) mmol/L BUN 42 H (9-20) mg/dL Glucose 200 H (74-99) mg/dL POC Glucose (mg/dL) (70-110) mg/dL Albumin (PEP) (3.80-4.90) g/dL Gamma Globulins (0.70-1.50) g/dL Microbiology - Last 24 Hours (Table) 06/14/25 16:15 Gram Stain - Preliminary Sputum Assessment and Plan (1) Pneumonia Status: Acute Code(s): J18.9 - PNEUMONIA, UNSPECIFIED ORGANISM SNOMED Code(s): 096546066 (2) Mucormycosis Status: Acute Code(s): B46.5 - MUCORMYCOSIS, UNSPECIFIED SNOMED Code(s): 66175435 Plan: 1patient presented to hospital with weakness wobbly gait did have a cough bringing up purulent sputum with some blood mixed did have elevated white count with bibasilar infiltrate on the chest x-ray highly suspicious for pneumonia in this patient did have underlying history of COPD. 2blood cultures are pending and sputum culture currently growing fungus which has been defined as Rhizomucar species 3with the growth of Rhizomucar species in the sputum which is the cause of severe fungal pneumonia patient was empirically started on liposomal amphotericin B while waiting for the CT of the chest to be completed. CT reported by radiologist as no consolidation/pneumonia and I have confirmed it with the head refrigerating engineer who did not see any evidence of any infected bullae or cavities more likely indicating positive sputum is possible contamination as we do not have any evidence of pneumonia on the CT of the chest that was done with contrast, AmBisome was discontinued on 04/10/2025 4patient did have clinical improvement remains to be afebrile and white count is trending down to continue with Rocephin while waiting for repeat sputum culture to be finalized Dictation was produced using [employer] dictation software. please excuse any grammatical, word or spelling errors. Time with Patient: Less than 30
--- NOTE | 2025-04-13 16:44 | P.PN ---
Subjective Progress Note Date: 04/13/25 Principal diagnosis: Reason for follow-up is pneumonia Patient is a 74-year-old male with a past medical history significant for COPD CVA TIA diabetes mellitus reflux [place] prostate disorder presents to the hospital with shortness of breath cough has been diagnosed with pneumonia prompted this consultation. On today's evaluation that is 04/13/2025, Patient is afebrile this morning patient denies having any chest pain shortness of breath or cough, the patient is currently on room air, patient denies any abdominal pain no diarrhea no nausea no vomiting, patient is feeling better wants to go home. No new lab has been obtained today Objective - Vital Signs Vital signs: Vital Signs Temp 97.7 F 04/13/25 08:25 Pulse 68 04/13/25 11:43 Resp 16 04/13/25 11:43 BP 122/79 04/13/25 11:43 Pulse Ox 94 L 04/13/25 11:43 FiO2 21 04/12/25 08:04 Intake & Output 04/12/25 04/13/25 04/13/25 18:59 06:59 18:59 Intake Total 720 60 250 Balance 720 60 250 Weight 84.3 kg 84.4 kg Intake: IV 20 10 Invasive Line 4 20 10 Oral 720 40 240 Other: Voiding Method Toilet Toilet Toilet # Voids 1 2 # Bowel Movements 1 - Exam GENERAL DESCRIPTION: An elderly male lying in bed in no distress. HEENT: No sinus tenderness was noticed and normal examination of the nasal cavity RESPIRATORY SYSTEM: Unlabored breathing , coarse breath sounds bilaterally HEART: S1 S2 regular rate and rhythm , ABDOMEN: Soft , no tenderness EXTREMITIES: No edema feet - Labs CBC & Chem 7: 04/12/25 06:25 04/12/25 06:25 Labs: Abnormal Lab Results - Last 24 Hours (Table) 04/12/25 04/12/25 04/13/25 Range/Units 16:30 20:25 05:45 POC Glucose (mg/dL) 227 H 192 H 150 H (70-110) mg/dL 04/13/25 Range/Units 11:52 POC Glucose (mg/dL) 170 H (70-110) mg/dL Microbiology - Last 24 Hours (Table) 04/10/25 16:15 Gram Stain - Preliminary Sputum Sputum Culture - Preliminary Assessment and Plan (1) Pneumonia Status: Acute Code(s): J18.9 - PNEUMONIA, UNSPECIFIED ORGANISM SNOMED Code(s): 480333518 Plan: 1patient presented to hospital with weakness wobbly gait did have a cough bringing up purulent sputum with some blood mixed did have elevated white count with bibasilar infiltrate on the chest x-ray highly suspicious for pneumonia in this patient did have underlying history of COPD. 2blood cultures are pending and sputum culture currently growing fungus which has been defined as Rhizomucar species 3with the growth of Rhizomucar species in the sputum which is the cause of severe fungal pneumonia patient was empirically started on liposomal amphotericin B while waiting for the CT of the chest to be completed. CT reported by radiologist as no consolidation/pneumonia and I have confirmed it with the animal cytologist who did not see any evidence of any infected bullae or cavities more likely indicating positive sputum is possible contamination as we do not have any evidence of pneumonia on the CT of the chest that was done with contrast, AmBisome was discontinued on 04/10/2025 4patient did have clinical improvement remains to be afebrile and white count is trending down as of yesterday no CBC was done today in view of clinical improvement Rocephin to finish therapy with oral Ceftin and close outpatient follow-up Dictation was produced using [employer] dictation software. please excuse any grammatical, word or spelling errors. Time with Patient: Less than 30
--- NOTE | 2025-04-18 22:53 | P.DS ---
Providers Date of admission: 04/05/25 20:49 Attending physician: Leandra Miramontes Consults: 04/05/25 20:46 Consult Physician Routine Consulting Provider: Clark Gastelum Consult Reason/Comments: known Do you want consulting provider notified?: Yes 04/07/25 10:28 Consult Physician Routine Consulting Provider: Toni Hoffman Consult Reason/Comments: Pneumonia Do you want consulting provider notified?: Yes 04/09/25 02:38 Consult Physician Routine Consulting Provider: Whitney Velarde Consult Reason/Comments: Hematemesis Do you want consulting provider notified?: Yes Primary care physician: Dyana Giuliana [facility] Hospital Course: Final Diagnosis Chronic obstructive pulmonary disease, acute exacerbation with acute bilateral pneumonia with possibly gram-negative Spontaneous right pneumothorax, 04/08/2025 status post Thora vent placement and removal. Acute hypoxic respiratory failure secondary to above, resolved. Leukocytosis, multifactorial, likely secondary to acute bilateral pneumonia with a component of steroid effect Diabetes mellitus, type II, uncontrolled with hyperglycemia, likely steroid effect as well History of pulmonary embolism history of coronary artery disease with previous stenting History of recent urinary tract infection with Serratia in February 2025, had completed Cipro on discharge History of bullous emphysema and previous bullectomy History of CVA/TIA History of anxiety with PTSD History of chronic back pain Discharge Disposition Patient stable for discharge home. Pneumothorax has resolved and repeat sputum culture no longer reveal fungal species. [place] to be a contaminent species. He has been cleared for DC home to complete 5 day course of oral ceftin and close follow up with pulmonology and ID. Patient has been continued on flomax. He will continue a long steroid taper. Repeat blood work in 2 to 3 days. total time taken in discharge planning greater than 35 minutes. Hospital Course This is a pleasant 74-year-old male who was recently admitted with COPD exacerbation as well as bilateral pneumonia being closely monitored with infectious disease and pulmonary following. Preliminary sputum culture showing fungal isolation and will await finalized cultures. Discussed with micro lab about running sensitivities to ensure appropriate antibiotics. Patient reported to feeling much better and would like to go home and had been cleared by pulmonary and undergoing home oxygen testing with walking and started feeling short of breath like he had felt when he had a previous collapsed lung. Per nursing staff a team was called as they were absent lung sounds on the right w ith concerns of respiratory distress. Stat chest x-ray was performed revealing a right pneumothorax and patient was brought to the ICU per pulmonary for chest tube insertion and closer monitoring. Patient's cultures come back showing RhizoMucor species and patient was started on IV Amphotencin. [place] this may have been a contaminent species and repeat sputum was ordered by ID. Currently on IV ceftriaxone. White blood cell count 16.44. Chest xray shows right thoracotomy device without appreciable pneumothorax. COPD. His repeat sputum culture came back negative and ID recommending to continue 5 days of oral ceftin on discharge as patient had clinical improvement. Patient had thoravent removed without incident and his repeat chest xray continues to show no pneumothorax. He has been up ambulating without difficulty. Please see medication reconciliation for a list of current medications. Thank you for allowing us to participate in the care of this patient. The impression and plan of care has been dictated by Ching Robles, Nurse Practitioner as directed. Dr. Mark MD I have performed a history and physical examination and medical decision making of this patient, discussed the same with the dictator, and agree with the dictators assessment and plan as written, documented as a scribe. Based on total visit time, I have performed more than 50% of this visit. Patient Condition at Discharge: Fair Plan - Discharge Summary New Discharge Prescriptions: New Ipratropium-Albuterol Nebulize [Duoneb 0.5 mg-3 mg/3 ml Soln] 3 ml INHALATION RT-Q4H PRN each PRN Reason: shortness of breath predniSONE See Taper PO DIRECTED #30 tab cefuroxime axetiL [Ceftin] 500 mg PO BID 5 Days #10 tab Ipratropium-Albuterol Nebulize [Duoneb 0.5 mg-3 mg/3 ml Soln] 3 ml INHALATION RT-QID #100 each Tamsulosin [Flomax] 0.4 mg PO PC-BRKFST #30 cap Continue Gabapentin 1,200 mg PO HS Fluticasone/Umeclidin/Vilanter [Trelegy Ellipta 100-62.5-25] 1 puff INHALATION RT-DAILY Apixaban [Eliquis] 5 mg PO BID Ezetimibe [Zetia] 10 mg PO DAILY traZODone HCL [Desyrel] 200 mg PO HS Isosorbide Mononitrate ER [Imdur] 30 mg PO DAILY Albuterol Inhaler [Ventolin Hfa Inhaler] 2 puff INHALATION RT-Q4H PRN PRN Reason: Shortness Of Breath Triamcinolone 0.1% Cream [Kenalog 0.1% Cream] 1 applic TOPICAL BID PRN PRN Reason: Rash SUMAtriptan succinate 100 mg PO DAILY PRN PRN Reason: Migraine Headache Rosuvastatin [Crestor] 10 mg PO BENNETT Lansoprazole 30 mg PO DAILY Budesonide/Formoterol Fumarate [Breyna 160-4.5 Mcg Inhaler] 2 puff INHALATION RT-BID Vonoprazan Fumarate [Voquezna] 10 mg PO HS Gabapentin 600 mg PO DAILY Pantoprazole Sodium [Protonix] 40 mg PO BID Clopidogrel Bisulfate [Clopidogrel] 75 mg PO DAILY metFORMIN HCL 1,000 mg PO BID Empagliflozin [Jardiance] 10 mg PO DAILY HYDROcodone/APAP 7.5-325MG [[place] 7.5-325] 1 tab PO TID Famotidine 40 mg PO HS Metoprolol Tartrate [Lopressor] 12.5 mg PO DAILY Losartan [Cozaar] 50 mg PO HS Hydrocortisone [Cortef] 30 mg PO DAILY Discharge Medication List Gabapentin 1,200 mg PO HS 04/09/16 [History] Fluticasone/Umeclidin/Vilanter [Trelegy Ellipta 100-62.5-25] 1 puff INHALATION RT-DAILY 10/25/21 [History] Gabapentin 600 mg PO DAILY 09/17/22 [History] Pantoprazole Sodium [Protonix] 40 mg PO BID 09/17/22 [History] Apixaban [Eliquis] 5 mg PO BID 05/17/23 [History] Clopidogrel Bisulfate [Clopidogrel] 75 mg PO DAILY 05/17/23 [History] Empagliflozin [Jardiance] 10 mg PO DAILY 05/17/23 [History] Ezetimibe [Zetia] 10 mg PO DAILY 05/17/23 [History] metFORMIN HCL 1,000 mg PO BID 05/17/23 [History] traZODone HCL [Desyrel] 200 mg PO HS 05/17/23 [History] Albuterol Inhaler [Ventolin Hfa Inhaler] 2 puff INHALATION RT-Q4H PRN 01/23/24 [History] Famotidine 40 mg PO HS 01/23/24 [History] HYDROcodone/APAP 7.5-325MG [[place] 7.5-325] 1 tab PO TID 01/23/24 [History] Isosorbide Mononitrate ER [Imdur] 30 mg PO DAILY 01/23/24 [History] Hydrocortisone [Cortef] 30 mg PO DAILY 03/17/25 [History] Lansoprazole 30 mg PO DAILY 03/17/25 [History] Losartan [Cozaar] 50 mg PO HS 03/17/25 [History] Metoprolol Tartrate [Lopressor] 12.5 mg PO DAILY 03/17/25 [History] Rosuvastatin [Crestor] 10 mg PO BENNETT 03/17/25 [History] SUMAtriptan succinate 100 mg PO DAILY PRN 03/17/25 [History] Triamcinolone 0.1% Cream [Kenalog 0.1% Cream] 1 applic TOPICAL BID PRN 03/17/25 [History] Budesonide/Formoterol Fumarate [Breyna 160-4.5 Mcg Inhaler] 2 puff INHALATION RT-BID 04/06/25 [History] Vonoprazan Fumarate [Voquezna] 10 mg PO HS 04/06/25 [History] Ipratropium-Albuterol Nebulize [Duoneb 0.5 mg-3 mg/3 ml Soln] 3 ml INHALATION RT-Q4H PRN each 04/08/25 [Rx] Ipratropium-Albuterol Nebulize [Duoneb 0.5 mg-3 mg/3 ml Soln] 3 ml INHALATION RT-QID #100 each 04/08/25 [Rx] Tamsulosin [Flomax] 0.4 mg PO PC-BRKFST #30 cap 04/08/25 [Rx] predniSONE See Taper PO DIRECTED #30 tab 04/08/25 [Rx] cefuroxime axetiL [Ceftin] 500 mg PO BID 5 Days #10 tab 04/13/25 [Rx] Follow up Appointment(s)/Referral(s): Clark Gastelum MD [STAFF PHYSICIAN] - 06/29/25 9:30 am Dyana Giordano MD [Primary Care Provider] - 04/16/25 2:15 pm Toni Hoffman MD [STAFF PHYSICIAN] - 04/19/25 3:00 pm Ambulatory/Diagnostic Orders: Basic Metabolic Panel [LAB.AMB] Time Frame: 3 Days, Location: None Selected Complete Blood Count w/diff [LAB.AMB] Location: None Selected Patient Instructions/Handouts: Pneumonia (DC) Activity/Diet/Wound Care/Special Instructions: Activity limited until follow-up Follow-up with primary care provider on discharge Follow-up with pulmonary outpatient Follow-up with infectious disease outpatient in 1 to 2 weeks Continue taking medications as prescribed Continue incentive spirometer 10 x an hour while awake Discharge Disposition: HOME SELF-CARE
== END 2025-04-13 15:56 | disposition home or self-care (01) | DRG 177 ==
LOC: EC 18:41 → 4SSUR 20:49 → 2SICU 04-08 14:10 → 3SCARD 04-09 14:21
PROVIDERS: ADMIT Hospitalist; ATTEND Hospitalist
PROC: 0W9930Z Drainage of Right Pleural Cavity with Drainage Device, Percutaneous Approach (ICD-10-PCS; principal; 2025-04-05)
DX: J15.69 Pneumonia due to other Gram-negative bacteria (principal); B46.5 Mucormycosis, unspecified; J96.01 Acute respiratory failure with hypoxia; J93.83 Other pneumothorax; K92.0 Hematemesis; R04.2 Hemoptysis; E27.40 Unspecified adrenocortical insufficiency; I11.0 Hypertensive heart disease with heart failure; I50.9 Heart failure, unspecified; J44.0 Chronic obstructive pulmonary disease with (acute) lower respiratory infection; E11.65 Type 2 diabetes mellitus with hyperglycemia; G25.81 Restless legs syndrome; J44.1 Chronic obstructive pulmonary disease with (acute) exacerbation; E11.9 Type 2 diabetes mellitus without complications; J43.9 Emphysema, unspecified; Z86.711 Personal history of pulmonary embolism; I25.2 Old myocardial infarction; I25.10 Atherosclerotic heart disease of native coronary artery without angina pectoris; Z95.5 Presence of coronary angioplasty implant and graft; F43.10 Post-traumatic stress disorder, unspecified; F41.9 Anxiety disorder, unspecified; T38.0X5A Adverse effect of glucocorticoids and synthetic analogues, initial encounter; G43.909 Migraine, unspecified, not intractable, without status migrainosus; H91.90 Unspecified hearing loss, unspecified ear; K57.90 Diverticulosis of intestine, part unspecified, without perforation or abscess without bleeding; G89.29 Other chronic pain; F43.12 Post-traumatic stress disorder, chronic; M54.9 Dorsalgia, unspecified; K21.9 Gastro-esophageal reflux disease without esophagitis; E78.5 Hyperlipidemia, unspecified; Z79.01 Long term (current) use of anticoagulants; Z88.8 Allergy status to other drugs, medicaments and biological substances; X58.XXXA Exposure to other specified factors, initial encounter; Z87.440 Personal history of urinary (tract) infections; Z86.73 Personal history of transient ischemic attack (TIA), and cerebral infarction without residual deficits; N40.0 Benign prostatic hyperplasia without lower urinary tract symptoms; Z79.02 Long term (current) use of antithrombotics/antiplatelets; Z79.51 Long term (current) use of inhaled steroids; Z79.84 Long term (current) use of oral hypoglycemic drugs; Z79.899 Other long term (current) drug therapy; Z86.16 Personal history of COVID-19; Z86.718 Personal history of other venous thrombosis and embolism; Z87.01 Personal history of pneumonia (recurrent); Z87.891 Personal history of nicotine dependence; Z90.79 Acquired absence of other genital organ(s); Z87.19 Personal history of other diseases of the digestive system
CPT/HCPCS: 36415; 70450; 71045; 71046; 71260; 80048; 80053; 81003; 82271; 82784; 82785; 83036; 83605; 83735; 83880; 84145; 84165; 84484; 85025; 85610; 85730; 86162; 87040; 87070; 87077; 87186; 87205; 87324; 87390; 87449; 87636; 93005; 94640; 94760; 96361; 96365; 96375; 96376; 99291

== ENCOUNTER → 2025-04-16 | Outpatient (CLI) | payer MEDICARE ==
[2025-04-16 15:44] LABS: Basophils % (A) 0.7 %; Eosinophils # (A) 0.13 X 10*3/uL (0.04-0.35); HCT 41.6 % (39.6-50.0); HGB 12.9 g/dL (13.0-17.0); Lymphocytes # (A) 1.49 X 10*3/uL (0.90-5.00); Lymphocytes % (A) 11.1 %; MCH 28.6 pg (27.0-32.0); MCV 92.2 FL (80.0-97.0); Mean Platelet Volume 10.2 FL (9.5-12.2); Monocytes # (A) 0.88 X 10*3/uL (0.20-1.00); Monocytes % (A) 6.6 %; NRBC Per 100 WBC 0 X 10*3/uL (0.00-0.01); Neutrophils # (A) 10.15 X 10*3/uL (1.80-7.70); Neutrophils % (A) 75.9 %; Platelet Count 208 X 10*3/uL (140-440); RBC 4.51 X 10*6/uL (4.40-5.60); RDW 15.2 % (11.5-14.5); WBC 13.38 X 10*3/uL (4.50-10.00)
[2025-04-16 16:07] LABS: BUN/Creat Ratio 31.43 Ratio (12.00-20.00); Calcium 8.2 mg/dL (8.7-10.3); Carbon Dioxide 21.1 mmol/L (21.6-31.8); Chloride 103 mmol/L (96-109); Glucose 180 mg/dL (70-110); Potassium 3.7 mmol/L (3.5-5.5); Sodium 136 mmol/L (135-145)
== END | disposition home or self-care (01) ==
LOC: LABWHC1 08:21
PROVIDERS: ATTEND Family Medicine
DX: D84.9 Immunodeficiency, unspecified (principal); E11.65 Type 2 diabetes mellitus with hyperglycemia; J93.11 Primary spontaneous pneumothorax; J44.1 Chronic obstructive pulmonary disease with (acute) exacerbation; J18.9 Pneumonia, unspecified organism; R19.7 Diarrhea, unspecified
CPT/HCPCS: 36415; 80048; 85025; 87324